=== PATIENT | female | born 1975 | race Caucasian/White ===

== ENCOUNTER 2023-03-04 02:11 | Emergency (ER) | payer MEDICAID, SELFPAY ==
--- NOTE | ~2023-03-04 | CT_ITS ---
EXAMINATION: CT HEAD WITHOUT CONTRAST CLINICAL INFORMATION: Headache for 3 hours COMPARISON: None available. TECHNIQUE: Contiguous axial imaging was performed from the skull base to vertex without intravenous administration of contrast. This CT examination was performed using dose optimization techniques as appropriate, variously including the following: *Automated exposure control *Adjustment of mA and/or kV according to patient size (this includes techniques or standardized protocols for targeted exams where dose is matched to indication/reason for exam; i.e. extremities or head) *Use of iterative reconstruction technique DLP: 522 mGy-cm FINDINGS: There is no evidence of acute intracranial hemorrhage or territorial infarction. No abnormal mass-effect or midline shift is seen. Guy to white matter differentiation is well preserved. No extra-axial fluid collections are identified. The ventricles are normal in size. There is no abnormal attenuation within the brain parenchyma. The osseous structures and soft tissues are normal. The mastoid air cells and visualized portions of the paranasal sinuses are well-aerated. CT/CT head/brain wo IV con IMPRESSION: No acute intracranial pathology.
[2023-03-04 02:23] VITALS: BP 153/112; BP 168/104; PULSE 94; PULSE 96; RESP 18; O2SAT 97; BMI 25.6
[2023-03-04 02:57] VITALS: BP 186/102; PULSE 103; RESP 16; O2SAT 95
[2023-03-04 02:57] LABS: Glucose, Whole Blood 470 mg/dL (60-115)
--- NOTE | 2023-03-04 03:25 | ED_ITS ---
HPI - Headache General Chief Complaint: Headache Stated Complaint: LALA,HYPERVENTILATING PER EMS Time Seen by Provider: 03/04/23 03:10 Source: patient Mode of arrival: ambulatory Limitations: no limitations History of Present Illness HPI Narrative: 47-year-old female with history of hypertension, diabetes mellitus myocardial infarction who presents emergency department for evaluation of headache. Patient states she was taking shower around 21:00 hours when she had a sudden onset of right-sided numbness and loss of vision in her right eye. She states she then developed a left-sided headache. She states that the numbness and visual change resolved but the headache has persisted. She describes the headache as a constant, throbbing sensation which is 10/10. She states she had a similar presentation April 2022 when she was in the [facility], she states she was told that she had a Tylenol overdose and then a heart attack while she was in the hospital. She denied fever, chills, stiff neck, chest pain, shortness of breath. She does have nausea but no vomiting. Patient states she takes metformin 1000 mg once a day for her diabetes but does not check her sugar on a regular basis. Patient's point of care glucose was 470. Related Data Previous Rx's Medication Instructions Recorded [id number]-hbffjylbevxqb-mipyqbam 250 2 tab PO Q6H PRN headache #20 tabs 03/04/23 mg-250 mg-65 mg tablet (Excedrin Migraine) diphenhydramine HCl 25 mg capsule 50 mg (2 x 25 mg) PO Q6H PRN 03/04/23 headache, nausea, vomiting #30 caps metoclopramide HCl 10 mg tablet 10 mg PO Q6H PRN nausea and 03/04/23 (Reglan) vomiting #14 tabs Allergies Allergy/AdvReac Type Severity Reaction Status Date / Time No Known Allergies Allergy Verified 03/04/23 02:51 Review of Systems 2 Review of Systems: Yes all other systems are reviewed and are negative [facility] Past Medical History [facility] Narrative: Past medical history: Diabetes mellitus, hypertension, myocardial infarction. Social history: She denies tobacco, alcohol and drug use. Social History Social History Advance Directives: No Advance Directives Information Provided: Yes Physical Exam 2 Vital Signs: Vital Signs: Last Vital Signs Temp 98.4 F 03/04/23 06:08 Pulse 76 03/04/23 06:08 Resp 17 03/04/23 06:08 BP 133/65 03/04/23 06:08 Pulse Ox 98 03/04/23 06:08 O2 Del Method Room Air 03/04/23 06:08 BMI result Body Mass Index 25.6 Vital signs revealed an elevated pulse of 103, elevated blood pressure of 186/102 exam General: Awake, patient appears to be in distress secondary to her headache Head: Normocephalic, atraumatic, no tenderness palpation over her temporal region EENT: PERRL, Lids normal, sclera normal, conjunctiva normal, nose normal , ears normal, throat without erythema or exudates Neck: Supple, no adenopathy, no trachea midline or C-spine tenderness Lung: breath sounds symmetric, no wheezing, rales or rhonchi Chest: symmetric movement, nontender Heart: regular rate and rhythm, normal S1, S2 no murmurs or rubs Abdomen: soft, non-tender, nondistended, normal bowel sounds Back: no vertebral tenderness, no CVAT Extremities: no deformities, moves all extremities symmetrically Skin: no rashes, no lesion, normal color and warmth Neuro: Awake, alert, oriented, normal speech, cranial nerves intact, moves all extremities symmetrically Psych: Pleasant, cooperative Medications Administered Discontinued Medications Generic Name Dose Route Start Last Admin Trade Name Freq PRN Reason Stop Dose Admin Diphenhydramine HCl 50 mg 03/04/23 03:24 03/04/23 04:03 Diphenhydramine Hcl 50 Mg/Ml Vial IVPUSH 03/04/23 03:25 50 mg ONCE STA Administration Sodium Chloride 1,000 mls @ 999 mls/hr 03/04/23 03:12 03/04/23 05:34 Ns IV 03/04/23 04:12 Infused .Q1H1M STA Infusion Insulin Human Regular 10 unit 03/04/23 05:05 03/04/23 05:36 Insulin Regular, Human 100 Unit/Ml 3 Ml Vial IVPUSH 03/04/23 05:06 10 unit ONCE ONE Administration Metoclopramide HCl 10 mg 03/04/23 03:24 03/04/23 04:03 Metoclopramide Hcl 10 Mg/2 Ml Vial IVPUSH 03/04/23 03:25 10 mg ONCE STA Administration Morphine Sulfate 4 mg 03/04/23 03:24 03/04/23 04:03 Morphine Sulfate 4 Mg/Ml Cartridge IVPUSH 03/04/23 03:25 4 mg ONCE STA Administration Protocol Medical Decision Making Medical Decision Making [facility] Narrative: 47-year-old female with history of diabetes mellitus hypertension, myocardial infarction who presents emergency department for evaluation of headache that came on suddenly at 21:30 hours while she was taking shower. She states the headache was preceded by right-sided body numbness with loss of vision in right eye. The headache is been a constant left-sided throbbing sensation associated with nausea and is 10/10 . Patient's visual change and numbness on the right side of her body is resolved. She states she had a similar episode April 2023 when she was in the state [facility]. physical examination did reveal an elevated pulse and elevated blood pressure otherwise exam was unremarkable pain. Following evaluation was ordered by me: CBC, CMP, CRP, ESR, lipase, PT / INR, PTT, CT scan of the brain without IV contrast. Patient was ordered to get normal saline x1 L, morphine 4 mg IV, Reglan 10 mg IV and Benadryl 50 mg IV 05:10 patient's point of care glucose was elevated at 455 therefore She was given 2 L of normal saline IV and 10 units of regular insulin IV. Point of care glucose is now 300. patient's headache resolved with the above treatment. Patient was advised to follow-up with her PCP to discuss further management of her hyperglycemia. her headache is most likely a migraine-like headache she will be started on the following headache regimen: Excedrin migraine 2 pills, Benadryl 50 mg and Reglan 10 mg every 6 hours as needed for headache she was given printed and verbal instructions and discharged home. Differential Diagnosis Differential Diagnoses: The differential diagnosis associated with the presentation includes differential diagnosis includes was not limited to stroke, intracranial hemorrhage, giant cell arteritis, migraine headache, electrolyte abnormality, anemia, Admission/Observation Consideration of admission/observation: Escalation of care including admission/observation considered Lab Data MDM Lab Attestation statement: I reviewed the patient's lab results. my independent interpretation patient's laboratory evaluation as follows: Unremarkable except for an elevated glucose of 455 03/04/23 04:28 03/04/23 04:28 Labs: Lab Results 03/04/23 03/04/23 Range/Units 02:53 04:28 WBC 9.4 (4.8-10.8) X10*3/uL RBC 4.69 (4.20-5.50) X10*6/uL Hgb 13.8 (12.0-16.0) g/dl Hct 40.5 (37.0-47.0) % MCV 86.4 (80.0-98.0) fL MCH 29.4 (27.0-33.0) pg MCHC 34.1 (31.0-35.0) g/dl RDW 12.5 (11.0-16.0) % Plt Count 229 (160-400) X10*3/uL MPV 11.7 (9.4-12.3) fL Immature Gran % (Auto) 0.2 (0.0-0.4) % Neut % (Auto) 80.4 H (45-73) % Lymph % (Auto) 11.9 L (20-40) % [place] % (Auto) 6.4 (2-11) % Eos % (Auto) 0.9 (0-4) % Baso % (Auto) 0.2 (0-2) % Lymph # (Auto) 1.1 L (1.2-4.9) X10*3/uL [place] # (Auto) 0.6 (0.1-1.2) X10*3/uL Eos # (Auto) 0.1 (0.0-0.4) X10*3/uL Baso # (Auto) 0.0 (0.0-0.2) X10*3/uL Abs Immat Gran (auto) 0.02 (0.00-0.03) X10*3/uL Absolute Neuts (auto) 7.6 (2.0-8.3) x10*3/uL Absolute Nucleated RBC 0.000 (0.0-0.012) X10*3/uL Nucleated RBC % (auto) 0.0 (0.0-0.2) /100WBC ESR 5 (0-20) MM/HR PT 10.7 L (11.1-13.3) SEC INR 0.9 (0.9-1.1) APTT 28.2 (26.0-36.4) SEC Sodium 133 L (135-145) mmol/L Potassium 3.9 (3.3-5.1) mmol/L Chloride 101 (96-108) mmol/L Carbon Dioxide 20 L (22-29) mmol/L Anion Gap 16 (12-20) BUN 13 (9-16) mg/dL Creatinine 0.94 (0.5-1.4) mg/dL Estim Creat Clear Calc 66.1 Estimated GFR > 60 POC Glucose 470 H* (60-115) mg/dL Random Glucose 455 H* (60-115) mg/dL Calcium 9.0 (8.4-10.2) mg/dL Total Bilirubin 0.3 (0.0-1.0) mg/dL AST 13 (5-31) U/L ALT 15 (0-31) U/L Alkaline Phosphatase 129 H (39-117) U/L C-Reactive Protein 0.55 H (< or = 0.50) mg/dL Total Protein 6.4 L (6.5-8.0) g/dL Albumin 3.4 L (3.5-5.0) g/dL Lipase 34 (8-78) U/L Independent Interpretation I performed an independent interpretation of an: CT Scan Interpretation: CT head/brain wo IV con IMPRESSION: No acute intracranial pathology. Dictated By: Tang Gtz MD Radiology Impression Discussion of test interpretation with radiology: I have reviewed the radiologist's reading. Radiologist Impression: CT head/brain wo IV con IMPRESSION: No acute intracranial pathology. Dictated By: Tang Gtz MD Prescription Management I considered prescription management with: Other ( Migraine medications) Chronic Conditions Patient?s care impacted by: Diabetes Discharge Plan Discharge Clinical Impression: Acute hyperglycemia, Acute dehydration Migraine Qualifiers: Migraine type: unspecified Status migrainosus presence: without status migrainosus Intractability: not intractable Qualified Code(s): G43.909 - Migraine, unspecified, not intractable, without status migrainosus Patient Disposition: Home, Self-Care Instructions: Diabetic Hyperglycemia (ED) Additional Instructions: your blood work was unremarkable except for an elevated blood sugar of 470. You need to stay on a diabetic diet, increase your fluid intake and take your metformin as prescribed by your providers. It is important that you follow-up with your doctor to get further treatment of your diabetes. The CT scan of your head was normal which is reassuring. Your headache symptoms are consistent with a migraine headache. I want you to take the following 3 medications together every 6 hours as needed for headache, nausea or vomiting. Reglan (metoclopramide) in 10 mg, 1 pill Benadryl 25 mg, 2 pills Excedrin migraine, 2 pills. After you take these medications, lie down in a dark quiet room and try to fall asleep. These medications will make you sleepy, do not drive or work after taking these medications. Follow-up with your doctor in 2 days. Please return to the emergency department if your symptoms get worse or if you develop any symptoms that are concerning to you. Prescriptions: New diphenhydramine HCl 25 mg capsule 50 mg PO Q6H PRN (Reason: headache, nausea, vomiting) Qty: 30 0RF metoclopramide HCl [Reglan] 10 mg tablet 10 mg PO Q6H PRN (Reason: nausea and vomiting) Qty: 14 0RF Excedrin Migraine 250-250-65 mg tablet 2 tab PO Q6H PRN (Reason: headache) Qty: 20 0RF
[2023-03-04] MEDS: 0.9 % Sodium Chloride 1,000 ML 999 ML IV ×2 (03:45→06:34)
[2023-03-04] MEDS: Metoclopramide HCl 10 MG/2 ML VIAL IVPUSH (04:03)
[2023-03-04] MEDS: Morphine Sulfate 4 MG/ML CARTRIDGE IVPUSH (04:03)
[2023-03-04] MEDS: diphenhydrAMINE HCL 50 MG/ML VIAL IVPUSH (04:03)
[2023-03-04 04:32] LABS: MANUAL DIFF FLAG NO
[2023-03-04 04:33] LABS: Basophils Percent Auto 0.2 % (0-2); Eosinophils Absolute Auto 0.1 X10*3/uL (0.0-0.4); Eosinophils Percent Auto 0.9 % (0-4); Hematocrit 40.5 % (37.0-47.0); Hemoglobin 13.8 g/dl (12.0-16.0); Imm Gran Abs Auto 0.02 X10*3/uL (0.00-0.03); Imm Gran Pct Auto 0.2 % (0.0-0.4); Lymphocytes Absolute Auto 1.1 X10*3/uL (1.2-4.9); Lymphocytes Percent Auto 11.9 % (20-40); Mean Corpuscular HGB Conc 34.1 g/dl (31.0-35.0); Mean Corpuscular Hemoglobin 29.4 pg (27.0-33.0); Mean Corpuscular Volume 86.4 fL (80.0-98.0); Mean Platelet Volume 11.7 fL (9.4-12.3); Monocytes Absolute Auto 0.6 X10*3/uL (0.1-1.2); Monocytes Percent Auto 6.4 % (2-11); Neutrophils Absolute Auto 7.6 x10*3/uL (2.0-8.3); Neutrophils Percent Auto 80.4 % (45-73); Platelet Count 229 X10*3/uL (160-400); Red Blood Count 4.69 X10*6/uL (4.20-5.50); Red Cell Distribution Width 12.5 % (11.0-16.0); White Blood Count 9.4 X10*3/uL (4.8-10.8)
[2023-03-04 04:39] LABS: INTERNATIONAL NORM RATIO 0.9 (0.9-1.1); Prothrombin Time 10.7 SEC (11.1-13.3)
[2023-03-04 04:42] LABS: Partial Thromboplastin Time 28.2 SEC (26.0-36.4)
[2023-03-04 04:54] LABS: Alanine Aminotransferase 15 U/L (0-31); Albumin Level 3.4 g/dL (3.5-5.0); Alkaline Phosphatase 129 U/L (39-117); Anion Gap 16 (12-20); Aspartate Amino Transferase 13 U/L (5-31); Bilirubin Total 0.3 mg/dL (0.0-1.0); Blood Urea Nitrogen 13 mg/dL (9-16); C Reactive Protein 0.55 mg/dL (< or = 0.50); Carbon Dioxide 20 mmol/L (22-29); Chloride 101 mmol/L (96-108); Creatinine Clr Calc Pharmacy 66.1; Estimated Glomerular Filt Rate > 60; Glucose Random 455 mg/dL (60-115); Lipase 34 U/L (8-78); Potassium 3.9 mmol/L (3.3-5.1); Sodium 133 mmol/L (135-145); Total Protein 6.4 g/dL (6.5-8.0)
[2023-03-04 05:12] LABS: Erythrocyte Sedimentation Rate 5 MM/HR (0-20)
[2023-03-04] MEDS: Insulin Regular, Human 100 UNIT/ML 3 ML VIAL 10 UNIT IVPUSH (05:36)
[2023-03-04 06:08] VITALS: BP 133/65; PULSE 76; RESP 17; TEMP 36.9; O2SAT 98
[2023-03-04 06:31] LABS: Glucose, Whole Blood 304 mg/dL (60-115)
== END 2023-03-04 06:49 | disposition home or self-care (01) ==
PROVIDERS: Emergency Provider Emergency Medicine Emergency Medical Services
DX: G43.909 Migraine, unspecified, not intractable, without status migrainosus (principal); E11.65 Type 2 diabetes mellitus with hyperglycemia; E86.0 Dehydration; I10 Essential (primary) hypertension; I25.2 Old myocardial infarction
CPT/HCPCS: 36415; 70450; 80053; 82947; 83690; 85025; 85610; 85652; 85730; 86140; 96361; 96374; 96375; 99284; J1200; J2270; J2765

== ENCOUNTER 2023-03-24 20:05 | Observation (INO) | payer MEDICAID, SELFPAY ==
--- NOTE | ~2023-03-24 | MR_ITS ---
EXAMINATION: MR head/brain wo con CLINICAL INFORMATION: Reason for Exam Intermittent vision changes COMPARISON: CT head 03/24/2023. TECHNIQUE: Unenhanced MRI of the brain. FINDINGS: Abnormal elevated diffusion-weighted signal intensity and associated decreased apparent diffusion coefficient maps is noted in the cortex of the parasagittal left occipital lobe T2 prolongation of the same left occipital lobe cortex is noted on FLAIR and T2 FSE images. No subcortical T2 prolongation is noted in this region. Elsewhere in the brain, a small number scattered generally rounded punctate subcortical and periventricular white matter T2 hyperintensities are identified. Vague T2 hyperintensity over an approximate 5 mm region is noted anteriorly within the left thalamus and a similar focus measuring 4 mm in diameter is present in the posterior right putamen. Mild patchy T2 hyperintensities are present within the srinivas. No lesions of the middle cerebellar peduncles. No perivenular lesions. Susceptibility weighted images demonstrate no evidence of acute or chronic hemorrhage within the brain parenchyma. The craniocervical junction cerebellar tonsils are normal in appearance. Normal appearance of the pituitary. No suspicious marrow abnormalities identified. Normal flow-related signal intensity is visualized in the major intracranial vessels and dural sinuses. MR/MR head/brain wo con IMPRESSION: 1. Cortical signal abnormality within the parasagittal left occipital lobe. These findings may represent either an acute cortical infarct or posterior reversible encephalopathy syndrome (PRES). The abnormalities are confined solely to the occipital cortex with no subcortical extension. The purely cortical involvement is atypical for a territorial infarct. PRES does not typically result in decreased apparent diffusion coefficients but may be due so as is present in the current findings. Overall, findings do not have the typical appearance of a territorial infarct and are suspicious for PRES. Findings could also represent cortical edema related to an otherwise nonvisualized adjacent cortical vein thrombosis or atypical presentation of infection. Regarding imaging management, consider short-term follow-up imaging to assess stability. PRES may demonstrate complete complete resolution of acute imaging findings on follow-up exams. 2. Small number of scattered indeterminate punctate foci of signal alteration (T2 hyperintensity) throughout the brain. This finding may represent mild chronic microangiopathic ischemic changes.
--- NOTE | ~2023-03-24 | CT_ITS ---
EXAMINATION: CT HEAD WITHOUT CONTRAST CLINICAL INFORMATION: Vision changes. COMPARISON: None available. TECHNIQUE: Contiguous axial imaging was performed from the skull base to vertex without intravenous administration of contrast. This CT examination was performed using dose optimization techniques as appropriate, variously including the following: *Automated exposure control *Adjustment of mA and/or kV according to patient size (this includes techniques or standardized protocols for targeted exams where dose is matched to indication/reason for exam; i.e. extremities or head) *Use of iterative reconstruction technique DLP: 542 mGy-cm FINDINGS: The lateral, third and fourth ventricles are normally outlined. The cortical sulci and basal cisterns are normally outlined as well. There is no acute territorial defect, or midline shift. There are two serpiginous areas of hyperdensity left occipital lobe on the left not definitively identified previously. The extra-axial spaces are unremarkable. Calvarium: Intact. Maxillofacial sinuses and mastoids: Clear as visualized. CT/CT head/brain wo IV con IMPRESSION: Two serpiginous areas of hyperdensity left occipital lobe appear to be vascular possibly venous structures. Consider MRI evaluation if the patient's symptoms persist. No other significant abnormality identified.
--- NOTE | ~2023-03-24 | CT_ITS ---
EXAMINATION: Unenhanced CT the head; IV contrast enhanced CT angiography of the head and neck; delayed IV contrast-enhanced CT the head CLINICAL INFORMATION: visual defects COMPARISON: MRI brain 03/25/2023, CT head 02/21/2023, CT head 03/04/2023 TECHNIQUE: Routine unenhanced CT the head with multiple coronal and sagittal reformatted images; IV contrast enhanced CT angiography of the head and neck with multiple 3-D reformatted angiographic thick section MIPS images processed on the technologist workstation under concurrent supervision; delayed IV contrast-enhanced CT the head. Vascular stenoses are made with reference to the NASCET criteria less otherwise specified. This CT examination was performed using dose optimization techniques as appropriate, variously including the following: *Automated exposure control *Adjustment of mA and/or kV according to patient size (this includes techniques or standardized protocols for targeted exams where dose is matched to indication/reason for exam; i.e. extremities or head) *Use of iterative reconstruction technique Intravenous Contrast: Omnipaque 350 100 mL DLP: 1929 mGy-cm FINDINGS: Unenhanced and IV contrast-enhanced CT the head: Vague curvilinear hyperdensity is noted in the parasagittal left occipital lobe (series 3 image 23, series 3 image 26). Findings may represent minimal gyriform petechial hemorrhage or subarachnoid hemorrhage. Findings are stable compared with 02/22/2023. Findings are present in the region of cortical edema noted on the comparison MRI of the brain. Elsewhere, no focal parenchymal lesions of the brain or additional abnormal extra-axial fluid collections are noted. The ventricles and sulci are normal in size and configuration. The orbits and globes are normal in appearance. No significant opacification of the visualized paranasal sinuses, mastoid air cells and middle ear cavities. CT angiography neck: Mild scattered calcific plaques within the transverse aorta. Conventional branching anatomy of the great vessels in relation to the transverse aorta. Mild nonocclusive bilateral carotid bulb calcific atherosclerotic plaques are visualized. The cervical vertebral artery system is patent. The left vertebral artery is dominant. CT angiography head: Mild focal stenosis of the distal basilar artery is present. Nonocclusive segmental calcific plaques are present within the cavernous portions of the internal carotid arteries. Moderate focal stenosis of the proximal A1 segment of the left anterior cerebral artery is visualized. No intracranial occlusions or aneurysms identified. Incidentally visualized lung bases are clear. The thyroid is normal in appearance. No cervical lymphadenopathy. CT/CT angio head neck IMPRESSION: Unenhanced and IV contrast-enhanced CT the head: *Minimal curvilinear hyperdensities within the parasagittal left occipital lobe which may represent gyriform petechial hemorrhage or minimal sulcal subarachnoid hemorrhage. Findings are unchanged compared with 02/22/2023 and are new compared with 03/04/2023. Of note, MRI of the brain 03/24/2023 demonstrated findings suspicious for cortical edema in these same region likely related to posterior reversible encephalopathy syndrome (PRES). Per report, the clinical presentation for the current episode of care included a hypertensive crisis which may have been the etiology of the acute presentation of PRES. CT angiography head: *No intracranial large vessel occlusions. Mild intracranial atherosclerosis including nonocclusive segmental calcific plaque of the cavernous portions of the internal carotid arteries and mild focal stenosis of the distal basilar artery. CT angiography neck: *Mild nonocclusive bilateral carotid bulb mixed calcific and noncalcific nonulcerative plaque. No occlusive lesions within the cervical carotid and vertebral artery systems. This critical result was discussed with Noelle SALINAS by telephone at 03/26/2023 11:55 AM and it was ascertained that the content and urgency of the report was understood at the time of direct communication.
[2023-03-24 20:08] VITALS: BP 228/118; PULSE 94; RESP 16; TEMP 36.4; O2SAT 96; BMI 30.7
--- NOTE | 2023-03-24 20:12 | ED_ITS ---
HPI - General Adult General Chief complaint: General Medical Stated complaint: headache, loss of vision, dizzy Time Seen by Provider: 03/24/23 20:23 Source: patient Mode of arrival: ambulatory Limitations: language barrier ([place]agu[place] speaking only, automotive parts interpreter used) History of Present Illness HPI narrative: 47-year-old female with a past medical history of hypertension, diabetes mellitus, myocardial infarction, who presents emergency department for evaluation of intermittent visual change in her right eye. Patient states that she has been seeing bright lights in the peripheral area of her right eye which has been intermittent and will resolved but come back. She states that prior to coming to the emergency department she again developed bright lights in the peripheral vision of her right eye only with no blurred vision. She also states she is feeling dizzy and feels unsteady. She also denied headache. Patient states that she takes metformin for her diabetes and lisinopril for her hypertension, she was not compliant with this medication for 1-2 days but states she restarted medicine today. Patient has noted increased urinary frequency and increased thirst but denies dysuria. The patient was seen in the emergency department by me on 03/04/2023 for headache with right-sided body numbness and loss of vision in her right eye. At that ED visit the patient was diagnosed with migraine headache, dehydration and hyperglycemia with a glucose of 470. Patient's workup at that time did include a CT scan of the brain which was negative. Related Data Previous Rx's Medication Instructions Recorded dnbevij-camijvkhgtmjb-enupzrxl 250 2 tab PO Q6H PRN headache #20 tabs 03/04/23 mg-250 mg-65 mg tablet (Excedrin Migraine) diphenhydramine HCl 25 mg capsule 50 mg (2 x 25 mg) PO Q6H PRN 03/04/23 headache, nausea, vomiting #30 caps metoclopramide HCl 10 mg tablet 10 mg PO Q6H PRN nausea and 03/04/23 (Reglan) vomiting #14 tabs Allergies Allergy/AdvReac Type Severity Reaction Status Date / Time No Known Allergies Allergy Verified 03/04/23 02:51 Review of Systems 2 Review of Systems: Yes all other systems are reviewed and are negative [facility] Past Medical History [facility] Narrative: Past medical history: Diabetes mellitus, hypertension, myocardial infarction, migraine headache. Surgical history: Cholecystectomy. Social history: She denies tobacco, alcohol and drug use. Social History Social History Smoked in Last 30 Days: No Use of substances other than those prescribed or required for medical reasons: No Advance Directives: No Advance Directives Information Provided: No Patient : No Physical Exam ED Vital Signs: Vital Signs - 24 hr 03/24/23 20:08 03/24/23 20:38 03/24/23 21:59 Temperature 97.6 F 97.9 F 97.9 F Pulse Rate 94 78 83 Respiratory Rate 16 21 H 22 H Blood Pressure 228/118 H 223/130 H 171/88 H Pulse Oximetry 96 99 97 Oxygen Delivery Method Room Air Room Air Room Air BMI result Body Mass Index 30.7 Vital signs initially revealed an elevated systolic and diastolic blood pressure with improved over time Exam General: Awake, alert in no distress Head: Normocephalic, atraumatic EENT: PERRL, Lids normal, sclera normal, conjunctiva normal, nose normal , ears normal, throat without erythema or exudates Neck: Supple, no adenopathy, no trachea midline or C-spine tenderness Lung: breath sounds symmetric, no wheezing, rales or rhonchi Chest: symmetric movement, nontender Heart: regular rate and rhythm, normal S1, S2 no murmurs or rubs Abdomen: soft, non-tender, nondistended, normal bowel sounds Back: no vertebral tenderness, no CVAT Extremities: no deformities, moves all extremities symmetrically Skin: no rashes, no lesion, normal color and warmth Neuro: Awake, alert, oriented, normal speech, cranial nerves intact, moves all extremities symmetrically Psych: Pleasant, cooperative Course Course Course Narrative: This is an RME: Additional HPI, ROS, PE not included below will be deferred to primary provider. Patient is a 47 year old female reporting right peripheral vision loss x 2 days, seeing flashing light, denies eye pain or trauma. Dizziness described as feeling off balance. Symptoms worsening since onset. reports that she initially thought this was a side effect of the medications she was prescribed 1 week ago, does not recall the name. seen in the emergency department 03/04/2023 with a similar presentation sudden onset of vision loss to the right eye, although she had a headache at that time which she denies currently. had a CT of the head which was unremarkable. She was prescribed Benadryl, Reglan, and Excedrin migraine. She is noted to be hypertensive 228/118 Plan: patient brought back to main ED Medications Administered Discontinued Medications Generic Name Dose Route Start Last Admin Trade Name Charly PRN Reason Stop Dose Admin Diphenhydramine HCl 50 mg 03/24/23 21:27 03/24/23 21:50 Diphenhydramine Hcl 50 Mg/Ml Vial IVPUSH 03/24/23 21:28 50 mg ONCE STA Administration Sodium Chloride 1,000 mls @ 999 mls/hr 03/24/23 21:27 03/24/23 21:49 Ns IV 03/24/23 22:27 999 mls/hr .Q1H1M STA Administration Sodium Chloride 1,000 mls @ 999 mls/hr 03/24/23 21:29 03/24/23 21:50 Ns IV 03/24/23 22:29 999 mls/hr .Q1H1M STA Administration Insulin Human Regular 10 unit 03/24/23 21:27 03/24/23 21:50 Insulin Regular, Human 100 Unit/Ml 3 Ml Vial IVPUSH 03/24/23 21:28 10 unit ONCE ONE Administration Ketorolac Tromethamine 15 mg 03/24/23 21:27 03/24/23 21:50 Ketorolac Tromethamine 15 Mg/Ml Vial IVPUSH 03/24/23 21:28 15 mg ONCE STA Administration Metoclopramide HCl 10 mg 03/24/23 21:27 03/24/23 21:50 Metoclopramide Hcl 10 Mg/2 Ml Vial IVPUSH 03/24/23 21:28 10 mg ONCE STA Administration Medical Decision Making Medical Decision Making [facility] Narrative: 47-year-old female with a past medical history of hypertension, diabetes mellitus, myocardial infarction, who presents emergency department for evaluation of intermittent bright lights in the peripheral vision of her right eye which is been on off for several days, dizzy and feels unsteady. She also denied headache. Patient states that she takes metformin for her diabetes and lisinopril for her hypertension, she was not compliant with this medication for 1-2 days but states she restarted medicine today. Patient has noted increased urinary frequency and increased thirst but denies dysuria. Patient has similar presentation on 03/04/2023 and was diagnosed with hyperglycemia and migraine headache. Patient's physical examination initially did reveal an elevated systolic and diastolic blood pressures which have improved over time. Patient's physical examination was unremarkable. Following evaluation was ordered: CBC, CMP, urinalysis. At this time, I suspect the patient's visual changes are consistent with an ocular migraine. Patient also had an elevated point of care glucose greater than 500. Patient was ordered to get normal saline IV x2 L and is 10 units IV. Patient's point of care glucose will be repeated 1 hour. Patient's ocular migraine was treated with Benadryl 50 mg IV, Toradol 15 mg IV and regular and 10 units IV. 22:48 Patient is feeling better after the above treatment. I did discuss the patient's presentation with the covering hospitalist, Dr. Nielsen and he will admit the patient for further treatment. Differential Diagnosis Differential Diagnoses: The differential diagnosis associated with the presentation includes Differential diagnosis includes was not limited to hyperglycemia, dehydration, ocular migraine Admission/Observation Consideration of admission/observation: Escalation of care including admission/observation considered Lab Data MDM Lab Attestation statement: I reviewed the patient's lab results. My interpretation patient's laboratory evaluation is as follows: CBC was normal. Glucose elevated 595, alk-phos elevated 154, 03/24/23 20:53 03/24/23 20:53 Labs: Lab Results 03/24/23 03/24/23 Range/Units 20:33 20:53 WBC 6.4 (4.8-10.8) X10*3/uL RBC 4.45 (4.20-5.50) X10*6/uL Hgb 13.1 (12.0-16.0) g/dl Hct 38.3 (37.0-47.0) % MCV 86.1 (80.0-98.0) fL MCH 29.4 (27.0-33.0) pg MCHC 34.2 (31.0-35.0) g/dl RDW 12.2 (11.0-16.0) % Plt Count 272 (160-400) X10*3/uL MPV 11.2 (9.4-12.3) fL Immature Gran % (Auto) 0.3 (0.0-0.4) % Neut % (Auto) 70.3 (45-73) % Lymph % (Auto) 20.3 (20-40) % [place] % (Auto) 6.6 (2-11) % Eos % (Auto) 2.0 (0-4) % Baso % (Auto) 0.5 (0-2) % Lymph # (Auto) 1.3 (1.2-4.9) X10*3/uL [place] # (Auto) 0.4 (0.1-1.2) X10*3/uL Eos # (Auto) 0.1 (0.0-0.4) X10*3/uL Baso # (Auto) 0.0 (0.0-0.2) X10*3/uL Abs Immat Gran (auto) 0.02 (0.00-0.03) X10*3/uL Absolute Neuts (auto) 4.5 (2.0-8.3) x10*3/uL Absolute Nucleated RBC 0.000 (0.0-0.012) X10*3/uL Nucleated RBC % (auto) 0.0 (0.0-0.2) /100WBC Sodium 133 L (135-145) mmol/L Potassium 3.8 (3.3-5.1) mmol/L Chloride 98 (96-108) mmol/L Carbon Dioxide 25 (22-29) mmol/L Anion Gap 14 (12-20) BUN 14 (9-16) mg/dL Creatinine 1.04 (0.5-1.4) mg/dL Estim Creat Clear Calc 65.3 Estimated GFR 57 POC Glucose 504 H* (60-115) mg/dL Random Glucose 595 H* (60-115) mg/dL Calcium 9.2 (8.4-10.2) mg/dL Total Bilirubin 0.2 (0.0-1.0) mg/dL AST 12 (5-31) U/L ALT 12 (0-31) U/L Alkaline Phosphatase 154 H (39-117) U/L Total Protein 7.0 (6.5-8.0) g/dL Albumin 3.8 (3.5-5.0) g/dL Critical Care Time Critical Care Time Critical Care Time: Yes Total Critical Care Time: 35 Attestation: Critical Care: The patient was critically ill with a high probability of imminent or life threatening deterioration. I spent greater than 30 minutes of discontinuous time evaluating the patient,delivering critical care at the bedside, discussing and evaluating pertinent data with consultants. Critical care time does not include time spent performing separately billable procedures or teaching. Total time spent performing critical care was 45 minutes. Discharge Plan Discharge Patient Disposition: Admitted As Inpatient Prescriptions: No Action diphenhydramine HCl 25 mg capsule 50 mg PO Q6H PRN (Reason: headache, nausea, vomiting) Qty: 30 0RF metoclopramide HCl [Reglan] 10 mg tablet 10 mg PO Q6H PRN (Reason: nausea and vomiting) Qty: 14 0RF Excedrin Migraine 250-250-65 mg tablet 2 tab PO Q6H PRN (Reason: headache) Qty: 20 0RF
[2023-03-24 20:38] VITALS: BP 223/130; PULSE 78; RESP 21; TEMP 36.6; O2SAT 99
[2023-03-24 20:43] LABS: Glucose, Whole Blood 504 mg/dL (60-115)
--- NOTE | 2023-03-24 20:56 | PC.NURSE ---
Pt aox4 reporting dizziness x 1 week. Reports right eye vision change with flourescent lights at time. Pt reports not taking any medications since yesterday as pt was not feeling well. Current POC in the 500's, BP 204/103. Denies chest pain, sob, headache, N/V/D. NSR on monitor with HR 80. 20G IV line established on the R FA. Labs drawn and sent. made aware.
[2023-03-24 20:59] LABS: MANUAL DIFF FLAG NO
[2023-03-24 21:00] LABS: Basophils Percent Auto 0.5 % (0-2); Eosinophils Absolute Auto 0.1 X10*3/uL (0.0-0.4); Hematocrit 38.3 % (37.0-47.0); Hemoglobin 13.1 g/dl (12.0-16.0); Imm Gran Abs Auto 0.02 X10*3/uL (0.00-0.03); Imm Gran Pct Auto 0.3 % (0.0-0.4); Lymphocytes Absolute Auto 1.3 X10*3/uL (1.2-4.9); Lymphocytes Percent Auto 20.3 % (20-40); Mean Corpuscular HGB Conc 34.2 g/dl (31.0-35.0); Mean Corpuscular Hemoglobin 29.4 pg (27.0-33.0); Mean Corpuscular Volume 86.1 fL (80.0-98.0); Mean Platelet Volume 11.2 fL (9.4-12.3); Monocytes Absolute Auto 0.4 X10*3/uL (0.1-1.2); Monocytes Percent Auto 6.6 % (2-11); Neutrophils Absolute Auto 4.5 x10*3/uL (2.0-8.3); Neutrophils Percent Auto 70.3 % (45-73); Platelet Count 272 X10*3/uL (160-400); Red Blood Count 4.45 X10*6/uL (4.20-5.50); Red Cell Distribution Width 12.2 % (11.0-16.0); White Blood Count 6.4 X10*3/uL (4.8-10.8)
[2023-03-24 21:20] LABS: Alanine Aminotransferase 12 U/L (0-31); Albumin Level 3.8 g/dL (3.5-5.0); Alkaline Phosphatase 154 U/L (39-117); Anion Gap 14 (12-20); Aspartate Amino Transferase 12 U/L (5-31); Bilirubin Total 0.2 mg/dL (0.0-1.0); Blood Urea Nitrogen 14 mg/dL (9-16); Calcium 9.2 mg/dL (8.4-10.2); Carbon Dioxide 25 mmol/L (22-29); Chloride 98 mmol/L (96-108); Creatinine Clr Calc Pharmacy 65.3; Estimated Glomerular Filt Rate 57; Glucose Random 595 mg/dL (60-115); Potassium 3.8 mmol/L (3.3-5.1); Sodium 133 mmol/L (135-145)
--- NOTE | 2023-03-24 21:28 | ECG_ITS ---
Test Reason : HTN Blood Pressure : / mmHG Vent. Rate : 083 BPM Atrial Rate : 083 BPM P-R Int : 122 ms QRS Dur : 076 ms QT Int : 376 ms P-R-T Axes : -12 -03 -11 degrees QTc Int : 441 ms Normal sinus rhythm Minimal voltage criteria for LVH, may be normal variant ( R in aVL ) ST elevation in Septal leads Abnormal ECG No previous ECGs available Referred By: [place] Electronically Signed By:JONE RODGERS MD
[2023-03-24] MEDS: 0.9 % Sodium Chloride 1,000 ML 999 ML IV ×2 (21:49→21:50)
[2023-03-24] MEDS: Metoclopramide HCl 10 MG/2 ML VIAL IVPUSH (21:50)
[2023-03-24] MEDS: diphenhydrAMINE HCL 50 MG/ML VIAL IVPUSH (21:50)
[2023-03-24] MEDS: Insulin Regular, Human 100 UNIT/ML 3 ML VIAL 10 UNIT IVPUSH (21:50)
[2023-03-24] MEDS: Ketorolac Tromethamine 15 MG/ML VIAL IVPUSH (21:50)
[2023-03-24 21:59] VITALS: BP 171/88; PULSE 83; RESP 22; TEMP 36.6; O2SAT 97
--- NOTE | 2023-03-24 23:29 | P.HPHOSP_ITS ---
History of Present Illness Date of Service: 03/24/23 Chief Complaint: Intermittent visual changes This is a 47-year-old female with pertinent history of cki-fdzklje-vzgufxaqj diabetes mellitus, essential hypertension presents to the emergency department for evaluation of vision changes. Patient states her symptoms started on the day of presentation. She has been having intermittent visual changes with bright lights and spots in the peripheral vision of her right eye. It is painless and has never happened in the past. Also has associated dizziness. No headache. Patient states he takes metformin for her diabetes and lisinopril for essential hypertension but she has not been compliant with the medications for the last 2 days. No fever or chills. Does have polydipsia and increased urinary frequency. Of note, patient was seen in the ER on 03/04 and discharged with a diagnosis of ocular migraine. No chest discomfort, palpitations, shortness of breath, nausea, vomiting, changes in bowel habits. In the emergency department, blood glucose and pressure found to be elevated Review of Systems 2 Constitutional: Constitutional: Reports fatigue and Reports lethargy Eyes: Eyes: Reports change in vision and Reports floaters Cardiovascular: Cardiovascular: Reports no additional cardiovascular complaints Respiratory: Respiratory: Reports no additional respiratory complaints Gastrointestinal: Gastrointestinal: Reports no additional gastrointestinal complaints Genitourinary: Genitourinary: Reports no additional female genitourinary complaints Endocrine: Endocrine: Reports fatigue PMFSH Medical History Essential hypertension Non-insulin dependent type 2 diabetes mellitus Pertinent family history: No family history of early CAD Social History Patient Tobacco Use Status: Never used Tobacco Meds Allergies Allergy/AdvReac Type Severity Reaction Status Date / Time No Known Allergies Allergy Verified 03/04/23 02:51 Active Medications: Current Medications Acetaminophen (Acetaminophen 325 Mg Tablet) 650 mg PO Q6H PRN PRN Reason: Pain, Mild (Pain Scale 1-3) Dextrose (Dextrose 50 % 25 Gm/50 Ml Syringe) 25 gm IVPUSH Q15M PRN; Protocol PRN Reason: per Hypoglycemia Standing Ord. Enoxaparin Sodium (Enoxaparin Sodium 40 Mg/0.4 Ml Syringe) 40 mg SUBCUT Q24H KATIE Glucose (Glucose Gel 15 Gm Gel..Gram.) 15 gm PO Q15M PRN; Protocol PRN Reason: per Hypoglycemia Standing Ord. Insulin Glargine (Insulin Glargine,Hum.Rec.Anlog 100 Unit/Ml 10 Ml Vial) 15 unit SUBCUT BEDTIME KATIE Insulin Human Lispro (Insulin Lispro 100 Unit/Ml 3 Ml Vial) 0 unit SUBCUT QIDACHS [facility]; Protocol Melatonin (Melatonin 3 Mg Tablet) 6 mg PO BEDTIME PRN PRN Reason: Insomnia Ondansetron HCl (Ondansetron Hcl 4 Mg/2 Ml Vial) 4 mg IVPUSH Q8H PRN PRN Reason: Nausea and Vomiting Sodium Chloride (0.9 % Sodium Chloride Flush 3 Ml Syringe) 3 ml IVFLUSH QSHIFT [facility] Home Medications Medication Instructions Recorded Confirmed Last Taken Type lisinopril 10 mg tablet 10 mg PO DAILY 03/25/23 03/25/23 Unknown History metformin 500 mg tablet 500 mg PO DAILY 03/25/23 03/25/23 Unknown History Physical Exam 2 Vital Signs and Narrative: Vital Signs: Last Vital Signs Temp 97.9 F 03/24/23 21:59 Pulse 83 03/24/23 21:59 Resp 22 H 03/24/23 21:59 BP 171/88 H 03/24/23 21:59 Pulse Ox 97 03/24/23 21:59 O2 Del Method Room Air 03/24/23 21:59 BMI result Body Mass Index 30.7 Middle-aged female lying in bed in no distress Neck supple, no JVD Regular rate and rhythm, S1-S2 heard Regular breath sounds bilaterally, no wheezing or crackles appreciated Abdomen soft nontender, no guarding, no rigidity Patient is awake, alert and oriented to self, place, time and person ; no focal motor deficit Psych: Normal mood No pedal edema Results Labs 03/24/23 20:53 03/24/23 20:53 Labs: Laboratory Results - last 24 hr 03/24/23 03/24/23 20:33 20:53 MCV 86.1 MCH 29.4 MCHC 34.2 RDW 12.2 Plt Count 272 MPV 11.2 Immature Gran % (Auto) 0.3 Neut % (Auto) 70.3 Lymph % (Auto) 20.3 [place] % (Auto) 6.6 Eos % (Auto) 2.0 Baso % (Auto) 0.5 Lymph # (Auto) 1.3 [place] # (Auto) 0.4 Eos # (Auto) 0.1 Baso # (Auto) 0.0 Abs Immat Gran (auto) 0.02 Absolute Neuts (auto) 4.5 Absolute Nucleated RBC 0.000 Nucleated RBC % (auto) 0.0 Anion Gap 14 Estim Creat Clear Calc 65.3 Estimated GFR 57 POC Glucose 504 H* Random Glucose 595 H* Calcium 9.2 Total Bilirubin 0.2 AST 12 ALT 12 Alkaline Phosphatase 154 H Total Protein 7.0 Albumin 3.8 Assessment and Plan (1) Acute hyperglycemia: Status: Acute Plan This is a 47-year-old female with pertinent history of mzx-ckvblot-ttydsofpe diabetes mellitus, essential hypertension presents to the emergency department for evaluation of vision changes. #. Intermittent right eye vision changes: Imaging with hyper density areas in the left occipital lobe. Obtaining MRI and consulting Neurology. #. Uncontrolled insulin-dependent diabetes mellitus with hyperglycemia: Initiating basal plus insulin regimen. A1c pending. Resuscitated with IV crystalloids in the ER #. Hypertensive urgency/emergency: Initial blood pressure 228/118 on admission. Noted elevated blood pressures in the past, will add amlodipine to lisinopril DVT prophylaxis: Well Done Quality Stroke Does the patient have a stroke diagnosis?: No VTE Prior VTE?: No VTE Risk Level:: Medical - moderate - high VTE Device Contraindication: Treatment Not Indicated VTE Drug Contraindication: N/A - Med Ordered
[2023-03-24 23:33] LABS: Glucose, Whole Blood 212 mg/dL (60-115)
[2023-03-24] MEDS: Insulin Glargine,Hum.rec.anlog 100 UNIT/ML 10 ML VIAL 15 UNIT SUBCUT (23:54)
[2023-03-24] MEDS: amLODIPine Besylate 5 MG TABLET PO (23:54)
[2023-03-24] MEDS: Enoxaparin Sodium 40 MG/0.4 ML SYRINGE SUBCUT (23:54)
[2023-03-24] MEDS: 0.9 % Sodium Chloride Flush 3 ML SYRINGE IVFLUSH (23:55)
[2023-03-24 23:59] VITALS: BP 160/80; PULSE 82; RESP 20; TEMP 36.9; O2SAT 98
[2023-03-25] VITALS (7 sets, daily range): BP systolic 129–182; BP diastolic 60–88; PULSE 73–97; RESP 16–20; TEMP 36.3–37; O2SAT 94–98; BMI 30.7
[2023-03-25 00:11] LABS: Appearance Urine Clear; Color Urine Yellow; Glucose Urine UA >=1000 mg/dL (Negative); Leukocyte Esterase Urine Negative (Negative); Nitrite Urine Negative (Negative); Specific Gravity - Urine >= 1.030 (1.005-1.025); UMIC TRIGGER UACC YES; Urine Blood Negative (Negative); Urine Ketones Negative (Negative); Urine Protein Negative (Neg-Trace)
[2023-03-25 00:16] LABS: Bacteria Urine None Seen (None Seen); Hyaline Casts Urine 0-2 /LPF (0-2); RBC Urine 0-2 /HPF (0-2); Squamous Epithelial Cell Urine 0-2 /HPF (0-2); WBC Urine 0-5 /HPF (0-5)
--- NOTE | 2023-03-25 00:49 | PC.NURSE ---
Med req completed
--- NOTE | 2023-03-25 02:31 | PC.NURSE ---
Pt sleeping at the bedside in no apparent distress. Breaths are even regular and unlabored. Pending bed assignment.
[2023-03-25 03:42] LABS: Estimated Average Glucose 289 mg/dL; Hemoglobin A1c % 11.7 % (<6.0)
[2023-03-25 07:12] LABS: MANUAL DIFF FLAG NO
[2023-03-25 07:13] LABS: Basophils Percent Auto 0.3 % (0-2); Eosinophils Absolute Auto 0.1 X10*3/uL (0.0-0.4); Eosinophils Percent Auto 2.3 % (0-4); Hemoglobin 11.9 g/dl (12.0-16.0); Imm Gran Abs Auto 0.01 X10*3/uL (0.00-0.03); Imm Gran Pct Auto 0.2 % (0.0-0.4); Lymphocytes Absolute Auto 1.5 X10*3/uL (1.2-4.9); Lymphocytes Percent Auto 25.3 % (20-40); Mean Corpuscular Hemoglobin 29.7 pg (27.0-33.0); Mean Corpuscular Volume 87.3 fL (80.0-98.0); Mean Platelet Volume 10.9 fL (9.4-12.3); Monocytes Absolute Auto 0.4 X10*3/uL (0.1-1.2); Monocytes Percent Auto 7.1 % (2-11); Neutrophils Absolute Auto 3.9 x10*3/uL (2.0-8.3); Neutrophils Percent Auto 64.8 % (45-73); Platelet Count 258 X10*3/uL (160-400); Red Blood Count 4.01 X10*6/uL (4.20-5.50); Red Cell Distribution Width 12.4 % (11.0-16.0); White Blood Count 6.1 X10*3/uL (4.8-10.8)
[2023-03-25 07:20] LABS: Glucose, Whole Blood 177 mg/dL (60-115)
[2023-03-25] MEDS: 0.9 % Sodium Chloride Flush 3 ML SYRINGE IVFLUSH ×3 (07:23→20:53)
[2023-03-25] MEDS: Insulin Lispro 100 UNIT/ML 3 ML VIAL SUBCUT ×4 (07:23→20:47)
--- NOTE | 2023-03-25 07:24 | PC.NURSE ---
ASSUMED CARE OF THIS PT, NO CONCERNS OVERNIGHT. PT IS A&OX4, BP SLIGHTLY ELEVATED, WELL APPEARING, IN NAD. DENIES ANY PAIN, NAUSEA AT THIS TIME. ENDORSES ONGOING R SIDED PERIPHERAL VISION DEFICIT. MEDICATED PER EMR, PROVIDED WITH BREAKFAST TRAY. WCTM.
[2023-03-25 07:33] LABS: Anion Gap 12 (12-20); Blood Urea Nitrogen 14 mg/dL (9-16); Calcium 8.3 mg/dL (8.4-10.2); Carbon Dioxide 21 mmol/L (22-29); Chloride 109 mmol/L (96-108); Creatinine Clr Calc Pharmacy 101.3; Estimated Glomerular Filt Rate > 60; Glucose Random 214 mg/dL (60-115); Potassium 3.7 mmol/L (3.3-5.1); Sodium 138 mmol/L (135-145)
--- NOTE | 2023-03-25 07:39 | PC.NURSE ---
MRI FORM FILLED OUT AND FAXED
--- NOTE | 2023-03-25 09:09 | PHA.MEDREC ---
Addendum entered by Radha Echavarria [facility] 03/25/23 10:10: Made provider aMx aware Original Note: Pharmacy Consult ? Medication Reconciliation Pharmacy has completed the medication reconciliation. spoke with patient through an wafer fab technician. She confirmed both metformin and lisinopril and said she last took them on . She reports picking them up at [facility] on [address] however there is no claim history to support this. Called [facility] to verify and they report no history of the medications either.
[2023-03-25] MEDS: amLODIPine Besylate 5 MG TABLET PO (09:27)
[2023-03-25] MEDS: metFORMIN HCl 500 MG TABLET PO (09:27)
[2023-03-25] MEDS: lisinopriL 10 MG TABLET PO (09:27)
--- NOTE | 2023-03-25 12:08 | PC.NURSE ---
pt taken to mri
--- NOTE | 2023-03-25 13:04 | P.PNIM_ITS ---
Subjective Subjective Date of Service: 03/25/23 Review of Systems Follow up visual changes still with poor right peripheral vision, seeing colors no other symptoms Physical Exam 2 Vital Signs: Vital Signs: Last Vital Signs Temp 98.0 F 03/25/23 01:21 Pulse 78 03/25/23 07:18 Resp 20 03/25/23 07:18 BP 158/88 H 03/25/23 07:18 Pulse Ox 98 03/25/23 07:18 O2 Del Method Room Air 03/25/23 07:18 BMI result Body Mass Index 30.7 Appearing in no acute distress lung sounds are clear to auscultation heart regular rate rhythm, clear S1, S2 positive bowel sounds, abdomen is soft, nontender neuro patient is alert x3, no focal deficits Objective Data Active Medications Acetaminophen (Acetaminophen 325 Mg Tablet) 650 mg PO Q6H PRN PRN Reason: Pain, Mild (Pain Scale 1-3) Amlodipine Besylate (Amlodipine Besylate 5 Mg Tablet) 5 mg PO DAILY [facility]; Protocol Last Admin: 03/25/23 09:27 Dose: 5 mg Documented By: JOSSE Dextrose (Dextrose 50 % 25 Gm/50 Ml Syringe) 25 gm IVPUSH Q15M PRN; Protocol PRN Reason: per Hypoglycemia Standing Ord. Enoxaparin Sodium (Enoxaparin Sodium 40 Mg/0.4 Ml Syringe) 40 mg SUBCUT BEDTIME [facility] Last Admin: 03/24/23 23:54 Dose: 40 mg Documented By: WILLY Glucose (Glucose Gel 15 Gm Gel..Gram.) 15 gm PO Q15M PRN; Protocol PRN Reason: per Hypoglycemia Standing Ord. Insulin Glargine (Insulin Glargine,Hum.Rec.Anlog 100 Unit/Ml 10 Ml Vial) 15 unit SUBCUT BEDTIME [facility] Last Admin: 03/24/23 23:54 Dose: 15 unit Documented By: WILLY Insulin Human Lispro (Insulin Lispro 100 Unit/Ml 3 Ml Vial) 0 unit SUBCUT QIDACHS [facility]; Protocol Last Admin: 03/25/23 07:23 Dose: 2 unit Documented By: JOSSE Lisinopril (Lisinopril 10 Mg Tablet) 10 mg PO DAILY [facility]; Protocol Last Admin: 03/25/23 09:27 Dose: 10 mg Documented By: HO.CESPEI Melatonin (Melatonin 3 Mg Tablet) 6 mg PO BEDTIME PRN PRN Reason: Insomnia Metformin HCl (Metformin Hcl 500 Mg Tablet) 500 mg PO DAILY [facility] Last Admin: 03/25/23 09:27 Dose: 500 mg Documented By: JOSSE Ondansetron HCl (Ondansetron Hcl 4 Mg/2 Ml Vial) 4 mg IVPUSH Q8H PRN PRN Reason: Nausea and Vomiting Sodium Chloride (0.9 % Sodium Chloride Flush 3 Ml Syringe) 3 ml IVFLUSH QSHIFT [facility] Last Admin: 03/25/23 07:23 Dose: 3 ml Documented By: JOSSE Labs 03/25/23 07:07 03/25/23 07:07 Labs: Laboratory Results - last 24 hr 03/24/23 03/24/23 03/24/23 20:33 20:53 23:25 MCV 86.1 MCH 29.4 MCHC 34.2 RDW 12.2 Plt Count 272 MPV 11.2 Immature Gran % (Auto) 0.3 Neut % (Auto) 70.3 Lymph % (Auto) 20.3 [place] % (Auto) 6.6 Eos % (Auto) 2.0 Baso % (Auto) 0.5 Lymph # (Auto) 1.3 [place] # (Auto) 0.4 Eos # (Auto) 0.1 Baso # (Auto) 0.0 Abs Immat Gran (auto) 0.02 Absolute Neuts (auto) 4.5 Absolute Nucleated RBC 0.000 Nucleated RBC % (auto) 0.0 Anion Gap 14 Estim Creat Clear Calc 65.3 Estimated GFR 57 POC Glucose 504 H* 212 H Random Glucose 595 H* Estimat Average Glucose 289 Hemoglobin A1c % 11.7 H Calcium 9.2 Total Bilirubin 0.2 AST 12 ALT 12 Alkaline Phosphatase 154 H Total Protein 7.0 Albumin 3.8 Urine Color Urine Appearance Urine pH Ur Specific [place] Urine Protein Urine Glucose (UA) Urine Ketones Urine Blood Urine Nitrite Ur Leukocyte Esterase Urine RBC Urine WBC Ur Squamous Epith Cells Urine Bacteria Hyaline Casts 03/24/23 03/25/23 03/25/23 23:57 07:07 07:17 MCV 87.3 MCH 29.7 MCHC 34.0 RDW 12.4 Plt Count 258 MPV 10.9 Immature Gran % (Auto) 0.2 Neut % (Auto) 64.8 Lymph % (Auto) 25.3 [place] % (Auto) 7.1 Eos % (Auto) 2.3 Baso % (Auto) 0.3 Lymph # (Auto) 1.5 [place] # (Auto) 0.4 Eos # (Auto) 0.1 Baso # (Auto) 0.0 Abs Immat Gran (auto) 0.01 Absolute Neuts (auto) 3.9 Absolute Nucleated RBC 0.000 Nucleated RBC % (auto) 0.0 Anion Gap 12 Estim Creat Clear Calc 101.3 Estimated GFR > 60 POC Glucose 177 H Random Glucose 214 H Estimat Average Glucose Hemoglobin A1c % Calcium 8.3 L D Total Bilirubin AST ALT Alkaline Phosphatase Total Protein Albumin Urine Color Yellow Urine Appearance Clear Urine pH 6.0 Ur Specific [place] >= 1.030 H Urine Protein Negative Urine Glucose (UA) >=1000 H Urine Ketones Negative Urine Blood Negative Urine Nitrite Negative Ur Leukocyte Esterase Negative Urine RBC 0-2 Urine WBC 0-5 Ur Squamous Epith Cells 0-2 Urine Bacteria None Seen Hyaline Casts 0-2 Assessment and Plan (1) Non-insulin dependent type 2 diabetes mellitus: Status: Acute (2) Essential hypertension: Status: Acute Plan This is a 47-year-old female with pertinent history of gws-rskawyc-ufenlkbhx diabetes mellitus, essential hypertension presents to the emergency department for evaluation of vision changes. Intermittent right eye vision changes Imaging with hyper density areas in the left occipital lobe. Brain MRI results>PRESS vs stroke Neurology consultation still pending continue bp control Uncontrolled insulin-dependent diabetes mellitus with hyperglycemia ss, ada diet A1C 11.7 Hypertensive urgency/emergency better control Initial blood pressure 228/118 on admission. Noted elevated blood pressures in the past, amlodipine to lisinopril added and will continue DVT prophylaxis: Jonn Attending Dr. Hylton full code Quality Stroke Does the patient have a stroke diagnosis?: No VTE Prior VTE?: No VTE Risk Level:: Medical - moderate - high VTE Device Contraindication: Treatment Not Indicated VTE Drug Contraindication: N/A - Med Ordered
[2023-03-25 13:09] LABS: Glucose, Whole Blood 177 mg/dL (60-115)
[2023-03-25] MEDS: hydrALAZINE HCl 20 MG/ML VIAL 10 MG IVPUSH (15:13)
[2023-03-25 16:10] LABS: Glucose, Whole Blood 215 mg/dL (60-115)
[2023-03-25] MEDS: Acetaminophen 325 MG TABLET 650 MG PO (16:55)
--- NOTE | 2023-03-25 17:03 | PM.EVENT ---
Event Note Date of Service: 03/25/23 Event Note: erythema to face with some mild sob 15 minutes after hydralazine IV, for hypertension. Dose of Benadryl 25mg IV given along with IV pepcid 20 mg. No signs at this time of anaphylaxis. RN to monitor. Time Spent With Patient Time: Total time managing care of this patient today ____ minutes.
[2023-03-25] MEDS: diphenhydrAMINE HCL 50 MG/ML VIAL 25 MG IVPUSH (17:04)
--- NOTE | 2023-03-25 17:24 | PM.NEUROCN ---
History of Present Illness Data of Consult Service Date: 03/25/23 Primary Care Provider: Unknown Physician HPI Reason for consult: Right visual disturbance This is a 47-year-old female who [place] ago, was seen in [place] 2 wks ago with HBP and started on meds. She also has untreated yrl-inomrks-czqbjklcv diabetes mellitus with A1c>11. She presented to the emergency department for evaluation of vision changes. Patient states her symptoms started on the day of presentation. She has been having intermittent visual changes with bright lights and spots in the peripheral vision on the right. It is painless and has never happened in the past. Also has associated dizziness. Mild headache. Patient states she takes metformin for her diabetes and lisinopril for essential hypertension but she has not been compliant with the medications for the last 2 days. No fever or chills. Does have polydipsia and increased urinary frequency. Of note, patient was seen in the ER on 03/04 and discharged with a diagnosis of ocular migraine. No chest discomfort, palpitations, shortness of breath, nausea, vomiting, changes in bowel habits. MRI shows posterior cortical chnages c/w PRES in the left occipital cortex. Her BPwas > 220 systolic. Review of Systems Review of Systems: Follow up visual changes still with poor right peripheral vision, seeing colors no other symptoms Yes all other systems are reviewed and are negative Constitutional: Constitutional: Reports fatigue and Reports lethargy Eyes: Eyes: Reports change in vision and Reports floaters Cardiovascular: Cardiovascular: Reports no additional cardiovascular complaints Respiratory: Respiratory: Reports no additional respiratory complaints Gastrointestinal: Gastrointestinal: Reports no additional gastrointestinal complaints Endocrine: Endocrine: Reports fatigue PMFSH Past Medical History Medical History Essential hypertension Non-insulin dependent type 2 diabetes mellitus Family History Pertinent family history: No family history of early CAD Social History Social History Patient Tobacco Use Status: Never used Tobacco Second Hand Smoke Exposure: No Meds Allergies Allergy/AdvReac Type Severity Reaction Status Date / Time No Known Allergies Allergy Verified 03/04/23 02:51 Active Medications: Current Medications Acetaminophen (Acetaminophen 325 Mg Tablet) 650 mg PO Q6H PRN PRN Reason: Pain, Mild (Pain Scale 1-3) Last Admin: 03/25/23 16:55 Dose: 650 mg Amlodipine Besylate (Amlodipine Besylate 5 Mg Tablet) 5 mg PO DAILY KATIE; Protocol Last Admin: 03/25/23 09:27 Dose: 5 mg Dextrose (Dextrose 50 % 25 Gm/50 Ml Syringe) 25 gm IVPUSH Q15M PRN; Protocol PRN Reason: per Hypoglycemia Standing Ord. Diphenhydramine HCl (Diphenhydramine Hcl 50 Mg/Ml Vial) 25 mg IVPUSH Q4H PRN PRN Reason: Allergic Reaction Enoxaparin Sodium (Enoxaparin Sodium 40 Mg/0.4 Ml Syringe) 40 mg SUBCUT BEDTIME KATIE Last Admin: 03/24/23 23:54 Dose: 40 mg Glucose (Glucose Gel 15 Gm Gel..Gram.) 15 gm PO Q15M PRN; Protocol PRN Reason: per Hypoglycemia Standing Ord. Hydralazine HCl (Hydralazine Hcl 20 Mg/Ml Vial) 10 mg IVPUSH Q4H PRN; Protocol PRN Reason: SBP>180 Last Admin: 03/25/23 15:13 Dose: 10 mg Influenza Virus Vaccine (Flu Vacc [id number](6mos Up)/Pf 0.5 Ml Syringe) 0.5 ml IM .ONCE ONE Stop: 03/26/23 09:01 Insulin Glargine (Insulin Glargine,Hum.Rec.Anlog 100 Unit/Ml 10 Ml Vial) 15 unit SUBCUT BEDTIME KATIE Last Admin: 03/24/23 23:54 Dose: 15 unit Insulin Human Lispro (Insulin Lispro 100 Unit/Ml 3 Ml Vial) 0 unit SUBCUT QIDACHS KATIE; Protocol Last Admin: 03/25/23 16:53 Dose: 4 unit Lisinopril (Lisinopril 10 Mg Tablet) 10 mg PO DAILY KATIE; Protocol Last Admin: 03/25/23 09:27 Dose: 10 mg Melatonin (Melatonin 3 Mg Tablet) 6 mg PO BEDTIME PRN PRN Reason: Insomnia Metformin HCl (Metformin Hcl 500 Mg Tablet) 500 mg PO DAILY [facility] Last Admin: 03/25/23 09:27 Dose: 500 mg Ondansetron HCl (Ondansetron Hcl 4 Mg/2 Ml Vial) 4 mg IVPUSH Q8H PRN PRN Reason: Nausea and Vomiting Sodium Chloride (0.9 % Sodium Chloride Flush 3 Ml Syringe) 3 ml IVFLUSH QSHIFT [facility] Last Admin: 03/25/23 16:55 Dose: 3 ml Home Medications Medication Instructions Recorded Confirmed Last Taken Type lisinopril 10 mg tablet 10 mg PO DAILY 03/25/23 03/25/23 Unknown History metformin 500 mg tablet 500 mg PO DAILY 03/25/23 03/25/23 Unknown History Physical Exam Vital Signs: Vital Signs: Last Vital Signs Temp 98.6 F 03/25/23 15:28 Pulse 83 03/25/23 15:28 Resp 18 03/25/23 15:28 BP 129/60 03/25/23 15:28 Pulse Ox 97 03/25/23 15:28 O2 Del Method Room Air 03/25/23 15:28 BMI result Body Mass Index 30.7 Neuro: Other: Partial right visual field defect , otherwise normal exam, Results Labs 03/25/23 07:07 03/25/23 07:07 Labs: Short CBC 03/24/23 03/25/23 Range/Units 20:53 07:07 WBC 6.4 6.1 (4.8-10.8) X10*3/uL Hgb 13.1 11.9 L (12.0-16.0) g/dl Hct 38.3 35.0 L (37.0-47.0) % Plt Count 272 258 (160-400) X10*3/uL [facility] 03/24/23 03/25/23 20:53 07:07 Sodium 133 L 138 Potassium 3.8 3.7 Chloride 98 109 H Carbon Dioxide 25 21 L BUN 14 14 Creatinine 1.04 0.67 Calcium 9.2 8.3 L D Liver Function 03/24/23 Range/Units 20:53 Total Bilirubin 0.2 (0.0-1.0) mg/dL AST 12 (5-31) U/L ALT 12 (0-31) U/L Alkaline Phosphatase 154 H (39-117) U/L Albumin 3.8 (3.5-5.0) g/dL Urine 03/24/23 Range/Units 23:57 Urine Color Yellow Urine Appearance Clear Urine pH 6.0 (5.0-9.0) Ur Specific [place] >= 1.030 H (1.005-1.025) Urine Protein Negative (Neg-Trace) mg/dL Urine Glucose (UA) >=1000 H (Negative) mg/dL Assessment and Plan (1) PRES (posterior reversible encephalopathy syndrome): Status: Acute Probably related to uncontrolled HBP. Less likely migraine phenomenon or posterior cerebral artery infarct. Recom: control of BP and sugar. Stress compliance. CTA head and neck. Out patient f/ u in 3 wks. (2) Non-insulin dependent type 2 diabetes mellitus: Status: Acute (3) Essential hypertension: Status: Acute Plan This is a 47-year-old female with pertinent history of icg-ixnghkg-kgqozhufs diabetes mellitus, essential hypertension presents to the emergency department for evaluation of vision changes. Intermittent right eye vision changes Imaging with hyper density areas in the left occipital lobe. Brain MRI results>PRESS vs stroke Neurology consultation still pending continue bp control Uncontrolled insulin-dependent diabetes mellitus with hyperglycemia ss, ada diet A1C 11.7 Hypertensive urgency/emergency better control Initial blood pressure 228/118 on admission. Noted elevated blood pressures in the past, amlodipine to lisinopril added and will continue DVT prophylaxis: Lovenox Attending Dr. Hylton full code Procedures Date of Service Date of Service: 03/25/23
[2023-03-25] MEDS: Famotidine/PF 20 MG/2 ML VIAL IVPUSH (17:33)
[2023-03-25 20:45] LABS: Glucose, Whole Blood 286 mg/dL (60-115)
[2023-03-25] MEDS: Enoxaparin Sodium 40 MG/0.4 ML SYRINGE SUBCUT (20:46)
[2023-03-25] MEDS: Insulin Glargine,Hum.rec.anlog 100 UNIT/ML 10 ML VIAL 15 UNIT SUBCUT (20:48)
[2023-03-25] MEDS: Melatonin 3 MG TABLET 6 MG PO (20:53)
[2023-03-26 04:00] VITALS: BP 143/63; PULSE 81; RESP 18; TEMP 37.2; O2SAT 98
[2023-03-26 07:41] LABS: Glucose, Whole Blood 175 mg/dL (60-115)
--- NOTE | 2023-03-26 07:46 | PM.DS ---
DS: Providers Provider Date of Service: 03/26/23 Date of admission: 03/24/23 23:27 Primary care physician: Unknown Physician Consults: 03/25/23 00:57 Consult to Neurology Routine Consulting Provider: [facility] Reason for consultation: vision changes DS: Diagnosis Discharge Diagnosis (1) PRES (posterior reversible encephalopathy syndrome): Status: Acute (2) Non-insulin dependent type 2 diabetes mellitus: Status: Acute (3) Essential hypertension: Status: Acute DS: Summary Hospital Course Hospital Course: This is a 47-year-old female with pertinent history of tpu-wkwzgfj-cfxjbuqtm diabetes mellitus, essential hypertension presents to the emergency department for evaluation of vision changes. Patient states her symptoms started on the day of presentation. She has been having intermittent visual changes with bright lights and spots in the peripheral vision of her right eye. It is painless and has never happened in the past. Also has associated dizziness. No headache. Patient states he takes metformin for her diabetes and lisinopril for essential hypertension but she has not been compliant with the medications for the last 2 days. No fever or chills. Does have polydipsia and increased urinary frequency. Of note, patient was seen in the ER on 03/04 and discharged with a diagnosis of ocular migraine. No chest discomfort, palpitations, shortness of breath, nausea, vomiting, changes in bowel habits. In the emergency department, blood glucose and pressure found to be elevated 47-year-old woman treated for headache and right peripheral visual changes. She reported seeing spotted lights in red white and blue colors. She initially presented her systolic blood pressure was over 200. She recently moved from [place] and is not under the care of a medical provider and had not been taking her medications. MRI showed concern for posterior reversible encephalopathy syndrome. She was seen and evaluated by Neurology who agreed with this assessment. Today patient reported that her symptoms have been improving in her blood pressure is under much better control with lisinopril and amlodipine. She was educated on the importance of good blood pressure control to avoid the same symptoms again. She needs to find a primary care provider for medication adjustments. She was also educated on the importance of blood sugar control as well. She should be checking her blood sugar 4 times a day before meals and documenting to share with her primary care provider for medication adjustments. She will continue on metformin 500 mg daily. her A1c was 11.7 and she should work on bringing this down with medications and diet. During her hospitalization she did have an episode of erythema to her face after a dose of hydralazine for hypertension. This did improve after Benadryl and Pepcid. Therefore she may have this type of reaction with hydralazine again, will list under allergy/ reaction. If symptoms continue or progress she can follow up with Neurology as an outpatient. Time Attestation Discharge coordination time: Greater than 30 minutes Quality: Safe Use of Opioids Does Pt have an Active Cancer Diagnosis on the Problem List?: No Quality: Stroke Does the patient have a stroke diagnosis?: No Physical Exam Vital Signs: Vital Signs: Last Vital Signs Temp 98.9 F 03/26/23 04:00 Pulse 81 03/26/23 04:00 Resp 18 03/26/23 04:00 BP 143/63 H 03/26/23 04:00 Pulse Ox 98 03/26/23 04:00 O2 Del Method Room Air 03/26/23 04:00 BMI result Body Mass Index 30.7 Appearing in no acute distress head is normocephalic atraumatic eyes pupils are PERRLA sclera is anicteric mouth throat mucous membranes are intact and moist neck is supple no lymphadenopathy, no JVD noted lung sounds are clear to auscultation heart regular rate rhythm, clear S1, S2 positive bowel sounds, abdomen is soft, nontender neuro patient is alert x3, no focal deficits DS: Data Data Completed and Pending Labs on day of discharge: Laboratory Results - last 24 hr 03/25/23 03/25/23 03/25/23 13:05 16:00 20:14 POC Glucose 177 H 215 H 286 H 03/26/23 07:37 POC Glucose 175 H Discharge Plan Discharge Anticipated Discharge Date/Time: 03/26/23 07:43 Patient Disposition: Home, Self-Care Discharge Diagnosis: Posterior reversal encephalopathy syndrome Hypertension Diabetes mellitus 2 Referrals: Verna Lawrence MD [Physician] - 1 Week Discharge Medications: New amlodipine 5 mg Tablet 5 mg PO DAILY Qty: 30 0RF Protocol: Hold for SBP< HOLD for SBP < : 90 Continued lisinopril 10 mg Tablet 10 mg PO DAILY Qty: 30 0RF metformin 500 mg Tablet 500 mg PO DAILY Qty: 30 0RF Discharge Orders: Discharge Order (Routine); Ordered 03/26/23 Ordered By: Noelle Santana Diet: Advance to usual diet Activity on Discharge: As tolerated Stand Alone Forms: Patient Portal Discharge page Care Plan Goals: Check blood pressures daily and document to share with primary care provider for medication adjustments Check blood sugars 4 times a day before meals and at bedtime and document to share with primary care provider for medication adjustments Health Concerns: Posterior reversal encephalopathy syndrome Hypertension Diabetes mellitus 2 Plan of Treatment: Follow-up with primary caregiver when appointment available Follow-up with neurologist if symptoms persist Take all medications as prescribed Assessment: See discharge summary
[2023-03-26 08:00] VITALS: BP 155/74; PULSE 78; RESP 18; TEMP 36.6; O2SAT 95
[2023-03-26] MEDS: amLODIPine Besylate 5 MG TABLET PO (08:33)
[2023-03-26] MEDS: lisinopriL 10 MG TABLET PO (08:33)
[2023-03-26] MEDS: 0.9 % Sodium Chloride Flush 3 ML SYRINGE IVFLUSH (08:33)
[2023-03-26] MEDS: metFORMIN HCl 500 MG TABLET PO (08:33)
[2023-03-26] MEDS: Insulin Lispro 100 UNIT/ML 3 ML VIAL SUBCUT ×2 (08:36→12:09)
--- NOTE | 2023-03-26 09:32 | MHC.CM.PN ---
MD order for home, self-care prior to CM interview. CM acknowledge.
[2023-03-26] MEDS: iohexoL 350 MG/ML 100 ML INFUS..BTL 70 ML IV (10:35)
[2023-03-26 11:33] VITALS: BP 152/71; PULSE 70; RESP 20; TEMP 36.8; O2SAT 98
[2023-03-26 11:50] LABS: Glucose, Whole Blood 224 mg/dL (60-115)
--- NOTE | 2023-03-26 12:37 | MHC.CM.PN ---
[facility] PCP list given to Pt's family; Pt does not have a PCP and is looking to get established w/a new MD. Pt in shower, family accepted list for Pt and indicated they will ensure she gets it and sets an appt.
== END 2023-03-26 12:47 | disposition home or self-care (01) ==
LOC: HO.ED 22:55 → HO.EDOVER 23:32 → HO.IMC 03-25 12:18
PROVIDERS: Admitting Provider Student in an Organized Health Care Education/Training Program; Emergency Provider Emergency Medicine Emergency Medical Services; Visit Provider Nurse Practitioner Acute Care
DX: I67.83 Posterior reversible encephalopathy syndrome (principal); I10 Essential (primary) hypertension; H54.7 Unspecified visual loss; E11.65 Type 2 diabetes mellitus with hyperglycemia; I25.2 Old myocardial infarction; Z79.4 Long term (current) use of insulin; Z79.899 Other long term (current) drug therapy; Z23 Encounter for immunization
CPT/HCPCS: 36415; 70450; 70496; 70498; 70551; 80048; 80053; 81001; 82947; 83036; 85025; 90471; 90686; 93005; 96361; 96372; 96374; 96375; 96376; 99222; 99285; J0360; J1200; J1650; J1885; J2765; Q9967

== ENCOUNTER → 2023-03-24 23:27 | Outpatient (BNV) | payer MEDICAID, SELFPAY | PROVIDERS: Admitting Provider Student in an Organized Health Care Education/Training Program; Emergency Provider Emergency Medicine Emergency Medical Services; Visit Provider Student in an Organized Health Care Education/Training Program | DX: I67.83 Posterior reversible encephalopathy syndrome (principal); E11.9 Type 2 diabetes mellitus without complications; I10 Essential (primary) hypertension | CPT/HCPCS: 99222; 99232; 99239 ==

== ENCOUNTER 2024-06-10 11:53 | Outpatient (REF) | payer MEDICAID, SELFPAY ==
[2024-06-10 14:29] LABS: MANUAL DIFF FLAG NO
[2024-06-10 14:35] LABS: Basophils Percent Auto 0.2 % (0-2); Eosinophils Absolute Auto 0.1 X10*3/uL (0.0-0.4); Eosinophils Percent Auto 0.9 % (0-4); Hemoglobin 13.4 g/dl (12.0-16.0); Imm Gran Abs Auto 0.03 X10*3/uL (0.00-0.03); Imm Gran Pct Auto 0.3 % (0.0-0.4); Lymphocytes Absolute Auto 1.1 X10*3/uL (1.2-4.9); Lymphocytes Percent Auto 11.2 % (20-40); Mean Corpuscular HGB Conc 33.5 g/dl (31.0-35.0); Mean Corpuscular Hemoglobin 29.1 pg (27.0-33.0); Mean Platelet Volume 11.3 fL (9.4-12.3); Monocytes Absolute Auto 0.6 X10*3/uL (0.1-1.2); Monocytes Percent Auto 5.7 % (2-11); Neutrophils Absolute Auto 8.3 x10*3/uL (2.0-8.3); Neutrophils Percent Auto 81.7 % (45-73); Platelet Count 401 X10*3/uL (160-400); Red Cell Distribution Width 13.1 % (11.0-16.0); White Blood Count 10.1 X10*3/uL (4.8-10.8)
[2024-06-10 15:14] LABS: Alanine Aminotransferase 21 U/L (0-31); Anion Gap 15 (12-20); Aspartate Amino Transferase 23 U/L (5-31); Bilirubin Total 0.3 mg/dL (0.0-1.0); Blood Urea Nitrogen 16 mg/dL (9-16); Calcium 9.6 mg/dL (8.4-10.2); Carbon Dioxide 21 mmol/L (22-29); Chloride 108 mmol/L (96-108); Cholesterol 132 mg/dL (<200); Estimated Glomerular Filt Rate > 60; Glucose Random 78 mg/dL (60-115); HDL Cholesterol 43 mg/dL (>40); LDL Cholesterol Calculated 65 mg/dL (<100); Magnesium 2.1 mg/dL (1.6-2.6); Potassium 4.1 mmol/L (3.3-5.1); Sodium 140 mmol/L (135-145); Total Protein 7.8 g/dL (6.5-8.0); Triglycerides 124 mg/dL (<150)
[2024-06-10 15:18] LABS: Folate 9.2 ng/mL (> or = 4.0); Vitamin B12 839 pg/mL (200-900)
[2024-06-10 15:28] LABS: TSH reflex Free T4 1.16 uIU/mL (0.32-4.0); Vitamin D 25-OH Total 27.6 ng/mL (>30)
[2024-06-10 15:46] LABS: Alkaline Phosphatase 73 U/L (39-117)
--- OUTSIDE RECORDS SUMMARY | 2024-06-10 16:51 | XMS_ITS | Clinical Summary ---
Author Organization [address] [facility] Address [address] [place] [address] Phone Care Team Providers Care Development Geologist Name Role Phone Sherin Garcia MD Primary Care Provider [phone] Allergies Active Allergy Reactions Criticality Noted Date Comments Lisinopril Itching 05/01/2024 Medications Medication Sig Dispensed Refills Start Date End Date Status aspirin 81 mg EC tabletIndications:ce rebral thromboembolism prevention Take 1 tablet (81 mg total) by mouth 1 (one) time each day. 30 each 05/29/2024 06/28/19 25 Active atorvastatin (LIPITOR) 10 mg tablet Take 1 tablet (10 mg total) by mouth at bedtime. 30 each 05/29/2024 06/28/19 25 Active clopidogreL (Plavix) 75 mg tabletIndications:ce rebral thromboembolism prevention Take 1 tablet (75 mg total) by mouth 1 (one) time each day. 30 each 05/29/2024 06/28/19 25 Active amLODIPine (NORVASC) 10 mg tablet Take 1 tablet (10 mg total) by mouth 1 (one) time each day. 30 each 05/30/2024 06/29/19 25 Active cholecalciferol (VITAMIN D-3) 50 mcg (2,000 unit) tablet Take 1 tablet (2,000 Units total) by mouth 1 (one) time each day. 30 tablet 05/30/2024 06/29/19 25 Active cyanocobalamin (VITAMIN B-12) 1,000 mcg tablet Take 1 tablet (1,000 mcg total) by mouth 1 (one) time each day. 30 each 05/30/2024 06/29/19 25 Active escitalopram (LEXAPRO) 5 mg tablet Take 1 tablet (5 mg total) by mouth 1 (one) time each day. 30 each 05/30/2024 06/29/19 25 Active glipiZIDE (GLUCOTROL) 5 mg tabletIndications:ty pe 2 diabetes mellitus Take 1 tablet (5 mg total) by mouth 1 (one) time each day before breakfast. 30 each 05/30/2024 06/29/19 25 Active magnesium oxide (MAG-OX) 400 mg (241.3 elemental magnesium) tablet Take 1 tablet (400 mg total) by mouth 2 (two) times a day. 60 each 05/29/2024 06/28/19 25 Active metFORMIN (GLUCOPHAGE) 500 mg tabletIndications:ty pe 2 diabetes mellitus Take 1 tablet (500 mg total) by mouth 2 (two) times a day with meals. 60 each 05/29/2024 06/28/19 25 Active aspirin 81 mg EC tablet Take 1 tablet (81 mg total) by mouth 1 (one) time each day. 04/01/2024 05/29/19 25 Discontinued atorvastatin (LIPITOR) 80 mg tablet Take 1 tablet (80 mg total) by mouth at bedtime. 04/01/2024 05/31/19 25 Discontinued(Sto p Taking at Discharge) clopidogreL (Plavix) 75 mg tablet Take 1 tablet (75 mg total) by mouth 1 (one) time each day. 04/01/2024 05/29/19 25 Discontinued lisinopriL (PRINIVIL,ZESTRIL) 10 mg tablet Take 1 tablet (10 mg total) by mouth 1 (one) time each day. 06/14/2022 05/31/19 25 Discontinued(Sto p Taking at Discharge) Active Problems Problem Noted Date Diagnosed Date HTN (hypertension) DM (diabetes mellitus) CVA (cerebral vascular accident) Encounters Date Type Department Care Team Description 05/27/2024 Plan of Care Documentation [facility] [address] [place] [phone] 05/20/2024 Plan of Care Documentation [facility] [address] [place] [phone] 05/13/2024 Plan of Care Documentation [facility] [address] [place] [phone] 05/06/2024 Plan of Care Documentation [facility] [address] [place] [phone] 05/01/2024 Plan of Care Documentation [facility] [address] [place] [address] 04/24/2024 Plan of Care Documentation [facility] [address] [place] [phone] 04/19/2024 5:41 PM EST - 05/31/2024 12:05 PM EST Hospital Encounter [facility] [address] [place] [address] Neida Bailey DO Stroke ([facility]) [I63.9] (Primary Dx) Discharge Disposition: Home or Self Care from Last 3 Months Medical History Medical History Date Comments HTN (hypertension) DM (diabetes mellitus) ([facility]) CVA (cerebral vascular accident) ([facility]) Social History Tobacco Use Types Packs/Day Years Used Date Smoking Tobacco: Never Passive Smoke Exposure: Never Smokeless Tobacco: Never Tobacco Cessation:Counseling Given: No Alcohol Use Standard Drinks/Week Comments Never 0 (1 standard drink = 0.6 oz pur e alcohol) Health Literacy Answer Date Recorded How often do you need to hav e someone help you when you read instructions, pamphlets, or other written material from your doctor or pharmacy? Never 05/30/2024 Caregiver: How often do you need to have someone help you when you read instructions, pamphlets, or other written material from your doctor or pharmacy? Not on file 05/30/2024 Transportation Answer Date Recorded Has the lack of transportati on kept you from meetings, work, or from getting things needed for daily living? No Has the lack of transportati on kept you from medical appointments or from getting medications? No 04/22/2024 Social Isolation Answer Date Recorded How often do you feel lonely or isolated from th ose around you? Never 05/30/2024 Interpersonal Safety Answer Date Record ed Physical Abuse 04/19/2024 Verbal Abuse 04/19/2024 Sex and Gender Information Value Date Recorded Sex Assigned at Not on file Gender Identity Not on file Sexual Orientation Not on file Job Start Date Occupation Industry Not on file Not on file Not on file Obstetrics History Last Filed Vital Signs Vital Sign Reading Time Taken Comments Blood Pressure 134/70 05/31/2024 8:10 AM EST Pulse 61 05/31/2024 8:10 AM EST Temperature 36.7 ??C (98.1 ??F) 05/31/2024 8:10 AM ES T Respiratory Rate 16 05/31/2024 4:32 AM EST Oxygen Saturation 100% 05/31/2024 8:10 AM EST Inhaled Oxygen Concentration - - Weight 69.6 kg (153 lb 6.4 oz) 05/18/2024 9:30 A M EST Height 158 cm (5' 2.21 ) 04/19/2024 10:20 PM EST Body Mass Index 27.87 04/19/2024 10:20 PM EST Plan of Treatment Health Maintenance Due Date Last Done Comments Breast Cancer Screening 1977 Pneumococcal Vaccine: Pediatrics (0 to 5 Years) and At-Risk Patients (6 to 64 Years) (1 of 2 - PCV) 1983 Diabetes: Annual Foot Exam 1987 Diabetes: Annual Retina Eye Exam 1987 DTaP,Tdap,and Td Vaccines (1 - Tdap) 1996 Hepatitis A Vaccines (1 of 2 - Risk 2-dose series) 1996 Hepatitis B Vaccines (1 of 3 - 19+ 3-dose series) 1996 Cervical Cancer Screening: Pap Smear 1998 COVID-19 Vaccine ( season) 2024 Influenza Vaccine (#1) 2024 Cholesterol Screening (Lipid Panel) 04/18/2024 Colorectal Cancer Screening: Colonoscopy 04/18/2024 HIV Screening 04/18/2024 Hepatitis C Screening 04/18/2024 Diabetes: Annual Urine Albumin-Creatinine Ratio (uACR) 04/23/2024 Diabetes: Blood Sugar Control Test (HGBA1C) 04/23/2024 Depression Screening 05/30/2025 05/30/2024 Diabetes: Annual GFR (Glomerular Filtration Rate) 05/30/2025 05/30/2024, 05/27/2024, 05/22/2024, Additional history exists Hypertension/CHF/CAD Annual BMP Blood Test 05/30/2025 05/30/2024, 05/27/2024, 05/22/2024, Additional history exists Social Influencers of Health Screening 05/30/2025 05/30/2024 HIB Vaccines Aged Out No longer eligi ble based on patient's age to complete this topic HPV Vaccines Aged Out No longer eligi ble based on patient's age to complete this topic IPV Vaccines Aged Out No longer eligi ble based on patient's age to complete this topic MMR Vaccines Aged Out No longer eligi ble based on patient's age to complete this topic Meningococcal ACWY Vaccine Aged Out N o longer eligible based on patient's age to complete this topic RSV Immunization Patients Under 20 months Aged Out No longer eligible based on patient's age to complete this topic Varicella Vaccines Aged Out No longer eligible based on patient's age to complete this topic Procedures Procedure Name Priority Date/Time Associated Diagnosis Comments POCT GLUCOSE BLOOD Routine 05/31/2024 11 :01 AM EST POCT GLUCOSE BLOOD Routine 05/31/2024 7: 16 AM EST POCT GLUCOSE BLOOD Routine 05/30/2024 8: 02 PM EST POCT GLUCOSE BLOOD Routine 05/30/2024 4: 18 PM EST GUY URINE CULTURE TUBE Routine 05/30/2024 4:08 PM EST URINALYSIS WITH REFLEX MICROSCOPIC AND CULTURE Routine 05/30/2024 4:08 PM EST URINALYSIS WITH REFLEX MICROSCOPIC AND CULTURE Routine 05/30/2024 4:08 PM EST CULTURE URINE Routine 05/30/2024 4:08 PM EST MAGNESIUM Routine 05/30/2024 1:08 PM EST COMPLETE BLOOD COUNT Routine 05/30/2024 1:08 PM EST COMPREHENSIVE METABOLIC PANEL Routine 05/30/2024 1:08 PM EST POCT GLUCOSE BLOOD Routine 05/30/2024 11 :03 AM EST RESPIRATORY VIRUS PANEL MOLECULAR STUDY Routine 05/30/2024 10:56 AM EST POCT GLUCOSE BLOOD Routine 05/30/2024 9: 55 AM EST POCT GLUCOSE BLOOD Routine 05/30/2024 7: 22 AM EST POCT GLUCOSE BLOOD Routine 05/29/2024 8: 34 PM EST POCT GLUCOSE BLOOD Routine 05/29/2024 4: 55 PM EST POCT GLUCOSE BLOOD Routine 05/29/2024 3: 31 PM EST POCT GLUCOSE BLOOD Routine 05/29/2024 2: 39 PM EST POCT GLUCOSE BLOOD Routine 05/29/2024 7: 20 AM EST POCT GLUCOSE BLOOD Routine 05/28/2024 8: 56 PM EST POCT GLUCOSE BLOOD Routine 05/28/2024 3: 39 PM EST POCT GLUCOSE BLOOD Routine 05/28/2024 11 :28 AM EST POCT GLUCOSE BLOOD Routine 05/28/2024 7: 07 AM EST POCT GLUCOSE BLOOD Routine 05/27/2024 8: 06 PM EST POCT GLUCOSE BLOOD Routine 05/27/2024 3: 37 PM EST POCT GLUCOSE BLOOD Routine 05/27/2024 11 :17 AM EST POCT GLUCOSE BLOOD Routine 05/27/2024 7: 15 AM EST LAVENDER - EDTA Routine 05/27/2024 5:43 AM EST EXTRA TUBES Routine 05/27/2024 5:43 AM EST VITAMIN D 25 HYDROXY Routine 05/27/2024 5:43 AM EST MAGNESIUM Routine 05/27/2024 5:43 AM EST COMPREHENSIVE METABOLIC PANEL Routine 05/27/2024 5:43 AM EST POCT GLUCOSE BLOOD Routine 2024 8: 15 PM EST POCT GLUCOSE BLOOD Routine 2024 3: 58 PM EST POCT GLUCOSE BLOOD Routine 2024 11 :12 AM EST POCT GLUCOSE BLOOD Routine 2024 7: 15 AM EST POCT GLUCOSE BLOOD Routine 05/25/2024 7: 59 PM EST POCT GLUCOSE BLOOD Routine 05/25/2024 3: 25 PM EST POCT GLUCOSE BLOOD Routine 05/25/2024 10 :57 AM EST POCT GLUCOSE BLOOD Routine 05/25/2024 7: 31 AM EST POCT GLUCOSE BLOOD Routine 05/24/2024 8: 10 PM EST POCT GLUCOSE BLOOD Routine 05/24/2024 3: 52 PM EST POCT GLUCOSE BLOOD Routine 05/24/2024 11 :30 AM EST POCT GLUCOSE BLOOD Routine 05/24/2024 7: 31 AM EST POCT GLUCOSE BLOOD Routine 05/23/2024 8: 15 PM EST POCT GLUCOSE BLOOD Routine 05/23/2024 3: 49 PM EST POCT GLUCOSE BLOOD Routine 05/23/2024 11 :25 AM EST POCT GLUCOSE BLOOD Routine 05/23/2024 7: 27 AM EST POCT GLUCOSE BLOOD Routine 05/22/2024 8: 01 PM EST POCT GLUCOSE BLOOD Routine 05/22/2024 4: 05 PM EST POCT GLUCOSE BLOOD Routine 05/22/2024 11 :06 AM EST POCT GLUCOSE BLOOD Routine 05/22/2024 7: 25 AM EST MAGNESIUM Routine 05/22/2024 5:52 AM EST COMPLETE BLOOD COUNT Routine 05/22/2024 5:52 AM EST COMPREHENSIVE METABOLIC PANEL Routine 05/22/2024 5:52 AM EST POCT GLUCOSE BLOOD Routine 05/21/2024 8: 21 PM EST POCT GLUCOSE BLOOD Routine 05/21/2024 3: 34 PM EST POCT GLUCOSE BLOOD Routine 05/21/2024 11 :11 AM EST POCT GLUCOSE BLOOD Routine 05/21/2024 7: 19 AM EST POCT GLUCOSE BLOOD Routine 05/20/2024 8: 08 PM EST POCT GLUCOSE BLOOD Routine 05/20/2024 4: 31 PM EST POCT GLUCOSE BLOOD Routine 05/20/2024 11 :12 AM EST POCT GLUCOSE BLOOD Routine 05/20/2024 7 :26 AM EST POCT GLUCOSE BLOOD Routine 05/19/2024 8: 01 PM EST POCT GLUCOSE BLOOD Routine 05/19/2024 3: 24 PM EST POCT GLUCOSE BLOOD Routine 05/19/2024 11 :20 AM EST POCT GLUCOSE BLOOD Routine 05/19/2024 7: 34 AM EST POCT GLUCOSE BLOOD Routine 05/18/2024 7: 57 PM EST POCT GLUCOSE BLOOD Routine 05/18/2024 3: 24 PM EST POCT GLUCOSE BLOOD Routine 05/18/2024 11 :08 AM EST VITAMIN D 25 HYDROXY Routine 05/18/2024 11:05 AM EST VITAMIN B12 AND FOLATE Routine 11:05 AM EST POCT GLUCOSE BLOOD Routine 05/18/2024 7: 21 AM EST LAVENDER - EDTA Routine 05/18/2024 6:12 AM EST EXTRA TUBES Routine 05/18/2024 6:12 AM EST MAGNESIUM Routine 05/18/2024 6:11 AM EST COMPREHENSIVE METABOLIC PANEL Routine 05/18/2024 6:11 AM EST POCT GLUCOSE BLOOD Routine 05/17/2024 8: 40 PM EST POCT GLUCOSE BLOOD Routine 05/17/2024 3: 51 PM EST POCT GLUCOSE BLOOD Routine 05/17/2024 11 :05 AM EST POCT GLUCOSE BLOOD Routine 05/17/2024 7: 22 AM EST MAGNESIUM Routine 05/17/2024 6:09 AM EST COMPLETE BLOOD COUNT Routine 05/17/2024 6:09 AM EST COMPREHENSIVE METABOLIC PANEL Routine 05/17/2024 6:09 AM EST POCT GLUCOSE BLOOD Routine 05/16/2024 8: 04 PM EST POCT GLUCOSE BLOOD Routine 05/16/2024 4: 36 PM EST GUY URINE CULTURE TUBE Routine 05/16/2024 4:16 PM EST URINALYSIS WITH REFLEX MICROSCOPIC AND CULTURE Routine 05/16/2024 4:16 PM EST URINALYSIS WITH REFLEX MICROSCOPIC AND CULTURE Routine 05/16/2024 4:16 PM EST POCT GLUCOSE BLOOD Routine 05/16/2024 11 :05 AM EST POCT GLUCOSE BLOOD Routine 05/16/2024 7: 19 AM EST POCT GLUCOSE BLOOD Routine 05/15/2024 8: 17 PM EST POCT GLUCOSE BLOOD Routine 05/15/2024 3: 47 PM EST POCT GLUCOSE BLOOD Routine 05/15/2024 11 :30 AM EST POCT GLUCOSE BLOOD Routine 05/15/2024 7: 15 AM EST POCT GLUCOSE BLOOD Routine 05/14/2024 8: 20 PM EST POCT GLUCOSE BLOOD Routine 05/14/2024 4: 00 PM EST POCT GLUCOSE BLOOD Routine 05/14/2024 11 :16 AM EST POCT GLUCOSE BLOOD Routine 05/14/2024 7: 18 AM EST POCT GLUCOSE BLOOD Routine 05/13/2024 7: 59 PM EST POCT GLUCOSE BLOOD Routine 05/13/2024 3: 53 PM EST POCT GLUCOSE BLOOD Routine 05/13/2024 11 :03 AM EST POCT GLUCOSE BLOOD Routine 05/13/2024 7: 14 AM EST CREATINE KINASE AND CKMB Routine 05/13/2024 5:52 AM EST COMPREHENSIVE METABOLIC PANEL Routine 05/13/2024 5:52 AM EST COMPLETE BLOOD COUNT Routine 05/13/2024 5:52 AM EST POCT GLUCOSE BLOOD Routine 05/12/2024 8: 18 PM EST POCT GLUCOSE BLOOD Routine 05/12/2024 3: 46 PM EST POCT GLUCOSE BLOOD Routine 05/12/2024 11 :12 AM EST POCT GLUCOSE BLOOD Routine 05/12/2024 7: 36 AM EST POCT GLUCOSE BLOOD Routine 05/11/2024 8: 51 PM EST POCT GLUCOSE BLOOD Routine 05/11/2024 3: 57 PM EST POCT GLUCOSE BLOOD Routine 05/11/2024 11 :16 AM EST POCT GLUCOSE BLOOD Routine 05/11/2024 7: 15 AM EST POCT GLUCOSE BLOOD Routine 05/10/2024 8: 10 PM EST POCT GLUCOSE BLOOD Routine 05/10/2024 4: 44 PM EST POCT GLUCOSE BLOOD Routine 05/10/2024 11 :10 AM EST POCT GLUCOSE BLOOD Routine 05/10/2024 7: 18 AM EST POCT GLUCOSE BLOOD Routine 05/09/2024 7: 49 PM EST MR BRAIN WO CONTRAST Routine 05/09/2024 5:31 PM EST POCT GLUCOSE BLOOD Routine 05/09/2024 3: 30 PM EST POCT GLUCOSE BLOOD Routine 05/09/2024 11 :05 AM EST POCT GLUCOSE BLOOD Routine 05/09/2024 7: 21 AM EST POCT GLUCOSE BLOOD Routine 05/08/2024 8: 19 PM EST POCT GLUCOSE BLOOD Routine 05/08/2024 4: 01 PM EST POCT GLUCOSE BLOOD Routine 05/08/2024 11 :06 AM EST POCT GLUCOSE BLOOD Routine 05/08/2024 7: 19 AM EST POCT GLUCOSE BLOOD Routine 05/07/2024 8: 11 PM EST POCT GLUCOSE BLOOD Routine 05/07/2024 4: [address] HEAD WO CONTRAST STAT 05/07/2024 1 2:38 PM EST POCT GLUCOSE BLOOD Routine 05/07/2024 11 :22 AM EST POCT GLUCOSE BLOOD Routine 05/07/2024 7: 21 AM EST COMPLETE BLOOD COUNT Routine 05/07/2024 5:42 AM EST BASIC METABOLIC PANEL Routine 05/07/2024 5:42 AM EST POCT GLUCOSE BLOOD Routine 05/06/2024 8: 10 PM EST POCT GLUCOSE BLOOD Routine 05/06/2024 4: 12 PM EST POCT GLUCOSE BLOOD Routine 05/06/2024 11 :21 AM EST SST - GOLD Routine 05/06/2024 10:26 AM EST EXTRA TUBES Routine 05/06/2024 10:26 AM EST CBC WITH AUTO DIFFERENTIAL Routine 05/06/2024 10:26 AM EST CBC AND DIFFERENTIAL Routine 05/06/2024 10:26 AM EST GUY URINE CULTURE TUBE Routine 05/06/2024 8:55 AM EST URINALYSIS WITH REFLEX MICROSCOPIC AND CULTURE Routine 05/06/2024 8:55 AM EST URINALYSIS WITH REFLEX MICROSCOPIC AND CULTURE Routine 05/06/2024 8:55 AM EST POCT GLUCOSE BLOOD Routine 05/05/2024 11 :03 AM EST POCT GLUCOSE BLOOD Routine 05/05/2024 7: 18 AM EST POCT GLUCOSE BLOOD Routine 05/04/2024 8: 06 PM EST POCT GLUCOSE BLOOD Routine 05/04/2024 4: 05 PM EST POCT GLUCOSE BLOOD Routine 05/04/2024 11 :08 AM EST POCT GLUCOSE BLOOD Routine 05/04/2024 7: 15 AM EST POCT GLUCOSE BLOOD Routine 05/03/2024 8: 21 PM EST POCT GLUCOSE BLOOD Routine 05/03/2024 4: 12 PM EST POCT GLUCOSE BLOOD Routine 05/03/2024 11 :26 AM EST POCT GLUCOSE BLOOD Routine 05/03/2024 7: 14 AM EST POCT GLUCOSE BLOOD Routine 05/02/2024 8: 39 PM EST POCT GLUCOSE BLOOD Routine 05/02/2024 3: 33 PM EST POCT GLUCOSE BLOOD Routine 05/02/2024 11 :36 AM EST POCT GLUCOSE BLOOD Routine 05/02/2024 7: 32 AM EST POCT GLUCOSE BLOOD Routine 05/01/2024 8: 15 PM EST POCT GLUCOSE BLOOD Routine 05/01/2024 3: 47 PM EST POCT GLUCOSE BLOOD Routine 05/01/2024 11 :05 AM EST POCT GLUCOSE BLOOD Routine 05/01/2024 7: 27 AM EST POCT GLUCOSE BLOOD Routine 04/30/2024 7: 55 PM EST POCT GLUCOSE BLOOD Routine 04/30/2024 3: 52 PM EST POCT GLUCOSE BLOOD Routine 04/30/2024 11 :02 AM EST POCT GLUCOSE BLOOD Routine 04/30/2024 7: 15 AM EST POCT GLUCOSE BLOOD Routine 04/29/2024 8: 10 PM EST POCT GLUCOSE BLOOD Routine 04/29/2024 3: 42 PM EST POCT GLUCOSE BLOOD Routine 04/29/2024 11 :02 AM EST POCT GLUCOSE BLOOD Routine 04/29/2024 7: 19 AM EST COMPLETE BLOOD COUNT Routine 04/29/2024 6:07 AM EST BASIC METABOLIC PANEL Routine 04/29/2024 6:07 AM EST POCT GLUCOSE BLOOD Routine 04/28/2024 8: 05 PM EST POCT GLUCOSE BLOOD Routine 04/28/2024 4: 03 PM EST POCT GLUCOSE BLOOD Routine 04/28/2024 11 :17 AM EST POCT GLUCOSE BLOOD Routine 04/28/2024 7: 17 AM EST POCT GLUCOSE BLOOD Routine 04/27/2024 8: 17 PM EST POCT GLUCOSE BLOOD Routine 04/27/2024 4: 45 PM EST POCT GLUCOSE BLOOD Routine 04/27/2024 11 :11 AM EST POCT GLUCOSE BLOOD Routine 04/27/2024 7: 27 AM EST POCT GLUCOSE BLOOD Routine 04/26/2024 8: 14 PM EST POCT GLUCOSE BLOOD Routine 04/26/2024 4: 18 PM EST POCT GLUCOSE BLOOD Routine 04/26/2024 11 :05 AM EST POCT GLUCOSE BLOOD Routine 04/26/2024 7: 24 AM EST POCT GLUCOSE BLOOD Routine 04/25/2024 8: 00 PM EST POCT GLUCOSE BLOOD Routine 04/25/2024 3: 51 PM EST POCT GLUCOSE BLOOD Routine 04/25/2024 11 :10 AM EST POCT GLUCOSE BLOOD Routine 04/25/2024 7: 36 AM EST POCT GLUCOSE BLOOD Routine 04/24/2024 8: 08 PM EST POCT GLUCOSE BLOOD Routine 04/24/2024 4: 07 PM EST POCT GLUCOSE BLOOD Routine 04/24/2024 11 :12 AM EST POCT GLUCOSE BLOOD Routine 04/24/2024 7: 34 AM EST POCT GLUCOSE BLOOD Routine 04/23/2024 8: 21 PM EST POCT GLUCOSE BLOOD Routine 04/23/2024 4: 09 PM EST POCT GLUCOSE BLOOD Routine 04/23/2024 11 :31 AM EST POCT GLUCOSE BLOOD Routine 04/23/2024 7: 14 AM EST POCT GLUCOSE BLOOD Routine 04/22/2024 8: 22 PM EST POCT GLUCOSE BLOOD Routine 04/22/2024 3: 59 PM EST POCT GLUCOSE BLOOD Routine 04/22/2024 11 :08 AM EST POCT GLUCOSE BLOOD Routine 04/22/2024 7: 27 AM EST POCT GLUCOSE BLOOD Routine 04/21/2024 8: 16 PM EST POCT GLUCOSE BLOOD Routine 04/21/2024 3: 46 PM EST POCT GLUCOSE BLOOD Routine 04/21/2024 11 :01 AM EST POCT GLUCOSE BLOOD Routine 04/21/2024 7: 19 AM EST POCT GLUCOSE BLOOD Routine 04/20/2024 7: 59 PM EST POCT GLUCOSE BLOOD Routine 04/20/2024 3: 39 PM EST POCT GLUCOSE BLOOD Routine 04/20/2024 11 :01 AM EST POCT GLUCOSE BLOOD Routine 04/20/2024 7: 31 AM EST CBC WITH AUTO DIFFERENTIAL Routine 04/20/2024 5:44 AM EST COMPREHENSIVE METABOLIC PANEL Routine 04/20/2024 5:44 AM EST CBC AND DIFFERENTIAL Routine 04/20/2024 5:44 AM EST POCT GLUCOSE BLOOD Routine 04/19/2024 8: 29 PM EST POCT GLUCOSE BLOOD Routine 04/19/2024 5: 48 PM EST from Last 3 Months Results * (ABNORMAL) POCT Glucose, blood (05/31/2024 11:01 AM EST) Only the most recent of167 resultswithin the time period is included. [facility] Glucose POCT 133(H) 70 - 100 mg/dL 05/31/2024 11:02 AM [facility] Blood Capillary blood specimen / Unknown 05/31/2024 11:01 AM EST 05/31/2024 11:04 AM EST Neida Bailey DO LAB POINT OF CARE TEST DOCKED DEVICE UNSOLICITED RESULTS [facility] [address] [place] [address], [place] [phone] * (ABNORMAL) Urinalysis with reflex microscopic and culture (05/30/2024 4:08 PM EST) Only the most recent of3 resultswithin the time period is included. [facility] Specific Lucien Urine 1.016 1.003 - 1.030 LAB URINALYSIS - AUTOMATED METHOD 05/30/2024 4:42 PM [facility] pH, Urine 8.0 5.0 - 8.0 pH LAB URINALYSIS - AUTOMATED METHOD 05/30/2024 4:42 PM [facility] Leukocytes, Urine Small(A) Negative LAB URINALYSIS - AUTOMATED METHOD 05/30/2024 4:42 PM [facility] Nitrite, Urine Negative Negative LAB URINALYSIS - AUTOMATED METHOD 05/30/2024 4:42 PM [facility] Protein, Urine 30(A) <=Trace mg/dL LAB URINALYSIS - AUTOMATED METHOD 05/30/2024 4:42 PM [facility] Glucose, Urine Negative Negative mg/dL LAB URINALYSIS - AUTOMATED METHOD 05/30/2024 4:42 PM [facility] Ketones, Urine Negative Negative mg/dL LAB URINALYSIS - AUTOMATED METHOD 05/30/2024 4:42 PM [facility] Urobilinogen , Urine 0.2 0.2 - 1.0 mg/dL LAB URINALYSIS - AUTOMATED METHOD 05/30/2024 4:42 PM [facility] Bilirubin, Urine Negative Negative LAB URINALYSIS - AUTOMATED METHOD 05/30/2024 4:42 PM [facility] Blood, Urine Large(A) Negative LAB URINALYSIS - AUTOMATED METHOD 05/30/2024 4:42 PM [facility] RBC, Urine 1,555.8(H) 0 - 4 /HPF LAB URINALYSIS - AUTOMATED METHOD 05/30/2024 4:42 PM [facility] WBC, Urine 2.1 0 - 4 /HPF LAB URINALYSIS - AUTOMATED METHOD 05/30/2024 4:42 PM [facility] Squamous Epithelial, Urine 32 0 - 60 /LPF LAB URINALYSIS - AUTOMATED METHOD 05/30/2024 4:42 PM [facility] Bacteria, Urine Negative Negative /HPF LAB URINALYSIS - AUTOMATED METHOD 05/30/2024 4:42 PM [facility] Hyaline Casts, Urine 0.8 0 - 3 /LPF LAB URINALYSIS - AUTOMATED METHOD 05/30/2024 4:42 PM [facility] Urine Urine specimen obtained by clean catch procedure / Unknown Non-blood Collection / Unknown 05/30/2024 4:08 PM EST 05/30/2024 4:21 PM EST Madeline SALINAS LAB URINE ORDERABLES Performing Organization Address [facility]/ZIP Co de Phone Number [facility] [address] [place] [address], [place] [phone] * Guy urine culture tube (05/30/2024 4:08 PM EST) Only the most recent of3 resultswithin the time period is included. Extra Tube Hold for add-ons. 05/30/2024 6:02 PM EST [facility] Comment:Auto resulted. Urine Urine specimen obtained by clean catch procedure / Unknown Non-blood Collection / Unknown 05/30/2024 4:08 PM EST 05/30/2024 4:21 PM EST Madeline SALINAS LAB URINE ORDERABLES Performing Organization Address [facility] de Phone Number [facility] [address] [place] [address], [place] [phone] * Culture urine (05/30/2024 4:08 PM EST) Culture, Urine No growth 05/31/2024 10:19 AM EST [facility] Urine Urine specimen obtained by clean catch procedure / Unknown Non-blood Collection / Unknown 05/30/2024 4:08 PM EST 05/30/2024 4:42 PM EST [facility] MICROBIOLOGY - G ENERAL ORDERABLES Performing Organization Address [facility]/ZIP Co de Phone Number [facility] [address] [place] [address], [place] [phone] * (ABNORMAL) Complete blood count (05/30/2024 1:08 PM EST) Only the most recent of6 resultswithin the time period is included. [facility] Signature WBC 6.1 4.8 - 10.8 K/mcL LAB HEMETOLOGY METHOD 05/30/2024 1:56 PM [facility] RBC 4.00 3.80 - 4.80 M/mcL LAB HEMETOLOGY METHOD 05/30/2024 1:56 PM [facility] Hemoglobin 11.7 11.5 - 16.0 g/dL LAB HEMETOLOGY METHOD 05/30/2024 1:56 PM [facility] Hematocrit 35.4 35.0 - 47.0 % LAB HEMETOLOGY METHOD 05/30/2024 1:56 PM [facility] MCV 87.6 79.0 - 98.0 FL LAB HEMETOLOGY METHOD 05/30/2024 1:56 PM [facility] MCH 29.0 27.0 - 32.0 pcg LAB HEMETOLOGY METHOD 05/30/2024 1:56 PM [facility] MCHC 33.1 32.0 - 37.0 g/dL LAB HEMETOLOGY METHOD 05/30/2024 1:56 PM [facility] RDW 13.0 11.0 - 15.0 % LAB HEMETOLOGY METHOD 05/30/2024 1:56 PM [facility] LAB Platelets 300 130 - 400 K/mcL LAB HEMETOLOGY METHOD 05/30/2024 1:56 PM [facility] MPV 11.6(H) 7.0 - 11.0 FL LAB HEMETOLOGY METHOD 05/30/2024 1:56 PM [facility] NRBC 0.0 <1.0 % LAB HEMETOLOGY METHOD 05/30/2024 1:56 PM [facility] NRBC Absolute 0.00 <0.10 K/mcL LAB HEMETOLOGY METHOD 05/30/2024 1:56 PM EST [facility] Blood Venous blood specimen / Unknown Venipuncture / Unknown 05/30/2024 1:08 PM EST 05/30/2024 1:14 PM EST Madeline SALINAS LAB BLOOD ORDERABLES Performing Organization Address [facility]/ZIP Co de Phone Number [facility] [address] [place] [address], [place] [phone] * Magnesium (05/30/2024 1:08 PM EST) Only the most recent of5 resultswithin the time period is included. Magnesium 2.0 1.9 - 2.6 mg/dL LAB CHEMISTRY METHOD 05/30/2024 3:25 PM [facility] Blood Venous blood specimen / Unknown Venipuncture / Unknown 05/30/2024 1:08 PM EST 05/30/2024 1:14 PM EST Madeline SALINAS LAB BLOOD ORDERABLES Performing Organization Address [facility]/ZIP Co de Phone Number [facility] [address] [place] [address], [place] [phone] * (ABNORMAL) Comprehensive metabolic panel (05/30/2024 1:08 PM EST) Only the most recent of7 resultswithin the time period is included. Sodium 138 133 - 145 mmol/L LAB CHEMISTRY METHOD 05/30/2024 3:34 PM [facility] Potassium 4.2 3.5 - 5.5 mmol/L LAB CHEMISTRY METHOD 05/30/2024 3:34 PM [facility] Chloride 104 96 - 110 mmol/L LAB CHEMISTRY METHOD 05/30/2024 3:34 PM [facility] CO2 29 21 - 32 mmol/L LAB CHEMISTRY METHOD 05/30/2024 3:34 PM [facility] Anion Gap 5 3 - 11 LAB CHEMISTRY METHOD 05/30/2024 3:34 PM [facility] Glucose 144(H) 70 - 100 mg/dL LAB CHEMISTRY METHOD 05/30/2024 3:34 PM [facility] BUN 14 5 - 25 mg/dL LAB CHEMISTRY METHOD 05/30/2024 3:34 PM [facility] Creatinine 0.79 0.50 - 1.10 mg/dL LAB CHEMISTRY METHOD 05/30/2024 3:34 PM [facility] eGFR 93 >=60 mL/min/1. 73m2 LAB CHEMISTRY METHOD 05/30/2024 3:34 PM [facility] Comment:Calculation based on the??Chronic Kidney Disease Epidemiology Collaboration (CKD-EPI) equation refit??without adjustment for race. BUN/Creatinine Ratio 17.7 LAB CHEMISTRY METHOD 05/30/2024 3:34 PM [facility] Calcium 9.1 8.5 - 10.5 mg/dL LAB CHEMISTRY METHOD 05/30/2024 3:34 PM [facility] AST (SGOT) 24 10 - 42 unit/L LAB CHEMISTRY METHOD 05/30/2024 3:34 PM [facility] ALT (SGPT) 30 10 - 60 unit/L LAB CHEMISTRY METHOD 05/30/2024 3:34 PM [facility] Alkaline Phosphatase 71 42 - 121 unit/L LAB CHEMISTRY METHOD 05/30/2024 3:34 PM [facility] Total Protein 6.3 6.0 - 8.0 g/dL LAB CHEMISTRY METHOD 05/30/2024 3:34 PM [facility] Albumin 3.2 3.2 - 5.0 g/dL LAB CHEMISTRY METHOD 05/30/2024 3:34 PM [facility] Total Bilirubin 0.3 0.0 - 1.4 mg/dL LAB CHEMISTRY METHOD 05/30/2024 3:34 PM EST [facility] Blood Venous blood specimen / Unknown Venipuncture / Unknown 05/30/2024 1:08 PM EST 05/30/2024 1:14 PM EST Madeline SALINAS LAB BLOOD ORDERABLES [facility] [address] [place] [address], * Respiratory virus panel molecular study (05/30/2024 10:56 AM EST) Pathologist [facility] Adenovirus Detection by PCR Not Detected Not Detected LAB MICROBIOLOGY METHOD 05/30/2024 12:07 PM [facility] Influenza A PCR Not Detected Not Detected LAB MICROBIOLOGY METHOD 05/30/2024 12:07 PM [facility] Influenza B PCR Not Detected Not Detected LAB MICROBIOLOGY METHOD 05/30/2024 12:07 PM [facility] Coronavirus 229E Not Detected Not Detected LAB MICROBIOLOGY METHOD 05/30/2024 12:07 PM [facility] Coronavirus HKU1 Not Detected Not Detected LAB MICROBIOLOGY METHOD 05/30/2024 12:07 PM [facility] Coronavirus OC43 Not Detected Not Detected LAB MICROBIOLOGY METHOD 05/30/2024 12:07 PM [facility] Coronavirus NL63 Not Detected Not Detected LAB MICROBIOLOGY METHOD 05/30/2024 12:07 PM EST [facility] Parainfluenza Virus 1 Not Detected Not Detected LAB MICROBIOLOGY METHOD 05/30/2024 12:07 PM [facility] Parainfluenza Virus 2 Not Detected Not Detected LAB MICROBIOLOGY METHOD 05/30/2024 12:07 PM [facility] Parainfluenza Virus 3 Not Detected Not Detected LAB MICROBIOLOGY METHOD 05/30/2024 12:07 PM [facility] Parainfluenza Virus 4 Not Detected Not Detected LAB MICROBIOLOGY METHOD 05/30/2024 12:07 PM [facility] RSV PCR Not Detected Not Detected LAB MICROBIOLOGY METHOD 05/30/2024 12:07 PM [facility] Human Metapneumovirus A and B Not Detected Not Detected LAB MICROBIOLOGY METHOD 05/30/2024 12:07 PM [facility] Rhinovirus/Entero virus Not Detected Not Detected LAB MICROBIOLOGY METHOD 05/30/2024 12:07 PM [facility] Bordetella pertussis Not Detected Not Detected LAB MICROBIOLOGY METHOD 05/30/2024 12:07 PM [facility] Bordetella parapertussis Not Detected Not Detected LAB MICROBIOLOGY METHOD 05/30/2024 12:07 PM [facility] Mycoplasma pneumo by PCR Not Detected Not Detected LAB MICROBIOLOGY METHOD 05/30/2024 12:07 PM [facility] Chlamydia pneumoniae Not Detected Not Detected LAB MICROBIOLOGY METHOD 05/30/2024 12:07 PM [facility] SARS COV-2 Not Detected Not Detected LAB MICROBIOLOGY METHOD 05/30/2024 12:07 PM [facility] Swab Both anterior nares / Unknown Non-blood Collection / Unknown 05/30/2024 10:56 AM EST 05/30/2024 11:[address] [facility] - 05/30/2024 12:07 PM EST Testing was performed using the [employer] Respiratory Pathogen PCR Assay. All results must be correlated with the clinical findings. Results should not be used as the sole basis for diagnosis. False Negative results may occur from the presence of sequence variants in the region targeted by the assay or the presence of inhibitors. Results may be affected by concurrent antiviral/antimicrobial therapy or levels of organisms that are below the limit of detection. Madeline SALINAS LAB MICROBIOLOGY - G ENERAL ORDERABLES [facility] [address] [place] [address], * Lavender tube (05/27/2024 5:43 AM EST) Only the most recent of2 resultswithin the time period is included. [facility] Extra Tube Hold for add-ons. 05/27/2024 8:01 AM EST [facility] Comment:Auto resulted. Blood Venous blood specimen / Unknown Venipuncture / Unknown 05/27/2024 5:43 AM EST 05/27/2024 6:13 AM EST Neida Bailey DO LAB BLOOD ORDERAB LES Performing Organization Address City/[facility]/ZIP Co de Phone Number [facility] [address] [place] [address], [place] [phone] * (ABNORMAL) Vitamin D 25 hydroxy (05/27/2024 5:43 AM EST) Only the most recent of2 resultswithin the time period is included. [facility] Vit D, 25-Hydroxy 25.8(L) 30.0 - 80.0 ng/mL LAB CHEMISTRY METHOD 05/27/2024 9:40 AM [facility] Blood Venous blood specimen / Unknown Venipuncture / Unknown 05/27/2024 5:43 AM EST 05/27/2024 6:11 AM EST Leah Philippe NP LAB BLOOD OR DERABLES [facility] [address] [place] [address], [place] [phone] * (ABNORMAL) Vitamin B12 and folate (05/18/2024 11:05 AM EST) [facility] Vitamin B-12 233(L) 250 - 900 pcg/mL LAB CHEMISTRY METHOD 05/18/2024 12:06 PM [facility] Folate 8.2 2.8 - 17.0 ng/ml LAB CHEMISTRY METHOD 05/18/2024 12:06 PM EST [facility] Blood Venous blood specimen / Unknown Venipuncture / Unknown 05/18/2024 11:05 AM EST 05/18/2024 11:15 AM EST Leah Philippe NP LAB BLOOD OR DERABLES Performing Organization Address City/[facility]/ZIP Co de Phone Number [facility] [address] [place] [address], [place] [phone] * (ABNORMAL) Creatine kinase and CKMB (05/13/2024 5:52 AM EST) Pathologist [facility] Total CK 31 22 - 269 unit/L LAB CHEMISTRY METHOD 05/13/2024 6:51 AM EST [facility] CK-MB <1.0(L) 1.0 - 3.6 ng/mL LAB CHEMISTRY METHOD 05/13/2024 6:51 AM EST [facility] CK-MB Index <0.0(L) 0.0 - 5.0 LAB CHEMISTRY METHOD 05/13/2024 6:51 AM EST [facility] Blood Venous blood specimen / Unknown Venipuncture / Unknown 05/13/2024 5:52 AM EST 05/13/2024 6:07 AM EST Leah Philippe NP LAB BLOOD OR DERABLES Performing Organization Address City/[facility]/ZIP Co de Phone Number [facility] [address] [place] [address], [place] [phone] * MR Brain wo Contrast (05/09/2024 5:31 PM EST) Anatomical Region Laterality Modality Head and Neck Magnetic Resonan ce 05/10/2024 1:06 AM EST Addenda Addendum by Krishan Oden MD on 05/10/2024 1:14 AM EST ADDENDUM: This report was discussed with Neto TAO on May 10, 2024 01:13:00 EST. This document has been electronically signed by: Yuly Cleveland on 05/10/2024 01:14:01 Impressions 05/10/2024 1:06 AM EST 1. The patient has a reported history of an acute infarct in the right aspect of the srinivas. There are 2 areas of restricted diffusion within the srinivas, as detailed above. The imaging appearance is compatible with acute infarcts, however please note that acute infarcts can have restricted diffusion for multiple weeks, and the exact age of these infarcts is therefore difficult to ascertain. 2. An area of signal abnormality in the right brachium pontis might be artifactual, as there is no corresponding loss of signal in the ADC map. Alternatively this could represent a subacute area of infarct. 3. Please note that some of the imaging sequences are significantly motion limited, limiting assessment. There is also some magnet artifact which limits assessment of the srinivas on the diffusion-weighted images. A follow-up exam can be considered. This document has been electronically signed by: Krishan Oden M.D. on 05/10/2024 01:06:25 Narrative 05/10/2024 1:06 AM EST MRI BRAIN WITHOUT CONTRAST COMPARISON: CT brain 05/07/2024. FINDINGS: Some of the imaging sequences are significantly motion limited, limiting assessment.The patient has a reported history of an acute infarct in the right aspect of the srinivas. There is some magnet artifact which limits assessment of the srinivas on the diffusion-weighted images. There is restricted diffusion in the periphery of the right aspect of the srinivas. Exact dimensions are difficult to quantify but a field service representative measurement on image 21 of series 3 is 1.2 x 0.5 cm. On images 22-23 of series 3 is an area of restricted diffusion in the midline and right paracentral region of the srinivas, also compatible with an acute infarct. This is also difficult to accurately measure but a field service representative measurement on image 22 is approximately 9 mm. Apparent area of signal abnormality within the right brachium pontis on image 23 might be artifactual, as there is no corresponding loss of signal on the ADC map. Alternatively this could represent a subacute area of infarct, estimated to measure 1.0 x 0.5 cm. There are no other definite areas of restricted diffusion. Mild parenchymal atrophy is present. FLAIR/T2 hyperintensities are noted in the periventricular and subcortical white matter of the supratentorial brain which are nonspecific but most likely represent chronic small vessel ischemic disease. No hydrocephalus. No extra-axial fluid collection. Clivus and craniocervical junction are unremarkable. Procedure Note Krishan Oden MD - 05/10/2024 MRI BRAIN WITHOUT CONTRAST COMPARISON: CT brain 05/07/2024. FINDINGS: Some of the imaging sequences are significantly motionlimited, limiting assessment.The patient has a reported history of an acuteinfarct in the right aspect of the srinivas. There is some magnet artifact which limits assessment of the srinivas on the diffusion-weighted images. There is restricted diffusion in theperiphery of the right aspect of the srinivas. Exact dimensions are difficult to quantify but a field service representative measurement on image 21 of series 3 is 1.2x 0.5 cm. On images 22-23 of series 3 is an area of restricted diffusionin the midline and right paracentral region of the srinivas, also compatiblewith an acute infarct. This is also difficult to accurately measure but a field service representative measurement on image 22 is approximately 9 mm. Apparent area of signal abnormality within the right brachium pontis on image 23 might be artifactual, as there is no corresponding loss ofsignal on the ADC map. Alternatively this could represent a subacute area of infarct, estimated to measure 1.0 x 0.5 cm. There are no other definite areas of restricted diffusion. Mild parenchymal atrophy is present. FLAIR/T2 hyperintensities are noted inthe periventricular and subcortical white matter of the supratentorial brain which are nonspecific but most likely represent chronic small vessel ischemic disease. No hydrocephalus. No extra-axial fluid collection. Clivus and craniocervical junction are unremarkable. IMPRESSION: 1. The patient has a reported history of an acute infarct in the right aspect of the srinivas. There are 2 areas of restricted diffusion within the srinivas, as detailed above. The imaging appearance is compatible with acute infarcts, however please note that acute infarcts can have restricted diffusion for multiple weeks, and the exact age of these infarcts is therefore difficult to ascertain. 2. An area of signal abnormality in the right brachium pontis might be artifactual, as there is no corresponding loss of signal in the ADC map. Alternatively this could represent a subacute area of infarct. 3. Please note that some of the imaging sequences are significantlymotion limited, limiting assessment. There is also some magnet artifact which limits assessment of the srinivas on the diffusion-weighted images. A follow-up exam can be considered. This document has been electronically signed by: Krishan Oden M.D. on 05/10/2024 01:06:25 Melvi SALINAS IMG MRI CA OCEDURES * CT Head wo Contrast (05/07/2024 12:38 PM EST) Anatomical Region Laterality Modality Head and Neck Computed Tomogra phy 05/07/2024 12:4 7 PM EST Impressions 05/07/2024 12:50 PM EST There is subtle hypoattenuation in the rightward srinivas correlating with an infarct demonstrated on the comparison MRI. ??No acute hemorrhage or other acute superimposed findings. -------- FINAL REPORT -------- Dictated By: Cem Gunderson Dictated Date: 05/07/2024 12:47 ET Assigned Physician: Cem Gunderson Reviewed and Electronically Signed By: Cem Gunderson Signed Date: 05/07/2024 12:50 ET Workstation ID: [id number] Transcribed By: Self Edit Transcribed Date: 05/07/2024 12:47 ET Narrative 05/07/2024 12:[address] dated 05/07/2024. HISTORY: Recent CVA, increased LUE weakness and functional decline & increased speech difficulty over past 48 hours, r/o bleed. COMPARISON: MRI 04/18/2024. TECHNIQUE: Noncontrast head CT with coronal and sagittal reformats. Dose length product: ??717 mGy-cm. FINDINGS: Brain: No hemorrhage, edema, mass, or extra-axial fluid collection. ??There is very subtle hypoattenuation in the rightward srinivas which correlates with an area of restricted diffusion seen on the comparison MRI. ??Ventricles and sulci are age commensurate. ??Patchy hypoattenuation in the supratentorial white matter suggesting mild chronic microvascular ischemic disease. ??Atherosclerotic calcifications of the carotid siphons. Orbits: Normal. Sinuses/mastoids: Anterior clinoids are pneumatized and communicate with the sphenoids. Calvarium: Normal. Other: The skull base soft tissues are normal. ??Mild degenerative changes of the temporomandibular joints. Procedure Note Cem Gunderson MD - 05/07/[address] dated 05/07/2024. HISTORY: Recent CVA, increased LUE weakness and functional decline &increased speech difficulty over past 48 hours, r/o bleed. COMPARISON: MRI 04/18/2024. TECHNIQUE: Noncontrast head CT with coronal and sagittal reformats. Dose length product: 717 mGy-cm. FINDINGS: Brain: No hemorrhage, edema, mass, or extra-axial fluid collection. Thereis very subtle hypoattenuation in the rightward srinivas which correlates withan area of restricted diffusion seen on the comparison MRI. Ventriclesand sulci are age commensurate. Patchy hypoattenuation in thesupratentorial white matter suggesting mild chronic microvascular ischemicdisease. Atherosclerotic calcifications of the carotid siphons. Orbits: Normal. Sinuses/mastoids: Anterior clinoids are pneumatized and communicate withthe sphenoids. Calvarium: Normal. Other: The skull base soft tissues are normal. Mild degenerative changesof the temporomandibular joints. IMPRESSION: There is subtle hypoattenuation in the rightward srinivas correlating with aninfarct demonstrated on the comparison MRI. No acute hemorrhage or otheracute superimposed findings. -------- FINAL REPORT -------- Dictated By: Cem Gunderson Dictated Date: 05/07/2024 12:47 ET Assigned Physician: Cem Gundesron Reviewed and Electronically Signed By: Cem Gunderson Signed Date: 05/07/2024 12:50 ET Workstation ID: [id number] Transcribed By: Self Edit Transcribed Date: 05/07/2024 12:47 ET Neida Bailey DO IMG CT PROCEDURES * Basic metabolic panel (05/07/2024 5:42 AM EST) Only the most recent of2 resultswithin the time period is included. Sodium 139 133 - 145 mmol/L LAB CHEMISTRY METHOD 05/07/2024 7:04 AM EST [facility] Potassium 4.0 3.5 - 5.5 mmol/L LAB CHEMISTRY METHOD 05/07/2024 7:04 AM [facility] Chloride 105 96 - 110 mmol/L LAB CHEMISTRY METHOD 05/07/2024 7:04 AM [facility] CO2 28 21 - 32 mmol/L LAB CHEMISTRY METHOD 05/07/2024 7:04 AM [facility] Anion Gap 6 3 - 11 LAB CHEMISTRY METHOD 05/07/2024 7:04 AM [facility] Glucose 87 70 - 100 mg/dL LAB CHEMISTRY METHOD 05/07/2024 7:04 AM [facility] BUN 13 5 - 25 mg/dL LAB CHEMISTRY METHOD 05/07/2024 7:04 AM [facility] Creatinine 0.63 0.50 - 1.10 mg/dL LAB CHEMISTRY METHOD 05/07/2024 7:04 AM [facility] eGFR 111 >=60 mL/min/1. 73m2 LAB CHEMISTRY METHOD 05/07/2024 7:04 AM [facility] Comment:Calculation based on the??Chronic Kidney Disease Epidemiology Collaboration (CKD-EPI) equation refit??without adjustment for race. BUN/Creatinine Ratio 20.6 LAB CHEMISTRY METHOD 05/07/2024 7:04 AM [facility] Calcium 9.3 8.5 - 10.5 mg/dL LAB CHEMISTRY METHOD 05/07/2024 7:04 AM [facility] Blood Venous blood specimen / Unknown Venipuncture / Unknown 05/07/2024 5:42 AM EST 05/07/2024 6:31 AM EST Radhika Barber NP LAB BLOOD ORDERABLES [facility] [address] [place] [address], * SST tube (05/06/2024 10:26 AM EST) Extra Tube Hold for add-ons. 05/06/2024 12:01 PM [facility] Comment:Auto resulted. Blood Venous blood specimen / Unknown 05/06/2024 10:26 AM EST 05/06/2024 10:37 AM EST Neida Bailey DO LAB BLOOD ORDERAB LES [facility] [address] [place] [address], * (ABNORMAL) CBC auto differential (05/06/2024 10:26 AM EST) Only the most recent of2 resultswithin the time period is included. Pathologist [facility] WBC 8.8 4.8 - 10.8 K/mcL LAB HEMETOLOGY METHOD 05/06/2024 10:49 AM [facility] RBC 4.10 3.80 - 4.80 M/[facility] LAB HEMETOLOGY METHOD 05/06/2024 10:49 AM [facility] Hemoglobin 11.9 11.5 - 16.0 g/dL LAB HEMETOLOGY METHOD 05/06/2024 10:49 AM [facility] Hematocrit 35.6 35.0 - 47.0 % LAB HEMETOLOGY METHOD 05/06/2024 10:49 AM [facility] MCV 87.0 79.0 - 98.0 FL LAB HEMETOLOGY METHOD 05/06/2024 10:49 AM [facility] MCH 29.1 27.0 - 32.0 pcg LAB HEMETOLOGY METHOD 05/06/2024 10:49 AM [facility] MCHC 33.4 32.0 - 37.0 g/dL LAB HEMETOLOGY METHOD 05/06/2024 10:49 AM [facility] RDW 12.6 11.0 - 15.0 % LAB HEMETOLOGY METHOD 05/06/2024 10:49 AM [facility] Platelets 300 130 - 400 K/mcL LAB HEMETOLOGY METHOD 05/06/2024 10:49 AM [facility] MPV 11.8(H) 7.0 - 11.0 FL LAB HEMETOLOGY METHOD 05/06/2024 10:49 AM [facility] NRBC 0.0 <1.0 % LAB HEMETOLOGY METHOD 05/06/2024 10:49 AM [facility] NRBC Absolute 0.00 <0.10 K/mcL LAB HEMETOLOGY METHOD 05/06/2024 10:49 AM [facility] Neutrophils Relative 85.2 % LAB HEMETOLOGY METHOD 05/06/2024 10:49 AM [facility] Lymphocytes Relative 10.4 % LAB HEMETOLOGY METHOD 05/06/2024 10:49 AM [facility] Monocytes Relative 3.7 % LAB HEMETOLOGY METHOD 05/06/2024 10:49 AM [facility] Eosinophils Relative 0.2 % LAB HEMETOLOGY METHOD 05/06/2024 10:49 AM [facility] Basophils Relative 0.2 % LAB HEMETOLOGY METHOD 05/06/2024 10:49 AM [facility] Immature Granulocytes Relative 0.3 % LAB HEMETOLOGY METHOD 05/06/2024 10:49 AM [facility] Neutrophils Absolute 7.49(H) 1.50 - 7.00 K/mcL LAB HEMETOLOGY METHOD 05/06/2024 10:49 AM [facility] Lymphocytes Absolute 0.92(L) 1.00 - 5.00 K/mcL LAB HEMETOLOGY METHOD 05/06/2024 10:49 AM [facility] Monocytes Absolute 0.33 0.20 - 1.00 K/mcL LAB HEMETOLOGY METHOD 05/06/2024 10:49 AM EST [facility] Eosinophils Absolute 0.02 0.00 - 0.50 K/mcL LAB HEMETOLOGY METHOD 05/06/2024 10:49 AM EST [facility] Basophils Absolute 0.02 0.00 - 0.20 K/mcL LAB HEMETOLOGY METHOD 05/06/2024 10:49 AM EST [facility] Immature Granulocytes Absolute 0.03 0.00 - 0.03 K/mcL LAB HEMETOLOGY METHOD 05/06/2024 10:49 AM EST [facility] Blood Venous blood specimen / Unknown Venipuncture / Unknown 05/06/2024 10:26 AM EST 05/06/2024 10:36 AM EST Radhika Barber CORPORATE SALES REPRESENTATIVE LAB BLOOD ORDERABLES Performing Organization Address City/State/[facility] Co de Phone Number [facility] [address] [place] [address], from Last 3 Months Advance Directives * Full Code - Default (Latest Code Status on File) Date Activated Date Inactivated Comments 04/19/2024 6:52 PM 05/31/2024 2:44 PM This is orde r is used when code status has not been discussed with the patient, or code status is otherwise unknown/unconfirmed To update the patient's code status, place a code status order. Do not modify or discontinue any currently active code status orders. Care Teams Development Geologist Relationship Specialty Start Date End Date Sherin Garcia MD [address] [place] [address] PCP - General Family Medicine 05/09/24
--- OUTSIDE RECORDS SUMMARY | 2024-06-10 16:51 | XMS_ITS | Encounter Summary ---
Author Organization [facility] Address [address] 7 [place] [address] Care Team Providers Care Risk Control Consultant Name Role Phone Erlinda Hernandez Primary Care Provider Reason for Referral * Consultation (Routine) - Pending Review Specialty Diagnoses / Procedures Referred By Contnick t Referred To Contact Neurology Diagnoses Cerebrovascular accident (CVA), unspecified mechanism (CMS/HCC) Erlinda Hernandez FNP [address] [place] [address] Phone: tel: fax: [facility] Referral ID Status Reason Start Date Expiration Date Visits Requested Visits Authorized [id number] Pending Review Specialty Services Required 06/10/2024 06/10/2025 1 1 * Consultation (Routine) - Pending Review Specialty Diagnoses / Procedures Referred By Contnick t Referred To Contact Endocrinology Diagnoses Type 2 diabetes mellitus without complication, without long-term current use of insulin (CMS/[facility]) Erlinda Hernandez FNP [address] [place] [address] Phone: tel: fax: [facility] Referral ID Status Reason Start Date Expiration Date Visits Requested Visits Authorized [id number] Pending Review Specialty Services Required 06/10/2024 06/10/2025 1 1 * Consultation (Routine) - Authorized Specialty Diagnoses / Procedures Referred By Contac t Referred To Contact Optometry Diagnoses Type 2 diabetes mellitus without complication, without long-term current use of insulin (CMS/HCC) Erlinda Hernandez FNP [address] [place] [address] Phone: tel: fax: [facility] OPTOMETRY [address] [place] [address] Phone: tel: fax: Referral ID Status Reason Start Date Expiration Date Visits Requested Visits Authorized [id number] Authorized Consult and Treat 06/10/2024 06/10/2025 1 1 * Imaging (Routine) - Closed Specialty Diagnoses / Procedures Referred By Kamar t Referred To Contact Radiology Diagnoses Encounter for screening mammogram for malignant neoplasm of breast Procedures BI Mammogram Screening Tomosynthesis Bilateral Erlinda Hernandez FNP [address] [place] [address] Phone: tel: fax: [address] Phone: tel: fax: Referral ID Status Reason Start Date Expiration Date Visits Re quested Visits Authorized [id number] Closed 06/10/2024 06/10/2025 1 1 Encounter Details Date Type Department Care Team (Latest Contact Info) Description 06/10/2024 10:30 AM EST Office Visit [facility] CH[facility] MED & PEDS [address] [place] [address] Erlinda Hernandez FNP [address] [place] [address] Cerebrovascular accident (CVA), unspecified mechanism (CMS/HCC) (Primary Dx); Encounter for screening mammogram for malignant neoplasm of breast; Healthcare maintenance; Primary hypertension; Type 2 diabetes mellitus without complication, without long-term current use of insulin (CMS/HCC); Adjustment disorder, unspecified type; Bloating Social History Tobacco Use Types Packs/Day Years Used Date Smoking Tobacco: Never Passive Smoke Exposure: Never Tobacco Cessation:Counseling Given: Not Answered Alcohol Use Standard Drinks/Week Comments Never 0 (1 standard drink = 0.6 oz pur e alcohol) Comments Unknown Sex and Gender Information Value Date Recorded Sex Assigned at Female 02/22/2023 9:49 AM EDT Legal Sex Female 9:43 AM EDT Gender Identity Female 02/22/2023 9:49 AM EDT Sexual Orientation Straight 02/22/2023 9: 49 AM EDT documented as of this encounter Last Filed Vital Signs Vital Sign Reading Time Taken Comments Blood Pressure 146/82 06/10/2024 10:30 AM EST Pulse 71 06/10/2024 10:30 AM EST Temperature 35.3 ??C (95.5 ??F) 06/10/2024 10:[address] Respiratory Rate 20 06/10/2024 10:30 AM EST Oxygen Saturation 99% 06/10/2024 10:30 AM EST Inhaled Oxygen Concentration - - Weight 70.3 kg (155 lb) 06/10/2024 10:30 AM EST Height - - Body Mass Index - - documented in this encounter Patient Instructions * Patient Instructions* RIANA You - 06/10/2024 10:30 AM EST List of Local Eye Providers [facility] [address] [place] [address] Ages: 2 years old and above *Currently booking out 8-12 months [facility] [address], [place] [phone] Ages: 3 years and above *Currently only accepting new patients with diabetes or eye-related medical conditions [facility] - Dr. Martins [address] [place] [address] Ages: 6 years old and above [facility] [address] [phone] *Will fill the eye glasses prescription only (no exams or evaluations). Accepts [facility] [place] [facility] [address] Eshan Messina [address], [place] Ages: 15 years old and below [facility] [address] 3rd Floor [place], [place] [phone] *Requires referral from PCP, does accept [facility] [place] [address] [place] [address] Ages: 7 years and above *Dr. Argueta Speaks Hungarian. Accepts [facility] [place] [address] [place] [address] Ages: 7 years and above *Dr. Argueta Speaks Hungarian. Accepts [facility] [address] [place] [address] Ages: 5 years and above [facility] [address] [place] [address] *Eye evaluations, but does not dispense glasses [facility] [address] [place] [address] Ages: 6 years and above [facility] [address] [place] [address] [facility] [address] [place] [address] [facility] [address] [place], [place] [phone] [facility] [address] [place] [address] Ages: 2 years and above *Does not accept [facility] Insurance [facility] [address] [place] [address] Ages: 5 years and above *Not currently accepting new patients documented in this encounter Progress Notes * RIANA You - 06/10/2024 10:30 AM EST Subjective: Amalia English is a 49 y.o. female (New Patient) with PMH hypertension, T2DM, CVA x 2, who presents to the office with boyfriend for a Hospital Discharge Follow Up. Pharmacy Consult Note Reviewed: [facility] (03/26/24-04/01/24): Patient with PMH including uncontrolled HTN and T2DM presented for evaluation of dizziness/vertigo,dysarthria and right arm weakness with unsteady gait. MRI of brain demonstrated small acute infarctin right dorsal srinivas. Started on aspirin, clopidogrel and statin. Patient discharged home with outpatient PT and to follow up with stroke clinic. [facility] (04/15/24-04/19/24) Patient presented for evaluation of local left sided weakness, slurred speech and facial droop. CTAh/n consistent with right hemispheric stroke per neurology. MRI of brain showed right pontine infarct w/o hemorrhagic transformation. Continued on aspirin, clopidogrel and high intensity statin. Neurology to arrange follow up. Patient also found to have poorly controlled diabetes with A1c >12%. Seen by BIDs, metformin discontinued and basal bolus insulin initiated. Patient to follow up with endocrinology. Discharged to rehab. [facility] Rehab (04/19/24-05/31/24) Patient presented for rehab following stroke. Atorvastatin 80 mg was discontinued on 05/17 due to concern for possible myopathy and restarted at 10 mg. Escitalopram initiated for depression. Lisinoprildiscontinued due to c/o ???itchiness to their throat?? and amlodipine was started. Lantus was decreased and eventually discontinued and metformin and glipizide initiated. Noted to have low magnesiumand started on supplement. HPI: CVA: continues with left sided weakness, primarily in LLE. Has been following with physical therapyand OT at home. Also with [facility] services. Information on obtaining [employer] eval provided. Right hand dominant. Left arm ROM and strength improving per pt. T2DM: FBG readings in the 90s-110s, max reading 300s at home although after sugary beverage. Has been consistent with metformin and glipizide. Upcoming appt scheduled with [facility] Endo. Denies episode of hypoglycemia. Hypertension: home BP readings in the 140s/80s. Denies any chest pain, SOB, palpitations, or swelling of lower extremities. PMH: reports hx of spina bifida, chronic back pain PSH: cholecystectomy Social History: - Lives in 4th floor apartment, no elevator - Assistance from boyfriend - Moved from [place] to [place] around 2023 Review of Systems Constitutional: Negative for activity change, appetite change and fever. Respiratory: Negative for cough. Cardiovascular: Negative for chest pain and palpitations. Gastrointestinal: Negative for abdominal pain, constipation, diarrhea and vomiting. Genitourinary: Negative for decreased urine volume and difficulty urinating. Visit Vitals BP (!) 146/82 (BP Location: Right arm, Patient Position: Sitting, BP Cuff Size: Adult) Pulse 71 Temp 95.5 ??F (35.3 ??C) (Oral) Resp 20 Wt 155 lb (70.3 kg) SpO2 99% Smoking Status Never Physical Exam Constitutional: Appearance: Normal appearance. HENT: Head: Atraumatic. Right Ear: External ear normal. Left Ear: External ear normal. Cardiovascular: Rate and Rhythm: Normal rate and regular rhythm. Pulmonary: Effort: Pulmonary effort is normal. Breath sounds: Normal breath sounds. Musculoskeletal: Comments: 4+/5 strength LUE, mild weakness left lower extremity. Presented in wheelchair. Neurological: Mental Status: She is alert and oriented to person, place, and time. Psychiatric: Mood and Affect: Mood normal. Behavior: Behavior normal. Problem List Items Addressed This Visit Nervous CVA (cerebral vascular accident) ([facility]) - Primary Overview CVA 03/26/24 - [facility] Admission. CVA Apr 2024 - [facility] Admission. MRI brain demonstrated acute-subacute right pontine infarct w/o hemorrhagic transformation Current Assessment & Plan Med Regimen: - aspirin 81mg daily - clopidogrel 75mg daily (encouraged to discuss duration with Neurology) - Atorvastatin increased from 10mg to 20mg (previously unable to tolerate 80mg nightly) Relevant Orders Referral to Neurology Circulatory HTN (hypertension) Current Assessment & Plan -Goal <130/80 mmHg, Above goal per home and office readings. Cont amlodipine 10mg daily Start olmesartan 5mg daily. Reviewed med safety and SE Record home BP log and bring to f/up appt in 2-4 weeks Encourage Lifestyle interventions Previous medication: - Lisinopril 10mg daily (DC due to throat irritation) Relevant Medications olmesartan (Benicar) 5 MG tablet Endocrine/Metabolic Type 2 diabetes mellitus, without long-term current use of insulin ([facility]) Overview Lab Results Component Value Date HGBA1C 7.3 (A) 06/10/2024 Current Assessment & Plan - A1c much improved from hospitalization - Follow up scheduled with [facility] Endo as scheduled - Given specialist f/up and improvement in BG control, no med adjustments made today - Cont metformin 500mg BID and glipizide 5mg daily Relevant Medications atorvastatin (Lipitor) 20 MG tablet Other Relevant Orders POCT Glucose (Completed) POCT HGB A1C (Completed) Referral to [facility] Eye Care Referral to Endocrinology Other Adjustment disorder Current Assessment & Plan - Adjustment disorder s/p CVAs - Continues with lexapro 5mg daily with good control of symptoms Healthcare maintenance Overview Mammo: order sent 06/10/24 Current Assessment & Plan Routine labs ordered as initiating care Relevant Orders Albumin, Random Urine W/Creatinine Lipid Panel, Standard TSH with Reflex to Free T4 Comprehensive Metabolic Panel CBC auto differential Chlamydia/N. Gonorrhoeae RNA, TMA, Urogenitial Hepatitis C Viral RNA, Quantitative, Real-Time PCR RPR (Monitor) with Reflex to Titer HIV-1/2 Antigen and Antibodies, Fourth Generation, with Reflexes Magnesium Vitamin D, 25-Hydroxy, Total, Immunoassay Vitamin B12/Folate, Serum Panel Hepatitis B Core Antibody, Total Hepatitis B Surface Antibody, Qualitative Hepatitis B surface antigen, EIA Other Visit Diagnoses Encounter for screening mammogram for malignant neoplasm of breast Relevant Orders BI Mammogram Screening Tomosynthesis Bilateral Bloating Relevant Medications simethicone (Mylicon) 80 MG tablet Follow up: 2-4 weeks for hypertension, sooner as needed Current Outpatient Medications Medication Sig Dispense Refill amLODIPine (Norvasc) 10 MG tablet Take 1 tablet by mouth Once per day. aspirin 81 MG EC tablet Take 1 tablet by mouth Once per day. atorvastatin (Lipitor) 20 MG tablet Take 1 tablet (20 mg) by mouth at bedtime. (Cholesterol) 90 tablet 1 cholecalciferol (Vitamin D-3) 50 MCG (2000 UT) tablet Take 1 tablet by mouth Once per day. clopidogrel (Plavix) 75 MG tablet Take 1 tablet by mouth Once per day. cyanocobalamin (Vitamin B-12) 1000 MCG tablet Take 1 tablet by mouth Once per day. escitalopram (Lexapro) 5 MG tablet Take 1 tablet by mouth Once per day. glipiZIDE (Glucotrol) 5 MG tablet Take 1 tablet by mouth before breakfast. magnesium oxide (Mag-Ox) 400 MG tablet Take 1 tablet by mouth 2 times daily. metFORMIN (Glucophage) 500 MG tablet Take 1 tablet by mouth 2 times daily. olmesartan (Benicar) 5 MG tablet Take 1 tablet (5 mg) by mouth Once per day. (Blood Pressure) 90 tablet 1 simethicone (Mylicon) 80 MG tablet Take 1-2 tablets (80-160 mg) by mouth every 8 (eight) hours if needed (bloating, gasses). 100 tablet 3 No current facility-administered medications for this visit. documented in this encounter Miscellaneous Notes * Assessment & Plan Note - RIANA You - 06/10/2024 1:12 PM ESTAssociated Problem(s): Healthcare maintenance Routine labs ordered as initiating care * Assessment & Plan Note - RIANA You - 06/10/2024 1:04 PM ESTAssociated Problem(s): Adjustment disorder - Adjustment disorder s/p CVA - Continues with lexapro 5mg daily with good control of symptoms * Assessment & Plan Note - RIANA You - 06/10/2024 1:03 PM ESTAssociated Problem(s): Type 2 diabetes mellitus, without long-term current use of insulin ([facility]) - A1c much improved from hospitalization - Follow up scheduled with [facility] Endo as scheduled - Given specialist f/up and improvement in BG control, no med adjustments made today - Cont metformin 500mg BID and glipizide 5mg daily * Assessment & Plan Note - RIANA You - 06/10/2024 12:59 PM EST Associated Problem(s): HTN (hypertension) -Goal <130/80 mmHg, Above goal per home and office readings. Cont amlodipine 10mg daily Start olmesartan 5mg daily. Reviewed med safety and SE Record home BP log and bring to f/up appt in 2-4 weeks Encourage Lifestyle interventions Previous medication: - Lisinopril 10mg daily (DC due to throat irritation) * Assessment & Plan Note - RIANA You - 06/10/2024 12:58 PM EST Associated Problem(s): CVA (cerebral vascular accident) (CMS/HCC) Med Regimen: - aspirin 81mg daily - clopidogrel 75mg daily (encouraged to discuss duration with Neurology) - Atorvastatin increased from 10mg to 20mg (previously unable to tolerate 80mg nightly) documented in this encounter Plan of Treatment Upcoming Encounters Date Type Department Care Team (Late st Contact Info) Description 06/24/2024 9:00 AM EST Office Visit [facility] ADULT DENTAL [address] [place] [address] Valiente-Francisco, Leona, DDS [address] [place] [address] 07/15/2024 11:15 AM EST Office Visit [facility] CH[facility] MED & PEDS [address] [place] [address] Erlinda Hernandez FNP [address] [place] [address] Scheduled Orders Name Type Priority Associated Diagnoses Orde r Schedule BI Mammogram Screening Tomosynthesis Bilateral Imaging Routine Encounter for screening mammogram for malignant neoplasm of breast Expected: 06/10/2024, Expires: 08/08/2025 Albumin, Random Urine W/Creatinine Lab Routine Healthcare maintenance Expected: 06/10/2024 (Approximate), Expires: 06/10/2025 Chlamydia/N. Gonorrhoeae RNA, TMA, Urogenitial Microbiology Routine Healthcare maintenance Expected: 06/10/2024, Expires: 06/10/2025 Hepatitis C Viral RNA, Quantitative, Real-Time PCR Lab Routine Healthcare maintenance Expected: 06/10/2024 (Approximate), Expires: 06/10/2025 RPR (Monitor) with Reflex to??Titer Lab Routine Healthcare maintenance Expected: 06/10/2024 (Approximate), Expires: 06/10/2025 HIV-1/2 Antigen and Antibodies, Fourth Generation, with Reflexes Lab Routine Healthcare maintenance Expected: 06/10/2024 (Approximate), Expires: 06/10/2025 Hepatitis B Core Antibody, Total Lab Routine Healthcare maintenance Expected: 06/10/2024 (Approximate), Expires: 06/10/2025 Hepatitis B Surface Antibody, Qualitative Lab Routine Healthcare maintenance Expected: 06/10/2024 (Approximate), Expires: 06/10/2025 Hepatitis B surface antigen, EIA Lab Routine Healthcare maintenance Expected: 06/10/2024 (Approximate), Expires: 06/10/2025 Scheduled Referrals Name Type Priority Associated Diagnoses Order Schedule Referral to [facility] Eye Care Outpatient Referral Routine Type 2 diabetes mellitus without complication, without long-term current use of insulin (CMS/HCC) Expected: 06/10/2024 (Approximate), Expires: 06/10/2025 Referral to Endocrinology Outpatient Referral Routine Type 2 diabetes mellitus without complication, without long-term current use of insulin (CMS/HCC) Expected: 06/10/2024 (Approximate), Expires: 06/10/2025 Referral to Neurology Outpatient Referral Routine Cerebrovascular accident (CVA), unspecified mechanism (CMS/HCC) Expected: 06/10/2024 (Approximate), Expires: 06/10/2025 documented as of this encounter Procedures Procedure Name Priority Date/Time Associated Diagnosis Comments VITAMIN D,25-OH,TOTAL,IA Routine 06/10/2024 11:59 AM EST Healthcare maintenance VITAMIN B12/FOLATE, SERUM PANEL Routine 06/10/2024 11:59 AM EST Healthcare maintenance TSH W/REFLEX TO FT4 Routine 06/10/2024 1 1:59 AM EST Healthcare maintenance CBC WITH AUTO DIFFERENTIAL Routine 06/10/2024 11:59 AM EST Healthcare maintenance MAGNESIUM Routine 06/10/2024 11:59 AM EST Healthcare maintenance LIPID PANEL, STANDARD Routine 06/10/2024 11:59 AM EST Healthcare maintenance COMPREHENSIVE METABOLIC PANEL Routine 06/10/2024 11:59 AM EST Healthcare maintenance POCT GLYCATED HEMOGLOBIN, TOTAL Routine 06/10/2024 10:42 AM EST Type 2 diabetes mellitus without complication, without long-term current use of insulin ([facility]/HCC) POCT GLUCOSE Routine 06/10/2024 10:42 AM EST Type 2 diabetes mellitus without complication, without long-term current use of insulin ([facility]) documented in this encounter Results * Vitamin B12/Folate, Serum Panel (06/10/2024 11:59 AM EST) Vitamin B12 839 200 - 900 pg/mL [facility] Comment:NORMAL 200-900 PG/ML INDETERMINATE 160-199 PG/ML DEFICIENT < 160 PG/ML Folate 9.2 > or = 4.0 ng/mL [facility] Comment:Reference Values:> o r = 4.0 ng/mL< 4.0 ng/mL suggests folate deficiency Methotrexate, aminopterin and folinic acid(leucovorin) are chemotherapeutic agents whose molecularstructures are similar to folate; therefore, the Architectfolate assay cannot be used for patients using these drugs. Blood Venous blood specimen / Unknown 06/10/2024 11:59 AM EST 06/10/2024 2:21 PM EST us Erlinda Hernandez [facility] BLOOD ORDERABLES Final Res ult [facility] [address] [place] [phone] [phone] * (ABNORMAL) Vitamin D, 25-Hydroxy, Total, Immunoassay (06/10/2024 11:59 AM EST) Vitamin D 25-OH Total 27.6(L) >30 ng/mL [facility] Comment:Health Based Referen ce Values*< 20 ng/mL Azpqovnpx65-90 ng/mL Insufficient> 30 ng/mL Sufficient*Eric SANABRIA. N Engl J Med. 2007;357:266-280Care must be taken in interpreting Vitamin D results fromdifferent laboratories and methodologies. Published datademonstrated that results from patients undergoinghemodialysis may show a negative bias when tested withvarious automated 25-OH vitamin D assays when compared toLC-MS/MS.When testing samples from patients whose predominant form ofVitamin D is Vitamin D2, such as patients receiving VitaminD2 supplementation, results that are subtherapeutic shouldbe confirmed with another method such as LC-MS/MS. Blood Venous blood specimen / Unknown 06/10/2024 11:59 AM EST 06/10/2024 2:21 PM EST Erlinda Hernandez [facility] BLOOD ORDERABLES Final Res ult Performing Organization Address [facility] Co de Phone Number [facility] [address] [place] [phone] * Magnesium (06/10/2024 11:59 AM EST) Magnesium 2.1 1.6 - 2.6 mg/dL [facility] Blood Venous blood specimen / Unknown 06/10/2024 11:59 AM EST 06/10/2024 2:21 PM EST Erlinda Hernandez [facility] BLOOD ORDERABLES Final Res ult Performing Organization Address [facility] Co de Phone Number [facility] [address] [place] [phone] * (ABNORMAL) CBC auto differential (06/10/2024 11:59 AM EST) White Blood Count 10.1 4.8 - 10.8 X10*3/uL [facility] Red Blood Count 4.60 4.20 - 5.50 X10*6/uL [facility] Hemoglobin 13.4 12.0 - 16.0 g/dl [facility] Hematocrit 40.0 37.0 - 47.0 % [facility] Mean Corpuscular Volume 87.0 80.0 - 98.0 fL [facility] Mean Corpuscular Hemoglobin 29.1 27.0 - 33.0 pg [facility] Mean Corpuscular HGB Conc 33.5 31.0 - 35.0 g/dl [facility] Red Cell Distribution Width 13.1 11.0 - 16.0 % [facility] Platelet Count 401(H) 160 - 400 X10*3/uL [facility] Mean Platelet Volume 11.3 9.4 - 12.3 fL [facility] Neutrophils Percent Auto 81.7(H) 45 - 73 % [facility] Imm Gran Pct Auto 0.3 0.0 - 0.4 % [facility] Lymphocytes Percent Auto 11.2(L) 20 - 40 % [facility] Monocytes Percent Auto 5.7 2 - 11 % [facility] Eosinophils Percent Auto 0.9 0 - 4 % [facility] Basophils Percent Auto 0.2 0 - 2 % [facility] NRBC Pct Auto 0.0 0.0 - 0.2 /100WBC [facility] Neutrophils Absolute Auto 8.3 2.0 - 8.3 x10*3/uL [facility] Imm Gran Abs Auto 0.03 0.00 - 0.03 X10*3/uL [facility] Lymphocytes Absolute Auto 1.1(L) 1.2 - 4.9 X10*3/uL [facility] Monocytes Absolute Auto 0.6 0.1 - 1.2 X10*3/uL [facility] Eosinophils Absolute Auto 0.1 0.0 - 0.4 X10*3/uL [facility] Basophils Absolute Auto 0.0 0.0 - 0.2 X10*3/uL [facility] NRBC Abs Auto 0.000 0.0 - 0.012 X10*3/uL [facility] Blood Venous blood specimen / Unknown 06/10/2024 11:59 AM EST 06/10/2024 2:21 PM EST us Erlinda Hernandez [employer] [facility] BLOOD ORDERABLES Final Res ult Performing Organization Address City/[facility]/ZIP Co de Phone Number [facility] [address] [place] [address] [phone] * (ABNORMAL) Comprehensive Metabolic Panel (06/10/2024 11:59 AM EST) Sodium 140 135 - 145 mmol/L [facility] Potassium 4.1 3.3 - 5.1 mmol/L [facility] Chloride 108 96 - 108 mmol/L [facility] Carbon Dioxide 21(L) 22 - 29 mmol/L [facility] Anion Gap 15 12 - 20 [facility] Urea Nitrogen (BUN) 16 9 - 16 mg/dL [facility] Creatinine, Serum 0.65 0.5 - 1.4 mg/dL [facility] Estimated Glomerular Filt Rate >60 [facility] Comment:Chronic Kidney Disea se: Estimated GFR < 60 mL/min/1.95c5Cszurt Kidney Disease: Estimated GFR < 15 mL/min/1.73m2 Glucose 78 60 - 115 mg/dL [facility] Calcium 9.6 8.4 - 10.2 mg/dL [facility] Bilirubin, Total 0.3 0.0 - 1.0 mg/dL [facility] Aspartate Amino Transferase 23 5 - 31 U/L [facility] Alanine Aminotransferase 21 0 - 31 U/L [facility] Total Protein 7.8 6.5 - 8.0 g/dL [facility] Albumin Level 4.0 3.5 - 5.0 g/dL [facility] Alkaline Phosphatase 73 39 - 117 U/L [facility] Blood Venous blood specimen / Unknown 06/10/2024 11:59 AM EST 06/10/2024 2:21 PM EST us Erlinda Hernandez PIPE FITTER MAINTENANCE LAB BLOOD ORDERABLES Final Res ult Performing Organization Address City[facility]/ZIP Co de Phone Number [facility] [address] [place] [address] [phone] * TSH with Reflex to Free T4 (06/10/2024 11:59 AM EST) TSH reflex Free T4 1.16 0.32 - 4.0 uIU/mL [facility] Blood 06/10/2024 11:5 9 AM EST 06/10/2024 2:21 PM EST Erlinda Hernandez PIPE FITTER MAINTENANCE LAB BLOOD ORDERABLES Final Res ult [facility] [address] [place] [address] [phone] * Lipid Panel, Standard (06/10/2024 11:59 AM EST) Triglycerides 124 <150 mg/dL [facility] Comment:Desirable Triglyceri de: less than 150 mg/dLBorderline High Triglyceride 150-199 mg/dLHigh Triglyceride: 200-499 mg/dLVery High Triglyceride: greater than or equal to 5OO mg/dL Cholesterol 132 <200 mg/dL [facility] Comment:Desirable Cholestero l: less than 200 mg/dLBorderline High Cholesterol: 200-239 mg/dLHigh Cholesterol: greater than 239 mg/dL LDL Cholesterol Calculated 65 <100 mg/dL [facility] Comment:Desirable LDL: less than 100 mg/dLNear Optimal/Above Optimal LDL: 110- 129 mg/dLBorderline High LDL: 130-159 mg/dLHigh LDL: 160-189 mg/dLVery High LDL: greater than or equal to 190 mg/dL HDL Cholesterol 43 >40 mg/dL [facility] Comment:Desirable HDL: great er than 40 mg/dL Note: This HDL assay may give artificially low results in patients with liver disease. Blood Venous blood specimen / Unknown 06/10/2024 11:59 AM EST 06/10/2024 2:21 PM EST us Erlinda Hernandez PIPE FITTER MAINTENANCE LAB BLOOD ORDERABLES Final Res ult [facility] [address] [place] [phone] [phone] * (ABNORMAL) POCT HGB A1C (06/10/2024 10:42 AM EST) Hemoglobin A1C 7.3(A) 4.0 - 6.0 % QC Media Lot # [id number] Lot# Expiration Date [id number] Blood 06/10/2024 10:4 2 AM EST Erlinda MAYERS POINT OF CARE TEST ENTER/EDIT ORDERABLES Final Result * POCT Glucose (06/10/2024 10:42 AM EST) Glucose Blood, POC 117 60 - 200 mg/dL Comment:random QC Media Lot # [id number] Lot# Expiration Date [id number] Blood Capillary blood specimen / Unknown 06/10/2024 10:42 AM EST Erlinda MAYERS POINT OF CARE TEST ENTER/EDIT ORDERABLES Final Result documented in this encounter Visit Diagnoses Diagnosis Cerebrovascular accident (CVA), unspecified mechanism (CMS/HCC)- Primary Encounter for screening mammogram for malignant neoplasm of breast Healthcare maintenance Primary hypertension Unspecified essential hypertension Type 2 diabetes mellitus without complication, without long-term current use of insulin (CMS/HCC) Adjustment disorder, unspecified type Bloating Flatulence, eructation, and gas pain documented in this encounter Care Teams Risk Control Consultant Relationship Specialty Start Date End Date Erlinda Hernandez FNP [address] [place] [phone] PCP - General Family Medicine 06/10/24 documented as of this encounter
--- OUTSIDE RECORDS SUMMARY | 2024-06-10 16:51 | XMS_ITS | Encounter Summary ---
Author Organization [employer] Address [address] [facility] [address] [place] [address] Care Team Providers Care Control Panel Operator Crude Unit Name Role Phone Erlinda Hernandez RIANA Primary Care Provider [phone] Reason for Visit * Reason Onset Date Comments HDF/SITE OPERATIONS MANAGER appt 06/10/2024 Encounter Details Date Type Department Care Team (Late Contact Info) Description 06/10/2024 Telephone [facility] [address] [place] [address] Julieta Sullivan, DINH [address] [place] [address] HDF/SITE OPERATIONS MANAGER appt Social History Tobacco Use Types Packs/Day Years Used Date Smoking Tobacco: Never Passive Smoke Exposure: Never Alcohol Use Standard Drinks/Week Comments Never 0 (1 standard drink = 0.6 oz pur e alcohol) Comments Unknown Sex and Gender Information Value Date Recorded Sex Assigned at Female 02/22/2023 9:49 AM EDT Legal Sex Female 9:43 AM EDT Gender Identity Female 02/22/2023 9:49 AM EDT Sexual Orientation Straight 02/22/2023 9: 49 AM EDT documented as of this encounter Miscellaneous Notes * Telephone Encounter - Julieta Sullivan RN - 06/10/2024 8:[address] Garcia out of office today. Pt called and scheduled with Mary at 10:30. She agrees to plan. documented in this encounter Plan of Treatment Upcoming Encounters Date Type Department Care Team (Late Contact Info) Description 06/24/2024 9:00 AM EST Office Visit [facility] ADULT DENTAL [address] [place] [address] Rocco-eLona Francisco, DDS [address] [place] [address] 07/15/2024 11:15 AM EST Office Visit [facility]ED[facility] [address] [place] [address] Erlinda Hernandez FNP [address] [place] [address] documented as of this encounter Visit Diagnoses Not on filedocumented in this encounter Care Teams Control Panel Operator Crude Unit Relationship Specialty Start Date End Date Erlinda Hernandez FNP [address] [place] [address] PCP - General Family Medicine 06/10/24 documented as of this encounter
--- OUTSIDE RECORDS SUMMARY | 2024-06-10 16:51 | XMS_ITS | Encounter Summary ---
Author Organization [facility] Address [address] [facility] [address] [place] [address] Care Team Providers Care Rod Puller Name Role Phone Erlinda Hernandez Primary Care Provider [phone] Encounter Details Date Type Department Care Team (Latest Contact Info) Description 06/10/2024 Travel Social History Tobacco Use Types Packs/Day Years [...] AM EDT documented as of this encounter Plan of Treatment Upcoming Encounters Date Type Department Care Team (Late st Contact Info) Description 06/24/2024 9:00 AM EST Office Visit [facility] ADULT DENTAL [address] [place] [address] Valiente-Francisco, Leona, DDS [address] [place] [address] 07/15/2024 11:15 AM EST Office Visit [facility] CHC MED & PEDS [address] [place] [address] Erlinda Hernandez FNP [address] [place] [address] documented as of this encounter Visit Diagnoses Not on filedocumented in this encounter Care Teams Rod Puller Relationship Specialty Start Date End Date Erlinda Hernandez FNP [address] [place] [address] PCP - General Family Medicine 06/10/24 documented as of this encounter
--- OUTSIDE RECORDS SUMMARY | 2024-06-10 16:51 | XMS_ITS | Clinical Summary ---
Author Organization [employer] Address [address] [place] [address] Care Team Providers Care Enrichment Specialist Name Role Phone Erlinda Hernandez RIANA Primary Care Provider [phone] Allergies No known active allergies Medications metFORMIN (Glucophage) 500 MG tablet Take 1 tablet by mouth 2 times daily. 06/14/19 23 Active amLODIPine (Norvasc) 10 MG tablet Take 1 tablet by mouth Once per day. 05/30/19 025 Active aspirin 81 MG EC tablet Take 1 tablet by mouth Once per day. 05/29/19 025 Active clopidogrel (Plavix) 75 MG tablet Take 1 tablet by mouth Once per day. 05/29/19 25 025 Active cholecalciferol (Vitamin D-3) 50 MCG (2000 UT) tablet Take 1 tablet by mouth Once per day. 05/30/19 025 Active cyanocobalamin (Vitamin B-12) 1000 MCG tablet Take 1 tablet by mouth Once per day. 05/30/19 025 Active escitalopram (Lexapro) 5 MG tablet Take 1 tablet by mouth Once per day. 05/30/19 025 Active glipiZIDE (Glucotrol) 5 MG tablet Take 1 tablet by mouth before breakfast. 05/30/19 25 025 Active magnesium oxide (Mag-Ox) 400 MG tablet Take 1 tablet by mouth 2 times daily. 05/29/19 25 025 Active olmesartan (Benicar) 5 MG tabletIndication s:Primary hypertension Take 1 tablet (5 mg) by mouth Once per day. (Blood Pressure) 90 tablet 1 06/10/19 25 026 Active simethicone (Mylicon) 80 MG tabletIndication s:Bloating Take 1-2 tablets (80-160 mg) by mouth every 8 (eight) hours if needed (bloating, gasses). 100 tablet 3 06/10/19 25 Active atorvastatin (Lipitor) 20 MG tabletIndication s:Type 2 diabetes mellitus without complication, without long-term current use of insulin (CMS/HCC) Take 1 tablet (20 mg) by mouth at bedtime. (Cholestero l) 90 tablet 1 06/10/19 25 026 Active lisinopril 10 MG tablet 06/14/19 23 025 Discontinued(Me d list cleanup (will not trigger notification to Pharmacy)) atorvastatin (Lipitor) 10 MG tablet Take 1 tablet by mouth at bedtime. 05/29/19 025 Discontinued(Do se adjustment) Active Problems Problem Noted Date Diagnosed Date Adjustment disorder 06/10/2024 Assessment & Plan (06/10/2024 1:04 PM EST): - Adjustment disorder s/p CVA - Continues with lexapro 5mg daily with good control of symptoms Healthcare maintenance 06/10/2024 Overview (06/10/2024): Mammo: order sent 06/10/24 Assessment & Plan (06/10/2024 1:12 PM EST): Routine labs ordered as initiating care HTN (hypertension) 06/04/2024 Assessment & Plan (06/10/2024 1:00 PM EST): -Goal <130/80 mmHg, Above goal per home and office readings. Cont amlodipine 10mg daily Start olmesartan 5mg daily. Reviewed med safety and SE Record home BP log and bring to f/up appt in 2-4 weeks Encourage Lifestyle interventions Previous medication: - Lisinopril 10mg daily (DC due to throat irritation) Type 2 diabetes mellitus, wi thout long-term current use of insulin 06/04/2024 Overview (06/10/2024): Lab Results Component Value Date HGBA1C 7.3 (A) 06/10/2024 Assessment & Plan (06/10/2024 1:03 PM EST): - A1c much improved from hospitalization - Follow up scheduled with [facility] as scheduled - Given specialist f/up and improvement in BG control, no med adjustments made today - Cont metformin 500mg BID and glipizide 5mg daily CVA (cerebral vascular accident) 06/04/2024 Overview (06/10/2024): CVA 03/26/24 - [facility] Admission. CVA Apr 2024 - [facility] Admission. MRI brain demonstrated acute-subacute right pontine infarct w/o hemorrhagic transformation Assessment & Plan (06/10/2024 1:22 PM EST): Med Regimen: - aspirin 81mg daily - clopidogrel 75mg daily (encouraged to discuss duration with Neurology) - Atorvastatin increased from 10mg to 20mg (previously unable to tolerate 80mg nightly) Pre-infarction syndrome 02/22/2023 Overview (02/22/2023): 2015 and apr 2022 Arthritis 02/22/2023 Resolved Problems Problem Noted Date Diagnosed Date Resolved Date Liver failure 02/22/2023 06/10/2024 Encounters Date Type Department Care Team Description 06/10/2024 10:30 AM EST Office Visit [facility] [address] [place] [address] Erlinda Hernandez FNP Cerebrovascular accident (CVA), unspecified mechanism (CMS/HCC) (Primary Dx); Encounter for screening mammogram for malignant neoplasm of breast; Healthcare maintenance; Primary hypertension; Type 2 diabetes mellitus without complication, without long-term current use of insulin (CMS/HCC); Adjustment disorder, unspecified type; Bloating 06/10/2024 Travel 06/10/2024 Telephone [facility] [address] [place] [address] Julieta Sullivan RN HDF/WEATHERIZATION TECHNICIAN appt 05/23/2024 Patient Outreach [facility] [address] [place] [address] Sherin Garcia MD Transition Of Care (Tcm) (HDF- Scheduled) 05/14/2024 Telephone [facility] [address] [place] [address] Sherin Garcia MD Transition Of Care (Tcm) (REGARDING: CALL TO [facility]) 05/10/2024 Orders Only [facility] Information Management [address], [place] [phone] ProviderEdmond MD 05/09/2024 Telephone [facility] [address], [place] [phone] Sherin Garcia MD Transition Of Care (Tcm) (HDF- scheduled and SDOH screening to be completed in office ) from Last 3 Months Family History Medical History Relation Name Comments Breast cancer Mother's Sister Relation Name Status Comments Mother's Sister Social History Tobacco Use Types Packs/Day Years [...] Orientation Straight 02/22/2023 9: 49 AM EDT Last Filed Vital Signs Vital Sign Reading [...] - - Body Mass Index - - Plan of Treatment Upcoming Encounters Date Type Department Care Team (Late st Contact Info) Description 06/24/2024 9:00 AM EST Office Visit [facility] [address] [place], [place] [phone] Karla Leona, DDS [address] [place] [address] 07/15/2024 11:15 AM EST Office Visit [facility] [address] [place] [address] Erlinda Hernandez, CHEMICAL LABORATORY ASSISTANT [address] [place] [address] Health Maintenance Due Date Last Done Comments CT Colonography 1977 Colonoscopy 1977 Colorectal Cancer Screening 1977 Dental Oral Exam 1977 Dental Prophylaxis 1977 Dental X-Ray: Full Mouth 1977 Depression Screening 1977 FIT DNA/Cologuard 1977 FIT 1977 FOBT 1977 HIV Screening 1977 SDOH Screening 1977 Sigmoidoscopy 1977 Pneumococcal Vaccine: Pediat rics (0 to 5 Years) and At-Risk Patients (6 to 64 Years) (1 of 2 - PCV) 1983 Diabetes: Foot Exam 1987 Eye Exam 1987 Alcohol/Substance Use Screening 1989 Family Planning (PISQ) 1992 Hepatitis C Screening 1995 DTaP/Tdap/Td Vaccines (1 - Tdap) 1996 Diabetes: Urine Protein Screening 1996 Hepatitis B Vaccines (1 of 3 - 19+ 3-dose series) 1996 Pap Smear 1998 Cervical Cancer Screening 2007 HPV/Cotest 2007 Mammogram 2017 COVID-19 Vaccine (1 - 2023-2 5 season) 2024 Influenza Vaccine (#1) 2024 Dental X-Ray: Bitewings 02/24/2024 02/22/2023 Diabetes: Hemoglobin A1C 09/08/2024 06/10/2024 Lipid Panel 06/10/2025 06/10/2024 Tobacco Screening 06/10/2025 06/10/2024 Zoster Vaccines (1 of 2) 2027 RSV Patients and Pa tients Aged 60 years or older (1 - 1-dose 75+ series) 2052 HIB Vaccines Aged Out No longer eligi ble based on patient's age to complete this topic HPV Vaccines Aged Out No longer eligi ble based on patient's age to complete this topic Hepatitis A Vaccines Aged Out No long er eligible based on patient's age to complete this topic IPV Vaccines Aged Out No longer eligi ble based on patient's age to complete this topic Meningococcal Vaccine Aged Out No donis deng eligible based on patient's age to complete this topic RSV under 20 months Aged Out No longe r eligible based on patient's age to complete this topic Rotavirus Vaccines Aged Out No longer eligible based on patient's age to complete this topic Procedures Procedure Name Priority Date/Time Associated Diagnosis Comments VITAMIN B12/FOLATE, SERUM PANEL Routine 06/10/2024 11:59 AM EST Healthcare maintenance VITAMIN D,25-OH,TOTAL,IA Routine 06/10/2024 11:59 AM EST Healthcare maintenance MAGNESIUM Routine 06/10/2024 11:59 AM EST Healthcare maintenance CBC WITH AUTO DIFFERENTIAL Routine 06/10/2024 11:59 AM EST Healthcare maintenance COMPREHENSIVE METABOLIC PANEL Routine 06/10/2024 11:59 AM EST Healthcare maintenance TSH W/REFLEX TO FT4 Routine 06/10/2024 1 1:59 AM EST Healthcare maintenance LIPID PANEL, STANDARD Routine 06/10/2024 11:59 AM EST Healthcare maintenance POCT GLYCATED HEMOGLOBIN, TOTAL Routine 06/10/2024 10:42 AM EST Type 2 diabetes mellitus without complication, without long-term current use of insulin (CMS/HCC) POCT GLUCOSE Routine 06/10/2024 10:42 AM EST Type 2 diabetes mellitus without complication, without long-term current use of insulin (CMS/HCC) MRI BRAIN WO CONTRAST Routine 05/09/2024 1:24 PM EST BITEWING - SINGLE RADIOGRAPHIC IMAGE Routine 02/22/2023 11:30 AM EDT Subacute liver failure without hepatic coma Pre-infarction syndrome (CMS/HCC) Arthritis Dental caries from Last 3 Months or Most Recently Relevant to Health Maintenance Results * (ABNORMAL) Vitamin D, 25-Hydroxy, Total, Immunoassay (06/10/2024 11:59 AM EST) Vitamin D 25-OH Total 27.6(L) >30 ng/mL [facility] Comment:Health Based Referen ce Values*< 20 ng/mL [id number] ng/mL Insufficient> 30 ng/mL Sufficient*Eric SANABRIA. N [...] 06/10/2024 2:21 PM EST us Erlinda Hernandez CHEMICAL LABORATORY ASSISTANT LAB BLOOD ORDERABLES Final Res ult [facility] [address] [place] [address] [phone] * Vitamin B12/Folate, Serum Panel (06/10/2024 11:59 AM EST) Vitamin B12 839 200 - 900 pg/mL [facility] Comment:NORMAL 200-900 PG/ML INDETERMINATE 160-199 PG/ML DEFICIENT < 160 PG/ML Folate 9.2 > or = 4.0 ng/mL [facility] Comment:Reference Values:> o r = 4.0 ng/mL< 4.0 ng/mL suggests folate deficiency Methotrexate, aminopterin and folinic acid(leucovorin) are chemotherapeutic agents whose molecularstructures are similar to folate; therefore, the Architectfolate assay cannot be used for patients using these drugs. Blood Venous blood specimen / Unknown 06/10/2024 11:59 AM EST 06/10/2024 2:21 PM EST Erlinda Hernandez CHEMICAL LABORATORY ASSISTANT LAB BLOOD ORDERABLES Final Res ult Performing Organization Address City/[facility]/ZIP Co de Phone Number [facility] [address] [place] [address] [phone] * TSH with Reflex to Free T4 (06/10/2024 11:59 AM EST) Pathologist [facility] TSH reflex Free T4 1.16 0.32 - 4.0 uIU/mL [facility] Blood 06/10/2024 11:5 9 AM EST 06/10/2024 2:21 PM EST Erlinda Hernandez [facility] LAB BLOOD ORDERABLES Final Res ult Performing Organization Address City/[facility]/ZIP Co de Phone Number [facility] [address] [place] [phone] * (ABNORMAL) CBC auto differential (06/10/2024 11:59 AM EST) White Blood Count 10.1 4.8 - 10.8 X10*3/uL [facility] Red Blood Count 4.60 4.20 - 5.50 X10*6/uL [facility] Hemoglobin 13.4 12.0 - 16.0 g/dl [facility] Hematocrit 40.0 37.0 - 47.0 % [facility] Mean Corpuscular Volume 87.0 80.0 - 98.0 fL [facility] Mean Corpuscular Hemoglobin 29.1 27.0 - 33.0 pg [facility] Mean Corpuscular HGB Conc 33.5 31.0 - 35.0 g/dl [facility] Red Cell Distribution Width 13.1 11.0 - 16.0 % [facility] Platelet Count 401(H) 160 - 400 X10*3/uL [facility] Mean Platelet Volume 11.3 9.4 - 12.3 fL [facility] Neutrophils Percent Auto 81.7(H) 45 - 73 % [facility] Imm Gran Pct Auto 0.3 0.0 - 0.4 % [facility] Lymphocytes Percent Auto 11.2(L) 20 - 40 % [facility] Monocytes Percent Auto 5.7 2 - 11 % [facility] Eosinophils Percent Auto 0.9 0 - 4 % [facility] Basophils Percent Auto 0.2 0 - 2 % [facility] NRBC Pct Auto 0.0 0.0 - 0.2 /100WBC [facility] Neutrophils Absolute Auto 8.3 2.0 - 8.3 x10*3/uL [facility] Imm Gran Abs Auto 0.03 0.00 - 0.03 X10*3/uL [facility] Lymphocytes Absolute Auto 1.1(L) 1.2 - 4.9 X10*3/uL [facility] Monocytes Absolute Auto 0.6 0.1 - 1.2 X10*3/uL [facility] Eosinophils Absolute Auto 0.1 0.0 - 0.4 X10*3/uL [facility] Basophils Absolute Auto 0.0 0.0 - 0.2 X10*3/uL [facility] NRBC Abs Auto 0.000 0.0 - 0.012 X10*3/uL [facility] Blood Venous blood specimen / Unknown 06/10/2024 11:59 AM EST 06/10/2024 2:21 PM EST us Erlinda Hernandez CHEMICAL LABORATORY ASSISTANT LAB BLOOD ORDERABLES Final Res ult [facility] [address] [place] [phone] * Magnesium (06/10/2024 11:59 AM EST) Magnesium 2.1 1.6 - 2.6 mg/dL [facility] Blood Venous blood specimen / Unknown 06/10/2024 11:59 AM EST 06/10/2024 2:21 PM EST Erlinda Hernandez [facility] LAB BLOOD ORDERABLES Final Res ult Performing Organization Address City/[facility]/ZIP Co de Phone Number [facility] [address] [place] [phone] * Lipid Panel, Standard (06/10/2024 11:59 AM EST) Triglycerides 124 <150 mg/dL [facility] Comment:Desirable Triglyceri de: less than 150 mg/dLBorderline High Triglyceride 150-199 mg/dLHigh Triglyceride: 200-499 mg/dLVery High Triglyceride: greater than or equal to 5OO mg/dL Cholesterol 132 <200 mg/dL [facility] Comment:Desirable Cholestero l: less than 200 mg/dLBorderline High Cholesterol: 200-239 mg/dLHigh Cholesterol: greater than 239 mg/dL LDL Cholesterol Calculated 65 <100 mg/dL [facility] Comment:Desirable LDL: less than 100 mg/dLNear Optimal/Above Optimal LDL: 110- 129 mg/dLBorderline High LDL: 130-159 mg/dLHigh LDL: 160-189 mg/dLVery High LDL: greater than or equal to 190 mg/dL HDL Cholesterol 43 >40 mg/dL [facility] Comment:Desirable HDL: great er than 40 mg/dL Note: This HDL assay may give artificially low results in patients with liver disease. Blood Venous blood specimen / Unknown 06/10/2024 11:59 AM EST 06/10/2024 2:21 PM EST Erlinda Hernandez [facility] LAB BLOOD ORDERABLES Final Res ult Performing Organization Address City/[facility]/ZIP Co de Phone Number [facility] [address] [place] [phone] * (ABNORMAL) Comprehensive Metabolic Panel (06/10/2024 11:59 AM EST) Sodium 140 135 - 145 mmol/L [facility] Potassium 4.1 3.3 - 5.1 mmol/L [facility] Chloride 108 96 - 108 mmol/L [facility] Carbon Dioxide 21(L) 22 - 29 mmol/L [facility] Anion Gap 15 12 - 20 [facility] Urea Nitrogen (BUN) 16 9 - 16 mg/dL [facility] Creatinine, Serum 0.65 0.5 - 1.4 mg/dL [facility] Estimated Glomerular Filt Rate >60 [facility] Comment:Chronic Kidney Disea se: Estimated GFR < 60 mL/min/[id number] Kidney Disease: Estimated GFR < 15 mL/min/1.73m2 Glucose 78 60 - 115 mg/dL [facility] Calcium 9.6 8.4 - 10.2 mg/dL [facility] Bilirubin, Total 0.3 0.0 - 1.0 mg/dL [facility] Aspartate Amino Transferase 23 5 - 31 U/L [facility] Alanine Aminotransferase 21 0 - 31 U/L [facility] Total Protein 7.8 6.5 - 8.0 g/dL [facility] Albumin Level 4.0 3.5 - 5.0 g/dL [facility] Alkaline Phosphatase 73 39 - 117 U/L [facility] Blood Venous blood specimen / Unknown 06/10/2024 11:59 AM EST 06/10/2024 2:21 PM EST us Erlinda Hernandez CHEMICAL LABORATORY ASSISTANT LAB BLOOD ORDERABLES Final Res ult [facility] [address] [place] [phone] * (ABNORMAL) POCT HGB A1C (06/10/2024 10:42 AM EST) Hemoglobin A1C 7.3(A) 4.0 - 6.0 % QC Media Lot # [id number] Lot# Expiration Date [id number] Blood 06/10/2024 10:4 2 AM EST Erlinda Dominiquelukasz CHEMICAL LABORATORY ASSISTANT POINT OF CARE TEST ENTER/EDIT ORDERABLES Final Result * POCT Glucose (06/10/2024 10:42 AM EST) Glucose Blood, POC 117 60 - 200 mg/dL Comment:random QC Media Lot # [id number] Lot# Expiration Date 482 Blood Capillary blood specimen / Unknown 06/10/2024 10:42 AM EST Erlinda Hernandez CHEMICAL LABORATORY ASSISTANT POINT OF CARE TEST ENTER/EDIT ORDERABLES Final Result * MRI BRAIN WO CONTRAST (05/09/2024 1:24 PM EST) Anatomical Region Laterality Modality Magnetic Resonan ce Historical Provider MD [facility] MRI PROCEDURES Final Result from Last 3 Months Insurance [facility] C3 DENTAL-[facility] MEDICAID STAND ADULT Care Teams Enrichment Specialist Relationship Specialty Start Date End Date Erlinda Hernandez FNP [address] [place] [address] PCP - General Family Medicine 06/10/24
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
--- OUTSIDE RECORDS SUMMARY | 2024-06-10 16:52 | XMS_ITS | Encounter Summary ---
Author Organization [facility] Address [address] [facility] [address] [place] [address] Care Team Providers Care Under Seal Operator Name Role Phone Erlinda Hernandez RIANA Primary Care Provider Reason for Visit * Reason Onset Date Comments New Patient 03/16/2023 Encounter Details Date Type Department Care Team (Late st Contact Info) Description 03/16/2023 Telephone [facility] MEDICINE [address] [place] [id number] Lenard Hays MD [address] [place] [phone] New Patient Social History Tobacco Use Types Packs/Day Years Used Date Smoking Tobacco: Never Alcohol Use Standard Drinks/Week Comments [...] encounter Miscellaneous Notes * Telephone Encounter - Wilfredo Huber - 03/16/2023 2:26 PM EDT 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 EFFECTIVE SINCE 03/16/2023 documented in this encounter Plan of Treatment Upcoming Encounters Date Type Department Care Team (Late st Contact Info) Description 06/24/2024 9:00 AM EST Office Visit [facility] ADULT DENTAL [address] [place] [address] Valiente-Francisco, Leona, DDS [address] [place] [address] 07/15/2024 11:15 AM EST Office Visit [facility] CHC MED & PEDS [address] [place], [place] [phone] Erlinda Hernandez FNP [address], [place] [phone] documented as of this encounter Visit Diagnoses Not on filedocumented in this encounter Care Teams Under Seal Operator Relationship Specialty Start Date End Date Erlinda Hernandez FNP [address] [place] [address] PCP - General Family Medicine 06/10/24 documented as of this encounter
--- OUTSIDE RECORDS SUMMARY | 2024-06-10 16:54 | XMS_ITS | Encounter Summary ---
Author Organization [facility] Address [address] [facility] [address] [place] [address] Care Team Providers Care Obstetrician And Gynaecologist Name Role Phone Unavailable Primary Care Provider Unavailabl e Reason for Visit * Reason Comments Transition Of Care (Tcm) HDF- Scheduled Encounter Details Date Type Department Care Team ([facility] st Contact Info) Description 05/23/2024 Patient Outreach [facility] CHC MED & PEDS [address] [place] [address] Sherin Garcia MD [address] [place] [address] Transition Of Care (Tcm) (HDF- Scheduled) Social History Tobacco Use Types Packs/Day Years [...] as of this encounter Miscellaneous Notes * Significant Event - Kyra Ann - 05/23/2024 4:38 PM EST 05/23/24 1637 Hospital Discharges and Admission for [facility] Type of Visit Hospital Admission Date of Admission/Visit 04/19/24 Date of Discharge 05/31/24 Facility [facility] Diagnosis Stroke Disposition Discharged Home Follow-Up Actions Follow-Up Needed Provider appointment Follow-Up Outcome Spoke to Caregiver;Booked Appointment Initial Contact Date 05/23/24 Received incoming call from the [facility]. [facility]. Patient has been scheduled for an HDF/THREAT ANALYST appointment on 06/10/2024 at 9:30AM with Dr. Sherin Garcia. CM requested discharge summaries to be faxed to the Care Management Department at [phone]. CC will follow up on discharge summary following patient's discharge. Insurance verified prior to scheduling. documented in this encounter Plan of Treatment Upcoming Encounters Date Type Department Care Team (Late st Contact Info) Description 06/24/2024 9:00 AM EST Office Visit [facility] ADULT DENTAL [address] [place] [address] Leona Acosta DDS [address] [place] [address] 07/15/2024 11:15 AM EST Office Visit [facility] CHC MED & PEDS [address] [place], [place] [phone] Erlinda Hernandez FNP [address], [place] [phone] documented as of this encounter Visit Diagnoses Not on filedocumented in this encounter
--- OUTSIDE RECORDS SUMMARY | 2024-06-10 16:54 | XMS_ITS | Encounter Summary ---
Author Organization [facility] [place] [address] Care Team Providers Care Powder Mill Operator Name Role Phone Sherin Garcia MD Primary Care Provider [phone] Encounter Details Date Type Department Care Team ([facility] Contact Info) Description 05/13/2024 Plan of Care Documentation [facility] Inpatient Rehab [address] [place] [address] Social History Tobacco Use Types [...] Progress Notes * Lina Zhu, OT - 05/13/2024 11:10 AM EST Physical Medicine and Rehabilitation Team Conference Interdisciplinary Team Meeting Patient Name: Amalia Ann Date of : 1975 Sex: Female Payor Info: [place] / Plan[place] / Product Type: *No Product type* / Admitting Diagnosis: Stroke ([facility]) [I63.9] Admit Date/Time: 04/19/2024 5:41 PM Primary Rehab (Etiologic) Diagnosis: Patient Active Problem List Diagnosis HTN (hypertension) DM (diabetes mellitus) ([facility]) CVA (cerebral vascular accident) ([facility]) Team Discussion UPDATES: Physician: No new updates. RN: OLIVIER STEVENSON 05/12. Continent. Bruising from lovenox. Vitals WNL. OT: Regressed in self care. Partial A standing balance aspects. Decreased LUE ROM. PT: Mobility has changed, 4 stairs max A. Endurance poor. DISHWASHER PREPARER: Regressed, decreased pace, slurred speech. Communication break downs. Cog handouts. Requiring moderate assist for carryover. SW: More anxious d/t change in functional status. CM: [facility] standard, approved to DC. PCP won't allow appt until 3 days out until DC. Home services VNA. Expected Discharge Date: 05/31/2024 Risk Adjusted Scores: OT Current: 24 OT Goal: 37 (13) (declined from last week) PT Current: 31 PT Goal: 61 (30) Follow-up Services: Home Health physical therapy, occupational therapy, and nursing daily Equipment Needed: other TBD walking vs w/c level Barriers to Achieving Rehab Goals: Ongoing fluctuating status, fatigue Occupational Therapy Assessment Overall Cognitive Status Overall [...] Assistance Needed: Physical assistance Physical Assistance Level: 51%-75% CARE Score - Toilet Transfer: 2 OT Assessment Results: OT Assessment Results: Decreased ADL status, Decreased upper extremity range of motion, Decreased upper extremity strength, Decreased safe judgment during ADL, Decreased fine motor control, Decreased functional mobility, Decreased gross motor control, Decreased trunk control for functionalactivities Evaluation/Treatment Tolerance: Evaluation/Treatment Tolerance: Patient tolerated treatment well, Patient limited by fatigue Comments: Comments: (Completed 90min session. Pt reporting decreased function in LUE and increased frustration with performance. Pt demoing improved ADL performance, however, would benefit from strength/ROM/FM activities with L UE.) Plan Treatment/Interventions: Treatment Interventions: ADL retraining, Functional transfer training, UE strengthening/ROM, Endurance training, Equipment evaluation/education, Patient/family training, Finemotor coordination activities, [...] CARE Score - Sit to Stand: 4 Chair/Kfv-ce-Rzclv Transfer Assistance Needed: Physical assistance Physical Assistance Level: 51%-75% Comment: L knee buckling CARE Score - Chair/Tql-xd-Fxhng Transfer: 2 Car Transfer Reason if not Attempted: Safety concerns CARE Score - Car Transfer: 88 Picking Up Object Assistance Needed: Physical assistance Physical Assistance Level: Total assistance Comment: Max A to maintain standing CARE Score - Picking Up Object: 1 Wheelchair Wheel 50 Feet with Two Turns Assistance Needed: Supervision Physical Assistance Level: 26%-50% CARE Score - Wheel 50 Feet with Two Turns: 4 Wheel 150 Feet Assistance Needed: Physical assistance Physical Assistance Level: 25% or less CARE Score - Wheel 150 Feet: 3 Ambulation Walk 10 Feet Assistance Needed: Physical assistance Physical Assistance Level: Total assistance Comment: max-A x1 with WC follow CARE Score - Walk 10 Feet: 1 Walk 50 Feet with Two Turns Assistance [...] Assistance Needed: Physical assistance Physical Assistance Level: 51%-75% Reason if not Attempted: Safety concerns CARE Score - 1 Step (Curb): 2 4 Steps Assistance Needed: Physical assistance Physical Assistance Level: 51%-75% Reason if not Attempted: Safety concerns CARE Score - 4 Steps: 2 12 Steps Assistance Needed: Physical assistance Physical Assistance Level: 25% or less Reason if not Attempted: Safety concerns CARE Score - 12 Steps: 88 Precautions Precautions Medical Precautions: Fall Risk Safety [...] oriented to date, place, and person Communication/Sensory: Visual (Glasses)/hearing deficit, Non-Zambian patient/unable to speak/slurred speech Behavior: Appropriate behavior Medications: Cardiovascular or central nervous system meds Volume/Electrolyte Status: No problems Catrachita Kaiser Fall Risk Total: 11 Skin Assessment Sensory Perceptions: No impairment Moisture: Rarely moist Activity: Chairfast Mobility: Slightly limited Nutrition: Adequate Friction and Shear: Potential problem Terrance Scale Score: 18 Pain Assessment Pain Assessment: No/denies pain Pain Score: 0 - No pain Pain Type: Chronic pain Pain Location: Head Pain Orientation: Right Pain Descriptors: Headache Pain Onset: (pt reports onset around 3 AM) Pain Interventions: Medication (See MAR) Bowel Management Bowel Program/Regime: Bowel Continence Status: Continent movement Last BM Date: 05/12/24 Bladder Management Bladder Scan Protocol: Bladder Continence [...] Pt reporting completion of MBSS at [facility] prior to admission to rehab. [facility]bt[facility]report from [facility] and reviewed report. MBSS report recommending regular/thin, no aspiration or penetration. Diet Solids Recommendation: IDDSI Level 7 Regular Diet Liquids Recommendation: Thin liquids Supervision Level: Intermittent supervision with meals Cognition Sequencing: Pt assigned with completing mod level sequencing tasks related to daily activities for HW. Will review tomorrow with Pt. Memory: Pt able to indp recall sequencing for getting oob during PT session. Pt tasked with recalling hand placement for wc transfer: Pt stating 'I need to use my R side more'. Tasked with recalling benefits of side-lying on affected side per OT note: Pt demonstrating increased difficulty recallingconversation. Pt stating the benefits are for when she is in bed. Problem Solving: Functional time related word problems: 75% accuracy with visuals of problems, required min to mod A with breakdown of problem. Discussed plan for grocery shopping at home: Pt reportsdaughter will assist. Attention/Concentration: Pt was able to able to complete 2-step auditory instructions w/ writing w/50% accuracy indep. and 80% given repetitions and cues to slow down, 100% given mod A for organization Reasoning: Pt was able to answer questions related to medical safety w/ 100% accuracy given min A for extension of answers Other Cognitive Skills Activity: Reviewed Pt's higher level attention HW task: min A for corrections. Cognitive Skills Comments: Per pt's request, pt was tasked w/ unscrambling words and identifying words in letters for HW Speech Speech: Pt was able to engage in conversation w/ 85-100% inteligibility, only x2 repetitions neededthroughout the conversation Other Speech Activity: Pt was provided unscrambling words and word search for weekend HW. Speech Comments: Speech inteligiblity goal updated Language Verbal Expression: Pt was able to repeat sentences w/ 90-100% inteligiblity given initial review ofstrategies and model. DISHWASHER PREPARER Assessment Results: Cognitive impairments Prognosis: Good Barriers to Discharge: (cognitive impairments, language barrier) Evaluation/Treatment Tolerance: Patient tolerated treatment well Plan Treatment/Interventions: Cognitive linguistic functioning DISHWASHER PREPARER Plan: Skilled DISHWASHER PREPARER Discharge Recommendations: Outpatient DISHWASHER PREPARER Diet Recommendations: Regular solids/thin liquids Barriers to Discharge: (cognitive impairments, language barrier) Finish Rolls Operator's Assessment Adult diet [facility]; Cardiac, Diabetic; 60 gm carb/Meal; Cardiac Assessment Diet Experience Previously prescribed diets: Previous therapeutic diet (Comment) Previous Diet / Nutrition Education / Counseling: Pt states she usually eats 3 meals per day at home. Receives SNAP benefits. States she aviods sweets and her [...] medicationsat home as they were . Appetite AVICULTURIST: Good Intake AVICULTURIST: Stable Nutrition Diagnosis Status: Improvement Diagnosis: Altered Nutrition-Related Lab Values Etiology: Endocrine dysfunction Symptoms: POCs 92-280, A1C 12 Nutrition Interventions: Diet Order, Nutrition Education Nutrition Education: Low Sodium, Consistent Carb Monitoring/Evaluation: Fluid/Beverage Intake, Food Intake, Weight, Food and Nutrition Knowledge/Skills Physician Attestation: Jean Carlos Rubin DO, have led the team conference and agree with the results, findings, and decisions made by the interdisciplinary team. documented in this encounter Plan of Treatment Not on file documented as of this encounter Visit Diagnoses Not on filedocumented in this encounter Additional Health Concerns Assessment Noted Time PHQ-9 Depression Total Score: 1 04/22/20 24 8:26 AM EST documented as of this encounter Care Teams Powder Mill Operator Relationship Specialty Start Date End Date Sherin Garcia MD [address] [place] [id number] PCP - General Family Medicine 05/09/24 documented as of this encounter
--- OUTSIDE RECORDS SUMMARY | 2024-06-10 16:54 | XMS_ITS | Encounter Summary ---
Author Organization [facility] [place] [address] Care Team Providers Care Club Attendant Name Role Phone Sherin Garcia MD Primary Care Provider [phone] Encounter Details Date Type Department Care Team ([facility] Contact Info) Description 05/27/2024 Plan of Care Documentation [facility] Inpatient Rehab [address] [place] [address] Social History Tobacco Use Types [...] Progress Notes * Lina Zhu, OT - 05/27/2024 11:14 AM EST Physical Medicine and Rehabilitation Team Conference Interdisciplinary Team Meeting Patient Name: Amalia Ann Date of : 1975 Sex: Female Payor Info: [place] / Product Type: *No Product type* / Admitting Diagnosis: Stroke ([facility]) [I63.9] Admit Date/Time: 04/19/2024 5:41 PM Primary Rehab (Etiologic) Diagnosis: Patient Active Problem List Diagnosis HTN (hypertension) DM (diabetes mellitus) ([facility]) CVA (cerebral vascular accident) ([facility]) Team Discussion UPDATES: Physician: Stroke, had functional decline, repeat CT/MRI last week which was stable. HTN, DM. Mag. UA neg last week. Off lantus, added mood stabilizer RN: Pt has done well with DM teaching, ongoing. Seems more upbeat today. Needs glucometer. OT: Family training today, no questions. Commode for home. Tub bench. PT: Family training went well. New sneakers for AFO. Tolerating AFO. Can walk with therapy/family. W/C level alone. DISTRICT CAPTAIN: Min A for cog CM: New PCP appt scheduled, will have to reschedule as DC date pushed back d/t change in status. Therapy planned for S/O to come in for family training. Neuro appt 05/29. Home with VNA. [employer] transportation. Will book all her rides. Expected Discharge Date: 05/31/2024 Risk Adjusted Scores: OT Current: 28 OT Goal: 37 (9) PT Current: 42 PT Goal: 61 (19) Follow-up Services: Home Health physical therapy, occupational therapy, speech therapy, social media coordinator, and nursing daily Equipment Needed: SBQC, AFO, wheelchair, and tub transfer bench Barriers to Achieving Rehab Goals: Occupational Therapy Assessment Overall Cognitive Status Overall Cognitive Status: Within Functional Limits Precautions Precautions Medical Precautions: Fall Risk Safety Interventions: Call noriega within reach Swallow Precautions: (none) RUE Weight Bearing Status: Full LUE Weight Bearing Status: Full, As Tolerated RLE Weight Bearing Status: Full LLE Weight Bearing Status: Full ADL Assessment Eating Assistance Needed: Set-up / clean-up CARE Score - Eatin Oral Hygiene Assistance Needed: Supervision Comment: Seated CARE Score - Oral Hygiene: 4 Toileting Hygiene Assistance Needed: Incidental touching Physical Assistance Level: No physical assistance Comment: balance CARE Score - Toileting Hygiene: 4 Shower/Bathe Self Assistance Needed: Physical assistance Physical Assistance Level: 25% or less Comment: for balance CARE Score - Shower/Bathe Self: 3 Upper Body Dressing Assistance Needed: Set-up / clean-up Physical Assistance Level: No physical assistance CARE Score - Upper Body Dressin Lower Body Dressing Assistance Needed: Supervision, Incidental touching Physical Assistance Level: No physical assistance CARE Score - Lower Body Dressin Putting On/Taking Off Footwear Assistance Needed: Physical assistance Physical Assistance Level: 25% or less CARE Score - Putting On/Taking Off Footwear: 3 Functional Transfers Toilet Transfer Assistance Needed: Supervision, Incidental touching Physical Assistance Level: 25% or less CARE Score - Toilet Transfer: 4 OT Assessment Results: OT Assessment Results: Decreased [...] 4 Transfers Sit to Stand Assistance Needed: Supervision, Incidental touching Physical Assistance Level: 25% or less Comment: at tasha bar CARE Score - Sit to Stand: 4 Chair/Zry-vf-Czgww Transfer Assistance Needed: Supervision, Incidental touching Physical Assistance Level: 25% or less Comment: L knee buckling CARE Score - Chair/Cjr-rd-Glwoc Transfer: 4 Car Transfer Reason if not [...] Physical Assistance Level: 25% or less Comment: SBQC and AFO CARE Score - Walk 10 Feet: 4 Walk 50 Feet with Two Turns Assistance [...] Interventions: Call noriega within reach Swallow Precautions: (none) RUE Weight Bearing Status: Full LUE Weight [...] place, and person Communication/Sensory: Visual (Glasses)/hearing deficit, Non-Irish patient/unable to speak/slurred speech Behavior: Appropriate behavior Medications: Cardiovascular or central nervous system meds Volume/Electrolyte Status: No problems Catrachita Kaiser Fall Risk Total: 11 Skin Assessment Sensory Perceptions: No impairment Moisture: Rarely moist Activity: Chairfast Mobility: Slightly limited Nutrition: Excellent Friction and Shear: Potential problem Terrance Scale Score: 19 Pain Assessment Pain Assessment: No/denies pain Pain Score: 0 - No pain Pain Type: Acute pain Pain Location: Shoulder Pain Orientation: Left Pain Descriptors: Headache Pain Onset: (pt reports onset around 3 AM) Pain Interventions: Cold applied Bowel Management Bowel Program/Regime: Bowel Continence Status: Continent movement Last BM Date: 05/26/24 Bladder Management Bladder Scan Protocol: Bladder Continence [...] Comments: Pt reporting completion of MBSS at [facility] prior to admission to rehab. Obtainedreport from [facility] and reviewed report. MBSS report recommending regular/thin, no aspiration or penetration. Diet Solids Recommendation: IDDSI Level 7 Regular Diet Liquids Recommendation: Thin liquids Supervision Level: Intermittent supervision with meals Cognition Sequencing: Pt reported that she called to setup a PCP appt but that the doctor was booked and thatthere was no available appts. Pt required mod A for making a list of questions to ask the doctor's office when trying to be established as a new pt. Pt thought you need to have a doctor's appt first before you could get a new doctor. Pt required min A for the sequencing of getting transport to her a ppts. Memory: Pt was tasked w/ recalling to-do list given min A for encoding and was able to recall 3/4 given 30-second delay and 4/4 given 1-min, 2-min, 5-min, 10- min, and at the end of the session. Problem Solving: Pt was able to answer questions related to time w/ 59% accuracy indep. and 90% accuracy given mod A for calculations. Pt benefited from use of visual aid. Attention/Concentration: Per pt's request, pt was able to complete divided attention task w/ playing cards w/ 70% accuracy indep. and 90% accuracy given min A for use of cognitive strategies. Reasoning: Pt was able to answer hypothetical questions related to safety w/ 70% accuracy given Mauro for eleboration of responses and 100% given mod A for appropriate solutions. Other Cognitive Skills Activity: Pt tasked w/ calling insurance or doctor's office to setup appt for HW Cognitive Skills Comments: Goal review performed Speech Speech: Pt was indep. w/ use of strategies during conversation and required no repetitions. Pt engaged in a conversation about her speech goals and reported that she feels like her speech is similar to baseline. Goal will be d/c. Other Speech Activity: Pt participated in the CLQT. Pt engaged in a conversation about her speech and her speech goals. Pt reported that she agrees w/ her speech goals and would like to continue to target in future sessions. Speech Comments: Speech inteligiblity goal updated Language Verbal Expression: Pt reviewed the speech strategies. Pt was able to describe pictures w/ 70-70% inteliligiblity, yarn bleaching machine operator required repetition in 4/7 trials. Pt engaged in a conversation about herspeech and reported that she feels like her speech is getting better but it is not back at baseline. Will continue to target in future sessions. DISTRICT CAPTAIN Assessment Results: Cognitive impairments Prognosis: Good Barriers to Discharge: (cognitive impairments, language barrier) Evaluation/Treatment Tolerance: Patient tolerated treatment well Plan Treatment/Interventions: Cognitive linguistic functioning DISTRICT CAPTAIN Plan: Skilled DISTRICT CAPTAIN Discharge Recommendations: Outpatient DISTRICT CAPTAIN Diet Recommendations: Regular solids/thin liquids Barriers to Discharge: (cognitive impairments, language barrier) Supervisor Machining's Assessment Adult diet [facility]; Cardiac, Diabetic; 60 gm carb/Meal; Cardiac [...] medicationsat home as they were . Appetite RETAIL SECURITY PROFESSIONAL: Good Intake RETAIL SECURITY PROFESSIONAL: Stable Nutrition Diagnosis Status: Improvement Diagnosis: Altered Nutrition-Related Lab Values Etiology: Endocrine dysfunction Symptoms: POCs 92-280, A1C 12 Nutrition Interventions: Diet Order, Nutrition Education Nutrition Education: Low Sodium, Consistent Carb Monitoring/Evaluation: Fluid/Beverage Intake, Food Intake, Weight, Diet Order Physician Attestation: INeida, DO, have led the team conference and [...] documented as of this encounter Care Teams Club Attendant Relationship Specialty Start Date End Date Sherin Garcia MD [address] [place] [phone] PCP - General Family Medicine 05/09/24 documented as of this encounter
--- OUTSIDE RECORDS SUMMARY | 2024-06-10 16:54 | XMS_ITS | Encounter Summary ---
Author Organization [facility] Address [address] [place] [address] [address] [address] Care Team Providers Care Fruit Coordinator Name Role Phone Erlinda Hernandez Primary Care Provider [phone] Encounter Details Date Type Department Care Team (Late st Contact Info) Description 05/10/2024 [facility] Only [place] [facility] [address] [place] [address] Provider, MD Edmond Social History Tobacco Use Types Packs/Day Years [...] Description 06/24/2024 9:00 AM EST Office Visit [facility] ADULT DENTAL [address] [place] [address] Valiente-Francisco, Leona, DDS [address] [place] [address] 07/15/2024 11:15 AM EST Office Visit [facility] CHC MED & PEDS [address] [place] [address] Erlinda Hernandez FNP [address] [place] [address] documented as of this encounter Procedures Procedure Name Priority Date/Time Associated Diagnosis Comments MRI BRAIN WO CONTRAST Routine 05/09/2024 1:24 PM EST documented in this encounter Results * MRI BRAIN WO CONTRAST (05/09/2024 1:24 PM EST) Anatomical Region Laterality Modality Magnetic Resonan ce us Historical Provider MD [facility] MRI PROCEDURES Final Result documented in this encounter Visit Diagnoses Not on filedocumented in this encounter Care Teams Fruit Coordinator Relationship Specialty Start Date End Date Erlinda Hernandez FNP [address] [place] [id number] PCP - General Family Medicine 06/10/24 documented as of this encounter
--- OUTSIDE RECORDS SUMMARY | 2024-06-10 16:54 | XMS_ITS | Encounter Summary ---
Author Organization [employer] Address [address] [facility] [address] [place] [address] Care Team Providers Care Depilatory Painter Name Role Phone Unavailable Primary Care Provider Unavailabl e Reason for Visit * Reason Comments [facility] Of [facility] (Tcm) [facility] Encounter Details Date Type Department Care Team ([facility] st Contact Info) Description 05/14/2024 Telephone [facility] CHC MED & PEDS [address] [place] [address] Sherin Garcia MD [address] [place] [address] Transition Of Care (Tcm) (REGARDING: CALL TO [facility] REH[facility]) Social History Tobacco Use Types Packs/Day Years [...] AM EDT documented as of this encounter Progress Notes * Preeti Pat - 05/14/2024 8:55 AM EST HAL Paredes Received a [facility] Rehab summary but not a discharge summary. [facility] [phone] answered call, global technical writer asked Jorden if patient was discharge or still admitted due to receiving some paperwork from [facility]. Per Jorden noticed a Doctor had faxed some paperwork but it is not a discharge to please disregard it. Per Jorden, HDF appointment needs to be canceled. Patient status changed and had a new stroke. Jorden will call back to reschedule HDF appointment. documented in this encounter Plan of Treatment Upcoming Encounters Date Type Department Care Team (Late st Contact Info) Description 06/24/2024 9:00 AM EST Office Visit [facility] ADULT DENTAL [address] [place] [address] Leona Acosta, DDS [address] [place] [address] 07/15/2024 11:15 AM EST Office Visit [facility] CHC MED & PEDS [address] [place], [place] [phone] Erlinda Hernandez, HELMINTHOLOGIST [address] [place], [place] [phone] documented as of this encounter Visit Diagnoses Not on filedocumented in this encounter
--- OUTSIDE RECORDS SUMMARY | 2024-06-10 16:54 | XMS_ITS | Encounter Summary ---
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 Name Role Phone Sherin Garcia MD Primary Care Provider [phone] Reason for Visit * Auth/Cert (Routine) Specialty Diagnoses / Procedures Referred By Kamar gimenez Referred To Contact Diagnoses stroke Procedures INPATIENT REHAB FACILITY PROSPECTIVE PAYMENT SYSTEM ([facility]) Neida Bailey DO [address] [place] [address] [facility] Inpatient Rehab [address] [place] [address] Referral ID Status Reason Start Date Expiration Date Visits Re quested Visits Authorized [id number] 1 1 Encounter Details Date Type Department Care Team (Latest Contact Info) Description 04/19/2024 5:41 PM EST - 05/31/2024 12:05 PM [facility] Hospital Encounter [facility] Inpatient Rehab [address] [place] [id number] Neida Bailey DO [address] [place] [address] Stroke (CMS/HCC) [I63.9] (Primary Dx) Discharge Disposition: Home or Self Care Social History Tobacco Use Types Packs/Day Years [...] on file documented as of this encounter Last Filed [...] Mass Index 27.87 04/19/2024 10:20 PM EST documented in this encounter Discharge Summaries * Josephine Maldonado RN - 05/31/2024 11:30 AM EST Diabetic diet * Neida Bailey DO - 05/31/2024 11:13 AM EST Images from the original note were not included. PHYSICAL MEDICINE AND REHABILITATION Discharge Summary Patient Name: Amalia Ann Date of : 1975 Sex: Female Admit Date/Time: 04/19/2024 5:41 PM Discharge Date: 05/31/24 HPI: From H&P: This is a 48-year-old woman who has a past medical history of CVA on 03/26/2024 withsome residual mild left-sided weakness and left facial droop. She also said past medical history ofhypertension, diabetes. She was recently admitted to [facility] on 04/19/2024 with worsening left hemiparesis, slurred speech and worsening facial droop. MRI of the brain showed acute to subacute right pontine infarct without hemorrhagic transformation. The stroke was suspected be secondary to intrinsic atherosclerotic disease, likely perform Maitre now occluded. She underwent extensive stroke workup. Echocardiogram on 04/16 showed normal LV systolic function with ejection fraction of 55 to 65% per neurology. She was on aspirin and Plavix along with high-dose statin. She has poorlycontrolled diabetes with an A1c greater than 12. She continues on insulin medications, metformin and had diabetic teaching. Because of left-sided weakness she was transferred to [facility] on 04/19/2024. She has partial command of [place] Islander but is primarily Barbadian-speaking. Her research computing specialist has a good command of [place]er. HOSPITAL COURSE: #Acute anterior right pontine stroke #Left hemiparesis #Dysarthria -Aspirin 81mg daily -Plavix 75mg daily -Atorvastatin 80mg nightly discontinued on 05/17 due to weakness and concern for possible myopathy which is unlikely --> restarted Atorvastatin 10mg nightly on 05/24 -CT head 05/07/24 showed subtle hypoattenuation in the rightward srinivas correlating with an infarct demonstrated on the comparison MRI, no acute hemorrhage or other acute superimposed findings -CTA head/neck from [facility] showed moderate to severe intracranial atherosclerotic disease which likely puts her at risk for further CVAs -05/09 due to continued worsening weakness MRI brain ordered also reached out to Dr Reynoso at [facility] Neurology to inform of changes in neurostatus --> no response from Dr Reynoso, MRI brain 05/10 redemonstrated prior known infarcts without acute abnormality -continue therapies -left AFO received and will continue use -f/u Neurology 05/29/24 #Dysphagia -regular diet with thin liquids -continue LOGISTICIAN #Depression -Escitalopram 5mg daily started 05/24, continue #Hypertension -Lisinopril 10mg daily increased to 20mg daily on 04/25 --> discontinued 05/01 due to complaintsof itchiness to her throat -Amlodipine 5mg daily started 04/28 --> increased to 10mg daily on 05/24 #Diabetes mellitus type 2 -noncompliant with treatment prior to admission -continue diabetic education -will need glucometer and supplies on discharge -ISS -Lantus 22 units QHS decreased to 10 units QHS on 05/02 --> discontinued on 05/03 -Metformin 500mg BID started 04/28 -Glipizide 5mg daily started 05/03 #Low back pain -Lidocaine patch started 05/30 #Hypomagnesemia -Magnesium oxide 400mg daily started 05/18 --> increased to 400mg BID on 05/22. -on 05/28 Mag 1.8 continue current regimen #Bladder management -UA 05/06 negative for UTI -UA 05/16 negative for UTI #Bowel management -Colace and Senna discontinued on 05/01 due to loose stools -monitor #DVT prophylaxis: Lovenox 40mg daily PHYSICAL EXAMINATION: Vitals: 05/30/24 0700 05/30/24 1624 05/31/24 0432 05/31/24 0810 BP: 138/76 134/69 (!) 140/85 134/70 BP Location: Right arm Right arm Right arm Patient Position: Lying Sitting Sitting Pulse: 71 68 66 61 Resp: 16 16 Temp: 36.4 ??C (97.5 ??F) 37.1 ??C (98.8 ??F) 36.7 ??C (98.1 ??F) TempSrc: Temporal Oral Oral SpO2: 100% 100% 100% Weight: Height: General: Alert, in no acute cardiopulmonary distress. Mental Status: Oriented to person, place and time. Normal affect. Head: Normocephalic. Eyes: Extraocular muscles grossly intact. Ear, Nose and Throat: Oropharynx clear, mucous membranes moist. Ears and nose without masses, lesions or deformities. Neck: Supple, Trachea midline. Respiratory: Clear to auscultation and percussion. No wheezing, rales or rhonchi. Cardiovascular: Heart sounds normal. No thrills. Regular rate and rhythm, no murmurs, rubs or gallops. Gastrointestinal: Abdomen soft, non-tender, non-distended. Normal bowel sounds. Neurologic: Cranial nerves II-XII grossly intact. Moves all extremities spontaneously. Sensation intact bilaterally. +left hemiparesis Skin: No rashes or lesions. No petechiae or purpura. No edema. Musculoskeletal: No cyanosis or clubbing. No gross deformities. Normal range of motion. Strength 4/5 left shoulder abduction, 4/5 left elbow flexion, 1/5 left wrist extension, 1/5 left finger flexion. Strength 4/5 left hip flexion and knee extension. Left dorsiflexion strength 1/5. LABS: Lab Results Component Value Date WBC 6.1 05/30/2024 RBC 4.00 05/30/2024 HGB 11.7 05/30/2024 HCT 35.4 05/30/2024 MCV 87.6 05/30/2024 MCHC 33.1 05/30/2024 RDW 13.0 05/30/2024 PLT 300 05/30/2024 MPV 11.6 (H) 05/30/2024 NRBC 0.0 05/30/2024 DIFF Lab Results Component Value Date LYMPHOPCT 10.4 05/06/2024 NEUTROABS 7.49 (H) 05/06/2024 LYMPHSABS 0.92 (L) 05/06/2024 MONOABS 0.33 05/06/2024 EOSABS 0.02 05/06/2024 BASOSABS 0.02 05/06/2024 IMMGRANABS 0.03 05/06/2024 RETIC No results found for: RETIC , RETICCTPCT Lab Results Component Value Date NA 138 05/30/2024 K 4.2 05/30/2024 CL 104 05/30/2024 CO2 29 05/30/2024 GLUCOSE 133 (H) 05/31/2024 BUN 14 05/30/2024 CREATININE 0.79 05/30/2024 CALCIUM 9.1 05/30/2024 PROT 6.3 05/30/2024 ALBUMIN 3.2 05/30/2024 BILITOT 0.3 05/30/2024 AST 24 05/30/2024 ALT 30 05/30/2024 MG 2.0 05/30/2024 ALKPHOS 71 05/30/2024 CKTOTAL 31 05/13/2024 EGFR 93 05/30/2024 IMAGING: None DISCHARGE MEDICATIONS: Your medication list ASK your doctor about these medications Instructions Last Dose Given Next Dose Due aspirin 81 mg EC tablet Take 1 tablet (81 mg total) by mouth 1 (one) time each day. atorvastatin 80 mg tablet Commonly known as: LIPITOR [place] stefani tableta (80 mg en total) por v??a oral antes de acostarse. (Take 1 tablet (80 mg total) by mouth at bedtime.) lisinopriL 10 mg tablet Commonly known as: PRINIVIL,ZESTRIL [place] 1 tableta (10 mg en total) por v??a oral 1 (stefani) vez al d??a. (Take 1 tablet (10 mg total) by mouth 1 (one) time each day.) Plavix 75 mg tablet Generic drug: clopidogreL [place] 1 tableta (75 mg en total) por v??a oral 1 (stefani) vez al d??a. (Take 1 tablet (75 mg total) by mouth 1 (one) time each day.) DISCHARGE RECOMMENDATIONS: Code Status: Full Code - Default Diet: Cardiac diet, diabetic diet, regular consistency with thin liquids Weight Bearing Precautions: None, weight bearing as tolerated Wound Care Instructions: Skin intact, no dressings needed Patient/PCP Follow Up Instructions: Follow up with Neurology for further management of stroke. Glucometer and supplies sent to outpatient pharmacy. Monitor fingersticks twice daily prior to meals and bring a log to PCP follow up appointment for further recommendations. DISCHARGE FOLLOW UP APPOINTMENTS: Schedule an appointment with Kaylin Reynoso MD as soon as possible for a visit in 14 days Specialty: Neurology Office will be calling you to schedule follow up appointment. If you need transportation, please call MART 3-5 buisness days prior to appointment at [phone]. [address] [facility] [address] Go to Gato Garcia MD Monday Specialty: Family Medicine 9:30am NEW PATIENT APPOINTMENT Hospital Follow up Appointment M[facility] Transportation has been coordinated for you. Wheel Chair Van Biochemistry Professor: 8:45am Return Drop off: 11:00am Trip # [id number] [address] [place] [id number] Go to Akbar Talamantes CNP Monday 2:30pm [employer] Transportation has been coordinated for you. Wheel Chair Van Biochemistry Professor: 2:00pm Return Drop off: 3:45pm Trip #[id number] [facility] [address] [facility], [address] [place] [address] Go to Leona ValienteRebecca Francisco Monday 9:00am [facility] Transportation has been coordinated for you. Wheel Chair Van hog room supervisor: 8:05am Return Drop Off: 10:45am Trip # [id number] Dental Department [address] [phone] * Jorden Soto LCSW - 05/09/2024 8:59 AM EST NO DRIVING until you are cleared by a physician. You have been registered for [email or web address]. If you need transportation to an appointment, please call [email or web address] at least 5 business days prior to appointment. documented in this encounter Discharge Instructions * Discharge Instructions* Neida Bailey DO - 05/31/2024 11:19 AM EST Code Status: Full Code - Default Diet: Cardiac diet, diabetic diet, regular consistency with thin liquids Weight Bearing Precautions: None, weight bearing as tolerated Wound Care Instructions: Skin intact, no dressings needed Patient/PCP Follow Up Instructions: Follow up with Neurology for further management of stroke. Glucometer and supplies sent to outpatient pharmacy. Monitor fingersticks twice daily prior to meals and bring a log to PCP follow up appointment for further recommendations. * Attachments The following attachments cannot be sent through Care Everywhere. * Diabetes Diet Meal Planning: General Info (Barbadian) * Diabetes Diet Meal Planning: General Info ([place] Islander) * Aspirin and Antiplatelets: Cardiovascular Prevention: Safety (Barbadian) * Clopidogrel Oral Tablet (CLOPIDOGREL - ORAL) (Barbadian) documented in this encounter Medications at Time of Discharge Medication Sig Dispensed Refills Start Date End Date amLODIPine (NORVASC) 10 mg tablet Take 1 tablet (10 mg total) by mouth 1 (one) time each day. 30 each 05/30/2024 06/29/2024 aspirin 81 mg EC tabletIndications:cerebral thromboembolism prevention Take 1 tablet (81 mg total) by mouth 1 (one) time each day. 30 each 05/29/2024 06/28/2024 atorvastatin (LIPITOR) 10 mg tablet Take 1 tablet (10 mg total) by mouth at bedtime. 30 each 05/29/2024 06/28/2024 cholecalciferol (VITAMIN D-3) 50 mcg (2,000 unit) tablet Take 1 tablet (2,000 Units total) by mouth 1 (one) time each day. 30 tablet 05/30/2024 06/29/2024 clopidogreL (Plavix) 75 mg tabletIndications:cerebral thromboembolism prevention Take 1 tablet (75 mg total) by mouth 1 (one) time each day. 30 each 05/29/2024 06/28/2024 cyanocobalamin (VITAMIN B-12) 1,000 mcg tablet Take 1 tablet (1,000 mcg total) by mouth 1 (one) time each day. 30 each 05/30/2024 06/29/2024 escitalopram (LEXAPRO) 5 mg tablet Take 1 tablet (5 mg total) by mouth 1 (one) time each day. 30 each 05/30/2024 06/29/2024 glipiZIDE (GLUCOTROL) 5 mg tabletIndications:type 2 diabetes mellitus Take 1 tablet (5 mg total) by mouth 1 (one) time each day before breakfast. 30 each 05/30/2024 06/29/2024 magnesium oxide (MAG-OX) 400 mg (241.3 elemental magnesium) tablet Take 1 tablet (400 mg total) by mouth 2 (two) times a day. 60 each 05/29/2024 06/28/2024 metFORMIN (GLUCOPHAGE) 500 mg tabletIndications:type 2 diabetes mellitus Take 1 tablet (500 mg total) by mouth 2 (two) times a day with meals. 60 each 05/29/2024 06/28/2024 documented as of this encounter Ordered Prescriptions Prescription Sig Dispensed Refills Start Date End Da te metFORMIN (GLUCOPHAGE) 500 mg tabletIndications:type 2 diabetes mellitus Take 1 tablet (500 mg total) by mouth 2 (two) times a day with meals. 60 each 05/29/2024 06/28/2024 magnesium oxide (MAG-OX) 400 mg (241.3 elemental magnesium) tablet Take 1 tablet (400 mg total) by mouth 2 (two) times a day. 60 each 05/29/2024 06/28/2024 glipiZIDE (GLUCOTROL) 5 mg tabletIndications:type 2 diabetes mellitus Take 1 tablet (5 mg total) by mouth 1 (one) time each day before breakfast. 30 each 05/30/2024 06/29/2024 escitalopram (LEXAPRO) 5 mg tablet Take 1 tablet (5 mg total) by mouth 1 (one) time each day. 30 each 05/30/2024 06/29/2024 cyanocobalamin (VITAMIN B-12) 1,000 mcg tablet Take 1 tablet (1,000 mcg total) by mouth 1 (one) time each day. 30 each 05/30/2024 06/29/2024 cholecalciferol (VITAMIN D-3) 50 mcg (2,000 unit) tablet Take 1 tablet (2,000 Units total) by mouth 1 (one) time each day. 30 tablet 05/30/2024 06/29/2024 amLODIPine (NORVASC) 10 mg tablet Take 1 tablet (10 mg total) by mouth 1 (one) time each day. 30 each 05/30/2024 06/29/2024 clopidogreL (Plavix) 75 mg tabletIndications:cerebral thromboembolism prevention Take 1 tablet (75 mg total) by mouth 1 (one) time each day. 30 each 05/29/2024 06/28/2024 atorvastatin (LIPITOR) 10 mg tablet Take 1 tablet (10 mg total) by mouth at bedtime. 30 each 05/29/2024 06/28/2024 aspirin 81 mg EC tabletIndications:cerebral thromboembolism prevention Take 1 tablet (81 mg total) by mouth 1 (one) time each day. 30 each 05/29/2024 06/28/2024 documented in this encounter Discharge Disposition Disposition Code Departure Means Destination Comment s Home or Self Care Car Med rec unfinished and new medication added at last minute. director rectified issues. Patient successfully discharged documented in this encounter Progress Notes * Elzbietacollin Garcia, PT - 05/31/2024 12:10 PM EST [facility] Physical Therapy Treatment Note 05/31/2024 Patient: Amalia Ann : 1975 Age: 49 y.o. Gender: female Primary Language: Barbadian Diagnosis: No Principal Problem: There is no principal problem currently on the Problem List. Please update the Problem List and refresh. Past Medical History: Diagnosis Date CVA (cerebral vascular accident) ([facility]/HCC) DM (diabetes mellitus) ([facility]) HTN (hypertension) History reviewed. No pertinent surgical history. Allergies: is allergic to lisinopril. Precautions: Medical Precautions: Fall Risk Safety Interventions: Call noriega within reach Swallow Precautions: (none) RUE Weight Bearing Status: Full LUE Weight Bearing Status: Full, As Tolerated RLE Weight Bearing Status: Full LLE Weight Bearing Status: Full N SUBJECTIVE Pt report: Its fine Pain:0/10 OBJECTIVE General Observation: Seated in WC agreeable to participating in therapy session. Procedure/Treatment: Neuromuscular Reeducation: Balance/Neuromuscular Re-Education Neuromuscular Re-Education Time Entry: 15 Pt seated in WC agreeable to participating in therapy. Pt mod-I for STS and mod- I for picking up anobject with a leather lacer. Pt completed x20ft of ambulation over uneven surface with SBQC, steadying assistance. Therapist assisting pt in transferring into new WC, pt mod-I with transfer with SBQC. Pt left seated in WC, call noriega in reach, chair alarm on, all needs met. Therapist returning to assist pt in donning AFO. Therapist instructing pt to doff AFO after stairs and complete skin check, pt verbalize understanding. Pt left seated in WC, call noriega in reach, all needs met with transport present. Education: Education Documentation No documentation found. Education Comments No comments found. ASSESSMENT Pt SUP for ambulation on uneven surface. Equipment: Pt has equipment for d/c home. Plan of Care Plan Pt d/c from this level of care, recommending home PT Problems/Goals Goals: Encounter Problems Encounter Problems (Active) Template: Physical Therapy Problem: PT Chcf Goals Dates: Start: 04/20/24 Goal: mod I bed mobility (Resolved) Dates: Start: 04/20/24 Expected End: 05/11/24 Resolved: 05/30/24 Outcomes Date/Time User Outcome 05/30/24 1137 Elzbieta Garcia, PT Completed Goal: mod I transfers with LAD (Resolved) Dates: Start: 04/20/24 Expected End: 05/11/24 Resolved: 05/30/24 Outcomes Date/Time User Outcome 05/30/24 113Angie Garcia, PT Completed Goal: mod I wc mobility 150' (Resolved) Dates: Start: 04/20/24 Expected End: 05/11/24 Resolved: 05/30/24 Outcomes Date/Time User Outcome 05/30/24 1137 Elzbieta Garcia, PT Completed Goal: up/dn 4 flights of stairs min A (Resolved) Dates: Start: 04/20/24 Expected End: 05/11/24 Resolved: 05/30/24 Outcomes Date/Time User Outcome 05/30/24 113Angie Garcia, PT Completed Goal: Ambulate x50ft LRAD SUP Dates: Start: 05/20/24 Outcomes Date/Time User Outcome 05/30/24 113Angie Garcia PT Adequate for Discharge Encounter Problems (Resolved) Template: Physical Therapy Problem: PT Short Term Goals Dates: Start: 04/20/24 Resolved: 05/20/24 Goal: Pt will perform bed mobility min A (Resolved) Dates: Start: 04/20/24 Expected End: 04/27/24 Resolved: 05/17/24 Outcomes Date/Time User Outcome 05/17/24 1403 Elzbieta Garcia PT Completed Goal: Pt will transfer with min A (Resolved) Dates: Start: 04/20/24 Expected End: 04/27/24 Resolved: 05/20/24 Outcomes Date/Time User Outcome 05/20/24 1001 Elzbieta Garcia PT Completed Goal: Pt will ambulate 25' with LAD mod A (Resolved) Dates: Start: 04/20/24 Expected End: 04/27/24 Resolved: 05/20/24 Outcomes Date/Time User Outcome 05/20/24 1001 Elzbieta Garcia PT Completed Goal: Assess stairs as appropriate (Resolved) Dates: Start: 04/20/24 Expected End: 04/27/24 Resolved: 05/06/24 Outcomes Date/Time User Outcome 05/06/24 1038 Elzbieta Garcia PT Completed Goal: Supervision wc mobility and mgmt 150' (Resolved) Dates: Start: 04/20/24 Expected End: 04/27/24 Resolved: 05/06/24 Description: Outcomes Date/Time User Outcome 05/06/24 1038 Elzbieta Garcia PT Completed Session Start/Stop Time: 0830 0945 Therapy Minutes Physical Therapy PT Individual: 15 * Josephine Maldonado RN - 05/31/2024 12:02 PM EST Patient discharge paperwork printed and reviewed. Ida from picked up patient's medications and glucometer and gave to patient. Discussed DM diet- checking POC 2x daily and keeping a log to bring to PCP appt as DM meds may need to be adjusted. Educated patient that if she has medications at home that aren't on discharge instructions- do no take them. Instructed the patient to use discharged medications only. Reviewed s/sx of stroke and when to call 911. Discharge instructions reviewed with the assistance of virtual interpretor felix [id number]. * Neida Bailey DO - 05/31/2024 11:21 AM EST Images from the original note were not included. PHYSICAL MEDICINE AND REHABILITATION Documentation of Face to Face Encounter Patient Name: Amalia Ann Date of : 1975 Sex: Female Addendum to Home Health Plan of Care 1. Date of Face to Face Encounter: I certify that this patient is under my care and that I, or an allowed non-physician practitioner working with me, had a [id number] encounter with the patient on the date specified below. Medicare's allowed non-physician practitioners are PAs, rotoprinter, CNSs, and nurse midwives. Month/Day/Year: 05/31/24 2. The encounter with the patient was in whole, or in part, for the following medical condition, which is the primary reason for home health care. List Medical Conditions: #Acute anterior right pontine stroke #Left hemiparesis #Dysarthria #Dysphagia #Depression #Hypertension #Diabetes mellitus type 2 #Hypomagnesemia 3. Based on clinical findings of this encounter, I certify the following services are medically necessary. [ x] Nursing [ x ] Physical Therapy [ x] Occupational Therapy [ ] Speech Therapy [ ] Home Health Aide [ ] Linen Room Worker 4. Based on clinical findings of this encounter, the patient has a need for these skilled services because: [ ] Wound assessment and/or care. [ ] Monitoring anticoagulant therapy. [ x ] Medication management. [ ] Teaching: Heart failure management. [ x ] Teaching: Diabetes mellitus management. [ ] Teaching: COPD management. [ x ] Assessment of functional deficits and home safety evaluation. [ x ] Therapeutic exercises. [ x ] Gait training. [ x] ADL training. [ ] Therapeutic exercise to improve swallowing. [ ] Therapeutic exercise to improve language function. [ ] Therapeutic exercise to improve cognitive function. [ x ] Intermediation in the delivery of necessary services. [x ] Assessment of home and social environment and its conduciveness toward promoting health, safety, and wellbeing. 5. Based on clinical findings of this encounter, I certify this patient meets the definition of homebound (i.e. absences from home require considerable & taxing effort, are infrequent and of short duration, usually related to medical reasons/orthodox services) because: [ x ] Unsteady gait with significant risk of falls. [ x ] Requires assistive device for safe ambulation [ ] Requires assistance of another person for safe ambulation. [ ] Nonambulatory: Confined to bed or chair. [ ] Dyspnea with minimal exertion. [ x ] Limited endurance secondary to medical conditions listed above. [ ] Cognitive impairment. * Josephine Maldonado RN - 05/31/2024 11:14 AM EST Patien't significant other packed and took home most belongings last evening * Brie Calvillo RN - 05/31/2024 2:23 AM EST Problem: Cognitive: Domínguez Job Fall Risk Goal: Last Known Fall Outcome: Progressing Goal: Mobility requiring assistance of person or device Outcome: Progressing Goal: Dizziness Outcome: Progressing Goal: Medications Outcome: Progressing Goal: Mental Status/LOC/Awareness Outcome: Progressing Goal: Toileting Needs Outcome: Progressing Goal: Volume and Electrolyte Status Outcome: Progressing Goal: Communication/Sensory Outcome: Progressing Goal: Behavior Outcome: Progressing Problem: Skin Integrity: Pressure Injury Actual or Risk of Goal: Will not develop new pressure injury Outcome: Progressing Goal: Skin integrity will improve Outcome: Progressing Goal: Risk for impaired skin integrity will decrease Outcome: Progressing Problem: Activity:Pressure Injury Actual or Risk of Goal: Mobility will improve Outcome: Progressing Problem: Nutritional:Pressure Injury Actual or Risk of Goal: Nutritional status will improve Outcome: Progressing Problem: Patient Specific Problem: Pressure Injury Actual or Risk of Goal: Patient Specific Outcome Outcome: Progressing Problem: Cognitive/Linguistics Goal: Patient will complete simple calculations for time/money management at 90% accuracy given Mauro Description: Goal Type: STG, Performance Level: Min assist Outcome: Progressing Goals: Clinical Goals for the Shift: To stay free from falls. Identify possible barriers to meeting goals/advancing plan of care: Pt working towards goals. Stability of the patient: Moderately Unstable - Medium risk of patient condition declining or worsening End of Shift Summary: Rooms safety maintain, call noriega in reach, bed alarm on, hourly and prn safety checks throughout the night. Pt encouraged to use the call noriega for assist with any needs. No complaints of pain and no signs of distress. * MARIE Arroyo - 05/30/2024 4:04 PM EST Speech Language Pathology Speech/Language Pathology Discharge Report Subjective LOGISTICIAN Start Time: 1415 LOGISTICIAN Stop Time: 1455 LOGISTICIAN Time Calculation (min): 40 min Subjective: Pt was alert and sitting upright in bed for the session. Pt reported that she is excited to go home tomorrow. Pt was cooperative throughout the session. Objective General Visit Info General Family/Caregiver Present: No Treatment Cognitive Skills Therapeutic Interventions Cognitive Skills Direct Contact Time Entry: 40 Other Cognitive Skills Activity: Pt participated in d/c assessment of MoCA 8.2 and engaged in a conversation about d/c recommendations. Pt helped create a HEP. Ponce Cognitive Assessment (MOCA) 8.2 Visuospatial/Executive: 2/5 Namin/3 Attention - Digits: 2/2 Attention - Letters: 1/1 Attention - Serial Subtraction: 0/3 Language - Repetition: 1/2 Language - Naming Fluency: 0/1 Abstraction: 2/2 Delayed Recall: 5/5 Orientation: 6/6 TOTAL SCORE: 21/30 Normal >= 26/30 Comments: Manny Cognitive Assessment (MOCA) Version 8.2: Composite Score: +21/30, correlating to MILD cognitive impairment. Interpretation: scores of 26 or greater are WFL compared to a normative sample of similarly aged adults. Below this, scores can indicate severe (<=9 points), moderate (10-18 points) or mild (19-24points) cognitive impairment Memory Index Score: 15/15: 5/5 words recalled independently, 0/5 with category cues, 0/5 with multiple choice cues. Goals: Encounter Problems Encounter Problems (Active) Template: Speech Therapy Problem: Cognitive/Linguistics Dates: Start: 04/20/24 Goal: Patient will participate in further assessment of cognitive-linguistic skills (Resolved) Dates: Start: 04/20/24 Expected End: 05/04/24 Resolved: 05/01/24 Description: Goal Type: STG, Performance Level: Independent Outcomes Date/Time User Outcome 05/01/24 0920 MARIE Shrestha Completed Goal: Patient will identify and utilize problem-solving intervention for task completion at 90% accuracy given min A (Resolved) Dates: Start: 04/20/24 Expected End: 05/17/24 Resolved: 05/15/24 Description: Goal Type: STG, Performance Level: Min assist Outcomes Date/Time User Outcome 05/15/24 1515 MARIE Arroyo Completed Goal: Patient will complete simple calculations for time/money management at 90% accuracy given Mauro Dates: Start: 04/20/24 Expected End: 05/31/24 Description: Goal Type: STG, Performance Level: Min assist Outcomes Date/Time User Outcome 05/30/24 1603 Sherri Rendon LOGISTICIAN Adequate for Discharge Goal: Pt will improve intelligibility at the sentence/conversational level to baseline given min A for speech strategies. (Resolved) Dates: Start: 04/21/24 Expected End: 04/28/24 Resolved: 04/26/24 Description: Outcomes Date/Time User Outcome 04/26/24 1127 MARIE Arroyo Completed Goal: Pt will improve delayed recall of functional information given min A for encoding and min A for retrieval - 90% accuracy (Resolved) Dates: Start: 04/22/24 Expected End: 05/17/24 Resolved: 05/15/24 Description: Outcomes Date/Time User Outcome 05/15/24 1522 MARIE Arroyo Completed Goal: Pt will complete basic to mod level auditory/visual attention tasks - 90% accuracy given mod A. (Resolved) Dates: Start: 04/23/24 Expected End: 05/07/24 Resolved: 05/10/24 Description: Outcomes Date/Time User Outcome 05/10/24 1139 MARIE Arroyo Completed Goal: Pt will participate in sequencing/direction following tasks related to functional/ADL tasks given min A- 90% accuracy. Dates: Start: 04/24/24 Expected End: 05/29/24 Description: Outcomes Date/Time User Outcome 05/30/24 1603 MARIE Arroyo Adequate for Discharge Goal: Pt will improve intelligibility at the paragraph/conversational level to baseline and independent w/ use of strategies (Resolved) Dates: Start: 04/26/24 Expected End: 05/24/24 Resolved: 05/24/24 Description: Outcomes Date/Time User Outcome 05/24/24 1312 MARIE Arroyo Completed Goal: Pt will complete mod to higher level auditory/visual attention tasks - 90% accuracy given Mauro. (Resolved) Dates: Start: 05/10/24 Expected End: 05/17/24 Resolved: 05/15/24 Description: Outcomes Date/Time User Outcome 05/15/24 1521 MARIE Arroyo Completed Goal: Pt will improve complex attention for visual and/or auditory tasks to 90% accuracy indep. w/ use of strategies Dates: Start: 05/15/24 Expected End: 05/29/24 Description: Outcomes Date/Time User Outcome 05/30/24 160MARIE Connell Adequate for Discharge Goal: Pt will improve delayed recall of functional information given min A for encoding and indep. for retrieval - 90% accuracy Dates: Start: 05/15/24 Expected End: 05/29/24 Description: Outcomes Date/Time User Outcome 05/30/24 1603 MARIE Arroyo Adequate for Discharge Goal: Pt will improve higher level problem-solving/reasoning skills to 90% with min A. Dates: Start: 05/15/24 Expected End: 05/29/24 Description: Outcomes Date/Time User Outcome 05/30/24 1603 MARIE Arroyo Adequate for Discharge Encounter Problems (Resolved) Template: Speech Therapy Problem: Swallowing Dates: Start: 04/20/24 Resolved: 04/23/24 Goal: Patient will tolerate the least restrictive diet consistency to allow for safe consumption ofdaily meals (Resolved) Dates: Start: 04/20/24 Expected End: 05/04/24 Resolved: 04/23/24 Description: Outcomes Date/Time User Outcome 04/23/24 1253 MARIE Shrestha Completed Goal: Patient will demonstrate safe swallowing Intervention/techniques (Resolved) Dates: Start: 04/20/24 Expected End: 05/04/24 Resolved: 04/23/24 Description: Outcomes Date/Time User Outcome 04/23/24 1253 MARIE Shrestha Completed Plan: LOGISTICIAN Discharge Recommendations: Outpatient LOGISTICIAN Discharge Assessment/Impressions: On discharge, pt continues to display w/ mild cognitive linguistic deficits which are improved as compared to her initial evaluation. She scored a 21/30 on MoCA version 8.2 which indicates that pt continues to have mild deficits in the areas of visuospatial, generative naming, problem-solving, and executive functioning. She was provided w/ a HEP and education about cognitive-linguistic strategiesto use for d/c. Patient is discharged to: Home Health Care Services Patient/Family discharge education: Provided at bedside Additional Discharge Considerations: N/A Associated attestation - Jen Duque SLP - 05/30/2024 9:53 PM EST I attest that I, Amber Duque M.S.,[facility]-LOGISTICIAN, was physically involved in the ongoing assessment, decision making, and interventions provided during today's patient care session. I have reviewed all documentation for today's 05/30/24, entered by Speech Therapy Fellow, Sherri Rendon, and further attest that it is an accurate clinical record of today's encounter, including accurate and appropriate charges. * BRAD Viramontes - 05/30/2024 2:28 PM EST Images from the original note were not included. AGENDA PROGRESS NOTE Date: 05/30/2024 Author: BRAD Viramontes Patient ID: Amalia Ann is a 49 y.o. female : 1975 MR#: [id number] SUBJECTIVE Patient seen. She reports that she feels tired. She had a busy day yesterday. She went to outpatient neurology appointment. She reports that she was sitting on a hard seat for several hours which aggravated her chronic back pain. As result she had difficulty sleeping last night. Today she was falling asleep complaining of feeling tired and difficulty doing her therapy in the morning. Otherwise nonew weakness. She denies any headaches. No URI symptoms. No nausea no vomiting no diarrhea or any urinary symptoms. She reports that her appetite is fair. amLODIPine, 10 mg, oral, Daily aspirin, 81 mg, oral, Daily atorvastatin, 10 mg, oral, Nightly cholecalciferol, 2,000 Units, oral, Daily clopidogreL, 75 mg, oral, Daily cyanocobalamin, 1,000 mcg, oral, Daily enoxaparin, 40 mg, subcutaneous, q24h KATIE escitalopram, 5 mg, oral, Daily glipiZIDE, 5 mg, oral, q AM AC insulin lispro, 2-12 Units, subcutaneous, TID AC lidocaine, 1 patch, Topical, Daily magnesium oxide, 400 mg, oral, BID metFORMIN, 500 mg, oral, BID with meals PRN medications: acetaminophen, aluminum-magnesium hydroxide-simethicone, dextrose 50%, dextrose 50%, dextrose, dextrose, glucagon injection, hydrALAZINE, magnesium hydroxide, traMADoL ROS: CHEST: no sob, coughing HEART: no chest pain, orthopnea GI: no abd pain, or N/V. : No dysuria or frequency EXT: no leg pain or swelling Neuro as above OBJECTIVE Vitals: 05/29/24 0809 05/29/24 1509 05/30/24 0615 05/30/24 0700 BP: 139/89 (!) 143/90 (!) 154/70 138/76 BP Location: Left arm Right arm Right arm Patient Position: Sitting Lying Lying Pulse: 74 73 57 71 Resp: 18 16 Temp: 36.3 ??C (97.3 ??F) 36.7 ??C (98.1 ??F) 36.6 ??C (97.9 ??F) TempSrc: Oral Oral Oral SpO2: 100% 96% 100% Weight: Height: General: conscious alert no acute distress HEENT: pupils are equal round and reactive. extraocular movements are grossly intact lungs clear to auscultation, no wheezing or crackles noted heart regular rate and rhythm, no murmur or rubs abdomen soft nontender nondistended positive bowel sounds Musculoskeletal: No gross deformity to joints extremities without edema, erythema or calf tenderness neuro: left-sided weakness clinically unchanged. Dysarthria unchanged. skin: no rashes or lesions. psych: mood stable appearing, good eye contact. LABS HEMATOLOGY Lab Results Component Value Date WBC 6.1 05/30/2024 HGB 11.7 05/30/2024 HCT 35.4 05/30/2024 MCV 87.6 05/30/2024 PLT 300 05/30/2024 CHEMISTRY Lab Results Component Value Date GLUCOSE 100 05/30/2024 NA 137 05/27/2024 K 4.3 05/27/2024 CO2 24 05/27/2024 CL 107 05/27/2024 BUN 15 05/27/2024 CREATININE 0.69 05/27/2024 EGFR 108 05/27/2024 CALCIUM 8.5 05/27/2024 MG 1.8 (L) 05/27/2024 ANIONGAP 6 05/27/2024 Imaging: See prior CT MRI ASSESSMENT & PLAN Anterior right pontine stroke Patient had a recent small right pontine CVA on 03/26 and is on aspirin and Plavix. Now with new anterior right pontine stroke Suspect secondary to intrinsic extensive atherosclerotic disease right V4 high- grade stenosis Prior stroke workup with normal ESR CRP lupus anticoagulant RF SSA, SSB a and CA, beta-2 glycoprotein, anticardiolipin antibody, LP with 3 WBCs homocystine level of 6.9 LDL of 39 A1c was 12.4. Echo normal no clear bubble study EKG normal sinus rhythm septal infarct age undetermined per neurology recommendations were to continue aspirin Plavix and high dose statin Per rehab team Repeat Brain CT on 05/07/2024 showing no acute hemorrhage and no other acute superimposed findings MRI B motion artifact with chronic CVAs in the rt pontine area, age-indeterminate. No acute findings + moderate to severe intracranial atherosclerotic disease putting her at risk for further CVA's Sequela -dysarthria, left facial droop left-sided weakness left upper stronger than the left lower. Continue with ASA, Plavix Restart statin at 10mg as LDL 39 and recent weakness concern for possible statin induced myopathy. General weakness Likely multifactorial . Dehydration/ low Mg/ off statin for concern of statin myopathy CK was negative vitamin D was low on repletion mag was found to be 1.4 status post repletion Lipitor held initially Vitamin B12 is 233 vitamin D is 25 on replacement Mg 1.7 --> increase dose magnesium Pt improved. Restart statin Lipitor at 10 mg 05/30 patient with generalized weakness feeling fatigued. She states that she did not sleep well last night due to her pain in her back. Which is chronic for her. Otherwise she has no other symptoms. She states that she had a long day yesterday at her outpatient doctors appointment with the neurologist. Today she feels wiped out. Otherwise no new weakness noted. For completeness check COVID respiratory panel which was found to be negative. Labs are pending. So far CBC is within normal limits chemistry pending No urinary symptoms to suggest UTI She is back on Lipitor 10 mg doubt that this is a cause. She was also recently started on Lexapro approximately 7 days ago. Reevaluate in the morning may consider holding meds. Otherwise neurologically stable Diabetes mellitus A1c greater than 12. Continue Metformin 500mg bid Continue Glipizide 5 QD POC 1 24-140s rare 180s Improved glycemic control Hypertension Blood pressure was in the 130s to 190s Norvasc 5mg --> increase to 10mg on 05/24 Off lisinopril due to hx of allergic reaction BP acceptable range 140s to 130s systolic DVT prophylaxis Continue Lovenox FULL CODE * Jorden Soto LCSW - 05/30/2024 2:22 PM EST Discharge note: Met with pt at bedside to review discharge plan. Utilized Manager Parking #[id number]. Pt is discharging home tomorrow 05/31 at noon. Wheel Chair Van booked with [employer]. Trip #[id number]. [facility] assigned as vendor. Pt will discharge home with [facility] for RN PT and OT. Confirmed with [facility] no delay in SOC. SOC scheduled for 06/01/24. Family training completed. Pt has been registered for [employer]. Pt provided information on how to book, change or cancel a ride. Pts boyfriend attempted to sampler pickup medications at [facility] ([facility] No medications available to sampler pickup. Medications were sent to [facility] on [address]. Pt does not have a way to sampler pickup medications, [facility] cannot deliver. Spoke to [facility], who will call [facility] and attempt to have medications transferred. Pt will also need diabetic supplies. Dr. Bailey notified. Pt had no further questions or concerns at this time. Confirmed with [facility] at 4pm, medications were received from [facility] and will fill medications. Medications will be ready for sampler pickup tomorrow AM prior to DC. * Joshua Tellez, OT - 05/30/2024 10:00 AM EST [facility] Occupational Therapy Treatment Note 05/30/24 Patient: Amalia Ann : 1975 Age: 49 y.o. Gender: female Diagnosis: No Principal Problem: There is no principal problem currently on the Problem List. Please update the Problem List and refresh. Primary Rehab (Etiologic) Diagnosis: Patient Active Problem List Diagnosis HTN (hypertension) DM (diabetes mellitus) (CMS/HCC) CVA (cerebral vascular accident) (CMS/HCC) PMH: Past Medical History: Diagnosis Date CVA (cerebral vascular accident) (CMS/HCC) DM (diabetes mellitus) ([facility]/HCC) HTN (hypertension) PSH: History reviewed. No pertinent surgical history. Allergies: is allergic to lisinopril. Precautions: Precautions Medical Precautions: Fall Risk Safety Interventions: Call noriega within reach Swallow Precautions: (none) RUE Weight Bearing Status: Full LUE Weight Bearing Status: Full, As Tolerated RLE Weight Bearing Status: Full LLE Weight Bearing Status: Full Subjective: we don't have any more questions Procedures/Interventions: ADLs/IADLs Self Care/Home Management (ADLs) Time Entry: 15 Pt and SO Page at bedside. Video Barbadian><[place] Islander automatic embroidery machine tender utilized throughout. Pt reporting increased fatigue, eyes closing intermittently. Pt and SO both educated on recommendation of placing commode against wall to stabilize when taken out of bathroom, and next to bed at night time. SO Page reporting that he plans to be home 05/12 as he is not working. Pt and SO receptive to Louiseassisting with medication management upon return home as pt was not on medications prior. Educationprovided on use of pill box. Recommended that pt''s SO oversees medications to ensure that medications are taken on schedule. Recommendation that pt do not weaving machine operator shower due to absence of grab bar, recommending that pt weight shift on tub bench to bathe bottom. Pt and SO with no further questions. OT Assessment OT Assessment OT Assessment Results: Decreased upper extremity range of motion, Decreased upper extremity strength, Decreased fine motor control, Decreased functional mobility, Decreased gross motor control, Decreased IADLs Prognosis: Good Evaluation/Treatment Tolerance: Patient tolerated treatment well Comments: additional education and recommendations provided this session. OT Plan Plan Treatment Interventions: ADL retraining, Functional transfer training, Endurance training, UE strengthening/ROM, Equipment evaluation/education, Patient/family training, Fine motor coordination activities, Neuromuscular reeducation OT Plan: Skilled OT OT Frequency : 5-7 days per week OT Duration of Sessions: 60-90 min per session OT Treatments per day: 1 time per day OT - Evaluation Status: Complete OT Discharge Recommendations: Home OT Equipment Recommended: Bedside commode, Tub transfer bench OT - OK to Discharge: Yes Goals: Encounter Problems Encounter Problems (Active) Template: Occupational Therapy Problem: OT Membership Manager Goals Dates: Start: 04/20/24 Goal: Pt will be mod I with LB dressing Dates: Start: 04/20/24 Expected End: 05/18/24 Outcomes Date/Time User Outcome 05/30/24 0751 Jsohua Tellez, OT Adequate for Discharge Goal: Pt will be mod I with UB dressing Dates: Start: 04/20/24 Expected End: 05/18/24 Outcomes Date/Time User Outcome 05/30/24750 Joshua Tellez OT Adequate for Discharge Goal: Pt will be S with bathing Dates: Start: 04/20/24 Expected End: 05/18/24 Outcomes Date/Time User Outcome 05/30/24 Madhu Joshua Tellez OT Adequate for Discharge Goal: Pt will be mod I with toileting including txfer Dates: Start: 04/20/24 Expected End: 05/18/24 Outcomes Date/Time User Outcome 05/30/24 Madhu Joshua Tellez OT Adequate for Discharge Goal: Pt will perform tub txfer with LRAD with S. Dates: Start: 04/20/24 Expected End: 05/18/24 Outcomes Date/Time User Outcome 05/30/24 Madhu Joshua Tellez OT Adequate for Discharge Goal: Pt will be mod I with snack/beverage retrieval at LRAD Dates: Start: 04/20/24 Expected End: 05/18/24 Description: Outcomes Date/Time User Outcome 05/30/24750 Joshua Tellez OT Adequate for Discharge Goal Note filed on 05/30/24750 by Joshua Tellez OT W/c level Problem: OT Short Term Goals Dates: Start: 05/15/24 Goal: Pt will perform toileting with steadying A with use of LRAD. Dates: Start: 05/15/24 Expected End: 05/22/24 Outcomes Date/Time User Outcome 05/30/24 Madhu Joshua Tellez OT Adequate for Discharge Goal: Pt will perform LB dressing steadying A Dates: Start: 05/15/24 Expected End: 05/22/24 Outcomes Date/Time User Outcome 05/30/24 Madhu Joshua Tellez OT Adequate for Discharge Goal: Pt will perform UB dressing with PETERSON Dates: Start: 05/15/24 Expected End: 05/22/24 Outcomes Date/Time User Outcome 05/30/24 Madhu Joshua Tellez OT Adequate for Discharge Goal: Pt will perform bathing with Steadying A for balance. Dates: Start: 05/15/24 Expected End: 05/22/24 Outcomes Date/Time User Outcome 05/30/24 0751 Joshua Tellez OT Adequate for Discharge Goal: Pt will utilize L UE gross assist during oral hygiene tasks. Dates: Start: 05/15/24 Expected End: 05/22/24 Outcomes Date/Time User Outcome 05/30/24 0751 Joshua Tellez OT Adequate for Discharge Encounter Problems (Resolved) Template: Occupational Therapy Problem: OT Short Term Goals Dates: Start: 04/20/24 Resolved: 05/03/24 Goal: Pt will perform toileting with partial A (Resolved) Dates: Start: 04/20/24 Expected End: 04/27/24 Resolved: 05/03/24 Outcomes Date/Time User Outcome 05/03/24 Susan Gray OT Completed Goal: Pt will perform LB dressing with partial A (Resolved) Dates: Start: 04/20/24 Expected End: 04/27/24 Resolved: 05/03/24 Outcomes Date/Time User Outcome 05/03/24 Susan Gray OT Completed Goal: Pt will perform bathing with steadying A. (Resolved) Dates: Start: 04/20/24 Expected End: 04/27/24 Resolved: 05/03/24 Outcomes Date/Time User Outcome 05/03/24 Susan Gray OT Completed Goal: Pt will be able to utilize L UE as an independent stabilizer during grooming tasks (Resolved) Dates: Start: 04/20/24 Expected End: 04/27/24 Resolved: 05/03/24 Outcomes Date/Time User Outcome 05/03/24 Susan Gray OT Completed Goal: Pt will perform UB dressing with PETERSON, with carryover of tasha dressing technique (Resolved) Dates: Start: 04/20/24 Expected End: 04/27/24 Resolved: 05/03/24 Outcomes Date/Time User Outcome 05/03/24 Susan Gray OT Completed Education Documentation No documentation found. Education Comments No comments found. Start/Stop Time OT Time Calculation OT Start Time: 1000 OT Stop Time: 1015 OT Time Calculation (min): 15 min Therapy Minutes: Occupational Therapy OT Individual: 15 * Elzbieta Garcia PT - 05/30/2024 8:25 AM EST [facility] Physical Therapy Discharge Evaluation Note 05/30/24 Patient: Amalia Ann : 1975 Age: 49 y.o. Gender: female Primary Language: Barbadian Diagnosis: No Principal Problem: There is no principal problem currently on the Problem List. Please update the Problem List and refresh. HPI: Defer to EMR Past Medical History: Diagnosis Date CVA (cerebral vascular accident) ([facility]/HCC) DM (diabetes mellitus) ([facility]) HTN (hypertension) History reviewed. No pertinent surgical history. Allergies: is allergic to lisinopril. Precautions: Medical Precautions: Fall Risk Safety Interventions: Call noriega within reach Swallow Precautions: (none) RUE Weight Bearing Status: Full LUE Weight Bearing Status: Full, As Tolerated RLE Weight Bearing Status: Full LLE Weight Bearing Status: Full SUBJECTIVE I feel good Home Living: Type of Home: Apartment Lives With: Significant other (Cares for mother) Home Adaptive Equipment: None Home Layout: One level Home Access: Stairs to enter with rails Entrance Stairs-Rails: Rail on the left going up Entrance Stairs-Number of Steps: 4 flights Bathroom Shower/Tub: Tub/shower unit (no grab bars) Bathroom Toilet: Standard Bathroom Equipment: None Pain:0/10 OBJECTIVE General Observation: Seated in WC agreeable to participating in therapy session. Cognition/Communication: Vitals: 144/81 73 HR 97 % SPO2 Strength: RLE 4/5 LLE -4/5 hip flexion LLE +3/5 quad LLE 4-/5 hamstring LLE -2/5 PF LLE 1/5 DF Range of Motion: WFL Edema: Tone: QUALITY INDICATORS SCORING: Bed Mobility Roll Left and Right Assistance Needed: Independent CARE Score - Roll Left and Right: 6 Sit to Lying Assistance Needed: Independent CARE Score - Sit to Lyin Lying to Sitting on Side of Bed Assistance Needed: Independent CARE Score - Lying to Sitting on Side of Bed: 6 Transfers Sit to Stand Assistance Needed: Independent CARE Score - Sit to Stand: 6 Chair/[id number] Transfer Assistance Needed: Independent CARE Score - Chair/[id number] Transfer: 6 Toilet Transfer Assistance Needed: Independent CARE Score - Toilet Transfer: 6 Car Transfer Assistance Needed: Independent CARE Score - Car Transfer: 6 Ambulation Walk 10 Feet Assistance Needed: Supervision Physical Assistance Level: 25% or less Comment: SBQC CARE Score - Walk 10 Feet: 4 Walk 50 Feet with Two Turns Assistance Needed: Supervision Physical Assistance Level: 25% or less Reason if not Attempted: Safety concerns CARE Score - Walk 50 Feet with Two Turns: 4 Walk 150 Feet Reason if not Attempted: Safety concerns CARE Score - Walk 150 Feet: 88 Walking 10 Feet on Uneven Surfaces Reason if not Attempted: Safety concerns CARE Score - Walking 10 Feet on Uneven Surfaces: 88 Stairs 1 Step (Curb) Assistance Needed: Supervision CARE Score - 1 Step (Curb): 4 4 Steps Assistance Needed: Supervision CARE Score - 4 Steps: 4 12 Steps Assistance Needed: Supervision CARE Score - 12 Steps: 4 Biochemistry Professor Object Picking Up Object Assistance Needed: Independent Comment: leather lacer CARE Score - Picking Up Object: 6 Wheelchair Uses a Wheelchair/Scooter? Uses a Wheelchair/Scooter?: Yes Wheel 50 Feet with Two Turns Assistance Needed: Independent CARE Score - Wheel 50 Feet with Two Turns: 6 Type of Wheelchair/Scooter: Manual Wheel 150 Feet Assistance Needed: Independent CARE Score - Wheel 150 Feet: 6 Type of Wheelchair/Scooter: Manual PT TREATMENT PROVIDED TODAY: Neuromuscular Reeducation Balance/Neuromuscular Re-Education Neuromuscular Re-Education Time Entry: 75 Pt seated in with Aria present. Aria purchased SBQC for pt. Video automatic embroidery machine tender [id number] used for therapy session. Pt needing assistance donning shoe, pt completed skin check prior to donning shoe, pt able to don AFO. Pt mod-I WC mobility down to therapy gym. Therapist and pt completed ascending and descending 8 inch platform step with SBQC, pt needing partial A x1 for platform step x2 trials. Pt and Aria completed x 8 ascending and descending platform step with SBQC, pt needing cues for stepping, Aria able to provide appropriate assistance ascending and descending platform step with SBQC.Pt reporting increased fatigue, reporting feeling dizzy. Therapist assessing vitals and LE strength, defer to above. Pt reporting feeling extreme fatigue. CN 6 intact, Joshua OT reassessing UE strength reporting no change in strength. Therapist assessing LE strength, no change in LE strength. Pt dep. Brought back to room. Pt completed stand pivot transfer mod-I, no LOB or change in mobility status. Therapist doffing AFO, skin intact. Pt completed bed mobility mod-I. Pt left supine in bed, call noriega in reach, bed alarm on, all needs met. Aria and pt with no further questions for this verse writer. Aria verbalized he would be able to assist pt up and down platform steps and on stairs. Pt and Louisagreeable to all recommendations. Therapist updating DINH Burton and VAHE Correa regarding change in fatigue level, reporting increasedfatigue throughout therapy session in WC. Therapist updating no change in strength in LE. PT ASSESSMENT: Aria able to provide appropriate assistance for d/c home. rAia and Amalia agreeable to all recommendations for d/c home. Patient discharged from this level of care, therapist recommending Home physical therapy once discharged from this level of care to improve LE Strength, endurance, balance , mobility deficits , motorcoordination , and gait and assist patient in returning to prior level of function. PT Assessment Results: Decreased strength, Decreased range of motion, Impaired balance, Impaired gait Prognosis: Good Evaluation/Treatment Tolerance: Patient tolerated treatment well Comments: Pt with good tolerance to treatment session. Challenged by turning during ambulation. Will continue to benefit from skilled physical therapy. PT PLAN: Treatment/Interventions: (As per IE) Recommending Home Physical Therapy Goals: Encounter Problems Encounter Problems (Active) Template: Physical Therapy Problem: PT Chcf Goals Dates: Start: 04/20/24 Goal: mod I bed mobility (Resolved) Dates: Start: 04/20/24 Expected End: 05/11/24 Resolved: 05/30/24 Outcomes Date/Time User Outcome 05/30/24 113Angie Garcia, PT Completed Goal: mod I transfers with LAD (Resolved) Dates: Start: 04/20/24 Expected End: 05/11/24 Resolved: 05/30/24 Outcomes Date/Time User Outcome 05/30/24 Phoenix Garcia PT Completed Goal: mod I wc mobility 150' (Resolved) Dates: Start: 04/20/24 Expected End: 05/11/24 Resolved: 05/30/24 Outcomes Date/Time User Outcome 05/30/24 Phoenix Garcia, PT Completed Goal: up/dn 4 flights of stairs min A (Resolved) Dates: Start: 04/20/24 Expected End: 05/11/24 Resolved: 05/30/24 Outcomes Date/Time User Outcome 05/30/24 1137 Elzbieta Garcia PT Completed Goal: Ambulate x50ft LRAD SUP Dates: Start: 05/20/24 Outcomes Date/Time User Outcome 05/30/24 1137 Elzbieta Garcia PT Adequate for Discharge Encounter Problems (Resolved) Template: Physical Therapy Problem: PT Short Term Goals Dates: Start: 04/20/24 Resolved: 05/20/24 Goal: Pt will perform bed mobility min A (Resolved) Dates: Start: 04/20/24 Expected End: 04/27/24 Resolved: 05/17/24 Outcomes Date/Time User Outcome 05/17/24 1403 Elzbieta Garcia PT Completed Goal: Pt will transfer with min A (Resolved) Dates: Start: 04/20/24 Expected End: 04/27/24 Resolved: 05/20/24 Outcomes Date/Time User Outcome 05/20/24 1001 Elzbieta Garcia PT Completed Goal: Pt will ambulate 25' with LAD mod A (Resolved) Dates: Start: 04/20/24 Expected End: 04/27/24 Resolved: 05/20/24 Outcomes Date/Time User Outcome 05/20/24 1001 Elzbieta Garcia PT Completed Goal: Assess stairs as appropriate (Resolved) Dates: Start: 04/20/24 Expected End: 04/27/24 Resolved: 05/06/24 Outcomes Date/Time User Outcome 05/06/24 1038 Elzbieta Garcia PT Completed Goal: Supervision wc mobility and mgmt 150' (Resolved) Dates: Start: 04/20/24 Expected End: 04/27/24 Resolved: 05/06/24 Description: Outcomes Date/Time User Outcome 05/06/24 1038 Elzbieta Garcia PT Completed Education Documentation Mobility Training, taught by Elzbieta Garcia PT at 05/30/2024 4:08 PM. Learner: Patient Readiness: Acceptance Method: Explanation, Demonstration Response: Verbalizes Understanding, Demonstrated Understanding Comment: Stair training, signs and symptoms of stroke. Activation of EMS (Call 911), taught by Elzbieta Garcia PT at 05/30/2024 4:08 PM. Learner: Patient Readiness: Acceptance Method: Explanation, Demonstration Response: Verbalizes Understanding, Demonstrated Understanding Comment: Stair training, signs and symptoms of stroke. Teach positioning to prevent injury, taught by Elzbieta Garcia PT at 05/30/2024 4:08 PM. Learner: Patient Readiness: Acceptance Method: Explanation, Demonstration Response: Verbalizes Understanding, Demonstrated Understanding Comment: Stair training, signs and symptoms of stroke. Education Comments No comments found. Session Start/Stop Time: 829 [id number] Therapy Minutes Physical Therapy PT Individual: 75 * Neida Emanuel Bailey, DO - 05/30/2024 8:06 AM EST Images from the original note were not included. [facility] Daily Progress Note Patient name: Amalia Ann : 1975 SUBJECTIVE: Patient seen and examined at bedside today. No acute events overnight. Denies headaches, dizziness,shortness of breath, chest pain, nausea, constipation. Reports low back pain rated 6/10 in intensity due to sitting in wheelchair for prolonged time while going to Neurology follow up appointment yesterday. OBJECTIVE: Vitals: 05/29/24 0809 05/29/24 1509 05/30/24 0615 05/30/24 0700 BP: 139/89 (!) 143/90 (!) 154/70 138/76 BP Location: Left arm Right arm Right arm Patient Position: Sitting Lying Lying Pulse: 74 73 57 71 Resp: 18 16 Temp: 36.3 ??C (97.3 ??F) 36.7 ??C (98.1 ??F) 36.6 ??C (97.9 ??F) TempSrc: Oral Oral Oral SpO2: 100% 96% 100% Weight: Height: Physical Examination: General: Alert, in no acute cardiopulmonary distress. Mental Status: Oriented to person, place and time. Normal affect. Head: Normocephalic. Eyes: Extraocular muscles grossly intact. Ear, Nose and Throat: Oropharynx clear, mucous membranes moist. Ears and nose without masses, lesions or deformities. Neck: Supple, Trachea midline. Respiratory: Clear to auscultation and percussion. No wheezing, rales or rhonchi. Cardiovascular: Heart sounds normal. No thrills. Regular rate and rhythm, no murmurs, rubs or gallops. Gastrointestinal: Abdomen soft, non-tender, non-distended. Normal bowel sounds. Neurologic: Cranial nerves II-XII grossly intact. Moves all extremities spontaneously. Sensation intact bilaterally. +left hemiparesis Skin: No rashes or lesions. No petechiae or purpura. No edema. Musculoskeletal: No cyanosis or clubbing. No gross deformities. Normal range of motion. Strength 4/5 left shoulder abduction, 4/5 left elbow flexion, 1/5 left wrist extension, 1/5 left finger flexion. Strength 4/5 left hip flexion and knee extension. Left dorsiflexion strength 1/5. CURRENT INPATIENT MEDICATIONS: Current Facility-Administered Medications: acetaminophen (TYLENOL) tablet 650 mg, 650 mg, oral, q6h PRN, BRAD Hicks, 650 mg at aluminum-magnesium hydroxide-simethicone (MAALOX) 200-200-20 mg/5 mL suspension 30 mL, 30 mL, oral,q4h PRN, BRAD Hicks, 30 mL at 05/06/24 0354 amLODIPine (NORVASC) tablet 10 mg, 10 mg, oral, Daily, BRAD Viramontes, 10 mg at 05/29/24 08 aspirin EC tablet 81 mg, 81 mg, oral, Daily, BRAD Hicks, 81 mg at 05/29/24 08 atorvastatin (LIPITOR) tablet 10 mg, 10 mg, oral, Nightly, BRAD Viramontes, 10 mg at 05/29/242049 cholecalciferol (VITAMIN D-3) tablet 2,000 Units, 2,000 Units, oral, Daily, Leah Philippe NP, 2,000 Units at 05/29/24 08 clopidogreL (PLAVIX) tablet 75 mg, 75 mg, oral, Daily, BARD Hicks, 75 mg at 05/29/24 08 cyanocobalamin (VITAMIN B-12) tablet 1,000 mcg, 1,000 mcg, oral, Daily, Leah Philippe NP, 1,000 mcg at 05/29/24 0810 dextrose (D50W) 50% injection 12.5 g, 12.5 g, intravenous, q15 min PRN, BRAD Hicks dextrose (D50W) 50% injection 25 g, 25 g, intravenous, q15 min PRN, BRAD Hicks dextrose 15 gram/60 mL oral solution 15 g, 15 g, oral, q15 min PRN, BRAD Hicks dextrose 15 gram/60 mL oral solution 30 g, 30 g, oral, q15 min PRN, BRAD Hicks enoxaparin (LOVENOX) injection 40 mg, 40 mg, subcutaneous, q24h KATIE, Leah Philippe, JASON, 40 mg at 05/29/24 0809 escitalopram (LEXAPRO) tablet 5 mg, 5 mg, oral, Daily, Neida Bailey DO, 5 mg at 05/29/24 0810 glipiZIDE (GLUCOTROL) tablet 5 mg, 5 mg, oral, q AM AC, BRAD Viramontes, 5 mg at 05/29/24 0809 Glucagon HCl (rDNA) injection 1 mg, 1 mg, intramuscular, Once PRN, BRAD Hicks hydrALAZINE (APRESOLINE) tablet 10 mg, 10 mg, oral, TID PRN, BRAD Viramontes insulin lispro injection 2-12 Units, 2-12 Units, subcutaneous, TID AC, Neida Bailey DO, 2 Units at 05/29/24 165 lidocaine 4 % patch 1 patch, 1 patch, Topical, Daily, Neida Bailey DO magnesium hydroxide (MILK OF MAGNESIA) 400 mg/5 mL suspension 30 mL, 30 mL, oral, Daily PRN, BRAD Rojas, 30 mL at 04/23/24 0529 magnesium oxide (MAG-OX) tablet 400 mg, 400 mg, oral, BID, BRAD Viramontes, 400 mg at 049 metFORMIN (GLUCOPHAGE) tablet 500 mg, 500 mg, oral, BID with meals, Leah Philippe NP, 500 mg at 05/29/24 1700 traMADoL (ULTRAM) tablet 25 mg, 25 mg, oral, q6h PRN, Radhika Barber, JASON, 25 mg at 05/06/242031 LABS: Lab Results Component Value Date WBC 7.5 05/22/2024 RBC 4.10 05/22/2024 HGB 11.9 05/22/2024 HCT 36.3 05/22/2024 MCV 89.6 05/22/2024 MCHC 32.8 05/22/2024 RDW 13.1 05/22/2024 PLT 297 05/22/2024 MPV 11.9 (H) 05/22/2024 NRBC 0.0 05/22/2024 DIFF Lab Results Component Value Date LYMPHOPCT 10.4 05/06/2024 NEUTROABS 7.49 (H) 05/06/2024 LYMPHSABS 0.92 (L) 05/06/2024 MONOABS 0.33 05/06/2024 EOSABS 0.02 05/06/2024 BASOSABS 0.02 05/06/2024 IMMGRANABS 0.03 05/06/2024 RETIC No results found for: RETIC , RETICCTPCT Lab Results Component Value Date NA 137 05/27/2024 K 4.3 05/27/2024 CL 107 05/27/2024 CO2 24 05/27/2024 GLUCOSE 155 (H) 05/30/2024 BUN 15 05/27/2024 CREATININE 0.69 05/27/2024 CALCIUM 8.5 05/27/2024 PROT 6.3 05/27/2024 ALBUMIN 3.0 (L) 05/27/2024 BILITOT 0.3 05/27/2024 AST 11 05/27/2024 ALT 20 05/27/2024 MG 1.8 (L) 05/27/2024 ALKPHOS 76 05/27/2024 CKTOTAL 31 05/13/2024 EGFR 108 05/27/2024 IMPRESSION & PLAN: #Impaired mobility and self care -secondary to CVA -continue PT, OT, LOGISTICIAN, and nursing care #Acute anterior right pontine stroke #Left hemiparesis #Dysarthria -Aspirin 81mg daily -Plavix 75mg daily -Atorvastatin 80mg nightly discontinued on 05/17 due to weakness and concern for possible myopathy which is unlikely --> restarted Atorvastatin 10mg nightly on 05/24 -CT head 05/07/24 showed subtle hypoattenuation in the rightward srinivas correlating with an infarct demonstrated on the comparison MRI, no acute hemorrhage or other acute superimposed findings -CTA head/neck from [facility] showed moderate to severe intracranial atherosclerotic disease which likely puts her at risk for further CVAs -05/09 due to continued worsening weakness MRI brain ordered also reached out to Dr Reynoso at [facility] Neurology to inform of changes in neurostatus --> no response from Dr Reynoso, MRI brain 05/10 redemonstrated prior known infarcts without acute abnormality -continue therapies -left AFO received and will continue use -f/u Neurology 05/29/24 #Dysphagia -regular diet with thin liquids -continue LOGISTICIAN #Depression -Escitalopram 5mg daily started 05/24, continue #Hypertension -Lisinopril 10mg daily increased to 20mg daily on 04/25 --> discontinued 05/01 due to complaintsof itchiness to her throat -Amlodipine 5mg daily started 04/28 --> increased to 10mg daily on 05/24 #Diabetes mellitus type 2 -noncompliant with treatment prior to admission -continue diabetic education -will need glucometer and supplies on discharge -ISS -Lantus 22 units QHS decreased to 10 units QHS on 05/02 --> discontinued on 05/03 -Metformin 500mg BID started 04/28 -Glipizide 5mg daily started 05/03 #Low back pain -Lidocaine patch started 05/30 #Hypomagnesemia -Magnesium oxide 400mg daily started 05/18 --> increased to 400mg BID on 05/22. -on 05/28 Mag 1.8 continue current regimen #Bladder management -UA 05/06 negative for UTI -UA 05/16 negative for UTI #Bowel management -Colace and Senna discontinued on 05/01 due to loose stools -monitor #DVT prophylaxis: Lovenox 40mg daily * Joshua Tellez OT - 05/30/2024 7:00 AM EST [facility] Occupational Therapy Discharge Note 05/30/24 Patient: Amalia Ann : 1975 Age: 49 y.o. Gender: female Diagnosis: No Principal Problem: There is no principal problem currently on the Problem List. Please update the Problem List and refresh. Primary Rehab (Etiologic) Diagnosis: Patient Active Problem List Diagnosis HTN (hypertension) DM (diabetes mellitus) ([facility]) CVA (cerebral vascular accident) ([facility]) PMH: Past Medical History: Diagnosis Date CVA (cerebral vascular accident) ([facility]) DM (diabetes mellitus) ([facility]) HTN (hypertension) PSH: History reviewed. No pertinent surgical history. Allergies: is allergic to lisinopril. Precautions: Precautions Medical Precautions: Fall Risk Safety Interventions: Call noriega within reach Swallow Precautions: (none) RUE Weight Bearing Status: Full LUE Weight Bearing Status: Full, As Tolerated RLE Weight Bearing Status: Full LLE Weight Bearing Status: Full Vitals: BP: 138/76 Heart Rate: 71 SpO2: 100 % Pain: Pain Assessment: 0-10 Pain Score: 6 Pain Type: Acute pain Pain Location: Back Pain Orientation: Lower Patient Subjective: I did it all myself Session Summary from 05/30/24 D/c eval completed. CAMS Discharge Is there evidence of an acute change in mental status from the patient's baseline?: No (05/30/24 07 : Joshua Tellez, BRANNON) Inattention: Behavior not present (05/30/24 0700 : Joshua Tellez OT) Disorganized thinking: Behavior not present (05/30/24 07 : Joshua Tellez OT) Altered level of consciousness: Behavior not present (05/30/24 0700 : Joshua Tellez OT) BIMS Discharge 15 (05/30/24 0700 : Joshua Tellez OT) Hearing, Speech, and Vision- Discharge Hearing, Speech, and Vision Ability to Hear: Adequate Ability to See in Adequate Light: Adequate Expression of Ideas and Wants: Some difficulty Understanding Verbal and Non-Verbal Content: Usually understands FUNCTIONAL STATUS ADL ASSIST Eating Assistance Needed: Independent Oral Hygiene Oral Hygiene Assistance Needed: Independent Comment: from w/c CARE Score - Oral Hygiene: 6 Toileting Toileting Hygiene Assistance Needed: Independent Physical Assistance Level: No physical assistance Comment: with commode frame CARE Score - Toileting Hygiene: 6 Bathing Shower/Bathe Self Assistance Needed: Independent Physical Assistance Level: No physical assistance Comment: Sponge bathing CARE Score - Shower/Bathe Self: 6 UE Dressing Upper Body Dressing Assistance Needed: Independent Physical Assistance Level: No physical assistance CARE Score - Upper Body Dressin LE Dressing Lower Body Dressing Assistance Needed: Independent Physical Assistance Level: No physical assistance CARE Score - Lower Body Dressin Footwear Putting On/Taking Off Footwear Assistance Needed: Physical assistance Physical Assistance Level: 25% or less CARE Score - Putting On/Taking Off Footwear: 3 Toilet Transfer Mod I to 3-in-1 commode. Tub/Shower Transfer Equipment Provided: Order placed through [facility] for tub txfer bench and a 3-in-1 commode. Plan for DME to be delivered to pt's house. Recommending that commode frame be place over toilet whenSO home, to allow SO to assist pt with amb into bathroom for toileting. When SO not home, recommending that commode be placed outside of bathroom so that pt able to INDEPENDENTLY txfer to commode from w/c. Recommending commode placed next to bed at night. recommending tub txfer bench to access tub. Vision: Vision - Complex Assessment Tracking: (jumpiness during tracking, increased time to locate taregt in bottom R quadrant.) Saccades: (Decreased speed, and increased time to find stimuli on R when compatred to L (pt reporting that her vision on the R is worse, post first CVA).) Diplopia Assessment: Present in far gaze Vision Comments: wears reading glasses. Perception: Perception Inattention/Neglect: Appears intact Initiation: Appears intact Motor Planning: Appears intact Proprioception: Proprioception Proprioception: No apparent deficits Sensation: Sensation Light Touch: No apparent deficits Hand Function: Hand Function Hand Function Description: (gross grasp in L hand, decreased in hand manipulation.) Balance: Static sitting balance Static Sitting Balance Static Sitting-Level of Assistance: Independent Dynamic sitting balance Dynamic Sitting Balance Dynamic Sitting-Level of Assistance: Independent Static standing balance Static Standing Balance Static Standing-Level of Assistance: Independent Dynamic standing balance Dynamic Standing Balance Dynamic Standing-Level of Assistance: Supervision or touching assistance UPPER EXTREMITY ASSESSMENTS RUE Assessment RUE Assessment: Within Functional Limits LUE Assessment LUE Assessment: Impaired LUE AROM (degrees) L Shoulder Flexion 0-170: 130 L Shoulder ABduction 0-160/180: 130 L Shoulder Internal Rotation 0-70: 55 L Shoulder External Rotation 0-90: 75 L Elbow Flexion/Extension 0-135-150: 0-132 L Forearm Pronation 0-80-90: 90 L Forearm Supination 0-80-90: 90 L Wrist Flexion 0-80: 15 L Wrist Extension 0-70: 55 LUE Strength L Shoulder Flexion: 3-/5 L Shoulder ABduction: 3-/5 L Elbow Flexion: 3+/5 L Elbow Extension: 4-/5 L Forearm Pronation: 3-/5 L Forearm Supination: 3-/5 L Wrist Flexion: 2+/5 L Wrist Extension: 3-/5 STANDARDIZED TESTS Right Hand Strength - Facility Designer (lbs) Handle Setting 2: 50 lbs Left Hand Strength - Facility Designer (lbs) Handle Setting 2: 11 lbs 9 Hole Peg Test (seconds) Right - 9 Hole Peg Test (seconds): 32 seconds Left - 9 Hole Peg Test (seconds): (pt placed 3 pegs in 2 minutes.) Procedures/Interventions: Re-eval- 30 minutes: D/c eval performed please see containers above. Self care- 60 minutes Pt supine upon arrival, agreeable to participation. [place] Islander video automatic embroidery machine tender #[id number] utilized throughout session. Pt reporting back pain following appointment yesterday. HOB lowered to simulate home, Supine>sit without use of bed rail mod I. Pt educated and provided visual demo of placing commode against wall when placing outside of bathroom to allow independent toielting when SO not home. Pt verbilizing understanding of recommendation of placing against wall. SPT from bed>w/c without UE support with mod I. Pt performed oral hygiene from w/c level with mod I with use of L UE as gross assist. Pt propelled from from room>ADL bathroom with mod I. Functional amb into bathroom at [facility] with S/steadying A. Pt txfered to toilet with commode frame with S. Pt toileted with mod I. Pt txfered to tub bench with QC with S. Pt txfered into tub with use of tub bench with S. Pt doffed LB/UB clothing mod I. Pt bathed mainly seated with use of hand held shower with S, Steadying A in stand for pt to bathe/rinse buttocks with UE support on grab bar. Pt dried off while seated with S. Pt txferd out of tub S with use of tub bench. SPT from tub bench>w/c mod I. Pt propelled back to room mod I. Once in room pt gathered clothing mod I w/c level. Pt propelled self into bathroom and txfered to toilet with commode frame over toilet, mod I, with UE support on commode frame arm r est. Pt toileted with mod I. Pt performed LB/UB dressing from w/c with mod I. Pt ate breakfast withmod I. End of session pt seated in w/c with chair alarm on and call noriega in reach, with RN present. OT Plan OT Discharge Recommendations: Home OT Equipment Recommended: Bedside commode, Tub transfer bench OT - OK to Discharge: Yes OT Discharge Recommendations: Home OT Equipment Recommended: Bedside commode, Tub transfer bench OT - OK to Discharge: Yes Goals: Encounter Problems Encounter Problems (Active) Template: Occupational Therapy Problem: OT Chcf Goals Dates: Start: 04/20/24 Goal: Pt will be mod I with LB dressing Dates: Start: 04/20/24 Expected End: 05/18/24 Outcomes Date/Time User Outcome 05/30/24 Noris Tellez, OT Adequate for Discharge Goal: Pt will be mod I with UB dressing Dates: Start: 04/20/24 Expected End: 05/18/24 Outcomes Date/Time User Outcome 05/30/24 Madhu Joshua Tellez, OT Adequate for Discharge Goal: Pt will be S with bathing Dates: Start: 04/20/24 Expected End: 05/18/24 Outcomes Date/Time User Outcome 05/30/24 Noris Tellez, OT Adequate for Discharge Goal: Pt will be mod I with toileting including txfer Dates: Start: 04/20/24 Expected End: 05/18/24 Outcomes Date/Time User Outcome 05/30/24 Noris Tellez, OT Adequate for Discharge Goal: Pt will perform tub txfer with LRAD with S. Dates: Start: 04/20/24 Expected End: 05/18/24 Outcomes Date/Time User Outcome 05/30/24 Noris Tellez OT Adequate for Discharge Goal: Pt will be mod I with snack/beverage retrieval at LRAD Dates: Start: 04/20/24 Expected End: 05/18/24 Description: Outcomes Date/Time User Outcome 05/30/24 075 Joshua Tellez OT Adequate for Discharge Goal Note filed on 05/30/24750 by Joshua Tellez OT W/c level Problem: OT Short Term Goals Dates: Start: 05/15/24 Goal: Pt will perform toileting with steadying A with use of LRAD. Dates: Start: 05/15/24 Expected End: 05/22/24 Outcomes Date/Time User Outcome 05/30/24 075 Joshua Tellez OT Adequate for Discharge Goal: Pt will perform LB dressing steadying A Dates: Start: 05/15/24 Expected End: 05/22/24 Outcomes Date/Time User Outcome 05/30/24 Madhu Joshua Tellez OT Adequate for Discharge Goal: Pt will perform UB dressing with PETERSON Dates: Start: 05/15/24 Expected End: 05/22/24 Outcomes Date/Time User Outcome 05/30/24 Madhu Joshua Tellez OT Adequate for Discharge Goal: Pt will perform bathing with Steadying A for balance. Dates: Start: 05/15/24 Expected End: 05/22/24 Outcomes Date/Time User Outcome 05/30/24 Madhu Joshua Tellez OT Adequate for Discharge Goal: Pt will utilize L UE gross assist during oral hygiene tasks. Dates: Start: 05/15/24 Expected End: 05/22/24 Outcomes Date/Time User Outcome 05/30/24 Madhu Joshua Tellez OT Adequate for Discharge Encounter Problems (Resolved) Template: Occupational Therapy Problem: OT Short Term Goals Dates: Start: 04/20/24 Resolved: 05/03/24 Goal: Pt will perform toileting with partial A (Resolved) Dates: Start: 04/20/24 Expected End: 04/27/24 Resolved: 05/03/24 Outcomes Date/Time User Outcome 05/03/24 1407 Albina Gray OT Completed Goal: Pt will perform LB dressing with partial A (Resolved) Dates: Start: 04/20/24 Expected End: 04/27/24 Resolved: 05/03/24 Outcomes Date/Time User Outcome 05/03/24 Susan Gray OT Completed Goal: Pt will perform bathing with steadying A. (Resolved) Dates: Start: 04/20/24 Expected End: 04/27/24 Resolved: 05/03/24 Outcomes Date/Time User Outcome 05/03/24 Susan Gray OT Completed Goal: Pt will be able to utilize L UE as an independent stabilizer during grooming tasks (Resolved) Dates: Start: 04/20/24 Expected End: 04/27/24 Resolved: 05/03/24 Outcomes Date/Time User Outcome 05/03/24 Susan Gray OT Completed Goal: Pt will perform UB dressing with PETERSON, with carryover of tasha dressing technique (Resolved) Dates: Start: 04/20/24 Expected End: 04/27/24 Resolved: 05/03/24 Outcomes Date/Time User Outcome 05/03/24 Susan Gray OT Completed OT Assessment OT Assessment OT Assessment Results: Decreased upper extremity range of motion, Decreased upper extremity strength, Decreased fine motor control, Decreased functional mobility, Decreased gross motor control, Decreased IADLs Prognosis: Good Evaluation/Treatment Tolerance: Patient tolerated treatment well Comments: (Completed 90 min session. Pt progressing to mod I with ADLs, recommending S in shower and bathing entirely seated, mod I with sponge bathing. Recommending assist with heavy meal prep and medication management. Pt would benefit from further OT to target L UE strength/AROM/ increase functional use, dynamic balance, IADLs, and functional mobility. Education Documentation Safe Use of DME, taught by Joshua Tellez OT at 05/30/2024 11:06 AM. Learner: Patient Readiness: Acceptance Method: Explanation, Demonstration Response: Verbalizes Understanding, Demonstrated Understanding ADL Training, taught by Joshua Tellez OT at 05/30/2024 11:06 AM. Learner: Patient Readiness: Acceptance Method: Explanation, Demonstration Response: Verbalizes Understanding, Demonstrated Understanding Home Exercise Program, taught by Joshua Tellez OT at 05/30/2024 11:06 AM. Learner: Patient Readiness: Acceptance Method: Explanation, Demonstration Response: Verbalizes Understanding, Demonstrated Understanding Body Mechanics, taught by Joshua Tellez OT at 05/30/2024 11:06 AM. Learner: Patient Readiness: Acceptance Method: Explanation, Demonstration Response: Verbalizes Understanding, Demonstrated Understanding Fall Precautions, taught by Joshua Tellez OT at 05/30/2024 11:06 AM. Learner: Patient Readiness: Acceptance Method: Explanation, Demonstration Response: Verbalizes Understanding, Demonstrated Understanding Education Comments No comments found. Start/Stop Time OT Time Calculation OT Start Time: 0700 OT Stop Time: 0830 OT Time Calculation (min): 90 min Therapy Minutes: Occupational Therapy OT Individual: 90 * Brie Calvillo RN - 05/30/2024 3:00 AM EST Problem: Cognitive: Domínguez Job Fall Risk Goal: Last Known Fall Outcome: Progressing Goal: Mobility requiring assistance of person or device Outcome: Progressing Goal: Dizziness Outcome: Progressing Goal: Medications Outcome: Progressing Goal: Mental Status/LOC/Awareness Outcome: Progressing Goal: Toileting Needs Outcome: Progressing Goal: Volume and Electrolyte Status Outcome: Progressing Goal: Communication/Sensory Outcome: Progressing Goal: Behavior Outcome: Progressing Problem: Skin Integrity: Pressure Injury Actual or Risk of Goal: Will not develop new pressure injury Outcome: Progressing Goal: Skin integrity will improve Outcome: Progressing Goal: Risk for impaired skin integrity will decrease Outcome: Progressing Problem: Activity:Pressure Injury Actual or Risk of Goal: Mobility will improve Outcome: Progressing Problem: Nutritional:Pressure Injury Actual or Risk of Goal: Nutritional status will improve Outcome: Progressing Problem: Patient Specific Problem: Pressure Injury Actual or Risk of Goal: Patient Specific Outcome Outcome: Progressing Problem: Cognitive/Linguistics Goal: Patient will complete simple calculations for time/money management at 90% accuracy given Mauro Description: Goal Type: STG, Performance Level: Min assist Outcome: Progressing Goals: Clinical Goals for the Shift: To stay free from falls. Identify possible barriers to meeting goals/advancing plan of care: Pt working towards rehab goals. Stability of the patient: Moderately Unstable - Medium risk of patient condition declining or worsening End of Shift Summary: Pt is calm, appropriate and pleasant, denies pain, no signs of discomfort noted. Room safety maintained, call noriega in reach, bed alarm on, hourly and prn safety checks maintained. Pt appears to sleep well throughout the night. * Jorden Soto LCSW - 05/29/2024 1:43 PM EST Followed up with [facility]. Pt had appointment at 11am this morning and has not arrived back to rehab unit. Spoke to [place], patient is just now being seen at 1:44pm. [facility] office moved appointment to 1:30pm but unable to give reason why. Requested to speak to fundraising officer. Spoke to [facility] fundraising officer, appointment was cancelled on 05/20 by the patient. Informed Rich this verse writer received voicemail from Gladys TAO at [facility] on 05/[address] Reynoso did notwant to reschedule or cancel appointment and confirmed appointment was still scheduled for 05/29 at 11am. [place] plans to follow up. Confirmed with Marquis at [facility] express transportation (booked through [email or web address]). Transportation is on way to [place] pickup pt to return to rehab unit. * Penelope Bob RD - 05/29/2024 11:39 AM EST 05/29/2024 @ 11:39 AM EST Nutrition Follow Up Note Reason for RD Intervention: Assessment Type: Follow-up Reason for Assessment: High MST Score Anthropometrics: Height: 158 cm (62.21 ) Weight: 69.6 kg (153 lb 6.4 oz) Weight Method: Actual BMI (Calculated): 27.9 BMI Class: Overweight IBW (lbs): 110 Current Diet and Supplements: Dietary Orders (From admission, onward) Start Ordered 04/25/24 0812 Adult diet [facility]; Cardiac, Diabetic; 60 gm carb/Meal; Cardiac Diet effective now Question Answer Comment Location [facility] Diet Type (req) Cardiac Diet Type (req) Diabetic Diabetic 60 gm carb/Meal Diet Type (cardiac) Cardiac 04/25/24 0811 History of presenting illness: Patient is a 49 y.o. female with a history of Past Medical History: Diagnosis Date CVA (cerebral vascular accident) ([facility]) DM (diabetes mellitus) ([facility]) HTN (hypertension) History reviewed. No pertinent surgical history. admitted 04/19/2024 with No Principal Problem: There is no principal problem currently on the Problem List. Please update the Problem List and refresh.. Food/Nutrition History: Previously prescribed diets: Previous therapeutic diet (Comment) [...] medicationsat home as they were . Appetite PERSONAL CARER: Good Intake PERSONAL CARER: Stable Weight History: Wt Readings from Last 10 Encounters: 05/18/24 69.6 kg (153 lb 6.4 oz) Subjective Assessment: Pt seen for follow up- not in room during time of attempted visit. PO intake remains adequate- consuming 100% of meals per clinical documentation clerk. POCs well controlled. Noted tentative discharge home scheduled for 05/31. Pt provided with written and verbal diabetic, low sodium education during previous visit. She and her son have contact information of clinical nutrition department should they have nutritional questions after discharge. Nutrition-Related Lab Values: Results from last 7 days Lab Units 05/29/24 0720 05/27/24 0715 05/27/24 0543 SODIUM mmol/L -- -- 137 POTASSIUM mmol/L -- -- 4.3 MAGNESIUM mg/dL -- -- 1.8* CHLORIDE mmol/L -- -- 107 CO2 mmol/L -- -- 24 BUN mg/dL -- -- 15 CREATININE mg/dL -- -- 0.69 EGFR mL/min/1.73m2 -- -- 108 CALCIUM mg/dL -- -- 8.5 BILIRUBIN TOTAL mg/dL -- -- 0.3 ALK PHOS unit/L -- -- 76 ALT unit/L -- -- 20 AST unit/L -- -- 11 POCT GLUCOSE mg/dL 189* < > -- GLUCOSE mg/dL -- -- 180* < > = values in this interval not displayed. No results found for: LIPASE Medications: amLODIPine, 10 mg, oral, Daily aspirin, 81 mg, oral, Daily atorvastatin, 10 mg, oral, Nightly cholecalciferol, 2,000 Units, oral, Daily clopidogreL, 75 mg, oral, Daily cyanocobalamin, 1,000 mcg, oral, Daily enoxaparin, 40 mg, subcutaneous, q24h KATIE escitalopram, 5 mg, oral, Daily glipiZIDE, 5 mg, oral, q AM AC insulin lispro, 2-12 Units, subcutaneous, TID AC magnesium oxide, 400 mg, oral, BID metFORMIN, 500 mg, oral, BID with meals CONTINUOUS: PRN medications: acetaminophen, aluminum-magnesium hydroxide-simethicone, dextrose 50%, dextrose 50%, dextrose, dextrose, glucagon injection, hydrALAZINE, magnesium hydroxide, traMADoL Energy Needs: kcal, gm protein, mL fluid per day. Total Energy Estimated Needs: 2489-0465 kcal (20-25 kcal/kg actual weight), 70 g protein (1 g/kg actual weight), 5276-2874 mL (25-30 mL/kg actual weight) Height: 158 cm (62.21 ) Temp: 36.3 ??C (97.3 ??F) Food/Nutrition-Current Status: Intake Type: P.O. Appetite: Good Intake Amount (%): 75-100% Intake Assessment: Adequate Nutrition Focused Physical Findings: Overall Appearance: Unable to assess as pt in room with therapist with door closed Skin: No skin breakdown noted per wood tank erector Fluid Accumulation/Edema: Generalized (per clinical documentation clerk) Nutrition Diagnosis: Code Type: None Identified Status: Improvement Diagnosis: Altered Nutrition-Related Lab Values Etiology: Endocrine dysfunction Symptoms: POCs 92-280, A1C 12 Nutrition Interventions: Diet Order, Nutrition Education Nutrition Education: Low Sodium, Consistent Carb -Continue with diet as ordered. Meal preferences entered into [employer] -Pt and son previously provided with nutrition education re: low sodium, carbohydrate controlled diet. Provided with contact information of clinical nutrition department -Follow weights, labs, I/O, POCs Goals: Patient will consume greater than or equal to 75% meals., Monitor/control glucose levels, Maintain weight., Stooling appropriately., Maintain skin integrity., and Patient/family demonstrates understanding of diet education provided. Monitoring/Evaluation: Fluid/Beverage Intake, Food Intake, Weight, Diet Order Follow Up: Nutrition Priority Level: Low Please consult nutrition if needed sooner. RD remains available and will continue to follow. Signature: Penelope Bob RD * Elzbieta Peñahaim, PT - 05/29/2024 11:32 AM EST [facility] Physical Therapy Treatment Note 05/29/2024 Patient: Amalia Ann : 1975 Age: 49 y.o. Gender: female Primary Language: Barbadian Diagnosis: No Principal Problem: There is no principal problem currently on the Problem List. Please update the Problem List and refresh. Past Medical History: Diagnosis Date CVA (cerebral vascular accident) (CMS/HCC) DM (diabetes mellitus) (CMS/HCC) HTN (hypertension) History reviewed. No pertinent surgical history. Allergies: is allergic to lisinopril. Precautions: Medical Precautions: Fall Risk Safety Interventions: Call noriega within reach Swallow Precautions: (none) RUE Weight Bearing Status: Full LUE Weight Bearing Status: Full, As Tolerated RLE Weight Bearing Status: Full LLE Weight Bearing Status: Full NURSING RECOMMENDATIONS Bed Mobility: Transfers: Ambulation: SUBJECTIVE Pt report: It feels good Pain:0/10 OBJECTIVE General Observation: Seated in agreeable to participating in PT session, Aria present. Procedure/Treatment: Neuromuscular Reeducation: Balance/Neuromuscular Re-Education Neuromuscular Re-Education Time Entry: 95 Pt seated in agreeable to participating in therapy session. Pts significant other Aria present.Video automatic embroidery machine tender 200220 used for therapy session. Therapist attempting sneakers, Aria brought in sneakers for AFO, pt with increased pain on lateral aspect of foot. Pt having second pair present, no pain with donning shoe and AFO. Therapist educating to obtain sneakers with shoe laces with wider opening. Pt completed WC mobility down to therapy gym. Therapist and pt completed ambulation with SBQC, SUP-steadying assistance 2x30ft. Aria and pt ambulating 4x30ft with SBQC, pt and aria appropriately communicating for ambulation. Pt reporting AFO and shoe feel good, no increase in pain. Therapist and pt completed x12 stairs L ascending step to pattern, SUP-steadying assistance. Pt and Aria completed x3 FOS, Aria able to appropriately assist pt on stairs up 3 FOS. At this time, therapist confirming home set up, Aria verbalized there is a large [place] prior to x4 FOS to apartment, this verse writer was unaware of large [place], with no railings. Therapist demonstrating to pt how to bump pt in WC into and out of house, per Aria that would not work. Therapist and pt completed stand pivot transferfrom WC to chair on 6 inch platform to simulate threshold step, pt needing partial A for LOB posteriorly, steadying assistance for transfer, per Aria this method would not work. Therapist and pt completed x6 inch platform step with SBQC, partial A x1 ascending and descending. Aria able to assist pt up and down 6 inch threshold step with SBQC. Therapist and pt completed 8 inch threshold step with SBQC, partial A x1, ascending and descending. Therapist doffing AFO, performing skin check, skin in tact. Pt completed WC mobility back to room SUP approaching mod-I. PT left seated in WC, call noriega in reach, chair alarm on, all needs met. Aria to come in for additional training for threshold step8:30am 05/30/2024. Therapist providing hand out for SBQC, educated importance of obtaining SBQC for pt to be able to complete threshold step, Aria verbalized understanding. Therapist providing multiple locations for Aria to obtain SBQC. Education: Education Documentation Mobility Training, taught by Elzbieta Garcia PT at 05/29/2024 4:10 PM. Learner: Significant Other, Patient Readiness: Acceptance Method: Trench Trimmer Fine, Demonstration, Explanation Response: Demonstrated Understanding, Verbalizes Understanding Comment: DME planning, SBQC, stairs. Teach positioning to prevent injury, taught by Elzbieta Garcia PT at 05/29/2024 4:10 PM. Learner: Significant Other, Patient Readiness: Acceptance Method: Trench Trimmer Fine, Demonstration, Explanation Response: Demonstrated Understanding, Verbalizes Understanding Comment: DME planning, SBQC, stairs. Education Comments No comments found. ASSESSMENT Aria to come in for additional family training for threshold step 05/30/2024. Equipment: SBQC AFO 18 inch WC. Plan of Care Plan Treatment/Interventions: (As per IE) PT Plan: Skilled PT PT Frequency: 5-7 days per week PT Duration of Sessions: 60-90 min per session PT Treatments per day: 1-2 times per day Equipment Recommended: TBD Barriers to Discharge: home environment, medical condition PT - Evaluation Status: Complete Problems/Goals Goals: Encounter Problems Encounter Problems (Active) Template: Physical Therapy Problem: PT Membership Manager Goals Dates: Start: 04/20/24 Goal: mod I bed mobility Dates: Start: 04/20/24 Expected End: 05/11/24 Outcomes Date/Time User Outcome 05/20/24 1002 Elzbieta Garcia PT Progressing Goal: mod I transfers with LAD Dates: Start: 04/20/24 Expected End: 05/11/24 Outcomes Date/Time User Outcome 05/20/24 1002 Elzbieta Garcia PT Progressing Goal: mod I wc mobility 150' Dates: Start: 04/20/24 Expected End: 05/11/24 Outcomes Date/Time User Outcome 05/20/24 1002 Elzbieta Garcia PT Progressing Goal: up/dn 4 flights of stairs min A Dates: Start: 04/20/24 Expected End: 05/11/24 Outcomes Date/Time User Outcome 05/20/24 1002 Elzbieta Garcia PT Progressing Goal: Ambulate x50ft LRAD SUP Dates: Start: 05/20/24 Outcomes Date/Time User Outcome 05/20/24 1002 Elzbieta Garcia PT Progressing Encounter Problems (Resolved) Template: Physical Therapy Problem: PT Short Term Goals Dates: Start: 04/20/24 Resolved: 05/20/24 Goal: Pt will perform bed mobility min A (Resolved) Dates: Start: 04/20/24 Expected End: 04/27/24 Resolved: 05/17/24 Outcomes Date/Time User Outcome 05/17/24 1403 Elzbieta Garcia PT Completed Goal: Pt will transfer with min A (Resolved) Dates: Start: 04/20/24 Expected End: 04/27/24 Resolved: 05/20/24 Outcomes Date/Time User Outcome 05/20/24 1001 Elzbieta Garcia PT Completed Goal: Pt will ambulate 25' with LAD mod A (Resolved) Dates: Start: 04/20/24 Expected End: 04/27/24 Resolved: 05/20/24 Outcomes Date/Time User Outcome 05/20/24 1001 Elzbieta Garcia PT Completed Goal: Assess stairs as appropriate (Resolved) Dates: Start: 04/20/24 Expected End: 04/27/24 Resolved: 05/06/24 Outcomes Date/Time User Outcome 05/06/24 1038 Elzbieta Garcia PT Completed Goal: Supervision wc mobility and mgmt 150' (Resolved) Dates: Start: 04/20/24 Expected End: 04/27/24 Resolved: 05/06/24 Description: Outcomes Date/Time User Outcome 05/06/24 1038 Elzbieta Garcia PT Completed Session Start/Stop Time: 829 1005 Therapy Minutes Physical Therapy PT Individual: 95 * Neida Bailey DO - 05/29/2024 10:47 AM EST Images from the original note were not included. [facility] Daily Progress Note Patient name: Amalia Ann : 1975 SUBJECTIVE: Patient seen and examined at bedside today. No acute events overnight. Denies headaches, dizziness,shortness of breath, chest pain, nausea, constipation, and pain. No new concerns today. Participating in therapies: Pt completed 2x50ft of ambulation with SBQC, pt SUP- steadying assistance for ambulation. OBJECTIVE: Vitals: 05/28/24 1540 05/29/24 0556 05/29/24 0700 05/29/24 0809 BP: 136/84 (!) 142/80 (!) 143/80 139/89 BP Location: Left arm Right arm Right arm Patient Position: Lying Lying Pulse: 66 76 62 Resp: 16 16 Temp: 36.7 ??C (98.1 ??F) 36.8 ??C (98.2 ??F) TempSrc: Oral Oral SpO2: 100% 98% Weight: Height: Physical Examination: General: Alert, in no acute cardiopulmonary distress. Mental Status: Oriented to person, place and time. Normal affect. Head: Normocephalic. Eyes: Extraocular muscles grossly intact. Ear, Nose and Throat: Oropharynx clear, mucous membranes moist. Ears and nose without masses, lesions or deformities. Neck: Supple, Trachea midline. Respiratory: Clear to auscultation and percussion. No wheezing, rales or rhonchi. Cardiovascular: Heart sounds normal. No thrills. Regular rate and rhythm, no murmurs, rubs or gallops. Gastrointestinal: Abdomen soft, non-tender, non-distended. Normal bowel sounds. Neurologic: Cranial nerves II-XII grossly intact. Moves all extremities spontaneously. Sensation intact bilaterally. +left hemiparesis Skin: No rashes or lesions. No petechiae or purpura. No edema. Musculoskeletal: No cyanosis or clubbing. No gross deformities. Normal range of motion. Strength 4/5 left shoulder abduction, 4/5 left elbow flexion, 1/5 left wrist extension, 1/5 left finger flexion. Strength 4/5 left hip flexion and knee extension. Left dorsiflexion strength 1/5. CURRENT INPATIENT MEDICATIONS: Current Facility-Administered Medications: acetaminophen (TYLENOL) tablet 650 mg, 650 mg, oral, q6h PRN, BRAD Hicks, 650 mg at aluminum-magnesium hydroxide-simethicone (MAALOX) 200-200-20 mg/5 mL suspension 30 mL, 30 mL, oral,q4h PRN, BRAD Hicks, 30 mL at 05/06/24 0354 amLODIPine (NORVASC) tablet 10 mg, 10 mg, oral, Daily, BRAD Viramontes, 10 mg at 05/29/24 08 aspirin EC tablet 81 mg, 81 mg, oral, Daily, BRAD Hicks, 81 mg at 05/29/24808 atorvastatin (LIPITOR) tablet 10 mg, 10 mg, oral, Nightly, BRAD Viramontes, 10 mg at 05/28/242021 cholecalciferol (VITAMIN D-3) tablet 2,000 Units, 2,000 Units, oral, Daily, Leah Philippe NP, 2,000 Units at 05/29/24 08 clopidogreL (PLAVIX) tablet 75 mg, 75 mg, oral, Daily, BRAD Hicks, 75 mg at 05/29/24 08 cyanocobalamin (VITAMIN B-12) tablet 1,000 mcg, 1,000 mcg, oral, Daily, Leah Philippe NP, 1,000 mcg at 05/29/24 0810 dextrose (D50W) 50% injection 12.5 g, 12.5 g, intravenous, q15 min PRN, BRAD Hicks dextrose (D50W) 50% injection 25 g, 25 g, intravenous, q15 min PRN, BRAD Hicks dextrose 15 gram/60 mL oral solution 15 g, 15 g, oral, q15 min PRN, BRAD Hicks dextrose 15 gram/60 mL oral solution 30 g, 30 g, oral, q15 min PRN, BRAD Hicks enoxaparin (LOVENOX) injection 40 mg, 40 mg, subcutaneous, q24h KATIE, Leah Philippe NP, 40 mg at 05/29/24 0809 escitalopram (LEXAPRO) tablet 5 mg, 5 mg, oral, Daily, Neida Bailey, DO, 5 mg at 05/29/24 0810 glipiZIDE (GLUCOTROL) tablet 5 mg, 5 mg, oral, q AM AC, BRAD Viramontes, 5 mg at 05/29/24 0809 Glucagon HCl (rDNA) injection 1 mg, 1 mg, intramuscular, Once PRN, BRAD Hicks hydrALAZINE (APRESOLINE) tablet 10 mg, 10 mg, oral, TID PRN, BRAD Viramontes insulin lispro injection 2-12 Units, 2-12 Units, subcutaneous, TID AC, Neida Bailey, DO, 2 Units at 05/29/24 08 magnesium hydroxide (MILK OF MAGNESIA) 400 mg/5 mL suspension 30 mL, 30 mL, oral, Daily PRN, BRAD Rojas, 30 mL at 04/23/24 05 magnesium oxide (MAG-OX) tablet 400 mg, 400 mg, oral, BID, BRAD Viramontes, 400 mg at metFORMIN (GLUCOPHAGE) tablet 500 mg, 500 mg, oral, BID with meals, Leah Philippe NP, 500 mg at 05/29/24 08 traMADoL (ULTRAM) tablet 25 mg, 25 mg, oral, q6h PRN, Radhika Barber NP, 25 mg at 05/06/242031 LABS: Lab Results Component Value Date WBC 7.5 05/22/2024 RBC 4.10 05/22/2024 HGB 11.9 05/22/2024 HCT 36.3 05/22/2024 MCV 89.6 05/22/2024 MCHC 32.8 05/22/2024 RDW 13.1 05/22/2024 PLT 297 05/22/2024 MPV 11.9 (H) 05/22/2024 NRBC 0.0 05/22/2024 DIFF Lab Results Component Value Date LYMPHOPCT 10.4 05/06/2024 NEUTROABS 7.49 (H) 05/06/2024 LYMPHSABS 0.92 (L) 05/06/2024 MONOABS 0.33 05/06/2024 EOSABS 0.02 05/06/2024 BASOSABS 0.02 05/06/2024 IMMGRANABS 0.03 05/06/2024 RETIC No results found for: RETIC , RETICCTPCT Lab Results Component Value Date NA 137 05/27/2024 K 4.3 05/27/2024 CL 107 05/27/2024 CO2 24 05/27/2024 GLUCOSE 189 (H) 05/29/2024 BUN 15 05/27/2024 CREATININE 0.69 05/27/2024 CALCIUM 8.5 05/27/2024 PROT 6.3 05/27/2024 ALBUMIN 3.0 (L) 05/27/2024 BILITOT 0.3 05/27/2024 AST 11 05/27/2024 ALT 20 05/27/2024 MG 1.8 (L) 05/27/2024 ALKPHOS 76 05/27/2024 CKTOTAL 31 05/13/2024 EGFR 108 05/27/2024 IMPRESSION & PLAN: #Impaired mobility and self care -secondary to CVA -continue PT, OT, LOGISTICIAN, and nursing care #Acute anterior right pontine stroke #Left hemiparesis #Dysarthria -Aspirin 81mg daily -Plavix 75mg daily -Atorvastatin 80mg nightly discontinued on 05/17 due to weakness and concern for possible myopathy which is unlikely --> restarted Atorvastatin 10mg nightly on 05/24 -CT head 05/07/24 showed subtle hypoattenuation in the rightward srinivas correlating with an infarct demonstrated on the comparison MRI, no acute hemorrhage or other acute superimposed findings -CTA head/neck from [facility] showed moderate to severe intracranial atherosclerotic disease which likely puts her at risk for further CVAs -05/09 due to continued worsening weakness MRI brain ordered also reached out to Dr Reynoso at [facility] to inform of changes in neurostatus --> no response from Dr Reynoso, MRI brain 05/10 redemonstrated prior known infarcts without acute abnormality -continue therapies -left AFO received and will continue use -f/u Neurology 05/29/24 #Dysphagia -regular diet with thin liquids -continue LOGISTICIAN #Depression -Escitalopram 5mg daily started 05/24, continue #Hypertension -Lisinopril 10mg daily increased to 20mg daily on 04/25 --> discontinued 05/01 due to complaintsof itchiness to her throat -Amlodipine 5mg daily started 04/28 --> increased to 10mg daily on 05/24 #Diabetes mellitus type 2 -noncompliant with treatment prior to admission -continue diabetic education -will need glucometer and supplies on discharge -ISS -Lantus 22 units QHS decreased to 10 units QHS on 05/02 --> discontinued on 05/03 -Metformin 500mg BID started 04/28 -Glipizide 5mg daily started 05/03 #Hypomagnesemia -Magnesium oxide 400mg daily started 05/18 --> increased to 400mg BID on 05/22. -on 05/28 Mag 1.8 continue current regimen #Bladder management -UA 05/06 negative for UTI -UA 05/16 negative for UTI #Bowel management -Colace and Senna discontinued on 05/01 due to loose stools -monitor #DVT prophylaxis: Lovenox 40mg daily * Shayy Sanchez, MARIE - 05/29/2024 8:00 AM EST Speech Language Pathology Speech Language Pathology Treatment Subjective LOGISTICIAN Start Time: 0800 LOGISTICIAN Stop Time: 0835 LOGISTICIAN Time Calculation (min): 35 min Subjective: Agreeable to ST. president practicing urologist Alejandro #[id number] utilized. SO present for end of session. Objective General Visit Info General Family/Caregiver Present: Yes Treatment Cognitive Skills Therapeutic Interventions Cognitive Skills Direct Contact Time Entry: 35 Memory: Pt able to recall 2 dates from delayed recall task in previous session. Other Cognitive Skills Activity: With this verse writer, Pt generated central handout for all cognitive strategies, including memory, attention, and problem solving. Extensive review of each strategy and Pt able to generate examples of use of each at home given min verbal cues. Cognitive Skills Comments: Pt completed deductive reasoning HW with 90% accuracy indp. Memory: Sticky note, phone calendar and paper calendar for important dates and times Medication List Repetition/rehearsal Association - establishing connections between new and old information Be organized and have a daily routine List of physical therapy and occupational therapy recommendations Attention: Modify the environment to minimize or eliminate distractions Ask for clarification or extra time Problem solving: Understand tasks and directions Plan actions carefully and do not clarke with tasks Comments Comments: Plan for d/c assessment next session. Assessment/Plan LOGISTICIAN Assessment Evaluation/Treatment Tolerance: Patient tolerated treatment well Plan Treatment/Interventions: Cognitive linguistic functioning LOGISTICIAN Plan: Skilled LOGISTICIAN LOGISTICIAN Frequency: 5-7 days per week LOGISTICIAN Duration of Sessions: 30-60 min per session LOGISTICIAN Treatments per day: 1 time per day LOGISTICIAN - Next Appointment: 05/30/24 Goals Encounter Problems Encounter Problems (Active) Template: Speech Therapy Problem: Cognitive/Linguistics Dates: Start: 04/20/24 Goal: Patient will participate in further assessment of cognitive-linguistic skills (Resolved) Dates: Start: 04/20/24 Expected End: 05/04/24 Resolved: 05/01/24 Description: Goal Type: STG, Performance Level: Independent Outcomes Date/Time User Outcome 05/01/24 0920 Shayy Sanchez, LOGISTICIAN Completed Goal: Patient will identify and utilize problem-solving intervention for task completion at 90% accuracy given min A (Resolved) Dates: Start: 04/20/24 Expected End: 05/17/24 Resolved: 05/15/24 Description: Goal Type: STG, Performance Level: Min assist Outcomes Date/Time User Outcome 05/15/24 1515 Sherri Rendon, LOGISTICIAN Completed Goal: Patient will complete simple calculations for time/money management at 90% accuracy given Mauro Dates: Start: 04/20/24 Expected End: 05/31/24 Description: Goal Type: STG, Performance Level: Min assist Outcomes Date/Time User Outcome 05/26/24 0322 Brie Calvillo RN Progressing Goal: Pt will improve intelligibility at the sentence/conversational level to baseline given min A for speech strategies. (Resolved) Dates: Start: 04/21/24 Expected End: 04/28/24 Resolved: 04/26/24 Description: Outcomes Date/Time User Outcome 04/26/24 1127 MARIE Arroyo Completed Goal: Pt will improve delayed recall of functional information given min A for encoding and min A for retrieval - 90% accuracy (Resolved) Dates: Start: 04/22/24 Expected End: 05/17/24 Resolved: 05/15/24 Description: Outcomes Date/Time User Outcome 05/15/24 1522 MARIE Arroyo Completed Goal: Pt will complete basic to mod level auditory/visual attention tasks - 90% accuracy given mod A. (Resolved) Dates: Start: 04/23/24 Expected End: 05/07/24 Resolved: 05/10/24 Description: Outcomes Date/Time User Outcome 05/10/24 1139 MARIE Arroyo Completed Goal: Pt will participate in sequencing/direction following tasks related to functional/ADL tasks given min A- 90% accuracy. Dates: Start: 04/24/24 Expected End: 05/29/24 Description: Outcomes Date/Time User Outcome 05/28/24 1447 MARIE Shrestha Progressing Goal: Pt will improve intelligibility at the paragraph/conversational level to baseline and independent w/ use of strategies (Resolved) Dates: Start: 04/26/24 Expected End: 05/24/24 Resolved: 05/24/24 Description: Outcomes Date/Time User Outcome 05/24/24 1312 MARIE Arroyo Completed Goal: Pt will complete mod to higher level auditory/visual attention tasks - 90% accuracy given Mauro. (Resolved) Dates: Start: 05/10/24 Expected End: 05/17/24 Resolved: 05/15/24 Description: Outcomes Date/Time User Outcome 05/15/24 1521 MARIE Arroyo Completed Goal: Pt will improve complex attention for visual and/or auditory tasks to 90% accuracy indep. w/ use of strategies Dates: Start: 05/15/24 Expected End: 05/29/24 Description: Outcomes Date/Time User Outcome 05/29/24 0840 MARIE Shrestha Progressing Goal: Pt will improve delayed recall of functional information given min A for encoding and indep. for retrieval - 90% accuracy Dates: Start: 05/15/24 Expected End: 05/29/24 Description: Outcomes Date/Time User Outcome 05/29/24 0840 MARIE Shrestha Progressing Goal: Pt will improve higher level problem-solving/reasoning skills to 90% with min A. Dates: Start: 05/15/24 Expected End: 05/29/24 Description: Outcomes Date/Time User Outcome 05/27/24 1359 MARIE Shrestha Progressing Encounter Problems (Resolved) Template: Speech Therapy Problem: Swallowing Dates: Start: 04/20/24 Resolved: 04/23/24 Goal: Patient will tolerate the least restrictive diet consistency to allow for safe consumption ofdaily meals (Resolved) Dates: Start: 04/20/24 Expected End: 05/04/24 Resolved: 04/23/24 Description: Outcomes Date/Time User Outcome 04/23/24 1253 MARIE Shrestha Completed Goal: Patient will demonstrate safe swallowing Intervention/techniques (Resolved) Dates: Start: 04/20/24 Expected End: 05/04/24 Resolved: 04/23/24 Description: Outcomes Date/Time User Outcome 04/23/24 1253 MARIE Shrestha Completed Education Documentation Cognition, taught by MARIE Shrestha at 05/29/2024 8:00 AM. Learner: Patient Readiness: Eager Method: Explanation, Handout, Trench Trimmer Fine Response: Verbalizes Understanding, Demonstrated Understanding Comment: Central handout for memory, attention, problem solving strategies Education Comments No comments found. Associated attestation - Jen Duque SLP - 05/29/2024 3:52 PM EST I attest that I, Amber Duque M.S.,[facility]-LOGISTICIAN, was physically involved in the ongoing assessment, decision making, and interventions provided during today's patient care session. I have reviewed all documentation for today's 05/29/24, entered by Speech Therapy Fellow, Shayy Meyer, and further attest that it is an accurate clinical record of today's encounter, including accurate and appropriatecharges. * Joshua Tellez, OT - 05/29/2024 7:00 AM EST [facility] Occupational Therapy Treatment Note 05/29/24 Patient: Amalia Ann : 1975 Age: 49 y.o. Gender: female Diagnosis: No Principal Problem: There is no principal problem currently on the Problem List. Please update the Problem List and refresh. Primary Rehab (Etiologic) Diagnosis: Patient Active Problem List Diagnosis HTN (hypertension) DM (diabetes mellitus) (CMS/HCC) CVA (cerebral vascular accident) (CMS/HCC) PMH: Past Medical History: Diagnosis Date CVA (cerebral vascular accident) (CMS/HCC) DM (diabetes mellitus) (CMS/HCC) HTN (hypertension) PSH: History reviewed. No pertinent surgical history. Allergies: is allergic to lisinopril. Precautions: Precautions Medical Precautions: Fall Risk Safety Interventions: Call noriega within reach Swallow Precautions: (none) RUE Weight Bearing Status: Full LUE Weight Bearing Status: Full, As Tolerated RLE Weight Bearing Status: Full LLE Weight Bearing Status: Full Vitals: BP: (!) 143/80 Heart Rate: 62 Pain: None Subjective: I got the new shoes but I can get my left foot in. Procedures/Interventions: ADLs/IADLs Self Care/Home Management (ADLs) Time Entry: 60 Pt in elevated supine upon arrival, agreeable to participation. Vitals assessed, see above. Elevated supine>sit EOB mod I. SPT without UE support on bed rail, close S. From w/c pt retrieved clothing from closet mod I. Pt propelled self to bathroom mod I, and locked breaks approprietly in prep for txfer. SPT w/c><toilet with UE support on grab bar S. Toileting including clothing management and hygiene performed with S. Pt doffed LB clothing, and donned clean LB clothing with distant S while in stand. Pt donned R/L sock mod I. Pt attempting to don easy slip on shoe that SO purchased; assist to place AFO into shoe, pt unable to slide L foot into shoe despite increased time. Assist to get foot into shoe, once foot inside shoe, pt reporting pain on lateral ankle from AFO, shoe removedand lead qa analyst socks donned. Pt propelled self from room><ADL kitchen mod I to do laundry. STS to washing machine with S, with R UE support on top of washer. Pt tasked with reaching across midline with L UE to retreive and place clothing into top loading washer, verbal cues X2 for sustained L UE use. S for balance. Once back in room, pt ate breakfast with overall PETERSON for opening juice container. During breakfast pt able to recall 4/5 S/S of stroke, educated on remaining 2. Pt able to verbalize calling 911 if shewere to notice change in symptoms from current status. End of session pt seated in w/c with chair alarm on and call noriega in reach, awaiting LOGISTICIAN. OT Assessment OT Assessment OT Assessment Results: Decreased ADL status, Decreased upper extremity range of motion, Decreased upper extremity strength, Decreased safe judgment during ADL, Decreased fine motor control, Decreasedfunctional mobility, Decreased gross motor control, Decreased trunk control for functional activities Prognosis: Good Evaluation/Treatment Tolerance: Patient tolerated treatment well Comments: (Completed 60 min session with good tolerance, pt progressing toward mod I with self care, no assist for balance this date. Pt did appear unsteady with first txfer this morning, however no assist for balance.) OT Plan Plan Treatment Interventions: ADL retraining, Functional transfer training, Endurance training, UE strengthening/ROM, Equipment evaluation/education, Patient/family training, Fine motor coordination activities, Neuromuscular reeducation OT Plan: Skilled OT OT Frequency : 5-7 days per week OT Duration of Sessions: 60-90 min per session OT Treatments per day: 1 time per day OT - Evaluation Status: Complete Equipment Recommended: (TBD) Goals: Encounter Problems Encounter Problems (Active) Template: Occupational Therapy Problem: OT Membership Manager Goals Dates: Start: 04/20/24 Goal: Pt will be mod I with LB dressing Dates: Start: 04/20/24 Expected End: 05/18/24 Outcomes Date/Time User Outcome 05/12/24 1217 RICHIE Lucas Progressing Goal: Pt will be mod I with UB dressing Dates: Start: 04/20/24 Expected End: 05/18/24 Outcomes Date/Time User Outcome 05/12/247 RICHIE Lucas Progressing Goal: Pt will be S with bathing Dates: Start: 04/20/24 Expected End: 05/18/24 Outcomes Date/Time User Outcome 05/12/247 RICHIE Lucas Progressing Goal: Pt will be mod I with toileting including txfer Dates: Start: 04/20/24 Expected End: 05/18/24 Outcomes Date/Time User Outcome 05/12/247 RICHIE Lucas Progressing Goal: Pt will perform tub txfer with LRAD with S. Dates: Start: 04/20/24 Expected End: 05/18/24 Outcomes Date/Time User Outcome 05/12/241216 RICHIE Lucas Progressing Goal: Pt will be mod I with snack/beverage retrieval at LRAD Dates: Start: 04/20/24 Expected End: 05/18/24 Description: Outcomes Date/Time User Outcome 05/12/241216 RICHIE Lucas Progressing Problem: OT Short Term Goals Dates: Start: 05/15/24 Goal: Pt will perform toileting with steadying A with use of LRAD. Dates: Start: 05/15/24 Expected End: 05/22/24 Outcomes Date/Time User Outcome 05/23/24 Felipe Tellez OT Progressing Goal: Pt will perform LB dressing steadying A Dates: Start: 05/15/24 Expected End: 05/22/24 Outcomes Date/Time User Outcome 05/23/24 145Sita Tellez OT Progressing Goal: Pt will perform UB dressing with PETERSON Dates: Start: 05/15/24 Expected End: 05/22/24 Outcomes Date/Time User Outcome 05/23/24 Felipe Tellez OT Progressing Goal: Pt will perform bathing with Steadying A for balance. Dates: Start: 05/15/24 Expected End: 05/22/24 Outcomes Date/Time User Outcome 05/23/24 Felipe Tellez OT Progressing Goal: Pt will utilize L UE gross assist during oral hygiene tasks. Dates: Start: 05/15/24 Expected End: 05/22/24 Outcomes Date/Time User Outcome 05/23/24 Felipe Tellez OT Progressing Encounter Problems (Resolved) Template: Occupational Therapy Problem: OT Short Term Goals Dates: Start: 04/20/24 Resolved: 05/03/24 Goal: Pt will perform toileting with partial A (Resolved) Dates: Start: 04/20/24 Expected End: 04/27/24 Resolved: 05/03/24 Outcomes Date/Time User Outcome 05/03/24 Susan Gray OT Completed Goal: Pt will perform LB dressing with partial A (Resolved) Dates: Start: 04/20/24 Expected End: 04/27/24 Resolved: 05/03/24 Outcomes Date/Time User Outcome 05/03/24 Susan Gray OT Completed Goal: Pt will perform bathing with steadying A. (Resolved) Dates: Start: 04/20/24 Expected End: 04/27/24 Resolved: 05/03/24 Outcomes Date/Time User Outcome 05/03/24 Susan Gray OT Completed Goal: Pt will be able to utilize L UE as an independent stabilizer during grooming tasks (Resolved) Dates: Start: 04/20/24 Expected End: 04/27/24 Resolved: 05/03/24 Outcomes Date/Time User Outcome 05/03/24 Susan Gray OT Completed Goal: Pt will perform UB dressing with PETERSON, with carryover of tasha dressing technique (Resolved) Dates: Start: 04/20/24 Expected End: 04/27/24 Resolved: 05/03/24 Outcomes Date/Time User Outcome 05/03/24 Susan Gray OT Completed Education Documentation ADL Training, taught by Joshua Tellez OT at 05/29/2024 9:35 AM. Learner: Patient Readiness: Acceptance Method: Explanation, Demonstration Response: Demonstrated Understanding Skin Care/Pressure Ulcer Prevention, taught by Joshua Tellez OT at 05/29/2024 9:35 AM. Learner: Patient Readiness: Acceptance Method: Explanation, Demonstration Response: Demonstrated Understanding Teach positioning to prevent injury, taught by Joshua Tellez OT at 05/29/2024 9:35 AM. Learner: Patient Readiness: Acceptance Method: Explanation, Demonstration Response: Demonstrated Understanding Education Comments No comments found. Start/Stop Time OT Time Calculation OT Start Time: 0700 OT Stop Time: 0800 OT Time Calculation (min): 60 min Therapy Minutes: Occupational Therapy OT Individual: 60 * MARIE Shrestha - 05/28/2024 2:10 PM EST Speech Language Pathology Speech Language Pathology Treatment Subjective LOGISTICIAN Start Time: 1410 LOGISTICIAN Stop Time: 1445 LOGISTICIAN Time Calculation (min): 35 min Subjective: Cooperative and pleasant. president practicing urologist Mag #[id number] utilized. Objective General Visit Info General Family/Caregiver Present: No Treatment Cognitive Skills Therapeutic Interventions Cognitive Skills Direct Contact Time Entry: 35 Memory: Pt tasked with encoding mock doctor's appointment: set up for repetition/rehearsal strategy: immediate recall: 90% accuracy indp. After 10 min delay: 88% accuracy indp, increasing to 100% given multiple choice cues. Reasoning: Word deduction: ~80% accuracy indp, increasing to 90% accuracy with min verbal cues. Other Cognitive Skills Activity: Following multi step/ complex directions: 3 step, 6 component: 100% accuracy given extra time. Comments Comments: Family training planned for next session. Assessment/Plan LOGISTICIAN Assessment Evaluation/Treatment Tolerance: Patient tolerated treatment well Plan Treatment/Interventions: Cognitive linguistic functioning LOGISTICIAN Plan: Skilled LOGISTICIAN LOGISTICIAN Frequency: 5-7 days per week LOGISTICIAN Duration of Sessions: 30-60 min per session LOGISTICIAN Treatments per day: 1 time per day LOGISTICIAN - Next Appointment: 05/29/24 Goals Encounter Problems Encounter Problems (Active) Template: Speech Therapy Problem: Cognitive/Linguistics Dates: Start: 04/20/24 Goal: Patient will participate in further assessment of cognitive-linguistic skills (Resolved) Dates: Start: 04/20/24 Expected End: 05/04/24 Resolved: 05/01/24 Description: Goal Type: STG, Performance Level: Independent Outcomes Date/Time User Outcome 05/01/24 0920 MARIE Shrestha Completed Goal: Patient will identify and utilize problem-solving intervention for task completion at 90% accuracy given min A (Resolved) Dates: Start: 04/20/24 Expected End: 05/17/24 Resolved: 05/15/24 Description: Goal Type: STG, Performance Level: Min assist Outcomes Date/Time User Outcome 05/15/24 1515 MARIE Arroyo Completed Goal: Patient will complete simple calculations for time/money management at 90% accuracy given Mauro Dates: Start: 04/20/24 Expected End: 05/31/24 Description: Goal Type: STG, Performance Level: Min assist Outcomes Date/Time User Outcome 05/26/24 0322 Brie Calvillo RN Progressing Goal: Pt will improve intelligibility at the sentence/conversational level to baseline given min A for speech strategies. (Resolved) Dates: Start: 04/21/24 Expected End: 04/28/24 Resolved: 04/26/24 Description: Outcomes Date/Time User Outcome 04/26/24 1127 MARIE Arroyo Completed Goal: Pt will improve delayed recall of functional information given min A for encoding and min A for retrieval - 90% accuracy (Resolved) Dates: Start: 04/22/24 Expected End: 05/17/24 Resolved: 05/15/24 Description: Outcomes Date/Time User Outcome 05/15/24 1522 MARIE Arroyo Completed Goal: Pt will complete basic to mod level auditory/visual attention tasks - 90% accuracy given mod A. (Resolved) Dates: Start: 04/23/24 Expected End: 05/07/24 Resolved: 05/10/24 Description: Outcomes Date/Time User Outcome 05/10/24 1139 MARIE Arroyo Completed Goal: Pt will participate in sequencing/direction following tasks related to functional/ADL tasks given min A- 90% accuracy. Dates: Start: 04/24/24 Expected End: 05/29/24 Description: Outcomes Date/Time User Outcome 05/28/24 1447 MARIE Shrestha Progressing Goal: Pt will improve intelligibility at the paragraph/conversational level to baseline and independent w/ use of strategies (Resolved) Dates: Start: 04/26/24 Expected End: 05/24/24 Resolved: 05/24/24 Description: Outcomes Date/Time User Outcome 05/24/24 1312 MARIE Arroyo Completed Goal: Pt will complete mod to higher level auditory/visual attention tasks - 90% accuracy given Mauro. (Resolved) Dates: Start: 05/10/24 Expected End: 05/17/24 Resolved: 05/15/24 Description: Outcomes Date/Time User Outcome 05/15/24 1521 MARIE Arroyo Completed Goal: Pt will improve complex attention for visual and/or auditory tasks to 90% accuracy indep. w/ use of strategies Dates: Start: 05/15/24 Expected End: 05/29/24 Description: Outcomes Date/Time User Outcome 05/28/24 1447 MARIE Shrestha Progressing Goal: Pt will improve delayed recall of functional information given min A for encoding and indep. for retrieval - 90% accuracy Dates: Start: 05/15/24 Expected End: 05/29/24 Description: Outcomes Date/Time User Outcome 05/28/24 1447 MARIE Shrestha Progressing Goal: Pt will improve higher level problem-solving/reasoning skills to 90% with min A. Dates: Start: 05/15/24 Expected End: 05/29/24 Description: Outcomes Date/Time User Outcome 05/27/24 1359 MARIE Shrestha Progressing Encounter Problems (Resolved) Template: Speech Therapy Problem: Swallowing Dates: Start: 04/20/24 Resolved: 04/23/24 Goal: Patient will tolerate the least restrictive diet consistency to allow for safe consumption ofdaily meals (Resolved) Dates: Start: 04/20/24 Expected End: 05/04/24 Resolved: 04/23/24 Description: Outcomes Date/Time User Outcome 04/23/24 1253 MARIE Shrestha Completed Goal: Patient will demonstrate safe swallowing Intervention/techniques (Resolved) Dates: Start: 04/20/24 Expected End: 05/04/24 Resolved: 04/23/24 Description: Outcomes Date/Time User Outcome 04/23/24 1253 MARIE Shrestha Completed Education Documentation Cognition, taught by MARIE Shrestha at 05/28/2024 2:10 PM. Learner: Patient Readiness: Eager Method: Explanation, Trench Trimmer Fine Response: Verbalizes Understanding, Demonstrated Understanding Education Comments No comments found. Associated attestation - Jen Duque SLP - 05/28/2024 10:11 PM EST I attest that I, Amber Duque M.S.,[facility]-LOGISTICIAN, was physically involved in the ongoing assessment, decision making, and interventions provided during today's patient care session. I have reviewed all documentation for today's 05/28/24, entered by Speech Therapy Fellow, Shayy Meyer, and further attest that it is an accurate clinical record of today's encounter, including accurate and appropriatecharges. * BRAD Chaudhari - 05/28/2024 1:06 PM EST Images from the original note were not included. [facility] Daily Progress Note Patient name: Amalia Ann : 1975 SUBJECTIVE: Patient seen and examined at bedside today. No acute events overnight. Denies headaches, dizziness,shortness of breath, chest pain, nausea, constipation, and pain. Does report she has been grinding her teeth at night more than usual. She doesn't have a dentist inthe community. Will speak to social psychologist to see if we can provide her information on local dentists. OBJECTIVE: Vitals: 05/27/24 0713 05/27/24 1535 05/28/24 0426 05/28/24 0700 BP: (!) 145/71 (!) 151/72 (!) 149/71 134/72 BP Location: Right arm Left arm Right arm Right arm Patient Position: Lying Lying Lying Lying Pulse: 65 65 61 62 Resp: 16 16 Temp: 36.8 ??C (98.2 ??F) 36.9 ??C (98.4 ??F) 36.9 ??C (98.4 ??F) TempSrc: Oral Oral Oral SpO2: 99% 100% 99% Weight: Height: Physical Examination: General: Alert, in no acute cardiopulmonary distress. Mental Status: Oriented to person, place and time. Normal affect. Head: Normocephalic. Eyes: Extraocular muscles grossly intact. Ear, Nose and Throat: Oropharynx clear, mucous membranes moist. Ears and nose without masses, lesions or deformities. Neck: Supple, Trachea midline. Respiratory: Clear to auscultation and percussion. No wheezing, rales or rhonchi. Cardiovascular: Heart sounds normal. No thrills. Regular rate and rhythm, no murmurs, rubs or gallops. Gastrointestinal: Abdomen soft, non-tender, non-distended. Normal bowel sounds. Neurologic: Cranial nerves II-XII grossly intact. Moves all extremities spontaneously. Sensation intact bilaterally. +left hemiparesis Skin: No rashes or lesions. No petechiae or purpura. No edema. Musculoskeletal: No cyanosis or clubbing. No gross deformities. Normal range of motion. Strength 4/5 left shoulder abduction, 4/5 left elbow flexion, 1/5 left wrist extension, 1/5 left finger flexion. Strength 4/5 left hip flexion and knee extension. Left dorsiflexion strength 1/5. CURRENT INPATIENT MEDICATIONS: Current Facility-Administered Medications: acetaminophen (TYLENOL) tablet 650 mg, 650 mg, oral, q6h PRN, BRAD Hicks, 650 mg at aluminum-magnesium hydroxide-simethicone (MAALOX) 200-200-20 mg/5 mL suspension 30 mL, 30 mL, oral,q4h PRN, BRAD Hicks, 30 mL at 05/06/24 0354 amLODIPine (NORVASC) tablet 10 mg, 10 mg, oral, Daily, BRAD Viramontes, 10 mg at 05/28/24 0825 aspirin EC tablet 81 mg, 81 mg, oral, Daily, BRAD Hicks, 81 mg at 05/28/24 0825 atorvastatin (LIPITOR) tablet 10 mg, 10 mg, oral, Nightly, BRAD Viramontes, 10 mg at 05/27/24 2144 cholecalciferol (VITAMIN D-3) tablet 2,000 Units, 2,000 Units, oral, Daily, Leah Philippe NP, 2,000 Units at 05/28/24 08 clopidogreL (PLAVIX) tablet 75 mg, 75 mg, oral, Daily, BRAD Hicks, 75 mg at 05/28/24 0825 cyanocobalamin (VITAMIN B-12) tablet 1,000 mcg, 1,000 mcg, oral, Daily, Leah Philippe NP, 1,000 mcg at 05/28/24 0825 dextrose (D50W) 50% injection 12.5 g, 12.5 g, intravenous, q15 min PRN, BRAD Hicks dextrose (D50W) 50% injection 25 g, 25 g, intravenous, q15 min PRN, BRAD Hicks dextrose 15 gram/60 mL oral solution 15 g, 15 g, oral, q15 min PRN, BRAD Hicks dextrose 15 gram/60 mL oral solution 30 g, 30 g, oral, q15 min PRN, BRAD Hicks enoxaparin (LOVENOX) injection 40 mg, 40 mg, subcutaneous, q24h KATIE, Leah Philippe NP, 40 mg at 05/28/24824 escitalopram (LEXAPRO) tablet 5 mg, 5 mg, oral, Daily, Neida Bailey, DO, 5 mg at 05/28/24823 glipiZIDE (GLUCOTROL) tablet 5 mg, 5 mg, oral, q AM AC, BRAD Viramontes, 5 mg at 05/28/24823 Glucagon HCl (rDNA) injection 1 mg, 1 mg, intramuscular, Once PRN, BRAD Hicks hydrALAZINE (APRESOLINE) tablet 10 mg, 10 mg, oral, TID PRN, BRAD Viramontes insulin lispro injection 2-12 Units, 2-12 Units, subcutaneous, TID AC, Neida Bailey, DO, 2 Units at 05/27/24819 magnesium hydroxide (MILK OF MAGNESIA) 400 mg/5 mL suspension 30 mL, 30 mL, oral, Daily PRN, BRAD Rojas, 30 mL at 04/23/24 05 magnesium oxide (MAG-OX) tablet 400 mg, 400 mg, oral, BID, BRAD Viramontes, 400 mg at metFORMIN (GLUCOPHAGE) tablet 500 mg, 500 mg, oral, BID with meals, Leah Philippe NP, 500 mg at 05/28/24824 traMADoL (ULTRAM) tablet 25 mg, 25 mg, oral, q6h PRN, Radhika Barber NP, 25 mg at 05/06/242031 LABS: Lab Results Component Value Date WBC 7.5 05/22/2024 RBC 4.10 05/22/2024 HGB 11.9 05/22/2024 HCT 36.3 05/22/2024 MCV 89.6 05/22/2024 MCHC 32.8 05/22/2024 RDW 13.1 05/22/2024 PLT 297 05/22/2024 MPV 11.9 (H) 05/22/2024 NRBC 0.0 05/22/2024 DIFF Lab Results Component Value Date LYMPHOPCT 10.4 05/06/2024 NEUTROABS 7.49 (H) 05/06/2024 LYMPHSABS 0.92 (L) 05/06/2024 MONOABS 0.33 05/06/2024 EOSABS 0.02 05/06/2024 BASOSABS 0.02 05/06/2024 IMMGRANABS 0.03 05/06/2024 RETIC No results found for: RETIC , RETICCTPCT Lab Results Component Value Date NA 137 05/27/2024 K 4.3 05/27/2024 CL 107 05/27/2024 CO2 24 05/27/2024 GLUCOSE 147 (H) 05/28/2024 BUN 15 05/27/2024 CREATININE 0.69 05/27/2024 CALCIUM 8.5 05/27/2024 PROT 6.3 05/27/2024 ALBUMIN 3.0 (L) 05/27/2024 BILITOT 0.3 05/27/2024 AST 11 05/27/2024 ALT 20 05/27/2024 MG 1.8 (L) 05/27/2024 ALKPHOS 76 05/27/2024 CKTOTAL 31 05/13/2024 EGFR 108 05/27/2024 IMPRESSION & PLAN: #Impaired mobility and self care -secondary to CVA -continue PT, OT, LOGISTICIAN, and nursing care #Acute anterior right pontine stroke #Left hemiparesis #Dysarthria -Aspirin 81mg daily -Plavix 75mg daily -Atorvastatin 80mg nightly discontinued on 05/17 due to weakness and concern for possible myopathy which is unlikely --> restarted Atorvastatin 10mg nightly on 05/24 -CT head 05/07/24 showed subtle hypoattenuation in the rightward srinivas correlating with an infarct demonstrated on the comparison MRI, no acute hemorrhage or other acute superimposed findings -CTA head/neck from [facility] showed moderate to severe intracranial atherosclerotic disease which likely puts her at risk for further CVAs -05/09 due to continued worsening weakness MRI brain ordered also reached out to Dr Reynoso at [facility] Neurology to inform of changes in neurostatus --> no response from Dr Reynoso, MRI brain 05/10 redemonstrated prior known infarcts without acute abnormality -continue therapies -left AFO received and will continue use -f/u Neurology after discharge #Dysphagia -regular diet with thin liquids -continue LOGISTICIAN #Depression -Escitalopram 5mg daily started 05/24, continue #Hypertension -Lisinopril 10mg daily increased to 20mg daily on 04/25 --> discontinued 05/01 due to complaintsof itchiness to her throat -Amlodipine 5mg daily started 04/28 --> increased to 10mg daily on 05/24 #Diabetes mellitus type 2 -noncompliant with treatment prior to admission -continue diabetic education -will need glucometer and supplies on discharge -ISS -Lantus 22 units QHS decreased to 10 units QHS on 05/02 --> discontinued on 05/03 -Metformin 500mg BID started 04/28 -Glipizide 5mg daily started 05/03 #Hypomagnesemia -Magnesium oxide 400mg daily started 05/18 --> increased to 400mg BID on 05/22. 05/28 Mag 1.8 continue current regimen #Bladder management -UA 05/06 negative for UTI -UA 05/16 negative for UTI #Bowel management -Colace and Senna discontinued on 05/01 due to loose stools -monitor #DVT prophylaxis: Lovenox 40mg daily Associated attestation - Neida Bailey DO - 05/28/2024 9:15 PM EST Agree with progress note, assessment, and plan as documented by PA today. * Kaci Renteria RN - 05/28/2024 11:08 AM EST Goals: Clinical Goals for the Shift: To stay free from falls. Identify possible barriers to meeting goals/advancing plan of care: weakness,language barrier Stability of the patient: Moderately Stable - Low risk of patient condition declining or worsening End of Shift Summary: Pt fully participating and no lability noted. Pt had stated she noticed she was clenching her jaw more often last few days. She and this Rn spoke with PA, Arabella, and she did this at home at baseline to a lesser degree. PA to coordinate with residential case manager to get dental referral in community upon discharge. * Elzbieta Garcia, PT - 05/28/2024 10:47 AM EST [facility] Physical Therapy Treatment Note 05/28/2024 Patient: Amalia Ann : 1975 Age: 49 y.o. Gender: female Primary Language: Barbadian Diagnosis: No Principal Problem: There is no principal problem currently on the Problem List. Please update the Problem List and refresh. Past Medical History: Diagnosis Date CVA (cerebral vascular accident) ([facility]) DM (diabetes mellitus) ([facility]) HTN (hypertension) History reviewed. No pertinent surgical history. Allergies: is allergic to lisinopril. Precautions: Medical Precautions: Fall Risk Safety Interventions: Call noriega within reach Swallow Precautions: (none) RUE Weight Bearing Status: Full LUE Weight Bearing Status: Full, As Tolerated RLE Weight Bearing Status: Full LLE Weight Bearing Status: Full NURSING RECOMMENDATIONS Bed Mobility: Transfers: Ambulation: SUBJECTIVE Pt report: I know its important Pain:0/10 OBJECTIVE General Observation: Seated in WC agreeable to participating in therapy session. Procedure/Treatment: Neuromuscular Reeducation: Balance/Neuromuscular Re-Education Neuromuscular Re-Education Time Entry: 75 Pt seated in WC agreeable to participating in therapy session. Video automatic embroidery machine tender [id number] used for therapy session. Per [facility] insurance does not cover both WC and SBQC. Educated pt would need to obtain SBQC. Pt contacting [facility] to obtain SBQC prior to d/c to be able to ambulate into bathroomand to access shower and toilet. Educated if pt does not have SBQC prior to d/c pt will not be ableto shower or access toilet, recommending using 3-1 commode and WC level only d/t no SBQC. Pt verbalized understanding. Pt completed WC mobility down to therapy gym x150ft, SUP. Pt completed skin check on LLE, skin intact. Pt donning R sneaker, therapist assisting with L AFO and shoe. Per pt Aria purchased new sneakers for AFO. Pt completed 2x50ft of ambulation with SBQC, pt SUP-steadying assistance for ambulation. Pt wheeling over to stairs, appropriate use of brakes. Pt completed 2x12 stairs L ascending railing, steadying assistance. Seated rest breaks between FOS. Pt completed another FOS,on ascending portion, pt able to control lower onto step with use of L ascending railing and able to return to standing position steadying assistance. Pt completed x12 stairs L ascending rail, step to pattern, RUE on L ascending rail, steadying assistance. Pt doffing AFO and shoe pt completed skin check, blanchable redness on lateral aspect of malleolus. Pt donning lead qa analyst socks. Pt completed WC mobility back to room. Pt left seated in WC, call noriega in reach, chair alarm on, all needs met. Education: Education Documentation Activation of EMS (Call 911), taught by Elzbieta Garcia PT at 05/28/2024 10:56 AM. Learner: Patient Readiness: Acceptance Method: Trench Trimmer Fine Response: Verbalizes Understanding, Demonstrated Understanding Comment: stroke signs and symptoms Education Comments No comments found. ASSESSMENT Pt able to complete x4 FOS with L ascending rail and step to pattern. Pt able to perform skin checkpre and post donning and offing AFO. Equipment: AFO SBQC Wheelchair Plan of Care Plan Treatment/Interventions: (As per IE) PT Plan: Skilled PT PT Frequency: 5-7 days per week PT Duration of Sessions: 60-90 min per session PT Treatments per day: 1-2 times per day Equipment Recommended: TBD Barriers to Discharge: home environment, medical condition PT - Evaluation Status: Complete Problems/Goals Goals: Encounter Problems Encounter Problems (Active) Template: Physical Therapy Problem: PT Membership Manager Goals Dates: Start: 04/20/24 Goal: mod I bed mobility Dates: Start: 04/20/24 Expected End: 05/11/24 Outcomes Date/Time User Outcome 05/20/24 1002 Elzbieta Garcia PT Progressing Goal: mod I transfers with LAD Dates: Start: 04/20/24 Expected End: 05/11/24 Outcomes Date/Time User Outcome 05/20/24 1002 Elzbieta Garcia PT Progressing Goal: mod I wc mobility 150' Dates: Start: 04/20/24 Expected End: 05/11/24 Outcomes Date/Time User Outcome 05/20/24 1002 Elzbieta Garcia PT Progressing Goal: up/dn 4 flights of stairs min A Dates: Start: 04/20/24 Expected End: 05/11/24 Outcomes Date/Time User Outcome 05/20/24 1002 Elzbieta Garcia PT Progressing Goal: Ambulate x50ft LRAD SUP Dates: Start: 05/20/24 Outcomes Date/Time User Outcome 05/20/24 1002 Elzbieta Garcia PT Progressing Encounter Problems (Resolved) Template: Physical Therapy Problem: PT Short Term Goals Dates: Start: 04/20/24 Resolved: 05/20/24 Goal: Pt will perform bed mobility min A (Resolved) Dates: Start: 04/20/24 Expected End: 04/27/24 Resolved: 05/17/24 Outcomes Date/Time User Outcome 05/17/24 1403 Elzbieta Garcia PT Completed Goal: Pt will transfer with min A (Resolved) Dates: Start: 04/20/24 Expected End: 04/27/24 Resolved: 05/20/24 Outcomes Date/Time User Outcome 05/20/24 1001 Elzbieta Garcia PT Completed Goal: Pt will ambulate 25' with LAD mod A (Resolved) Dates: Start: 04/20/24 Expected End: 04/27/24 Resolved: 05/20/24 Outcomes Date/Time User Outcome 05/20/24 1001 Elzbieta Garcia PT Completed Goal: Assess stairs as appropriate (Resolved) Dates: Start: 04/20/24 Expected End: 04/27/24 Resolved: 05/06/24 Outcomes Date/Time User Outcome 05/06/24 1038 Elzbieta Garcia PT Completed Goal: Supervision wc mobility and mgmt 150' (Resolved) Dates: Start: 04/20/24 Expected End: 04/27/24 Resolved: 05/06/24 Description: Outcomes Date/Time User Outcome 05/06/24 1038 Elzbieta Garcia PT Completed Session Start/Stop Time: 1015 1130 Therapy Minutes Physical Therapy PT Individual: 75 * Joshua Tellez, OT - 05/28/2024 7:00 AM EST [facility] Occupational Therapy Treatment Note 05/28/24 Patient: Amalia Ann : 1975 Age: 49 y.o. Gender: female Diagnosis: No Principal Problem: There is no principal problem currently on the Problem List. Please update the Problem List and refresh. Primary Rehab (Etiologic) Diagnosis: Patient Active Problem List Diagnosis HTN (hypertension) DM (diabetes mellitus) (CMS/HCC) CVA (cerebral vascular accident) ([facility]/H[facility]) PMH: Past Medical History: Diagnosis Date CVA (cerebral vascular accident) (CMS/HCC) DM (diabetes mellitus) ([facility]) HTN (hypertension) PSH: History reviewed. No pertinent surgical history. Allergies: is allergic to lisinopril. Precautions: Precautions Medical Precautions: Fall Risk Safety Interventions: Call noriega within reach Swallow Precautions: (none) RUE Weight Bearing Status: Full LUE Weight Bearing Status: Full, As Tolerated RLE Weight Bearing Status: Full LLE Weight Bearing Status: Full Vitals: BP: 134/72 Heart Rate: 62 Pain: None Subjective: I just want to brush my teeth. Procedures/Interventions: ADLs/IADLs Self Care/Home Management (ADLs) Time Entry: 15 Pt in elevated supine upon arrival, agreeable to participation. [place]adian><[place] Islander video automatic embroidery machine tender utilized throughout session. Vitals assessed, see above. Elevated supine>sit EOB with mod I. SPT bed>w/c with R UE on bed rail, S. Pt performed oral hygiene w/c level at sink with clean upassist, pt utilizing L UE as gross assist. Pt politely declining to bathe or change clothing at this time. In figure four position, pt donned L AFO and shoe (assist to tie), pt donned R shoe with eleastic laces with mod I. Pt reporting that Page is bringing the new pair of shoes tomorrow. Therapeutic Activity Therapeutic Activity Time Entry: 75 Pt propelled self from room >< gym with mod I. Pt engaged in there act to target functional amb, dynamic balance, reaching outside IRIS with L UE, and dual tasking. Pt performed functional amb around the gym with SBQC to retreive socks from various heights (waist to knee), with L UE, with focus on maneuvering obstacles, and setting self up for safe reaching. Steadying-partial A throughout task. Pt educated on setting self up to allow proper IRIS, prior to reaching, to decrease fall risk. Cues occasionally for not catching L toes on chair legs. Pt took 1 seated rest break. Pt dropped socksX3, educated on leaving on floor and not attempting to pick them up. Once all collected, socks spread out on table top. In stand, pt tasked with retrieving each sock with L UE, folding, and then placing folded sock into bag anteriorly, with focus on elbow extension/shoulder flexion. Pt took 2 seated rest breaks throughout task. Verbal cues for equal weight bearing through B LEs and for increasing IRIS. Steadying A for balance during task. Pt engaged in task to target force grading and tip pinch with L UE. Pt tasked with grasping marbleswith tip pinch and placing into small holes on peg mat, with focus on force grading and pacing. Pt able to place marbles X mass reps, however, pt placing on mat from L>R, thus pt occasionally knocking marble off mat when placing in additional rows. Task down graded to increase success mat turnedaround to allow pt to place marbles without knocking adjacent ones off. Pt knocked marbles off X several trials, occasional A to retreive from floor. Pt provided with a plastic cup and multiple blocks for L hand HEP to complete in down time from therapy. Pt provided visual demo of exercise to perform including; grasp, transport, and release, and stacking blocks. Once back in room pt doffed footwear including AFO with clean up A. Seated in w/c with chair alarm on, call noriega in reach, and RN present. Pt provided with breakfast. OT Assessment OT Assessment OT Assessment Results: Decreased ADL status, Decreased upper extremity range of motion, Decreased upper extremity strength, Decreased safe judgment during ADL, Decreased fine motor control, Decreasedfunctional mobility, Decreased gross motor control, Decreased trunk control for functional activities Prognosis: Good Evaluation/Treatment Tolerance: Patient tolerated treatment well Comments: (Completed 90 min session with good tolerance. Pt required increased level of physical assist for ambulation with dual task component. Ongoing improvement in L UE strength and AROM.) OT Plan Plan Treatment Interventions: ADL retraining, Functional transfer training, Endurance training, UE strengthening/ROM, Equipment evaluation/education, Patient/family training, Fine motor coordination activities, Neuromuscular reeducation OT Plan: Skilled OT OT Frequency : 5-7 days per week OT Duration of Sessions: 60-90 min per session OT Treatments per day: 1 time per day OT - Evaluation Status: Complete Equipment Recommended: (TBD) Goals: Encounter Problems Encounter Problems (Active) Template: Occupational Therapy Problem: OT Chcf Goals Dates: Start: 04/20/24 Goal: Pt will be mod I with LB dressing Dates: Start: 04/20/24 Expected End: 05/18/24 Outcomes Date/Time User Outcome 05/12/241216 RICHIE Lucas Progressing Goal: Pt will be mod I with UB dressing Dates: Start: 04/20/24 Expected End: 05/18/24 Outcomes Date/Time User Outcome 05/12/247 RICHIE Lucas Progressing Goal: Pt will be S with bathing Dates: Start: 04/20/24 Expected End: 05/18/24 Outcomes Date/Time User Outcome 05/12/247 RICHIE Lucas Progressing Goal: Pt will be mod I with toileting including txfer Dates: Start: 04/20/24 Expected End: 05/18/24 Outcomes Date/Time User Outcome 05/12/247 RICHIE Lucas Progressing Goal: Pt will perform tub txfer with LRAD with S. Dates: Start: 04/20/24 Expected End: 05/18/24 Outcomes Date/Time User Outcome 05/12/247 RICHIE Lucas Progressing Goal: Pt will be mod I with snack/beverage retrieval at LRAD Dates: Start: 04/20/24 Expected End: 05/18/24 Description: Outcomes Date/Time User Outcome 05/12/241216 RICHIE Lucas Progressing Problem: OT Short Term Goals Dates: Start: 05/15/24 Goal: Pt will perform toileting with steadying A with use of LRAD. Dates: Start: 05/15/24 Expected End: 05/22/24 Outcomes Date/Time User Outcome 05/23/24 1452 Joshua Tellez OT Progressing Goal: Pt will perform LB dressing steadying A Dates: Start: 05/15/24 Expected End: 05/22/24 Outcomes Date/Time User Outcome 05/23/24 Felipe Tellez OT Progressing Goal: Pt will perform UB dressing with PETERSON Dates: Start: 05/15/24 Expected End: 05/22/24 Outcomes Date/Time User Outcome 05/23/24 Felipe Tellez OT Progressing Goal: Pt will perform bathing with Steadying A for balance. Dates: Start: 05/15/24 Expected End: 05/22/24 Outcomes Date/Time User Outcome 05/23/24 Felipe Tellez OT Progressing Goal: Pt will utilize L UE gross assist during oral hygiene tasks. Dates: Start: 05/15/24 Expected End: 05/22/24 Outcomes Date/Time User Outcome 05/23/24 Felipe Tellez OT Progressing Encounter Problems (Resolved) Template: Occupational Therapy Problem: OT Short Term Goals Dates: Start: 04/20/24 Resolved: 05/03/24 Goal: Pt will perform toileting with partial A (Resolved) Dates: Start: 04/20/24 Expected End: 04/27/24 Resolved: 05/03/24 Outcomes Date/Time User Outcome 05/03/24 Susan Gray OT Completed Goal: Pt will perform LB dressing with partial A (Resolved) Dates: Start: 04/20/24 Expected End: 04/27/24 Resolved: 05/03/24 Outcomes Date/Time User Outcome 05/03/24 Susan Gray OT Completed Goal: Pt will perform bathing with steadying A. (Resolved) Dates: Start: 04/20/24 Expected End: 04/27/24 Resolved: 05/03/24 Outcomes Date/Time User Outcome 05/03/24 Susan Gary OT Completed Goal: Pt will be able to utilize L UE as an independent stabilizer during grooming tasks (Resolved) Dates: Start: 04/20/24 Expected End: 04/27/24 Resolved: 05/03/24 Outcomes Date/Time User Outcome 05/03/24 140Angie Gray OT Completed Goal: Pt will perform UB dressing with PETERSON, with carryover of tasha dressing technique (Resolved) Dates: Start: 04/20/24 Expected End: 04/27/24 Resolved: 05/03/24 Outcomes Date/Time User Outcome 05/03/24 1407 Albina Gray, OT Completed Education Documentation Home Exercise Program, taught by Joshua Tellez OT at 05/28/2024 8:39 AM. Learner: Patient Readiness: Acceptance Method: Demonstration, Trench Trimmer Fine, Explanation Response: Demonstrated Understanding, Verbalizes Understanding Teach positioning to prevent injury, taught by Joshua Tellez OT at 05/28/2024 8:39 AM. Learner: Patient Readiness: Acceptance Method: Demonstration, Trench Trimmer Fine, Explanation Response: Demonstrated Understanding, Verbalizes Understanding Education Comments No comments found. Start/Stop Time OT Time Calculation OT Start Time: 699 OT Stop Time: 829 OT Time Calculation (min): 90 min Therapy Minutes: Occupational Therapy OT Individual: 90 * Elzbieta Garcia, PT - 05/27/2024 3:41 PM EST Images from the original note were not included. [facility] [address] [place] [id number] Dept: [phone] Patient: Amalia Ann : 1975 Age: 49 y.o. Gender: female Room Number: 406/[id number] Diagnosis: No Principal Problem: There is no principal problem currently on the Problem List. Please update the Problem List and refresh. ICD-10-CM ICD-9-CM 1. Stroke (CMS/HCC) [I63.9] I63.9 434.91 Past Medical History: Diagnosis Date CVA (cerebral vascular accident) (CMS/HCC) DM (diabetes mellitus) (CMS/[facility]) HTN (hypertension) History reviewed. No pertinent surgical history. Allergies: is allergic to lisinopril. Precautions: Medical Precautions: Fall Risk Safety Interventions: Call noriega within reach Swallow Precautions: (none) RUE Weight Bearing Status: Full LUE Weight Bearing Status: Full, As Tolerated RLE Weight Bearing Status: Full LLE Weight Bearing Status: Full Patient presenting to IRF s/p CVA . Patient to benefit from use of wheelchair upon discharge from this level of care to navigate household distances and complete ADLs upon discharge from this level of care. Patient is unable to safely ambulate household distances with no device, axillary crutches, single point cane, quad cane, rolling walker or rollator independently due to dynamic gait and balance deficits. Patient to benefit from 18 inch wide and tasha-height wheelchair, with elevating leg rests, removable arm rests , and anti-tippers and gel foam cushion. Patient to benefit from Small based quad cane to be able to access bathroom, which is wheelchair inaccessible. Pt to ambulate with physical assistance into and out of bathroom with use of small basedquad cane. * Jorden Soto LCSW - 05/27/2024 1:17 PM EST Team Meeting: Met with pt at bedside to review post team recommendations. Utilized Manager Parking #[id number]. Pt is steadying-supv ADLS. Pt will discharge home wheel chair level on Wednesday 05/31. Pt will dischargehome with VNA for RN PT and OT. Wheel Chair Van booked with [employer] for 05/31 at noon. Significant other will be at home waiting for pt. Family training completed today. Family again on Monday 05/29. Pt aware of Neurology appointment on Monday, sampler pickup 10:15am Medications will be filled at [facility] prior to DC. Pt had no questions or concerns at this time. Pt looking forward to discharge. [facility], awaiting SOC date. * Shayy Sanchez, LOGISTICIAN - 05/27/2024 1:00 PM EST Speech Language Pathology Speech Language Pathology Treatment Subjective LOGISTICIAN Start Time: 1300 LOGISTICIAN Stop Time: 1345 LOGISTICIAN Time Calculation (min): 45 min Subjective: president practicing urologist Jaime #[id number] and Aria #[id number] utilized. Cooperative and pleasant. Objective General Visit Info General Family/Caregiver Present: No Treatment Cognitive Skills Therapeutic Interventions Cognitive Skills Direct Contact Time Entry: 45 Memory: Provided Pt with s/s of stroke in Barbadian - RAPIDO for home use. Problem Solving: Pt tasked with generating energy conservation strategies for various household scenarios: Pt able to state what is energy conservation and importance for home with min verbal cues, indp recalled 'sitting on the stairs' per PT recs during caregiver training, emphasized importance ofplanning daily/weekly tasks and prioritizing tasks based on difficulty. Pt recalled PT rec for assist with partner to walk to bathroom, otherwise wc level if alone. Discussed other energy conservation strategies such as taking frequent breaks, keeping items at lower level, assist with partner for meal prep, slow movement rate for walking and stairs. Attention/Concentration: Pt presented with articles of interest and wh- f/u questions: 55% accuracyindp, increasing to 82% accuracy given min verbal cues/multiple choice cues. Assessment/Plan LOGISTICIAN Assessment Evaluation/Treatment Tolerance: Patient tolerated treatment well Plan Treatment/Interventions: Cognitive linguistic functioning LOGISTICIAN Plan: Skilled LOGISTICIAN LOGISTICIAN Frequency: 5-7 days per week LOGISTICIAN Duration of Sessions: 30-60 min per session LOGISTICIAN Treatments per day: 1 time per day LOGISTICIAN - Next Appointment: 05/28/24 Goals Encounter Problems Encounter Problems (Active) Template: Speech Therapy Problem: Cognitive/Linguistics Dates: Start: 04/20/24 Goal: Patient will participate in further assessment of cognitive-linguistic skills (Resolved) Dates: Start: 04/20/24 Expected End: 05/04/24 Resolved: 05/01/24 Description: Goal Type: STG, Performance Level: Independent Outcomes Date/Time User Outcome 05/01/24 0920 Shayy Sanchez, LOGISTICIAN Completed Goal: Patient will identify and utilize problem-solving intervention for task completion at 90% accuracy given min A (Resolved) Dates: Start: 04/20/24 Expected End: 05/17/24 Resolved: 05/15/24 Description: Goal Type: STG, Performance Level: Min assist Outcomes Date/Time User Outcome 05/15/24 1515 Sherri Rendon, LOGISTICIAN Completed Goal: Patient will complete simple calculations for time/money management at 90% accuracy given Mauro Dates: Start: 04/20/24 Expected End: 05/31/24 Description: Goal Type: STG, Performance Level: Min assist Outcomes Date/Time User Outcome 05/26/24 0322 Brie Calvillo RN Progressing Goal: Pt will improve intelligibility at the sentence/conversational level to baseline given min A for speech strategies. (Resolved) Dates: Start: 04/21/24 Expected End: 04/28/24 Resolved: 04/26/24 Description: Outcomes Date/Time User Outcome 04/26/24 1127 MARIE Arroyo Completed Goal: Pt will improve delayed recall of functional information given min A for encoding and min A for retrieval - 90% accuracy (Resolved) Dates: Start: 04/22/24 Expected End: 05/17/24 Resolved: 05/15/24 Description: Outcomes Date/Time User Outcome 05/15/24 1522 MARIE Arroyo Completed Goal: Pt will complete basic to mod level auditory/visual attention tasks - 90% accuracy given mod A. (Resolved) Dates: Start: 04/23/24 Expected End: 05/07/24 Resolved: 05/10/24 Description: Outcomes Date/Time User Outcome 05/10/24 1139 MARIE Arroyo Completed Goal: Pt will participate in sequencing/direction following tasks related to functional/ADL tasks given min A- 90% accuracy. Dates: Start: 04/24/24 Expected End: 05/29/24 Description: Outcomes Date/Time User Outcome 05/23/24 1457 MARIE Arroyo Not Progressing Goal: Pt will improve intelligibility at the paragraph/conversational level to baseline and independent w/ use of strategies (Resolved) Dates: Start: 04/26/24 Expected End: 05/24/24 Resolved: 05/24/24 Description: Outcomes Date/Time User Outcome 05/24/24 1312 MARIE Arroyo Completed Goal: Pt will complete mod to higher level auditory/visual attention tasks - 90% accuracy given Mauro. (Resolved) Dates: Start: 05/10/24 Expected End: 05/17/24 Resolved: 05/15/24 Description: Outcomes Date/Time User Outcome 05/15/24 1521 MARIE Arroyo Completed Goal: Pt will improve complex attention for visual and/or auditory tasks to 90% accuracy indep. w/ use of strategies Dates: Start: 05/15/24 Expected End: 05/29/24 Description: Outcomes Date/Time User Outcome 05/27/24 135MARIE Mejia Not Progressing Goal: Pt will improve delayed recall of functional information given min A for encoding and indep. for retrieval - 90% accuracy Dates: Start: 05/15/24 Expected End: 05/29/24 Description: Outcomes Date/Time User Outcome 05/27/24 1359 MARIE Shrestha Progressing Goal: Pt will improve higher level problem-solving/reasoning skills to 90% with min A. Dates: Start: 05/15/24 Expected End: 05/29/24 Description: Outcomes Date/Time User Outcome 05/27/24 1359 MARIE Shrestha Progressing Encounter Problems (Resolved) Template: Speech Therapy Problem: Swallowing Dates: Start: 04/20/24 Resolved: 04/23/24 Goal: Patient will tolerate the least restrictive diet consistency to allow for safe consumption ofdaily meals (Resolved) Dates: Start: 04/20/24 Expected End: 05/04/24 Resolved: 04/23/24 Description: Outcomes Date/Time User Outcome 04/23/24 1253 MARIE Shrestha Completed Goal: Patient will demonstrate safe swallowing Intervention/techniques (Resolved) Dates: Start: 04/20/24 Expected End: 05/04/24 Resolved: 04/23/24 Description: Outcomes Date/Time User Outcome 04/23/24 1253 MARIE Shrestha Completed Education Documentation Cognition, taught by MARIE Shrestha at 05/27/2024 1:00 PM. Learner: Patient Readiness: Eager Method: Explanation, Trench Trimmer Fine Response: Verbalizes Understanding, Demonstrated Understanding Comment: energy conservation strategies, auditory attention strategies Education Comments No comments found. Associated attestation - Jen Duque SLP - 05/27/2024 2:13 PM EST I attest that I, Amber Duque M.S.,[facility]-LOGISTICIAN, was physically involved in the ongoing assessment, decision making, and interventions provided during today's patient care session. I have reviewed all documentation for today's 05/27/24, entered by Speech Therapy Fellow, Shayy Meyer, and further attest that it is an accurate clinical record of today's encounter, including accurate and appropriatecharges. * Kaci Renteria RN - 05/27/2024 12:00 PM EST Goals: Clinical Goals for the Shift: To stay free from falls. Identify possible barriers to meeting goals/advancing plan of care: language barrier, past history of ko Stability of the patient: Moderately Stable - Low risk of patient condition declining or worsening End of Shift Summary: Pt smiling and stating positivity toward her success in therapies, safety aware and adherent to all recommendations, pt wearing supportive shoe during therapy. Thinks her higheram BG was due to birthday cake yesterday. * Elzbieta Garcia, PT - 05/27/2024 11:23 AM EST [facility] Physical Therapy Treatment Note 05/27/2024 Patient: Amalia Ann : 1975 Age: 49 y.o. Gender: female Primary Language: Barbadian Diagnosis: No Principal Problem: There is no principal problem currently on the Problem List. Please update the Problem List and refresh. Past Medical History: Diagnosis Date CVA (cerebral vascular accident) ([facility]/HCC) DM (diabetes mellitus) ([facility]) HTN (hypertension) History reviewed. No pertinent surgical history. Allergies: is allergic to lisinopril. Precautions: Medical Precautions: Fall Risk Safety Interventions: Call noriega within reach Swallow Precautions: (none) RUE Weight Bearing Status: Full LUE Weight Bearing Status: Full, As Tolerated RLE Weight Bearing Status: Full LLE Weight Bearing Status: Full SUBJECTIVE Pt report: Thank you Pain:0/10 OBJECTIVE General Observation: Seated in WC agreeable to participating in therapy session. Procedure/Treatment: Neuromuscular Reeducation: Balance/Neuromuscular Re-Education Neuromuscular Re-Education Time Entry: 75 Patient in Wheelchair agreeable to participating in therapy session. Video automatic embroidery machine tender [id number] used for therapy session. Aria present for family training. Education provided that if pt is alone at home, pt to be WC level. Education provided pt needing assistance with ambulation to access bathroom with AFO donned and SBQC. Pt completed WC mobility down to therapy gym, AFO donned prior to this writers arrival. Therapist providing education on how to assist pt with ambulation, recommending use of SBQC. Pt needing steadying assistance for ambulation 2x30ft. Aria and pt ambulating, Aria with appropriate assistance, pt with anterior LOB, Aria able to assist in anterior LOB and continue ambulati ng, therapist providing SUP with ambulation. Therapist educating pt and Aria to communicate with ambulation d/t balance deficits. Aria and pt ambulating 4x30ft of ambulation, appropriate level of assistance provided. Therapist and pt completed x12 stairs, x4 stairs per Aria, pt has hand rail L ascending rail, pt completed stairs step to pattern, pt side stepping up the stairs, pt descending steps forwards, pt needing steadying assistance. Therapist educating for split stance standing to improve safety of Aria up and down stairs, while assisting pt. Education provided on having x2 chairs available to have pt take seated rest breaks to move chair to next platform. Aria and pt verbalized u nderstanding. Pt and Aria completed x2 FOS with seated rest break in between, Aria able to provide appropriate assistance, Aria initially needing cues, progressed to no cues. Therapist educating for slow pacing on stairs for energy conservation, and balance. Per Aria requesting additional therapy for stairs and ambulation, scheduled Monday at 8:30 am. Per Aria he will purchase shoes prior to Monday training. Therapist doffing AFO, education on skin checks, and wear schedule.Pt completed WC mobility back to room. Pt setting up WC, for transfer, pt SUP for stand pivot transfer. Pt completed bed mobility SUP. Pt left supine in bed, call noriega in reach, bed alarm on, all needs met, no further questions. Education: Education Documentation Mobility Training, taught by Elzbieta Garcia PT at 05/27/2024 12:34 PM. Learner: Significant Other, Patient Readiness: Acceptance Method: Demonstration, Explanation Response: Verbalizes Understanding, Demonstrated Understanding Comment: stroke signs and symptoms, d/c recommendations, stair training Personal Risk Factors for Stroke, taught by Elzbieta Garcia PT at 05/27/2024 12:34 PM. Learner: Significant Other, Patient Readiness: Acceptance Method: Demonstration, Explanation Response: Verbalizes Understanding, Demonstrated Understanding Comment: stroke signs and symptoms, d/c recommendations, stair training Activation of EMS (Call 911), taught by Elzbieta Garcia PT at 05/27/2024 12:34 PM. Learner: Significant Other, Patient Readiness: Acceptance Method: Demonstration, Explanation Response: Verbalizes Understanding, Demonstrated Understanding Comment: stroke signs and symptoms, d/c recommendations, stair training Teach positioning to prevent injury, taught by Elzbieta Garcia PT at 05/27/2024 12:34 PM. Learner: Significant Other, Patient Readiness: Acceptance Method: Demonstration, Explanation Response: Verbalizes Understanding, Demonstrated Understanding Comment: stroke signs and symptoms, d/c recommendations, stair training Education Comments No comments found. ASSESSMENT Aria able to provide appropriate assistance on stairs, continued family training for stairs and ambulation. Equipment: TBD Plan of Care Plan Treatment/Interventions: (As per IE) PT Plan: Skilled PT PT Frequency: 5-7 days per week PT Duration of Sessions: 60-90 min per session PT Treatments per day: 1-2 times per day Equipment Recommended: TBD Barriers to Discharge: home environment, medical condition PT - Evaluation Status: Complete Problems/Goals Goals: Encounter Problems Encounter Problems (Active) Template: Physical Therapy Problem: PT Membership Manager Goals Dates: Start: 04/20/24 Goal: mod I bed mobility Dates: Start: 04/20/24 Expected End: 05/11/24 Outcomes Date/Time User Outcome 05/20/24 1002 Elzbieta Garcia PT Progressing Goal: mod I transfers with LAD Dates: Start: 04/20/24 Expected End: 05/11/24 Outcomes Date/Time User Outcome 05/20/24 1002 Elzbieta Garcia PT Progressing Goal: mod I wc mobility 150' Dates: Start: 04/20/24 Expected End: 05/11/24 Outcomes Date/Time User Outcome 05/20/24 1002 Elzbieta Garcia PT Progressing Goal: up/dn 4 flights of stairs min A Dates: Start: 04/20/24 Expected End: 05/11/24 Outcomes Date/Time User Outcome 05/20/24 1002 Elzbieta Garcia PT Progressing Goal: Ambulate x50ft LRAD SUP Dates: Start: 05/20/24 Outcomes Date/Time User Outcome 05/20/24 1002 Elzbieta Garcia PT Progressing Encounter Problems (Resolved) Template: Physical Therapy Problem: PT Short Term Goals Dates: Start: 04/20/24 Resolved: 05/20/24 Goal: Pt will perform bed mobility min A (Resolved) Dates: Start: 04/20/24 Expected End: 04/27/24 Resolved: 05/17/24 Outcomes Date/Time User Outcome 05/17/24 1403 Elzbieta Garcia PT Completed Goal: Pt will transfer with min A (Resolved) Dates: Start: 04/20/24 Expected End: 04/27/24 Resolved: 05/20/24 Outcomes Date/Time User Outcome 05/20/24 1001 Elzbieta Garcia PT Completed Goal: Pt will ambulate 25' with LAD mod A (Resolved) Dates: Start: 04/20/24 Expected End: 04/27/24 Resolved: 05/20/24 Outcomes Date/Time User Outcome 05/20/24 1001 Elzbieta Garcia PT Completed Goal: Assess stairs as appropriate (Resolved) Dates: Start: 04/20/24 Expected End: 04/27/24 Resolved: 05/06/24 Outcomes Date/Time User Outcome 05/06/24 1038 Elzbieta Garcia PT Completed Goal: Supervision wc mobility and mgmt 150' (Resolved) Dates: Start: 04/20/24 Expected End: 04/27/24 Resolved: 05/06/24 Description: Outcomes Date/Time User Outcome 05/06/24 1038 Elzbieta Garcia PT Completed Session Start/Stop Time: 1000 1115 Therapy Minutes Physical Therapy PT Individual: 75 * Neida Bailey, - 05/27/2024 10:53 AM EST Images from the original note were not included. [facility] Daily Progress Note Patient name: Amalia Ann : 1975 SUBJECTIVE: Patient seen and examined at bedside today. No acute events overnight. Denies headaches, dizziness,shortness of breath, chest pain, nausea, constipation, and pain. Reports that therapies are going well. States that mood is improved since starting Lexapro. TEAM CONFERENCE: I was present and participated in team meeting today. I agree with team conferenceplan as documented in alternate note today. Please refer to team conference note for further details. OBJECTIVE: Vitals: 05/26/24 0915 05/26/24 1557 05/26/24 2336 05/27/24 0713 BP: 138/67 (!) 147/77 (!) 145/71 (!) 145/71 BP Location: Right arm Right arm Patient Position: Lying Lying Pulse: 64 77 70 65 Resp: 18 18 Temp: 37.1 ??C (98.8 ??F) 36.2 ??C (97.1 ??F) 36.7 ??C (98.1 ??F) 36.8 ??C (98.2 ??F) TempSrc: Oral Oral SpO2: 99% 98% 100% 99% Weight: Height: Physical Examination: General: Alert, in no acute cardiopulmonary distress. Mental Status: Oriented to person, place and time. Normal affect. Head: Normocephalic. Eyes: Extraocular muscles grossly intact. Ear, Nose and Throat: Oropharynx clear, mucous membranes moist. Ears and nose without masses, lesions or deformities. Neck: Supple, Trachea midline. Respiratory: Clear to auscultation and percussion. No wheezing, rales or rhonchi. Cardiovascular: Heart sounds normal. No thrills. Regular rate and rhythm, no murmurs, rubs or gallops. Gastrointestinal: Abdomen soft, non-tender, non-distended. Normal bowel sounds. Neurologic: Cranial nerves II-XII grossly intact. Moves all extremities spontaneously. Sensation intact bilaterally. +left hemiparesis Skin: No rashes or lesions. No petechiae or purpura. No edema. Musculoskeletal: No cyanosis or clubbing. No gross deformities. Normal range of motion. Strength 4/5 left shoulder abduction, 4/5 left elbow flexion, 1/5 left wrist extension, 1/5 left finger flexion. Strength 4/5 left hip flexion and knee extension. Left dorsiflexion strength 1/5. CURRENT INPATIENT MEDICATIONS: Current Facility-Administered Medications: acetaminophen (TYLENOL) tablet 650 mg, 650 mg, oral, q6h PRN, BRAD Hicks, 650 mg at 133314 aluminum-magnesium hydroxide-simethicone (MAALOX) 200-200-20 mg/5 mL suspension 30 mL, 30 mL, oral,q4h PRN, BRAD Hicks, 30 mL at 12/23/24 0354 amLODIPine (NORVASC) tablet 10 mg, 10 mg, oral, Daily, BRAD Viramontes, 10 mg at 05/27/24820 aspirin EC tablet 81 mg, 81 mg, oral, Daily, BRAD Hicks, 81 mg at 05/27/24820 atorvastatin (LIPITOR) tablet 10 mg, 10 mg, oral, Nightly, BRAD Viramontes, 10 mg at 05/26/242041 cholecalciferol (VITAMIN D-3) tablet 2,000 Units, 2,000 Units, oral, Daily, Leah Philippe NP, 2,000 Units at 05/27/24820 clopidogreL (PLAVIX) tablet 75 mg, 75 mg, oral, Daily, BRAD Hicks, 75 mg at 05/27/24820 cyanocobalamin (VITAMIN B-12) tablet 1,000 mcg, 1,000 mcg, oral, Daily, Leah Philippe NP, 1,000 mcg at 05/27/24 1022 dextrose (D50W) 50% injection 12.5 g, 12.5 g, intravenous, q15 min PRN, BRAD Hicks dextrose (D50W) 50% injection 25 g, 25 g, intravenous, q15 min PRN, BRAD Hicks dextrose 15 gram/60 mL oral solution 15 g, 15 g, oral, q15 min PRN, BRAD Hicks dextrose 15 gram/60 mL oral solution 30 g, 30 g, oral, q15 min PRN, BRAD Hicks enoxaparin (LOVENOX) injection 40 mg, 40 mg, subcutaneous, q24h KATIE, Leah Philippe NP, 40 mg at 05/27/24 102 escitalopram (LEXAPRO) tablet 5 mg, 5 mg, oral, Daily, Neida Bailey DO, 5 mg at 05/27/24820 glipiZIDE (GLUCOTROL) tablet 5 mg, 5 mg, oral, q AM AC, BRAD Viramontes, 5 mg at 05/27/24820 Glucagon HCl (rDNA) injection 1 mg, 1 mg, intramuscular, Once PRN, BRAD Hicks hydrALAZINE (APRESOLINE) tablet 10 mg, 10 mg, oral, TID PRN, BRAD Viramontes insulin lispro injection 2-12 Units, 2-12 Units, subcutaneous, TID AC, Neida Bailey, DO, 2 Units at 05/27/24 0820 magnesium hydroxide (MILK OF MAGNESIA) 400 mg/5 mL suspension 30 mL, 30 mL, oral, Daily PRN, BRAD Rojas, 30 mL at 04/23/24 0529 magnesium oxide (MAG-OX) tablet 400 mg, 400 mg, oral, BID, BRAD Viramontes, 400 mg at 821 metFORMIN (GLUCOPHAGE) tablet 500 mg, 500 mg, oral, BID with meals, Leah Philippe NP, 500 mg at 05/27/24 0821 traMADoL (ULTRAM) tablet 25 mg, 25 mg, oral, q6h PRN, Radhika Barber NP, 25 mg at 05/06/242031 LABS: Lab Results Component Value Date WBC 7.5 05/22/2024 RBC 4.10 05/22/2024 HGB 11.9 05/22/2024 HCT 36.3 05/22/2024 MCV 89.6 05/22/2024 MCHC 32.8 05/22/2024 RDW 13.1 05/22/2024 PLT 297 05/22/2024 MPV 11.9 (H) 05/22/2024 NRBC 0.0 05/22/2024 DIFF Lab Results Component Value Date LYMPHOPCT 10.4 05/06/2024 NEUTROABS 7.49 (H) 05/06/2024 LYMPHSABS 0.92 (L) 05/06/2024 MONOABS 0.33 05/06/2024 EOSABS 0.02 05/06/2024 BASOSABS 0.02 05/06/2024 IMMGRANABS 0.03 05/06/2024 RETIC No results found for: RETIC , RETICCTPCT Lab Results Component Value Date NA 137 05/27/2024 K 4.3 05/27/2024 CL 107 05/27/2024 CO2 24 05/27/2024 GLUCOSE 197 (H) 05/27/2024 BUN 15 05/27/2024 CREATININE 0.69 05/27/2024 CALCIUM 8.5 05/27/2024 PROT 6.3 05/27/2024 ALBUMIN 3.0 (L) 05/27/2024 BILITOT 0.3 05/27/2024 AST 11 05/27/2024 ALT 20 05/27/2024 MG 1.8 (L) 05/27/2024 ALKPHOS 76 05/27/2024 CKTOTAL 31 05/13/2024 EGFR 108 05/27/2024 IMPRESSION & PLAN: #Impaired mobility and self care -secondary to CVA -continue PT, OT, LOGISTICIAN, and nursing care #Acute anterior right pontine stroke #Left hemiparesis #Dysarthria -Aspirin 81mg daily -Plavix 75mg daily -Atorvastatin 80mg nightly discontinued on 05/17 due to weakness and concern for possible myopathy which is unlikely --> restarted Atorvastatin 10mg nightly on 05/24 -CT head 05/07/24 showed subtle hypoattenuation in the rightward srinivas correlating with an infarct demonstrated on the comparison MRI, no acute hemorrhage or other acute superimposed findings -CTA head/neck from [facility] showed moderate to severe intracranial atherosclerotic disease which likely puts her at risk for further CVAs -05/09 due to continued worsening weakness MRI brain ordered also reached out to Dr Reynoso at [facility] to inform of changes in neurostatus --> no response from Dr Reynoso, MRI brain 05/10 redemonstrated prior known infarcts without acute abnormality -continue therapies -left AFO received and will continue use -f/u Neurology after discharge #Dysphagia -regular diet with thin liquids -continue LOGISTICIAN #Depression -Escitalopram 5mg daily started 05/24, continue #Hypertension -Lisinopril 10mg daily increased to 20mg daily on 04/25 --> discontinued 05/01 due to complaintsof itchiness to her throat -Amlodipine 5mg daily started 04/28 --> increased to 10mg daily on 05/24 #Diabetes mellitus type 2 -noncompliant with treatment prior to admission -continue diabetic education -will need glucometer and supplies on discharge -ISS -Lantus 22 units QHS decreased to 10 units QHS on 05/02 --> discontinued on 05/03 -Metformin 500mg BID started 04/28 -Glipizide 5mg daily started 05/03 #Hypomagnesemia -Magnesium oxide 400mg daily started 05/18 --> increased to 400mg BID on 05/22 #Bladder management -UA 05/06 negative for UTI -UA 05/16 negative for UTI #Bowel management -Colace and Senna discontinued on 05/01 due to loose stools -monitor #DVT prophylaxis: Lovenox 40mg daily * Joshua Tellez OT - 05/27/2024 8:30 AM EST [facility] Occupational Therapy Treatment Note 05/27/24 Patient: Amalia Ann : 1975 Age: 49 y.o. Gender: female Diagnosis: No Principal Problem: There is no principal problem currently on the Problem List. Please update the Problem List and refresh. Primary Rehab (Etiologic) Diagnosis: Patient Active Problem List Diagnosis HTN (hypertension) DM (diabetes mellitus) (CMS/HCC) CVA (cerebral vascular accident) ([facility]/HCC) PMH: Past Medical History: Diagnosis Date CVA (cerebral vascular accident) (CMS/HCC) DM (diabetes mellitus) ([facility]/HCC) HTN (hypertension) PSH: History reviewed. No pertinent surgical history. Allergies: is allergic to lisinopril. Precautions: Precautions Medical Precautions: Fall Risk Safety Interventions: Call noriega within reach Swallow Precautions: (none) RUE Weight Bearing Status: Full LUE Weight Bearing Status: Full, As Tolerated RLE Weight Bearing Status: Full LLE Weight Bearing Status: Full Pain: pt reporting mild back pain during neuro re-ed. Subjective: We can do that. Procedures/Interventions: ADLs/IADLs Self Care/Home Management (ADLs) Time Entry: 60 Pt in elevated supine, agreeable to participation in family training with DAVIN Abel present. Pt performed elevated supine>sit EOB with mod I. SPT with R UE on bed rail close S. W/c level, pt performed clothing retrival with no more than S. Pt reports that she will be able to retrieve clothing from w/c level at home. Pt performed UB dressing with mod I. While seated pt thread BLEs through pants, and SBA in stand ot hike pants over hips with use of B UEs. Pt with good insight to locking breaks. Pt donned R shoe, and L shoe/AFO with A to tie L shoe. Page reporitng that he is getting a new pair of shoes today, to fit AFO. education provided on skin checks post AFO removal. Education provided on commode recommendation, to allow IND toielting when SO not home, as pt is un brianna to access bathroom via w/c. It is not reccommended that pt access bathroom without w/c as pt requires hands on assist for mobility. Provided visual demo of placing commode frame over toilet. Pt able to access toilet via SBQC, with SO providing hands on assist at home. Pt requesting to toilet. Functional amb at [facility] steadying A, toilet txfer steadying A with commode frame. SBA for clothing management. Pt with no successful BM. Pt performed oral hygiene in stand with use of B UEs, with SBA. Pt propelled self from room>ADL bathroom S. Functional amb into ADL bathroom at [facility] steadying A. Tub txfer with use of tub bench performed with Steadying A. Page educated on purpose and recommendation of S when bathing in shower. Pt and SO agreeable. Balance/Neuromuscular Re-Education Neuromuscular Re-Education Time Entry: 30 Pt seated at table top to address L UE NMRE to increase strength and functional use. Pt tasked withutilizing L UE to grasp and and transport medium/small diameter cylinders to color coordinated targets. Pt initially grasping from the top, verbal cues provided for assuming neutral wrist during pre grasp phase. Pt able to isolate 1-2 digits to utilize pincer grasp. Pt tasked with placing into target while maintaining the cylinder upright, max increased time to complete task with both types of cylinders, as pt frequently knocking over. Verbal cues for slowed pacing to increase success. Bucket placed anteriorly and pt tasked with reaching anteriorly with L UE to return items, verbal cues for elbow extension. Pt propelled self back to room S. Chair alarm on and call noriega in reach. End of session pt seated in w/c with chair alarm on and call noriega in reach, awaiting arrival of PT. OT Assessment OT Assessment OT Assessment Results: Decreased ADL status, Decreased upper extremity range of motion, Decreased upper extremity strength, Decreased safe judgment during ADL, Decreased fine motor control, Decreasedfunctional mobility, Decreased gross motor control, Decreased trunk control for functional activities Prognosis: Good Evaluation/Treatment Tolerance: Patient tolerated treatment well Comments: Pt Completed 90min session, family training completed. Aria confirming that he is going to provide close to 24/7 S once pt is discharged. Page confirming that he is going to perform all meal prep for pt. Reccommended that pt have tub bench and 3-in-1 commode to maximize INDEPENDENCE with ADLs. Equipment Recommended Post CVA, pt presents with strength impairment on L side, thus pt requires use of a tub bench in order to transfer into tub shower combo. Pt is unable to safety step into tub, it is not recommended that pt complete tub txfer without use of tube bench. Pt requires a 3-in-1 commode for toileting at home. Pt will be mod I from w/c level, and her w/c does not fit into her bathroom. OT Plan Plan Treatment Interventions: ADL retraining, Functional transfer training, Endurance training, UE strengthening/ROM, Equipment evaluation/education, Patient/family training, Fine motor coordination activities, Neuromuscular reeducation OT Plan: Skilled OT OT Frequency : 5-7 days per week OT Duration of Sessions: 60-90 min per session OT Treatments per day: 1 time per day OT - Evaluation Status: Complete Equipment Recommended: (TBD) Goals: Encounter Problems Encounter Problems (Active) Template: Occupational Therapy Problem: OT Membership Manager Goals Dates: Start: 04/20/24 Goal: Pt will be mod I with LB dressing Dates: Start: 04/20/24 Expected End: 05/18/24 Outcomes Date/Time User Outcome 05/12/241216 RICHIE Lucas Progressing Goal: Pt will be mod I with UB dressing Dates: Start: 04/20/24 Expected End: 05/18/24 Outcomes Date/Time User Outcome 05/12/241216 RICHIE Lucas Progressing Goal: Pt will be S with bathing Dates: Start: 04/20/24 Expected End: 05/18/24 Outcomes Date/Time User Outcome 05/12/247 RICHIE Lucas Progressing Goal: Pt will be mod I with toileting including txfer Dates: Start: 04/20/24 Expected End: 05/18/24 Outcomes Date/Time User Outcome 05/12/247 RICHIE Lucas Progressing Goal: Pt will perform tub txfer with LRAD with S. Dates: Start: 04/20/24 Expected End: 05/18/24 Outcomes Date/Time User Outcome 05/12/241216 RICHIE Lucas Progressing Goal: Pt will be mod I with snack/beverage retrieval at LRAD Dates: Start: 04/20/24 Expected End: 05/18/24 Description: Outcomes Date/Time User Outcome 05/12/241216 RICHIE Lucas Progressing Problem: OT Short Term Goals Dates: Start: 05/15/24 Goal: Pt will perform toileting with steadying A with use of LRAD. Dates: Start: 05/15/24 Expected End: 05/22/24 Outcomes Date/Time User Outcome 05/23/24 145Sita Tellez OT Progressing Goal: Pt will perform LB dressing steadying A Dates: Start: 05/15/24 Expected End: 05/22/24 Outcomes Date/Time User Outcome 05/23/24 Felipe Tellez OT Progressing Goal: Pt will perform UB dressing with PETERSON Dates: Start: 05/15/24 Expected End: 05/22/24 Outcomes Date/Time User Outcome 05/23/24 Felipe Tellez OT Progressing Goal: Pt will perform bathing with Steadying A for balance. Dates: Start: 05/15/24 Expected End: 05/22/24 Outcomes Date/Time User Outcome 05/23/24 Felipe Tellez OT Progressing Goal: Pt will utilize L UE gross assist during oral hygiene tasks. Dates: Start: 05/15/24 Expected End: 05/22/24 Outcomes Date/Time User Outcome 05/23/24 Felipe Tellez OT Progressing Encounter Problems (Resolved) Template: Occupational Therapy Problem: OT Short Term Goals Dates: Start: 04/20/24 Resolved: 05/03/24 Goal: Pt will perform toileting with partial A (Resolved) Dates: Start: 04/20/24 Expected End: 04/27/24 Resolved: 05/03/24 Outcomes Date/Time User Outcome 05/03/24 Susan Gray OT Completed Goal: Pt will perform LB dressing with partial A (Resolved) Dates: Start: 04/20/24 Expected End: 04/27/24 Resolved: 05/03/24 Outcomes Date/Time User Outcome 05/03/24 Susan Gray OT Completed Goal: Pt will perform bathing with steadying A. (Resolved) Dates: Start: 04/20/24 Expected End: 04/27/24 Resolved: 05/03/24 Outcomes Date/Time User Outcome 05/03/24 Susan Gray OT Completed Goal: Pt will be able to utilize L UE as an independent stabilizer during grooming tasks (Resolved) Dates: Start: 04/20/24 Expected End: 04/27/24 Resolved: 05/03/24 Outcomes Date/Time User Outcome 05/03/24 Susan Gray OT Completed Goal: Pt will perform UB dressing with PETERSON, with carryover of tasha dressing technique (Resolved) Dates: Start: 04/20/24 Expected End: 04/27/24 Resolved: 05/03/24 Outcomes Date/Time User Outcome 05/03/24 Susan Gray OT Completed Education Documentation Safe Use of DME, taught by Joshua Tellez OT at 05/27/2024 12:16 PM. Learner: Significant Other, Patient Readiness: Acceptance Method: Explanation, Demonstration, Trench Trimmer Fine Response: Verbalizes Understanding, Demonstrated Understanding The Cost of DME, Purchase and Rental, taught by Joshua Tellez OT at 05/27/2024 12:16 PM. Learner: Significant Other, Patient Readiness: Acceptance Method: Explanation, Demonstration, Trench Trimmer Fine Response: Verbalizes Understanding, Demonstrated Understanding ADL Training, taught by Joshua Tellez OT at 05/27/2024 12:16 PM. Learner: Significant Other, Patient Readiness: Acceptance Method: Explanation, Demonstration, Trench Trimmer Fine Response: Verbalizes Understanding, Demonstrated Understanding Body Mechanics, taught by Joshua Tellez OT at 05/27/2024 12:16 PM. Learner: Significant Other, Patient Readiness: Acceptance Method: Explanation, Demonstration, Trench Trimmer Fine Response: Verbalizes Understanding, Demonstrated Understanding Activity/Positioning, taught by Joshua Tellez OT at 05/27/2024 12:16 PM. Learner: Significant Other, Patient Readiness: Acceptance Method: Explanation, Demonstration, Trench Trimmer Fine Response: Verbalizes Understanding, Demonstrated Understanding Discharge Planning, taught by Joshua Tellez OT at 05/27/2024 12:16 PM. Learner: Significant Other, Patient Readiness: Acceptance Method: Explanation, Demonstration, Trench Trimmer Fine Response: Verbalizes Understanding, Demonstrated Understanding Teach precautions to protect skin integrity, taught by Joshua Tellez OT at 05/27/2024 12:16 PM. Learner: Significant Other, Patient Readiness: Acceptance Method: Explanation, Demonstration, Trench Trimmer Fine Response: Verbalizes Understanding, Demonstrated Understanding Teach positioning to prevent injury, taught by Joshua Tellez OT at 05/27/2024 12:16 PM. Learner: Significant Other, Patient Readiness: Acceptance Method: Explanation, Demonstration, Trench Trimmer Fine Response: Verbalizes Understanding, Demonstrated Understanding Education Comments No comments found. Start/Stop Time OT Time Calculation OT Start Time: 0830 OT Stop Time: 1000 OT Time Calculation (min): 90 min Therapy Minutes: Occupational Therapy OT Individual: 90 * Brie Calvillo RN - 05/27/2024 2:43 AM EST Problem: Cognitive: Domínguez Job Fall Risk Goal: Last Known Fall Outcome: Progressing Goal: Mobility requiring assistance of person or device Outcome: Progressing Goal: Dizziness Outcome: Progressing Goal: Medications Outcome: Progressing Goal: Mental Status/LOC/Awareness Outcome: Progressing Goal: Toileting Needs Outcome: Progressing Goal: Volume and Electrolyte Status Outcome: Progressing Goal: Communication/Sensory Outcome: Progressing Goal: Behavior Outcome: Progressing Problem: Skin Integrity: Pressure Injury Actual or Risk of Goal: Will not develop new pressure injury Outcome: Progressing Goal: Skin integrity will improve Outcome: Progressing Goal: Risk for impaired skin integrity will decrease Outcome: Progressing Problem: Activity:Pressure Injury Actual or Risk of Goal: Mobility will improve Outcome: Progressing Goals: Clinical Goals for the Shift: To stay free from falls. Identify possible barriers to meeting goals/advancing plan of care: Pt working towards goals. Stability of the patient: Moderately Unstable - Medium risk of patient condition declining or worsening End of Shift Summary: Pt calm and cooperative, denies pain, no signs of distress.. Call noriega is in reach. Pt is encouraged to use the call noriega for assist with any needs. Hourly and prn safety checksmaintained throughout the shift. * Brie Calvillo RN - 2024 3:23 AM EST Problem: Cognitive: Catrachita Kaiser Fall Risk Goal: Last Known Fall Outcome: Progressing Goal: Mobility requiring assistance of person or device Outcome: Progressing Goal: Dizziness Outcome: Progressing Goal: Medications Outcome: Progressing Goal: Mental Status/LOC/Awareness Outcome: Progressing Goal: Toileting Needs Outcome: Progressing Goal: Volume and Electrolyte Status Outcome: Progressing Goal: Communication/Sensory Outcome: Progressing Goal: Behavior Outcome: Progressing Problem: Skin Integrity: Pressure Injury Actual or Risk of Goal: Will not develop new pressure injury Outcome: Progressing Goal: Skin integrity will improve Outcome: Progressing Goal: Risk for impaired skin integrity will decrease Outcome: Progressing Problem: Activity:Pressure Injury Actual or Risk of Goal: Mobility will improve Outcome: Progressing Problem: Nutritional:Pressure Injury Actual or Risk of Goal: Nutritional status will improve Outcome: Progressing Problem: Patient Specific Problem: Pressure Injury Actual or Risk of Goal: Patient Specific Outcome Outcome: Progressing Problem: Cognitive/Linguistics Goal: Patient will complete simple calculations for time/money management at 90% accuracy given Mauro Description: Goal Type: STG, Performance Level: Min assist Outcome: Progressing Goals: Clinical Goals for the Shift: To stay free from falls. Identify possible barriers to meeting goals/advancing plan of care: Pt working towards goals. Stability of the patient: Moderately Unstable - Medium risk of patient condition declining or worsening End of Shift Summary: Pt calm and cooperative overnight, no complaints of pain, no signs of distress. Room safety maintained, call noriega in reach, bed alarm on, hourly and prn safety checks maintained. Pt encouraged to use the call noriega for assist with any needs. * Neida Huizar - 05/25/2024 3:36 PM EST SPIRITUAL CARE Date/Time:05/25/24 at 3:36 PM EST Type of Visit: Spirituality Group Reason for Visit: Spiritual/Emotional Support Time Spent: 35 Minutes Location: [address] [place] [address] Sacramental Encounters: Spiritual Distress Assessment: Spiritual Distress Assessment at beginning of visit Meaning - Overall Life Balance: Substantial evidence of unmet spiritual need Transcendence: Some evidence of unmet spiritual need Values - Acknowledgement: Some evidence of unmet spiritual need Values - Control: Some evidence of unmet spiritual need Psycho-Social Identity: Some evidence of unmet spiritual need SDAT Beginning of Visit Average Score: 1.2 Spiritual Distress Assessment at end of visit Meaning - Overall Life Balance: Substantial evidence of unmet spiritual need Transcendence: Some evidence of unmet spiritual need Values - Acknowledgement: Some evidence of unmet spiritual need Values - Control: Some evidence of unmet spiritual need Psycho-Social Identity: Some evidence of unmet spiritual need SDAT End of Visit Average Score: 1.2 Spiritual Assessment/Distress Spiritual Care Assessment: Assessment: Chief Physical Therapist facilitated Spirituality Group on Mindfulness and Relaxation. Pt attended. Pt engaged in group process. Intervention: NE Spiritual Care Interventions : provided orthodox resource Outcomes: expressed peace Plan of Care: Follow up Support for patient *Reference: Spiritual Distress Assessment Tool: The SDAT is a clinical tool used by chaplains to identify unmet spiritual and emotional needs that can impact Goals of Care in the following categories: Spiritual Distress Assessment Legend Spiritual Needs Related Questions Meaning Are you having difficulties coping with what is happening to your now? Does your hospitalization have any repercussions on the way you live usually? Transcendence Do you have a particular episcopal, azalea, or spirituality? Is your episcopal/spirituality/azalea challenged by what is happening to you now? Values Do you think that the health professionals caring for you know you well enough? Do you feel that you are participating in the decisions made about your care? Psycho-Social Identity Do you have any worries or difficulties regarding your family or other persons close to you? Do you feel lonely? Do you have links to your azalea community? SCALE 0= no evidence of unmet spiritual needs 1= some evidence of unmet spiritual needs 2= substantial evidence of unmet spiritual needs 3= evidence of severe unmet spiritual needs * Neida Huizar - 05/25/2024 3:14 PM EST SPIRITUAL CARE Date/Time:05/25/24 at 3:14 PM EST Type of Visit:Follow-up/ Referral Reason for Visit: Spiritual/Emotional Support Time Spent: 25 Minutes Location: [address] [place] [address] Sacramental Encounters: Spiritual Distress Assessment: Spiritual Distress Assessment at beginning of visit Meaning - Overall Life Balance: Substantial evidence of unmet spiritual need Transcendence: Some evidence of unmet spiritual need Values - Acknowledgement: Some evidence of unmet spiritual need Values - Control: Some evidence of unmet spiritual need Psycho-Social Identity: Some evidence of unmet spiritual need SDAT Beginning of Visit Average Score: 1.2 Spiritual Distress Assessment at end of visit Meaning - Overall Life Balance: Substantial evidence of unmet spiritual need Transcendence: Some evidence of unmet spiritual need Values - Acknowledgement: Some evidence of unmet spiritual need Values - Control: Some evidence of unmet spiritual need Psycho-Social Identity: Some evidence of unmet spiritual need SDAT End of Visit Average Score: 1.2 Spiritual Assessment/Distress Spiritual Care Assessment: Assessment: Chief Physical Therapist was referred by medical team and initiated follow-up visit. Pt showed evidenceof spiritual / emotional distress due to hospitalization and distance from family members. Chaplainused soup person Fred #[id number] to speak to pt. Pt's mood was elevated at the beginning of visit. She was interested in talking. Pt reported that today she feels more positive, and she has been making an effort to be more engaged. Pt said she is feeling emotional, though. Today is her grandchild's birthday, and her son's birthday and her birthday are coming up. Pt said she is in touch with her family members, including her adult children, her uncle, her partner, and her friend. Pt also said shetakes care of her mother, and she is worried about her. When asked how she feels emotionally, pt began to cry. She stated sometimes I feel alone. At the end of the visit, corporate traffic manager invited pt to attend Monday's Spirituality Group, offered on the pt's Rehab floor, and the pt agreed to attend. Intervention: NE Spiritual Care Interventions : explored emotional needs and resources, explored relational needsand resources, cultivated a relationship of care and support, and listened empathically Outcomes: progressed toward acceptance and tearfully processed emotions; pt was calm by the end of the visit and agreed to attend Spirituality Group Plan of Care: Follow up Support for patient *Reference: Spiritual Distress Assessment Tool: The SDAT is a clinical tool used by chaplains to identify unmet spiritual and emotional needs that can impact Goals of Care in the following categories: Spiritual Distress Assessment Legend Spiritual Needs Related Questions Meaning Are you having difficulties coping with what is happening to your now? Does your hospitalization have any repercussions on the way you live usually? Transcendence Do you have a particular episcopal, azalea, or spirituality? Is your episcopal/spirituality/azalea challenged by what is happening to you now? Values Do you think that the health professionals caring for you know you well enough? Do you feel that you are participating in the decisions made about your care? Psycho-Social Identity Do you have any worries or difficulties regarding your family or other persons close to you? Do you feel lonely? Do you have links to your azalea community? SCALE 0= no evidence of unmet spiritual needs 1= some evidence of unmet spiritual needs 2= substantial evidence of unmet spiritual needs 3= evidence of severe unmet spiritual needs * Isi Varghese RN - 05/25/2024 5:53 AM EST Goals: Clinical Goals for the Shift: To stay free from falls. Identify possible barriers to meeting goals/advancing plan of care: Pt continue to work towards rehab goals Stability of the patient: Moderately Unstable - Medium risk of patient condition declining or worsening End of Shift Summary: Bed alarm on. Bed locked/low. Call noriega within reach. Denies pain. * Kaci Renteria RN - 05/24/2024 3:52 PM EST Goals: Clinical Goals for the Shift: To stay free from falls. Identify possible barriers to meeting goals/advancing plan of care: sadness weakness Stability of the patient: Moderately Unstable - Medium risk of patient condition declining or worsening End of Shift Summary: Pt participating in therapies and adherent to nursing recommendations. Pt safety maintained. PHR and alarms in use, safety reminders provided . Rest periods provided as needed. Pt emotionally stable for rest of shift. Pt saw Desmond from [facility] and RN requested that pt be on daily visit list as possible . * Elzbieta Garcia, PT - 05/24/2024 3:50 PM EST [facility] Physical Therapy Treatment Note 05/24/2024 Patient: Amalia Ann : 1975 Age: 48 y.o. Gender: female Primary Language: Barbadian Diagnosis: No Principal Problem: There is no principal problem currently on the Problem List. Please update the Problem List and refresh. Past Medical History: Diagnosis Date CVA (cerebral vascular accident) ([facility]) DM (diabetes mellitus) ([facility]) HTN (hypertension) History reviewed. No pertinent surgical history. Allergies: is allergic to lisinopril. Precautions: Medical Precautions: Fall Risk Safety Interventions: Call noriega within reach Swallow Precautions: (none) RUE Weight Bearing Status: Full LUE Weight Bearing Status: Full, As Tolerated RLE Weight Bearing Status: Full LLE Weight Bearing Status: Full SUBJECTIVE Pt report: Thank you Pain:0/10 OBJECTIVE General Observation: Pt in bathroom agreeable to participating in therapy session. Procedure/Treatment: Neuromuscular Reeducation: Balance/Neuromuscular Re-Education Neuromuscular Re-Education Time Entry: 60 Pt in bathroom agreeable to participating in therapy session. Pt completed steadying assistance fortransfer from toilet to . Video automatic embroidery machine tender used [id number]. Education provided for skin check, pt performing skin check with SUP. Pt needing assistance donning shoe on LLE. Pt completed WC mobility down to therapy gym SUP. Pt completed x3 FOS seated rest breaks between FOS, step to pattern ascendingwith R rail, descending backwards with LLE. Pt needing steadying assistance-SUP on stairs, no acutebuckling. Pt needing cues for pacing. PT completed 2x20ft with SBQC, steadying assistance. Pt ambulating 2x15, partial A x1, no AD. Pt completed WC Mobility back to room, SUP. Pt transferring SUP from WC to EOB. Pt doffing AFO, pt with small pink blanchable area on 5th MTP. Pt completed sit to supine SUP. Pt left supine in bed, call noriega in reach, bed alarm on, all needs met. Therapist returning in afternoon Alejandro present. Video automatic embroidery machine tender [id number]. Pt giving this verse writer permission to speak with Alejandro. Alejandro verbalized he would be home to assist pt on d/c. Confirmed family training Saturday 05/27 at 8:30 AM. Education provided on pt to be mod-I WC level. Will need assistance ambulating into bathroom with AFO and SBQC. Educated on AFO and need of larger shoes. Alejandro agreeable to assist pt and WC up and down stairs to get into apartment. Per OT recommendations educated on useof 3-1 safety frame over toilet when Alejandro is home to assist pt into bathroom, and use as commode when pt left alone at WC level. Both Alejandro and Pt agreeable, no further questions. Pt left supine in bed, call noriega in reach, bed alarm on, all needs met. Education: Education Documentation Mobility Training, taught by Elzbieta Garcia, PT at 05/24/2024 12:09 PM. Learner: Patient Readiness: Acceptance Method: Explanation, Demonstration Response: Verbalizes Understanding, Demonstrated Understanding Comment: Depression, consult with Dr. Bailey. Education Comments No comments found. ASSESSMENT Alejandro confirmed family training 05/27 8:30am. Pt progressing to SUP on stairs, with increased reps ofstairs and ambulation, pt with increased fatigue. Equipment: TBD Plan of Care Plan Treatment/Interventions: (As per IE) PT Plan: Skilled PT PT Frequency: 5-7 days per week PT Duration of Sessions: 60-90 min per session PT Treatments per day: 1-2 times per day Equipment Recommended: TBD Barriers to Discharge: home environment, medical condition PT - Evaluation Status: Complete Problems/Goals Goals: Encounter Problems Encounter Problems (Active) Template: Physical Therapy Problem: PT Membership Manager Goals Dates: Start: 04/20/24 Goal: mod I bed mobility Dates: Start: 04/20/24 Expected End: 05/11/24 Outcomes Date/Time User Outcome 05/20/24 1002 Elzbieta Garcia PT Progressing Goal: mod I transfers with LAD Dates: Start: 04/20/24 Expected End: 05/11/24 Outcomes Date/Time User Outcome 05/20/24 1002 Elzbieta Garcia PT Progressing Goal: mod I wc mobility 150' Dates: Start: 04/20/24 Expected End: 05/11/24 Outcomes Date/Time User Outcome 05/20/24 1002 Elzbieta Garcia PT Progressing Goal: up/dn 4 flights of stairs min A Dates: Start: 04/20/24 Expected End: 05/11/24 Outcomes Date/Time User Outcome 05/20/24 1002 Elzbieta Garcia PT Progressing Goal: Ambulate x50ft LRAD SUP Dates: Start: 05/20/24 Outcomes Date/Time User Outcome 05/20/24 1002 Elzbieta Garcia PT Progressing Encounter Problems (Resolved) Template: Physical Therapy Problem: PT Short Term Goals Dates: Start: 04/20/24 Resolved: 05/20/24 Goal: Pt will perform bed mobility min A (Resolved) Dates: Start: 04/20/24 Expected End: 04/27/24 Resolved: 05/17/24 Outcomes Date/Time User Outcome 05/17/24 1403 Elzbieta Garcia, PT Completed Goal: Pt will transfer with min A (Resolved) Dates: Start: 04/20/24 Expected End: 04/27/24 Resolved: 05/20/24 Outcomes Date/Time User Outcome 05/20/24 1001 Elzbieta Garcia PT Completed Goal: Pt will ambulate 25' with LAD mod A (Resolved) Dates: Start: 04/20/24 Expected End: 04/27/24 Resolved: 05/20/24 Outcomes Date/Time User Outcome 05/20/24 1001 Elzbieta Garcia PT Completed Goal: Assess stairs as appropriate (Resolved) Dates: Start: 04/20/24 Expected End: 04/27/24 Resolved: 05/06/24 Outcomes Date/Time User Outcome 05/06/24 1038 Elzbieta Garcia, PT Completed Goal: Supervision wc mobility and mgmt 150' (Resolved) Dates: Start: 04/20/24 Expected End: 04/27/24 Resolved: 05/06/24 Description: Outcomes Date/Time User Outcome 05/06/24 1038 Elzbieta Garcia PT Completed Session Start/Stop Time: 1300 1400 Therapy Minutes Physical Therapy PT Individual: 60 * Neida Emanuel Bailey, DO - 05/24/2024 2:59 PM EST Images from the original note were not included. [facility] Daily Progress Note Patient name: Amalia Ann : 1975 SUBJECTIVE: Patient seen and examined at bedside today. No acute events overnight. Denies headaches, dizziness,shortness of breath, chest pain, nausea, constipation, and pain. Reports feeling depressed regarding her recent stroke, prolonged recovery, and continued hospitalization. Agreed to starting antidepressant. Participating in therapies: Pt completed WC mobility down to therapy gym x150ft SUP. OBJECTIVE: Vitals: 05/23/24 0744 05/23/24 1547 05/24/24 0138 05/24/24 0745 BP: (!) 141/75 135/70 133/74 134/73 BP Location: Right arm Left arm Right arm Right arm Patient Position: Lying Lying Lying Lying Pulse: 64 71 78 64 Resp: 18 18 18 20 Temp: 36.7 ??C (98.1 ??F) 37.1 ??C (98.8 ??F) 37 ??C (98.6 ??F) 36.7 ??C (98.1 ??F) TempSrc: Oral Oral Oral Oral SpO2: 100% 100% 99% 99% Weight: Height: Physical Examination: General: Alert, in no acute cardiopulmonary distress. Mental Status: Oriented to person, place and time. Normal affect. Head: Normocephalic. Eyes: Extraocular muscles grossly intact. Ear, Nose and Throat: Oropharynx clear, mucous membranes moist. Ears and nose without masses, lesions or deformities. Neck: Supple, Trachea midline. Respiratory: Clear to auscultation and percussion. No wheezing, rales or rhonchi. Cardiovascular: Heart sounds normal. No thrills. Regular rate and rhythm, no murmurs, rubs or gallops. Gastrointestinal: Abdomen soft, non-tender, non-distended. Normal bowel sounds. Neurologic: Cranial nerves II-XII grossly intact. Moves all extremities spontaneously. Sensation intact bilaterally. +left hemiparesis Skin: No rashes or lesions. No petechiae or purpura. No edema. Musculoskeletal: No cyanosis or clubbing. No gross deformities. Normal range of motion. Strength 4/5 left shoulder abduction, 4/5 left elbow flexion, 1/5 left wrist extension, 1/5 left finger flexion. Strength 4/5 left hip flexion and knee extension. Left dorsiflexion strength 1/5. CURRENT INPATIENT MEDICATIONS: Current Facility-Administered Medications: acetaminophen (TYLENOL) tablet 650 mg, 650 mg, oral, q6h PRN, BRAD Hicks, 650 mg at aluminum-magnesium hydroxide-simethicone (MAALOX) 200-200-20 mg/5 mL suspension 30 mL, 30 mL, oral,q4h PRN, BRAD Hicks, 30 mL at 05/06/24 0354 amLODIPine (NORVASC) tablet 10 mg, 10 mg, oral, Daily, BRAD Viramontes, 10 mg at 05/24/24 08 aspirin EC tablet 81 mg, 81 mg, oral, Daily, BRAD Hicks, 81 mg at 05/24/24 0808 atorvastatin (LIPITOR) tablet 10 mg, 10 mg, oral, Nightly, BRAD Viramontes cholecalciferol (VITAMIN D-3) tablet 2,000 Units, 2,000 Units, oral, Daily, Leah Philippe NP, 2,000 Units at 05/24/24 0809 clopidogreL (PLAVIX) tablet 75 mg, 75 mg, oral, Daily, BRAD Hicks, 75 mg at 05/24/24 0808 cyanocobalamin (VITAMIN B-12) tablet 1,000 mcg, 1,000 mcg, oral, Daily, Leah Philippe NP, 1,000 mcg at 05/24/24 0809 dextrose (D50W) 50% injection 12.5 g, 12.5 g, intravenous, q15 min PRN, BRAD Hicks dextrose (D50W) 50% injection 25 g, 25 g, intravenous, q15 min PRN, BRAD Hicks dextrose 15 gram/60 mL oral solution 15 g, 15 g, oral, q15 min PRN, BRAD Hicks dextrose 15 gram/60 mL oral solution 30 g, 30 g, oral, q15 min PRN, BRAD Hicks enoxaparin (LOVENOX) injection 40 mg, 40 mg, subcutaneous, q24h [facility], Leah Philippe NP, 40 mg at 05/24/24 0810 escitalopram (LEXAPRO) tablet 5 mg, 5 mg, oral, Daily, Neida Bailey DO, 5 mg at 05/24/24 1215 glipiZIDE (GLUCOTROL) tablet 5 mg, 5 mg, oral, q AM AC, BRAD Viramontes, 5 mg at 05/24/24 0809 Glucagon HCl (rDNA) injection 1 mg, 1 mg, intramuscular, Once PRN, BRAD Hicks hydrALAZINE (APRESOLINE) tablet 10 mg, 10 mg, oral, TID PRN, BRAD Viramontes insulin lispro injection 2-12 Units, 2-12 Units, subcutaneous, TID AC, Neida Bailey DO, 2 Units at 05/23/24 0754 magnesium hydroxide (MILK OF MAGNESIA) 400 mg/5 mL suspension 30 mL, 30 mL, oral, Daily PRN, BRAD Rojas, 30 mL at 04/23/24 0529 magnesium oxide (MAG-OX) tablet 400 mg, 400 mg, oral, BID, BRAD Viramontes, 400 mg at 810 metFORMIN (GLUCOPHAGE) tablet 500 mg, 500 mg, oral, BID with meals, Leah Philippe NP, 500 mg at 05/24/24 08 traMADoL (ULTRAM) tablet 25 mg, 25 mg, oral, q6h PRN, Radhika Barber NP, 25 mg at 05/06/242031 LABS: Lab Results Component Value Date WBC 7.5 05/22/2024 RBC 4.10 05/22/2024 HGB 11.9 05/22/2024 HCT 36.3 05/22/2024 MCV 89.6 05/22/2024 MCHC 32.8 05/22/2024 RDW 13.1 05/22/2024 PLT 297 05/22/2024 MPV 11.9 (H) 05/22/2024 NRBC 0.0 05/22/2024 DIFF Lab Results Component Value Date LYMPHOPCT 10.4 05/06/2024 NEUTROABS 7.49 (H) 05/06/2024 LYMPHSABS 0.92 (L) 05/06/2024 MONOABS 0.33 05/06/2024 EOSABS 0.02 05/06/2024 BASOSABS 0.02 05/06/2024 IMMGRANABS 0.03 05/06/2024 RETIC No results found for: RETIC , RETICCTPCT Lab Results Component Value Date NA 136 05/22/2024 K 4.1 05/22/2024 CL 104 05/22/2024 CO2 25 05/22/2024 GLUCOSE 95 05/24/2024 BUN 19 05/22/2024 CREATININE 0.77 05/22/2024 CALCIUM 9.2 05/22/2024 PROT 6.5 05/22/2024 ALBUMIN 3.2 05/22/2024 BILITOT 0.2 05/22/2024 AST 8 (L) 05/22/2024 ALT 24 05/22/2024 MG 1.7 (L) 05/22/2024 ALKPHOS 76 05/22/2024 CKTOTAL 31 05/13/2024 EGFR 96 05/22/2024 IMPRESSION & PLAN: #Impaired mobility and self care -secondary to CVA -continue PT, OT, LOGISTICIAN, and nursing care #Acute anterior right pontine stroke #Left hemiparesis #Dysarthria -Aspirin 81mg daily -Plavix 75mg daily -Atorvastatin 80mg nightly discontinued on 05/17 due to weakness and concern for possible myopathy which is unlikely --> restarted Atorvastatin 10mg nightly on 05/24 -CT head 05/07/24 showed subtle hypoattenuation in the rightward srinvias correlating with an infarct demonstrated on the comparison MRI, no acute hemorrhage or other acute superimposed findings -CTA head/neck from [facility] showed moderate to severe intracranial atherosclerotic disease which likely puts her at risk for further CVAs -05/09 due to continued worsening weakness MRI brain ordered also reached out to Dr Reynoso at [facility] to inform of changes in neurostatus --> no response from Dr Reynoso, MRI brain 05/10 redemonstrated prior known infarcts without acute abnormality -continue therapies -left AFO received and will continue use -f/u Neurology after discharge #Dysphagia -regular diet with thin liquids -continue LOGISTICIAN #Depression -Escitalopram 5mg daily started 05/24 #Hypertension -Lisinopril 10mg daily increased to 20mg daily on 04/25 --> discontinued 05/01 due to complaintsof itchiness to her throat -Amlodipine 5mg daily started 04/28 --> increased to 10mg daily on 05/24 #Diabetes mellitus type 2 -noncompliant with treatment prior to admission -continue diabetic education -will need glucometer and supplies on discharge -ISS -Lantus 22 units QHS decreased to 10 units QHS on 05/02 --> discontinued on 05/03 -Metformin 500mg BID started 04/28 -Glipizide 5mg daily started 05/03 #Hypomagnesemia -Magnesium oxide 400mg daily started 05/18 --> increased to 400mg BID on 05/22 #Bladder management -UA 05/06 negative for UTI -UA 05/16 negative for UTI #Bowel management -Colace and Senna discontinued on 05/01 due to loose stools -monitor #DVT prophylaxis: Lovenox 40mg daily * Sherri Rendon, MARIE - 05/24/2024 2:02 PM EST Speech Language Pathology Speech Language Pathology Treatment Subjective LOGISTICIAN Start Time: 1215 LOGISTICIAN Stop Time: 1300 LOGISTICIAN Time Calculation (min): 45 min Subjective: Pt was alert and sitting upright in bed for the session. Pt was pleasant and cooperative throughout the session. president practicing urologist Gisella, #[id number], was used for the session. Objective General Visit Info General Family/Caregiver Present: No Treatment Speech and Language Speech Treatment (Individual) Time Entry: 15 Speech: Pt was indep. w/ use of strategies during conversation and required no repetitions. Pt engaged in a conversation about her speech goals and reported that she feels like her speech is similar to baseline. Goal will be d/c. Cognitive Skills Therapeutic Interventions Cognitive Skills Direct Contact Time Entry: 30 Memory: Pt was tasked w/ recalling to-do [...] min A for use of cognitive strategies. Assessment/Plan LOGISTICIAN Assessment LOGISTICIAN Assessment Results: Cognitive impairments Evaluation/Treatment Tolerance: Patient tolerated treatment well Plan Treatment/Interventions: Cognitive linguistic functioning LOGISTICIAN Plan: Skilled LOGISTICIAN LOGISTICIAN Frequency: 5-7 days per week LOGISTICIAN Duration of Sessions: 30-60 min per session LOGISTICIAN Treatments per day: 1 time per day Goals Encounter Problems Encounter Problems (Active) Template: Speech Therapy Problem: Cognitive/Linguistics Dates: Start: 04/20/24 Goal: Patient will participate in further assessment of cognitive-linguistic skills (Resolved) Dates: Start: 04/20/24 Expected End: 05/04/24 Resolved: 05/01/24 Description: Goal Type: STG, Performance Level: Independent Outcomes Date/Time User Outcome 05/01/24 0920 Shayy Sanchez, LOGISTICIAN Completed Goal: Patient will identify and utilize problem-solving intervention for task completion at 90% accuracy given min A (Resolved) Dates: Start: 04/20/24 Expected End: 05/17/24 Resolved: 05/15/24 Description: Goal Type: STG, Performance Level: Min assist Outcomes Date/Time User Outcome 05/15/24 1515 Sherri Rendon, LOGISTICIAN Completed Goal: Patient will complete simple calculations for time/money management at 90% accuracy given Mauro Dates: Start: 04/20/24 Expected End: 05/31/24 Description: Goal Type: STG, Performance Level: Min assist Outcomes Date/Time User Outcome 05/24/24 1312 MARIE Arroyo Not Progressing Goal: Pt will improve intelligibility at the sentence/conversational level to baseline given min A for speech strategies. (Resolved) Dates: Start: 04/21/24 Expected End: 04/28/24 Resolved: 04/26/24 Description: Outcomes Date/Time User Outcome 04/26/24 1127 MARIE Arroyo Completed Goal: Pt will improve delayed recall of functional information given min A for encoding and min A for retrieval - 90% accuracy (Resolved) Dates: Start: 04/22/24 Expected End: 05/17/24 Resolved: 05/15/24 Description: Outcomes Date/Time User Outcome 05/15/24 1522 MARIE Arroyo Completed Goal: Pt will complete basic to mod level auditory/visual attention tasks - 90% accuracy given mod A. (Resolved) Dates: Start: 04/23/24 Expected End: 05/07/24 Resolved: 05/10/24 Description: Outcomes Date/Time User Outcome 05/10/24 1139 MARIE Arroyo Completed Goal: Pt will participate in sequencing/direction following tasks related to functional/ADL tasks given min A- 90% accuracy. Dates: Start: 04/24/24 Expected End: 05/29/24 Description: Outcomes Date/Time User Outcome 05/23/24 1457 MARIE Arroyo Not Progressing Goal: Pt will improve intelligibility at the paragraph/conversational level to baseline and independent w/ use of strategies (Resolved) Dates: Start: 04/26/24 Expected End: 05/24/24 Resolved: 05/24/24 Description: Outcomes Date/Time User Outcome 05/24/24 1312 MARIE Arroyo Completed Goal: Pt will complete mod to higher level auditory/visual attention tasks - 90% accuracy given Mauro. (Resolved) Dates: Start: 05/10/24 Expected End: 05/17/24 Resolved: 05/15/24 Description: Outcomes Date/Time User Outcome 05/15/24 1521 MARIE Arroyo Completed Goal: Pt will improve complex attention for visual and/or auditory tasks to 90% accuracy indep. w/ use of strategies Dates: Start: 05/15/24 Expected End: 05/29/24 Description: Outcomes Date/Time User Outcome 05/24/24 1312 MARIE Arroyo Progressing Goal: Pt will improve delayed recall of functional information given min A for encoding and indep. for retrieval - 90% accuracy Dates: Start: 05/15/24 Expected End: 05/29/24 Description: Outcomes Date/Time User Outcome 05/22/24 1527 MARIE Arroyo Progressing Goal: Pt will improve higher level problem-solving/reasoning skills to 90% with min A. Dates: Start: 05/15/24 Expected End: 05/29/24 Description: Outcomes Date/Time User Outcome 05/23/24 1456 MARIE Arroyo Not Progressing Encounter Problems (Resolved) Template: Speech Therapy Problem: Swallowing Dates: Start: 04/20/24 Resolved: 04/23/24 Goal: Patient will tolerate the least restrictive diet consistency to allow for safe consumption ofdaily meals (Resolved) Dates: Start: 04/20/24 Expected End: 05/04/24 Resolved: 04/23/24 Description: Outcomes Date/Time User Outcome 04/23/24 1253 MARIE Shrestha Completed Goal: Patient will demonstrate safe swallowing Intervention/techniques (Resolved) Dates: Start: 04/20/24 Expected End: 05/04/24 Resolved: 04/23/24 Description: Outcomes Date/Time User Outcome 04/23/24 1253 MARIE Shrestha Completed Education Documentation Speech/Language, taught by MARIE Arroyo at 05/24/2024 2:02 PM. Learner: Patient Readiness: Acceptance Method: Explanation Response: Verbalizes Understanding Cognition, taught by MARIE Arroyo at 05/24/2024 2:02 PM. Learner: Patient Readiness: Acceptance Method: Explanation Response: Verbalizes Understanding Education Comments No comments found. Associated attestation - Jen Duque SLP - 05/24/2024 7:07 PM EST I attest that Amber Rubin M.S.,[facility]-LOGISTICIAN, was physically involved in the ongoing assessment, decision making, and interventions provided during today's patient care session. I have reviewed all documentation for today's 05/24/24, entered by Speech Therapy Fellow, Sherri Rendon, and further attest that it is an accurate clinical record of today's encounter, including accurate and appropriate charges. * Bal Santizo - 05/24/2024 11:42 AM EST SPIRITUAL CARE Date/Time:05/24/24 at 11:42 AM EST Type of Visit:Referral Reason for Visit: Spiritual/Emotional Support Time Spent: 20 Minutes Location: [address] [place] [address] Sacramental Encounters: Communion Given Indicator: (When The Patient Asks.) Sacrament of Sick-Anointing: (When the Patient Asks.) Spiritual Distress Assessment: Spiritual Distress Assessment at beginning of visit Meaning - Overall Life Balance: Some evidence of unmet spiritual need Transcendence: Some evidence of unmet spiritual need Values - Acknowledgement: Some evidence of unmet spiritual need Values - Control: Some evidence of unmet spiritual need Psycho-Social Identity: Some evidence of unmet spiritual need SDAT Beginning of Visit Average Score: 1 Spiritual Distress Assessment at end of visit Meaning - Overall Life Balance: Some evidence of unmet spiritual need Transcendence: Some evidence of unmet spiritual need Values - Acknowledgement: Some evidence of unmet spiritual need Values - Control: Some evidence of unmet spiritual need Psycho-Social Identity: Some evidence of unmet spiritual need SDAT End of Visit Average Score: 1 Spiritual Assessment/Distress Spiritual Care Assessment: Assessment: Patient presented vulnerable, anxious, and tearful. The patient said that she is not used to having to be in bed-she said that she is usually a very active person. Patient has had multiple strokes in the last few months and is coming to terms with the medical issues that she is having. The patient is continuing to participate in the healing process and is cooperating in physical and occupational Therapy's. The Patient finds meaning, solace, and help in prayer. The Chief Physical Therapist led the patient in the traditional Yazidism Prayers-The Lord's Prayer, The Hail Marsha, and the Glory Be. The Patient was comforted by the Prayers offered. The Patient Has the Support of Her Family and Her friends. The Patient would benefit from daily visits from Spiritual Care Department. This is the Nurses and This chaplains Recommendation. Intervention: NE Spiritual Care Interventions : focus on the present, provided anxiety containment, provided support, explored hope, explored relational needs and resources, explored spiritual needs and resources,identify, evaluate, and reinforce appropriate coping strategies, advocated for patient/family, consulted with interdisciplinary team, cultivated a relationship of care and support, listened empathically, mediated conflict, provided hospitality, provided silent and supportive presence, provided prayer, provided orthodox resource, empowered Patient/Family, and relationship Guidance Outcomes: catharsis, distress reduced, expressed gratitude, and progressed toward meaning Plan of Care: Visit as needed *Reference: Spiritual Distress Assessment Tool: The SDAT is a clinical tool used by chaplains to identify unmet spiritual and emotional needs that can impact Goals of Care in the following categories: Spiritual Distress Assessment Legend Spiritual Needs Related Questions Meaning Are you having difficulties coping with what is happening to your now? Does your hospitalization have any repercussions on the way you live usually? Transcendence Do you have a particular episcopal, azalea, or spirituality? Is your episcopal/spirituality/azalea challenged by what is happening to you now? Values Do you think that the health professionals caring for you know you well enough? Do you feel that you are participating in the decisions made about your care? Psycho-Social Identity Do you have any worries or difficulties regarding your family or other persons close to you? Do you feel lonely? Do you have links to your azalea community? SCALE 0= no evidence of unmet spiritual needs 1= some evidence of unmet spiritual needs 2= substantial evidence of unmet spiritual needs 3= evidence of severe unmet spiritual needs * Joshua Tellez OT - 05/24/2024 10:00 AM EST [facility] Occupational Therapy Treatment Note 05/24/24 Patient: Amalia Ann : 1975 Age: 48 y.o. Gender: female Diagnosis: No Principal Problem: There is no principal problem currently on the Problem List. Please update the Problem List and refresh. Primary Rehab (Etiologic) Diagnosis: Patient Active Problem List Diagnosis HTN (hypertension) DM (diabetes mellitus) ([facility]/HCC) CVA (cerebral vascular accident) ([facility]) PMH: Past Medical History: Diagnosis Date CVA (cerebral vascular accident) (CMS/HCC) DM (diabetes mellitus) ([facility]) HTN (hypertension) PSH: History reviewed. No pertinent surgical history. Allergies: is allergic to lisinopril. Precautions: Precautions Medical Precautions: Fall Risk Safety Interventions: Call noriega within reach Swallow Precautions: (none) RUE Weight Bearing Status: Full LUE Weight Bearing Status: Full, As Tolerated RLE Weight Bearing Status: Full LLE Weight Bearing Status: Full Pain: Pt reporting L lateral neck soreness during reaching. Subjective: I want to go to the gym Procedures/Interventions: Balance/Neuromuscular Re-Education Neuromuscular Re-Education Time Entry: 70 E- Stim 10 minutes. E stim applied to L UE as parameters as follows; 10 second on time, 20 second off time, 25 PPS, asymmetrical waveform, synchronous cycling, 3 sec ramp time, 300 pulse width, for 10 minutes. Pads placed on wrist extensors. Good response during on time, however pt able to assume desired AROM during off time thus e stim turned off for remainder of activity Pt engaged in activity to target L AROM digit extension. Initially utilizing E stim, however pt able to assume extension during off time, thus e-stim turned off. Pt required initial cues and assist to stabilize UE when assuming digit extension during pre grasp phase. Pt able to grasp and transport stanley bags from table to bucket placed anteriorly, with assist occasionally for heavier stanley bags, progressing to entirely S. Pt able to maintain grasp on stanley bags during transportation. Limited wristextension during pre grasp phase. Overflow noted in R hand. Pt transported stanley bag X mass reps. Pt tasked with grasping suction cup items from table top, with L UE, with focus placed on thumb extension and elbow extension while reaching anteriorly to taller target to target proximal strengthening, for more functional reach. minimal cuing for triceps extension while reaching to target with good carryover. With assist to position pegs upright, pt tasked with grasping and then placing pegs into holes on peg bored. Initial [id number] to align pegs with hole, and pt occasionally repositioning peg in Lhand with R UE. Progressed task to pt retrieving pegs from bucket with L UE, utilizing R UE to reposition pegs in L hand for appropriate grasp due to no L in hand manipulation. Increased time for pt to place pegs into peg board. Mat full of pegs placed anteriorly oriented as vertical surface, and pt tasked with removing pegs, with focus placed on elbow extension. Pt able to removed all pegs with increased time and rest breaks taken throughout. Occasional assist to reposition mat to facilitate successful retrieval. Pt propelled self back to room S. Once back in room, pt set self up at bed in prep for txfer. SPT steadying A with R UE on bed rail. In elevated supine pt able to return demo 3/3 exercises with use of 1 lb dowel, dowel left in pt's room for completion of exercises over the weekend. [place] present to support pt, pt in bed with bed alarm on and call noriega in reach. OT Assessment OT Assessment OT Assessment Results: Decreased ADL status, Decreased upper extremity range of motion, Decreased upper extremity strength, Decreased safe judgment during ADL, Decreased fine motor control, Decreasedfunctional mobility, Decreased gross motor control, Decreased trunk control for functional activities Prognosis: Good Evaluation/Treatment Tolerance: Patient tolerated treatment well Comments: (Completed 90 min session well, with rest breaks taken for L UE fatigue. Pt continues toprogress with L UE AROM, with more AROM present distally this date.) OT Plan Plan Treatment Interventions: ADL retraining, Functional transfer training, Endurance training, UE strengthening/ROM, Equipment evaluation/education, Patient/family training, Fine motor coordination activities, Neuromuscular reeducation OT Plan: Skilled OT OT Frequency : 5-7 days per week OT Duration of Sessions: 60-90 min per session OT Treatments per day: 1 time per day OT - Evaluation Status: Complete Equipment Recommended: (TBD) Goals: Encounter Problems Encounter Problems (Active) Template: Occupational Therapy Problem: OT Chcf Goals Dates: Start: 04/20/24 Goal: Pt will be mod I with LB dressing Dates: Start: 04/20/24 Expected End: 05/18/24 Outcomes Date/Time User Outcome 05/12/24 1217 RICHIE Lucas Progressing Goal: Pt will be mod I with UB dressing Dates: Start: 04/20/24 Expected End: 05/18/24 Outcomes Date/Time User Outcome 05/12/247 RICHIE Lucas Progressing Goal: Pt will be S with bathing Dates: Start: 04/20/24 Expected End: 05/18/24 Outcomes Date/Time User Outcome 05/12/24 1217 RICHIE Lucas Progressing Goal: Pt will be mod I with toileting including txfer Dates: Start: 04/20/24 Expected End: 05/18/24 Outcomes Date/Time User Outcome 05/12/24 1217 RICHIE Lucas Progressing Goal: Pt will perform tub txfer with LRAD with S. Dates: Start: 04/20/24 Expected End: 05/18/24 Outcomes Date/Time User Outcome 05/12/241216 RICHIE Lucas Progressing Goal: Pt will be mod I with snack/beverage retrieval at LRAD Dates: Start: 04/20/24 Expected End: 05/18/24 Description: Outcomes Date/Time User Outcome 05/12/24RICHIE Guerin Progressing Problem: OT Short Term Goals Dates: Start: 05/15/24 Goal: Pt will perform toileting with steadying A with use of LRAD. Dates: Start: 05/15/24 Expected End: 05/22/24 Outcomes Date/Time User Outcome 05/23/24 145Sita Tellez OT Progressing Goal: Pt will perform LB dressing steadying A Dates: Start: 05/15/24 Expected End: 05/22/24 Outcomes Date/Time User Outcome 05/23/24 1452 Joshua Tellez OT Progressing Goal: Pt will perform UB dressing with PETERSON Dates: Start: 05/15/24 Expected End: 05/22/24 Outcomes Date/Time User Outcome 05/23/24 145Sita Tellez OT Progressing Goal: Pt will perform bathing with Steadying A for balance. Dates: Start: 05/15/24 Expected End: 05/22/24 Outcomes Date/Time User Outcome 05/23/24 145Sita Tellez OT Progressing Goal: Pt will utilize L UE gross assist during oral hygiene tasks. Dates: Start: 05/15/24 Expected End: 05/22/24 Outcomes Date/Time User Outcome 05/23/24 1452 Joshua Tellez OT Progressing Encounter Problems (Resolved) Template: Occupational Therapy Problem: OT Short Term Goals Dates: Start: 04/20/24 Resolved: 05/03/24 Goal: Pt will perform toileting with partial A (Resolved) Dates: Start: 04/20/24 Expected End: 04/27/24 Resolved: 05/03/24 Outcomes Date/Time User Outcome 05/03/24 140Angie Gray OT Completed Goal: Pt will perform LB dressing with partial A (Resolved) Dates: Start: 04/20/24 Expected End: 04/27/24 Resolved: 05/03/24 Outcomes Date/Time User Outcome 05/03/24 1407 Albina Gray OT Completed Goal: Pt will perform bathing with steadying A. (Resolved) Dates: Start: 04/20/24 Expected End: 04/27/24 Resolved: 05/03/24 Outcomes Date/Time User Outcome 05/03/24 1407 Albina Gray OT Completed Goal: Pt will be able to utilize L UE as an independent stabilizer during grooming tasks (Resolved) Dates: Start: 04/20/24 Expected End: 04/27/24 Resolved: 05/03/24 Outcomes Date/Time User Outcome 05/03/24 1407 Albina Gray OT Completed Goal: Pt will perform UB dressing with PETERSON, with carryover of tasha dressing technique (Resolved) Dates: Start: 04/20/24 Expected End: 04/27/24 Resolved: 05/03/24 Outcomes Date/Time User Outcome 05/03/24 Susan Gray OT Completed Education Documentation Home Exercise Program, taught by Joshua Tellez OT at 05/24/2024 11:26 AM. Learner: Patient Readiness: Acceptance Method: Explanation, Demonstration Response: Verbalizes Understanding, Demonstrated Understanding Body Mechanics, taught by Joshua Tellez OT at 05/24/2024 11:26 AM. Learner: Patient Readiness: Acceptance Method: Explanation, Demonstration Response: Verbalizes Understanding, Demonstrated Understanding Education Comments No comments found. Start/Stop Time OT Time Calculation OT Start Time: 1000 OT Stop Time: 1120 OT Time Calculation (min): 80 min Therapy Minutes: Occupational Therapy OT Individual: 80 * Elzbieta Garcia, PT - 05/24/2024 9:47 AM EST [facility] Physical Therapy Treatment Note 05/24/2024 Patient: Amalia Ann : 1975 Age: 48 y.o. Gender: female Primary Language: Barbadian Diagnosis: No Principal Problem: There is no principal problem currently on the Problem List. Please update the Problem List and refresh. Past Medical History: Diagnosis Date CVA (cerebral vascular accident) (CMS/HCC) DM (diabetes mellitus) (CMS/[facility]) HTN (hypertension) History reviewed. No pertinent surgical history. Allergies: is allergic to lisinopril. Precautions: Medical Precautions: Fall Risk Safety Interventions: Call noriega within reach Swallow Precautions: (none) RUE Weight Bearing Status: Full LUE Weight Bearing Status: Full, As Tolerated RLE Weight Bearing Status: Full LLE Weight Bearing Status: Full NURSING RECOMMENDATIONS Bed Mobility: Transfers: Ambulation: SUBJECTIVE Pt report: I am depressed. Pain:0/10 OBJECTIVE General Observation: Supine in bed agreeable to participating in PT session. Vitals: BP: (!) 140/83 Heart Rate: 74 SpO2: 97 % General/Functional Assessments: Procedure/Treatment: Therapeutic Activities: Therapeutic Activity Time Entry: 45 Patient in Bed agreeable to participating in therapy session. Pt completed supine to sitting EOB, steadying assistance. Video automatic embroidery machine tender [id number] used for therapy session. Therapist providing education on skin checks, education on skin break down with use of AFO. Pt performing skin check with SUP janel verse writer. Skin intact. Pt putting on straps of AFO. Pt giving this verse writer permission to call [facility] training. Pt completed WC mobility down to therapy gym x150ft SUP. Pt completedSTS to SBQC, pt ambulating partial A x1 2x20ft, pt with anterior LOB. On second gait trial, pt increasingly upset and tearful. Therapist and pt discussing, pts emotional lability. Pt endorsing she isfeeling sad and depressed. Pt denied SI, plan or intent. Education provided on resources within this setting for depression, pt agreeable to this verse writer updating Dr. Bailey. Dr. Bailey present to consult with pt, per Dr. Bailey asphalt plant worker Melinda cruz at this time. Therapist rescheduling therapy time d/t pt being increasingly tearful, pt appreciative of schedule change. Therapist updating Dr. Bailey, DINH Prieto of pts depression, RN Ida consulting spiritual care. Pt completed stand pivot transfer steadying assistance, therapist doffing AFO, skin intact. Pt left supine inbed, call noriega in reach, bed alarm on, all needs met. Therapist and Joshua OT using hop[employer] interpreting to call Aria with automatic embroidery machine tender [id number] for phone call. Trench Trimmer Fine leaving message, confirming family training Monday at 7:00am. Education: Education Documentation Mobility Training, taught by Elzbieta Garcia PT at 05/24/2024 12:09 PM. Learner: Patient Readiness: Acceptance Method: Explanation, Demonstration Response: Verbalizes Understanding, Demonstrated Understanding Comment: Depression, consult with Dr. Bailey. Education Comments No comments found. ASSESSMENT Dr. Bailey and DINH Prieto made aware of pts comments regarding depression. Equipment: TBD Plan of Care Plan Treatment/Interventions: (As per IE) PT Plan: Skilled PT PT Frequency: 5-7 days per week PT Duration of Sessions: 60-90 min per session PT Treatments per day: 1-2 times per day Equipment Recommended: TBD Barriers to Discharge: home environment, medical condition PT - Evaluation Status: Complete Problems/Goals Goals: Encounter Problems Encounter Problems (Active) Template: Physical Therapy Problem: PT Chcf Goals Dates: Start: 04/20/24 Goal: mod I bed mobility Dates: Start: 04/20/24 Expected End: 05/11/24 Outcomes Date/Time User Outcome 05/20/24 1002 Elzbieta Garcia PT Progressing Goal: mod I transfers with LAD Dates: Start: 04/20/24 Expected End: 05/11/24 Outcomes Date/Time User Outcome 05/20/24 1002 Elzbieta Garcia PT Progressing Goal: mod I wc mobility 150' Dates: Start: 04/20/24 Expected End: 05/11/24 Outcomes Date/Time User Outcome 05/20/24 1002 Elzbieta Garcia PT Progressing Goal: up/dn 4 flights of stairs min A Dates: Start: 04/20/24 Expected End: 05/11/24 Outcomes Date/Time User Outcome 05/20/24 1002 Elzbieta Garcia PT Progressing Goal: Ambulate x50ft LRAD SUP Dates: Start: 05/20/24 Outcomes Date/Time User Outcome 05/20/24 1002 Elzbieta Garcia PT Progressing Encounter Problems (Resolved) Template: Physical Therapy Problem: PT Short Term Goals Dates: Start: 04/20/24 Resolved: 05/20/24 Goal: Pt will perform bed mobility min A (Resolved) Dates: Start: 04/20/24 Expected End: 04/27/24 Resolved: 05/17/24 Outcomes Date/Time User Outcome 05/17/24 1403 Elzbieta Garcia PT Completed Goal: Pt will transfer with min A (Resolved) Dates: Start: 04/20/24 Expected End: 04/27/24 Resolved: 05/20/24 Outcomes Date/Time User Outcome 05/20/24 1001 Elzbieta Garcia PT Completed Goal: Pt will ambulate 25' with LAD mod A (Resolved) Dates: Start: 04/20/24 Expected End: 04/27/24 Resolved: 05/20/24 Outcomes Date/Time User Outcome 05/20/24 1001 Elzbieta Garcia PT Completed Goal: Assess stairs as appropriate (Resolved) Dates: Start: 04/20/24 Expected End: 04/27/24 Resolved: 05/06/24 Outcomes Date/Time User Outcome 05/06/24 1038 Elzbieta Garcia PT Completed Goal: Supervision wc mobility and mgmt 150' (Resolved) Dates: Start: 04/20/24 Expected End: 04/27/24 Resolved: 05/06/24 Description: Outcomes Date/Time User Outcome 05/06/24 1038 Elzbieta Garcia PT Completed Session Start/Stop Time: 829 914 Therapy Minutes Physical Therapy PT Individual: 45 * Isi Varghese RN - 05/24/2024 1:51 AM EST Problem: Cognitive: Domínguez Job Fall Risk Goal: Last Known Fall Outcome: Progressing Goal: Mobility requiring assistance of person or device Outcome: Progressing Goal: Dizziness Outcome: Progressing Goal: Medications Outcome: Progressing Goal: Mental Status/LOC/Awareness Outcome: Progressing Goal: Toileting Needs Outcome: Progressing Goal: Volume and Electrolyte Status Outcome: Progressing Goal: Communication/Sensory Outcome: Progressing Goal: Behavior Outcome: Progressing Problem: Skin Integrity: Pressure Injury Actual or Risk of Goal: Will not develop new pressure injury Outcome: Progressing Goal: Skin integrity will improve Outcome: Progressing Goal: Risk for impaired skin integrity will decrease Outcome: Progressing Problem: Activity:Pressure Injury Actual or Risk of Goal: Mobility will improve Outcome: Progressing Problem: Nutritional:Pressure Injury Actual or Risk of Goal: Nutritional status will improve Outcome: Progressing Problem: Patient Specific Problem: Pressure Injury Actual or Risk of Goal: Patient Specific Outcome Outcome: Progressing Problem: Cognitive/Linguistics Goal: Patient will complete simple calculations for time/money management at 90% accuracy given Mauro Description: Goal Type: STG, Performance Level: Min assist Outcome: Progressing Goals: Clinical Goals for the Shift: To stay free from falls. Identify possible barriers to meeting goals/advancing plan of care: Pt continues to work towards rehab goals Stability of the patient: Moderately Unstable - Medium risk of patient condition declining or worsening End of Shift Summary: Pt rang call noriega and requested assistance to BR. Denies pain. Bed alarm on. Bed locked/low. * Kaci Renteria RN - 05/23/2024 6:20 PM EST Goals: Clinical Goals for the Shift: To stay free from falls. To participate in glucometer teaching Identify possible barriers to meeting goals/advancing plan of care: language barrier Stability of the patient: Moderately Stable - Low risk of patient condition declining or worsening End of Shift Summary: Pt agreed to diabetes education- Pt able to return demo use of glucometer including loading and unloading lancing device and inserting and removing test strip. Min verbal cues needed- pt had natural instinct and has seen her dad use glucometer. Pt able to self apply drop of control solution onto strip and receive result. Target numbers before and after meals discussed and pt able to teach back. When to notify MD/PCP discussed regarding BG trends. Treatments and urgency discussed for management of low BG. Safe disposal pf lancets reviewed. Q and A opportunity provided. Pt stated confidence with this self care for home. Benefit of testing BG discussed as another method to help reduce risk of stroke . * Kaci Renteria RN - 05/23/2024 3:18 PM EST Goals: Clinical Goals for the Shift: To stay free from falls. Identify possible barriers to meeting goals/advancing plan of care: language barrier, weakness Stability of the patient: Moderately Stable - Low risk of patient condition declining or worsening End of Shift Summary: Pt very happy with AFO, but only for use with therapy per RPT as blanchable redness was noted and resolved with removal. PNO consulted by RPT. Pt environment safe. PHR * Sherri Rendon, MARIE - 05/23/2024 2:57 PM EST Speech Language Pathology Speech Language Pathology Treatment Subjective LOGISTICIAN Start Time: 1400 LOGISTICIAN Stop Time: 1440 LOGISTICIAN Time Calculation (min): 40 min Subjective: Pt was alert and sitting upright in bed for the session. Pt was pleasant and cooperative throughout the session. president practicing urologist Moisés, #[id number], was used for the session. Objective General Visit Info General Family/Caregiver Present: No Treatment Speech and Language Speech Treatment (Individual) Time Entry: 15 Speech: Pt was able to engage in a conversation w/ 90-100% inteligibility. The automatic embroidery machine tender did not ask for any repetitions. Pt was indep. w/ use of strategies. Cognitive Skills Therapeutic Interventions Cognitive Skills Direct Contact Time Entry: 25 Sequencing: Pt reported that she called to [...] transport to her a ppts. Memory: Pt reported that she had to make a lot of medical appts after she is d/c. Pt reported that she was worried about forgetting to make appts. Pt required mod A for using external memory aids to help w/ recall for after d/c. Attention/Concentration: Pt was able to complete attention tasks w/ playing cards w/ 90% accuracy given min A for use of cognitive strategies during tasks. Reasoning: Pt was able to answer hypothetical questions related to safety w/ 70% accuracy given Mauro for eleboration of responses and 100% given mod A for appropriate solutions. Assessment/Plan LOGISTICIAN Assessment LOGISTICIAN Assessment Results: Cognitive impairments Evaluation/Treatment Tolerance: Patient tolerated treatment well Plan Treatment/Interventions: Cognitive linguistic functioning LOGISTICIAN Plan: Skilled LOGISTICIAN LOGISTICIAN Frequency: 5-7 days per week LOGISTICIAN Duration of Sessions: 30-60 min per session LOGISTICIAN Treatments per day: 1 time per day LOGISTICIAN - Next Appointment: 05/24/24 Goals Encounter Problems Encounter Problems (Active) Template: Speech Therapy Problem: Cognitive/Linguistics Dates: Start: 04/20/24 Goal: Patient will participate in further assessment of cognitive-linguistic skills (Resolved) Dates: Start: 04/20/24 Expected End: 05/04/24 Resolved: 05/01/24 Description: Goal Type: STG, Performance Level: Independent Outcomes Date/Time User Outcome 05/01/24 0920 MARIE Shrestha Completed Goal: Patient will identify and utilize problem-solving intervention for task completion at 90% accuracy given min A (Resolved) Dates: Start: 04/20/24 Expected End: 05/17/24 Resolved: 05/15/24 Description: Goal Type: STG, Performance Level: Min assist Outcomes Date/Time User Outcome 05/15/24 1515 MARIE Arroyo Completed Goal: Patient will complete simple calculations for time/money management at 90% accuracy given Mauro Dates: Start: 04/20/24 Expected End: 05/31/24 Description: Goal Type: STG, Performance Level: Min assist Outcomes Date/Time User Outcome 05/23/24 0151 Isi Varghese RN Progressing Goal: Pt will improve intelligibility at the sentence/conversational level to baseline given min A for speech strategies. (Resolved) Dates: Start: 04/21/24 Expected End: 04/28/24 Resolved: 04/26/24 Description: Outcomes Date/Time User Outcome 04/26/24 1127 MARIE Arroyo Completed Goal: Pt will improve delayed recall of functional information given min A for encoding and min A for retrieval - 90% accuracy (Resolved) Dates: Start: 04/22/24 Expected End: 05/17/24 Resolved: 05/15/24 Description: Outcomes Date/Time User Outcome 05/15/24 1522 MARIE Arroyo Completed Goal: Pt will complete basic to mod level auditory/visual attention tasks - 90% accuracy given mod A. (Resolved) Dates: Start: 04/23/24 Expected End: 05/07/24 Resolved: 05/10/24 Description: Outcomes Date/Time User Outcome 05/10/24 1139 MARIE Arroyo Completed Goal: Pt will participate in sequencing/direction following tasks related to functional/ADL tasks given min A- 90% accuracy. Dates: Start: 04/24/24 Expected End: 05/29/24 Description: Outcomes Date/Time User Outcome 05/23/24 MARIE Catherine Not Progressing Goal: Pt will improve intelligibility at the paragraph/conversational level to baseline and independent w/ use of strategies Dates: Start: 04/26/24 Expected End: 05/24/24 Description: Outcomes Date/Time User Outcome 05/23/24 MARIE Medellin Progressing Goal: Pt will complete mod to higher level auditory/visual attention tasks - 90% accuracy given Mauro. (Resolved) Dates: Start: 05/10/24 Expected End: 05/17/24 Resolved: 05/15/24 Description: Outcomes Date/Time User Outcome 05/15/24 Ekaterina1 MARIE Arroyo Completed Goal: Pt will improve complex attention for visual and/or auditory tasks to 90% accuracy indep. w/ use of strategies Dates: Start: 05/15/24 Expected End: 05/29/24 Description: Outcomes Date/Time User Outcome 05/23/24 MARIE Medellin Progressing Goal: Pt will improve delayed recall of functional information given min A for encoding and indep. for retrieval - 90% accuracy Dates: Start: 05/15/24 Expected End: 05/29/24 Description: Outcomes Date/Time User Outcome 05/22/24 MARIE Daniel Progressing Goal: Pt will improve higher level problem-solving/reasoning skills to 90% with min A. Dates: Start: 05/15/24 Expected End: 05/29/24 Description: Outcomes Date/Time User Outcome 05/23/24 1456 MARIE Arroyo Not Progressing Encounter Problems (Resolved) Template: Speech Therapy Problem: Swallowing Dates: Start: 04/20/24 Resolved: 04/23/24 Goal: Patient will tolerate the least restrictive diet consistency to allow for safe consumption ofdaily meals (Resolved) Dates: Start: 04/20/24 Expected End: 05/04/24 Resolved: 04/23/24 Description: Outcomes Date/Time User Outcome 04/23/24 1253 MARIE Shrestha Completed Goal: Patient will demonstrate safe swallowing Intervention/techniques (Resolved) Dates: Start: 04/20/24 Expected End: 05/04/24 Resolved: 04/23/24 Description: Outcomes Date/Time User Outcome 04/23/24 1253 MARIE Shrestha Completed Education Documentation Speech/Language, taught by MARIE Arroyo at 05/23/2024 2:57 PM. Learner: Patient Readiness: Acceptance Method: Explanation Response: Verbalizes Understanding Cognition, taught by MARIE Arroyo at 05/23/2024 2:57 PM. Learner: Patient Readiness: Acceptance Method: Explanation Response: Verbalizes Understanding Education Comments No comments found. Associated attestation - Jen Duque SLP - 05/23/2024 10:08 PM EST I attest that I, Amber Duque M.S.,[facility]-LOGISTICIAN, was physically involved in the ongoing assessment, decision making, and interventions provided during today's patient care session. I have reviewed all documentation for today's 05/23/24, entered by Speech Therapy Fellow, Sherri Rendon, and furtherattest that it is an accurate clinical record of today's encounter, including accurate and appropriate charges. * Penelope Bob RD - 05/23/2024 2:50 PM EST 05/23/2024 @ 2:50 PM EST Nutrition Follow Up Note Reason for RD Intervention: Assessment Type: Follow-up Reason for Assessment: High MST Score Anthropometrics: Height: 158 cm (62.21 ) Weight: 69.6 kg (153 lb 6.4 oz) Weight Method: Actual BMI (Calculated): 27.9 BMI Class: Overweight IBW (lbs): 110 Current Diet and Supplements: Dietary Orders (From admission, onward) Start Ordered 04/25/24 0812 Adult diet [facility]; Cardiac, Diabetic; 60 gm carb/Meal; Cardiac Diet effective now Question Answer Comment Location [facility] Diet Type (req) Cardiac Diet Type (req) Diabetic Diabetic 60 gm carb/Meal Diet Type (cardiac) Cardiac 04/25/24 0811 History of presenting illness: Patient is a 48 y.o. female with a history of Past Medical History: Diagnosis Date CVA (cerebral vascular accident) ([facility]) DM (diabetes mellitus) ([facility]) HTN (hypertension) History reviewed. No pertinent surgical history. admitted 04/19/2024 with No Principal Problem: There is no principal problem currently on the Problem List. Please update the Problem List and refresh.. Weight History: Wt Readings from Last 10 Encounters: 05/18/24 69.6 kg (153 lb 6.4 oz) Subjective Assessment: Pt in with PT during time of attempted meeting today. Unable to speak with pt. Pt continues to havegood PO intake per clinical documentation clerk. Consuming 75-100% of meals. POCs well controlled. Last BM 05/22.Updated weight 153 lb (stable since admission). Nutrition-Related Lab Values: Results from last 7 days Lab Units 05/23/24 1125 05/22/24 0725 05/22/24 0552 SODIUM mmol/L -- -- 136 POTASSIUM mmol/L -- -- 4.1 MAGNESIUM mg/dL -- -- 1.7* CHLORIDE mmol/L -- -- 104 CO2 mmol/L -- -- 25 BUN mg/dL -- -- 19 CREATININE mg/dL -- -- 0.77 EGFR mL/min/1.73m2 -- -- 96 CALCIUM mg/dL -- -- 9.2 BILIRUBIN TOTAL mg/dL -- -- 0.2 ALK PHOS unit/L -- -- 76 ALT unit/L -- -- 24 AST unit/L -- -- 8* POCT GLUCOSE mg/dL 72 < > -- GLUCOSE mg/dL -- -- 121* WBC AUTO K/mcL -- -- 7.5 < > = values in this interval not displayed. No results found for: LIPASE Medications: [START ON 05/24/2024] amLODIPine, 10 mg, oral, Daily aspirin, 81 mg, oral, Daily cholecalciferol, 2,000 Units, oral, Daily clopidogreL, 75 mg, oral, Daily [START ON 05/24/2024] cyanocobalamin, 1,000 mcg, oral, Daily enoxaparin, 40 mg, subcutaneous, q24h KATIE glipiZIDE, 5 mg, oral, q AM AC insulin lispro, 2-12 Units, subcutaneous, TID AC magnesium oxide, 400 mg, oral, BID metFORMIN, 500 mg, oral, BID with meals CONTINUOUS: PRN medications: acetaminophen, aluminum-magnesium hydroxide-simethicone, dextrose 50%, dextrose 50%, dextrose, dextrose, glucagon injection, hydrALAZINE, magnesium hydroxide, traMADoL Energy Needs: Total Energy Estimated Needs: 4675-0132 kcal (20-25 kcal/kg actual weight), 70 g protein (1 g/kg actual weight), 4851-9571 mL (25-30 mL/kg actual weight) Height: 158 cm (62.21 ) Temp: 36.7 ??C (98.1 ??F) Food/Nutrition-Current Status: Intake Type: P.O. Appetite: Good Intake Amount (%): 75-100% Intake Assessment: Adequate Nutrition Focused Physical Findings: Overall Appearance: Unable to assess as pt in room with therapist with door closed Skin: No skin breakdown noted per wood tank erector Fluid Accumulation/Edema: Generalized (per clinical documentation clerk) Nutrition Diagnosis: Code Type: None Identified Status: Improvement Diagnosis: Altered Nutrition-Related Lab Values Etiology: Endocrine dysfunction Symptoms: POCs 92-280, A1C 12 Nutrition Interventions: Diet Order, Nutrition Education - Continue diet as ordered. - Meal preferences previously updated in [place] and relayed to diet office. - Previous provided nutrition education re: low sodium, carbohydrate controlled diet; will follow up and provide diet education reinforcement as needed. - Follow weights, labs, I/O. Goals: Patient will tolerate diet progression. , Patient will consume greater than or equal to 75% meals.,Monitor/control glucose levels, Maintain weight., Stooling appropriately., and Maintain skin integrity. Monitoring/Evaluation: Fluid/Beverage Intake, Food Intake, Weight, Diet Order Follow Up: Nutrition Priority Level: Low Please consult nutrition if needed sooner. RD remains available and will continue to follow. Signature: Penelope Bob RD * BRAD Chaudhari - 05/23/2024 12:54 PM EST Images from the original note were not included. [facility] Daily Progress Note Patient name: Amalia Ann : 1975 SUBJECTIVE: Patient seen and examined at bedside today. No acute events overnight. Denies headaches, dizziness,shortness of breath, chest pain, nausea, constipation, and pain. No new concerns today. She was happy she was able to walk up and down he patel without difficulty and brush her teeth and shower with minimal assistance OBJECTIVE: Vitals: 05/22/24 0815 05/22/24 1604 05/23/24 0137 05/23/24 0744 BP: (!) 140/74 (!) 144/79 (!) 147/71 (!) 141/75 BP Location: Right arm Right arm Right arm Patient Position: Sitting Lying Lying Pulse: 68 66 73 64 Resp: 16 18 18 Temp: 36.7 ??C (98.1 ??F) 36.4 ??C (97.5 ??F) 36.8 ??C (98.2 ??F) 36.7 ??C (98.1 ??F) TempSrc: Oral Temporal Oral Oral SpO2: 100% 100% 100% 100% Weight: Height: Physical Examination: General: Alert, in no acute cardiopulmonary distress. Mental Status: Oriented to person, place and time. Normal affect. Head: Normocephalic. Eyes: Extraocular muscles grossly intact. Ear, Nose and Throat: Oropharynx clear, mucous membranes moist. Ears and nose without masses, lesions or deformities. Neck: Supple, Trachea midline. Respiratory: Clear to auscultation and percussion. No wheezing, rales or rhonchi. Cardiovascular: Heart sounds normal. No thrills. Regular rate and rhythm, no murmurs, rubs or gallops. Gastrointestinal: Abdomen soft, non-tender, non-distended. Normal bowel sounds. Neurologic: Cranial nerves II-XII grossly intact. Moves all extremities spontaneously. Sensation intact bilaterally. +left hemiparesis Skin: No rashes or lesions. No petechiae or purpura. No edema. Musculoskeletal: No cyanosis or clubbing. No gross deformities. Normal range of motion. Strength 4/5 left shoulder abduction, 4/5 left elbow flexion, 1/5 left wrist extension, 1/5 left finger flexion. Strength 4/5 left hip flexion and knee extension. Left dorsiflexion strength 1/5. CURRENT INPATIENT MEDICATIONS: Current Facility-Administered Medications: acetaminophen (TYLENOL) tablet 650 mg, 650 mg, oral, q6h PRN, BRAD Hicks, 650 mg at aluminum-magnesium hydroxide-simethicone (MAALOX) 200-200-20 mg/5 mL suspension 30 mL, 30 mL, oral,q4h PRN, BRAD Hicks, 30 mL at 05/06/24 0354 [START ON 05/24/2024] amLODIPine (NORVASC) tablet 10 mg, 10 mg, oral, Daily, BRAD Viramontes aspirin EC tablet 81 mg, 81 mg, oral, Daily, BRAD Hicks, 81 mg at 05/23/24 0800 cholecalciferol (VITAMIN D-3) tablet 2,000 Units, 2,000 Units, oral, Daily, Leah Philippe NP, 2,000 Units at 05/23/24 0759 clopidogreL (PLAVIX) tablet 75 mg, 75 mg, oral, Daily, BRAD Hicks, 75 mg at 05/23/24 0800 [START ON 05/24/2024] cyanocobalamin (VITAMIN B-12) tablet 1,000 mcg, 1,000 mcg, oral, Daily, Leah Philippe NP dextrose (D50W) 50% injection 12.5 g, 12.5 g, intravenous, q15 min PRN, BRAD Hicks dextrose (D50W) 50% injection 25 g, 25 g, intravenous, q15 min PRN, BRAD Hicks dextrose 15 gram/60 mL oral solution 15 g, 15 g, oral, q15 min PRN, BRAD Hicks dextrose 15 gram/60 mL oral solution 30 g, 30 g, oral, q15 min PRN, BRAD Hicks enoxaparin (LOVENOX) injection 40 mg, 40 mg, subcutaneous, q24h KATIE, Leah Philippe NP, 40 mg at 05/23/24 0801 glipiZIDE (GLUCOTROL) tablet 5 mg, 5 mg, oral, q AM AC, BRAD Viramontes, 5 mg at 05/23/24 0755 Glucagon HCl (rDNA) injection 1 mg, 1 mg, intramuscular, Once PRN, BRAD Hicks hydrALAZINE (APRESOLINE) tablet 10 mg, 10 mg, oral, TID PRN, BRAD Viramontes insulin lispro injection 2-12 Units, 2-12 Units, subcutaneous, TID AC, Neida Bailey, DO, 2 Units at 05/23/24 0754 magnesium hydroxide (MILK OF MAGNESIA) 400 mg/5 mL suspension 30 mL, 30 mL, oral, Daily PRN, BRAD Rojas, 30 mL at 04/23/24 0529 magnesium oxide (MAG-OX) tablet 400 mg, 400 mg, oral, BID, BRAD Viramontes, 400 mg at 800 metFORMIN (GLUCOPHAGE) tablet 500 mg, 500 mg, oral, BID with meals, Leah Philippe NP, 500 mg at 05/23/24 0754 traMADoL (ULTRAM) tablet 25 mg, 25 mg, oral, q6h PRN, Radhika Barber NP, 25 mg at 05/06/242031 LABS: Lab Results Component Value Date WBC 7.5 05/22/2024 RBC 4.10 05/22/2024 HGB 11.9 05/22/2024 HCT 36.3 05/22/2024 MCV 89.6 05/22/2024 MCHC 32.8 05/22/2024 RDW 13.1 05/22/2024 PLT 297 05/22/2024 MPV 11.9 (H) 05/22/2024 NRBC 0.0 05/22/2024 DIFF Lab Results Component Value Date LYMPHOPCT 10.4 05/06/2024 NEUTROABS 7.49 (H) 05/06/2024 LYMPHSABS 0.92 (L) 05/06/2024 MONOABS 0.33 05/06/2024 EOSABS 0.02 05/06/2024 BASOSABS 0.02 05/06/2024 IMMGRANABS 0.03 05/06/2024 RETIC No results found for: RETIC , RETICCTPCT Lab Results Component Value Date NA 136 05/22/2024 K 4.1 05/22/2024 CL 104 05/22/2024 CO2 25 05/22/2024 GLUCOSE 72 05/23/2024 BUN 19 05/22/2024 CREATININE 0.77 05/22/2024 CALCIUM 9.2 05/22/2024 PROT 6.5 05/22/2024 ALBUMIN 3.2 05/22/2024 BILITOT 0.2 05/22/2024 AST 8 (L) 05/22/2024 ALT 24 05/22/2024 MG 1.7 (L) 05/22/2024 ALKPHOS 76 05/22/2024 CKTOTAL 31 05/13/2024 EGFR 96 05/22/2024 IMPRESSION & PLAN: #Impaired mobility and self care -secondary to CVA -continue PT, OT, LOGISTICIAN, and nursing care #Acute anterior right pontine stroke #Left hemiparesis #Dysarthria -Aspirin 81mg daily -Plavix 75mg daily -Atorvastatin 80mg nightly discontinued on 05/17 due to weakness, monitor -CT head 05/07/24 There is subtle hypoattenuation in the rightward srinivas correlating with an infarctdemonstrated on the comparison MRI. No acute hemorrhage or other acute superimposed findings. -05/09 due to continued worsening weakness MRI brain ordered also reached out to Dr Reynoso at [facility] to inform of changes in neurostatus --> no response from Dr Reynoso, MRI brain 05/10 redemonstrated prior known infarcts -continue therapies -P&O consulted for left AFO -f/u Neurology after discharge #Dysphagia -regular diet with thin liquids -continue LOGISTICIAN #Hypertension -Lisinopril 10mg daily increased to 20mg daily on 04/25 --> discontinued 05/01 due to complaintsof itchiness to her throat -Amlodipine 5mg daily started 04/28 #Diabetes mellitus type 2 -noncompliant with treatment prior to admission -continue diabetic education -will need glucometer and supplies on discharge -ISS -Lantus 22 units QHS decreased to 10 units QHS on 05/02 --> discontinued on 05/03 -Metformin 500mg BID started 04/28 -Glipizide 5mg daily started 05/03 #Hypomagnesemia -Magnesium oxide 400mg daily started 05/18 #Bladder management -UA 05/06 negative for UTI -UA 05/16 negative for UTI #Bowel management -Colace and Senna discontinued on 05/01 due to loose stools -monitor #DVT prophylaxis: Lovenox 40mg daily Associated attestation - Neida Bailey DO - 05/24/2024 2:59 PM EST Agree with progress note, assessment, and plan as documented by PA today. * Joshua Tellez, BRANNON - 05/23/2024 12:30 PM EST [facility] Occupational Therapy Treatment Note 05/23/24 Patient: Amalia Ann : 1975 Age: 48 y.o. Gender: female Diagnosis: No Principal Problem: There is no principal problem currently on the Problem List. Please update the Problem List and refresh. Primary Rehab (Etiologic) Diagnosis: Patient Active Problem List Diagnosis HTN (hypertension) DM (diabetes mellitus) (CMS/HCC) CVA (cerebral vascular accident) (CMS/HCC) PMH: Past Medical History: Diagnosis Date CVA (cerebral vascular accident) (CMS/HCC) DM (diabetes mellitus) (CMS/HCC) HTN (hypertension) PSH: History reviewed. No pertinent surgical history. Allergies: is allergic to lisinopril. Precautions: Precautions Medical Precautions: Fall Risk Safety Interventions: Call noriega within reach RUE Weight Bearing Status: Full LUE Weight Bearing Status: Full, As Tolerated RLE Weight Bearing Status: Full LLE Weight Bearing Status: Full Pain: pt reporting low back pain post laying supine, which pt reports is baseline. Subjective: I wanted to practice walking to the bathroom. Procedures/Interventions: ADLs/IADLs Self Care/Home Management (ADLs) Time Entry: 60 Pt in elevated supine upon arrival, agreeable to shower. Elevated supine>sit EOB S. Seated EOB pt donned L LE AFO with touching A to tighten strap. Assist to tie AFO shoe. Pt donned R shoe S with elastic laces. Pt performed functional amb into bathroom at [facility] steadying A. Pt with no need to toilet, reporting she just wanted to practice. Steadying A amb with SBQC in hallway to shower stall stea dying A, with one instance of knee bucking, however pt able to self correct. Once at tub bench pt doffed LB clothing with steadying A. Pt able to doffed R shoe/sock and L shoe/afo, with assist to untie. Pt doffed UB clothing with clean up assist. Pt bathe mainly seated on tub bench with use of handheld shower. Pt utilizing L UE intermittently throughout, cues for incorporating. Pt able to shave R LE, assist to shave L LE, and R/L underarm. Pt washed hair, with assist for pump soap container only. Post shower pt dressed in lopez to return to room. Functional amb back to room with SBQC steadying, cues for pacing. Pt retrieved clothing from closet, opening drawers with L UE. Pt tasked with tr ansporting clothing via R UE adduction, bracing against side. Seated EOB pt dressed UB with mod I. Pt applied Deoderant to B underarms touching A (L UE), with use of B UE, cues for incorporating L UE. Pt able to thread B Les through pants, seated. SBA in stand to hike over hips. Skin check performed by pt post removal of AFO. Functional amb to sink at SBQC steadying A, pt performed oral hygiene in stand at sink with SBA/steadying A, with cues for L UE use to maximize independence. Pt propelled self to gym S. Pt performed SPT w/c><toilet steadying A with UE support on grab bar. Pt hiked pants up/down with SBA with use of B UEs. Pt performed valerie hygiene seated. Hand hygiene performed w/c level Balance/Neuromuscular Re-Education Neuromuscular Re-Education Time Entry: 30 SPT w/c><mat steadying A. Sit<>supine S. In supine with 1 lb dowel for AAROM to increase LUE strength and AROM, pt performed 10 reps X3 of shoulder flexion to 90 degrees and chest press with good symmetry and demoing ability to maintain L UE grasp throughout. L triceps extension with 1 lb wrist weigh with assist to stabilize elbow only. Rest breaks taken throughout. Once back in room SPT w/c>bed steadying A. Sit>Supine S. Bed alarm on, call noriega in reach, and all needs met. OT Assessment OT Assessment OT Assessment Results: Decreased ADL status, Decreased upper extremity range of motion, Decreased upper extremity strength, Decreased safe judgment during ADL, Decreased fine motor control, Decreasedfunctional mobility, Decreased gross motor control, Decreased trunk control for functional activities Prognosis: Good Evaluation/Treatment Tolerance: Patient tolerated treatment well Comments: (Completed 90 min session. Pt with increased INDEPENDENce with functional mobility this date with use of AFO. Pt continues to progress with self care tasks.) OT Plan Plan Treatment Interventions: ADL retraining, Functional transfer training, Endurance training, UE strengthening/ROM, Equipment evaluation/education, Patient/family training, Fine motor coordination activities, Neuromuscular reeducation OT Plan: Skilled OT OT Frequency : 5-7 days per week OT Duration of Sessions: 60-90 min per session OT Treatments per day: 1 time per day OT - Evaluation Status: Complete Equipment Recommended: (TBD) Goals: Encounter Problems Encounter Problems (Active) Template: Occupational Therapy Problem: OT Membership Manager Goals Dates: Start: 04/20/24 Goal: Pt will be mod I with LB dressing Dates: Start: 04/20/24 Expected End: 05/18/24 Outcomes Date/Time User Outcome 05/12/24 1217 RICHIE Lucas Progressing Goal: Pt will be mod I with UB dressing Dates: Start: 04/20/24 Expected End: 05/18/24 Outcomes Date/Time User Outcome 05/12/247 RICHIE Lucas Progressing Goal: Pt will be S with bathing Dates: Start: 04/20/24 Expected End: 05/18/24 Outcomes Date/Time User Outcome 05/12/247 RICHIE Lucas Progressing Goal: Pt will be mod I with toileting including txfer Dates: Start: 04/20/24 Expected End: 05/18/24 Outcomes Date/Time User Outcome 05/12/241216 RICHIE Lucas Progressing Goal: Pt will perform tub txfer with LRAD with S. Dates: Start: 04/20/24 Expected End: 05/18/24 Outcomes Date/Time User Outcome 05/12/241216 RICHIE Lucas Progressing Goal: Pt will be mod I with snack/beverage retrieval at LRAD Dates: Start: 04/20/24 Expected End: 05/18/24 Description: Outcomes Date/Time User Outcome 05/12/241216 RICHIE Lucas Progressing Problem: OT Short Term Goals Dates: Start: 05/15/24 Goal: Pt will perform toileting with steadying A with use of LRAD. Dates: Start: 05/15/24 Expected End: 05/22/24 Outcomes Date/Time User Outcome 05/23/24 145Sita Tellez OT Progressing Goal: Pt will perform LB dressing steadying A Dates: Start: 05/15/24 Expected End: 05/22/24 Outcomes Date/Time User Outcome 05/23/24 Felipe Tellez OT Progressing Goal: Pt will perform UB dressing with PETERSON Dates: Start: 05/15/24 Expected End: 05/22/24 Outcomes Date/Time User Outcome 05/23/24 Felipe Tellez OT Progressing Goal: Pt will perform bathing with Steadying A for balance. Dates: Start: 05/15/24 Expected End: 05/22/24 Outcomes Date/Time User Outcome 05/23/24 145Sita Tellez OT Progressing Goal: Pt will utilize L UE gross assist during oral hygiene tasks. Dates: Start: 05/15/24 Expected End: 05/22/24 Outcomes Date/Time User Outcome 05/23/24 Felipe Tellez OT Progressing Encounter Problems (Resolved) Template: Occupational Therapy Problem: OT Short Term Goals Dates: Start: 04/20/24 Resolved: 05/03/24 Goal: Pt will perform toileting with partial A (Resolved) Dates: Start: 04/20/24 Expected End: 04/27/24 Resolved: 05/03/24 Outcomes Date/Time User Outcome 05/03/24 140Angie Gray OT Completed Goal: Pt will perform LB dressing with partial A (Resolved) Dates: Start: 04/20/24 Expected End: 04/27/24 Resolved: 05/03/24 Outcomes Date/Time User Outcome 05/03/24 Susan Gray OT Completed Goal: Pt will perform bathing with steadying A. (Resolved) Dates: Start: 04/20/24 Expected End: 04/27/24 Resolved: 05/03/24 Outcomes Date/Time User Outcome 05/03/24 Susan Gray OT Completed Goal: Pt will be able to utilize L UE as an independent stabilizer during grooming tasks (Resolved) Dates: Start: 04/20/24 Expected End: 04/27/24 Resolved: 05/03/24 Outcomes Date/Time User Outcome 05/03/24 Susan Gray OT Completed Goal: Pt will perform UB dressing with PETERSON, with carryover of tasha dressing technique (Resolved) Dates: Start: 04/20/24 Expected End: 04/27/24 Resolved: 05/03/24 Outcomes Date/Time User Outcome 05/03/24 Susan Gray OT Completed Education Documentation Safe Use of DME, taught by Joshua Tellez OT at 05/23/2024 2:54 PM. Learner: Patient Readiness: Acceptance Method: Explanation, Demonstration, Trench Trimmer Fine Response: Demonstrated Understanding, Verbalizes Understanding, Needs Reinforcement ADL Training, taught by Joshua Tellez OT at 05/23/2024 2:54 PM. Learner: Patient Readiness: Acceptance Method: Explanation, Demonstration, Trench Trimmer Fine Response: Demonstrated Understanding, Verbalizes Understanding, Needs Reinforcement Body Mechanics, taught by Joshua Tellez OT at 05/23/2024 2:54 PM. Learner: Patient Readiness: Acceptance Method: Explanation, Demonstration, Trench Trimmer Fine Response: Demonstrated Understanding, Verbalizes Understanding, Needs Reinforcement Skin Care/Pressure Ulcer Prevention, taught by Joshua Tellez OT at 05/23/2024 2:54 PM. Learner: Patient Readiness: Acceptance Method: Explanation, Demonstration, Trench Trimmer Fine Response: Demonstrated Understanding, Verbalizes Understanding, Needs Reinforcement Education Comments No comments found. Start/Stop Time OT Time Calculation OT Start Time: 1230 OT Stop Time: 1400 OT Time Calculation (min): 90 min Therapy Minutes: Occupational Therapy OT Individual: 90 * Elzbietacollin Garcia, PT - 05/23/2024 12:19 PM EST [facility] Physical Therapy Treatment Note 05/23/2024 Patient: Amalia Ann : 1975 Age: 48 y.o. Gender: female Primary Language: Barbadian Diagnosis: No Principal Problem: There is no principal problem currently on the Problem List. Please update the Problem List and refresh. Past Medical History: Diagnosis Date CVA (cerebral vascular accident) ([facility]/HCC) DM (diabetes mellitus) ([facility]) HTN (hypertension) History reviewed. No pertinent surgical history. Allergies: is allergic to lisinopril. Precautions: Medical Precautions: Fall Risk Safety Interventions: Call noriega within reach Swallow Precautions: Modified Diet RUE Weight Bearing Status: Full LUE Weight Bearing Status: Full, As Tolerated RLE Weight Bearing Status: Full LLE Weight Bearing Status: Full SUBJECTIVE Pt report: This is good Pain: Pain with AFO and sneaker donned. OBJECTIVE General Observation: Supine in bed agreeable to participating in therapy session. General/Functional Assessments: Procedure/Treatment: Neuromuscular Reeducation: Balance/Neuromuscular Re-Education Neuromuscular Re-Education Time Entry: 90 Patient in Bed agreeable to participating in therapy session. Video automatic embroidery machine tender used for therapy session [id number] used for therapy session. Therapist performing skin check, education on performing skincheck pre and post wearing AFO. Pt with Toe off AFO from vendor. Therapist assisting in donning AFOon sneaker, pt with c/o of pain on lateral aspect of LLE, therapist unable to have pt wear AFO and s neaker. Pt completed WC mobility SUP to therapy gym. Pt trialing ambulation x10ft with SBQC and AFOand sneaker donned, increased pain on dorsal aspect of LLE.. Therapist performing skin check mild reddness on dosal aspect of LLE, blanchable. Therapist donning wider shoe on LLE, pt did not endorse pain with new shoe. Pt completed 3x30ft of ambulation steadying assistance with SBQC, improvement infoot clearance, step through and step to pattern. Pt completed x2 FOS seated rest breaks between FOS, steadying assistance for activity, improvement in foot clearance. Pt ascending forwards, descending backwards with with increased knee flexion descending stairs, but able to self correct for increased knee flexion on descent. Pt ambulating x30ft no AD partial A x1 and SBA x1 with AFO donned, pt with step to and step through gait pattern. Therapist doffing AFO, small area of blanchable redness noted along lateral dorsal aspect of LLE. Therapist providing education on importance of skin checks with AFO. Education on wear schedule to improve tolerance to AFO. Education pt needing to obtain newshoes for AFO, pt verbalized understanding. Therapist recommending pt does not wear AFO with staff at this time, pt verbalized understanding. Pt completed x2 stand pivot transfers no AFO, no AD, steadying assistance. Pt completed WC mobility back to room SUP, pt with poor WC mobility. Pt completed s tand pivot transfer from WC to EOB, steadying assistance, SUP bed mobility. Therapist educated RN Ida made aware, pt to not wear AFO with staff, updated on blanchable redness with AFO. Pt left supine in bed, call noriega in reach, bed alarm on, all needs met. Education: Education Documentation Mobility Training, taught by Elzbieta Garcia, PT at 05/23/2024 2:01 PM. Learner: Patient Readiness: Acceptance Method: Explanation, Demonstration Response: Demonstrated Understanding, Verbalizes Understanding, Needs Reinforcement Comment: AFO, skin checks. Education Comments No comments found. ASSESSMENT Pt to benefit from continued gait training with AFO donned. P and O consulted d/t fit of AFO in shoe. Equipment: Toe off AFO Plan of Care Plan Treatment/Interventions: (As per IE) PT Plan: Skilled PT PT Frequency: 5-7 days per week PT Duration of Sessions: 60-90 min per session PT Treatments per day: 1-2 times per day Equipment Recommended: TBD Barriers to Discharge: home environment, medical condition PT - Evaluation Status: Complete Problems/Goals Goals: Encounter Problems Encounter Problems (Active) Template: Physical Therapy Problem: PT Chcf Goals Dates: Start: 04/20/24 Goal: mod I bed mobility Dates: Start: 04/20/24 Expected End: 05/11/24 Outcomes Date/Time User Outcome 05/20/24 1002 Elzbieta Garcia PT Progressing Goal: mod I transfers with LAD Dates: Start: 04/20/24 Expected End: 05/11/24 Outcomes Date/Time User Outcome 05/20/24 1002 Elzbieta Garcia PT Progressing Goal: mod I wc mobility 150' Dates: Start: 04/20/24 Expected End: 05/11/24 Outcomes Date/Time User Outcome 05/20/24 1002 Elzbieta Garcia PT Progressing Goal: up/dn 4 flights of stairs min A Dates: Start: 04/20/24 Expected End: 05/11/24 Outcomes Date/Time User Outcome 05/20/24 1002 Elzbieta Garcia PT Progressing Goal: Ambulate x50ft LRAD SUP Dates: Start: 05/20/24 Outcomes Date/Time User Outcome 05/20/24 1002 Elzbieta Garcia PT Progressing Encounter Problems (Resolved) Template: Physical Therapy Problem: PT Short Term Goals Dates: Start: 04/20/24 Resolved: 05/20/24 Goal: Pt will perform bed mobility min A (Resolved) Dates: Start: 04/20/24 Expected End: 04/27/24 Resolved: 05/17/24 Outcomes Date/Time User Outcome 05/17/24 1403 Elzbieta Garcia PT Completed Goal: Pt will transfer with min A (Resolved) Dates: Start: 04/20/24 Expected End: 04/27/24 Resolved: 05/20/24 Outcomes Date/Time User Outcome 05/20/24 1001 Elzbieta Garcia PT Completed Goal: Pt will ambulate 25' with LAD mod A (Resolved) Dates: Start: 04/20/24 Expected End: 04/27/24 Resolved: 05/20/24 Outcomes Date/Time User Outcome 05/20/24 1001 Elzbieta Garcia PT Completed Goal: Assess stairs as appropriate (Resolved) Dates: Start: 04/20/24 Expected End: 04/27/24 Resolved: 05/06/24 Outcomes Date/Time User Outcome 05/06/24 1038 Elzbieta Garcia, PT Completed Goal: Supervision wc mobility and mgmt 150' (Resolved) Dates: Start: 04/20/24 Expected End: 04/27/24 Resolved: 05/06/24 Description: Outcomes Date/Time User Outcome 05/06/24 1038 Elzbitea Garcia PT Completed Session Start/Stop Time: 1000 1130 Therapy Minutes Physical Therapy PT Individual: 90 * BRAD Viramontes - 05/23/2024 12:17 PM EST Images from the original note were not included. VEE PROGRESS NOTE Date: 05/23/2024 Author: BRAD Viramontes Patient ID: Amalia Ann is a 48 y.o. female : 1975 MR#: [id number] SUBJECTIVE Pt seen, no c/o. She states that her left side is improving. She denies any worsening symptoms. Sheis trying to drink more fluids. amLODIPine, 5 mg, oral, Daily aspirin, 81 mg, oral, Daily cholecalciferol, 2,000 Units, oral, Daily clopidogreL, 75 mg, oral, Daily [START ON 05/24/2024] cyanocobalamin, 1,000 mcg, oral, Daily enoxaparin, 40 mg, subcutaneous, q24h KATIE glipiZIDE, 5 mg, oral, q AM AC insulin lispro, 2-12 Units, subcutaneous, TID AC magnesium oxide, 400 mg, oral, BID metFORMIN, 500 mg, oral, BID with meals PRN medications: acetaminophen, aluminum-magnesium hydroxide-simethicone, dextrose 50%, dextrose 50%, dextrose, dextrose, glucagon injection, hydrALAZINE, magnesium hydroxide, traMADoL ROS: CHEST: no sob, coughing HEART: no chest pain, orthopnea GI: no abd pain, or N/V. : No dysuria or frequency EXT: no leg pain or swelling Neuro as above OBJECTIVE Vitals: 05/22/24 0815 05/22/24 1604 05/23/24 0137 05/23/24 0744 BP: (!) 140/74 (!) 144/79 (!) 147/71 (!) 141/75 BP Location: Right arm Right arm Right arm Patient Position: Sitting Lying Lying Pulse: 68 66 73 64 Resp: 16 18 18 Temp: 36.7 ??C (98.1 ??F) 36.4 ??C (97.5 ??F) 36.8 ??C (98.2 ??F) 36.7 ??C (98.1 ??F) TempSrc: Oral Temporal Oral Oral SpO2: 100% 100% 100% 100% Weight: Height: Physical exam General: AAO NAD HEENT: pupils are equal round and reactive. extraocular movements are grossly intact lungs clear to auscultation, no wheezing or crackles noted heart regular rate and rhythm, no murmur or rubs abdomen soft nontender nondistended positive bowel sounds Musculoskeletal: No gross deformity to joints extremities without edema, erythema or calf tenderness neuro: Left-sided weakness, dysarthria improving skin: no rashes or lesions. psych: mood stable appearing, good eye contact. LABS HEMATOLOGY Lab Results Component Value Date WBC 7.5 05/22/2024 HGB 11.9 05/22/2024 HCT 36.3 05/22/2024 MCV 89.6 05/22/2024 PLT 297 05/22/2024 CHEMISTRY Lab Results Component Value Date GLUCOSE 72 05/23/2024 NA 136 05/22/2024 K 4.1 05/22/2024 CO2 25 05/22/2024 CL 104 05/22/2024 BUN 19 05/22/2024 CREATININE 0.77 05/22/2024 EGFR 96 05/22/2024 CALCIUM 9.2 05/22/2024 MG 1.7 (L) 05/22/2024 ANIONGAP 7 05/22/2024 Imaging: MR Brain wo Contrast Addendum: ADDENDUM: This report was discussed with Neto TAO on May 10, 2024 01:13:00 EST. This document has been electronically signed by: Yuly Cleveland on 05/10/2024 01:14:01 Narrative: MRI BRAIN WITHOUT CONTRAST COMPARISON: CT brain [...] dimensions are difficult to quantify but a pharmaceutical representative measurement on image 21 of series 3 is 1.2 x 0.5 cm. On images 22-23 of series 3 is an area of restricted diffusion in the midline and right paracentral region of the srinivas, also compatible with an acute infarct. This is also difficult to accurately measure but a pharmaceutical representative measurement on image 22 is approximately [...] collection. Clivus and craniocervical junction are unremarkable. Impression: 1. The patient has a reported history [...] by: Krishan Oden M.D. on 05/10/2024 01:06:25 ASSESSMENT & PLAN Anterior right pontine stroke Patient had a recent small right pontine CVA on 03/26 and is on aspirin and Plavix. Now with new anterior right pontine stroke Suspect secondary to intrinsic atherosclerotic disease likely compensation/benefits specialist now occluded CTA shows right V4 high-grade stenosis consistent with right hemispheric stroke per neurology. MRI of the brain showed acute subacute right pontine infarct without hemorrhagic transformation. Prior stroke workup with normal ESR CRP lupus anticoagulant RF SSA, SSB a and CA, beta-2 glycoprotein, anticardiolipin antibody, LP with 3 WBCs homocystine level of 6.9 LDL of 39 A1c was 12.4. Echocardiogram on 04/16 shows normal LV systolic function EF of 55 to 65% . Does not appear that shehad a bubble study done. EKG normal sinus rhythm septal infarct age undetermined per neurology recommendations were to continue aspirin Plavix and high dose statin Per rehab team Sequela -dysarthria, left facial droop left-sided weakness left upper stronger than the left lower. ASA, Plavix and Statin Lipitor 80 mg of note LDL 39 Patient was reporting increased weakness left arm Repeat Brain CT on 05/07/2024 showing no acute hemorrhage and no other acute superimposed findings MRI of the brain showed motion artifact however did show reported chronic CVAs in the rt pontine area, age-indeterminate. No acute findings General weakness Likely multifactorial . 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 Patient is clinically improved Vitamin B12 is 233 vitamin D is 25 on replacement no signs of infection Improved Mg 1.7 --> increase dose Diabetes mellitus A1c greater than 12. Continue Metformin 500mg bid Continue Glipizide 5 QD POC 1 24-140s Improved glycemic control Hypertension Blood pressure in the 130s to 190s Norvasc 5mg --> increase to 10mg on 05/24 Off lisinopril due to hx of allergic reaction BP acceptable range DVT prophylaxis Continue Lovenox FULL CODE * Isi Varghese RN - 05/23/2024 1:51 AM EST Problem: Cognitive: Catrachita Kaiser Fall Risk Goal: Last Known Fall Outcome: Progressing Goal: Mobility requiring assistance of person or device Outcome: Progressing Goal: Dizziness Outcome: Progressing Goal: Medications Outcome: Progressing Goal: Mental Status/LOC/Awareness Outcome: Progressing Goal: Toileting Needs Outcome: Progressing Goal: Volume and Electrolyte Status Outcome: Progressing Goal: Communication/Sensory Outcome: Progressing Goal: Behavior Outcome: Progressing Problem: Skin Integrity: Pressure Injury Actual or Risk of Goal: Will not develop new pressure injury Outcome: Progressing Goal: Skin integrity will improve Outcome: Progressing Goal: Risk for impaired skin integrity will decrease Outcome: Progressing Problem: Activity:Pressure Injury Actual or Risk of Goal: Mobility will improve Outcome: Progressing Problem: Nutritional:Pressure Injury Actual or Risk of Goal: Nutritional status will improve Outcome: Progressing Problem: Patient Specific Problem: Pressure Injury Actual or Risk of Goal: Patient Specific Outcome Outcome: Progressing Problem: Cognitive/Linguistics Goal: Patient will complete simple calculations for time/money management at 90% accuracy given Mauro Description: Goal Type: STG, Performance Level: Min assist Outcome: Progressing Goals: Clinical Goals for the Shift: To stay free from falls. Identify possible barriers to meeting goals/advancing plan of care: Pt continues to work towards rehab goals. Stability of the patient: Moderately Unstable - Medium risk of patient condition declining or worsening End of Shift Summary: Bed alarm on. Bed locked/low. Call noriega within reach. Denies pain. * Neto Luna RN - 05/22/2024 5:00 PM EST Inpatient Consult to Bike Technician/Prosthetics Dai Rehman CPO at patient's bedside at approximately 1700. Trench Trimmer Fine services used during consultation. Patient fit with left small toe off AFO. Was able to stand comfortably. Please call [employer] with any questions or concerns at [phone]. * Neida Bailey DO - 05/22/2024 4:51 PM EST Images from the original note were not included. [facility] Daily Progress Note Patient name: Amalia Ann : 1975 SUBJECTIVE: Patient seen and examined at bedside today. No acute events overnight. Denies headaches, dizziness,shortness of breath, chest pain, nausea, constipation, and pain. No new concerns today. OBJECTIVE: Vitals: 05/22/24 0544 05/22/24 0700 05/22/24 0815 05/22/24 1604 BP: 137/66 (!) 145/81 (!) 140/74 (!) 144/79 BP Location: Right arm Right arm Right arm Patient Position: Lying Lying Sitting Pulse: 66 68 68 66 Resp: 18 Temp: 36.2 ??C (97.1 ??F) 36.7 ??C (98.1 ??F) TempSrc: Oral Oral SpO2: 96% 100% 100% Weight: Height: Physical Examination: General: Alert, in no acute cardiopulmonary distress. Mental Status: Oriented to person, place and time. Normal affect. Head: Normocephalic. Eyes: Extraocular muscles grossly intact. Ear, Nose and Throat: Oropharynx clear, mucous membranes moist. Ears and nose without masses, lesions or deformities. Neck: Supple, Trachea midline. Respiratory: Clear to auscultation and percussion. No wheezing, rales or rhonchi. Cardiovascular: Heart sounds normal. No thrills. Regular rate and rhythm, no murmurs, rubs or gallops. Gastrointestinal: Abdomen soft, non-tender, non-distended. Normal bowel sounds. Neurologic: Cranial nerves II-XII grossly intact. Moves all extremities spontaneously. Sensation intact bilaterally. +left hemiparesis Skin: No rashes or lesions. No petechiae or purpura. No edema. Musculoskeletal: No cyanosis or clubbing. No gross deformities. Normal range of motion. Strength 4/5 left shoulder abduction, 4/5 left elbow flexion, 1/5 left wrist extension, 1/5 left finger flexion. Strength 4/5 left hip flexion and knee extension. Left dorsiflexion strength 1/5. CURRENT INPATIENT MEDICATIONS: Current Facility-Administered Medications: acetaminophen (TYLENOL) tablet 650 mg, 650 mg, oral, q6h PRN, BRAD Hicks, 650 mg at aluminum-magnesium hydroxide-simethicone (MAALOX) 200-200-20 mg/5 mL suspension 30 mL, 30 mL, oral,q4h PRN, BRAD Hicks, 30 mL at 05/06/24 0354 amLODIPine (NORVASC) tablet 5 mg, 5 mg, oral, Daily, Leah Philippe NP, 5 mg at 816 aspirin EC tablet 81 mg, 81 mg, oral, Daily, BRAD Hicks, 81 mg at 01/08/25 0816 cholecalciferol (VITAMIN D-3) tablet 2,000 Units, 2,000 Units, oral, Daily, Leah Philippe NP, 2,000 Units at 05/22/24815 clopidogreL (PLAVIX) tablet 75 mg, 75 mg, oral, Daily, BRAD Hicks, 75 mg at 05/22/24816 cyanocobalamin (VITAMIN B-12) injection 1,000 mcg, 1,000 mcg, intramuscular, Daily, Leah Philippe NP, 1,000 mcg at 05/22/24815 [START ON 05/24/2024] cyanocobalamin (VITAMIN B-12) tablet 1,000 mcg, 1,000 mcg, oral, Daily, Leah Philippe NP dextrose (D50W) 50% injection 12.5 g, 12.5 g, intravenous, q15 min PRN, BRAD Hicks dextrose (D50W) 50% injection 25 g, 25 g, intravenous, q15 min PRN, BRAD Hicks dextrose 15 gram/60 mL oral solution 15 g, 15 g, oral, q15 min PRN, BRAD Hicks dextrose 15 gram/60 mL oral solution 30 g, 30 g, oral, q15 min PRN, BRAD Hicks enoxaparin (LOVENOX) injection 40 mg, 40 mg, subcutaneous, q24h [facility], Leah Philippe NP, 40 mg at 05/22/24815 glipiZIDE (GLUCOTROL) tablet 5 mg, 5 mg, oral, q AM AC, BRAD Viramontes, 5 mg at 05/22/24815 Glucagon HCl (rDNA) injection 1 mg, 1 mg, intramuscular, Once PRN, BRAD Hicks hydrALAZINE (APRESOLINE) tablet 10 mg, 10 mg, oral, TID PRN, BRAD Viramontes insulin lispro injection 2-12 Units, 2-12 Units, subcutaneous, TID AC, Neida Bailey, , 2 Units at 05/21/24815 magnesium hydroxide (MILK OF MAGNESIA) 400 mg/5 mL suspension 30 mL, 30 mL, oral, Daily PRN, BRAD Rojas, 30 mL at 04/23/24 0529 magnesium oxide (MAG-OX) tablet 400 mg, 400 mg, oral, BID, BRAD Viramontes metFORMIN (GLUCOPHAGE) tablet 500 mg, 500 mg, oral, BID with meals, Leah Philippe, JASON, 500 mg at 05/22/24 0816 traMADoL (ULTRAM) tablet 25 mg, 25 mg, oral, q6h PRN, Radhika Barber, JASON, 25 mg at 05/06/242031 LABS: Lab Results Component Value Date WBC 7.5 05/22/2024 RBC 4.10 05/22/2024 HGB 11.9 05/22/2024 HCT 36.3 05/22/2024 MCV 89.6 05/22/2024 MCHC 32.8 05/22/2024 RDW 13.1 05/22/2024 PLT 297 05/22/2024 MPV 11.9 (H) 05/22/2024 NRBC 0.0 05/22/2024 DIFF Lab Results Component Value Date LYMPHOPCT 10.4 05/06/2024 NEUTROABS 7.49 (H) 05/06/2024 LYMPHSABS 0.92 (L) 05/06/2024 MONOABS 0.33 05/06/2024 EOSABS 0.02 05/06/2024 BASOSABS 0.02 05/06/2024 IMMGRANABS 0.03 05/06/2024 RETIC No results found for: RETIC , RETICCTPCT Lab Results Component Value Date NA 136 05/22/2024 K 4.1 05/22/2024 CL 104 05/22/2024 CO2 25 05/22/2024 GLUCOSE 99 05/22/2024 BUN 19 05/22/2024 CREATININE 0.77 05/22/2024 CALCIUM 9.2 05/22/2024 PROT 6.5 05/22/2024 ALBUMIN 3.2 05/22/2024 BILITOT 0.2 05/22/2024 AST 8 (L) 05/22/2024 ALT 24 05/22/2024 MG 1.7 (L) 05/22/2024 ALKPHOS 76 05/22/2024 CKTOTAL 31 05/13/2024 EGFR 96 05/22/2024 IMPRESSION & PLAN: #Impaired mobility and self care -secondary to CVA -continue PT, OT, LOGISTICIAN, and nursing care #Acute anterior right pontine stroke #Left hemiparesis #Dysarthria -Aspirin 81mg daily -Plavix 75mg daily -Atorvastatin 80mg nightly discontinued on 05/17 due to weakness, monitor -CT head 05/07/24 There is subtle hypoattenuation in the rightward srinivas correlating with an infarctdemonstrated on the comparison MRI. No acute hemorrhage or other acute superimposed findings. -05/09 due to continued worsening weakness MRI brain ordered also reached out to Dr Reynoso at [facility] to inform of changes in neurostatus --> no response from Dr Reynoso, MRI brain 05/10 redemonstrated prior known infarcts -continue therapies -P&O consulted for left AFO -f/u Neurology after discharge #Dysphagia -regular diet with thin liquids -continue LOGISTICIAN #Hypertension -Lisinopril 10mg daily increased to 20mg daily on 04/25 --> discontinued 05/01 due to complaintsof itchiness to her throat -Amlodipine 5mg daily started 04/28 #Diabetes mellitus type 2 -noncompliant with treatment prior to admission -continue diabetic education -will need glucometer and supplies on discharge -ISS -Lantus 22 units QHS decreased to 10 units QHS on 05/02 --> discontinued on 05/03 -Metformin 500mg BID started 04/28 -Glipizide 5mg daily started 05/03 #Hypomagnesemia -Magnesium oxide 400mg daily started 05/18 #Bladder management -UA 05/06 negative for UTI -UA 05/16 negative for UTI #Bowel management -Colace and Senna discontinued on 05/01 due to loose stools -monitor #DVT prophylaxis: Lovenox 40mg daily * Sherri Rendon, MARIE - 05/22/2024 3:28 PM EST Speech Language Pathology Speech Language Pathology Treatment Subjective LOGISTICIAN Start Time: 1400 LOGISTICIAN Stop Time: 1500 LOGISTICIAN Time Calculation (min): 60 min Subjective: Pt was alert and sitting upright in bed for the session. Pt was pleasant and cooperative throughout the session. president practicing urologist Prosper, #[id number], was used for the session. Objective General Visit Info General Family/Caregiver Present: No Treatment Speech and Language Speech Treatment (Individual) Time Entry: 15 Speech: Pt was able to read sentences w/ 80-100% inteligibility indep. Trench Trimmer Fine asked for x3 repetitions during task. Pt required min verbal cues for use of strategies. Will continue to target fora couple more sessions to increase indep. w/ use of strategies. Cognitive Skills Therapeutic Interventions Cognitive Skills Direct Contact Time Entry: 45 Sequencing: Pt required min A for steps to making a PCP appt after d/c. Pt was able to write down steps given set up cues. Memory: Pt was tasked w/ recalling mock grocery list given mod A for encoding and was able to recall 7/10 given 30-second delay, 8/10 given 1-min delay, 9/10 given 2-min delay, and 10/10 given 5-min,10-min, and 15-min delay. Attention/Concentration: Pt was able to complete divided attention task w/ background noise in the background w/ 60% accuracy indep. and 100% given mod fading to min A for use of self-talk and use ofhighlighter to follow. Reasoning: Pt tasked w/ generating solutions to getting a PCP after d/c. Pt required mod A for appropriate solutions. Pt was unable to state who to call to get a new doctor and required mod A for generating appropriate questions to ask when calling the offices. Other Cognitive Skills Activity: Pt tasked w/ calling insurance or doctor's office to setup appt for HW Assessment/Plan LOGISTICIAN Assessment LOGISTICIAN Assessment Results: Cognitive impairments Evaluation/Treatment Tolerance: Patient tolerated treatment well Plan Treatment/Interventions: Cognitive linguistic functioning LOGISTICIAN Plan: Skilled LOGISTICIAN LOGISTICIAN Frequency: 5-7 days per week LOGISTICIAN Duration of Sessions: 30-60 min per session LOGISTICIAN Treatments per day: 1 time per day Goals Encounter Problems Encounter Problems (Active) Template: Speech Therapy Problem: Cognitive/Linguistics Dates: Start: 04/20/24 Goal: Patient will participate in further assessment of cognitive-linguistic skills (Resolved) Dates: Start: 04/20/24 Expected End: 05/04/24 Resolved: 12/18/24 Description: Goal Type: STG, Performance Level: Independent Outcomes Date/Time User Outcome 05/01/24 0920 MARIE Shrestha Completed Goal: Patient will identify and utilize problem-solving intervention for task completion at 90% accuracy given min A (Resolved) Dates: Start: 04/20/24 Expected End: 05/17/24 Resolved: 05/15/24 Description: Goal Type: STG, Performance Level: Min assist Outcomes Date/Time User Outcome 05/15/24 1515 MARIE Arroyo Completed Goal: Patient will complete simple calculations for time/money management at 90% accuracy given Mauro Dates: Start: 04/20/24 Expected End: 05/22/24 Description: Goal Type: STG, Performance Level: Min assist Outcomes Date/Time User Outcome 05/17/24 1541 MARIE Arroyo Not Progressing Goal: Pt will improve intelligibility at the sentence/conversational level to baseline given min A for speech strategies. (Resolved) Dates: Start: 04/21/24 Expected End: 04/28/24 Resolved: 04/26/24 Description: Outcomes Date/Time User Outcome 04/26/24 1127 MARIE Arroyo Completed Goal: Pt will improve delayed recall of functional information given min A for encoding and min A for retrieval - 90% accuracy (Resolved) Dates: Start: 04/22/24 Expected End: 05/17/24 Resolved: 05/15/24 Description: Outcomes Date/Time User Outcome 05/15/24 1522 MARIE Arroyo Completed Goal: Pt will complete basic to mod level auditory/visual attention tasks - 90% accuracy given mod A. (Resolved) Dates: Start: 04/23/24 Expected End: 05/07/24 Resolved: 05/10/24 Description: Outcomes Date/Time User Outcome 05/10/24 1139 MARIE Arroyo Completed Goal: Pt will participate in sequencing/direction following tasks related to functional/ADL tasks given min A- 90% accuracy. Dates: Start: 04/24/24 Expected End: 05/22/24 Description: Outcomes Date/Time User Outcome 05/22/24 1527 MARIE Arroyo Not Progressing Goal: Pt will improve intelligibility at the paragraph/conversational level to baseline and independent w/ use of strategies Dates: Start: 04/26/24 Expected End: 05/22/24 Description: Outcomes Date/Time User Outcome 05/22/24 MARIE Daniel Progressing Goal: Pt will complete mod to higher level auditory/visual attention tasks - 90% accuracy given Mauro. (Resolved) Dates: Start: 05/10/24 Expected End: 05/17/24 Resolved: 05/15/24 Description: Outcomes Date/Time User Outcome 05/15/24 MARIE Shell Completed Goal: Pt will improve complex attention for visual and/or auditory tasks to 90% accuracy indep. w/ use of strategies Dates: Start: 05/15/24 Expected End: 05/22/24 Description: Outcomes Date/Time User Outcome 05/22/24 MARIE Daniel Not Progressing Goal: Pt will improve delayed recall of functional information given min A for encoding and indep. for retrieval - 90% accuracy Dates: Start: 05/15/24 Expected End: 05/22/24 Description: Outcomes Date/Time User Outcome 05/22/24 MARIE Daniel Progressing Goal: Pt will improve higher level problem-solving/reasoning skills to 90% with min A. Dates: Start: 05/15/24 Expected End: 05/22/24 Description: Outcomes Date/Time User Outcome 05/22/24 MARIE Daniel Not Progressing Encounter Problems (Resolved) Template: Speech Therapy Problem: Swallowing Dates: Start: 04/20/24 Resolved: 04/23/24 Goal: Patient will tolerate the least restrictive diet consistency to allow for safe consumption ofdaily meals (Resolved) Dates: Start: 04/20/24 Expected End: 05/04/24 Resolved: 04/23/24 Description: Outcomes Date/Time User Outcome 04/23/24 MARIE Schmidt Completed Goal: Patient will demonstrate safe swallowing Intervention/techniques (Resolved) Dates: Start: 04/20/24 Expected End: 05/04/24 Resolved: 04/23/24 Description: Outcomes Date/Time User Outcome 04/23/24 125MARIE Miller Completed Education Documentation Speech/Language, taught by MARIE Arroyo at 05/22/2024 3:27 PM. Learner: Patient Readiness: Acceptance Method: Explanation, Handout Response: Verbalizes Understanding Cognition, taught by MARIE Arroyo at 05/22/2024 3:27 PM. Learner: Patient Readiness: Acceptance Method: Explanation, Handout Response: Verbalizes Understanding Education Comments No comments found. Associated attestation - Jen Duque SLP - 05/22/2024 3:31 PM EST I attest that I, Amber Duque M.S.,[facility]-LOGISTICIAN, was physically involved in the ongoing assessment, decision making, and interventions provided during today's patient care session. I have reviewed all documentation for today's 05/22/24, entered by Speech Therapy Fellow, Sherri Rendon, and furtherattest that it is an accurate clinical record of today's encounter, including accurate and appropriate charges. * Josephine Maldonado, DINH - 05/22/2024 10:35 AM EST 0800- patient reported that a piece of her left upper molar fell out this am. Patient denied pain. This RN gave patient mouth wash and educated patient to keep area clean until she can follow up witha dentist after discharge. * Elzbieta Garcia PT - 05/22/2024 10:21 AM EST [facility] Physical Therapy Treatment Note 05/22/2024 Patient: Amalia Ann : 1975 Age: 48 y.o. Gender: female Primary Language: Barbadian Diagnosis: No Principal Problem: There is no principal problem currently on the Problem List. Please update the Problem List and refresh. Past Medical History: Diagnosis Date CVA (cerebral vascular accident) (CMS/HCC) DM (diabetes mellitus) (CMS/HCC) HTN (hypertension) History reviewed. No pertinent surgical history. Allergies: is allergic to lisinopril. Precautions: Medical Precautions: Fall Risk Safety Interventions: Call noriega within reach Swallow Precautions: Modified Diet RUE Weight Bearing Status: Full LUE Weight Bearing Status: Full, As Tolerated RLE Weight Bearing Status: Full LLE Weight Bearing Status: Full NURSING RECOMMENDATIONS Bed Mobility: Transfers: Ambulation: SUBJECTIVE Pt report: My shoulder hurts Pain: 0/10 OBJECTIVE General Observation: Supine in bed agreeable to participating in therapy session. Procedure/Treatment: Neuromuscular Reeducation: Balance/Neuromuscular Re-Education Neuromuscular Re-Education Time Entry: 60 Pt supine in bed agreeable to participating in therapy session. Pt SUP bed mobility, partial A stand pivot transfer to WC. Pt completed WC mobility down to therapy gym, x150ft SUP. Therapist educating on use of AFO for discharge home, pt agreeable. Video automatic embroidery machine tender [id number] used for therapy session.Pt completed x4 FOS with seated rest breaks between FOS, pt ascending forwards step to pattern, descending backwards with step to descending with LLE with R ascending railing, pt needing steadying-partial A x1 on stairs. With increased reps of stairs, pt with increased instances of buckling on LLE when descending step, cues for knee extension. To complete x4 FOS ascending descending stairs 25 minutes, with seated rest breaks. Education provided to pt to place chair on platforms while pts significant other Alejandro brings WC up to next platform. Pt completed 2x10ft of ambulation with SBQC steadying assistance. Pt completed WC mobility x150ft SUP back to room, pt completed stand pivot transfer partial A to EOB, SUP bed mobility. Therapist performing 3x30 seconds of gastroc/soleus stretch on LLE. Pt completed bed mobility SUP, steadying assistance for stand pivot transfer into WC for lunch. PTleft seated in WC, call noriega in reach, chair alarm on, all needs met. Education: Education Documentation Mobility Training, taught by Elzbieta Garcia PT at 05/22/2024 11:27 AM. Learner: Patient Readiness: Acceptance Method: Explanation, Demonstration, Trench Trimmer Fine Response: Verbalizes Understanding, Demonstrated Understanding Comment: d/c planning and AFO Education Comments No comments found. ASSESSMENT Pt able to complete x4 FOS with seated rest breaks and use of AFO and R ascending railing. Equipment: Left AFO Plan of Care Plan Treatment/Interventions: (As per IE) PT Plan: Skilled PT PT Frequency: 5-7 days per week PT Duration of Sessions: 60-90 min per session PT Treatments per day: 1-2 times per day Equipment Recommended: TBD Barriers to Discharge: home environment, medical condition PT - Evaluation Status: Complete Problems/Goals Goals: Encounter Problems Encounter Problems (Active) Template: Physical Therapy Problem: PT Membership Manager Goals Dates: Start: 04/20/24 Goal: mod I bed mobility Dates: Start: 04/20/24 Expected End: 05/11/24 Outcomes Date/Time User Outcome 05/20/24 1002 Elzbieta Garcia PT Progressing Goal: mod I transfers with LAD Dates: Start: 04/20/24 Expected End: 05/11/24 Outcomes Date/Time User Outcome 05/20/24 1002 Elzbieta Garcia PT Progressing Goal: mod I wc mobility 150' Dates: Start: 04/20/24 Expected End: 05/11/24 Outcomes Date/Time User Outcome 05/20/24 1002 Elzbieta Garcia PT Progressing Goal: up/dn 4 flights of stairs min A Dates: Start: 04/20/24 Expected End: 05/11/24 Outcomes Date/Time User Outcome 05/20/24 1002 Elzbieta Garcia PT Progressing Goal: Ambulate x50ft LRAD SUP Dates: Start: 05/20/24 Outcomes Date/Time User Outcome 05/20/24 1002 Elzbieta Garcia PT Progressing Encounter Problems (Resolved) Template: Physical Therapy Problem: PT Short Term Goals Dates: Start: 04/20/24 Resolved: 05/20/24 Goal: Pt will perform bed mobility min A (Resolved) Dates: Start: 04/20/24 Expected End: 04/27/24 Resolved: 05/17/24 Outcomes Date/Time User Outcome 05/17/24 1403 Elzbieta Garcia PT Completed Goal: Pt will transfer with min A (Resolved) Dates: Start: 04/20/24 Expected End: 04/27/24 Resolved: 05/20/24 Outcomes Date/Time User Outcome 05/20/24 1001 Elzbieta Garcia PT Completed Goal: Pt will ambulate 25' with LAD mod A (Resolved) Dates: Start: 04/20/24 Expected End: 04/27/24 Resolved: 05/20/24 Outcomes Date/Time User Outcome 05/20/24 1001 Elzbieta Garcia PT Completed Goal: Assess stairs as appropriate (Resolved) Dates: Start: 04/20/24 Expected End: 04/27/24 Resolved: 05/06/24 Outcomes Date/Time User Outcome 05/06/24 1038 Elzbieta Garcia PT Completed Goal: Supervision wc mobility and mgmt 150' (Resolved) Dates: Start: 04/20/24 Expected End: 04/27/24 Resolved: 05/06/24 Description: Outcomes Date/Time User Outcome 05/06/24 1038 Elzbieta Garcia PT Completed Session Start/Stop Time: 1030 1130 Therapy Minutes Physical Therapy PT Individual: 60 * Joshua Tellez OT - 05/22/2024 7:00 AM EST [facility] Occupational Therapy Treatment Note 05/22/24 Patient: Amalia Ann : 1975 Age: 48 y.o. Gender: female Diagnosis: No Principal Problem: There is no principal problem currently on the Problem List. Please update the Problem List and refresh. Primary Rehab (Etiologic) Diagnosis: Patient Active Problem List Diagnosis HTN (hypertension) DM (diabetes mellitus) (CMS/HCC) CVA (cerebral vascular accident) (CMS/HCC) PMH: Past Medical History: Diagnosis Date CVA (cerebral vascular accident) (CMS/HCC) DM (diabetes mellitus) ([facility]/HCC) HTN (hypertension) PSH: History reviewed. No pertinent surgical history. Allergies: is allergic to lisinopril. Precautions: Precautions Medical Precautions: Fall Risk Safety Interventions: Call noriega within reach RUE Weight Bearing Status: Full LUE Weight Bearing Status: Full, As Tolerated RLE Weight Bearing Status: Full LLE Weight Bearing Status: Full Pt seen for split session form 7-7:30 and 8:30-9:30. Vitals: BP: (!) 145/81 Heart Rate: 68 Pain: none Subjective: A piece of my tooth just came out. Procedures/Interventions: ADLs/IADLs Self Care/Home Management (ADLs) Time Entry: 45 [id number] -Pt in supine upon arrival, agreeable to participation, vitals assessed, see above. Elevated supine>sit EOB mod I. Seated EOB pt donned Socks with PETERSON, with use of B Ues, increased time to assume grasp with L UE. SPT from bed>w/c for max A correcting posterior LOB/safe lower, resulting in sit between chair/bed. Once seated in chair, pt reporting that piece of tooth came out, pt showing small piece, reporting no pain, RN notified. Pt picked out clothing with PETERSON once provided with bag. Pt propelled self to sink S. Seated in w/c at sink pt filled basin with water. UB sponge bath performed with S. STS steadying A, in stand pt bathed valerie area and buttocks, remainder of LB not bathed. UB dressing without use of tasha dressing technique, despite cues, pt donned with S. LB dressingperformed steadying A. Pt seated in w/c with chair alarm on and call noriega in reach, [phone] Pt donned sneakres with overall partial A for tying laces, pt utilizig B Ues to don shoes. With increased time pt able to don, assist to tie shoes. Pt propelled self from room>kitchen with B Les, cues for attending to L UE. Pt gathered items from counter top including cup, and instant coffee, tomake cup of coffee in microwave. Pt cued to incorporate LUE while opening items such as spoon. Pt made coffee entirely w/c level no more than S. Cues for attending to LUE X1 during task as hanging byw/c. Pt microwaving coffee for appropriate amount of time. Balance/Neuromuscular Re-Education Neuromuscular Re-Education Time Entry: 45 Seated in w/c at table pt tasked with performing mass reps of ripping paper down designated lines, to target sustained L UE lateral pinch. Pt able to perform with increased time. While pt performed task this therapist replaced shoes laces with elastic laces in attempt to increase independence with donning shoes. During task dicussed with pt different between commode and safety frame. Notified pt of plan to call SO to confirm that he will be home 05/12 with pt, per her report. Educated that pt unable to use safety frame/toilet if alone as pt required to walk into bathroom. Pt agreeable. Pt tasked with attempting to don shoes with elastic laces, pt donned R shoe. partial A to do L shoe with max increased time. Seated at table to pt engaged in task to target L functional reach, and grasp and release. Pt tasked with sorting colored blocking into colored targets with L UE. Verbal cues for reducing compensation, by utilizing elbow extension to reach targets, opposed to trunk flexion, with improvement noted. Pt then tasked with stacking blocks. Pt brianna to stack mas of 3 block due to decreased control. Restbreaks taken throughout. Pt propelled back to room S, reporting fatigue in Les. Pt set self up at bed in prep for txfer, with assist for positioning closer to bed. SPT steadying A with R UE on bed rail. Sit>supine mod I. Pt doffed shoes with clean up assist. Bed alarm on and call noriega in reach. OT Assessment OT Assessment OT Assessment Results: Decreased ADL status, Decreased upper extremity range of motion, Decreased upper extremity strength, Decreased safe judgment during ADL, Decreased fine motor control, Decreasedfunctional mobility, Decreased gross motor control, Decreased trunk control for functional activities Prognosis: Good Evaluation/Treatment Tolerance: Patient tolerated treatment well Comments: (Completed split 90 min session. Occasional verbal cues for attending to L UE or for incorporating into tasks. Plan to call SO in order to order to confirm his availability once pt d/c'd sothat therapist can order most appropriate bathroom DME. W/c roland prep performed with no more than S.Varying assist level for txfers). OT Plan Plan Treatment Interventions: ADL retraining, Functional transfer training, Endurance training, UE strengthening/ROM, Equipment evaluation/education, Patient/family training, Fine motor coordination activities, Neuromuscular reeducation OT Plan: Skilled OT OT Frequency : 5-7 days per week OT Duration of Sessions: 60-90 min per session OT Treatments per day: 1 time per day OT - Evaluation Status: Complete Equipment Recommended: (TBD) Goals: Encounter Problems Encounter Problems (Active) Template: Occupational Therapy Problem: OT Chcf Goals Dates: Start: 04/20/24 Goal: Pt will be mod I with LB dressing Dates: Start: 04/20/24 Expected End: 05/18/24 Outcomes Date/Time User Outcome 05/12/24 1217 RICHIE Lucas Progressing Goal: Pt will be mod I with UB dressing Dates: Start: 04/20/24 Expected End: 05/18/24 Outcomes Date/Time User Outcome 05/12/24 1217 RICHIE Lucas Progressing Goal: Pt will be S with bathing Dates: Start: 04/20/24 Expected End: 05/18/24 Outcomes Date/Time User Outcome 05/12/24 1217 RICHIE Lucas Progressing Goal: Pt will be mod I with toileting including txfer Dates: Start: 04/20/24 Expected End: 05/18/24 Outcomes Date/Time User Outcome 05/12/24 121RICHIE Guerin Progressing Goal: Pt will perform tub txfer with LRAD with S. Dates: Start: 04/20/24 Expected End: 05/18/24 Outcomes Date/Time User Outcome 05/12/24 121 RICHIE Lucas Progressing Goal: Pt will be mod I with snack/beverage retrieval at LRAD Dates: Start: 04/20/24 Expected End: 05/18/24 Description: Outcomes Date/Time User Outcome 05/12/24RICHIE Guerin Progressing Problem: OT Short Term Goals Dates: Start: 05/15/24 Goal: Pt will perform toileting with steadying A with use of LRAD. Dates: Start: 05/15/24 Expected End: 05/22/24 Outcomes Date/Time User Outcome 05/17/24 124Leo Tellez OT Progressing Goal: Pt will perform LB dressing steadying A Dates: Start: 05/15/24 Expected End: 05/22/24 Outcomes Date/Time User Outcome 05/17/24 1248 Joshua Tellez OT Progressing Goal: Pt will perform UB dressing with PETERSON Dates: Start: 05/15/24 Expected End: 05/22/24 Outcomes Date/Time User Outcome 05/17/24 1248 Joshua Tellez OT Progressing Goal: Pt will perform bathing with Steadying A for balance. Dates: Start: 05/15/24 Expected End: 05/22/24 Outcomes Date/Time User Outcome 05/17/24 124Leo Tellez OT Progressing Goal: Pt will utilize L UE gross assist during oral hygiene tasks. Dates: Start: 05/15/24 Expected End: 05/22/24 Outcomes Date/Time User Outcome 05/17/24 1248 Joshua Tellez OT Progressing Encounter Problems (Resolved) Template: Occupational Therapy Problem: OT Short Term Goals Dates: Start: 04/20/24 Resolved: 05/03/24 Goal: Pt will perform toileting with partial A (Resolved) Dates: Start: 04/20/24 Expected End: 04/27/24 Resolved: 05/03/24 Outcomes Date/Time User Outcome 05/03/24 140Angie Gray OT Completed Goal: Pt will perform LB dressing with partial A (Resolved) Dates: Start: 04/20/24 Expected End: 04/27/24 Resolved: 05/03/24 Outcomes Date/Time User Outcome 05/03/24 140Angie Gray OT Completed Goal: Pt will perform bathing with steadying A. (Resolved) Dates: Start: 04/20/24 Expected End: 04/27/24 Resolved: 05/03/24 Outcomes Date/Time User Outcome 05/03/24 140Angie Gray OT Completed Goal: Pt will be able to utilize L UE as an independent stabilizer during grooming tasks (Resolved) Dates: Start: 04/20/24 Expected End: 04/27/24 Resolved: 05/03/24 Outcomes Date/Time User Outcome 05/03/24 140Angie Gray OT Completed Goal: Pt will perform UB dressing with PETERSON, with carryover of tasha dressing technique (Resolved) Dates: Start: 04/20/24 Expected End: 04/27/24 Resolved: 05/03/24 Outcomes Date/Time User Outcome 05/03/24 Susan Gray OT Completed Education Documentation Safe Use of DME, taught by Joshua Tellez OT at 05/22/2024 9:30 AM. Learner: Patient Readiness: Acceptance Method: Explanation, Demonstration Response: Demonstrated Understanding, Verbalizes Understanding, Needs Reinforcement The Cost of DME, Purchase and Rental, taught by Joshua Tellez OT at 05/22/2024 9:30 AM. Learner: Patient Readiness: Acceptance Method: Explanation, Demonstration Response: Demonstrated Understanding, Verbalizes Understanding, Needs Reinforcement ADL Training, taught by Joshua Tellez OT at 05/22/2024 9:30 AM. Learner: Patient Readiness: Acceptance Method: Explanation, Demonstration Response: Demonstrated Understanding, Verbalizes Understanding, Needs Reinforcement Home Exercise Program, taught by Joshua Tellez OT at 05/22/2024 9:30 AM. Learner: Patient Readiness: Acceptance Method: Explanation, Demonstration Response: Demonstrated Understanding, Verbalizes Understanding, Needs Reinforcement Body Mechanics, taught by Joshua Tellez OT at 05/22/2024 9:30 AM. Learner: Patient Readiness: Acceptance Method: Explanation, Demonstration Response: Demonstrated Understanding, Verbalizes Understanding, Needs Reinforcement Activity/Positioning, taught by Joshua Tellez OT at 05/22/2024 9:30 AM. Learner: Patient Readiness: Acceptance Method: Explanation, Demonstration Response: Demonstrated Understanding, Verbalizes Understanding, Needs Reinforcement Education Comments No comments found. Start/Stop Time OT Time Calculation OT Start Time: 0700 OT Stop Time: 0830 OT Time Calculation (min): 90 min Therapy Minutes: Occupational Therapy OT Individual: 90 * MARIE Shrestha - 05/21/2024 3:55 PM EST Speech Language Pathology Speech Language Pathology Treatment Subjective LOGISTICIAN Start Time: 1555 LOGISTICIAN Stop Time: 1625 LOGISTICIAN Time Calculation (min): 30 min Subjective: Cooperative and pleasant. president practicing urologist [place] # [id number] utilized. Objective General Visit Info General Family/Caregiver Present: No Treatment Speech and Language Speech Treatment (Individual) Time Entry: 20 Speech: Pt tasked with orally reading multisyllabic cards: per automatic embroidery machine tender Pt 93% intelligible w/ use of loud volume and exaggerated speech, increasing to 100% intelligible with one repetition of each word. During informal conversation, automatic embroidery machine tender requesting x2 repetitions overall. Pt reporting to this verse writer her speech is 95-100% back to baseline. Cognitive Skills Therapeutic Interventions Cognitive Skills Direct Contact Time Entry: 10 Memory: Pt unable to recall PT recommendation for stair use/dragging L foot: required mod verbal cues. Reviewed recommendations: bend knee and hip to compensate. Problem Solving: Didactic discussion re: Pt tasked with generating list of rugs to eliminate in apartment for fall risk: indp. Pt able to indp state importance of pausing when standing up to regain balance. Assessment/Plan LOGISTICIAN Assessment Evaluation/Treatment Tolerance: Patient tolerated treatment well Plan Treatment/Interventions: Cognitive linguistic functioning, Motor speech therapy LOGISTICIAN Plan: Skilled LOGISTICIAN LOGISTICIAN Frequency: 5-7 days per week LOGISTICIAN Duration of Sessions: 30-60 min per session LOGISTICIAN Treatments per day: 1 time per day LOGISTICIAN - Next Appointment: 05/22/24 Goals Encounter Problems Encounter Problems (Active) Template: Speech Therapy Problem: Cognitive/Linguistics Dates: Start: 04/20/24 Goal: Patient will participate in further assessment of cognitive-linguistic skills (Resolved) Dates: Start: 04/20/24 Expected End: 05/04/24 Resolved: 05/01/24 Description: Goal Type: STG, Performance Level: Independent Outcomes Date/Time User Outcome 05/01/24 0920 MARIE Shrestha Completed Goal: Patient will identify and utilize problem-solving intervention for task completion at 90% accuracy given min A (Resolved) Dates: Start: 04/20/24 Expected End: 05/17/24 Resolved: 05/15/24 Description: Goal Type: STG, Performance Level: Min assist Outcomes Date/Time User Outcome 05/15/24 1515 MARIE Arroyo Completed Goal: Patient will complete simple calculations for time/money management at 90% accuracy given Mauro Dates: Start: 04/20/24 Expected End: 05/22/24 Description: Goal Type: STG, Performance Level: Min assist Outcomes Date/Time User Outcome 05/17/24 1541 MARIE Arroyo Not Progressing Goal: Pt will improve intelligibility at the sentence/conversational level to baseline given min A for speech strategies. (Resolved) Dates: Start: 04/21/24 Expected End: 04/28/24 Resolved: 04/26/24 Description: Outcomes Date/Time User Outcome 04/26/24 1127 MARIE Arroyo Completed Goal: Pt will improve delayed recall of functional information given min A for encoding and min A for retrieval - 90% accuracy (Resolved) Dates: Start: 04/22/24 Expected End: 05/17/24 Resolved: 05/15/24 Description: Outcomes Date/Time User Outcome 05/15/24 1522 MARIE Arroyo Completed Goal: Pt will complete basic to mod level auditory/visual attention tasks - 90% accuracy given mod A. (Resolved) Dates: Start: 04/23/24 Expected End: 05/07/24 Resolved: 05/10/24 Description: Outcomes Date/Time User Outcome 05/10/24 1139 MARIE Arroyo Completed Goal: Pt will participate in sequencing/direction following tasks related to functional/ADL tasks given min A- 90% accuracy. Dates: Start: 04/24/24 Expected End: 05/22/24 Description: Outcomes Date/Time User Outcome 05/14/24 1051 MARIE Arroyo Not Progressing Goal: Pt will improve intelligibility at the paragraph/conversational level to baseline and independent w/ use of strategies Dates: Start: 04/26/24 Expected End: 05/22/24 Description: Outcomes Date/Time User Outcome 05/21/24 162MARIE Griffin Progressing Goal: Pt will complete mod to higher level auditory/visual attention tasks - 90% accuracy given Mauro. (Resolved) Dates: Start: 05/10/24 Expected End: 05/17/24 Resolved: 05/15/24 Description: Outcomes Date/Time User Outcome 05/15/24 1521 MARIE Arroyo Completed Goal: Pt will improve complex attention for visual and/or auditory tasks to 90% accuracy indep. w/ use of strategies Dates: Start: 05/15/24 Expected End: 05/22/24 Description: Outcomes Date/Time User Outcome 05/17/24 1541 MARIE Arroyo Not Progressing Goal: Pt will improve delayed recall of functional information given min A for encoding and indep. for retrieval - 90% accuracy Dates: Start: 05/15/24 Expected End: 05/22/24 Description: Outcomes Date/Time User Outcome 05/16/24 1146 MARIE Arroyo Progressing Goal: Pt will improve higher level problem-solving/reasoning skills to 90% with min A. Dates: Start: 05/15/24 Expected End: 05/22/24 Description: Outcomes Date/Time User Outcome 05/21/24 MARIE Meza Progressing Encounter Problems (Resolved) Template: Speech Therapy Problem: Swallowing Dates: Start: 04/20/24 Resolved: 04/23/24 Goal: Patient will tolerate the least restrictive diet consistency to allow for safe consumption ofdaily meals (Resolved) Dates: Start: 04/20/24 Expected End: 05/04/24 Resolved: 04/23/24 Description: Outcomes Date/Time User Outcome 04/23/24 1253 MARIE Shrestha Completed Goal: Patient will demonstrate safe swallowing Intervention/techniques (Resolved) Dates: Start: 04/20/24 Expected End: 05/04/24 Resolved: 04/23/24 Description: Outcomes Date/Time User Outcome 04/23/24 1253 MARIE Shrestha Completed Education Documentation Speech/Language, taught by MARIE Shrestha at 05/21/2024 3:55 PM. Learner: Patient Readiness: Acceptance Method: Explanation, Trench Trimmer Fine Response: Verbalizes Understanding, Demonstrated Understanding Education Comments No comments found. Associated attestation - Jen Duque SLP - 05/21/2024 9:32 PM EST I attest that I, Amber Duque M.S.,[facility]-LOGISTICIAN, was physically involved in the ongoing assessment, decision making, and interventions provided during today's patient care session. I have reviewed all documentation for today's 05/21/24, entered by Speech Therapy Fellow, Shayy Meyer, and further attest that it is an accurate clinical record of today's encounter, including accurate and appropriate charges. * BRAD Viramontes - 05/21/2024 1:09 PM EST Images from the original note were not included. VEE PROGRESS NOTE Date: 05/21/2024 Author: BRAD Viramontes Patient ID: Amalia Ann is a 48 y.o. female : 1975 MR#: [id number] SUBJECTIVE No complaints No increased weakness patient states she feels as though her weakness is improving on the left Patient reports that she is doing better this week her weakness has improved. amLODIPine, 5 mg, oral, Daily aspirin, 81 mg, oral, Daily cholecalciferol, 2,000 Units, oral, Daily clopidogreL, 75 mg, oral, Daily cyanocobalamin, 1,000 mcg, intramuscular, Daily [START ON 05/24/2024] cyanocobalamin, 1,000 mcg, oral, Daily enoxaparin, 40 mg, subcutaneous, q24h KATIE glipiZIDE, 5 mg, oral, q AM AC insulin lispro, 2-12 Units, subcutaneous, TID AC magnesium oxide, 400 mg, oral, Daily metFORMIN, 500 mg, oral, BID with meals sodium chloride, 3 mL, intravenous, q8h PRN medications: acetaminophen, aluminum-magnesium hydroxide-simethicone, dextrose 50%, dextrose 50%, dextrose, dextrose, glucagon injection, hydrALAZINE, magnesium hydroxide, traMADoL ROS: CHEST: no sob, coughing HEART: no chest pain, orthopnea GI: no abd pain, or N/V. : No dysuria or frequency EXT: no leg pain or swelling Neuro as above OBJECTIVE Vitals: 05/20/24 1630 05/21/24 0054 05/21/24 0814 05/21/24 0911 BP: (!) 150/77 (!) 143/72 (!) 133/96 (!) 140/83 BP Location: Right arm Right arm Patient Position: Lying Sitting Pulse: 64 72 65 74 Resp: 16 16 Temp: 36.3 ??C (97.3 ??F) 37 ??C (98.6 ??F) 36.8 ??C (98.2 ??F) TempSrc: Oral Oral SpO2: 100% 100% 100% 97% Weight: Height: Physical exam General: AAO NAD HEENT: pupils are equal round and reactive. extraocular movements are grossly intact lungs clear to auscultation, no wheezing or crackles noted heart regular rate and rhythm, no murmur or rubs abdomen soft nontender nondistended positive bowel sounds Musculoskeletal: No gross deformity to joints extremities without edema, erythema or calf tenderness neuro: Left-sided weakness, dysarthria improving skin: no rashes or lesions. psych: mood stable appearing, good eye contact. LABS HEMATOLOGY Lab Results Component Value Date WBC 7.5 05/17/2024 HGB 11.9 05/17/2024 HCT 34.5 (L) 05/17/2024 MCV 88.0 05/17/2024 PLT 317 05/17/2024 CHEMISTRY Lab Results Component Value Date GLUCOSE 72 05/21/2024 NA 137 05/18/2024 K 4.3 05/18/2024 CO2 29 05/18/2024 CL 105 05/18/2024 BUN 16 05/18/2024 CREATININE 0.92 05/18/2024 EGFR 78 05/18/2024 CALCIUM 8.3 (L) 05/18/2024 MG 1.8 (L) 05/18/2024 ANIONGAP 3 05/18/2024 Imaging: MR Brain wo Contrast Addendum: ADDENDUM: This report was discussed with Neto TAO on May 10, 2024 01:13:00 EST. This document has been electronically signed by: Yuly Cleveland on 05/10/2024 01:14:01 Narrative: MRI BRAIN WITHOUT CONTRAST COMPARISON: CT brain [...] dimensions are difficult to quantify but a pharmaceutical representative measurement on image 21 of series 3 is 1.2 x 0.5 cm. On images 22-23 of series 3 is an area of restricted diffusion in the midline and right paracentral region of the srinivas, also compatible with an acute infarct. This is also difficult to accurately measure but a pharmaceutical representative measurement on image 22 is approximately [...] collection. Clivus and craniocervical junction are unremarkable. Impression: 1. The patient has a reported history [...] by: Krishan Oden M.D. on 05/10/2024 01:06:25 ASSESSMENT & PLAN Anterior right pontine stroke Patient had a recent small right pontine CVA on 03/26 and is on aspirin and Plavix. Now with new anterior right pontine stroke Suspect secondary to intrinsic atherosclerotic disease likely compensation/benefits specialist now occluded CTA shows right V4 high-grade stenosis consistent with right hemispheric stroke per neurology. MRI of the brain showed acute subacute right pontine infarct without hemorrhagic transformation. Prior stroke workup with normal ESR CRP lupus anticoagulant RF SSA, SSB a and CA, beta-2 glycoprotein, anticardiolipin antibody, LP with 3 WBCs homocystine level of 6.9 LDL of 39 A1c was 12.4. Echocardiogram on 04/16 shows normal LV systolic function EF of 55 to 65% . Does not appear that shehad a bubble study done. EKG normal sinus rhythm septal infarct age undetermined per neurology recommendations were to continue aspirin Plavix and high dose statin Per rehab team Sequela -dysarthria, left facial droop left-sided weakness left upper stronger than the left lower. ASA, Plavix and Statin Lipitor 80 mg of note LDL 39 Patient was reporting increased weakness left arm Repeat Brain CT on 05/07/2024 showing no acute hemorrhage and no other acute superimposed findings MRI of the brain showed motion artifact however did show reported chronic CVAs in the rt pontine area, age-indeterminate. No acute findings General weakness Likely multifactorial . 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 Patient is clinically improved Vitamin B12 is 233 vitamin D is 25 replete no signs of infection Improved Recheck mag in the morning Diabetes mellitus A1c greater than 12. seen by endocrine. Continue Metformin Continue Glipizide POC 1 24-140s Improved glycemic control Hypertension Blood pressure in the 130s to 190s Norvasc 5mg Off lisinopril due to hx of allergic reaction BP acceptable range DVT prophylaxis Continue Lovenox FULL CODE * Joshua Tellez, OT - 05/21/2024 12:30 PM EST [facility] Occupational Therapy Treatment Note 05/21/24 Patient: Amalia Ann : 1975 Age: 48 y.o. Gender: female Diagnosis: No Principal Problem: There is no principal problem currently on the Problem List. Please update the Problem List and refresh. Primary Rehab (Etiologic) Diagnosis: Patient Active Problem List Diagnosis HTN (hypertension) DM (diabetes mellitus) (CMS/HCC) CVA (cerebral vascular accident) (CMS/HCC) PMH: Past Medical History: Diagnosis Date CVA (cerebral vascular accident) (CMS/HCC) DM (diabetes mellitus) ([facility]) HTN (hypertension) PSH: History reviewed. No pertinent surgical history. Allergies: is allergic to lisinopril. Precautions: Precautions Medical Precautions: Fall Risk Safety Interventions: Call noriega within reach RUE Weight Bearing Status: Full LUE Weight Bearing Status: Full, As Tolerated RLE Weight Bearing Status: Full LLE Weight Bearing Status: Full Pain: Pain Assessment Pain Assessment: No/denies pain Subjective: my is going to be home 05/12 Procedures/Interventions: ADLs/IADLs Self Care/Home Management (ADLs) Time Entry: 30 Pt in elevated supine upon arrival, agreeable to participation. Video [place]er><president practicing urologist utilized throughout (#[id number]). Elevated supine>Sit EOB mod I. Seated EOB pt donned R shoe with PETERSON. Discussed skin checks on L LE pre/post donning AFO. Pt donned L AFO with partial A for threading Velcro through loop. Dicussed elastic shoe laces with pt for increasing INDEPENDENCE with donning/doffing footwear. Assist to tie B shoe laces. SPT from bed>w/c steadying A with R UE supportedon bed rail. Balance/Neuromuscular Re-Education Neuromuscular Re-Education Time Entry: 30 In supine, Air cast applied to L UE to isolate L shoulder during AROM. Pt performed mass reps of AROM L shoulder flexion to 90, shoulder horizontal adduction and abduction gravity assisted with min resistance. Occasional touching A to achieve 90 degrees of shoulder horizontal adduction. Seated EOM w ith 1lb weighted dowel, pt performed mass reps of AAROM elbow flexion. Pt cued for rest breaks throughout Therapeutic Activity Therapeutic Activity Time Entry: 30 Pt tasked with performing mass reps of txfers, including PETERSON of w/c. Pt set up w/c to 2 benches in hallway, cues X1 for w/c set up (proximity). Partial A for both SPT due to LOBs. Educated on pausing once standing to gain balance. During seated rest breaks Pt reporting that w/c will not fit into bathroom, thus pt required to ambulate in. Pt reporting that SO will be home 05/12 to be pt's BROACH OPERATOR. Dicussed removal of throw rugs around home to reduce fall risk. Pt agreeable. Once in gym SPT x3 from w/c><mat or chair, with steadying A, with improved carryover of w/c placement, pacing, and body mechanics. Once back in room pt doffed footwear including AFO with S. After doffing AFO, pt self initiating skin check, cues for thoroughness. Indentation on lateral ankle, no redness. Sit>Supine mod I. Bed alarm on and call noriega in reach with all needs met. OT Assessment OT Assessment OT Assessment Results: Decreased ADL status, Decreased upper extremity range of motion, Decreased upper extremity strength, Decreased safe judgment during ADL, Decreased fine motor control, Decreasedfunctional mobility, Decreased gross motor control, Decreased trunk control for functional activities Prognosis: Good Evaluation/Treatment Tolerance: Patient tolerated treatment well Comments: (Completed 90min session. SPT varied from steadying-partial A. Plan to don elastic shoe laces to increase independence with donning/doffing footwear. Pt agreeable to roland prep in next session.) OT Plan Plan Treatment Interventions: ADL retraining, Functional transfer training, Endurance training, UE strengthening/ROM, Equipment evaluation/education, Patient/family training, Fine motor coordination activities, Neuromuscular reeducation OT Plan: Skilled OT OT Frequency : 5-7 days per week OT Duration of Sessions: 60-90 min per session OT Treatments per day: 1 time per day OT - Evaluation Status: Complete Equipment Recommended: (TBD) Goals: Encounter Problems Encounter Problems (Active) Template: Occupational Therapy Problem: OT Membership Manager Goals Dates: Start: 04/20/24 Goal: Pt will be mod I with LB dressing Dates: Start: 04/20/24 Expected End: 05/18/24 Outcomes Date/Time User Outcome 05/12/24 1217 RICHIE Lucas Progressing Goal: Pt will be mod I with UB dressing Dates: Start: 04/20/24 Expected End: 05/18/24 Outcomes Date/Time User Outcome 05/12/24 1217 RICHIE Lucas Progressing Goal: Pt will be S with bathing Dates: Start: 04/20/24 Expected End: 05/18/24 Outcomes Date/Time User Outcome 05/12/24 121 RICHIE Lucas Progressing Goal: Pt will be mod I with toileting including txfer Dates: Start: 04/20/24 Expected End: 05/18/24 Outcomes Date/Time User Outcome 05/12/24 1217 RICHIE Lucas Progressing Goal: Pt will perform tub txfer with LRAD with S. Dates: Start: 04/20/24 Expected End: 05/18/24 Outcomes Date/Time User Outcome 05/12/24 1217 RICHIE Lucas Progressing Goal: Pt will be mod I with snack/beverage retrieval at LRAD Dates: Start: 04/20/24 Expected End: 05/18/24 Description: Outcomes Date/Time User Outcome 05/12/24 1217 RICHIE Lucas Progressing Problem: OT Short Term Goals Dates: Start: 05/15/24 Goal: Pt will perform toileting with steadying A with use of LRAD. Dates: Start: 05/15/24 Expected End: 05/22/24 Outcomes Date/Time User Outcome 05/17/24 1248 Joshua Tellez OT Progressing Goal: Pt will perform LB dressing steadying A Dates: Start: 05/15/24 Expected End: 05/22/24 Outcomes Date/Time User Outcome 05/17/24 1248 Joshua Tellez OT Progressing Goal: Pt will perform UB dressing with PETERSON Dates: Start: 05/15/24 Expected End: 05/22/24 Outcomes Date/Time User Outcome 05/17/24 124Leo Tellez OT Progressing Goal: Pt will perform bathing with Steadying A for balance. Dates: Start: 05/15/24 Expected End: 05/22/24 Outcomes Date/Time User Outcome 05/17/24 Rebecca Tellez OT Progressing Goal: Pt will utilize L UE gross assist during oral hygiene tasks. Dates: Start: 05/15/24 Expected End: 05/22/24 Outcomes Date/Time User Outcome 05/17/24 124Leo Tellez OT Progressing Encounter Problems (Resolved) Template: Occupational Therapy Problem: OT Short Term Goals Dates: Start: 04/20/24 Resolved: 05/03/24 Goal: Pt will perform toileting with partial A (Resolved) Dates: Start: 04/20/24 Expected End: 04/27/24 Resolved: 05/03/24 Outcomes Date/Time User Outcome 05/03/24 Susan Gray OT Completed Goal: Pt will perform LB dressing with partial A (Resolved) Dates: Start: 04/20/24 Expected End: 04/27/24 Resolved: 05/03/24 Outcomes Date/Time User Outcome 05/03/24 Susan Gray OT Completed Goal: Pt will perform bathing with steadying A. (Resolved) Dates: Start: 04/20/24 Expected End: 04/27/24 Resolved: 05/03/24 Outcomes Date/Time User Outcome 05/03/24 140Angie Gray OT Completed Goal: Pt will be able to utilize L UE as an independent stabilizer during grooming tasks (Resolved) Dates: Start: 04/20/24 Expected End: 04/27/24 Resolved: 05/03/24 Outcomes Date/Time User Outcome 05/03/24 Susan Gray OT Completed Goal: Pt will perform UB dressing with PETERSON, with carryover of tasha dressing technique (Resolved) Dates: Start: 04/20/24 Expected End: 04/27/24 Resolved: 05/03/24 Outcomes Date/Time User Outcome 05/03/24 Susan Gray OT Completed Education Documentation Skin Care/Pressure Ulcer Prevention, taught by Joshua Tellez OT at 05/21/2024 2:22 PM. Learner: Patient Readiness: Acceptance Method: Explanation, Demonstration Response: Verbalizes Understanding, Needs Reinforcement, Demonstrated Understanding Body Mechanics, taught by Joshua Tellez OT at 05/21/2024 2:22 PM. Learner: Patient Readiness: Acceptance Method: Explanation, Demonstration Response: Verbalizes Understanding, Needs Reinforcement, Demonstrated Understanding Activity/Positioning, taught by Joshua Tellez OT at 05/21/2024 2:22 PM. Learner: Patient Readiness: Acceptance Method: Explanation, Demonstration Response: Verbalizes Understanding, Needs Reinforcement, Demonstrated Understanding Injury Prevention, taught by Joshua Tellez OT at 05/21/2024 2:22 PM. Learner: Patient Readiness: Acceptance Method: Explanation, Demonstration Response: Verbalizes Understanding, Needs Reinforcement, Demonstrated Understanding Teach precautions to protect skin integrity, taught by Joshua Tellez OT at 05/21/2024 2:22 PM. Learner: Patient Readiness: Acceptance Method: Explanation, Demonstration Response: Verbalizes Understanding, Needs Reinforcement, Demonstrated Understanding Teach positioning to prevent injury, taught by Joshua Tellez OT at 05/21/2024 2:22 PM. Learner: Patient Readiness: Acceptance Method: Explanation, Demonstration Response: Verbalizes Understanding, Needs Reinforcement, Demonstrated Understanding Education Comments No comments found. Start/Stop Time OT Time Calculation OT Start Time: 1230 OT Stop Time: 1400 OT Time Calculation (min): 90 min Therapy Minutes: Occupational Therapy OT Individual: 90 * Jorden Soto LCSW - 05/21/2024 11:49 AM EST Received voicemail from Gladys TAO at [facility]. Appointment on 05/29 at 11am cannot be rescheduled per Dr. Reynoso. Pt is currently in a study and will need to be seen. Dr. Bailey notified. Will book [employer] wheel [employer] van transportation to appointment. Wheel Chair Van booked with [email or web address]. 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 Return Drop off 12:30pm. Trip #[id number]. * BRAD Chaudhari - 05/21/2024 11:32 AM EST Images from the original note were not included. [facility] Daily Progress Note Patient name: Amalia Ann : 1975 SUBJECTIVE: Patient seen and examined at bedside today. No acute events overnight. Denies headaches, dizziness,shortness of breath, chest pain, nausea, constipation, and pain. Feels like she has progressed w/ PT/OT significantly since last week. Eating her lunch during my evaluation. OBJECTIVE: Vitals: 05/20/24 1630 05/21/24 0054 05/21/24 0814 05/21/24 0911 BP: (!) 150/77 (!) 143/72 (!) 133/96 (!) 140/83 BP Location: Right arm Right arm Patient Position: Lying Sitting Pulse: 64 72 65 74 Resp: 16 16 Temp: 36.3 ??C (97.3 ??F) 37 ??C (98.6 ??F) 36.8 ??C (98.2 ??F) TempSrc: Oral Oral SpO2: 100% 100% 100% 97% Weight: Height: Physical Examination: General: Alert, in no acute cardiopulmonary distress. Mental Status: Oriented to person, place and time. Normal affect. Head: Normocephalic. Eyes: Extraocular muscles grossly intact. Ear, Nose and Throat: Oropharynx clear, mucous membranes moist. Ears and nose without masses, lesions or deformities. Neck: Supple, Trachea midline. Respiratory: Clear to auscultation and percussion. No wheezing, rales or rhonchi. Cardiovascular: Heart sounds normal. No thrills. Regular rate and rhythm, no murmurs, rubs or gallops. Gastrointestinal: Abdomen soft, non-tender, non-distended. Normal bowel sounds. Neurologic: Cranial nerves II-XII grossly intact. Moves all extremities spontaneously. Sensation intact bilaterally. +left hemiparesis Skin: No rashes or lesions. No petechiae or purpura. No edema. Musculoskeletal: No cyanosis or clubbing. No gross deformities. Normal range of motion. Strength 3/5 left shoulder abduction, 3/5 left elbow flexion, 1/5 left wrist extension, 1/5 left finger flexion. Strength 4/5 left hip flexion and knee extension. Left dorsiflexion strength 1/5. CURRENT INPATIENT MEDICATIONS: Current Facility-Administered Medications: acetaminophen (TYLENOL) tablet 650 mg, 650 mg, oral, q6h PRN, BRAD Hicks, 650 mg at aluminum-magnesium hydroxide-simethicone (MAALOX) 200-200-20 mg/5 mL suspension 30 mL, 30 mL, oral,q4h PRN, BRAD Hicks, 30 mL at 05/06/24 0354 amLODIPine (NORVASC) tablet 5 mg, 5 mg, oral, Daily, Leah Philippe NP, 5 mg at 816 aspirin EC tablet 81 mg, 81 mg, oral, Daily, BRAD Hicks, 81 mg at 05/21/24 0816 cholecalciferol (VITAMIN D-3) tablet 2,000 Units, 2,000 Units, oral, Daily, Leah Philippe NP, 2,000 Units at 05/21/2416 clopidogreL (PLAVIX) tablet 75 mg, 75 mg, oral, Daily, BRAD Hicks, 75 mg at 05/21/24 0816 cyanocobalamin (VITAMIN B-12) injection 1,000 mcg, 1,000 mcg, intramuscular, Daily, Leah Philippe NP, 1,000 mcg at 05/21/24 0815 [START ON 05/24/2024] cyanocobalamin (VITAMIN B-12) tablet 1,000 mcg, 1,000 mcg, oral, Daily, Leah Philippe NP dextrose (D50W) 50% injection 12.5 g, 12.5 g, intravenous, q15 min PRN, BRAD Hicks dextrose (D50W) 50% injection 25 g, 25 g, intravenous, q15 min PRN, BRAD Hicks dextrose 15 gram/60 mL oral solution 15 g, 15 g, oral, q15 min PRN, BRAD Hicks dextrose 15 gram/60 mL oral solution 30 g, 30 g, oral, q15 min PRN, BRAD Hicks enoxaparin (LOVENOX) injection 40 mg, 40 mg, subcutaneous, q24h [facility], Leah Philippe NP, 40 mg at 05/21/24 0816 glipiZIDE (GLUCOTROL) tablet 5 mg, 5 mg, oral, q AM AC, BRAD Viramontes, 5 mg at 05/21/24 0815 Glucagon HCl (rDNA) injection 1 mg, 1 mg, intramuscular, Once PRN, BRAD Hicks hydrALAZINE (APRESOLINE) tablet 10 mg, 10 mg, oral, TID PRN, BRAD Viramontes insulin lispro injection 2-12 Units, 2-12 Units, subcutaneous, TID AC, Neida Bailey DO, 2 Units at 05/21/24 0816 magnesium hydroxide (MILK OF MAGNESIA) 400 mg/5 mL suspension 30 mL, 30 mL, oral, Daily PRN, BRAD Rojas, 30 mL at 04/23/24 0529 magnesium oxide (MAG-OX) tablet 400 mg, 400 mg, oral, Daily, Leah Brenner NP, 400 mg at 05/21/24 0815 metFORMIN (GLUCOPHAGE) tablet 500 mg, 500 mg, oral, BID with meals, Leah Philippe NP, 500 mg at 05/21/24 0815 sodium chloride 0.9 % flush 3 mL, 3 mL, intravenous, q8h, Neida Bailey DO, 3 mL at traMADoL (ULTRAM) tablet 25 mg, 25 mg, oral, q6h PRN, Radhika Barber NP, 25 mg at 05/06/242031 LABS: Lab Results Component Value Date WBC 7.5 05/17/2024 RBC 3.90 05/17/2024 HGB 11.9 05/17/2024 HCT 34.5 (L) 05/17/2024 MCV 88.0 05/17/2024 MCHC 34.5 05/17/2024 RDW 12.9 05/17/2024 PLT 317 05/17/2024 MPV 11.8 (H) 05/17/2024 NRBC 0.0 05/17/2024 DIFF Lab Results Component Value Date LYMPHOPCT 10.4 05/06/2024 NEUTROABS 7.49 (H) 05/06/2024 LYMPHSABS 0.92 (L) 05/06/2024 MONOABS 0.33 05/06/2024 EOSABS 0.02 05/06/2024 BASOSABS 0.02 05/06/2024 IMMGRANABS 0.03 05/06/2024 RETIC No results found for: RETIC , RETICCTPCT Lab Results Component Value Date NA 137 05/18/2024 K 4.3 05/18/2024 CL 105 05/18/2024 CO2 29 05/18/2024 GLUCOSE 72 05/21/2024 BUN 16 05/18/2024 CREATININE 0.92 05/18/2024 CALCIUM 8.3 (L) 05/18/2024 PROT 6.1 05/18/2024 ALBUMIN 2.9 (L) 05/18/2024 BILITOT 0.2 05/18/2024 AST 20 05/18/2024 ALT 32 05/18/2024 MG 1.8 (L) 05/18/2024 ALKPHOS 88 05/18/2024 CKTOTAL 31 05/13/2024 EGFR 78 05/18/2024 IMPRESSION & PLAN: #Impaired mobility and self care -secondary to CVA -continue PT, OT, LOGISTICIAN, and nursing care #Acute anterior right pontine stroke #Left hemiparesis #Dysarthria -Aspirin 81mg daily -Plavix 75mg daily -Atorvastatin 80mg nightly discontinued on 05/17 due to weakness, monitor -CT head 05/07/24 There is subtle hypoattenuation in the rightward srinivas correlating with an infarctdemonstrated on the comparison MRI. No acute hemorrhage or other acute superimposed findings. -05/09 due to continued worsening weakness MRI brain ordered also reached out to Dr Reynoso at [facility] to inform of changes in neurostatus --> no response from Dr Reynoso, MRI brain 05/10 redemonstrated prior known infarcts -continue therapies -f/u Neurology after discharge #Dysphagia -regular diet with thin liquids -continue LOGISTICIAN #Hypertension -Lisinopril 10mg daily increased to 20mg daily on 04/25 --> discontinued 05/01 due to complaintsof itchiness to her throat -Amlodipine 5mg daily started 04/28 #Diabetes mellitus type 2 -noncompliant with treatment prior to admission -continue diabetic education -will need glucometer and supplies on discharge -ISS -Lantus 22 units QHS decreased to 10 units QHS on 05/02 --> discontinued on 05/03 -Metformin 500mg BID started 04/28 -Glipizide 5mg daily started 05/03 #Hypomagnesemia -Magnesium oxide 400mg daily started 05/18 #Bladder management -UA 05/06 negative for UTI -UA 05/16 negative for UTI #Bowel management -Colace and Senna discontinued on 05/01 due to loose stools -monitor #DVT prophylaxis: Lovenox 40mg daily Associated attestation - Neida Bailey DO - 05/22/2024 8:35 AM EST Agree with progress note, assessment, and plan as documented by PA today. * Elzbieta Garcia, PT - 05/21/2024 8:51 AM EST [facility] Physical Therapy Treatment Note 05/21/2024 Patient: Amalia Ann : 1975 Age: 48 y.o. Gender: female Primary Language: Barbadian Diagnosis: No Principal Problem: There is no principal problem currently on the Problem List. Please update the Problem List and refresh. Past Medical History: Diagnosis Date CVA (cerebral vascular accident) ([facility]) DM (diabetes mellitus) ([facility]) HTN (hypertension) History reviewed. No pertinent surgical history. Allergies: is allergic to lisinopril. Precautions: Medical Precautions: Fall Risk Safety Interventions: Call noriega within reach RUE Weight Bearing Status: Full LUE Weight Bearing Status: Full, As Tolerated RLE Weight Bearing Status: Full LLE Weight Bearing Status: Full SUBJECTIVE Pt report: More stairs today Pain: 0/10 OBJECTIVE General Observation: Seated in bed agreeable to participating in therapy session. Procedure/Treatment: Neuromuscular Reeducation: Balance/Neuromuscular Re-Education Neuromuscular Re-Education Time Entry: 90 Patient in Bed agreeable to participating in therapy session. Pt completed stand pivot trasnfer steadying assistance. Video automatic embroidery machine tender [id number] used for therapy session. Pt completed WC mobility SUP down to therapy gym, pt locking brakes appropriately. Therapist assessing skin on LLE, skin intact, Toe off AFO donned. Pt completed 3x12 stairs ascending forwards step to pattern, cues for increased knee flexion R ascending railing steadying assistance. Pt descending steps backwards leading with LLE. Pt cued for pacing on stairs to improve safety, pt with increased instances of knee flexion on steps d/t fatigue at end of stairs. Pt reporting increased heart rate s/p stairs, therapist assessing vitals, pt denied SOB, dizziness, lightheadedness, reporting increased work performed s/p stairs. Pt completed x25ft of ambulation with LBQC and toe off AFO donned with steadying assistance, pt completed x25ft of ambulation with SBQC, steadying assistance. Pt ambulating x40ft with SBQC partial A for more than steadying assistance for step through gait pattern, pt needing assistance with weight shifting. Pt completed 2x30ft of ambulation with partial A x1 and COMPOSITE LAYUP WORKER x1, pt with step through pattern, increased knee flexion on stance phases of gait, pt needing cues for step length. Therapist doffing AFO, skin intact, no areas of redness noted. Pt completed WC mobility back to room pt maneuvering WCinto doorway, therapist inspecting LLE, skin intact, no evidence of skin break down, no redness noted., SUP cues for brake management, steadying assistance for stand pivot transfer to EOB, acute buckling on LLE, pt able to correct, SUP for bed mobility. Pt left supine in bed, call noriega in reach, bed alarm on, all needs met. Education: Education Documentation Mobility Training, taught by Elzbieta Garcia PT at 05/21/2024 9:28 AM. Learner: Patient Readiness: Acceptance Method: Trench Trimmer Fine, Explanation, Demonstration Response: Demonstrated Understanding, Verbalizes Understanding Comment: discharge planning Education Comments No comments found. ASSESSMENT Pt able to complete x3 FOS with R ascending rail, ascending forwards and descending backwards step to pattern with toe off AFO donned, steadying assistance. Pt taking seated rest brakes between FOS cues for pacing and foot placement. Equipment: TBD Plan of Care Plan Treatment/Interventions: (As per IE) PT Plan: Skilled PT PT Frequency: 5-7 days per week PT Duration of Sessions: 60-90 min per session PT Treatments per day: 1-2 times per day Equipment Recommended: TBD Barriers to Discharge: home environment, medical condition PT - Evaluation Status: Complete Problems/Goals Goals: Encounter Problems Encounter Problems (Active) Template: Physical Therapy Problem: PT Membership Manager Goals Dates: Start: 04/20/24 Goal: mod I bed mobility Dates: Start: 04/20/24 Expected End: 05/11/24 Outcomes Date/Time User Outcome 05/20/24 1002 Elzbieta Garcia PT Progressing Goal: mod I transfers with LAD Dates: Start: 04/20/24 Expected End: 05/11/24 Outcomes Date/Time User Outcome 05/20/24 1002 Elzbieta Garcia PT Progressing Goal: mod I wc mobility 150' Dates: Start: 04/20/24 Expected End: 05/11/24 Outcomes Date/Time User Outcome 05/20/24 1002 Elzbieta Garcia PT Progressing Goal: up/dn 4 flights of stairs min A Dates: Start: 04/20/24 Expected End: 05/11/24 Outcomes Date/Time User Outcome 05/20/24 1002 Elzbieta Garcia PT Progressing Goal: Ambulate x50ft LRAD SUP Dates: Start: 05/20/24 Outcomes Date/Time User Outcome 05/20/24 1002 Elzbieta Garcia PT Progressing Encounter Problems (Resolved) Template: Physical Therapy Problem: PT Short Term Goals Dates: Start: 04/20/24 Resolved: 05/20/24 Goal: Pt will perform bed mobility min A (Resolved) Dates: Start: 04/20/24 Expected End: 04/27/24 Resolved: 05/17/24 Outcomes Date/Time User Outcome 05/17/24 1403 Elzbieta Garcia PT Completed Goal: Pt will transfer with min A (Resolved) Dates: Start: 04/20/24 Expected End: 04/27/24 Resolved: 05/20/24 Outcomes Date/Time User Outcome 05/20/24 1001 Elzbieta Garcia PT Completed Goal: Pt will ambulate 25' with LAD mod A (Resolved) Dates: Start: 04/20/24 Expected End: 04/27/24 Resolved: 05/20/24 Outcomes Date/Time User Outcome 05/20/24 1001 Elzbieta Garcia PT Completed Goal: Assess stairs as appropriate (Resolved) Dates: Start: 04/20/24 Expected End: 04/27/24 Resolved: 05/06/24 Outcomes Date/Time User Outcome 05/06/24 1038 Elzbieta Garcia PT Completed Goal: Supervision wc mobility and mgmt 150' (Resolved) Dates: Start: 04/20/24 Expected End: 04/27/24 Resolved: 05/06/24 Description: Outcomes Date/Time User Outcome 05/06/24 1038 Elzbieta Garcia PT Completed Session Start/Stop Time: 0830 1000 Therapy Minutes Physical Therapy PT Individual: 90 * Shayy Sanchez, LOGISTICIAN - 05/20/2024 3:35 PM EST Speech Language Pathology Speech Language Pathology Treatment Subjective LOGISTICIAN Start Time: 1535 LOGISTICIAN Stop Time: 1605 LOGISTICIAN Time Calculation (min): 30 min Subjective: Cooperative and pleasant. president practicing urologist Soo #[id number] utilized. Objective General Visit Info General Family/Caregiver Present: No Treatment Cognitive Skills Therapeutic Interventions Cognitive Skills Direct Contact Time Entry: 30 Problem Solving: Per PT, Pt demonstrating increased difficulty using stairs with L leg dragging. Pt tasked with generating solution per PT if L foot is dragging going up stairs: Pt unable to statesolution indp. Reviewed PT recommendation of bending L knee and hip. Plan to review as delayed recall task during tomorrow's session. Attention/Concentration: Pt tasked with answering questions based on calendar: min A required at 100% accuracy. Pt good with attention to detail. Tasked with answering every day word problems level 2: 100% accuracy given min to mod A. Increased difficulty with time related math problems. Assessment/Plan LOGISTICIAN Assessment Evaluation/Treatment Tolerance: Patient tolerated treatment well Plan Treatment/Interventions: Cognitive linguistic functioning LOGISTICIAN Plan: Skilled LOGISTICIAN LOGISTICIAN Frequency: 5-7 days per week LOGISTICIAN Duration of Sessions: 30-60 min per session LOGISTICIAN Treatments per day: 1 time per day LOGISTICIAN - Next Appointment: 05/21/24 Goals Encounter Problems Encounter Problems (Active) Template: Speech Therapy Problem: Cognitive/Linguistics Dates: Start: 04/20/24 Goal: Patient will participate in further assessment of cognitive-linguistic skills (Resolved) Dates: Start: 04/20/24 Expected End: 05/04/24 Resolved: 05/01/24 Description: Goal Type: STG, Performance Level: Independent Outcomes Date/Time User Outcome 05/01/24 0920 MARIE Shrestha Completed Goal: Patient will identify and utilize problem-solving intervention for task completion at 90% accuracy given min A (Resolved) Dates: Start: 04/20/24 Expected End: 05/17/24 Resolved: 05/15/24 Description: Goal Type: STG, Performance Level: Min assist Outcomes Date/Time User Outcome 05/15/24 1515 MARIE Arroyo Completed Goal: Patient will complete simple calculations for time/money management at 90% accuracy given Mauro Dates: Start: 04/20/24 Expected End: 05/22/24 Description: Goal Type: STG, Performance Level: Min assist Outcomes Date/Time User Outcome 05/17/24 1541 MARIE Arroyo Not Progressing Goal: Pt will improve intelligibility at the sentence/conversational level to baseline given min A for speech strategies. (Resolved) Dates: Start: 04/21/24 Expected End: 04/28/24 Resolved: 04/26/24 Description: Outcomes Date/Time User Outcome 04/26/24 1127 MARIE Arroyo Completed Goal: Pt will improve delayed recall of functional information given min A for encoding and min A for retrieval - 90% accuracy (Resolved) Dates: Start: 04/22/24 Expected End: 05/17/24 Resolved: 05/15/24 Description: Outcomes Date/Time User Outcome 05/15/24 1522 MARIE Arroyo Completed Goal: Pt will complete basic to mod level auditory/visual attention tasks - 90% accuracy given mod A. (Resolved) Dates: Start: 04/23/24 Expected End: 05/07/24 Resolved: 05/10/24 Description: Outcomes Date/Time User Outcome 05/10/24 1139 MARIE Arroyo Completed Goal: Pt will participate in sequencing/direction following tasks related to functional/ADL tasks given min A- 90% accuracy. Dates: Start: 04/24/24 Expected End: 05/22/24 Description: Outcomes Date/Time User Outcome 05/14/24 1051 MARIE Arroyo Not Progressing Goal: Pt will improve intelligibility at the paragraph/conversational level to baseline and independent w/ use of strategies Dates: Start: 04/26/24 Expected End: 05/22/24 Description: Outcomes Date/Time User Outcome 05/20/24 1610 MARIE Shrestha Progressing Goal: Pt will complete mod to higher level auditory/visual attention tasks - 90% accuracy given Mauro. (Resolved) Dates: Start: 05/10/24 Expected End: 05/17/24 Resolved: 05/15/24 Description: Outcomes Date/Time User Outcome 05/15/24 1521 MARIE Arroyo Completed Goal: Pt will improve complex attention for visual and/or auditory tasks to 90% accuracy indep. w/ use of strategies Dates: Start: 05/15/24 Expected End: 05/22/24 Description: Outcomes Date/Time User Outcome 05/17/24 1541 MARIE Arroyo Not Progressing Goal: Pt will improve delayed recall of functional information given min A for encoding and indep. for retrieval - 90% accuracy Dates: Start: 05/15/24 Expected End: 05/22/24 Description: Outcomes Date/Time User Outcome 05/16/24 1146 MARIE Arroyo Progressing Goal: Pt will improve higher level problem-solving/reasoning skills to 90% with min A. Dates: Start: 05/15/24 Expected End: 05/22/24 Description: Outcomes Date/Time User Outcome 05/17/24 1541 MARIE Arroyo Progressing Encounter Problems (Resolved) Template: Speech Therapy Problem: Swallowing Dates: Start: 04/20/24 Resolved: 04/23/24 Goal: Patient will tolerate the least restrictive diet consistency to allow for safe consumption ofdaily meals (Resolved) Dates: Start: 04/20/24 Expected End: 05/04/24 Resolved: 04/23/24 Description: Outcomes Date/Time User Outcome 04/23/24 1253 MARIE Shrestha Completed Goal: Patient will demonstrate safe swallowing Intervention/techniques (Resolved) Dates: Start: 04/20/24 Expected End: 05/04/24 Resolved: 04/23/24 Description: Outcomes Date/Time User Outcome 04/23/24 1253 Shayy Mozeleski, LOGISTICIAN Completed Education Documentation No documentation found. Education Comments No comments found. Associated attestation - Jen Duque SLP - 05/20/2024 4:34 PM EST I attest that I, Amber Duque M.S.,[facility]-LOGISTICIAN, was physically involved in the ongoing assessment, decision making, and interventions provided during today's patient care session. I have reviewed all documentation for today's 05/20/24, entered by Speech Therapy Fellow, Shayy Meyer, and further attest that it is an accurate clinical record of today's encounter, including accurate and appropriate charges. * Jorden Soto LCSW - 05/20/2024 2:42 PM EST Team Meeting: Met with pt at bedside to review post team recommendations. Utilized [employer] Trench Trimmer Fine #[id number]. Pt making steady progress with therapy. Pt is a tentative discharge home on 05/31/24. Received call from [employer], pt has been approved through [place]. Pt will discharge home with [facility] for RN PT and OT. No LOGISTICIAN available at home due to insurance. Pt will require MART transportation home and to all follow up appointments. Pt in agreement to have all medications filled at [facility] due to limited support on DC. Pt reports her boyfriend does drive but is not supposed to be. Family training scheduled for 05/27.Pt had no questions or concerns at this time. Pt in agreement with DC plan. Pt has Neurology appointment on 05/29/24. Per Dr. Bailey, appointment can be rescheduled until after DC. Appointment rescheduled for next available. * Albina Gray OT - 05/20/2024 12:30 PM EST [facility] Occupational Therapy Treatment Note 05/20/24 Patient: Amalia Ann : 1975 Age: 48 y.o. Gender: female Diagnosis: No Principal Problem: There is no principal problem currently on the Problem List. Please update the Problem List and refresh. Primary Rehab (Etiologic) Diagnosis: Patient Active Problem List Diagnosis HTN (hypertension) DM (diabetes mellitus) ([facility]) CVA (cerebral vascular accident) ([facility]) PMH: Past Medical History: Diagnosis Date CVA (cerebral vascular accident) ([facility]) DM (diabetes mellitus) ([facility]) HTN (hypertension) PSH: History reviewed. No pertinent surgical history. Allergies: is allergic to lisinopril. Precautions: Precautions Medical Precautions: Fall Risk Safety Interventions: Call noriega within reach Swallow Precautions: Modified Diet RUE Weight Bearing Status: Full LUE Weight Bearing Status: Full, As Tolerated RLE Weight Bearing Status: Full LLE Weight Bearing Status: Full Vitals: BP: 108/73 Heart Rate: 72 Subjective: My birthday is next week. Procedures/Interventions: ADLs/IADLs Self Care/Home Management (ADLs) Time Entry: 15 ADL/ IADL Performed: Toileting, Toilet Transfers Balance/Neuromuscular Re-Education Neuromuscular Re-Education Time Entry: 75 Pt received bed level, vitals assessed. Agreeable to participate in session. Trench Trimmer Fine utilized throughout session: [id number]. Supine to EOB S level. Pivot to L with steadying A. Brought to kitchen via w/c. Stood at counter to facilitate WBing through L UE, reaching with R UE with steadying throughout. A to reach L UE back to w/c. In clinic, Tabletop push ups 3 x 10 reps with scap elevation, retraction between reps with cues for symmetry and full ROM. Pt participated in UBE x 2 minutes for max rep closed chain movement with A to support elbow and wrist. Opening/closing containers using L hand as Ind stabilizer, occ using body to stabilize containers. Able to match appropriate covers once all removed. Cues to lift med sized containers into bucket andvisualize hand throughout. Passive stretch wrist extension Pivot to mat with steadying A. Sit to supine S level. L UE positioned in air splint to isolate L shoulder for max reps of sh flex, sh abd and sh horiz abd, including place and holds x 10 seconds in 90 degrees flex. AROM bicep flex/ext with resistance to extension in both seated and supine Supine to sit S level. Lateral push ups x 5 reps each with support L UE. D1 and D2 PNF pattern AAROM to achieve full ROM with cues for trunk control. AROM sh IR/ER with resistance at IR. At end of session, transferred to toilet to R with steadying A. Able to manage clothing pre and post void. Pivot to toilet with steadying A. Washed hands at sink with cues to wash L hand. Pivot to bed to R with steadying A. Sit to supine S level. Pt remained w/c level with chair alarm on, call noriega in place and needs met. OT Assessment OT Assessment OT Assessment Results: Decreased ADL status, Decreased upper extremity range of motion, Decreased upper extremity strength, Decreased safe judgment during ADL, Decreased fine motor control, Decreasedfunctional mobility, Decreased gross motor control, Decreased trunk control for functional activities Prognosis: Good Evaluation/Treatment Tolerance: Patient tolerated treatment well Comments: Pt attempted to utilize L UE throughout session during reaching tasks and clothing mgmt, however, difficulty due to limited functional movement in hand. OT Plan Plan Treatment Interventions: ADL retraining, Functional transfer training, Endurance training, UE strengthening/ROM, Equipment evaluation/education, Patient/family training, Fine motor coordination activities, Neuromuscular reeducation OT Plan: Skilled OT OT Frequency : 5-7 days per week OT Duration of Sessions: 60-90 min per session OT Treatments per day: 1 time per day OT - Evaluation Status: Complete Equipment Recommended: (TBD) Goals: Encounter Problems Encounter Problems (Active) Template: Occupational Therapy Problem: OT Membership Manager Goals Dates: Start: 04/20/24 Goal: Pt will be mod I with LB dressing Dates: Start: 04/20/24 Expected End: 05/18/24 Outcomes Date/Time User Outcome 05/12/241216 RICHIE Lucas Progressing Goal: Pt will be mod I with UB dressing Dates: Start: 04/20/24 Expected End: 05/18/24 Outcomes Date/Time User Outcome 05/12/241216 RICHIE Lucas Progressing Goal: Pt will be S with bathing Dates: Start: 04/20/24 Expected End: 05/18/24 Outcomes Date/Time User Outcome 05/12/241216 RICHIE Lucas Progressing Goal: Pt will be mod I with toileting including txfer Dates: Start: 04/20/24 Expected End: 05/18/24 Outcomes Date/Time User Outcome 05/12/24 1217 RICHIE Lucas Progressing Goal: Pt will perform tub txfer with LRAD with S. Dates: Start: 04/20/24 Expected End: 05/18/24 Outcomes Date/Time User Outcome 05/12/24 121Angie RICHIE Lucas Progressing Goal: Pt will be mod I with snack/beverage retrieval at LRAD Dates: Start: 04/20/24 Expected End: 05/18/24 Description: Outcomes Date/Time User Outcome 05/12/247 RICHIE Lucas Progressing Problem: OT Short Term Goals Dates: Start: 05/15/24 Goal: Pt will perform toileting with steadying A with use of LRAD. Dates: Start: 05/15/24 Expected End: 05/22/24 Outcomes Date/Time User Outcome 05/17/24 1248 Joshua Tellez OT Progressing Goal: Pt will perform LB dressing steadying A Dates: Start: 05/15/24 Expected End: 05/22/24 Outcomes Date/Time User Outcome 05/17/24 124Leo Tellez OT Progressing Goal: Pt will perform UB dressing with PETERSON Dates: Start: 05/15/24 Expected End: 05/22/24 Outcomes Date/Time User Outcome 05/17/24 1248 Joshua Tellez OT Progressing Goal: Pt will perform bathing with Steadying A for balance. Dates: Start: 05/15/24 Expected End: 05/22/24 Outcomes Date/Time User Outcome 05/17/24 124Leo Tellez OT Progressing Goal: Pt will utilize L UE gross assist during oral hygiene tasks. Dates: Start: 05/15/24 Expected End: 05/22/24 Outcomes Date/Time User Outcome 05/17/24 1248 Joshua Tellez OT Progressing Encounter Problems (Resolved) Template: Occupational Therapy Problem: OT Short Term Goals Dates: Start: 04/20/24 Resolved: 05/03/24 Goal: Pt will perform toileting with partial A (Resolved) Dates: Start: 04/20/24 Expected End: 04/27/24 Resolved: 05/03/24 Outcomes Date/Time User Outcome 05/03/24 1407 Albina Gray OT Completed Goal: Pt will perform LB dressing with partial A (Resolved) Dates: Start: 04/20/24 Expected End: 04/27/24 Resolved: 05/03/24 Outcomes Date/Time User Outcome 05/03/24 Susan Gray OT Completed Goal: Pt will perform bathing with steadying A. (Resolved) Dates: Start: 04/20/24 Expected End: 04/27/24 Resolved: 05/03/24 Outcomes Date/Time User Outcome 05/03/24 Susan Gray OT Completed Goal: Pt will be able to utilize L UE as an independent stabilizer during grooming tasks (Resolved) Dates: Start: 04/20/24 Expected End: 04/27/24 Resolved: 05/03/24 Outcomes Date/Time User Outcome 05/03/24 Susan Gray OT Completed Goal: Pt will perform UB dressing with PETERSON, with carryover of tasha dressing technique (Resolved) Dates: Start: 04/20/24 Expected End: 04/27/24 Resolved: 05/03/24 Outcomes Date/Time User Outcome 05/03/24 Susan Gray OT Completed Education Documentation ADL Training, taught by Albina Gray OT at 05/20/2024 2:33 PM. Learner: Patient Readiness: Acceptance Method: Explanation, Demonstration, Trench Trimmer Fine Response: Verbalizes Understanding, Needs Reinforcement Home Exercise Program, taught by Albina Gray OT at 05/20/2024 2:33 PM. Learner: Patient Readiness: Acceptance Method: Explanation, Demonstration, Trench Trimmer Fine Response: Verbalizes Understanding, Needs Reinforcement Body Mechanics, taught by Albina Gray OT at 05/20/2024 2:33 PM. Learner: Patient Readiness: Acceptance Method: Explanation, Demonstration, Trench Trimmer Fine Response: Verbalizes Understanding, Needs Reinforcement Education Comments No comments found. Start/Stop Time OT Time Calculation OT Start Time: 1230 OT Stop Time: 1400 OT Time Calculation (min): 90 min Therapy Minutes: Occupational Therapy OT Individual: 90 * Neida Bailey DO - 05/20/2024 10:25 AM EST Images from the original note were not included. [facility] Daily Progress Note Patient name: Amalia Ann : 1975 SUBJECTIVE: Patient seen and examined at bedside today. No acute events overnight. Denies headaches, dizziness,shortness of breath, chest pain, nausea, constipation, and pain. Reports that left lower extremity strength is improving with therapies once again. TEAM CONFERENCE: I was present and participated in team meeting today. I agree with team conferenceplan as documented in alternate note today. Please refer to team conference note for further details. OBJECTIVE: Vitals: 05/19/24 0732 05/19/24 1523 05/20/24 0221 05/20/24 0832 BP: (!) 144/68 133/86 (!) 142/85 135/64 BP Location: Right arm Left arm Right arm Patient Position: Lying Lying Lying Pulse: 59 70 82 63 Resp: 16 16 18 Temp: 36.8 ??C (98.2 ??F) 36.1 ??C (97 ??F) 36.6 ??C (97.9 ??F) 36.8 ??C (98.2 ??F) TempSrc: Oral Oral Oral SpO2: 99% 100% 97% 99% Weight: Height: Physical Examination: General: Alert, in no acute cardiopulmonary distress. Mental Status: Oriented to person, place and time. Normal affect. Head: Normocephalic. Eyes: Extraocular muscles grossly intact. Ear, Nose and Throat: Oropharynx clear, mucous membranes moist. Ears and nose without masses, lesions or deformities. Neck: Supple, Trachea midline. Respiratory: Clear to auscultation and percussion. No wheezing, rales or rhonchi. Cardiovascular: Heart sounds normal. No thrills. Regular rate and rhythm, no murmurs, rubs or gallops. Gastrointestinal: Abdomen soft, non-tender, non-distended. Normal bowel sounds. Neurologic: Cranial nerves II-XII grossly intact. Moves all extremities spontaneously. Sensation intact bilaterally. +left hemiparesis Skin: No rashes or lesions. No petechiae or purpura. No edema. Musculoskeletal: No cyanosis or clubbing. No gross deformities. Normal range of motion. Strength 3/5 left shoulder abduction, 3/5 left elbow flexion, 1/5 left wrist extension, 1/5 left finger flexion. Strength 4/5 left hip flexion and knee extension. Left dorsiflexion strength 1/5. CURRENT INPATIENT MEDICATIONS: Current Facility-Administered Medications: acetaminophen (TYLENOL) tablet 650 mg, 650 mg, oral, q6h PRN, BRAD Hicks, 650 mg at aluminum-magnesium hydroxide-simethicone (MAALOX) 200-200-20 mg/5 mL suspension 30 mL, 30 mL, oral,q4h PRN, BRAD Hicks, 30 mL at 05/06/24 0354 amLODIPine (NORVASC) tablet 5 mg, 5 mg, oral, Daily, Leah Philippe NP, 5 mg at 834 aspirin EC tablet 81 mg, 81 mg, oral, Daily, BRAD Hicks, 81 mg at 05/20/24 0834 cholecalciferol (VITAMIN D-3) tablet 2,000 Units, 2,000 Units, oral, Daily, Leah Philippe NP, 2,000 Units at 05/20/24 0834 clopidogreL (PLAVIX) tablet 75 mg, 75 mg, oral, Daily, BRAD Hicks, 75 mg at 05/20/24 0834 cyanocobalamin (VITAMIN B-12) injection 1,000 mcg, 1,000 mcg, intramuscular, Daily, Leah Philippe NP, 1,000 mcg at 05/20/24 0834 [START ON 05/24/2024] cyanocobalamin (VITAMIN B-12) tablet 1,000 mcg, 1,000 mcg, oral, Daily, Leah Philippe NP dextrose (D50W) 50% injection 12.5 g, 12.5 g, intravenous, q15 min PRN, BRAD Hicks dextrose (D50W) 50% injection 25 g, 25 g, intravenous, q15 min PRN, BRAD Hicks dextrose 15 gram/60 mL oral solution 15 g, 15 g, oral, q15 min PRN, BRAD Hicks dextrose 15 gram/60 mL oral solution 30 g, 30 g, oral, q15 min PRN, BRAD Hicks enoxaparin (LOVENOX) injection 40 mg, 40 mg, subcutaneous, q24h KATIE, Leah Philippe NP, 40 mg at 05/20/24 0834 glipiZIDE (GLUCOTROL) tablet 5 mg, 5 mg, oral, q AM AC, BRAD Viramontes, 5 mg at 05/20/24 0834 Glucagon HCl (rDNA) injection 1 mg, 1 mg, intramuscular, Once PRN, BRAD Hicks hydrALAZINE (APRESOLINE) tablet 10 mg, 10 mg, oral, TID PRN, BRAD Viramontes insulin lispro injection 2-12 Units, 2-12 Units, subcutaneous, TID AC, Neida Bailey DO, 2 Units at 05/18/24 0746 magnesium hydroxide (MILK OF MAGNESIA) 400 mg/5 mL suspension 30 mL, 30 mL, oral, Daily PRN, BRAD Rojas, 30 mL at 04/23/24 0529 magnesium oxide (MAG-OX) tablet 400 mg, 400 mg, oral, Daily, Leah Brenner NP, 400 mg at 05/20/24 0834 metFORMIN (GLUCOPHAGE) tablet 500 mg, 500 mg, oral, BID with meals, Leah Philippe NP, 500 mg at 05/20/24 0834 sodium chloride 0.9 % flush 3 mL, 3 mL, intravenous, q8h, Neida Bailey DO, 3 mL at 554 traMADoL (ULTRAM) tablet 25 mg, 25 mg, oral, q6h PRN, Radhika Barber NP, 25 mg at 05/06/242031 LABS: Lab Results Component Value Date WBC 7.5 05/17/2024 RBC 3.90 05/17/2024 HGB 11.9 05/17/2024 HCT 34.5 (L) 05/17/2024 MCV 88.0 05/17/2024 MCHC 34.5 05/17/2024 RDW 12.9 05/17/2024 PLT 317 05/17/2024 MPV 11.8 (H) 05/17/2024 NRBC 0.0 05/17/2024 DIFF Lab Results Component Value Date LYMPHOPCT 10.4 05/06/2024 NEUTROABS 7.49 (H) 05/06/2024 LYMPHSABS 0.92 (L) 05/06/2024 MONOABS 0.33 05/06/2024 EOSABS 0.02 05/06/2024 BASOSABS 0.02 05/06/2024 IMMGRANABS 0.03 05/06/2024 RETIC No results found for: RETIC , RETICCTPCT Lab Results Component Value Date NA 137 05/18/2024 K 4.3 05/18/2024 CL 105 05/18/2024 CO2 29 05/18/2024 GLUCOSE 115 (H) 05/20/2024 BUN 16 05/18/2024 CREATININE 0.92 05/18/2024 CALCIUM 8.3 (L) 05/18/2024 PROT 6.1 05/18/2024 ALBUMIN 2.9 (L) 05/18/2024 BILITOT 0.2 05/18/2024 AST 20 05/18/2024 ALT 32 05/18/2024 MG 1.8 (L) 05/18/2024 ALKPHOS 88 05/18/2024 CKTOTAL 31 05/13/2024 EGFR 78 05/18/2024 IMPRESSION & PLAN: #Impaired mobility and self care -secondary to CVA -continue PT, OT, LOGISTICIAN, and nursing care #Acute anterior right pontine stroke #Left hemiparesis #Dysarthria -Aspirin 81mg daily -Plavix 75mg daily -Atorvastatin 80mg nightly discontinued on 05/17 due to weakness, monitor -CT head 05/07/24 There is subtle hypoattenuation in the rightward srinivas correlating with an infarctdemonstrated on the comparison MRI. No acute hemorrhage or other acute superimposed findings. -05/09 due to continued worsening weakness MRI brain ordered also reached out to Dr Reynoso at [facility] to inform of changes in neurostatus --> no response from Dr Reynoso, MRI brain 05/10 redemonstrated prior known infarcts -continue therapies -f/u Neurology after discharge #Dysphagia -regular diet with thin liquids -continue LOGISTICIAN #Hypertension -Lisinopril 10mg daily increased to 20mg daily on 04/25 --> discontinued 05/01 due to complaintsof itchiness to her throat -Amlodipine 5mg daily started 04/28 #Diabetes mellitus type 2 -noncompliant with treatment prior to admission -continue diabetic education -will need glucometer and supplies on discharge -ISS -Lantus 22 units QHS decreased to 10 units QHS on 05/02 --> discontinued on 05/03 -Metformin 500mg BID started 04/28 -Glipizide 5mg daily started 05/03 #Hypomagnesemia -Magnesium oxide 400mg daily started 05/18 #Bladder management -UA 05/06 negative for UTI -UA 05/16 negative for UTI #Bowel management -Colace and Senna discontinued on 05/01 due to loose stools -monitor #DVT prophylaxis: Lovenox 40mg daily * Elzbieta Garcia, PT - 05/20/2024 9:51 AM EST [facility] Physical Therapy Treatment Note 05/20/2024 Patient: Amalia Ann : 1975 Age: 48 y.o. Gender: female Primary Language: Barbadian Diagnosis: No Principal Problem: There is no principal problem currently on the Problem List. Please update the Problem List and refresh. Past Medical History: Diagnosis Date CVA (cerebral vascular accident) ([facility]) DM (diabetes mellitus) ([facility]) HTN (hypertension) History reviewed. No pertinent surgical history. Allergies: is allergic to lisinopril. Precautions: Medical Precautions: Fall Risk Safety Interventions: Call noriega within reach Swallow Precautions: Modified Diet RUE Weight Bearing Status: Full LUE Weight Bearing Status: Full, As Tolerated RLE Weight Bearing Status: Full LLE Weight Bearing Status: Full SUBJECTIVE Pt report: My balance was better Pain: Pt endorsing pain in IV, DINH Burton made aware OBJECTIVE General Observation: Supine in bed agreeable to participating in therapy session. Procedure/Treatment: Neuromuscular Reeducation: Balance/Neuromuscular Re-Education Neuromuscular Re-Education Time Entry: 90 Patient in Bed agreeable to participating in therapy session. Pt completed stand pivot transfer partial A for more than steadying assistance. Pt donning sneaker on L foot, pt needing assistance with tying L shoe. Pt completed WC mobility down to therapy gym in WC, SUP. Video automatic embroidery machine tender [id number] usedfor therapy session. Therapist completing skin check on RLE, skin intact, therapist donning AFO andshoe for ambulation. Pt endorsing pain in R forearm with IV, DINH Burton made aware. Pt completed 2x10ft, 4x25ft steadying assistance with LBQC, pt with small instances of LOB d/t attempting step through gait pattern, pt aware and able to self correct. Pt improving with stance phase control with step to pattern with LBQC, pt having x1 instance of hyperextension during stance phase on LLE. Pt completed x2 FOS with seated rest break in between FOS, steadying assistance with AFO donned, pt ascending forwards step to pattern, descending forwards step to. Pt completed x8 staris with R ascending rail, ascending forwards step to pattern, descending backwards step to, steadying assistance ascending step, partial A for descending step for foot placement with AFO donned. Therapist doffing AFO, skin intact. Pt completed 2x10ft of ambulation with LBQC, partial A x1, increased stance phase instability, pt with poor swing phase control. Pt completed x8 stairs ascending forwards ascending with RLE usi ng R rail, pt descending backwards with LLE, partial A for ascending and descending steps, pt with poor foot clearance on LLE d/t decreased DF, pt with increased incident of buckling on LLE when descending step. Pt completed 2x10ft of ambulation no AFO, with LBQC, partial A for more than steadying assistance. Pt completed WC mobility back to room, pt able to lock brakes without cues, pt needing assistance with removal of leg rest. Pt completed partial A stand pivot transfer to EOB, SUP bed mobility. Pt left supine in bed, call noriega in reach, bed alarm on, all needs met. Education: Education Documentation Mobility Training, taught by Elzbieta Garcia PT at 05/20/2024 10:09 AM. Learner: Patient Readiness: Acceptance Method: Demonstration, Explanation, Trench Trimmer Fine Response: Demonstrated Understanding, Verbalizes Understanding Comment: Dynamic gait and balance, endurance, DME Education Comments No comments found. ASSESSMENT Pt with improved foot clearance and needing less physical assistance on stairs with use of toe off AFO. Pt to benefit from continued stair training descending steps backwards to simulate home environment. Equipment: TBD Plan of Care Plan Treatment/Interventions: (As per IE) PT Plan: Skilled PT PT Frequency: 5-7 days per week PT Duration of Sessions: 60-90 min per session PT Treatments per day: 1-2 times per day Equipment Recommended: TBD Barriers to Discharge: home environment, medical condition PT - Evaluation Status: Complete Problems/Goals Goals: Encounter Problems Encounter Problems (Active) Template: Physical Therapy Problem: PT Chcf Goals Dates: Start: 04/20/24 Goal: mod I bed mobility Dates: Start: 04/20/24 Expected End: 05/11/24 Outcomes Date/Time User Outcome 05/20/24 1002 Elzbieta Garcia PT Progressing Goal: mod I transfers with LAD Dates: Start: 04/20/24 Expected End: 05/11/24 Outcomes Date/Time User Outcome 05/20/24 1002 Elzbieta Gracia PT Progressing Goal: mod I wc mobility 150' Dates: Start: 04/20/24 Expected End: 05/11/24 Outcomes Date/Time User Outcome 05/20/24 1002 Elzbieta Garcia PT Progressing Goal: up/dn 4 flights of stairs min A Dates: Start: 04/20/24 Expected End: 05/11/24 Outcomes Date/Time User Outcome 05/20/24 1002 Elzbieta Garcia PT Progressing Goal: Ambulate x50ft LRAD SUP Dates: Start: 05/20/24 Outcomes Date/Time User Outcome 05/20/24 1002 Elzbieta Garcia PT Progressing Encounter Problems (Resolved) Template: Physical Therapy Problem: PT Short Term Goals Dates: Start: 04/20/24 Resolved: 05/20/24 Goal: Pt will perform bed mobility min A (Resolved) Dates: Start: 04/20/24 Expected End: 04/27/24 Resolved: 05/17/24 Outcomes Date/Time User Outcome 05/17/24 1403 Elzbieta Garcia PT Completed Goal: Pt will transfer with min A (Resolved) Dates: Start: 04/20/24 Expected End: 04/27/24 Resolved: 05/20/24 Outcomes Date/Time User Outcome 05/20/24 1001 Elzbieta Garcia PT Completed Goal: Pt will ambulate 25' with LAD mod A (Resolved) Dates: Start: 04/20/24 Expected End: 04/27/24 Resolved: 05/20/24 Outcomes Date/Time User Outcome 05/20/24 1001 Elzbieta Garcia PT Completed Goal: Assess stairs as appropriate (Resolved) Dates: Start: 04/20/24 Expected End: 04/27/24 Resolved: 05/06/24 Outcomes Date/Time User Outcome 05/06/24 1038 Elzbieta Garcia PT Completed Goal: Supervision wc mobility and mgmt 150' (Resolved) Dates: Start: 04/20/24 Expected End: 04/27/24 Resolved: 05/06/24 Description: Outcomes Date/Time User Outcome 05/06/24 1038 Elzbieta Garcia PT Completed Session Start/Stop Time: 929 1100 Therapy Minutes Physical Therapy PT Individual: 90 * Sheron Dye - 05/20/2024 8:40 AM EST Social Work Note 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 She reports that she continues to work hard to get home on the . She appears to be positive and her anxiety has lessened. Will continue to monitor. Sheron Dye MS Clinician * Isi Varghese RN - 05/20/2024 2:33 AM EST Goals: Clinical Goals for the Shift: To stay free from falls. Identify possible barriers to meeting goals/advancing plan of care: Pt continues to progress towardrehab goals Stability of the patient: Moderately Unstable - Medium risk of patient condition declining or worsening End of Shift Summary: Pt rang call noriega and requested assistance to BR. Bed alarm on. Call noriega within reach. Bed locked/low. Denies pain. * Kaci Renteria RN - 05/19/2024 3:22 PM EST Goals: Clinical Goals for the Shift: To stay free from falls. Identify possible barriers to meeting goals/advancing plan of care: PAST HX CVA, DIABETES Stability of the patient: Moderately Stable - Low risk of patient condition declining or worsening End of Shift Summary: pt had rest day today, spent time on phone, OOB for meals * Leah Philippe NP - 05/19/2024 10:13 AM EST Images from the original note were not included. VEE PROGRESS NOTE Date: 05/19/2024 Author: Leah Philippe NP Patient ID: Amalia Ann is a 48 y.o. female : 1975 MR#: [id number] SUBJECTIVE No complaints No increased weakness patient states she feels as though her weakness is improving on the left Eating and drinking fair S/p mag for hypomag- IV-tolerating p.o. mag denies diarrhea Slept well Moving BB amLODIPine, 5 mg, oral, Daily aspirin, 81 mg, oral, Daily clopidogreL, 75 mg, oral, Daily enoxaparin, 40 mg, subcutaneous, q24h KATIE glipiZIDE, 5 mg, oral, q AM AC insulin lispro, 2-12 Units, subcutaneous, TID AC magnesium oxide, 400 mg, oral, Daily metFORMIN, 500 mg, oral, BID with meals PRN medications: acetaminophen, aluminum-magnesium hydroxide-simethicone, dextrose 50%, dextrose 50%, dextrose, dextrose, glucagon injection, hydrALAZINE, magnesium hydroxide, traMADoL ROS: CHEST: no sob, coughing HEART: no chest pain, orthopnea GI: no abd pain, or N/V. : No dysuria or frequency EXT: no leg pain or swelling Neuro as above OBJECTIVE Vitals: 05/18/24 1200 05/18/24 1524 05/19/24 0424 05/19/24 0732 BP: (!) 143/74 (!) 135/93 (!) 142/75 (!) 144/68 BP Location: Right leg Left arm Right arm Right arm Patient Position: Lying Lying Lying Lying Pulse: 72 73 64 59 Resp: 18 18 16 Temp: 37 ??C (98.6 ??F) 36.6 ??C (97.9 ??F) 36.8 ??C (98.2 ??F) TempSrc: Oral Oral Oral SpO2: 99% 99% Weight: Height: Physical exam General: AAO NAD HEENT: pupils are equal round and reactive. extraocular movements are grossly intact lungs clear to auscultation, no wheezing or crackles noted heart regular rate and rhythm, no murmur or rubs abdomen soft nontender nondistended positive bowel sounds Musculoskeletal: No gross deformity to joints extremities without edema, erythema or calf tenderness neuro: Left-sided weakness, dysarthria -clinically stable skin: no rashes or lesions. psych: mood stable appearing, good eye contact. LABS HEMATOLOGY Lab Results Component Value Date WBC 7.5 05/17/2024 HGB 11.9 05/17/2024 HCT 34.5 (L) 05/17/2024 MCV 88.0 05/17/2024 PLT 317 05/17/2024 CHEMISTRY Lab Results Component Value Date GLUCOSE 134 (H) 05/19/2024 NA 137 05/18/2024 K 4.3 05/18/2024 CO2 29 05/18/2024 CL 105 05/18/2024 BUN 16 05/18/2024 CREATININE 0.92 05/18/2024 EGFR 78 05/18/2024 CALCIUM 8.3 (L) 05/18/2024 MG 1.8 (L) 05/18/2024 ANIONGAP 3 05/18/2024 Imaging: MR Brain wo Contrast Addendum: ADDENDUM: This report was discussed with Neto TAO on May 10, 2024 01:13:00 EST. This document has been electronically signed by: Yuly Cleveland on 05/10/2024 01:14:01 Narrative: MRI BRAIN WITHOUT CONTRAST COMPARISON: CT brain [...] dimensions are difficult to quantify but a pharmaceutical representative measurement on image 21 of series 3 is 1.2 x 0.5 cm. On images 22-23 of series 3 is an area of restricted diffusion in the midline and right paracentral region of the srinivas, also compatible with an acute infarct. This is also difficult to accurately measure but a pharmaceutical representative measurement on image 22 is approximately [...] collection. Clivus and craniocervical junction are unremarkable. Impression: 1. The patient has a reported history [...] by: Krishan Oden M.D. on 05/10/2024 01:06:25 ASSESSMENT & PLAN Anterior right pontine stroke Patient had a recent small right pontine CVA on 03/26 and is on aspirin and Plavix. Now with new anterior right pontine stroke Suspect secondary to intrinsic atherosclerotic disease likely compensation/benefits specialist now occluded CTA shows right V4 high-grade stenosis consistent with right hemispheric stroke per neurology. MRI of the brain showed acute subacute right pontine infarct without hemorrhagic transformation. Prior stroke workup with normal ESR CRP lupus anticoagulant RF SSA, SSB a and CA, beta-2 glycoprotein, anticardiolipin antibody, LP with 3 WBCs homocystine level of 6.9 LDL of 39 A1c was 12.4. Echocardiogram on 04/16 shows normal LV systolic function EF of 55 to 65% . Does not appear that shehad a bubble study done. EKG normal sinus rhythm septal infarct age undetermined per neurology recommendations were to continue aspirin Plavix and high dose statin Per rehab team Sequela -dysarthria, left facial droop left-sided weakness left upper stronger than the left lower. ASA, Plavix and Statin Lipitor 80 mg of note LDL 39 Patient was reporting increased weakness left arm Repeat Brain CT on 05/07/2024 showing no acute hemorrhage and no other acute superimposed findings MRI of the brain showed motion artifact however did show reported chronic CVAs in the rt pontine area, age-indeterminate. No acute findings General weakness CK was negative vitamin D was low on repletion mag was found to be 1.4 status post repletion patient was clinicallydry it recommended IV fluid Lipitor on hold due to risk of statin myopathy LDL is 39 restart statin at a much lower dose Patient is clinically improved Vitamin B12 is 233 vitamin D is 25 replete no signs of infection Diabetes mellitus A1c greater than 12. seen by endocrine. Continue Metformin Continue Glipizide POC 1 24-140s Improved glycemic control Hypertension Blood pressure in the 130s to 190s Norvasc 5mg Off lisinopril due to hx of allergic reaction BP acceptable range DVT prophylaxis Continue Lovenox FULL CODE * Isi Varghese RN - 05/19/2024 6:21 AM EST Goals: Clinical Goals for the Shift: To stay free from falls. Identify possible barriers to meeting goals/advancing plan of care: Pt continues to progress towardrehab goals Stability of the patient: Moderately Unstable - Medium risk of patient condition declining or worsening End of Shift Summary: Resting quietly Problem: Cognitive: Catrachita Kaiser Fall Risk Goal: Last Known Fall Outcome: Progressing Goal: Mobility requiring assistance of person or device Outcome: Progressing Goal: Dizziness Outcome: Progressing Goal: Medications Outcome: Progressing Goal: Mental Status/LOC/Awareness Outcome: Progressing Goal: Toileting Needs Outcome: Progressing Goal: Volume and Electrolyte Status Outcome: Progressing Goal: Communication/Sensory Outcome: Progressing Goal: Behavior Outcome: Progressing Problem: Skin Integrity: Pressure Injury Actual or Risk of Goal: Will not develop new pressure injury Outcome: Progressing Goal: Skin integrity will improve Outcome: Progressing in bed throughout night. Call noriega within reach. Bed alarm on, bed locked/low. * Kaci Renteria RN - 05/18/2024 3:13 PM EST Goals: Clinical Goals for the Shift: To stay free from falls. Identify possible barriers to meeting goals/advancing plan of care: language barrier, hx of CVA Stability of the patient: Moderately Stable - Low risk of patient condition declining or worsening End of Shift Summary: pt having rest day today and appetite good. PO Mg taken well * RICHIE Lucas - 05/18/2024 1:03 PM EST [facility] Occupational Therapy Treatment Note 05/18/24 Patient: Amalia Ann : 1975 Age: 48 y.o. Gender: female Diagnosis: No Principal Problem: There is no principal problem currently on the Problem List. Please update the Problem List and refresh. Primary Rehab (Etiologic) Diagnosis: Patient Active Problem List Diagnosis HTN (hypertension) DM (diabetes mellitus) ([facility]/HCC) CVA (cerebral vascular accident) ([facility]) PMH: Past Medical History: Diagnosis Date CVA (cerebral vascular accident) ([facility]/HCC) DM (diabetes mellitus) ([facility]) HTN (hypertension) PSH: History reviewed. No pertinent surgical history. Allergies: is allergic to lisinopril. Precautions: Precautions Medical Precautions: Fall Risk Safety Interventions: Call noriega within reach Swallow Precautions: Modified Diet RUE Weight Bearing Status: Full LUE Weight Bearing Status: Full, As Tolerated RLE Weight Bearing Status: Full LLE Weight Bearing Status: Full Vitals: BP: (!) 143/74 Heart Rate: 72 Pain: Pain Assessment Pain Assessment: 0-10 Pain Score: 8 Pain Type: Acute pain Pain Location: Shoulder Pain Orientation: Left Pain Interventions: Cold applied Response to Interventions: Pain lessoned Subjective: I want to shower Procedures/Interventions: Pt semi supine at start of session, automatic embroidery machine tender used, pt amenable to session. Vitals taken, see flowsheet. Pt requested showering at this time. Pt completed SPT bed<>w/c<>tub transfer bench throughout with partial A and v cues due to flopping in seat and speed. Pt completed bed mobilitywith sup. Pt tranferred to w/c, wheeled to bathroom with tub shower. Pt transferred to extended tubbench. Pt undressed UB with S, LB with touch A and steadying A during standing. Pt doffed socks with supervision. Pt completed UB bathing with supervision, LB bathing with mod A for support during standing, v cues for balance awareness and use of grab bars. Pt dressed UB with partial A for orienting shirt and navigating L UE. Pt dressed LB with partial A for pulling up and threading legs. Pt donned socks with touch A, able to don socks in figure four. Pt transferred from tub transfer bench to w/c, wheeled back to room. Pt completed oral hygiene with set-up, hair combing independently. Pt transferred back to bed at end of session, improvement noted with technique, min A provided during initial stand. Pt reported pain in L shoulder, ice pack provided with pain lessoned. Call noriega and bed alarm in place. ADLs/IADLs Self Care/Home Management (ADLs) Time Entry: 60 ADL/ IADL Performed: Oral Hygiene, Bathing, Dressing, Tub Transfers OT Assessment OT Assessment OT Assessment Results: Decreased ADL status, Decreased upper extremity range of motion, Decreased upper extremity strength, Decreased safe judgment during ADL, Decreased fine motor control, Decreasedfunctional mobility, Decreased gross motor control, Decreased trunk control for functional activities Prognosis: Good Evaluation/Treatment Tolerance: Patient tolerated treatment well Comments: (Completed 90min session. Pt reporting decreased function in LUE and increased frustration with performance. Pt demoing improved ADL performance, however, would benefit from strength/ROM/FMactivities with L UE.) Medical Staff Made Aware: Yes OT Plan Plan Treatment Interventions: ADL retraining, Functional transfer training, Endurance training, UE strengthening/ROM, Equipment evaluation/education, Patient/family training, Fine motor coordination activities, Neuromuscular reeducation OT Plan: Skilled OT OT Frequency : 5-7 days per week OT Duration of Sessions: 60-90 min per session OT Treatments per day: 1 time per day OT - Evaluation Status: Complete Equipment Recommended: (TBD) Goals: Encounter Problems Encounter Problems (Active) Template: Occupational Therapy Problem: OT Chcf Goals Dates: Start: 04/20/24 Goal: Pt will be mod I with LB dressing Dates: Start: 04/20/24 Expected End: 05/18/24 Outcomes Date/Time User Outcome 05/12/24 1217 RICHIE Lucas Progressing Goal: Pt will be mod I with UB dressing Dates: Start: 04/20/24 Expected End: 05/18/24 Outcomes Date/Time User Outcome 05/12/24 1217 RICHIE Lucas Progressing Goal: Pt will be S with bathing Dates: Start: 04/20/24 Expected End: 05/18/24 Outcomes Date/Time User Outcome 05/12/241216 RICHIE Lucas Progressing Goal: Pt will be mod I with toileting including txfer Dates: Start: 04/20/24 Expected End: 05/18/24 Outcomes Date/Time User Outcome 05/12/241216 RICHIE Lucas Progressing Goal: Pt will perform tub txfer with LRAD with S. Dates: Start: 04/20/24 Expected End: 05/18/24 Outcomes Date/Time User Outcome 05/12/247 RICHIE Lucas Progressing Goal: Pt will be mod I with snack/beverage retrieval at LRAD Dates: Start: 04/20/24 Expected End: 05/18/24 Description: Outcomes Date/Time User Outcome 05/12/241216 RICHIE Lucas Progressing Problem: OT Short Term Goals Dates: Start: 05/15/24 Goal: Pt will perform toileting with steadying A with use of LRAD. Dates: Start: 05/15/24 Expected End: 05/22/24 Outcomes Date/Time User Outcome 05/17/24 1248 Joshua Tellez OT Progressing Goal: Pt will perform LB dressing steadying A Dates: Start: 05/15/24 Expected End: 05/22/24 Outcomes Date/Time User Outcome 05/17/24 124Leo Tellez OT Progressing Goal: Pt will perform UB dressing with PETERSON Dates: Start: 05/15/24 Expected End: 05/22/24 Outcomes Date/Time User Outcome 05/17/24 124Leo Tellez OT Progressing Goal: Pt will perform bathing with Steadying A for balance. Dates: Start: 05/15/24 Expected End: 05/22/24 Outcomes Date/Time User Outcome 05/17/24 Rebecca Tellez OT Progressing Goal: Pt will utilize L UE gross assist during oral hygiene tasks. Dates: Start: 05/15/24 Expected End: 05/22/24 Outcomes Date/Time User Outcome 05/17/24 124Leo Tellez OT Progressing Encounter Problems (Resolved) Template: Occupational Therapy Problem: OT Short Term Goals Dates: Start: 04/20/24 Resolved: 05/03/24 Goal: Pt will perform toileting with partial A (Resolved) Dates: Start: 04/20/24 Expected End: 04/27/24 Resolved: 05/03/24 Outcomes Date/Time User Outcome 05/03/24 140Angie Gray OT Completed Goal: Pt will perform LB dressing with partial A (Resolved) Dates: Start: 04/20/24 Expected End: 04/27/24 Resolved: 05/03/24 Outcomes Date/Time User Outcome 05/03/24 Susan Gray OT Completed Goal: Pt will perform bathing with steadying A. (Resolved) Dates: Start: 04/20/24 Expected End: 04/27/24 Resolved: 05/03/24 Outcomes Date/Time User Outcome 05/03/24 140Angie Gray OT Completed Goal: Pt will be able to utilize L UE as an independent stabilizer during grooming tasks (Resolved) Dates: Start: 04/20/24 Expected End: 04/27/24 Resolved: 05/03/24 Outcomes Date/Time User Outcome 05/03/24 Susan Gray OT Completed Goal: Pt will perform UB dressing with PETERSON, with carryover of tasha dressing technique (Resolved) Dates: Start: 04/20/24 Expected End: 04/27/24 Resolved: 05/03/24 Outcomes Date/Time User Outcome 05/03/24 Susan Gray OT Completed Education Documentation ADL Training, taught by RICHIE Lucas at 05/18/2024 1:03 PM. Learner: Patient Readiness: Acceptance Method: Explanation, Demonstration, Trench Trimmer Fine Response: Verbalizes Understanding, Demonstrated Understanding Body Mechanics, taught by RICHIE Lucas at 05/18/2024 1:03 PM. Learner: Patient Readiness: Acceptance Method: Explanation, Demonstration, Trench Trimmer Fine Response: Verbalizes Understanding, Demonstrated Understanding Education Comments No comments found. Start/Stop Time OT Time Calculation OT Start Time: 1200 OT Stop Time: 1300 OT Time Calculation (min): 60 min Therapy Minutes: Occupational Therapy OT Individual: 60 * Leah Philippe NP - 05/18/2024 10:37 AM EST Images from the original note were not included. VEE PROGRESS NOTE Date: 05/18/2024 Author: Leah Philippe NP Patient ID: Amalia Ann is a 48 y.o. female : 1975 MR#: [id number] SUBJECTIVE No complaints No further weakness Eating and drinking fair S/p mag for hypomag- IV Slept well Moving BB amLODIPine, 5 mg, oral, Daily aspirin, 81 mg, oral, Daily clopidogreL, 75 mg, oral, Daily enoxaparin, 40 mg, subcutaneous, q24h KATIE glipiZIDE, 5 mg, oral, q AM AC insulin lispro, 2-12 Units, subcutaneous, TID AC magnesium oxide, 400 mg, oral, Daily metFORMIN, 500 mg, oral, BID with meals PRN medications: acetaminophen, aluminum-magnesium hydroxide-simethicone, dextrose 50%, dextrose 50%, dextrose, dextrose, glucagon injection, hydrALAZINE, magnesium hydroxide, traMADoL ROS: CHEST: no sob, coughing HEART: no chest pain, orthopnea GI: no abd pain, or N/V. : No dysuria or frequency EXT: no leg pain or swelling Neuro as above OBJECTIVE Vitals: 05/17/24 0700 05/17/24 1550 05/18/24 0428 05/18/24 0728 BP: (!) 145/72 (!) 159/78 120/62 136/75 BP Location: Right arm Right arm Right arm Patient Position: Lying Lying Lying Pulse: 61 66 65 65 Resp: 16 18 16 Temp: 36.4 ??C (97.6 ??F) 35.8 ??C (96.5 ??F) 37 ??C (98.6 ??F) TempSrc: Temporal Oral Oral SpO2: 100% 99% 99% Weight: Height: Physical exam General: AAO NAD HEENT: pupils are equal round and reactive. extraocular movements are grossly intact lungs clear to auscultation, no wheezing or crackles noted heart regular rate and rhythm, no murmur or rubs abdomen soft nontender nondistended positive bowel sounds Musculoskeletal: No gross deformity to joints extremities without edema, erythema or calf tenderness neuro: Left-sided weakness, dysarthria -clinically stable skin: no rashes or lesions. psych: mood stable appearing, good eye contact. LABS HEMATOLOGY Lab Results Component Value Date WBC 7.5 05/17/2024 HGB 11.9 05/17/2024 HCT 34.5 (L) 05/17/2024 MCV 88.0 05/17/2024 PLT 317 05/17/2024 CHEMISTRY Lab Results Component Value Date GLUCOSE 175 (H) 05/18/2024 NA 137 05/18/2024 K 4.3 05/18/2024 CO2 29 05/18/2024 CL 105 05/18/2024 BUN 16 05/18/2024 CREATININE 0.92 05/18/2024 EGFR 78 05/18/2024 CALCIUM 8.3 (L) 05/18/2024 MG 1.8 (L) 05/18/2024 ANIONGAP 3 05/18/2024 Imaging: MR Brain wo Contrast Addendum: ADDENDUM: This report was discussed with Neto TAO on May 10, 2024 01:13:00 EST. This document has been electronically signed by: Yuly Cleveland on 05/10/2024 01:14:01 Narrative: MRI BRAIN WITHOUT CONTRAST COMPARISON: CT brain [...] dimensions are difficult to quantify but a pharmaceutical representative measurement on image 21 of series 3 is 1.2 x 0.5 cm. On images 22-23 of series 3 is an area of restricted diffusion in the midline and right paracentral region of the srinivas, also compatible with an acute infarct. This is also difficult to accurately measure but a pharmaceutical representative measurement on image 22 is approximately [...] collection. Clivus and craniocervical junction are unremarkable. Impression: 1. The patient has a reported history [...] by: Krishan Oden M.D. on 05/10/2024 01:06:25 ASSESSMENT & PLAN Anterior right pontine stroke Patient had a recent small right pontine CVA on 03/26 and is on aspirin and Plavix. Now with new anterior right pontine stroke Suspect secondary to intrinsic atherosclerotic disease likely compensation/benefits specialist now occluded CTA shows right V4 high-grade stenosis consistent with right hemispheric stroke per neurology. MRI of the brain showed acute subacute right pontine infarct without hemorrhagic transformation. Prior stroke workup with normal ESR CRP lupus anticoagulant RF SSA, SSB a and CA, beta-2 glycoprotein, anticardiolipin antibody, LP with 3 WBCs homocystine level of 6.9 LDL of 39 A1c was 12.4. Echocardiogram on 04/16 shows normal LV systolic function EF of 55 to 65% . Does not appear that shehad a bubble study done. EKG normal sinus rhythm septal infarct age undetermined per neurology recommendations were to continue aspirin Plavix and high dose statin Per rehab team Sequela -dysarthria, left facial droop left-sided weakness left upper stronger than the left lower. ASA, Plavix and Statin Lipitor 80 mg of note LDL 39 Patient was reporting increased weakness left arm Repeat Brain CT on 05/07/2024 showing no acute hemorrhage and no other acute superimposed findings MRI of the brain showed motion artifact however did show reported chronic CVAs in the rt pontine area, age-indeterminate. No acute findings General weakness CK was negative mag was found to be 1.4 status post repletion patient was clinically dry it recommended IV fluid Lipitor on hold due to risk of statin myopathy LDL is 39 restart statin at a much lower dose Patient is clinically improved Add vitamin B12 and vitamin D levels patient has no signs of infection Diabetes mellitus A1c greater than 12. seen by endocrine. Continue Metformin Continue Glipizide POC 1 24-140s Improved glycemic control Hypertension Blood pressure in the 130s to 150s Norvasc 5mg Off lisinopril due to hx of allergic reaction BP acceptable range DVT prophylaxis Continue Lovenox FULL CODE * Sherri Rendon, LOGISTICIAN - 05/17/2024 3:42 PM EST Speech Language Pathology Speech Language Pathology Treatment Subjective LOGISTICIAN Start Time: 0 LOGISTICIAN Stop Time: 1530 LOGISTICIAN Time Calculation (min): 60 min Subjective: Pt was alert and sitting upright in bed for the session. Pt reported fatigue from othertherapy session but was agreeable to session. president practicing urologist Viridiana, #[id number], was used for thesession. Objective General Visit Info General Family/Caregiver Present: No Treatment Speech and Language Speech Treatment (Individual) Time Entry: 20 Speech: Pt was able to read paragraphs of an article w/ 85-100% inteiligiblity w/ aid from automatic embroidery machine tender. Pt reported that she feels like her speech has improved and engaged in a conversation about d/cgoal for inteligiblity. Pt reported that she would like to work on her speech for a couple more sessions. Cognitive Skills Therapeutic Interventions Cognitive Skills Direct Contact Time Entry: 40 Sequencing: Pt was able to complete sequencing task related to ADLs w/ 80% accuracy indep. and 100%given min A for organization Problem Solving: Pt was able to answer [...] 100% given min A for appropriate solutions. Assessment/Plan LOGISTICIAN Assessment LOGISTICIAN Assessment Results: Cognitive impairments Evaluation/Treatment Tolerance: Patient tolerated treatment well Plan Treatment/Interventions: Cognitive linguistic functioning LOGISTICIAN Plan: Skilled LOGISTICIAN LOGISTICIAN Frequency: 5-7 days per week LOGISTICIAN Duration of Sessions: 30-60 min per session Goals Encounter Problems Encounter Problems (Active) Template: Speech Therapy Problem: Cognitive/Linguistics Dates: Start: 04/20/24 Goal: Patient will participate in further assessment of cognitive-linguistic skills (Resolved) Dates: Start: 04/20/24 Expected End: 05/04/24 Resolved: 05/01/24 Description: Goal Type: STG, Performance Level: Independent Outcomes Date/Time User Outcome 05/01/24 0920 MARIE Shrestha Completed Goal: Patient will identify and utilize problem-solving intervention for task completion at 90% accuracy given min A (Resolved) Dates: Start: 04/20/24 Expected End: 05/17/24 Resolved: 05/15/24 Description: Goal Type: STG, Performance Level: Min assist Outcomes Date/Time User Outcome 05/15/24 1515 MARIE Arroyo Completed Goal: Patient will complete simple calculations for time/money management at 90% accuracy given Mauro Dates: Start: 04/20/24 Expected End: 05/22/24 Description: Goal Type: STG, Performance Level: Min assist Outcomes Date/Time User Outcome 05/17/24 1541 MARIE Arroyo Not Progressing Goal: Pt will improve intelligibility at the sentence/conversational level to baseline given min A for speech strategies. (Resolved) Dates: Start: 04/21/24 Expected End: 04/28/24 Resolved: 04/26/24 Description: Outcomes Date/Time User Outcome 04/26/24 1127 MARIE Arroyo Completed Goal: Pt will improve delayed recall of functional information given min A for encoding and min A for retrieval - 90% accuracy (Resolved) Dates: Start: 04/22/24 Expected End: 05/17/24 Resolved: 05/15/24 Description: Outcomes Date/Time User Outcome 05/15/24 1522 MARIE Arroyo Completed Goal: Pt will complete basic to mod level auditory/visual attention tasks - 90% accuracy given mod A. (Resolved) Dates: Start: 04/23/24 Expected End: 05/07/24 Resolved: 05/10/24 Description: Outcomes Date/Time User Outcome 05/10/24 1139 MARIE Arroyo Completed Goal: Pt will participate in sequencing/direction following tasks related to functional/ADL tasks given min A- 90% accuracy. Dates: Start: 04/24/24 Expected End: 05/22/24 Description: Outcomes Date/Time User Outcome 05/14/24 1051 MARIE Arroyo Not Progressing Goal: Pt will improve intelligibility at the paragraph/conversational level to baseline and independent w/ use of strategies Dates: Start: 04/26/24 Expected End: 05/22/24 Description: Outcomes Date/Time User Outcome 05/17/24 1541 MARIE Arroyo Progressing Goal: Pt will complete mod to higher level auditory/visual attention tasks - 90% accuracy given Mauro. (Resolved) Dates: Start: 05/10/24 Expected End: 05/17/24 Resolved: 05/15/24 Description: Outcomes Date/Time User Outcome 05/15/24 1521 MARIE Arroyo Completed Goal: Pt will improve complex attention for visual and/or auditory tasks to 90% accuracy indep. w/ use of strategies Dates: Start: 05/15/24 Expected End: 05/22/24 Description: Outcomes Date/Time User Outcome 05/17/24 154MARIE Mcgill Not Progressing Goal: Pt will improve delayed recall of functional information given min A for encoding and indep. for retrieval - 90% accuracy Dates: Start: 05/15/24 Expected End: 05/22/24 Description: Outcomes Date/Time User Outcome 05/16/24 1146 MARIE Arroyo Progressing Goal: Pt will improve higher level problem-solving/reasoning skills to 90% with min A. Dates: Start: 05/15/24 Expected End: 05/22/24 Description: Outcomes Date/Time User Outcome 05/17/24 1541 MARIE Arroyo Progressing Encounter Problems (Resolved) Template: Speech Therapy Problem: Swallowing Dates: Start: 04/20/24 Resolved: 04/23/24 Goal: Patient will tolerate the least restrictive diet consistency to allow for safe consumption ofdaily meals (Resolved) Dates: Start: 04/20/24 Expected End: 05/04/24 Resolved: 04/23/24 Description: Outcomes Date/Time User Outcome 04/23/24 1253 MARIE Shrestha Completed Goal: Patient will demonstrate safe swallowing Intervention/techniques (Resolved) Dates: Start: 04/20/24 Expected End: 05/04/24 Resolved: 04/23/24 Description: Outcomes Date/Time User Outcome 04/23/24 1253 MARIE Shrestha Completed Education Documentation Speech/Language, taught by MARIE Arroyo at 05/17/2024 3:42 PM. Learner: Patient Readiness: Acceptance Method: Explanation Response: Verbalizes Understanding Cognition, taught by MARIE Arroyo at 05/17/2024 3:42 PM. Learner: Patient Readiness: Acceptance Method: Explanation Response: Verbalizes Understanding Education Comments No comments found. Associated attestation - Jen Duque SLP - 05/17/2024 5:08 PM EST I attest that I, Amber Duque M.S.,[facility]-LOGISTICIAN, was physically involved in the ongoing assessment, decision making, and interventions provided during today's patient care session. I have reviewed all documentation for today's 05/17/24, entered by Speech Therapy Fellow, Sherri Rendon, and furtherattest that it is an accurate clinical record of today's encounter, including accurate and appropriate charges. * Neida A Lynn, DO - 05/17/2024 2:54 PM EST Images from the original note were not included. [facility] Daily Progress Note Patient name: Amalia Ann : 1975 SUBJECTIVE: Patient seen and examined at bedside today. No acute events overnight. Denies headaches, dizziness,shortness of breath, chest pain, nausea, constipation, and pain. Reports continued left upper and lower extremity weakness. Denies any worsening weakness today. No new concerns today. Participating in therapies: Partial assist x1 for ambulation 35 feet. OBJECTIVE: Vitals: 05/16/24 1639 05/17/24 0047 05/17/24 0615 05/17/24 0700 BP: (!) 141/79 (!) 166/81 (!) 153/77 (!) 145/72 BP Location: Right arm Right arm Patient Position: Lying Pulse: 66 70 61 61 Resp: 16 16 16 Temp: 36.2 ??C (97.1 ??F) 36.8 ??C (98.2 ??F) 36.7 ??C (98 ??F) TempSrc: Temporal SpO2: 100% 100% Weight: Height: Physical Examination: General: Alert, in no acute cardiopulmonary distress. Mental Status: Oriented to person, place and time. Normal affect. Head: Normocephalic. Eyes: Extraocular muscles grossly intact. Ear, Nose and Throat: Oropharynx clear, mucous membranes moist. Ears and nose without masses, lesions or deformities. Neck: Supple, Trachea midline. Respiratory: Clear to auscultation and percussion. No wheezing, rales or rhonchi. Cardiovascular: Heart sounds normal. No thrills. Regular rate and rhythm, no murmurs, rubs or gallops. Gastrointestinal: Abdomen soft, non-tender, non-distended. Normal bowel sounds. Neurologic: Cranial nerves II-XII grossly intact. Moves all extremities spontaneously. Sensation intact bilaterally. +left hemiparesis Skin: No rashes or lesions. No petechiae or purpura. No edema. Musculoskeletal: No cyanosis or clubbing. No gross deformities. Normal range of motion. Strength 3/5 left shoulder abduction, 3/5 left elbow flexion, 1/5 left wrist extension, 1/5 left finger flexion. Antigravity strength left hip flexion and knee extension. Left dorsiflexion strength 1/5. CURRENT INPATIENT MEDICATIONS: Current Facility-Administered Medications: acetaminophen (TYLENOL) tablet 650 mg, 650 mg, oral, q6h PRN, BRAD Hicks, 650 mg at 354 aluminum-magnesium hydroxide-simethicone (MAALOX) 200-200-20 mg/5 mL suspension 30 mL, 30 mL, oral,q4h PRN, BRAD Hicks, 30 mL at 05/06/24 0354 amLODIPine (NORVASC) tablet 5 mg, 5 mg, oral, Daily, Leah Philippe NP, 5 mg at 849 aspirin EC tablet 81 mg, 81 mg, oral, Daily, BRAD Hicks, 81 mg at 05/17/24 0843 clopidogreL (PLAVIX) tablet 75 mg, 75 mg, oral, Daily, BRAD Hicks, 75 mg at 05/17/24 0843 dextrose (D50W) 50% injection 12.5 g, 12.5 g, intravenous, q15 min PRN, BRAD Hicks dextrose (D50W) 50% injection 25 g, 25 g, intravenous, q15 min PRN, BRAD Hicks dextrose 15 gram/60 mL oral solution 15 g, 15 g, oral, q15 min PRN, BRAD Hicks dextrose 15 gram/60 mL oral solution 30 g, 30 g, oral, q15 min PRN, BRAD Hicks enoxaparin (LOVENOX) injection 40 mg, 40 mg, subcutaneous, q24h KATIE, Leah Philippe NP, 40 mg at 05/17/24 0847 glipiZIDE (GLUCOTROL) tablet 5 mg, 5 mg, oral, q AM AC, BRAD Viramontes, 5 mg at 05/17/24 0843 Glucagon HCl (rDNA) injection 1 mg, 1 mg, intramuscular, Once PRN, BRAD Hicks hydrALAZINE (APRESOLINE) tablet 10 mg, 10 mg, oral, TID PRN, BRAD Viramontes insulin lispro injection 2-12 Units, 2-12 Units, subcutaneous, TID AC, Neida Bailey DO, 2 Units at 05/17/24 1129 magnesium hydroxide (MILK OF MAGNESIA) 400 mg/5 mL suspension 30 mL, 30 mL, oral, Daily PRN, BRAD Rojas, 30 mL at 04/23/24 0529 metFORMIN (GLUCOPHAGE) tablet 500 mg, 500 mg, oral, BID with meals, Leah Philippe NP, 500 mg at 05/17/24 0843 traMADoL (ULTRAM) tablet 25 mg, 25 mg, oral, q6h PRN, Radhika Barber NP, 25 mg at 05/06/242031 LABS: Lab Results Component Value Date WBC 7.5 05/17/2024 RBC 3.90 05/17/2024 HGB 11.9 05/17/2024 HCT 34.5 (L) 05/17/2024 MCV 88.0 05/17/2024 MCHC 34.5 05/17/2024 RDW 12.9 05/17/2024 PLT 317 05/17/2024 MPV 11.8 (H) 05/17/2024 NRBC 0.0 05/17/2024 DIFF Lab Results Component Value Date LYMPHOPCT 10.4 05/06/2024 NEUTROABS 7.49 (H) 05/06/2024 LYMPHSABS 0.92 (L) 05/06/2024 MONOABS 0.33 05/06/2024 EOSABS 0.02 05/06/2024 BASOSABS 0.02 05/06/2024 IMMGRANABS 0.03 05/06/2024 RETIC No results found for: RETIC , RETICCTPCT Lab Results Component Value Date NA 138 05/17/2024 K 3.8 05/17/2024 CL 105 05/17/2024 CO2 27 05/17/2024 GLUCOSE 196 (H) 05/17/2024 BUN 13 05/17/2024 CREATININE 0.63 05/17/2024 CALCIUM 8.8 05/17/2024 PROT 6.1 05/17/2024 ALBUMIN 3.0 (L) 05/17/2024 BILITOT 0.3 05/17/2024 AST 15 05/17/2024 ALT 25 05/17/2024 MG 1.4 (L) 05/17/2024 ALKPHOS 66 05/17/2024 CKTOTAL 31 05/13/2024 EGFR 111 05/17/2024 IMPRESSION & PLAN: #Impaired mobility and self care -secondary to CVA -continue PT, OT, LOGISTICIAN, and nursing care #Acute anterior right pontine stroke #Left hemiparesis #Dysarthria -Aspirin 81mg daily -Plavix 75mg daily -Atorvastatin 80mg nightly discontinued on 05/17 due to weakness, monitor -CT head 05/07/24 There is subtle hypoattenuation in the rightward srinivas correlating with an infarctdemonstrated on the comparison MRI. No acute hemorrhage or other acute superimposed findings. -05/09 due to continued worsening weakness MRI brain ordered also reached out to Dr Reynoso at [facility] to inform of changes in neurostatus --> no response from Dr Reynoso, MRI brain 05/10 redemonstrated prior known infarcts -continue therapies -f/u Neurology after discharge #Dysphagia -regular diet with thin liquids -continue LOGISTICIAN #Hypertension -Lisinopril 10mg daily increased to 20mg daily on 04/25 --> discontinued 05/01 due to complaintsof itchiness to her throat -Amlodipine 5mg daily started 04/28 #Diabetes mellitus type 2 -noncompliant with treatment prior to admission -continue diabetic education -will need glucometer and supplies on discharge -ISS -Lantus 22 units QHS decreased to 10 units QHS on 05/02 -Metformin 500mg BID started 04/28 -Glipizide 5mg daily started 05/03 #Bladder management -UA 05/06 negative for UTI -UA 05/16 negative for UTI #Bowel management -Colace and Senna discontinued on 05/01 due to loose stools -monitor #DVT prophylaxis: Lovenox 40mg daily * Elzbieta Garcia, PT - 05/17/2024 1:44 PM EST [facility] Physical Therapy Treatment Note 05/17/2024 Patient: Amalia Ann : 1975 Age: 48 y.o. Gender: female Primary Language: Barbadian Diagnosis: No Principal Problem: There is no principal problem currently on the Problem List. Please update the Problem List and refresh. Past Medical History: Diagnosis Date CVA (cerebral vascular accident) (CMS/HCC) DM (diabetes mellitus) ([facility]) HTN (hypertension) History reviewed. No pertinent surgical history. Allergies: is allergic to lisinopril. Precautions: Medical Precautions: Fall Risk Safety Interventions: Call noriega within reach Swallow Precautions: Modified Diet RUE Weight Bearing Status: Full LUE Weight Bearing Status: Full, As Tolerated RLE Weight Bearing Status: Full LLE Weight Bearing Status: Full NURSING RECOMMENDATIONS Bed Mobility: Transfers: Ambulation: SUBJECTIVE Pt report: I'm walking Pain:0/10 OBJECTIVE General Observation: Supine in bed agreeable to participating in therapy session. Procedure/Treatment: Neuromuscular Reeducation: Balance/Neuromuscular Re-Education Neuromuscular Re-Education Time Entry: 100 Pt seen from 10:20-11:00am. Patient in Bed agreeable to participating in therapy session. Pt completed stand pivot transfer partial A to WC, pt completed WC mobility down to therapy gym. Video automatic embroidery machine tender [id number] seen. Pt completed stand pivot transfers partial A-steadying assistance x1, mass rep. Pt completed multiple STS with cues to WB on LLE, therapist assisting in facilitation of weight shiftonto L side, pt cued for slow descent, partial-Steadying assistance for STS. Pt cued to complete STS with RLE on 3 inch step, pt with improved WB on LLE, pt with x1 instance of poor eccentric controlfor descent. Pt completed stand pivot transfer back to WC partial A x1. Pt completed WC mobility SUP back to room, partial A stand pivot transfer, SUP bed mobility. Pt left supine in bed, call noriega in reach, bed alarm on, all needs met. Pt seen from 12:30-1:30pm. Video automatic embroidery machine tender [id number] used for therapy session. Steadying assistance for stand pivot transfer to WC, SUP WC mobility down to therapy gym. Therapist donning toe off AFO on LLE, skin inspected, skin intact, sneaker donned on RLE. Pt completed 5x10 ambulation with LBQC, partial-steadying assistance, pt initially completed step to pattern 3 point, step to pattern 2 point. Pt with x1 instance of posterior LOB, pt able to correct via hip and ankle strategy. Pt completed x20ft, x35ft of ambulation with partial A x1, COMPOSITE LAYUP WORKER x1 and WC follow, pt with step to gait pattern andprogressed to step through pattern, pt becoming emotional, verbalized she was happy she was ambulating again. Pt completed x2 FOS with seated rest brake between FOS. Pt needing partial A x1, cue for increased hip and knee flexion on RLE when ascending. During second FOS, pt with acute buckling of bilat. LE s, pt sitting on this verse writer, pt able to stand from this verse writer, partial A x1. Therapist doffing AFO, skin intact, no areas of irritation noted. Pt completed WC mobility SUP back to room, Pt completed stand pivot transfer partial A x1, SUP bed mobility. Pt left supine in bed, call noriega in reach, bed alarm on, all needs met. Education: Education Documentation Mobility Training, taught by Elzbieta Garcia PT at 05/17/2024 2:01 PM. Learner: Patient Readiness: Acceptance Method: Explanation, Demonstration Response: Verbalizes Understanding, Demonstrated Understanding Comment: Dynamic gait and balance, ambulation, Education Comments No comments found. ASSESSMENT Pt improving ambulation to partial-steadying assistance with LBQC, x10ft, good sequencing with turning with AD. Equipment: TBD Plan of Care Plan Treatment/Interventions: (As per IE) PT Plan: Skilled PT PT Frequency: 5-7 days per week PT Duration of Sessions: 60-90 min per session PT Treatments per day: 1-2 times per day Equipment Recommended: TBD Barriers to Discharge: home environment, medical condition PT - Evaluation Status: Complete Problems/Goals Goals: Encounter Problems Encounter Problems (Active) Template: Physical Therapy Problem: PT Chcf Goals Dates: Start: 04/20/24 Goal: mod I bed mobility Dates: Start: 04/20/24 Expected End: 05/11/24 Outcomes Date/Time User Outcome 05/17/24 1403 Elzbieta Garcia PT Progressing Goal: mod I transfers with LAD Dates: Start: 04/20/24 Expected End: 05/11/24 Outcomes Date/Time User Outcome 05/17/24 1403 Elzbieta Garcia PT Progressing Goal: mod I wc mobility 150' Dates: Start: 04/20/24 Expected End: 05/11/24 Outcomes Date/Time User Outcome 05/17/24 1403 Elzbieta Garcia PT Progressing Goal: up/dn 4 flights of stairs min A Dates: Start: 04/20/24 Expected End: 05/11/24 Outcomes Date/Time User Outcome 05/17/24 1403 Elzbieta Garcia PT Progressing Problem: PT Short Term Goals Dates: Start: 04/20/24 Goal: Pt will perform bed mobility min A (Resolved) Dates: Start: 04/20/24 Expected End: 04/27/24 Resolved: 05/17/24 Outcomes Date/Time User Outcome 05/17/24 1403 Elzbieta Garcia PT Completed Goal: Pt will transfer with min A Dates: Start: 04/20/24 Expected End: 04/27/24 Outcomes Date/Time User Outcome 05/17/24 1403 Elzbieta Garcia PT Progressing Goal: Pt will ambulate 25' with LAD mod A Dates: Start: 04/20/24 Expected End: 04/27/24 Outcomes Date/Time User Outcome 05/17/24 1403 Elzbieta Garcia PT Progressing Goal: Assess stairs as appropriate (Resolved) Dates: Start: 04/20/24 Expected End: 04/27/24 Resolved: 05/06/24 Outcomes Date/Time User Outcome 05/06/24 1038 Elzbieta Garcia PT Completed Goal: Supervision wc mobility and mgmt 150' (Resolved) Dates: Start: 04/20/24 Expected End: 04/27/24 Resolved: 05/06/24 Description: Outcomes Date/Time User Outcome 05/06/24 1038 Elzbieta Garcia PT Completed Encounter Problems (Resolved) There are no resolved problems. Session Start/Stop Time: 1230 1410 Therapy Minutes Physical Therapy PT Individual: 100 * BRAD Viramontes - 05/17/2024 11:27 AM EST Images from the original note were not included. VEE PROGRESS NOTE Date: 05/17/2024 Author: BRAD Viramontes Patient ID: Amalia M Ann is a 48 y.o. female : 1975 MR#: [id number] SUBJECTIVE Patient seen. She has no specific complaints. Her magnesium was found to be low today 1.4. She was recently evaluated for worsening left-sided weakness. Imaging did not reveal a new stroke. She denies any recent URI symptoms. No fever or chills. Urine was found to be negative. amLODIPine, 5 mg, oral, Daily aspirin, 81 mg, oral, Daily clopidogreL, 75 mg, oral, Daily enoxaparin, 40 mg, subcutaneous, q24h KATIE glipiZIDE, 5 mg, oral, q AM AC insulin lispro, 2-12 Units, subcutaneous, TID AC magnesium sulfate, 2 g, intravenous, Once metFORMIN, 500 mg, oral, BID with meals PRN medications: acetaminophen, aluminum-magnesium hydroxide-simethicone, dextrose 50%, dextrose 50%, dextrose, dextrose, glucagon injection, hydrALAZINE, magnesium hydroxide, traMADoL ROS: CHEST: no sob, coughing HEART: no chest pain, orthopnea GI: no abd pain, or N/V. : No dysuria or frequency EXT: no leg pain or swelling Neuro as above OBJECTIVE Vitals: 05/17/24 0047 05/17/24 0615 05/17/24 0700 05/17/24 0855 BP: (!) 166/81 (!) 153/77 (!) 145/72 BP Location: Right arm Right arm Patient Position: Lying Pulse: 70 61 61 Resp: 16 16 Temp: 36.8 ??C (98.2 ??F) 36.7 ??C (98 ??F) 36.4 ??C (97.5 ??F) TempSrc: Temporal Oral SpO2: 100% 100% Weight: Height: Physical exam General: AWake alert and oriented HEENT: pupils are equal round and reactive. extraocular movements are grossly intact lungs clear to auscultation, no wheezing or crackles noted heart regular rate and rhythm, no murmur or rubs abdomen soft nontender nondistended positive bowel sounds Musculoskeletal: No gross deformity to joints extremities without edema, erythema or calf tenderness neuro: Left-sided weakness, dysarthria -which appears weaker compared to admission. skin: no rashes or lesions. psych: mood stable appearing, good eye contact. LABS HEMATOLOGY Lab Results Component Value Date WBC 7.5 05/17/2024 HGB 11.9 05/17/2024 HCT 34.5 (L) 05/17/2024 MCV 88.0 05/17/2024 PLT 317 05/17/2024 CHEMISTRY Lab Results Component Value Date GLUCOSE 196 (H) 05/17/2024 NA 138 05/17/2024 K 3.8 05/17/2024 CO2 27 05/17/2024 CL 105 05/17/2024 BUN 13 05/17/2024 CREATININE 0.63 05/17/2024 EGFR 111 05/17/2024 CALCIUM 8.8 05/17/2024 MG 1.4 (L) 05/17/2024 ANIONGAP 6 05/17/2024 Imaging: MR Brain wo Contrast Addendum: ADDENDUM: This report was discussed with Neto TAO on May 10, 2024 01:13:00 EST. This document has been electronically signed by: Yuly Cleveland on 05/10/2024 01:14:01 Narrative: MRI BRAIN WITHOUT CONTRAST COMPARISON: CT brain [...] dimensions are difficult to quantify but a pharmaceutical representative measurement on image 21 of series 3 is 1.2 x 0.5 cm. On images 22-23 of series 3 is an area of restricted diffusion in the midline and right paracentral region of the srinivas, also compatible with an acute infarct. This is also difficult to accurately measure but a pharmaceutical representative measurement on image 22 is approximately [...] collection. Clivus and craniocervical junction are unremarkable. Impression: 1. The patient has a reported history [...] by: Krishan Oden M.D. on 05/10/2024 01:06:25 ASSESSMENT & PLAN Anterior right pontine stroke Patient had a recent small right pontine CVA on 03/26 and is on aspirin and Plavix. Now with new anterior right pontine stroke Suspect secondary to intrinsic atherosclerotic disease likely compensation/benefits specialist now occluded CTA shows right V4 high-grade stenosis consistent with right hemispheric stroke per neurology. MRI of the brain showed acute subacute right pontine infarct without hemorrhagic transformation. Prior stroke workup with normal ESR CRP lupus anticoagulant RF SSA, SSB a and CA, beta-2 glycoprotein, anticardiolipin antibody, LP with 3 WBCs homocystine level of 6.9 LDL of 39 A1c was 12.4. Echocardiogram on 04/16 shows normal LV systolic function EF of 55 to 65% . Does not appear that shehad a bubble study done. EKG normal sinus rhythm septal infarct age undetermined per neurology recommendations were to continue aspirin Plavix and high dose statin Per rehab team Sequela -dysarthria, left facial droop left-sided weakness left upper stronger than the left lower. ASA, Plavix and Statin Lipitor 80 mg of note LDL 39 Patient was reporting increased weakness left arm Repeat Brain CT on 05/07/2024 showing no acute hemorrhage and no other acute superimposed findings MRI of the brain showed motion artifact however did show reported chronic CVAs in the rt pontine area, age-indeterminate. No acute findings General weakness See above Imaging as above Given weakness, CK level was drawn and level was found to be low. For completeness recheck UA APPEALS COORDINATOR negative Clinically she does appear to be on the drier transfer car operator side -> recommended to continue to drink fluids. BP ok. Labs ok. May consider 1 liter of fluids. Magnesium was found to be low 1.4 recommend replacement Recommend holding statin for now. Of note LDL was 39. Hold liptor 80mg Restart in couple days 40mg Diabetes mellitus A1c greater than 12. seen by endocrine. Continue Metformin Continue Glipizide POC 1 24-140s Improved glycemic control Hypertension Blood pressure in the 130s to 150s Norvasc 5mg Off lisinopril due to hx of allergic reaction BP acceptable range DVT prophylaxis Continue Lovenox FULL CODE * Joshua Tellez, OT - 05/17/2024 7:00 AM EST [facility] Occupational Therapy Treatment Note 05/17/24 Patient: Amalia Ann : 1975 Age: 48 y.o. Gender: female Diagnosis: No Principal Problem: There is no principal problem currently on the Problem List. Please update the Problem List and refresh. Primary Rehab (Etiologic) Diagnosis: Patient Active Problem List Diagnosis HTN (hypertension) DM (diabetes mellitus) (CMS/HCC) CVA (cerebral vascular accident) (CMS/HCC) PMH: Past Medical History: Diagnosis Date CVA (cerebral vascular accident) (CMS/HCC) DM (diabetes mellitus) ([facility]/HCC) HTN (hypertension) PSH: History reviewed. No pertinent surgical history. Allergies: is allergic to lisinopril. Precautions: Precautions Medical Precautions: Fall Risk Safety Interventions: Call noriega within reach RUE Weight Bearing Status: Full LUE Weight Bearing Status: Full, As Tolerated RLE Weight Bearing Status: Full LLE Weight Bearing Status: Full Vitals: BP: (!) 145/72 Heart Rate: 61 Pain: Pain Assessment Pain Assessment: No/denies pain Subjective: I am ready to go Procedures/Interventions: ADLs/IADLs Self Care/Home Management (ADLs) Time Entry: 30 Pt in supine upon arrival agreeable to participation, vitals assessed see above. Elevated supine>sit Eob S with use of bed rail. Seated EOB pt donned R sock with B Ues S, Assist to don L sock following unsuccessful attempts. SPT steadying A with R E on bed rail bed>w/c. Pt dep positioned at toilet due to small bathroom space. SPT to toilet with UE support on grab bar steadying A. Pt hiked pants down in stand with use of R UE mainly. seated pt voided and performed hygiene. In stand pt hiked pants over hips with steadying A for balance and touching A to hike underwear over L hip. Pt attempting to use L UE however only able to assist anteriorly. Pt performed oral hygiene w/c level at sink with L UE as an independent stabilizer. L UE stabilizedtoothbrush placed by R UE. Pt carried out remainder of oral hygiene with R UE, mod I. Balance/Neuromuscular Re-Education Neuromuscular Re-Education Time Entry: 60 Pt propelled self from room><gym S. Pt seated at table top with B UE etta, to target B UE integration and L UE shoulder AAROM. Seatedin w/c, pt performed mass reps of B UE etta, positioned on 2nd rung from the furthest, with 5lb weight inside. Toward end of reps, pt reporting clicking in shoulder however not painful. Activity transitioned. Pt positioned self at mat in prep for txfer with no cues. SPT to mat steadying A, kneenoted to be in flexion but not buckling. Seated unsupported on mat with 2 lb weighted dowel, pt performed 10 rep X3 of shoulder flexion to 90, good visual attention throughout. During rest break dicussed kitchen setup. Pt reporting that w/c will fit into kitchen, and that microwave accessible from w/c level. 10 reps x3 elbow flexion, cues for body mechanics to reduce compensation. Increased time for 2nd half of AROM. Sit>Supine S. In supine ,10 reps X3 of chest press, with touching A at L elbow and partial A to maintain grasp on1 lb weighted bar. L triceps salute against gravy with 1 lb wrist weight, assist to stabilize L elbow. Pt with good eccentric control. Seated EOB pt tasked with reaching across midline with R UE to retrieve stanley bags, while assuming weight bearing to L elbow. Pt tasked with utilizing triceps extension to achieve up right sitting in midline. Pt tossing stanley bags to target with RUE. No LOB throughout. SPT mat>w/c partial A more than steadying A due to distractibility. Once back in room pt ate breakfast with PETERSON, for opening some containers. Chair alarm on, and call noriega in reach. OT Assessment OT Assessment OT Assessment Results: Decreased ADL status, Decreased upper extremity range of motion, Decreased upper extremity strength, Decreased safe judgment during ADL, Decreased fine motor control, Decreasedfunctional mobility, Decreased gross motor control, Decreased trunk control for functional activities Prognosis: Good Evaluation/Treatment Tolerance: Patient tolerated treatment well, Patient limited by fatigue Comments: Completed 90 min session motivated throughout. Pt continues to be limited by decreased lead qa analyst strength during self care and Neuro re-ed. Plan to address light meal prep in future sessions. OT Plan Plan Treatment Interventions: ADL retraining, Functional transfer training, UE strengthening/ROM, Endurance training, Equipment evaluation/education, Patient/family training, Fine motor coordination activities, Neuromuscular reeducation OT Plan: Skilled OT OT Frequency : 5-7 days per week OT Duration of Sessions: 60-90 min per session OT Treatments per day: 1 time per day OT - Evaluation Status: Complete Equipment Recommended: (TBD) Goals: Encounter Problems Encounter Problems (Active) Template: Occupational Therapy Problem: OT Chcf Goals Dates: Start: 04/20/24 Goal: Pt will be mod I with LB dressing Dates: Start: 04/20/24 Expected End: 05/18/24 Outcomes Date/Time User Outcome 05/12/241216 RICHIE Lucas Progressing Goal: Pt will be mod I with UB dressing Dates: Start: 04/20/24 Expected End: 05/18/24 Outcomes Date/Time User Outcome 05/12/241216 RICHIE Lucas Progressing Goal: Pt will be S with bathing Dates: Start: 04/20/24 Expected End: 05/18/24 Outcomes Date/Time User Outcome 05/12/241216 RICHIE Lucas Progressing Goal: Pt will be mod I with toileting including txfer Dates: Start: 04/20/24 Expected End: 05/18/24 Outcomes Date/Time User Outcome 05/12/241216 RICHIE Lucas Progressing Goal: Pt will perform tub txfer with LRAD with S. Dates: Start: 04/20/24 Expected End: 05/18/24 Outcomes Date/Time User Outcome 05/12/24 1217 RICHIE Lucas Progressing Goal: Pt will be mod I with snack/beverage retrieval at LRAD Dates: Start: 04/20/24 Expected End: 05/18/24 Description: Outcomes Date/Time User Outcome 05/12/24 1217 RICHIE Lucas Progressing Problem: OT Short Term Goals Dates: Start: 05/15/24 Goal: Pt will perform toileting with steadying A with use of LRAD. Dates: Start: 05/15/24 Expected End: 05/22/24 Outcomes Date/Time User Outcome 05/17/24 1248 Joshua Tellez OT Progressing Goal: Pt will perform LB dressing steadying A Dates: Start: 05/15/24 Expected End: 05/22/24 Outcomes Date/Time User Outcome 05/17/24 1248 Joshua Tellez OT Progressing Goal: Pt will perform UB dressing with PETERSON Dates: Start: 05/15/24 Expected End: 05/22/24 Outcomes Date/Time User Outcome 05/17/24 1248 Joshua Tellez OT Progressing Goal: Pt will perform bathing with Steadying A for balance. Dates: Start: 05/15/24 Expected End: 05/22/24 Outcomes Date/Time User Outcome 05/17/24 1248 Joshua Tellez OT Progressing Goal: Pt will utilize L UE gross assist during oral hygiene tasks. Dates: Start: 05/15/24 Expected End: 05/22/24 Outcomes Date/Time User Outcome 05/17/24 1248 Joshua Tellez OT Progressing Encounter Problems (Resolved) Template: Occupational Therapy Problem: OT Short Term Goals Dates: Start: 04/20/24 Resolved: 05/03/24 Goal: Pt will perform toileting with partial A (Resolved) Dates: Start: 04/20/24 Expected End: 04/27/24 Resolved: 05/03/24 Outcomes Date/Time User Outcome 05/03/24 1407 Albina Gray OT Completed Goal: Pt will perform LB dressing with partial A (Resolved) Dates: Start: 04/20/24 Expected End: 04/27/24 Resolved: 05/03/24 Outcomes Date/Time User Outcome 05/03/24 Susan Gray OT Completed Goal: Pt will perform bathing with steadying A. (Resolved) Dates: Start: 04/20/24 Expected End: 04/27/24 Resolved: 05/03/24 Outcomes Date/Time User Outcome 05/03/24 Susan Gray OT Completed Goal: Pt will be able to utilize L UE as an independent stabilizer during grooming tasks (Resolved) Dates: Start: 04/20/24 Expected End: 04/27/24 Resolved: 05/03/24 Outcomes Date/Time User Outcome 05/03/24 Susan Gray OT Completed Goal: Pt will perform UB dressing with PETERSON, with carryover of tasha dressing technique (Resolved) Dates: Start: 04/20/24 Expected End: 04/27/24 Resolved: 05/03/24 Outcomes Date/Time User Outcome 05/03/24 Susan Gray OT Completed Education Documentation ADL Training, taught by Joshua Tellez OT at 05/17/2024 12:48 PM. Learner: Patient Readiness: Acceptance Method: Explanation, Demonstration Response: Verbalizes Understanding, Demonstrated Understanding, Needs Reinforcement Home Exercise Program, taught by Joshua Tellez OT at 05/17/2024 12:48 PM. Learner: Patient Readiness: Acceptance Method: Explanation, Demonstration Response: Verbalizes Understanding, Demonstrated Understanding, Needs Reinforcement Body Mechanics, taught by Joshua Tellez OT at 05/17/2024 12:48 PM. Learner: Patient Readiness: Acceptance Method: Explanation, Demonstration Response: Verbalizes Understanding, Demonstrated Understanding, Needs Reinforcement Education Comments No comments found. Start/Stop Time OT Time Calculation OT Start Time: 0700 OT Stop Time: 0830 OT Time Calculation (min): 90 min Therapy Minutes: Occupational Therapy OT Individual: 90 * Joshua Tellez OT - 05/16/2024 3:00 PM EST Phone call with [place] automatic embroidery machine tender ([id number]) placed to pt DAVIN Abel, with PT Elzbieta and this therapist. Page updated on pt's current level of function with ADLs and anticipated level of function (Mod I w/c level). Page agreeable to come in for training/education closer to pt'/c date, MondayMay 27, at 7 AM. * Elzbieta Garcia, PT - 05/16/2024 2:54 PM EST [facility] Physical Therapy Treatment Note 05/16/2024 Patient: Amalia Ann : 1975 Age: 48 y.o. Gender: female Primary Language: [place] Islander Diagnosis: No Principal Problem: There is no principal problem currently on the Problem List. Please update the Problem List and refresh. Past Medical History: Diagnosis Date CVA (cerebral vascular accident) (CMS/HCC) DM (diabetes mellitus) (CMS/HCC) HTN (hypertension) History reviewed. No pertinent surgical history. Allergies: is allergic to lisinopril. Precautions: Medical Precautions: Fall Risk Safety Interventions: Call noriega within reach Swallow Precautions: Modified Diet RUE Weight Bearing Status: Full LUE Weight Bearing Status: Full, As Tolerated RLE Weight Bearing Status: Full LLE Weight Bearing Status: Full SUBJECTIVE Pt report: I am good. Pain: OBJECTIVE General Observation: Seated in WC agreeable to participating in therapy session. General/Functional Assessments: Procedure/Treatment: Neuromuscular Reeducation: Balance/Neuromuscular Re-Education Neuromuscular Re-Education Time Entry: 90 Patient in Wheelchair agreeable to participating in therapy session. Video automatic embroidery machine tender [id number] Vipin used for therapy session. Pt giving this verse writer permission to speak with Alejandro, pt significant other to update on functional mobility. Pt completed WC mobility SUP down to therapy gym. Therapist donning toe off AFO. Pt completed mass rep stand pivot transfer partial -steadying assistance with transfers. Pt completed mass rep STS transfers, partial A x1 pt hyperextending and increased buckling on LLE. Pt completed x2 FOS with R ascending rail and AFO donned, pt needing partial-steadying assistance, pt with appropriate foot clearance on step, ascending and descending. Pt taking seated rest break between FOS. Pt completed x4 stairs without AFO, pt with poor foot placement on stairs, needing max-A for LLE management. When doffing AFO, skin intact. Pt completed WC mobility back to room, pt needing partial A x1, stand pivot transfer to EOB. Therapist placing phone call to Alejandro via [employer] automatic embroidery machine tender [id number] used with OT [employer]. Per Alejandro he will be able to assist pt up and down x4 FOS, and will be able to bring WC up and down stairs. Updated for anticipated goals of mod-I WC level. Family training planned for 05/27/2024. No further questions from Alejandro. Education: Education Documentation Mobility Training, taught by Elzbieta Garcia PT at 05/16/2024 3:47 PM. Learner: Significant Other, Patient Readiness: Acceptance Method: Explanation, Demonstration Response: Demonstrated Understanding, Verbalizes Understanding Comment: Mobility status, goals, WC level Education Comments No comments found. ASSESSMENT Pt improving to completing x2 FOS with use of AFO for improvement in foot clearance on step. Pt needing seated rest breaks between FOS. Equipment: TBD Plan of Care Plan Treatment/Interventions: (As per IE) PT Plan: Skilled PT PT Frequency: 5-7 days per week PT Duration of Sessions: 60-90 min per session PT Treatments per day: 1-2 times per day Equipment Recommended: TBD Barriers to Discharge: home environment, medical condition PT - Evaluation Status: Complete Problems/Goals Goals: Encounter Problems Encounter Problems (Active) Template: Physical Therapy Problem: PT Membership Manager Goals Dates: Start: 04/20/24 Goal: mod I bed mobility Dates: Start: 04/20/24 Expected End: 05/11/24 Outcomes Date/Time User Outcome 05/10/24 1208 Elzbieta Garcia PT Progressing Goal: mod I transfers with LAD Dates: Start: 04/20/24 Expected End: 05/11/24 Outcomes Date/Time User Outcome 05/10/24 1208 Elzbieta Garcia PT Progressing Goal: mod I wc mobility 150' Dates: Start: 04/20/24 Expected End: 05/11/24 Outcomes Date/Time User Outcome 05/10/24 1208 Elzbieta Garcia PT Progressing Goal: up/dn 4 flights of stairs min A Dates: Start: 04/20/24 Expected End: 05/11/24 Outcomes Date/Time User Outcome 05/10/24 1208 Elzbieta Garcia PT Progressing Problem: PT Short Term Goals Dates: Start: 04/20/24 Goal: Pt will perform bed mobility min A Dates: Start: 04/20/24 Expected End: 04/27/24 Outcomes Date/Time User Outcome 05/10/24 1208 Elzbieta Garcia PT Progressing Goal: Pt will transfer with min A Dates: Start: 04/20/24 Expected End: 04/27/24 Outcomes Date/Time User Outcome 05/10/24 1208 Elzbieta Garcia PT Progressing Goal: Pt will ambulate 25' with LAD mod A Dates: Start: 04/20/24 Expected End: 04/27/24 Outcomes Date/Time User Outcome 05/10/24 1208 Elzbieta Garcia PT Progressing Goal: Assess stairs as appropriate (Resolved) Dates: Start: 04/20/24 Expected End: 04/27/24 Resolved: 05/06/24 Outcomes Date/Time User Outcome 05/06/24 1038 Elzbieta Garcia PT Completed Goal: Supervision wc mobility and mgmt 150' (Resolved) Dates: Start: 04/20/24 Expected End: 04/27/24 Resolved: 05/06/24 Description: Outcomes Date/Time User Outcome 05/06/24 1038 Elzbieta Garcia PT Completed Encounter Problems (Resolved) There are no resolved problems. Session Start/Stop Time: 1230 1400 Therapy Minutes Physical Therapy PT Individual: 90 * BRAD Chaudhari - 05/16/2024 1:55 PM EST Images from the original note were not included. [facility] Daily Progress Note Patient name: Amalia Ann : 1975 SUBJECTIVE: Patient seen and examined in PT room today. Dysarthria noted ( which is not new). Feels tired but attributes this to PT. She tells me she feels stronger than last time I saw here which was 05/14/2024. No acute events overnight. Denies headaches, dizziness, shortness of breath, chest pain, nausea, co nstipation, and pain. No new concerns today. Reports she slept well last night OBJECTIVE: Vitals: 05/15/24 0746 05/15/24 1546 05/16/24 0100 05/16/24 0801 BP: (!) 143/85 128/70 (!) 151/73 132/78 Pulse: 76 67 68 72 Resp: 16 16 16 16 Temp: 36.5 ??C (97.7 ??F) 36.3 ??C (97.3 ??F) 36.9 ??C (98.4 ??F) 36.4 ??C (97.5 ??F) TempSrc: Oral Oral Oral SpO2: 100% 98% 99% 98% Weight: Height: Physical Examination: General: Alert, in no acute cardiopulmonary distress. Mental Status: Oriented to person, place and time. Normal affect. Head: Normocephalic. Eyes: Pupils are equal, round. Extraocular muscles intact. Ear, Nose and Throat: Oropharynx clear, mucous membranes moist. Ears and nose without masses, lesions or deformities. Neck: Supple, Trachea midline. Respiratory: Symmetric chest wall expansion Cardiovascular: No pitting edema, peripheral pulses intact Gastrointestinal: Abdomen soft, non-tender, non-distended. Genitourinary: No costovertebral angle tenderness. Neurologic: left sided weakness, 3/5 lead qa analyst strength Skin: No rashes or lesions. No petechiae or purpura. No edema. Musculoskeletal: No gross deformities. CURRENT INPATIENT MEDICATIONS: Current Facility-Administered Medications: acetaminophen (TYLENOL) tablet 650 mg, 650 mg, oral, q6h PRN, BRAD Hicks, 650 mg at 354 aluminum-magnesium hydroxide-simethicone (MAALOX) 200-200-20 mg/5 mL suspension 30 mL, 30 mL, oral,q4h PRN, BRAD Hicks, 30 mL at 05/06/24 0354 amLODIPine (NORVASC) tablet 5 mg, 5 mg, oral, Daily, Leah Philippe NP, 5 mg at 801 aspirin EC tablet 81 mg, 81 mg, oral, Daily, BRAD Hicks, 81 mg at 05/16/24 0801 atorvastatin (LIPITOR) tablet 80 mg, 80 mg, oral, Nightly, BRAD Hicks, 80 mg at 05/15/24 2100 clopidogreL (PLAVIX) tablet 75 mg, 75 mg, oral, Daily, BRAD Hicks, 75 mg at 05/16/24 0801 dextrose (D50W) 50% injection 12.5 g, 12.5 g, intravenous, q15 min PRN, BRAD Hicks dextrose (D50W) 50% injection 25 g, 25 g, intravenous, q15 min PRN, BRAD Hicks dextrose 15 gram/60 mL oral solution 15 g, 15 g, oral, q15 min PRN, BRAD Hicks dextrose 15 gram/60 mL oral solution 30 g, 30 g, oral, q15 min PRN, BRAD Hicks enoxaparin (LOVENOX) injection 40 mg, 40 mg, subcutaneous, q24h KATIE, Leah Philippe NP, 40 mg at 05/16/24 08 glipiZIDE (GLUCOTROL) tablet 5 mg, 5 mg, oral, q AM AC, BRAD Viramontes, 5 mg at 05/16/24 08 Glucagon HCl (rDNA) injection 1 mg, 1 mg, intramuscular, Once PRN, BRAD Hicks hydrALAZINE (APRESOLINE) tablet 10 mg, 10 mg, oral, TID PRN, BRAD Viramontes insulin lispro injection 2-12 Units, 2-12 Units, subcutaneous, TID AC, Neida Bailey, , 2 Units at 05/16/24800 magnesium hydroxide (MILK OF MAGNESIA) 400 mg/5 mL suspension 30 mL, 30 mL, oral, Daily PRN, BRAD Rojas, 30 mL at 04/23/24 05 metFORMIN (GLUCOPHAGE) tablet 500 mg, 500 mg, oral, BID with meals, Leah Philippe NP, 500 mg at 05/16/24800 traMADoL (ULTRAM) tablet 25 mg, 25 mg, oral, q6h PRN, Radhika Barber NP, 25 mg at 05/06/242031 LABS: Lab Results Component Value Date WBC 8.6 05/13/2024 RBC 4.20 05/13/2024 HGB 12.2 05/13/2024 HCT 37.0 05/13/2024 MCV 87.3 05/13/2024 MCHC 33.0 05/13/2024 RDW 12.7 05/13/2024 PLT 378 05/13/2024 MPV 11.7 (H) 05/13/2024 NRBC 0.0 05/13/2024 DIFF Lab Results Component Value Date LYMPHOPCT 10.4 05/06/2024 NEUTROABS 7.49 (H) 05/06/2024 LYMPHSABS 0.92 (L) 05/06/2024 MONOABS 0.33 05/06/2024 EOSABS 0.02 05/06/2024 BASOSABS 0.02 05/06/2024 IMMGRANABS 0.03 05/06/2024 RETIC No results found for: RETIC , RETICCTPCT Lab Results Component Value Date NA 137 05/13/2024 K 3.9 05/13/2024 CL 104 05/13/2024 CO2 29 05/13/2024 GLUCOSE 94 05/16/2024 BUN 13 05/13/2024 CREATININE 0.69 05/13/2024 CALCIUM 9.2 05/13/2024 PROT 6.3 05/13/2024 ALBUMIN 3.0 (L) 05/13/2024 BILITOT 0.5 05/13/2024 AST 14 05/13/2024 ALT 26 05/13/2024 ALKPHOS 70 05/13/2024 CKTOTAL 31 05/13/2024 EGFR 109 05/13/2024 IMPRESSION & PLAN: 1. New anterior right pontine stroke with left hemiparesis, left facial droop, dysarthria - PT/OT/speech -Plavix, aspirin, high-dose statin -Passed swallow evaluation - 1/2 worsening functional status per PT/OT and nursing, worsening weakness diffusely L>R . Repeat head imaging done and no new acute processes noted. Discussed w/ hospitalist CBC,CMP and urine ordered and pending. 2. Uncontrolled hypertension - amlodipine 5mg daily - Hydralazine prn 3. Diabetes mellitus type 2 poorly controlled - Lantus, Humalog sliding scale, diabetic diet, metformin 4. DVT prophylaxis -Lovenox Associated attestation - Neida Bailey DO - 05/16/2024 5:55 PM EST Agree with progress note, assessment, and plan as documented by PA today. * BRAD Viramontes - 05/16/2024 1:15 PM EST Images from the original note were not included. VEE PROGRESS NOTE Date: 05/16/2024 Author: BRAD Viramontes Patient ID: Amalia nAn is a 48 y.o. female : 1975 MR#: [id number] SUBJECTIVE Patient seen. She reports that she does not drink enough water. Otherwise she denies any headaches.Therapy notes, that functionally she is weaker compared to admission, as a result she had a CT and MRI of the brain no new infarcts noted. She did recently have a episode of nausea vomiting. Questiondiarrhea. Urine was negative. Allergies: Lisinopril Current Medications: amLODIPine, 5 mg, oral, Daily aspirin, 81 mg, oral, Daily atorvastatin, 80 mg, oral, Nightly clopidogreL, 75 mg, oral, Daily enoxaparin, 40 mg, subcutaneous, q24h KATIE glipiZIDE, 5 mg, oral, q AM AC insulin lispro, 2-12 Units, subcutaneous, TID AC metFORMIN, 500 mg, oral, BID with meals PRN medications: acetaminophen, aluminum-magnesium hydroxide-simethicone, dextrose 50%, dextrose 50%, dextrose, dextrose, glucagon injection, hydrALAZINE, magnesium hydroxide, traMADoL ROS: CHEST: no sob, coughing HEART: no chest pain, orthopnea GI: no abd pain, or N/V. : No dysuria or frequency EXT: no leg pain or swelling Neuro as above OBJECTIVE Vitals: 05/15/24 0746 05/15/24 1546 05/16/24 0100 05/16/24 0801 BP: (!) 143/85 128/70 (!) 151/73 132/78 Pulse: 76 67 68 72 Resp: 16 16 16 16 Temp: 36.5 ??C (97.7 ??F) 36.3 ??C (97.3 ??F) 36.9 ??C (98.4 ??F) 36.4 ??C (97.5 ??F) TempSrc: Oral Oral Oral SpO2: 100% 98% 99% 98% Weight: Height: Physical exam General: AWake alert and oriented HEENT: pupils are equal round and reactive. extraocular movements are grossly intact lungs clear to auscultation, no wheezing or crackles noted heart regular rate and rhythm, no murmur or rubs abdomen soft nontender nondistended positive bowel sounds Musculoskeletal: No gross deformity to joints extremities without edema, erythema or calf tenderness neuro: Left-sided weakness, dysarthria -which appears weaker compared to admission. skin: no rashes or lesions. psych: mood stable appearing, good eye contact. LABS HEMATOLOGY Lab Results Component Value Date WBC 8.6 05/13/2024 HGB 12.2 05/13/2024 HCT 37.0 05/13/2024 MCV 87.3 05/13/2024 PLT 378 05/13/2024 CHEMISTRY Lab Results Component Value Date GLUCOSE 94 05/16/2024 NA 137 05/13/2024 K 3.9 05/13/2024 CO2 29 05/13/2024 CL 104 05/13/2024 BUN 13 05/13/2024 CREATININE 0.69 05/13/2024 EGFR 109 05/13/2024 CALCIUM 9.2 05/13/2024 ANIONGAP 4 05/13/2024 Imaging: MR Brain wo Contrast Addendum: ADDENDUM: This report was discussed with Neto TAO on May 10, 2024 01:13:00 EST. This document has been electronically signed by: Yuly Cleveland on 05/10/2024 01:14:01 Narrative: MRI BRAIN WITHOUT CONTRAST COMPARISON: CT brain [...] dimensions are difficult to quantify but a pharmaceutical representative measurement on image 21 of series 3 is 1.2 x 0.5 cm. On images 22-23 of series 3 is an area of restricted diffusion in the midline and right paracentral region of the srinivas, also compatible with an acute infarct. This is also difficult to accurately measure but a pharmaceutical representative measurement on image 22 is approximately [...] collection. Clivus and craniocervical junction are unremarkable. Impression: 1. The patient has a reported history [...] by: Krishan Oden M.D. on 05/10/2024 01:06:25 ASSESSMENT & PLAN Anterior right pontine stroke Patient had a recent small right pontine CVA on 03/26 and is on aspirin and Plavix. Now with new anterior right pontine stroke Suspect secondary to intrinsic atherosclerotic disease likely compensation/benefits specialist now occluded CTA shows right V4 high-grade stenosis consistent with right hemispheric stroke per neurology. MRI of the brain showed acute subacute right pontine infarct without hemorrhagic transformation. Prior stroke workup with normal ESR CRP lupus anticoagulant RF SSA, SSB a and CA, beta-2 glycoprotein, anticardiolipin antibody, LP with 3 WBCs homocystine level of 6.9 LDL of 39 A1c was 12.4. Echocardiogram on 04/16 shows normal LV systolic function EF of 55 to 65% . Does not appear that shehad a bubble study done. EKG normal sinus rhythm septal infarct age undetermined per neurology recommendations were to continue aspirin Plavix and high dose statin Per rehab team Sequela -dysarthria, left facial droop left-sided weakness left upper stronger than the left lower. ASA, Plavix and Statin Patient was reporting increased weakness left arm Repeat Brain CT on 05/07/2024 showing no acute hemorrhage and no other acute superimposed findings MRI of the brain showed motion artifact however did show reported chronic CVAs in the rt pontine area, age-indeterminate. No acute findings General weakness See above Imaging as above Given weakness, CK level was drawn and level was found to be low. Statin was continued Update labs For completeness recheck UA APPEALS COORDINATOR Clinically appears dry push fluids may explain her recent functional decline Diabetes mellitus A1c greater than 12. seen by endocrine. Continue Metformin Continue Glipizide POC 1 24-140s Improved glycemic control Hypertension Blood pressure in the 130s to 150s Norvasc 5mg Off lisinopril due to hx of allergic reaction BP acceptable range DVT prophylaxis Continue Lovenox Patient is not walking follow focally FULL CODE * MARIE Arroyo - 05/16/2024 12:30 PM EST Speech Language Pathology Speech Language Pathology Treatment Subjective LOGISTICIAN Start Time: 08 LOGISTICIAN Stop Time: 0900 LOGISTICIAN Time Calculation (min): 60 min Subjective: Pt was alert and sitting upright in wheelchair for the session. Pt was pleasant and cooperative throughout the session. president practicing urologist Bolivar Marrero, #[id number], was used for the session. Objective General Visit Info General Family/Caregiver Present: No Treatment Speech and Language Speech Treatment (Individual) Time Entry: 15 Speech: Pt was able to engage a conversation w/ x1 repetitions and min verbal cues for use of strategies Cognitive Skills Therapeutic Interventions Cognitive Skills Direct Contact Time Entry: 45 Memory: Pt was tasked w/ encoding mock [...] was able to answer questions related to money calculations using manipulatives w/ 80% accuracy indep. and 100% given min A for calculations. Attention/Concentration: Pt was able to complete written divided attention tasks w/ 70% accuracy indep. and 100% given mod A for repetitions and organization. Reasoning: Pt was able to answer hypothetical questions related to safety w/ 75% accuracy indep. and 100% given min-mod A for eleboration of reponses and appropriate solutions. Assessment/Plan LOGISTICIAN Assessment LOGISTICIAN Assessment Results: Cognitive impairments Evaluation/Treatment Tolerance: Patient tolerated treatment well Plan Treatment/Interventions: Cognitive linguistic functioning LOGISTICIAN Plan: Skilled LOGISTICIAN LOGISTICIAN Frequency: 5-7 days per week LOGISTICIAN Duration of Sessions: 30-60 min per session LOGISTICIAN Treatments per day: 1 time per day Goals Encounter Problems Encounter Problems (Active) Template: Speech Therapy Problem: Cognitive/Linguistics Dates: Start: 04/20/24 Goal: Patient will participate in further assessment of cognitive-linguistic skills (Resolved) Dates: Start: 04/20/24 Expected End: 05/04/24 Resolved: 05/01/24 Description: Goal Type: STG, Performance Level: Independent Outcomes Date/Time User Outcome 05/01/24 0920 Shayy Sanchez, LOGISTICIAN Completed Goal: Patient will identify and utilize problem-solving intervention for task completion at 90% accuracy given min A (Resolved) Dates: Start: 04/20/24 Expected End: 05/17/24 Resolved: 05/15/24 Description: Goal Type: STG, Performance Level: Min assist Outcomes Date/Time User Outcome 05/15/24 1515 Sherri Rendon, LOGISTICIAN Completed Goal: Patient will complete simple calculations for time/money management at 90% accuracy given Mauro Dates: Start: 04/20/24 Expected End: 05/17/24 Description: Goal Type: STG, Performance Level: Min assist Outcomes Date/Time User Outcome 05/16/24 1146 MARIE Arroyo Progressing Goal: Pt will improve intelligibility at the sentence/conversational level to baseline given min A for speech strategies. (Resolved) Dates: Start: 04/21/24 Expected End: 04/28/24 Resolved: 04/26/24 Description: Outcomes Date/Time User Outcome 04/26/24 1127 MARIE Arroyo Completed Goal: Pt will improve delayed recall of functional information given min A for encoding and min A for retrieval - 90% accuracy (Resolved) Dates: Start: 04/22/24 Expected End: 05/17/24 Resolved: 05/15/24 Description: Outcomes Date/Time User Outcome 05/15/24 1522 MARIE Arroyo Completed Goal: Pt will complete basic to mod level auditory/visual attention tasks - 90% accuracy given mod A. (Resolved) Dates: Start: 04/23/24 Expected End: 05/07/24 Resolved: 05/10/24 Description: Outcomes Date/Time User Outcome 05/10/24 1139 MARIE Arroyo Completed Goal: Pt will participate in sequencing/direction following tasks related to functional/ADL tasks given min A- 90% accuracy. Dates: Start: 04/24/24 Expected End: 05/17/24 Description: Outcomes Date/Time User Outcome 05/14/24 1051 MAIRE Arroyo Not Progressing Goal: Pt will improve intelligibility at the paragraph/conversational level to baseline and independent w/ use of strategies Dates: Start: 04/26/24 Expected End: 05/22/24 Description: Outcomes Date/Time User Outcome 05/16/24 1146 MARIE Arroyo Progressing Goal: Pt will complete mod to higher level auditory/visual attention tasks - 90% accuracy given Mauro. (Resolved) Dates: Start: 05/10/24 Expected End: 05/17/24 Resolved: 05/15/24 Description: Outcomes Date/Time User Outcome 05/15/24 1521 MARIE Arroyo Completed Goal: Pt will improve complex attention for visual and/or auditory tasks to 90% accuracy indep. w/ use of strategies Dates: Start: 05/15/24 Expected End: 05/22/24 Description: Outcomes Date/Time User Outcome 05/16/24 1146 MARIE Arroyo Not Progressing Goal: Pt will improve delayed recall of functional information given min A for encoding and indep. for retrieval - 90% accuracy Dates: Start: 05/15/24 Expected End: 05/22/24 Description: Outcomes Date/Time User Outcome 05/16/24 114MARIE Nunes Progressing Goal: Pt will improve higher level problem-solving/reasoning skills to 90% with min A. Dates: Start: 05/15/24 Expected End: 05/22/24 Description: Outcomes Date/Time User Outcome 05/16/24 1146 MARIE Arroyo Progressing Encounter Problems (Resolved) Template: Speech Therapy Problem: Swallowing Dates: Start: 04/20/24 Resolved: 04/23/24 Goal: Patient will tolerate the least restrictive diet consistency to allow for safe consumption ofdaily meals (Resolved) Dates: Start: 04/20/24 Expected End: 05/04/24 Resolved: 04/23/24 Description: Outcomes Date/Time User Outcome 04/23/24 1253 MARIE Shrestha Completed Goal: Patient will demonstrate safe swallowing Intervention/techniques (Resolved) Dates: Start: 04/20/24 Expected End: 05/04/24 Resolved: 04/23/24 Description: Outcomes Date/Time User Outcome 04/23/24 1253 MARIE Shrestha Completed Education Documentation Speech/Language, taught by MARIE Arroyo at 05/16/2024 12:30 PM. Learner: Patient Readiness: Acceptance Method: Explanation, Trench Trimmer Fine Response: Verbalizes Understanding Cognition, taught by MARIE Arroyo at 05/16/2024 12:30 PM. Learner: Patient Readiness: Acceptance Method: Explanation, Trench Trimmer Fine Response: Verbalizes Understanding Education Comments No comments found. Associated attestation - Jen Duque SLP - 05/16/2024 12:44 PM EST I attest that I, Amber Duque M.S.,[facility]-LOGISTICIAN, was physically involved in the ongoing assessment, decision making, and interventions provided during today's patient care session. I have reviewed all documentation for today's 05/16/24, entered by Speech Therapy Fellow, Sherri Rendon, and furtherattest that it is an accurate clinical record of today's encounter, including accurate and appropriate charges. * Joshua Tellez, OT - 05/16/2024 10:00 AM EST [facility] Occupational Therapy Treatment Note 05/16/24 Patient: Amalia Ann : 1975 Age: 48 y.o. Gender: female Diagnosis: No Principal Problem: There is no principal problem currently on the Problem List. Please update the Problem List and refresh. Primary Rehab (Etiologic) Diagnosis: Patient Active Problem List Diagnosis HTN (hypertension) DM (diabetes mellitus) ([facility]/HCC) CVA (cerebral vascular accident) ([facility]/HCC) PMH: Past Medical History: Diagnosis Date CVA (cerebral vascular accident) ([facility]/HCC) DM (diabetes mellitus) ([facility]) HTN (hypertension) PSH: History reviewed. No pertinent surgical history. Allergies: is allergic to lisinopril. Precautions: Precautions Medical Precautions: Fall Risk Safety Interventions: Call noriega within reach Swallow Precautions: Modified Diet RUE Weight Bearing Status: Full LUE Weight Bearing Status: Full, As Tolerated RLE Weight Bearing Status: Full LLE Weight Bearing Status: Full Subjective: I do feel stronger today but my left arm is tired. Procedures/Interventions: ADLs/IADLs Self Care/Home Management (ADLs) Time Entry: 60 Pt elevated supine upon arrival, agreeable to participation in shower. Elevated supine>Sit EOB S. SPT with R UE support on bed rail steadying A. Pt propelled self from room><ADL bathroom distant S. SPT w/c to tub bench with partial A. Pt able to transition B LEs over tub threshold with S, cues for safe body mechanics. STS steadying A, pt hiked pants down with R UE while postioning L UE on grab bar. Pt bathed mainly seated with use of hand held shower, Steadying A in stand to abthe buttocks.valerie area. Verbal cue for utilizing L UE to bathe R UE and underarm, pt able to complete with increased time. Post shower pt donned B socks via figure four technique. Txfer out of tub S with tub bench. Once back in room pt retrieved clothing from closet w/c level. Pt donned tank top with partial A for correcting, as pt donned tank top over lopez sleeve over R UE. Cues for tasha dressing technique for LB. Pt able to thread B Les while seated in w/c with increased time. Verbal cues for locking breaks. In stand, pt able to hike over hips with assist on L for LB clothing, pt attempting to hike withL UE however unabel to get over hips fully. Pt incorporating L UE throughout dressing as appropriate. Pt provided verbal permission to call SO with update. Balance/Neuromuscular Re-Education Neuromuscular Re-Education Time Entry: 30 Pt engaged in neuro re-ed target B UE coordination and functional use of L UE. Pt tasked with folding multiple wash cloths at table top. Pt tasked with utilizing mainly L UE to fold wash cloth. Pt able to assume L lateral pinch throughout to grasp cloths, and able to maintain while completing folds. Occasional assist for postioning towel to allow successful assumption of pinch. Shaving cream placed all over tabletop and pt tasked with wiping all shaving cream away with use ofL UE to promote AAROM/Weight bearing. Steadying A in stand for balance, Pt able to reach all aspects of table with L UE with increased time. Pt performed for a second trial with wet cloth. Steadying A throughout for balance and guarding of L knee. Pt occasionally utilizing internal rotation to lockelbow to maintain extension while scrubbing. Pt tasked with grasping pom poms and transporting them to container to target proximal strength. Ptutilizing lateral pinch, and occasional ulnar grasp to grasp pom poms. Min drops. Pt able to transport to container, occasional assist for shoulder flexion to clear fingers while removing from container. Pt propelled self back to room, stopping at [address] to complete SPT. Verbal cues X1for w/c set up. Partial A for more than Steadying A for SPT, with cues X1 for hand placement, carryover noted. End of session pt seated in w/c with chair alarm on and call noriega in reach. Assist to open 1 container on meal tray, pt able to open remainder. OT Assessment OT Assessment OT Assessment Results: Decreased ADL status, Decreased upper extremity range of motion, Decreased upper extremity strength, Decreased safe judgment during ADL, Decreased fine motor control, Decreasedfunctional mobility, Decreased gross motor control, Decreased trunk control for functional activities Prognosis: Good Evaluation/Treatment Tolerance: Patient tolerated treatment well, Patient limited by fatigue Comments: (Completed 90 min session pt motivated throughout. Pt noted to have increased AROM at L UE this date during neuro re-ed, as evidenced by more successful and consistent grasp and AROM proximally.) OT Plan Plan Treatment Interventions: ADL retraining, Functional transfer training, UE strengthening/ROM, Endurance training, Equipment evaluation/education, Patient/family training, Fine motor coordination activities, Neuromuscular reeducation OT Plan: Skilled OT OT Frequency : 5-7 days per week OT Duration of Sessions: 60-90 min per session OT Treatments per day: 1 time per day OT - Evaluation Status: Complete Equipment Recommended: (TBD) Goals: Encounter Problems Encounter Problems (Active) Template: Occupational Therapy Problem: OT Chcf Goals Dates: Start: 04/20/24 Goal: Pt will be mod I with LB dressing Dates: Start: 04/20/24 Expected End: 05/18/24 Outcomes Date/Time User Outcome 05/12/241216 RICHIE Lucas Progressing Goal: Pt will be mod I with UB dressing Dates: Start: 04/20/24 Expected End: 05/18/24 Outcomes Date/Time User Outcome 05/12/241216 RICHIE Lucas Progressing Goal: Pt will be S with bathing Dates: Start: 04/20/24 Expected End: 05/18/24 Outcomes Date/Time User Outcome 05/12/241216 RICHIE Lucas Progressing Goal: Pt will be mod I with toileting including txfer Dates: Start: 04/20/24 Expected End: 05/18/24 Outcomes Date/Time User Outcome 05/12/241216 RICHIE Lucas Progressing Goal: Pt will perform tub txfer with LRAD with S. Dates: Start: 04/20/24 Expected End: 05/18/24 Outcomes Date/Time User Outcome 05/12/241216 RICHIE Lucas Progressing Goal: Pt will be mod I with snack/beverage retrieval at LRAD Dates: Start: 04/20/24 Expected End: 05/18/24 Description: Outcomes Date/Time User Outcome 05/12/24 1217 Elisha McclellanLAURA gillisA Progressing Problem: OT Short Term Goals Dates: Start: 05/15/24 Goal: Pt will perform toileting with steadying A with use of LRAD. Dates: Start: 05/15/24 Expected End: 05/22/24 Goal: Pt will perform LB dressing steadying A Dates: Start: 05/15/24 Expected End: 05/22/24 Goal: Pt will perform UB dressing with PETERSON Dates: Start: 05/15/24 Expected End: 05/22/24 Goal: Pt will perform bathing with Steadying A for balance. Dates: Start: 05/15/24 Expected End: 05/22/24 Goal: Pt will utilize L UE gross assist during oral hygiene tasks. Dates: Start: 05/15/24 Expected End: 05/22/24 Encounter Problems (Resolved) Template: Occupational Therapy Problem: OT Short Term Goals Dates: Start: 04/20/24 Resolved: 05/03/24 Goal: Pt will perform toileting with partial A (Resolved) Dates: Start: 04/20/24 Expected End: 04/27/24 Resolved: 05/03/24 Outcomes Date/Time User Outcome 05/03/24 1407 Albina Gray OT Completed Goal: Pt will perform LB dressing with partial A (Resolved) Dates: Start: 04/20/24 Expected End: 04/27/24 Resolved: 05/03/24 Outcomes Date/Time User Outcome 05/03/24 1407 Albina Gray OT Completed Goal: Pt will perform bathing with steadying A. (Resolved) Dates: Start: 04/20/24 Expected End: 04/27/24 Resolved: 05/03/24 Outcomes Date/Time User Outcome 05/03/24 1407 Albina Gray OT Completed Goal: Pt will be able to utilize L UE as an independent stabilizer during grooming tasks (Resolved) Dates: Start: 04/20/24 Expected End: 04/27/24 Resolved: 05/03/24 Outcomes Date/Time User Outcome 05/03/24 1407 Albina Gray OT Completed Goal: Pt will perform UB dressing with PETERSON, with carryover of tasha dressing technique (Resolved) Dates: Start: 04/20/24 Expected End: 04/27/24 Resolved: 05/03/24 Outcomes Date/Time User Outcome 05/03/24 1407 Albina Gray, BRANNON Completed Education Documentation Safe Use of DME, taught by Joshua Tellez OT at 05/16/2024 11:50 AM. Learner: Patient Readiness: Acceptance Method: Explanation, Demonstration Response: Verbalizes Understanding, Demonstrated Understanding, Needs Reinforcement ADL Training, taught by Joshua Tellez OT at 05/16/2024 11:50 AM. Learner: Patient Readiness: Acceptance Method: Explanation, Demonstration Response: Verbalizes Understanding, Demonstrated Understanding, Needs Reinforcement Home Exercise Program, taught by Joshua Tellez OT at 05/16/2024 11:50 AM. Learner: Patient Readiness: Acceptance Method: Explanation, Demonstration Response: Verbalizes Understanding, Demonstrated Understanding, Needs Reinforcement Body Mechanics, taught by Joshua Tellez OT at 05/16/2024 11:50 AM. Learner: Patient Readiness: Acceptance Method: Explanation, Demonstration Response: Verbalizes Understanding, Demonstrated Understanding, Needs Reinforcement Activity/Positioning, taught by Joshua Tellez OT at 05/16/2024 11:50 AM. Learner: Patient Readiness: Acceptance Method: Explanation, Demonstration Response: Verbalizes Understanding, Demonstrated Understanding, Needs Reinforcement Discharge Planning, taught by Joshua Tellez OT at 05/16/2024 11:50 AM. Learner: Patient Readiness: Acceptance Method: Explanation, Demonstration Response: Verbalizes Understanding, Demonstrated Understanding, Needs Reinforcement Fall Precautions, taught by Joshua Tellez OT at 05/16/2024 11:50 AM. Learner: Patient Readiness: Acceptance Method: Explanation, Demonstration Response: Verbalizes Understanding, Demonstrated Understanding, Needs Reinforcement Education Comments No comments found. Start/Stop Time OT Time Calculation OT Start Time: 1000 OT Stop Time: 1130 OT Time Calculation (min): 90 min Therapy Minutes: Occupational Therapy OT Individual: 90 * Isi Vargehse RN - 05/16/2024 1:59 AM EST Problem: Cognitive: Domínguez Job Fall Risk Goal: Last Known Fall Outcome: Progressing Goal: Mobility requiring assistance of person or device Outcome: Progressing Goal: Dizziness Outcome: Progressing Goal: Medications Outcome: Progressing Goal: Mental Status/LOC/Awareness Outcome: Progressing Goal: Toileting Needs Outcome: Progressing Goal: Volume and Electrolyte Status Outcome: Progressing Goal: Communication/Sensory Outcome: Progressing Goal: Behavior Outcome: Progressing Problem: Skin Integrity: Pressure Injury Actual or Risk of Goal: Will not develop new pressure injury Outcome: Progressing Goal: Skin integrity will improve Outcome: Progressing Goal: Risk for impaired skin integrity will decrease Outcome: Progressing Problem: Activity:Pressure Injury Actual or Risk of Goal: Mobility will improve Outcome: Progressing Problem: Patient Specific Problem: Pressure Injury Actual or Risk of Goal: Patient Specific Outcome Outcome: Progressing Goals: Clinical Goals for the Shift: To stay free from falls. Identify possible barriers to meeting goals/advancing plan of care: Pt continues to work towards rehab goals Stability of the patient: Moderately Unstable - Medium risk of patient condition declining or worsening End of Shift Summary: Pt rang call noriega and requested assistance to BR. Min assist to set up w/c totoilet. Vx1. Denies pain. Left sided weakness. Bed alarm on. Bed locked/low. Call noriega within reach. * MARIE Arroyo - 05/15/2024 3:27 PM EST Speech Language Pathology Speech Language Pathology Treatment Subjective LOGISTICIAN Start Time: 829 LOGISTICIAN Stop Time: 934 LOGISTICIAN Time Calculation (min): 65 min Subjective: Pt was alert and sitting upright in bed for the session. Pt was pleasant and cooperative throughout the session. president practicing urologist [facility], #[id number], was used for the session. Objective General Visit Info General Family/Caregiver Present: Yes Treatment Speech and Language Speech Treatment (Individual) Time Entry: 30 Other Speech Activity: Pt participated in the CLQT. Pt engaged in a conversation about her speech and her speech goals. Pt reported that she agrees w/ her speech goals and would like to continue to target in future sessions. Cognitive Skills Therapeutic Interventions Cognitive Skills Direct Contact Time Entry: 35 Other Cognitive Skills Activity: Pt participated in the CLQT. Pt participated in VPJ and scored a 3/20, showing difficulty w/ reasoning tasks. Pt engaged in a conversation about her cognitive goals and reported that she agrees w/ the recommended goals. Cognitive Skills Comments: Goal review performed Cognitive-Linguistic skills were formally assessed using the Cognitive Linguistic Quick Test (CLQT). The CLQT assesses strengths and weaknesses in five cognitive domains (Attention, Memory, ExecutiveFunctions, Language, and Visuospatial Skills). CLQT is for use with adults with known or suspected neurological dysfunction. Subtests Administered Raw Score Personal Facts Yes 8 Symbol Cancellation Yes 11 Confrontation Naming Yes 10 Clock Drawing Yes 9 Story Retelling Yes 4 Symbol Trails Yes 7 Generative Naming Yes 6 Design Memory Yes 6 Mazes Yes 6 Design Generation Yes 5 Domain Score Impairment/Severity Rating Attention 169 mild Memory 146 mild Executive Function 24 WFL/ boarderline mild Languages 28 Mild/ boarderline WFL Visuo-spatial Skills 83 WFL Composite Severity Rating 3.4 Mild/ boarderline WFL Clock Drawing Severity Rating 9 moderate Assessment/Plan LOGISTICIAN Assessment LOGISTICIAN Assessment Results: Cognitive impairments Evaluation/Treatment Tolerance: Patient tolerated treatment well Plan Treatment/Interventions: Cognitive linguistic functioning LOGISTICIAN Plan: Skilled LOGISTICIAN LOGISTICIAN Frequency: 5-7 days per week LOGISTICIAN Duration of Sessions: 30-60 min per session LOGISTICIAN Treatments per day: 1 time per day LOGISTICIAN - Next Appointment: 05/16/24 Goals Encounter Problems Encounter Problems (Active) Template: Speech Therapy Problem: Cognitive/Linguistics Dates: Start: 04/20/24 Goal: Patient will participate in further assessment of cognitive-linguistic skills (Resolved) Dates: Start: 04/20/24 Expected End: 05/04/24 Resolved: 05/01/24 Description: Goal Type: STG, Performance Level: Independent Outcomes Date/Time User Outcome 05/01/24 0920 MARIE Shrestha Completed Goal: Patient will identify and utilize problem-solving intervention for task completion at 90% accuracy given min A (Resolved) Dates: Start: 04/20/24 Expected End: 05/17/24 Resolved: 05/15/24 Description: Goal Type: STG, Performance Level: Min assist Outcomes Date/Time User Outcome 05/15/24 1515 MARIE Arroyo Completed Goal: Patient will complete simple calculations for time/money management at 90% accuracy given Mauro Dates: Start: 04/20/24 Expected End: 05/17/24 Description: Goal Type: STG, Performance Level: Min assist Outcomes Date/Time User Outcome 05/14/24 1051 MARIE Arroyo Progressing Goal: Pt will improve intelligibility at the sentence/conversational level to baseline given min A for speech strategies. (Resolved) Dates: Start: 04/21/24 Expected End: 04/28/24 Resolved: 04/26/24 Description: Outcomes Date/Time User Outcome 04/26/24 1127 MARIE Arroyo Completed Goal: Pt will improve delayed recall of functional information given min A for encoding and min A for retrieval - 90% accuracy (Resolved) Dates: Start: 04/22/24 Expected End: 05/17/24 Resolved: 05/15/24 Description: Outcomes Date/Time User Outcome 05/15/24 1522 MARIE Arroyo Completed Goal: Pt will complete basic to mod level auditory/visual attention tasks - 90% accuracy given mod A. (Resolved) Dates: Start: 04/23/24 Expected End: 05/07/24 Resolved: 05/10/24 Description: Outcomes Date/Time User Outcome 05/10/24 1139 MARIE Arroyo Completed Goal: Pt will participate in sequencing/direction following tasks related to functional/ADL tasks given min A- 90% accuracy. Dates: Start: 04/24/24 Expected End: 05/17/24 Description: Outcomes Date/Time User Outcome 05/14/24 1051 MARIE Arroyo Not Progressing Goal: Pt will improve intelligibility at the paragraph/conversational level to baseline and independent w/ use of strategies Dates: Start: 04/26/24 Expected End: 05/22/24 Description: Outcomes Date/Time User Outcome 05/14/24 1051 MARIE Arroyo Not Progressing Goal: Pt will complete mod to higher level auditory/visual attention tasks - 90% accuracy given Mauro. (Resolved) Dates: Start: 05/10/24 Expected End: 05/17/24 Resolved: 05/15/24 Description: Outcomes Date/Time User Outcome 05/15/24 152MARIE Mcgill Completed Goal: Pt will improve complex attention for visual and/or auditory tasks to 90% accuracy indep. w/ use of strategies Dates: Start: 05/15/24 Expected End: 05/22/24 Description: Goal: Pt will improve delayed recall of functional information given min A for encoding and indep. for retrieval - 90% accuracy Dates: Start: 05/15/24 Expected End: 05/22/24 Description: Goal: Pt will improve higher level problem-solving/reasoning skills to 90% with min A. Dates: Start: 05/15/24 Expected End: 05/22/24 Description: Encounter Problems (Resolved) Template: Speech Therapy Problem: Swallowing Dates: Start: 04/20/24 Resolved: 04/23/24 Goal: Patient will tolerate the least restrictive diet consistency to allow for safe consumption ofdaily meals (Resolved) Dates: Start: 04/20/24 Expected End: 05/04/24 Resolved: 04/23/24 Description: Outcomes Date/Time User Outcome 04/23/24 1253 MARIE Shrestha Completed Goal: Patient will demonstrate safe swallowing Intervention/techniques (Resolved) Dates: Start: 04/20/24 Expected End: 05/04/24 Resolved: 04/23/24 Description: Outcomes Date/Time User Outcome 04/23/24 1253 MARIE Shrestha Completed Education Documentation Speech/Language, taught by MARIE Arroyo at 05/15/2024 12:09 PM. Learner: Patient Readiness: Acceptance Method: Explanation Response: Verbalizes Understanding Cognition, taught by MARIE Arroyo at 05/15/2024 12:09 PM. Learner: Patient Readiness: Acceptance Method: Explanation Response: Verbalizes Understanding Education Comments No comments found. Associated attestation - Jen Duque SLP - 05/15/2024 5:07 PM EST I attest that I, Amber Duque M.S.,[facility]-LOGISTICIAN, was physically involved in the ongoing assessment, decision making, and interventions provided during today's patient care session. I have reviewed all documentation for today's 05/15/24, entered by Speech Therapy Fellow, Sherri Rendon, and furtherattest that it is an accurate clinical record of today's encounter, including accurate and appropriate charges. * Joshua Tellez OT - 05/15/2024 12:30 PM EST [facility] Occupational Therapy Treatment Note 05/15/24 Patient: Amalia Ann : 1975 Age: 48 y.o. Gender: female Diagnosis: No Principal Problem: There is no principal problem currently on the Problem List. Please update the Problem List and refresh. Primary Rehab (Etiologic) Diagnosis: Patient Active Problem List Diagnosis HTN (hypertension) DM (diabetes mellitus) ([facility]/HCC) CVA (cerebral vascular accident) ([facility]) PMH: Past Medical History: Diagnosis Date CVA (cerebral vascular accident) ([facility]/HCC) DM (diabetes mellitus) ([facility]) HTN (hypertension) PSH: History reviewed. No pertinent surgical history. Allergies: is allergic to lisinopril. Precautions: Precautions Medical Precautions: Fall Risk Safety Interventions: Call noriega within reach Swallow Precautions: Modified Diet RUE Weight Bearing Status: Full LUE Weight Bearing Status: Full, As Tolerated RLE Weight Bearing Status: Full LLE Weight Bearing Status: Full Pain: Pt reporting back pain toward end of session, declining any pain medication or heat/ice at end of session. Subjective: I am ready to go. Procedures/Interventions: Balance/Neuromuscular Re-Education Neuromuscular Re-Education Time Entry: 90 Pt propelled self from room><gym S. Pt's L hand placed into hand paddle to assist with maintaining Digit extension throughout task. In stand, pt's L UE positioned into Weight bearing on table top. Pt tasked with performing word search,while reaching across midline with R UE, retrieve new colored pencil for each word. Therapists kneepositioned anterior/posterior to pt's L knee to prevent hyper extension or knee buckling. Steadying-partial A for balance. Seated rest beak taken. While in stand, Pt then tasked with sorting cards across midline, with R UE, to increase WB and proprioceptive input to L UE. Assist to stabilize L elbow during increased WB. Task upgraded by adding dual task component to adding 2 cards together with mental math. Pt able to perform simple addition with increased time only, for several trials. Seated rest break taken. Seated at able top, pt tasked with grasping block, with L UE, from tabel top and transporting to bucket across midline. Attempting use of vibration to L digit extensiors, howver no AROM. tasked contined as pt using some aspects of tenodesis. Pt largely utilizing shoulder abduction to lift blocks from table and transport to bucket. Min thumb abduction to allow pincer/lateral pinch grasp and a mix of gross grasp. Pt performed X mass reps, with partial A for AAROM toward end of reps due to fatigue. Rest breaks taken throughout due to fatigue. SPT w/c><mat with partial A. Seated EOB Air cast applied to L UE to isolate shoulder during AROM. 10 reps X3 of shoulder flexion/scaption to 90 and shoulder abduction to 90, with min resistanceapplied one trail. during shoulder abduction pt largely relaying in trunk musculature and use of shoulder hike/lateral lean to achieve 90 degrees AROM. Once back in room, SPT w/c>bed steadying A with UE support on bed rail. Sit>Supine S. Bed alarm on, and call noriega in reach. All needs met. OT Assessment OT Assessment OT Assessment Results: Decreased ADL status, Decreased upper extremity range of motion, Decreased upper extremity strength, Decreased safe judgment during ADL, Decreased fine motor control, Decreasedfunctional mobility, Decreased gross motor control, Decreased trunk control for functional activities Prognosis: Good Evaluation/Treatment Tolerance: Patient tolerated treatment well, Patient limited by fatigue Comments: Pt completed 90 min session, pt motivated throughout. Pt demo'ing use of UE compensatory strategies during neuro re ed grasp and transport tasks. Medical Staff Made Aware: Yes OT Plan Plan Treatment Interventions: ADL retraining, Functional transfer training, UE strengthening/ROM, Endurance training, Equipment evaluation/education, Patient/family training, Fine motor coordination activities, Neuromuscular reeducation OT Plan: Skilled OT OT Frequency : 5-7 days per week OT Duration of Sessions: 60-90 min per session OT Treatments per day: 1 time per day OT - Evaluation Status: Complete Equipment Recommended: (TBD) Goals: Encounter Problems Encounter Problems (Active) Template: Occupational Therapy Problem: OT Membership Manager Goals Dates: Start: 04/20/24 Goal: Pt will be mod I with LB dressing Dates: Start: 04/20/24 Expected End: 05/18/24 Outcomes Date/Time User Outcome 05/12/24 1217 RICHIE Lucas Progressing Goal: Pt will be mod I with UB dressing Dates: Start: 04/20/24 Expected End: 05/18/24 Outcomes Date/Time User Outcome 05/12/24 1217 RICHIE Lucas Progressing Goal: Pt will be S with bathing Dates: Start: 04/20/24 Expected End: 05/18/24 Outcomes Date/Time User Outcome 05/12/247 RICHIE Lucas Progressing Goal: Pt will be mod I with toileting including txfer Dates: Start: 04/20/24 Expected End: 05/18/24 Outcomes Date/Time User Outcome 05/12/247 RICHIE Lucas Progressing Goal: Pt will perform tub txfer with LRAD with S. Dates: Start: 04/20/24 Expected End: 05/18/24 Outcomes Date/Time User Outcome 05/12/241216 RICHIE Lucas Progressing Goal: Pt will be mod I with snack/beverage retrieval at LRAD Dates: Start: 04/20/24 Expected End: 05/18/24 Description: Outcomes Date/Time User Outcome 05/12/241216 RICHIE Lucas Progressing Encounter Problems (Resolved) Template: Occupational Therapy Problem: OT Short Term Goals Dates: Start: 04/20/24 Resolved: 05/03/24 Goal: Pt will perform toileting with partial A (Resolved) Dates: Start: 04/20/24 Expected End: 04/27/24 Resolved: 05/03/24 Outcomes Date/Time User Outcome 05/03/24 Susan Gray OT Completed Goal: Pt will perform LB dressing with partial A (Resolved) Dates: Start: 04/20/24 Expected End: 04/27/24 Resolved: 05/03/24 Outcomes Date/Time User Outcome 05/03/24 Susan Gray OT Completed Goal: Pt will perform bathing with steadying A. (Resolved) Dates: Start: 04/20/24 Expected End: 04/27/24 Resolved: 05/03/24 Outcomes Date/Time User Outcome 05/03/24 Susan Gray OT Completed Goal: Pt will be able to utilize L UE as an independent stabilizer during grooming tasks (Resolved) Dates: Start: 04/20/24 Expected End: 04/27/24 Resolved: 05/03/24 Outcomes Date/Time User Outcome 05/03/24 Susan Gray OT Completed Goal: Pt will perform UB dressing with PETERSON, with carryover of tasha dressing technique (Resolved) Dates: Start: 04/20/24 Expected End: 04/27/24 Resolved: 05/03/24 Outcomes Date/Time User Outcome 05/03/24 1407 Albina Gray, OT Completed Education Documentation Activity/Positioning, taught by Joshua Tellez OT at 05/15/2024 2:35 PM. Learner: Patient Readiness: Acceptance Method: Explanation, Demonstration Response: Verbalizes Understanding, Needs Reinforcement, Demonstrated Understanding Education Comments No comments found. Start/Stop Time OT Time Calculation OT Start Time: 1230 OT Stop Time: 1400 OT Time Calculation (min): 90 min Therapy Minutes: Occupational Therapy OT Individual: 90 Note edited this date as note was accidentally signed prior to to finishing documentation * Elzbieta Garcia, PT - 05/15/2024 10:43 AM EST [facility] Physical Therapy Treatment Note 05/15/2024 Patient: Amalia Ann : 1975 Age: 48 y.o. Gender: female Primary Language: Barbadian Diagnosis: No Principal Problem: There is no principal problem currently on the Problem List. Please update the Problem List and refresh. Past Medical History: Diagnosis Date CVA (cerebral vascular accident) (CMS/HCC) DM (diabetes mellitus) ([facility]) HTN (hypertension) History reviewed. No pertinent surgical history. Allergies: is allergic to lisinopril. Precautions: Medical Precautions: Fall Risk Safety Interventions: Call noriega within reach RUE Weight Bearing Status: Full LUE Weight Bearing Status: Full, As Tolerated RLE Weight Bearing Status: Full LLE Weight Bearing Status: Full NURSING RECOMMENDATIONS Bed Mobility: Transfers: Ambulation: SUBJECTIVE Pt report: I'm good Pain: 0/10 OBJECTIVE General Observation: Seated in WC agreeable to participating in therapy session. Procedure/Treatment: Neuromuscular Reeducation: Balance/Neuromuscular Re-Education Neuromuscular Re-Education Time Entry: 90 Patient Wheelchair agreeable to participating in therapy session. Video automatic embroidery machine tender [id number]. Therapist performing skin check on LLE, skin intact, therapist donning toe off AFO, pt ambulating partial-Ax1 with LBQC, x1 LOB, posteriorly, increased time to correct, therapist doffing toe off AFO and danielle ing posterior leaf spring AFO, pt needing partial-A x1 and SBA x1 with LBQC, x1 posterior LOB, increased instance of stance phase instability. Pt completed 4x10ft of ambulation with LBQC and toe off AFO, cued for stance phase control on LLE, with verbal cue pt able to achieve a delayed terminal knee extension. Pt attempting to ambulate x30ft with LBQC and AFO , therapist attempting to facilitate terminal knee extension, second assist present for facilitation of weight shifting, pt with large LOB needing max-A x2 for controlled sit into chair. Pt becoming emotional and tearful, needing increased time to process severe LOB. Pt reporting nothing physically hurt, reporting she is okay. Pt ambulating x10ft with LBQC partial A x1, step to pattern with AFO donned. Pt completed x12 stairs R ascending rail step to pattern, partial-A x1 on stairs, no LOB, therapist assisting with placement of LLEon descent. Therapist doffing AFO, skin intact. Pt dep brought back to room in WC. Pt left seated in WC, call noriega in reach, chair alarm on, all needs met. Education: ASSESSMENT Pt with large LOB with max-A x2 for recovery for LOB, pt ambulating partial A x1 with ambulation with LBQC and AFO. Equipment: TBD Plan of Care Plan Treatment/Interventions: (As per IE) PT Plan: Skilled PT PT Frequency: 5-7 days per week PT Duration of Sessions: 60-90 min per session PT Treatments per day: 1-2 times per day Equipment Recommended: TBD Barriers to Discharge: home environment, medical condition PT - Evaluation Status: Complete Problems/Goals Goals: Encounter Problems Encounter Problems (Active) Template: Physical Therapy Problem: PT Membership Manager Goals Dates: Start: 04/20/24 Goal: mod I bed mobility Dates: Start: 04/20/24 Expected End: 05/11/24 Outcomes Date/Time User Outcome 05/10/24 1208 Elzbieta Garcia PT Progressing Goal: mod I transfers with LAD Dates: Start: 04/20/24 Expected End: 05/11/24 Outcomes Date/Time User Outcome 05/10/24 1208 Elzbieta Garcia PT Progressing Goal: mod I wc mobility 150' Dates: Start: 04/20/24 Expected End: 05/11/24 Outcomes Date/Time User Outcome 05/10/24 1208 Elzbieta Garcia PT Progressing Goal: up/dn 4 flights of stairs min A Dates: Start: 04/20/24 Expected End: 05/11/24 Outcomes Date/Time User Outcome 05/10/24 1208 Elzbieta Garcia PT Progressing Problem: PT Short Term Goals Dates: Start: 04/20/24 Goal: Pt will perform bed mobility min A Dates: Start: 04/20/24 Expected End: 04/27/24 Outcomes Date/Time User Outcome 05/10/24 1208 Elzbieta Garcia PT Progressing Goal: Pt will transfer with min A Dates: Start: 04/20/24 Expected End: 04/27/24 Outcomes Date/Time User Outcome 05/10/24 1208 Elzbieta Garcia PT Progressing Goal: Pt will ambulate 25' with LAD mod A Dates: Start: 04/20/24 Expected End: 04/27/24 Outcomes Date/Time User Outcome 05/10/24 1208 Elzbieta Garcia PT Progressing Goal: Assess stairs as appropriate (Resolved) Dates: Start: 04/20/24 Expected End: 04/27/24 Resolved: 05/06/24 Outcomes Date/Time User Outcome 05/06/24 1038 Elzbieta Garcia PT Completed Goal: Supervision wc mobility and mgmt 150' (Resolved) Dates: Start: 04/20/24 Expected End: 04/27/24 Resolved: 05/06/24 Description: Outcomes Date/Time User Outcome 05/06/24 1038 Elzbieta Garcia PT Completed Encounter Problems (Resolved) There are no resolved problems. Session Start/Stop Time: 1000 1130 Therapy Minutes Physical Therapy PT Individual: 90 * Elzbieta Garcia PT - 05/14/2024 2:09 PM EST [facility] Physical Therapy Treatment Note 05/14/2024 Patient: Amalia Ann : 1975 Age: 48 y.o. Gender: female Primary Language: Barbadian Diagnosis: No Principal Problem: There is no principal problem currently on the Problem List. Please update the Problem List and refresh. Past Medical History: Diagnosis Date CVA (cerebral vascular accident) ([facility]/HCC) DM (diabetes mellitus) ([facility]) HTN (hypertension) History reviewed. No pertinent surgical history. Allergies: is allergic to lisinopril. Precautions: Medical Precautions: Fall Risk Safety Interventions: Call noriega within reach RUE Weight Bearing Status: Full LUE Weight Bearing Status: Full, As Tolerated RLE Weight Bearing Status: Full LLE Weight Bearing Status: Full NURSING RECOMMENDATIONS Bed Mobility: Transfers: Ambulation: SUBJECTIVE Pt report: I am tired Pain: OBJECTIVE General Observation: Supine in bed agreeable to participating in PT session. General/Functional Assessments: Procedure/Treatment: Neuromuscular Reeducation: Balance/Neuromuscular Re-Education Neuromuscular Re-Education Time Entry: 90 Video automatic embroidery machine tender [id number] used for therapy session. Patient in Wheelchair agreeable to participating in therapy session. Pt completed stand pivot transfer to , partial A x1. Pt dep. Brought down to therapy gym. Pt completed 2x10ft of ambulation withLBQC, partial A x1, pt with large posterior LOB, needing increased time to correct with eventual stepping response initiated to correct for LOB. Therapist performing skin check prior to donning L toeoff AFO and shoe, skin intact. Pt completed 2x30ft with LBQC, partial A for more than steadying assistance with LBQC and step to pattern, pt cued for small step pattern. Pt completed 4 stairs x3 trials, pt with step to pattern with AFO donned, R ascending railing step to pattern, pt with improvement in uplift on stairs, and placement of LLE, pt with improved descent with decreased knee flexion when descending stairs with LLE. Pt completed mass rep STS attempting to bias LLE to improve WB, pt unable to appropriately weight shift to LLE with facilitated assistance of 3 inch step, 6 inch step, cued to step up onto 1 inch step. Pt having difficulty off loading RLE to WB on LLE and move RLE ontostep. Pt with posterior LOB with STS. Pt completed stand pivot transfer from mat table to WC, pt needing max-A with large posterior LOB and no stepping or corrective response noted. Pt acknowledging all LOB throughout therapy session and with appropriate awareness. Pt dep. Brought back to room, pt needing partial A for stand pivot transfer to EOB, SUP for sit to supine. Pt left supine in bed, call noriega in reach, bed alarm on, all needs met. Education: Education Documentation Mobility Training, taught by Elzbieta Garcia PT at 05/14/2024 2:25 PM. Learner: Patient Readiness: Acceptance Method: Trench Trimmer Fine, Explanation, Demonstration Response: Verbalizes Understanding, Demonstrated Understanding Comment: balance, static standing, AFO, stairs Education Comments No comments found. ASSESSMENT Pts gait improving with use of AFO, decreased incidents of LOB with use of toe off AFO. Equipment: TBD Plan of Care Plan Treatment/Interventions: (As per IE) PT Plan: Skilled PT PT Frequency: 5-7 days per week PT Duration of Sessions: 60-90 min per session PT Treatments per day: 1-2 times per day Equipment Recommended: TBD Barriers to Discharge: home environment, medical condition PT - Evaluation Status: Complete Problems/Goals Goals: Encounter Problems Encounter Problems (Active) Template: Physical Therapy Problem: PT Membership Manager Goals Dates: Start: 04/20/24 Goal: mod I bed mobility Dates: Start: 04/20/24 Expected End: 05/11/24 Outcomes Date/Time User Outcome 05/10/24 120Leo Garcia, PT Progressing Goal: mod I transfers with LAD Dates: Start: 04/20/24 Expected End: 05/11/24 Outcomes Date/Time User Outcome 05/10/24 120Leo Garcia, PT Progressing Goal: mod I wc mobility 150' Dates: Start: 04/20/24 Expected End: 05/11/24 Outcomes Date/Time User Outcome 05/10/24 120Leo Garcia, TAD Progressing Goal: up/dn 4 flights of stairs min A Dates: Start: 04/20/24 Expected End: 05/11/24 Outcomes Date/Time User Outcome 05/10/24 1208 Elzbieta Garcia PT Progressing Problem: PT Short Term Goals Dates: Start: 04/20/24 Goal: Pt will perform bed mobility min A Dates: Start: 04/20/24 Expected End: 04/27/24 Outcomes Date/Time User Outcome 05/10/24 120Leo Garcia PT Progressing Goal: Pt will transfer with min A Dates: Start: 04/20/24 Expected End: 04/27/24 Outcomes Date/Time User Outcome 05/10/24 1208 Elzbieta Garcia PT Progressing Goal: Pt will ambulate 25' with LAD mod A Dates: Start: 04/20/24 Expected End: 04/27/24 Outcomes Date/Time User Outcome 05/10/24 1208 Elzbieta Garcia PT Progressing Goal: Assess stairs as appropriate (Resolved) Dates: Start: 04/20/24 Expected End: 04/27/24 Resolved: 05/06/24 Outcomes Date/Time User Outcome 05/06/24 1038 Elzbieta Garcia PT Completed Goal: Supervision wc mobility and mgmt 150' (Resolved) Dates: Start: 04/20/24 Expected End: 04/27/24 Resolved: 05/06/24 Description: Outcomes Date/Time User Outcome 05/06/24 1038 Elzbieta Garcia PT Completed Encounter Problems (Resolved) There are no resolved problems. Session Start/Stop Time: 1230 1400 Therapy Minutes Physical Therapy PT Individual: 90 * Sheron Dye - 05/14/2024 12:20 PM EST Social Work Note Integrated Radio Repair Teacher: DX: Adjustment DO: Met with patient this afternoon to see how she was feeling after getting the notification that theyextended her days for another 2 weeks due to the decline in her abilities. She reported that it took her by surprise and felt as she was being punished but once she processed her thoughts she was feeling less defeated and more motivated to get stronger and get home. Overall she appears to be in a better space. Will continue to monitor. Sheron Dye MS Clinician * MARIE Arroyo - 05/14/2024 11:44 AM EST Speech Language Pathology Speech Language Pathology Treatment Subjective LOGISTICIAN Start Time: 1015 LOGISTICIAN Stop Time: 1115 LOGISTICIAN Time Calculation (min): 60 min Subjective: Pt was alert and sitting upright in bed for the session. Pt was pleasant and cooperative throughout the session. president practicing urologist Pravin, #[id number], was used for the session. Objective General Visit Info General Family/Caregiver Present: No Treatment Speech and Language Speech Treatment (Individual) Time Entry: 15 Verbal Expression: Pt reviewed the speech strategies. Pt was able to describe pictures w/ 70-70% inteliligiblity, automatic embroidery machine tender required repetition in 4/7 trials. Pt engaged in a conversation about herspeech and reported that she feels like her speech is getting better but it is not back at baseline. Will continue to target in future sessions. Cognitive Skills Therapeutic Interventions Cognitive Skills Direct Contact Time Entry: 45 Sequencing: Pt was able to recall sequence for getting out of bed from previous session given min reminders for what to do w/ the L side. Pt was able to recall the steps for tranfer to wheelchair given min-mod A of orgnaization and recalling steps. Problem Solving: Pt was able to answer questions related to time calculations w/ 60% accuracy indep. and 75% given min A of repetitions and rephrasing, 100% given mod A for calculations. Pt had increased difficulty w/ questions related to subtracting time Attention/Concentration: Pt was able to complete abstract and concrete categorization task w/ 75% accuracy indep. and 100% given min A of reminders to add to the list and generating the category Other Cognitive Skills Activity: Pt was provided a reading comprehension task for HW Cognitive Skills Comments: Pt will participate in re-assessment in next session Assessment/Plan LOGISTICIAN Assessment LOGISTICIAN Assessment Results: Cognitive impairments Evaluation/Treatment Tolerance: Patient tolerated treatment well Plan Treatment/Interventions: Cognitive linguistic functioning LOGISTICIAN Plan: Skilled LOGISTICIAN LOGISTICIAN Frequency: 5-7 days per week LOGISTICIAN Duration of Sessions: 30-60 min per session LOGISTICIAN - Next Appointment: 05/15/24 Goals Encounter Problems Encounter Problems (Active) Template: Speech Therapy Problem: Cognitive/Linguistics Dates: Start: 04/20/24 Goal: Patient will participate in further assessment of cognitive-linguistic skills (Resolved) Dates: Start: 04/20/24 Expected End: 05/04/24 Resolved: 05/01/24 Description: Goal Type: STG, Performance Level: Independent Outcomes Date/Time User Outcome 05/01/24 0920 Shayy Sanchez, LOGISTICIAN Completed Goal: Patient will identify and utilize problem-solving intervention for task completion at 90% accuracy given min A Dates: Start: 04/20/24 Expected End: 05/17/24 Description: Goal Type: STG, Performance Level: Min assist Outcomes Date/Time User Outcome 05/10/24 1141 MARIE Arroyo Not Progressing Goal: Patient will complete simple calculations for time/money management at 90% accuracy given Mauro Dates: Start: 04/20/24 Expected End: 05/17/24 Description: Goal Type: STG, Performance Level: Min assist Outcomes Date/Time User Outcome 05/14/24 1051 MARIE Arroyo Progressing Goal: Pt will improve intelligibility at the sentence/conversational level to baseline given min A for speech strategies. (Resolved) Dates: Start: 04/21/24 Expected End: 04/28/24 Resolved: 04/26/24 Description: Outcomes Date/Time User Outcome 04/26/24 1127 MARIE Arroyo Completed Goal: Pt will improve delayed recall of functional information given min A for encoding and min A for retrieval - 90% accuracy Dates: Start: 04/22/24 Expected End: 05/17/24 Description: Outcomes Date/Time User Outcome 05/10/24 1139 MARIE Arroyo Progressing Goal: Pt will complete basic to mod level auditory/visual attention tasks - 90% accuracy given mod A. (Resolved) Dates: Start: 04/23/24 Expected End: 05/07/24 Resolved: 05/10/24 Description: Outcomes Date/Time User Outcome 05/10/24 1139 MARIE Arroyo Completed Goal: Pt will participate in sequencing/direction following tasks related to functional/ADL tasks given min A- 90% accuracy. Dates: Start: 04/24/24 Expected End: 05/17/24 Description: Outcomes Date/Time User Outcome 05/14/24 105MARIE Mcgill Not Progressing Goal: Pt will improve intelligibility at the paragraph/conversational level to baseline and independent w/ use of strategies Dates: Start: 04/26/24 Expected End: 05/15/24 Description: Outcomes Date/Time User Outcome 05/14/24 MARIE Tang Not Progressing Goal: Pt will complete mod to higher level auditory/visual attention tasks - 90% accuracy given Mauro. Dates: Start: 05/10/24 Expected End: 05/17/24 Description: Outcomes Date/Time User Outcome 05/14/24 1140 MARIE Arroyo Progressing Encounter Problems (Resolved) Template: Speech Therapy Problem: Swallowing Dates: Start: 04/20/24 Resolved: 04/23/24 Goal: Patient will tolerate the least restrictive diet consistency to allow for safe consumption ofdaily meals (Resolved) Dates: Start: 04/20/24 Expected End: 05/04/24 Resolved: 04/23/24 Description: Outcomes Date/Time User Outcome 04/23/24 1253 MARIE Shrestha Completed Goal: Patient will demonstrate safe swallowing Intervention/techniques (Resolved) Dates: Start: 04/20/24 Expected End: 05/04/24 Resolved: 04/23/24 Description: Outcomes Date/Time User Outcome 04/23/24 1253 MARIE Shrestha Completed Education Documentation Speech/Language, taught by MARIE Arroyo at 05/14/2024 11:44 AM. Learner: Patient Readiness: Acceptance Method: Explanation Response: Verbalizes Understanding Cognition, taught by MARIE Arroyo at 05/14/2024 11:44 AM. Learner: Patient Readiness: Acceptance Method: Explanation Response: Verbalizes Understanding Education Comments No comments found. Associated attestation - Jen Duque SLP - 05/14/2024 3:56 PM EST I attest that I, Amber Duque M.S.,[facility]-LOGISTICIAN, was physically involved in the ongoing assessment, decision making, and interventions provided during today's patient care session. I have reviewed all documentation for today's 05/14/24, entered by Speech Therapy Fellow, Sherri Rendon, and further attest that it is an accurate clinical record of today's encounter, including accurate and appropriate charges. * Joshua Tellez OT - 05/14/2024 8:30 AM EST [facility] Occupational Therapy Treatment Note 05/14/24 Patient: Amalia Ann : 1975 Age: 48 y.o. Gender: female Diagnosis: No Principal Problem: There is no principal problem currently on the Problem List. Please update the Problem List and refresh. Primary Rehab (Etiologic) Diagnosis: Patient Active Problem List Diagnosis HTN (hypertension) DM (diabetes mellitus) ([facility]/HCC) CVA (cerebral vascular accident) ([facility]/HCC) PMH: Past Medical History: Diagnosis Date CVA (cerebral vascular accident) (CMS/HCC) DM (diabetes mellitus) (CMS/[facility]) HTN (hypertension) PSH: History reviewed. No pertinent surgical history. Allergies: is allergic to lisinopril. Precautions: Precautions Medical Precautions: Fall Risk Safety Interventions: Call noriega within reach Swallow Precautions: Modified Diet RUE Weight Bearing Status: Full LUE Weight Bearing Status: Full, As Tolerated RLE Weight Bearing Status: Full LLE Weight Bearing Status: Full Vitals: BP: 137/68 Heart Rate: 69 Pain: Pain Assessment Pain Assessment: No/denies pain Subjective: My knee feels unstable Procedures/Interventions: ADLs/IADLs Self Care/Home Management (ADLs) Time Entry: 30 Pt in elevated supine upon arrival agreeable to participation. Vitals assessed, see above. Video Barbadian><[place] Islander automatic embroidery machine tender utilized #[id number]. Pt attempted to don sock with use of B Ues however limited success with use of L UE, pt donning with use of R UE mainly. Sit on EOB with S. SPT with steadying A no AD. Once back in room SPT W/c><toilet with UE support on grab bar steadying A. Partial A for CM hiking up/down on L side. Pt able to have Bm and perform posterior hygiene while seated. Seated in w/c pt performed hand hygiene with S. SPT partial A for more than steadying w/c>bed, Sit>Supine S. Bed alarm on, L UE supported, and call noriega in reach. Balance/Neuromuscular Re-Education Neuromuscular Re-Education Time Entry: 60 SPT w/c>mat max max A due to L knee buckling and posterior LOB. Seated on mat, with mirror placed anteriorly for visual feedback, pt performed 10 reps X3 of shoulder flexion and elbow flexion withuse of 1 lb weighted bar for L UE AAROM. Verbal cues for maintaining symmetry during shoulder flexion to 90 degrees. Pt able to maintain grasp in L UE throughout, however loose. Good visual attention thrgouhout. In supine pt performed chest press with B Ues with min A at L elbow to achieve ROM. Seated on edge of mat pt attempting digit flexion/extension, vibration utilized for digit extension, ever minimal AROM noted, PROM required for full ROM. Pt able to assume sigit felxion, however weak. No digit extension without vibration. Pt comeplted task to target grasp, transport, and release of items. Assist to assume pre grasp withextended digits. Pt able to grasp item, and then tasked with transporting to smaller color coordinated target. Pt with difficulty utilizing supination to achieve neurtral wrist in order to place on target. Task downgraded to use larger items (cones) to increase success. However continued to requireassist to achieve neutral wrist in order to place on target. Pt grasped (with assist for digit extension), and transported cones to target x mass reps. Pt provided homework for carryover in down time of performing AROM of Supination/pronation. SPT mat>w/c partial A. OT Assessment OT Assessment OT Assessment Results: Decreased ADL status, Decreased upper extremity range of motion, Decreased upper extremity strength, Decreased safe judgment during ADL, Decreased fine motor control, Decreasedfunctional mobility, Decreased gross motor control, Decreased trunk control for functional activities Prognosis: Good Evaluation/Treatment Tolerance: Patient tolerated treatment well, Patient limited by fatigue Comments: (Completed 90min session. Pt would benefit from ongoing neuro re-ed to L UE to increased functional use. Pt with little to no L digit extension at this time. Pt with inconsistent txfers this date engaging from steadying-max A). OT Plan Plan Treatment Interventions: ADL retraining, Functional transfer training, UE strengthening/ROM, Endurance training, Equipment evaluation/education, Patient/family training, Fine motor coordination activities, Neuromuscular reeducation OT Plan: Skilled OT OT Frequency : 5-7 days per week OT Duration of Sessions: 60-90 min per session OT Treatments per day: 1 time per day OT - Evaluation Status: Complete Equipment Recommended: (TBD) Goals: Encounter Problems Encounter Problems (Active) Template: Occupational Therapy Problem: OT Chcf Goals Dates: Start: 04/20/24 Goal: Pt will be mod I with LB dressing Dates: Start: 04/20/24 Expected End: 05/18/24 Outcomes Date/Time User Outcome 05/12/24 5027 RICHIE Lucas Progressing Goal: Pt will be mod I with UB dressing Dates: Start: 04/20/24 Expected End: 05/18/24 Outcomes Date/Time User Outcome 05/12/241216 RICHIE Lucas Progressing Goal: Pt will be S with bathing Dates: Start: 04/20/24 Expected End: 05/18/24 Outcomes Date/Time User Outcome 05/12/241216 RICHIE Lucas Progressing Goal: Pt will be mod I with toileting including txfer Dates: Start: 04/20/24 Expected End: 05/18/24 Outcomes Date/Time User Outcome 05/12/241216 RICHIE Lucas Progressing Goal: Pt will perform tub txfer with LRAD with S. Dates: Start: 04/20/24 Expected End: 05/18/24 Outcomes Date/Time User Outcome 05/12/241216 RICHIE Lucas Progressing Goal: Pt will be mod I with snack/beverage retrieval at LRAD Dates: Start: 04/20/24 Expected End: 05/18/24 Description: Outcomes Date/Time User Outcome 05/12/241216 RICHIE Lucas Progressing Encounter Problems (Resolved) Template: Occupational Therapy Problem: OT Short Term Goals Dates: Start: 04/20/24 Resolved: 05/03/24 Goal: Pt will perform toileting with partial A (Resolved) Dates: Start: 04/20/24 Expected End: 04/27/24 Resolved: 05/03/24 Outcomes Date/Time User Outcome 05/03/24 140Angie Gray OT Completed Goal: Pt will perform LB dressing with partial A (Resolved) Dates: Start: 04/20/24 Expected End: 04/27/24 Resolved: 05/03/24 Outcomes Date/Time User Outcome 05/03/24 Susan Gray OT Completed Goal: Pt will perform bathing with steadying A. (Resolved) Dates: Start: 04/20/24 Expected End: 04/27/24 Resolved: 05/03/24 Outcomes Date/Time User Outcome 05/03/24 140Angie Gray OT Completed Goal: Pt will be able to utilize L UE as an independent stabilizer during grooming tasks (Resolved) Dates: Start: 04/20/24 Expected End: 04/27/24 Resolved: 05/03/24 Outcomes Date/Time User Outcome 05/03/24 1407 Albina Gray OT Completed Goal: Pt will perform UB dressing with PETERSON, with carryover of tasha dressing technique (Resolved) Dates: Start: 04/20/24 Expected End: 04/27/24 Resolved: 05/03/24 Outcomes Date/Time User Outcome 05/03/24 1407 Albina Gray OT Completed Education Documentation ADL Training, taught by Joshua Tellez OT at 05/14/2024 11:35 AM. Learner: Patient Readiness: Acceptance Method: Explanation, Demonstration Response: Verbalizes Understanding, Demonstrated Understanding, Needs Reinforcement Home Exercise Program, taught by Joshua Tellez OT at 05/14/2024 11:35 AM. Learner: Patient Readiness: Acceptance Method: Explanation, Demonstration Response: Verbalizes Understanding, Demonstrated Understanding, Needs Reinforcement Body Mechanics, taught by Joshua Tellez OT at 05/14/2024 11:35 AM. Learner: Patient Readiness: Acceptance Method: Explanation, Demonstration Response: Verbalizes Understanding, Demonstrated Understanding, Needs Reinforcement Activity/Positioning, taught by Joshua Tellez OT at 05/14/2024 11:35 AM. Learner: Patient Readiness: Acceptance Method: Explanation, Demonstration Response: Verbalizes Understanding, Demonstrated Understanding, Needs Reinforcement Education Comments No comments found. Start/Stop Time OT Time Calculation OT Start Time: 0830 OT Stop Time: 1000 OT Time Calculation (min): 90 min Therapy Minutes: Occupational Therapy OT Individual: 90 * Isi Varghese RN - 05/14/2024 12:34 AM EST Problem: Cognitive: Domínguez Job Fall Risk Goal: Last Known Fall Outcome: Progressing Goal: Mobility requiring assistance of person or device Outcome: Progressing Goal: Medications Outcome: Progressing Goal: Toileting Needs Outcome: Progressing Problem: Skin Integrity: Pressure Injury Actual or Risk of Goal: Will not develop new pressure injury Outcome: Progressing Goal: Skin integrity will improve Outcome: Progressing Goal: Risk for impaired skin integrity will decrease Outcome: Progressing Goals: Clinical Goals for the Shift: To stay free from falls. Identify possible barriers to meeting goals/advancing plan of care: Patient working towards rehab goals. Stability of the patient: Moderately Unstable - Medium risk of patient condition declining or worsening End of Shift Summary: Pt required hands on steadying assistance from bed to set up w/c. Pt used grab bar and transferred from w/c to toilet. Vx1. Able to cleanse self. Left sided weakness. Required assistance to pull up/down pants. Denies pain. Bed alarm on. Bed locked/low. Call noriega within reach. * Jorden Soto LCSW - 05/13/2024 1:46 PM EST Team Meeting: Met with pt at bedside to review post team recommendations. Utilized Manager Parking #[id number]. Due to increase in weakness last week. MRI and Brain CT ordered. Due to change in functional status, therapy recommending extending stay with new tentative discharge set for 05/31/24. Pt with decreased strength, poor balance. Unable to ambulate at this time. Pt tearful and wanting to be home sooner but in agreement with new tentative discharge date. Pt very emotional, requested Sheron ANGEL visit withpt. Pt aware tentative discharge date is pending pts progress, participation and insurance approval. Pt had no further questions or concerns at this time. Insurance update due 05/16. * Joshua Tellez, OT - 05/13/2024 12:30 PM EST [facility] Occupational Therapy Treatment Note 05/13/24 Patient: Amalia Ann : 1975 Age: 48 y.o. Gender: female Diagnosis: No Principal Problem: There is no principal problem currently on the Problem List. Please update the Problem List and refresh. Primary Rehab (Etiologic) Diagnosis: Patient Active Problem List Diagnosis HTN (hypertension) DM (diabetes mellitus) (CMS/HCC) CVA (cerebral vascular accident) (CMS/HCC) PMH: Past Medical History: Diagnosis Date CVA (cerebral vascular accident) (CMS/HCC) DM (diabetes mellitus) (CMS/HCC) HTN (hypertension) PSH: History reviewed. No pertinent surgical history. Allergies: is allergic to lisinopril. Precautions: Precautions Medical Precautions: Fall Risk Safety Interventions: Call noriega within reach Swallow Precautions: Modified Diet RUE Weight Bearing Status: Full LUE Weight Bearing Status: Full, As Tolerated RLE Weight Bearing Status: Full LLE Weight Bearing Status: Full Pain: headache toward end of session, Rn notified of pt request for pain meds. Subjective: I am sad about my discharge date. Procedures/Interventions: ADLs/IADLs Self Care/Home Management (ADLs) Time Entry: 60 Pt in elevated supine upon arrival, agreeable to participation, Video [place]er ><[place] videointerpreter utilized throughout. Pt consoled as pt reporting she was upset regarding change in d/c date, following education regarding benefit of rehab and goals prior to return home, pt in agreement. Pt agreeable to shower. Elevated supine>Sit EOB S. SPT bed>w/c steadying A, with good hand placement. Pt dep wheeled into shower as pt was tearful. SPT from w/c><tub bench partial A for more than steadying A. While in stand pt hiked pants down while attempting use of L UE, steadying A for balance. Pt doffed shirt with increased time with verbal cues for strategy. Pt bathed mainly seated with use of hand held shower, with cues for utilizing L UE to reach R underarm. STS in shower with UE support on grab bar, with steadying A. While in stand pt bathe valerie area, holding hand held shower with L hand, however poor aim, thus therapist assisted. Post shower pt dressed in lopez to return to room. Once in room pt dressed UB with assist for orientation of shirt and verbal cues for tasha dressing technique, overall touching A. Pt able to thread B Les through pants with S while seated In stand partial A to hike underwear over L hip, pt able to utilize B Ues to hike pants over L hip. Cues for locking breaks prior to dressing. Pt propelled self from room><gym S. Balance/Neuromuscular Re-Education Neuromuscular Re-Education Time Entry: 30 SPT partial A from w/c>mat as pt with posterior LOB. Sit>supine S. In supine L UE placed intoair cast in order to isolate shoulder. Pt performed mass reps of shoulder flexion to 90. Initially pt able to complete 4 reps consecutively however noted difficulty achieving end range on 5th rep. Vibration to anterior deltoid utilized for remainder of reps in order to maximize muscle recruitment. Internal/extension ration, with 1 lb wist weight and elbow support X mass reps. Touching A for controlled movement, some dis coordination with internal rotation. Supine>sit S. AROM L shoulder abduction to 90 X mass reps. Pt initially utilizing shoulder hiking to compensate, pt tasked with performing B shoulder abduction to reduce compensation with good results. SPT mat>w/c with partial A formore than steadying. Pt propelled self back to room S. Pt set self up at bed appropriately in prep for txfer, SPT steadying A. Sit>Supine S. Bed alarm on and call noriega in reach, RN notified of pt request for pain meds. OT Assessment OT Assessment OT Assessment Results: Decreased ADL status, Decreased upper extremity range of motion, Decreased upper extremity strength, Decreased safe judgment during ADL, Decreased fine motor control, Decreasedfunctional mobility, Decreased gross motor control, Decreased trunk control for functional activities Prognosis: Good Evaluation/Treatment Tolerance: Patient tolerated treatment well, Patient limited by fatigue Comments: (Completed 90min session. Pt able to incorporate L UE into ADLs including LB dressing this date, with some success. Txfers inconsistent this session ranging from steadying-partial A.) Medical Staff Made Aware: Yes OT Plan Plan Treatment Interventions: ADL retraining, Functional transfer training, UE strengthening/ROM, Endurance training, Equipment evaluation/education, Patient/family training, Fine motor coordination activities, Neuromuscular reeducation OT Plan: Skilled OT OT Frequency : 5-7 days per week OT Duration of Sessions: 60-90 min per session OT Treatments per day: 1 time per day OT - Evaluation Status: Complete Equipment Recommended: (TBD) Goals: Encounter Problems Encounter Problems (Active) Template: Occupational Therapy Problem: OT Chcf Goals Dates: Start: 04/20/24 Goal: Pt will be mod I with LB dressing Dates: Start: 04/20/24 Expected End: 05/18/24 Outcomes Date/Time User Outcome 05/12/24 1217 RICHIE Lucas Progressing Goal: Pt will be mod I with UB dressing Dates: Start: 04/20/24 Expected End: 05/18/24 Outcomes Date/Time User Outcome 05/12/247 RICHIE Lucas Progressing Goal: Pt will be S with bathing Dates: Start: 04/20/24 Expected End: 05/18/24 Outcomes Date/Time User Outcome 05/12/247 RICHIE Lucas Progressing Goal: Pt will be mod I with toileting including txfer Dates: Start: 04/20/24 Expected End: 05/18/24 Outcomes Date/Time User Outcome 05/12/24RICHIE Guerin Progressing Goal: Pt will perform tub txfer with LRAD with S. Dates: Start: 04/20/24 Expected End: 05/18/24 Outcomes Date/Time User Outcome 05/12/241216 RICHIE Lucas Progressing Goal: Pt will be mod I with snack/beverage retrieval at LRAD Dates: Start: 04/20/24 Expected End: 05/18/24 Description: Outcomes Date/Time User Outcome 05/12/24RICHIE Guerin Progressing Encounter Problems (Resolved) Template: Occupational Therapy Problem: OT Short Term Goals Dates: Start: 04/20/24 Resolved: 05/03/24 Goal: Pt will perform toileting with partial A (Resolved) Dates: Start: 04/20/24 Expected End: 04/27/24 Resolved: 05/03/24 Outcomes Date/Time User Outcome 05/03/24 Susan Gray OT Completed Goal: Pt will perform LB dressing with partial A (Resolved) Dates: Start: 04/20/24 Expected End: 04/27/24 Resolved: 05/03/24 Outcomes Date/Time User Outcome 05/03/24 Susan Gray OT Completed Goal: Pt will perform bathing with steadying A. (Resolved) Dates: Start: 04/20/24 Expected End: 04/27/24 Resolved: 05/03/24 Outcomes Date/Time User Outcome 05/03/24 Susan Gray OT Completed Goal: Pt will be able to utilize L UE as an independent stabilizer during grooming tasks (Resolved) Dates: Start: 04/20/24 Expected End: 04/27/24 Resolved: 05/03/24 Outcomes Date/Time User Outcome 05/03/24 Susan Gray OT Completed Goal: Pt will perform UB dressing with PETERSON, with carryover of tasha dressing technique (Resolved) Dates: Start: 04/20/24 Expected End: 04/27/24 Resolved: 05/03/24 Outcomes Date/Time User Outcome 05/03/24 1407 Albina Gray OT Completed Education Documentation ADL Training, taught by Joshua Tellez OT at 05/13/2024 2:29 PM. Learner: Patient Readiness: Acceptance Method: Explanation, Demonstration Response: Demonstrated Understanding, Verbalizes Understanding, Needs Reinforcement Body Mechanics, taught by Joshua Tellez OT at 05/13/2024 2:29 PM. Learner: Patient Readiness: Acceptance Method: Explanation, Demonstration Response: Demonstrated Understanding, Verbalizes Understanding, Needs Reinforcement Activity/Positioning, taught by Joshua Tellez OT at 05/13/2024 2:29 PM. Learner: Patient Readiness: Acceptance Method: Explanation, Demonstration Response: Demonstrated Understanding, Verbalizes Understanding, Needs Reinforcement Discharge Planning, taught by Joshua Tellez OT at 05/13/2024 2:29 PM. Learner: Patient Readiness: Acceptance Method: Explanation, Demonstration Response: Demonstrated Understanding, Verbalizes Understanding, Needs Reinforcement Education Comments No comments found. Start/Stop Time OT Time Calculation OT Start Time: 1230 OT Stop Time: 1400 OT Time Calculation (min): 90 min Therapy Minutes: Occupational Therapy OT Individual: 90 * Penelope Bob, RD - 05/13/2024 12:24 PM EST 05/13/2024 @ 12:24 PM EST Nutrition Follow Up Note Reason for RD Intervention: Assessment Type: Follow-up Anthropometrics: Height: 158 cm (62.21 ) Weight: 70.2 kg (154 lb 12.8 oz) Weight Method: Actual BMI (Calculated): 28.1 BMI Class: Overweight IBW (lbs): 110 Current Diet and Supplements: Dietary Orders (From admission, onward) Start Ordered 04/25/24 0812 Adult diet [facility]; Cardiac, Diabetic; 60 gm carb/Meal; Cardiac Diet effective now Question Answer Comment Location [facility] Diet Type (req) Cardiac Diet Type (req) Diabetic Diabetic 60 gm carb/Meal Diet Type (cardiac) Cardiac 04/25/24 0811 History of presenting illness: Patient is a 48 y.o. female with a history of Past Medical History: Diagnosis Date CVA (cerebral vascular accident) (CMS/HCC) DM (diabetes mellitus) (CMS/HCC) HTN (hypertension) History reviewed. No pertinent surgical history. admitted 04/19/2024 with No Principal Problem: There is no principal problem currently on the Problem List. Please update the Problem List and refresh.. Weight History: Wt Readings from Last 10 Encounters: 05/04/24 70.2 kg (154 lb 12.8 oz) Subjective Assessment: PO intake since last visit remains adequate- consuming 75-100% of most meals per clinical documentation clerk. POCs well controlled. Last BM 05/12. Nutrition-Related Lab Values: Results from last 7 days Lab Units 05/13/24 1103 05/13/24 0714 05/13/24 0552 SODIUM mmol/L -- -- 137 POTASSIUM mmol/L -- -- 3.9 CHLORIDE mmol/L -- -- 104 CO2 mmol/L -- -- 29 BUN mg/dL -- -- 13 CREATININE mg/dL -- -- 0.69 EGFR mL/min/1.73m2 -- -- 109 CALCIUM mg/dL -- -- 9.2 BILIRUBIN TOTAL mg/dL -- -- 0.5 ALK PHOS unit/L -- -- 70 ALT unit/L -- -- 26 AST unit/L -- -- 14 POCT GLUCOSE mg/dL 137* < > -- GLUCOSE mg/dL -- -- 111* WBC AUTO K/mcL -- -- 8.6 < > = values in this interval not displayed. Energy Needs: kcal, gm protein, mL fluid per day. Total Energy Estimated Needs: 6825-2586 kcal (20-25 kcal/kg actual weight), 70 g protein (1 g/kg actual weight), 3934-6889 mL (25-30 mL/kg actual weight) Height: 158 cm (62.21 ) Temp: 36.3 ??C (97.3 ??F) Food/Nutrition-Current Status: Intake Type: P.O. Appetite: Good Intake Amount (%): 75-100% Intake Assessment: Adequate Nutrition Focused Physical Findings: Overall Appearance: Unable to assess as pt in room with therapist with door closed Skin: No skin breakdown noted per wood tank erector Fluid Accumulation/Edema: Generalized (per clinical documentation clerk) Nutrition Diagnosis: Code Type: None Identified Status: Improvement Diagnosis: Altered Nutrition-Related Lab Values Etiology: Endocrine dysfunction Symptoms: POCs 92-280, A1C 12 Nutrition Interventions: Diet Order, Nutrition Education Continue with diet as ordered. Monitor adequacy of PO intake; consider offering snacks/supplements if pt consuming <65% of meals on follow up. Reviewed meal preferences with pt. Updated in [place] meal planning program/ discussed with diet office staff. Provided education regarding Low Sodium and Carbohydrate Controlled diet- handouts provided in slovenian. Please refer to education note for details of information provided. Follow weights, labs, I/O. Goals: Patient will consume greater than or equal to 75% meals., Monitor/control glucose levels, Maintain weight., Stooling appropriately., and Patient/family demonstrates understanding of diet education provided. Monitoring/Evaluation: Food Intake, Fluid/Beverage Intake, Weight, Diet Order, Food and Nutrition Knowledge/Skills Follow Up: Nutrition Priority Level: Low Please consult nutrition if needed sooner. RD remains available and will continue to follow. Signature: Penelope Bob RD * Carlotta Meyer PTA - 05/13/2024 11:56 AM EST [facility] Physical Therapy Treatment Note 05/13/2024 Patient: Amalia Ann : 1975 Age: 48 y.o. Gender: female Primary Language: slovenian Diagnosis: No Principal Problem: There is no principal problem currently on the Problem List. Please update the Problem List and refresh. Past Medical History: Diagnosis Date CVA (cerebral vascular accident) (CMS/HCC) DM (diabetes mellitus) (CMS/HCC) HTN (hypertension) History reviewed. No pertinent surgical history. Allergies: is allergic to lisinopril. Precautions: Medical Precautions: Fall Risk Safety Interventions: Call noriega within reach Swallow Precautions: Modified Diet RUE Weight Bearing Status: Full LUE Weight Bearing Status: Full, As Tolerated RLE Weight Bearing Status: Full LLE Weight Bearing Status: Full NURSING RECOMMENDATIONS Bed Mobility: Transfers: Ambulation: SUBJECTIVE Pt report: better General/Functional Assessments: Procedure/Treatment: Neuromuscular Reeducation: Balance/Neuromuscular Re-Education Neuromuscular Re-Education Time Entry: 60 Balance/Neuromuscular Re-Education Activity 1: w/c mbo with right extremities room to/from gym Sup 165' room to/from gym. xfer w/c to mat stand/pivot steadyign assist for left knee block. Sup bed mobcue sofr attention to LUE, LLE. supine using glide sheet AA hip/knee flex 3 x 20 reps, ABD/ADDs 2 x10 reps, left ankle DF stretch, LLE SAQs 3 x 10 reps, bridges 3 x 10 reps. sit to stand from mat steadying cues for foot placement and static standing cues for increased left knee ext/control x 1 mins, mini squats 2 x 10 reps assist for left knee into ext. static standing with right foot on 3 stepx 30 secs partial assist for LOB and left knee block. amb with LBQC steadying to partial assist multiple times 20-30' displaying decreased left foot clearance and decreased left knee control/extension in stance. up and down 4 steps with right railing partial/max A and assist for left knee block, LLE placement when descending steps. Education: Education Documentation Mobility Training, taught by Carlotta Meyer PTA at 05/13/2024 11:55 AM. Learner: Patient Readiness: Acceptance Method: Explanation, Demonstration Response: Verbalizes Understanding, Demonstrated Understanding, Needs Reinforcement Education Comments No comments found. ASSESSMENT PT Assessment PT Assessment Results: Decreased strength, Decreased range of motion, Impaired balance, Impaired gait Plan of Care Plan Treatment/Interventions: (As per IE) PT Plan: Skilled PT PT Frequency: 5-7 days per week PT Duration of Sessions: 60-90 min per session PT Treatments per day: 1-2 times per day Equipment Recommended: TBD Barriers to Discharge: home environment, medical condition PT - Evaluation Status: Complete Problems/Goals Goals: Encounter Problems Encounter Problems (Active) Template: Physical Therapy Problem: PT Chcf Goals Dates: Start: 04/20/24 Goal: mod I bed mobility Dates: Start: 04/20/24 Expected End: 05/11/24 Outcomes Date/Time User Outcome 05/10/24 1208 Elzbieta Garcia, PT Progressing Goal: mod I transfers with LAD Dates: Start: 04/20/24 Expected End: 05/11/24 Outcomes Date/Time User Outcome 05/10/24 1208 Elzbieta Garcia PT Progressing Goal: mod I wc mobility 150' Dates: Start: 04/20/24 Expected End: 05/11/24 Outcomes Date/Time User Outcome 05/10/24 1208 Elzbieta Garcia, PT Progressing Goal: up/dn 4 flights of stairs min A Dates: Start: 04/20/24 Expected End: 05/11/24 Outcomes Date/Time User Outcome 05/10/24 1208 Elzbieta Garcia, PT Progressing Problem: PT Short Term Goals Dates: Start: 04/20/24 Goal: Pt will perform bed mobility min A Dates: Start: 04/20/24 Expected End: 04/27/24 Outcomes Date/Time User Outcome 05/10/24 1208 Elzbieta Garcia PT Progressing Goal: Pt will transfer with min A Dates: Start: 04/20/24 Expected End: 04/27/24 Outcomes Date/Time User Outcome 05/10/24 1208 Elzbieta Garcia, PT Progressing Goal: Pt will ambulate 25' with LAD mod A Dates: Start: 04/20/24 Expected End: 04/27/24 Outcomes Date/Time User Outcome 05/10/24 1208 Elzbieta Garcia PT Progressing Goal: Assess stairs as appropriate (Resolved) Dates: Start: 04/20/24 Expected End: 04/27/24 Resolved: 05/06/24 Outcomes Date/Time User Outcome 05/06/24 1038 Elzbieta Garcia PT Completed Goal: Supervision wc mobility and mgmt 150' (Resolved) Dates: Start: 04/20/24 Expected End: 04/27/24 Resolved: 05/06/24 Description: Outcomes Date/Time User Outcome 05/06/24 1038 Elzbieta Garcia, PT Completed Encounter Problems (Resolved) There are no resolved problems. Session Start/Stop Time: 829 929 Therapy Minutes Physical Therapy PT Individual: 60 * Leah Philippe NP - 05/13/2024 11:02 AM EST Images from the original note were not included. VEE PROGRESS NOTE Date: 05/13/2024 Author: Leah Philippe NP Patient ID: Amalia Ann is a 48 y.o. female : 1975 MR#: [id number] SUBJECTIVE Denies increased weakness Not using pain meds eating and drinking well she denies any bowel or bladder issues She is sleeping well She denies any headaches dizziness or visual disturbances Allergies: Lisinopril Current Medications: amLODIPine, 5 mg, oral, Daily aspirin, 81 mg, oral, Daily atorvastatin, 80 mg, oral, Nightly clopidogreL, 75 mg, oral, Daily enoxaparin, 40 mg, subcutaneous, q24h KATIE glipiZIDE, 5 mg, oral, q AM AC insulin lispro, 2-12 Units, subcutaneous, TID AC metFORMIN, 500 mg, oral, BID with meals PRN medications: acetaminophen, aluminum-magnesium hydroxide-simethicone, dextrose 50%, dextrose 50%, dextrose, dextrose, glucagon injection, hydrALAZINE, magnesium hydroxide, traMADoL Review of systems CONSTITUTIONAL: No fever. No chills. Malaise, fatigue CARDIOVASC: No CP, palpitations, lower extremity edema. RESP: No SOB, pain with respiration, hemoptysis, orthopnea. NO RDS, cough, URI symptoms GI: Normal appetite. No N/VT, diarrhea. No pain, bloating, Melena hematachezia : No hematuria, dysuria, frequency, urgency, nocturia. MUSCULOSKELETAL: No arthralgias or myalgias. INTEGUMENTARY: No bruising, lymphangitis, wounds NEUROLOGIC: No neck pain, Back pain, baseline weakness currently OBJECTIVE Vitals: 05/12/24 0900 05/12/24 1545 05/13/24 0532 05/13/24 0735 BP: 138/76 135/78 132/76 (!) 165/82 BP Location: Right arm Right arm Right arm Patient Position: Lying Lying Lying Pulse: 67 72 73 65 Resp: Temp: 36.2 ??C (97.2 ??F) 36.9 ??C (98.4 ??F) 36.3 ??C (97.3 ??F) TempSrc: Oral Oral SpO2: 100% 97% 98% Weight: Height: Physical exam General: AWake alert and oriented HEENT: pupils are equal round and reactive. extraocular movements are grossly intact lungs clear to auscultation, no wheezing or crackles noted heart regular rate and rhythm, no murmur or rubs abdomen soft nontender nondistended positive bowel sounds Musculoskeletal: No gross deformity to joints extremities without edema, erythema or calf tenderness neuro: Dysarthria improved left-sided weakness improved in comparison to prior eval skin: no rashes or lesions. psych: mood stable appearing, good eye contact. LABS HEMATOLOGY Lab Results Component Value Date WBC 8.6 05/13/2024 HGB 12.2 05/13/2024 HCT 37.0 05/13/2024 MCV 87.3 05/13/2024 PLT 378 05/13/2024 CHEMISTRY Lab Results Component Value Date GLUCOSE 127 (H) 05/13/2024 NA 137 05/13/2024 K 3.9 05/13/2024 CO2 29 05/13/2024 CL 104 05/13/2024 BUN 13 05/13/2024 CREATININE 0.69 05/13/2024 EGFR 109 05/13/2024 CALCIUM 9.2 05/13/2024 ANIONGAP 4 05/13/2024 Imaging: MR Brain wo Contrast Addendum: ADDENDUM: This report was discussed with Neto TAO on May 10, 2024 01:13:00 EST. This document has been electronically signed by: Yuly Cleveland on 05/10/2024 01:14:01 Narrative: MRI BRAIN WITHOUT CONTRAST COMPARISON: CT brain [...] dimensions are difficult to quantify but a pharmaceutical representative measurement on image 21 of series 3 is 1.2 x 0.5 cm. On images 22-23 of series 3 is an area of restricted diffusion in the midline and right paracentral region of the srinivas, also compatible with an acute infarct. This is also difficult to accurately measure but a pharmaceutical representative measurement on image 22 is approximately [...] collection. Clivus and craniocervical junction are unremarkable. Impression: 1. The patient has a reported history [...] by: Krishan Oden M.D. on 05/10/2024 01:06:25 ASSESSMENT & PLAN Anterior right pontine stroke Patient had a recent small right pontine CVA on 03/26 and is on aspirin and Plavix. Now with new anterior right pontine stroke Suspect secondary to intrinsic atherosclerotic disease likely compensation/benefits specialist now occluded CTA shows right V4 high-grade stenosis consistent with right hemispheric stroke per neurology. MRI of the brain showed acute subacute right pontine infarct without hemorrhagic transformation. Prior stroke workup with normal ESR CRP lupus anticoagulant RF SSA, SSB a and CA, beta-2 glycoprotein, anticardiolipin antibody, LP with 3 WBCs homocystine level of 6.9 LDL of 39 A1c was 12.4. Echocardiogram on 04/16 shows normal LV systolic function EF of 55 to 65% . Does not appear that shehad a bubble study done. EKG normal sinus rhythm septal infarct age undetermined per neurology recommendations were to continue aspirin Plavix and high dose statin Per rehab team Sequela -dysarthria, left facial droop left-sided weakness left upper stronger than the left lower. Continue ASA, Plavix and Statin Patient was reporting increased weakness left arm Repeat Brain CT on 05/07/2024 showing no acute hemorrhage and no other acute superimposed findings MRI of the brain showed motion artifact however did show reported chronic CVAs in the rt pontine area, age-indeterminate. No acute findings Increased weakness resolved-the time of her complaints on 05/06 followed by 05/07 patient had received oxycodone and tramadol the same day which may have contributed she was also experiencing back pain which may have contributed Back to baseline Patient is on a statin recommend checking CPK Restart Lovenox DVT prophylaxis patient is not watching observe focally CK is low not likely cause of weakness contiue statin 2. Diabetes mellitus Nicely controlled here A1c greater than 12. seen by endocrine. Continue Metformin Continue Glipizide POC 1 24-140s Hypertension Blood pressure in the 130s to 150s Increase to 10 mg daily Off lisinopril due to allergic reaction Continue to monitor closely 4. DVT prophylaxis Continue Lovenox Patient is not walking follow focally 5. Acute back pain radiating to right flank Resolved UA negative for bacteria did show blood patient on her menses H&H stable at 11 and 34 Symptoms resolved presumed musculoskeletal-likely added to her difficulties with physical therapy 05/06 and pain medicine use 6. FULL CODE PCP: MD Leah Villasenor MS, CFNP * MARIE Shrestha - 05/13/2024 9:40 AM EST Speech Language Pathology Speech Language Pathology Treatment Subjective LOGISTICIAN Start Time: 939 LOGISTICIAN Stop Time: 1009 LOGISTICIAN Time Calculation (min): 30 min Subjective: Cooperative and pleasant. president practicing urologist Ana #[id number] utilized. Objective General Visit Info General Family/Caregiver Present: No Treatment Cognitive Skills Therapeutic Interventions Cognitive Skills Direct Contact Time Entry: 30 Memory: Pt able to indp recall sequencing for getting oob during PT session. Pt tasked with recalling hand placement for wc transfer: Pt stating 'I need to use my R side more'. Tasked with recalling benefits of side-lying on affected side per OT note: Pt demonstrating increased difficulty recallingconversation. Pt stating the benefits are for when she is in bed. Per OT, to increase awareness of affected side. Plan to review in next session. Problem Solving: Functional time related word problems: 75% accuracy with visuals of problems, required min to mod A with breakdown of problem. Discussed plan for grocery shopping at home: Pt reportsdaughter will assist. Other Cognitive Skills Activity: Reviewed Pt's higher level attention HW task: min A for corrections. Assessment/Plan LOGISTICIAN Assessment Evaluation/Treatment Tolerance: Patient tolerated treatment well Plan Treatment/Interventions: Cognitive linguistic functioning LOGISTICIAN Plan: Skilled LOGISTICIAN LOGISTICIAN Frequency: 5-7 days per week LOGISTICIAN Duration of Sessions: 30-60 min per session LOGISTICIAN Treatments per day: 1 time per day LOGISTICIAN - Next Appointment: 05/14/24 Goals Encounter Problems Encounter Problems (Active) Template: Speech Therapy Problem: Cognitive/Linguistics Dates: Start: 04/20/24 Goal: Patient will participate in further assessment of cognitive-linguistic skills (Resolved) Dates: Start: 04/20/24 Expected End: 05/04/24 Resolved: 05/01/24 Description: Outcomes Date/Time User Outcome 05/01/24 0920 MARIE Shrestha Completed Goal: Patient will identify and utilize problem-solving intervention for task completion at 90% accuracy given min A Dates: Start: 04/20/24 Expected End: 05/17/24 Description: Outcomes Date/Time User Outcome 05/10/24 1141 MARIE Arroyo Not Progressing Goal: Patient will complete simple calculations for time/money management at 90% accuracy given Mauro Dates: Start: 04/20/24 Expected End: 05/17/24 Description: Outcomes Date/Time User Outcome 05/13/24 1136 MARIE Shrestha Not Progressing Goal: Pt will improve intelligibility at the sentence/conversational level to baseline given min A for speech strategies. (Resolved) Dates: Start: 04/21/24 Expected End: 04/28/24 Resolved: 04/26/24 Description: Outcomes Date/Time User Outcome 04/26/24 1127 MARIE Arroyo Completed Goal: Pt will improve delayed recall of functional information given min A for encoding and min A for retrieval - 90% accuracy Dates: Start: 04/22/24 Expected End: 05/17/24 Description: Outcomes Date/Time User Outcome 05/10/24 1139 MARIE Arroyo Progressing Goal: Pt will complete basic to mod level auditory/visual attention tasks - 90% accuracy given mod A. (Resolved) Dates: Start: 04/23/24 Expected End: 05/07/24 Resolved: 05/10/24 Description: Outcomes Date/Time User Outcome 05/10/24 1139 MARIE Arroyo Completed Goal: Pt will participate in sequencing/direction following tasks related to functional/ADL tasks given min A- 90% accuracy. Dates: Start: 04/24/24 Expected End: 05/17/24 Description: Outcomes Date/Time User Outcome 05/11/24 1302 MARIE Arroyo Not Progressing Goal: Pt will improve intelligibility at the paragraph/conversational level to baseline and independent w/ use of strategies Dates: Start: 04/26/24 Expected End: 05/15/24 Description: Outcomes Date/Time User Outcome 05/13/24 1136 MARIE Shrestha Not Progressing Goal: Pt will complete mod to higher level auditory/visual attention tasks - 90% accuracy given Mauro. Dates: Start: 05/10/24 Expected End: 05/17/24 Description: Outcomes Date/Time User Outcome 05/13/24 1136 MARIE Shrestha Progressing Encounter Problems (Resolved) Template: Speech Therapy Problem: Swallowing Dates: Start: 04/20/24 Resolved: 04/23/24 Goal: Patient will tolerate the least restrictive diet consistency to allow for safe consumption ofdaily meals (Resolved) Dates: Start: 04/20/24 Expected End: 05/04/24 Resolved: 04/23/24 Description: Outcomes Date/Time User Outcome 04/23/24 1253 MARIE Shrestha Completed Goal: Patient will demonstrate safe swallowing Intervention/techniques (Resolved) Dates: Start: 04/20/24 Expected End: 05/04/24 Resolved: 04/23/24 Description: Outcomes Date/Time User Outcome 04/23/24 1253 MARIE Shrestha Completed Education Documentation Cognition, taught by MARIE Shrestha at 05/13/2024 9:40 AM. Learner: Patient Readiness: Eager Method: Explanation, Trench Trimmer Fine Response: Verbalizes Understanding Education Comments No comments found. Associated attestation - Jen Duque SLP - 05/13/2024 4:42 PM EST I attest that I, Amber Duque M.S.,[facility]-LOGISTICIAN, was physically involved in the ongoing assessment, decision making, and interventions provided during today's patient care session. I have reviewed all documentation for today's 05/13/24, entered by Speech Therapy Fellow, Shayy Meyer, and further attest that it is an accurate clinical record of today's encounter, including accurate and appropriate charges. * Jean Carlos Montgomery DO - 05/13/2024 9:08 AM EST Images from the original note were not included. [facility] Daily Progress Note Patient name: Amalia Ann : 1975 SUBJECTIVE: Patient seen and examined at bedside today. Dysarthria noted. No acute events overnight. Denies headaches, dizziness, shortness of breath, chest pain, nausea, constipation, and pain. No new concerns today. Reports she slept well last night OBJECTIVE: Vitals: 05/12/24 0900 05/12/24 1545 05/13/24 0532 05/13/24 0735 BP: 138/76 135/78 132/76 (!) 165/82 BP Location: Right arm Right arm Right arm Patient Position: Lying Lying Lying Pulse: 67 72 73 65 Resp: 16 16 18 Temp: 36.2 ??C (97.2 ??F) 36.9 ??C (98.4 ??F) 36.3 ??C (97.3 ??F) TempSrc: Oral Oral SpO2: 100% 97% 98% Weight: Height: Physical Examination: General: Alert, in no acute cardiopulmonary distress. Mental Status: Oriented to person, place and time. Normal affect. Head: Normocephalic. Eyes: Pupils are equal, round. Extraocular muscles intact. Ear, Nose and Throat: Oropharynx clear, mucous membranes moist. Ears and nose without masses, lesions or deformities. Neck: Supple, Trachea midline. Respiratory: Symmetric chest wall expansion Cardiovascular: No pitting edema, peripheral pulses intact Gastrointestinal: Abdomen soft, non-tender, non-distended. Genitourinary: No costovertebral angle tenderness. Neurologic: left sided weakness, 3/5 lead qa analyst strength Skin: No rashes or lesions. No petechiae or purpura. No edema. Musculoskeletal: No gross deformities. CURRENT INPATIENT MEDICATIONS: Current Facility-Administered Medications: acetaminophen (TYLENOL) tablet 650 mg, 650 mg, oral, q6h PRN, BRAD Hicks, 650 mg at 354 aluminum-magnesium hydroxide-simethicone (MAALOX) 200-200-20 mg/5 mL suspension 30 mL, 30 mL, oral,q4h PRN, BRAD Hicks, 30 mL at 05/06/24 0354 amLODIPine (NORVASC) tablet 5 mg, 5 mg, oral, Daily, Leah Philippe NP, 5 mg at 808 aspirin EC tablet 81 mg, 81 mg, oral, Daily, BRAD Hicks, 81 mg at 05/13/24 0807 atorvastatin (LIPITOR) tablet 80 mg, 80 mg, oral, Nightly, BRAD Hicks, 80 mg at 05/12/24 210 clopidogreL (PLAVIX) tablet 75 mg, 75 mg, oral, Daily, BRAD Hicks, 75 mg at 05/13/24 0808 dextrose (D50W) 50% injection 12.5 g, 12.5 g, intravenous, q15 min PRN, BRAD Hicks dextrose (D50W) 50% injection 25 g, 25 g, intravenous, q15 min PRN, BRAD Hicks dextrose 15 gram/60 mL oral solution 15 g, 15 g, oral, q15 min PRN, BRAD Hicks dextrose 15 gram/60 mL oral solution 30 g, 30 g, oral, q15 min PRN, BRAD Hicks enoxaparin (LOVENOX) injection 40 mg, 40 mg, subcutaneous, q24h [facility], Leah Philippe NP, 40 mg at 05/13/24 0808 glipiZIDE (GLUCOTROL) tablet 5 mg, 5 mg, oral, q AM AC, BRAD Viramontes, 5 mg at 05/13/24 0808 Glucagon HCl (rDNA) injection 1 mg, 1 mg, intramuscular, Once PRN, BRAD Hicks hydrALAZINE (APRESOLINE) tablet 10 mg, 10 mg, oral, TID PRN, BRAD Viramontes insulin lispro injection 2-12 Units, 2-12 Units, subcutaneous, TID AC, Neida Bailey, DO, 2 Units at 05/11/24 0816 magnesium hydroxide (MILK OF MAGNESIA) 400 mg/5 mL suspension 30 mL, 30 mL, oral, Daily PRN, BRAD Rojas, 30 mL at 04/23/24 0529 metFORMIN (GLUCOPHAGE) tablet 500 mg, 500 mg, oral, BID with meals, Leah Philippe NP, 500 mg at 05/13/24 0808 traMADoL (ULTRAM) tablet 25 mg, 25 mg, oral, q6h PRN, Radhika Barber NP, 25 mg at 05/06/242031 LABS: Lab Results Component Value Date WBC 8.6 05/13/2024 RBC 4.20 05/13/2024 HGB 12.2 05/13/2024 HCT 37.0 05/13/2024 MCV 87.3 05/13/2024 MCHC 33.0 05/13/2024 RDW 12.7 05/13/2024 PLT 378 05/13/2024 MPV 11.7 (H) 05/13/2024 NRBC 0.0 05/13/2024 DIFF Lab Results Component Value Date LYMPHOPCT 10.4 05/06/2024 NEUTROABS 7.49 (H) 05/06/2024 LYMPHSABS 0.92 (L) 05/06/2024 MONOABS 0.33 05/06/2024 EOSABS 0.02 05/06/2024 BASOSABS 0.02 05/06/2024 IMMGRANABS 0.03 05/06/2024 RETIC No results found for: RETIC , RETICCTPCT Lab Results Component Value Date NA 137 05/13/2024 K 3.9 05/13/2024 CL 104 05/13/2024 CO2 29 05/13/2024 GLUCOSE 127 (H) 05/13/2024 BUN 13 05/13/2024 CREATININE 0.69 05/13/2024 CALCIUM 9.2 05/13/2024 PROT 6.3 05/13/2024 ALBUMIN 3.0 (L) 05/13/2024 BILITOT 0.5 05/13/2024 AST 14 05/13/2024 ALT 26 05/13/2024 ALKPHOS 70 05/13/2024 CKTOTAL 31 05/13/2024 EGFR 109 05/13/2024 IMPRESSION & PLAN: 1. New anterior right pontine stroke with left hemiparesis, left facial droop, dysarthria - PT/OT/speech -Plavix, aspirin, high-dose statin -Passed swallow evaluation 2. Uncontrolled hypertension - amlodipine 5mg daily, hydralazine prn 3. Diabetes mellitus type 2 poorly controlled - Lantus, Humalog sliding scale, diabetic diet, metformin 4. DVT prophylaxis -Lovenox * Brie Calvillo RN - 05/13/2024 2:50 AM EST Problem: Cognitive: Domínguez Job Fall Risk Goal: Mobility requiring assistance of person or device Outcome: Progressing Goal: Medications Outcome: Progressing Goal: Mental Status/LOC/Awareness Outcome: Progressing Goal: Toileting Needs Outcome: Progressing Goal: Communication/Sensory Outcome: Progressing Problem: Skin Integrity: Pressure Injury Actual or Risk of Goal: Will not develop new pressure injury Outcome: Progressing Goal: Risk for impaired skin integrity will decrease Outcome: Progressing Problem: Activity:Pressure Injury Actual or Risk of Goal: Mobility will improve Outcome: Progressing Goals: Clinical Goals for the Shift: To stay free from falls. Identify possible barriers to meeting goals/advancing plan of care: Pt working towards goals. Stability of the patient: Moderately Unstable - Medium risk of patient condition declining or worsening End of Shift Summary: Pt calm and appropriate overnight, denies pain, no signs of distress. Call noriega in reach, pt encouraged to use the call noriega for assist with any needs. Hourly and prn safety checks maintained. * Mika Amaya, PERSONAL CARER - 05/12/2024 4:15 PM EST [facility] Physical Therapy Treatment Note 05/12/2024 Patient: Amalia Ann : 1975 Age: 48 y.o. Gender: female Primary Language: Barbadian Diagnosis: No Principal Problem: There is no principal problem currently on the Problem List. Please update the Problem List and refresh. Past Medical History: Diagnosis Date CVA (cerebral vascular accident) (CMS/HCC) DM (diabetes mellitus) ([facility]/HCC) HTN (hypertension) History reviewed. No pertinent surgical history. Allergies: is allergic to lisinopril. Precautions: Medical Precautions: Fall Risk Safety Interventions: Call noriega within reach Swallow Precautions: Modified Diet RUE Weight Bearing Status: Full LUE Weight Bearing Status: Full, As Tolerated RLE Weight Bearing Status: Full LLE Weight Bearing Status: Full NURSING RECOMMENDATIONS Bed Mobility: Transfers: Ambulation: SUBJECTIVE Pt report: I am trying to get my knee in the middle. OBJECTIVE General Observation: Patient in bed when approached, ready to participate. General/Functional Assessments: Procedure/Treatment: Therapeutic Activities: Therapeutic Activity Time Entry: 90 Supine to sit with steadying assist for initial sitting balance. Stand pivot transfer to L to WC with assist to block L knee. WC propulsion with R extremities and intermittent assist for increased obstacle clearance. Seated L AROM knee extension, hip flexion. Unable to elicit L dorsiflexion. Multiple sit to stand transfers to R hemibar with partial assist for L knee control. Multiple bouts stepping forward/backward with RLE with partial assist to guard LLE control. Returned to room. Stand pivotWC to bed with bed rail and partial assist for LLE control. Sit to supine with CG. Bridging 2 x 10.Left with call noriega and alarm in place. ASSESSMENT Slowly progressing L knee control. Andie quickly when fatigued. Equipment: TBD Plan of Care Plan Treatment/Interventions: (As per IE) PT Plan: Skilled PT PT Frequency: 5-7 days per week PT Duration of Sessions: 60-90 min per session PT Treatments per day: 1-2 times per day Equipment Recommended: TBD Barriers to Discharge: home environment, medical condition PT - Evaluation Status: Complete Problems/Goals Goals: Encounter Problems Encounter Problems (Active) Template: Physical Therapy Problem: PT Chcf Goals Dates: Start: 04/20/24 Goal: mod I bed mobility Dates: Start: 04/20/24 Expected End: 05/11/24 Outcomes Date/Time User Outcome 05/10/24 1208 Elzbieta Garcia, PT Progressing Goal: mod I transfers with LAD Dates: Start: 04/20/24 Expected End: 05/11/24 Outcomes Date/Time User Outcome 05/10/24 1208 Elzbieta Garcia, PT Progressing Goal: mod I wc mobility 150' Dates: Start: 04/20/24 Expected End: 05/11/24 Outcomes Date/Time User Outcome 05/10/24 1208 Elzbieta Garcia, PT Progressing Goal: up/dn 4 flights of stairs min A Dates: Start: 04/20/24 Expected End: 05/11/24 Outcomes Date/Time User Outcome 05/10/24 1208 Elzbieta Garcia, PT Progressing Problem: PT Short Term Goals Dates: Start: 04/20/24 Goal: Pt will perform bed mobility min A Dates: Start: 04/20/24 Expected End: 04/27/24 Outcomes Date/Time User Outcome 05/10/24 1208 Elzbieta Garcia PT Progressing Goal: Pt will transfer with min A Dates: Start: 04/20/24 Expected End: 04/27/24 Outcomes Date/Time User Outcome 05/10/24 1208 Elzbieta Garcia, PT Progressing Goal: Pt will ambulate 25' with LAD mod A Dates: Start: 04/20/24 Expected End: 04/27/24 Outcomes Date/Time User Outcome 05/10/24 1208 Elzbieta Garcia, PT Progressing Goal: Assess stairs as appropriate (Resolved) Dates: Start: 04/20/24 Expected End: 04/27/24 Resolved: 05/06/24 Outcomes Date/Time User Outcome 05/06/24 1038 Elzbieta Garcia PT Completed Goal: Supervision wc mobility and mgmt 150' (Resolved) Dates: Start: 04/20/24 Expected End: 04/27/24 Resolved: 05/06/24 Description: Outcomes Date/Time User Outcome 05/06/24 1038 Elzbieta Garcia PT Completed Encounter Problems (Resolved) There are no resolved problems. Session Start/Stop Time: 1230 1400 Therapy Minutes Physical Therapy PT Individual: 90 * RICHIE Lucas - 05/12/2024 12:18 PM EST [facility] Occupational Therapy Treatment Note 05/12/24 Patient: Amalia Ann : 1975 Age: 48 y.o. Gender: female Diagnosis: No Principal Problem: There is no principal problem currently on the Problem List. Please update the Problem List and refresh. Primary Rehab (Etiologic) Diagnosis: Patient Active Problem List Diagnosis HTN (hypertension) DM (diabetes mellitus) (CMS/HCC) CVA (cerebral vascular accident) (CMS/HCC) PMH: Past Medical History: Diagnosis Date CVA (cerebral vascular accident) (CMS/HCC) DM (diabetes mellitus) (CMS/HCC) HTN (hypertension) PSH: History reviewed. No pertinent surgical history. Allergies: is allergic to lisinopril. Precautions: Precautions Medical Precautions: Fall Risk Safety Interventions: Call noriega within reach Swallow Precautions: Modified Diet RUE Weight Bearing Status: Full LUE Weight Bearing Status: Full, As Tolerated RLE Weight Bearing Status: Full LLE Weight Bearing Status: Full Vitals: BP: 138/76 Heart Rate: 67 Pain: Pain Assessment Pain Assessment: No/denies pain Subjective: I am tired today. Procedures/Interventions: Pt supine asleep at start of session. Video automatic embroidery machine tender used, pt amenable to therapy a this time inthe gym, requesting ADL tomorrow. Vitals taken in supine, see flowsheet. Pt completed bed mobility with touch A. Pt completed SPT throughout session with mod A, frequent v cues about technique and speed due to flopping in seat. Pt completed SPT to w/c from bed, and completed oral hygiene at sink with set-up. Pt participated in neuromuscular re-ed in gym, see below. Pt returned to room, completed SPT back to bed with mod A, touch A for bed mobility. Frequent yawning noted, patient reports frequent yawning after CVA. Call noriega and bed alarm in place at end of session. ADLs/IADLs Self Care/Home Management (ADLs) Time Entry: 15 ADL/ IADL Performed: Oral Hygiene Balance/Neuromuscular Re-Education Neuromuscular Re-Education Time Entry: 45 Balance/Neuromuscular Re-Education Activity 1: Pt partipcipated in seated B UE scapular mobilization SROM, 10 reps total. Rest break provided every 5 reps due to fatigue. Balance/Neuromuscular Re-Education Activity 2: Pt in sitting completed 3 sets of 5 reps of B box glider on lowest incline with no weight resistance. Pt reported fatigue in R shoulder due to compensatory motion. Balance/Neuromuscular Re-Education Activity 3: Pt participated in grasp and release of flat pillowcase on tabletop, focusing on mobilzation of L hand. Pt able to move all digits to scrunch pillowcase, tactile cues to reduce compensatory movement in R shoulder. Balance/Neuromuscular Re-Education Activity 4: Pt transferred w/c<> EOM via SPT with mod A, verbal cues for technqiue and hand placement. Pt transitioned to supine with partial A for positioning. Vibration applied to L median and posterior deltoild, bicep belly, tricep belly, pronator and supinator. Pt completed shoulder abduction with gravity reduced, no A provided. Pt completed pronation/supination of forearm, tactile cues provided to reduce shoulder compensation. Balance/Neuromuscular Re-Education Activity 5: Pt educated about the benefits of side-lying on affected side for proprioceptive benefits. Pt transitioned to side lying from supine on L side with min A, pillows places to support LEs. Scapula protracted, pt took side-lying rest break for 5 minutes atend of session. OT Assessment OT Assessment OT Assessment Results: Decreased ADL status, Decreased upper extremity range of motion, Decreased upper extremity strength, Decreased safe judgment during ADL, Decreased fine motor control, Decreasedfunctional mobility, Decreased gross motor control, Decreased trunk control for functional activities Prognosis: Good Evaluation/Treatment Tolerance: Patient tolerated treatment well, Patient limited by fatigue Comments: (Completed 90min session. Pt reporting decreased function in LUE and increased frustration with performance. Pt demoing improved ADL performance, however, would benefit from strength/ROM/FMactivities with L UE.) Medical Staff Made Aware: Yes OT Plan Plan Treatment Interventions: ADL retraining, Functional transfer training, UE strengthening/ROM, Endurance training, Equipment evaluation/education, Patient/family training, Fine motor coordination activities, Neuromuscular reeducation OT Plan: Skilled OT OT Frequency : 5-7 days per week OT Duration of Sessions: 60-90 min per session OT Treatments per day: 1 time per day OT - Evaluation Status: Complete Equipment Recommended: (TBD) Goals: Encounter Problems Encounter Problems (Active) Template: Occupational Therapy Problem: OT Membership Manager Goals Dates: Start: 04/20/24 Goal: Pt will be mod I with LB dressing Dates: Start: 04/20/24 Expected End: 05/18/24 Outcomes Date/Time User Outcome 05/12/24 1217 RICHIE Lucas Progressing Goal: Pt will be mod I with UB dressing Dates: Start: 04/20/24 Expected End: 05/18/24 Outcomes Date/Time User Outcome 05/12/24 1217 RICHIE Lucas Progressing Goal: Pt will be S with bathing Dates: Start: 04/20/24 Expected End: 05/18/24 Outcomes Date/Time User Outcome 05/12/241216 RICHIE Lucas Progressing Goal: Pt will be mod I with toileting including txfer Dates: Start: 04/20/24 Expected End: 05/18/24 Outcomes Date/Time User Outcome 05/12/24 1217 RICHIE Lucas Progressing Goal: Pt will perform tub txfer with LRAD with S. Dates: Start: 04/20/24 Expected End: 05/18/24 Outcomes Date/Time User Outcome 05/12/247 RICHIE Lucas Progressing Goal: Pt will be mod I with snack/beverage retrieval at LRAD Dates: Start: 04/20/24 Expected End: 05/18/24 Description: Outcomes Date/Time User Outcome 05/12/241216 RICHIE Lucas Progressing Encounter Problems (Resolved) Template: Occupational Therapy Problem: OT Short Term Goals Dates: Start: 04/20/24 Resolved: 05/03/24 Goal: Pt will perform toileting with partial A (Resolved) Dates: Start: 04/20/24 Expected End: 04/27/24 Resolved: 05/03/24 Outcomes Date/Time User Outcome 05/03/24 1407 Albina Gray OT Completed Goal: Pt will perform LB dressing with partial A (Resolved) Dates: Start: 04/20/24 Expected End: 04/27/24 Resolved: 05/03/24 Outcomes Date/Time User Outcome 05/03/24 1407 Albina Gray OT Completed Goal: Pt will perform bathing with steadying A. (Resolved) Dates: Start: 04/20/24 Expected End: 04/27/24 Resolved: 05/03/24 Outcomes Date/Time User Outcome 05/03/24 SaharaAngie Gray OT Completed Goal: Pt will be able to utilize L UE as an independent stabilizer during grooming tasks (Resolved) Dates: Start: 04/20/24 Expected End: 04/27/24 Resolved: 05/03/24 Outcomes Date/Time User Outcome 05/03/24 140Angie Albina Gray OT Completed Goal: Pt will perform UB dressing with PETERSON, with carryover of tasha dressing technique (Resolved) Dates: Start: 04/20/24 Expected End: 04/27/24 Resolved: 05/03/24 Outcomes Date/Time User Outcome 05/03/24 SaharaAngie Gray OT Completed Education Documentation ADL Training, taught by RICHIE Lucas at 05/12/2024 12:18 PM. Learner: Patient Readiness: Acceptance Method: Explanation, Demonstration, Trench Trimmer Fine Response: Verbalizes Understanding, Demonstrated Understanding, Needs Reinforcement Home Exercise Program, taught by RICHIE Lucas at 05/12/2024 12:18 PM. Learner: Patient Readiness: Acceptance Method: Explanation, Demonstration, Trench Trimmer Fine Response: Verbalizes Understanding, Demonstrated Understanding, Needs Reinforcement Body Mechanics, taught by RICHIE Lucas at 05/12/2024 12:18 PM. Learner: Patient Readiness: Acceptance Method: Explanation, Demonstration, Trench Trimmer Fine Response: Verbalizes Understanding, Demonstrated Understanding, Needs Reinforcement Education Comments No comments found. Start/Stop Time OT Time Calculation OT Start Time: 0900 OT Stop Time: 1000 OT Time Calculation (min): 60 min Therapy Minutes: Occupational Therapy OT Individual: 60 * Shayy Sanchez, MARIE - 05/12/2024 12:00 PM EST Speech Language Pathology Speech Language Pathology Treatment Subjective LOGISTICIAN Start Time: 1200 LOGISTICIAN Stop Time: 1230 LOGISTICIAN Time Calculation (min): 30 min Subjective: Cooperative and pleasant. president practicing urologist [facility] #[id number] utilized. Objective General Visit Info Treatment Cognitive Skills Therapeutic Interventions Cognitive Skills Direct Contact Time Entry: 30 Problem Solving: CT [place] math problems related to time level 1: 70% accuracy indp, increasing accuracy with min to mod A. Level 2: 50% accuracy indp, increasing accuracy with mod to max A. Other Cognitive Skills Activity: Reviewed scrambled sentences HW assignment from previous session: required min A for corrections. Pt tasked with completing additional HW task: completing target words/phrases with blanks. Assessment/Plan LOGISTICIAN Assessment Evaluation/Treatment Tolerance: Patient tolerated treatment well Plan Treatment/Interventions: Cognitive linguistic functioning LOGISTICIAN Plan: Skilled LOGISTICIAN LOGISTICIAN Frequency: 5-7 days per week LOGISTICIAN Duration of Sessions: 30-60 min per session LOGISTICIAN Treatments per day: 1 time per day LOGISTICIAN - Next Appointment: 05/13/24 Goals Encounter Problems Encounter Problems (Active) Template: Speech Therapy Problem: Cognitive/Linguistics Dates: Start: 04/20/24 Goal: Patient will participate in further assessment of cognitive-linguistic skills (Resolved) Dates: Start: 04/20/24 Expected End: 05/04/24 Resolved: 05/01/24 Description: Outcomes Date/Time User Outcome 05/01/24 0920 MARIE Shrestha Completed Goal: Patient will identify and utilize problem-solving intervention for task completion at 90% accuracy given min A Dates: Start: 04/20/24 Expected End: 05/17/24 Description: Outcomes Date/Time User Outcome 05/10/24 1141 MARIE Arroyo Not Progressing Goal: Patient will complete simple calculations for time/money management at 90% accuracy given Mauro Dates: Start: 04/20/24 Expected End: 05/17/24 Description: Outcomes Date/Time User Outcome 05/12/24 1405 MARIE Shrestha Not Progressing Goal: Pt will improve intelligibility at the sentence/conversational level to baseline given min A for speech strategies. (Resolved) Dates: Start: 04/21/24 Expected End: 04/28/24 Resolved: 04/26/24 Description: Outcomes Date/Time User Outcome 04/26/24 1127 MARIE Arroyo Completed Goal: Pt will improve delayed recall of functional information given min A for encoding and min A for retrieval - 90% accuracy Dates: Start: 04/22/24 Expected End: 05/17/24 Description: Outcomes Date/Time User Outcome 05/10/24 1139 MARIE Arroyo Progressing Goal: Pt will complete basic to mod level auditory/visual attention tasks - 90% accuracy given mod A. (Resolved) Dates: Start: 04/23/24 Expected End: 05/07/24 Resolved: 05/10/24 Description: Outcomes Date/Time User Outcome 05/10/24 1139 MARIE Arroyo Completed Goal: Pt will participate in sequencing/direction following tasks related to functional/ADL tasks given min A- 90% accuracy. Dates: Start: 04/24/24 Expected End: 05/17/24 Description: Outcomes Date/Time User Outcome 05/11/24 1302 MARIE Arroyo Not Progressing Goal: Pt will improve intelligibility at the paragraph/conversational level to baseline and independent w/ use of strategies Dates: Start: 04/26/24 Expected End: 05/15/24 Description: Outcomes Date/Time User Outcome 05/12/24 1405 MARIE Shrestha Progressing Goal: Pt will complete mod to higher level auditory/visual attention tasks - 90% accuracy given Mauro. Dates: Start: 05/10/24 Expected End: 05/17/24 Description: Outcomes Date/Time User Outcome 05/11/24 1302 MARIE Arroyo Not Progressing Encounter Problems (Resolved) Template: Speech Therapy Problem: Swallowing Dates: Start: 04/20/24 Resolved: 04/23/24 Goal: Patient will tolerate the least restrictive diet consistency to allow for safe consumption ofdaily meals (Resolved) Dates: Start: 04/20/24 Expected End: 05/04/24 Resolved: 04/23/24 Description: Outcomes Date/Time User Outcome 04/23/24 1253 MARIE Shrestha Completed Goal: Patient will demonstrate safe swallowing Intervention/techniques (Resolved) Dates: Start: 04/20/24 Expected End: 05/04/24 Resolved: 04/23/24 Description: Outcomes Date/Time User Outcome 04/23/24 1253 MARIE Shrestha Completed Education Documentation Cognition, taught by MARIE Shrestha at 05/12/2024 12:00 PM. Learner: Patient Readiness: Eager Method: Explanation, Trench Trimmer Fine, Demonstration Response: Verbalizes Understanding Education Comments No comments found. Associated attestation - Jen Duque SLP - 05/12/2024 9:34 PM EST I attest that I, Amber Duque M.S.,[facility]-LOGISTICIAN, was physically involved in the ongoing assessment, decision making, and interventions provided during today's patient care session. I have reviewed all documentation for today's 05/12/24, entered by Speech Therapy Fellow, Shayy Meyer, and further attest that it is an accurate clinical record of today's encounter, including accurate and appropriate charges. * Leah Philippe NP - 05/12/2024 10:30 AM EST Images from the original note were not included. VEE PROGRESS NOTE Date: 05/12/2024 Author: Leah Philippe NP Patient ID: Amalia Ann is a 48 y.o. female : 1975 MR#: [id number] SUBJECTIVE Patient denies any increased weakness Patient had some increased weakness around 05/06 05/07 Patient at the time had taken oxycodone and a dose of tramadol for pain Patient states she is eating and drinking well she denies any bowel or bladder issues She is sleeping well And remains off Lovenox despite negative head CT MRI for acute findings She denies any headaches dizziness or visual disturbances Allergies: Lisinopril Current Medications: amLODIPine, 5 mg, oral, Daily aspirin, 81 mg, oral, Daily atorvastatin, 80 mg, oral, Nightly clopidogreL, 75 mg, oral, Daily enoxaparin, 40 mg, subcutaneous, q24h KATIE glipiZIDE, 5 mg, oral, q AM AC insulin lispro, 2-12 Units, subcutaneous, TID AC metFORMIN, 500 mg, oral, BID with meals PRN medications: acetaminophen, aluminum-magnesium hydroxide-simethicone, dextrose 50%, dextrose 50%, dextrose, dextrose, glucagon injection, hydrALAZINE, magnesium hydroxide, traMADoL Review of systems CONSTITUTIONAL: No fever. No chills. Malaise, fatigue CARDIOVASC: No CP, palpitations, lower extremity edema. RESP: No SOB, pain with respiration, hemoptysis, orthopnea. NO RDS, cough, URI symptoms GI: Normal appetite. No N/VT, diarrhea. No pain, bloating, Melena hematachezia : No hematuria, dysuria, frequency, urgency, nocturia. MUSCULOSKELETAL: No arthralgias or myalgias. INTEGUMENTARY: No bruising, lymphangitis, wounds NEUROLOGIC: No neck pain, Back pain, baseline weakness currently OBJECTIVE Vitals: 05/11/24 0820 05/11/24 1556 05/12/24 0641 05/12/24 0827 BP: (!) 153/73 (!) 156/77 (!) 140/76 (!) 129/99 BP Location: Right arm Patient Position: Lying Pulse: 64 68 76 74 Resp: 16 17 Temp: 36.5 ??C (97.7 ??F) 36.4 ??C (97.5 ??F) 36.5 ??C (97.7 ??F) 36.7 ??C (98.1 ??F) TempSrc: Oral Oral SpO2: 99% 100% 97% 100% Weight: Height: Physical exam General: AWake alert and oriented HEENT: pupils are equal round and reactive. extraocular movements are grossly intact lungs clear to auscultation, no wheezing or crackles noted heart regular rate and rhythm, no murmur or rubs abdomen soft nontender nondistended positive bowel sounds Musculoskeletal: No gross deformity to joints extremities without edema, erythema or calf tenderness neuro: Dysarthria improved left-sided weakness improved in comparison to prior eval speech improved skin: no rashes or lesions. psych: mood stable appearing, good eye contact. LABS HEMATOLOGY Lab Results Component Value Date WBC 6.7 05/07/2024 HGB 11.2 (L) 05/07/2024 HCT 34.5 (L) 05/07/2024 MCV 89.4 05/07/2024 PLT 300 05/07/2024 CHEMISTRY Lab Results Component Value Date GLUCOSE 130 (H) 05/12/2024 NA 139 05/07/2024 K 4.0 05/07/2024 CO2 28 05/07/2024 CL 105 05/07/2024 BUN 13 05/07/2024 CREATININE 0.63 05/07/2024 EGFR 111 05/07/2024 CALCIUM 9.3 05/07/2024 ANIONGAP 6 05/07/2024 Imaging: MR Brain wo Contrast Addendum: ADDENDUM: This report was discussed with Neto TAO on May 10, 2024 01:13:00 EST. This document has been electronically signed by: Yuly Cleveland on 05/10/2024 01:14:01 Narrative: MRI BRAIN WITHOUT CONTRAST COMPARISON: CT brain [...] dimensions are difficult to quantify but a pharmaceutical representative measurement on image 21 of series 3 is 1.2 x 0.5 cm. On images 22-23 of series 3 is an area of restricted diffusion in the midline and right paracentral region of the srinivas, also compatible with an acute infarct. This is also difficult to accurately measure but a pharmaceutical representative measurement on image 22 is approximately [...] collection. Clivus and craniocervical junction are unremarkable. Impression: 1. The patient has a reported history [...] by: Krishan Oden M.D. on 05/10/2024 01:06:25 ASSESSMENT & PLAN Anterior right pontine stroke Patient had a recent small right pontine CVA on 03/26 and is on aspirin and Plavix. Now with new anterior right pontine stroke Suspect secondary to intrinsic atherosclerotic disease likely compensation/benefits specialist now occluded CTA shows right V4 high-grade stenosis consistent with right hemispheric stroke per neurology. MRI of the brain showed acute subacute right pontine infarct without hemorrhagic transformation. Prior stroke workup with normal ESR CRP lupus anticoagulant RF SSA, SSB a and CA, beta-2 glycoprotein, anticardiolipin antibody, LP with 3 WBCs homocystine level of 6.9 LDL of 39 A1c was 12.4. Echocardiogram on 04/16 shows normal LV systolic function EF of 55 to 65% . Does not appear that shehad a bubble study done. EKG normal sinus rhythm septal infarct age undetermined per neurology recommendations were to continue aspirin Plavix and high dose statin Per rehab team Sequela -dysarthria, left facial droop left-sided weakness left upper stronger than the left lower. Continue ASA, Plavix and Statin Patient was reporting increased weakness left arm Repeat Brain CT on 05/07/2024 showing no acute hemorrhage and no other acute superimposed findings Physiatry PA ordered an MRI of the brain showed motion artifact however did show reported chronic CVAs in the rt pontine area, age-indeterminate. No acute findings Increased weakness resolved-the time of her complaints on 05/06 followed by 05/07 patient had received oxycodone and tramadol at the same day which may have contributed Patient is on a statin recommend checking CPK May Restart Lovenox DVT prophylaxis patient is not watching and observe focally 2. Diabetes mellitus poorly controlled A1c greater than 12. seen by endocrine. Continue Metformin Continue Glipizide POC 1 24-2 04 fasting patient is running in the 130s Yesterday POC's in the 90s may need med adjustments will follow for now Hypertension Blood pressure in the 140s to 150s today continue Norvasc recommend increasing to 10 mg Off lisinopril due to allergic reaction Continue to monitor closely 4. DVT prophylaxis Continue Lovenox Patient is not walking follow-up focally 5. Acute back pain radiating to right flank Resolved UA negative for bacteria did show blood patient on her menses H&H stable at 11 and 34 Symptoms resolved presumed musculoskeletal-likely added to her difficulties with physical therapy 05/06 and pain medicine use 6. FULL CODE PCP: MD Leah Villasenor, MS, CFNP * Mika Amaya, PERSONAL CARER - 05/11/2024 4:22 PM EST [facility] Physical Therapy Treatment Note 05/11/2024 Patient: Amalia Ann : 1975 Age: 48 y.o. Gender: female Primary Language: Barbadian Diagnosis: No Principal Problem: There is no principal problem currently on the Problem List. Please update the Problem List and refresh. Past Medical History: Diagnosis Date CVA (cerebral vascular accident) ([facility]/HCC) DM (diabetes mellitus) ([facility]) HTN (hypertension) History reviewed. No pertinent surgical history. Allergies: is allergic to lisinopril. Precautions: Medical Precautions: Fall Risk Safety Interventions: Call noriega within reach Swallow Precautions: Modified Diet RUE Weight Bearing Status: Full LUE Weight Bearing Status: Full, As Tolerated RLE Weight Bearing Status: Full LLE Weight Bearing Status: Full NURSING RECOMMENDATIONS Bed Mobility: Transfers: Ambulation: SUBJECTIVE Pt report: I have been very tired since the second stroke. OBJECTIVE General Observation: Patient in bed with c/o fatigue but willing to participate as able. General/Functional Assessments: Procedure/Treatment: Therapeutic Activities: Therapeutic Activity Time Entry: 60 Barbadian video automatic embroidery machine tender used throughout session. Patient performed supine bilateral LE therex with LIME assist for LLE as needed. Performed hip/knee flexion/extension, hip abduction, SLR with assistto stabilize L knee, bridging, hip IR/ER, R dorsiflexion - 3 x 10 each. Attempted L dorsiflexion but unable to elicit. Rest breaks required after each set. Patient requested to remain in bed after session due to fatigue. ASSESSMENT Very fatigued after OT session but motivated to participate as able. Equipment: TBD Plan of Care Plan Treatment/Interventions: (As per IE) PT Plan: Skilled PT PT Frequency: 5-7 days per week PT Duration of Sessions: 60-90 min per session PT Treatments per day: 1-2 times per day Equipment Recommended: TBD Barriers to Discharge: home environment, medical condition PT - Evaluation Status: Complete Problems/Goals Goals: Encounter Problems Encounter Problems (Active) Template: Physical Therapy Problem: PT Chcf Goals Dates: Start: 04/20/24 Goal: mod I bed mobility Dates: Start: 04/20/24 Expected End: 05/11/24 Outcomes Date/Time User Outcome 05/10/24 120Leo Garcia PT Progressing Goal: mod I transfers with LAD Dates: Start: 04/20/24 Expected End: 05/11/24 Outcomes Date/Time User Outcome 05/10/24 1208 Elzbieta Garcia PT Progressing Goal: mod I wc mobility 150' Dates: Start: 04/20/24 Expected End: 05/11/24 Outcomes Date/Time User Outcome 05/10/24 120Leo Garcia PT Progressing Goal: up/dn 4 flights of stairs min A Dates: Start: 04/20/24 Expected End: 05/11/24 Outcomes Date/Time User Outcome 05/10/24 1208 Elzbieta Garcia PT Progressing Problem: PT Short Term Goals Dates: Start: 04/20/24 Goal: Pt will perform bed mobility min A Dates: Start: 04/20/24 Expected End: 04/27/24 Outcomes Date/Time User Outcome 05/10/24 120Leo Garcia PT Progressing Goal: Pt will transfer with min A Dates: Start: 04/20/24 Expected End: 04/27/24 Outcomes Date/Time User Outcome 05/10/24 1208 Elzbieta Garcia PT Progressing Goal: Pt will ambulate 25' with LAD mod A Dates: Start: 04/20/24 Expected End: 04/27/24 Outcomes Date/Time User Outcome 05/10/24 1208 Elzbieta Garcia PT Progressing Goal: Assess stairs as appropriate (Resolved) Dates: Start: 04/20/24 Expected End: 04/27/24 Resolved: 05/06/24 Outcomes Date/Time User Outcome 05/06/24 1038 Elzbieta Garcia PT Completed Goal: Supervision wc mobility and mgmt 150' (Resolved) Dates: Start: 04/20/24 Expected End: 04/27/24 Resolved: 05/06/24 Description: Outcomes Date/Time User Outcome 05/06/24 1038 Elzbieta Garcia, TAD Completed Encounter Problems (Resolved) There are no resolved problems. Session Start/Stop Time: 1030 1130 Therapy Minutes Physical Therapy PT Individual: 60 * Sherri Rendon, LOGISTICIAN - 05/11/2024 1:03 PM EST Speech Language Pathology Speech Language Pathology Treatment Subjective LOGISTICIAN Start Time: 1200 LOGISTICIAN Stop Time: 1250 LOGISTICIAN Time Calculation (min): 50 min Subjective: Pt was alert and sitting upright in bed for the session. Pt was pleasant and cooperative throughout the session. Objective General Visit Info General Family/Caregiver Present: No Treatment Speech and Language Speech Treatment (Individual) Time Entry: 15 Speech: Pt was able to engage in conversation w/ 85-100% inteligibility, only x2 repetitions neededthroughout the conversation Cognitive Skills Therapeutic Interventions Cognitive Skills Direct Contact Time Entry: 35 Problem Solving: Pt was able to answer questions related to money calculations w/ 90% accuracy indep. given repetitions, 100% given mod A for calculations Attention/Concentration: Pt was able to able to complete 2-step auditory instructions w/ writing w/50% accuracy indep. and 80% given repetitions and cues to slow down, 100% given mod A for organization Reasoning: Pt was able to answer questions related to medical safety w/ 100% accuracy given min A for extension of answers Other Cognitive Skills Activity: Pt was able to complete her HW w/ 84% accuracy indep. and reviewedHW w/ this verse writer Cognitive Skills Comments: Per pt's request, pt was tasked w/ unscrambling words and identifying words in letters for HW Assessment/Plan LOGISTICIAN Assessment LOGISTICIAN Assessment Results: Cognitive impairments Evaluation/Treatment Tolerance: Patient tolerated treatment well Plan Treatment/Interventions: Cognitive linguistic functioning LOGISTICIAN Plan: Skilled LOGISTICIAN LOGISTICIAN Frequency: 5-7 days per week LOGISTICIAN Duration of Sessions: 30-60 min per session LOGISTICIAN Treatments per day: 1 time per day LOGISTICIAN - Next Appointment: 05/12/24 Goals Encounter Problems Encounter Problems (Active) Template: Speech Therapy Problem: Cognitive/Linguistics Dates: Start: 04/20/24 Goal: Patient will participate in further assessment of cognitive-linguistic skills (Resolved) Dates: Start: 04/20/24 Expected End: 05/04/24 Resolved: 05/01/24 Description: Goal Type: STG, Performance Level: Independent Outcomes Date/Time User Outcome 05/01/24 0920 MARIE Shrestha Completed Goal: Patient will identify and utilize problem-solving intervention for task completion at 90% accuracy given min A Dates: Start: 04/20/24 Expected End: 05/17/24 Description: Goal Type: STG, Performance Level: Min assist Outcomes Date/Time User Outcome 05/10/24 1141 MARIE Arroyo Not Progressing Goal: Patient will complete simple calculations for time/money management at 90% accuracy given Mauro Dates: Start: 04/20/24 Expected End: 05/17/24 Description: Goal Type: STG, Performance Level: Min assist Outcomes Date/Time User Outcome 05/11/24 1302 MARIE Arroyo Progressing Goal: Pt will improve intelligibility at the sentence/conversational level to baseline given min A for speech strategies. (Resolved) Dates: Start: 04/21/24 Expected End: 04/28/24 Resolved: 04/26/24 Description: Outcomes Date/Time User Outcome 04/26/24 1127 MARIE Arroyo Completed Goal: Pt will improve delayed recall of functional information given min A for encoding and min A for retrieval - 90% accuracy Dates: Start: 04/22/24 Expected End: 05/17/24 Description: Outcomes Date/Time User Outcome 05/10/24 1139 MARIE Arroyo Progressing Goal: Pt will complete basic to mod level auditory/visual attention tasks - 90% accuracy given mod A. (Resolved) Dates: Start: 04/23/24 Expected End: 05/07/24 Resolved: 05/10/24 Description: Outcomes Date/Time User Outcome 05/10/24 113MARIE Boone Completed Goal: Pt will participate in sequencing/direction following tasks related to functional/ADL tasks given min A- 90% accuracy. Dates: Start: 04/24/24 Expected End: 05/17/24 Description: Outcomes Date/Time User Outcome 05/11/24 1302 MARIE Arroyo Not Progressing Goal: Pt will improve intelligibility at the paragraph/conversational level to baseline and independent w/ use of strategies Dates: Start: 04/26/24 Expected End: 05/15/24 Description: Outcomes Date/Time User Outcome 05/11/24 1302 MARIE Arroyo Progressing Goal: Pt will complete mod to higher level auditory/visual attention tasks - 90% accuracy given Mauro. Dates: Start: 05/10/24 Expected End: 05/17/24 Description: Outcomes Date/Time User Outcome 05/11/24 1302 MARIE Arroyo Not Progressing Encounter Problems (Resolved) Template: Speech Therapy Problem: Swallowing Dates: Start: 04/20/24 Resolved: 04/23/24 Goal: Patient will tolerate the least restrictive diet consistency to allow for safe consumption ofdaily meals (Resolved) Dates: Start: 04/20/24 Expected End: 05/04/24 Resolved: 04/23/24 Description: Outcomes Date/Time User Outcome 04/23/24 1253 MARIE Shrestha Completed Goal: Patient will demonstrate safe swallowing Intervention/techniques (Resolved) Dates: Start: 04/20/24 Expected End: 05/04/24 Resolved: 04/23/24 Description: Outcomes Date/Time User Outcome 04/23/24 1253 MARIE Shrestha Completed Education Documentation Speech/Language, taught by MARIE Arroyo at 05/11/2024 1:03 PM. Learner: Patient Readiness: Acceptance Method: Explanation Response: Verbalizes Understanding Cognition, taught by MARIE Arroyo at 05/11/2024 1:03 PM. Learner: Patient Readiness: Acceptance Method: Explanation Response: Verbalizes Understanding Education Comments No comments found. Associated attestation - Jen Duque SLP - 05/11/2024 5:06 PM EST I attest that I, Amber Duque M.S.,[facility]-LOGISTICIAN, was physically involved in the ongoing assessment, decision making, and interventions provided during today's patient care session. I have reviewed all documentation for today's 05/11/24, entered by Speech Therapy Fellow, Sherri Rendon, and further attest that it is an accurate clinical record of today's encounter, including accurate and appropriate charges. * RICHIE Lucas - 05/11/2024 12:29 PM EST [facility] Occupational Therapy Treatment Note 05/11/24 Patient: Amalia Ann : 1975 Age: 48 y.o. Gender: female Diagnosis: No Principal Problem: There is no principal problem currently on the Problem List. Please update the Problem List and refresh. Primary Rehab (Etiologic) Diagnosis: Patient Active Problem List Diagnosis HTN (hypertension) DM (diabetes mellitus) (CMS/HCC) CVA (cerebral vascular accident) (CMS/HCC) PMH: Past Medical History: Diagnosis Date CVA (cerebral vascular accident) (CMS/HCC) DM (diabetes mellitus) (CMS/HCC) HTN (hypertension) PSH: History reviewed. No pertinent surgical history. Allergies: is allergic to lisinopril. Precautions: Precautions Medical Precautions: Fall Risk Safety Interventions: Call noriega within reach Swallow Precautions: Modified Diet RUE Weight Bearing Status: Full LUE Weight Bearing Status: Full, As Tolerated RLE Weight Bearing Status: Full LLE Weight Bearing Status: Full Vitals: BP: (!) 144/73 Heart Rate: 66 Pain: Pain Assessment Pain Assessment: No/denies pain Subjective: I want to wear the clothes I'm wearing, they are clean. Procedures/Interventions: Pt semi supine at start of session, amenable to therapy. Trench Trimmer Fine used, see flow sheet. Vitals taken in semi supine, nursing made aware of BP. Pt completed bend mobility with min A and v cues to take a moment sitting EOB due to some dizziness. Dizziness resolved, pt complete SPT transfer EOB to w/c with mod A and locking L LE. V cues provided for speed, technique and hand placement. Pt completed oral hygiene and face washing sitting at sink with set-up and supervision. Pt declined toileting at this time. Pt wheeled to gym to participate in mass reps (4) of SPT chair<>w/c, mod A with L LE locked, v cues for hand placement without carryover. Pt participated in B SROM at table in w/c, educated about importance of scap mobilization. Pt participated in B supination and pronation, COTAsupported L elbow to isolate movement due to shoulder compensatory movement. Pt completed cone grasp activity, moving cone from L to R with L UE to cross midline. Rest break provided every 5th cone, 15 cones completed total. Pt educated about tub transfer bench and technique, pt completed practice run via SPT w/c<> bench with mod A and v cues for hand placement and use of grab bars. Pt returned to room, requested to eat in bed with elevated HOB. Pt completed SPT w/c to bed with mod A and locked L LE, and ate breakfast with set-up. Frequent education provided about hand placement and technique, pt able to verbalize and teach back but min carryover to physical demo. Bed alarm and call noriega in place at end of session. ADLs/IADLs Self Care/Home Management (ADLs) Time Entry: 15 Therapeutic Activity Therapeutic Activity Time Entry: 45 Therapeutic Activity 1: Shower transfer practice Therapeutic Activity 2: Mass reps SPT, x 4 Therapeutic Activity 3: Cone grasp, crossing midline Therapeutic Activity 4: Scap mobilization, SROM pronation/supination, scap protraction/retraction OT Assessment OT Assessment OT Assessment Results: Decreased ADL status, Decreased upper extremity range of motion, Decreased upper extremity strength, Decreased safe judgment during ADL, Visual deficit, Decreased fine motor control, Decreased functional mobility, Decreased gross motor control, Decreased trunk control for functional activities Prognosis: Good Evaluation/Treatment Tolerance: Patient tolerated treatment well Comments: (Completed 90min session. Pt reporting decreased function in LUE and increased frustration with performance. Pt demoing improved ADL performance, however, would benefit from strength/ROM/FMactivities with L UE.) Medical Staff Made Aware: Yes OT Plan Plan Treatment Interventions: ADL retraining, Functional transfer training, UE strengthening/ROM, Endurance training, Equipment evaluation/education, Patient/family training, Neuromuscular reeducation, Fine motor coordination activities OT Plan: Skilled OT OT Frequency : 5-7 days per week OT Duration of Sessions: 60-90 min per session OT Treatments per day: 1 time per day OT - Evaluation Status: Complete Equipment Recommended: (TBD) Goals: Encounter Problems Encounter Problems (Active) Template: Occupational Therapy Problem: OT Membership Manager Goals Dates: Start: 04/20/24 Goal: Pt will be mod I with LB dressing Dates: Start: 04/20/24 Expected End: 05/18/24 Outcomes Date/Time User Outcome 05/11/24RICHIE Corado Progressing Goal: Pt will be mod I with UB dressing Dates: Start: 04/20/24 Expected End: 05/18/24 Outcomes Date/Time User Outcome 05/11/2433 RICHIE Lucas Progressing Goal: Pt will be S with bathing Dates: Start: 04/20/24 Expected End: 05/18/24 Outcomes Date/Time User Outcome 05/11/24RICHIE Corado Progressing Goal: Pt will be mod I with toileting including txfer Dates: Start: 04/20/24 Expected End: 05/18/24 Outcomes Date/Time User Outcome 05/11/24832 RICHIE Lucas Progressing Goal: Pt will perform tub txfer with LRAD with S. Dates: Start: 04/20/24 Expected End: 05/18/24 Outcomes Date/Time User Outcome 05/11/24RICHIE Corado Progressing Goal: Pt will be mod I with snack/beverage retrieval at LRAD Dates: Start: 04/20/24 Expected End: 05/18/24 Description: Outcomes Date/Time User Outcome 05/11/24RICHIE Corado Encounter Problems (Resolved) Template: Occupational Therapy Problem: OT Short Term Goals Dates: Start: 04/20/24 Resolved: 05/03/24 Goal: Pt will perform toileting with partial A (Resolved) Dates: Start: 04/20/24 Expected End: 04/27/24 Resolved: 05/03/24 Outcomes Date/Time User Outcome 05/03/24 Susan Gray OT Completed Goal: Pt will perform LB dressing with partial A (Resolved) Dates: Start: 04/20/24 Expected End: 04/27/24 Resolved: 05/03/24 Outcomes Date/Time User Outcome 05/03/24 Susan Gray OT Completed Goal: Pt will perform bathing with steadying A. (Resolved) Dates: Start: 04/20/24 Expected End: 04/27/24 Resolved: 05/03/24 Outcomes Date/Time User Outcome 05/03/24 Susan Gray OT Completed Goal: Pt will be able to utilize L UE as an independent stabilizer during grooming tasks (Resolved) Dates: Start: 04/20/24 Expected End: 04/27/24 Resolved: 05/03/24 Outcomes Date/Time User Outcome 05/03/24 Susan Gray OT Completed Goal: Pt will perform UB dressing with PETERSON, with carryover of tasha dressing technique (Resolved) Dates: Start: 04/20/24 Expected End: 04/27/24 Resolved: 05/03/24 Outcomes Date/Time User Outcome 05/03/24 140Angie Gray OT Completed Education Documentation ADL Training, taught by RICHIE Lucas at 05/11/2024 8:34 AM. Learner: Patient Readiness: Acceptance Method: Trench Trimmer Fine, Explanation, Demonstration Response: Verbalizes Understanding, Demonstrated Understanding, Needs Reinforcement Home Exercise Program, taught by RICHIE Lucas at 05/11/2024 8:34 AM. Learner: Patient Readiness: Acceptance Method: Trench Trimmer Fine, Explanation, Demonstration Response: Verbalizes Understanding, Demonstrated Understanding, Needs Reinforcement Body Mechanics, taught by RICHIE Lucas at 05/11/2024 8:34 AM. Learner: Patient Readiness: Acceptance Method: Trench Trimmer Fine, Explanation, Demonstration Response: Verbalizes Understanding, Demonstrated Understanding, Needs Reinforcement Education Comments No comments found. Start/Stop Time OT Time Calculation OT Start Time: 0730 OT Stop Time: 0830 OT Time Calculation (min): 60 min Therapy Minutes: Occupational Therapy OT Individual: 60 * Leah Philippe NP - 05/11/2024 9:34 AM EST Images from the original note were not included. VEE PROGRESS NOTE Date: 05/11/2024 Author: Leah Philippe NP Patient ID: Amalia Ann is a 48 y.o. female : 1975 MR#: [id number] SUBJECTIVE Patient is awake and alert and oriented Reporting increased weakness to left arm/24 patient states her weakness has improved Patient states she is moving her bowels and bladder she denies any pain issues She denies any headaches dizziness or visual impairments Nursing states vital signs have been stable blood pressure 140s to 150s Allergies: Lisinopril Current Medications: amLODIPine, 5 mg, oral, Daily aspirin, 81 mg, oral, Daily atorvastatin, 80 mg, oral, Nightly clopidogreL, 75 mg, oral, Daily glipiZIDE, 5 mg, oral, q AM AC insulin lispro, 2-12 Units, subcutaneous, TID AC metFORMIN, 500 mg, oral, BID with meals PRN medications: acetaminophen, aluminum-magnesium hydroxide-simethicone, dextrose 50%, dextrose 50%, dextrose, dextrose, glucagon injection, hydrALAZINE, magnesium hydroxide, traMADoL OBJECTIVE Vitals: 05/10/24 1845 05/11/24 0547 05/11/24 0730 05/11/24 0820 BP: (!) 143/68 (!) 147/83 (!) 144/73 (!) 153/73 BP Location: Left arm Left arm Right arm Patient Position: Lying Lying Lying Pulse: 67 72 66 64 Resp: 17 18 Temp: 36.7 ??C (98.1 ??F) 36.7 ??C (98.1 ??F) 36.5 ??C (97.7 ??F) TempSrc: Oral Oral SpO2: 98% 96% 99% Weight: Height: Physical Exam Musculoskeletal: General: Tenderness present. General: AWake alert and oriented HEENT: pupils are equal round and reactive. extraocular movements are grossly intact lungs clear to auscultation, no wheezing or crackles noted heart regular rate and rhythm, no murmur or rubs abdomen soft nontender nondistended positive bowel sounds Musculoskeletal: No gross deformity to joints extremities without edema, erythema or calf tenderness neuro: Dysarthria improved left-sided weakness improved in comparison to prior eval speech improved skin: no rashes or lesions. psych: mood stable appearing, good eye contact. LABS HEMATOLOGY Lab Results Component Value Date WBC 6.7 05/07/2024 HGB 11.2 (L) 05/07/2024 HCT 34.5 (L) 05/07/2024 MCV 89.4 05/07/2024 PLT 300 05/07/2024 CHEMISTRY Lab Results Component Value Date GLUCOSE 168 (H) 05/11/2024 NA 139 05/07/2024 K 4.0 05/07/2024 CO2 28 05/07/2024 CL 105 05/07/2024 BUN 13 05/07/2024 CREATININE 0.63 05/07/2024 EGFR 111 05/07/2024 CALCIUM 9.3 05/07/2024 ANIONGAP 6 05/07/2024 Imaging: MR Brain wo Contrast Addendum: ADDENDUM: This report was discussed with Neto TAO on May 10, 2024 01:13:00 EST. This document has been electronically signed by: Yuly Cleveland on 05/10/2024 01:14:01 Narrative: MRI BRAIN WITHOUT CONTRAST COMPARISON: CT brain [...] dimensions are difficult to quantify but a pharmaceutical representative measurement on image 21 of series 3 is 1.2 x 0.5 cm. On images 22-23 of series 3 is an area of restricted diffusion in the midline and right paracentral region of the srinivas, also compatible with an acute infarct. This is also difficult to accurately measure but a pharmaceutical representative measurement on image 22 is approximately [...] collection. Clivus and craniocervical junction are unremarkable. Impression: 1. The patient has a reported history [...] by: Krishan Oden M.D. on 05/10/2024 01:06:25 ASSESSMENT & PLAN Anterior right pontine stroke Patient had a recent small right pontine CVA on 03/26 and is on aspirin and Plavix. Now with new anterior right pontine stroke Suspect secondary to intrinsic atherosclerotic disease likely compensation/benefits specialist now occluded CTA shows right V4 high-grade stenosis consistent with right hemispheric stroke per neurology. MRI of the brain showed acute subacute right pontine infarct without hemorrhagic transformation. Prior stroke workup with normal ESR CRP lupus anticoagulant RF SSA, SSB a and CA, beta-2 glycoprotein, anticardiolipin antibody, LP with 3 WBCs homocystine level of 6.9 LDL of 39 A1c was 12.4. Echocardiogram on 04/16 shows normal LV systolic function EF of 55 to 65% . Does not appear that shehad a bubble study done. EKG normal sinus rhythm septal infarct age undetermined per neurology recommendations were to continue aspirin Plavix and high dose statin Per rehab team Sequela -dysarthria, left facial droop left-sided weakness left upper stronger than the left lower. Continue ASA, Plavix and Statin Patient was reporting increased weakness left arm Repeat Brain CT on 05/07/2024 showing no acute hemorrhage and no other acute superimposed findings Physiatry PA ordered an MRI of the brain which showed motion artifact however did show reported chronic CVAs in the rt pontine area, age-indeterminate. Increased weakness resolved 2. Diabetes mellitus poorly controlled A1c greater than 12. seen by endocrine. Continue Metformin Continue Glipizide POC 1 24-2 04 fasting patient is running in the 130s Hypertension Blood pressure in the 140s to 150s today continue Norvasc recommend increasing to 10 mg Off lisinopril due to allergic reaction Continue to monitor closely 4. DVT prophylaxis Continue Lovenox -on hold 5. Acute back pain radiating to right flank Resolved UA negative for bacteria did show blood patient on her menses H&H stable at 11 and 34 Symptoms resolved presumed musculoskeletal 6. FULL CODE PCP: MD Leah Villasenor, MS, CFNP * Joshua Tellez, OT - 05/10/2024 12:30 PM EST [facility] Occupational Therapy Treatment Note 05/10/24 Patient: Amalia Ann : 1975 Age: 48 y.o. Gender: female Diagnosis: No Principal Problem: There is no principal problem currently on the Problem List. Please update the Problem List and refresh. Primary Rehab (Etiologic) Diagnosis: Patient Active Problem List Diagnosis HTN (hypertension) DM (diabetes mellitus) (CMS/HCC) CVA (cerebral vascular accident) (CMS/HCC) PMH: Past Medical History: Diagnosis Date CVA (cerebral vascular accident) (CMS/HCC) DM (diabetes mellitus) (CMS/HCC) HTN (hypertension) PSH: History reviewed. No pertinent surgical history. Allergies: is allergic to lisinopril. Precautions: Precautions Medical Precautions: Fall Risk Safety Interventions: Call noriega within reach, ID band on, Chair alarm RUE Weight Bearing Status: Full LUE Weight Bearing Status: Full, As Tolerated RLE Weight Bearing Status: Full LLE Weight Bearing Status: Full Pain: Pain Assessment Pain Assessment: No/denies pain Subjective: I have has the double vision all along. Procedures/Interventions: ADLs/IADLs Self Care/Home Management (ADLs) Time Entry: 15 Pt seated on toilet upon arrival. STS from toilet with R UE on grab bar steadying A. In stand partial A for balance and to hike pants over L hip. SPT with R UE on grab bar with partial A. Seated in w/c Pt washed B hands with S. Pt performed oral hygiene with L UE stabilizing toothbrush with gross grasp, placed by R UE. Pt brushed teeth with R UE with PETERSON. Balance/Neuromuscular Re-Education Neuromuscular Re-Education Time Entry: 75 Pt propelled self from room><gym with L leg rest donned, with S. SPT from w/c>mat partial for more than steadying with good pacing noted, no knee buckling. Sit>Supine S. Air cast applied to L UE to isolate L shoulder during AROM. Mass reps of AROM shoulder flexion to 90 with frequent rest breaks. Occasional min A to achieve 90. Mass reps of gravity eliminated shoulder abduction to 90,pt able to tolerate min resistance for AB/adduction. Mass reps of L elbow flexion/extension with min resistance. Supine>Sit EOB S. Seated EOB mass reps of wrist extension/flexion with use of vibration with stronger contraction noted with application, pt able to assume AROM without, however slower and not to end range. Rest breaks throughout. Pt tasked with removing suction cup items from table with L UE. Pt compensating with shoulder hiking due to lack of external rotation. Pt able to position hand over items, occasional assist for digitextension to grasp items. Pt able to pul all items from table with L UE. Pt transported across midline to place in bucket, limited digit extension available, thus pt utilized edge of bucket to drag items out, with occasional hand over hand to achieve digit extension. AROM L UE external rotation X6 reps. Pt educated on AAROM exercises including elbow flexion and shoulder flexion to 90. Pt able to return demo. SPT partial A due to posterior LOB. Once back in room, SPT partial A w/c>bed. Sit>supine S. L UE supported, bed alarm on, and call noriega in reach. OT Assessment OT Assessment OT Assessment Results: Decreased ADL status, Decreased upper extremity range of motion, Decreased upper extremity strength, Decreased endurance, Decreased safe judgment during ADL, Visual deficit, Decreased fine motor control, Decreased functional mobility, Decreased gross motor control, Decreased IADLs, Decreased trunk control for functional activities Prognosis: Good Evaluation/Treatment Tolerance: Patient tolerated treatment well Comments: Completed 90min session, pt motivated throughout. [place] automatic embroidery machine tender usedthroughout. Ongoing neuro re-ed to increased functional use of L UE. OT Plan Plan Treatment Interventions: ADL retraining, Functional transfer training, UE strengthening/ROM, Endurance training, Patient/family training, Equipment evaluation/education, Neuromuscular reeducation, Fine motor coordination activities OT Plan: Skilled OT OT Frequency : 5-7 days per week OT Duration of Sessions: 60-90 min per session OT Treatments per day: 1 time per day OT - Evaluation Status: Complete Equipment Recommended: (TBD) Goals: Encounter Problems Encounter Problems (Active) Template: Occupational Therapy Problem: OT Membership Manager Goals Dates: Start: 04/20/24 Goal: Pt will be mod I with LB dressing Dates: Start: 04/20/24 Expected End: 05/18/24 Goal: Pt will be mod I with UB dressing Dates: Start: 04/20/24 Expected End: 05/18/24 Goal: Pt will be S with bathing Dates: Start: 04/20/24 Expected End: 05/18/24 Goal: Pt will be mod I with toileting including txfer Dates: Start: 04/20/24 Expected End: 05/18/24 Goal: Pt will perform tub txfer with LRAD with S. Dates: Start: 04/20/24 Expected End: 05/18/24 Goal: Pt will be mod I with snack/beverage retrieval at LRAD Dates: Start: 04/20/24 Expected End: 05/18/24 Description: Encounter Problems (Resolved) Template: Occupational Therapy Problem: OT Short Term Goals Dates: Start: 04/20/24 Resolved: 05/03/24 Goal: Pt will perform toileting with partial A (Resolved) Dates: Start: 04/20/24 Expected End: 04/27/24 Resolved: 05/03/24 Outcomes Date/Time User Outcome 05/03/24 1407 Albina Gray OT Completed Goal: Pt will perform LB dressing with partial A (Resolved) Dates: Start: 04/20/24 Expected End: 04/27/24 Resolved: 05/03/24 Outcomes Date/Time User Outcome 05/03/24 140Angie Gray OT Completed Goal: Pt will perform bathing with steadying A. (Resolved) Dates: Start: 04/20/24 Expected End: 04/27/24 Resolved: 05/03/24 Outcomes Date/Time User Outcome 05/03/24 Susan Gray OT Completed Goal: Pt will be able to utilize L UE as an independent stabilizer during grooming tasks (Resolved) Dates: Start: 04/20/24 Expected End: 04/27/24 Resolved: 05/03/24 Outcomes Date/Time User Outcome 05/03/24 1407 Albina Gray OT Completed Goal: Pt will perform UB dressing with PETERSON, with carryover of tasha dressing technique (Resolved) Dates: Start: 04/20/24 Expected End: 04/27/24 Resolved: 05/03/24 Outcomes Date/Time User Outcome 05/03/24 1407 Albina Gray OT Completed Education Documentation No documentation found. Education Comments No comments found. Start/Stop Time OT Time Calculation OT Start Time: 1230 OT Stop Time: 1400 OT Time Calculation (min): 90 min Therapy Minutes: Occupational Therapy OT Individual: 90 * Sherri Rendon, LOGISTICIAN - 05/10/2024 11:43 AM EST Speech Language Pathology Speech Language Pathology Treatment Subjective LOGISTICIAN Start Time: 1000 LOGISTICIAN Stop Time: 1115 LOGISTICIAN Time Calculation (min): 75 min Subjective: Pt was alert and sitting upright in bed for the session. Pt was emotional about the holidays at the start of the session but was agreeable to session. [place]adian interpreters Gisella, #[id number],and Fabrizio, #[id number], was used for the session. Objective General Visit Info Treatment Speech and Language Speech Treatment (Individual) Time Entry: 20 Speech: Pt was able to describe pictures w/ 90-100% inteligibility given initial review of strategies. Pt reported that she feels like her speech has slowed down in the past few days and would liketo continue to target speech as a goal. Cognitive Skills Therapeutic Interventions Cognitive Skills Direct Contact Time Entry: 55 Memory: Pt tasked w/ recalling current list of medication given mod-max A for encoding w/ use of visual. Pt was able to recall 6/7 given 30-second and 1-min delay indep. and 7/7 given the initial letter. Pt was able to recall 7/7 given 2-min, 5-min, 8-min, 10-min delay, and 15-min delay. Problem Solving: Pt was able to answer level 2 and level [address] [place] w/ 90% accuracy indep. Attention/Concentration: Pt reported she attempted the deduction puzzle for HW but found it difficulty to complete. Pt was able to complete deduction puzzle w/ 50% accuracy given min-mod A and 100% given mod-max A for organization and use of congitive strategies for deduction and recall. Reasoning: Pt was able to problem-solve for charging her phone w/ 60% accuracy indep. and require mod A for appropriate solutions Other Cognitive Skills Activity: Pt tasked w/ abstract categorization task for HW Assessment/Plan LOGISTICIAN Assessment LOGISTICIAN Assessment Results: Cognitive impairments Evaluation/Treatment Tolerance: Patient tolerated treatment well Plan Treatment/Interventions: Cognitive linguistic functioning LOGISTICIAN Plan: Skilled LOGISTICIAN LOGISTICIAN Frequency: 5-7 days per week LOGISTICIAN Duration of Sessions: 30-60 min per session LOGISTICIAN Treatments per day: 1 time per day LOGISTICIAN - Next Appointment: 05/11/24 Goals Encounter Problems Encounter Problems (Active) Template: Speech Therapy Problem: Cognitive/Linguistics Dates: Start: 04/20/24 Goal: Patient will participate in further assessment of cognitive-linguistic skills (Resolved) Dates: Start: 04/20/24 Expected End: 05/04/24 Resolved: 05/01/24 Description: Goal Type: STG, Performance Level: Independent Outcomes Date/Time User Outcome 05/01/24 0920 MARIE Shrestha Completed Goal: Patient will identify and utilize problem-solving intervention for task completion at 90% accuracy given min A Dates: Start: 04/20/24 Expected End: 05/17/24 Description: Goal Type: STG, Performance Level: Min assist Outcomes Date/Time User Outcome 05/10/24 1141 MARIE Arroyo Not Progressing Goal: Patient will complete simple calculations for time/money management at 90% accuracy given Mauro Dates: Start: 04/20/24 Expected End: 05/11/24 Description: Goal Type: STG, Performance Level: Min assist Outcomes Date/Time User Outcome 05/10/24 1139 MARIE Arroyo Progressing Goal: Pt will improve intelligibility at the sentence/conversational level to baseline given min A for speech strategies. (Resolved) Dates: Start: 04/21/24 Expected End: 04/28/24 Resolved: 04/26/24 Description: Outcomes Date/Time User Outcome 04/26/24 1127 MARIE Arroyo Completed Goal: Pt will improve delayed recall of functional information given min A for encoding and min A for retrieval - 90% accuracy Dates: Start: 04/22/24 Expected End: 05/17/24 Description: Outcomes Date/Time User Outcome 05/10/24 1139 MARIE Arroyo Progressing Goal: Pt will complete basic to mod level auditory/visual attention tasks - 90% accuracy given mod A. (Resolved) Dates: Start: 04/23/24 Expected End: 05/07/24 Resolved: 05/10/24 Description: Outcomes Date/Time User Outcome 05/10/24 1139 MARIE Arroyo Completed Goal: Pt will participate in sequencing/direction following tasks related to functional/ADL tasks given min A- 90% accuracy. Dates: Start: 04/24/24 Expected End: 05/17/24 Description: Outcomes Date/Time User Outcome 05/04/24 1611 MARIE Arroyo Progressing Goal: Pt will improve intelligibility at the paragraph/conversational level to baseline and independent w/ use of strategies Dates: Start: 04/26/24 Expected End: 05/15/24 Description: Outcomes Date/Time User Outcome 05/10/24 1141 MARIE Arroyo Progressing Goal: Pt will complete mod to higher level auditory/visual attention tasks - 90% accuracy given Mauro. Dates: Start: 05/10/24 Expected End: 05/17/24 Description: Encounter Problems (Resolved) Template: Speech Therapy Problem: Swallowing Dates: Start: 04/20/24 Resolved: 04/23/24 Goal: Patient will tolerate the least restrictive diet consistency to allow for safe consumption ofdaily meals (Resolved) Dates: Start: 04/20/24 Expected End: 05/04/24 Resolved: 04/23/24 Description: Outcomes Date/Time User Outcome 04/23/24 1253 MARIE Shrestha Completed Goal: Patient will demonstrate safe swallowing Intervention/techniques (Resolved) Dates: Start: 04/20/24 Expected End: 05/04/24 Resolved: 04/23/24 Description: Outcomes Date/Time User Outcome 04/23/24 1253 MARIE Shrestha Completed Education Documentation Speech/Language, taught by MARIE Arroyo at 05/10/2024 11:42 AM. Learner: Patient Readiness: Acceptance Method: Explanation, Trench Trimmer Fine Response: Verbalizes Understanding Comment: Pt was provided education about speech and cognitive strategies Cognition, taught by MARIE Arroyo at 05/10/2024 11:42 AM. Learner: Patient Readiness: Acceptance Method: Explanation, Trench Trimmer Fine Response: Verbalizes Understanding Comment: Pt was provided education about speech and cognitive strategies Education Comments No comments found. Associated attestation - Elisha Haynes SLP - 05/10/2024 11:56 AM EST I attest that I, Elisha Bae M.A.,[facility]-LOGISTICIAN, was physically involved in the ongoing assessment, decision making, and interventions provided during today's patient care session. I have reviewed all documentation for today's 05/10/24, entered by Speech Therapy Fellow, Sherri Rendon , and further attest that it is an accurate clinical record of today's encounter, including accurate and appropriatecharges. * Elzbieta Garcia, PT - 05/10/2024 9:12 AM EST [facility] Physical Therapy Treatment Note 05/10/2024 Patient: Amalia Ann : 1975 Age: 48 y.o. Gender: female Primary Language: Barbadian Diagnosis: No Principal Problem: There is no principal problem currently on the Problem List. Please update the Problem List and refresh. Past Medical History: Diagnosis Date CVA (cerebral vascular accident) ([facility]/HCC) DM (diabetes mellitus) ([facility]) HTN (hypertension) History reviewed. No pertinent surgical history. Allergies: is allergic to lisinopril. Precautions: Medical Precautions: Fall Risk Safety Interventions: Call noriega within reach, ID band on, Chair alarm Swallow Precautions: Modified Diet (IDDS 6/2 (soft/bite sized solids/nectar thick liquids)) RUE Weight Bearing Status: Full LUE Weight Bearing Status: Full, As Tolerated RLE Weight Bearing Status: Full LLE Weight Bearing Status: Full NURSING RECOMMENDATIONS Bed Mobility: Transfers: Ambulation: SUBJECTIVE Pt report: I'm tired Pain:0/10 OBJECTIVE General Observation: Supine in bed agreeable to participating in therapy session. Vitals: BP: (!) 148/79 Heart Rate: 64 SpO2: 98 % General/Functional Assessments: Procedure/Treatment: Neuromuscular Reeducation: Balance/Neuromuscular Re-Education Neuromuscular Re-Education Time Entry: 90 Video automatic embroidery machine tender [id number] used for therapy session. Pt supine in bed agreeable to participating in therapy session. Therapist assisting pt in donning socks in bed. Pt transferring partial Ax1 to WC. Pt dep. Brought down to therapy gym in WC. Pt completed mass rep stand pivot transfers [id number]-[id number] x1, anterior LOB and acute buckling on LLE, with increased reps pt progressing to partial A x1. Pt trialing ambulation partial A for STS to LBQC, cues for step to pattern. Pt needing max-Afor ambulation d/t increased postural sway, poor gait pattern and LOB, with WC follow, pt ambulating x4ft max-A x1 and WC follow. Therapist updating VAHE Ogden, noting continued increased difficulty with ambulation. Pt completed x2 stands at tasha-bar, split stance standing with RLE on 3 inch step, on second attempt to get to 3 inch step pt catching RLE on step needing max-A for anterior LOB. Therapist noting pts LUE hanging, therapist donning giv ivy sling for LUE support. Pt ambulating x10ft at tasha-bar, dvylkyx-gvb-S x1 and WC follow, assistance with LLE swing and stance phases of gait, pt with buckling and hyperextension during gait trial, decreased stance time on LLE. Pt completed x4 stairs with R ascending rail, step to pattern ascending with RLE leading, descending step with LLE. Pt needing max-A x1 assistance with balance, foot placement and assisting in lifting. Pt with nota ble increased in fatigue. Pt completed stand pivot transfer max-A with posterior LOB and buckling of LLE onto mat table. Pt completed STS transfers giv ivy doffed to allow pt to use LUE to push up from mat table, pt unable to weight shift onto L side, increased buckling. Pt attempting WC mobility,partial-SUP back to room, for steering. Pt completed partial A stand pivot transfer back to bed. Therapist assessing vitals. Pt left supine in bed, call noriega in reach, bed alarm on, all needs met. Education: Education Documentation Mobility Training, taught by Elzbieta Garcia, PT at 05/10/2024 12:09 PM. Learner: Patient Readiness: Acceptance Method: Explanation, Demonstration Response: Verbalizes Understanding, Demonstrated Understanding Comment: dynamic gait and balance. Education Comments No comments found. ASSESSMENT Pt unable to safely ambulation with LBQC and WC follow. Pt needing anggixj-mhb-f x1 with WC follow x10ft at tasha-bar, max-A x1 on x4 stairs with R ascending rail. Equipment: TBD Plan of Care Plan Treatment/Interventions: (As per IE) PT Plan: Skilled PT PT Frequency: 5-7 days per week PT Duration of Sessions: 60-90 min per session PT Treatments per day: 1-2 times per day Equipment Recommended: TBD Barriers to Discharge: home environment, medical condition PT - Evaluation Status: Complete Problems/Goals Goals: Encounter Problems Encounter Problems (Active) Template: Physical Therapy Problem: PT Membership Manager Goals Dates: Start: 04/20/24 Goal: mod I bed mobility Dates: Start: 04/20/24 Expected End: 05/11/24 Outcomes Date/Time User Outcome 05/10/24 120Leo Garcia PT Progressing Goal: mod I transfers with LAD Dates: Start: 04/20/24 Expected End: 05/11/24 Outcomes Date/Time User Outcome 05/10/24 120Leo Garcia PT Progressing Goal: mod I wc mobility 150' Dates: Start: 04/20/24 Expected End: 05/11/24 Outcomes Date/Time User Outcome 05/10/24 120Leo Garcia, PT Progressing Goal: up/dn 4 flights of stairs min A Dates: Start: 04/20/24 Expected End: 05/11/24 Outcomes Date/Time User Outcome 05/10/24 120Leo Garcia, PT Progressing Problem: PT Short Term Goals Dates: Start: 04/20/24 Goal: Pt will perform bed mobility min A Dates: Start: 04/20/24 Expected End: 04/27/24 Outcomes Date/Time User Outcome 05/10/24 120Leo Garcia PT Progressing Goal: Pt will transfer with min A Dates: Start: 04/20/24 Expected End: 04/27/24 Outcomes Date/Time User Outcome 05/10/24 120Leo Garcia PT Progressing Goal: Pt will ambulate 25' with LAD mod A Dates: Start: 04/20/24 Expected End: 04/27/24 Outcomes Date/Time User Outcome 05/10/24 Ambar Garcia PT Progressing Goal: Assess stairs as appropriate (Resolved) Dates: Start: 04/20/24 Expected End: 04/27/24 Resolved: 05/06/24 Outcomes Date/Time User Outcome 05/06/24 1038 Elzbieta Garcia PT Completed Goal: Supervision wc mobility and mgmt 150' (Resolved) Dates: Start: 04/20/24 Expected End: 04/27/24 Resolved: 05/06/24 Description: Outcomes Date/Time User Outcome 05/06/24 1038 Elzbieta Garcia PT Completed Encounter Problems (Resolved) There are no resolved problems. Session Start/Stop Time: 829 1000 Therapy Minutes Physical Therapy PT Individual: 90 * Kaci Soto RN - 05/10/2024 8:45 AM EST MRI results from 05/[address] Reynoso via Pac sytem by MRI dept Marj. * Nixon Sutherland MD - 05/10/2024 8:25 AM EST Images from the original note were not included. [facility] Daily Progress Note Patient name: Amalia Ann : 1975 SUBJECTIVE: Patient seen and examined at bedside today. No acute events overnight. Denies headaches, dizziness,shortness of breath, chest pain, nausea, constipation, and pain. She underwent a MRI of the brain last night, detailed below. She continues to have a degression of her symptoms including LUE weakness, difficulty with speech and slight LLE weakness. Therapy reports that last week she was able to perform many functions with 1 assist / supervision, and she now requires partial to max assist and her transfers are significantly impaired. OBJECTIVE: Vitals: 05/09/24 0834 05/09/24 1248 05/09/24 1528 05/10/24 0405 BP: (!) 151/79 (!) 144/75 (!) 152/76 (!) 150/78 BP Location: Right arm;Upper Right arm;Upper Right arm Patient Position: Sitting Sitting Lying Pulse: 80 69 76 69 Resp: 16 16 16 16 Temp: 36.5 ??C (97.7 ??F) 36.7 ??C (98.1 ??F) 36.3 ??C (97.4 ??F) TempSrc: Temporal Oral SpO2: 99% 100% 100% 100% Weight: Height: Physical Examination: General: Alert, in no acute cardiopulmonary distress. Mental Status: Oriented to person, place and time. Normal affect. Head: Normocephalic. Eyes: Extraocular muscles grossly intact. Ear, Nose and Throat: Oropharynx clear, mucous membranes moist. Ears and nose without masses, lesions or deformities. Neck: Supple, Trachea midline. Respiratory: Clear to auscultation and percussion. No wheezing, rales or rhonchi. Cardiovascular: Heart sounds normal. No thrills. Regular rate and rhythm, no murmurs, rubs or gallops. Gastrointestinal: Abdomen soft, non-tender, non-distended. Normal bowel sounds. Neurologic: Cranial nerves II-XII grossly intact. Sensation intact bilaterally. + de souza Left. Unable to lift left arm for pronator drift test. Skin: No rashes or lesions. No petechiae or purpura. No edema. Musculoskeletal: No cyanosis or clubbing. No gross deformities. Normal range of motion. Strength 3+/5 left shoulder abduction, 3/5 left elbow flexion, 3+/5 left wrist extension, 1/5 left finger flexion. 1/5 left dorsiflexion/plantarflexion 3+/5 hip flexion and knee extension. CURRENT INPATIENT MEDICATIONS: Current Facility-Administered Medications: acetaminophen (TYLENOL) tablet 650 mg, 650 mg, oral, q6h PRN, BRAD Hicks, 650 mg at 354 aluminum-magnesium hydroxide-simethicone (MAALOX) 200-200-20 mg/5 mL suspension 30 mL, 30 mL, oral,q4h PRN, BRAD Hicks, 30 mL at 05/06/24 0354 amLODIPine (NORVASC) tablet 5 mg, 5 mg, oral, Daily, Leah Philippe NP, 5 mg at 0 aspirin EC tablet 81 mg, 81 mg, oral, Daily, BRAD Hicks, 81 mg at 05/10/24 0820 atorvastatin (LIPITOR) tablet 80 mg, 80 mg, oral, Nightly, BRAD Hicks, 80 mg at 05/09/242040 clopidogreL (PLAVIX) tablet 75 mg, 75 mg, oral, Daily, BRAD Hicks, 75 mg at 05/10/24 0820 dextrose (D50W) 50% injection 12.5 g, 12.5 g, intravenous, q15 min PRN, BRAD Hicks dextrose (D50W) 50% injection 25 g, 25 g, intravenous, q15 min PRN, BRAD Hicks dextrose 15 gram/60 mL oral solution 15 g, 15 g, oral, q15 min PRN, BRAD Hicks dextrose 15 gram/60 mL oral solution 30 g, 30 g, oral, q15 min PRN, BRAD Hicks glipiZIDE (GLUCOTROL) tablet 5 mg, 5 mg, oral, q AM AC, BRAD Viramontes, 5 mg at 05/10/24 0655 Glucagon HCl (rDNA) injection 1 mg, 1 mg, intramuscular, Once PRN, BRAD Hicks hydrALAZINE (APRESOLINE) tablet 10 mg, 10 mg, oral, TID PRN, BRAD Viramontes insulin lispro injection 2-12 Units, 2-12 Units, subcutaneous, TID AC, Neida Bailey DO, 4 Units at 05/09/24 0840 magnesium hydroxide (MILK OF MAGNESIA) 400 mg/5 mL suspension 30 mL, 30 mL, oral, Daily PRN, BRAD Rojas, 30 mL at 04/23/24 0529 metFORMIN (GLUCOPHAGE) tablet 500 mg, 500 mg, oral, BID with meals, Leah Philippe NP, 500 mg at 05/10/24 0820 traMADoL (ULTRAM) tablet 25 mg, 25 mg, oral, q6h PRN, Radhika Barber NP, 25 mg at 05/06/242031 LABS: Lab Results Component Value Date WBC 6.7 05/07/2024 RBC 3.90 05/07/2024 HGB 11.2 (L) 05/07/2024 HCT 34.5 (L) 05/07/2024 MCV 89.4 05/07/2024 MCHC 32.5 05/07/2024 RDW 12.7 05/07/2024 PLT 300 05/07/2024 MPV 12.1 (H) 05/07/2024 NRBC 0.0 05/07/2024 Lab Results Component Value Date LYMPHOPCT 10.4 05/06/2024 NEUTROABS 7.49 (H) 05/06/2024 LYMPHSABS 0.92 (L) 05/06/2024 MONOABS 0.33 05/06/2024 EOSABS 0.02 05/06/2024 BASOSABS 0.02 05/06/2024 IMMGRANABS 0.03 05/06/2024 Lab Results Component Value Date NA 139 05/07/2024 K 4.0 05/07/2024 CL 105 05/07/2024 CO2 28 05/07/2024 GLUCOSE 138 (H) 05/10/2024 BUN 13 05/07/2024 CREATININE 0.63 05/07/2024 CALCIUM 9.3 05/07/2024 PROT 6.3 04/20/2024 ALBUMIN 3.2 04/20/2024 BILITOT 0.6 04/20/2024 AST 27 04/20/2024 ALT 32 04/20/2024 ALKPHOS 89 04/20/2024 EGFR 111 05/07/2024 IMAGING: MRI brain w/o contrast 05/09/2024 1. The patient has a reported history [...] images. A follow-up exam can be considered. IMPRESSION & PLAN: #Impaired mobility and self care -secondary to CVA -continue PT, OT, LOGISTICIAN, and nursing care #Acute anterior right pontine stroke #Left hemiparesis #Dysarthria -Aspirin 81mg daily -Plavix 75mg daily -Atorvastatin 80mg nightly -CT head 05/07/24 There is subtle hypoattenuation in the rightward srinivas correlating with an infarctdemonstrated on the comparison MRI. No acute hemorrhage or other acute superimposed findings. -05/09 due to continued worsening weakness MRI brain ordered also reached out to Dr. Reynoso at [facility] neurosurgery to inform of changes in neurostatus. -MRI 05/09 --> areas of restricted diffusion within the srinivas, compatible with acute infarcts, though acute infarcts can have restricted diffusion for multiple weeks, and the exact age of these infarcts is therefore difficult to ascertain. - 05/10 Will have radiologist compare MRI brain 05/09 to [facility] MRI brain from 04/18/2024 #Dysphagia -IDDSI 6 diet with IDDSI 2 mildly thick liquids -continue LOGISTICIAN #Hypertension -Amlodipine 5mg daily started 04/28 -Lisinopril 10mg daily increased to 20mg daily on 04/25 --> discontinued 05/01 due to complaintsof itchiness to her throat #Diabetes mellitus type 2 -noncompliant with treatment prior to admission -continue diabetic education -will need glucometer and supplies on discharge -ISS -Lantus 22 units QHS decreased to 10 units QHS on 05/02 -Metformin 500mg BID started 04/28 -Glipizide 5mg daily started 05/03 #Bladder management -UA 05/06 negative for UTI #Bowel management -Colace and Senna discontinued on 05/01 due to loose stools -monitor #DVT prophylaxis: Lovenox 40mg daily discontinued 05/[address] head to be completed. Agree with BRAD Grant's note. The patient denies any new problems. Examination benign. Continue rehabilitation program. * Neto Luna RN - 05/10/2024 5:35 AM EST Patient went down for MRI on 05/09 at approximately 1530. At 0112 on 05/10 Radiology services called with a critical result of the Brain MRI. Contacted BRAD Montaño with the results. Guille reviewed the chart and relays, MRI head confirms with pontine stroke on CT of head . No new orders at this time Patient is getting DAPT and statin. * Chetna Link RN - 05/09/2024 2:00 PM EST 13:00 Patient rest in bed, HOB elevated 45 degrees, Speech therapist at bedside. 12:48 BP recheck: 144/75, apical pulse: 69/regular. Patient denied headache, dizziness, shortness of breath, or chest discomfort. [place] Interpreters utilized to obtain MRI screen. Mauricio #[id number] and Lenard # [id number] . Informed patient that MRI expected to be done this evening, no specific time provided yet, will update pt when info available. Instructed pt that her left earing will need to be removed before MRI. Educated pt to request assistance for toileting, to report pain, dizziness, shortness of breath to nursing staff right away. Neuro assessment performed with assistance of Manager Parking. Patient left arm weak, left hand grasp minimal pressure, pt denied numbness or tingling to extremities. + strong palpable pedal pulses bilaterally. Bed alarm on, call noriega in pts right hand reach. * MARIE Shrestha - 05/09/2024 1:03 PM EST Speech Language Pathology Speech Language Pathology Treatment Subjective LOGISTICIAN Start Time: 1303 LOGISTICIAN Stop Time: 1333 LOGISTICIAN Time Calculation (min): 30 min Subjective: Cooperative and pleasant. president practicing urologist Alejandro #[id number] utilized. Objective General Visit Info General Family/Caregiver Present: No Treatment Speech and Language Speech Treatment (Individual) Time Entry: 15 Speech: Pt tasked with describing various detailed pictures: set up for strategies. Per automatic embroidery machine tender, required x4 repetitions across 3 trials. Otherwise, Pt intelligible. Slow speech noted. Pt's volume WFL for conversation. Cognitive Skills Therapeutic Interventions Cognitive Skills Direct Contact Time Entry: 15 Problem Solving: Time related word problems: 40% accuracy indp, increasing to 60% accuracy given repetitions/mod A. Pt benefited from visuals of numbers. Other Cognitive Skills Activity: Pt tasked with completing mod level deduction puzzle for HW. Assessment/Plan LOGISTICIAN Assessment Evaluation/Treatment Tolerance: Patient tolerated treatment well Plan Treatment/Interventions: Cognitive linguistic functioning LOGISTICIAN Plan: Skilled LOGISTICIAN LOGISTICIAN Frequency: 5-7 days per week LOGISTICIAN Duration of Sessions: 30-60 min per session LOGISTICIAN Treatments per day: 1 time per day LOGISTICIAN - Next Appointment: 05/10/24 Goals Encounter Problems Encounter Problems (Active) Template: Speech Therapy Problem: Cognitive/Linguistics Dates: Start: 04/20/24 Goal: Patient will participate in further assessment of cognitive-linguistic skills (Resolved) Dates: Start: 04/20/24 Expected End: 05/04/24 Resolved: 05/01/24 Description: Outcomes Date/Time User Outcome 05/01/24 0920 MARIE Shrestha Completed Goal: Patient will identify and utilize problem-solving intervention for task completion at 90% accuracy given min A Dates: Start: 04/20/24 Expected End: 05/08/24 Description: Outcomes Date/Time User Outcome 05/03/24 1156 MARIE Arroyo Not Progressing Goal: Patient will complete simple calculations for time/money management at 90% accuracy given Mauro Dates: Start: 04/20/24 Expected End: 05/11/24 Description: Outcomes Date/Time User Outcome 05/09/24 1350 MARIE Shrestha Not Progressing Goal: Pt will improve intelligibility at the sentence/conversational level to baseline given min A for speech strategies. (Resolved) Dates: Start: 04/21/24 Expected End: 04/28/24 Resolved: 04/26/24 Description: Outcomes Date/Time User Outcome 04/26/24 1127 MARIE Arroyo Completed Goal: Pt will improve delayed recall of functional information given min A for encoding and min A for retrieval - 90% accuracy Dates: Start: 04/22/24 Expected End: 05/06/24 Description: Outcomes Date/Time User Outcome 05/07/24 1335 MARIE Shrestha Progressing Goal: Pt will complete basic to mod level auditory/visual attention tasks - 90% accuracy given mod A. Dates: Start: 04/23/24 Expected End: 05/07/24 Description: Outcomes Date/Time User Outcome 05/07/24 1335 MARIE Shrestha Progressing Goal: Pt will participate in sequencing/direction following tasks related to functional/ADL tasks given min A- 90% accuracy. Dates: Start: 04/24/24 Expected End: 05/08/24 Description: Outcomes Date/Time User Outcome 05/04/24 1611 MARIE Arroyo Progressing Goal: Pt will improve intelligibility at the paragraph/conversational level to baseline and independent w/ use of strategies Dates: Start: 04/26/24 Expected End: 05/08/24 Description: Outcomes Date/Time User Outcome 05/09/24 1350 MARIE Shrestha Progressing Encounter Problems (Resolved) Template: Speech Therapy Problem: Swallowing Dates: Start: 04/20/24 Resolved: 04/23/24 Goal: Patient will tolerate the least restrictive diet consistency to allow for safe consumption ofdaily meals (Resolved) Dates: Start: 04/20/24 Expected End: 05/04/24 Resolved: 04/23/24 Description: Outcomes Date/Time User Outcome 04/23/24 1253 MARIE Shrestha Completed Goal: Patient will demonstrate safe swallowing Intervention/techniques (Resolved) Dates: Start: 04/20/24 Expected End: 05/04/24 Resolved: 04/23/24 Description: Outcomes Date/Time User Outcome 04/23/24 1253 MARIE Shrestha Completed Education Documentation Speech/Language, taught by MARIE Shrestha at 05/09/2024 1:03 PM. Learner: Patient Readiness: Acceptance Method: Explanation, Trench Trimmer Fine Response: Verbalizes Understanding Education Comments No comments found. Associated attestation - Christianne Fritz SLP - 05/09/2024 1:53 PM EST I attest that I, Christianne Fritz M.S.,[facility]-LOGISTICIAN, was physically involved in the ongoing assessment, decision making, and interventions provided during today's patient care session. I have reviewed all documentation for today, 05/09/24 entered by Speech Therapy Fellow, Shayy Sanchez, and further attest that it is an accurate clinical record of today's encounter, including accurate and appropriatecharges * Elzbieta Garcia, PT - 05/09/2024 11:44 AM EST [facility] Physical Therapy Treatment Note 05/09/2024 Patient: Amalia Ann : 1975 Age: 48 y.o. Gender: female Primary Language: Barbadian Diagnosis: No Principal Problem: There is no principal problem currently on the Problem List. Please update the Problem List and refresh. Past Medical History: Diagnosis Date CVA (cerebral vascular accident) ([facility]/HCC) DM (diabetes mellitus) ([facility]) HTN (hypertension) History reviewed. No pertinent surgical history. Allergies: is allergic to lisinopril. Precautions: Medical Precautions: Fall Risk Safety Interventions: Call noriega within reach, ID band on, Chair alarm Swallow Precautions: Modified Diet (IDDS 6/2 (soft/bite sized solids/nectar thick liquids)) RUE Weight Bearing Status: Full LUE Weight Bearing Status: Full, As Tolerated RLE Weight Bearing Status: Full LLE Weight Bearing Status: Full NURSING RECOMMENDATIONS Bed Mobility: Transfers: Ambulation: SUBJECTIVE Pt report: My movement has been worse since Monday. Pain:0/10 OBJECTIVE General Observation: Supine in bed agreeable to participating in therapy session. Vitals: BP: (!) 140/71 Heart Rate: 69 SpO2: 99 % Procedure/Treatment: Neuromuscular Reeducation: Balance/Neuromuscular Re-Education Neuromuscular Re-Education Time Entry: 60 Patient in Bed agreeable to participating in therapy session. Video automatic embroidery machine tender [id number] used for therapy session, therapist assessing pts LE strength, strength decreased on LLE>RLE. Sensation intact, proprioception intact, pt noting increased difficulty to move LLE. Pt denied visual changes, lightheadedness, nausea, vomiting. Pt endorsing speech has been difficult since Monday and noticed increased difficulty with mobility LUE and LLE. Pt transferring from EOB to WC, partial A x1 poor weight shift and posterior LOB into WC. Pt noting increased difficulty with transfer. Pt dep. Brought down to therapy gym in WC. Pt completed STS to LBQC, pt trialed ambulation 2x10ft, pt needing royxtrr-oez-Q x1 for gait and WC follow, increased buckling on LLE, pt with poor weight shifting with ambulation, unable to complete step through gait pattern, difficulty safely completing step to pattern. Pt needing partial A -max-A for stand pivot transfer from WC to mat table, poor sequencing, weight shifting, pt noting increased difficulty. Therapist updating VAHE Ogden on mobility changes, pt notingchanges since Monday05/05/2024. Pt completed partial-A STS, posterior LOB. Melvi present for transfer, pt needing vuedprh-prk-G x1 for transfer with increased buckling on LLE for transfer to EOB, SUP bed mobility. Pt left supine in bed, call noriega in reach, bed alarm on, all needs met. Updated PCT Audra and RN Chetna updated on mobility status, partial A x1 stand pivot transfers with [place] LLE. Education: Education Documentation Mobility Training, taught by Elzbieta Garcia PT at 05/09/2024 11:53 AM. Learner: Patient Readiness: Acceptance Method: Explanation, Demonstration Response: Demonstrated Understanding, Verbalizes Understanding Comment: Balance, mobility deficits. Education Comments No comments found. ASSESSMENT Therapist updating Meliv COTTER, on changes with mobility status this date. Pt needing [id number] for ambulation and transfers, therapist deferring stairs at this time d/t balance deficits. Equipment: TBD Plan of Care Plan Treatment/Interventions: (As per IE) PT Plan: Skilled PT PT Frequency: 5-7 days per week PT Duration of Sessions: 60-90 min per session PT Treatments per day: 1-2 times per day Equipment Recommended: TBD Barriers to Discharge: home environment, medical condition PT - Evaluation Status: Complete Problems/Goals Goals: Encounter Problems Encounter Problems (Active) Template: Physical Therapy Problem: PT Membership Manager Goals Dates: Start: 04/20/24 Goal: mod I bed mobility Dates: Start: 04/20/24 Expected End: 05/11/24 Outcomes Date/Time User Outcome 05/06/24 1038 Elzbieta Garcia PT Progressing Goal: mod I transfers with LAD Dates: Start: 04/20/24 Expected End: 05/11/24 Outcomes Date/Time User Outcome 05/06/24 1038 Elzbieta Garcia PT Progressing Goal: mod I wc mobility 150' Dates: Start: 04/20/24 Expected End: 05/11/24 Outcomes Date/Time User Outcome 05/06/24 1038 Elzbieta Garcia PT Progressing Goal: up/dn 4 flights of stairs min A Dates: Start: 04/20/24 Expected End: 05/11/24 Outcomes Date/Time User Outcome 05/06/24 1038 Elzbieta Garcia PT Progressing Problem: PT Short Term Goals Dates: Start: 04/20/24 Goal: Pt will perform bed mobility min A Dates: Start: 04/20/24 Expected End: 04/27/24 Outcomes Date/Time User Outcome 05/06/24 1038 Elzbieta aGrcia PT Progressing Goal: Pt will transfer with min A Dates: Start: 04/20/24 Expected End: 04/27/24 Outcomes Date/Time User Outcome 05/06/24 1038 Elzbieta Garcia PT Progressing Goal: Pt will ambulate 25' with LAD mod A Dates: Start: 04/20/24 Expected End: 04/27/24 Outcomes Date/Time User Outcome 05/06/24 1038 Elzbieta Garcia PT Progressing Goal: Assess stairs as appropriate (Resolved) Dates: Start: 04/20/24 Expected End: 04/27/24 Resolved: 05/06/24 Outcomes Date/Time User Outcome 05/06/24 1038 Elzbieta Garcia PT Completed Goal: Supervision wc mobility and mgmt 150' (Resolved) Dates: Start: 04/20/24 Expected End: 04/27/24 Resolved: 05/06/24 Description: Outcomes Date/Time User Outcome 05/06/24 1038 Elzbieta Garcia PT Completed Encounter Problems (Resolved) There are no resolved problems. Session Start/Stop Time: 845 0145 Therapy Minutes Physical Therapy PT Individual: 60 * BRAD Jensen - 05/09/2024 10:28 AM EST Images from the original note were not included. [facility] Daily Progress Note Patient name: Amalia Ann : 1975 SUBJECTIVE: Patient seen and examined at bedside today. No acute events overnight. Denies headaches, dizziness,shortness of breath, chest pain, nausea, constipation, and pain. Continues to report worsening leftupper extremity weakness., she also notes that she has had intermittent bouts of nausea since Monday. CT head performed on 05/07 revealed no new acute intracranial pathologies. Patient reports that her weakness is progressively worsening. She notes continued difficulty with speech stating that she needs to speak much slower. She also notes continued diplopia. She denies any headaches, chest pain,shortness of breath, cough. Physical Therapy confirms worsening weakness. Reporting decreased strength in the left upper extremity, impaired transfers and slight worsening of lower extremity strength. OBJECTIVE: Vitals: 05/08/24 0113 05/08/24 0800 05/08/24 1530 05/09/24 0631 BP: (!) 147/73 (!) 141/82 127/73 (!) 140/76 BP Location: Left arm Right arm Left arm Left arm Patient Position: Lying Sitting Sitting Lying Pulse: 72 67 67 77 Resp: 16 16 16 16 Temp: 36.8 ??C (98.2 ??F) 36.7 ??C (98.1 ??F) 36.8 ??C (98.2 ??F) 36.7 ??C (98.1 ??F) TempSrc: Oral Oral Oral Oral SpO2: 97% 99% 100% 99% Weight: Height: Physical Examination: General: Alert, in no acute cardiopulmonary distress. Mental Status: Oriented to person, place and time. Normal affect. Head: Normocephalic. Eyes: Extraocular muscles grossly intact. Ear, Nose and Throat: Oropharynx clear, mucous membranes moist. Ears and nose without masses, lesions or deformities. Neck: Supple, Trachea midline. Respiratory: Clear to auscultation and percussion. No wheezing, rales or rhonchi. Cardiovascular: Heart sounds normal. No thrills. Regular rate and rhythm, no murmurs, rubs or gallops. Gastrointestinal: Abdomen soft, non-tender, non-distended. Normal bowel sounds. Neurologic: Cranial nerves II-XII grossly intact. Sensation intact bilaterally. + de souza Left. Unable to lift left arm for pronator drift test. Skin: No rashes or lesions. No petechiae or purpura. No edema. Musculoskeletal: No cyanosis or clubbing. No gross deformities. Normal range of motion. Strength 3/5 left shoulder abduction, 3/5 left elbow flexion, 3/5 left wrist extension, 1/5 left finger flexion. 1/5 left dorsiflexion/plantarflexion 3/5 hip flexion and knee extension. CURRENT INPATIENT MEDICATIONS: Current Facility-Administered Medications: acetaminophen (TYLENOL) tablet 650 mg, 650 mg, oral, q6h PRN, BRAD Hicks, 650 mg at 354 aluminum-magnesium hydroxide-simethicone (MAALOX) 200-200-20 mg/5 mL suspension 30 mL, 30 mL, oral,q4h PRN, BRAD Hicks, 30 mL at 05/06/24 0354 amLODIPine (NORVASC) tablet 5 mg, 5 mg, oral, Daily, Leah Philippe, JASON, 5 mg at 842 aspirin EC tablet 81 mg, 81 mg, oral, Daily, BRAD Hicks, 81 mg at 05/09/24 0840 atorvastatin (LIPITOR) tablet 80 mg, 80 mg, oral, Nightly, BRAD Hicks, 80 mg at 05/08/24 2000 clopidogreL (PLAVIX) tablet 75 mg, 75 mg, oral, Daily, BRAD Hicks, 75 mg at 05/09/24 0842 dextrose (D50W) 50% injection 12.5 g, 12.5 g, intravenous, q15 min PRN, BRAD Hicks dextrose (D50W) 50% injection 25 g, 25 g, intravenous, q15 min PRN, BRAD Hicks dextrose 15 gram/60 mL oral solution 15 g, 15 g, oral, q15 min PRN, BRAD Hicks dextrose 15 gram/60 mL oral solution 30 g, 30 g, oral, q15 min PRN, BRAD Hicks glipiZIDE (GLUCOTROL) tablet 5 mg, 5 mg, oral, q AM AC, BRAD Viramontes, 5 mg at 05/09/24 0841 Glucagon HCl (rDNA) injection 1 mg, 1 mg, intramuscular, Once PRN, BRAD Hicks hydrALAZINE (APRESOLINE) tablet 10 mg, 10 mg, oral, TID PRN, BRAD Viramontes insulin lispro injection 2-12 Units, 2-12 Units, subcutaneous, TID AC, Neida Bailey DO, 4 Units at 05/09/24 0840 magnesium hydroxide (MILK OF MAGNESIA) 400 mg/5 mL suspension 30 mL, 30 mL, oral, Daily PRN, BRAD Rojas, 30 mL at 04/23/24 0529 metFORMIN (GLUCOPHAGE) tablet 500 mg, 500 mg, oral, BID with meals, Leah Philippe NP, 500 mg at 05/09/24 0840 traMADoL (ULTRAM) tablet 25 mg, 25 mg, oral, q6h PRN, Radhika Barber NP, 25 mg at 05/06/242031 LABS: Lab Results Component Value Date WBC 6.7 05/07/2024 RBC 3.90 05/07/2024 HGB 11.2 (L) 05/07/2024 HCT 34.5 (L) 05/07/2024 MCV 89.4 05/07/2024 MCHC 32.5 05/07/2024 RDW 12.7 05/07/2024 PLT 300 05/07/2024 MPV 12.1 (H) 05/07/2024 NRBC 0.0 05/07/2024 Lab Results Component Value Date LYMPHOPCT 10.4 05/06/2024 NEUTROABS 7.49 (H) 05/06/2024 LYMPHSABS 0.92 (L) 05/06/2024 MONOABS 0.33 05/06/2024 EOSABS 0.02 05/06/2024 BASOSABS 0.02 05/06/2024 IMMGRANABS 0.03 05/06/2024 Lab Results Component Value Date NA 139 05/07/2024 K 4.0 05/07/2024 CL 105 05/07/2024 CO2 28 05/07/2024 GLUCOSE 214 (H) 05/09/2024 BUN 13 05/07/2024 CREATININE 0.63 05/07/2024 CALCIUM 9.3 05/07/2024 PROT 6.3 04/20/2024 ALBUMIN 3.2 04/20/2024 BILITOT 0.6 04/20/2024 AST 27 04/20/2024 ALT 32 04/20/2024 ALKPHOS 89 04/20/2024 EGFR 111 05/07/2024 IMPRESSION & PLAN: #Impaired mobility and self care -secondary to CVA -continue PT, OT, LOGISTICIAN, and nursing care #Acute anterior right pontine stroke #Left hemiparesis #Dysarthria -Aspirin 81mg daily -Plavix 75mg daily -Atorvastatin 80mg nightly -CT head 05/07/24 There is subtle hypoattenuation in the rightward srinivas correlating with an infarctdemonstrated on the comparison MRI. No acute hemorrhage or other acute superimposed findings. -05/09 due to continued worsening weakness MRI brain ordered also reached out to Dr. Reynoso at [facility] neurosurgery to inform of changes in neurostatus. -MRI 05/09 --> Pending #Dysphagia -IDDSI 6 diet with IDDSI 2 mildly thick liquids -continue LOGISTICIAN #Hypertension -Amlodipine 5mg daily started 04/28 -Lisinopril 10mg daily increased to 20mg daily on 04/25 --> discontinued 05/01 due to complaintsof itchiness to her throat #Diabetes mellitus type 2 -noncompliant with treatment prior to admission -continue diabetic education -will need glucometer and supplies on discharge -ISS -Lantus 22 units QHS decreased to 10 units QHS on 05/02 -Metformin 500mg BID started 04/28 -Glipizide 5mg daily started 05/03 #Bladder management -UA 05/06 negative for UTI #Bowel management -Colace and Senna discontinued on 05/01 due to loose stools -monitor #DVT prophylaxis: Lovenox 40mg daily discontinued 05/[address] head to be completed. * Joshua Tellez OT - 05/09/2024 10:00 AM EST [facility] Occupational Therapy Treatment Note 05/09/24 Patient: Amalia Ann : 1975 Age: 48 y.o. Gender: female Diagnosis: No Principal Problem: There is no principal problem currently on the Problem List. Please update the Problem List and refresh. Primary Rehab (Etiologic) Diagnosis: Patient Active Problem List Diagnosis HTN (hypertension) DM (diabetes mellitus) ([facility]) CVA (cerebral vascular accident) ([facility]) PMH: Past Medical History: Diagnosis Date CVA (cerebral vascular accident) ([facility]) DM (diabetes mellitus) ([facility]) HTN (hypertension) PSH: History reviewed. No pertinent surgical history. Allergies: is allergic to lisinopril. Precautions: Precautions Medical Precautions: Fall Risk Safety Interventions: Call noriega within reach, ID band on, Chair alarm RUE Weight Bearing Status: Full LUE Weight Bearing Status: Full, As Tolerated RLE Weight Bearing Status: Full LLE Weight Bearing Status: Full Pain: None Subjective: My arm is weaker and I cannot use it like I was before. Procedures/Interventions: ADLs/IADLs Self Care/Home Management (ADLs) Time Entry: 45 Consulted with PA prior to session, as pt with orders for MRI due to worsening stroke symptoms, including UE/LE weakness, PA provided OK to see pt and perform light ADL and light Neuro re ed. Pt in supine upon arrival, agreeable to participation, requesting bathroom, Video [place]er><president practicing urologist utilized throughout (#[id number]). Pt endorsing increased weakness in L UE/LE and slower speech. SPT to L with partial A, with guarding on L knee, no buckling. Pt not incorporating L UE into txfer. Pt dep wheeled and positioned at toilet as walking unsafe at this time. SPT w/c><toilet partial A with grab bar use. Assist to hike pants up/down on L side due to decreased functional grasp in L hand. Pt was able to void and perform hygiene while seated. Once at sink pt performed oral hygiene with L UE as an independent stabilizer. Pt utilizing shoulder elevation to compensate for decreased strength in order to position L UE on sink. Pt performed UB sponge bathing with assist for bathing R UE. Pt donned Tank top with partial A for maneuvering over L shoulder and hiking down on L. Pt doffed/donned LB clothing with partial A. Steadying A in stand, guarding on L knee, and assist to hike on L side. Verbal cues for threading weaker LE first. Pt performed valerie and posterior hygiene in stand with steadying A, with L UE positioned on sink. At end of session pt set up for breakfast, with assist for opening items on tray, and for hand overhand to incorporate use of L UE to open dressing packet. Pt seated in w/c with chair alarm on and call noriega in reach. Balance/Neuromuscular Re-Education Neuromuscular Re-Education Time Entry: 30 Seated in w/c pt performed AROM 10 resp X3 of B shoulder elevation with good symmetry noted. With use of 1lb weighted bar for AAROM, pt performed 10 reps X3 of shoulder flexion to 90, with difficultymaintaining grasp on bar, and compensation with L shoulder hiking noted. B Elbow flexion requiring AAROM and stabilization at L wrist/elbow. Pt utilizing mirror for visual feedback. Pt tasked with grasping and transferring cones while grasping cones, pt with increased difficulty maintaining neutral wrist, assist to stabilize. Pt performed X mass reps, AAROM intermittent for elbow flexion/ext. OT Assessment OT Assessment OT Assessment Results: Decreased ADL status, Decreased upper extremity range of motion, Decreased upper extremity strength, Decreased endurance, Decreased safe judgment during ADL, Visual deficit, Decreased fine motor control, Decreased functional mobility, Decreased gross motor control, Decreased IADLs, Decreased trunk control for functional activities Prognosis: Good Evaluation/Treatment Tolerance: Patient tolerated treatment well Comments: (Completed 90min session. Pt reporting decreased function in LUE/LE pt scheduled for MRI.Increased assist with all ADLs due to decreased L UE strength/AROM. ROM and strength re-assessed, refer to flowsheet. Medical Staff Made Aware: Yes Rn and PA aware of decreased LUE strength OT Plan Plan Treatment Interventions: ADL retraining, Functional transfer training, UE strengthening/ROM, Endurance training, Patient/family training, Equipment evaluation/education, Neuromuscular reeducation, Fine motor coordination activities OT Plan: Skilled OT OT Frequency : 5-7 days per week OT Duration of Sessions: 60-90 min per session OT Treatments per day: 1 time per day OT - Evaluation Status: Complete Equipment Recommended: (TBD) Goals: Encounter Problems Encounter Problems (Active) Template: Occupational Therapy Problem: OT Membership Manager Goals Dates: Start: 04/20/24 Goal: Pt will be mod I with LB dressing Dates: Start: 04/20/24 Expected End: 05/18/24 Goal: Pt will be mod I with UB dressing Dates: Start: 04/20/24 Expected End: 05/18/24 Goal: Pt will be S with bathing Dates: Start: 04/20/24 Expected End: 05/18/24 Goal: Pt will be mod I with toileting including txfer Dates: Start: 04/20/24 Expected End: 05/18/24 Goal: Pt will perform tub txfer with LRAD with S. Dates: Start: 04/20/24 Expected End: 05/18/24 Goal: Pt will be mod I with snack/beverage retrieval at LRAD Dates: Start: 04/20/24 Expected End: 05/18/24 Description: Encounter Problems (Resolved) Template: Occupational Therapy Problem: OT Short Term Goals Dates: Start: 04/20/24 Resolved: 05/03/24 Goal: Pt will perform toileting with partial A (Resolved) Dates: Start: 04/20/24 Expected End: 04/27/24 Resolved: 05/03/24 Outcomes Date/Time User Outcome 05/03/24 Susan Gray OT Completed Goal: Pt will perform LB dressing with partial A (Resolved) Dates: Start: 04/20/24 Expected End: 04/27/24 Resolved: 05/03/24 Outcomes Date/Time User Outcome 05/03/24 Susan Gray OT Completed Goal: Pt will perform bathing with steadying A. (Resolved) Dates: Start: 04/20/24 Expected End: 04/27/24 Resolved: 05/03/24 Outcomes Date/Time User Outcome 05/03/24 Susan Gray OT Completed Goal: Pt will be able to utilize L UE as an independent stabilizer during grooming tasks (Resolved) Dates: Start: 04/20/24 Expected End: 04/27/24 Resolved: 05/03/24 Outcomes Date/Time User Outcome 05/03/24 Susan Gray OT Completed Goal: Pt will perform UB dressing with PETERSON, with carryover of tasha dressing technique (Resolved) Dates: Start: 04/20/24 Expected End: 04/27/24 Resolved: 05/03/24 Outcomes Date/Time User Outcome 05/03/24 Susan Gray OT Completed Education Documentation ADL Training, taught by Joshua Tellez OT at 05/09/2024 11:26 AM. Learner: Patient Readiness: Eager Method: Explanation, Demonstration Response: Verbalizes Understanding, Demonstrated Understanding Body Mechanics, taught by Joshua Tellez OT at 05/09/2024 11:26 AM. Learner: Patient Readiness: Eager Method: Explanation, Demonstration Response: Verbalizes Understanding, Demonstrated Understanding Fall Precautions, taught by Joshua Tellez OT at 05/09/2024 11:26 AM. Learner: Patient Readiness: Eager Method: Explanation, Demonstration Response: Verbalizes Understanding, Demonstrated Understanding Education Comments No comments found. Start/Stop Time OT Time Calculation OT Start Time: 1000 OT Stop Time: 1130 OT Time Calculation (min): 90 min Therapy Minutes: Occupational Therapy OT Individual: 90 * Radhika Barber NP - 05/09/2024 9:08 AM EST Images from the original note were not included. VEE PROGRESS NOTE Date: 05/09/2024 Author: Radhika Barber NP Patient ID: Amalia Ann is a 48 y.o. female : 1975 MR#: [id number] SUBJECTIVE Patient is awake and alert and oriented Reporting increased weakness to left arm Repeat Brain CT scan from 05/07/2024 showing no acute hemorrhage and no other acute superimposed findings Case discussed with Spinning Frame Tender PA MRI being ordered Spinning Frame Tender PA for further management and evaluations Case discussed with patient, nursing staff and attending physician Dr. Beltre Allergies: Lisinopril Current Medications: amLODIPine, 5 mg, oral, Daily aspirin, 81 mg, oral, Daily atorvastatin, 80 mg, oral, Nightly clopidogreL, 75 mg, oral, Daily glipiZIDE, 5 mg, oral, q AM AC insulin lispro, 2-12 Units, subcutaneous, TID AC metFORMIN, 500 mg, oral, BID with meals PRN medications: acetaminophen, aluminum-magnesium hydroxide-simethicone, dextrose 50%, dextrose 50%, dextrose, dextrose, glucagon injection, hydrALAZINE, magnesium hydroxide, traMADoL OBJECTIVE Vitals: 05/08/24 0113 05/08/24 0800 05/08/24 1530 05/09/24 0631 BP: (!) 147/73 (!) 141/82 127/73 (!) 140/76 BP Location: Left arm Right arm Left arm Left arm Patient Position: Lying Sitting Sitting Lying Pulse: 72 67 67 77 Resp: 16 16 16 16 Temp: 36.8 ??C (98.2 ??F) 36.7 ??C (98.1 ??F) 36.8 ??C (98.2 ??F) 36.7 ??C (98.1 ??F) TempSrc: Oral Oral Oral Oral SpO2: 97% 99% 100% 99% Weight: Height: Physical Exam General: conscious alert no acute distress HEENT: pupils are equal round and reactive. extraocular movements are grossly intact lungs clear to auscultation, no wheezing or crackles noted heart regular rate and rhythm, no murmur or rubs abdomen soft nontender nondistended positive bowel sounds Musculoskeletal: No gross deformity to joints extremities without edema, erythema or calf tenderness neuro: Dysarthria improved left-sided weakness improving mostly to the left upper extremity. skin: no rashes or lesions. psych: mood stable appearing, good eye contact. LABS HEMATOLOGY Lab Results Component Value Date WBC 6.7 05/07/2024 HGB 11.2 (L) 05/07/2024 HCT 34.5 (L) 05/07/2024 MCV 89.4 05/07/2024 PLT 300 05/07/2024 CHEMISTRY Lab Results Component Value Date GLUCOSE 214 (H) 05/09/2024 NA 139 05/07/2024 K 4.0 05/07/2024 CO2 28 05/07/2024 CL 105 05/07/2024 BUN 13 05/07/2024 CREATININE 0.63 05/07/2024 EGFR 111 05/07/2024 CALCIUM 9.3 05/07/2024 ANIONGAP 6 05/07/2024 Imaging: CT Head wo Contrast Narrative: Head CT dated 05/07/2024. HISTORY: Recent CVA, increased LUE weakness and functional decline & increased speech difficulty over past 48 hours, r/o bleed. COMPARISON: MRI 04/18/2024. TECHNIQUE: Noncontrast head CT with coronal and sagittal reformats. Dose length product: 717 mGy-cm. FINDINGS: Brain: No hemorrhage, edema, mass, or extra-axial fluid collection. There is very subtle hypoattenuation in the rightward srinivas which correlates with an area of restricted diffusion seen on the comparison MRI. Ventricles and sulci are age commensurate. Patchy hypoattenuation in the supratentorial white matter suggesting mild chronic microvascular ischemic disease. Atherosclerotic calcifications ofthe carotid siphons. Orbits: Normal. Sinuses/mastoids: Anterior clinoids are pneumatized and communicate with the sphenoids. Calvarium: Normal. Other: The skull base soft tissues are normal. Mild degenerative changes of the temporomandibular joints. Impression: There is subtle hypoattenuation in the rightward srinivas correlating with an infarct demonstrated on the comparison MRI. No acute hemorrhage or other acute superimposed findings. -------- FINAL REPORT -------- Dictated By: Cem Gunderson Dictated Date: 05/07/2024 12:47 ET Assigned Physician: Cem Gunderson Reviewed and Electronically Signed By: Cem Gunderson Signed Date: 05/07/2024 12:50 ET Workstation ID: [id number] Transcribed By: Self Edit Transcribed Date: 05/07/2024 12:47 ET ASSESSMENT & PLAN Anterior right pontine stroke Patient had a recent small right pontine CVA on 03/26 and is on aspirin and Plavix. Now with new anterior right pontine stroke Suspect secondary to intrinsic atherosclerotic disease likely compensation/benefits specialist now occluded CTA shows right V4 high-grade stenosis consistent with right hemispheric stroke per neurology. MRI of the brain showed acute subacute right pontine infarct without hemorrhagic transformation. Prior stroke workup with normal ESR CRP lupus anticoagulant RF SSA, SSB a and CA, beta-2 glycoprotein, anticardiolipin antibody, LP with 3 WBCs homocystine level of 6.9 LDL of 39 A1c was 12.4. Echocardiogram on 04/16 shows normal LV systolic function EF of 55 to 65% . Does not appear that shehad a bubble study done. EKG normal sinus rhythm septal infarct age undetermined per neurology recommendations were to continue aspirin Plavix and high dose statin Per rehab team Sequela -dysarthria, left facial droop left-sided weakness left upper stronger than the left lower. Continue ASA, Plavix and Statin Continue PT and OT Patient yesterday was reporting increased weakness left arm Repeat Brain CT on 05/07/2024 showing no acute hemorrhage and no other acute superimposed findings Case discussed with Spinning Frame Tender BRAD SALINAS ordering repeat Brain MRI for further evaluation and management 2. Diabetes mellitus poorly controlled A1c greater than 12. seen by endocrine. Continue Metformin Continue Glipizide POC this am is 214 3. Hypertension Blood pressure this am 140/76 Continue Norvasc Off lisinopril due to allergic reaction Continue to monitor closely 4. DVT prophylaxis Continue Lovenox 5. Acute back pain radiating to right flank Resolved UA showing no significant bacteria Noted to have large amount of blood Per nursing staff patient currently on her menses H&H stable at 11 and 34 Continue to closely monitor Continue as needed tramadol 6. FULL CODE I have discussed the above assessment and plan with my attending physician Dr. Beltre who agrees with the above assessment and plan * Radhika Barber NP - 05/08/2024 8:55 AM EST Images from the original note were not included. VEE PROGRESS NOTE Date: 05/08/2024 Author: Radhika Barber NP Patient ID: Amalia Ann is a 48 y.o. female : 1975 MR#: [id number] SUBJECTIVE Patient is awake and alert and oriented Reporting increased weakness to left arm Repeat Brain CT scan from 05/07/2024 showing no acute hemorrhage and no other acute superimposed findings Case discussed with patient, nursing staff and attending physician Dr. Beltre Allergies: Lisinopril Current Medications: amLODIPine, 5 mg, oral, Daily aspirin, 81 mg, oral, Daily atorvastatin, 80 mg, oral, Nightly clopidogreL, 75 mg, oral, Daily glipiZIDE, 5 mg, oral, q AM AC insulin lispro, 2-12 Units, subcutaneous, TID AC metFORMIN, 500 mg, oral, BID with meals PRN medications: acetaminophen, aluminum-magnesium hydroxide-simethicone, dextrose 50%, dextrose 50%, dextrose, dextrose, glucagon injection, hydrALAZINE, magnesium hydroxide, traMADoL OBJECTIVE Vitals: 05/07/24 1000 05/07/24 1345 05/07/24 1615 05/08/24 0113 BP: 125/73 (!) 144/79 (!) 141/72 (!) 147/73 BP Location: Left arm Patient Position: Lying Pulse: 66 66 67 72 Resp: 16 16 Temp: 36.7 ??C (98 ??F) 36.8 ??C (98.2 ??F) TempSrc: Oral SpO2: 98% 97% Weight: Height: Physical Exam General: conscious alert no acute distress HEENT: pupils are equal round and reactive. extraocular movements are grossly intact lungs clear to auscultation, no wheezing or crackles noted heart regular rate and rhythm, no murmur or rubs abdomen soft nontender nondistended positive bowel sounds Musculoskeletal: No gross deformity to joints extremities without edema, erythema or calf tenderness neuro: Dysarthria improved left-sided weakness improving mostly to the left upper extremity. skin: no rashes or lesions. psych: mood stable appearing, good eye contact. LABS HEMATOLOGY Lab Results Component Value Date WBC 6.7 05/07/2024 HGB 11.2 (L) 05/07/2024 HCT 34.5 (L) 05/07/2024 MCV 89.4 05/07/2024 PLT 300 05/07/2024 CHEMISTRY Lab Results Component Value Date GLUCOSE 156 (H) 05/08/2024 NA 139 05/07/2024 K 4.0 05/07/2024 CO2 28 05/07/2024 CL 105 05/07/2024 BUN 13 05/07/2024 CREATININE 0.63 05/07/2024 EGFR 111 05/07/2024 CALCIUM 9.3 05/07/2024 ANIONGAP 6 05/07/2024 Imaging: CT Head wo Contrast Narrative: Head CT dated 05/07/2024. HISTORY: Recent CVA, increased LUE weakness and functional decline & increased speech difficulty over past 48 hours, r/o bleed. COMPARISON: MRI 04/18/2024. TECHNIQUE: Noncontrast head CT with coronal and sagittal reformats. Dose length product: 717 mGy-cm. FINDINGS: Brain: No hemorrhage, edema, mass, or extra-axial fluid collection. There is very subtle hypoattenuation in the rightward srinivas which correlates with an area of restricted diffusion seen on the comparison MRI. Ventricles and sulci are age commensurate. Patchy hypoattenuation in the supratentorial white matter suggesting mild chronic microvascular ischemic disease. Atherosclerotic calcifications ofthe carotid siphons. Orbits: Normal. Sinuses/mastoids: Anterior clinoids are pneumatized and communicate with the sphenoids. Calvarium: Normal. Other: The skull base soft tissues are normal. Mild degenerative changes of the temporomandibular joints. Impression: There is subtle hypoattenuation in the rightward srinivas correlating with an infarct demonstrated on the comparison MRI. No acute hemorrhage or other acute superimposed findings. -------- FINAL REPORT -------- Dictated By: Cem Gundersno Dictated Date: 05/07/2024 12:47 ET Assigned Physician: Cem Gunderson Reviewed and Electronically Signed By: Cem Gunderson Signed Date: 05/07/2024 12:50 ET Workstation ID: [id number] Transcribed By: Self Edit Transcribed Date: 05/07/2024 12:47 ET ASSESSMENT & PLAN Anterior right pontine stroke Patient had a recent small right pontine CVA on 03/26 and is on aspirin and Plavix. Now with new anterior right pontine stroke Suspect secondary to intrinsic atherosclerotic disease likely compensation/benefits specialist now occluded CTA shows right V4 high-grade stenosis consistent with right hemispheric stroke per neurology. MRI of the brain showed acute subacute right pontine infarct without hemorrhagic transformation. Prior stroke workup with normal ESR CRP lupus anticoagulant RF SSA, SSB a and CA, beta-2 glycoprotein, anticardiolipin antibody, LP with 3 WBCs homocystine level of 6.9 LDL of 39 A1c was 12.4. Echocardiogram on 04/16 shows normal LV systolic function EF of 55 to 65% . Does not appear that shehad a bubble study done. EKG normal sinus rhythm septal infarct age undetermined per neurology recommendations were to continue aspirin Plavix and high dose statin Per rehab team Sequela -dysarthria, left facial droop left-sided weakness left upper stronger than the left lower. Continue ASA, Plavix and Statin Continue PT and OT Patient yesterday was reporting increased weakness left arm Repeat Brain CT on 05/07/2024 showing no acute hemorrhage and no other acute superimposed findings 2. Diabetes mellitus poorly controlled A1c greater than 12. seen by endocrine. Continue Metformin Continue Glipizide POC this am is 105 3. Hypertension Blood pressure this am 147/73 Continue Norvasc Off lisinopril due to allergic reaction Continue to monitor closely 4. DVT prophylaxis Continue Lovenox 5. Acute back pain radiating to right flank Resolved UA showing no significant bacteria Noted to have large amount of blood Per nursing staff patient currently on her menses H&H stable at 11 and 34 Continue to closely monitor Continue as needed tramadol 6. FULL CODE I have discussed the above assessment and plan with my attending physician Dr. Beltre who agrees with the above assessment and plan * Ruchi Colón, PT - 05/07/2024 1:45 PM EST [facility] Physical Therapy Treatment Note 05/07/2024 Patient: Amalia Ann : 1975 Age: 48 y.o. 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 Please update the Problem List and refresh. Past Medical History: Diagnosis Date CVA (cerebral vascular accident) (CMS/HCC) DM (diabetes mellitus) ([facility]) HTN (hypertension) History reviewed. No pertinent surgical history. Allergies: is allergic to lisinopril. Precautions: Medical Precautions: Fall Risk Safety Interventions: Call noriega within reach, ID band on, Chair alarm Swallow Precautions: Modified Diet (IDDS 6/2 (soft/bite sized solids/nectar thick liquids)) RUE Weight Bearing Status: Full LUE Weight Bearing Status: Full, As Tolerated RLE Weight Bearing Status: Full LLE Weight Bearing Status: Full SUBJECTIVE Pt report: I just feel frustrated I am not doing as well Pain: Pain Assessment: No/denies pain OBJECTIVE General Observation: Pt supine in bed upon arrival to session, agreeable to PT session. Vitals: BP: (!) 144/79 Heart Rate: 66 Procedure/Treatment: Neuromuscular Reeducation: Balance/Neuromuscular Re-Education Neuromuscular Re-Education Time Entry: 45 Barbadian video automatic embroidery machine tender [email or web address] used through session. Pt supine in bed upon arrival to session, agreeable to PT session. Steadying assist sit to supine. Completing stand pivot transfer no ADfrom edge of bed to wheelchair. Dependent wheelchair mobility to therapy gym. Completion 1x30ft ambulation with SBQC with partial A. Pt holding L knee in flexion during ambulation. Partial A for postural control and L knee buckling. Completion 2x4 stairs with seated rest break between trials, partial A, B rails, step to pattern. Leading with RLE on ascent and LLE on descent. Blocking L knee throughout. Often coming into hyperextension. Dependent wheelchair mobility into dining room area. Completion 4x10ft ambulation with SBQC turning to L and R sides to sit in chair. Partial A throughout. Assist with postural control. Holding L knee in flexion during stance phase, able to self correct when buckling. Dependent wheelchair mobility back to room. Stand pivot transfer partial A with use of bedrail. Steadying for sit to supine. Bed alarm on, call noriega given, all needs met. Education: Education Documentation Mobility Training, taught by Ruchi Colón PT at 05/07/2024 2:37 PM. Learner: Patient Readiness: Acceptance Method: Explanation, Demonstration Response: Verbalizes Understanding, Demonstrated Understanding Warning Signs and Symptoms of Stroke, taught by Ruchi Colón PT at 05/07/2024 2:37 PM. Learner: Patient Readiness: Acceptance Method: Explanation, Demonstration Response: Verbalizes Understanding, Demonstrated Understanding Fall Precautions, taught by Ruchi Colón PT at 05/07/2024 2:37 PM. Learner: Patient Readiness: Acceptance Method: Explanation, Demonstration Response: Verbalizes Understanding, Demonstrated Understanding Education Comments No comments found. ASSESSMENT PT Assessment PT Assessment Results: Decreased strength, Decreased range of motion, Decreased endurance, Impairedbalance, Impaired gait, Decreased mobility Prognosis: Good Evaluation/Treatment Tolerance: Patient tolerated treatment well Comments: Pt with good tolerance to treatment session. Challenged by turning during ambulation. Will continue to benefit from skilled physical therapy. Equipment: TBD Plan of Care Plan Treatment/Interventions: (As per IE) PT Plan: Skilled PT PT Frequency: 5-7 days per week PT Duration of Sessions: 60-90 min per session PT Treatments per day: 1-2 times per day Equipment Recommended: TBD Barriers to Discharge: home environment, medical condition PT - Evaluation Status: Complete Problems/Goals Goals: Encounter Problems Encounter Problems (Active) Template: Physical Therapy Problem: PT Chcf Goals Dates: Start: 04/20/24 Goal: mod I bed mobility Dates: Start: 04/20/24 Expected End: 05/11/24 Outcomes Date/Time User Outcome 05/06/24 Ben Garcia PT Progressing Goal: mod I transfers with LAD Dates: Start: 04/20/24 Expected End: 05/11/24 Outcomes Date/Time User Outcome 05/06/24 1038 Elzbieta Garcia PT Progressing Goal: mod I wc mobility 150' Dates: Start: 04/20/24 Expected End: 05/11/24 Outcomes Date/Time User Outcome 05/06/24 1038 Elzbieta Garcia PT Progressing Goal: up/dn 4 flights of stairs min A Dates: Start: 04/20/24 Expected End: 05/11/24 Outcomes Date/Time User Outcome 05/06/24 1038 Elzbieta Garcia PT Progressing Problem: PT Short Term Goals Dates: Start: 04/20/24 Goal: Pt will perform bed mobility min A Dates: Start: 04/20/24 Expected End: 04/27/24 Outcomes Date/Time User Outcome 05/06/24 1038 Elzbieta Garcia PT Progressing Goal: Pt will transfer with min A Dates: Start: 04/20/24 Expected End: 04/27/24 Outcomes Date/Time User Outcome 05/06/24 1038 Elzbieta Garcia PT Progressing Goal: Pt will ambulate 25' with LAD mod A Dates: Start: 04/20/24 Expected End: 04/27/24 Outcomes Date/Time User Outcome 05/06/24 1038 Elzbieta Garcia PT Progressing Goal: Assess stairs as appropriate (Resolved) Dates: Start: 04/20/24 Expected End: 04/27/24 Resolved: 05/06/24 Outcomes Date/Time User Outcome 05/06/24 1038 Elzbieta Garcia PT Completed Goal: Supervision wc mobility and mgmt 150' (Resolved) Dates: Start: 04/20/24 Expected End: 04/27/24 Resolved: 05/06/24 Description: Outcomes Date/Time User Outcome 05/06/24 1038 Elzbieta Garcia PT Completed Encounter Problems (Resolved) There are no resolved problems. Session Start/Stop Time: 1345 1430 Therapy Minutes Physical Therapy PT Individual: 45 * Shayy Sanchez, LOGISTICIAN - 05/07/2024 1:00 PM EST Speech Language Pathology Speech Language Pathology Treatment Subjective LOGISTICIAN Start Time: 1300 LOGISTICIAN Stop Time: 1330 LOGISTICIAN Time Calculation (min): 30 min Subjective: 'My speech still sounds slow'. Pt returning from imaging. Agreeable to ST. Objective General Visit Info General Family/Caregiver Present: No Treatment Speech and Language Speech Treatment (Individual) Time Entry: 15 Speech: Pt tasked with answering various 'what if' scenarios targeting speech strategies. Prior to task, reviewed speech strategies. Pt able to indp recall 2/3. Pt demonstrated increased slowness. Per automatic embroidery machine tender, Pt demonstrating unintelligible speech x2 instances, required repetition. Otherwise, automatic embroidery machine tender reporting Pt is 100% intelligible. Cognitive Skills Therapeutic Interventions Cognitive Skills Direct Contact Time Entry: 15 Attention/Concentration: Various alternating/divided attention tasks on CT [place]: mod to higher level: 95% accuracy given max fading to min A. Set up required for scanning. Comments Comments: Pt emotional at end of session, reporting sadness being in hospital without family for holidays. Provided reassurance and support. Assessment/Plan LOGISTICIAN Assessment Evaluation/Treatment Tolerance: Patient tolerated treatment well Medical Staff Made Aware: Yes Comments: RN aware of speech per automatic embroidery machine tender. Plan Treatment/Interventions: Cognitive linguistic functioning LOGISTICIAN Plan: Skilled LOGISTICIAN LOGISTICIAN Frequency: 5-7 days per week LOGISTICIAN Duration of Sessions: 30-60 min per session LOGISTICIAN Treatments per day: 1 time per day LOGISTICIAN - Next Appointment: 05/09/24 Goals Encounter Problems Encounter Problems (Active) Template: Speech Therapy Problem: Cognitive/Linguistics Dates: Start: 04/20/24 Goal: Patient will participate in further assessment of cognitive-linguistic skills (Resolved) Dates: Start: 04/20/24 Expected End: 05/04/24 Resolved: 05/01/24 Description: Outcomes Date/Time User Outcome 05/01/24 0920 MARIE Shrestha Completed Goal: Patient will identify and utilize problem-solving intervention for task completion at 90% accuracy given min A Dates: Start: 04/20/24 Expected End: 05/08/24 Description: Outcomes Date/Time User Outcome 05/03/24 1156 MARIE Arroyo Not Progressing Goal: Patient will complete simple calculations for time/money management at 90% accuracy given Mauro Dates: Start: 04/20/24 Expected End: 05/11/24 Description: Outcomes Date/Time User Outcome 05/06/24 1242 Shayy Mozeleski, LOGISTICIAN Not Progressing Goal: Pt will improve intelligibility at the sentence/conversational level to baseline given min A for speech strategies. (Resolved) Dates: Start: 04/21/24 Expected End: 04/28/24 Resolved: 04/26/24 Description: Outcomes Date/Time User Outcome 04/26/24 1127 MARIE Arroyo Completed Goal: Pt will improve delayed recall of functional information given min A for encoding and min A for retrieval - 90% accuracy Dates: Start: 04/22/24 Expected End: 05/06/24 Description: Outcomes Date/Time User Outcome 05/07/24 1335 MARIE Shrestha Progressing Goal: Pt will complete basic to mod level auditory/visual attention tasks - 90% accuracy given mod A. Dates: Start: 04/23/24 Expected End: 05/07/24 Description: Outcomes Date/Time User Outcome 05/07/24 1335 MARIE Shrestha Progressing Goal: Pt will participate in sequencing/direction following tasks related to functional/ADL tasks given min A- 90% accuracy. Dates: Start: 04/24/24 Expected End: 05/08/24 Description: Outcomes Date/Time User Outcome 05/04/24 1611 MARIE Arroyo Progressing Goal: Pt will improve intelligibility at the paragraph/conversational level to baseline and independent w/ use of strategies Dates: Start: 04/26/24 Expected End: 05/08/24 Description: Outcomes Date/Time User Outcome 05/07/24 1335 MARIE Shrestha Not Progressing Encounter Problems (Resolved) Template: Speech Therapy Problem: Swallowing Dates: Start: 04/20/24 Resolved: 04/23/24 Goal: Patient will tolerate the least restrictive diet consistency to allow for safe consumption ofdaily meals (Resolved) Dates: Start: 04/20/24 Expected End: 05/04/24 Resolved: 04/23/24 Description: Outcomes Date/Time User Outcome 04/23/24 1253 MARIE Shrestha Completed Goal: Patient will demonstrate safe swallowing Intervention/techniques (Resolved) Dates: Start: 04/20/24 Expected End: 05/04/24 Resolved: 04/23/24 Description: Outcomes Date/Time User Outcome 04/23/24 1253 MARIE Shrestha Completed Education Documentation Speech/Language, taught by MARIE Shrestha at 05/07/2024 1:00 PM. Learner: Patient Readiness: Acceptance Method: Explanation, Trench Trimmer Fine Response: Verbalizes Understanding Comment: speech strategies, attention strategies Education Comments No comments found. Associated attrination - Christianne Fritz SLP - 05/07/2024 2:15 PM EST I attest that I, Christianne Fritz M.S.,AG-LOGISTICIAN, was physically involved in the ongoing assessment, decision making, and interventions provided during today's patient care session. I have reviewed all documentation for today's 05/07/24, entered by Speech Therapy Fellow, Shayy Sanchez , and furtherattest that it is an accurate clinical record of today's encounter, including accurate and appropriate charges. * MARIE Shrestha - 05/07/2024 12:30 PM EST Amalia Ann was unable to complete her planned Speech Therapy session with MARIE Shrestha on05/07/2024 due to being off unit for testing/procedure. Next treatment attempt will be As soon as possible. Associated attrination - Christianne Fritz SLP - 05/07/2024 1:12 PM EST I attest that I, Christianne Fritz M.S.,[facility]-LOGISTICIAN, was physically involved in the ongoing assessment, decision making, and interventions provided during today's patient care session. I have reviewed all documentation for today's 05/07/24, entered by Speech Therapy Fellow, Shayy Sanchez , and furtherattest that it is an accurate clinical record of today's encounter, including accurate and appropriate charges. * Sury Barlow OT - 05/07/2024 12:27 PM EST [facility] Occupational Therapy Treatment Note 05/07/24 Patient: Amalia Ann : 1975 Age: 48 y.o. Gender: female Diagnosis: No Principal Problem: There is no principal problem currently on the Problem List. Please update the Problem List and refresh. Primary Rehab (Etiologic) Diagnosis: Patient Active Problem List Diagnosis HTN (hypertension) DM (diabetes mellitus) ([facility]/HCC) CVA (cerebral vascular accident) ([facility]) PMH: Past Medical History: Diagnosis Date CVA (cerebral vascular accident) ([facility]/HCC) DM (diabetes mellitus) ([facility]) HTN (hypertension) PSH: History reviewed. No pertinent surgical history. Allergies: is allergic to lisinopril. Precautions: Precautions Medical Precautions: Fall Risk Safety Interventions: Call noriega within reach, ID band on, Chair alarm Swallow Precautions: Modified Diet (IDDS 6/2 (soft/bite sized solids/nectar thick liquids)) RUE Weight Bearing Status: Full LUE Weight Bearing Status: Full, As Tolerated RLE Weight Bearing Status: Full LLE Weight Bearing Status: Full Vitals: BP: 125/73 Heart Rate: 66 SpO2: 98 % Pain: Subjective: Ever since Monday, my left arm hasn't been the same, I feel like it's worse Procedures/Interventions: ADLs/IADLs Self Care/Home Management (ADLs) Time Entry: 30 ADL/ IADL Performed: Grooming, Shower Transfers, Dressing, Bathing, Oral Hygiene Balance/Neuromuscular Re-Education Neuromuscular Re-Education Time Entry: 15 Therapeutic Activity Therapeutic Activity Time Entry: 45 Pt seated upright in bed upon arrival, agreeable to participate in therapy. Vitals assessed, see above. Pt requesting to take a shower. Sup A bed mob to sit EOB. Total A to don B socks. Mod A SPT to w/c. Dep w/c mob to hallway-unit shower. Min A SPT to transfer bench in walk-in shower; pt utilizingR UE on grab bar for support. Pt able to doff shirt with sup. Min A STS with R UE on grab bar for support, total A to pull pants/underwear below waist. Pt able to doff pants/underwear and B socks while seated. Pt able to bathe majority of UB with R hand, engaging L hand to bathe R underarm, slight success. Pt demoing figure four method to bathe BLE while seated. Min A STS, pt able to bathe valerie ar ea/buttocks with overall SBA. Pt seated to wash hair, able to engage L hand to put soap in hair. Upon completion, pt completed drying task with sup. Total A to don B socks, touching A to don lopez. Min A SPT to return to [facility]. [facility] w/ mob to room to complete UB/LB dressing. Pt donned tshirt with sup. Min A to thread pants through BLE. Min A STS for total A to don brief and pull pants above waist.Pt completed oral hygiene/grooming mngmt in [facility] at sink level, demoing good semi-functional grasp to hold toothbrush in L hand. Upon completion of ADL, [facility] w/ mob to gym to complete therapeutic activity and neuro re-ed. Pt remained seated at tabletop, participated in completing L to R ROM arc with L UE, x3 trials. Overall min A to initiate each grasp of the ring and cues for more control during descent. Pt remained seated in [facility] to open various household containers, utilizing L hand as gross grasp to increase strength. Pt able to complete with increased time, dropping x2 containers during activity. Min A SPT <> EOM to complete neuro re-ed. Pt supine, completed x10 reps x2 of sh ext/flex to 90*, elbow flex/ext, and crossing midline with LUE. Pt requiring elbow blocking during sh flex/ext, and cues throughout for maintaining control through movement. Pt returned to [facility], [facility] transport backto room. PCT present for blood glucose test. Pt remained seated in [facility] to eat lunch with call noriega within reach and alarm on. All needs met. OT Assessment OT Assessment OT Assessment Results: Decreased ADL status, Decreased upper extremity range of motion, Decreased upper extremity strength, Decreased endurance, Decreased safe judgment during ADL, Visual deficit, Decreased fine motor control, Decreased functional mobility, Decreased gross motor control, Decreased IADLs, Decreased trunk control for functional activities Prognosis: Good Evaluation/Treatment Tolerance: Patient tolerated treatment well Comments: (Completed 90min session. Pt reporting decreased function in LUE and increased frustration with performance. Pt demoing improved ADL performance, however, would benefit from strength/ROM/FMactivities with L UE.) Medical Staff Made Aware: Yes (RN aware of BP) OT Plan Plan Treatment Interventions: ADL retraining, Functional transfer training, UE strengthening/ROM, Endurance training, Patient/family training, Equipment evaluation/education, Neuromuscular reeducation, Fine motor coordination activities OT Plan: Skilled OT OT Frequency : 5-7 days per week OT Duration of Sessions: 60-90 min per session OT Treatments per day: 1 time per day OT - Evaluation Status: Complete Equipment Recommended: (TBD) Goals: Encounter Problems Encounter Problems (Active) Template: Occupational Therapy Problem: OT Membership Manager Goals Dates: Start: 04/20/24 Goal: Pt will be mod I with LB dressing Dates: Start: 04/20/24 Expected End: 05/18/24 Goal: Pt will be mod I with UB dressing Dates: Start: 04/20/24 Expected End: 05/18/24 Goal: Pt will be S with bathing Dates: Start: 04/20/24 Expected End: 05/18/24 Goal: Pt will be mod I with toileting including txfer Dates: Start: 04/20/24 Expected End: 05/18/24 Goal: Pt will perform tub txfer with LRAD with S. Dates: Start: 04/20/24 Expected End: 05/18/24 Goal: Pt will be mod I with snack/beverage retrieval at LRAD Dates: Start: 04/20/24 Expected End: 05/18/24 Description: Encounter Problems (Resolved) Template: Occupational Therapy Problem: OT Short Term Goals Dates: Start: 04/20/24 Resolved: 05/03/24 Goal: Pt will perform toileting with partial A (Resolved) Dates: Start: 04/20/24 Expected End: 04/27/24 Resolved: 05/03/24 Outcomes Date/Time User Outcome 05/03/24 Susan Gray OT Completed Goal: Pt will perform LB dressing with partial A (Resolved) Dates: Start: 04/20/24 Expected End: 04/27/24 Resolved: 05/03/24 Outcomes Date/Time User Outcome 05/03/24 Susan Gray OT Completed Goal: Pt will perform bathing with steadying A. (Resolved) Dates: Start: 04/20/24 Expected End: 04/27/24 Resolved: 05/03/24 Outcomes Date/Time User Outcome 05/03/24 Susan Gray OT Completed Goal: Pt will be able to utilize L UE as an independent stabilizer during grooming tasks (Resolved) Dates: Start: 04/20/24 Expected End: 04/27/24 Resolved: 05/03/24 Outcomes Date/Time User Outcome 05/03/24 140Angie Gray OT Completed Goal: Pt will perform UB dressing with PETERSON, with carryover of tasha dressing technique (Resolved) Dates: Start: 04/20/24 Expected End: 04/27/24 Resolved: 05/03/24 Outcomes Date/Time User Outcome 05/03/24 Susan Gray OT Completed Education Documentation No documentation found. Education Comments No comments found. Start/Stop Time OT Time Calculation OT Start Time: 1000 OT Stop Time: 1130 OT Time Calculation (min): 90 min Therapy Minutes: Occupational Therapy OT Individual: 90 * Neida Bailey, DO - 05/07/2024 12:09 PM EST Images from the original note were not included. [facility] Daily Progress Note Patient name: Amalia Ann : 1975 SUBJECTIVE: Patient seen and examined at bedside today. No acute events overnight. Denies headaches, dizziness,shortness of breath, chest pain, nausea, constipation, and pain. Patient reports that she feels as though her left upper extremity and right hand strength is slightly weaker since Monday. Shereports that she began noticing increased difficulty with speech on Monday morning as well. She reports that therapies have been a bit more difficult over the past 2 days. She denies any new headaches, vision changes, or balance issues. OBJECTIVE: Vitals: 05/06/24 1550 05/06/24 2326 05/07/24 0747 05/07/24 0923 BP: 127/70 (!) 147/79 121/65 121/65 BP Location: Right arm Right arm Patient Position: Lying Sitting Pulse: 59 70 60 Resp: 16 16 16 Temp: 36.5 ??C (97.7 ??F) 37 ??C (98.6 ??F) 36.6 ??C (97.9 ??F) TempSrc: Oral Oral SpO2: 100% 99% 99% Weight: Height: Physical Examination: General: Alert, in no acute cardiopulmonary distress. Mental Status: Oriented to person, place and time. Normal affect. Head: Normocephalic. Eyes: Extraocular muscles grossly intact. Ear, Nose and Throat: Oropharynx clear, mucous membranes moist. Ears and nose without masses, lesions or deformities. Neck: Supple, Trachea midline. Respiratory: Clear to auscultation and percussion. No wheezing, rales or rhonchi. Cardiovascular: Heart sounds normal. No thrills. Regular rate and rhythm, no murmurs, rubs or gallops. Gastrointestinal: Abdomen soft, non-tender, non-distended. Normal bowel sounds. Neurologic: Cranial nerves II-XII grossly intact. Moves all extremities spontaneously. Sensation intact bilaterally. +left hemiparesis (improving in UE) Skin: No rashes or lesions. No petechiae or purpura. No edema. Musculoskeletal: No cyanosis or clubbing. No gross deformities. Normal range of motion. Strength 4/5 left shoulder abduction, 4/5 left elbow flexion, 3/5 left wrist extension, 1/5 left finger flexion. Antigravity strength left hip flexion and knee extension. Left dorsiflexion strength 1/5. CURRENT INPATIENT MEDICATIONS: Current Facility-Administered Medications: acetaminophen (TYLENOL) tablet 650 mg, 650 mg, oral, q6h PRN, BRAD Hicks, 650 mg at aluminum-magnesium hydroxide-simethicone (MAALOX) 200-200-20 mg/5 mL suspension 30 mL, 30 mL, oral,q4h PRN, BRAD Hicks, 30 mL at 05/06/24 0354 amLODIPine (NORVASC) tablet 5 mg, 5 mg, oral, Daily, Leah Philippe NP, 5 mg at aspirin EC tablet 81 mg, 81 mg, oral, Daily, BRAD Hicks, 81 mg at 05/07/24922 atorvastatin (LIPITOR) tablet 80 mg, 80 mg, oral, Nightly, BRAD Hicks, 80 mg at 05/06/242031 clopidogreL (PLAVIX) tablet 75 mg, 75 mg, oral, Daily, BRAD Hicks, 75 mg at 05/07/24922 dextrose (D50W) 50% injection 12.5 g, 12.5 g, intravenous, q15 min PRN, BRDA Hicks dextrose (D50W) 50% injection 25 g, 25 g, intravenous, q15 min PRN, BRAD Hicks dextrose 15 gram/60 mL oral solution 15 g, 15 g, oral, q15 min PRN, BRAD Hicks dextrose 15 gram/60 mL oral solution 30 g, 30 g, oral, q15 min PRN, BRAD Hicks glipiZIDE (GLUCOTROL) tablet 5 mg, 5 mg, oral, q AM AC, BRAD Viramontes, 5 mg at 05/07/24 0740 Glucagon HCl (rDNA) injection 1 mg, 1 mg, intramuscular, Once PRN, BRAD Hicks hydrALAZINE (APRESOLINE) tablet 10 mg, 10 mg, oral, TID PRN, BRAD Viramontes insulin lispro injection 2-12 Units, 2-12 Units, subcutaneous, TID AC, Neida Bailey DO, 4 Units at 05/06/24 1139 magnesium hydroxide (MILK OF MAGNESIA) 400 mg/5 mL suspension 30 mL, 30 mL, oral, Daily PRN, BRAD Rojas, 30 mL at 04/23/24 0529 metFORMIN (GLUCOPHAGE) tablet 500 mg, 500 mg, oral, BID with meals, Leah Philippe NP, 500 mg at 05/07/24 0740 traMADoL (ULTRAM) tablet 25 mg, 25 mg, oral, q6h PRN, Radhika Barber NP, 25 mg at 05/06/242031 LABS: Lab Results Component Value Date WBC 6.7 05/07/2024 RBC 3.90 05/07/2024 HGB 11.2 (L) 05/07/2024 HCT 34.5 (L) 05/07/2024 MCV 89.4 05/07/2024 MCHC 32.5 05/07/2024 RDW 12.7 05/07/2024 PLT 300 05/07/2024 MPV 12.1 (H) 05/07/2024 NRBC 0.0 05/07/2024 DIFF Lab Results Component Value Date LYMPHOPCT 10.4 05/06/2024 NEUTROABS 7.49 (H) 05/06/2024 LYMPHSABS 0.92 (L) 05/06/2024 MONOABS 0.33 05/06/2024 EOSABS 0.02 05/06/2024 BASOSABS 0.02 05/06/2024 IMMGRANABS 0.03 05/06/2024 Lab Results Component Value Date NA 139 05/07/2024 K 4.0 05/07/2024 CL 105 05/07/2024 CO2 28 05/07/2024 GLUCOSE 72 05/07/2024 BUN 13 05/07/2024 CREATININE 0.63 05/07/2024 CALCIUM 9.3 05/07/2024 PROT 6.3 04/20/2024 ALBUMIN 3.2 04/20/2024 BILITOT 0.6 04/20/2024 AST 27 04/20/2024 ALT 32 04/20/2024 ALKPHOS 89 04/20/2024 EGFR 111 05/07/2024 IMPRESSION & PLAN: #Impaired mobility and self care -secondary to CVA -continue PT, OT, LOGISTICIAN, and nursing care #Acute anterior right pontine stroke #Left hemiparesis #Dysarthria -Aspirin 81mg daily -Plavix 75mg daily -Atorvastatin 80mg nightly -will obtain repeat CT Head to r/o bleed given reports of increased difficulty with speech and increased LUE weakness over the past 48 hours #Dysphagia -IDDSI 6 diet with IDDSI 2 mildly thick liquids -continue LOGISTICIAN #Hypertension -Amlodipine 5mg daily started 04/28 -Lisinopril 10mg daily increased to 20mg daily on 04/25 --> discontinued 05/01 due to complaintsof itchiness to her throat #Diabetes mellitus type 2 -noncompliant with treatment prior to admission -continue diabetic education -will need glucometer and supplies on discharge -ISS -Lantus 22 units QHS decreased to 10 units QHS on 05/02 -Metformin 500mg BID started 04/28 -Glipizide 5mg daily started 05/03 #Bladder management -UA 05/06 negative for UTI #Bowel management -Colace and Senna discontinued on 05/01 due to loose stools -monitor #DVT prophylaxis: Lovenox 40mg daily discontinued 05/[address] head to be completed. * Iza Mendoza PT - 05/07/2024 12:00 PM EST [facility] Physical Therapy Treatment Note 05/07/2024 Patient: Amalia Ann : 1975 Age: 48 y.o. Gender: female Primary Language: Barbadian Diagnosis: No Principal Problem: There is no principal problem currently on the Problem List. Please update the Problem List and refresh. Past Medical History: Diagnosis Date CVA (cerebral vascular accident) (CMS/HCC) DM (diabetes mellitus) (CMS/HCC) HTN (hypertension) History reviewed. No pertinent surgical history. Allergies: is allergic to lisinopril. Precautions: Medical Precautions: Fall Risk Safety Interventions: Call noriega within reach, ID band on, Chair alarm Swallow Precautions: Modified Diet (IDDS 6/2 (soft/bite sized solids/nectar thick liquids)) RUE Weight Bearing Status: Full LUE Weight Bearing Status: Full, As Tolerated RLE Weight Bearing Status: Full LLE Weight Bearing Status: Full NURSING RECOMMENDATIONS Bed Mobility: Transfers: Ambulation: SUBJECTIVE Pt report: I don't know why I'm getting worse Pain: Pain Assessment: No/denies pain OBJECTIVE Procedure/Treatment: Neuromuscular Reeducation: Balance/Neuromuscular Re-Education Neuromuscular Re-Education Time Entry: 30 Pt received in bed, agreeable to PT. Barbadian video automatic embroidery machine tender utilized throughout, ID#[id number]. Supine > sit steadying A. Partial A SPT to bed. Pt dependently transported to the gym. STS to LBQC steadying A, gait x3' with LBQC. Pt becoming very tearful and emotional, needing to sit, concerned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 Outcomes Date/Time User Outcome 04/26/24 1212 Elzbieta Garcia PT Progressing Goal: Pt will ambulate 25' with LAD mod A Dates: Start: 04/20/24 Expected End: 04/27/24 Outcomes Date/Time User Outcome 04/26/24 1212 Elzbieta Garcia PT Progressing Goal: Assess stairs as appropriate Dates: Start: 04/20/24 Expected End: 04/27/24 Outcomes Date/Time User Outcome 04/26/24 121Sita Garcia PT Progressing Goal: Supervision wc mobility and mgmt 150' Dates: Start: 04/20/24 Expected End: 04/27/24 Description: Outcomes Date/Time User Outcome 04/26/24 1212 Elzbieta Garcia PT Progressing Encounter Problems (Resolved) There are no resolved problems. Session Start/Stop Time: 1230 1400 Therapy Minutes Physical Therapy PT Individual: 90 * Neida Bailey, - 05/03/2024 12:08 PM EST Images from the original note were not included. [facility] IN[facility]IENT [facility] Daily Progress Note Patient name: Amalia Ann : 1975 SUBJECTIVE: Patient seen and examined at bedside today. No acute events overnight. Denies headaches, dizziness,shortness of breath, chest pain, nausea, constipation, and pain. No new concerns today. Participating in therapies: Pt completing 2x40ft, x30ft of ambulation with weighted walker, pt needing partial A x1, acute buckling and hyperextension on LLE during stance phase of gait. OBJECTIVE: Vitals: 05/02/24 1529 05/03/24 0315 05/03/24 0850 05/03/24 1044 BP: 128/65 (!) 149/83 130/77 (!) 144/86 BP Location: Left arm Right arm Patient Position: Lying Sitting Pulse: 70 74 67 74 Resp: 18 17 Temp: 37.1 ??C (98.8 ??F) 36.5 ??C (97.7 ??F) 36.7 ??C (98.1 ??F) TempSrc: Oral Oral SpO2: 98% 100% 100% Weight: Height: Physical Examination: General: Alert, in no acute cardiopulmonary distress. Mental Status: Oriented to person, place and time. Normal affect. Head: Normocephalic. Eyes: Extraocular muscles grossly intact. Ear, Nose and Throat: Oropharynx clear, mucous membranes moist. Ears and nose without masses, lesions or deformities. Neck: Supple, Trachea midline. Respiratory: Clear to auscultation and percussion. No wheezing, rales or rhonchi. Cardiovascular: Heart sounds normal. No thrills. Regular rate and rhythm, no murmurs, rubs or gallops. Gastrointestinal: Abdomen soft, non-tender, non-distended. Normal bowel sounds. Neurologic: Cranial nerves II-XII grossly intact. Moves all extremities spontaneously. Sensation intact bilaterally. +left hemiparesis (improving in UE) Skin: No rashes or lesions. No petechiae or purpura. No edema. Musculoskeletal: No cyanosis or clubbing. No gross deformities. Normal range of motion. Strength 4/5 left shoulder abduction, 4/5 left elbow flexion, 3/5 left wrist extension, 3/5 left finger flexion. Antigravity strength left hip flexion and knee extension. Left dorsiflexion strength 1/5. CURRENT INPATIENT MEDICATIONS: Current Facility-Administered Medications: acetaminophen (TYLENOL) tablet 650 mg, 650 mg, oral, q6h PRN, BRAD Hicks aluminum-magnesium hydroxide-simethicone (MAALOX) 200-200-20 mg/5 mL suspension 30 mL, 30 mL, oral,q4h PRN, BRAD Hicks, 30 mL at 04/23/24 0530 amLODIPine (NORVASC) tablet 5 mg, 5 mg, oral, Daily, Leah Philippe, JASON, 5 mg at 850 aspirin EC tablet 81 mg, 81 mg, oral, Daily, BRAD Hicks, 81 mg at 05/03/24 0850 atorvastatin (LIPITOR) tablet 80 mg, 80 mg, oral, Nightly, BRAD Hicks, 80 mg at 05/02/242051 clopidogreL (PLAVIX) tablet 75 mg, 75 mg, oral, Daily, BRAD Hicks, 75 mg at 05/03/24 0850 dextrose (D50W) 50% injection 12.5 g, 12.5 g, intravenous, q15 min PRN, BRAD Hicks dextrose (D50W) 50% injection 25 g, 25 g, intravenous, q15 min PRN, BRAD Hicks dextrose 15 gram/60 mL oral solution 15 g, 15 g, oral, q15 min PRN, BRAD Hicks dextrose 15 gram/60 mL oral solution 30 g, 30 g, oral, q15 min PRN, BRAD Hicks enoxaparin (LOVENOX) injection 40 mg, 40 mg, subcutaneous, Daily, BRAD Hicks, 40 mg at 05/03/24 0849 glipiZIDE (GLUCOTROL) tablet 5 mg, 5 mg, oral, q AM AC, BRAD Viramontes, 5 mg at 05/03/24 0849 Glucagon HCl (rDNA) injection 1 mg, 1 mg, intramuscular, Once PRN, BRAD Hicks hydrALAZINE (APRESOLINE) tablet 10 mg, 10 mg, oral, TID PRN, BRAD Viramontes insulin glargine (LANTUS) injection 10 Units, 10 Units, subcutaneous, Nightly, BRAD Viramontes, 10 Units at 05/02/242052 insulin lispro injection 2-12 Units, 2-12 Units, subcutaneous, TID AC, BRAD Viramontes, 6 Units at 05/02/24 170 magnesium hydroxide (MILK OF MAGNESIA) 400 mg/5 mL suspension 30 mL, 30 mL, oral, Daily PRN, BRAD Rojas, 30 mL at 04/23/24 0529 metFORMIN (GLUCOPHAGE) tablet 500 mg, 500 mg, oral, BID with meals, Leah Philippe NP, 500 mg at 05/03/24 0850 LABS: Lab Results Component Value Date WBC 7.8 04/29/2024 RBC 4.30 04/29/2024 HGB 12.4 04/29/2024 HCT 38.2 04/29/2024 MCV 89.7 04/29/2024 MCHC 32.5 04/29/2024 RDW 12.6 04/29/2024 PLT 291 04/29/2024 MPV 12.0 (H) 04/29/2024 NRBC 0.0 04/29/2024 DIFF Lab Results Component Value Date LYMPHOPCT 12.8 04/20/2024 NEUTROABS 7.05 (H) 04/20/2024 LYMPHSABS 1.16 04/20/2024 MONOABS 0.69 04/20/2024 EOSABS 0.08 04/20/2024 BASOSABS 0.02 04/20/2024 IMMGRANABS 0.03 04/20/2024 Lab Results Component Value Date NA 141 04/29/2024 K 4.2 04/29/2024 CL 106 04/29/2024 CO2 28 04/29/2024 GLUCOSE 90 05/03/2024 BUN 11 04/29/2024 CREATININE 0.68 04/29/2024 CALCIUM 9.7 04/29/2024 PROT 6.3 04/20/2024 ALBUMIN 3.2 04/20/2024 BILITOT 0.6 04/20/2024 AST 27 04/20/2024 ALT 32 04/20/2024 ALKPHOS 89 04/20/2024 EGFR 109 04/29/2024 IMPRESSION & PLAN: #Impaired mobility and self care -secondary to CVA -continue PT, OT, LOGISTICIAN, and nursing care #Acute anterior right pontine stroke #Left hemiparesis #Dysarthria -Aspirin 81mg daily -Plavix 75mg daily -Atorvastatin 80mg nightly #Dysphagia -IDDSI 6 diet with IDDSI 2 mildly thick liquids -continue LOGISTICIAN #Hypertension -Amlodipine 5mg daily started 04/28 -Lisinopril 10mg daily increased to 20mg daily on 04/25 --> discontinued 05/01 due to complaintsof itchiness to her throat #Diabetes mellitus type 2 -noncompliant with treatment prior to admission -continue diabetic education -will need glucometer and supplies on discharge -ISS -Lantus 22 units QHS decreased to 10 units QHS on 05/02 -Metformin 500mg BID started 04/28 -Glipizide 5mg daily started 05/03 #Bowel management -Colace and Senna discontinued on 05/01 due to loose stools -monitor #DVT prophylaxis: Lovenox 40mg daily * Sherri Rendon, LOGISTICIAN - 05/03/2024 11:59 AM EST Speech Language Pathology Speech Language Pathology Treatment Subjective LOGISTICIAN Start Time: 0900 LOGISTICIAN Stop Time: 1000 LOGISTICIAN Time Calculation (min): 60 min Subjective: Pt was alert and sitting upright in bed for the session. Pt was pleasant and cooperative throughout the session. president practicing urologist Leoncio, #[id number], and Dennise, #[id number], was used for thesession. Objective General Visit Info General Family/Caregiver Present: Yes Treatment Cognitive Skills Therapeutic Interventions Cognitive Skills Direct Contact Time Entry: 60 Memory: Pt was tasked w/ recalling call 911 in an emergency and was given mod A for encoding and required min A after 30-second delay and was able to indep. recall after 1-min, 2-min, 5-min, and 10-min delay. Problem Solving: Pt was able to answer questions related to money w/ 75% accuracy indep. w/ use of phone calculator and 100% accuracy given min A for calculations. Attention/Concentration: Pt tasked w/ visually scanning grocery catelog and identifying foods that she could have following the dieabetic diet given overall min A. Pt required reminders of guidelinesfor eating white meat vs. red meats. Pt required reminders of low carb. Pt tasked w/ reviewing resturant menus and finding meals that she can eat following the dieabetic diet w/ 70% accuracy indep. and required mod A for identifying why selected foods were not following the guidelines. Reasoning: Pt was able to answer hypothetical questions related to safety w/ 85% accuracy, pt couldnot indep. recall 911 for emergencies and was targeted for memory recall task. During task, pt reported that she does not use a pillbox at home and just writes down her medications. Pt was provided education about pillboxes and the importances of using them. Pt also reported that she couldn't recall the s/s of a stroke and was able to recall 2/5 s/s indep. Will target in future sessions. Other Cognitive Skills Activity: Pt engaged in a conversation about how her diet is going to changebecause the diabetes and required repetition to verbalize understanding. Pt engaged in a conversation about use of cognitive strategies during therapy sessions and required overall min A for recall of strategies. Assessment/Plan LOGISTICIAN Assessment LOGISTICIAN Assessment Results: Cognitive impairments Evaluation/Treatment Tolerance: Patient tolerated treatment well Plan Treatment/Interventions: Cognitive linguistic functioning LOGISTICIAN Plan: Skilled LOGISTICIAN LOGISTICIAN Frequency: 5-7 days per week LOGISTICIAN Duration of Sessions: 30-60 min per session LOGISTICIAN Treatments per day: 1 time per day LOGISTICIAN Discharge Recommendations: Outpatient LOGISTICIAN Goals Encounter Problems Encounter Problems (Active) Template: Speech Therapy Problem: Cognitive/Linguistics Dates: Start: 04/20/24 Goal: Patient will participate in further assessment of cognitive-linguistic skills (Resolved) Dates: Start: 04/20/24 Expected End: 05/04/24 Resolved: 05/01/24 Description: Goal Type: STG, Performance Level: Independent Outcomes Date/Time User Outcome 05/01/24 0920 MARIE Shrestha Completed Goal: Patient will identify and utilize problem-solving intervention for task completion at 90% accuracy given min A Dates: Start: 04/20/24 Expected End: 05/04/24 Description: Goal Type: STG, Performance Level: Min assist Outcomes Date/Time User Outcome 05/03/24 1156 MARIE Arroyo Not Progressing Goal: Patient will complete simple calculations for time/money management at 90% accuracy given Mauro Dates: Start: 04/20/24 Expected End: 05/04/24 Description: Goal Type: STG, Performance Level: Min assist Outcomes Date/Time User Outcome 05/03/24 1156 MARIE Arroyo Progressing Goal: Pt will improve intelligibility at the sentence/conversational level to baseline given min A for speech strategies. (Resolved) Dates: Start: 04/21/24 Expected End: 04/28/24 Resolved: 04/26/24 Description: Outcomes Date/Time User Outcome 04/26/24 1127 MARIE Arroyo Completed Goal: Pt will improve delayed recall of functional information given min A for encoding and min A for retrieval - 90% accuracy Dates: Start: 04/22/24 Expected End: 05/06/24 Description: Outcomes Date/Time User Outcome 05/03/24 1156 MARIE Arroyo Progressing Goal: Pt will complete basic to mod level auditory/visual attention tasks - 90% accuracy given mod A. Dates: Start: 04/23/24 Expected End: 05/07/24 Description: Outcomes Date/Time User Outcome 05/03/24 1156 MARIE Arroyo Progressing Goal: Pt will participate in sequencing/direction following tasks related to functional/ADL tasks given min A- 90% accuracy. Dates: Start: 04/24/24 Expected End: 05/08/24 Description: Outcomes Date/Time User Outcome 05/01/24 0920 MARIE Shrestha Not Progressing Goal: Pt will improve intelligibility at the paragraph/conversational level to baseline and independent w/ use of strategies Dates: Start: 04/26/24 Expected End: 05/08/24 Description: Outcomes Date/Time User Outcome 05/01/24 0920 MARIE Shrestha Progressing Encounter Problems (Resolved) Template: Speech Therapy Problem: Swallowing Dates: Start: 04/20/24 Resolved: 04/23/24 Goal: Patient will tolerate the least restrictive diet consistency to allow for safe consumption ofdaily meals (Resolved) Dates: Start: 04/20/24 Expected End: 05/04/24 Resolved: 04/23/24 Description: Outcomes Date/Time User Outcome 04/23/24 1253 MARIE Shrestha Completed Goal: Patient will demonstrate safe swallowing Intervention/techniques (Resolved) Dates: Start: 04/20/24 Expected End: 05/04/24 Resolved: 04/23/24 Description: Outcomes Date/Time User Outcome 04/23/24 1253 MARIE Shrestha Completed Education Documentation Cognition, taught by MARIE Arroyo at 05/03/2024 11:57 AM. Learner: Patient Readiness: Acceptance Method: Explanation Response: Verbalizes Understanding Comment: Pt was provided education about cognitive strategies and importance of following diabetic guidelines. Education Comments No comments found. Associated attestation - Jen Duque SLP - 05/03/2024 4:51 PM EST I attest that I, Amber Duque M.S.,[facility]-LOGISTICIAN, was physically involved in the ongoing assessment, decision making, and interventions provided during today's patient care session. I have reviewed all documentation for today's 05/03/24, entered by Speech Therapy Fellow, Sherri Rendon, and further attest that it is an accurate clinical record of today's encounter, including accurate and appropriate charges. * Albina Gray, OT - 05/03/2024 10:00 AM EST [facility] Occupational Therapy Treatment Note 05/03/24 Patient: Amalia Ann : 1975 Age: 48 y.o. Gender: female Diagnosis: No Principal Problem: There is no principal problem currently on the Problem List. Please update the Problem List and refresh. Primary Rehab (Etiologic) Diagnosis: Patient Active Problem List Diagnosis HTN (hypertension) DM (diabetes mellitus) (CMS/HCC) CVA (cerebral vascular accident) (CMS/HCC) PMH: Past Medical History: Diagnosis Date CVA (cerebral vascular accident) (CMS/HCC) DM (diabetes mellitus) ([facility]/HCC) HTN (hypertension) PSH: History reviewed. No pertinent surgical history. Allergies: is allergic to lisinopril. Precautions: Precautions Medical Precautions: Fall Risk Safety Interventions: ID band on, Bed alarm, Personal alarm on Swallow Precautions: Modified Diet (IDDS 6/2 (soft/bite sized solids/nectar thick liquids)) RUE Weight Bearing Status: Full LUE Weight Bearing Status: Full, As Tolerated RLE Weight Bearing Status: Full LLE Weight Bearing Status: Full Vitals: BP: (!) 144/86 Heart Rate: 74 Pain: Pain Assessment Pain Assessment: No/denies pain Subjective: I cook if someone is there. Procedures/Interventions: ADLs/IADLs Self Care/Home Management (ADLs) Time Entry: 30 ADL/ IADL Performed: Oral Hygiene, Toileting, Toilet Transfers, Kitchen Mobility Balance/Neuromuscular Re-Education Neuromuscular Re-Education Time Entry: 60 Pt received bed level, vitals assessed. Agreeable to participate in session. Trench Trimmer Fine utilized throughout session. Donned socks bed level. Sit EOB S level. Amb to bathroom via LBQC step through pattern with steadying A. Pt able to manage clothing and hygiene and complete toilet transfer with steadying A. Pt amb to w/c via LBQC step through pattern. Seated Oral care. Propelled self to kitchen via w/c. Pt instructed in location of items in kitchen. Pt able to retrieve items from overhead cabinets and prepare instant coffee with no more than steadying A via LBQC using LUE throughout session. Pt stood at sink to wash dishes with close S, incorporating L UE throughout task, with L knee resting on cabinet. Pt able to stand at washing machine, retrieving clothing from basket placed to R, placing clothing in top loading washing machine, then retrieve and place in front loading dryer. After rest break, pt able to stand with L UE in WBing position, retrieving clothingwith R UE and completing multiple squats. Pt then able to fold clothing to facilitate B UE integration while standing close S level. Pt did eventually amb with Step to Pattern via LBQC as she became more fatigue, no more than steadying A. One LOB noted throughout all kitchen tasks with min A to correct. Propelled self to clinic via w/c. Seated at tabletop. Pt able to simulate cutting meat with L hand holding fork with built up handle and R hand holding knife. Pt able to place cut pieces of putty into cup with L hand. Pt issued Level 1 theraputty and corresponding exercises in slovenian. Pt remained w/c level with chair alarm on, call noriega in place and needs met. OT Assessment OT Assessment OT Assessment Results: Decreased ADL status, Decreased upper extremity range of motion, Decreased upper extremity strength, Decreased endurance, Decreased safe judgment during ADL, Visual deficit, Decreased fine motor control, Decreased functional mobility, Decreased gross motor control, Decreased IADLs, Decreased trunk control for functional activities Prognosis: Good Evaluation/Treatment Tolerance: Patient tolerated treatment well Comments: Pt amb with LBQC during OT session today with initial Step through pattern then progression to Step to pattern. Pt did experience 1 minor LOB during kitchen task with turning, requiring Mauro to correct. OT Plan Plan Treatment Interventions: ADL retraining, Functional transfer training, UE strengthening/ROM, Endurance training, Patient/family training, Equipment evaluation/education, Neuromuscular reeducation, Fine motor coordination activities OT Plan: Skilled OT OT Frequency : 5-7 days per week OT Duration of Sessions: 60-90 min per session OT Treatments per day: 1 time per day OT - Evaluation Status: Complete Equipment Recommended: (TBD) Goals: Encounter Problems Encounter Problems (Active) Template: Occupational Therapy Problem: OT Membership Manager Goals Dates: Start: 04/20/24 Goal: Pt will be mod I with LB dressing Dates: Start: 04/20/24 Expected End: 05/18/24 Goal: Pt will be mod I with UB dressing Dates: Start: 04/20/24 Expected End: 05/18/24 Goal: Pt will be S with bathing Dates: Start: 04/20/24 Expected End: 05/18/24 Goal: Pt will be mod I with toileting including txfer Dates: Start: 04/20/24 Expected End: 05/18/24 Goal: Pt will perform tub txfer with LRAD with S. Dates: Start: 04/20/24 Expected End: 05/18/24 Goal: Pt will be mod I with snack/beverage retrieval at LRAD Dates: Start: 04/20/24 Expected End: 05/18/24 Description: Encounter Problems (Resolved) Template: Occupational Therapy Problem: OT Short Term Goals Dates: Start: 04/20/24 Resolved: 05/03/24 Goal: Pt will perform toileting with partial A (Resolved) Dates: Start: 04/20/24 Expected End: 04/27/24 Resolved: 05/03/24 Outcomes Date/Time User Outcome 05/03/24 1407 Albina Gray, OT Completed Goal: Pt will perform LB dressing with partial A (Resolved) Dates: Start: 04/20/24 Expected End: 04/27/24 Resolved: 05/03/24 Outcomes Date/Time User Outcome 05/03/24 1407 Albina Gray, OT Completed Goal: Pt will perform bathing with steadying A. (Resolved) Dates: Start: 04/20/24 Expected End: 04/27/24 Resolved: 05/03/24 Outcomes Date/Time User Outcome 05/03/24 1407 Albina Gray OT Completed Goal: Pt will be able to utilize L UE as an independent stabilizer during grooming tasks (Resolved) Dates: Start: 04/20/24 Expected End: 04/27/24 Resolved: 05/03/24 Outcomes Date/Time User Outcome 05/03/24 1407 Albina Gray OT Completed Goal: Pt will perform UB dressing with PETERSON, with carryover of tasha dressing technique (Resolved) Dates: Start: 04/20/24 Expected End: 04/27/24 Resolved: 05/03/24 Outcomes Date/Time User Outcome 05/03/24 1407 Albina Gray OT Completed Education Documentation ADL Training, taught by Albina Gray OT at 05/03/2024 2:08 PM. Learner: Patient Readiness: Acceptance Method: Trench Trimmer Fine, Explanation, Demonstration Response: Verbalizes Understanding, Needs Reinforcement Body Mechanics, taught by Albina Gray OT at 05/03/2024 2:08 PM. Learner: Patient Readiness: Acceptance Method: Trench Trimmer Fine, Explanation, Demonstration Response: Verbalizes Understanding, Needs Reinforcement Personal Risk Factors for Stroke, taught by Albina Gray OT at 05/03/2024 2:08 PM. Learner: Patient Readiness: Acceptance Method: Trench Trimmer Fine, Explanation, Demonstration Response: Verbalizes Understanding, Needs Reinforcement Diabetes Overview, taught by Albina Gray OT at 05/03/2024 2:08 PM. Learner: Patient Readiness: Acceptance Method: Trench Trimmer Fine, Explanation, Demonstration Response: Verbalizes Understanding, Needs Reinforcement Education Comments No comments found. Start/Stop Time OT Time Calculation OT Start Time: 1000 OT Stop Time: 1130 OT Time Calculation (min): 90 min Therapy Minutes: Occupational Therapy OT Individual: 90 * BRAD Viramontes - 05/02/2024 1:40 PM EST Images from the original note were not included. VEE PROGRESS NOTE Date: 05/02/2024 Author: BRAD Viramontes Patient ID: Amalia Ann is a 48 y.o. female : 1975 MR#: [id number] SUBJECTIVE Subjective Patient seen. Discussed patient's diabetic regimen. She is tolerating the metformin well she is currently on Lantus. She has not been on glipizide in the community. She would like to trial oral agents. She reports a good appetite/p.o. intake. She denies any history of skipping meals. ROS Constitutional :no fever chills , appetite fair, sleeping well HEENT: denies headaches Respiratory: denies shortness of breath, coughing or wheezing Cardiac: denies chest pain, palpitations, : No abd pain, no N/V. Genitourinary: denies any dysuria frequency urgency Musculoskeletal: No joint pain ,back pain Allergies Lisinopril Current Medications: amLODIPine, 5 mg, oral, Daily aspirin, 81 mg, oral, Daily atorvastatin, 80 mg, oral, Nightly clopidogreL, 75 mg, oral, Daily enoxaparin, 40 mg, subcutaneous, Daily insulin glargine, 22 Units, subcutaneous, Nightly insulin lispro, 2-12 Units, subcutaneous, TID AC metFORMIN, 500 mg, oral, BID with meals PRN medications: acetaminophen, aluminum-magnesium hydroxide-simethicone, dextrose 50%, dextrose 50%, dextrose, dextrose, glucagon injection, hydrALAZINE, magnesium hydroxide OBJECTIVE Vitals: 05/01/24 0945 05/01/24 1634 05/02/24 0324 05/02/24 0909 BP: 139/71 130/75 (!) 144/77 125/67 BP Location: Left arm Left arm Patient Position: Lying Lying Pulse: 68 70 70 67 Resp: 16 16 Temp: 36.2 ??C (97.1 ??F) 36.9 ??C (98.4 ??F) 36.7 ??C (98.1 ??F) TempSrc: Oral SpO2: 98% 97% 93% Weight: Height: PHYSICAL EXAM General: conscious alert no acute distress HEENT: pupils are equal round and reactive. extraocular movements are grossly intact lungs clear to auscultation, no wheezing or crackles noted heart regular rate and rhythm, no murmur or rubs abdomen soft nontender nondistended positive bowel sounds Musculoskeletal: No gross deformity to joints extremities without edema, erythema or calf tenderness neuro: Dysarthria improving. Left-sided weakness improving mostly to the left upper extremity. skin: no rashes or lesions. psych: mood stable appearing, good eye contact. LABS HEMATOLOGY Lab Results Component Value Date WBC 7.8 04/29/2024 HGB 12.4 04/29/2024 HCT 38.2 04/29/2024 MCV 89.7 04/29/2024 PLT 291 04/29/2024 CHEMISTRY Lab Results Component Value Date GLUCOSE 185 (H) 05/02/2024 NA 141 04/29/2024 K 4.2 04/29/2024 CO2 28 04/29/2024 CL 106 04/29/2024 BUN 11 04/29/2024 CREATININE 0.68 04/29/2024 EGFR 109 04/29/2024 CALCIUM 9.7 04/29/2024 ANIONGAP 7 04/29/2024 Imaging: No image results found. ASSESSMENT & PLAN Assessment/Plan A 48-year-old female with a PMHx of hypertension diabetes, recent small acute right pontine CVA diagnosed in March on aspirin Plavix who presented with worsening left-sided weakness new slurred speech facial droop Diagnosis new anterior right pontine stroke Patient had a recent small right pontine CVA on 03/26 and is on aspirin and Plavix. Now with new anterior right pontine stroke Suspect secondary to intrinsic atherosclerotic disease likely compensation/benefits specialist now occluded CTA shows right V4 high-grade stenosis consistent with right hemispheric stroke per neurology. MRI of the brain showed acute subacute right pontine infarct without hemorrhagic transformation. Prior stroke workup with normal ESR CRP lupus anticoagulant RF SSA, SSB a and CA, beta-2 glycoprotein, anticardiolipin antibody, LP with 3 WBCs homocystine level of 6.9 LDL of 39 A1c was 12.4. Echocardiogram on 04/16 shows normal LV systolic function EF of 55 to 65% . Does not appear that shehad a bubble study done. EKG normal sinus rhythm septal infarct age undetermined per neurology recommendations were to continue aspirin Plavix and high dose statin Per rehab team Sequela -dysarthria, left facial droop left-sided weakness left upper stronger than the left lower.Overall improving strength is lifting her left arm up overhead antigravity Passed swallow evaluation Diabetes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 Duque SLP - 04/30/2024 2:51 PM EST I attest that I, Amber Duque M.S.,[facility]-LOGISTICIAN, was physically involved in the ongoing assessment, decision making, and interventions provided during today's patient care session. I have reviewed all documentation for today's 04/30/24, entered by Speech Therapy Fellow, Shayy Meyre, and further attest that it is an accurate clinical record of today's encounter, including accurate and appropriate charges. * BRAD Jensen - 04/30/2024 8:37 AM EST Images from the original note were not included. [facility] Daily Progress Note Patient name: Amalia Ann : 1975 SUBJECTIVE: Patient seen and examined at bedside today. No acute events overnight. Denies headaches, dizziness,shortness of breath, chest pain, nausea, constipation, and pain. No new concerns today. She reportsthat therapy was doing well. Patient was seen transferring from to bed with 1 assist. OBJECTIVE: Vitals: 04/29/24 0838 04/29/24 1415 04/30/24 0100 04/30/24 0729 BP: 132/79 (!) 140/68 (!) 152/80 130/80 BP Location: Left arm Patient Position: Lying Pulse: 67 68 63 67 Resp: 16 18 Temp: 36.7 ??C (98 ??F) 36.7 ??C (98 ??F) TempSrc: Oral SpO2: 100% 99% 97% Weight: Height: Physical Examination: General: Alert, in no acute cardiopulmonary distress. Mental Status: Oriented to person, place and time. Normal affect. Head: Normocephalic. Eyes: Extraocular muscles grossly intact. Ear, Nose and Throat: Oropharynx clear, mucous membranes moist. Ears and nose without masses, lesions or deformities. Neck: Supple, Trachea midline. Respiratory: Clear to auscultation and percussion. No wheezing, rales or rhonchi. Cardiovascular: Heart sounds normal. No thrills. Regular rate and rhythm, no murmurs, rubs or gallops. Gastrointestinal: Abdomen soft, non-tender, non-distended. Normal bowel sounds. Neurologic: Cranial nerves II-XII grossly intact. Moves all extremities spontaneously. Sensation intact bilaterally. +left hemiparesis Skin: No rashes or lesions. No petechiae or purpura. No edema. Musculoskeletal: No cyanosis or clubbing. No gross deformities. Normal range of motion. Strength 4/5 left shoulder abduction, 4/5 left elbow flexion, 3/5 left wrist extension, 3/5 left finger flexion. Antigravity strength left hip flexion and knee extension. Left dorsiflexion strength 1/5. CURRENT INPATIENT MEDICATIONS: Current Facility-Administered Medications: acetaminophen (TYLENOL) tablet 650 mg, 650 mg, oral, q6h PRN, BRAD Hicks aluminum-magnesium hydroxide-simethicone (MAALOX) 200-200-20 mg/5 mL suspension 30 mL, 30 mL, oral,q4h PRN, BRAD Hicks, 30 mL at 04/23/24 0530 amLODIPine (NORVASC) tablet 5 mg, 5 mg, oral, Daily, Leah Philippe NP, 5 mg at 828 aspirin EC tablet 81 mg, 81 mg, oral, Daily, BRAD Hicks, 81 mg at 04/30/24 0828 atorvastatin (LIPITOR) tablet 80 mg, 80 mg, oral, Nightly, BRAD Hicks, 80 mg at 04/29/24 2101 clopidogreL (PLAVIX) tablet 75 mg, 75 mg, oral, Daily, BRAD Hicks, 75 mg at 04/30/24 0828 dextrose (D50W) 50% injection 12.5 g, 12.5 g, intravenous, q15 min PRN, BRAD Hicks dextrose (D50W) 50% injection 25 g, 25 g, intravenous, q15 min PRN, BRAD Hicks dextrose 15 gram/60 mL oral solution 15 g, 15 g, oral, q15 min PRN, BRAD Hicks dextrose 15 gram/60 mL oral solution 30 g, 30 g, oral, q15 min PRN, BRAD Hicks docusate sodium (COLACE) capsule 100 mg, 100 mg, oral, BID, BRAD Hicks, 100 mg at 04/30/24 0828 enoxaparin (LOVENOX) injection 40 mg, 40 mg, subcutaneous, Daily, BRAD Hicks, 40 mg at 04/30/24 0828 Glucagon HCl (rDNA) injection 1 mg, 1 mg, intramuscular, Once PRN, BRAD Hicks hydrALAZINE (APRESOLINE) tablet 10 mg, 10 mg, oral, TID PRN, BRAD Viramontes insulin glargine (LANTUS) injection 22 Units, 22 Units, subcutaneous, Nightly, BRAD Hicks, 22 Units at 04/29/24 2100 insulin lispro injection 2-12 Units, 2-12 Units, subcutaneous, TID AC, BRAD Viramontes, 6 Units at 04/28/24 1637 lisinopriL (PRINIVIL,ZESTRIL) tablet 20 mg, 20 mg, oral, Daily, BRAD Viramontes, 20 mg at 04/30/24 0828 magnesium hydroxide (MILK OF MAGNESIA) 400 mg/5 mL suspension 30 mL, 30 mL, oral, Daily PRN, BRAD Rojas, 30 mL at 04/23/24 0529 metFORMIN (GLUCOPHAGE) tablet 500 mg, 500 mg, oral, BID with meals, Leah Philippe, JASON, 500 mg at 04/30/24 0828 senna (SENOKOT) tablet 17.2 mg, 2 tablet, oral, Nightly, Neida Bailey DO, 17.2 mg at 04/29/24 210 LABS: Lab Results Component Value Date WBC 7.8 04/29/2024 RBC 4.30 04/29/2024 HGB 12.4 04/29/2024 HCT 38.2 04/29/2024 MCV 89.7 04/29/2024 MCHC 32.5 04/29/2024 RDW 12.6 04/29/2024 PLT 291 04/29/2024 MPV 12.0 (H) 04/29/2024 NRBC 0.0 04/29/2024 DIFF Lab Results Component Value Date LYMPHOPCT 12.8 04/20/2024 NEUTROABS 7.05 (H) 04/20/2024 LYMPHSABS 1.16 04/20/2024 MONOABS 0.69 04/20/2024 EOSABS 0.08 04/20/2024 BASOSABS 0.02 04/20/2024 IMMGRANABS 0.03 04/20/2024 RETIC No results found for: RETIC , RETICCTPCT Lab Results Component Value Date NA 141 04/29/2024 K 4.2 04/29/2024 CL 106 04/29/2024 CO2 28 04/29/2024 GLUCOSE 110 (H) 04/30/2024 BUN 11 04/29/2024 CREATININE 0.68 04/29/2024 CALCIUM 9.7 04/29/2024 PROT 6.3 04/20/2024 ALBUMIN 3.2 04/20/2024 BILITOT 0.6 04/20/2024 AST 27 04/20/2024 ALT 32 04/20/2024 ALKPHOS 89 04/20/2024 EGFR 109 04/29/2024 IMPRESSION & PLAN: #Impaired mobility and self care -secondary to CVA -continue PT, OT, LOGISTICIAN, and nursing care #Acute anterior right pontine stroke #Left hemiparesis #Dysarthria -Aspirin 81mg daily -Plavix 75mg daily -Atorvastatin 80mg nightly #Dysphagia -IDDSI 6 diet with IDDSI 2 mildly thick liquids -continue LOGISTICIAN #Hypertension -Amlodipine 5mg daily started 04/28 -Lisinopril 10mg daily increased to 20mg daily on 04/25 #Diabetes mellitus type 2 -noncompliant with treatment prior to admission -needs education -needs glucometer and supplies on discharge -ISS -Lantus 22 units QHS -Metformin 500mg BID started 04/28 #Bowel management -Colace 100mg BID -Senna 2 tabs QHS #DVT prophylaxis: Lovenox 40mg daily Associated attestation - Neida Bailey DO - 04/30/2024 3:42 PM EST Agree with progress note, assessment, and plan as documented by PA today. * Roxanne Gilmore OT - 04/30/2024 8:30 AM EST [facility] Occupational Therapy Treatment Note 04/30/24 Patient: Amalia Ann : 1975 Age: 48 y.o. Gender: female Diagnosis: No Principal Problem: There is no principal problem currently on the Problem List. Please update the Problem List and refresh. Primary Rehab (Etiologic) Diagnosis: Patient Active Problem List Diagnosis HTN (hypertension) DM (diabetes mellitus) (CMS/HCC) CVA (cerebral vascular accident) (CMS/HCC) PMH: Past Medical History: Diagnosis Date CVA (cerebral vascular accident) (CMS/HCC) DM (diabetes mellitus) (CMS/HCC) HTN (hypertension) PSH: History reviewed. No pertinent surgical history. Allergies: has No Known Allergies. Precautions: Precautions Medical Precautions: Fall Risk Safety Interventions: ID band on, Bed alarm, Personal alarm on Swallow Precautions: Modified Diet (IDDS 6/2 (soft/bite sized solids/nectar thick liquids)) RUE Weight Bearing Status: Full LUE Weight Bearing Status: Full, As Tolerated RLE Weight Bearing Status: Full LLE Weight Bearing Status: Full Vitals: BP: 130/80 Heart Rate: 67 SpO2: 97 % Pain: Pain Assessment Pain Assessment: No/denies pain Subjective: I'll try Procedures/Interventions: ADLs/IADLs Self Care/Home Management (ADLs) Time Entry: 30 ADL/ IADL Performed: Oral Hygiene, Eating, Dressing Pt in bed upon arrival for therapy session, pleasantly willing to participate. Supine to sit EOB performed with sup. Sup to don shirt. Min cues provided to follow tasha dressing techinque, steadying to hike pants. Pt able to perform figure 4 position to don B socks and sneakers. Additional time required to fasten shoe laces d/t decreased L UE FMC. With encouragement, pt able to open cream cheese containers with L UE while stabilizing with R UE. Pt further participated in spreading cream cheese with L UE, min difficulty. Pt remained seated in w/c with alarm on and call noriega within reach. Balance/Neuromuscular Re-Education Neuromuscular Re-Education Time Entry: 60 Balance/Neuromuscular Re-Education Activity 1: Pt completed UBE while standing as prep activity to challenge B UE coordination and standing balance. Pt completed 3 mins standing x 2 trials with seated rest break between. Balance/Neuromuscular Re-Education Activity 2: Pt participated in C activity involving removal/replacement of small pom poms to connect 4 board. Pt utilized tongs and progressed to tweezers with L UE only. Pt with c/o increased fatigue with sustained lateral pinch. Following rest break, pt progressed to completing task while standing with pom poms placed across midline. Balance/Neuromuscular Re-Education Activity 3: Pt completed grasp/release X mass reps of large items progressing to smaller items. Mod verbal/tactile cues required to activate quad, overall steadyingA for standing balance.Min cues to visually attend to L UE. Pt able to progress to smallest object of a small peg with increased time. Balance/Neuromuscular Re-Education Activity 4: Pt completed standing push ups to increase WBing through L UE and challenge standing balance. Pt completed 10 reps x 2 sets, min cues to activate quad activation in L LE. Balance/Neuromuscular Re-Education Activity 5: Reviewed signs/symptoms of stroke with pt. Pt able to recall 5/6 s/s. Pt verbalized to call 911 if s/s are present. OT Assessment OT Assessment OT Assessment Results: Decreased ADL status, Decreased upper extremity range of motion, Decreased upper extremity strength, Decreased endurance, Decreased safe judgment during ADL, Visual deficit, Decreased fine motor control, Decreased functional mobility, Decreased gross motor control, Decreased IADLs, Decreased trunk control for functional activities Prognosis: Good Evaluation/Treatment Tolerance: Patient tolerated treatment well OT Plan Plan Treatment Interventions: ADL retraining, Functional transfer training, UE strengthening/ROM, Endurance training, Patient/family training, Equipment evaluation/education, Neuromuscular reeducation, Fine motor coordination activities OT Plan: Skilled OT OT Frequency : 5-7 days per week OT Duration of Sessions: 60-90 min per session OT Treatments per day: 1 time per day OT - Evaluation Status: Complete Equipment Recommended: (TBD) Goals: Encounter Problems Encounter Problems (Active) Template: Occupational Therapy Problem: OT Membership Manager Goals Dates: Start: 04/20/24 Goal: Pt will be mod I with LB dressing Dates: Start: 04/20/24 Expected End: 05/18/24 Goal: Pt will be mod I with UB dressing Dates: Start: 04/20/24 Expected End: 05/18/24 Goal: Pt will be S with bathing Dates: Start: 04/20/24 Expected End: 05/18/24 Goal: Pt will be mod I with toileting including txfer Dates: Start: 04/20/24 Expected End: 05/18/24 Goal: Pt will perform tub txfer with LRAD with S. Dates: Start: 04/20/24 Expected End: 05/18/24 Goal: Pt will be mod I with snack/beverage retrieval at LRAD Dates: Start: 04/20/24 Expected End: 05/18/24 Description: Problem: OT Short Term Goals Dates: Start: 04/20/24 Goal: Pt will perform toileting with partial A Dates: Start: 04/20/24 Expected End: 04/27/24 Goal: Pt will perform LB dressing with partial A Dates: Start: 04/20/24 Expected End: 04/27/24 Goal: Pt will perform bathing with steadying A. Dates: Start: 04/20/24 Expected End: 04/27/24 Goal: Pt will be able to utilize L UE as an independent stabilizer during grooming tasks Dates: Start: 04/20/24 Expected End: 04/27/24 Goal: Pt will perform UB dressing with PETERSON, with carryover of tasha dressing technique Dates: Start: 04/20/24 Expected End: 04/27/24 Encounter Problems (Resolved) There are no resolved problems. Education Documentation No documentation found. Education Comments No comments found. Start/Stop Time OT Time Calculation OT Start Time: 0700 OT Stop Time: 829 OT Time Calculation (min): 90 min Therapy Minutes: Occupational Therapy OT Individual: 90 * Neida Bailey DO - 04/29/2024 7:08 PM EST Images from the original note were not included. [facility] Daily Progress Note Patient name: Amalia Ann : 1975 SUBJECTIVE: Patient seen and examined at bedside today. No acute events overnight. Denies headaches, dizziness,shortness of breath, chest pain, nausea, constipation, and pain. No new concerns today. Participating in therapies: pt ambulating x40ft around tasha-bar with partial A x1 OBJECTIVE: Vitals: 04/28/249 04/28/24 2043 04/29/24 0421 04/29/24 0838 BP: (!) 149/84 (!) 149/84 (!) 146/67 132/79 BP Location: Left arm Patient Position: Lying Pulse: 61 66 67 Resp: 16 Temp: 36.9 ??C (98.4 ??F) TempSrc: Oral SpO2: 99% 99% Weight: Height: Physical Examination: General: Alert, in no acute cardiopulmonary distress. Mental Status: Oriented to person, place and time. Normal affect. Head: Normocephalic. Eyes: Extraocular muscles grossly intact. Ear, Nose and Throat: Oropharynx clear, mucous membranes moist. Ears and nose without masses, lesions or deformities. Neck: Supple, Trachea midline. Respiratory: Clear to auscultation and percussion. No wheezing, rales or rhonchi. Cardiovascular: Heart sounds normal. No thrills. Regular rate and rhythm, no murmurs, rubs or gallops. Gastrointestinal: Abdomen soft, non-tender, non-distended. Normal bowel sounds. Neurologic: Cranial nerves II-XII grossly intact. Moves all extremities spontaneously. Sensation intact bilaterally. +left hemiparesis Skin: No rashes or lesions. No petechiae or purpura. No edema. Musculoskeletal: No cyanosis or clubbing. No gross deformities. Normal range of motion. Strength 4/5 left shoulder abduction, 4/5 left elbow flexion, 3/5 left wrist extension, 3/5 left finger flexion. Antigravity strength left hip flexion and knee extension. Left dorsiflexion strength 1/5. CURRENT INPATIENT MEDICATIONS: Current Facility-Administered Medications: acetaminophen (TYLENOL) tablet 650 mg, 650 mg, oral, q6h PRN, BRAD Hicks aluminum-magnesium hydroxide-simethicone (MAALOX) 200-200-20 mg/5 mL suspension 30 mL, 30 mL, oral,q4h PRN, BRAD Hicks, 30 mL at 04/23/24 0530 amLODIPine (NORVASC) tablet 5 mg, 5 mg, oral, Daily, Leah Philippe, VP SCIENTIFIC, 5 mg at aspirin EC tablet 81 mg, 81 mg, oral, Daily, BRAD Hicks, 81 mg at 04/29/24818 atorvastatin (LIPITOR) tablet 80 mg, 80 mg, oral, Nightly, BRAD Hicks, 80 mg at 04/28/242041 clopidogreL (PLAVIX) tablet 75 mg, 75 mg, oral, Daily, BRAD Hicks, 75 mg at 04/29/24 08 dextrose (D50W) 50% injection 12.5 g, 12.5 g, intravenous, q15 min PRN, BRAD Hicks dextrose (D50W) 50% injection 25 g, 25 g, intravenous, q15 min PRN, BRAD Hicks dextrose 15 gram/60 mL oral solution 15 g, 15 g, oral, q15 min PRN, BRAD Hicks dextrose 15 gram/60 mL oral solution 30 g, 30 g, oral, q15 min PRN, BRAD Hicks docusate sodium (COLACE) capsule 100 mg, 100 mg, oral, BID, BRAD Hicks, 100 mg at 04/29/24818 enoxaparin (LOVENOX) injection 40 mg, 40 mg, subcutaneous, Daily, BRAD Hicks, 40 mg at 04/29/24818 Glucagon HCl (rDNA) injection 1 mg, 1 mg, intramuscular, Once PRN, BRAD Hicks hydrALAZINE (APRESOLINE) tablet 10 mg, 10 mg, oral, TID PRN, BRAD Viramontes insulin glargine (LANTUS) injection 22 Units, 22 Units, subcutaneous, Nightly, BRAD Hicks, 22 Units at 04/28/242043 insulin lispro injection 2-12 Units, 2-12 Units, subcutaneous, TID AC, BRAD Viramontes, 6 Units at 04/28/24 163 lisinopriL (PRINIVIL,ZESTRIL) tablet 20 mg, 20 mg, oral, Daily, BRAD Viramontes, 20 mg at 04/29/24818 magnesium hydroxide (MILK OF MAGNESIA) 400 mg/5 mL suspension 30 mL, 30 mL, oral, Daily PRN, BRAD Rojas, 30 mL at 04/23/24 0529 metFORMIN (GLUCOPHAGE) tablet 500 mg, 500 mg, oral, BID with meals, Leah Philippe NP, 500 mg at 04/29/24 1622 senna (SENOKOT) tablet 17.2 mg, 2 tablet, oral, Nightly, Neida Bailey DO, 17.2 mg at 04/28/242042 LABS: Lab Results Component Value Date WBC 7.8 04/29/2024 RBC 4.30 04/29/2024 HGB 12.4 04/29/2024 HCT 38.2 04/29/2024 MCV 89.7 04/29/2024 MCHC 32.5 04/29/2024 RDW 12.6 04/29/2024 PLT 291 04/29/2024 MPV 12.0 (H) 04/29/2024 NRBC 0.0 04/29/2024 DIFF Lab Results Component Value Date LYMPHOPCT 12.8 04/20/2024 NEUTROABS 7.05 (H) 04/20/2024 LYMPHSABS 1.16 04/20/2024 MONOABS 0.69 04/20/2024 EOSABS 0.08 04/20/2024 BASOSABS 0.02 04/20/2024 IMMGRANABS 0.03 04/20/2024 RETIC No results found for: RETIC , RETICCTPCT Lab Results Component Value Date NA 141 04/29/2024 K 4.2 04/29/2024 CL 106 04/29/2024 CO2 28 04/29/2024 GLUCOSE 143 (H) 04/29/2024 BUN 11 04/29/2024 CREATININE 0.68 04/29/2024 CALCIUM 9.7 04/29/2024 PROT 6.3 04/20/2024 ALBUMIN 3.2 04/20/2024 BILITOT 0.6 04/20/2024 AST 27 04/20/2024 ALT 32 04/20/2024 ALKPHOS 89 04/20/2024 EGFR 109 04/29/2024 IMPRESSION & PLAN: #Impaired mobility and self care -secondary to CVA -continue PT, OT, LOGISTICIAN, and nursing care #Acute anterior right pontine stroke #Left hemiparesis #Dysarthria -Aspirin 81mg daily -Plavix 75mg daily -Atorvastatin 80mg nightly #Dysphagia -IDDSI 6 diet with IDDSI 2 mildly thick liquids -continue LOGISTICIAN #Hypertension -Amlodipine 5mg daily started 04/28 -Lisinopril 10mg daily increased to 20mg daily on 04/25 #Diabetes mellitus type 2 -noncompliant with treatment prior to admission -needs education -needs glucometer and supplies on discharge -ISS -Lantus 22 units QHS -Metformin 500mg BID started 04/28 #Bowel management -Colace 100mg BID -Senna 2 tabs QHS #DVT prophylaxis: Lovenox 40mg daily * Jen Larios RN - 04/29/2024 5:08 PM EST Goals: Clinical Goals for the Shift: To stay free from falls. Identify possible barriers to meeting goals/advancing plan of care: weakness Stability of the patient: Moderately Stable - Low risk of patient condition declining or worsening End of Shift Summary: working toward goals * MARIE Shrestha - 04/29/2024 2:45 PM EST Speech Language Pathology Speech Language Pathology Treatment Subjective LOGISTICIAN Start Time: 1445 LOGISTICIAN Stop Time: 1530 LOGISTICIAN Time Calculation (min): 45 min Subjective: 'I feel tired from earlier'. president practicing urologist Sierra #[id number] utilized. Objective General Visit Info General Family/Caregiver Present: No Treatment Cognitive Skills Therapeutic Interventions Cognitive Skills Direct Contact Time Entry: 45 Sequencing: Pt assigned with completing mod level sequencing tasks related to daily activities for HW. Will review tomorrow with Pt. Attention/Concentration: Pt tasked with sorting and stating PT/OT recommendations from therapy logs: mod to max verbal cues required. Pt able to demonstrate increased awareness/insight w/o sorting task. 5 word scrambled sentences task: 100% accuracy given min repetitions. Other Cognitive Skills Activity: Discussion re: insight into deficits in each therapy. Pt indp located therapy logs and able to recall general recommendations from PT/OT. Noted to perseverate on 'increased effort' and 'try hard'. Required verbal cues for more detailed recommendations. Discussed various scenarios to use recommendations given mod to max verbal cues and modifications for d/c at home. Assessment/Plan LOGISTICIAN Assessment Evaluation/Treatment Tolerance: Patient tolerated treatment well Plan Treatment/Interventions: Cognitive linguistic functioning LOGISTICIAN Plan: Skilled LOGISTICIAN LOGISTICIAN Frequency: 5-7 days per week LOGISTICIAN Duration of Sessions: 45-60 min per session LOGISTICIAN Treatments per day: 1 time per day LOGISTICIAN - Next Appointment: 04/30/24 Goals Encounter Problems Encounter Problems (Active) Template: Speech Therapy Problem: Cognitive/Linguistics Dates: Start: 04/20/24 Goal: Patient will participate in further assessment of cognitive-linguistic skills Dates: Start: 04/20/24 Expected End: 05/04/24 Description: Outcomes Date/Time User Outcome 04/25/24 1116 MARIE Arroyo Progressing Goal: Patient will identify and utilize problem-solving intervention for task completion at 90% accuracy given min A Dates: Start: 04/20/24 Expected End: 05/04/24 Description: Outcomes Date/Time User Outcome 04/23/24 1253 MARIE Shrestha Progressing Goal: Patient will complete simple calculations for time/money management at 90% accuracy given Mauro Dates: Start: 04/20/24 Expected End: 05/04/24 Description: Outcomes Date/Time User Outcome 04/25/24 1116 MARIE Arroyo Progressing Goal: Pt will improve intelligibility at the sentence/conversational level to baseline given min A for speech strategies. (Resolved) Dates: Start: 04/21/24 Expected End: 04/28/24 Resolved: 04/26/24 Description: Outcomes Date/Time User Outcome 04/26/24 1127 MARIE Arroyo Completed Goal: Pt will improve delayed recall of functional information given min A for encoding and min A for retrieval - 90% accuracy Dates: Start: 04/22/24 Expected End: 04/29/24 Description: Outcomes Date/Time User Outcome 04/26/24 1128 MARIE Arroyo Progressing Goal: Pt will complete basic to mod level auditory/visual attention tasks - 90% accuracy given mod A. Dates: Start: 04/23/24 Expected End: 04/30/24 Description: Outcomes Date/Time User Outcome 04/29/24 1728 MARIE Shrestha Progressing Goal: Pt will participate in sequencing/direction following tasks related to functional/ADL tasks given min A- 90% accuracy. Dates: Start: 04/24/24 Expected End: 05/01/24 Description: Outcomes Date/Time User Outcome 04/24/24 1416 MARIE Sherstha Not Progressing Goal: Pt will improve intelligibility at the paragraph/conversational level to baseline and independent w/ use of strategies Dates: Start: 04/26/24 Expected End: 05/03/24 Description: Outcomes Date/Time User Outcome 04/29/24 1728 MARIE Shrestha Progressing Encounter Problems (Resolved) Template: Speech Therapy Problem: Swallowing Dates: Start: 04/20/24 Resolved: 04/23/24 Goal: Patient will tolerate the least restrictive diet consistency to allow for safe consumption ofdaily meals (Resolved) Dates: Start: 04/20/24 Expected End: 05/04/24 Resolved: 04/23/24 Description: Outcomes Date/Time User Outcome 04/23/24 1253 MARIE Shrestha Completed Goal: Patient will demonstrate safe swallowing Intervention/techniques (Resolved) Dates: Start: 04/20/24 Expected End: 05/04/24 Resolved: 04/23/24 Description: Outcomes Date/Time User Outcome 04/23/24 1253 MARIE Shrestha Completed Education Documentation Cognition, taught by MARIE Shrestha at 04/29/2024 2:45 PM. Learner: Patient Readiness: Acceptance Method: Explanation, Trench Trimmer Fine Response: Verbalizes Understanding Education Comments No comments found. Associated attestation - Jen Duque SLP - 04/29/2024 10:05 PM EST I attest that I, Amber Duque M.S.,[facility]-LOGISTICIAN, was physically involved in the ongoing assessment, decision making, and interventions provided during today's patient care session. I have reviewed all documentation for today's 04/29/24, entered by Speech Therapy Fellow, Shayy Meyer, and further attest that it is an accurate clinical record of today's encounter, including accurate and appropriate charges. * Elzbieta Garcia, PT - 04/29/2024 12:46 PM EST [facility] Physical Therapy Treatment Note 04/29/2024 Patient: Amalia Ann : 1975 Age: 48 y.o. Gender: female Primary Language: Barbadian Diagnosis: No Principal Problem: There is no principal problem currently on the Problem List. Please update the Problem List and refresh. Past Medical History: Diagnosis Date CVA (cerebral vascular accident) (CMS/HCC) DM (diabetes mellitus) (CMS/HCC) HTN (hypertension) History reviewed. No pertinent surgical history. Allergies: has No Known Allergies. Precautions: Medical Precautions: Fall Risk Safety Interventions: ID band on, Bed alarm, Personal alarm on Swallow Precautions: Modified Diet (IDDS 6/2 (soft/bite sized solids/nectar thick liquids)) RUE Weight Bearing Status: Full LUE Weight Bearing Status: Full, As Tolerated RLE Weight Bearing Status: Full LLE Weight Bearing Status: Full NURSING RECOMMENDATIONS Bed Mobility: Transfers: Ambulation: SUBJECTIVE Pt report: My leg is tired Pain: 0/10 OBJECTIVE That was better General Observation: Supine in bed agreeable to participating in therapy session. [id number], [id number] video automatic embroidery machine tender used. Procedure/Treatment: Neuromuscular Reeducation: Balance/Neuromuscular Re-Education Neuromuscular Re-Education Time Entry: 90 Patient Bed agreeable to participating in therapy session. Pt needing SUP for sit to supine,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 bilaterally. +left hemiparesis Skin: No rashes or lesions. No petechiae or purpura. No edema. Musculoskeletal: No cyanosis or clubbing. No gross deformities. Normal range of motion. Strength 4/5 left shoulder abduction, 4/5 left elbow flexion, 3/5 left wrist extension, 3/5 left finger flexion. Antigravity strength left hip flexion and knee extension. Left dorsiflexion strength 1/5. CURRENT INPATIENT MEDICATIONS: Current Facility-Administered Medications: acetaminophen (TYLENOL) tablet 650 mg, 650 mg, oral, q6h PRN, BRAD Hicks aluminum-magnesium hydroxide-simethicone (MAALOX) 200-200-20 mg/5 mL suspension 30 mL, 30 mL, oral,q4h PRN, BRAD Hicks, 30 mL at 04/23/24 0530 aspirin EC tablet 81 mg, 81 mg, oral, Daily, BRAD Hicks, 81 mg at 04/24/24 0835 atorvastatin (LIPITOR) tablet 80 mg, 80 mg, oral, Nightly, BRAD Hicks, 80 mg at 04/23/24 202 clopidogreL (PLAVIX) tablet 75 mg, 75 mg, oral, Daily, BRAD Hicks, 75 mg at 04/24/24 0835 dextrose (D50W) 50% injection 12.5 g, 12.5 g, intravenous, q15 min PRN, BRAD Hicks dextrose (D50W) 50% injection 25 g, 25 g, intravenous, q15 min PRN, BRAD Hicks dextrose 15 gram/60 mL oral solution 15 g, 15 g, oral, q15 min PRN, BRAD Hicks dextrose 15 gram/60 mL oral solution 30 g, 30 g, oral, q15 min PRN, BRAD Hicks docusate sodium (COLACE) capsule 100 mg, 100 mg, oral, BID, BRAD Hicks, 100 mg at 04/24/24 0835 enoxaparin (LOVENOX) injection 40 mg, 40 mg, subcutaneous, Daily, BRAD Hicks, 40 mg at 04/24/24 0835 Glucagon HCl (rDNA) injection 1 mg, 1 mg, intramuscular, Once PRN, BRAD Hicks hydrALAZINE (APRESOLINE) tablet 10 mg, 10 mg, oral, TID PRN, BRAD Viramontes insulin glargine (LANTUS) injection 22 Units, 22 Units, subcutaneous, Nightly, BRAD Hicks, 22 Units at 04/23/242023 insulin lispro injection 2-12 Units, 2-12 Units, subcutaneous, TID AC, BRAD Viramontes, 6 Units at 04/23/24 1622 [START ON 04/25/2024] lisinopriL (PRINIVIL,ZESTRIL) tablet 20 mg, 20 mg, oral, Daily, BRAD Viramontes magnesium hydroxide (MILK OF MAGNESIA) 400 mg/5 mL suspension 30 mL, 30 mL, oral, Daily PRN, BRAD Rojas, 30 mL at 04/23/24 0529 LABS: Lab Results Component Value Date WBC 9.0 04/20/2024 RBC 4.60 04/20/2024 HGB 13.5 04/20/2024 HCT 41.1 04/20/2024 MCV 89.0 04/20/2024 MCHC 32.8 04/20/2024 RDW 12.7 04/20/2024 PLT 310 04/20/2024 MPV 11.8 (H) 04/20/2024 NRBC 0.0 04/20/2024 DIFF Lab Results Component Value Date LYMPHOPCT 12.8 04/20/2024 NEUTROABS 7.05 (H) 04/20/2024 LYMPHSABS 1.16 04/20/2024 MONOABS 0.69 04/20/2024 EOSABS 0.08 04/20/2024 BASOSABS 0.02 04/20/2024 IMMGRANABS 0.03 04/20/2024 RETIC No results found for: RETIC , RETICCTPCT Lab Results Component Value Date NA 140 04/20/2024 K 3.8 04/20/2024 CL 106 04/20/2024 CO2 28 04/20/2024 GLUCOSE 129 (H) 04/24/2024 BUN 16 04/20/2024 CREATININE 0.70 04/20/2024 CALCIUM 9.6 04/20/2024 PROT 6.3 04/20/2024 ALBUMIN 3.2 04/20/2024 BILITOT 0.6 04/20/2024 AST 27 04/20/2024 ALT 32 04/20/2024 ALKPHOS 89 04/20/2024 EGFR 108 04/20/2024 IMPRESSION & PLAN: #Impaired mobility and self care -secondary to CVA -continue PT, OT, LOGISTICIAN, and nursing care #Acute anterior right pontine stroke #Left hemiparesis #Dysarthria -Aspirin 81mg daily -Plavix 75mg daily -Atorvastatin 80mg nightly #Dysphagia -IDDSI 6 diet with IDDSI 2 mildly thick liquids -continue LOGISTICIAN #Hypertension -Lisinopril 10mg daily increased to 20mg daily on 04/25 #Diabetes mellitus type 2 -noncompliant with treatment prior to admission -needs education -needs glucometer and supplies on dicharge -ISS -Lantus 22 units QHS #Bowel management -Colace 100mg BID -last BM 04/23 after MOM -Senna 2 tabs QHS started 04/24 #DVT prophylaxis: Lovenox 40mg daily * Joshua Tellez OT - 04/24/2024 8:30 AM EST [facility] Occupational Therapy Treatment Note 04/24/24 Patient: Amalia Ann : 1975 Age: 48 y.o. Gender: female Diagnosis: No Principal Problem: There is no principal problem currently on the Problem List. Please update the Problem List and refresh. Primary Rehab (Etiologic) Diagnosis: There is no problem list on file for this patient. PMH: Past Medical History: Diagnosis Date CVA (cerebral vascular accident) ([facility]) DM (diabetes mellitus) ([facility]) HTN (hypertension) PSH: History reviewed. No pertinent surgical history. Allergies: has No Known Allergies. Precautions: Precautions Medical Precautions: Fall Risk Safety Interventions: ID band on, Bed alarm, Personal alarm on RUE Weight Bearing Status: Full LUE Weight Bearing Status: Full, As Tolerated RLE Weight Bearing Status: Full LLE Weight Bearing Status: Full Vitals: BP: 126/74 Heart Rate: 70 SpO2: 96 % Pain: none reported. Subjective: I don't feel like I'm leaning. Procedures/Interventions: ADLs/IADLs Self Care/Home Management (ADLs) Time Entry: 45 Pt elevated supine upon arrival. Agreeable to session. Vitals assessed. Barbadian <> [place] Islander video soup person used throughout session. Elevated supine > EOB with S. Pt stand pivot txfer from EOB > w/c with partial A. Pt seated in w/c at sink to engage in oral hygiene. Pt completing oral hygiene with S and cues for using L UE as a gross assist. Pt seated in w/c to engage in sponge bathing. Pt doffing Shreyas and bathing UB bathing with S and cues for use of L UE throughout. Pt completingLB bathing with partial A for balance during stand to bathe buttocks. Pt seated in w/c to engage indressing. Pt using tasha dressing technique for UB with S. Pt threading LB clothing and standing to hike pants with partial A for balance. Pt displaying decreased awareness of poor balance and laterallean during stand. Pt donning socks and sneakers with S and increased time for tying laces. Pt using figure four techniques to don socks and sneakers. Pt demoing ability to tie sneakers with B UE integration. Balance/Neuromuscular Re-Education Neuromuscular Re-Education Time Entry: 45 Pt self-propelling w/c from room > gym with S and cues for obstacle navigation. Requesting pt toverbalize steps to txfer, pt requiring cues for accurate steps of txfer. Pt stand pivot txfer from w/c > EOM with mod A with cues for slowing down and taking steps prior to sitting on EOM. Pt requiring assist for controlled decent to sit on EOM. Pt with decrease insight to performance. Pt engaged in static standing in front of mirror for visual feedback. Pt standing in front of mirror with partial A and provided cues for correcting lateral lean and postural way during stand. Pt reporting being unaware of swaying while standing. Pt engaged in standing at whiteboard to remove squigs and sortby color. Pt tasked with using L UE throughout. Pt demoing shoulder flexion/extension and abduction/adduction throughout. Pt requiring cues for grasp and release throughout. Pt with mod LOB throughout requiring min-max assist to correct balance throughout. Pt provided rest breaks throughout. Pt tasked with erasing white board with L UE. Pt demoing ability to wipe board during shoulder extension. However, noting increased difficulty with shoulder flexion. Pt provided LIME to wipe board. Pt requiring min-max assist for balance throughout standing. Pt taking a seated rest break in w/c. Pt stand pivot txfer from w/c > EOM with mod A. While seated EOM pt engaged in mass reps of shoulder flexion/extension and elbow flexion/extension with dowel. Pt tasked with leading with L UE, pt demoing ability. Pt able to min resist during shoulder extension and elbow extension. Pt engaged in completing functional task board while seated EOM on tabletop (buckle, buttons, zipper, and shoe laces). Pt completing 4/4 task boards with min verbal cues and increased time. Pt EOM > w/c with mod A. Pt self-propelling w/c from gym > room with S. Pt stand pivot txfer from w/c > EOB with partial A. PtEOB > supine with S. Pt elevated supine with call noriega in reach and bed alarm on. All needs met. OT Assessment OT Assessment OT Assessment Results: Decreased ADL status, Decreased upper extremity range of motion, Decreased upper extremity strength, Decreased endurance, Decreased safe judgment during ADL, Visual deficit, Decreased fine motor control, Decreased functional mobility, Decreased gross motor control, Decreased IADLs, Decreased trunk control for functional activities Prognosis: Good Evaluation/Treatment Tolerance: Patient tolerated treatment well Comments: (Pt tolerating 90 min session well. Pt varying from partial/max A for txfers throughout despite cueing and education prior to txfer. Pt barriers include limited insight into deficits duringstanding activities, decreased standing balance, and limited awareness of postural instability. Pt cued throughout for slowing down. Pt provided cues for reaching back prior to sitting.) OT Plan Plan Treatment Interventions: ADL retraining, Functional transfer training, UE strengthening/ROM, Endurance training, Patient/family training, Equipment evaluation/education, Neuromuscular reeducation, Fine motor coordination activities OT Plan: Skilled OT OT Frequency : 5-7 days per week OT Duration of Sessions: 60-90 min per session OT Treatments per day: 1 time per day OT - Evaluation Status: Complete Equipment Recommended: (TBD) LTGs for 4 weeks Goals: Encounter Problems Encounter Problems (Active) Template: Occupational Therapy Problem: OT Membership Manager Goals Dates: Start: 04/20/24 Goal: Pt will be mod I with LB dressing Dates: Start: 04/20/24 Expected End: 05/18/24 Goal: Pt will be mod I with UB dressing Dates: Start: 04/20/24 Expected End: 05/18/24 Goal: Pt will be S with bathing Dates: Start: 04/20/24 Expected End: 05/18/24 Goal: Pt will be mod I with toileting including txfer Dates: Start: 04/20/24 Expected End: 05/18/24 Goal: Pt will perform tub txfer with LRAD with S. Dates: Start: 04/20/24 Expected End: 05/18/24 Goal: Pt will be mod I with snack/beverage retrieval at LRAD Dates: Start: 04/20/24 Expected End: 05/18/24 Description: Problem: OT Short Term Goals Dates: Start: 04/20/24 Goal: Pt will perform toileting with partial A Dates: Start: 04/20/24 Expected End: 04/27/24 Goal: Pt will perform LB dressing with partial A Dates: Start: 04/20/24 Expected End: 04/27/24 Goal: Pt will perform bathing with steadying A. Dates: Start: 04/20/24 Expected End: 04/27/24 Goal: Pt will be able to utilize L UE as an independent stabilizer during grooming tasks Dates: Start: 04/20/24 Expected End: 04/27/24 Goal: Pt will perform UB dressing with PETERSON, with carryover of tasha dressing technique Dates: Start: 04/20/24 Expected End: 04/27/24 Encounter Problems (Resolved) There are no resolved problems. Education Documentation ADL Training, taught by Joshua Tellez OT at 04/24/2024 2:42 PM. Learner: Patient Readiness: Acceptance Method: Explanation, Demonstration Response: Verbalizes Understanding, Demonstrated Understanding, Needs Reinforcement Body Mechanics, taught by Joshua Tellez OT at 04/24/2024 2:42 PM. Learner: Patient Readiness: Acceptance Method: Explanation, Demonstration Response: Verbalizes Understanding, Demonstrated Understanding, Needs Reinforcement Fall Precautions, taught by Joshua Tellez OT at 04/24/2024 2:42 PM. Learner: Patient Readiness: Acceptance Method: Explanation, Demonstration Response: Verbalizes Understanding, Demonstrated Understanding, Needs Reinforcement Education Comments No comments found. Start/Stop Time OT Time Calculation OT Start Time: 0830 OT Stop Time: 1000 OT Time Calculation (min): 90 min Therapy Minutes: Occupational Therapy OT Individual: 90 I certify that I, Joshua Tellez OT , was present and participatory during the delivery of careand directed all aspects of care and decision making during this session. Note generated by delanoand edited for content accuracy. I have reviewed the Epic therapy documentation for 04/24/2024 by occupational therapy student, Елена Weldon, and concur with all documentation and attest to its accuracy, and to that of all associated charges. * Sheron Dye - 04/24/2024 8:30 AM EST Social Work Note Integrated Radio Repair Teacher: DX: Adjustment DO: Met with patient this morning at bedside. Checked in with her to see how things went with talking to her mother's physician. Patient reported that she was able to talk to her mother's doctor and thatmade her feel at ease. They were able to give the plan of treatment and what will be the next steps. She wants to continue to care for her mother but its aware that with her recent medical changes she just can't take care of her right now. She has accepted that and is less anxious about that decision. She also appeared less emotional and withdrawn today. Will continue to monitor. Sheron Dye MS Clinician * Karla Goetz - 04/23/2024 1:34 PM EST SPIRITUAL CARE Date/Time:04/23/24 at 1:34 PM EST Type of Visit: Initial Visit and Chief Physical Therapist Rounding Reason for Visit: Spiritual/Emotional Support and Spiritual Assessment Time Spent: 10 Minutes Location: [address] [place] [address] Sacramental Encounters: Spiritual Distress Assessment: Spiritual Distress Assessment at beginning of visit Meaning - Overall Life Balance: No evidence of unmet spiritual need Transcendence: No evidence of unmet spiritual need Values - Acknowledgement: No evidence of unmet spiritual need Values - Control: No evidence of unmet spiritual need Psycho-Social Identity: No evidence of unmet spiritual need SDAT Beginning of Visit Average Score: 0 Spiritual Distress Assessment at end of visit Meaning - Overall Life Balance: No evidence of unmet spiritual need Transcendence: No evidence of unmet spiritual need Values - Acknowledgement: No evidence of unmet spiritual need Values - Control: No evidence of unmet spiritual need Psycho-Social Identity: No evidence of unmet spiritual need SDAT End of Visit Average Score: 0 Spiritual Assessment/Distress Spiritual Care Assessment: Assessment: Amalia, was awake, alert, on phone and resting in bed at the time of visit. Barbadian speaking, raised no concern. Voiced family support and love. Voiced appreciation for the visit and support. Intervention: NE Spiritual Care Interventions : provided support and explored hope Outcomes: expressed gratitude Plan of Care: Visit as needed *Reference: Spiritual Distress Assessment Tool: The SDAT is a clinical tool used by chaplains to identify unmet spiritual and emotional needs that can impact Goals of Care in the following categories: Spiritual Distress Assessment Legend Spiritual Needs Related Questions Meaning Are you having difficulties coping with what is happening to your now? Does your hospitalization have any repercussions on the way you live usually? Transcendence Do you have a particular episcopal, azalea, or spirituality? Is your episcopal/spirituality/azalea challenged by what is happening to you now? Values Do you think that the health professionals caring for you know you well enough? Do you feel that you are participating in the decisions made about your care? Psycho-Social Identity Do you have any worries or difficulties regarding your family or other persons close to you? Do you feel lonely? Do you have links to your azalea community? SCALE 0= no evidence of unmet spiritual needs 1= some evidence of unmet spiritual needs 2= substantial evidence of unmet spiritual needs 3= evidence of severe unmet spiritual needs * Joshua Tellez OT - 04/23/2024 12:30 PM EST [facility] Occupational Therapy Treatment Note 04/23/24 Patient: Amalia Ann : 1975 Age: 48 y.o. Gender: female Diagnosis: No Principal Problem: There is no principal problem currently on the Problem List. Please update the Problem List and refresh. Primary Rehab (Etiologic) Diagnosis: There is no problem list on file for this patient. PMH: Past Medical History: Diagnosis Date CVA (cerebral vascular accident) ([facility]/HCC) DM (diabetes mellitus) ([facility]) HTN (hypertension) PSH: History reviewed. No pertinent surgical history. Allergies: has No Known Allergies. Precautions: Precautions Medical Precautions: Fall Risk Safety Interventions: ID band on, Bed alarm, Personal alarm on Swallow Precautions: Modified Diet (IDDS 6/2 (soft/bite sized solids/ thin liquids)) RUE Weight Bearing Status: Full LUE Weight Bearing Status: Full, As Tolerated RLE Weight Bearing Status: Full LLE Weight Bearing Status: Full Vitals: BP: 133/69 Heart Rate: 70 SpO2: 97 % Pain: Pain Assessment Pain Score: 0 - No pain Subjective: I am tired I want to lay down. Procedures/Interventions: ADLs/IADLs Self Care/Home Management (ADLs) Time Entry: 45 Pt seated in w/c upon arrival. Agreeable to session. Vitals assessed. Barbadian <> [place] Islander video soup person used throughout session. Pt self-propelling w/c from room to shower stall with S. Pt stand pivot txfer from w/c > tub txfer bench with partial A. Pt cued to slow down during txfer for safety. Pt seated on tub bench. Pt STS with partial A for hiking LB clothing down. Pt seated on bench doffing UB clothing with S. Pt educated on remaining seated for entirely of shower with standing at the end to bathe buttocks/ valerie region. Pt agreeable. Pt completing UB bathing with S and cues forusing L UE throughout. Pt demoing ability to use L UE to grasp onto removable shower head. Pt able to use L UE to assist with washing R UE however primarily using R UE to wash. Pt completing LB bathing with partial A including stand to bathe buttocks. Pt provided verbal cues for washing B Feet, pt utilizing figure four method to bathe B feet. Pt denying washing hair on this date wishing to complete on another date. Pt drying off with verbal cues for thoroughness, Pt donning lead qa analyst socks with S using figure four. Pt donning [facility]. Pt stand pivot with mod A from tub bench > w/c. Pt encouraged to reach back prior to sitting. Pt self-propelling w/c from shower stall > room with partial, for avoiding obstacles. Pt engaged in dressing seated in w/c. Pt completing UB dressing with S with use of tasha dressing technique. Pt dressing LB bathing with partial A for STS to hike pants over hips in stand. Pt demoing ability to thread B LE through LB clothing with recalling to thread L LE first. Pt donning lead qa analyst socks with S and cues for use of L UE to assist with donning socks. DuringLB dressing pt encouraged to use L UE when hiking pants, partial A for balance. Pt attempting use of L UE with verbal and tactile cues throughout ADL. Pt taking a seated rest break. Balance/Neuromuscular Re-Education Neuromuscular Re-Education Time Entry: 45 Pt self-propelling w/c from room > gym with S and cues for obstacle navigation. Pt positioned w/c at tabletop to engage in activity to target dynamic standing balance, B UE integration and endurance. Pt tasked with using L UE to obtain matching socks from table and using B UE to fold socks. Pt provided verbal and tactile cueing throughout for use of L UE. Pt STS to complete activity with partial A for knee blocking and balance throughout. Pt demoing shoulder flexion/extension, shoulder adduction/abduction, and elbow flexion/extension throughout activty. During sit pt provided cueing to slow down and reach back with B UE prior to sitting. Pt engaged in sitting at tabletop. Pt tasked with using B UE to stretch putty. Smell pegs placed into putty and pt tasked with using L hand to obtain 10 pegs from putty. Pt demoing ability to use L hand to obtain all pegs with min verbal cues for use of a pincer grasp. Pt standing to engage in bringing ball around waist with mod A for balance and L knee blocking throughout. Pt engaged in activity to target standing balance and shoulder ROM. Noted increased difficulty with bringing L UE behind back to transition ball. Noted pt bracing posterior knees on w/c for additional support. Pt engaged in activity to target standing balance an ROM of L UE. Pt tasked with obtaining stanley bags from thigh to shoulder height with L UE and tossing stanley bags underhand to target. Pt demoing AROMshoulder flexion/extension throughout activity. Pt with LOB anteriorly requiring max A for correction. Pt taking a seated rest break. Pt standing at tabletop to use small tongs to obtain pom poms with L UE. Pt with increased difficulty in obtaining tongs, tongs placed in pt hand. Pt demoing ability to obtain pom poms with use of kitchen tongs. Pt demoing a gross grasp on tongs to obtain pom poms from tabletop. Pt demoing shoulderflexion/extension and abduction/adduction throughout when tasked with placing pom poms in containeron R side of body. Pt provided rest break through all activities. Pt self-propelling w/c from gym > room with S. Pt stand pivot txfer from w/c > EOB with partial A. Pt EOB > supine with S. Pt elevated supine with bed alarm on and call noriega in reach. All needs met. OT Assessment OT Assessment OT Assessment Results: Decreased ADL status, Decreased upper extremity range of motion, Decreased upper extremity strength, Decreased endurance, Decreased safe judgment during ADL, Visual deficit, Decreased fine motor control, Decreased functional mobility, Decreased gross motor control, Decreased IADLs, Decreased trunk control for functional activities Prognosis: Good Evaluation/Treatment Tolerance: Patient tolerated treatment well Comments: Pt tolerated 90 min session well. Pt reporting increased fatigue on this date. Pt demoingan increase in L UE functional use throughout ADL with cueing. Pt requiring cues throughout STS forslowing down and reaching B UE posteriorly prior to sitting for safety OT Plan Plan Treatment Interventions: ADL retraining, Functional transfer training, UE strengthening/ROM, Endurance training, Patient/family training, Equipment evaluation/education, Neuromuscular reeducation, Fine motor coordination activities OT Plan: Skilled OT OT Frequency : 5-7 days per week OT Duration of Sessions: 60-90 min per session OT Treatments per day: 1 time per day OT - Evaluation Status: Complete Equipment Recommended: (TBD) Goals: Encounter Problems Encounter Problems (Active) Template: Occupational Therapy Problem: OT Membership Manager Goals Dates: Start: 04/20/24 Goal: Pt will be mod I with LB dressing Dates: Start: 04/20/24 Expected End: 05/11/24 Goal: Pt will be mod I with UB dressing Dates: Start: 04/20/24 Expected End: 05/11/24 Goal: Pt will be S with bathing Dates: Start: 04/20/24 Expected End: 05/11/24 Goal: Pt will be mod I with toileting including txfer Dates: Start: 04/20/24 Expected End: 05/11/24 Goal: Pt will perform tub txfer with LRAD with S. Dates: Start: 04/20/24 Expected End: 05/11/24 Goal: Pt will be mod I with snack/beverage retrieval at LRAD Dates: Start: 04/20/24 Expected End: 05/11/24 Description: Problem: OT Short Term Goals Dates: Start: 04/20/24 Goal: Pt will perform toileting with partial A Dates: Start: 04/20/24 Expected End: 04/27/24 Goal: Pt will perform LB dressing with partial A Dates: Start: 04/20/24 Expected End: 04/27/24 Goal: Pt will perform bathing with steadying A. Dates: Start: 04/20/24 Expected End: 04/27/24 Goal: Pt will be able to utilize L UE as an independent stabilizer during grooming tasks Dates: Start: 04/20/24 Expected End: 04/27/24 Goal: Pt will perform UB dressing with PETERSON, with carryover of tasha dressing technique Dates: Start: 04/20/24 Expected End: 04/27/24 Encounter Problems (Resolved) There are no resolved problems. Education Documentation Safe Use of DME, taught by Joshua Tellez OT at 04/23/2024 2:30 PM. Learner: Patient Readiness: Acceptance Method: Explanation, Demonstration Response: Verbalizes Understanding, Demonstrated Understanding, Needs Reinforcement ADL Training, taught by Joshua Tellez OT at 04/23/2024 2:30 PM. Learner: Patient Readiness: Acceptance Method: Explanation, Demonstration Response: Verbalizes Understanding, Demonstrated Understanding, Needs Reinforcement Body Mechanics, taught by Joshua Tellez OT at 04/23/2024 2:30 PM. Learner: Patient Readiness: Acceptance Method: Explanation, Demonstration Response: Verbalizes Understanding, Demonstrated Understanding, Needs Reinforcement Fall Precautions, taught by Joshua Tellez OT at 04/23/2024 2:30 PM. Learner: Patient Readiness: Acceptance Method: Explanation, Demonstration Response: Verbalizes Understanding, Demonstrated Understanding, Needs Reinforcement Education Comments No comments found. Start/Stop Time OT Time Calculation OT Start Time: 1230 OT Stop Time: 1400 OT Time Calculation (min): 90 min Therapy Minutes: Occupational Therapy OT Individual: 90 I certify that I, Joshua Tellez OT , was present and participatory during the delivery of careand directed all aspects of care and decision making during this session. Note generated by delanoand edited for content accuracy. I have reviewed the Epic therapy documentation for 04/23/2024 by occupational therapy student, Елена Weldon, and concur with all documentation and attest to its accuracy, and to that of all associated charges. * Josephine Maldonado RN - 04/23/2024 12:28 PM EST Patient given 3 printed handouts regarding diabetes (in slovenian) 1- blood sugar emergencies 2- Home blood sugar testing 3- diabetes Type 2 Patient read the material and verbalized an understanding of instructions * Elzbieta Garcia, PT - 04/23/2024 12:12 PM EST [facility] Physical Therapy Treatment Note 04/23/2024 Patient: Amalia Ann : 1975 Age: 48 y.o. Gender: female Primary Language: Barbadian Diagnosis: No Principal Problem: There is no principal problem currently on the Problem List. Please update the Problem List and refresh. Past Medical History: Diagnosis Date CVA (cerebral vascular accident) (CMS/HCC) DM (diabetes mellitus) ([facility]) HTN (hypertension) History reviewed. No pertinent surgical history. Allergies: has No Known Allergies. Precautions: Medical Precautions: Fall Risk Safety Interventions: ID band on, Bed alarm, Personal alarm on Swallow Precautions: Modified Diet (IDDS 6/2 (soft/bite sized solids/nectar thick liquids)) RUE Weight Bearing Status: Full LUE Weight Bearing Status: Full, As Tolerated RLE Weight Bearing Status: Full LLE Weight Bearing Status: Full NURSING RECOMMENDATIONS Bed Mobility: Transfers: Ambulation: SUBJECTIVE Pt report: I'm okay Pain: 0/10 OBJECTIVE General Observation: Seated in WC agreeable to participating in therapy session. Procedure/Treatment: Neuromuscular Reeducation: Balance/Neuromuscular Re-Education Neuromuscular Re-Education Time Entry: 80 Patient in Wheelchair agreeable to participating in therapy session. Pt dep. Brought down to therapy session. Pt completed mass rep stand pivot transfers with no AD, [id number] x1 poor eccentric control. Pt completed 2x15ft, x30ft of ambulation max-A x1 and WC follow. Pt needing mod to max cues for sequencing with AD. Pt with increased truncal movement with ambulation, pt with LOB needing max-a for LOB. Poor control to sit in WC. Pt completed 2 trials x4 stairs, pt with max-A x1, cues for decreased gait speed, poor foot placement on stairs. Pt completed STS to to tasha-bar, with release of RUE support, 2x45 seconds increased postural sway in standing with buckling on LLE, cues to correct for increased knee flexion. Pt dep. Brought back to room in WC. Education provided on thickened liquids and aspiration precautions, LOGISTICIAN Shayy made aware. Pt left seated in WC, call noriega in reach, chair alarm on all needs met. Education: Education Documentation Mobility Training, taught by Elzbieta Garcia, PT at 04/23/2024 2:52 PM. Learner: Patient Readiness: Acceptance Method: Explanation, Demonstration, Trench Trimmer Fine Response: Verbalizes Understanding, Demonstrated Understanding Comment: Education on balance and slow movement. Education Comments No comments found. ASSESSMENT Pt with poor attention throughout therapy session, pt needing cues for gait speed with mobility. Equipment: TBD Plan of Care Plan Treatment/Interventions: (As per IE) PT Plan: Skilled PT PT Frequency: 5-7 days per week PT Duration of Sessions: 60-90 min per session PT Treatments per day: 1-2 times per day Equipment Recommended: TBD Barriers to Discharge: home environment, medical condition PT - Evaluation Status: Complete Problems/Goals Goals: Encounter Problems Encounter Problems (Active) Template: Physical Therapy Problem: PT Chcf Goals Dates: Start: 04/20/24 Goal: mod I bed mobility Dates: Start: 04/20/24 Expected End: 05/11/24 Goal: mod I transfers with LAD Dates: Start: 04/20/24 Expected End: 05/11/24 Goal: mod I wc mobility 150' Dates: Start: 04/20/24 Expected End: 05/11/24 Goal: up/dn 4 flights of stairs min A Dates: Start: 04/20/24 Expected End: 05/11/24 Problem: PT Short Term Goals Dates: Start: 04/20/24 Goal: Pt will perform bed mobility min A Dates: Start: 04/20/24 Expected End: 04/27/24 Goal: Pt will transfer with min A Dates: Start: 04/20/24 Expected End: 04/27/24 Goal: Pt will ambulate 25' with LAD mod A Dates: Start: 04/20/24 Expected End: 04/27/24 Goal: Assess stairs as appropriate Dates: Start: 04/20/24 Expected End: 04/27/24 Goal: Supervision wc mobility and mgmt 150' Dates: Start: 04/20/24 Expected End: 04/27/24 Description: Encounter Problems (Resolved) There are no resolved problems. Session Start/Stop Time: 1010 1130 Therapy Minutes Physical Therapy PT Individual: 80 * MARIE Shrestha - 04/23/2024 11:30 AM EST Speech Language Pathology Speech Language Pathology Treatment Subjective LOGISTICIAN Start Time: 1130 LOGISTICIAN Stop Time: 1215 LOGISTICIAN Time Calculation (min): 45 min Subjective: 'I feel good'. president practicing urologist Elsy #[id number] utilized. See flowsheet, diet upgraded. Objective General Visit Info General Family/Caregiver Present: No Treatment Swallow Function Swallow/Oral Function Treatment Time Entry: 15 Swallow Activity 1: Pt trialed regular solids and thin liquids: tolerated w/ functional oral prep, min oral residue that cleared with liquid wash, w/o overt s/sx of aspiration/penetration. Diet Recommendations: Regular solids/thin liquids Swallow Comments: Pt reporting completion of MBSS at [facility] prior to admission to rehab. Obtainedreport from [facility] and reviewed report. MBSS report recommending regular/thin, no aspiration or penetration. Aspiration Risk Risk for Aspiration: None Diet Solids Recommendation: IDDSI Level 7 Regular Diet Liquids Recommendation: Thin liquids Liquid Administration Via: Cup Compensatory Swallowing Strategies: Upright as possible for all oral intake, Remain upright for 20-30 minutes after meals Recommended Medication Route: PO Speech and Language Speech Treatment (Individual) Time Entry: 15 Speech: Reviewed speech strategy handout. Pt tasked with repeating multisyllabic words: given set up for strategies, 90-95% intelligible. Tasked with repeating phrases containing multisyllabic words given set up for strategies: ~90% intelligible. Cognitive Skills Therapeutic Interventions Cognitive Skills Direct Contact Time Entry: 15 Memory: Pt able to recall 1/3 speech strategies indp, increasing to 3/3 given min verbal cues. Pt able to recall 2/6 components of RAPIDO indp, increasing to 6/6 given min verbal cues. Problem Solving: Functional word/calculation problems: 100% accuracy given repetitions/clarifications and min A for calculator use. Assessment/Plan LOGISTICIAN Assessment Dysphagia Diagnosis: Within Functional Limits Evaluation/Treatment Tolerance: Patient tolerated treatment well Medical Staff Made Aware: Yes Comments: RN aware of diet upgrade. Plan Treatment/Interventions: Cognitive linguistic functioning LOGISTICIAN Plan: Skilled LOGISTICIAN LOGISTICIAN Frequency: 5-7 days per week LOGISTICIAN Duration of Sessions: 45-60 min per session LOGISTICIAN Treatments per day: 1 time per day Diet Recommendations: Regular solids/thin liquids LOGISTICIAN - Next Appointment: 04/24/24 Goals Encounter Problems Encounter Problems (Active) Template: Speech Therapy Problem: Cognitive/Linguistics Dates: Start: 04/20/24 Goal: Patient will participate in further assessment of cognitive-linguistic skills Dates: Start: 04/20/24 Expected End: 05/04/24 Description: Outcomes Date/Time User Outcome 04/22/24 1555 MARIE Shrestha Progressing Goal: Patient will identify and utilize problem-solving intervention for task completion at 90% accuracy given min A Dates: Start: 04/20/24 Expected End: 05/04/24 Description: Outcomes Date/Time User Outcome 04/23/24 1253 MARIE Shrestha Progressing Goal: Patient will complete simple calculations for time/money management at 90% accuracy given Mauro Dates: Start: 04/20/24 Expected End: 05/04/24 Description: Outcomes Date/Time User Outcome 04/23/24 1253 MARIE Shrestha Progressing Goal: Pt will improve intelligibility at the sentence/conversational level to baseline given min A for speech strategies. Dates: Start: 04/21/24 Expected End: 04/28/24 Description: Outcomes Date/Time User Outcome 04/23/24 1253 MARIE Shrestha Progressing Goal: Pt will follow 2-3 step commands given repetitions/min A - 90% accuracy Dates: Start: 04/21/24 Expected End: 04/28/24 Description: Goal: Pt will improve delayed recall of functional information given min A for encoding and min A for retrieval - 90% accuracy Dates: Start: 04/22/24 Expected End: 04/29/24 Description: Outcomes Date/Time User Outcome 04/23/24 1253 MARIE Shrestha Not Progressing Goal: Pt will complete basic to mod level auditory/visual attention tasks - 90% accuracy given mod A. Dates: Start: 04/23/24 Expected End: 04/30/24 Description: Encounter Problems (Resolved) Template: Speech Therapy Problem: Swallowing Dates: Start: 04/20/24 Resolved: 04/23/24 Goal: Patient will tolerate the least restrictive diet consistency to allow for safe consumption ofdaily meals (Resolved) Dates: Start: 04/20/24 Expected End: 05/04/24 Resolved: 04/23/24 Description: Outcomes Date/Time User Outcome 04/23/24 1253 MARIE Shrestha Completed Goal: Patient will demonstrate safe swallowing Intervention/techniques (Resolved) Dates: Start: 04/20/24 Expected End: 05/04/24 Resolved: 04/23/24 Description: Outcomes Date/Time User Outcome 04/23/24 1253 MARIE Shrestha Completed Education Documentation Speech/Language, taught by MARIE Shrestha at 04/23/2024 11:30 AM. Learner: Patient Readiness: Acceptance Method: Explanation, Handout, Trench Trimmer Fine Response: Verbalizes Understanding Comment: Speech/intelligibility strategies, signs of stroke with RAPIDO acronym Education Comments No comments found. Associated attestation - Jen Duque SLP - 04/23/2024 6:48 PM EST I attest that I, Amber Duque M.S.,[facility]-LOGISTICIAN, was physically involved in the ongoing assessment, decision making, and interventions provided during today's patient care session. I have reviewed all documentation for today's 04/23/24, entered by Speech Therapy Fellow, Shayy Meyer, and further attest that it is an accurate clinical record of today's encounter, including accurate and appropriate charges. * BRAD Jensen - 04/23/2024 7:46 AM EST Images from the original note were not included. [facility] Daily Progress Note Patient name: Amalia Ann : 1975 SUBJECTIVE: Patient seen and examined at bedside today. No acute events overnight. Denies headaches, dizziness,shortness of breath, chest pain, nausea, constipation, and pain. Has been participating in therapies. OBJECTIVE: Vitals: 04/22/24 0833 04/22/24 1521 04/22/24 2346 04/23/24 0820 BP: 139/75 (!) 160/72 (!) 144/78 135/66 BP Location: Right arm Right arm Patient Position: Lying Lying Pulse: 70 60 67 66 Resp: 18 Temp: 36.9 ??C (98.4 ??F) 36.8 ??C (98.2 ??F) TempSrc: Oral Oral SpO2: 99% 100% 98% 98% Weight: Height: Physical Examination: General: Alert, in no acute cardiopulmonary distress. Mental Status: Oriented to person, place and time. Normal affect. Head: Normocephalic. Eyes: Extraocular muscles grossly intact. Ear, Nose and Throat: Oropharynx clear, mucous membranes moist. Ears and nose without masses, lesions or deformities. Neck: Supple, Trachea midline. Respiratory: Clear to auscultation and percussion. No wheezing, rales or rhonchi. Cardiovascular: Heart sounds normal. No thrills. Regular rate and rhythm, no murmurs, rubs or gallops. Gastrointestinal: Abdomen soft, non-tender, non-distended. Normal bowel sounds. Neurologic: Cranial nerves II-XII grossly intact. Moves all extremities spontaneously. Sensation intact bilaterally. +left hemiparesis Skin: No rashes or lesions. No petechiae or purpura. No edema. Musculoskeletal: No cyanosis or clubbing. No gross deformities. Normal range of motion. Strength 4/5 left shoulder abduction, 4/5 left elbow flexion, 3/5 left wrist extension, 3/5 left finger flexion. Antigravity strength left hip flexion and knee extension. Left dorsiflexion strength 1/5. CURRENT INPATIENT MEDICATIONS: Current Facility-Administered Medications: acetaminophen (TYLENOL) tablet 650 mg, 650 mg, oral, q6h PRN, BRAD Hicks aluminum-magnesium hydroxide-simethicone (MAALOX) 200-200-20 mg/5 mL suspension 30 mL, 30 mL, oral,q4h PRN, BRAD Hicks, 30 mL at 04/23/24 0530 aspirin EC tablet 81 mg, 81 mg, oral, Daily, BRAD Hicks, 81 mg at 04/23/24 08 atorvastatin (LIPITOR) tablet 80 mg, 80 mg, oral, Nightly, BRAD Hicks, 80 mg at 04/22/242025 clopidogreL (PLAVIX) tablet 75 mg, 75 mg, oral, Daily, BRAD Hicks, 75 mg at 04/23/24 08 dextrose (D50W) 50% injection 12.5 g, 12.5 g, intravenous, q15 min PRN, BRAD Hicks dextrose (D50W) 50% injection 25 g, 25 g, intravenous, q15 min PRN, BRAD Hicks dextrose 15 gram/60 mL oral solution 15 g, 15 g, oral, q15 min PRN, BRAD Hicks dextrose 15 gram/60 mL oral solution 30 g, 30 g, oral, q15 min PRN, BRAD Hicks docusate sodium (COLACE) capsule 100 mg, 100 mg, oral, BID, BRAD Hicks, 100 mg at 04/23/24 0822 enoxaparin (LOVENOX) injection 40 mg, 40 mg, subcutaneous, Daily, BRAD Hicks, 40 mg at 04/23/24 0822 Glucagon HCl (rDNA) injection 1 mg, 1 mg, intramuscular, Once PRN, BRAD Hicks insulin glargine (LANTUS) injection 22 Units, 22 Units, subcutaneous, Nightly, BRAD Hicks, 22 Units at 04/22/242025 insulin lispro injection 2-12 Units, 2-12 Units, subcutaneous, TID AC, BRAD Viramontes, 6 Units at 04/22/24 1644 lisinopriL (PRINIVIL,ZESTRIL) tablet 10 mg, 10 mg, oral, Daily, BRAD Hicks, 10 mg at 04/23/24 0822 magnesium hydroxide (MILK OF MAGNESIA) 400 mg/5 mL suspension 30 mL, 30 mL, oral, Daily PRN, BRAD Rojas, 30 mL at 04/23/24 0529 LABS: Lab Results Component Value Date WBC 9.0 04/20/2024 RBC 4.60 04/20/2024 HGB 13.5 04/20/2024 HCT 41.1 04/20/2024 MCV 89.0 04/20/2024 MCHC 32.8 04/20/2024 RDW 12.7 04/20/2024 PLT 310 04/20/2024 MPV 11.8 (H) 04/20/2024 NRBC 0.0 04/20/2024 DIFF Lab Results Component Value Date LYMPHOPCT 12.8 04/20/2024 NEUTROABS 7.05 (H) 04/20/2024 LYMPHSABS 1.16 04/20/2024 MONOABS 0.69 04/20/2024 EOSABS 0.08 04/20/2024 BASOSABS 0.02 04/20/2024 IMMGRANABS 0.03 04/20/2024 RETIC No results found for: RETIC , RETICCTPCT Lab Results Component Value Date NA 140 04/20/2024 K 3.8 04/20/2024 CL 106 04/20/2024 CO2 28 04/20/2024 GLUCOSE 99 04/23/2024 BUN 16 04/20/2024 CREATININE 0.70 04/20/2024 CALCIUM 9.6 04/20/2024 PROT 6.3 04/20/2024 ALBUMIN 3.2 04/20/2024 BILITOT 0.6 04/20/2024 AST 27 04/20/2024 ALT 32 04/20/2024 ALKPHOS 89 04/20/2024 EGFR 108 04/20/2024 IMPRESSION & PLAN: #Impaired mobility and self care -secondary to CVA -continue PT, OT, LOGISTICIAN, and nursing care #Acute anterior right pontine stroke #Left hemiparesis #Dysarthria -Aspirin 81mg daily -Plavix 75mg daily -Atorvastatin 80mg nightly #Dysphagia -IDDSI 6 diet with IDDSI 2 mildly thick liquids -continue LOGISTICIAN #Hypertension -Lisinopril 10mg daily #Diabetes mellitus type 2 -ISS -Lantus 22 units QHS #Bowel management -Colace 100mg BID #DVT prophylaxis: Lovenox 40mg daily Associated attestation - Neida Bailey DO - 04/23/2024 4:06 PM EST Agree with progress note, assessment, and plan as documented by PA today. * Sheron Dye - 04/23/2024 7:30 AM EST Social Work Note Integrated Radio Repair Teacher: DX: Adjustment DO: Met with patient this morning at bedside. Introduced myself and the services. Assessed the patientsmood and behaviors. Patient denied any SI or self harm thoughts or behaviors. Patient also denied any HX of depression or anxiety but did expressed feeling overwhelmed feelings of depression due to her recent medical condition and also with her mom being hospitalized yesterday. She was very emotional and expressed that she feels that she is losing her mother due to her own health issues and her mother needs her. She reports that her mother was sick but no one went to the hospital with her and just called the ambulance and she has been alone since last night. She is worried that she will not be able to care for her mother. She had difficulties with her emotions this morning. Was able to callthe hospital with the patient and asked for a nurse to call her back so that can ease some of the overwhelming feelings she has. Spoke ot the therapist so they can be aware that the hospital may call. Will continue to monitor. Sheron Dye MS Clinician * Solange Scott RN - 04/23/2024 2:25 AM EST Goals: Clinical Goals for the Shift: To stay free from falls. Identify possible barriers to meeting goals/advancing plan of care: Stability of the patient: Moderately Stable - Low risk of patient condition declining or worsening End of Shift Summary: Problem: Cognitive: Domínguez Job Fall Risk Goal: Medications Outcome: Progressing Goal: Behavior Outcome: Progressing * Neida Bailey DO - 04/22/2024 5:00 PM EST Images from the original note were not included. PHYSICAL MEDICINE AND REHABILITATION Individualized Overall Plan of Care Patient Name: Amalia Ann Date of : 1975 Sex: Female Payor Info: Pay[place] / Plan[place] / Product Type: *No Product type* / Admit Date/Time: 04/19/2024 5:41 PM Etiologic Diagnosis: Acute CVA with left hemiparesis Rehab Impairment Group Code: 01.1 stroke, left body involvement, right brain Expected LOS/Duration of Therapy: 2-3 weeks Expected Discharge Destination: Home with home health services Medical Prognosis: Good Medical Issues Actively Being Managed: Acute CVA with left hemiparesis, dysphagia, hypertension, DMT2 Rehab Plan: Minimum of 180 minutes of therapy 5 out of 7 days per week as follows: 60 minutes of PT daily for 5 days. 60 minutes of OT daily for 5 days. 60 minutes of LOGISTICIAN daily for 5 days. Anticipated Functional Outcomes/Rehab Goals: Goals are for the patient to achieve the highest level of function and independence to allow the patient to return home. The patient and the family will be provided education on the patient's condition, the patient's current barriers, and the goals to overcome or to compensate for barriers. * Neida Bailey DO - 04/22/2024 4:54 PM EST Images from the original note were not included. [facility] Daily Progress Note Patient name: Amalia Ann : 1975 SUBJECTIVE: Patient seen and examined at bedside today. No acute events overnight. Denies headaches, dizziness,shortness of breath, chest pain, nausea, constipation, and pain. Reports that left upper extremity strength is improving. Participating in therapies: Gait with tasha-walker x10' max A and wheelchair follow, OBJECTIVE: Vitals: 04/21/24 1529 04/22/24 0044 04/22/24 0833 04/22/24 1521 BP: (!) 171/79 (!) 154/50 139/75 (!) 160/72 BP Location: Right arm Right arm Patient Position: Lying Sitting Pulse: 64 63 70 60 Resp: 16 18 Temp: 37 ??C (98.6 ??F) 36.3 ??C (97.3 ??F) 36.9 ??C (98.4 ??F) TempSrc: Oral Oral SpO2: 99% 99% 99% 100% Weight: Height: Physical Examination: General: Alert, in no acute cardiopulmonary distress. Mental Status: Oriented to person, place and time. Normal affect. Head: Normocephalic. Eyes: Extraocular muscles grossly intact. Ear, Nose and Throat: Oropharynx clear, mucous membranes moist. Ears and nose without masses, lesions or deformities. Neck: Supple, Trachea midline. Respiratory: Clear to auscultation and percussion. No wheezing, rales or rhonchi. Cardiovascular: Heart sounds normal. No thrills. Regular rate and rhythm, no murmurs, rubs or gallops. Gastrointestinal: Abdomen soft, non-tender, non-distended. Normal bowel sounds. Neurologic: Cranial nerves II-XII grossly intact. Moves all extremities spontaneously. Sensation intact bilaterally. +left hemiparesis Skin: No rashes or lesions. No petechiae or purpura. No edema. Musculoskeletal: No cyanosis or clubbing. No gross deformities. Normal range of motion. Strength 4/5 left shoulder abduction, 4/5 left elbow flexion, 3/5 left wrist extension, 3/5 left finger flexion. Antigravity strength left hip flexion and knee extension. Left dorsiflexion strength 1/5. CURRENT INPATIENT MEDICATIONS: Current Facility-Administered Medications: acetaminophen (TYLENOL) tablet 650 mg, 650 mg, oral, q6h PRN, BRAD Hicks aluminum-magnesium hydroxide-simethicone (MAALOX) 200-200-20 mg/5 mL suspension 30 mL, 30 mL, oral,q4h PRN, BRAD Hicks aspirin EC tablet 81 mg, 81 mg, oral, Daily, BRAD Hicks, 81 mg at 04/22/24 0916 atorvastatin (LIPITOR) tablet 80 mg, 80 mg, oral, Nightly, BRAD Hicks, 80 mg at 04/21/24 2045 clopidogreL (PLAVIX) tablet 75 mg, 75 mg, oral, Daily, BRAD Hicks, 75 mg at 04/22/24 0915 dextrose (D50W) 50% injection 12.5 g, 12.5 g, intravenous, q15 min PRN, BRAD Hicks dextrose (D50W) 50% injection 25 g, 25 g, intravenous, q15 min PRN, BRAD Hicks dextrose 15 gram/60 mL oral solution 15 g, 15 g, oral, q15 min PRN, BRAD Hicks dextrose 15 gram/60 mL oral solution 30 g, 30 g, oral, q15 min PRN, BRAD Hicks docusate sodium (COLACE) capsule 100 mg, 100 mg, oral, BID, BRAD Hicks, 100 mg at 04/22/24 0916 enoxaparin (LOVENOX) injection 40 mg, 40 mg, subcutaneous, Daily, BRAD Hicks, 40 mg at 04/22/24915 Glucagon HCl (rDNA) injection 1 mg, 1 mg, intramuscular, Once PRN, BRAD Hicks insulin glargine (LANTUS) injection 22 Units, 22 Units, subcutaneous, Nightly, BRAD Hicks, 22 Units at 04/21/242044 insulin lispro injection 2-12 Units, 2-12 Units, subcutaneous, TID AC, BRAD Viramontes, 6 Units at 04/22/24 164 lisinopriL (PRINIVIL,ZESTRIL) tablet 10 mg, 10 mg, oral, Daily, BRAD Hicks, 10 mg at 04/22/24914 magnesium hydroxide (MILK OF MAGNESIA) 400 mg/5 mL suspension 30 mL, 30 mL, oral, Daily PRN, BRAD Rojas LABS: Lab Results Component Value Date WBC 9.0 04/20/2024 RBC 4.60 04/20/2024 HGB 13.5 04/20/2024 HCT 41.1 04/20/2024 MCV 89.0 04/20/2024 MCHC 32.8 04/20/2024 RDW 12.7 04/20/2024 PLT 310 04/20/2024 MPV 11.8 (H) 04/20/2024 NRBC 0.0 04/20/2024 DIFF Lab Results Component Value Date LYMPHOPCT 12.8 04/20/2024 NEUTROABS 7.05 (H) 04/20/2024 LYMPHSABS 1.16 04/20/2024 MONOABS 0.69 04/20/2024 EOSABS 0.08 04/20/2024 BASOSABS 0.02 04/20/2024 IMMGRANABS 0.03 04/20/2024 RETIC No results found for: RETIC , RETICCTPCT Lab Results Component Value Date NA 140 04/20/2024 K 3.8 04/20/2024 CL 106 04/20/2024 CO2 28 04/20/2024 GLUCOSE 295 (H) 04/22/2024 BUN 16 04/20/2024 CREATININE 0.70 04/20/2024 CALCIUM 9.6 04/20/2024 PROT 6.3 04/20/2024 ALBUMIN 3.2 04/20/2024 BILITOT 0.6 04/20/2024 AST 27 04/20/2024 ALT 32 04/20/2024 ALKPHOS 89 04/20/2024 EGFR 108 04/20/2024 IMPRESSION & PLAN: #Impaired mobility and self care -secondary to CVA -continue PT, OT, LOGISTICIAN, and nursing care #Acute anterior right pontine stroke #Left hemiparesis #Dysarthria -Aspirin 81mg daily -Plavix 75mg daily -Atorvastatin 80mg nightly #Dysphagia -IDDSI 6 diet with IDDSI 2 mildly thick liquids -continue LOGISTICIAN #Hypertension -Lisinopril 10mg daily #Diabetes mellitus type 2 -ISS -Lantus 22 units QHS #Bowel management -Colace 100mg BID #DVT prophylaxis: Lovenox 40mg daily * Shayy Sanchez, MARIE - 04/22/2024 12:15 PM EST Speech Language Pathology Speech Language Pathology Treatment Subjective LOGISTICIAN Start Time: 1215 LOGISTICIAN Stop Time: 1305 LOGISTICIAN Time Calculation (min): 50 min Subjective: Pt agreeable to [facility]. president practicing urologist Ransom #[id number] utilized. See updated goals. Plan for further testing of higher level attention/working memory in next session. Objective General Visit Info General Family/Caregiver Present: No Treatment Swallow Function Swallow/Oral Function Treatment Time Entry: 10 Swallow Activity 1: Pt trialed single and consecutive cup sips of thin liquids: no overt s/sx of aspiration/penetration noted. Pt indp stated importance of taking small sips/bites. Swallow Comments: Would benefit from MBSS to determine LRD. Pt expressing dislike towards nectar thick liquids. Speech and Language Speech Treatment (Individual) Time Entry: 22.5 Speech: Introduced speech/intelligibility strategies and provided Pt with handout of strategies in Barbadian. Reviewed each strategy and provided examples of use. Pt tasked with answering wh- questions, min A for strategy use. Cognitive Skills Therapeutic Interventions Cognitive Skills Direct Contact Time Entry: 22.5 Memory: Pt tasked with encoding RAPIDO given overall mod A. After 5 min delay, Pt able to recall 5/6 components given min to mod verbal cues. Other Cognitive Skills Activity: Subtests of CLQT Cognitive-Linguistic skills were formally assessed using the Cognitive Linguistic Quick Test (CLQT). The CLQT assesses strengths and weaknesses in five cognitive domains (Attention, Memory, ExecutiveFunctions, Language, and Visuospatial Skills). CLQT is for use with adults with known or suspected neurological dysfunction. Subtests Administered Raw Score Personal Facts No N/A Symbol Cancellation Yes 12 Confrontation Naming No N/A Clock Drawing Yes 9 Story Retelling No N/A Symbol Trails No N/A Generative Naming No N/A Design Memory No N/A Mazes No N/A Design Generation No N/A Interpretation of Test Results: Comments: Impaired clock drawing. Assessment/Plan LOGISTICIAN Assessment Evaluation/Treatment Tolerance: Patient tolerated treatment well Comments: Pt tearful towards end of session, expressed frustration with current situation. RemindedPt of progress and rationale for rehab stay. Plan Treatment/Interventions: Cognitive linguistic functioning, Swallow function LOGISTICIAN Plan: Skilled LOGISTICIAN LOGISTICIAN Frequency: 5-7 days per week LOGISTICIAN Duration of Sessions: 45-60 min per session LOGISTICIAN Treatments per day: 1 time per day LOGISTICIAN - Next Appointment: 04/23/24 Goals Encounter Problems Encounter Problems (Active) Template: Speech Therapy Problem: Cognitive/Linguistics Dates: Start: 04/20/24 Goal: Patient will participate in further assessment of cognitive-linguistic skills Dates: Start: 04/20/24 Expected End: 05/04/24 Description: Outcomes Date/Time User Outcome 04/22/24 1555 Shayy Sanchez, LOGISTICIAN Progressing Goal: Patient will identify and utilize problem-solving intervention for task completion Dates: Start: 04/20/24 Expected End: 05/04/24 Description: Goal: Patient will complete simple calculations for time/money management Dates: Start: 04/20/24 Expected End: 05/04/24 Description: Goal: Pt will improve intelligibility at the sentence/conversational level to baseline given min A for speech strategies. Dates: Start: 04/21/24 Expected End: 04/28/24 Description: Outcomes Date/Time User Outcome 04/22/24 1555 MARIE Shrestha Progressing Goal: Pt will follow 2-3 step commands given repetitions/min A - 90% accuracy Dates: Start: 04/21/24 Expected End: 04/28/24 Description: Goal: Pt will improve delayed recall of functional information given min A for encoding and min A for retrieval - 90% accuracy Dates: Start: 04/22/24 Expected End: 04/29/24 Description: Outcomes Date/Time User Outcome 04/22/24 1555 MARIE Shrestha Not Progressing Problem: Swallowing Dates: Start: 04/20/24 Goal: Patient will tolerate the least restrictive diet consistency to allow for safe consumption ofdaily meals Dates: Start: 04/20/24 Expected End: 05/04/24 Description: Outcomes Date/Time User Outcome 04/22/24 1555 MARIE Shrestha Progressing Goal: Patient will demonstrate safe swallowing Intervention/techniques Dates: Start: 04/20/24 Expected End: 05/04/24 Description: Outcomes Date/Time User Outcome 04/22/24 1555 MARIE Shrestha Progressing Encounter Problems (Resolved) There are no resolved problems. Education Documentation Speech/Language, taught by MARIE Shrestha at 04/22/2024 12:15 PM. Learner: Patient Readiness: Eager Method: Explanation, Handout, Demonstration, Trench Trimmer Fine Response: Verbalizes Understanding, Needs Reinforcement Comment: Speech/intelligibility strategies, memory strategies Cognition, taught by MARIE Shrestha at 04/22/2024 12:15 PM. Learner: Patient Readiness: Eager Method: Explanation, Handout, Demonstration, Trench Trimmer Fine Response: Verbalizes Understanding, Needs Reinforcement Comment: Speech/intelligibility strategies, memory strategies Education Comments No comments found. Associated attestation - Jen Duque SLP - 04/22/2024 4:45 PM EST I attest that I, Amber Duque M.S.,[facility]-LOGISTICIAN, was physically involved in the ongoing assessment, decision making, and interventions provided during today's patient care session. I have reviewed all documentation for today's 04/22/24, entered by Speech Therapy Fellow, Shayy Meyer, and further attest that it is an accurate clinical record of today's encounter, including accurate and appropriatecharges. * Iza Mendoza, PT - 04/22/2024 10:00 AM EST [facility] Physical Therapy Treatment Note 04/22/2024 Patient: Amalia Ann : 1975 Age: 48 y.o. Gender: female Primary Language: Barbadian Diagnosis: No Principal Problem: There is no principal problem currently on the Problem List. Please update the Problem List and refresh. Past Medical History: Diagnosis Date CVA (cerebral vascular accident) (CMS/HCC) DM (diabetes mellitus) (CMS/HCC) HTN (hypertension) History reviewed. No pertinent surgical history. Allergies: has No Known Allergies. Precautions: Medical Precautions: Fall Risk Safety Interventions: ID band on, Bed alarm, Personal alarm on Swallow Precautions: Modified Diet (IDDS 6/2 (soft/bite sized solids/nectar thick liquids)) RUE Weight Bearing Status: Full LUE Weight Bearing Status: Full, As Tolerated RLE Weight Bearing Status: Full LLE Weight Bearing Status: Full SUBJECTIVE Pt report: Pt sitting in wheelchair, agreeable to PT. Pain: Pain Assessment: No/denies pain OBJECTIVE General Observation: Pt in wheelchair upon arrival. Procedure/Treatment: Neuromuscular Reeducation: Balance/Neuromuscular Re-Education Neuromuscular Re-Education Time Entry: 60 Pt received in wheelchair, agreeable to PT. Barbadian video automatic embroidery machine tender utilized, Abhinav ID#[id number].Supervision wheelchair mobility to the gym, RUE/RLE propulsion, cues to slown down on turns. STS steadying A to tasha-bar, gait x10' forwards/backwards, max A for guiding LLE knee placement into abduction and guarding knee due to instability. Pt compensating with trunk flexion to extend LLE to step posteriorly. Gait with tasha-walker x10' max A and wheelchair follow, poor weight shift left and LLE weight acceptance, poor L knee control with pt reporting pain with knee extension, decreased step length RLE. Assist for tasha- walker placement, cues for smaller step length and slower pace for stability. Part-task gait training, stepping forwards/backwards with LLE with emphasis on maintaining L knee extension in stance phase and weight shifting, partial A to complete, pt unable to maintain L kneeextension. Supervision wheelchair mobility back to room. At end of session, pt left in wheelchair with alarm set, call noriega within reach and all needs met. Education: Education Documentation Mobility Training, taught by Iza Mendoza PT at 04/22/2024 12:24 PM. Learner: Patient Readiness: Acceptance Method: Explanation, Demonstration, Trench Trimmer Fine Response: Verbalizes Understanding, Needs Reinforcement Comment: gait training, balance, wc mobility Education Comments No comments found. ASSESSMENT PT Assessment Evaluation/Treatment Tolerance: Patient tolerated treatment well Comments: Pt to benefit from intensive gait training. Pt with decreased L knee control in stance phase, cues to slow down movement for increased stability. Equipment: TBD Plan of Care Plan Treatment/Interventions: (As per IE) PT Plan: Skilled PT PT Frequency: 5-7 days per week PT Duration of Sessions: 60-90 min per session PT Treatments per day: 1-2 times per day Equipment Recommended: TBD Barriers to Discharge: home environment, medical condition PT - Evaluation Status: Complete Problems/Goals Goals: Encounter Problems Encounter Problems (Active) Template: Physical Therapy Problem: PT Membership Manager Goals Dates: Start: 04/20/24 Goal: mod I bed mobility Dates: Start: 04/20/24 Expected End: 05/11/24 Goal: mod I transfers with LAD Dates: Start: 04/20/24 Expected End: 05/11/24 Goal: mod I wc mobility 150' Dates: Start: 04/20/24 Expected End: 05/11/24 Goal: up/dn 4 flights of stairs min A Dates: Start: 04/20/24 Expected End: 05/11/24 Problem: PT Short Term Goals Dates: Start: 04/20/24 Goal: Pt will perform bed mobility min A Dates: Start: 04/20/24 Expected End: 04/27/24 Goal: Pt will transfer with min A Dates: Start: 04/20/24 Expected End: 04/27/24 Goal: Pt will ambulate 25' with LAD mod A Dates: Start: 04/20/24 Expected End: 04/27/24 Goal: Assess stairs as appropriate Dates: Start: 04/20/24 Expected End: 04/27/24 Goal: Supervision wc mobility and mgmt 150' Dates: Start: 04/20/24 Expected End: 04/27/24 Description: Encounter Problems (Resolved) There are no resolved problems. Session Start/Stop Time: 1000 1100 Therapy Minutes Physical Therapy PT Individual: 60 * Joshua Fierrojcarlos, OT - 04/22/2024 8:30 AM EST [facility] Occupational Therapy Treatment Note 04/22/24 Patient: Amalia Ann : 1975 Age: 48 y.o. Gender: female Diagnosis: No Principal Problem: There is no principal problem currently on the Problem List. Please update the Problem List and refresh. Primary Rehab (Etiologic) Diagnosis: There is no problem list on file for this patient. PMH: Past Medical History: Diagnosis Date CVA (cerebral vascular accident) (CMS/HCC) DM (diabetes mellitus) ([facility]) HTN (hypertension) PSH: History reviewed. No pertinent surgical history. Allergies: has No Known Allergies. Precautions: Precautions Medical Precautions: Fall Risk Safety Interventions: ID band on, Bed alarm, Personal alarm on Swallow Precautions: Modified Diet (IDDS 6/2 (soft/bite sized solids/nectar thick liquids)) RUE Weight Bearing Status: Full LUE Weight Bearing Status: Full, As Tolerated RLE Weight Bearing Status: Full LLE Weight Bearing Status: Full Vitals: BP: 139/75 Heart Rate: 70 SpO2: 99 % Pain: None Subjective: The bathroom is small Procedures/Interventions: ADLs/IADLs Self Care/Home Management (ADLs) Time Entry: 45 Pt elevated supine upon arrival. Pt agreeable to session. [place]adian <> [place] Islander video automatic embroidery machine tender used throughout session. Pt donning socks while elevated supine with S. Pt elevated supine > EOB with S. Pt stand pivot EOB > w/c with partial A. Pt educated on slowing down throughout txfer and movements. Pt agreeable however requiring continue cues throughout. Pt seated at sink to engage in bathing. Pt completing UB bathing with partial A for R UE. Pt donning UB clothing with S with use of tasha dressing technique. Pt STS with partial A to hike pants down, blocking L knee. Pt seated in w/c to bathe LEs, pt demoing ability to bathe distal LE and feet. Pt donning socks while seated in w/c after bathing with use of one handed technique. Pt standing with partial A to bathe buttocks/periarea. Pt seated to don LB clothing with partial A during stand to hike pants. Pt seated in w/c to complete oral hygiene with S. Pt provided education on using L UE as a gross assist for holding toothbrush in L UE and using R UE to apply toothpaste. Pt requesting to use bathroom. Dep to position w/clinton bathroom in prep for txfer. Stand pivot from w/c > standard toilet with partial A. Pt cued toslow down throughout txfer. Pt hiking pants down with partial A. Pt voiding and completing hygiene seated with S. pt partial A for stand to hike pants up. Stand pivot from toilet > w/c with partial A and cues to control descent when sitting. Pt taking a seated rest break. Balance/Neuromuscular Re-Education Neuromuscular Re-Education Time Entry: 45 While seated in w/c Pt demoing AROM of shoulder flexion/extension, elbow flexion/extension and gross grasp. Pt demoing approximately 100 degrees of shoulder flexion. Pt self-propelling w/c from room > gym with S and cues for slowing down and avoiding obstacles. Pt positioned tabletop to engage in activity to target B UE integration, while removing/placing lids on various sized containers. Pt provided cues throughout to use L UE as a gross assist. Once all caps removed pt tasked with replacing the caps with L UE. Pt cued throughout to utilize L UE to assist with stabilizing containers or replacing caps. Pt engaged in using L UE to obtain pegs from L side of body and place into peg board while copying a pattern. Once pt provided cues on where to start, pt able to copy pattern. Pt correctly copying half of pattern before becoming fatigued. Pt utilizing a tripod grasp to obtain pegs. Pt with increased difficulty with placing pegs into board. Pt provided cuing for pushing peg down and for L UE graspand release. Following the activity pt removing pegs with L UE and placing into bucket. Pt performed mass reps of forward and backward cycling with use of Magnecizer UE bike, to target B UE coordination. Pt encouraged to lead with L UE. Pt provided mod cueing throughout for sustained L grasp on pedals. Pt able to sustain attention to L hand following cueing. Pt provided rest breaks throughout. OT Assessment OT Assessment OT Assessment Results: Decreased ADL status, Decreased upper extremity range of motion, Decreased upper extremity strength, Decreased endurance, Decreased safe judgment during ADL, Visual deficit, Decreased fine motor control, Decreased functional mobility, Decreased gross motor control, Decreased IADLs, Decreased trunk control for functional activities Prognosis: Good Evaluation/Treatment Tolerance: Patient tolerated treatment well Comments: Pt tolerating 90 min session well. Pt demoing increase in IND with dressing tasks. Pt requiring cues throughout to slow down for safety during session. Pt demoing functional grasp with L UEthroughout activities. Pt motivated throughout session. OT Plan Plan Treatment Interventions: ADL retraining, Functional transfer training, UE strengthening/ROM, Endurance training, Patient/family training, Equipment evaluation/education, Neuromuscular reeducation, Fine motor coordination activities OT Plan: Skilled OT OT Frequency : 5-7 days per week OT Duration of Sessions: 60-90 min per session OT Treatments per day: 1 time per day OT - Evaluation Status: Complete Equipment Recommended: (TBD) Goals: Encounter Problems Encounter Problems (Active) Template: Occupational Therapy Problem: OT Chcf Goals Dates: Start: 04/20/24 Goal: Pt will be mod I with LB dressing Dates: Start: 04/20/24 Expected End: 05/11/24 Goal: Pt will be mod I with UB dressing Dates: Start: 04/20/24 Expected End: 05/11/24 Goal: Pt will be S with bathing Dates: Start: 04/20/24 Expected End: 05/11/24 Goal: Pt will be mod I with toileting including txfer Dates: Start: 04/20/24 Expected End: 05/11/24 Goal: Pt will perform tub txfer with LRAD with S. Dates: Start: 04/20/24 Expected End: 05/11/24 Goal: Pt will be mod I with snack/beverage retrieval at LRAD Dates: Start: 04/20/24 Expected End: 05/11/24 Description: Problem: OT Short Term Goals Dates: Start: 04/20/24 Goal: Pt will perform toileting with partial A Dates: Start: 04/20/24 Expected End: 04/27/24 Goal: Pt will perform LB dressing with partial A Dates: Start: 04/20/24 Expected End: 04/27/24 Goal: Pt will perform bathing with steadying A. Dates: Start: 04/20/24 Expected End: 04/27/24 Goal: Pt will be able to utilize L UE as an independent stabilizer during grooming tasks Dates: Start: 04/20/24 Expected End: 04/27/24 Goal: Pt will perform UB dressing with PETERSON, with carryover of tasha dressing technique Dates: Start: 04/20/24 Expected End: 04/27/24 Encounter Problems (Resolved) There are no resolved problems. Education Documentation ADL Training, taught by Joshua Tellez OT at 04/22/2024 2:39 PM. Learner: Patient Readiness: Acceptance Method: Explanation, Demonstration Response: Verbalizes Understanding, Demonstrated Understanding, Needs Reinforcement Body Mechanics, taught by Joshua Tellez OT at 04/22/2024 2:39 PM. Learner: Patient Readiness: Acceptance Method: Explanation, Demonstration Response: Verbalizes Understanding, Demonstrated Understanding, Needs Reinforcement Activity/Positioning, taught by Joshua Tellez OT at 04/22/2024 2:39 PM. Learner: Patient Readiness: Acceptance Method: Explanation, Demonstration Response: Verbalizes Understanding, Demonstrated Understanding, Needs Reinforcement Education Comments No comments found. Start/Stop Time OT Time Calculation OT Start Time: 0830 OT Stop Time: 1000 OT Time Calculation (min): 90 min Therapy Minutes: Occupational Therapy OT Individual: 90 I certify that I, Joshua Tellez OT , was present and participatory during the delivery of careand directed all aspects of care and decision making during this session. Note generated by delanoand edited for content accuracy. I have reviewed the Epic therapy documentation for 04/22/2024 by occupational therapy student, Елена Weldon, and concur with all documentation and attest to its accuracy, and to that of all associated charges. * Jorden Soto LCSW - 04/22/2024 8:27 AM EST Initial Assessment: Met with pt at bedside for initial assessment. Utilized Manager Parking Vipin #[phone]. Introduced self and CM role. Discussed IRF level of care, team meeting and average LOS. Demographics confirmed. Pt lives in her mothers apartment with her boyfriend Page. Apartment in on the 4th floor, no elevator access. Pt was independent with ADLS and IADLS. Drives. No AD. Pt is unemployed, no income. Pt receives food stamps. 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 Pts mother also has 3 HOUSEKEEPING CLEANER to assist at home. Pt does not have a PCP, has never had a PCP. Pt states she was diagnosed with diabetes 6 years ago during a hospital stay in [place] but never treated her diabetes. Pt has no family local, brother is in [place]. No children. Pts boyfriend is primary support who currently works nights 10pm-7am. Pt states she was recently hospitalized in March at [facility] after having a stroke and was only prescribed metformin on discharge. No other medications. No HCP. Pt is open to completing a HCP during rehab stay. Pt denied ETOH, SA or cigarettes. Denied a history of anxiety/depression but became very tearful. Sheron ANGEL notified and will follow up. Pt had no questions or concerns at this time. * Jean Carlos العراقي, PT - 04/21/2024 3:24 PM EST [facility] Physical Therapy Treatment Note 04/21/2024 Patient: Amalia Ann : 1975 Age: 48 y.o. Gender: female Primary Language: slovenian Diagnosis: CVA Past Medical History: Diagnosis Date CVA (cerebral vascular accident) (CMS/HCC) DM (diabetes mellitus) (CMS/[facility]) HTN (hypertension) History reviewed. No pertinent surgical history. Allergies: has No Known Allergies. Precautions: Medical Precautions: Fall Risk Safety Interventions: ID band on, Bed alarm, Personal alarm on Swallow Precautions: Modified Diet (IDDS 6/2 (soft/bite sized solids/nectar thick liquids)) RUE Weight Bearing Status: Full LUE Weight Bearing Status: Full, As Tolerated RLE Weight Bearing Status: Full LLE Weight Bearing Status: Full NURSING RECOMMENDATIONS Bed Mobility: Transfers: Ambulation: SUBJECTIVE Pt report: I'm doing ok Pain: Pain Assessment: No/denies pain OBJECTIVE Vitals: BP: (!) 154/87 Heart Rate: 66 SpO2: 100 % General/Functional Assessments: Activity Tolerance Endurance: Tolerates 10 - 20 min exercise with multiple rests Static Sitting Balance Static Sitting-Level of Assistance: Supervision or touching assistance Dynamic Sitting Balance Dynamic Sitting-Level of Assistance: Supervision or touching assistance Procedure/Treatment: Therapeutic Activities: Therapeutic Activity Time Entry: 45 Therapeutic Activity 1: WC propulsion with R UE/LE x150' S, STS at tasha bar with focus on equal WB,PT blocking L knee, standing reaches with R, cone stacking to R post to ant and back, stacking cones on table in front with L UE and with R UE, min A to maintain midline. Therapeutic Activity 2: GT at hemibar with max A for upright trunk, L LE placement and knee block 10' x 5,, difficulty towards bout 4-5 with wt shifting L to allow R step due to fatigue. SPT to L modA wc to mat table for therex Therapeutic Activity 3: SPT to R steadying A, mat to wc and wc to bed. Propelling d S x125' with R LE only and Therapeutic Exercise: Therapeutic Exercise Time Entry: 45 Therapeutic Exercise Activity 1: 3x10 B SAQ, AA AP, bridges with steadying asst at L knee, hookly abd with green band, hookly marches, hookly add squeeze, Education: Education Documentation No documentation found. Education Comments No comments found. ASSESSMENT PT Assessment PT Assessment Results: Decreased strength, Decreased range of motion, Decreased endurance, Impairedbalance, Impaired gait, Decreased mobility Prognosis: Good Evaluation/Treatment Tolerance: Patient tolerated treatment well Plan of Care Plan Treatment/Interventions: (As per IE) PT Plan: (No change to plan) PT Frequency: 5-7 days per week PT Duration of Sessions: 60-90 min per session PT Treatments per day: 1-2 times per day Equipment Recommended: TBD Barriers to Discharge: home environment, medical condition PT - Evaluation Status: Complete Problems/Goals Goals: Encounter Problems Encounter Problems (Active) Template: Physical Therapy Problem: PT Chcf Goals Dates: Start: 04/20/24 Goal: mod I bed mobility Dates: Start: 04/20/24 Expected End: 05/11/24 Goal: mod I transfers with LAD Dates: Start: 04/20/24 Expected End: 05/11/24 Goal: mod I wc mobility 150' Dates: Start: 04/20/24 Expected End: 05/11/24 Goal: up/dn 4 flights of stairs min A Dates: Start: 04/20/24 Expected End: 05/11/24 Problem: PT Short Term Goals Dates: Start: 04/20/24 Goal: Pt will perform bed mobility min A Dates: Start: 04/20/24 Expected End: 04/27/24 Goal: Pt will transfer with min A Dates: Start: 04/20/24 Expected End: 04/27/24 Goal: Pt will ambulate 25' with LAD mod A Dates: Start: 04/20/24 Expected End: 04/27/24 Goal: Assess stairs as appropriate Dates: Start: 04/20/24 Expected End: 04/27/24 Goal: Supervision wc mobility and mgmt 150' Dates: Start: 04/20/24 Expected End: 04/27/24 Description: Encounter Problems (Resolved) There are no resolved problems. Session Start/Stop Time: 1400 1530 Therapy Minutes Physical Therapy PT Individual: 90 * Sury Barlow OT - 04/21/2024 1:58 PM EST [facility] Occupational Therapy Treatment Note 04/21/24 Patient: Amalia Ann : 1975 Age: 48 y.o. Gender: female Diagnosis: No Principal Problem: There is no principal problem currently on the Problem List. Please update the Problem List and refresh. Primary Rehab (Etiologic) Diagnosis: There is no problem list on file for this patient. PMH: Past Medical History: Diagnosis Date CVA (cerebral vascular accident) (CMS/HCC) DM (diabetes mellitus) (CMS/HCC) HTN (hypertension) PSH: History reviewed. No pertinent surgical history. Allergies: has No Known Allergies. Precautions: Precautions Medical Precautions: Fall Risk Safety Interventions: ID band on, Bed alarm, Personal alarm on Swallow Precautions: Modified Diet (IDDS 6/2 (soft/bite sized solids/nectar thick liquids)) RUE Weight Bearing Status: Full LUE Weight Bearing Status: Full, As Tolerated RLE Weight Bearing Status: Full LLE Weight Bearing Status: Full Vitals: BP: (!) 150/75 Heart Rate: 65 SpO2: 96 % Pain: Subjective: My arm feels tired, but it feels good to move it Procedures/Interventions: ADLs/IADLs Self Care/Home Management (ADLs) Time Entry: 30 ADL/ IADL Performed: Oral Hygiene, Bathing, Dressing, Toileting, Toilet Transfers Therapeutic Activity Therapeutic Activity Time Entry: 30 Therapeutic Activity 1: Matching Cards Therapeutic Activity 2: Pincer Grasp Biochemistry Professor Pt supine in bed upon arrival, agreeable to participate in therapy. president practicing urologist #[id number] used throughout session for communication. Vitals assessed, see chart above. Pt requesting to perform light wash-up and get dressed prior to going to the gym. Min A to perform supine to sit EOB, pt demoing impulsivity by attempting to transfer without therapist's help, requiring cues and overall mod A to perform SPT. Dep [facility]. Pt using RUE to perform all oral hygiene tasks, usingher mouth to help open toothpaste despite assistance offered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 Expected End: 05/11/24 Goal: mod I wc mobility 150' Dates: Start: 04/20/24 Expected End: 05/11/24 Goal: up/dn 4 flights of stairs min A Dates: Start: 04/20/24 Expected End: 05/11/24 Problem: PT Short Term Goals Dates: Start: 04/20/24 Goal: Pt will perform bed mobility min A Dates: Start: 04/20/24 Expected End: 04/27/24 Goal: Pt will transfer with min A Dates: Start: 04/20/24 Expected End: 04/27/24 Goal: Pt will ambulate 25' with LAD mod A Dates: Start: 04/20/24 Expected End: 04/27/24 Goal: Assess stairs as appropriate Dates: Start: 04/20/24 Expected End: 04/27/24 Goal: Supervision wc mobility and mgmt 150' Dates: Start: 04/20/24 Expected End: 04/27/24 Description: Encounter Problems (Resolved) There are no resolved problems. Education Documentation Mobility Training, taught by Jean Carlos العراقي PT at 04/20/2024 2:34 PM. Learner: Patient Readiness: Acceptance Method: Explanation, Demonstration Response: Verbalizes Understanding, Demonstrated Understanding, Needs Reinforcement Comment: Bed mobility, transfer training. comorbidities and relation to stroke (DM, HTN) Education Comments No comments found. Session Start/Stop Time: 129 229 Therapy Minutes Physical Therapy PT Individual: 60 * Ehsan Plasencia, DO - 04/20/2024 12:15 PM EST [facility] Daily Progress Note Patient name: Amalia Ann : 1975 SUBJECTIVE: Patient seen and examined in bed today. No acute events overnight. Ms Ann is a 48 yr old female who presented with left-sided weakness. MRI showed acute/subacute right pontine infarct without hemorrhage. Stabilized medically and transferred for acute inpatient rehab. Patient tearful initially today. Not fluent in [place], but was able to communicate with her and her research computing specialist. 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 OBJECTIVE: Vitals: 04/19/24 1915 04/19/24 2220 04/20/24 0646 04/20/24 0737 BP: (!) 153/75 (!) 153/81 137/72 BP Location: Right arm Right arm Right arm Patient Position: Lying Sitting Pulse: 64 64 64 Resp: 16 16 Temp: 36.8 ??C (98.2 ??F) 36.9 ??C (98.4 ??F) 37.1 ??C (98.8 ??F) TempSrc: Oral Oral Oral SpO2: 98% 100% Weight: 77 kg (169 lb 12.1 oz) 77 kg (169 lb 12.1 oz) Height: 1.58 m (62.21 ) 1.58 m (62.21 ) Physical Examination: General: Alert, in no acute cardiopulmonary distress. Mental Status: Tearful initially. Normal affect. Head: Normocephalic. Neck: Supple, Trachea midline. Respiratory: Clear to auscultation and percussion. No wheezing, rales or rhonchi. Gastrointestinal: Abdomen soft, non-tender, non-distended. Neurologic: Follows commands. Left hemiparesis. Not flaccid, but less than anti- gravity motor strength in the left upper and left lower extremity. No calf tenderness on either side. CURRENT INPATIENT MEDICATIONS: Current Facility-Administered Medications: acetaminophen (TYLENOL) tablet 650 mg, 650 mg, oral, q6h PRN, BRAD Hicks aluminum-magnesium hydroxide-simethicone (MAALOX) 200-200-20 mg/5 mL suspension 30 mL, 30 mL, oral,q4h PRN, BRAD Hicks aspirin EC tablet 81 mg, 81 mg, oral, Daily, BRAD Hicks, 81 mg at 04/20/24 0827 atorvastatin (LIPITOR) tablet 80 mg, 80 mg, oral, Nightly, BRAD Hicks, 80 mg at 04/19/24 2106 clopidogreL (PLAVIX) tablet 75 mg, 75 mg, oral, Daily, BRAD Hicks, 75 mg at 04/20/24 0828 dextrose (D50W) 50% injection 12.5 g, 12.5 g, intravenous, q15 min PRN, BRAD Hicks dextrose (D50W) 50% injection 25 g, 25 g, intravenous, q15 min PRN, BRAD Hicks dextrose 15 gram/60 mL oral solution 15 g, 15 g, oral, q15 min PRN, BRAD Hicks dextrose 15 gram/60 mL oral solution 30 g, 30 g, oral, q15 min PRN, BRAD Hicks docusate sodium (COLACE) capsule 100 mg, 100 mg, oral, BID, BRAD Hicks, 100 mg at 04/20/24 0828 Glucagon HCl (rDNA) injection 1 mg, 1 mg, intramuscular, Once PRN, BRAD Hicks insulin glargine (LANTUS) injection 22 Units, 22 Units, subcutaneous, Nightly, BRAD Hicks, 22 Units at 04/19/24 2107 insulin lispro injection 3-18 Units, 3-18 Units, subcutaneous, Before meals & nightly, Balbir Wagner NP, 3 Units at 04/20/24 1156 lisinopriL (PRINIVIL,ZESTRIL) tablet 10 mg, 10 mg, oral, Daily, BRAD Hicks, 10 mg at 04/20/24 0828 magnesium hydroxide (MILK OF MAGNESIA) 400 mg/5 mL suspension 30 mL, 30 mL, oral, Daily PRN, BRAD Rojas LABS: Lab Results Component Value Date WBC 9.0 04/20/2024 RBC 4.60 04/20/2024 HGB 13.5 04/20/2024 HCT 41.1 04/20/2024 MCV 89.0 04/20/2024 MCHC 32.8 04/20/2024 RDW 12.7 04/20/2024 PLT 310 04/20/2024 MPV 11.8 (H) 04/20/2024 NRBC 0.0 04/20/2024 DIFF Lab Results Component Value Date LYMPHOPCT 12.8 04/20/2024 NEUTROABS 7.05 (H) 04/20/2024 LYMPHSABS 1.16 04/20/2024 MONOABS 0.69 04/20/2024 EOSABS 0.08 04/20/2024 BASOSABS 0.02 04/20/2024 IMMGRANABS 0.03 04/20/2024 RETIC No results found for: RETIC , RETICCTPCT Lab Results Component Value Date NA 140 04/20/2024 K 3.8 04/20/2024 CL 106 04/20/2024 CO2 28 04/20/2024 GLUCOSE 183 (H) 04/20/2024 BUN 16 04/20/2024 CREATININE 0.70 04/20/2024 CALCIUM 9.6 04/20/2024 PROT 6.3 04/20/2024 ALBUMIN 3.2 04/20/2024 BILITOT 0.6 04/20/2024 AST 27 04/20/2024 ALT 32 04/20/2024 ALKPHOS 89 04/20/2024 EGFR 108 04/20/2024 IMPRESSION & PLAN: Acute right CVA, left hemiparesis Admitted to acute inpatient rehab. PT, OT, speech therapy evals in progress. Team conference early next week for d/c planning Internal medicine consult appreciated Medications as listed to be continued Diabetes mellitus Hypertension * Joshua Tellez, OT - 04/20/2024 12:00 PM EST [facility] Occupational Therapy Evaluation Note 04/20/24 Patient: Amalia Ann : 1975 Age: 48 y.o. Gender: female Primary Language: Barbadian Diagnosis: No Principal Problem: There is no principal problem currently on the Problem List. Please update the Problem List and refresh. Primary Rehab (Etiologic) Diagnosis: There is no problem list on file for this patient. PMH: Past Medical History: Diagnosis Date CVA (cerebral vascular accident) (CMS/HCC) DM (diabetes mellitus) (CMS/[facility]) HTN (hypertension) PSH: History reviewed. No pertinent surgical history. Allergies: has No Known Allergies. Precautions: Precautions Medical Precautions: Fall Risk Safety Interventions: ID band on, Bed alarm, Personal alarm on RUE Weight Bearing Status: Full LUE Weight Bearing Status: Full, As Tolerated RLE Weight Bearing Status: Full LLE Weight Bearing Status: Full NURSING RECOMMENDATIONS ADL Comments: Pt in elevated supine upon arrival, with SO present, agreeable to participation. Barbadian><[place] automatic embroidery machine tender utilized for entirety of session. In elevated supine pt able to assume ring sittingposition. Pt bathed feet and donned lead qa analyst socks with visual demo of one handed technique. Elevated supine>sit EOB with partial A for L LE. Once sitting EOB pt performed sponge bathing. UB sponge bat nas with touching A/Hand over hand utilizing L UE to bathe R UE. Pt able to bathe valerie area while seated, partial A for balance, as pt bringing R LE up to bed. STS partial A, blocking L knee due to occasional buckling. While in stand pt performed posterior hygiene with partial A for balance due Юлия lateral lean. Pt donned LB clothing with overall max A. Pt brianna to assist with hiking over hips with R UE. Pt reporting increase diplopia, requesting to get back to bed prior to PT session. Vitals assessed, BP 152/64. Sit>supine SBA. Bed alarm on, call noriega in reach, and all needs met. SUBJECTIVE Patient Subjective: I see double all of the time since the stroke. Home Living: Type of Home: Apartment (4th floor, no elevator) Lives With: Significant other (and mother. Pt was providing total care to her mother.) Home Adaptive Equipment: None Home Layout: One level Home Access: Stairs to enter with rails Entrance Stairs-Rails: Rail on the left going up Entrance Stairs-Number of Steps: (4 flights) Bathroom Shower/Tub: Tub/shower unit (no grab bars) Bathroom Toilet: Standard Bathroom Equipment: None Prior Level of Function: Level of Emmons: Independent with mobility and functional transfers Ambulation Status: Household ambulator Indoor Mobility Assistance: Independent Prior Device Use: No prior device use Do you drive?: No Vocational: Unemployed Leisure: (dance and crafting) Which is your dominant hand?: Right Pt caring for her mother. ADL/IADL History: ADL Assistance (Self Care): Independent Homemaking Assistance (Functional Cognition): Independent IADL Comments: (pt was cooking and performing house keeping tasks.) Social History: Social History Tobacco Use Smoking status: Never Passive exposure: Never Smokeless tobacco: Never Vaping Use Vaping status: Never Used Substance Use Topics Alcohol use: Never Drug use: Never Understanding of Current Condition: understands OBJECTIVE General Observation: pt pleasant and cooperative throughout, Barbadian><[place] Islander automatic embroidery machine tender utilized throughout. Cognition/Communication: Cognition Overall Cognitive Status: Within Functional Limits Arousal/Alertness: Appropriate responses to stimuli Orientation Level: Oriented X4 Safety Judgment: Good awareness of safety precautions Insight: Fair insight into deficits Problem Solving: Assistance required to generate solutions Vitals: BP: (!) 159/76 Heart Rate: 67 Pain: Pain Assessment: (pt reporting pain in low back, did not specify number.) Skin: Skin intact, buttocks not visualized, heels intact, please refer to nursing skin assessment for further details. FUNCTIONAL ASSESSMENTS ADL ASSIST Eating Assistance Needed: Set-up / clean-up Oral Hygiene Oral Hygiene Assistance Needed: Set-up / clean-up CARE Score - Oral Hygiene: 5 Toileting Toileting Hygiene Assistance Needed: Physical assistance Physical Assistance Level: 51%-75% CARE Score - Toileting Hygiene: 2 Bathing Shower/Bathe Self Assistance Needed: Physical assistance Physical Assistance Level: 26%-50% CARE Score - Shower/Bathe Self: 3 UE Dressing Upper Body Dressing Assistance Needed: Physical assistance Physical Assistance Level: 25% or less CARE Score - Upper Body Dressin LE Dressing Lower Body Dressing Assistance Needed: Physical assistance Physical Assistance Level: 76% or more CARE Score - Lower Body Dressin Footwear Putting On/Taking Off Footwear Assistance Needed: Physical assistance Physical Assistance Level: 25% or less CARE Score - Putting On/Taking Off Footwear: 3 Toilet Transfer Tub/Shower Transfer Equipment Provided: Vision: Vision - Complex Assessment Tracking: (Pt with difficulty sustaining tacking in L visual vield, often looking away then re focusing on target. slight nystagmus in B eyes when looking to L initially.) Saccades: Decreased speed of pursuit between targets (pt required increased time to locate object on R, reporting double vision on R side.) Diplopia Assessment: Disappears wtih one eye closed, Present all the time/all directions (however, during saccades, reporting increase in diplopia on R.) Vision Comments: Pt wears reading glasses. Perception: Perception Inattention/Neglect: Appears intact Initiation: Appears intact Motor Planning: Appears intact Proprioception: Proprioception Proprioception: (L UE propriocpetion intact.) Sensation: Sensation Light Touch: No apparent deficits (pt reports no numness or tingling and reports that she had bladder and bowel sensation.) Hand Function: Hand Function Hand Function Description: pt with gross grasp in L hand. Coordination: Coordination Coordination: (L opposition, imapired, with slow speed and decreased ROM. max imapired finger to nose L UE. R UE finger to nose intact.) Balance: Static sitting balance Static Sitting Balance Static Sitting-Level of Assistance: Supervision or touching assistance Dynamic sitting balance Dynamic Sitting Balance Dynamic Sitting-Level of Assistance: Partial/moderate assistance, Supervision or touching assistance Static standing balance Static Standing Balance Static Standing-Level of Assistance: Partial/moderate assistance Dynamic standing balance Dynamic Standing Balance Dynamic Standing-Level of Assistance: Partial/moderate assistance UPPER EXTREMITY ASSESSMENTS RUE Assessment RUE Assessment: Within Functional Limits LUE Assessment LUE Assessment: Impaired LUE AROM (degrees) L Shoulder Flexion 0-170: 80 L Shoulder ABduction 0-160/180: 50 L Forearm Pronation 0-80-90: 65 L Forearm Supination 0-80-90: 90 L Wrist Flexion 0-80: 45 L Wrist Extension 0-70: 45 LUE Strength L Shoulder Flexion: 3-/5 L Shoulder ABduction: 3-/5 L Elbow Flexion: 3+/5 L Elbow Extension: 3+/5 L Forearm Pronation: 3-/5 L Forearm Supination: 3-/5 L Wrist Flexion: 3-/5 L Wrist Extension: 3-/5 STANDARDIZED TESTS Quality Indicators Scoring CAM Scoring Admit: Is there evidence of an acute change in mental status from the patient's baseline?: No (04/20/24 1200 : Joshua Tellez OT) Inattention: Behavior not present (04/20/24 1200 : Joshua Tellez OT) Disorganized thinking: Behavior not present (04/20/24 1200 : oJshua Tellez OT) Altered level of consciousness: Behavior not present (04/20/24 1200 : Joshua Tellez OT) BIMS: 10 (04/20/24 1200 : Joshua Tellez OT) Hearing, Speech, and Vision: Hearing, Speech, and Vision Ability to Hear: Adequate Ability to See in Adequate Light: Adequate Expression of Ideas and Wants: Some difficulty Understanding Verbal and Non-Verbal Content: Usually understands Health Literacy: Health Literacy How often do you need to have someone help you when you read instructions, pamphlets, or other written material from your doctor or pharmacy?: Rarely OT Assessment: OT Assessment OT Assessment Results: Decreased ADL status, Decreased upper extremity range of motion, Decreased upper extremity strength, Decreased endurance, Decreased safe judgment during ADL, Visual deficit, Decreased fine motor control, Decreased functional mobility, Decreased gross motor control, Decreased IADLs, Decreased trunk control for functional activities Prognosis: Good Evaluation/Treatment Tolerance: Patient tolerated treatment well (pt limited by diplopia) Medical Staff Made Aware: Yes (RN aware of BP) Pt tolerated 90 min session well, limited by pain, diplopia, and fatigue. Barriers include fatigue,decreased strength in L UE, decreased L UE ROM, visual deficits, decreasing siting/standing balance, resulting in increased level of physical assist for all self care and fictional mobility. OT Plan: Plan Treatment Interventions: ADL retraining, Functional transfer training, UE strengthening/ROM, Endurance training, Patient/family training, Equipment evaluation/education, Neuromuscular reeducation, Fine motor coordination activities OT Plan: Skilled OT OT Frequency : 5-7 days per week OT Duration of Sessions: 60-90 min per session OT Treatments per day: 1 time per day OT - Evaluation Status: Complete Equipment Recommended: (TBD) LTG written for 3 weeks, in order to maximize Emm[place] and safety prior to returning home. Goals: Encounter Problems Encounter Problems (Active) Template: Occupational Therapy Problem: OT Chcf Goals Dates: Start: 04/20/24 Goal: Pt will be mod I with LB dressing Dates: Start: 04/20/24 Expected End: 05/11/24 Goal: Pt will be mod I with UB dressing Dates: Start: 04/20/24 Expected End: 05/11/24 Goal: Pt will be S with bathing Dates: Start: 04/20/24 Expected End: 05/11/24 Goal: Pt will be mod I with toileting including txfer Dates: Start: 04/20/24 Expected End: 05/11/24 Goal: Pt will perform tub txfer with LRAD with S. Dates: Start: 04/20/24 Expected End: 05/11/24 Goal: Pt will be mod I with snack/beverage retrieval at LRAD Dates: Start: 04/20/24 Expected End: 05/11/24 Description: Problem: OT Short Term Goals Dates: Start: 04/20/24 Goal: Pt will perform toileting with partial A Dates: Start: 04/20/24 Expected End: 04/27/24 Goal: Pt will perform LB dressing with partial A Dates: Start: 04/20/24 Expected End: 04/27/24 Goal: Pt will perform bathing with steadying A. Dates: Start: 04/20/24 Expected End: 04/27/24 Goal: Pt will be able to utilize L UE as an independent stabilizer during grooming tasks Dates: Start: 04/20/24 Expected End: 04/27/24 Goal: Pt will perform UB dressing with PETERSON, with carryover of tasha dressing technique Dates: Start: 04/20/24 Expected End: 04/27/24 Encounter Problems (Resolved) There are no resolved problems. Education Documentation ADL Training, taught by Joshua Tellez OT at 04/20/2024 1:43 PM. Learner: Patient Readiness: Acceptance Method: Explanation, Demonstration Response: Verbalizes Understanding, Demonstrated Understanding, Needs Reinforcement Body Mechanics, taught by Joshua Tellez OT at 04/20/2024 1:43 PM. Learner: Patient Readiness: Acceptance Method: Explanation, Demonstration Response: Verbalizes Understanding, Demonstrated Understanding, Needs Reinforcement Activity/Positioning, taught by Joshua Tellez OT at 04/20/2024 1:43 PM. Learner: Patient Readiness: Acceptance Method: Explanation, Demonstration Response: Verbalizes Understanding, Demonstrated Understanding, Needs Reinforcement Pain Management, taught by Joshua Tellez OT at 04/20/2024 1:43 PM. Learner: Patient Readiness: Acceptance Method: Explanation, Demonstration Response: Verbalizes Understanding, Demonstrated Understanding, Needs Reinforcement Checking Blood Sugar - Rehab, taught by Joshua Tellez OT at 04/20/2024 1:43 PM. Learner: Patient Readiness: Acceptance Method: Explanation, Demonstration Response: Verbalizes Understanding, Demonstrated Understanding, Needs Reinforcement Discharge Planning, taught by Joshua Tellez OT at 04/20/2024 1:43 PM. Learner: Patient Readiness: Acceptance Method: Explanation, Demonstration Response: Verbalizes Understanding, Demonstrated Understanding, Needs Reinforcement Staff Roles, taught by Joshua Tellez OT at 04/20/2024 1:43 PM. Learner: Patient Readiness: Acceptance Method: Explanation, Demonstration Response: Verbalizes Understanding, Demonstrated Understanding, Needs Reinforcement Fall Precautions, taught by Joshua Tellez OT at 04/20/2024 1:43 PM. Learner: Patient Readiness: Acceptance Method: Explanation, Demonstration Response: Verbalizes Understanding, Demonstrated Understanding, Needs Reinforcement Education Comments No comments found. Start/Stop Time: OT Time Calculation OT Start Time: 1200 OT Stop Time: 1330 OT Time Calculation (min): 90 min Therapy Minutes: Occupational Therapy OT Individual: 90 * MARIE Valentine - 04/20/2024 10:30 AM EST LOGISTICIAN Evaluation Subjective LOGISTICIAN Start Time: 1030 LOGISTICIAN Stop Time: 1145 LOGISTICIAN Time Calculation (min): 75 min Subjective: Pt seen upright in bed, pt cooperative and pleasant Used president practicing urologist. There is no problem list on file for this patient. Past Medical History: Diagnosis Date CVA (cerebral vascular accident) ([facility]) DM (diabetes mellitus) ([facility]) HTN (hypertension) History reviewed. No pertinent surgical history. Vitals/Pain Oxygen Therapy Oxygen Therapy: None (Room air) Objective General Visit Information: Pt stated they believe their speech is slower since the stroke ( kind of slow per automatic embroidery machine tender). Ptstated she takes care of her mother, does not drive, does not cook, manages her own medications, and manages her own finances. Pt stated there is no history of swallowing difficulties prior to current hospital stay, though pt believes status is improving. Tracheostomy/Ventilator No Swallow Baseline Assessment Baseline Assessment (Retired) Dentition: Other (Comment) (Two molars with cavities per pt) Motor Speech Motor Speech Labial ROM: Reduced left Labial Symmetry: Abnormal symmetry left Labial Strength: Within Functional Limits Labial Sensation: Within Functional Limits Lingual Appearance: [place] Lingual ROM: Within Functional Limits Lingual Symmetry: Within Functional Limits Lingual Strength: Within Functional Limits Lingual Sensation: Within Functional Limits Facial ROM: Reduced left Facial Symmetry: Other (Comment) (At rest appeared WFL) Velum: Impaired coordination Mandible: Within Functional Limits Vocal Quality: Exceptions to WFL Weak: Mild Intelligibility: Intelligibility reduced Intelligibility Ratin%-99% Consistencies Assessed Consistencies Assessed Consistencies Assessed: Yes Thin Presentation: Cup, Self Fed, Straw Oral: Within functional limits Pharyngeal: Delayed swallow, Decreased laryngeal elevation, Throat clearing - immediate, Cough - immediate Amount: 4 trials Comments: (Pt mostly cleared throat clear, wet vocal quality, and cough with additional swallow.) [place]/Mildly Thick Presentation: Cup, Self fed, Straw Oral: Within functional limits Pharyngeal: Delayed swallow, Decreased laryngeal elevation Amount: 4 trials Puree Presentation: Self Fed, Spoon Oral: Pocketing Left, Increased oral transit Pharyngeal: Delayed swallow, Decreased laryngeal elevation Amount: 3 trials Easy to Chew/Dental Soft Presentation: Bite, Self Fed Oral: Oral residue, Increased oral transit Pharyngeal: Delayed swallow, Decreased laryngeal elevation, Throat clearing - delayed Amount: 2 trials Comments: (Pt cleared throat clear with liquid wash) Solid/Regular Presentation: Bite, Self Fed Oral: Oral residue, Increased oral transit, Pocketing Left Pharyngeal: Delayed swallow, Decreased laryngeal elevation, Cough - immediate Amount: 1 trial Comments: (Pt cleared cough with liquid wash) Aspiration Risk Aspiration Risk Risk for Aspiration: Mild Recommendations: Dysphagia treatment Diet Solids Recommendation: IDDSI Level 6 Soft and Bite Sized Diet Liquids Recommendation: IDDSI Level 2 Mildly Thick Liquid Administration Via: Cup, Straw Supervision Level: Intermittent supervision with meals Compensatory Swallowing Strategies: Upright as possible for all oral intake, Remain upright for 20-30 minutes after meals, Alternate solids and liquids, Small bites/sips, Eat/feed slowly, Check for pocketing of food on the left, Lingual sweep left, Slow rate of intake Recommended Medication Route: PO Recommended Medication Administration: One pill at a time, With food Cognition Cognition Overall Cognitive Status: Within Functional Limits Following Commands: Follows one step commands without difficulty Safety/Judgement: Mild Other (Comment): 3 on COGNISTAT (3=mild impairment) Attention: Moderate Other (Comment): (COGNISTAT Digit Retention (3 = moderate deficit) also Mental Flexibility from Mini Mental 0 points) Memory: Mild Memory Comments: (Immediate recall (3/4 and 4/4); Delayed recall (3/4 ind)) Problem Solving: Mild to moderate Other (Comment): (50% accuracy) Abstract Reasoning: Mild to moderate Other (Comment): (4/6 on Hypothetical situations) Cognition Comments: (Convergent categorization: concrete (75%) and abstract (60%)) Assessment/Plan LOGISTICIAN Assessment LOGISTICIAN Assessment Results: Cognitive impairments, Swallowing impairments Dysphagia Diagnosis: Mild oral stage dysphagia, Mild pharyngeal stage dysphagia Prognosis: Good Evaluation/Treatment Tolerance: Patient tolerated treatment well Medical Staff Made Aware: Yes Comments: (Provided RN with information regarding diet modification.) Plan Treatment/Interventions: Cognitive linguistic functioning, Swallow function LOGISTICIAN Plan: Skilled LOGISTICIAN LOGISTICIAN Frequency: 5 days per week LOGISTICIAN Duration of Sessions: 45-60 min per session LOGISTICIAN Treatments per day: 1 time per day LOGISTICIAN - Evaluation Status: Complete LOGISTICIAN Discharge Recommendations: Other (Comment) (To be determined closer to d/c date.) Diet Recommendations: IDDSI 6/2 (soft/bite-sized solids and nectar thick liquids) Barriers to Discharge: (cognitive impairments, language barrier) Short Term Goals Patient will participate in further assessment of cognitive-linguistic skills. Patient will identify and utilize problem-solving intervention for task completion. Patient will complete simple calculations for time/money management. Patient will tolerate the least restrictive diet consistency to allow for safe consumption of dailymeals. Patient will demonstrate safe swallowing Intervention/techniques. * Loy Matthew RN - 04/19/2024 10:36 PM EST Problem: Cognitive: Domínguez Job Fall Risk Goal: Last Known Fall Outcome: Progressing Goal: Mobility requiring assistance of person or device Outcome: Progressing Goal: Dizziness Outcome: Progressing Goal: Medications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 BLOOD Routine 05/20/2024 7: 26 AM EST POCT GLUCOSE BLOOD Routine 05/19/2024 [...] Routine 05/18/2024 11 :08 AM EST VITAMIN B12 AND FOLATE Routine 11:05 AM EST VITAMIN D 25 HYDROXY Routine 05/18/2024 11:05 AM EST POCT GLUCOSE BLOOD Routine 05/18/2024 7: 21 AM EST EXTRA TUBES Routine 05/18/2024 6:12 AM EST LAVENDER - EDTA Routine 05/18/2024 6:12 AM EST MAGNESIUM Routine 05/18/2024 6:11 AM EST COMPREHENSIVE METABOLIC PANEL Routine 05/18/2024 6:11 AM EST POCT GLUCOSE BLOOD Routine 05/17/2024 8: 40 PM EST POCT GLUCOSE BLOOD Routine 05/17/2024 3: 51 PM EST POCT GLUCOSE BLOOD Routine 05/17/2024 11 :05 AM EST POCT GLUCOSE BLOOD Routine 05/17/2024 7: 22 AM EST COMPLETE BLOOD COUNT Routine 05/17/2024 6:09 AM EST MAGNESIUM Routine 05/17/2024 6:09 AM EST COMPREHENSIVE METABOLIC PANEL Routine 05/17/2024 6:09 AM EST POCT GLUCOSE BLOOD Routine 05/16/2024 8: 04 PM EST POCT GLUCOSE BLOOD Routine 05/16/2024 4: 36 PM EST URINALYSIS WITH REFLEX MICROSCOPIC AND CULTURE Routine 05/16/2024 4:16 PM EST GUY URINE CULTURE TUBE Routine [...] BLOOD Routine 05/13/2024 7: 14 AM EST COMPLETE BLOOD COUNT Routine 05/13/2024 5:52 AM EST CREATINE KINASE AND CKMB Routine 05/13/2024 5:52 AM EST COMPREHENSIVE METABOLIC PANEL Routine 05/13/2024 5:52 AM EST POCT GLUCOSE [...] AND DIFFERENTIAL Routine 05/06/2024 10:26 AM EST URINALYSIS WITH REFLEX MICROSCOPIC AND CULTURE Routine 05/06/2024 8:55 AM EST GUY URINE CULTURE TUBE Routine [...] AUTO DIFFERENTIAL Routine 04/20/2024 5:44 AM EST CBC AND DIFFERENTIAL Routine 04/20/2024 5:44 AM EST COMPREHENSIVE METABOLIC PANEL Routine 04/20/2024 5:44 AM EST POCT GLUCOSE BLOOD Routine 04/19/2024 8: 29 PM EST POCT GLUCOSE BLOOD Routine 04/19/2024 5: 48 PM EST documented in this encounter Results * (ABNORMAL) POCT Glucose, blood (05/31/2024 11:01 AM EST) Glucose POCT 133(H) 70 - 100 mg/dL 05/31/2024 11:02 AM EST [facility] Blood Capillary blood specimen / Unknown 05/31/2024 11:01 AM EST 05/31/2024 11:04 AM EST Neida Riveroese LAB POINT OF CARE TEST DOCKED DEVICE UNSOLICITED RESULTS Performing Organization Address City/[facility]/ZIP Co de Phone Number [facility] [address] [place] [address], * (ABNORMAL) POCT Glucose, blood (05/31/2024 7:16 AM EST) Glucose POCT 163(H) 70 - 100 mg/dL 05/31/2024 7:17 AM EST [facility] Blood Capillary blood specimen / Unknown 05/31/2024 7:16 AM EST 05/31/2024 7:18 AM EST Neida Castellanos Lynn LAB POINT OF CARE TEST DOCKED DEVICE UNSOLICITED RESULTS [facility] [address] [place] [address], [place] [phone] * (ABNORMAL) POCT Glucose, blood (05/30/2024 8:02 PM EST) Glucose POCT 238(H) 70 - 100 mg/dL 05/30/2024 8:02 PM EST [facility] Blood Capillary blood specimen / Unknown 05/30/2024 8:02 PM EST 05/30/2024 8:03 PM EST Neida Riveroese LAB POINT OF CARE TEST DOCKED DEVICE UNSOLICITED RESULTS Performing Organization Address City/[facility]/ZIP Co de Phone Number [facility] [address] [place] [address], [place] [phone] * (ABNORMAL) POCT Glucose, blood (05/30/2024 4:18 PM EST) Glucose POCT 121(H) 70 - 100 mg/dL 05/30/2024 4:19 PM EST [facility] Blood Capillary blood specimen / Unknown 05/30/2024 4:18 PM EST 05/30/2024 4:20 PM EST Neida Bailey [facility] POINT OF CARE TEST DOCKED DEVICE UNSOLICITED RESULTS Performing Organization Address [facility]/ZIP Co de Phone Number [facility] [address] [place] [address], [place] [phone] * Culture urine (05/30/2024 4:08 PM EST) Culture, Urine No growth 05/31/2024 10:19 AM EST [facility] Urine Urine specimen obtained by clean catch procedure / Unknown Non-blood Collection / Unknown 05/30/2024 4:08 PM EST 05/30/2024 4:42 PM EST Madeline SALINAS LAB MICROBIOLOGY - G ENERAL ORDERABLES [facility] [address] [place] [address], [place] [phone] * Guy urine culture tube (05/30/2024 4:08 PM EST) Extra Tube Hold for add-ons. 05/30/2024 6:02 PM [facility] Comment:Auto resulted. Urine Urine specimen obtained by clean catch procedure / Unknown Non-blood Collection / Unknown 05/30/2024 4:08 PM EST 05/30/2024 4:21 PM EST Madeline SALINAS LAB URINE ORDERABLES [facility] [address] [place] [address], [place] [phone] * (ABNORMAL) Urinalysis with reflex microscopic and culture (05/30/2024 4:08 PM EST) Specific [place] Urine 1.016 1.003 - 1.030 LAB URINALYSIS - AUTOMATED METHOD 05/30/2024 4:42 PM [facility] pH, Urine 8.0 5.0 - 8.0 pH LAB URINALYSIS - AUTOMATED METHOD 05/30/2024 4:42 PM [facility] Leukocytes, Urine Small(A) Negative LAB URINALYSIS - AUTOMATED METHOD 05/30/2024 4:42 PM [facility] Nitrite, Urine Negative Negative LAB URINALYSIS - AUTOMATED METHOD 05/30/2024 4:42 PM [facility] Protein, Urine 30(A) <=Trace mg/dL LAB URINALYSIS - AUTOMATED METHOD 05/30/2024 4:42 PM [facility] Glucose, Urine Negative Negative mg/dL LAB URINALYSIS - AUTOMATED METHOD 05/30/2024 4:42 PM [facility] Ketones, Urine Negative Negative mg/dL LAB URINALYSIS - AUTOMATED METHOD 05/30/2024 4:42 PM [facility] Urobilinogen , Urine 0.2 0.2 - 1.0 mg/dL LAB URINALYSIS - AUTOMATED METHOD 05/30/2024 4:42 PM [facility] Bilirubin, Urine Negative Negative LAB URINALYSIS - AUTOMATED METHOD 05/30/2024 4:42 PM [facility] Blood, Urine Large(A) Negative LAB URINALYSIS - AUTOMATED METHOD 05/30/2024 4:42 PM [facility] RBC, Urine 1,555.8(H) 0 - 4 /HPF LAB URINALYSIS - AUTOMATED METHOD 05/30/2024 4:42 PM [facility] WBC, Urine 2.1 0 - 4 /HPF LAB URINALYSIS - AUTOMATED METHOD 05/30/2024 4:42 PM [facility] Squamous Epithelial, Urine 32 0 - 60 /LPF LAB URINALYSIS - AUTOMATED METHOD 05/30/2024 4:42 PM [facility] Bacteria, Urine Negative Negative /HPF LAB URINALYSIS - AUTOMATED METHOD 05/30/2024 4:42 PM [facility] Hyaline Casts, Urine 0.8 0 - 3 /LPF LAB URINALYSIS - AUTOMATED METHOD 05/30/2024 4:42 PM [facility] Urine Urine specimen obtained by clean catch procedure / Unknown Non-blood Collection / Unknown 05/30/2024 4:08 PM EST 05/30/2024 4:21 PM EST Madeline SALINAS LAB URINE ORDERABLES [facility] [address] [place] [address], * Magnesium (05/30/2024 1:08 PM EST) Magnesium 2.0 1.9 - 2.6 mg/dL LAB CHEMISTRY METHOD 05/30/2024 3:25 PM [facility] Blood Venous blood specimen / Unknown Venipuncture / Unknown 05/30/2024 1:08 PM EST 05/30/2024 1:14 PM EST Madeline SALINAS LAB BLOOD ORDERABLES [facility] [address] [place] [address], * (ABNORMAL) Complete blood count (05/30/2024 1:08 PM EST) WBC 6.1 4.8 - 10.8 K/mcL LAB HEMETOLOGY METHOD 05/30/2024 1:56 PM [facility] RBC 4.00 3.80 - 4.80 M/mcL LAB HEMETOLOGY METHOD 05/30/2024 1:56 PM [facility] Hemoglobin 11.7 11.5 - 16.0 g/dL LAB HEMETOLOGY METHOD 05/30/2024 1:56 PM [facility] Hematocrit 35.4 35.0 - 47.0 % LAB HEMETOLOGY METHOD 05/30/2024 1:56 PM [facility] MCV 87.6 79.0 - 98.0 FL LAB HEMETOLOGY METHOD 05/30/2024 1:56 PM [facility] MCH 29.0 27.0 - 32.0 pcg LAB HEMETOLOGY METHOD 05/30/2024 1:56 PM [facility] MCHC 33.1 32.0 - 37.0 g/dL LAB HEMETOLOGY METHOD 05/30/2024 1:56 PM [facility] RDW 13.0 11.0 - 15.0 % LAB HEMETOLOGY METHOD 05/30/2024 1:56 PM [facility] Platelets 300 130 - 400 K/mcL LAB HEMETOLOGY METHOD 05/30/2024 1:56 PM [facility] MPV 11.6(H) 7.0 - 11.0 FL LAB HEMETOLOGY METHOD 05/30/2024 1:56 PM EST [facility] NRBC 0.0 <1.0 % LAB HEMETOLOGY METHOD 05/30/2024 1:56 PM EST [facility] NRBC Absolute 0.00 <0.10 K/mcL LAB HEMETOLOGY METHOD 05/30/2024 1:56 PM [facility] Blood Venous blood specimen / Unknown Venipuncture / Unknown 05/30/2024 1:08 PM EST 05/30/2024 1:14 PM EST Madeline SALINAS LAB BLOOD ORDERABLES [facility] [address] [place] [address], * (ABNORMAL) Comprehensive metabolic panel (05/30/2024 1:08 PM EST) Sodium 138 133 - 145 mmol/L LAB CHEMISTRY METHOD 05/30/2024 3:34 PM [facility] Potassium 4.2 3.5 - 5.5 mmol/L LAB CHEMISTRY METHOD 05/30/2024 3:34 PM [facility] Chloride 104 96 - 110 mmol/L LAB CHEMISTRY METHOD 05/30/2024 3:34 PM [facility] CO2 29 21 - 32 mmol/L LAB CHEMISTRY METHOD 05/30/2024 3:34 PM [facility] Anion Gap 5 3 - 11 LAB CHEMISTRY METHOD 05/30/2024 3:34 PM [facility] Glucose 144(H) 70 - 100 mg/dL LAB CHEMISTRY METHOD 05/30/2024 3:34 PM [facility] BUN 14 5 - 25 mg/dL LAB CHEMISTRY METHOD 05/30/2024 3:34 PM [facility] Creatinine 0.79 0.50 - 1.10 mg/dL LAB CHEMISTRY METHOD 05/30/2024 3:34 PM [facility] eGFR 93 >=60 mL/min/1. 73m2 LAB CHEMISTRY METHOD 05/30/2024 3:34 PM [facility] Comment:Calculation based on the??Chronic Kidney Disease Epidemiology Collaboration (CKD-EPI) equation refit??without adjustment for race. BUN/Creatinine Ratio 17.7 LAB CHEMISTRY METHOD 05/30/2024 3:34 PM [facility] Calcium 9.1 8.5 - 10.5 mg/dL LAB CHEMISTRY METHOD 05/30/2024 3:34 PM [facility] AST (SGOT) 24 10 - 42 unit/L LAB CHEMISTRY METHOD 05/30/2024 3:34 PM [facility] ALT (SGPT) 30 10 - 60 unit/L LAB CHEMISTRY METHOD 05/30/2024 3:34 PM [facility] Alkaline Phosphatase 71 42 - 121 unit/L LAB CHEMISTRY METHOD 05/30/2024 3:34 PM [facility] Total Protein 6.3 6.0 - 8.0 g/dL LAB CHEMISTRY METHOD 05/30/2024 3:34 PM [facility] Albumin 3.2 3.2 - 5.0 g/dL LAB CHEMISTRY METHOD 05/30/2024 3:34 PM [facility] Total Bilirubin 0.3 0.0 - 1.4 mg/dL LAB CHEMISTRY METHOD 05/30/2024 3:34 PM [facility] Blood Venous blood specimen / Unknown Venipuncture / Unknown 05/30/2024 1:08 PM EST 05/30/2024 1:14 PM EST Madeline SALINAS LAB BLOOD ORDERABLES [facility] [address] [place] [address], * POCT Glucose, blood (05/30/2024 11:03 AM EST) [facility] Glucose POCT 100 70 - 100 mg/dL 05/30/2024 11:04 AM EST [facility] Blood Capillary blood specimen / Unknown 05/30/2024 11:03 AM EST 05/30/2024 11:05 AM EST Neida Bailey DO LAB POINT OF CARE TEST DOCKED DEVICE UNSOLICITED RESULTS [facility] [address] [place] [address], * Respiratory virus panel molecular study (05/30/2024 10:56 AM EST) [facility] Adenovirus Detection by PCR Not Detected Not Detected LAB MICROBIOLOGY METHOD 05/30/2024 12:07 PM [facility] Influenza A PCR Not Detected Not Detected LAB MICROBIOLOGY METHOD 05/30/2024 12:07 PM [facility] Influenza B PCR Not Detected Not Detected LAB MICROBIOLOGY METHOD 05/30/2024 12:07 PM [facility] Coronavirus 229E Not Detected Not Detected LAB MICROBIOLOGY METHOD 05/30/2024 12:07 PM [facility] Coronavirus HKU1 Not Detected Not Detected LAB MICROBIOLOGY METHOD 05/30/2024 12:07 PM [facility] Coronavirus OC43 Not Detected Not Detected LAB MICROBIOLOGY METHOD 05/30/2024 12:07 PM [facility] Coronavirus NL63 Not Detected Not Detected LAB MICROBIOLOGY METHOD 05/30/2024 12:07 PM [facility] Parainfluenza Virus 1 Not Detected Not Detected LAB MICROBIOLOGY METHOD 05/30/2024 12:07 PM [facility] Parainfluenza Virus 2 Not Detected Not Detected LAB MICROBIOLOGY METHOD 05/30/2024 12:07 PM [facility] Parainfluenza Virus 3 Not Detected Not Detected LAB MICROBIOLOGY METHOD 05/30/2024 12:07 PM [facility] Parainfluenza Virus 4 Not Detected Not Detected LAB MICROBIOLOGY METHOD 05/30/2024 12:07 PM [facility] RSV PCR Not Detected Not Detected LAB MICROBIOLOGY METHOD 05/30/2024 12:07 PM [facility] Human Metapneumovirus A and B Not Detected Not Detected LAB MICROBIOLOGY METHOD 05/30/2024 12:07 PM [facility] Rhinovirus/Entero virus Not Detected Not Detected LAB MICROBIOLOGY METHOD 05/30/2024 12:07 PM [facility] Bordetella pertussis Not Detected Not Detected LAB MICROBIOLOGY METHOD 05/30/2024 12:07 PM [facility] Bordetella parapertussis Not Detected Not Detected LAB MICROBIOLOGY METHOD 05/30/2024 12:07 PM [facility] Mycoplasma pneumo by PCR Not Detected Not Detected LAB MICROBIOLOGY METHOD 05/30/2024 12:07 PM [facility] Chlamydia pneumoniae Not Detected Not Detected LAB MICROBIOLOGY METHOD 05/30/2024 12:07 PM [facility] SARS COV-2 Not Detected Not Detected LAB MICROBIOLOGY METHOD 05/30/2024 12:07 PM [facility] Swab Both anterior nares / Unknown Non-blood Collection / Unknown 05/30/2024 10:56 AM EST 05/30/2024 11:03 AM EST [facility] - 05/30/2024 12:07 PM EST Testing was performed using the [employer] Respiratory Pathogen PCR Assay. All results must [...] - G ENERAL ORDERABLES Performing Organization Address [facility]/ZIP Co de Phone Number [facility] [address] [place] [address], * (ABNORMAL) POCT Glucose, blood (05/30/2024 9:55 AM EST) Glucose POCT 208(H) 70 - 100 mg/dL 05/30/2024 9:56 AM EST [facility] Blood Capillary blood specimen / Unknown 05/30/2024 9:55 AM EST 05/30/2024 9:57 AM EST Neida Bailey DO LAB POINT OF CARE TEST DOCKED DEVICE UNSOLICITED RESULTS Performing Organization Address [facility] Co de Phone Number [facility] [address] [place] [address], * (ABNORMAL) POCT Glucose, blood (05/30/2024 7:22 AM EST) Glucose POCT 155(H) 70 - 100 mg/dL 05/30/2024 7:22 AM EST [facility] Blood Capillary blood specimen / Unknown 05/30/2024 7:22 AM EST 05/30/2024 7:23 AM EST Neida Bailey DO LAB POINT OF CARE TEST DOCKED DEVICE UNSOLICITED RESULTS Performing Organization Address City/[facility]/ZIP Co de Phone Number [facility] [address] [place] [address], [place] [phone] * (ABNORMAL) POCT Glucose, blood (05/29/2024 8:34 PM EST) Glucose POCT 116(H) 70 - 100 mg/dL 05/29/2024 8:37 PM EST [facility] Blood Capillary blood specimen / Unknown 05/29/2024 8:34 PM EST 05/29/2024 8:38 PM EST Neida Bailey DO LAB POINT OF CARE TEST DOCKED DEVICE UNSOLICITED RESULTS Performing Organization Address [facility] Co de Phone Number [facility] [address] [place] [address], [place] [phone] * (ABNORMAL) POCT Glucose, blood (05/29/2024 4:55 PM EST) Glucose POCT 161(H) 70 - 100 mg/dL 05/29/2024 4:56 PM EST [facility] Blood Capillary blood specimen / Unknown 05/29/2024 4:55 PM EST 05/29/2024 4:58 PM EST Neida Bailey LAB POINT OF CARE TEST DOCKED DEVICE UNSOLICITED RESULTS Performing Organization Address [facility] Co de Phone Number [facility] [address] [place] [address], [place] [phone] * (ABNORMAL) POCT Glucose, blood (05/29/2024 3:31 PM EST) Glucose POCT 183(H) 70 - 100 mg/dL 05/29/2024 3:31 PM EST [facility] Blood Capillary blood specimen / Unknown 05/29/2024 3:31 PM EST 05/29/2024 3:32 PM EST Neida Bailey LAB POINT OF CARE TEST DOCKED DEVICE UNSOLICITED RESULTS Performing Organization Address [facility] Co de Phone Number [facility] [address] [place] [address], [place] [phone] * (ABNORMAL) POCT Glucose, blood (05/29/2024 2:39 PM EST) Glucose POCT 152(H) 70 - 100 mg/dL 05/29/2024 2:39 PM EST [facility] Blood Capillary blood specimen / Unknown 05/29/2024 2:39 PM EST 05/29/2024 2:40 PM EST Neida Rivero[facility]terPoint LAB POINT OF CARE TEST DOCKED DEVICE UNSOLICITED RESULTS Performing Organization Address City/[facility]/ZIP Co de Phone Number [facility] [address] [place] [address], [place] [phone] * (ABNORMAL) POCT Glucose, blood (05/29/2024 7:20 AM EST) Glucose POCT 189(H) 70 - 100 mg/dL 05/29/2024 7:21 AM EST [facility] Blood Capillary blood specimen / Unknown 05/29/2024 7:20 AM EST 05/29/2024 7:22 AM EST Neidamikal LutzBookioo LAB POINT OF CARE TEST DOCKED DEVICE UNSOLICITED RESULTS Performing Organization Address [facility] Co de Phone Number [facility] [address] [place] [address], [place] [phone] * (ABNORMAL) POCT Glucose, blood (05/28/2024 8:56 PM EST) Glucose POCT 134(H) 70 - 100 mg/dL 05/28/2024 8:57 PM EST [facility] Blood Capillary blood specimen / Unknown 05/28/2024 8:56 PM EST 05/28/2024 8:58 PM EST Neida A Nebo DO LAB POINT OF CARE TEST DOCKED DEVICE UNSOLICITED RESULTS Performing Organization Address City/[facility]/ZIP Co de Phone Number [facility] [address] [place] [address], [place] [phone] * POCT Glucose, blood (05/28/2024 3:39 PM EST) Glucose POCT 90 70 - 100 mg/dL 05/28/2024 3:41 PM EST [facility] Blood Capillary blood specimen / Unknown 05/28/2024 3:39 PM EST 05/28/2024 3:42 PM EST Neida Riveroese DO LAB POINT OF CARE TEST DOCKED DEVICE UNSOLICITED RESULTS Performing Organization Address City/[facility]/ZIP Co de Phone Number [facility] [address] [place] [address], * POCT Glucose, blood (05/28/2024 11:28 AM EST) Glucose POCT 96 70 - 100 mg/dL 05/28/2024 11:28 AM EST [facility] Blood Capillary blood specimen / Unknown 05/28/2024 11:28 AM EST 05/28/2024 11:29 AM EST Neida Castellanos Lynn DO LAB POINT OF CARE TEST DOCKED DEVICE UNSOLICITED RESULTS Performing Organization Address [facility] Co de Phone Number [facility] [address] [place] [address], [place] [phone] * (ABNORMAL) POCT Glucose, blood (05/28/2024 7:07 AM EST) Glucose POCT 147(H) 70 - 100 mg/dL 05/28/2024 7:08 AM EST [facility] Blood Capillary blood specimen / Unknown 05/28/2024 7:07 AM EST 05/28/2024 7:10 AM EST Neida Riveroese DO LAB POINT OF CARE TEST DOCKED DEVICE UNSOLICITED RESULTS Performing Organization Address City/[facility]/ZIP Co de Phone Number [facility] [address] [place] [address], * (ABNORMAL) POCT Glucose, blood (05/27/2024 8:06 PM EST) Glucose POCT 174(H) 70 - 100 mg/dL 05/27/2024 8:06 PM EST [facility] Blood Capillary blood specimen / Unknown 05/27/2024 8:06 PM EST 05/27/2024 8:07 PM EST Neida Castellanos Lynn DO LAB POINT OF CARE TEST DOCKED DEVICE UNSOLICITED RESULTS Performing Organization Address City/[facility]/ZIP Co de Phone Number [facility] [address] [place] [address], [place] [phone] * POCT Glucose, blood (05/27/2024 3:37 PM EST) Glucose POCT 95 70 - 100 mg/dL 05/27/2024 3:37 PM EST [facility] Blood Capillary blood specimen / Unknown 05/27/2024 3:37 PM EST 05/27/2024 3:38 PM EST Neida Riveroese LAB POINT OF CARE TEST DOCKED DEVICE UNSOLICITED RESULTS Performing Organization Address City/[facility]/ZIP Co de Phone Number [facility] [address] [place] [address], [place] [phone] * (ABNORMAL) POCT Glucose, blood (05/27/2024 11:17 AM EST) Glucose POCT 114(H) 70 - 100 mg/dL 05/27/2024 11:17 AM EST [facility] Blood Capillary blood specimen / Unknown 05/27/2024 11:17 AM EST 05/27/2024 11:18 AM EST Neida Rivero[employer] LAB POINT OF CARE TEST DOCKED DEVICE UNSOLICITED RESULTS Performing Organization Address [facility]/ZIP Co de Phone Number [facility] [address] [place] [address], [place] [phone] * (ABNORMAL) POCT Glucose, blood (05/27/2024 7:15 AM EST) [facility] Glucose POCT 197(H) 70 - 100 mg/dL 05/27/2024 7:16 AM EST [facility] Blood Capillary blood specimen / Unknown 05/27/2024 7:15 AM EST 05/27/2024 7:17 AM EST [facility] POINT [facility]ARE TEST DOCKED DEVICE UNSOLICITED RESULTS Performing Organization Address [facility] Co de Phone Number [facility] [address] [place] [address], * Lavender tube (05/27/2024 5:43 AM EST) [facility] Extra Tube Hold for add-ons. 05/27/2024 8:01 AM EST [facility] Comment:Auto resulted. Blood Venous blood specimen / Unknown Venipuncture / Unknown 05/27/2024 5:43 AM EST 05/27/2024 6:13 AM EST [facility] BLOOD ORDERAB LES Performing Organization Address [facility]/ZIP Co de Phone Number [facility] [address] [place] [address], [place] [phone] * (ABNORMAL) Vitamin D 25 hydroxy (05/27/2024 5:43 AM EST) [facility] Vit D, 25-Hydroxy 25.8(L) 30.0 - 80.0 ng/mL LAB CHEMISTRY METHOD 05/27/2024 9:40 AM EST [facility] Blood Venous blood specimen / Unknown Venipuncture / Unknown 05/27/2024 5:43 AM EST 05/27/2024 6:11 AM EST Leah Philippe NP LAB BLOOD OR DERABLES Performing Organization Address City/[facility]/ZIP Co de Phone Number [facility] [address] [place] [address], * (ABNORMAL) Magnesium (05/27/2024 5:43 AM EST) Pathologist [facility] Magnesium 1.8(L) 1.9 - 2.6 mg/dL LAB CHEMISTRY METHOD 05/27/2024 6:48 AM EST [facility] Blood Venous blood specimen / Unknown Venipuncture / Unknown 05/27/2024 5:43 AM EST 05/27/2024 6:11 AM EST Leah AvilaJordin GOMEZ LAB BLOOD OR DERABLES Performing Organization Address City/[facility]/ZIP Co de Phone Number [facility] [address] [place] [address], * (ABNORMAL) Comprehensive metabolic panel (05/27/2024 5:43 AM EST) Pathologist [facility] Sodium 137 133 - 145 mmol/L LAB CHEMISTRY METHOD 05/27/2024 6:48 AM [facility] Potassium 4.3 3.5 - 5.5 mmol/L LAB CHEMISTRY METHOD 05/27/2024 6:48 AM [facility] Chloride 107 96 - 110 mmol/L LAB CHEMISTRY METHOD 05/27/2024 6:48 AM EST [facility] CO2 24 21 - 32 mmol/L LAB CHEMISTRY METHOD 05/27/2024 6:48 AM [facility] Anion Gap 6 3 - 11 LAB CHEMISTRY METHOD 05/27/2024 6:48 AM EST [facility] Glucose 180(H) 70 - 100 mg/dL LAB CHEMISTRY METHOD 05/27/2024 6:48 AM [facility] BUN 15 5 - 25 mg/dL LAB CHEMISTRY METHOD 05/27/2024 6:48 AM [facility] Creatinine 0.69 0.50 - 1.10 mg/dL LAB CHEMISTRY METHOD 05/27/2024 6:48 AM [facility] eGFR 108 >=60 mL/min/1. 73m2 LAB CHEMISTRY METHOD 05/27/2024 6:48 AM [facility] Comment:Calculation based on the??Chronic Kidney Disease Epidemiology Collaboration (CKD-EPI) equation refit??without adjustment for race. BUN/Creatinine Ratio 21.7 LAB CHEMISTRY METHOD 05/27/2024 6:48 AM [facility] Calcium 8.5 8.5 - 10.5 mg/dL LAB CHEMISTRY METHOD 05/27/2024 6:48 AM [facility] AST (SGOT) 11 10 - 42 unit/L LAB CHEMISTRY METHOD 05/27/2024 6:48 AM [facility] ALT (SGPT) 20 10 - 60 unit/L LAB CHEMISTRY METHOD 05/27/2024 6:48 AM [facility] Alkaline Phosphatase 76 42 - 121 unit/L LAB CHEMISTRY METHOD 05/27/2024 6:48 AM [facility] Total Protein 6.3 6.0 - 8.0 g/dL LAB CHEMISTRY METHOD 05/27/2024 6:48 AM [facility] Albumin 3.0(L) 3.2 - 5.0 g/dL LAB CHEMISTRY METHOD 05/27/2024 6:48 AM [facility] Total Bilirubin 0.3 0.0 - 1.4 mg/dL LAB CHEMISTRY METHOD 05/27/2024 6:48 AM [facility] Blood Venous blood specimen / Unknown Venipuncture / Unknown 05/27/2024 5:43 AM EST 05/27/2024 6:11 AM EST Leah Philippe NP LAB BLOOD OR DERABLES Performing Organization Address [facility]/ZIP Co de Phone Number [facility] [address] [place] [address], [place] [phone] * (ABNORMAL) POCT Glucose, blood (2024 8:15 PM EST) Glucose POCT 197(H) 70 - 100 mg/dL 2024 8:15 PM EST [facility] Blood Capillary blood specimen / Unknown 2024 8:15 PM EST 2024 8:16 PM EST Neida Bailey DO LAB POINT OF CARE TEST DOCKED DEVICE UNSOLICITED RESULTS Performing Organization Address [facility] Co de Phone Number [facility] [address] [place] [address], [place] [phone] * (ABNORMAL) POCT Glucose, blood (2024 3:58 PM EST) Glucose POCT 128(H) 70 - 100 mg/dL 2024 3:58 PM EST [facility] Blood Capillary blood specimen / Unknown 2024 3:58 PM EST 2024 4:00 PM EST Neida Bailey DO LAB POINT OF CARE TEST DOCKED DEVICE UNSOLICITED RESULTS Performing Organization Address [facility]/ZIP Co de Phone Number [facility] [address] [place] [address], [place] [phone] * (ABNORMAL) POCT Glucose, blood (2024 11:12 AM EST) Glucose POCT 186(H) 70 - 100 mg/dL 2024 11:12 AM EST [facility] Blood Capillary blood specimen / Unknown 2024 11:12 AM EST 2024 11:13 AM EST Neidamikal Bailey DO LAB POINT OF CARE TEST DOCKED DEVICE UNSOLICITED RESULTS Performing Organization Address City/[facility]/ZIP Co de Phone Number [facility] [address] [place] [address], [place] [phone] * (ABNORMAL) POCT Glucose, blood (2024 7:15 AM EST) Glucose POCT 181(H) 70 - 100 mg/dL 2024 7:16 AM EST [facility] Blood Capillary blood specimen / Unknown 2024 7:15 AM EST 2024 7:17 AM EST Neida A Lynn DO LAB POINT OF CARE TEST DOCKED DEVICE UNSOLICITED RESULTS Performing Organization Address [facility] Co de Phone Number [facility] [address] [place] [address], [place] [phone] * (ABNORMAL) POCT Glucose, blood (05/25/2024 7:59 PM EST) Glucose POCT 172(H) 70 - 100 mg/dL 05/25/2024 7:59 PM EST [facility] Blood Capillary blood specimen / Unknown 05/25/2024 7:59 PM EST 05/25/2024 8:00 PM EST Neida A Lynn DO LAB POINT OF CARE TEST DOCKED DEVICE UNSOLICITED RESULTS Performing Organization Address City/[facility]/ZIP Co de Phone Number [facility] [address] [place] [address], [place] [phone] * POCT Glucose, blood (05/25/2024 3:25 PM EST) Glucose POCT 93 70 - 100 mg/dL 05/25/2024 3:27 PM EST [facility] Blood Capillary blood specimen / Unknown 05/25/2024 3:25 PM EST 05/25/2024 3:28 PM EST Neida Emanuel Lynn DO LAB POINT OF CARE TEST DOCKED DEVICE UNSOLICITED RESULTS Performing Organization Address City/[facility]/ZIP Co de Phone Number [facility] [address] [place] [address], * (ABNORMAL) POCT Glucose, blood (05/25/2024 10:57 AM EST) Glucose POCT 154(H) 70 - 100 mg/dL 05/25/2024 10:57 AM EST [facility] Blood Capillary blood specimen / Unknown 05/25/2024 10:57 AM EST 05/25/2024 10:58 AM EST Neida Riveroese [employer] LAB POINT OF CARE TEST DOCKED DEVICE UNSOLICITED RESULTS Performing Organization Address [facility]/ZIP Co de Phone Number [facility] [address] [place] [address], [place] [phone] * (ABNORMAL) POCT Glucose, blood (05/25/2024 7:31 AM EST) Glucose POCT 179(H) 70 - 100 mg/dL 05/25/2024 7:31 AM EST [facility] Blood Capillary blood specimen / Unknown 05/25/2024 7:31 AM EST 05/25/2024 7:32 AM EST Neida Castellanos Lynn DO LAB POINT OF CARE TEST DOCKED DEVICE UNSOLICITED RESULTS [facility] [address] [place] [address], [place] [phone] * (ABNORMAL) POCT Glucose, blood (05/24/2024 8:10 PM EST) Glucose POCT 131(H) 70 - 100 mg/dL 05/24/2024 8:11 PM EST [facility] Blood Capillary blood specimen / Unknown 05/24/2024 8:10 PM EST 05/24/2024 8:12 PM EST Neida River[employer] LAB POINT OF CARE TEST DOCKED DEVICE UNSOLICITED RESULTS Performing Organization Address [facility] Co de Phone Number [facility] [address] [place] [address], [place] [phone] * (ABNORMAL) POCT Glucose, blood (05/24/2024 3:52 PM EST) Glucose POCT 115(H) 70 - 100 mg/dL 05/24/2024 3:52 PM EST [facility] Blood Capillary blood specimen / Unknown 05/24/2024 3:52 PM EST 05/24/2024 3:53 PM EST Neida Bailey DO LAB POINT OF CARE TEST DOCKED DEVICE UNSOLICITED RESULTS [facility] [address] [place] [address], [place] [phone] * POCT Glucose, blood (05/24/2024 11:30 AM EST) Glucose POCT 95 70 - 100 mg/dL 05/24/2024 11:30 AM EST [facility] Blood Capillary blood specimen / Unknown 05/24/2024 11:30 AM EST 05/24/2024 11:32 AM EST Neida Bailey DO LAB POINT OF CARE TEST DOCKED DEVICE UNSOLICITED RESULTS Performing Organization Address [facility]/ZIP Co de Phone Number [facility] [address] [place] [address], [place] [phone] * (ABNORMAL) POCT Glucose, blood (05/24/2024 7:31 AM EST) Glucose POCT 136(H) 70 - 100 mg/dL 05/24/2024 7:32 AM EST [facility] Blood Capillary blood specimen / Unknown 05/24/2024 7:31 AM EST 05/24/2024 7:33 AM EST Neida Bailey LAB POINT OF CARE TEST DOCKED DEVICE UNSOLICITED RESULTS Performing Organization Address [facility] Co de Phone Number [facility] [address] [place] [address], [place] [phone] * (ABNORMAL) POCT Glucose, blood (05/23/2024 8:15 PM EST) Glucose POCT 154(H) 70 - 100 mg/dL 05/23/2024 8:16 PM EST [facility] Blood Capillary blood specimen / Unknown 05/23/2024 8:15 PM EST 05/23/2024 8:17 PM EST Neida Bailey LAB POINT OF CARE TEST DOCKED DEVICE UNSOLICITED RESULTS Performing Organization Address [facility]/ZIP Co de Phone Number [facility] [address] [place] [address], [place] [phone] * (ABNORMAL) POCT Glucose, blood (05/23/2024 3:49 PM EST) Glucose POCT 117(H) 70 - 100 mg/dL 05/23/2024 3:55 PM EST [facility] Blood Capillary blood specimen / Unknown 05/23/2024 3:49 PM EST 05/23/2024 3:56 PM EST Neida Bailey DO LAB POINT OF CARE TEST DOCKED DEVICE UNSOLICITED RESULTS Performing Organization Address [facility]/ZIP Co de Phone Number [facility] [address] [place] [address], [place] [phone] * POCT Glucose, blood (05/23/2024 11:25 AM EST) Glucose POCT 72 70 - 100 mg/dL 05/23/2024 11:25 AM EST [facility] Blood Capillary blood specimen / Unknown 05/23/2024 11:25 AM EST 05/23/2024 11:27 AM EST Neidamikal Bailey DO LAB POINT OF CARE TEST DOCKED DEVICE UNSOLICITED RESULTS Performing Organization Address [facility] de Phone Number [facility] [address] [place] [address], [place] [phone] * (ABNORMAL) POCT Glucose, blood (05/23/2024 7:27 AM EST) Glucose POCT 172(H) 70 - 100 mg/dL 05/23/2024 7:27 AM EST [facility] Blood Capillary blood specimen / Unknown 05/23/2024 7:27 AM EST 05/23/2024 7:29 AM EST Neida Bailey DO LAB POINT OF CARE TEST DOCKED DEVICE UNSOLICITED RESULTS Performing Organization Address [facility]/ZIP Co de Phone Number [facility] [address] [place] [address], [place] [phone] * (ABNORMAL) POCT Glucose, blood (05/22/2024 8:01 PM EST) Glucose POCT 197(H) 70 - 100 mg/dL 05/22/2024 8:01 PM EST [facility] Blood Capillary blood specimen / Unknown 05/22/2024 8:01 PM EST 05/22/2024 8:02 PM EST Neida Riveroese DO LAB POINT OF CARE TEST DOCKED DEVICE UNSOLICITED RESULTS [facility] [address] [place] [address], [place] [phone] * POCT Glucose, blood (05/22/2024 4:05 PM EST) Glucose POCT 99 70 - 100 mg/dL 05/22/2024 4:06 PM EST [facility] Blood Capillary blood specimen / Unknown 05/22/2024 4:05 PM EST 05/22/2024 4:07 PM EST Neida Bailey DO LAB POINT OF CARE TEST DOCKED DEVICE UNSOLICITED RESULTS Performing Organization Address [facility]/ZIP Co de Phone Number [facility] [address] [place] [address], [place] [phone] * POCT Glucose, blood (05/22/2024 11:06 AM EST) Glucose POCT 90 70 - 100 mg/dL 05/22/2024 11:06 AM EST [facility] Blood Capillary blood specimen / Unknown 05/22/2024 11:06 AM EST 05/22/2024 11:07 AM EST Neida Lutzabrese DO LAB POINT OF CARE TEST DOCKED DEVICE UNSOLICITED RESULTS Performing Organization Address City/[facility]/ZIP Co de Phone Number [facility] [address] [place] [address], [place] [phone] * (ABNORMAL) POCT Glucose, blood (05/22/2024 7:25 AM EST) Glucose POCT 138(H) 70 - 100 mg/dL 05/22/2024 7:25 AM [facility] Blood Capillary blood specimen / Unknown 05/22/2024 7:25 AM EST 05/22/2024 7:26 AM EST Neida Bailey DO LAB POINT OF CARE TEST DOCKED DEVICE UNSOLICITED RESULTS Performing Organization Address City/[facility]/ZIP Co de Phone Number [facility] [address] [place] [address], [place] [phone] * (ABNORMAL) Magnesium (05/22/2024 5:52 AM EST) [facility] Magnesium 1.7(L) 1.9 - 2.6 mg/dL LAB CHEMISTRY METHOD 05/22/2024 7:44 AM EST [facility] Blood Venous blood specimen / Unknown Venipuncture / Unknown 05/22/2024 5:52 AM EST 05/22/2024 6:46 AM EST Madeline Morales PA LAB BLOOD ORDERABLES [facility] [address] [place] [address], [place] [phone] * (ABNORMAL) Complete blood count (05/22/2024 5:52 AM EST) Pathologist [facility] WBC 7.5 4.8 - 10.8 K/mcL LAB HEMETOLOGY METHOD 05/22/2024 7:06 AM EST [facility] RBC 4.10 3.80 - 4.80 M/mcL LAB HEMETOLOGY METHOD 05/22/2024 7:06 AM [facility] Hemoglobin 11.9 11.5 - 16.0 g/dL LAB HEMETOLOGY METHOD 05/22/2024 7:06 AM [facility] Hematocrit 36.3 35.0 - 47.0 % LAB HEMETOLOGY METHOD 05/22/2024 7:06 AM [facility] MCV 89.6 79.0 - 98.0 FL LAB HEMETOLOGY METHOD 05/22/2024 7:06 AM [facility] MCH 29.4 27.0 - 32.0 pcg LAB HEMETOLOGY METHOD 05/22/2024 7:06 AM [facility] MCHC 32.8 32.0 - 37.0 g/dL LAB HEMETOLOGY METHOD 05/22/2024 7:06 AM [facility] RDW 13.1 11.0 - 15.0 % LAB HEMETOLOGY METHOD 05/22/2024 7:06 AM [facility] Platelets 297 130 - 400 K/mcL LAB HEMETOLOGY METHOD 05/22/2024 7:06 AM [facility] MPV 11.9(H) 7.0 - 11.0 FL LAB HEMETOLOGY METHOD 05/22/2024 7:06 AM [facility] NRBC 0.0 <1.0 % LAB HEMETOLOGY METHOD 05/22/2024 7:06 AM [facility] NRBC Absolute 0.00 <0.10 K/mcL LAB HEMETOLOGY METHOD 05/22/2024 7:06 AM [facility] Blood Venous blood specimen / Unknown Venipuncture / Unknown 05/22/2024 5:52 AM EST 05/22/2024 6:46 AM EST Madeline SALINAS LAB BLOOD ORDERABLES [facility] [address] [place] [address], * (ABNORMAL) Comprehensive metabolic panel (05/22/2024 5:52 AM EST) Sodium 136 133 - 145 mmol/L LAB CHEMISTRY METHOD 05/22/2024 7:45 AM [facility] Potassium 4.1 3.5 - 5.5 mmol/L LAB CHEMISTRY METHOD 05/22/2024 7:45 AM [facility] Chloride 104 96 - 110 mmol/L LAB CHEMISTRY METHOD 05/22/2024 7:45 AM [facility] CO2 25 21 - 32 mmol/L LAB CHEMISTRY METHOD 05/22/2024 7:45 AM [facility] Anion Gap 7 3 - 11 LAB CHEMISTRY METHOD 05/22/2024 7:45 AM [facility] Glucose 121(H) 70 - 100 mg/dL LAB CHEMISTRY METHOD 05/22/2024 7:45 AM [facility] BUN 19 5 - 25 mg/dL LAB CHEMISTRY METHOD 05/22/2024 7:45 AM [facility] Creatinine 0.77 0.50 - 1.10 mg/dL LAB CHEMISTRY METHOD 05/22/2024 7:45 AM [facility] eGFR 96 >=60 mL/min/1. 73m2 LAB CHEMISTRY METHOD 05/22/2024 7:45 AM [facility] Comment:Calculation based on the??Chronic Kidney Disease Epidemiology Collaboration (CKD-EPI) equation refit??without adjustment for race. BUN/Creatinine Ratio 24.7 LAB CHEMISTRY METHOD 05/22/2024 7:45 AM [facility] Calcium 9.2 8.5 - 10.5 mg/dL LAB CHEMISTRY METHOD 05/22/2024 7:45 AM [facility] AST (SGOT) 8(L) 10 - 42 unit/L LAB CHEMISTRY METHOD 05/22/2024 7:45 AM [facility] ALT (SGPT) 24 10 - 60 unit/L LAB CHEMISTRY METHOD 05/22/2024 7:45 AM [facility] Alkaline Phosphatase 76 42 - 121 unit/L LAB CHEMISTRY METHOD 05/22/2024 7:45 AM [facility] Total Protein 6.5 6.0 - 8.0 g/dL LAB CHEMISTRY METHOD 05/22/2024 7:45 AM [facility] Albumin 3.2 3.2 - 5.0 g/dL LAB CHEMISTRY METHOD 05/22/2024 7:45 AM [facility] Total Bilirubin 0.2 0.0 - 1.4 mg/dL LAB CHEMISTRY METHOD 05/22/2024 7:45 AM [facility] Blood Venous blood specimen / Unknown Venipuncture / Unknown 05/22/2024 5:52 AM EST 05/22/2024 6:46 AM EST Madeline SALINAS LAB BLOOD ORDERABLES Performing Organization Address City/[facility]/ZIP Co de Phone Number [facility] [address] [place] [address], [place] [phone] * (ABNORMAL) POCT Glucose, blood (05/21/2024 8:21 PM EST) Glucose POCT 137(H) 70 - 100 mg/dL 05/21/2024 8:21 PM EST [facility] Blood Capillary blood specimen / Unknown 05/21/2024 8:21 PM EST 05/21/2024 8:23 PM EST Neida Bailey DO LAB POINT OF CARE TEST DOCKED DEVICE UNSOLICITED RESULTS Performing Organization Address City/[facility]/ZIP Co de Phone Number [facility] [address] [place], [place] [address], [place] [phone] * POCT Glucose, blood (05/21/2024 3:34 PM EST) Glucose POCT 85 70 - 100 mg/dL 05/21/2024 3:35 PM EST [facility] Blood Capillary blood specimen / Unknown 05/21/2024 3:34 PM EST 05/21/2024 3:36 PM EST Neida Bailey DO LAB POINT OF CARE TEST DOCKED DEVICE UNSOLICITED RESULTS Performing Organization Address City/[facility]/ZIP Co de Phone Number [facility] [address] [place] [address], [place] [phone] * POCT Glucose, blood (05/21/2024 11:11 AM EST) Glucose POCT 72 70 - 100 mg/dL 05/21/2024 11:12 AM EST [facility] Blood Capillary blood specimen / Unknown 05/21/2024 11:11 AM EST 05/21/2024 11:14 AM EST Neida Riveroese DO LAB POINT OF CARE TEST DOCKED DEVICE UNSOLICITED RESULTS Performing Organization Address [facility]/ZIP Co de Phone Number [facility] [address] [place] [address], [place] [phone] * (ABNORMAL) POCT Glucose, blood (05/21/2024 7:19 AM EST) Glucose POCT 155(H) 70 - 100 mg/dL 05/21/2024 7:20 AM EST [facility] Blood Capillary blood specimen / Unknown 05/21/2024 7:19 AM EST 05/21/2024 7:21 AM EST Neida A Lynn DO LAB POINT OF CARE TEST DOCKED DEVICE UNSOLICITED RESULTS Performing Organization Address City/[facility]/ZIP Co de Phone Number [facility] [address] [place] [address], [place] [phone] * (ABNORMAL) POCT Glucose, blood (05/20/2024 8:08 PM EST) Glucose POCT 193(H) 70 - 100 mg/dL 05/20/2024 8:09 PM EST [facility] Blood Capillary blood specimen / Unknown 05/20/2024 8:08 PM EST 05/20/2024 8:09 PM EST Nieda Bailey DO LAB POINT OF CARE TEST DOCKED DEVICE UNSOLICITED RESULTS Performing Organization Address City/[facility]/ZIP Co de Phone Number [facility] [address] [place] [address], * POCT Glucose, blood (05/20/2024 4:31 PM EST) Glucose POCT 81 70 - 100 mg/dL 05/20/2024 4:32 PM EST [facility] Blood Capillary blood specimen / Unknown 05/20/2024 4:31 PM EST 05/20/2024 4:32 PM EST Neidamikal Bailey [employer] LAB POINT OF CARE TEST DOCKED DEVICE UNSOLICITED RESULTS Performing Organization Address [facility] Co de Phone Number [facility] [address] [place] [address], [place] [phone] * (ABNORMAL) POCT Glucose, blood (05/20/2024 11:12 AM EST) Glucose POCT 103(H) 70 - 100 mg/dL 05/20/2024 11:13 AM EST [facility] Blood Capillary blood specimen / Unknown 05/20/2024 11:12 AM EST 05/20/2024 11:13 AM EST Neidamikal Bailey DO LAB POINT OF CARE TEST DOCKED DEVICE UNSOLICITED RESULTS Performing Organization Address City/[facility]/ZIP Co de Phone Number [facility] [address] [place] [address], [place] [phone] * (ABNORMAL) POCT Glucose, blood (05/20/2024 7:26 AM EST) Glucose POCT 115(H) 70 - 100 mg/dL 05/20/2024 7:27 AM EST [facility] Blood Capillary blood specimen / Unknown 05/20/2024 7:26 AM EST 05/20/2024 7:28 AM EST Neida A Nebo DO LAB POINT OF CARE TEST DOCKED DEVICE UNSOLICITED RESULTS [facility] [address] [place] [address], [place] [phone] * (ABNORMAL) POCT Glucose, blood (05/19/2024 8:01 PM EST) Glucose POCT 169(H) 70 - 100 mg/dL 05/19/2024 8:02 PM EST [facility] Blood Capillary blood specimen / Unknown 05/19/2024 8:01 PM EST 05/19/2024 8:04 PM EST Neida Riveroese LAB POINT OF CARE TEST DOCKED DEVICE UNSOLICITED RESULTS [facility] [address] [place] [address], [place] [phone] * (ABNORMAL) POCT Glucose, blood (05/19/2024 3:24 PM EST) Glucose POCT 134(H) 70 - 100 mg/dL 05/19/2024 3:25 PM EST [facility] Blood Capillary blood specimen / Unknown 05/19/2024 3:24 PM EST 05/19/2024 3:26 PM EST Neida Bailey DO LAB POINT OF CARE TEST DOCKED DEVICE UNSOLICITED RESULTS Performing Organization Address [facility]/ZIP Co de Phone Number [facility] [address] [place] [address], [place] [phone] * POCT Glucose, blood (05/19/2024 11:20 AM EST) Glucose POCT 91 70 - 100 mg/dL 05/19/2024 11:21 AM EST [facility] Blood Capillary blood specimen / Unknown 05/19/2024 11:20 AM EST 05/19/2024 11:22 AM EST Neida Bailey [employer] LAB POINT OF CARE TEST DOCKED DEVICE UNSOLICITED RESULTS Performing Organization Address [facility] de Phone Number [facility] [address] [place] [address], [place] [phone] * (ABNORMAL) POCT Glucose, blood (05/19/2024 7:34 AM EST) Glucose POCT 134(H) 70 - 100 mg/dL 05/19/2024 7:35 AM EST [facility] Blood Capillary blood specimen / Unknown 05/19/2024 7:34 AM EST 05/19/2024 7:36 AM EST Neida Bailey [employer] LAB POINT OF CARE TEST DOCKED DEVICE UNSOLICITED RESULTS Performing Organization Address [facility] Co de Phone Number [facility] [address] [place] [address], [place] [phone] * (ABNORMAL) POCT Glucose, blood (05/18/2024 7:57 PM EST) Glucose POCT 190(H) 70 - 100 mg/dL 05/18/2024 7:58 PM EST [facility] Blood Capillary blood specimen / Unknown 05/18/2024 7:57 PM EST 05/18/2024 7:59 PM EST Neida Bailey DO LAB POINT OF CARE TEST DOCKED DEVICE UNSOLICITED RESULTS Performing Organization Address [facility]/ZIP Co de Phone Number [facility] [address] [place] [address], [place] [phone] * (ABNORMAL) POCT Glucose, blood (05/18/2024 3:24 PM EST) Glucose POCT 151(H) 70 - 100 mg/dL 05/18/2024 3:32 PM EST [facility] Blood Capillary blood specimen / Unknown 05/18/2024 3:24 PM EST 05/18/2024 3:33 PM EST Neida Bailey LAB POINT OF CARE TEST DOCKED DEVICE UNSOLICITED RESULTS Performing Organization Address [facility]/ZIP Co de Phone Number [facility] [address] [place] [address], [place] [phone] * (ABNORMAL) POCT Glucose, blood (05/18/2024 11:08 AM EST) Glucose POCT 121(H) 70 - 100 mg/dL 05/18/2024 11:08 AM EST [facility] Blood Capillary blood specimen / Unknown 05/18/2024 11:08 AM EST 05/18/2024 11:09 AM EST Neidamikal Bailey [employer] LAB POINT OF CARE TEST DOCKED DEVICE UNSOLICITED RESULTS [facility] [address] [place] [address], [place] [phone] * (ABNORMAL) Vitamin D 25 hydroxy (05/18/2024 11:05 AM EST) Vit D, 25-Hydroxy 25.0(L) 30.0 - 80.0 ng/mL LAB CHEMISTRY METHOD 05/18/2024 11:51 AM EST [facility] Blood Venous blood specimen / Unknown Venipuncture / Unknown 05/18/2024 11:05 AM EST 05/18/2024 11:15 AM EST Leah Philippe NP LAB BLOOD OR DERABLES [facility] [address] [place] [address], [place] [phone] * (ABNORMAL) Vitamin B12 and folate (05/18/2024 11:05 AM EST) [facility] Vitamin B-12 233(L) 250 - 900 pcg/mL LAB CHEMISTRY METHOD 05/18/2024 12:06 PM EST [facility] Folate 8.2 2.8 - 17.0 ng/ml LAB CHEMISTRY METHOD 05/18/2024 12:06 PM EST [facility] Blood Venous blood specimen / Unknown Venipuncture / Unknown 05/18/2024 11:05 AM EST 05/18/2024 11:15 AM EST Leah Philippe NP LAB BLOOD OR DERABLES Performing Organization Address City/[facility]/ZIP Co de Phone Number [facility] [address] [place] [address], [place] [phone] * (ABNORMAL) POCT Glucose, blood (05/18/2024 7:21 AM EST) [facility] Glucose POCT 175(H) 70 - 100 mg/dL 05/18/2024 7:21 AM EST [facility] Blood Capillary blood specimen / Unknown 05/18/2024 7:21 AM EST 05/18/2024 7:22 AM EST Neida Bailey DO LAB POINT OF CARE TEST DOCKED DEVICE UNSOLICITED RESULTS Performing Organization Address [facility]/ZIP Co de Phone Number [facility] [address] [place] [address], [place] [phone] * Lavender tube (05/18/2024 6:12 AM EST) Pathologist [facility] Extra Tube Hold for add-ons. 05/18/2024 8:01 AM EST [facility] Comment:Auto resulted. Blood Venous blood specimen / Unknown Venipuncture / Unknown 05/18/2024 6:12 AM EST 05/18/2024 6:29 AM EST Neida Bailey DO LAB BLOOD ORDERAB LES Performing Organization Address [facility] Co de Phone Number [facility] [address] [place] [address], [place] [phone] * (ABNORMAL) Magnesium (05/18/2024 6:11 AM EST) [facility] Magnesium 1.8(L) 1.9 - 2.6 mg/dL LAB CHEMISTRY METHOD 05/18/2024 7:48 AM EST [facility] Blood Venous blood specimen / Unknown Venipuncture / Unknown 05/18/2024 6:11 AM EST 05/18/2024 6:28 AM EST Madeline SALINAS LAB BLOOD ORDERABLES Performing Organization Address [facility]/ZIP Co de Phone Number [facility] [address] [place] [address], [place] [phone] * (ABNORMAL) Comprehensive metabolic panel (05/18/2024 6:11 AM EST) [facility] Sodium 137 133 - 145 mmol/L LAB CHEMISTRY METHOD 05/18/2024 7:48 AM EST [facility] Potassium 4.3 3.5 - 5.5 mmol/L LAB CHEMISTRY METHOD 05/18/2024 7:48 AM [facility] Chloride 105 96 - 110 mmol/L LAB CHEMISTRY METHOD 05/18/2024 7:48 AM [facility] CO2 29 21 - 32 mmol/L LAB CHEMISTRY METHOD 05/18/2024 7:48 AM [facility] Anion Gap 3 3 - 11 LAB CHEMISTRY METHOD 05/18/2024 7:48 AM [facility] Glucose 205(H) 70 - 100 mg/dL LAB CHEMISTRY METHOD 05/18/2024 7:48 AM [facility] BUN 16 5 - 25 mg/dL LAB CHEMISTRY METHOD 05/18/2024 7:48 AM [facility] Creatinine 0.92 0.50 - 1.10 mg/dL LAB CHEMISTRY METHOD 05/18/2024 7:48 AM [facility] eGFR 78 >=60 mL/min/1. 73m2 LAB CHEMISTRY METHOD 05/18/2024 7:48 AM [facility] Comment:Calculation based on the??Chronic Kidney Disease Epidemiology Collaboration (CKD-EPI) equation refit??without adjustment for race. BUN/Creatinine Ratio 17.4 LAB CHEMISTRY METHOD 05/18/2024 7:48 AM [facility] Calcium 8.3(L) 8.5 - 10.5 mg/dL LAB CHEMISTRY METHOD 05/18/2024 7:48 AM [facility] AST (SGOT) 20 10 - 42 unit/L LAB CHEMISTRY METHOD 05/18/2024 7:48 AM [facility] ALT (SGPT) 32 10 - 60 unit/L LAB CHEMISTRY METHOD 05/18/2024 7:48 AM [facility] Alkaline Phosphatase 88 42 - 121 unit/L LAB CHEMISTRY METHOD 05/18/2024 7:48 AM [facility] Total Protein 6.1 6.0 - 8.0 g/dL LAB CHEMISTRY METHOD 05/18/2024 7:48 AM EST [facility] Albumin 2.9(L) 3.2 - 5.0 g/dL LAB CHEMISTRY METHOD 05/18/2024 7:48 AM EST [facility] Total Bilirubin 0.2 0.0 - 1.4 mg/dL LAB CHEMISTRY METHOD 05/18/2024 7:48 AM EST [facility] Blood Venous blood specimen / Unknown Venipuncture / Unknown 05/18/2024 6:11 AM EST 05/18/2024 6:28 AM EST Madeline SALINAS LAB BLOOD ORDERABLES [facility] [address] [place] [address], [place] [phone] * (ABNORMAL) POCT Glucose, blood (05/17/2024 8:40 PM EST) Glucose POCT 215(H) 70 - 100 mg/dL 05/17/2024 8:40 PM EST [facility] Blood Capillary blood specimen / Unknown 05/17/2024 8:40 PM EST 05/17/2024 8:42 PM EST Neida Bailey DO LAB POINT OF CARE TEST DOCKED DEVICE UNSOLICITED RESULTS [facility] [address] [place] [address], [place] [phone] * POCT Glucose, blood (05/17/2024 3:51 PM EST) Glucose POCT 73 70 - 100 mg/dL 05/17/2024 3:52 PM EST [facility] Blood Capillary blood specimen / Unknown 05/17/2024 3:51 PM EST 05/17/2024 3:53 PM EST Neidamikal Bailey [employer] LAB POINT OF CARE TEST DOCKED DEVICE UNSOLICITED RESULTS Performing Organization Address [facility]/ZIP Co de Phone Number [facility] [address] [place] [address], [place] [phone] * (ABNORMAL) POCT Glucose, blood (05/17/2024 11:05 AM EST) Glucose POCT 196(H) 70 - 100 mg/dL 05/17/2024 11:06 AM EST [facility] Blood Capillary blood specimen / Unknown 05/17/2024 11:05 AM EST 05/17/2024 11:07 AM EST Neidamikal Lutzabrese LAB POINT OF CARE TEST DOCKED DEVICE UNSOLICITED RESULTS Performing Organization Address [facility] Co de Phone Number [facility] [address] [place] [address], * (ABNORMAL) POCT Glucose, blood (05/17/2024 7:22 AM EST) Glucose POCT 149(H) 70 - 100 mg/dL 05/17/2024 7:23 AM EST [facility] Blood Capillary blood specimen / Unknown 05/17/2024 7:22 AM EST 05/17/2024 7:25 AM EST Neidamikal Bailey LAB POINT OF CARE TEST DOCKED DEVICE UNSOLICITED RESULTS Performing Organization Address [facility] Co de Phone Number [facility] [address] [place] [address], [place] [phone] * (ABNORMAL) Magnesium (05/17/2024 6:09 AM EST) Magnesium 1.4(L) 1.9 - 2.6 mg/dL LAB CHEMISTRY METHOD 05/17/2024 7:55 AM EST [facility] Blood Venous blood specimen / Unknown Venipuncture / Unknown 05/17/2024 6:09 AM EST 05/17/2024 6:54 AM EST Madeline SALINAS LAB BLOOD ORDERABLES [facility] [address] [place] [address], * (ABNORMAL) Complete blood count (05/17/2024 6:09 AM EST) WBC 7.5 4.8 - 10.8 K/mcL LAB HEMETOLOGY METHOD 05/17/2024 7:19 AM [facility] RBC 3.90 3.80 - 4.80 M/mcL LAB HEMETOLOGY METHOD 05/17/2024 7:19 AM [facility] Hemoglobin 11.9 11.5 - 16.0 g/dL LAB HEMETOLOGY METHOD 05/17/2024 7:19 AM [facility] Hematocrit 34.5(L) 35.0 - 47.0 % LAB HEMETOLOGY METHOD 05/17/2024 7:19 AM [facility] MCV 88.0 79.0 - 98.0 FL LAB HEMETOLOGY METHOD 05/17/2024 7:19 AM [facility] MCH 30.4 27.0 - 32.0 pcg LAB HEMETOLOGY METHOD 05/17/2024 7:19 AM [facility] MCHC 34.5 32.0 - 37.0 g/dL LAB HEMETOLOGY METHOD 05/17/2024 7:19 AM [facility] RDW 12.9 11.0 - 15.0 % LAB HEMETOLOGY METHOD 05/17/2024 7:19 AM [facility] Platelets 317 130 - 400 K/mcL LAB HEMETOLOGY METHOD 05/17/2024 7:19 AM EST [facility] MPV 11.8(H) 7.0 - 11.0 FL LAB HEMETOLOGY METHOD 05/17/2024 7:19 AM [facility] NRBC 0.0 <1.0 % LAB HEMETOLOGY METHOD 05/17/2024 7:19 AM [facility] NRBC Absolute 0.00 <0.10 K/mcL LAB HEMETOLOGY METHOD 05/17/2024 7:19 AM EST [facility] Blood Venous blood specimen / Unknown Venipuncture / Unknown 05/17/2024 6:09 AM EST 05/17/2024 6:54 AM EST Madeline SALINAS LAB BLOOD ORDERABLES [facility] [address] [place] [address], * (ABNORMAL) Comprehensive metabolic panel (05/17/2024 6:09 AM EST) Sodium 138 133 - 145 mmol/L LAB CHEMISTRY METHOD 05/17/2024 8:00 AM [facility] Potassium 3.8 3.5 - 5.5 mmol/L LAB CHEMISTRY METHOD 05/17/2024 8:00 AM [facility] Chloride 105 96 - 110 mmol/L LAB CHEMISTRY METHOD 05/17/2024 8:00 AM [facility] CO2 27 21 - 32 mmol/L LAB CHEMISTRY METHOD 05/17/2024 8:00 AM [facility] Anion Gap 6 3 - 11 LAB CHEMISTRY METHOD 05/17/2024 8:00 AM [facility] Glucose 132(H) 70 - 100 mg/dL LAB CHEMISTRY METHOD 05/17/2024 8:00 AM [facility] BUN 13 5 - 25 mg/dL LAB CHEMISTRY METHOD 05/17/2024 8:00 AM [facility] Creatinine 0.63 0.50 - 1.10 mg/dL LAB CHEMISTRY METHOD 05/17/2024 8:00 AM [facility] eGFR 111 >=60 mL/min/1. 73m2 LAB CHEMISTRY METHOD 05/17/2024 8:00 AM [facility] Comment:Calculation based on the??Chronic Kidney Disease Epidemiology Collaboration (CKD-EPI) equation refit??without adjustment for race. BUN/Creatinine Ratio 20.6 LAB CHEMISTRY METHOD 05/17/2024 8:00 AM [facility] Calcium 8.8 8.5 - 10.5 mg/dL LAB CHEMISTRY METHOD 05/17/2024 8:00 AM [facility] AST (SGOT) 15 10 - 42 unit/L LAB CHEMISTRY METHOD 05/17/2024 8:00 AM [facility] ALT (SGPT) 25 10 - 60 unit/L LAB CHEMISTRY METHOD 05/17/2024 8:00 AM [facility] Alkaline Phosphatase 66 42 - 121 unit/L LAB CHEMISTRY METHOD 05/17/2024 8:00 AM [facility] Total Protein 6.1 6.0 - 8.0 g/dL LAB CHEMISTRY METHOD 05/17/2024 8:00 AM [facility] Albumin 3.0(L) 3.2 - 5.0 g/dL LAB CHEMISTRY METHOD 05/17/2024 8:00 AM [facility] Total Bilirubin 0.3 0.0 - 1.4 mg/dL LAB CHEMISTRY METHOD 05/17/2024 8:00 AM [facility] Blood Venous blood specimen / Unknown Venipuncture / Unknown 05/17/2024 6:09 AM EST 05/17/2024 6:54 AM EST Madeline SALINAS LAB BLOOD ORDERABLES [facility] [address] [place] [address], * (ABNORMAL) POCT Glucose, blood (05/16/2024 8:04 PM EST) Glucose POCT 127(H) 70 - 100 mg/dL 05/16/2024 8:05 PM EST [facility] Blood Capillary blood specimen / Unknown 05/16/2024 8:04 PM EST 05/16/2024 8:06 PM EST Neida A Lynn DO LAB POINT OF CARE TEST DOCKED DEVICE UNSOLICITED RESULTS Performing Organization Address City/[facility]/ZIP Co de Phone Number [facility] [address] [place] [address], * POCT Glucose, blood (05/16/2024 4:36 PM EST) Pathologist [facility] Glucose POCT 94 70 - 100 mg/dL 05/16/2024 4:37 PM EST [facility] Blood Capillary blood specimen / Unknown 05/16/2024 4:36 PM EST 05/16/2024 4:38 PM EST [facility] TEST DOCKED DEVICE UNSOLICITED RESULTS Performing Organization Address City/[facility]/ZIP Co de Phone Number [facility] [address] [place] [address], [place] [phone] * Guy urine culture tube (05/16/2024 4:16 PM EST) Pathologist [facility] Extra Tube Hold for add-ons. 05/16/2024 6:02 PM EST [facility] Comment:Auto resulted. Urine Urine specimen obtained by clean catch procedure / Unknown Non-blood Collection / Unknown 05/16/2024 4:16 PM EST 05/16/2024 4:52 PM EST Madeline SALINAS LAB URINE ORDERABLES [facility] [address] [place] [address], [place] [phone] * Urinalysis with reflex microscopic and culture (05/16/2024 4:16 PM EST) Specific [place] Urine 1.019 1.003 - 1.030 LAB URINALYSIS - AUTOMATED METHOD 05/16/2024 5:28 PM [facility] pH, Urine 6.5 5.0 - 8.0 pH LAB URINALYSIS - AUTOMATED METHOD 05/16/2024 5:28 PM [facility] Leukocytes, Urine Negative Negative LAB URINALYSIS - AUTOMATED METHOD 05/16/2024 5:28 PM [facility] Nitrite, Urine Negative Negative LAB URINALYSIS - AUTOMATED METHOD 05/16/2024 5:28 PM [facility] Protein, Urine Negative <=Trace mg/dL LAB URINALYSIS - AUTOMATED METHOD 05/16/2024 5:28 PM [facility] Glucose, Urine Negative Negative mg/dL LAB URINALYSIS - AUTOMATED METHOD 05/16/2024 5:28 PM [facility] Ketones, Urine Negative Negative mg/dL LAB URINALYSIS - AUTOMATED METHOD 05/16/2024 5:28 PM [facility] Urobilinogen, Urine 1.0 0.2 - 1.0 mg/dL LAB URINALYSIS - AUTOMATED METHOD 05/16/2024 5:28 PM [facility] Bilirubin, Urine Negative Negative LAB URINALYSIS - AUTOMATED METHOD 05/16/2024 5:28 PM [facility] Blood, Urine Negative Negative LAB URINALYSIS - AUTOMATED METHOD 05/16/2024 5:28 PM [facility] Urine Urine specimen obtained by clean catch procedure / Unknown Non-blood Collection / Unknown 05/16/2024 4:16 PM EST 05/16/2024 4:52 PM EST Madeline SALINAS LAB URINE ORDERABLES Performing Organization Address [facility]/ZIP Co de Phone Number [facility] [address] [place] [address], [place] [phone] * POCT Glucose, blood (05/16/2024 11:05 AM EST) Glucose POCT 94 70 - 100 mg/dL 05/16/2024 11:07 AM EST [facility] Blood Capillary blood specimen / Unknown 05/16/2024 11:05 AM EST 05/16/2024 11:08 AM EST Neida Bailey DO LAB POINT OF CARE TEST DOCKED DEVICE UNSOLICITED RESULTS Performing Organization Address [facility] Co de Phone Number [facility] [address] [place] [address], [place] [phone] * (ABNORMAL) POCT Glucose, blood (05/16/2024 7:19 AM EST) Glucose POCT 157(H) 70 - 100 mg/dL 05/16/2024 7:20 AM EST [facility] Blood Capillary blood specimen / Unknown 05/16/2024 7:19 AM EST 05/16/2024 7:22 AM EST Neida Bailey DO LAB POINT OF CARE TEST DOCKED DEVICE UNSOLICITED RESULTS Performing Organization Address [facility]/ZIP Co de Phone Number [facility] [address] [place] [address], [place] [phone] * (ABNORMAL) POCT Glucose, blood (05/15/2024 8:17 PM EST) Glucose POCT 151(H) 70 - 100 mg/dL 05/15/2024 8:17 PM EST [facility] Blood Capillary blood specimen / Unknown 05/15/2024 8:17 PM EST 05/15/2024 8:18 PM EST Neida A Lynn DO LAB POINT OF CARE TEST DOCKED DEVICE UNSOLICITED RESULTS Performing Organization Address City/[facility]/ZIP Co de Phone Number [facility] [address] [place] [address], [place] [phone] * POCT Glucose, blood (05/15/2024 3:47 PM EST) Glucose POCT 84 70 - 100 mg/dL 05/15/2024 3:48 PM EST [facility] Blood Capillary blood specimen / Unknown 05/15/2024 3:47 PM EST 05/15/2024 3:49 PM EST Neida Bailey DO LAB POINT OF CARE TEST DOCKED DEVICE UNSOLICITED RESULTS Performing Organization Address [facility]/ZIP Co de Phone Number [facility] [address] [place] [address], [place] [phone] * (ABNORMAL) POCT Glucose, blood (05/15/2024 11:30 AM EST) Glucose POCT 169(H) 70 - 100 mg/dL 05/15/2024 11:31 AM EST [facility] Blood Capillary blood specimen / Unknown 05/15/2024 11:30 AM EST 05/15/2024 11:32 AM EST Neida A Lynn DO LAB POINT OF CARE TEST DOCKED DEVICE UNSOLICITED RESULTS Performing Organization Address City/[facility]/ZIP Co de Phone Number [facility] [address] [place] [address], [place] [phone] * (ABNORMAL) POCT Glucose, blood (05/15/2024 7:15 AM EST) Glucose POCT 184(H) 70 - 100 mg/dL 05/15/2024 7:17 AM EST [facility] Blood Capillary blood specimen / Unknown 05/15/2024 7:15 AM EST 05/15/2024 7:18 AM EST Neida Riveroese DO LAB POINT OF CARE TEST DOCKED DEVICE UNSOLICITED RESULTS [facility] [address] [place] [address], [place] [phone] * (ABNORMAL) POCT Glucose, blood (05/14/2024 8:20 PM EST) Glucose POCT 189(H) 70 - 100 mg/dL 05/14/2024 8:20 PM EST [facility] Blood Capillary blood specimen / Unknown 05/14/2024 8:20 PM EST 05/14/2024 8:21 PM EST Neidamikal Bailey [employer] LAB POINT OF CARE TEST DOCKED DEVICE UNSOLICITED RESULTS Performing Organization Address City/[facility]/ZIP Co de Phone Number [facility] [address] [place] [address], [place] [phone] * POCT Glucose, blood (05/14/2024 4:00 PM EST) Glucose POCT 77 70 - 100 mg/dL 05/14/2024 4:01 PM EST [facility] Blood Capillary blood specimen / Unknown 05/14/2024 4:00 PM EST 05/14/2024 4:02 PM EST Neidamikal Bailey DO LAB POINT OF CARE TEST DOCKED DEVICE UNSOLICITED RESULTS [facility] [address] [place] [address], [place] [phone] * (ABNORMAL) POCT Glucose, blood (05/14/2024 11:16 AM EST) Glucose POCT 110(H) 70 - 100 mg/dL 05/14/2024 11:17 AM EST [facility] Blood Capillary blood specimen / Unknown 05/14/2024 11:16 AM EST 05/14/2024 11:18 AM EST Neida Riveroese DO LAB POINT OF CARE TEST DOCKED DEVICE UNSOLICITED RESULTS [facility] [address] [place] [address], [place] [phone] * (ABNORMAL) POCT Glucose, blood (05/14/2024 7:18 AM EST) Glucose POCT 136(H) 70 - 100 mg/dL 05/14/2024 7:19 AM EST [facility] Blood Capillary blood specimen / Unknown 05/14/2024 7:18 AM EST 05/14/2024 7:21 AM EST Neida Bailey LAB POINT OF CARE TEST DOCKED DEVICE UNSOLICITED RESULTS [facility] [address] [place] [address], [place] [phone] * (ABNORMAL) POCT Glucose, blood (05/13/2024 7:59 PM EST) Glucose POCT 171(H) 70 - 100 mg/dL 05/13/2024 8:00 PM EST [facility] Blood Capillary blood specimen / Unknown 05/13/2024 7:59 PM EST 05/13/2024 8:01 PM EST Neida Bailey [employer] LAB POINT OF CARE TEST DOCKED DEVICE UNSOLICITED RESULTS Performing Organization Address City/[facility]/ZIP Co de Phone Number [facility] [address] [place] [address], [place] [phone] * (ABNORMAL) POCT Glucose, blood (05/13/2024 3:53 PM EST) Glucose POCT 103(H) 70 - 100 mg/dL 05/13/2024 3:54 PM EST [facility] Blood Capillary blood specimen / Unknown 05/13/2024 3:53 PM EST 05/13/2024 3:55 PM EST Neidamikal Bailey LAB POINT OF CARE TEST DOCKED DEVICE UNSOLICITED RESULTS Performing Organization Address [facility] Co de Phone Number [facility] [address] [place] [address], [place] [phone] * (ABNORMAL) POCT Glucose, blood (05/13/2024 11:03 AM EST) Glucose POCT 137(H) 70 - 100 mg/dL 05/13/2024 11:08 AM EST [facility] Blood Capillary blood specimen / Unknown 05/13/2024 11:03 AM EST 05/13/2024 11:09 AM EST Neida Bailey LAB POINT OF CARE TEST DOCKED DEVICE UNSOLICITED RESULTS Performing Organization Address [facility]/ZIP Co de Phone Number [facility] [address] [place] [address], [place] [phone] * (ABNORMAL) POCT Glucose, blood (05/13/2024 7:14 AM EST) Glucose POCT 127(H) 70 - 100 mg/dL 05/13/2024 7:18 AM EST [facility] Blood Capillary blood specimen / Unknown 05/13/2024 7:14 AM EST 05/13/2024 7:19 AM EST Neida Bailey DO LAB POINT OF CARE TEST DOCKED DEVICE UNSOLICITED RESULTS Performing Organization Address [facility]/ZIP Co de Phone Number [facility] [address] [place] [address], * (ABNORMAL) Creatine kinase and CKMB (05/13/2024 5:52 AM EST) Total CK 31 22 - 269 unit/L LAB CHEMISTRY METHOD 05/13/2024 6:51 AM EST [facility] CK-MB <1.0(L) 1.0 - 3.6 ng/mL LAB CHEMISTRY METHOD 05/13/2024 6:51 AM EST [facility] CK-MB Index <0.0(L) 0.0 - 5.0 LAB CHEMISTRY METHOD 05/13/2024 6:51 AM EST [facility] Blood Venous blood specimen / Unknown Venipuncture / Unknown 05/13/2024 5:52 AM EST 05/13/2024 6:07 AM EST Leah Philippe NP LAB BLOOD OR DERABLES Performing Organization Address [facility]/ZIP Co de Phone Number [facility] [address] [place] [address], [place] [phone] * (ABNORMAL) Comprehensive metabolic panel (05/13/2024 5:52 AM EST) Sodium 137 133 - 145 mmol/L LAB CHEMISTRY METHOD 05/13/2024 6:45 AM EST [facility] Potassium 3.9 3.5 - 5.5 mmol/L LAB CHEMISTRY METHOD 05/13/2024 6:45 AM EST [facility] Chloride 104 96 - 110 mmol/L LAB CHEMISTRY METHOD 05/13/2024 6:45 AM [facility] CO2 29 21 - 32 mmol/L LAB CHEMISTRY METHOD 05/13/2024 6:45 AM [facility] Anion Gap 4 3 - 11 LAB CHEMISTRY METHOD 05/13/2024 6:45 AM [facility] Glucose 111(H) 70 - 100 mg/dL LAB CHEMISTRY METHOD 05/13/2024 6:45 AM [facility] BUN 13 5 - 25 mg/dL LAB CHEMISTRY METHOD 05/13/2024 6:45 AM [facility] Creatinine 0.69 0.50 - 1.10 mg/dL LAB CHEMISTRY METHOD 05/13/2024 6:45 AM [facility] eGFR 109 >=60 mL/min/1. 73m2 LAB CHEMISTRY METHOD 05/13/2024 6:45 AM [facility] Comment:Calculation based on the??Chronic Kidney Disease Epidemiology Collaboration (CKD-EPI) equation refit??without adjustment for race. BUN/Creatinine Ratio 18.8 LAB CHEMISTRY METHOD 05/13/2024 6:45 AM [facility] Calcium 9.2 8.5 - 10.5 mg/dL LAB CHEMISTRY METHOD 05/13/2024 6:45 AM [facility] AST (SGOT) 14 10 - 42 unit/L LAB CHEMISTRY METHOD 05/13/2024 6:45 AM [facility] ALT (SGPT) 26 10 - 60 unit/L LAB CHEMISTRY METHOD 05/13/2024 6:45 AM [facility] Alkaline Phosphatase 70 42 - 121 unit/L LAB CHEMISTRY METHOD 05/13/2024 6:45 AM [facility] Total Protein 6.3 6.0 - 8.0 g/dL LAB CHEMISTRY METHOD 05/13/2024 6:45 AM [facility] Albumin 3.0(L) 3.2 - 5.0 g/dL LAB CHEMISTRY METHOD 05/13/2024 6:45 AM [facility] Total Bilirubin 0.5 0.0 - 1.4 mg/dL LAB CHEMISTRY METHOD 05/13/2024 6:45 AM [facility] Blood Venous blood specimen / Unknown Venipuncture / Unknown 05/13/2024 5:52 AM EST 05/13/2024 6:07 AM EST Leah Philippe NP LAB BLOOD OR DERABLES [facility] [address] [place] [address], * (ABNORMAL) Complete blood count (05/13/2024 5:52 AM EST) WBC 8.6 4.8 - 10.8 K/mcL LAB HEMETOLOGY METHOD 05/13/2024 7:11 AM [facility] RBC 4.20 3.80 - 4.80 M/mcL LAB HEMETOLOGY METHOD 05/13/2024 7:11 AM [facility] Hemoglobin 12.2 11.5 - 16.0 g/dL LAB HEMETOLOGY METHOD 05/13/2024 7:11 AM [facility] Hematocrit 37.0 35.0 - 47.0 % LAB HEMETOLOGY METHOD 05/13/2024 7:11 AM [facility] MCV 87.3 79.0 - 98.0 FL LAB HEMETOLOGY METHOD 05/13/2024 7:11 AM [facility] MCH 28.8 27.0 - 32.0 pcg LAB HEMETOLOGY METHOD 05/13/2024 7:11 AM [facility] MCHC 33.0 32.0 - 37.0 g/dL LAB HEMETOLOGY METHOD 05/13/2024 7:11 AM [facility] RDW 12.7 11.0 - 15.0 % LAB HEMETOLOGY METHOD 05/13/2024 7:11 AM EST [facility] Platelets 378 130 - 400 K/mcL LAB HEMETOLOGY METHOD 05/13/2024 7:11 AM [facility] MPV 11.7(H) 7.0 - 11.0 FL LAB HEMETOLOGY METHOD 05/13/2024 7:11 AM EST [facility] NRBC 0.0 <1.0 % LAB HEMETOLOGY METHOD 05/13/2024 7:11 AM EST [facility] NRBC Absolute 0.00 <0.10 K/mcL LAB HEMETOLOGY METHOD 05/13/2024 7:11 AM [facility] Blood Venous blood specimen / Unknown Venipuncture / Unknown 05/13/2024 5:52 AM EST 05/13/2024 6:07 AM EST Leah Philippe NP LAB BLOOD OR DERABLES [facility] [address] [place] [address], * (ABNORMAL) POCT Glucose, blood (05/12/2024 8:18 PM EST) Glucose POCT 117(H) 70 - 100 mg/dL 05/12/2024 8:19 PM EST [facility] Blood Capillary blood specimen / Unknown 05/12/2024 8:18 PM EST 05/12/2024 8:20 PM EST Neida Bailey DO LAB POINT OF CARE TEST DOCKED DEVICE UNSOLICITED RESULTS Performing Organization Address City/[facility]/ZIP Co de Phone Number [facility] [address] [place] [address], [place] [phone] * (ABNORMAL) POCT Glucose, blood (05/12/2024 3:46 PM EST) Glucose POCT 101(H) 70 - 100 mg/dL 05/12/2024 3:47 PM EST [facility] Blood Capillary blood specimen / Unknown 05/12/2024 3:46 PM EST 05/12/2024 3:48 PM EST Neida Castellanos Lynn DO LAB POINT OF CARE TEST DOCKED DEVICE UNSOLICITED RESULTS Performing Organization Address City/[facility]/ZIP Co de Phone Number [facility] [address] [place] [address], * (ABNORMAL) POCT Glucose, blood (05/12/2024 11:12 AM EST) Glucose POCT 147(H) 70 - 100 mg/dL 05/12/2024 11:13 AM EST [facility] Blood Capillary blood specimen / Unknown 05/12/2024 11:12 AM EST 05/12/2024 11:14 AM EST Neida Riveroese [employer] LAB POINT OF CARE TEST DOCKED DEVICE UNSOLICITED RESULTS Performing Organization Address [facility]/ZIP Co de Phone Number [facility] [address] [place] [address], [place] [phone] * (ABNORMAL) POCT Glucose, blood (05/12/2024 7:36 AM EST) Glucose POCT 130(H) 70 - 100 mg/dL 05/12/2024 7:37 AM EST [facility] Blood Capillary blood specimen / Unknown 05/12/2024 7:36 AM EST 05/12/2024 7:38 AM EST Neida Riveroese DO LAB POINT OF CARE TEST DOCKED DEVICE UNSOLICITED RESULTS [facility] [address] [place] [address], * (ABNORMAL) POCT Glucose, blood (05/11/2024 8:51 PM EST) Glucose POCT 125(H) 70 - 100 mg/dL 05/11/2024 8:52 PM EST [facility] Blood Capillary blood specimen / Unknown 05/11/2024 8:51 PM EST 05/11/2024 8:53 PM EST Neida Bailey DO LAB POINT OF CARE TEST DOCKED DEVICE UNSOLICITED RESULTS Performing Organization Address [facility]/ZIP Co de Phone Number [facility] [address] [place] [address], * POCT Glucose, blood (05/11/2024 3:57 PM EST) Glucose POCT 91 70 - 100 mg/dL 05/11/2024 3:57 PM EST [facility] Blood Capillary blood specimen / Unknown 05/11/2024 3:57 PM EST 05/11/2024 3:58 PM EST Neida Bailey DO LAB POINT OF CARE TEST DOCKED DEVICE UNSOLICITED RESULTS [facility] [address] [place] [address], [place] [phone] * POCT Glucose, blood (05/11/2024 11:16 AM EST) Glucose POCT 99 70 - 100 mg/dL 05/11/2024 11:17 AM EST [facility] Blood Capillary blood specimen / Unknown 05/11/2024 11:16 AM EST 05/11/2024 11:18 AM EST Neida Bailey [employer] LAB POINT OF CARE TEST DOCKED DEVICE UNSOLICITED RESULTS Performing Organization Address [facility]/ZIP Co de Phone Number [facility] [address] [place] [address], [place] [phone] * (ABNORMAL) POCT Glucose, blood (05/11/2024 7:15 AM EST) Glucose POCT 168(H) 70 - 100 mg/dL 05/11/2024 7:17 AM EST [facility] Blood Capillary blood specimen / Unknown 05/11/2024 7:15 AM EST 05/11/2024 7:18 AM EST Neida Bailey [facility] POINT OF CARE TEST DOCKED DEVICE UNSOLICITED RESULTS Performing Organization Address [facility] Co de Phone Number [facility] [address] [place] [address], [place] [phone] * (ABNORMAL) POCT Glucose, blood (05/10/2024 8:10 PM EST) Glucose POCT 204(H) 70 - 100 mg/dL 05/10/2024 8:10 PM EST [facility] Blood Capillary blood specimen / Unknown 05/10/2024 8:10 PM EST 05/10/2024 8:11 PM EST Neida Bailey LAB POINT OF CARE TEST DOCKED DEVICE UNSOLICITED RESULTS Performing Organization Address City/[facility]/ZIP Co de Phone Number [facility] [address] [place] [address], [place] [phone] * (ABNORMAL) POCT Glucose, blood (05/10/2024 4:44 PM EST) Glucose POCT 150(H) 70 - 100 mg/dL 05/10/2024 4:46 PM EST [facility] Blood Capillary blood specimen / Unknown 05/10/2024 4:44 PM EST 05/10/2024 4:47 PM EST Neida Bailey DO LAB POINT OF CARE TEST DOCKED DEVICE UNSOLICITED RESULTS Performing Organization Address [facility]/ZIP Co de Phone Number [facility] [address] [place] [address], [place] [phone] * (ABNORMAL) POCT Glucose, blood (05/10/2024 11:10 AM EST) Glucose POCT 122(H) 70 - 100 mg/dL 05/10/2024 11:11 AM EST [facility] Blood Capillary blood specimen / Unknown 05/10/2024 11:10 AM EST 05/10/2024 11:12 AM EST Neida Bailey LAB POINT OF CARE TEST DOCKED DEVICE UNSOLICITED RESULTS Performing Organization Address [facility]/ZIP Co de Phone Number [facility] [address] [place] [address], [place] [phone] * (ABNORMAL) POCT Glucose, blood (05/10/2024 7:18 AM EST) Glucose POCT 138(H) 70 - 100 mg/dL 05/10/2024 7:19 AM EST [facility] Blood Capillary blood specimen / Unknown 05/10/2024 7:18 AM EST 05/10/2024 7:20 AM EST Neidamikal Bailey [employer] LAB POINT OF CARE TEST DOCKED DEVICE UNSOLICITED RESULTS Performing Organization Address City/[facility]/ZIP Co de Phone Number [facility] [address] [place] [address], [place] [phone] * (ABNORMAL) POCT Glucose, blood (05/09/2024 7:49 PM EST) Glucose POCT 124(H) 70 - 100 mg/dL 05/09/2024 7:51 PM EST [facility] Blood Capillary blood specimen / Unknown 05/09/2024 7:49 PM EST 05/09/2024 7:52 PM EST Neida Bailey DO LAB POINT OF CARE TEST DOCKED DEVICE UNSOLICITED RESULTS [facility] [address] [place] [address], * MR Brain wo Contrast (05/09/2024 5:31 [...] dimensions are difficult to quantify but a pharmaceutical representative measurement on image 21 of series 3 is 1.2 x 0.5 cm. On images 22-23 of series 3 is an area of restricted diffusion in the midline and right paracentral region of the srinivas, also compatible with an acute infarct. This is also difficult to accurately measure but a pharmaceutical representative measurement on image 22 is approximately [...] dimensions are difficult to quantify but a pharmaceutical representative measurement on image 21 of series 3 is 1.2x 0.5 cm. On images 22-23 of series 3 is an area of restricted diffusionin the midline and right paracentral region of the srinivas, also compatiblewith an acute infarct. This is also difficult to accurately measure but a pharmaceutical representative measurement on image 22 is approximately [...] on 05/10/2024 01:06:25 Melvi SALINAS IMG MRI GA OCEDURES * POCT Glucose, blood (05/09/2024 3:30 PM EST) Glucose POCT 84 70 - 100 mg/dL 05/09/2024 3:30 PM EST [facility] Blood Capillary blood specimen / Unknown 05/09/2024 3:30 PM EST 05/09/2024 3:31 PM EST Neida Bailey DO LAB POINT OF CARE TEST DOCKED DEVICE UNSOLICITED RESULTS [facility] [address] [place] [address], * (ABNORMAL) POCT Glucose, blood (05/09/2024 11:05 AM EST) Glucose POCT 134(H) 70 - 100 mg/dL 05/09/2024 11:06 AM EST [facility] Blood Capillary blood specimen / Unknown 05/09/2024 11:05 AM EST 05/09/2024 11:07 AM EST Neida Bailey DO LAB POINT OF CARE TEST DOCKED DEVICE UNSOLICITED RESULTS [facility] [address] [place] [address], [place] [phone] * (ABNORMAL) POCT Glucose, blood (05/09/2024 7:21 AM EST) Glucose POCT 214(H) 70 - 100 mg/dL 05/09/2024 7:21 AM EST [facility] Blood Capillary blood specimen / Unknown 05/09/2024 7:21 AM EST 05/09/2024 7:22 AM EST Neida Bailey [employer] LAB POINT OF CARE TEST DOCKED DEVICE UNSOLICITED RESULTS Performing Organization Address City/[facility]/ZIP Co de Phone Number [facility] [address] [place] [address], [place] [phone] * (ABNORMAL) POCT Glucose, blood (05/08/2024 8:19 PM EST) Glucose POCT 166(H) 70 - 100 mg/dL 05/08/2024 8:21 PM EST [facility] Blood Capillary blood specimen / Unknown 05/08/2024 8:19 PM EST 05/08/2024 8:22 PM EST Neida Riveroese DO LAB POINT OF CARE TEST DOCKED DEVICE UNSOLICITED RESULTS [facility] [address] [place] [address], * POCT Glucose, blood (05/08/2024 4:01 PM EST) Glucose POCT 96 70 - 100 mg/dL 05/08/2024 4:02 PM EST [facility] Blood Capillary blood specimen / Unknown 05/08/2024 4:01 PM EST 05/08/2024 4:03 PM EST Neida Castellanos Lynn DO LAB POINT OF CARE TEST DOCKED DEVICE UNSOLICITED RESULTS [facility] [address] [place] [address], [place] [phone] * (ABNORMAL) POCT Glucose, blood (05/08/2024 11:06 AM EST) Glucose POCT 143(H) 70 - 100 mg/dL 05/08/2024 11:07 AM EST [facility] Blood Capillary blood specimen / Unknown 05/08/2024 11:06 AM EST 05/08/2024 11:08 AM EST Neida Bailey DO LAB POINT OF CARE TEST DOCKED DEVICE UNSOLICITED RESULTS [facility] [address] [place] [address], [place] [phone] * (ABNORMAL) POCT Glucose, blood (05/08/2024 7:19 AM EST) Glucose POCT 156(H) 70 - 100 mg/dL 05/08/2024 7:21 AM EST [facility] Blood Capillary blood specimen / Unknown 05/08/2024 7:19 AM EST 05/08/2024 7:22 AM EST Neida Bailey DO LAB POINT OF CARE TEST DOCKED DEVICE UNSOLICITED RESULTS Performing Organization Address [facility]/ZIP Co de Phone Number [facility] [address] [place] [address], [place] [phone] * (ABNORMAL) POCT Glucose, blood (05/07/2024 8:11 PM EST) Glucose POCT 177(H) 70 - 100 mg/dL 05/08/2024 7:17 AM EST [facility] Blood Capillary blood specimen / Unknown 05/07/2024 8:11 PM EST 05/08/2024 7:18 AM EST Neida Bailey DO LAB POINT OF CARE TEST DOCKED DEVICE UNSOLICITED RESULTS Performing Organization Address [facility] Co de Phone Number [facility] [address] [place] [address], [place] [phone] * POCT Glucose, blood (05/07/2024 4:16 PM EST) Glucose POCT 99 70 - 100 mg/dL 05/07/2024 4:16 PM EST [facility] Blood Capillary blood specimen / Unknown 05/07/2024 4:16 PM EST 05/07/2024 4:18 PM EST Neida Bailey DO LAB POINT OF CARE TEST DOCKED DEVICE UNSOLICITED RESULTS Performing Organization Address [facility]/ZIP Co de Phone Number [facility] [address] [place] [address], [place] [phone] * CT Head wo Contrast (05/07/2024 12:38 [...] Signed Date: 05/07/2024 12:50 ET Workstation ID: [id number] Transcribed By: Self Edit Transcribed Date: 05/07/2024 [...] Signed Date: 05/07/2024 12:50 ET Workstation ID: [id number] Transcribed By: Self Edit Transcribed Date: 05/07/2024 12:47 ET Neida Bailey DO IMG CT PROCEDURES * POCT Glucose, blood (05/07/2024 11:22 AM EST) Glucose POCT 72 70 - 100 mg/dL 05/07/2024 11:22 AM EST [facility] Blood Capillary blood specimen / Unknown 05/07/2024 11:22 AM EST 05/07/2024 11:24 AM EST Neida Bailey DO LAB POINT OF CARE TEST DOCKED DEVICE UNSOLICITED RESULTS [facility] [address] [place] [address], * (ABNORMAL) POCT Glucose, blood (05/07/2024 7:21 AM EST) Glucose POCT 105(H) 70 - 100 mg/dL 05/07/2024 7:22 AM [facility] Blood Capillary blood specimen / Unknown 05/07/2024 7:21 AM EST 05/07/2024 7:23 AM EST Neida Bailey DO LAB POINT OF CARE TEST DOCKED DEVICE UNSOLICITED RESULTS [facility] [address] [place] [address], * (ABNORMAL) Complete blood count (05/07/2024 5:42 AM EST) WBC 6.7 4.8 - 10.8 K/mcL LAB HEMETOLOGY METHOD 05/07/2024 6:43 AM [facility] RBC 3.90 3.80 - 4.80 M/mcL LAB HEMETOLOGY METHOD 05/07/2024 6:43 AM [facility] Hemoglobin 11.2(L) 11.5 - 16.0 g/dL LAB HEMETOLOGY METHOD 05/07/2024 6:43 AM [facility] Hematocrit 34.5(L) 35.0 - 47.0 % LAB HEMETOLOGY METHOD 05/07/2024 6:43 AM [facility] MCV 89.4 79.0 - 98.0 FL LAB HEMETOLOGY METHOD 05/07/2024 6:43 AM [facility] MCH 29.0 27.0 - 32.0 pcg LAB HEMETOLOGY METHOD 05/07/2024 6:43 AM [facility] MCHC 32.5 32.0 - 37.0 g/dL LAB HEMETOLOGY METHOD 05/07/2024 6:43 AM [facility] RDW 12.7 11.0 - 15.0 % LAB HEMETOLOGY METHOD 05/07/2024 6:43 AM [facility] Platelets 300 130 - 400 K/mcL LAB HEMETOLOGY METHOD 05/07/2024 6:43 AM EST [facility] MPV 12.1(H) 7.0 - 11.0 FL LAB HEMETOLOGY METHOD 05/07/2024 6:43 AM EST [facility] NRBC 0.0 <1.0 % LAB HEMETOLOGY METHOD 05/07/2024 6:43 AM EST [facility] NRBC Absolute 0.00 <0.10 K/mcL LAB HEMETOLOGY METHOD 05/07/2024 6:43 AM [facility] Blood Venous blood specimen / Unknown Venipuncture / Unknown 05/07/2024 5:42 AM EST 05/07/2024 6:32 AM EST Neida Bailey DO LAB BLOOD ORDERAB LES [facility] [address] [place] [address], * Basic metabolic panel (05/07/2024 5:42 AM EST) Sodium 139 133 - 145 mmol/L LAB CHEMISTRY METHOD 05/07/2024 7:04 AM [facility] Potassium 4.0 3.5 - 5.5 mmol/L LAB CHEMISTRY METHOD 05/07/2024 7:04 AM [facility] Chloride 105 96 - 110 mmol/L LAB CHEMISTRY METHOD 05/07/2024 7:04 AM [facility] CO2 28 21 - 32 mmol/L LAB CHEMISTRY METHOD 05/07/2024 7:04 AM [facility] Anion Gap 6 3 - 11 LAB CHEMISTRY METHOD 05/07/2024 7:04 AM [facility] Glucose 87 70 - 100 mg/dL LAB CHEMISTRY METHOD 05/07/2024 7:04 AM [facility] BUN 13 5 - 25 mg/dL LAB CHEMISTRY METHOD 05/07/2024 7:04 AM [facility] Creatinine 0.63 0.50 - 1.10 mg/dL LAB CHEMISTRY METHOD 05/07/2024 7:04 AM [facility] eGFR 111 >=60 mL/min/1. 73m2 LAB CHEMISTRY METHOD 05/07/2024 7:04 AM [facility] Comment:Calculation based on the??Chronic Kidney Disease Epidemiology Collaboration (CKD-EPI) equation refit??without adjustment for race. BUN/Creatinine Ratio 20.6 LAB CHEMISTRY METHOD 05/07/2024 7:04 AM [facility] Calcium 9.3 8.5 - 10.5 mg/dL LAB CHEMISTRY METHOD 05/07/2024 7:04 AM [facility] Blood Venous blood specimen / Unknown Venipuncture / Unknown 05/07/2024 5:42 AM EST 05/07/2024 6:31 AM EST Radhika Barber VP [employer] LAB BLOOD ORDERABLES [facility] [address] [place] [address], [place] [phone] * (ABNORMAL) POCT Glucose, blood (05/06/2024 8:10 PM EST) Glucose POCT 129(H) 70 - 100 mg/dL 05/06/2024 8:11 PM EST [facility] Blood Capillary blood specimen / Unknown 05/06/2024 8:10 PM EST 05/06/2024 8:12 PM EST Neida Bailey DO LAB POINT OF CARE TEST DOCKED DEVICE UNSOLICITED RESULTS Performing Organization Address City/[facility]/ZIP Co de Phone Number [facility] [address] [place] [address], [place] [phone] * POCT Glucose, blood (05/06/2024 4:12 PM EST) Glucose POCT 81 70 - 100 mg/dL 05/06/2024 4:13 PM EST [facility] Blood Capillary blood specimen / Unknown 05/06/2024 4:12 PM EST 05/06/2024 4:14 PM EST Neida Emanuel Lynn DO LAB POINT OF CARE TEST DOCKED DEVICE UNSOLICITED RESULTS [facility] [address] [place] [address], [place] [phone] * (ABNORMAL) POCT Glucose, blood (05/06/2024 11:21 AM EST) Glucose POCT 206(H) 70 - 100 mg/dL 05/06/2024 11:22 AM EST [facility] Blood Capillary blood specimen / Unknown 05/06/2024 11:21 AM EST 05/06/2024 11:23 AM EST Neidagasper Riveroese LAB POINT OF CARE TEST DOCKED DEVICE UNSOLICITED RESULTS Performing Organization Address [facility]/ZIP Co de Phone Number [facility] [address] [place] [address], [place] [phone] * SST tube (05/06/2024 10:26 AM EST) Extra Tube Hold for add-ons. 05/06/2024 12:01 PM EST [facility] Comment:Auto resulted. Blood Venous blood specimen / Unknown 05/06/2024 10:26 AM EST 05/06/2024 10:37 AM EST Neida Riveroese DO LAB BLOOD ORDERAB LES [facility] [address] [place] [address], * (ABNORMAL) CBC auto differential (05/06/2024 10:26 AM EST) [facility] WBC 8.8 4.8 - 10.8 K/mcL LAB HEMETOLOGY METHOD 05/06/2024 10:49 AM EST [facility] RBC 4.10 3.80 - 4.80 M/mcL LAB HEMETOLOGY METHOD 05/06/2024 10:49 AM EST [facility] Hemoglobin 11.9 11.5 - 16.0 g/dL LAB HEMETOLOGY METHOD 05/06/2024 10:49 AM [facility] Hematocrit 35.6 35.0 - 47.0 % LAB HEMETOLOGY METHOD 05/06/2024 10:49 AM [facility] MCV 87.0 79.0 - 98.0 FL LAB HEMETOLOGY METHOD 05/06/2024 10:49 AM [facility] MCH 29.1 27.0 - 32.0 pcg LAB HEMETOLOGY METHOD 05/06/2024 10:49 AM [facility] MCHC 33.4 32.0 - 37.0 g/dL LAB HEMETOLOGY METHOD 05/06/2024 10:49 AM [facility] RDW 12.6 11.0 - 15.0 % LAB HEMETOLOGY METHOD 05/06/2024 10:49 AM [facility] Platelets 300 130 - 400 K/mcL LAB HEMETOLOGY METHOD 05/06/2024 10:49 AM [facility] MPV 11.8(H) 7.0 - 11.0 FL LAB HEMETOLOGY METHOD 05/06/2024 10:49 AM [facility] NRBC 0.0 <1.0 % LAB HEMETOLOGY METHOD 05/06/2024 10:49 AM [facility] NRBC Absolute 0.00 <0.10 K/mcL LAB HEMETOLOGY METHOD 05/06/2024 10:49 AM [facility] Neutrophils Relative 85.2 % LAB HEMETOLOGY METHOD 05/06/2024 10:49 AM [facility] Lymphocytes Relative 10.4 % LAB HEMETOLOGY METHOD 05/06/2024 10:49 AM [facility] Monocytes Relative 3.7 % LAB HEMETOLOGY METHOD 05/06/2024 10:49 AM [facility] Eosinophils Relative 0.2 % LAB HEMETOLOGY METHOD 05/06/2024 10:49 AM [facility] Basophils Relative 0.2 % LAB HEMETOLOGY METHOD 05/06/2024 10:49 AM [facility] Immature Granulocytes Relative 0.3 % LAB HEMETOLOGY METHOD 05/06/2024 10:49 AM [facility] Neutrophils Absolute 7.49(H) 1.50 - 7.00 K/mcL LAB HEMETOLOGY METHOD 05/06/2024 10:49 AM [facility] Lymphocytes Absolute 0.92(L) 1.00 - 5.00 K/mcL LAB HEMETOLOGY METHOD 05/06/2024 10:49 AM [facility] Monocytes Absolute 0.33 0.20 - 1.00 K/mcL LAB HEMETOLOGY METHOD 05/06/2024 10:49 AM [facility] Eosinophils Absolute 0.02 0.00 - 0.50 K/mcL LAB HEMETOLOGY METHOD 05/06/2024 10:49 AM [facility] Basophils Absolute 0.02 0.00 - 0.20 K/mcL LAB HEMETOLOGY METHOD 05/06/2024 10:49 AM [facility] Immature Granulocytes Absolute 0.03 0.00 - 0.03 K/mcL LAB HEMETOLOGY METHOD 05/06/2024 10:49 AM [facility] Blood Venous blood specimen / Unknown Venipuncture / Unknown 05/06/2024 10:26 AM EST 05/06/2024 10:36 AM EST Radhika Barber VP SCIENTIFIC LAB BLOOD ORDERABLES Performing Organization Address [facility]/State/ZIP Co de Phone Number [facility] [address] [place] [address], [place] [phone] * Guy urine culture tube (05/06/2024 8:55 AM EST) Pathologist [facility] Extra Tube Hold for add-ons. 05/06/2024 11:01 AM [facility] Comment:Auto resulted. Urine Urine specimen obtained by clean catch procedure / Unknown Non-blood Collection / Unknown 05/06/2024 8:55 AM EST 05/06/2024 9:08 AM EST Neida Bailey DO LAB URINE ORDERAB LES Performing Organization Address [facility]/State/ZIP Co de Phone Number [facility] [address] [place] [address], [place] [phone] * (ABNORMAL) Urinalysis with reflex microscopic and culture (05/06/2024 8:55 AM EST) Pathologist [facility] Specific [place] Urine 1.021 1.003 - 1.030 LAB URINALYSIS - AUTOMATED METHOD 05/06/2024 9:21 AM [facility] pH, Urine 6.0 5.0 - 8.0 pH LAB URINALYSIS - AUTOMATED METHOD 05/06/2024 9:21 AM [facility] Leukocytes, Urine Negative Negative LAB URINALYSIS - AUTOMATED METHOD 05/06/2024 9:21 AM [facility] Nitrite, Urine Negative Negative LAB URINALYSIS - AUTOMATED METHOD 05/06/2024 9:21 AM [facility] Protein, Urine Trace <=Trace mg/dL LAB URINALYSIS - AUTOMATED METHOD 05/06/2024 9:21 AM [facility] Glucose, Urine >=1000(A) Negative mg/dL LAB URINALYSIS - AUTOMATED METHOD 05/06/2024 9:21 AM [facility] Ketones, Urine 15(A) Negative mg/dL LAB URINALYSIS - AUTOMATED METHOD 05/06/2024 9:21 AM [facility] Urobilinogen , Urine 0.2 0.2 - 1.0 mg/dL LAB URINALYSIS - AUTOMATED METHOD 05/06/2024 9:21 AM [facility] Bilirubin, Urine Negative Negative LAB URINALYSIS - AUTOMATED METHOD 05/06/2024 9:21 AM [facility] Blood, Urine Large(A) Negative LAB URINALYSIS - AUTOMATED METHOD 05/06/2024 9:21 AM [facility] RBC, Urine 146.8(H) 0 - 4 /HPF LAB URINALYSIS - AUTOMATED METHOD 05/06/2024 9:21 AM [facility] WBC, Urine 2.4 0 - 4 /HPF LAB URINALYSIS - AUTOMATED METHOD 05/06/2024 9:21 AM [facility] Squamous Epithelial, Urine 24 0 - 60 /LPF LAB URINALYSIS - AUTOMATED METHOD 05/06/2024 9:21 AM [facility] Bacteria, Urine Negative Negative /HPF LAB URINALYSIS - AUTOMATED METHOD 05/06/2024 9:21 AM [facility] Hyaline Casts, Urine 2.5 0 - 3 /LPF LAB URINALYSIS - AUTOMATED METHOD 05/06/2024 9:21 AM [facility] Urine Urine specimen obtained by clean catch procedure / Unknown Non-blood Collection / Unknown 05/06/2024 8:55 AM EST 05/06/2024 9:08 AM EST Neida Bailey DO LAB URINE ORDERAB LES Performing Organization Address [facility] Co de Phone Number [facility] [address] [place] [address], * (ABNORMAL) POCT Glucose, blood (05/05/2024 11:03 AM EST) Glucose POCT 184(H) 70 - 100 mg/dL 05/05/2024 11:04 AM EST [facility] Blood Capillary blood specimen / Unknown 05/05/2024 11:03 AM EST 05/05/2024 11:06 AM EST Neida Riveroese LAB POINT OF CARE TEST DOCKED DEVICE UNSOLICITED RESULTS Performing Organization Address [facility] Co de Phone Number [facility] [address] [place] [address], * (ABNORMAL) POCT Glucose, blood (05/05/2024 7:18 AM EST) Glucose POCT 135(H) 70 - 100 mg/dL 05/05/2024 7:19 AM EST [facility] Blood Capillary blood specimen / Unknown 05/05/2024 7:18 AM EST 05/05/2024 7:21 AM EST Neida Riveroese LAB POINT OF CARE TEST DOCKED DEVICE UNSOLICITED RESULTS Performing Organization Address City/[facility]/ZIP Co de Phone Number [facility] [address] [place] [address], [place] [phone] * (ABNORMAL) POCT Glucose, blood (05/04/2024 8:06 PM EST) Glucose POCT 128(H) 70 - 100 mg/dL 05/04/2024 8:07 PM EST [facility] Blood Capillary blood specimen / Unknown 05/04/2024 8:06 PM EST 05/04/2024 8:08 PM EST Neida Bailey DO LAB POINT OF CARE TEST DOCKED DEVICE UNSOLICITED RESULTS Performing Organization Address [facility]/ZIP Co de Phone Number [facility] [address] [place] [address], [place] [phone] * POCT Glucose, blood (05/04/2024 4:05 PM EST) Glucose POCT 78 70 - 100 mg/dL 05/04/2024 4:06 PM EST [facility] Blood Capillary blood specimen / Unknown 05/04/2024 4:05 PM EST 05/04/2024 4:07 PM EST Neidamikal Bailey DO LAB POINT OF CARE TEST DOCKED DEVICE UNSOLICITED RESULTS Performing Organization Address [facility] Co de Phone Number [facility] [address] [place] [address], [place] [phone] * POCT Glucose, blood (05/04/2024 11:08 AM EST) Glucose POCT 71 70 - 100 mg/dL 05/04/2024 11:10 AM EST [facility] Blood Capillary blood specimen / Unknown 05/04/2024 11:08 AM EST 05/04/2024 11:11 AM EST Neida Bailey DO LAB POINT OF CARE TEST DOCKED DEVICE UNSOLICITED RESULTS Performing Organization Address [facility] Co de Phone Number [facility] [address] [place] [address], [place] [phone] * (ABNORMAL) POCT Glucose, blood (05/04/2024 7:15 AM EST) Glucose POCT 109(H) 70 - 100 mg/dL 05/04/2024 7:19 AM EST [facility] Blood Capillary blood specimen / Unknown 05/04/2024 7:15 AM EST 05/04/2024 7:20 AM EST Neida Bailey DO LAB POINT OF CARE TEST DOCKED DEVICE UNSOLICITED RESULTS [facility] [address] [place] [address], [place] [phone] * (ABNORMAL) POCT Glucose, blood (05/03/2024 8:21 PM EST) Glucose POCT 139(H) 70 - 100 mg/dL 05/03/2024 8:22 PM EST [facility] Blood Capillary blood specimen / Unknown 05/03/2024 8:21 PM EST 05/03/2024 8:23 PM EST Neidamikal Bailey [employer] LAB POINT OF CARE TEST DOCKED DEVICE UNSOLICITED RESULTS Performing Organization Address City/[facility]/ZIP Co de Phone Number [facility] [address] [place] [address], [place] [phone] * POCT Glucose, blood (05/03/2024 4:12 PM EST) Glucose POCT 75 70 - 100 mg/dL 05/03/2024 4:13 PM EST [facility] Blood Capillary blood specimen / Unknown 05/03/2024 4:12 PM EST 05/03/2024 4:14 PM EST Neidamikal Bailey [employer] LAB POINT OF CARE TEST DOCKED DEVICE UNSOLICITED RESULTS [facility] [address] [place] [address], [place] [phone] * POCT Glucose, blood (05/03/2024 11:26 AM EST) Glucose POCT 90 70 - 100 mg/dL 05/03/2024 11:26 AM EST [facility] Blood Capillary blood specimen / Unknown 05/03/2024 11:26 AM EST 05/03/2024 11:28 AM EST Neida A Lynn DO LAB POINT OF CARE TEST DOCKED DEVICE UNSOLICITED RESULTS Performing Organization Address City/[facility]/ZIP Co de Phone Number [facility] [address] [place] [address], [place] [phone] * (ABNORMAL) POCT Glucose, blood (05/03/2024 7:14 AM EST) Glucose POCT 133(H) 70 - 100 mg/dL 05/03/2024 7:15 AM EST [facility] Blood Capillary blood specimen / Unknown 05/03/2024 7:14 AM EST 05/03/2024 7:16 AM EST Neida Riveroese DO LAB POINT OF CARE TEST DOCKED DEVICE UNSOLICITED RESULTS Performing Organization Address [facility]/ZIP Co de Phone Number [facility] [address] [place] [address], [place] [phone] * (ABNORMAL) POCT Glucose, blood (05/02/2024 8:39 PM EST) Glucose POCT 143(H) 70 - 100 mg/dL 05/02/2024 8:40 PM EST [facility] Blood Capillary blood specimen / Unknown 05/02/2024 8:39 PM EST 05/02/2024 8:41 PM EST Neida A Lynn DO LAB POINT OF CARE TEST DOCKED DEVICE UNSOLICITED RESULTS Performing Organization Address City/[facility]/ZIP Co de Phone Number [facility] [address] [place] [address], [place] [phone] * (ABNORMAL) POCT Glucose, blood (05/02/2024 3:33 PM EST) Glucose POCT 259(H) 70 - 100 mg/dL 05/02/2024 3:34 PM EST [facility] Blood Capillary blood specimen / Unknown 05/02/2024 3:33 PM EST 05/02/2024 3:35 PM EST Neida Bailey DO LAB POINT OF CARE TEST DOCKED DEVICE UNSOLICITED RESULTS [facility] [address] [place] [address], * (ABNORMAL) POCT Glucose, blood (05/02/2024 11:36 AM EST) Glucose POCT 185(H) 70 - 100 mg/dL 05/02/2024 11:36 AM EST [facility] Blood Capillary blood specimen / Unknown 05/02/2024 11:36 AM EST 05/02/2024 11:37 AM EST Neida Bailey DO [facility] POINT OF CARE TEST DOCKED DEVICE UNSOLICITED RESULTS [facility] [address] [place] [address], * (ABNORMAL) POCT Glucose, blood (05/02/2024 7:32 AM EST) Glucose POCT 123(H) 70 - 100 mg/dL 05/02/2024 7:33 AM EST [facility] Blood Capillary blood specimen / Unknown 05/02/2024 7:32 AM EST 05/02/2024 7:34 AM EST Neida Bailey DO LAB POINT OF CARE TEST DOCKED DEVICE UNSOLICITED RESULTS Performing Organization Address [facility]/ZIP Co de Phone Number [facility] [address] [place] [address], [place] [phone] * (ABNORMAL) POCT Glucose, blood (05/01/2024 8:15 PM EST) Glucose POCT 152(H) 70 - 100 mg/dL 05/01/2024 8:16 PM EST [facility] Blood Capillary blood specimen / Unknown 05/01/2024 8:15 PM EST 05/01/2024 8:17 PM EST [facility]INT OF [facility]ARE TEST DOCKED DEVICE UNSOLICITED RESULTS Performing Organization Address [facility] Co de Phone Number [facility] [address] [place] [address], [place] [phone] * (ABNORMAL) POCT Glucose, blood (05/01/2024 3:47 PM EST) Glucose POCT 177(H) 70 - 100 mg/dL 05/01/2024 3:49 PM EST [facility] Blood Capillary blood specimen / Unknown 05/01/2024 3:47 PM EST 05/01/2024 3:50 PM [facility] POINT OF [facility]ARE TEST DOCKED DEVICE UNSOLICITED RESULTS Performing Organization Address [facility]/ZIP Co de Phone Number [facility] [address] [place] [address], [place] [phone] * (ABNORMAL) POCT Glucose, blood (05/01/2024 11:05 AM EST) Glucose POCT 200(H) 70 - 100 mg/dL 05/01/2024 11:09 AM EST [facility] Blood Capillary blood specimen / Unknown 05/01/2024 11:05 AM EST 05/01/2024 11:10 AM EST Neida Bailey DO LAB POINT OF CARE TEST DOCKED DEVICE UNSOLICITED RESULTS Performing Organization Address [facility]/ZIP Co de Phone Number [facility] [address] [place] [address], [place] [phone] * (ABNORMAL) POCT Glucose, blood (05/01/2024 7:27 AM EST) Glucose POCT 132(H) 70 - 100 mg/dL 05/01/2024 7:28 AM EST [facility] Blood Capillary blood specimen / Unknown 05/01/2024 7:27 AM EST 05/01/2024 7:29 AM EST Neida Bailey [employer] LAB POINT OF CARE TEST DOCKED DEVICE UNSOLICITED RESULTS Performing Organization Address [facility]/ZIP Co de Phone Number [facility] [address] [place] [address], [place] [phone] * (ABNORMAL) POCT Glucose, blood (04/30/2024 7:55 PM EST) Glucose POCT 184(H) 70 - 100 mg/dL 04/30/2024 7:56 PM EST [facility] Blood Capillary blood specimen / Unknown 04/30/2024 7:55 PM EST 04/30/2024 7:57 PM EST Neida Bailey [employer] LAB POINT OF CARE TEST DOCKED DEVICE UNSOLICITED RESULTS Performing Organization Address [facility]/ZIP Co de Phone Number [facility] [address] [place] [address], [place] [phone] * (ABNORMAL) POCT Glucose, blood (04/30/2024 3:52 PM EST) Glucose POCT 170(H) 70 - 100 mg/dL 04/30/2024 3:53 PM EST [facility] Blood Capillary blood specimen / Unknown 04/30/2024 3:52 PM EST 04/30/2024 3:54 PM EST Neida Riveroese DO LAB POINT OF CARE TEST DOCKED DEVICE UNSOLICITED RESULTS Performing Organization Address City/[facility]/ZIP Co de Phone Number [facility] [address] [place] [address], [place] [phone] * (ABNORMAL) POCT Glucose, blood (04/30/2024 11:02 AM EST) Glucose POCT 174(H) 70 - 100 mg/dL 04/30/2024 11:04 AM EST [facility] Blood Capillary blood specimen / Unknown 04/30/2024 11:02 AM EST 04/30/2024 11:05 AM EST Neida Riveroese DO LAB POINT OF CARE TEST DOCKED DEVICE UNSOLICITED RESULTS Performing Organization Address [facility] Co de Phone Number [facility] [address] [place] [address], [place] [phone] * (ABNORMAL) POCT Glucose, blood (04/30/2024 7:15 AM EST) Glucose POCT 110(H) 70 - 100 mg/dL 04/30/2024 7:18 AM EST [facility] Blood Capillary blood specimen / Unknown 04/30/2024 7:15 AM EST 04/30/2024 7:19 AM EST Neida A Lynn DO LAB POINT OF CARE TEST DOCKED DEVICE UNSOLICITED RESULTS Performing Organization Address City/[facility]/ZIP Co de Phone Number [facility] [address] [place] [address], [place] [phone] * (ABNORMAL) POCT Glucose, blood (04/29/2024 8:10 PM EST) Glucose POCT 155(H) 70 - 100 mg/dL 04/29/2024 8:11 PM EST [facility] Blood Capillary blood specimen / Unknown 04/29/2024 8:10 PM EST 04/29/2024 8:12 PM EST Neida Emanuel [employer] LAB POINT OF CARE TEST DOCKED DEVICE UNSOLICITED RESULTS [facility] [address] [place] [address], * (ABNORMAL) POCT Glucose, blood (04/29/2024 3:42 PM EST) Glucose POCT 143(H) 70 - 100 mg/dL 04/29/2024 3:42 PM EST [facility] Blood Capillary blood specimen / Unknown 04/29/2024 3:42 PM EST 04/29/2024 3:43 PM EST Neida Lutz[employer] LAB POINT OF CARE TEST DOCKED DEVICE UNSOLICITED RESULTS [facility] [address] [place] [address], * (ABNORMAL) POCT Glucose, blood (04/29/2024 11:02 AM EST) Glucose POCT 145(H) 70 - 100 mg/dL 04/29/2024 11:04 AM EST [facility] Blood Capillary blood specimen / Unknown 04/29/2024 11:02 AM EST 04/29/2024 11:05 AM EST Neida A Lynn DO LAB POINT OF CARE TEST DOCKED DEVICE UNSOLICITED RESULTS Performing Organization Address [facility]/ZIP Co de Phone Number [facility] [address] [place] [address], * (ABNORMAL) POCT Glucose, blood (04/29/2024 7:19 AM EST) Glucose POCT 114(H) 70 - 100 mg/dL 04/29/2024 7:20 AM [facility] Blood Capillary blood specimen / Unknown 04/29/2024 7:19 AM EST 04/29/2024 7:21 AM EST Neida Bailey DO LAB POINT OF CARE TEST DOCKED DEVICE UNSOLICITED RESULTS Performing Organization Address [facility]/ZIP Co de Phone Number [facility] [address] [place] [address], * (ABNORMAL) Complete blood count (04/29/2024 6:07 AM EST) WBC 7.8 4.8 - 10.8 K/mcL LAB HEMETOLOGY METHOD 04/29/2024 7:00 AM [facility] RBC 4.30 3.80 - 4.80 M/mcL LAB HEMETOLOGY METHOD 04/29/2024 7:00 AM [facility] Hemoglobin 12.4 11.5 - 16.0 g/dL LAB HEMETOLOGY METHOD 04/29/2024 7:00 AM [facility] Hematocrit 38.2 35.0 - 47.0 % LAB HEMETOLOGY METHOD 04/29/2024 7:00 AM [facility] MCV 89.7 79.0 - 98.0 FL LAB HEMETOLOGY METHOD 04/29/2024 7:00 AM [facility] MCH 29.1 27.0 - 32.0 pcg LAB HEMETOLOGY METHOD 04/29/2024 7:00 AM EST [facility] MCHC 32.5 32.0 - 37.0 g/dL LAB HEMETOLOGY METHOD 04/29/2024 7:00 AM [facility] RDW 12.6 11.0 - 15.0 % LAB HEMETOLOGY METHOD 04/29/2024 7:00 AM [facility] Platelets 291 130 - 400 K/mcL LAB HEMETOLOGY METHOD 04/29/2024 7:00 AM [facility] MPV 12.0(H) 7.0 - 11.0 FL LAB HEMETOLOGY METHOD 04/29/2024 7:00 AM [facility] NRBC 0.0 <1.0 % LAB HEMETOLOGY METHOD 04/29/2024 7:00 AM [facility] NRBC Absolute 0.00 <0.10 K/mcL LAB HEMETOLOGY METHOD 04/29/2024 7:00 AM [facility] Blood Venous blood specimen / Unknown Venipuncture / Unknown 04/29/2024 6:07 AM EST 04/29/2024 6:43 AM EST Leah Philippe NP LAB BLOOD OR DERABLES [facility] [address] [place] [address], * (ABNORMAL) Basic metabolic panel (04/29/2024 6:07 AM EST) Sodium 141 133 - 145 mmol/L LAB CHEMISTRY METHOD 04/29/2024 7:29 AM [facility] Potassium 4.2 3.5 - 5.5 mmol/L LAB CHEMISTRY METHOD 04/29/2024 7:29 AM [facility] Chloride 106 96 - 110 mmol/L LAB CHEMISTRY METHOD 04/29/2024 7:29 AM [facility] CO2 28 21 - 32 mmol/L LAB CHEMISTRY METHOD 04/29/2024 7:29 AM [facility] Anion Gap 7 3 - 11 LAB CHEMISTRY METHOD 04/29/2024 7:29 AM [facility] Glucose 110(H) 70 - 100 mg/dL LAB CHEMISTRY METHOD 04/29/2024 7:29 AM [facility] BUN 11 5 - 25 mg/dL LAB CHEMISTRY METHOD 04/29/2024 7:29 AM [facility] Creatinine 0.68 0.50 - 1.10 mg/dL LAB CHEMISTRY METHOD 04/29/2024 7:29 AM [facility] eGFR 109 >=60 mL/min/1. 73m2 LAB CHEMISTRY METHOD 04/29/2024 7:29 AM [facility] Comment:Calculation based on the??Chronic Kidney Disease Epidemiology Collaboration (CKD-EPI) equation refit??without adjustment for race. BUN/Creatinine Ratio 16.2 LAB CHEMISTRY METHOD 04/29/2024 7:29 AM [facility] Calcium 9.7 8.5 - 10.5 mg/dL LAB CHEMISTRY METHOD 04/29/2024 7:29 AM [facility] Blood Venous blood specimen / Unknown Venipuncture / Unknown 04/29/2024 6:07 AM EST 04/29/2024 6:43 AM EST Leah Philippe NP LAB BLOOD OR DERABLES [facility] [address] [place] [address], * (ABNORMAL) POCT Glucose, blood (04/28/2024 8:05 PM EST) Glucose POCT 153(H) 70 - 100 mg/dL 04/28/2024 8:06 PM [facility] Blood Capillary blood specimen / Unknown 04/28/2024 8:05 PM EST 04/28/2024 8:07 PM EST Neida Bailey DO LAB POINT OF CARE TEST DOCKED DEVICE UNSOLICITED RESULTS Performing Organization Address [facility]/ZIP Co de Phone Number [facility] [address] [place] [address], [place] [phone] * (ABNORMAL) POCT Glucose, blood (04/28/2024 4:03 PM EST) Glucose POCT 254(H) 70 - 100 mg/dL 04/28/2024 4:03 PM EST [facility] Blood Capillary blood specimen / Unknown 04/28/2024 4:03 PM EST 04/28/2024 4:04 PM EST Neida Bailey LAB POINT OF CARE TEST DOCKED DEVICE UNSOLICITED RESULTS Performing Organization Address [facility]/ZIP Co de Phone Number [facility] [address] [place] [address], [place] [phone] * (ABNORMAL) POCT Glucose, blood (04/28/2024 11:17 AM EST) Glucose POCT 163(H) 70 - 100 mg/dL 04/28/2024 11:18 AM EST [facility] Blood Capillary blood specimen / Unknown 04/28/2024 11:17 AM EST 04/28/2024 11:19 AM EST Neida A Lynn [facility] LAB POINT OF CARE TEST DOCKED DEVICE UNSOLICITED RESULTS Performing Organization Address City/[facility]/ZIP Co de Phone Number [facility] [address] [place] [address], [place] [phone] * (ABNORMAL) POCT Glucose, blood (04/28/2024 7:17 AM EST) Glucose POCT 143(H) 70 - 100 mg/dL 04/28/2024 7:19 AM EST [facility] Blood Capillary blood specimen / Unknown 04/28/2024 7:17 AM EST 04/28/2024 7:20 AM EST Neida A Lynn DO LAB POINT OF CARE TEST DOCKED DEVICE UNSOLICITED RESULTS [facility] [address] [place] [address], [place] [phone] * (ABNORMAL) POCT Glucose, blood (04/27/2024 8:17 PM EST) Glucose POCT 256(H) 70 - 100 mg/dL 04/27/2024 8:17 PM EST [facility] Blood Capillary blood specimen / Unknown 04/27/2024 8:17 PM EST 04/27/2024 8:18 PM EST Neida Riveroese DO LAB POINT OF CARE TEST DOCKED DEVICE UNSOLICITED RESULTS Performing Organization Address [facility]/ZIP Co de Phone Number [facility] [address] [place] [address], [place] [phone] * (ABNORMAL) POCT Glucose, blood (04/27/2024 4:45 PM EST) Glucose POCT 274(H) 70 - 100 mg/dL 04/27/2024 4:46 PM EST [facility] Blood Capillary blood specimen / Unknown 04/27/2024 4:45 PM EST 04/27/2024 4:47 PM EST Neida A Lynn DO LAB POINT OF CARE TEST DOCKED DEVICE UNSOLICITED RESULTS Performing Organization Address City/[facility]/ZIP Co de Phone Number [facility] [address] [place] [address], [place] [phone] * (ABNORMAL) POCT Glucose, blood (04/27/2024 11:11 AM EST) Glucose POCT 191(H) 70 - 100 mg/dL 04/27/2024 11:12 AM EST [facility] Blood Capillary blood specimen / Unknown 04/27/2024 11:11 AM EST 04/27/2024 11:13 AM EST Neida [employer] LAB POINT OF CARE TEST DOCKED DEVICE UNSOLICITED RESULTS [facility] [address] [place] [address], * (ABNORMAL) POCT Glucose, blood (04/27/2024 7:27 AM EST) Glucose POCT 195(H) 70 - 100 mg/dL 04/27/2024 7:30 AM EST [facility] Blood Capillary blood specimen / Unknown 04/27/2024 7:27 AM EST 04/27/2024 7:31 AM EST Neida Bailey [employer] LAB POINT OF CARE TEST DOCKED DEVICE UNSOLICITED RESULTS [facility] [address] [place] [address], [place] [phone] * (ABNORMAL) POCT Glucose, blood (04/26/2024 8:14 PM EST) Glucose POCT 267(H) 70 - 100 mg/dL 04/26/2024 8:15 PM EST [facility] Blood Capillary blood specimen / Unknown 04/26/2024 8:14 PM EST 04/26/2024 8:16 PM EST Neida A Lynn DO LAB POINT OF CARE TEST DOCKED DEVICE UNSOLICITED RESULTS Performing Organization Address [facility] Co de Phone Number [facility] [address] [place] [address], [place] [phone] * (ABNORMAL) POCT Glucose, blood (04/26/2024 4:18 PM EST) Glucose POCT 263(H) 70 - 100 mg/dL 04/26/2024 4:19 PM EST [facility] Blood Capillary blood specimen / Unknown 04/26/2024 4:18 PM EST 04/26/2024 4:19 PM EST Neida Emanuel Bailey DO LAB POINT OF CARE TEST DOCKED DEVICE UNSOLICITED RESULTS Performing Organization Address [facility] Co de Phone Number [facility] [address] [place] [address], * (ABNORMAL) POCT Glucose, blood (04/26/2024 11:05 AM EST) Glucose POCT 228(H) 70 - 100 mg/dL 04/26/2024 11:11 AM EST [facility] Blood Capillary blood specimen / Unknown 04/26/2024 11:05 AM EST 04/26/2024 11:12 AM EST Neidamikal Bailey LAB POINT OF CARE TEST DOCKED DEVICE UNSOLICITED RESULTS Performing Organization Address [facility] Co de Phone Number [facility] [address] [place] [address], [place] [phone] * (ABNORMAL) POCT Glucose, blood (04/26/2024 7:24 AM EST) Glucose POCT 143(H) 70 - 100 mg/dL 04/26/2024 7:29 AM EST [facility] Blood Capillary blood specimen / Unknown 04/26/2024 7:24 AM EST 04/26/2024 7:30 AM EST Neida Bailey DO LAB POINT OF CARE TEST DOCKED DEVICE UNSOLICITED RESULTS Performing Organization Address [facility]/ZIP Co de Phone Number [facility] [address] [place] [address], [place] [phone] * (ABNORMAL) POCT Glucose, blood (04/25/2024 8:00 PM EST) Glucose POCT 262(H) 70 - 100 mg/dL 04/25/2024 8:02 PM EST [facility] Blood Capillary blood specimen / Unknown 04/25/2024 8:00 PM EST 04/25/2024 8:03 PM EST Neida Bailey LAB POINT OF CARE TEST DOCKED DEVICE UNSOLICITED RESULTS Performing Organization Address [facility] Co de Phone Number [facility] [address] [place] [address], [place] [phone] * (ABNORMAL) POCT Glucose, blood (04/25/2024 3:51 PM EST) Glucose POCT 293(H) 70 - 100 mg/dL 04/25/2024 3:52 PM EST [facility] Blood Capillary blood specimen / Unknown 04/25/2024 3:51 PM EST 04/25/2024 3:53 PM EST Neida Bailey [employer] LAB POINT OF CARE TEST DOCKED DEVICE UNSOLICITED RESULTS Performing Organization Address [facility] Co de Phone Number [facility] [address] [place] [address], [place] [phone] * (ABNORMAL) POCT Glucose, blood (04/25/2024 11:10 AM EST) Glucose POCT 188(H) 70 - 100 mg/dL 04/25/2024 11:26 AM EST [facility] Blood Capillary blood specimen / Unknown 04/25/2024 11:10 AM EST 04/25/2024 11:27 AM EST Neida Emanuel Lynn DO LAB POINT OF CARE TEST DOCKED DEVICE UNSOLICITED RESULTS Performing Organization Address City/[facility]/ZIP Co de Phone Number [facility] [address] [place] [address], [place] [phone] * (ABNORMAL) POCT Glucose, blood (04/25/2024 7:36 AM EST) Glucose POCT 279(H) 70 - 100 mg/dL 04/25/2024 7:38 AM EST [facility] Blood Capillary blood specimen / Unknown 04/25/2024 7:36 AM EST 04/25/2024 7:39 AM EST Neida [employer] LAB POINT OF CARE TEST DOCKED DEVICE UNSOLICITED RESULTS Performing Organization Address [facility] Co de Phone Number [facility] [address] [place] [address], [place] [phone] * (ABNORMAL) POCT Glucose, blood (04/24/2024 8:08 PM EST) Glucose POCT 331(H) 70 - 100 mg/dL 04/24/2024 8:08 PM EST [facility] Blood Capillary blood specimen / Unknown 04/24/2024 8:08 PM EST 04/24/2024 8:09 PM EST Neidamikal Lutzabrese DO LAB POINT OF CARE TEST DOCKED DEVICE UNSOLICITED RESULTS Performing Organization Address City/[facility]/ZIP Co de Phone Number [facility] [address] [place] [address], [place] [phone] * (ABNORMAL) POCT Glucose, blood (04/24/2024 4:07 PM EST) Glucose POCT 242(H) 70 - 100 mg/dL 04/24/2024 4:08 PM EST [facility] Blood Capillary blood specimen / Unknown 04/24/2024 4:07 PM EST 04/24/2024 4:09 PM EST Neida Castellanos [employer] LAB POINT OF CARE TEST DOCKED DEVICE UNSOLICITED RESULTS [facility] [address] [place] [address], [place] [phone] * (ABNORMAL) POCT Glucose, blood (04/24/2024 11:12 AM EST) Glucose POCT 171(H) 70 - 100 mg/dL 04/24/2024 11:13 AM EST [facility] Blood Capillary blood specimen / Unknown 04/24/2024 11:12 AM EST 04/24/2024 11:14 AM EST Neida [employer] LAB POINT OF CARE TEST DOCKED DEVICE UNSOLICITED RESULTS [facility] [address] [place] [address], [place] [phone] * (ABNORMAL) POCT Glucose, blood (04/24/2024 7:34 AM EST) Glucose POCT 129(H) 70 - 100 mg/dL 04/24/2024 7:37 AM EST [facility] Blood Capillary blood specimen / Unknown 04/24/2024 7:34 AM EST 04/24/2024 7:38 AM EST Neida Castellanos [employer] LAB POINT OF CARE TEST DOCKED DEVICE UNSOLICITED RESULTS Performing Organization Address [facility] Co de Phone Number [facility] [address] [place] [address], * (ABNORMAL) POCT Glucose, blood (04/23/2024 8:21 PM EST) Glucose POCT 242(H) 70 - 100 mg/dL 04/23/2024 8:22 PM EST [facility] Blood Capillary blood specimen / Unknown 04/23/2024 8:21 PM EST 04/23/2024 8:23 PM EST Neida Castellanos [employer] LAB POINT OF CARE TEST DOCKED DEVICE UNSOLICITED RESULTS Performing Organization Address [facility] Co de Phone Number [facility] [address] [place] [address], [place] [phone] * (ABNORMAL) POCT Glucose, blood (04/23/2024 4:09 PM EST) Glucose POCT 253(H) 70 - 100 mg/dL 04/23/2024 4:10 PM EST [facility] Blood Capillary blood specimen / Unknown 04/23/2024 4:09 PM EST 04/23/2024 4:11 PM EST Neida Riveroese LAB POINT OF CARE TEST DOCKED DEVICE UNSOLICITED RESULTS Performing Organization Address City/[facility]/ZIP Co de Phone Number [facility] [address] [place] [address], [place] [phone] * (ABNORMAL) POCT Glucose, blood (04/23/2024 11:31 AM EST) Glucose POCT 206(H) 70 - 100 mg/dL 04/23/2024 11:32 AM EST [facility] Blood Capillary blood specimen / Unknown 04/23/2024 11:31 AM EST 04/23/2024 11:33 AM EST Neida Bailey DO LAB POINT OF CARE TEST DOCKED DEVICE UNSOLICITED RESULTS Performing Organization Address [facility] Co de Phone Number [facility] [address] [place] [address], [place] [phone] * POCT Glucose, blood (04/23/2024 7:14 AM EST) Glucose POCT 99 70 - 100 mg/dL 04/23/2024 7:14 AM EST [facility] Blood Capillary blood specimen / Unknown 04/23/2024 7:14 AM EST 04/23/2024 7:15 AM EST Neidamikal Bailey LAB POINT OF CARE TEST DOCKED DEVICE UNSOLICITED RESULTS Performing Organization Address [facility] de Phone Number [facility] [address] [place] [address], [place] [phone] * (ABNORMAL) POCT Glucose, blood (04/22/2024 8:22 PM EST) Glucose POCT 178(H) 70 - 100 mg/dL 04/22/2024 8:23 PM EST [facility] Blood Capillary blood specimen / Unknown 04/22/2024 8:22 PM EST 04/22/2024 8:25 PM EST Neidamikal Bailey [employer] LAB POINT OF CARE TEST DOCKED DEVICE UNSOLICITED RESULTS Performing Organization Address [facility] Co de Phone Number [facility] [address] [place] [address], [place] [phone] * (ABNORMAL) POCT Glucose, blood (04/22/2024 3:59 PM EST) Glucose POCT 295(H) 70 - 100 mg/dL 04/22/2024 4:00 PM EST [facility] Blood Capillary blood specimen / Unknown 04/22/2024 3:59 PM EST 04/22/2024 4:01 PM EST Neida Bailey DO LAB POINT OF CARE TEST DOCKED DEVICE UNSOLICITED RESULTS [facility] [address] [place] [address], [place] [phone] * (ABNORMAL) POCT Glucose, blood (04/22/2024 11:08 AM EST) Glucose POCT 183(H) 70 - 100 mg/dL 04/22/2024 11:10 AM EST [facility] Blood Capillary blood specimen / Unknown 04/22/2024 11:08 AM EST 04/22/2024 11:11 AM EST Neidamikal Bailey [employer] LAB POINT OF CARE TEST DOCKED DEVICE UNSOLICITED RESULTS Performing Organization Address City/[facility]/ZIP Co de Phone Number [facility] [address] [place] [address], [place] [phone] * (ABNORMAL) POCT Glucose, blood (04/22/2024 7:27 AM EST) Glucose POCT 141(H) 70 - 100 mg/dL 04/22/2024 7:28 AM EST [facility] Blood Capillary blood specimen / Unknown 04/22/2024 7:27 AM EST 04/22/2024 7:29 AM EST Neidamikal Bailey DO LAB POINT OF CARE TEST DOCKED DEVICE UNSOLICITED RESULTS [facility] [address] [place] [address], [place] [phone] * (ABNORMAL) POCT Glucose, blood (04/21/2024 8:16 PM EST) Glucose POCT 280(H) 70 - 100 mg/dL 04/21/2024 8:17 PM EST [facility] Blood Capillary blood specimen / Unknown 04/21/2024 8:16 PM EST 04/21/2024 8:19 PM EST Neida Castellanos Lynn DO LAB POINT OF CARE TEST DOCKED DEVICE UNSOLICITED RESULTS [facility] [address] [place] [address], [place] [phone] * (ABNORMAL) POCT Glucose, blood (04/21/2024 3:46 PM EST) Glucose POCT 198(H) 70 - 100 mg/dL 04/21/2024 3:57 PM EST [facility] Blood Capillary blood specimen / Unknown 04/21/2024 3:46 PM EST 04/21/2024 3:59 PM EST Neida Riveroese [employer] LAB POINT OF CARE TEST DOCKED DEVICE UNSOLICITED RESULTS Performing Organization Address City/[facility]/ZIP Co de Phone Number [facility] [address] [place] [address], [place] [phone] * (ABNORMAL) POCT Glucose, blood (04/21/2024 11:01 AM EST) Glucose POCT 162(H) 70 - 100 mg/dL 04/21/2024 11:04 AM EST [facility] Blood Capillary blood specimen / Unknown 04/21/2024 11:01 AM EST 04/21/2024 11:05 AM EST Neida Castellanos Lynn DO LAB POINT OF CARE TEST DOCKED DEVICE UNSOLICITED RESULTS [facility] [address] [place] [address], * POCT Glucose, blood (04/21/2024 7:19 AM EST) Glucose POCT 92 70 - 100 mg/dL 04/21/2024 7:21 AM EST [facility] Blood Capillary blood specimen / Unknown 04/21/2024 7:19 AM EST 04/21/2024 7:22 AM EST Neida A Nebo LAB POINT OF CARE TEST DOCKED DEVICE UNSOLICITED RESULTS [facility] [address] [place] [address], [place] [phone] * (ABNORMAL) POCT Glucose, blood (04/20/2024 7:59 PM EST) Glucose POCT 282(H) 70 - 100 mg/dL 04/20/2024 8:16 PM EST [facility] Blood Capillary blood specimen / Unknown 04/20/2024 7:59 PM EST 04/20/2024 8:17 PM EST Neida Riveroese LAB POINT OF CARE TEST DOCKED DEVICE UNSOLICITED RESULTS [facility] [address] [place] [address], [place] [phone] * (ABNORMAL) POCT Glucose, blood (04/20/2024 3:39 PM EST) Glucose POCT 180(H) 70 - 100 mg/dL 04/20/2024 3:40 PM EST [facility] Blood Capillary blood specimen / Unknown 04/20/2024 3:39 PM EST 04/20/2024 3:41 PM EST Neida Bailey DO LAB POINT OF CARE TEST DOCKED DEVICE UNSOLICITED RESULTS Performing Organization Address [facility] Co de Phone Number [facility] [address] [place] [address], [place] [phone] * (ABNORMAL) POCT Glucose, blood (04/20/2024 11:01 AM EST) Glucose POCT 183(H) 70 - 100 mg/dL 04/20/2024 11:12 AM EST [facility] Blood Capillary blood specimen / Unknown 04/20/2024 11:01 AM EST 04/20/2024 11:13 AM EST Neida Bailey LAB POINT OF CARE TEST DOCKED DEVICE UNSOLICITED RESULTS Performing Organization Address [facility] Co de Phone Number [facility] [address] [place] [address], [place] [phone] * POCT Glucose, blood (04/20/2024 7:31 AM EST) Glucose POCT 85 70 - 100 mg/dL 04/20/2024 7:35 AM EST [facility] Blood Capillary blood specimen / Unknown 04/20/2024 7:31 AM EST 04/20/2024 7:36 AM EST Neida Bailey LAB POINT OF CARE TEST DOCKED DEVICE UNSOLICITED RESULTS Performing Organization Address City/[facility]/ZIP Co de Phone Number [facility] [address] [place] [address], [place] [phone] * (ABNORMAL) CBC auto differential (04/20/2024 5:44 AM EST) WBC 9.0 4.8 - 10.8 K/[facility] LAB HEMETOLOGY METHOD 04/20/2024 6:46 AM EST [facility] RBC 4.60 3.80 - 4.80 M/mcL LAB HEMETOLOGY METHOD 04/20/2024 6:46 AM [facility] Hemoglobin 13.5 11.5 - 16.0 g/dL LAB HEMETOLOGY METHOD 04/20/2024 6:46 AM [facility] Hematocrit 41.1 35.0 - 47.0 % LAB HEMETOLOGY METHOD 04/20/2024 6:46 AM [facility] MCV 89.0 79.0 - 98.0 FL LAB HEMETOLOGY METHOD 04/20/2024 6:46 AM [facility] MCH 29.2 27.0 - 32.0 pcg LAB HEMETOLOGY METHOD 04/20/2024 6:46 AM [facility] MCHC 32.8 32.0 - 37.0 g/dL LAB HEMETOLOGY METHOD 04/20/2024 6:46 AM [facility] RDW 12.7 11.0 - 15.0 % LAB HEMETOLOGY METHOD 04/20/2024 6:46 AM [facility] Platelets 310 130 - 400 K/mcL LAB HEMETOLOGY METHOD 04/20/2024 6:46 AM [facility] MPV 11.8(H) 7.0 - 11.0 FL LAB HEMETOLOGY METHOD 04/20/2024 6:46 AM [facility] NRBC 0.0 <1.0 % LAB HEMETOLOGY METHOD 04/20/2024 6:46 AM [facility] NRBC Absolute 0.00 <0.10 K/mcL LAB HEMETOLOGY METHOD 04/20/2024 6:46 AM [facility] Neutrophils Relative 78.2 % LAB HEMETOLOGY METHOD 04/20/2024 6:46 AM [facility] Lymphocytes Relative 12.8 % LAB HEMETOLOGY METHOD 04/20/2024 6:46 AM EST [facility] Monocytes Relative 7.6 % LAB HEMETOLOGY METHOD 04/20/2024 6:46 AM [facility] Eosinophils Relative 0.9 % LAB HEMETOLOGY METHOD 04/20/2024 6:46 AM [facility] Basophils Relative 0.2 % LAB HEMETOLOGY METHOD 04/20/2024 6:46 AM [facility] Immature Granulocytes Relative 0.3 % LAB HEMETOLOGY METHOD 04/20/2024 6:46 AM [facility] Neutrophils Absolute 7.05(H) 1.50 - 7.00 K/mcL LAB HEMETOLOGY METHOD 04/20/2024 6:46 AM [facility] Lymphocytes Absolute 1.16 1.00 - 5.00 K/mcL LAB HEMETOLOGY METHOD 04/20/2024 6:46 AM [facility] Monocytes Absolute 0.69 0.20 - 1.00 K/mcL LAB HEMETOLOGY METHOD 04/20/2024 6:46 AM [facility] Eosinophils Absolute 0.08 0.00 - 0.50 K/mcL LAB HEMETOLOGY METHOD 04/20/2024 6:46 AM [facility] Basophils Absolute 0.02 0.00 - 0.20 K/mcL LAB HEMETOLOGY METHOD 04/20/2024 6:46 AM [facility] Immature Granulocytes Absolute 0.03 0.00 - 0.03 K/mcL LAB HEMETOLOGY METHOD 04/20/2024 6:46 AM [facility] Blood Venous blood specimen / Unknown Venipuncture / Unknown 04/20/2024 5:44 AM EST 04/20/2024 6:35 AM EST Kelby SALINAS LAB BLOOD ORDERABLES [facility] [address] [place] [address], [place] [phone] * Comprehensive metabolic panel (04/20/2024 5:44 AM EST) Sodium 140 133 - 145 mmol/L LAB CHEMISTRY METHOD 04/20/2024 7:03 AM [facility] Potassium 3.8 3.5 - 5.5 mmol/L LAB CHEMISTRY METHOD 04/20/2024 7:03 AM [facility] Chloride 106 96 - 110 mmol/L LAB CHEMISTRY METHOD 04/20/2024 7:03 AM [facility] CO2 28 21 - 32 mmol/L LAB CHEMISTRY METHOD 04/20/2024 7:03 AM [facility] Anion Gap 6 3 - 11 LAB CHEMISTRY METHOD 04/20/2024 7:03 AM [facility] Glucose 91 70 - 100 mg/dL LAB CHEMISTRY METHOD 04/20/2024 7:03 AM [facility] BUN 16 5 - 25 mg/dL LAB CHEMISTRY METHOD 04/20/2024 7:03 AM [facility] Creatinine 0.70 0.50 - 1.10 mg/dL LAB CHEMISTRY METHOD 04/20/2024 7:03 AM [facility] eGFR 108 >=60 mL/min/1. 73m2 LAB CHEMISTRY METHOD 04/20/2024 7:03 AM [facility] Comment:Calculation based on the??Chronic Kidney Disease Epidemiology Collaboration (CKD-EPI) equation refit??without adjustment for race. BUN/Creatinine Ratio 22.9 LAB CHEMISTRY METHOD 04/20/2024 7:03 AM [facility] Calcium 9.6 8.5 - 10.5 mg/dL LAB CHEMISTRY METHOD 04/20/2024 7:03 AM [facility] AST (SGOT) 27 10 - 42 unit/L LAB CHEMISTRY METHOD 04/20/2024 7:03 AM [facility] ALT (SGPT) 32 10 - 60 unit/L LAB CHEMISTRY METHOD 04/20/2024 7:03 AM [facility] Alkaline Phosphatase 89 42 - 121 unit/L LAB CHEMISTRY METHOD 04/20/2024 7:03 AM [facility] Total Protein 6.3 6.0 - 8.0 g/dL LAB CHEMISTRY METHOD 04/20/2024 7:03 AM [facility] Albumin 3.2 3.2 - 5.0 g/dL LAB CHEMISTRY METHOD 04/20/2024 7:03 AM [facility] Total Bilirubin 0.6 0.0 - 1.4 mg/dL LAB CHEMISTRY METHOD 04/20/2024 7:03 AM [facility] Blood Venous blood specimen / Unknown Venipuncture / Unknown 04/20/2024 5:44 AM EST 04/20/2024 6:35 AM EST Kelby SALINAS LAB BLOOD ORDERABLES Performing Organization Address City/[facility]/ZIP Co de Phone Number [facility] [address] [place] [address], * (ABNORMAL) POCT Glucose, blood (04/19/2024 8:29 PM EST) [facility] Signature Glucose POCT 318(H) 70 - 100 mg/dL 04/19/2024 8:30 PM [facility] Blood Capillary blood specimen / Unknown 04/19/2024 8:29 PM EST 04/19/2024 8:32 PM EST Neiad Bailey DO LAB POINT OF CARE TEST DOCKED DEVICE UNSOLICITED RESULTS Performing Organization Address [facility]/ZIP Co de Phone Number [facility] [address] [place] [address], [place] [phone] * (ABNORMAL) POCT Glucose, blood (04/19/2024 5:48 PM EST) Glucose POCT 259(H) 70 - 100 mg/dL 04/19/2024 5:48 PM EST [facility] Blood Capillary blood specimen / Unknown 04/19/2024 5:48 PM EST 04/19/2024 5:49 PM EST Neida Bailey DO LAB POINT OF CARE TEST DOCKED DEVICE UNSOLICITED RESULTS [facility] [address] [place] [address], documented in this encounter Visit Diagnoses Diagnosis Stroke ([facility]) [I63.9]- Primary Unspecified cerebral artery occlusion with cerebral infarction HTN (hypertension) Unspecified essential hypertension DM (diabetes mellitus) ([facility]) Type II or unspecified type diabetes mellitus without mention of complication, not stated as uncontrolled CVA (cerebral vascular accident) ([facility]) Unspecified cerebral artery occlusion with cerebral infarction documented in this encounter Administered Medications Inactive Administered Medications - up to 3 most recent administrations Medication Order MAR Action Action Date Dose Rate Site acetaminophen (TYLENOL) tablet 650 mg 650 mg, oral, Every 6 hours PRN, mild pain, fever - temperature GREATER than 38 C (100.4 F), Starting on Mon04/19/24 at 1848 Given 05/30/2024 8:16 AM EST 650 mg Given 05/18/2024 10:06 PM EST 650 mg Given 05/06/2024 3:54 AM EST 650 mg aluminum-magnesium hydroxide-simethicone (MAALOX) 200-200-20 mg/5 mL suspension 30 mL 30 mL, oral, Every 4 hours PRN, heartburn, Starting on Mon04/19/24 at 1848 Given 05/06/2024 3:54 AM EST 30 mL Given 04/23/2024 5:30 AM EST 30 mL amLODIPine (NORVASC) tablet 10 mg 10 mg, oral, Daily, First dose (after last modification) on Mon05/24/24 at 0900 Given 05/31/2024 8:06 AM EST 10 mg Given 05/30/2024 8:14 AM EST 10 mg Given 05/29/2024 8:11 AM EST 10 mg amLODIPine (NORVASC) tablet 5 mg 5 mg, oral, Daily, First dose on 04/28/24 at 2100 Given 05/23/2024 8:00 AM EST 5 mg Given 05/22/2024 8:16 AM EST 5 mg Given 05/21/2024 8:16 AM EST 5 mg aspirin EC tablet 81 mg 81 mg, oral, Daily, First dose on 04/20/24 at 0900, Do not crush, chew, or split., Indications: cerebral thromboembolism prevention Given 05/31/2024 8:06 AM EST 81 mg Given 05/30/2024 8:14 AM EST 81 mg Given 05/29/2024 8:09 AM EST 81 mg atorvastatin (LIPITOR) tablet 10 mg 10 mg, oral, Nightly, First dose on Mon05/24/24 at 2100 Given 05/30/2024 9:08 PM EST 10 mg Given 05/29/2024 8:50 PM EST 10 mg Given 05/28/2024 8:22 PM EST 10 mg atorvastatin (LIPITOR) tablet 80 mg 80 mg, oral, Nightly, First dose on Mon04/19/24 at 2100 Given 05/16/2024 8:12 PM EST 80 mg Given 05/15/2024 9:00 PM EST 80 mg Given 05/14/2024 8:20 PM EST 80 mg cholecalciferol (VITAMIN D-3) tablet 2,000 Units 2,000 Units, oral, Daily, First dose on Mon05/19/24 at 1045, 1000 units = 25 mcg of cholecalciferol (VITAMIN D3) Given 05/31/2024 8:06 AM EST 2,000 Units Given 05/30/2024 8:15 AM EST 2,000 Units Given 05/29/2024 8:09 AM EST 2,000 Units clopidogreL (PLAVIX) tablet 75 mg 75 mg, oral, Daily, First dose on 04/20/24 at 0900, Indications: cerebral thromboembolism prevention Given 05/31/2024 8:06 AM EST 75 mg Given 05/30/2024 8:15 AM EST 75 mg Given 05/29/2024 8:09 AM EST 75 mg cyanocobalamin (VITAMIN B-12) injection 1,000 mcg 1,000 mcg, intramuscular, Daily, First dose on 05/19/25 at 1300, For 5 days Given 05/23/2024 8:01 AM EST 1,000 mcg Right Deltoid Given 05/22/2024 8:16 AM EST 1,000 mcg Le ft Deltoid Given 05/21/2024 8:15 AM EST 1,000 mcg Le ft Deltoid cyanocobalamin (VITAMIN B-12) tablet 1,000 mcg 1,000 mcg, oral, Daily, First dose on Mon05/24/24 at 0900 Given 05/31/2024 8:06 AM EST 1,000 mcg Given 05/30/2024 8:15 AM EST 1,000 mcg Given 05/29/2024 8:10 AM EST 1,000 mcg dextrose (D50W) 50% injection 12.5 g 12.5 g, intravenous, Every 15 min PRN, low blood sugar, moderate hypoglycemia *Patient is Unconscious, NPO, unable to swallow: BG 54 - 69 mg/dl*, Starting on Mon04/19/24 at 1848, For 1 dose dextrose (D50W) 50% injection 25 g 25 g, intravenous, Every 15 min PRN, severe hypoglycemia *Patient is Unconscious, NPO, unable to swallow: BG LESS than 54 mg/dL*, Starting on Mon04/19/24 at 1848 dextrose 15 gram/60 mL oral solution 15 g 15 g, oral, Every 15 min PRN, low blood sugar, hypoglycemia *Patient conscious AND able to drink and swallow safely*, Starting on Mon04/19/24 at 1848 dextrose 15 gram/60 mL oral solution 30 g 30 g, oral, Every 15 min PRN, low blood sugar, hypoglycemia *Patient conscious AND able to drink and swallow safely*, Starting on Mon04/19/24 at 1848 docusate sodium (COLACE) capsule 100 mg 100 mg, oral, 2 times daily, First dose on Mon04/19/24 at 2100 Given 04/30/2024 8:28 AM EST 100 mg Given 04/29/2024 9:01 PM EST 100 mg Given 04/29/2024 8:19 AM EST 100 mg enoxaparin (LOVENOX) injection 40 mg 40 mg, subcutaneous, Daily, First dose on Mon04/20/24 at 1400, Indication: VTE/PE Prophylaxis Given 05/07/2024 9:23 AM EST 40 mg Right Lower Abdomen Given 05/06/2024 8:51 AM EST 40 mg Le ft Upper Abdomen Given 05/05/2024 8:02 AM EST 40 mg Le ft Lower Abdomen enoxaparin (LOVENOX) injection 40 mg 40 mg, subcutaneous, Every 24 hours scheduled, First dose on Mon05/12/24 at 1230, Indication: VTE/PE Prophylaxis Given 05/31/2024 8:05 AM EST 40 mg Left Upper Abdomen Given 05/30/2024 8:16 AM EST 40 mg Ri ght Upper Abdomen Given 05/29/2024 8:09 AM EST 40 mg Le ft Upper Abdomen escitalopram (LEXAPRO) tablet 5 mg 5 mg, oral, Daily, First dose on Mon05/24/24 at 1215 Given 05/31/2024 8:06 AM EST 5 mg Given 05/30/2024 8:14 AM EST 5 mg Given 05/29/2024 8:10 AM EST 5 mg glipiZIDE (GLUCOTROL) tablet 5 mg 5 mg, oral, Every morning before breakfast, First dose on Mon05/03/24 at 0700, Hold if NPO , Indications: type 2 diabetes mellitus Given 05/31/2024 8:06 AM EST 5 mg Given 05/30/2024 8:15 AM EST 5 mg Given 05/29/2024 8:09 AM EST 5 mg Glucagon HCl (rDNA) injection 1 mg 1 mg, intramuscular, Once as needed, low blood sugar, severe hypoglycemia, Starting on Mon04/19/24 at 1848, For 1 dose hydrALAZINE (APRESOLINE) tablet 10 mg 10 mg, oral, 3 times daily PRN, systolic BP greater than:, 170, Starting on Mon04/24/24 at 0904 insulin glargine (LANTUS) injection 10 Units 10 Units, subcutaneous, Nightly, First dose (after last modification) on Mon05/02/24 at 2100, Notify provider: -If patient is currently or will become NPO -If TPN was or will be interrupted or discontinued -For approval to hold long acting insulin, Indications: type 2 diabetes mellitus Given 05/02/2024 8:53 PM EST 10 Units Right Lower Abdomen insulin glargine (LANTUS) injection 22 Units 22 Units, subcutaneous, Nightly, First dose on Mon04/19/24 at 2100, Notify provider: -If patient is currently or will become NPO -If TPN was or will be interrupted or discontinued -For approval to hold long acting insulin, Indications: type 2 diabetes mellitus Given 05/01/2024 8:29 PM EST 22 Units Left Lower Abdomen Given 04/30/2024 8:38 PM EST 22 Units Le ft Lower Abdomen Given 04/29/2024 9:00 PM EST 22 Units Ri ght Lower Abdomen insulin lispro injection 2-12 Units 2-12 Units, subcutaneous, 3 times daily before meals, First dose on Mon04/21/24 at 1130, Indication: Total Daily Dose (TDD) 40 - 80 units. Correction Scale: Moderate Dose Administer with meal and/or mealtime dose of insulin to correct high blood glucose If mealtime insulin dose not given (e.g. patient NPO or not eating), still administer correction factor for high blood glucose, Indications: type 2 diabetes mellitus Given 05/02/2024 5:08 PM EST 6 Units Right Upper Arm (Neena k) Given 05/02/2024 11:55 AM EST 2 Units L eft Lower Abdomen Given 05/01/2024 4:32 PM EST 2 Units Le ft Lower Abdomen insulin lispro injection 2-12 Units 2-12 Units, subcutaneous, 3 times daily before meals, First dose on Mon05/06/24 at 1130, Indication: Total Daily Dose (TDD) 40 - 80 units. Correction Scale: Moderate Dose Administer with meal and/or mealtime dose of insulin to correct high blood glucose If mealtime insulin dose not given (e.g. patient NPO or not eating), still administer correction factor for high blood glucose, Indications: type 2 diabetes mellitus Given 05/31/2024 8:05 AM EST 2 Units Left Upper Abdomen Given 05/30/2024 8:16 AM EST 2 Units Ri ght Lower Abdomen Given 05/29/2024 4:59 PM EST 2 Units Ri ght Lower Abdomen insulin lispro injection 3-18 Units 3-18 Units, subcutaneous, 4 times daily before meals and nightly, First dose (after last modification) on Mon04/19/24 at 2100, Indication: Total Daily Dose (TDD) GREATER than 80 units Correction Scale: High Dose Administer with meal and/or mealtime dose of insulin to correct high blood glucose If mealtime insulin dose not given (e.g. patient NPO or not eating), still administer correction factor for high blood glucose, Indications: type 2 diabetes mellitus Given 04/20/2024 8:43 PM EST 9 Units Left Upper Abdomen Given 04/20/2024 4:36 PM EST 3 Units Ri ght Upper Arm (Back) Given 04/20/2024 11:56 AM EST 3 Units R ight Upper Arm (Back) insulin lispro injection 5 Units 5 Units, subcutaneous, Once, On Mon04/24/24 at 2200, For 1 dose, Indications: hyperglycemia Given 04/24/2024 9:59 PM EST 5 Units Right Upper Arm (Back) lidocaine 4 % patch 1 patch 1 patch, Topical, Administer over 12 Hours, Daily, First dose on Mon05/30/24 at 0900, Apply to low back pain. Patch Applied 05/31/2024 8:06 AM EST 1 patch Other Patch Applied 05/30/2024 8:22 AM EST 1 patch Other lisinopriL (PRINIVIL,ZESTRIL) tablet 10 mg 10 mg, oral, Daily, First dose on Mon04/19/24 at 1915 Given 04/24/2024 8:35 AM EST 10 mg Given 04/23/2024 8:22 AM EST 10 mg Given 04/22/2024 9:15 AM EST 10 mg lisinopriL (PRINIVIL,ZESTRIL) tablet 20 mg 20 mg, oral, Daily, First dose (after last modification) on Mon04/25/24 at 0900 Given 05/01/2024 8:18 AM EST 20 mg Given 04/30/2024 8:28 AM EST 20 mg Given 04/29/2024 8:19 AM EST 20 mg magnesium hydroxide (MILK OF MAGNESIA) 400 mg/5 mL suspension 30 mL 30 mL, oral, Daily PRN, constipation, Starting on Mon04/19/24 at 1848 Given 04/23/2024 5:29 AM EST 30 mL magnesium oxide (MAG-OX) tablet 400 mg 400 mg, oral, Daily, First dose on Mon05/18/24 at 1100 Given 05/22/2024 8:16 AM EST 400 mg Given 05/21/2024 8:15 AM EST 400 mg Given 05/20/2024 8:34 AM EST 400 mg magnesium oxide (MAG-OX) tablet 400 mg 400 mg, oral, 2 times daily, First dose (after last modification) on Mon05/22/24 at 2100 Given 05/31/2024 8:06 AM EST 400 mg Given 05/30/2024 9:08 PM EST 400 mg Given 05/30/2024 8:15 AM EST 400 mg magnesium sulfate 2 gram/50 mL (4 %) IVPB 2 g 2 g, intravenous, at 25 mL/hr, Administer over 2 Hours, Once, On Mon05/17/24 at 0930, For 1 dose New Bag 05/17/2024 10:29 AM EST 2 g 25 mL/hr metFORMIN (GLUCOPHAGE) tablet 500 mg 500 mg, oral, 2 times daily with meals, First dose on Mon04/28/24 at 1700, Indications: type 2 diabetes mellitus Given 05/31/2024 8:06 AM EST 500 mg Given 05/30/2024 5:03 PM EST 500 mg Given 05/30/2024 8:15 AM EST 500 mg oxyCODONE (ROXICODONE) immediate release tablet 2.5 mg 2.5 mg, oral, Once as needed, moderate pain, severe pain, Starting on Mon05/06/24 at 0552, For 1 dose Given 05/06/2024 6:02 AM EST 2.5 mg senna (SENOKOT) tablet 17.2 mg 17.2 mg (2 tablet), oral, Nightly, First dose on Mon04/24/24 at 2100 Given 04/29/2024 9:01 PM EST 17.2 mg Given 04/28/2024 8:43 PM EST 17.2 mg Given 04/27/2024 8:54 PM EST 17.2 mg sodium chloride 0.9 % flush 3 mL 3 mL, intravenous, Every 8 hours, First dose on Mon05/20/24 at 0500 Given 05/20/2024 12:06 PM EST 3 mL Given 05/20/2024 5:54 AM EST 3 mL Ri ght Forearm traMADoL (ULTRAM) tablet 25 mg 25 mg, oral, Every 6 hours PRN, severe pain, Starting on Mon05/06/24 at 0845 Given 05/06/2024 8:32 PM EST 25 mg documented in this encounter Discontinued Medications Medication Sig Discontinue Reason Start Date End Da te insulin glargine (LANTUS) 100 unit/mL injectionIndications:t ype 2 diabetes mellitus Inject 22 Units under the skin at bedtime. Duplicate order 04/19/2024 04/19/2024 insulin lispro 100 unit/mL injection Inject 6-12 Units under the skin 3 (three) times a day before meals. -Administer within 15 minutes of a meal Duplicate order 04/19/2024 aspirin 81 mg EC tablet Take 1 tablet (81 mg total) by mouth 1 (one) time each day. 04/01/2024 05/29/2024 clopidogreL (Plavix) 75 mg tablet Take 1 tablet (75 mg total) by mouth 1 (one) time each day. 04/01/2024 05/29/2024 atorvastatin (LIPITOR) 80 mg tablet Take 1 tablet (80 mg total) by mouth at bedtime. Stop Taking at Discharge 04/01/2024 05/31/2024 lisinopriL (PRINIVIL,ZESTRIL) 10 mg tablet Take 1 tablet (10 mg total) by mouth 1 (one) time each day. Stop Taking at Discharge 06/14/2022 05/31/2024 documented as of this encounter Historical Medications * This list may reflect changes made after this encounter. Medication Sig Dispensed Refills Start Date End Date insulin lispro 100 unit/mL injection Inject 6-12 Units under the skin 3 (three) times a day before meals. -Administer within 15 minutes of a meal 04/19/2024 insulin glargine (LANTUS) 100 unit/mL injectionIndications:typ e 2 diabetes mellitus Inject 22 Units under the skin at bedtime. 04/19/2024 04/19/2024 lisinopriL (PRINIVIL,ZESTRIL) 10 mg tablet Take 1 tablet (10 mg total) by mouth 1 (one) time each day. 06/14/2022 05/31/2024 clopidogreL (Plavix) 75 mg tablet Take 1 tablet (75 mg total) by mouth 1 (one) time each day. 04/01/2024 05/29/2024 atorvastatin (LIPITOR) 80 mg tablet Take 1 tablet (80 mg total) by mouth at bedtime. 04/01/2024 05/31/2024 aspirin 81 mg EC tablet Take 1 tablet (81 mg total) by mouth 1 (one) time each day. 04/01/2024 05/29/2024 added in this encounter Active and Recently Administered Medications Times are shown in EST. Scheduled Medication Order 05/29/2024 05/30/2024 05/31/2024 amLODIPine (NORVASC) tablet 10 mg 10 mg, oral, Daily, First dose (after last modification) on Mon05/24/24 at 0900 0811 (Given - Provider: Josephine Maldonado RN) 0814 (Given - Provider: Josephine Maldonado RN) 0806 (Given - Provider: Josephine Maldonado RN) aspirin EC tablet 81 mg 81 mg, oral, Daily, First dose on 04/20/24 at 0900, Do not crush, chew, or split., Indications: cerebral thromboembolism prevention 0809 (Given - Provider: Josephine Maldonado RN) 0814 (Given - Provider: Josephine Maldonado RN) 0806 (Given - Provider: Josephine Maldonado RN) atorvastatin (LIPITOR) tablet 10 mg 10 mg, oral, Nightly, First dose on Mon05/24/24 at 2100 2050 (Given - Provider: Neto Luna RN) 2108 (Given - Provider: Catherine Medley RN) cholecalciferol (VITAMIN D-3) tablet 2,000 Units 2,000 Units, oral, Daily, First dose on Mon05/19/24 at 1045, 1000 units = 25 mcg of cholecalciferol (VITAMIN D3) 0809 (Given - Provider: Josephine Maldonado RN) 0815 (Given - Provider: Josephine Maldonado RN) 0806 (Given - Provider: Josephine Maldonado RN) clopidogreL (PLAVIX) tablet 75 mg 75 mg, oral, Daily, First dose on 04/20/24 at 0900, Indications: cerebral thromboembolism prevention 0809 (Given - Provider: Josephine Maldonado RN) 0815 (Given - Provider: Josephine Maldonado RN) 0806 (Given - Provider: Josephine Maldonado, DINH) cyanocobalamin (VITAMIN B-12) tablet 1,000 mcg 1,000 mcg, oral, Daily, First dose on Mon05/24/24 at 0900 0810 (Given - Provider: Josephine Maldonado RN) 0815 (Given - Provider: Josephine Maldonado RN) 0806 (Given - Provider: Josephine Maldonado RN) enoxaparin (LOVENOX) injection 40 mg 40 mg, subcutaneous, Every 24 hours scheduled, First dose on Mon05/12/24 at 1230, Indication: VTE/PE Prophylaxis 0809 (Given - Provider: Josephine Maldonado RN) 0816 (Given - Provider: Josephine Maldonado RN) 0805 (Given - Provider: Josephine Maldonado RN) escitalopram (LEXAPRO) tablet 5 mg 5 mg, oral, Daily, First dose on Mon05/24/24 at 1215 0810 (Given - Provider: Josephine Maldonado RN) 0814 (Given - Provider: Josephine Maldonado RN) 0806 (Given - Provider: Josephine Maldonado RN) glipiZIDE (GLUCOTROL) tablet 5 mg 5 mg, oral, Every morning before breakfast, First dose on Mon05/03/24 at 0700, Hold if NPO , Indications: type 2 diabetes mellitus 0809 (Given - Provider: Josephine Maldonado RN) 0815 (Given - Provider: Josephine Maldonado RN) 0806 (Given - Provider: Josephine Maldonado RN) insulin lispro injection 2-12 Units 2-12 Units, subcutaneous, 3 times daily before meals, First dose on Mon05/06/24 at 1130, Indication: Total Daily Dose (TDD) 40 - 80 units. Correction Scale: Moderate Dose Administer with meal and/or mealtime dose of insulin to correct high blood glucose If mealtime insulin dose not given (e.g. patient NPO or not eating), still administer correction factor for high blood glucose, Indications: type 2 diabetes mellitus 0809 (Given - Provider: Josephine Maldonado RN)1510 (Not Given - Provider: Josephine Maldonado RN - Reason: Patient not available)1659 (Given - Provider: Neto Luna RN) 0816 (Given - Provider: Josephine Maldonado RN)1117 (Not Given - Provider: Josephine Maldonado RN - Reason: Order parameters not met - Comment: poc 100)1658 (Not Given - Provider: Catherine Medley RN - Reason: Order parameters not met - Comment: POC 121) 0805 (Given - Provider: Josephine Maldonado RN)1116 (Not Given - Provider: Josephine Maldonado RN - Reason: Order parameters not met - Comment: poc 133) lidocaine 4 % patch 1 patch 1 patch, Topical, Administer over 12 Hours, Daily, First dose on Mon05/30/24 at 0900, Apply to low back pain. 0822 (Patch Applied - Provider: Josephine Maldonado RN - Comment: low back)2108 (Patch Removed - Provider: Catherine Medley RN) 0806 (Patch Applied - Provider: Josephine Maldonado RN - Comment: low back)1205 (Due: Patch Removed - Provider: Automatic Discharge Provider - Comment: Time automatically adjusted from order being discontinued) magnesium oxide (MAG-OX) tablet 400 mg 400 mg, oral, 2 times daily, First dose (after last modification) on Mon05/22/24 at 2100 0809 (Given - Provider: Josephine Maldonado RN)2049 (Given - Provider: Neto Luna RN) 0815 (Given - Provider: Josephine Maldonado RN)2108 (Given - Provider: Catherine Medley, DINH) 0806 (Given - Provider: Josephine Maldonado RN) metFORMIN (GLUCOPHAGE) tablet 500 mg 500 mg, oral, 2 times daily with meals, First dose on Mon04/28/24 at 1700, Indications: type 2 diabetes mellitus 0810 (Given - Provider: Josephine Maldonado RN)1700 (Given - Provider: Neto Luna RN) 0815 (Given - Provider: Josephine Maldonado RN)1703 (Given - Provider: Catherine Medley RN) 0806 (Given - Provider: Josephine Maldonado RN) PRN Medication Order 05/29/2024 05/30/2024 05/31/2024 acetaminophen (TYLENOL) tablet 650 mg 650 mg, oral, Every 6 hours PRN, mild pain, fever - temperature GREATER than 38 C (100.4 F), Starting on Mon04/19/24 at 1848 0816 (Given - Provider: Josephine Maldonado RN) aluminum-magnesium hydroxide-simethicone (MAALOX) 200-200-20 mg/5 mL suspension 30 mL 30 mL, oral, Every 4 hours PRN, heartburn, Starting on Mon04/19/24 at 1848 dextrose (D50W) 50% injection 12.5 g 12.5 g, intravenous, Every 15 min PRN, low blood sugar, moderate hypoglycemia *Patient is Unconscious, NPO, unable to swallow: BG 54 - 69 mg/dl*, Starting on Mon04/19/24 at 1848, For 1 dose dextrose (D50W) 50% injection 25 g 25 g, intravenous, Every 15 min PRN, severe hypoglycemia *Patient is Unconscious, NPO, unable to swallow: BG LESS than 54 mg/dL*, Starting on Mon04/19/24 at 1848 dextrose 15 gram/60 mL oral solution 15 g 15 g, oral, Every 15 min PRN, low blood sugar, hypoglycemia *Patient conscious AND able to drink and swallow safely*, Starting on Mon04/19/24 at 1848 dextrose 15 gram/60 mL oral solution 30 g 30 g, oral, Every 15 min PRN, low blood sugar, hypoglycemia *Patient conscious AND able to drink and swallow safely*, Starting on Mon04/19/24 at 1848 Glucagon HCl (rDNA) injection 1 mg 1 mg, intramuscular, Once as needed, low blood sugar, severe hypoglycemia, Starting on Mon04/19/24 at 1848, For 1 dose hydrALAZINE (APRESOLINE) tablet 10 mg 10 mg, oral, 3 times daily PRN, systolic BP greater than:, 170, Starting on Mon04/24/24 at 0904 magnesium hydroxide (MILK OF MAGNESIA) 400 mg/5 mL suspension 30 mL 30 mL, oral, Daily PRN, constipation, Starting on Mon04/19/24 at 1848 traMADoL (ULTRAM) tablet 25 mg 25 mg, oral, Every 6 hours PRN, severe pain, Starting on Mon05/06/24 at 0845 documented in this encounter Orders Medications Ordered That Jayme ht Not Have Been Administered Count Last Ordered Date First Ordered Date hydrALAZINE (APRESOLINE) tablet 10 mg 1 03/2024 dextrose (D50W) 50% injection 12.5 g 1 10/2023 dextrose (D50W) 50% injection 25 g 1 2023 dextrose 15 gram/60 mL oral solution 15 g 1 04/19/2024 dextrose 15 gram/60 mL oral solution 30 g 1 04/19/2024 Glucagon HCl (rDNA) injection 1 mg 1 2023 insulin lispro injection 3-18 Units 1 04/19 Lab Orders Without Results Count Last Ordered D ate First Ordered Date POCT GLUCOSE, BLOOD 164 05/31/2024 04/19/20 24 Consult Count Last Ordered Date First Orde red Date IP CONSULT TO NUTRITION SERVICES 1 04/19/20 24 Admission Count Last Ordered Date First Orde red Date ADMIT TO INPATIENT REHAB 1 04/19/2024 Discharge Count Last Ordered Date First Orde red Date DISCHARGE PATIENT 1 05/31/2024 documented in this encounter Additional Health Concerns Infection Onset Date Last Indicated Resolved Time Respiratory Rule-Out 05/30/2024 05/30/2024 025 12:07 PM EST COVID-19 Rule-Out 05/30/2024 05/30/2024 05/30/2024 12:07 PM EST Assessment Noted Time PHQ-9 Depression Total Score: 0 05/30/19 25 2:18 PM EST documented as of this encounter Care Teams [employer] 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
[2024-06-11 08:34] LABS: HBS Num1 0.96 mIU/mL (0-7.99); HBc Num1 0.14 S/CO (0.00-0.79); HBsAGNum1 0.36 S/CO (0.00-0.99); HIV AB/AG Nonreactive (Nonreactive); HIV Num 1 0.04 S/CO (0.00-0.99); Hepatitis B Core Antibody Nonreactive (Nonreactive); Hepatitis B Surface Antigen Negative (Negative); ~Hepatitis B Surface Antibody NONREACTIVE (Nonreactive)
[2024-06-12 17:38] LABS: RPR Rapid Plasma Reagin NON-REACTIVE (NON-REACTIVE)
[2024-06-12 19:38] LABS: HCV Log PCR <1.18 NOT DETECTED Log IU/mL (NOT DETECTED); HepC Viral Load <15 NOT DETECTED IU/mL (NOT DETECTED)
== END 2024-06-10 11:54 | disposition home or self-care (01) ==
LOC: HO.CHCLDS 11:53
PROVIDERS: Visit Provider Registered Nurse
DX: Z00.00 Encounter for general adult medical examination without abnormal findings (principal)
CPT/HCPCS: 36415; 80053; 80061; 82306; 82607; 82746; 83735; 84443; 85025; 86592; 86704; 86706; 87340; 87389; 87522

== ENCOUNTER 2024-06-12 16:15 | Outpatient (REF) | payer MEDICAID, SELFPAY ==
--- OUTSIDE RECORDS SUMMARY | 2024-06-12 17:48 | XMS_ITS | Encounter Summary ---
Author Organization [employer] Address [address] [facility] [place] [address] Care Team Providers Care Printing Assistant Name Role Phone Erlinda Hernandez RIANA Primary Care Provider [phone] Reason for Visit * Reason Onset Date Comments HDF/HUC appt 06/10/2024 Encounter Details Date Type Department Care Team (Late Contact Info) Description 06/10/2024 Telephone [facility] [address] [place] [address] Julieta Sullivan, DINH [address] [place] [address] HDF/HUC appt Social History Tobacco Use Types Packs/Day [...] Description 06/24/2024 9:00 AM EST Office Visit [facility] ADULT DENTAL [address] [place] [address] Rocco-Leona Francisco, DDS [address] [place] [address] 07/15/2024 11:15 AM EST Office Visit [facility] [address] [place] [address] Erlinda Hernandez FNP [address] [place] [address] documented as of this encounter Visit Diagnoses Not on filedocumented in this encounter Care Teams Printing Assistant Relationship Specialty Start Date End Date Erlinda Hernandez FNP [address] [place] [address] PCP - General Family Medicine 06/10/24 documented as of this encounter
--- OUTSIDE RECORDS SUMMARY | 2024-06-12 17:48 | XMS_ITS | Continuity of Care Document ---
Author Organization [facility] Address [address] [place] [address] Care Team Providers Care Workforce Management Coordinator Name Role Phone Nurse, Nurse Unavailable Unavailable Allergies, Adverse Reactions, Alerts Substance Reaction Status Criticality No Known Allergies Active No Inform ation Medications Medication Instructions Dosage Effective Dates (start - stop) Status Comments metformin 1,000 mg tablet take 1 tablet by oral route 2 times every day with morning and evening meals 1000 MG - Active atorvastatin 10 mg tablet take 1 tablet by oral route every day for cholesterol 10 MG - Active lisinopril 10 mg tablet take 1 tablet by oral route every day 10 MG - Active Procedures Procedure Date Mammo Refer Done / Elsewhere GLYCOHEMOBLOBIN A1C REFERRAL LAB 2022 TSH CBC W/AUTO DIFF WBC LIPID PANEL COMPREHEN METABOLIC PANEL AMNT PAIN NOTED; PAIN PRSNT MED LIST DOCD IN RCRD DEPRESSION SCREENING TOBACCO USE, SMOKING, ASSESS TOBACCO NON-USER PT SCRND UNHLTHY OH USE SYST BP GE 130 - 139MM HG DIAST BP 80-89 MM HG SBIRT SCREEN NEGATIVE FEMAL EDUC MAMMO PAP CBC W/AUTO DIFF WBC Routine Venipuncture Temp Fix Fortino-31-202 3 COMPREHEN METABOLIC PANEL GLYCATED HEMOGLOBIN A1C IN HOUSE 2022 LIPID PANEL TSH HEMOGLOBIN A1C LEVEL > 9.0% OFFICE/OUTPATIENT VISIT, NEW Advance Directives Directive Yes / No Effective Date File Name No Information Encounters Encounter Description Practice Location Reason(s) For Visit Diagnoses Date Provider Providers Copied on Encounter [address], [phone] , [facility] No Information 3 Nurse Nurse. . [address], [id number] , [facility] [place] Encounter for other screening for Ca of breast 3 Julieta Bassett. [address] , [place], [place], [id number], [place]. tel:[phone], [id number] , [facility] [place] No Information 3 Julieta Bassett. [address] , [place], [place], [id number], [place]. tel:[phone], [id number] , [facility] [place] No Information 3 Julieta Bassett. [address] , [place], [place], [id number], [place]. tel:[phone], [id number] , [facility] [place] No Information 3 Julieta Bassett. [address] , [place], [place], [id number], [place]. tel:[phone] Referring Provider: Serjio Ambriz, [address] , [place], [address]. tel:[phone] OFFICE/OUTPA TIENT VISIT, [facility], [address] [place] [address], [phone] , [place] [facility] [place] diabetes (chief complaint) est care. New patient (chief complaint) Body mass index [BMI] 28.0-28.9, adultDietary counseling and surveillanceExe rcise counselingType 2 diabetes mellitus without complicationsEs sential (primary) hypertensionScr eening for cervical cancerFamily hx of breast Ca Julieta Bassett. [address] , [place], [place], [id number], [place]. tel:[phone] Referring Provider: Serjio Ambriz, [address] , [place], [address]. tel:[phone] Family History Family Member Type Diagnosis Age At Onset Paternal Grandmother Problem (finding) Alzheimer's dis ease Father Problem (finding) Alzheimer's disease Paternal Grandmother Problem (finding) Renal disease Father Problem (finding) Diabetes mellitus Mother Problem (finding) Hypertension Maternal Grandmother Problem (finding) Diabetes mellit us Brother Problem (finding) Hypertension Brother Problem (finding) Diabetes mellitus Paternal Grandmother Problem (finding) Diabetes mellit Maternal Grandmother Problem (finding) Hypertension Paternal Grandmother Problem (finding) Arthritis Paternal Grandmother Problem (finding) Hypertension Mother Problem (finding) Alzheimer's disease Payers Payer name Insurance type Covered constitution party ID Authoriza tion(s) Slide E 09 Social History Type Description Quantity Date Captured Comments Alcohol Use Details Unknown Caffeine Use Details Unknown Tobacco Use Status No Information Smoking Status No Information Sex Female Chief Complaint And Reason For Visit No Information Reason For Referral Reason For Referral No Information Plan Of Treatment Date Type Action Status Goal ASCVD 10 year risk. Due on O due Goal Foot exam. Due on due Goal Dental exam. Due on 023 due Goal Urine microalbumin. Due on O due Goal GFR. Due on due Goal Dilated eye exam. Due on Feb due Goal Hep B (). Due on due Goal Hemoglobin A1C. Due on due Goal Unhealthy drug use screening . Due on due Goal CT-Colonography. Due on due Goal FIT-DNA. Due on due Goal Pap/HPV testing. Due on due Goal FIT. Due on due Goal HPV. Due on due Goal Colonoscopy. Due on due Goal Td vaccine. Due on due Goal FOBT. Due on due Goal Tdap. Due on due Goal Hepatitis C screening. Due o n due Goal Lipid panel. Due on 024 due Goal Depression screening. Due on due Goal Influenza vaccine. Due on due Goal Pneumococcal vaccine. Due on due Goal Urinalysis. Due on due Goal ECG. Due on due Goal Dilated eye exam. Due on Oct due Goal Dental exam. Due on due Goal Urinalysis. Due on due Goal ASCVD 10 year risk. Due on due Goal Foot exam. Due on due Goal Hemoglobin A1C. Due on due Goal GFR. Due on due Goal Urine microalbumin. Due on due Goal Hep B (). Due on due Goal Hepatitis C screening. Due o n due Goal Tdap. Due on due Goal Unhealthy drug use screening . Due on due Goal Pap/HPV testing. Due on due Goal HPV. Due on due Goal Td vaccine. Due on due Goal Pneumococcal vaccine. Due on due Goal Lipid panel. Due on due Goal Depression screening. Due on due Goal Influenza vaccine. Due on due Goal ECG. Due on due Goal ECG. Due on due Goal Hep B (). Due on due Goal Hemoglobin A1C. Due on due Goal Urine microalbumin. Due on due Goal Dilated eye exam. Due on Jun due Goal Foot exam. Due on due Goal Dental exam. Due on due Goal GFR. Due on due Goal ASCVD 10 year risk. Due on due Goal Td vaccine. Due on due Goal HPV. Due on due Goal Pap/HPV testing. Due on due Goal Tdap. Due on due Goal Unhealthy drug use screening . Due on due Goal Hepatitis C screening. Due o n due Goal Lipid panel. Due on 024 due Goal Pneumococcal vaccine. Due on due Goal Influenza vaccine. Due on due Goal Depression screening. Due on due Goal Urinalysis. Due on due Goal Foot exam. Due on due Goal Dilated eye exam. Due on Jun due Goal Hemoglobin A1C. Due on due Goal Hep B (). Due on due Goal ASCVD 10 year risk. Due on due Goal Dental exam. Due on due Goal GFR. Due on due Goal Urine microalbumin. Due on due Goal HPV. Due on due Goal Pap/HPV testing. Due on due Goal Hepatitis C screening. Due o n due Goal Tdap. Due on due Goal Td vaccine. Due on due Goal Unhealthy drug use screening . Due on due Goal Influenza vaccine. Due on due Goal Lipid panel. Due on due Goal Depression screening. Due on due Goal Pneumococcal vaccine. Due on due Goal Urinalysis. Due on due Goal ECG. Due on due Goal Foot exam. Due on due Goal Dilated eye exam. Due on May due Goal Hemoglobin A1C. Due on due Goal Urinalysis. Due on due Goal Hep B (). Due on due Goal ASCVD 10 year risk. Due on due Goal Dental exam. Due on due Goal GFR. Due on due Goal Urine microalbumin. Due on due Goal ECG. Due on due Goal Influenza vaccine. Due on due Goal HPV. Due on due Goal Lipid panel. Due on due Goal Pap/HPV testing. Due on due Goal Hepatitis C screening. Due o n due Goal Depression screening. Due on due Goal Tdap. Due on due Goal Td vaccine. Due on 23 due Goal Unhealthy drug use screening . Due on due Goal Pneumococcal vaccine. Due on due Goal Lifestyle education hannain g diet completed Referral Referred To: [facility] [address] [place], [phone] Ordered: Referrals: Diagnostic Radiology. [facility]. Diagnostic testing ordered Referral Referred To: Dr Johnathon Das [address] [place], [phone] Ordered: Referrals: Obstetrics and Gynecology. Dr Johnathon Das. Evaluate and treat ordered History Of Present Illness Encounter Date Complaint History Of Prese nt Illness diabetes Managing with: O ral medications. est care. New patient Functional Status Date Functional Assessmen t No Information Instructions Date Instruction Additional Infor milagros Lifestyle changes en couraged like diabetic diet, weight loss and exercise Related to Type 2 diabetes mellitus without complications Lifestyle changes en couraged like low sodium diet, weight loss and exercise Related to Essential (primary) hypertension Giving encouragement to exercise Related to Body mass index [BMI] 28.0-28.9, adult Lifestyle education regarding di et Related to Body mass index [BMI] 28.0-28.9, adult Assessments Type Assessment Date No Information Patient Care Teams Name Effective Dates (start - stop) Status Members No Information
--- OUTSIDE RECORDS SUMMARY | 2024-06-12 17:48 | XMS_ITS | Encounter Summary ---
Author Organization [employer] [facility] Address [address] [place] [address] Care Team Providers Care Programs Director Name Role Phone Erlinda Hernandez Primary Care Provider [phone] Encounter Details Date Type Department Care Team [...] Description 06/24/2024 9:00 AM EST Office Visit [facility] [address] [place] [address] Valiente-Francisco, Leona, DDS [address] [place] [address] 07/15/2024 11:15 AM EST Office Visit [facility] MED & PEDS [address] [place] [address] Erlinda Hernandez FNP [address] [place] [address] documented as of this encounter Visit Diagnoses Not on filedocumented in this encounter Care Teams Programs Director Relationship Specialty Start Date End Date Erlinda Hernandez FNP [address] [place] [address] PCP - General Family Medicine 06/10/24 documented as of this encounter
--- OUTSIDE RECORDS SUMMARY | 2024-06-12 17:48 | XMS_ITS | Encounter Summary ---
Author Organization [facility] Address [address] [place] [address] Care Team Providers Care Social Media Manager Name Role Phone Sherin Garcia MD Primary Care Provider [phone] Encounter Details Date Type Department Care Team ([facility] st Contact Info) Description 05/20/2024 Plan of Care Documentation [facility] [address] [place] [id number] Social History Tobacco Use Types Packs/Day Years [...] Value Date Recorded Sex Assigned at Female 06/11/2024 3:23 PM EST Gender Identity Female 06/11/2024 3:23 PM EST Sexual Orientation Choose not to disclose 2024 3:23 PM EST Job Start Date Occupation Industry Not on [...] *No Product type* / Admitting Diagnosis: Stroke ([facility]) [I63.9] Admit Date/Time: 04/19/2024 5:41 PM Primary Rehab (Etiologic) Diagnosis: Patient Active Problem List Diagnosis HTN (hypertension) DM (diabetes mellitus) ([facility]) CVA (cerebral vascular accident) ([facility]) Team Discussion UPDATES: Physician: Stroke, decline, repeat [...] without AFO. Alejandro 05/27 for stair training. SENIOR SALES COMPENSATION ANALYST: Mild attention, memory deficits. Min A. SW: [...] Health physical therapy, occupational therapy, speech therapy, health social work professor, and nursing daily Equipment Needed: walker, wheelchair, [...] CARE Score - Sit to Stand: 4 Chair/[id number] Transfer Assistance Needed: Incidental touching, Verbal cues, Supervision Physical Assistance Level: 25% or less Comment: L knee buckling CARE Score - Chair/Gpl-jj-Dpytg Transfer: 4 Car Transfer Reason if not [...] oriented to date, place, and person Communication/Sensory: Non-Georgian patient/unable to speak/slurred speech, Visual (Glasses)/hearing deficit [...] Comments: Pt reporting completion of MBSS at [facility] prior to admission to rehab. [facility]bt[facility] from [facility] and reviewed report. MBSS report recommending [...] article w/ 85-100% inteiligiblity w/ aid from associate professor of psychology. Pt reported that she feels like her [...] able to describe pictures w/ 70-70% inteliligiblity, associate professor of psychology required repetition in 4/7 trials. Pt engaged in a conversation about herspeech and reported that she feels like her speech is getting better but it is not back at baseline. Will continue to target in future sessions. SENIOR SALES COMPENSATION ANALYST Assessment Results: Cognitive impairments Prognosis: Good Barriers to Discharge: (cognitive impairments, language barrier) Evaluation/Treatment Tolerance: Patient tolerated treatment well Plan Treatment/Interventions: Cognitive linguistic functioning SENIOR SALES COMPENSATION ANALYST Plan: Skilled SENIOR SALES COMPENSATION ANALYST Discharge Recommendations: Outpatient SENIOR SALES COMPENSATION ANALYST Diet Recommendations: Regular solids/thin liquids Barriers to Discharge: (cognitive impairments, language barrier) Office Clerk Assistant's Assessment Adult diet [facility]; Cardiac, Diabetic; 60 gm carb/Meal; Cardiac [...] medicationsat home as they were . Appetite CNC MAINTENANCE MECHANIC: Good Intake CNC MAINTENANCE MECHANIC: Stable Nutrition Diagnosis Status: Improvement Diagnosis: Altered Nutrition-Related Lab Values Etiology: Endocrine dysfunction Symptoms: POCs 92-280, A1C 12 Nutrition Interventions: Diet Order, Nutrition Education Nutrition Education: Low Sodium, Consistent Carb Monitoring/Evaluation: Food Intake, Fluid/Beverage Intake, Weight, Diet Order, Food and Nutrition Knowledge/Skills Physician Attestation: Neida Rubin, , have led the team conference and agree with the results, findings, and decisions made by the interdisciplinary team. documented in this encounter Plan of Treatment Upcoming Encounters Date Type Department Care Team (Late st Contact Info) Description 06/26/2024 9:30 AM EST Appointment [facility] at [address] [phone] documented as of this encounter Visit Diagnoses Not on filedocumented in this encounter Additional Health Concerns Assessment Noted Time PHQ-9 Depression Total Score: 1 04/22/20 24 8:26 AM EST documented as of this encounter Care Teams Social Media Manager Relationship Specialty Start Date End Date Sherin Garcia MD [address] [place] [id number] PCP - General Family Medicine 05/09/24 documented as of this encounter
--- OUTSIDE RECORDS SUMMARY | 2024-06-12 17:48 | XMS_ITS | Encounter Summary ---
Author Organization [id number] Address [address] 7 [place] [address] Care Team Providers Care Customer Service Voice Name Role Phone Erlinda Hernandez Primary Care Provider [phone] Reason for Referral * Consultation (Routine) - Closed Specialty Diagnoses / Procedures Referred By Contac t Referred To Contact Neurology Diagnoses Cerebrovascular accident (CVA), unspecified mechanism (CMS/HCC) Erlinda Hernandez FNP [address] [place] [address] Phone: tel: fax: [facility] Referral ID Status Reason Start Date Expiration Date V isits Requested Visits Authorized [id number] Closed Specialty Services Required 06/10/2024 06/10/2025 1 1 * Consultation (Routine) - Closed Specialty Diagnoses / Procedures Referred By Contac t Referred To Contact Endocrinology Diagnoses Type 2 diabetes mellitus without complication, without long-term current use of insulin (CMS/HCC) Erlinda Hernandez FNP [address] [place] [address] Phone: tel: fax: [facility] Referral ID Status Reason Start Date Expiration Date V isits Requested Visits Authorized [id number] Closed Specialty Services Required 06/10/2024 06/10/2025 1 1 * Consultation (Routine) - Authorized Specialty Diagnoses / Procedures Referred By Contac t Referred To Contact Optometry Diagnoses Type 2 diabetes mellitus without complication, without long-term current use of insulin (CMS/HCC) Erlinda Hernandez FNP [address] [place] [address] Phone: tel: fax: [facility] [address] [place] [address] Phone: tel: fax: Referral ID Status Reason Start Date Expiration Date Visits Requested Visits Authorized [id number] Authorized Consult and Treat 06/10/2024 06/10/2025 1 1 * Imaging (Routine) - Closed Specialty Diagnoses / Procedures Referred By Contnick t Referred To Contact Radiology Diagnoses Encounter for screening mammogram for malignant neoplasm of breast Procedures BI Mammogram Screening Tomosynthesis Bilateral Erlinda Hernandez FNP [address] [place] [address] Phone: tel: fax: [address] Phone: tel: fax: Referral ID Status Reason Start Date Expiration Date Visits Re quested Visits Authorized [id number] Closed 06/10/2024 06/10/2025 1 1 Encounter Details Date Type Department Care Team (Latest Contact Info) Description 06/10/2024 10:30 AM EST Office Visit [facility] [address] [place] [address] Erlinda Hernandez FNP [address] [place] [address] Cerebrovascular accident (CVA), unspecified mechanism (CMS/HCC) (Primary [...] AM EST List of Local Eye Providers [facility] [address] [place], [place] [phone] Ages: 2 years old and above *Currently booking out 8-12 months [facility] [address] [place] [address] [phone] Ages: 3 years and above *Currently only accepting new patients with diabetes or eye-related medical conditions [facility] - Dr. Martins [address] [place] [address] Ages: 6 years old and above [facility] [address] [phone] *Will fill the eye glasses prescription only (no exams or evaluations). Accepts [facility] Dr. Ehsan Msesina [address] [place], [place] Ages: 15 years old and below [facility] [address] [place] [address] 3rd [place] [address] *Requires referral from PCP, does accept [facility] [place] [facility] [address] [place] [address] Ages: 7 years and above *Dr. Argueta Speaks Lao. Accepts [facility] [place] [facility] [address] [place] [address] Ages: 7 years and above *Dr. Argueta Speaks Lao. Accepts [facility] [address] [place] [address] Ages: 5 years and above [facility] [address] [place], [place] [phone] *Eye evaluations, but does not dispense glasses [facility] [address] [place] [address] Ages: 6 years and above [facility] [address] [place] [address] [facility] [address] [place] [address] [facility] [address] [place], [place] [phone] [facility] [address] [place] [address] [phone] Ages: 2 years and above *Does not accept [facility] Insurance [facility] [address] [place] [address] Ages: 5 years and above *Not currently accepting new patients documented in this encounter Progress Notes * RIANA You - 06/10/2024 10:30 AM EST Subjective: Amalia English is a 49 y.o. female (New Patient) with PMH hypertension, T2DM, CVA x 2, who presents to the office with boyfriend for a Hospital Discharge Follow Up. Pharmacy Consult Note Reviewed: [facility] [place]03/26/24-04/01/24): Patient with PMH including uncontrolled HTN and T2DM presented for evaluation of dizziness/vertigo,dysarthria and right arm weakness with unsteady gait. MRI of brain demonstrated small acute infarctin right dorsal srinivas. Started on aspirin, clopidogrel and statin. Patient discharged home with outpatient PT and to follow up with stroke clinic. [facility] (04/15/24-04/19/24) Patient presented for evaluation of local [...] follow up with endocrinology. Discharged to rehab. [facility] Rehab (04/19/24-05/31/24) Patient presented for rehab following [...] Also with VNA services. Information on obtaining [employer] eval provided. Right hand dominant. Left arm ROM and strength improving per pt. T2DM: FBG readings in the 90s-110s, max reading 300s at home although after sugary beverage. Has been consistent with metformin and glipizide. Upcoming appt scheduled with [facility]. Denies episode of hypoglycemia. Hypertension: home BP readings in the 140s/80s. Denies any chest pain, SOB, palpitations, or swelling of lower extremities. PMH: reports hx of spina bifida, chronic back pain PSH: cholecystectomy Social History: - Lives in 4th floor apartment, no elevator - Assistance from boyfriend - Moved from [place] to [place] around 2023 Review of Systems Constitutional: Negative [...] This Visit Nervous CVA (cerebral vascular accident) ([facility]) - Primary Overview CVA 03/26/24 - [facility] Admission. CVA Apr 2024 - [facility] Admission. MRI brain demonstrated acute-subacute right pontine [...] mellitus, without long-term current use of insulin ([facility]) Overview Lab Results Component Value Date HGBA1C 7.3 (A) 06/10/2024 Current Assessment & Plan - A1c much improved from hospitalization - Follow up scheduled with [facility] Endo as scheduled - Given specialist f/up and improvement in BG control, no med adjustments made today - Cont metformin 500mg BID and glipizide 5mg daily Relevant Medications atorvastatin (Lipitor) 20 MG tablet Other Relevant Orders POCT Glucose (Completed) POCT HGB A1C (Completed) Referral to [facility] Referral to Endocrinology Other [...] mellitus, without long-term current use of insulin ([facility]) - A1c much improved from hospitalization - Follow up scheduled with [facility] Endo as scheduled - Given specialist f/up [...] EST Associated Problem(s): CVA (cerebral vascular accident) (CMS/[facility]) Med Regimen: - aspirin 81mg daily - clopidogrel 75mg daily (encouraged to discuss duration with Neurology) - Atorvastatin increased from 10mg to 20mg (previously unable to tolerate 80mg nightly) documented in this encounter Plan of Treatment Upcoming Encounters Date Type Department Care Team (Late st Contact Info) Description 06/24/2024 9:00 AM EST Office Visit [facility] [address] [place] [address] Valiente-Francisco, Leona, DDS [address] [place] [address] 07/15/2024 11:15 AM EST Office Visit [facility] [address] [place] [address] Erlinda Hernandez FNP [address] [place] [address] Pending Results Name Type Priority Associated Diagnoses Date /Time RPR (Monitor) with Reflex to??Titer Lab Routine Healthcare maintenance 06/10/2024 11:59 AM EST Scheduled Orders Name Type Priority Associated Diagnoses [...] Priority Associated Diagnoses Order Schedule Referral to [facility] Outpatient Referral Routine Type [...] Routine 06/10/2024 11:59 AM EST Healthcare maintenance HEPATITIS B SURFACE ANTIGEN, EIA Routine 06/10/2024 11:59 AM EST Healthcare maintenance HEPATITIS B CORE AB TOTAL Routine 06/10/2024 11:59 AM EST Healthcare maintenance RPR (MONITOR) W/REFL TITER Routine 06/10/2024 11:59 AM EST Healthcare maintenance HIV 1/2 ANTIGEN/ANTIBODY, FOURTH GENERATION W/RFL Routine 06/10/2024 11:59 AM EST Healthcare maintenance HEPATITIS B SURFACE ANTIBODY, QUALITATIVE Routine 06/10/2024 11:59 AM EST Healthcare maintenance [...] without long-term current use of insulin (CMS/HCC) documented in this encounter Results * Hepatitis B surface antigen, EIA (06/10/2024 11:59 AM EST) Pathologist [facility] Hepatitis B Surface Ag Negative Negative [facility] Blood Venous blood specimen / Unknown 06/10/2024 11:59 AM EST 06/10/2024 2:21 PM EST Erlinda Hernandez [facility] BLOOD ORDERABLES Final Res ult Performing Organization Address [facility]/ZIP Co de Phone Number [facility] [address] [place] [phone] * Hepatitis B Surface Antibody, Qualitative (06/10/2024 11:59 AM EST) ~Hepatitis B Surface Antibody NONREACTIVE Nonreactive [facility] Comment:Nonreactive: < 8.00 mIU/mL Blood Venous blood specimen / Unknown 06/10/2024 11:59 AM EST 06/10/2024 2:21 PM EST Erlinda Hernandez [employer] LAB BLOOD ORDERABLES Final Res ult Performing Organization Address City/[facility]/ZIP Co de Phone Number [facility] [address] [place] [phone] * Hepatitis B Core Antibody, Total (06/10/2024 11:59 AM EST) Hepatitis B Core Antibody Nonreactive Nonreactive [facility] Blood Venous blood specimen / Unknown 06/10/2024 11:59 AM EST 06/10/2024 2:21 PM EST Erlinda Hernandez [facility] BLOOD ORDERABLES Final Res ult Performing Organization Address [facility] Co de Phone Number [facility] [address] [place] [phone] * Vitamin B12/Folate, Serum Panel (06/10/2024 11:59 AM EST) Pathologist [facility] Vitamin B12 839 200 - 900 pg/mL [facility] Comment:NORMAL 200-900 PG/ML INDETERMINATE 160-199 PG/ML DEFICIENT < 160 PG/ML Folate 9.2 > or = 4.0 ng/mL [facility] Comment:Reference Values:> o r = 4.0 ng/mL< 4.0 ng/mL suggests folate deficiency Methotrexate, aminopterin and folinic acid(leucovorin) are chemotherapeutic agents whose molecularstructures are similar to folate; therefore, the Architectfolate assay cannot be used for patients using these drugs. Blood Venous blood specimen / Unknown 06/10/2024 11:59 AM EST 06/10/2024 2:21 PM EST Erlinda Hernandez [facility] BLOOD ORDERABLES Final Res ult Performing Organization Address [facility] Co de Phone Number [facility] [address] [place] [phone] * (ABNORMAL) Vitamin D, 25-Hydroxy, Total, Immunoassay (06/10/2024 11:59 AM EST) Vitamin D 25-OH Total 27.6(L) >30 ng/mL [facility] Comment:Health Based Referen ce Values*< 20 ng/mL Dvhrdfobl49-37 ng/mL Insufficient> 30 ng/mL Sufficient*Eric SANABRIA. N [...] EST 06/10/2024 2:21 PM EST Erlinda Hernandez [facility] BLOOD ORDERABLES Final Res ult Performing Organization Address [facility] Co de Phone Number [facility] [address] [place] [phone] * Magnesium (06/10/2024 11:59 AM EST) Magnesium 2.1 1.6 - 2.6 mg/dL [facility] Blood Venous blood specimen / Unknown 06/10/2024 11:59 AM EST 06/10/2024 2:21 PM EST Erlinda Hernandez [facility] BLOOD ORDERABLES Final Res ult Performing Organization Address [facility] de Phone Number [facility] [address] [place] [phone] * HIV-1/2 Antigen and Antibodies, Fourth Generation, with Reflexes (06/10/2024 11:59 AM EST) HIV AB/AG Nonreactive Nonreactive [facility] Comment:HIV-1 p24 Ag and/or HIV-1/HIV-2 Ab not detected.A test result that is nonreactive does not exclude thepossibility of exposure to or infection with HIV-1 and/orHIV-2. Nonreactive results in this assay for individualswith prior exposure to HIV-1 and/or HIV-2 may be due toantigen and antibody levels that are below the limit ofdetection of this assay.The [employer] HIV Ag/Ab Combo assay result andsupplemental assay results should be interpreted inconjunction with the patient's clinical presentation,history and other laboratory results. If the results areinconsistent with clinical evidence, additional testing issuggested to confirm the result. Blood Venous blood specimen / Unknown 06/10/2024 11:59 AM EST 06/10/2024 2:21 PM EST us Erlinda Hernandez [employer] LAB BLOOD ORDERABLES Final Res ult [facility] [address] [place] [phone] * (ABNORMAL) CBC auto differential (06/10/2024 11:59 AM EST) White Blood Count 10.1 4.8 - 10.8 X10*3/uL [facility] Red Blood Count 4.60 4.20 - 5.50 X10*6/uL [facility] Hemoglobin 13.4 12.0 - 16.0 g/dl [facility] Hematocrit 40.0 37.0 - 47.0 % [facility] Mean Corpuscular Volume 87.0 80.0 - 98.0 fL [facility] Mean Corpuscular Hemoglobin 29.1 27.0 - 33.0 pg [facility] Mean Corpuscular HGB Conc 33.5 31.0 - 35.0 g/dl [facility] Red Cell Distribution Width 13.1 11.0 - 16.0 % [facility] Platelet Count 401(H) 160 - 400 X10*3/uL [facility] Mean Platelet Volume 11.3 9.4 - 12.3 fL [facility] Neutrophils Percent Auto 81.7(H) 45 - 73 % [facility] Imm Gran Pct Auto 0.3 0.0 - 0.4 % [facility] Lymphocytes Percent Auto 11.2(L) 20 - 40 % [facility] Monocytes Percent Auto 5.7 2 - 11 % [facility] Eosinophils Percent Auto 0.9 0 - 4 % [facility] Basophils Percent Auto 0.2 0 - 2 % [facility] NRBC Pct Auto 0.0 0.0 - 0.2 /100WBC [facility] Neutrophils Absolute Auto 8.3 2.0 - 8.3 x10*3/uL [facility] Imm Gran Abs Auto 0.03 0.00 - 0.03 X10*3/uL [facility] Lymphocytes Absolute Auto 1.1(L) 1.2 - 4.9 X10*3/uL [facility] Monocytes Absolute Auto 0.6 0.1 - 1.2 X10*3/uL [facility] Eosinophils Absolute Auto 0.1 0.0 - 0.4 X10*3/uL [facility] Basophils Absolute Auto 0.0 0.0 - 0.2 X10*3/uL [facility] NRBC Abs Auto 0.000 0.0 - 0.012 X10*3/uL [facility] Blood Venous blood specimen / Unknown 06/10/2024 11:59 AM EST 06/10/2024 2:21 PM EST us Erlinda Hernandez [employer] LAB BLOOD ORDERABLES Final Res ult [facility] [address] [place] [phone] * (ABNORMAL) Comprehensive Metabolic Panel (06/10/2024 11:59 AM EST) Sodium 140 135 - 145 mmol/L [facility] Potassium 4.1 3.3 - 5.1 mmol/L [facility] Chloride 108 96 - 108 mmol/L [facility] Carbon Dioxide 21(L) 22 - 29 mmol/L [facility] Anion Gap 15 12 - 20 [facility] Urea Nitrogen (BUN) 16 9 - 16 mg/dL [facility] Creatinine, Serum 0.65 0.5 - 1.4 mg/dL [facility] Estimated Glomerular Filt Rate >60 [facility] Comment:Chronic Kidney Disea se: Estimated GFR < 60 mL/min/1.26j0Srkwir Kidney Disease: Estimated GFR < 15 mL/min/1.73m2 Glucose 78 60 - 115 mg/dL [facility] Calcium 9.6 8.4 - 10.2 mg/dL [facility] Bilirubin, Total 0.3 0.0 - 1.0 mg/dL [facility] Aspartate Amino Transferase 23 5 - 31 U/L [facility] Alanine Aminotransferase 21 0 - 31 U/L [facility] Total Protein 7.8 6.5 - 8.0 g/dL [facility] Albumin Level 4.0 3.5 - 5.0 g/dL [facility] Alkaline Phosphatase 73 39 - 117 U/L [facility] Blood Venous blood specimen / Unknown 06/10/2024 11:59 AM EST 06/10/2024 2:21 PM EST Erlinda Dominiquelukasz [employer] LAB BLOOD ORDERABLES Final Res ult Performing Organization Address City/[facility]/ZIP Co de Phone Number [facility] [address] [place] [phone] * TSH with Reflex to Free T4 (06/10/2024 11:59 AM EST) TSH reflex Free T4 1.16 0.32 - 4.0 uIU/mL [facility] Blood 06/10/2024 11:5 9 AM EST 06/10/2024 2:21 PM EST Erlinda Phallukasz [employer] LAB BLOOD ORDERABLES Final Res ult [facility] [address] [place] [phone] * Lipid Panel, Standard (06/10/2024 11:59 AM EST) Triglycerides 124 <150 mg/dL [facility] Comment:Desirable Triglyceri de: less than 150 mg/dLBorderline High Triglyceride 150-199 mg/dLHigh Triglyceride: 200-499 mg/dLVery High Triglyceride: greater than or equal to 5OO mg/dL Cholesterol 132 <200 mg/dL [facility] Comment:Desirable Cholestero l: less than 200 mg/dLBorderline High Cholesterol: 200-239 mg/dLHigh Cholesterol: greater than 239 mg/dL LDL Cholesterol Calculated 65 <100 mg/dL [facility] Comment:Desirable LDL: less than 100 mg/dLNear Optimal/Above Optimal LDL: 110- 129 mg/dLBorderline High LDL: 130-159 mg/dLHigh LDL: 160-189 mg/dLVery High LDL: greater than or equal to 190 mg/dL HDL Cholesterol 43 >40 mg/dL [facility] Comment:Desirable HDL: great er than 40 mg/dL Note: This HDL assay may give artificially low results in patients with liver disease. Blood Venous blood specimen / Unknown 06/10/2024 11:59 AM EST 06/10/2024 2:21 PM EST us Erlinda MAYERS LAB BLOOD ORDERABLES Final Res ult [facility] [address] [place] [phone] * (ABNORMAL) POCT HGB A1C (06/10/2024 10:42 AM EST) Hemoglobin A1C 7.3(A) 4.0 - 6.0 % QC Media Lot # [id number] Lot# Expiration Date [id number] Blood 06/10/2024 10:4 2 AM EST us Erlinda Hernandez [employer] POINT OF CARE TEST ENTER/EDIT ORDERABLES Final Result * POCT Glucose (06/10/2024 10:42 AM EST) Glucose Blood, POC 117 60 - 200 mg/dL Comment:random QC Media Lot # [id number] Lot# Expiration Date 4825 Blood Capillary blood specimen / Unknown 06/10/2024 [...] pain documented in this encounter Care Teams Customer Service Voice Relationship Specialty Start Date End Date Erlinda Hernandez FNP [address] [place] [phone] PCP - General Family Medicine 06/10/24 documented as of this encounter
--- OUTSIDE RECORDS SUMMARY | 2024-06-12 17:48 | XMS_ITS | Clinical Summary ---
Author Organization [employer] Address [address] [place] [address] Care Team Providers Care Aligner Typewriter Name Role Phone Erlinda Hernandez RIANA Primary Care Provider [phone] Allergies No known active allergies Medications metFORMIN [...] from hospitalization - Follow up scheduled with [facility] Endo as scheduled - Given specialist f/up and improvement in BG control, no med adjustments made today - Cont metformin 500mg BID and glipizide 5mg daily CVA (cerebral vascular accident) 06/04/2024 Overview (06/10/2024): CVA 03/26/24 - [facility] Admission. CVA Apr 2024 - [facility] Admission. MRI brain demonstrated acute-subacute right [...] Description 06/10/2024 10:30 AM EST Office Visit [facility] [address] [place] [address] Erlinda Hernandez FNP Cerebrovascular accident (CVA), unspecified mechanism (CMS/HCC) (Primary Dx); Encounter for screening mammogram for malignant neoplasm of breast; Healthcare maintenance; Primary hypertension; Type 2 diabetes mellitus without complication, without long-term current use of insulin (CMS/HCC); Adjustment disorder, unspecified type; Bloating 06/10/2024 Travel 06/10/2024 Telephone [facility] [address] [place] [address] Julieta Sullivan RN HDF/RETAIL ADVISOR appt 05/23/2024 Patient Outreach [facility] [address] [place] [address] Sherin Garcia MD Transition Of Care (Tcm) (HDF- Scheduled) 05/14/2024 Telephone [facility] [address] [place] [address] Sherin Garcia MD Transition Of Care (Tcm) (REGARDING: CALL TO [facility]) 05/10/2024 Orders Only [facility] Information Management [address] [place], [place] [phone] ProviderEdmond MD 05/09/2024 Telephone [facility] [address] [place], [place] [phone] Sherin Garcia MD Transition Of Care (Tcm) [...] Description 06/24/2024 9:00 AM EST Office Visit [facility] ADULT D[facility] [address] [place], [place] [phone] Karla Leona, DDS [address] [place] [address] 07/15/2024 11:15 AM EST Office Visit [facility] PED[facility] [address] [place] [address] Erlinda Hernandez, RN CLINICAL RESEARCH [address] [place] [address] Health Maintenance Due Date Last Done Comments CT Colonography 1977 Colonoscopy 1977 Colorectal Cancer Screening 1977 Dental Oral Exam 1977 Dental Prophylaxis 1977 Dental X-Ray: Full Mouth 1977 Depression Screening 1977 FIT DNA/Cologuard 1977 FIT 1977 FOBT 1977 SDOH Screening 1977 Sigmoidoscopy 1977 Diabetes: Foot Exam 1987 Eye Exam 1987 Alcohol/Substance Use Screening 1989 Family Planning (PISQ) 1992 Hepatitis C Screening 1995 DTaP/Tdap/Td Vaccines (1 - Tdap) 1996 Diabetes: Urine Protein Screening 1996 Hepatitis B Vaccines (1 of 3 - 19+ 3-dose series) 1996 Pneumococcal Vaccine: Pediat rics (0 to 5 Years) and At-Risk Patients (6 to 49) Years) (1 of 2 - PCV) 1996 Pap Smear 1998 Cervical Cancer Screening [...] older (1 - 1-dose 75+ series) 2052 HIV Screening Completed 06/10/2024 HIB Vaccines Aged Out No longer eligi [...] Procedure Name Priority Date/Time Associated Diagnosis Comments HEPATITIS B SURFACE ANTIGEN, EIA Routine 06/10/2024 [...] 25-Hydroxy, Total, Immunoassay (06/10/2024 11:59 AM EST) [facility] Vitamin D 25-OH Total 27.6(L) >30 ng/mL [facility] Comment:Health Based Referen ce Values*< 20 ng/mL [id number] ng/mL Insufficient> 30 ng/mL Sufficient*Eric SANABRIA. N [...] 06/10/2024 2:21 PM EST us Erlinda Hernandez RN CLINICAL RESEARCH LAB BLOOD ORDERABLES Final Res ult [facility] [address] [place] [phone] * Vitamin B12/Folate, Serum Panel (06/10/2024 11:59 AM EST) Vitamin B12 839 200 - 900 pg/mL [facility] Comment:NORMAL 200-900 PG/ML INDETERMINATE 160-199 PG/ML DEFICIENT < 160 PG/ML Folate 9.2 > or = 4.0 ng/mL [facility] Comment:Reference Values:> o r = 4.0 ng/mL< 4.0 ng/mL suggests folate deficiency Methotrexate, aminopterin and folinic acid(leucovorin) are chemotherapeutic agents whose molecularstructures are similar to folate; therefore, the Architectfolate assay cannot be used for patients using these drugs. Blood Venous blood specimen / Unknown 06/10/2024 11:59 AM EST 06/10/2024 2:21 PM EST Erlinda Hernandez [facility] LAB BLOOD ORDERABLES Final Res ult Performing Organization Address [facility] Co de Phone Number [facility] [address] [place] [phone] * TSH with Reflex to Free T4 (06/10/2024 11:59 AM EST) Pathologist [facility] TSH reflex Free T4 1.16 0.32 - 4.0 uIU/mL [facility] Blood 06/10/2024 11:5 9 AM EST 06/10/2024 2:21 PM EST Erlinda M.dotlukasz [facility] LAB BLOOD ORDERABLES Final Res ult Performing Organization Address [facility]/ZIP Co de Phone Number [facility] [address] [place] [phone] * (ABNORMAL) CBC auto differential (06/10/2024 11:59 AM EST) White Blood Count 10.1 4.8 - 10.8 X10*3/uL [facility] Red Blood Count 4.60 4.20 - 5.50 X10*6/uL [facility] Hemoglobin 13.4 12.0 - 16.0 g/dl [facility] Hematocrit 40.0 37.0 - 47.0 % [facility] Mean Corpuscular Volume 87.0 80.0 - 98.0 fL [facility] Mean Corpuscular Hemoglobin 29.1 27.0 - 33.0 pg [facility] Mean Corpuscular HGB Conc 33.5 31.0 - 35.0 g/dl [facility] Red Cell Distribution Width 13.1 11.0 - 16.0 % [facility] Platelet Count 401(H) 160 - 400 X10*3/uL [facility] Mean Platelet Volume 11.3 9.4 - 12.3 fL [facility] Neutrophils Percent Auto 81.7(H) 45 - 73 % [facility] Imm Gran Pct Auto 0.3 0.0 - 0.4 % [facility] Lymphocytes Percent Auto 11.2(L) 20 - 40 % [facility] Monocytes Percent Auto 5.7 2 - 11 % [facility] Eosinophils Percent Auto 0.9 0 - 4 % [facility] Basophils Percent Auto 0.2 0 - 2 % [facility] NRBC Pct Auto 0.0 0.0 - 0.2 /100WBC [facility] Neutrophils Absolute Auto 8.3 2.0 - 8.3 x10*3/uL [facility] Imm Gran Abs Auto 0.03 0.00 - 0.03 X10*3/uL [facility] Lymphocytes Absolute Auto 1.1(L) 1.2 - 4.9 X10*3/uL [facility] Monocytes Absolute Auto 0.6 0.1 - 1.2 X10*3/uL [facility] Eosinophils Absolute Auto 0.1 0.0 - 0.4 X10*3/uL [facility] Basophils Absolute Auto 0.0 0.0 - 0.2 X10*3/uL [facility] NRBC Abs Auto 0.000 0.0 - 0.012 X10*3/uL [facility] Blood Venous blood specimen / Unknown 06/10/2024 11:59 AM EST 06/10/2024 2:21 PM EST Erlinda Hernandez RN CLINICAL RESEARCH LAB BLOOD ORDERABLES Final Res ult Performing Organization Address City/[facility]/ZIP Co de Phone Number [facility] [address] [place] [phone] * Hepatitis B surface antigen, EIA (06/10/2024 11:59 AM EST) Hepatitis B Surface Ag Negative Negative [facility] Blood Venous blood specimen / Unknown 06/10/2024 11:59 AM EST 06/10/2024 2:21 PM EST Erlinda Hernandez [facility] LAB BLOOD ORDERABLES Final Res ult Performing Organization Address [facility]/ZIP Co de Phone Number [facility] [address] [place] [phone] * Hepatitis B Core Antibody, Total (06/10/2024 11:59 AM EST) Hepatitis B Core Antibody Nonreactive Nonreactive [facility] Blood Venous blood specimen / Unknown 06/10/2024 11:59 AM EST 06/10/2024 2:21 PM EST Erlinda Hernandez [facility] LAB BLOOD ORDERABLES Final Res ult Performing Organization Address [facility] Co de Phone Number [facility] [address] [place] [phone] * HIV-1/2 Antigen and Antibodies, Fourth Generation, with Reflexes (06/10/2024 11:59 AM EST) HIV AB/AG Nonreactive Nonreactive [facility] Comment:HIV-1 p24 Ag and/or HIV-1/HIV-2 Ab not detected.A test result that is nonreactive does not exclude thepossibility of exposure to or infection with HIV-1 and/orHIV-2. Nonreactive results in this assay for individualswith prior exposure to HIV-1 and/or HIV-2 may be due toantigen and antibody levels that are below the limit ofdetection of this assay.The Visual Revenuenity HIV Ag/Ab Combo assay result andsupplemental assay results should be interpreted inconjunction with the patient's clinical presentation,history and other laboratory results. If the results areinconsistent with clinical evidence, additional testing issuggested to confirm the result. Blood Venous blood specimen / Unknown 06/10/2024 11:59 AM EST 06/10/2024 2:21 PM EST Erlinda Hernandez [facility] LAB BLOOD ORDERABLES Final Res ult Performing Organization Address [facility]/ZIP Co de Phone Number [facility] [address] [place] [phone] * Hepatitis B Surface Antibody, Qualitative (06/10/2024 11:59 AM EST) ~Hepatitis B Surface Antibody NONREACTIVE Nonreactive [facility] Comment:Nonreactive: < 8.00 mIU/mL Blood Venous blood specimen / Unknown 06/10/2024 11:59 AM EST 06/10/2024 2:21 PM EST Erlinda [facility] LAB BLOOD ORDERABLES Final Res ult [facility] [address] [place] [phone] * Magnesium (06/10/2024 11:59 AM EST) Magnesium 2.1 1.6 - 2.6 mg/dL [facility] Blood Venous blood specimen / Unknown 06/10/2024 11:59 AM EST 06/10/2024 2:21 PM EST Erlinda Hernandez [facility] LAB BLOOD ORDERABLES Final Res ult Performing Organization Address [facility] Co de Phone Number [facility] [address] [place] [phone] * Lipid Panel, Standard (06/10/2024 11:59 AM EST) Triglycerides 124 <150 mg/dL [facility] Comment:Desirable Triglyceri de: less than 150 mg/dLBorderline High Triglyceride 150-199 mg/dLHigh Triglyceride: 200-499 mg/dLVery High Triglyceride: greater than or equal to 5OO mg/dL Cholesterol 132 <200 mg/dL [facility] Comment:Desirable Cholestero l: less than 200 mg/dLBorderline High Cholesterol: 200-239 mg/dLHigh Cholesterol: greater than 239 mg/dL LDL Cholesterol Calculated 65 <100 mg/dL [facility] Comment:Desirable LDL: less than 100 mg/dLNear Optimal/Above Optimal LDL: 110- 129 mg/dLBorderline High LDL: 130-159 mg/dLHigh LDL: 160-189 mg/dLVery High LDL: greater than or equal to 190 mg/dL HDL Cholesterol 43 >40 mg/dL [facility] Comment:Desirable HDL: great er than 40 mg/dL Note: This HDL assay may give artificially low results in patients with liver disease. Blood Venous blood specimen / Unknown 06/10/2024 11:59 AM EST 06/10/2024 2:21 PM EST Erlinda Hernandez [facility] LAB BLOOD ORDERABLES Final Res ult Performing Organization Address City/[facility]/ZIP Co de Phone Number [facility] [address] [place] [phone] * (ABNORMAL) Comprehensive Metabolic Panel (06/10/2024 11:59 AM EST) Sodium 140 135 - 145 mmol/L [facility] Potassium 4.1 3.3 - 5.1 mmol/L [facility] Chloride 108 96 - 108 mmol/L [facility] Carbon Dioxide 21(L) 22 - 29 mmol/L [facility] Anion Gap 15 12 - 20 [facility] Urea Nitrogen (BUN) 16 9 - 16 mg/dL [facility] Creatinine, Serum 0.65 0.5 - 1.4 mg/dL [facility] Estimated Glomerular Filt Rate >60 [facility] Comment:Chronic Kidney Disea se: Estimated GFR < 60 mL/min/[id number] Kidney Disease: Estimated GFR < 15 mL/min/1.73m2 Glucose 78 60 - 115 mg/dL [facility] Calcium 9.6 8.4 - 10.2 mg/dL [facility] Bilirubin, Total 0.3 0.0 - 1.0 mg/dL [facility] Aspartate Amino Transferase 23 5 - 31 U/L [facility] Alanine Aminotransferase 21 0 - 31 U/L [facility] Total Protein 7.8 6.5 - 8.0 g/dL [facility] Albumin Level 4.0 3.5 - 5.0 g/dL [facility] Alkaline Phosphatase 73 39 - 117 U/L [facility] Blood Venous blood specimen / Unknown 06/10/2024 11:59 AM EST 06/10/2024 2:21 PM EST Erlinda [facility] BLOOD ORDERABLES Final Res ult [facility] [address] [place] [address] [phone] * (ABNORMAL) POCT HGB A1C (06/10/2024 10:42 AM EST) Hemoglobin A1C 7.3(A) 4.0 - 6.0 % QC Media Lot # [id number] Lot# Expiration Date [id number] Blood 06/10/2024 10:4 2 AM EST us Erlinda Hernandez RN CLINICAL RESEARCH POINT OF CARE TEST ENTER/EDIT ORDERABLES Final Result * POCT Glucose (06/10/2024 10:42 AM EST) Glucose Blood, POC 117 60 - 200 mg/dL Comment:random QC Media Lot # [id number] Lot# Expiration Date 482 Blood Capillary blood specimen / Unknown 06/10/2024 10:42 AM EST Erlinda Hernandez RN CLINICAL RESEARCH POINT OF CARE TEST ENTER/EDIT ORDERABLES Final Result * MRI BRAIN WO CONTRAST (05/09/2024 1:24 PM EST) Anatomical Region Laterality Modality Magnetic Resonan ce Historical Provider IMG MRI PROCEDURES Final Result from Last 3 Months Insurance [facility] C3 [facility] MEDICAID STAND ADULT Care Teams Aligner Typewriter Relationship Specialty Start Date End Date Erlinda Hernandez FNP [address] [place] [address] PCP - General Family Medicine 06/10/24
--- OUTSIDE RECORDS SUMMARY | 2024-06-12 17:49 | XMS_ITS | Clinical Summary ---
Author Organization 175 [facility] Address [address] [place] [address] Phone Care Team Providers Care Tobacco Educator Name Role Phone Sherin Garcia MD Primary Care Provider [phone] Allergies Active Allergy Reactions Criticality Noted Date [...] Team Description 05/27/2024 Plan of Care Documentation [facility] [address] [place] [address] 05/20/2024 Plan of Care Documentation [facility] [address] [place] [address] 05/13/2024 Plan of Care Documentation [facility] [address] [place] [phone] 05/06/2024 Plan of Care Documentation [facility] [address] [place] [address] 05/01/2024 Plan of Care Documentation [facility] [address] [place] [address] 04/24/2024 Plan of Care Documentation [facility] [address] [place] [address] 04/19/2024 5:41 PM EST - 05/31/2024 12:05 PM EST Hospital Encounter [facility] [address] [place] [address] Neida Bailey DO Stroke ([facility]) [I63.9] (Primary Dx) Discharge Disposition: Home or Self Care from Last 3 Months Medical History Medical History Date Comments HTN (hypertension) DM (diabetes mellitus) ([facility]) CVA (cerebral vascular accident) ([facility]) Social History Tobacco Use Types Packs/Day [...] 04/19/2024 10:20 PM EST Plan of Treatment Upcoming Encounters Date Type Department Care Team (Late st Contact Info) Description 06/26/2024 9:30 AM EST Appointment [facility] at [address] [address] Health Maintenance Due Date Last Done Comments [...] AM EST POCT GLUCOSE BLOOD Routine 05/17/2024 8 :40 PM EST POCT GLUCOSE BLOOD Routine 05/17/2024 [...] of167 resultswithin the time period is included. [facility] Glucose POCT 133(H) 70 - 100 mg/dL 05/31/2024 11:02 AM EST [facility] Blood Capillary blood specimen / Unknown 05/31/2024 11:01 AM EST 05/31/2024 11:04 AM EST Neida Bailey DO LAB POINT OF CARE TEST DOCKED DEVICE UNSOLICITED RESULTS [facility]) [facility] [address] [place] [address], * (ABNORMAL) Urinalysis with reflex microscopic and culture (05/30/2024 4:08 PM EST) Only the most recent of3 resultswithin the time period is included. [facility] Specific [place] Urine 1.016 1.003 - 1.030 LAB URINALYSIS - AUTOMATED METHOD 05/30/2024 4:42 PM [facility] pH, Urine 8.0 5.0 - 8.0 pH LAB URINALYSIS - AUTOMATED METHOD 05/30/2024 4:42 PM [facility] Leukocytes, Urine Small(A) Negative LAB URINALYSIS - AUTOMATED METHOD 05/30/2024 4:42 PM [facility] Nitrite, Urine Negative Negative LAB URINALYSIS - AUTOMATED METHOD 05/30/2024 4:42 PM [facility] Protein, Urine 30(A) <=Trace mg/dL LAB URINALYSIS - AUTOMATED METHOD 05/30/2024 4:42 PM [facility] Glucose, Urine Negative Negative mg/dL LAB URINALYSIS - AUTOMATED METHOD 05/30/2024 4:42 PM [facility] Ketones, Urine Negative Negative mg/dL LAB URINALYSIS - AUTOMATED METHOD 05/30/2024 4:42 PM [facility] Urobilinogen , Urine 0.2 0.2 - 1.0 mg/dL LAB URINALYSIS - AUTOMATED METHOD 05/30/2024 4:42 PM [facility] Bilirubin, Urine Negative Negative LAB URINALYSIS - AUTOMATED METHOD 05/30/2024 4:42 PM [facility] Blood, Urine Large(A) Negative LAB URINALYSIS - AUTOMATED METHOD 05/30/2024 4:42 PM [facility] RBC, Urine 1,555.8(H) 0 - 4 /HPF LAB URINALYSIS - AUTOMATED METHOD 05/30/2024 4:42 PM [facility] WBC, Urine 2.1 0 - 4 /HPF LAB URINALYSIS - AUTOMATED METHOD 05/30/2024 4:42 PM [facility] Squamous Epithelial, Urine 32 0 - 60 /LPF LAB URINALYSIS - AUTOMATED METHOD 05/30/2024 4:42 PM EST [facility] Bacteria, Urine Negative Negative /HPF LAB URINALYSIS - AUTOMATED METHOD 05/30/2024 4:42 PM [facility] Hyaline Casts, Urine 0.8 0 - 3 /LPF LAB URINALYSIS - AUTOMATED METHOD 05/30/2024 4:42 PM [facility] Urine Urine specimen obtained by clean catch procedure / Unknown Non-blood Collection / Unknown 05/30/2024 4:08 PM EST 05/30/2024 4:21 PM EST Madeline SALINAS LAB URINE ORDERABLES Performing Organization Address City/[facility]/ZIP Co de Phone Number [facility] [address] [place] [address], [place] [phone] * Guy urine culture tube (05/30/2024 4:08 PM EST) Only the most recent of3 resultswithin the time period is included. Extra Tube Hold for add-ons. 05/30/2024 6:02 PM EST [facility] Comment:Auto resulted. Urine Urine specimen obtained by clean catch procedure / Unknown Non-blood Collection / Unknown 05/30/2024 4:08 PM EST 05/30/2024 4:21 PM EST Madeline SALINAS LAB URINE ORDERABLES [facility] [address] [place] [address], [place] [phone] * Culture urine (05/30/2024 4:08 PM EST) Culture, Urine No growth 05/31/2024 10:19 AM [facility] Urine Urine specimen obtained by clean catch procedure / Unknown Non-blood Collection / Unknown 05/30/2024 4:08 PM EST 05/30/2024 4:42 PM EST Madeline SALINAS LAB MICROBIOLOGY - G ENERAL ORDERABLES [facility] [address] [place] [address], * (ABNORMAL) Complete blood count (05/30/2024 1:08 PM EST) Only the most recent of6 resultswithin the time period is included. WBC 6.1 4.8 - 10.8 K/mcL LAB HEMETOLOGY METHOD 05/30/2024 1:56 PM EST [facility] RBC 4.00 3.80 - 4.80 M/mcL LAB HEMETOLOGY METHOD 05/30/2024 1:56 PM [facility] Hemoglobin 11.7 11.5 - 16.0 g/dL LAB HEMETOLOGY METHOD 05/30/2024 1:56 PM [facility] Hematocrit 35.4 35.0 - 47.0 % LAB HEMETOLOGY METHOD 05/30/2024 1:56 PM [facility] MCV 87.6 79.0 - 98.0 FL LAB HEMETOLOGY METHOD 05/30/2024 1:56 PM [facility] MCH 29.0 27.0 - 32.0 pcg LAB HEMETOLOGY METHOD 05/30/2024 1:56 PM [facility] MCHC 33.1 32.0 - 37.0 g/dL LAB HEMETOLOGY METHOD 05/30/2024 1:56 PM [facility] RDW 13.0 11.0 - 15.0 % LAB HEMETOLOGY METHOD 05/30/2024 1:56 PM [facility] Platelets 300 130 - 400 K/mcL LAB HEMETOLOGY METHOD 05/30/2024 1:56 PM [facility] MPV 11.6(H) 7.0 - 11.0 FL LAB HEMETOLOGY METHOD 05/30/2024 1:56 PM EST [facility] NRBC 0.0 <1.0 % LAB HEMETOLOGY METHOD 05/30/2024 1:56 PM EST [facility] NRBC Absolute 0.00 <0.10 K/mcL LAB HEMETOLOGY METHOD 05/30/2024 1:56 PM EST [facility] Blood Venous blood specimen / Unknown Venipuncture / Unknown 05/30/2024 1:08 PM EST 05/30/2024 1:14 PM EST Madeline SALINAS LAB BLOOD ORDERABLES Performing Organization Address [facility]/ZIP Co de Phone Number [facility] [address] [place] [address], [place] [phone] * Magnesium (05/30/2024 1:08 PM EST) Only the most recent of5 resultswithin the time period is included. Magnesium 2.0 1.9 - 2.6 mg/dL LAB CHEMISTRY METHOD 05/30/2024 3:25 PM EST [facility] Blood Venous blood specimen / Unknown Venipuncture / Unknown 05/30/2024 1:08 PM EST 05/30/2024 1:14 PM EST Madeline SALINAS LAB BLOOD ORDERABLES Performing Organization Address City/[facility]/ZIP Co de Phone Number [facility] [address] [place] [address], [place] [phone] * (ABNORMAL) Comprehensive metabolic panel (05/30/2024 1:08 PM EST) Only the most recent of7 resultswithin the time period is included. Sodium 138 133 - 145 mmol/L LAB CHEMISTRY METHOD 05/30/2024 3:34 PM EST [facility] Potassium 4.2 3.5 - 5.5 mmol/L LAB CHEMISTRY METHOD 05/30/2024 3:34 PM [facility] Chloride 104 96 - 110 mmol/L LAB CHEMISTRY METHOD 05/30/2024 3:34 PM [facility] CO2 29 21 - 32 mmol/L LAB CHEMISTRY METHOD 05/30/2024 3:34 PM [facility] Anion Gap 5 3 - 11 LAB CHEMISTRY METHOD 05/30/2024 3:34 PM [facility] Glucose 144(H) 70 - 100 mg/dL LAB CHEMISTRY METHOD 05/30/2024 3:34 PM [facility] BUN 14 5 - 25 mg/dL LAB CHEMISTRY METHOD 05/30/2024 3:34 PM [facility] Creatinine 0.79 0.50 - 1.10 mg/dL LAB CHEMISTRY METHOD 05/30/2024 3:34 PM [facility] eGFR 93 >=60 mL/min/1. 73m2 LAB CHEMISTRY METHOD 05/30/2024 3:34 PM [facility] Comment:Calculation based on the??Chronic Kidney Disease Epidemiology Collaboration (CKD-EPI) equation refit??without adjustment for race. BUN/Creatinine Ratio 17.7 LAB CHEMISTRY METHOD 05/30/2024 3:34 PM [facility] Calcium 9.1 8.5 - 10.5 mg/dL LAB CHEMISTRY METHOD 05/30/2024 3:34 PM [facility] AST (SGOT) 24 10 - 42 unit/L LAB CHEMISTRY METHOD 05/30/2024 3:34 PM [facility] ALT (SGPT) 30 10 - 60 unit/L LAB CHEMISTRY METHOD 05/30/2024 3:34 PM [facility] Alkaline Phosphatase 71 42 - 121 unit/L LAB CHEMISTRY METHOD 05/30/2024 3:34 PM [facility] Total Protein 6.3 6.0 - 8.0 g/dL LAB CHEMISTRY METHOD 05/30/2024 3:34 PM EST [facility] Albumin 3.2 3.2 - 5.0 g/dL LAB CHEMISTRY METHOD 05/30/2024 3:34 PM EST [facility] Total Bilirubin 0.3 0.0 - 1.4 mg/dL LAB CHEMISTRY METHOD 05/30/2024 3:34 PM EST [facility] Blood Venous blood specimen / Unknown Venipuncture / Unknown 05/30/2024 1:08 PM EST 05/30/2024 1:14 PM EST Madeline SALINAS LAB BLOOD ORDERABLES [facility] [address] [place] [address], * Respiratory virus panel molecular study (05/30/2024 10:56 AM EST) Adenovirus Detection by PCR Not Detected Not Detected LAB MICROBIOLOGY METHOD 05/30/2024 12:07 PM [facility] Influenza A PCR Not Detected Not Detected LAB MICROBIOLOGY METHOD 05/30/2024 12:07 PM [facility] Influenza B PCR Not Detected Not Detected LAB MICROBIOLOGY METHOD 05/30/2024 12:07 PM [facility] Coronavirus 229E Not Detected Not Detected LAB MICROBIOLOGY METHOD 05/30/2024 12:07 PM [facility] Coronavirus HKU1 Not Detected Not Detected LAB MICROBIOLOGY METHOD 05/30/2024 12:07 PM [facility] Coronavirus OC43 Not Detected Not Detected LAB MICROBIOLOGY METHOD 05/30/2024 12:07 PM [facility] Coronavirus NL63 Not Detected Not Detected LAB MICROBIOLOGY METHOD 05/30/2024 12:07 PM [facility] Parainfluenza Virus 1 Not Detected Not Detected LAB MICROBIOLOGY METHOD 05/30/2024 12:07 PM [facility] Parainfluenza Virus 2 Not Detected Not Detected LAB MICROBIOLOGY METHOD 05/30/2024 12:07 PM [facility] Parainfluenza Virus 3 Not Detected Not Detected LAB MICROBIOLOGY METHOD 05/30/2024 12:07 PM [facility] Parainfluenza Virus 4 Not Detected Not Detected LAB MICROBIOLOGY METHOD 05/30/2024 12:07 PM [facility] RSV PCR Not Detected Not Detected LAB MICROBIOLOGY METHOD 05/30/2024 12:07 PM [facility] Human Metapneumovirus A and B Not Detected Not Detected LAB MICROBIOLOGY METHOD 05/30/2024 12:07 PM [facility] Rhinovirus/Entero virus Not Detected Not Detected LAB MICROBIOLOGY METHOD 05/30/2024 12:07 PM [facility] Bordetella pertussis Not Detected Not Detected LAB MICROBIOLOGY METHOD 05/30/2024 12:07 PM [facility] Bordetella parapertussis Not Detected Not Detected LAB MICROBIOLOGY METHOD 05/30/2024 12:07 PM [facility] Mycoplasma pneumo by PCR Not Detected Not Detected LAB MICROBIOLOGY METHOD 05/30/2024 12:07 PM [facility] Chlamydia pneumoniae Not Detected Not Detected LAB MICROBIOLOGY METHOD 05/30/2024 12:07 PM [facility] SARS COV-2 Not Detected Not Detected LAB MICROBIOLOGY METHOD 05/30/2024 12:07 PM [facility] Swab Both anterior nares / Unknown Non-blood Collection / Unknown 05/30/2024 10:56 AM EST 05/30/2024 11:03 AM [facility] - 05/30/2024 12:07 PM EST Testing was performed using the [employer] Respiratory Pathogen PCR Assay. All results must [...] - G ENERAL ORDERABLES Performing Organization Address [facility]/ZIP Co de Phone Number [facility] [address] [place] [address], [place] [phone] * Lavender tube (05/27/2024 5:43 AM EST) Only the most recent of2 resultswithin the time period is included. Pathologist [facility] Extra Tube Hold for add-ons. 05/27/2024 8:01 AM EST [facility] Comment:Auto resulted. Blood Venous blood specimen / Unknown Venipuncture / Unknown 05/27/2024 5:43 AM EST 05/27/2024 6:13 AM EST Neida Bailey DO LAB BLOOD ORDERAB LES Performing Organization Address [facility] Co de Phone Number [facility] [address] [place] [address], [place] [phone] * (ABNORMAL) Vitamin D 25 hydroxy (05/27/2024 5:43 AM EST) Only the most recent of2 resultswithin the time period is included. [facility] Vit D, 25-Hydroxy 25.8(L) 30.0 - 80.0 ng/mL LAB CHEMISTRY METHOD 05/27/2024 9:40 AM EST [facility] Blood Venous blood specimen / Unknown Venipuncture / Unknown 05/27/2024 5:43 AM EST 05/27/2024 6:11 AM EST Leah Philippe NP LAB BLOOD OR DERABLES Performing Organization Address [facility]/ZIP Co de Phone Number [facility] [address] [place] [address], [place] [phone] * (ABNORMAL) Vitamin B12 and folate (05/18/2024 11:05 AM EST) Pathologist [facility] Vitamin B-12 233(L) 250 - 900 pcg/mL LAB CHEMISTRY METHOD 05/18/2024 12:06 PM EST [facility] Folate 8.2 2.8 - 17.0 ng/ml LAB CHEMISTRY METHOD 05/18/2024 12:06 PM EST [facility] Blood Venous blood specimen / Unknown Venipuncture / Unknown 05/18/2024 11:05 AM EST 05/18/2024 11:15 AM EST Leah Philippe NP LAB BLOOD OR DERABLES Performing Organization Address City/[facility]/ZIP Co de Phone Number [facility] [address] [place] [address], [place] [phone] * (ABNORMAL) Creatine kinase and CKMB (05/13/2024 5:52 AM EST) [facility] Total CK 31 22 - 269 unit/L LAB CHEMISTRY METHOD 05/13/2024 6:51 AM EST [facility] CK-MB <1.0(L) 1.0 - 3.6 ng/mL LAB CHEMISTRY METHOD 05/13/2024 6:51 AM EST [facility] CK-MB Index <0.0(L) 0.0 - 5.0 LAB CHEMISTRY METHOD 05/13/2024 6:51 AM EST [facility] Blood Venous blood specimen / Unknown Venipuncture / Unknown 05/13/2024 5:52 AM EST 05/13/2024 6:07 AM EST Leah Philippe NP LAB BLOOD OR DERABLES Performing Organization Address [facility]/ZIP Co de Phone Number [facility] [address] [place] [address], * MR Brain wo Contrast (05/09/2024 5:31 PM EST) Anatomical Region Laterality Modality Head and Neck Magnetic Resonan ce 05/10/2024 1:06 AM EST Addenda Addendum by Krishan Oden MD on 05/10/2024 1:14 AM EST ADDENDUM: This report was discussed with Nteo TAO on May 10, 2024 01:13:00 EST. [...] dimensions are difficult to quantify but a charter representative measurement on image 21 of series 3 is 1.2 x 0.5 cm. On images 22-23 of series 3 is an area of restricted diffusion in the midline and right paracentral region of the srinivas, also compatible with an acute infarct. This is also difficult to accurately measure but a charter representative measurement on image 22 is approximately [...] dimensions are difficult to quantify but a charter representative measurement on image 21 of series 3 is 1.2x 0.5 cm. On images 22-23 of series 3 is an area of restricted diffusionin the midline and right paracentral region of the srinivas, also compatiblewith an acute infarct. This is also difficult to accurately measure but a charter representative measurement on image 22 is approximately [...] on 05/10/2024 01:06:25 Melvi SALINAS IMG MRI ND OCEDURES * CT Head wo Contrast (05/07/2024 [...] Signed Date: 05/07/2024 12:50 ET Workstation ID: [id number] Transcribed By: Self Edit Transcribed Date: 05/07/2024 [...] Signed Date: 05/07/2024 12:50 ET Workstation ID: [id number] Transcribed By: Self Edit Transcribed Date: 05/07/2024 12:47 ET Neida Bailey DO IMG CT PROCEDURES * Basic metabolic panel (05/07/2024 5:42 AM EST) Only the most recent of2 resultswithin the time period is included. Sodium 139 133 - 145 mmol/L LAB CHEMISTRY METHOD 05/07/2024 7:04 AM [facility] Potassium 4.0 3.5 - 5.5 mmol/L LAB CHEMISTRY METHOD 05/07/2024 7:04 AM [facility] Chloride 105 96 - 110 mmol/L LAB CHEMISTRY METHOD 05/07/2024 7:04 AM [facility] CO2 28 21 - 32 mmol/L LAB CHEMISTRY METHOD 05/07/2024 7:04 AM [facility] Anion Gap 6 3 - 11 LAB CHEMISTRY METHOD 05/07/2024 7:04 AM [facility] Glucose 87 70 - 100 mg/dL LAB CHEMISTRY METHOD 05/07/2024 7:04 AM [facility] BUN 13 5 - 25 mg/dL LAB CHEMISTRY METHOD 05/07/2024 7:04 AM [facility] Creatinine 0.63 0.50 - 1.10 mg/dL LAB CHEMISTRY METHOD 05/07/2024 7:04 AM [facility] eGFR 111 >=60 mL/min/1. 73m2 LAB CHEMISTRY METHOD 05/07/2024 7:04 AM [facility] Comment:Calculation based on the??Chronic Kidney Disease Epidemiology Collaboration (CKD-EPI) equation refit??without adjustment for race. BUN/Creatinine Ratio 20.6 LAB CHEMISTRY METHOD 05/07/2024 7:04 AM [facility] Calcium 9.3 8.5 - 10.5 mg/dL LAB CHEMISTRY METHOD 05/07/2024 7:04 AM [facility] Blood Venous blood specimen / Unknown Venipuncture / Unknown 05/07/2024 5:42 AM EST 05/07/2024 6:31 AM EST Radhika Barber GREEN BUILDING ENERGY ENGINEER LAB BLOOD ORDERABLES [facility] [address] [place] [address], [place] [phone] * SST tube (05/06/2024 10:26 AM EST) Pathologist [facility] Extra Tube Hold for add-ons. 05/06/2024 12:01 PM [facility] Comment:Auto resulted. Blood Venous blood specimen / Unknown 05/06/2024 10:26 AM EST 05/06/2024 10:37 AM EST Neida Bailey DO LAB BLOOD ORDERAB LES Performing Organization Address City/[facility]/ZIP Co de Phone Number [facility] [address] [place] [address], * (ABNORMAL) CBC auto differential (05/06/2024 10:26 AM EST) Only the most recent of2 resultswithin the time period is included. [facility] WBC 8.8 4.8 - 10.8 K/mcL LAB HEMETOLOGY METHOD 05/06/2024 10:49 AM [facility] RBC 4.10 3.80 - 4.80 M/mcL LAB HEMETOLOGY METHOD 05/06/2024 10:49 AM [facility] Hemoglobin 11.9 11.5 - 16.0 g/dL LAB HEMETOLOGY METHOD 05/06/2024 10:49 AM [facility] Hematocrit 35.6 35.0 - 47.0 % LAB HEMETOLOGY METHOD 05/06/2024 10:49 AM [facility] MCV 87.0 79.0 - 98.0 FL LAB HEMETOLOGY METHOD 05/06/2024 10:49 AM [facility] MCH 29.1 27.0 - 32.0 pcg LAB HEMETOLOGY METHOD 05/06/2024 10:49 AM [facility] MCHC 33.4 32.0 - 37.0 g/dL LAB HEMETOLOGY METHOD 05/06/2024 10:49 AM [facility] RDW 12.6 11.0 - 15.0 % LAB HEMETOLOGY METHOD 05/06/2024 10:49 AM [facility] Platelets 300 130 - 400 K/mcL LAB HEMETOLOGY METHOD 05/06/2024 10:49 AM [facility] MPV 11.8(H) 7.0 - 11.0 FL LAB HEMETOLOGY METHOD 05/06/2024 10:49 AM [facility] NRBC 0.0 <1.0 % LAB HEMETOLOGY METHOD 05/06/2024 10:49 AM [facility] NRBC Absolute 0.00 <0.10 K/mcL LAB HEMETOLOGY METHOD 05/06/2024 10:49 AM [facility] Neutrophils Relative 85.2 % LAB HEMETOLOGY METHOD 05/06/2024 10:49 AM [facility] Lymphocytes Relative 10.4 % LAB HEMETOLOGY METHOD 05/06/2024 10:49 AM [facility] Monocytes Relative 3.7 % LAB HEMETOLOGY METHOD 05/06/2024 10:49 AM [facility] Eosinophils Relative 0.2 % LAB HEMETOLOGY METHOD 05/06/2024 10:49 AM [facility] Basophils Relative 0.2 % LAB HEMETOLOGY METHOD 05/06/2024 10:49 AM [facility] Immature Granulocytes Relative 0.3 % LAB HEMETOLOGY METHOD 05/06/2024 10:49 AM [facility] Neutrophils Absolute 7.49(H) 1.50 - 7.00 K/mcL LAB HEMETOLOGY METHOD 05/06/2024 10:49 AM EST [facility] Lymphocytes Absolute 0.92(L) 1.00 - 5.00 K/mcL LAB HEMETOLOGY METHOD 05/06/2024 10:49 AM EST [facility] Monocytes Absolute 0.33 0.20 - 1.00 K/mcL LAB HEMETOLOGY METHOD 05/06/2024 10:49 AM EST [facility] Eosinophils Absolute 0.02 0.00 - 0.50 K/mcL LAB HEMETOLOGY METHOD 05/06/2024 10:49 AM EST [facility] Basophils Absolute 0.02 0.00 - 0.20 K/mcL LAB HEMETOLOGY METHOD 05/06/2024 10:49 AM EST [facility] Immature Granulocytes Absolute 0.03 0.00 - 0.03 K/mcL LAB HEMETOLOGY METHOD 05/06/2024 10:49 AM EST [facility] Blood Venous blood specimen / Unknown Venipuncture / Unknown 05/06/2024 10:26 AM EST 05/06/2024 10:36 AM EST Radhika Barber NP LAB BLOOD ORDERABLES [facility] [address] [place] [address], from Last 3 Months Advance Directives * [...] currently active code status orders. Care Teams Tobacco Educator Relationship Specialty Start Date End Date Sherin Garcia MD [address] [place] [phone] PCP - General Family Medicine 05/09/24
--- OUTSIDE RECORDS SUMMARY | 2024-06-12 17:49 | XMS_ITS | Encounter Summary ---
Author Organization [employer] [facility] Address [address] [place] [address] Care Team Providers Care Indoor Landscape Architect Name Role Phone Erlinda Hernandez RIANA Primary Care Provider Reason for Visit * Reason Onset Date Comments New Patient 03/16/2023 Encounter Details Date Type Department Care Team (Late st Contact Info) Description 03/16/2023 Telephone [facility] MEDICINE [address] [place] [phone] Lenard Hays MD [address] [place] [phone] New Patient Social History Tobacco Use Types [...] been transfer over to wait list for MEDICINAL CHEMIST. EFFECTIVE SINCE 03/16/2023 documented in this encounter Plan of Treatment Upcoming Encounters Date Type Department Care Team (Late st Contact Info) Description 06/24/2024 9:00 AM EST Office Visit [facility] ADULT DENTAL [address] [place] [address] Valiente-Francisco, Leona, DDS [address] [place] [address] 07/15/2024 11:15 AM EST Office Visit [facility] CH[facility] MED & PEDS [address] [place], [place] [phone] Erlinda Hernandez FNP [address] [place], [place] [phone] documented as of this encounter Visit Diagnoses Not on filedocumented in this encounter Care Teams Indoor Landscape Architect Relationship Specialty Start Date End Date Erlinda Hernandez FNP [address] [place] [address] PCP - General Family Medicine 06/10/24 documented as of this encounter
--- OUTSIDE RECORDS SUMMARY | 2024-06-12 17:51 | XMS_ITS | Encounter Summary ---
Author Organization [facility] Address [address] [place] [address] [address] [address] Care Team Providers Care Local Owner Operator Truck Driver Name Role Phone Erlinda Hernandez Primary Care Provider [phone] Encounter Details Date Type Department Care Team (Late st Contact Info) Description 05/10/2024 [facility] [address] [place] [address] Provider, MD Ed[place] Social History Tobacco Use [...] Description 06/24/2024 9:00 AM EST Office Visit [facility] ADULT DENTAL [address] [place] [address] Valiente-Francisco, Leona, DDS [address] [place] [address] 07/15/2024 11:15 AM EST Office Visit [facility] [address] [place] [address] Erlinda Hernandez FNP [address] [place] [address] documented as of this encounter Procedures Procedure [...] on filedocumented in this encounter Care Teams Local Owner Operator Truck Driver Relationship Specialty Start Date End Date Erlinda Hernandez FNP [address] [place] [address] PCP - General Family Medicine 06/10/24 documented as of this encounter
--- OUTSIDE RECORDS SUMMARY | 2024-06-12 17:51 | XMS_ITS | Encounter Summary ---
Author Organization [employer] Address [address] [facility] [address] [place] [address] Care Team Providers Care Regional Sales Executive Name Role Phone Unavailable Primary Care Provider Unavailabl e Reason for Visit * Reason Comments Transition Of Care (Tcm) HDF- Scheduled Encounter Details Date Type Department Care Team ([facility] st Contact Info) Description 05/23/2024 Patient Outreach [facility] MED [facility] PEDS [address] [place] [address] Sherin Garcia MD [address] [place] [address] Transition Of Care (Tcm) (HDF- Scheduled) Social [...] 05/23/24 1637 Hospital Discharges and Admission for [facility] Type of Visit Hospital Admission Date of Admission/Visit 04/19/24 Date of Discharge 05/31/24 Facility [facility] Rehab Diagnosis Stroke Disposition Discharged Home Follow-Up Actions Follow-Up Needed Provider appointment Follow-Up Outcome Spoke to Caregiver;Booked Appointment Initial Contact Date 05/23/24 Received incoming call from the [facility]. [facility] Patient has been scheduled for an HDF/LABOR RELATIONS ANALYST appointment on 06/10/2024 at 9:30AM with Dr. Sherin Garcia. CM requested discharge summaries to be faxed to the Care Management Department at [phone]. CC will follow up on discharge summary following patient's discharge. Insurance verified prior to scheduling. documented in this encounter Plan of Treatment Upcoming Encounters Date Type Department Care Team (Late st Contact Info) Description 06/24/2024 9:00 AM EST Office Visit [facility] ADULT DENTAL [address] [place] [address] Leona Acosta DDS [address] [place] [address] 07/15/2024 11:15 AM EST Office Visit [facility] MED [facility] PEDS [address] [place], [place] [phone] Erlinda Hernandez FNP [address] [place], [place] [id number] documented as of this encounter Visit Diagnoses Not on filedocumented in this encounter
--- OUTSIDE RECORDS SUMMARY | 2024-06-12 17:51 | XMS_ITS | Encounter Summary ---
Author Organization [facility] Address [address] [place] [address] Care Team Providers Care Prime Minister Name Role Phone Sherin Garcia MD Primary Care Provider [phone] Encounter Details Date Type Department Care Team ([facility] st Contact Info) Description 05/13/2024 Plan of Care Documentation [facility]hab [address] [place] [id number] Social History Tobacco Use Types Packs/Day Years [...] *No Product type* / Admitting Diagnosis: Stroke ([facility]) [I63.9] Admit Date/Time: 04/19/2024 5:41 PM Primary Rehab (Etiologic) Diagnosis: Patient Active Problem List Diagnosis HTN (hypertension) DM (diabetes mellitus) ([facility]) CVA (cerebral vascular accident) ([facility]) Team Discussion UPDATES: Physician: No new updates. RN: OLIVIER STEVENSON 05/12. Continent. Bruising from lovenox. Vitals WNL. OT: Regressed in self care. Partial A standing balance aspects. Decreased LUE ROM. PT: Mobility has changed, 4 stairs max A. Endurance poor. CAN INTAKE WORKER: Regressed, decreased pace, slurred speech. Communication break [...] CARE Score - Sit to Stand: 4 Chair/Kri-if-Chgoi Transfer Assistance Needed: Physical assistance Physical Assistance Level: 51%-75% Comment: L knee buckling CARE Score - Chair/Pbz-ma-Drmrq Transfer: 2 Car Transfer Reason if not [...] place, and person Communication/Sensory: Visual (Glasses)/hearing deficit, Non-Occitan patient/unable to speak/slurred speech Behavior: Appropriate behavior [...] Comments: Pt reporting completion of MBSS at [facility] prior to admission to rehab. Obtainedreport from [facility] and reviewed report. MBSS report recommending regular/thin, [...] inteligiblity given initial review ofstrategies and model. CAN INTAKE WORKER Assessment Results: Cognitive impairments Prognosis: Good Barriers to Discharge: (cognitive impairments, language barrier) Evaluation/Treatment Tolerance: Patient tolerated treatment well Plan Treatment/Interventions: Cognitive linguistic functioning CAN INTAKE WORKER Plan: Skilled CAN INTAKE WORKER Discharge Recommendations: Outpatient CAN INTAKE WORKER Diet Recommendations: Regular solids/thin liquids Barriers to Discharge: (cognitive impairments, language barrier) Field Laboratory Operator's Assessment Adult diet [facility]; Cardiac, Diabetic; 60 gm carb/Meal; Cardiac [...] medicationsat home as they were . Appetite DATA CODER OPERATOR: Good Intake DATA CODER OPERATOR: Stable Nutrition Diagnosis Status: Improvement Diagnosis: Altered [...] AM EST Appointment [facility] [address] [phone] documented as of this encounter Visit Diagnoses Not on filedocumented in this encounter Additional Health Concerns Assessment Noted Time PHQ-9 Depression Total Score: 1 04/22/20 24 8:26 AM EST documented as of this encounter Care Teams Prime Minister Relationship Specialty Start Date End Date Sherin Garcia MD [address] [place] [id number] PCP - General Family Medicine 05/09/24 documented as of this encounter
--- OUTSIDE RECORDS SUMMARY | 2024-06-12 17:51 | XMS_ITS | Encounter Summary ---
Author Organization [facility] Address [address] [place] [address] Care Team Providers Care Senior Data Scientist Name Role Phone Sherin Garcia MD Primary Care Provider [phone] Reason for Visit * Auth/Cert (Routine) Specialty Diagnoses / Procedures Referred By Kamar t Referred To Contact Diagnoses stroke Procedures INPATIENT REHAB FACILITY PROSPECTIVE PAYMENT SYSTEM ([facility]) Neida Bailey DO [address] [place] [address] [facility] Inpatient Rehab [address] [place] [address] Referral ID Status Reason Start Date Expiration Date Visits Re quested Visits Authorized [id number] 1 1 Encounter Details Date Type Department Care Team (Latest Contact Info) Description 04/19/2024 5:41 PM EST - 05/31/2024 12:05 PM EST Hospital Encounter [facility] Inpatient Rehab [address] [place] [address] Neida Bailey DO [address] [place] [address] Stroke (CMS/HCC) [I63.9] (Primary Dx) Discharge Disposition: [...] ofhypertension, diabetes. She was recently admitted to [facility] on 04/19/2024 with worsening left hemiparesis, slurred [...] of left-sided weakness she was transferred to [facility] on 04/19/2024. She has partial command of Palauan but is primarily Argentine-speaking. Her clinical trial specialist has a good command of Palauan. HOSPITAL COURSE: #Acute anterior right pontine stroke [...] other acute superimposed findings -CTA head/neck from [facility] showed moderate to severe intracranial atherosclerotic disease which likely puts her at risk for further CVAs -05/09 due to continued worsening weakness MRI brain ordered also reached out to Dr Reynoso at [facility] Neurology to inform of changes in neurostatus --> no response from Dr Reynoso, MRI brain 05/10 redemonstrated prior known infarcts without acute abnormality -continue therapies -left AFO received and will continue use -f/u Neurology 05/29/24 #Dysphagia -regular diet with thin liquids -continue PERSONNEL MONITOR #Depression -Escitalopram 5mg daily started 05/24, continue [...] 80 mg tablet Commonly known as: LIPITOR Boscobel stefani tableta (80 mg en total) por v??a oral antes de acostarse. (Take 1 tablet (80 mg total) by mouth at bedtime.) lisinopriL 10 mg tablet Commonly known as: PRINIVIL,ZESTRIL Boscobel 1 tableta (10 mg en total) por v??a oral 1 (stefani) vez al d??a. (Take 1 tablet (10 mg total) by mouth 1 (one) time each day.) Plavix 75 mg tablet Generic drug: clopidogreL Boscobel 1 tableta (75 mg en total) por [...] 3-5 buisness days prior to appointment at [phone]. [phone] [facility] [address] Go to Gato Garcia MD Monday Specialty: Family Medicine 9:30am NEW PATIENT APPOINTMENT Hospital Follow up Appointment [employer] Transportation has been coordinated for you. Wheel Chair Van Turkey Picker: 8:45am Return Drop off: 11:00am Trip # [id number] [address] [place] [address] Go to Akbar Talamantes CNP Monday 2:30pm [employer] Transportation has been coordinated for you. Wheel Chair Van Turkey Picker: 2:00pm Return Drop off: 3:45pm Trip #[id number] [facility] Endocrinology [facility] [address], [address] [place] [address] Go to Leona Francisco Monday 9:00am [employer] Transportation has been coordinated for you. Wheel Chair Van supervisor machine workers: 8:05am Return Drop Off: 10:45am Trip # [id number] Dental Department [address] [phone] * Jorden Soto LCSW - 05/09/2024 8:59 AM EST NO DRIVING until you are cleared by a physician. You have been registered for [employer]. If you need transportation to an appointment, please call [employer] [facility] at least 5 business days prior [...] * Diabetes Diet Meal Planning: General Info (Argentine) * Diabetes Diet Meal Planning: General Info (Palauan) * Aspirin and Antiplatelets: Cardiovascular Prevention: Safety (Argentine) * Clopidogrel Oral Tablet (CLOPIDOGREL - ORAL) (Argentine) documented in this encounter Medications at Time [...] new medication added at last minute. director of market intelligence rectified issues. Patient successfully discharged documented in this encounter Progress Notes * Elzbietacollin Garcia, PT - 05/31/2024 12:10 PM EST [facility] Physical Therapy Treatment Note 05/31/2024 Patient: Amalia Ann : 1975 Age: 49 y.o. Gender: female Primary Language: Argentine Diagnosis: No Principal Problem: There is no principal problem currently on the Problem List. Please update the Problem List and refresh. Past Medical History: Diagnosis Date CVA (cerebral vascular accident) ([facility]/HCC) DM (diabetes mellitus) ([facility]) HTN (hypertension) History reviewed. No pertinent surgical [...] I for picking up anobject with a medical records specialist. Pt completed x20ft of ambulation over uneven [...] Problems (Active) Template: Physical Therapy Problem: PT Correction Goals Dates: Start: 04/20/24 Goal: mod I bed mobility (Resolved) Dates: Start: 04/20/24 Expected End: 05/11/24 Resolved: 05/30/24 Outcomes Date/Time User Outcome 05/30/24 113Angie Garcia, PT Completed Goal: mod I transfers with LAD (Resolved) Dates: Start: 04/20/24 Expected End: 05/11/24 Resolved: 05/30/24 Outcomes Date/Time User Outcome 05/30/24 1137 Elzbieta Garcia, PT Completed Goal: mod I wc [...] Outcomes Date/Time User Outcome 05/20/24 1001 Elzbieta Garcia, PT Completed Goal: Pt will ambulate 25' with LAD mod A (Resolved) Dates: Start: 04/20/24 Expected End: 04/27/24 Resolved: 01/06/25 Outcomes Date/Time User Outcome 05/20/24 1001 Elzbieta [...] Garcia PT Completed Session Start/Stop Time: 829 0945 Therapy Minutes Physical Therapy PT Individual: [...] with the assistance of virtual interpretor felix [id number]. * Neida Bailey DO - 05/31/2024 11:21 [...] non-physician practitioner working with me, had a hujz-ee-[id number] encounter with the patient on the date specified below. Medicare's allowed non-physician practitioners are PAs, furrier designer, CNSs, and nurse midwives. Month/Day/Year: 05/31/24 2. [...] [ ] Home Health Aide [ ] Readiness Paraprofessional 4. Based on clinical findings of this [...] of short duration, usually related to medical reasons/catholic services) because: [ x ] Unsteady gait [...] - 05/31/2024 2:23 AM EST Problem: Cognitive: DomínguezOrtiz Fall Risk Goal: Last Known Fall Outcome: [...] Language Pathology Speech/Language Pathology Discharge Report Subjective PERSONNEL MONITOR Start Time: 1415 PERSONNEL MONITOR Stop Time: 1455 PERSONNEL MONITOR Time Calculation (min): 40 min Subjective: Pt [...] d/c recommendations. Pt helped create a HEP. Manny Cognitive Assessment (MOCA) 8.2 Visuospatial/Executive: 2/5 Namin/3 [...] Date/Time User Outcome 05/01/24 0920 Shayy Sanchez, PERSONNEL MONITOR Completed Goal: Patient will identify and utilize problem-solving intervention for task completion at 90% accuracy given min A (Resolved) Dates: Start: 04/20/24 Expected End: 05/17/24 Resolved: 05/15/24 Description: Goal Type: STG, Performance Level: Min assist Outcomes Date/Time User Outcome 05/15/24 1515 Sherri Rendon, PERSONNEL MONITOR Completed Goal: Patient will complete simple calculations for time/money management at 90% accuracy given Mauro Dates: Start: 04/20/24 Expected End: 05/31/24 Description: Goal Type: STG, Performance Level: Min assist Outcomes Date/Time User Outcome 05/30/24 1603 MARIE [...] Outcome 05/30/24 160MARIE Connell Adequate for Discharge Encounter Problems (Resolved) Template: [...] Date/Time User Outcome 04/23/24 125MARIE Miller Completed Plan: PERSONNEL MONITOR Discharge Recommendations: Outpatient PERSONNEL MONITOR Discharge Assessment/Impressions: On discharge, pt continues to [...] EST I attest that I, Amber Duque M.S.,CCC-PERSONNEL MONITOR, was physically involved in the ongoing assessment, [...] from the original note were not included. TAMPA PROGRESS NOTE Date: 05/30/2024 Author: BRAD Viramontes Patient ID: Amalia Ann is a 49 y.o. female : 1975 MR#: [id number] SUBJECTIVE Patient seen. She reports that she [...] at bedside to review discharge plan. Utilized Preschool Lead Teacher #[id number]. Pt is discharging home tomorrow 05/31 at noon. Wheel Chair Van booked with [employer]. Trip #[id number]. [facility] assigned as vendor. Pt will discharge home with [facility] for RN PT and OT. Confirmed with Job at [facility] no delay in SOC. SOC scheduled for 06/01/24. Family training completed. Pt has been registered for [employer]. Pt provided information on how to book, change or cancel a ride. Pts boyfriend attempted to quill picking machine operator medications at [facility] ([facility]). No medications available to quill picking machine operator. Medications were sent to [facility] on [address] Pt does not have a way to quill picking machine operator [facility] to [facility], who [facility] and [facility] to have medications [facility]. Pt will also need diabetic supplies. Dr. Bailey notified. Pt had no further questions or concerns at this time. Confirmed with [facility] at 4pm, medications were received from [facility] and will fill medications. Medications will be ready for quill picking machine operator tomorrow AM prior to DC. * Joshua Tellez OT - 05/30/2024 10:00 AM EST [facility] Occupational Therapy Treatment Note 05/30/24 Patient: Amalia Ann : 1975 Age: 49 y.o. Gender: female Diagnosis: No Principal Problem: There is no principal problem currently on the Problem List. Please update the Problem List and refresh. Primary Rehab (Etiologic) Diagnosis: Patient Active Problem List Diagnosis HTN (hypertension) DM (diabetes mellitus) ([facility]) CVA (cerebral vascular accident) ([facility]) PMH: Past Medical History: Diagnosis Date CVA (cerebral vascular accident) ([facility]) DM (diabetes mellitus) ([facility]) HTN (hypertension) PSH: History reviewed. No pertinent [...] Pt and SO Page at bedside. Video Argentine><Palauan internet marketer utilized throughout. Pt reporting increased fatigue, eyes [...] on schedule. Recommendation that pt do not pairer substandard shower due to absence of grab bar, [...] Problems (Active) Template: Occupational Therapy Problem: OT Correction Goals Dates: Start: 04/20/24 Goal: Pt will [...] 05/18/24 Description: Outcomes Date/Time User Outcome 05/30/24 Madhu Joshua Tellez OT Adequate for Discharge Goal [...] End: 05/22/24 Outcomes Date/Time User Outcome 05/30/24 Noris Tellez OT Adequate for Discharge Goal: Pt will utilize L UE gross assist during oral hygiene tasks. Dates: Start: 05/15/24 Expected End: 05/22/24 Outcomes Date/Time User Outcome 05/30/24 075Alexandre Tellez OT Adequate for Discharge Encounter Problems [...] Occupational Therapy OT Individual: 15 * Elzbieta Garcia, PT - 05/30/2024 8:25 AM EST [facility] Physical Therapy Discharge Evaluation Note 05/30/24 Patient: Amalia Ann : 1975 Age: 49 y.o. Gender: female Primary Language: Argentine Diagnosis: No Principal Problem: There is no principal problem currently on the Problem List. Please update the Problem List and refresh. HPI: Defer to EMR Past Medical History: Diagnosis Date CVA (cerebral vascular accident) (CMS/HCC) DM (diabetes mellitus) ([facility]/HCC) HTN (hypertension) History reviewed. No pertinent surgical [...] CARE Score - Sit to Stand: 6 Chair/Jsh-ub-Vzcuv Transfer Assistance Needed: Independent CARE Score - Chair/Kok-fo-Khwqe Transfer: 6 Toilet Transfer Assistance Needed: Independent [...] Supervision CARE Score - 12 Steps: 4 Turkey Picker Object Picking Up Object Assistance Needed: Independent Comment: medical records specialist CARE Score - Picking Up Object: 6 [...] present. Aria purchased SBQC for pt. Video internet marketer [id number] used for therapy session. Pt needing assistance [...] pt with no further questions for this designer/writer. Aria verbalized he would be able to assist pt up and down platform steps and on stairs. Pt and Louisagreeable to all recommendations. Therapist updating DINH Burton and VAHE Correa regarding change in fatigue level, reporting increasedfatigue throughout therapy session in WC. Therapist updating no change in strength in LE. PT ASSESSMENT: Aria able to provide appropriate assistance for d/c home. Aria and Amalia agreeable to all recommendations for [...] Problems (Active) Template: Physical Therapy Problem: PT Correction Goals Dates: Start: 04/20/24 Goal: mod I bed mobility (Resolved) Dates: Start: 04/20/24 Expected End: 05/11/24 Resolved: 05/30/24 Outcomes Date/Time User Outcome 05/30/24 1137 Elzbieta Garcia, PT Completed Goal: mod I transfers with LAD (Resolved) Dates: Start: 04/20/24 Expected End: 05/11/24 Resolved: 05/30/24 Outcomes Date/Time User Outcome 05/30/24 1137 Elzbieta Garcia, PT Completed Goal: mod I wc mobility 150' (Resolved) Dates: Start: 04/20/24 Expected End: 05/11/24 Resolved: 05/30/24 Outcomes Date/Time User Outcome 05/30/24 1137 Elzbieta Garcia, PT Completed Goal: up/dn 4 flights of stairs min A (Resolved) Dates: Start: 04/20/24 Expected End: 05/11/24 Resolved: 05/30/24 Outcomes Date/Time User Outcome 05/30/24 1137 Elzbieta Garcia, PT Completed Goal: Ambulate x50ft LRAD [...] Outcomes Date/Time User Outcome 05/20/24 1001 Elzbieta Garcia, PT Completed Goal: Assess stairs as appropriate [...] Comments No comments found. Session Start/Stop Time: 830 0145 Therapy Minutes Physical Therapy PT Individual: 75 * Neida Bailey, DO - 05/30/2024 8:06 AM EST Images from the original note were not included. [facility] INPATIENT REHABILITATION Daily Progress Note Patient [...] PRN, BRAD Hicks, 30 mL at 05/06/24 035 amLODIPine (NORVASC) tablet 10 mg, 10 mg, oral, Daily, BRAD Viramontes, 10 mg at 05/29/24 08 aspirin EC tablet 81 mg, 81 mg, oral, Daily, BRAD Hicks, 81 mg at 05/29/24 08 atorvastatin (LIPITOR) tablet 10 mg, 10 mg, oral, Nightly, BRAD Viramontes, 10 mg at 05/29/24 205 cholecalciferol (VITAMIN D-3) tablet 2,000 Units, 2,000 [...] injection 40 mg, 40 mg, subcutaneous, q24h [facility], Leah Philippe NP, 40 mg at 05/29/24 [...] care -secondary to CVA -continue PT, OT, PERSONNEL MONITOR, and nursing care #Acute anterior right pontine [...] other acute superimposed findings -CTA head/neck from [facility] showed moderate to severe intracranial atherosclerotic disease which likely puts her at risk for further CVAs -05/09 due to continued worsening weakness MRI brain ordered also reached out to Dr Reynoso at [facility] Neurology to inform of changes in neurostatus --> no response from Dr Reynoso, MRI brain 05/10 redemonstrated prior known infarcts without acute abnormality -continue therapies -left AFO received and will continue use -f/u Neurology 05/29/24 #Dysphagia -regular diet with thin liquids -continue PERSONNEL MONITOR #Depression -Escitalopram 5mg daily started 05/24, continue [...] Tellez OT - 05/30/2024 7:00 AM EST [facility] Occupational Therapy Discharge Note 05/30/24 Patient: Amalia Ann : 1975 Age: 49 y.o. Gender: female Diagnosis: No Principal Problem: There is no principal problem currently on the Problem List. Please update the Problem List and refresh. Primary Rehab (Etiologic) Diagnosis: Patient Active Problem List Diagnosis HTN (hypertension) DM (diabetes mellitus) ([facility]/HCC) CVA (cerebral vascular accident) (CMS/HCC) PMH: Past Medical History: Diagnosis Date CVA (cerebral vascular accident) (CMS/HCC) DM (diabetes mellitus) ([facility]) HTN (hypertension) PSH: History reviewed. No pertinent [...] patient's baseline?: No (05/30/24 07 : Joshua Tellez OT) Inattention: Behavior not present (05/30/24699 : Joshua Tellez OT) Disorganized thinking: Behavior not present (05/30/24699 : Joshua Tellez OT) Altered level of consciousness: Behavior not present (05/30/24699 : Joshua Tellez OT) BIMS Discharge 15 (05/30/24 07 : Joshua Tellez OT) Hearing, Speech, and [...] Tub/Shower Transfer Equipment Provided: Order placed through [employer] for tub txfer bench and a 3-in-1 [...] 3-/5 STANDARDIZED TESTS Right Hand Strength - Tv Technician (lbs) Handle Setting 2: 50 lbs Left Hand Strength - Tv Technician (lbs) Handle Setting 2: 11 lbs 9 Hole Peg Test (seconds) Right - 9 Hole Peg Test (seconds): 32 seconds Left - 9 Hole Peg Test (seconds): (pt placed 3 pegs in 2 minutes.) Procedures/Interventions: Re-eval- 30 minutes: D/c eval performed please see containers above. Self care- 60 minutes Pt supine upon arrival, agreeable to participation. Argentine><Palauan video internet marketer #[id number] utilized throughout session. Pt reporting back pain [...] mod I. Functional amb into bathroom at [facility] with S/steadying A. Pt txfered to toilet with commode frame with S. Pt toileted with mod I. Pt txfered to tub bench with SBQC with S. Pt txfered into tub with [...] Problems (Active) Template: Occupational Therapy Problem: OT Auditor Appraiser Goals Dates: Start: 04/20/24 Goal: Pt will [...] Expected End: 05/22/24 Outcomes Date/Time User Outcome 05/30/24750 Joshua Tellez [...] OT Start Time: 0700 OT Stop Time: 08 OT Time Calculation (min): 90 min Therapy [...] 05/29/2024 1:43 PM EST Followed up with [facility] Neurology. Pt had appointment at 11am this morning and has not arrived back to rehab unit. Spoke to Ira, patient is just now being seen at 1:44pm. [facility] office moved appointment to 1:30pm but unable to give reason why. Requested to speak to telegraph office telephone clerk. Spoke to [place] telegraph office telephone clerk, appointment was cancelled on 05/20 by the patient. Informed [place] this designer/writer received voicemail from Gladys TAO at [facility] Neurology on 05/[address] Reynoso did notwant to reschedule or cancel appointment and confirmed appointment was still scheduled for 05/29 at 11am. [place] plans to follow up. Confirmed with Marquis at [facility] express transportation (booked through [employer]). 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 * [...] (cerebral vascular accident) (CMS/HCC) DM (diabetes mellitus) (CMS/[facility]) HTN (hypertension) History reviewed. No pertinent surgical [...] medicationsat home as they were . Appetite WOVEN BLIND LOOM TENDER: Good Intake WOVEN BLIND LOOM TENDER: Stable Weight History: Wt Readings from Last 10 Encounters: 05/18/24 69.6 kg (153 lb 6.4 oz) Subjective Assessment: Pt seen for follow up- not in room during time of attempted visit. PO intake remains adequate- consuming 100% of meals per therapist asst. POCs well controlled. Noted tentative discharge home [...] fluid per day. Total Energy Estimated Needs: 4497-9208 kcal (20-25 kcal/kg actual weight), 70 g protein (1 g/kg actual weight), 2780-7210 mL (25-30 mL/kg actual weight) Height: 158 cm (62.21 ) Temp: 36.3 ??C (97.3 ??F) Food/Nutrition-Current Status: Intake Type: P.O. Appetite: Good Intake Amount (%): 75-100% Intake Assessment: Adequate Nutrition Focused Physical Findings: Overall Appearance: Unable to assess as pt in room with therapist with door closed Skin: No skin breakdown noted per seed analyst Fluid Accumulation/Edema: Generalized (per therapist asst) Nutrition Diagnosis: Code Type: None Identified Status: [...] follow. Signature: Penelope Bob RD * Elzbieta Garcia, PT - 05/29/2024 11:32 AM EST [facility] Physical Therapy Treatment Note 05/29/2024 Patient: Amalia Ann : 1975 Age: 49 y.o. Gender: female Primary Language: Argentine Diagnosis: No Principal Problem: There is no principal problem currently on the Problem List. Please update the Problem List and refresh. Past Medical History: Diagnosis Date CVA (cerebral vascular accident) (CMS/HCC) DM (diabetes mellitus) ([facility]) HTN (hypertension) History reviewed. No pertinent surgical [...] therapy session. Pts significant other Aria present.Video internet marketer [id number] used for therapy session. Therapist attempting sneakers, [...] prior to x4 FOS to apartment, this designer/writer was unaware of large [place], with no [...] Learner: Significant Other, Patient Readiness: Acceptance Method: Catering Operations Manager, Demonstration, Explanation Response: Demonstrated Understanding, Verbalizes Understanding Comment: DME planning, SBQC, stairs. Teach positioning to prevent injury, taught by Elzbieta Garcia PT at 05/29/2024 4:10 PM. Learner: Significant Other, Patient Readiness: Acceptance Method: Catering Operations Manager, Demonstration, Explanation Response: Demonstrated Understanding, Verbalizes Understanding [...] Problems (Active) Template: Physical Therapy Problem: PT Auditor Appraiser Goals Dates: Start: 04/20/24 Goal: mod I [...] Physical Therapy PT Individual: 95 * Neida Bailey, DO - 05/29/2024 10:47 AM EST Images from the original note were not included. [facility] RE[facility]ILITATION Daily Progress Note Patient name: Amalia [...] PRN, BRAD Hicks, 30 mL at 05/06/24 035 amLODIPine (NORVASC) tablet 10 mg, 10 mg, [...] Neida Bailey DO, 2 Units at 05/29/24 0809 magnesium hydroxide (MILK OF MAGNESIA) 400 mg/5 mL suspension 30 mL, 30 mL, oral, Daily PRN, BRAD Rojas, 30 mL at 04/23/24 0529 magnesium oxide (MAG-OX) tablet 400 mg, 400 mg, oral, BID, BRAD Viramontes, 400 mg at 809 metFORMIN (GLUCOPHAGE) tablet 500 mg, 500 mg, oral, BID with meals, Leah Philippe NP, 500 mg at 05/29/24 0810 traMADoL (ULTRAM) tablet 25 mg, 25 mg, [...] care -secondary to CVA -continue PT, OT, PERSONNEL MONITOR, and nursing care #Acute anterior right pontine [...] other acute superimposed findings -CTA head/neck from [facility] showed moderate to severe intracranial atherosclerotic disease which likely puts her at risk for further CVAs -05/09 due to continued worsening weakness MRI brain ordered also reached out to Dr Reynoso at [facility] Neurology to inform of changes in neurostatus --> no response from Dr Reynoso, MRI brain 05/10 redemonstrated prior known infarcts without acute abnormality -continue therapies -left AFO received and will continue use -f/u Neurology 05/29/24 #Dysphagia -regular diet with thin liquids -continue PERSONNEL MONITOR #Depression -Escitalopram 5mg daily started 05/24, continue [...] Language Pathology Speech Language Pathology Treatment Subjective PERSONNEL MONITOR Start Time: 0800 PERSONNEL MONITOR Stop Time: 08 PERSONNEL MONITOR Time Calculation (min): 35 min Subjective: Agreeable to ST. bull chain operator Alejandro #[id number] utilized. SO present for end of session. Objective General Visit Info General Family/Caregiver Present: Yes Treatment Cognitive Skills Therapeutic Interventions Cognitive Skills Direct Contact Time Entry: 35 Memory: Pt able to recall 2 dates from delayed recall task in previous session. Other Cognitive Skills Activity: With this designer/writer, Pt generated central handout for all cognitive [...] Plan for d/c assessment next session. Assessment/Plan PERSONNEL MONITOR Assessment Evaluation/Treatment Tolerance: Patient tolerated treatment well Plan Treatment/Interventions: Cognitive linguistic functioning PERSONNEL MONITOR Plan: Skilled PERSONNEL MONITOR PERSONNEL MONITOR Frequency: 5-7 days per week PERSONNEL MONITOR Duration of Sessions: 30-60 min per session PERSONNEL MONITOR Treatments per day: 1 time per day PERSONNEL MONITOR - Next Appointment: 05/30/24 Goals Encounter Problems Encounter Problems (Active) Template: Speech Therapy Problem: Cognitive/Linguistics Dates: Start: 04/20/24 Goal: Patient will participate in further assessment of cognitive-linguistic skills (Resolved) Dates: Start: 04/20/24 Expected End: 05/04/24 Resolved: 05/01/24 Description: Goal Type: STG, Performance Level: Independent Outcomes Date/Time User Outcome 05/01/24 0920 Shayy Sanchez, PERSONNEL MONITOR Completed Goal: Patient will identify and utilize problem-solving intervention for task completion at 90% accuracy given min A (Resolved) Dates: Start: 04/20/24 Expected End: 05/17/24 Resolved: 05/15/24 Description: Goal Type: STG, Performance Level: Min assist Outcomes Date/Time User Outcome 05/15/24 1515 Sherri Rendon, PERSONNEL MONITOR Completed Goal: Patient will complete simple calculations [...] Learner: Patient Readiness: Eager Method: Explanation, Handout, Catering Operations Manager Response: Verbalizes Understanding, Demonstrated Understanding Comment: Central handout for memory, attention, problem solving strategies Education Comments No comments found. Associated attestation - Jen Duque SLP - 05/29/2024 3:52 PM EST I attest that I, Amber Duque M.Gato.,[facility]-PERSONNEL MONITOR, was physically involved in the ongoing assessment, decision making, and interventions provided during today's patient care session. I have reviewed all documentation for today's 05/29/24, entered by Speech Therapy Fellow, Shayy Meyer, and further attest that it is an accurate clinical record of today's encounter, including accurate and appropriatecharges. * Joshua Tellez, OT - 05/29/2024 7:00 AM EST [facility] Occupational Therapy Treatment Note 05/29/24 Patient: Amalia Ann : 1975 Age: 49 y.o. Gender: female Diagnosis: No Principal Problem: There is no principal problem currently on the Problem List. Please update the Problem List and refresh. Primary Rehab (Etiologic) Diagnosis: Patient Active Problem List Diagnosis HTN (hypertension) DM (diabetes mellitus) ([facility]/HCC) CVA (cerebral vascular accident) ([facility]/HCC) PMH: Past Medical History: Diagnosis Date CVA (cerebral vascular accident) ([facility]/HCC) DM (diabetes mellitus) ([facility]) HTN (hypertension) PSH: History reviewed. No pertinent [...] on lateral ankle from AFO, shoe removedand resident care director socks donned. Pt propelled self from room><ADL [...] on and call noriega in reach, awaiting PERSONNEL MONITOR. 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 bull chain operator [employer] #[id number] utilized. Objective General Visit Info General Family/Caregiver [...] Family training planned for next session. Assessment/Plan PERSONNEL MONITOR Assessment Evaluation/Treatment Tolerance: Patient tolerated treatment well Plan Treatment/Interventions: Cognitive linguistic functioning PERSONNEL MONITOR Plan: Skilled PERSONNEL MONITOR PERSONNEL MONITOR Frequency: 5-7 days per week PERSONNEL MONITOR Duration of Sessions: 30-60 min per session PERSONNEL MONITOR Treatments per day: 1 time per day PERSONNEL MONITOR - Next Appointment: 05/29/24 Goals Encounter Problems Encounter Problems (Active) Template: Speech Therapy Problem: Cognitive/Linguistics Dates: Start: 04/20/24 Goal: Patient will participate in further assessment of cognitive-linguistic skills (Resolved) Dates: Start: 04/20/24 Expected End: 05/04/24 Resolved: 05/01/24 Description: Goal Type: STG, Performance Level: Independent Outcomes Date/Time User Outcome 05/01/24 09 MARIE [...] PM. Learner: Patient Readiness: Eager Method: Explanation, Catering Operations Manager Response: Verbalizes Understanding, Demonstrated Understanding Education Comments No comments found. Associated attestation - Jen Duque SLP - 05/28/2024 10:11 PM EST I attest that I, Amber Duque M.S.,[facility]-PERSONNEL MONITOR, was physically involved in the ongoing assessment, [...] the original note were not included. [facility] Daily Progress Note Patient name: Amalia Ann : 1975 SUBJECTIVE: Patient seen and examined at bedside today. No acute events overnight. Denies headaches, dizziness,shortness of breath, chest pain, nausea, constipation, and pain. Does report she has been grinding her teeth at night more than usual. She doesn't have a dentist inthe community. Will speak to manager social media to see if we can provide her [...] Daily, BRAD Viramontes, 10 mg at 05/28/24 08 aspirin EC tablet 81 mg, 81 mg, oral, Daily, BRAD Hicks, 81 mg at 05/28/24 08 atorvastatin (LIPITOR) tablet 10 mg, 10 mg, oral, Nightly, BRAD Viramontes, 10 mg at 05/27/24 2144 cholecalciferol (VITAMIN D-3) tablet 2,000 Units, 2,000 Units, oral, Daily, Leah Philippe NP, 2,000 Units at 05/28/24 0825 clopidogreL (PLAVIX) tablet 75 mg, 75 mg, oral, Daily, BRAD Hicks, 75 mg at 05/28/24 08 cyanocobalamin (VITAMIN B-12) tablet 1,000 mcg, [...] tablet 5 mg, 5 mg, oral, Daily, Nedia Bailey DO, 5 mg at 05/28/24 08 glipiZIDE (GLUCOTROL) tablet 5 mg, 5 mg, oral, q AM AC, BRAD Viramontes, 5 mg at 05/28/24823 Glucagon HCl (rDNA) injection 1 mg, 1 mg, intramuscular, Once PRN, BRAD Hicks hydrALAZINE (APRESOLINE) tablet 10 mg, 10 mg, oral, TID PRN, BRAD Viramontes insulin lispro injection 2-12 Units, 2-12 Units, subcutaneous, TID AC, Neida Bailey DO, 2 Units at 05/27/24 0820 magnesium [...] care -secondary to CVA -continue PT, OT, PERSONNEL MONITOR, and nursing care #Acute anterior right pontine [...] other acute superimposed findings -CTA head/neck from [facility] showed moderate to severe intracranial atherosclerotic disease which likely puts her at risk for further CVAs -05/09 due to continued worsening weakness MRI brain ordered also reached out to Dr Reynoso at [facility] Neurology to inform of changes in neurostatus --> no response from Dr Reynoso, MRI brain 05/10 redemonstrated prior known infarcts without acute abnormality -continue therapies -left AFO received and will continue use -f/u Neurology after discharge #Dysphagia -regular diet with thin liquids -continue PERSONNEL MONITOR #Depression -Escitalopram 5mg daily started 05/24, continue [...] days. She and this Rn spoke with PAArabella, and she did this at home at baseline to a lesser degree. PA to coordinate with nurse case management to get dental referral in community upon discharge. * Elzbieta Garcia, PT - 05/28/2024 10:47 AM EST [facility] Physical Therapy Treatment Note 05/28/2024 Patient: Amalia Ann : 1975 Age: 49 y.o. Gender: female Primary Language: Argentine Diagnosis: No Principal Problem: There is no principal problem currently on the Problem List. Please update the Problem List and refresh. Past Medical History: Diagnosis Date CVA (cerebral vascular accident) ([facility]) DM (diabetes mellitus) ([facility]) HTN (hypertension) History reviewed. No pertinent surgical [...] agreeable to participating in therapy session. Video internet marketer [id number] used for therapy session. Per [place] [employer] insurance does not cover both WC and SBQC. Educated pt would need to obtain SBQC. Pt contacting [facility] to obtain SBQC prior to d/c to [...] on lateral aspect of malleolus. Pt donning resident care director socks. Pt completed WC mobility back to room. Pt left seated in WC, call noriega in reach, chair alarm on, all needs met. Education: Education Documentation Activation of EMS (Call 911), taught by Elzbieta Garcia PT at 05/28/2024 10:56 AM. 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 Appraiser Goals Dates: Start: 04/20/24 Goal: mod I [...] Outcomes Date/Time User Outcome 05/20/24 1001 Elzbieta Garcia, PT Completed Goal: Pt will ambulate 25' with LAD mod A (Resolved) Dates: Start: 04/20/24 Expected End: 04/27/24 Resolved: 05/20/24 Outcomes Date/Time User Outcome 05/20/24 1001 Elzbieta Garcia, PT Completed Goal: Assess stairs as appropriate [...] Tellez, OT - 05/28/2024 7:00 AM EST [facility] Occupational Therapy Treatment Note 05/28/24 Patient: [...] (cerebral vascular accident) (CMS/HCC) DM (diabetes mellitus) ([facility]) HTN (hypertension) PSH: History reviewed. No pertinent [...] elevated supine upon arrival, agreeable to participation. Argentine><[place] video internet marketer utilized throughout session. Vitals assessed, see above. [...] Problems (Active) Template: Occupational Therapy Problem: OT Correction Goals Dates: Start: 04/20/24 Goal: Pt will [...] Gray, OT Completed Goal: Pt will perform UB dressing with PETERSON, with carryover of tasha dressing technique (Resolved) Dates: Start: 04/20/24 Expected End: 04/27/24 Resolved: 05/03/24 Outcomes Date/Time User Outcome 05/03/24 1407 Albina Gray, OT Completed Education Documentation Home Exercise Program, taught by Joshua Tellez OT at 05/28/2024 8:39 AM. Learner: Patient Readiness: Acceptance Method: Demonstration, Catering Operations Manager, Explanation Response: Demonstrated Understanding, Verbalizes Understanding Teach positioning to prevent injury, taught by Joshua Tellez OT at 05/28/2024 8:39 AM. Learner: Patient Readiness: Acceptance Method: Demonstration, Catering Operations Manager, Explanation Response: Demonstrated Understanding, Verbalizes Understanding Education Comments No comments found. Start/Stop Time OT Time Calculation OT Start Time: 0700 OT Stop Time: 0830 OT Time Calculation (min): 90 min Therapy Minutes: Occupational Therapy OT Individual: 90 * Elzbieta Garcia, PT - 05/27/2024 3:41 PM EST Images from the original note were not included. [facility] [address] [place] [id number] Dept: [phone] Patient: Aamlia Ann : 1975 Age: 49 y.o. Gender: female Room Number: [id number] Diagnosis: No Principal Problem: There is no principal problem currently on the Problem List. Please update the Problem List and refresh. ICD-10-CM ICD-9-CM 1. Stroke (CMS/HCC) [I63.9] I63.9 434.91 Past Medical History: Diagnosis Date CVA (cerebral vascular accident) (CMS/HCC) DM (diabetes mellitus) (CMS/[facility]) HTN (hypertension) History reviewed. No pertinent surgical [...] bedside to review post team recommendations. Utilized Preschool Lead Teacher #[id number]. Pt is steadying-supv ADLS. Pt will discharge home wheel chair level on Wednesday 05/31. Pt will dischargehome with [facility] for RN PT and OT. Wheel Chair Van booked with [employer] for 05/31 at noon. Significant other will be at home waiting for pt. Family training completed today. Family again on Monday 05/29. Pt aware of Neurology appointment on Monday, quill picking machine operator 10:15am Medications will be filled at [facility] prior to DC. Pt had no questions or concerns at this time. Pt looking forward to discharge. Spoke to Roxanne at [facility], awaiting SOC date. * Shayy Sanchez, PERSONNEL MONITOR - 05/27/2024 1:00 PM EST Speech Language Pathology Speech Language Pathology Treatment Subjective PERSONNEL MONITOR Start Time: 1300 PERSONNEL MONITOR Stop Time: 1345 PERSONNEL MONITOR Time Calculation (min): 45 min Subjective: bull chain operator Jaime #[id number] and Aria #[id number] utilized. Cooperative and pleasant. Objective General Visit Info General Family/Caregiver Present: No Treatment Cognitive Skills Therapeutic Interventions Cognitive Skills Direct Contact Time Entry: 45 Memory: Provided Pt with s/s of stroke in Argentine - RAPIDO for home use. Problem Solving: [...] given min verbal cues/multiple choice cues. Assessment/Plan PERSONNEL MONITOR Assessment Evaluation/Treatment Tolerance: Patient tolerated treatment well Plan Treatment/Interventions: Cognitive linguistic functioning PERSONNEL MONITOR Plan: Skilled PERSONNEL MONITOR PERSONNEL MONITOR Frequency: 5-7 days per week PERSONNEL MONITOR Duration of Sessions: 30-60 min per session PERSONNEL MONITOR Treatments per day: 1 time per day PERSONNEL MONITOR - Next Appointment: 05/28/24 Goals Encounter Problems Encounter Problems (Active) Template: Speech Therapy Problem: Cognitive/Linguistics Dates: Start: 04/20/24 Goal: Patient will participate in further assessment of cognitive-linguistic skills (Resolved) Dates: Start: 04/20/24 Expected End: 05/04/24 Resolved: 05/01/24 Description: Goal Type: STG, Performance Level: Independent Outcomes Date/Time User Outcome 05/01/24 0920 Shayy Sanchez, PERSONNEL MONITOR Completed Goal: Patient will identify and utilize problem-solving intervention for task completion at 90% accuracy given min A (Resolved) Dates: Start: 04/20/24 Expected End: 05/17/24 Resolved: 05/15/24 Description: Goal Type: STG, Performance Level: Min assist Outcomes Date/Time User Outcome 05/15/24 1515 Sherri Rendon, PERSONNEL MONITOR Completed Goal: Patient will complete simple calculations [...] Date/Time User Outcome 05/27/24 1359 MARIE Shrestha Not Progressing Goal: Pt will improve delayed [...] PM. Learner: Patient Readiness: Eager Method: Explanation, Catering Operations Manager Response: Verbalizes Understanding, Demonstrated Understanding Comment: energy conservation strategies, auditory attention strategies Education Comments No comments found. Associated attestation - Jen Duque SLP - 05/27/2024 2:13 PM EST I attest that I, Amber Duque M.S.,[facility]-PERSONNEL MONITOR, was physically involved in the ongoing assessment, [...] Garcia, PT - 05/27/2024 11:23 AM EST [facility] Physical Therapy Treatment Note 05/27/2024 Patient: Amalia Ann : 1975 Age: 49 y.o. Gender: female Primary Language: Argentine Diagnosis: No Principal Problem: There is no principal problem currently on the Problem List. Please update the Problem List and refresh. Past Medical History: Diagnosis Date CVA (cerebral vascular accident) ([facility]) DM (diabetes mellitus) ([facility]) HTN (hypertension) History reviewed. No pertinent surgical [...] agreeable to participating in therapy session. Video internet marketer [id number] used for therapy session. Aria present for [...] Training, taught by Elzbieta Garcia, PT at 05/27/2024 12:34 PM. Learner: Significant Other, Patient Readiness: Acceptance Method: Demonstration, Explanation Response: Verbalizes Understanding, Demonstrated Understanding Comment: stroke signs and symptoms, d/c recommendations, stair training Personal Risk Factors for Stroke, taught by Elzbieta Garcia, PT at 05/27/2024 12:34 PM. Learner: Significant [...] Problems (Active) Template: Physical Therapy Problem: PT Correction Goals Dates: Start: 04/20/24 Goal: mod I [...] Physical Therapy PT Individual: 75 * Neida Bailey DO - 05/27/2024 10:53 AM EST Images from the original note were not included. [facility] Daily Progress Note Patient name: Amalia [...] q6h PRN, BRAD Hicks, 650 mg at 01/04/259986 aluminum-magnesium hydroxide-simethicone (MAALOX) 200-200-20 mg/5 mL suspension 30 mL, 30 mL, oral,q4h PRN, BRAD Hicks, 30 mL at 05/06/24 0354 amLODIPine (NORVASC) tablet 10 mg, 10 mg, oral, Daily, BRAD Viramontes, 10 mg at 05/27/24 08 aspirin EC tablet 81 mg, 81 mg, oral, Daily, BRAD Hicks, 81 mg at 05/27/24 08 atorvastatin (LIPITOR) tablet 10 mg, 10 [...] Leah Philippe NP, 40 mg at 05/27/24 1023 escitalopram (LEXAPRO) tablet 5 mg, 5 mg, oral, Daily, Neida Bailey DO, 5 mg at 05/27/2421 glipiZIDE (GLUCOTROL) tablet 5 mg, 5 mg, oral, q AM AC, BRAD Viramontes, 5 mg at 05/27/24 0821 Glucagon HCl (rDNA) injection 1 mg, 1 mg, intramuscular, Once PRN, BRAD Hicks hydrALAZINE (APRESOLINE) tablet 10 mg, 10 mg, oral, TID PRN, BRAD Viramontes insulin lispro injection 2-12 Units, 2-12 Units, subcutaneous, TID AC, Neida Bailey DO, 2 Units at 05/27/24 0820 magnesium hydroxide (MILK OF MAGNESIA) 400 mg/5 mL suspension 30 mL, 30 mL, oral, Daily PRN, BRAD Rojas, 30 mL at 04/23/24 0529 magnesium oxide (MAG-OX) tablet 400 mg, 400 mg, oral, BID, BRAD Viramontes, 400 mg at 821 metFORMIN (GLUCOPHAGE) tablet 500 mg, 500 mg, oral, BID with meals, Leah Philippe NP, 500 mg at 05/27/2421 traMADoL (ULTRAM) tablet 25 mg, 25 mg, [...] care -secondary to CVA -continue PT, OT, PERSONNEL MONITOR, and nursing care #Acute anterior right pontine [...] other acute superimposed findings -CTA head/neck from [facility] showed moderate to severe intracranial atherosclerotic disease which likely puts her at risk for further CVAs -05/09 due to continued worsening weakness MRI brain ordered also reached out to Dr Reynoso at [facility] Neurology to inform of changes in neurostatus --> no response from Dr Reynoso, MRI brain 05/10 redemonstrated prior known infarcts without acute abnormality -continue therapies -left AFO received and will continue use -f/u Neurology after discharge #Dysphagia -regular diet with thin liquids -continue PERSONNEL MONITOR #Depression -Escitalopram 5mg daily started 05/24, continue [...] #DVT prophylaxis: Lovenox 40mg daily * Joshua Tellez, OT - 05/27/2024 8:30 AM EST [facility] Occupational Therapy Treatment Note 05/27/24 Patient: Amalia Ann : 1975 Age: 49 y.o. Gender: female Diagnosis: No Principal Problem: There is no principal problem currently on the Problem List. Please update the Problem List and refresh. Primary Rehab (Etiologic) Diagnosis: Patient Active Problem List Diagnosis HTN (hypertension) DM (diabetes mellitus) ([facility]/HCC) CVA (cerebral vascular accident) ([facility]) PMH: Past Medical History: Diagnosis Date CVA (cerebral vascular accident) ([facility]/HCC) DM (diabetes mellitus) ([facility]) HTN (hypertension) PSH: History reviewed. No pertinent [...] toilet. Pt able to access toilet via SB, with SO providing hands on assist at home. Pt requesting to toilet. Functional amb at [facility] steadying A, toilet txfer steadying A with commode frame. SBA for clothing management. Pt with no successful BM. Pt performed oral hygiene in stand with use of B UEs, with SBA. Pt propelled self from room>ADL bathroom S. Functional amb into ADL bathroom at [facility] steadying A. 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 Learner: Significant Other, Patient Readiness: Acceptance Method: Explanation, Demonstration, Catering Operations Manager Response: Verbalizes Understanding, Demonstrated Understanding ADL Training, taught by Joshua Tellez OT at 05/27/2024 12:16 PM. Learner: Significant Other, Patient Readiness: Acceptance Method: Explanation, Demonstration, Catering Operations Manager Response: Verbalizes Understanding, Demonstrated Understanding Body Mechanics, taught by Joshua Tellez OT at 05/27/2024 12:16 PM. Learner: Significant Other, Patient Readiness: Acceptance Method: Explanation, Demonstration, Catering Operations Manager Response: Verbalizes Understanding, Demonstrated Understanding Activity/Positioning, taught by Joshua Tellez OT at 05/27/2024 12:16 PM. Learner: Significant Other, Patient Readiness: Acceptance Method: Explanation, Demonstration, Catering Operations Manager Response: Verbalizes Understanding, Demonstrated Understanding Discharge Planning, taught by Joshua Tellez OT at 05/27/2024 12:16 PM. Learner: Significant Other, Patient Readiness: Acceptance Method: Explanation, Demonstration, Catering Operations Manager Response: Verbalizes Understanding, Demonstrated Understanding Teach precautions to protect skin integrity, taught by Joshua Tellez OT at 05/27/2024 12:16 PM. Learner: Significant Other, Patient Readiness: Acceptance Method: Explanation, Demonstration, Catering Operations Manager Response: Verbalizes Understanding, Demonstrated Understanding Teach positioning to prevent injury, taught by Joshua Tellez OT at 05/27/2024 12:16 PM. Learner: Significant Other, Patient Readiness: Acceptance Method: Explanation, Demonstration, Catering Operations Manager Response: Verbalizes Understanding, Demonstrated Understanding Education Comments [...] Spiritual/Emotional Support Time Spent: 35 Minutes Location: [address] [place] [address] Sacramental Encounters: Spiritual Distress Assessment: Spiritual Distress [...] 1.2 Spiritual Assessment/Distress Spiritual Care Assessment: Assessment: Financial Management Consultant facilitated Spirituality Group on Mindfulness and Relaxation. Pt attended. Pt engaged in group process. Intervention: NE Spiritual Care Interventions : provided catholic resource Outcomes: expressed peace Plan of Care: [...] usually? Transcendence Do you have a particular restoration, azalea, or spirituality? Is your restoration/spirituality/azalea challenged by what is happening to you [...] Spiritual/Emotional Support Time Spent: 25 Minutes Location: [address] [place] [address] Sacramental Encounters: Spiritual Distress Assessment: Spiritual Distress [...] 1.2 Spiritual Assessment/Distress Spiritual Care Assessment: Assessment: Financial Management Consultant was referred by medical team and initiated follow-up visit. Pt showed evidenceof spiritual / emotional distress due to hospitalization and distance from family members. Chaplainused crime prevention police officer Fred #[id number] to speak to pt. Pt's mood was [...] alone. At the end of the visit, promotion officer invited pt to attend Monday's Spirituality Group, [...] usually? Transcendence Do you have a particular restoration, azalea, or spirituality? Is your restoration/spirituality/azalea challenged by what is happening to you [...] rest of shift. Pt saw Desmond from [facility] and RN requested that pt be on daily visit list as possible . * Elzbieta Garcia, PT - 05/24/2024 3:50 PM EST [facility] Physical Therapy Treatment Note 05/24/2024 Patient: Amalia Ann : 1975 Age: 48 y.o. Gender: female Primary Language: Argentine Diagnosis: No Principal Problem: There is no principal problem currently on the Problem List. Please update the Problem List and refresh. Past Medical History: Diagnosis Date CVA (cerebral vascular accident) ([facility]/HCC) DM (diabetes mellitus) ([facility]) HTN (hypertension) History reviewed. No pertinent surgical [...] assistance fortransfer from toilet to . Video internet marketer used [id number]. Education provided for skin check, pt performing [...] Therapist returning in afternoon Alejandro present. Video internet marketer [id number]. Pt giving this designer/writer permission to speak with Alejandro. Alejandro verbalized [...] Problems (Active) Template: Physical Therapy Problem: PT Correction Goals Dates: Start: 04/20/24 Goal: mod I [...] the original note were not included. [facility] Daily Progress Note Patient name: Amalia [...] Daily, BRAD Viramontes, 10 mg at 05/24/24 0808 aspirin EC tablet 81 mg, 81 mg, [...] KATIE, Leah Philippe NP, 40 mg at 05/24/24 0810 escitalopram (LEXAPRO) tablet 5 mg, 5 mg, oral, Daily, Neida Bailey, , 5 mg at 05/24/24 1215 glipiZIDE (GLUCOTROL) [...] Leah Philippe NP, 500 mg at 05/24/24 0808 traMADoL (ULTRAM) tablet 25 mg, 25 [...] care -secondary to CVA -continue PT, OT, PERSONNEL MONITOR, and nursing care #Acute anterior right pontine [...] other acute superimposed findings -CTA head/neck from [facility] showed moderate to severe intracranial atherosclerotic disease which likely puts her at risk for further CVAs -05/09 due to continued worsening weakness MRI brain ordered also reached out to Dr Reynoso at [facility] Neurology to inform of changes in neurostatus --> no response from Dr Reynoso, MRI brain 05/10 redemonstrated prior known infarcts without acute abnormality -continue therapies -left AFO received and will continue use -f/u Neurology after discharge #Dysphagia -regular diet with thin liquids -continue PERSONNEL MONITOR #Depression -Escitalopram 5mg daily started 05/24 #Hypertension [...] Language Pathology Speech Language Pathology Treatment Subjective PERSONNEL MONITOR Start Time: 1215 PERSONNEL MONITOR Stop Time: 1300 PERSONNEL MONITOR Time Calculation (min): 45 min Subjective: Pt was alert and sitting upright in bed for the session. Pt was pleasant and cooperative throughout the session. bull chain operator Gisella, #[id number], was used for the session. Objective General [...] A for use of cognitive strategies. Assessment/Plan PERSONNEL MONITOR Assessment PERSONNEL MONITOR Assessment Results: Cognitive impairments Evaluation/Treatment Tolerance: Patient tolerated treatment well Plan Treatment/Interventions: Cognitive linguistic functioning PERSONNEL MONITOR Plan: Skilled PERSONNEL MONITOR PERSONNEL MONITOR Frequency: 5-7 days per week PERSONNEL MONITOR Duration of Sessions: 30-60 min per session PERSONNEL MONITOR Treatments per day: 1 time per day Goals Encounter Problems Encounter Problems (Active) Template: Speech Therapy Problem: Cognitive/Linguistics Dates: Start: 04/20/24 Goal: Patient will participate in further assessment of cognitive-linguistic skills (Resolved) Dates: Start: 04/20/24 Expected End: 05/04/24 Resolved: 05/01/24 Description: Goal Type: STG, Performance Level: Independent Outcomes Date/Time User Outcome 05/01/24 0920 Shayy Sanchez, PERSONNEL MONITOR Completed Goal: Patient will identify and utilize problem-solving intervention for task completion at 90% accuracy given min A (Resolved) Dates: Start: 04/20/24 Expected End: 05/17/24 Resolved: 05/15/24 Description: Goal Type: STG, Performance Level: Min assist Outcomes Date/Time User Outcome 05/15/24 9125 Sherri Rendon, PERSONNEL MONITOR Completed Goal: Patient will complete simple calculations [...] Date/Time User Outcome 04/23/24 MARIE Schmidt Completed Education Documentation Speech/Language, taught by MARIE Arroyo at 05/24/2024 2:02 PM. Learner: Patient Readiness: Acceptance Method: Explanation Response: Verbalizes Understanding Cognition, taught by MARIE Arroyo at 05/24/2024 2:02 PM. Learner: Patient Readiness: Acceptance Method: Explanation Response: Verbalizes Understanding Education Comments No comments found. Associated attestation - Jen Duque SLP - 05/24/2024 7:07 PM EST I attest that I, Amber Duque M.S.,[facility]-PERSONNEL MONITOR, was physically involved in the ongoing assessment, [...] Spiritual/Emotional Support Time Spent: 20 Minutes Location: [address] [place] [address] Sacramental Encounters: Communion Given Indicator: (When The [...] meaning, solace, and help in prayer. The Financial Management Consultant led the patient in the traditional Worship Prayers-The Lord's Prayer, The Hail Marsha, and [...] silent and supportive presence, provided prayer, provided catholic resource, empowered Patient/Family, and relationship Guidance Outcomes: [...] usually? Transcendence Do you have a particular restoration, azalea, or spirituality? Is your restoration/spirituality/azalea challenged by what is happening to you [...] of severe unmet spiritual needs * Joshua Tellez, OT - 05/24/2024 10:00 AM EST [facility] Occupational Therapy Treatment Note 05/24/24 Patient: [...] pegs into holes on peg bored. Initial [id number] to align pegs with hole, and pt [...] for completion of exercises over the weekend. Anna present to support pt, pt in bed [...] taken for L UE fatigue. Pt continues to progress with L UE AROM, with more AROM [...] Problems (Active) Template: Occupational Therapy Problem: OT Correction Goals Dates: Start: 04/20/24 Goal: Pt will [...] Outcomes Date/Time User Outcome 05/23/24 1452 Joshua Michalowski, OT Progressing Goal: Pt will utilize L [...] 05/03/24 140Angie Gray OT Completed Education Documentation Home Exercise [...] Time OT Time Calculation OT Start Time: 999 OT Stop Time: 1120 OT Time Calculation (min): 80 min Therapy Minutes: Occupational Therapy OT Individual: 80 * Elzbieta Garcia, PT - 05/24/2024 9:47 AM EST [facility] Physical Therapy Treatment Note 05/24/2024 Patient: Amalia Ann : 1975 Age: 48 y.o. Gender: female Primary Language: Argentine Diagnosis: No Principal Problem: There is no [...] supine to sitting EOB, steadying assistance. Video internet marketer [id number] used for therapy session. Therapist providing education on skin checks, education on skin break down with use of AFO. Pt performing skin check with SUP janel designer/writer. Skin intact. Pt putting on straps of AFO. Pt giving this designer/writer permission to call [facility] family training. Pt completed WC mobility down to [...] setting for depression, pt agreeable to this designer/writer updating Dr. Bailey. Dr. Bailey present to consult with pt, per Dr. Bailey logging worker Melinda cruz at this time. Therapist [...] needs met. Therapist and Joshua OT using [employer] interpreting to call Aria with internet marketer [id number] for phone call. Catering Operations Manager leaving message, confirming family training Monday at [...] Problems (Active) Template: Physical Therapy Problem: PT Correction Goals Dates: Start: 04/20/24 Goal: mod I [...] Elzbieta Garcia PT Completed Session Start/Stop Time: 830 0115 Therapy Minutes Physical Therapy PT Individual: 45 * Isi Varghese RN - 05/24/2024 1:51 AM EST Problem: Cognitive: Catrachita Kaiser [...] Language Pathology Speech Language Pathology Treatment Subjective PERSONNEL MONITOR Start Time: 1400 PERSONNEL MONITOR Stop Time: 1440 PERSONNEL MONITOR Time Calculation (min): 40 min Subjective: Pt was alert and sitting upright in bed for the session. Pt was pleasant and cooperative throughout the session. bull chain operator Moisés, #[id number], was used for the session. Objective General Visit Info General Family/Caregiver Present: No Treatment Speech and Language Speech Treatment (Individual) Time Entry: 15 Speech: Pt was able to engage in a conversation w/ 90-100% inteligibility. The internet marketer did not ask for any repetitions. Pt [...] given mod A for appropriate solutions. Assessment/Plan PERSONNEL MONITOR Assessment PERSONNEL MONITOR Assessment Results: Cognitive impairments Evaluation/Treatment Tolerance: Patient tolerated treatment well Plan Treatment/Interventions: Cognitive linguistic functioning PERSONNEL MONITOR Plan: Skilled PERSONNEL MONITOR PERSONNEL MONITOR Frequency: 5-7 days per week PERSONNEL MONITOR Duration of Sessions: 30-60 min per session PERSONNEL MONITOR Treatments per day: 1 time per day PERSONNEL MONITOR - Next Appointment: 05/24/24 Goals Encounter Problems Encounter Problems (Active) Template: Speech Therapy Problem: Cognitive/Linguistics Dates: Start: 04/20/24 Goal: Patient will participate in further assessment of cognitive-linguistic skills (Resolved) Dates: Start: 04/20/24 Expected End: 05/04/24 Resolved: 05/01/24 Description: Goal Type: STG, Performance Level: Independent Outcomes Date/Time User Outcome 05/01/24 0920 Shayy Sanchez, MARIE Completed Goal: Patient will identify and utilize [...] 05/29/24 Description: Outcomes Date/Time User Outcome 05/23/24 145MARIE Hwang Not Progressing Goal: Pt will improve intelligibility at the paragraph/conversational level to baseline and independent w/ use of strategies Dates: Start: 04/26/24 Expected End: 05/24/24 Description: Outcomes Date/Time User Outcome 05/23/24 142MARIE Escalante Progressing Goal: Pt will complete mod to [...] EST I attest that I, Amber Duque M.S.,[facility]-PERSONNEL MONITOR, was physically involved in the ongoing assessment, decision making, and interventions provided during today's patient care session. I have reviewed all documentation for today's 05/23/24, entered by Speech Therapy Fellow, Sherri Rendon, and furtherattest that it is an accurate clinical record of today's encounter, including accurate and appropriate charges. * Penelope Bob, JENNIFER - 05/23/2024 2:50 PM EST 05/23/2024 @ [...] History: Diagnosis Date CVA (cerebral vascular accident) ([facility]/HCC) DM (diabetes mellitus) ([facility]) HTN (hypertension) History reviewed. No pertinent surgical [...] Pt continues to havegood PO intake per therapist asst. Consuming 75-100% of meals. POCs well controlled. [...] traMADoL Energy Needs: Total Energy Estimated Needs: 5803-0959 kcal (20-25 kcal/kg actual weight), 70 g protein (1 g/kg actual weight), 6364-4751 mL (25-30 mL/kg actual weight) Height: 158 cm (62.21 ) Temp: 36.7 ??C (98.1 ??F) Food/Nutrition-Current Status: Intake Type: P.O. Appetite: Good Intake Amount (%): 75-100% Intake Assessment: Adequate Nutrition Focused Physical Findings: Overall Appearance: Unable to assess as pt in room with therapist with door closed Skin: No skin breakdown noted per seed analyst Fluid Accumulation/Edema: Generalized (per therapist asst) Nutrition Diagnosis: Code Type: None Identified Status: [...] the original note were not included. [facility] Daily Progress Note Patient name: Amalia [...] KATIE, Leah Philippe, JASON, 40 mg at 05/23/24 0801 glipiZIDE (GLUCOTROL) [...] care -secondary to CVA -continue PT, OT, PERSONNEL MONITOR, and nursing care #Acute anterior right pontine [...] also reached out to Dr Reynoso at [facility] Neurology to inform of changes in neurostatus --> no response from Dr Reynoso, MRI brain 05/10 redemonstrated prior known infarcts -continue therapies -P&O consulted for left AFO -f/u Neurology after discharge #Dysphagia -regular diet with thin liquids -continue PERSONNEL MONITOR #Hypertension -Lisinopril 10mg daily increased to 20mg [...] as documented by PA today. * Joshua Tellez OT - 05/23/2024 12:30 PM EST [facility] Occupational Therapy Treatment Note 05/23/24 Patient: [...] Pt performed functional amb into bathroom at [facility] steadying A. Pt with no need to [...] Problems (Active) Template: Occupational Therapy Problem: OT Auditor Appraiser Goals Dates: Start: 04/20/24 Goal: Pt will [...] Learner: Patient Readiness: Acceptance Method: Explanation, Demonstration, Catering Operations Manager Response: Demonstrated Understanding, Verbalizes Understanding, Needs Reinforcement ADL Training, taught by Joshua Tellez OT at 05/23/2024 2:54 PM. Learner: Patient Readiness: Acceptance Method: Explanation, Demonstration, Catering Operations Manager Response: Demonstrated Understanding, Verbalizes Understanding, Needs Reinforcement Body Mechanics, taught by Joshua Tellez OT at 05/23/2024 2:54 PM. Learner: Patient Readiness: Acceptance Method: Explanation, Demonstration, Catering Operations Manager Response: Demonstrated Understanding, Verbalizes Understanding, Needs Reinforcement Skin Care/Pressure Ulcer Prevention, taught by Joshua Tellez OT at 05/23/2024 2:54 PM. Learner: Patient Readiness: Acceptance Method: Explanation, Demonstration, Catering Operations Manager Response: Demonstrated Understanding, Verbalizes Understanding, Needs Reinforcement Education Comments No comments found. Start/Stop Time OT Time Calculation OT Start Time: 1230 OT Stop Time: 1400 OT Time Calculation (min): 90 min Therapy Minutes: Occupational Therapy OT Individual: 90 * Elzbieta Garcia, PT - 05/23/2024 12:19 PM EST [facility] Physical Therapy Treatment Note 05/23/2024 Patient: Amalia Ann : 1975 Age: 48 y.o. Gender: female Primary Language: Argentine Diagnosis: No Principal Problem: There is no principal problem currently on the Problem List. Please update the Problem List and refresh. Past Medical History: Diagnosis Date CVA (cerebral vascular accident) ([facility]/HCC) DM (diabetes mellitus) ([facility]) HTN (hypertension) History reviewed. No pertinent surgical [...] agreeable to participating in therapy session. Video internet marketer used for therapy session [id number] used for therapy session. Therapist performing skin [...] steadying assistance, SUP bed mobility. Therapist educated DINH Prieto made aware, pt to not wear AFO [...] Problems (Active) Template: Physical Therapy Problem: PT Correction Goals Dates: Start: 04/20/24 Goal: mod I [...] a 48 y.o. female : 1975 MR#: [id number] SUBJECTIVE Pt seen, no c/o. She states [...] dimensions are difficult to quantify but a sales representative advertising measurement on image 21 of series 3 is 1.2 x 0.5 cm. On images 22-23 of series 3 is an area of restricted diffusion in the midline and right paracentral region of the srinivas, also compatible with an acute infarct. This is also difficult to accurately measure but a sales representative advertising measurement on image 22 is approximately 9 [...] Suspect secondary to intrinsic atherosclerotic disease likely direct marketing analyst now occluded CTA shows right V4 high-grade [...] 05/22/2024 5:00 PM EST Inpatient Consult to Knitting Supervisor/Prosthetics Dai Rehman CPO at patient's bedside at approximately 1700. Catering Operations Manager services used during consultation. Patient fit with left small toe off AFO. Was able to stand comfortably. Please call [employer] with any questions or concerns at [phone]. * Neida Bailey DO - 05/22/2024 4:51 PM EST Images from the original note were not included. [facility] Daily Progress Note Patient [...] oral, Daily, BRAD Hicks, 81 mg at 05/22/24815 cholecalciferol (VITAMIN D-3) tablet 2,000 Units, 2,000 [...] KATIE, Leah Philippe NP, 40 mg at 05/22/24815 [...] AC, Neida Bailey, DO, 2 Units at 05/21/2416 magnesium hydroxide (MILK OF MAGNESIA) 400 mg/5 mL suspension 30 mL, 30 mL, oral, Daily PRN, BRAD Rojas, 30 mL at 04/23/24 0529 magnesium oxide (MAG-OX) tablet 400 mg, 400 mg, oral, BID, BRAD Viramontes metFORMIN (GLUCOPHAGE) tablet 500 mg, 500 mg, oral, BID with meals, Leah Philippe NP, 500 mg at 05/22/2416 traMADoL (ULTRAM) tablet 25 mg, 25 mg, [...] care -secondary to CVA -continue PT, OT, PERSONNEL MONITOR, and nursing care #Acute anterior right pontine [...] also reached out to Dr Reynoso at [facility] Neurology to inform of changes in neurostatus --> no response from Dr Reynoso, MRI brain 05/10 redemonstrated prior known infarcts -continue therapies -P&O consulted for left AFO -f/u Neurology after discharge #Dysphagia -regular diet with thin liquids -continue PERSONNEL MONITOR #Hypertension -Lisinopril 10mg daily increased to 20mg [...] prophylaxis: Lovenox 40mg daily * Sherri Rendon, PERSONNEL MONITOR - 05/22/2024 3:28 PM EST Speech Language Pathology Speech Language Pathology Treatment Subjective PERSONNEL MONITOR Start Time: 1400 PERSONNEL MONITOR Stop Time: 1500 PERSONNEL MONITOR Time Calculation (min): 60 min Subjective: Pt was alert and sitting upright in bed for the session. Pt was pleasant and cooperative throughout the session. bull chain operator Prosper, #[id number], was used for the session. Objective General Visit Info General Family/Caregiver Present: No Treatment Speech and Language Speech Treatment (Individual) Time Entry: 15 Speech: Pt was able to read sentences w/ 80-100% inteligibility indep. Catering Operations Manager asked for x3 repetitions during task. Pt [...] office to setup appt for HW Assessment/Plan PERSONNEL MONITOR Assessment PERSONNEL MONITOR Assessment Results: Cognitive impairments Evaluation/Treatment Tolerance: Patient tolerated treatment well Plan Treatment/Interventions: Cognitive linguistic functioning PERSONNEL MONITOR Plan: Skilled PERSONNEL MONITOR PERSONNEL MONITOR Frequency: 5-7 days per week PERSONNEL MONITOR Duration of Sessions: 30-60 min per session PERSONNEL MONITOR Treatments per day: 1 time per day [...] Daniel Not Progressing Goal: Pt will improve intelligibility [...] EST I attest that I, Amber Duque M.S.,[facility]-PERSONNEL MONITOR, was physically involved in the ongoing assessment, decision making, and interventions provided during today's patient care session. I have reviewed all documentation for today's 05/22/24, entered by Speech Therapy Fellow, Sherri Rendon, and furtherattest that it is an accurate clinical record of today's encounter, including accurate and appropriate charges. * Josephine Maldonado RN - 05/22/2024 10:35 AM EST 0800- patient reported that a piece of her left upper molar fell out this am. Patient denied pain. This RN gave patient mouth wash and educated patient to keep area clean until she can follow up witha dentist after discharge. * Elzbieta Garcia, TAD - 05/22/2024 10:21 AM EST [facility] Physical Therapy Treatment Note 05/22/2024 Patient: Amalia Ann : 1975 Age: 48 y.o. Gender: female Primary Language: Argentine Diagnosis: No Principal Problem: There is no principal problem currently on the Problem List. Please update the Problem List and refresh. Past Medical History: Diagnosis Date CVA (cerebral vascular accident) ([facility]) DM (diabetes mellitus) ([facility]) HTN (hypertension) History reviewed. No pertinent surgical [...] AFO for discharge home, pt agreeable. Video internet marketer [id number] used for therapy session.Pt completed x4 FOS [...] Learner: Patient Readiness: Acceptance Method: Explanation, Demonstration, Catering Operations Manager Response: Verbalizes Understanding, Demonstrated Understanding Comment: d/c [...] Problems (Active) Template: Physical Therapy Problem: PT Correction Goals Dates: Start: 04/20/24 Goal: mod I [...] Outcomes Date/Time User Outcome 05/20/24 1002 Elzbieta Garcia, PT Progressing Encounter Problems (Resolved) Template: Physical [...] Elzbieta Garcia PT Completed Session Start/Stop Time: 1029 1130 Therapy Minutes Physical Therapy PT Individual: 60 * Joshua Tellez, OT - 05/22/2024 7:00 AM EST [facility] Occupational Therapy Treatment Note 05/22/24 Patient: [...] (cerebral vascular accident) (CMS/HCC) DM (diabetes mellitus) ([facility]/HCC) HTN (hypertension) PSH: History reviewed. No pertinent [...] Self Care/Home Management (ADLs) Time Entry: 45 [id number] -Pt in supine upon arrival, agreeable to [...] alarm on and call noriega in reach, [phone] Pt donned sneakres with overall partial A [...] Problems (Active) Template: Occupational Therapy Problem: OT Correction Goals Dates: Start: 04/20/24 Goal: Pt will [...] 121 RICHIE Lucas Progressing Goal: Pt will perform [...] Resolved: 05/03/24 Outcomes Date/Time User Outcome 05/03/24 140Angei Gray OT Completed Goal: Pt will perform [...] Language Pathology Speech Language Pathology Treatment Subjective PERSONNEL MONITOR Start Time: 1555 PERSONNEL MONITOR Stop Time: 1625 PERSONNEL MONITOR Time Calculation (min): 30 min Subjective: Cooperative and pleasant. bull chain operator Ty # [id number] utilized. Objective General Visit Info General Family/Caregiver Present: No Treatment Speech and Language Speech Treatment (Individual) Time Entry: 20 Speech: Pt tasked with orally reading multisyllabic cards: per internet marketer Pt 93% intelligible w/ use of loud volume and exaggerated speech, increasing to 100% intelligible with one repetition of each word. During informal conversation, internet marketer requesting x2 repetitions overall. Pt reporting to this designer/writer her speech is 95-100% back to baseline. [...] when standing up to regain balance. Assessment/Plan PERSONNEL MONITOR Assessment Evaluation/Treatment Tolerance: Patient tolerated treatment well Plan Treatment/Interventions: Cognitive linguistic functioning, Motor speech therapy PERSONNEL MONITOR Plan: Skilled PERSONNEL MONITOR PERSONNEL MONITOR Frequency: 5-7 days per week PERSONNEL MONITOR Duration of Sessions: 30-60 min per session PERSONNEL MONITOR Treatments per day: 1 time per day PERSONNEL MONITOR - Next Appointment: 05/22/24 Goals Encounter Problems [...] Description: Outcomes Date/Time User Outcome 05/15/24 1522 Sherri O'Fairbanks, PERSONNEL MONITOR Completed Goal: Pt will complete basic to [...] Date/Time User Outcome 05/21/24 162MARIE Griffin Progressing Encounter Problems (Resolved) Template: Speech Therapy [...] PM. Learner: Patient Readiness: Acceptance Method: Explanation, Catering Operations Manager Response: Verbalizes Understanding, Demonstrated Understanding Education Comments No comments found. Associated attestation - Jen Duque SLP - 05/21/2024 9:32 PM EST I attest that I, Amber Duque M.S.,[facility]-PERSONNEL MONITOR, was physically involved in the ongoing assessment, [...] a 48 y.o. female : 1975 MR#: [id number] SUBJECTIVE No complaints No increased weakness patient [...] dimensions are difficult to quantify but a sales representative advertising measurement on image 21 of series 3 is 1.2 x 0.5 cm. On images 22-23 of series 3 is an area of restricted diffusion in the midline and right paracentral region of the srinivas, also compatible with an acute infarct. This is also difficult to accurately measure but a sales representative advertising measurement on image 22 is approximately 9 [...] Suspect secondary to intrinsic atherosclerotic disease likely direct marketing analyst now occluded CTA shows right V4 high-grade [...] Tellez, OT - 05/21/2024 12:30 PM EST [facility] Occupational Therapy Treatment Note 05/21/24 Patient: Amalia Ann : 1975 Age: 48 y.o. Gender: female Diagnosis: No Principal Problem: There is no principal problem currently on the Problem List. Please update the Problem List and refresh. Primary Rehab (Etiologic) Diagnosis: Patient Active Problem List Diagnosis HTN (hypertension) DM (diabetes mellitus) ([facility]) CVA (cerebral vascular accident) ([facility]) PMH: Past Medical History: Diagnosis Date CVA (cerebral vascular accident) ([facility]/HCC) DM (diabetes mellitus) ([facility]) HTN (hypertension) PSH: History reviewed. No pertinent [...] supine upon arrival, agreeable to participation. Video Palauan><bull chain operator utilized throughout (#[id number]). Elevated supine>Sit EOB mod I. Seated EOB [...] will be home 05/12 to be pt's INSIDE SALES SUPERVISOR. Dicussed removal of throw rugs around home [...] Problems (Active) Template: Occupational Therapy Problem: OT Correction Goals Dates: Start: 04/20/24 Goal: Pt will [...] Rebecca Tellez OT Progressing Goal: Pt will perform bathing with Steadying A for balance. Dates: Start: 05/15/24 Expected End: 05/22/24 Outcomes Date/Time User Outcome 05/17/24 Rebecca Tellez OT Progressing Goal: Pt will utilize L UE gross assist during oral hygiene tasks. Dates: Start: 05/15/24 Expected End: 05/22/24 Outcomes Date/Time User Outcome 05/17/24 Rebecca Tellez OT Progressing Encounter Problems (Resolved) Template: [...] Outcomes Date/Time User Outcome 05/03/24 1407 Albina M Marina, OT Completed Education Documentation Skin Care/Pressure Ulcer [...] EST Received voicemail from Gladys TAO at [facility]. Appointment on 05/29 at 11am cannot be rescheduled per Dr. Reynoso. Pt is currently in a study and will need to be seen. Dr. Bailey notified. Will book [employer] wheel chair van transportation to appointment. Wheel Chair Van booked with [employer]. supervisor machine workers 10:15am on 05/29. Return Drop off 12:30pm. Trip #[id number]. * BRAD Chaudhari - 05/21/2024 11:32 AM EST Images from the original note were not included. [facility] Daily Progress Note Patient name: Amalia [...] Daily, Leah Philippe NP, 2,000 Units at 05/21/24 0816 clopidogreL (PLAVIX) tablet 75 mg, 75 mg, [...] g, 30 g, oral, q15 min PRN, RBAD Hicks enoxaparin (LOVENOX) injection 40 mg, 40 mg, subcutaneous, q24h KATIE, Leah Philippe NP, 40 mg at 05/21/24 [...] care -secondary to CVA -continue PT, OT, PERSONNEL MONITOR, and nursing care #Acute anterior right pontine [...] also reached out to Dr Reynoso at [facility] to inform of changes in neurostatus --> no response from Dr Reynoso, MRI brain 05/10 redemonstrated prior known infarcts -continue therapies -f/u Neurology after discharge #Dysphagia -regular diet with thin liquids -continue PERSONNEL MONITOR #Hypertension -Lisinopril 10mg daily increased to 20mg [...] Garcia, PT - 05/21/2024 8:51 AM EST [facility] Physical Therapy Treatment Note 05/21/2024 Patient: Amalia Ann : 1975 Age: 48 y.o. Gender: female Primary Language: Argentine Diagnosis: No Principal Problem: There is no principal problem currently on the Problem List. Please update the Problem List and refresh. Past Medical History: Diagnosis Date CVA (cerebral vascular accident) ([facility]/HCC) DM (diabetes mellitus) ([facility]) HTN (hypertension) History reviewed. No pertinent surgical [...] completed stand pivot trasnfer steadying assistance. Video internet marketer [id number] used for therapy session. Pt completed WC [...] of ambulation with partial A x1 and TELEMARKETER SUPERVISOR x1, pt with step through pattern, increased [...] 9:28 AM. Learner: Patient Readiness: Acceptance Method: Catering Operations Manager, Explanation, Demonstration Response: Demonstrated Understanding, Verbalizes Understanding [...] Problems (Active) Template: Physical Therapy Problem: PT Correction Goals Dates: Start: 04/20/24 Goal: mod I [...] Therapy PT Individual: 90 * Shayy Sanchez, PERSONNEL MONITOR - 05/20/2024 3:35 PM EST Speech Language Pathology Speech Language Pathology Treatment Subjective PERSONNEL MONITOR Start Time: 1535 PERSONNEL MONITOR Stop Time: 1605 PERSONNEL MONITOR Time Calculation (min): 30 min Subjective: Cooperative and pleasant. bull chain operator Soo #[id number] utilized. Objective General Visit Info General Family/Caregiver [...] difficulty with time related math problems. Assessment/Plan PERSONNEL MONITOR Assessment Evaluation/Treatment Tolerance: Patient tolerated treatment well Plan Treatment/Interventions: Cognitive linguistic functioning PERSONNEL MONITOR Plan: Skilled PERSONNEL MONITOR PERSONNEL MONITOR Frequency: 5-7 days per week PERSONNEL MONITOR Duration of Sessions: 30-60 min per session PERSONNEL MONITOR Treatments per day: 1 time per day PERSONNEL MONITOR - Next Appointment: 05/21/24 Goals Encounter Problems [...] Outcomes Date/Time User Outcome 04/23/24 1253 Shayy Sanchez PERSONNEL MONITOR Completed Education Documentation No documentation found. Education Comments No comments found. Associated attestation - Jen Duque SLP - 05/20/2024 4:34 PM EST I attest that I, Amber Duque M.S.,[facility]-PERSONNEL MONITOR, was physically involved in the ongoing assessment, [...] bedside to review post team recommendations. Utilized [employer] Catering Operations Manager #[id number]. Pt making steady progress with therapy. Pt is a tentative discharge home on 05/31/24. Received call from [facility], pt has been approved through [place]. Pt will discharge home with [facility] for RN PT and OT. No PERSONNEL MONITOR available at home due to insurance. Pt will require MART transportation home and to all follow up appointments. Pt in agreement to have all medications filled at [facility] due to limited support on DC. Pt reports her boyfriend does drive but is not supposed to be. Family training scheduled for 05/27.Pt had no questions or concerns at this time. Pt in agreement with DC plan. Pt has Neurology appointment on 05/29/24. Per Dr. Bailey, appointment can be rescheduled until after DC. Appointment rescheduled for next available. * Albina Gray, OT - 05/20/2024 12:30 PM EST [facility] Occupational Therapy Treatment Note 05/20/24 Patient: [...] (cerebral vascular accident) (CMS/HCC) DM (diabetes mellitus) (CMS/[facility]) HTN (hypertension) PSH: History reviewed. No pertinent [...] vitals assessed. Agreeable to participate in session. Catering Operations Manager utilized throughout session: [id number]. Supine to EOB S level. Pivot to [...] w/c level with chair alarm on, call bellin place and needs met. OT Assessment OT [...] Problems (Active) Template: Occupational Therapy Problem: OT Correction Goals Dates: Start: 04/20/24 Goal: Pt will [...] Expected End: 05/18/24 Outcomes Date/Time User Outcome 12/7 RICHIE Lucas Progressing Goal: Pt will be [...] User Outcome 05/17/24 Rebecca Tellez OT Progressing Encounter Problems (Resolved) Template: [...] Learner: Patient Readiness: Acceptance Method: Explanation, Demonstration, Catering Operations Manager Response: Verbalizes Understanding, Needs Reinforcement Home Exercise Program, taught by Albina Gray OT at 05/20/2024 2:33 PM. Learner: Patient Readiness: Acceptance Method: Explanation, Demonstration, Catering Operations Manager Response: Verbalizes Understanding, Needs Reinforcement Body Mechanics, taught by Albina Gray OT at 05/20/2024 2:33 PM. Learner: Patient Readiness: Acceptance Method: Explanation, Demonstration, Catering Operations Manager Response: Verbalizes Understanding, Needs Reinforcement Education Comments No comments found. Start/Stop Time OT Time Calculation OT Start Time: 1230 OT Stop Time: 1400 OT Time Calculation (min): 90 min Therapy Minutes: Occupational Therapy OT Individual: 90 * Neida Bailey DO - 05/20/2024 10:25 AM EST Images from the original note were not included. [facility] Daily Progress Note Patient name: Amalia [...] 1,000 mcg, 1,000 mcg, intramuscular, Daily, Leah hPilippe NP, 1,000 mcg at 05/20/24 0834 [START [...] care -secondary to CVA -continue PT, OT, PERSONNEL MONITOR, and nursing care #Acute anterior right pontine [...] also reached out to Dr Reynoso at [facility] to inform of changes in neurostatus --> no response from Dr Reynoso, MRI brain 05/10 redemonstrated prior known infarcts -continue therapies -f/u Neurology after discharge #Dysphagia -regular diet with thin liquids -continue PERSONNEL MONITOR #Hypertension -Lisinopril 10mg daily increased to 20mg [...] #DVT prophylaxis: Lovenox 40mg daily * Elzbieta Garcia PT - 05/20/2024 9:51 AM EST [facility] Physical Therapy Treatment Note 05/20/2024 Patient: Amalia Ann : 1975 Age: 48 y.o. Gender: female Primary Language: Argentine Diagnosis: No Principal Problem: There is no principal problem currently on the Problem List. Please update the Problem List and refresh. Past Medical History: Diagnosis Date CVA (cerebral vascular accident) ([facility]) DM (diabetes mellitus) ([facility]) HTN (hypertension) History reviewed. No pertinent surgical [...] to therapy gym in WC, SUP. Video internet marketer [id number] usedfor therapy session. Therapist completing skin check [...] Learner: Patient Readiness: Acceptance Method: Demonstration, Explanation, Catering Operations Manager Response: Demonstrated Understanding, Verbalizes Understanding Comment: Dynamic [...] Problems (Active) Template: Physical Therapy Problem: PT Auditor Appraiser Goals Dates: Start: 04/20/24 Goal: mod I [...] Outcomes Date/Time User Outcome 05/20/24 1002 Elzbieta Garcia, PT Progressing Encounter Problems (Resolved) Template: Physical [...] Outcomes Date/Time User Outcome 05/20/24 1001 Elzbieta Garcia, PT Completed Goal: Pt will ambulate 25' [...] 8:40 AM EST Social Work Note Integrated Service Mechanic: DX: Adjustment DO: Met with patient this [...] a 48 y.o. female : 1975 MR#: [id number] SUBJECTIVE No complaints No increased weakness patient [...] dimensions are difficult to quantify but a sales representative advertising measurement on image 21 of series 3 is 1.2 x 0.5 cm. On images 22-23 of series 3 is an area of restricted diffusion in the midline and right paracentral region of the srinivas, also compatible with an acute infarct. This is also difficult to accurately measure but a sales representative advertising measurement on image 22 is approximately 9 [...] Suspect secondary to intrinsic atherosclerotic disease likely direct marketing analyst now occluded CTA shows right V4 high-grade [...] RICHIE Lucas - 05/18/2024 1:03 PM EST [facility] Occupational Therapy Treatment Note 05/18/24 Patient: Amalia Ann : 1975 Age: 48 y.o. Gender: female Diagnosis: No Principal Problem: There is no principal problem currently on the Problem List. Please update the Problem List and refresh. Primary Rehab (Etiologic) Diagnosis: Patient Active Problem List Diagnosis HTN (hypertension) DM (diabetes mellitus) ([facility]/HCC) CVA (cerebral vascular accident) (CMS/HCC) PMH: Past Medical History: Diagnosis Date CVA (cerebral vascular accident) (CMS/HCC) DM (diabetes mellitus) ([facility]/HCC) HTN (hypertension) PSH: History reviewed. No pertinent [...] Pt semi supine at start of session, internet marketer used, pt amenable to session. Vitals taken, [...] Problems (Active) Template: Occupational Therapy Problem: OT Correction Goals Dates: Start: 04/20/24 Goal: Pt will [...] Outcomes Date/Time User Outcome 05/17/24 1248 Joshua Tellez, OT Progressing Goal: Pt will perform LB dressing steadying A Dates: Start: 05/15/24 Expected End: 05/22/24 Outcomes Date/Time User Outcome 05/17/24 124Leo Tellez OT Progressing Goal: Pt will perform UB dressing with PETERSON Dates: Start: 05/15/24 Expected End: 05/22/24 Outcomes Date/Time User Outcome 05/17/24 Rebecca Tellez OT Progressing Goal: Pt will perform bathing with Steadying A for balance. Dates: Start: 05/15/24 Expected End: 05/22/24 Outcomes Date/Time User Outcome 05/17/24 Rebecca Tellez OT Progressing Goal: Pt will utilize L UE gross assist during oral hygiene tasks. Dates: Start: 05/15/24 Expected End: 05/22/24 Outcomes Date/Time User Outcome 05/17/24 Rebecca Tellez OT Progressing Encounter Problems (Resolved) Template: [...] 05/03/24 Outcomes Date/Time User Outcome 05/03/24 Susan Cailey, OT Completed Education Documentation ADL Training, taught by RICHIE Lucas at 05/18/2024 1:03 PM. Learner: Patient Readiness: Acceptance Method: Explanation, Demonstration, Catering Operations Manager Response: Verbalizes Understanding, Demonstrated Understanding Body Mechanics, taught by RICHIE Lucas at 05/18/2024 1:03 PM. Learner: Patient Readiness: Acceptance Method: Explanation, Demonstration, Catering Operations Manager Response: Verbalizes Understanding, Demonstrated Understanding Education Comments [...] a 48 y.o. female : 1975 MR#: [id number] SUBJECTIVE No complaints No further weakness Eating [...] Vitals: 05/17/24 0700 05/17/24 1550 05/18/24 0428 01/04/25 0728 BP: (!) 145/72 (!) 159/78 120/62 [...] dimensions are difficult to quantify but a sales representative advertising measurement on image 21 of series 3 is 1.2 x 0.5 cm. On images 22-23 of series 3 is an area of restricted diffusion in the midline and right paracentral region of the srinivas, also compatible with an acute infarct. This is also difficult to accurately measure but a sales representative advertising measurement on image 22 is approximately 9 [...] Suspect secondary to intrinsic atherosclerotic disease likely direct marketing analyst now occluded CTA shows right V4 high-grade [...] DVT prophylaxis Continue Lovenox FULL CODE * MARIE Arroyo - 05/17/2024 3:42 PM EST Speech Language Pathology Speech Language Pathology Treatment Subjective PERSONNEL MONITOR Start Time: 1430 PERSONNEL MONITOR Stop Time: 1530 PERSONNEL MONITOR Time Calculation (min): 60 min Subjective: Pt was alert and sitting upright in bed for the session. Pt reported fatigue from othertherapy session but was agreeable to session. bull chain operator Viridiana, #[id number], was used for thesession. Objective General Visit Info General Family/Caregiver Present: No Treatment Speech and Language Speech Treatment (Individual) Time Entry: 20 Speech: Pt was able to read paragraphs of an article w/ 85-100% inteiligiblity w/ aid from internet marketer. Pt reported that she feels like her [...] given min A for appropriate solutions. Assessment/Plan PERSONNEL MONITOR Assessment PERSONNEL MONITOR Assessment Results: Cognitive impairments Evaluation/Treatment Tolerance: Patient tolerated treatment well Plan Treatment/Interventions: Cognitive linguistic functioning PERSONNEL MONITOR Plan: Skilled PERSONNEL MONITOR PERSONNEL MONITOR Frequency: 5-7 days per week PERSONNEL MONITOR Duration of Sessions: 30-60 min per session [...] Outcomes Date/Time User Outcome 05/15/24 1515 Sherri Rendon PERSONNEL MONITOR Completed Goal: Patient will complete simple calculations [...] Outcomes Date/Time User Outcome 05/17/24 154MARIE Mcgill Progressing Goal: Pt will complete mod to [...] EST I attest that I, Amber Duque M.S.,[facility]-PERSONNEL MONITOR, was physically involved in the ongoing assessment, decision making, and interventions provided during today's patient care session. I have reviewed all documentation for today's 05/17/24, entered by Speech Therapy Fellow, Sherri Rendon, and furtherattest that it is an accurate clinical record of today's encounter, including accurate and appropriate charges. * Neida Bailey DO - 05/17/2024 2:54 PM EST Images from the original note were not included. [facility] Daily Progress Note Patient name: Amalia [...] injection 40 mg, 40 mg, subcutaneous, q24h [facility], Leah Philippe NP, 40 mg at 05/17/24 0847 glipiZIDE (GLUCOTROL) tablet 5 mg, 5 mg, oral, q AM , BRAD Viramontes, 5 mg at 05/17/24 0843 [...] care -secondary to CVA -continue PT, OT, PERSONNEL MONITOR, and nursing care #Acute anterior right pontine [...] also reached out to Dr Reynoso at [facility] to inform of changes in neurostatus --> no response from Dr Reynoso, MRI brain 05/10 redemonstrated prior known infarcts -continue therapies -f/u Neurology after discharge #Dysphagia -regular diet with thin liquids -continue PERSONNEL MONITOR #Hypertension -Lisinopril 10mg daily increased to 20mg [...] Garcia, PT - 05/17/2024 1:44 PM EST [facility] Physical Therapy Treatment Note 05/17/2024 Patient: Amalia Ann : 1975 Age: 48 y.o. Gender: female Primary Language: Argentine Diagnosis: No Principal Problem: There is no principal problem currently on the Problem List. Please update the Problem List and refresh. Past Medical History: Diagnosis Date CVA (cerebral vascular accident) (CMS/HCC) DM (diabetes mellitus) ([facility]) HTN (hypertension) History reviewed. No pertinent surgical [...] WC mobility down to therapy gym. Video internet marketer [id number] seen. Pt completed stand pivot transfers partial [...] needs met. Pt seen from 12:30-1:30pm. Video internet marketer [id number] used for therapy session. Steadying assistance for [...] x35ft of ambulation with partial A x1, TELEMARKETER SUPERVISOR x1 and WC follow, pt with step [...] bilat. LE s, pt sitting on this designer/writer, pt able to stand from this designer/writer, partial A x1. Therapist doffing AFO, skin [...] Problems (Active) Template: Physical Therapy Problem: PT Correction Goals Dates: Start: 04/20/24 Goal: mod I [...] End: 05/11/24 Outcomes Date/Time User Outcome 05/17/24 140Nahomy Garcia PT Progressing Problem: PT Short Term Goals Dates: Start: 04/20/24 Goal: Pt will perform bed mobility min A (Resolved) Dates: Start: 04/20/24 Expected End: 04/27/24 Resolved: 05/17/24 Outcomes Date/Time User Outcome 05/17/24 140Nahomy Garcia PT Completed Goal: Pt will transfer with min A Dates: Start: 04/20/24 Expected End: 04/27/24 Outcomes Date/Time User Outcome 05/17/24 140Nahomy Garcia PT Progressing Goal: Pt will ambulate 25' with LAD mod A Dates: Start: 04/20/24 Expected End: 04/27/24 Outcomes Date/Time User Outcome 05/17/24 140Nahomy Garcia PT Progressing Goal: Assess stairs as [...] 05/17/2024 Author: BRAD Viramontes Patient ID: Amalia Ann is a 48 y.o. female : 1975 MR#: [id number] SUBJECTIVE Patient seen. She has no specific [...] dimensions are difficult to quantify but a sales representative advertising measurement on image 21 of series 3 is 1.2 x 0.5 cm. On images 22-23 of series 3 is an area of restricted diffusion in the midline and right paracentral region of the srinivas, also compatible with an acute infarct. This is also difficult to accurately measure but a sales representative advertising measurement on image 22 is approximately 9 [...] Suspect secondary to intrinsic atherosclerotic disease likely direct marketing analyst now occluded CTA shows right V4 high-grade [...] to be low. For completeness recheck UA EXTENSION AGENT negative Clinically she does appear to be on the veneer drier feeder side -> recommended to continue to drink [...] prophylaxis Continue Lovenox FULL CODE * Joshua Tellez OT - 05/17/2024 7:00 AM EST [facility] Occupational Therapy Treatment Note 05/17/24 Patient: Amalia Ann : 1975 Age: 48 y.o. Gender: female Diagnosis: No Principal Problem: There is no principal problem currently on the Problem List. Please update the Problem List and refresh. Primary Rehab (Etiologic) Diagnosis: Patient Active Problem List Diagnosis HTN (hypertension) DM (diabetes mellitus) (CMS/HCC) CVA (cerebral vascular accident) ([facility]/HCC) PMH: Past Medical History: Diagnosis Date CVA (cerebral vascular accident) (CMS/HCC) DM (diabetes mellitus) ([facility]/HCC) HTN (hypertension) PSH: History reviewed. No pertinent [...] Pt continues to be limited by decreased resident care director strength during self care and Neuro re-ed. [...] Problems (Active) Template: Occupational Therapy Problem: OT Auditor Appraiser Goals Dates: Start: 04/20/24 Goal: Pt will [...] 05/16/2024 3:00 PM EST Phone call with Argentine><Palauan internet marketer ([id number]) placed to pt DAVIN Aebl, with PT Elzbieta and this therapist. Page updated on pt's current level of function with ADLs and anticipated level of function (Mod I w/c level). Page agreeable to come in for training/education closer to pt'sd/c date, MondayMay 27, at 7 AM. * Elzbieta Garcia, PT - 05/16/2024 2:54 PM EST [facility] Physical Therapy Treatment Note 05/16/2024 Patient: Amalia Ann : 1975 Age: 48 y.o. Gender: female Primary Language: Palauan Diagnosis: No Principal Problem: There is no principal problem currently on the Problem List. Please update the Problem List and refresh. Past Medical History: Diagnosis Date CVA (cerebral vascular accident) (CMS/HCC) DM (diabetes mellitus) ([facility]) HTN (hypertension) History reviewed. No pertinent surgical [...] agreeable to participating in therapy session. Video internet marketer [id number] Vipin used for therapy session. Pt giving this designer/writer permission to speak with Alejandro pt significant other to update on functional [...] Therapist placing phone call to Alejandro via [employer] internet marketer [id number] used with OT Caseypresent. Per Alejandro he will be able to assist pt up and down x4 FOS, and will be able to bring WC up and down stairs. Updated for anticipated goals of mod-I WC level. Family training planned for 05/27/2024. No further questions from Aeljandro. Education: Education Documentation Mobility Training, taught by [...] Problems (Active) Template: Physical Therapy Problem: PT Auditor Appraiser Goals Dates: Start: 04/20/24 Goal: mod I [...] 05/11/24 Outcomes Date/Time User Outcome 05/10/24 1208 Elzbietaluh Garcia PT Progressing Goal: up/dn 4 flights [...] the original note were not included. [facility] Daily Progress Note Patient name: Amalia [...] angle tenderness. Neurologic: left sided weakness, 3/5 resident care director strength Skin: No rashes or lesions. No [...] AC, Neida Bailey DO, 2 Units at 05/16/24 08 magnesium hydroxide (MILK OF MAGNESIA) 400 mg/5 mL suspension 30 mL, 30 mL, oral, Daily PRN, BRAD Rojas, 30 mL at 04/23/24 05 metFORMIN (GLUCOPHAGE) tablet 500 mg, 500 mg, oral, BID with meals, Leah Philippe NP, 500 mg at 05/16/24 08 traMADoL (ULTRAM) tablet 25 mg, 25 [...] 05/16/2024 Author: BRAD Viramontes Patient ID: Amalia Ann is a 48 y.o. female : 1975 MR#: [id number] SUBJECTIVE Patient seen. She reports that she [...] dimensions are difficult to quantify but a sales representative advertising measurement on image 21 of series 3 is 1.2 x 0.5 cm. On images 22-23 of series 3 is an area of restricted diffusion in the midline and right paracentral region of the srinivas, also compatible with an acute infarct. This is also difficult to accurately measure but a sales representative advertising measurement on image 22 is approximately 9 [...] Suspect secondary to intrinsic atherosclerotic disease likely direct marketing analyst now occluded CTA shows right V4 high-grade [...] continued Update labs For completeness recheck UA EXTENSION AGENT Clinically appears dry push fluids may explain [...] not walking follow focally FULL CODE * Sherri Rendon, MARIE - 05/16/2024 12:30 PM EST Speech Language Pathology Speech Language Pathology Treatment Subjective PERSONNEL MONITOR Start Time: 799 PERSONNEL MONITOR Stop Time: 899 PERSONNEL MONITOR Time Calculation (min): 60 min Subjective: Pt was alert and sitting upright in wheelchair for the session. Pt was pleasant and cooperative throughout the session. bull chain operator Bolivar Marrero, #[id number], was used for the session. Objective General [...] eleboration of reponses and appropriate solutions. Assessment/Plan PERSONNEL MONITOR Assessment PERSONNEL MONITOR Assessment Results: Cognitive impairments Evaluation/Treatment Tolerance: Patient tolerated treatment well Plan Treatment/Interventions: Cognitive linguistic functioning PERSONNEL MONITOR Plan: Skilled PERSONNEL MONITOR PERSONNEL MONITOR Frequency: 5-7 days per week PERSONNEL MONITOR Duration of Sessions: 30-60 min per session PERSONNEL MONITOR Treatments per day: 1 time per day Goals Encounter Problems Encounter Problems (Active) Template: Speech Therapy Problem: Cognitive/Linguistics Dates: Start: 04/20/24 Goal: Patient will participate in further assessment of cognitive-linguistic skills (Resolved) Dates: Start: 04/20/24 Expected End: 05/04/24 Resolved: 05/01/24 Description: Goal Type: STG, Performance Level: Independent Outcomes Date/Time User Outcome 05/01/24 0920 Shayy Sanchez, PERSONNEL MONITOR Completed Goal: Patient will identify and utilize problem-solving intervention for task completion at 90% accuracy given min A (Resolved) Dates: Start: 04/20/24 Expected End: 05/17/24 Resolved: 05/15/24 Description: Goal Type: STG, Performance Level: Min assist Outcomes Date/Time User Outcome 05/15/24 1965 Sherri Rendon, PERSONNEL MONITOR Completed Goal: Patient will complete simple calculations [...] Outcomes Date/Time User Outcome 05/16/24 114MARIE Nunes Not Progressing Goal: Pt will improve delayed recall of functional information given min A for encoding and indep. for retrieval - 90% accuracy Dates: Start: 05/15/24 Expected End: 05/22/24 Description: Outcomes Date/Time User Outcome 05/16/24 MARIE Galan Progressing Goal: Pt will improve higher level problem-solving/reasoning skills to 90% with min A. Dates: Start: 05/15/24 Expected End: 05/22/24 Description: Outcomes Date/Time User Outcome 05/16/24 MARIE Galan Progressing Encounter Problems (Resolved) Template: Speech Therapy [...] PM. Learner: Patient Readiness: Acceptance Method: Explanation, Catering Operations Manager Response: Verbalizes Understanding Cognition, taught by MARIE Arroyo at 05/16/2024 12:30 PM. Learner: Patient Readiness: Acceptance Method: Explanation, Catering Operations Manager Response: Verbalizes Understanding Education Comments No comments found. Associated attestation - Jen Duque SLP - 05/16/2024 12:44 PM EST I attest that I, Amber Duque M.S.,[facility]-PERSONNEL MONITOR, was physically involved in the ongoing assessment, decision making, and interventions provided during today's patient care session. I have reviewed all documentation for today's 05/16/24, entered by Speech Therapy Fellow, Sherri Rendon, and furtherattest that it is an accurate clinical record of today's encounter, including accurate and appropriate charges. * Joshua Tellez, OT - 05/16/2024 10:00 AM EST [facility] Occupational Therapy Treatment Note 05/16/24 Patient: Amalia Ann : 1975 Age: 48 y.o. Gender: female Diagnosis: No Principal Problem: There is no principal problem currently on the Problem List. Please update the Problem List and refresh. Primary Rehab (Etiologic) Diagnosis: Patient Active Problem List Diagnosis HTN (hypertension) DM (diabetes mellitus) ([facility]) CVA (cerebral vascular accident) ([facility]) PMH: Past Medical History: Diagnosis Date CVA (cerebral vascular accident) (CMS/HCC) DM (diabetes mellitus) ([facility]) HTN (hypertension) PSH: History reviewed. No pertinent [...] Problems (Active) Template: Occupational Therapy Problem: OT Correction Goals Dates: Start: 04/20/24 Goal: Pt will [...] Individual: 90 * Isi Varghese RN - 05/16/2024 1:59 AM EST Problem: Cognitive: Catrachita Kaiser Fall [...] Bed locked/low. Call noriega within reach. * Sherri Rendon, PERSONNEL MONITOR - 05/15/2024 3:27 PM EST Speech Language Pathology Speech Language Pathology Treatment Subjective PERSONNEL MONITOR Start Time: 829 PERSONNEL MONITOR Stop Time: 934 PERSONNEL MONITOR Time Calculation (min): 65 min Subjective: Pt was alert and sitting upright in bed for the session. Pt was pleasant and cooperative throughout the session. bull chain operator [facility], #[id number], was used for the session. Objective General [...] Clock Drawing Severity Rating 9 moderate Assessment/Plan PERSONNEL MONITOR Assessment PERSONNEL MONITOR Assessment Results: Cognitive impairments Evaluation/Treatment Tolerance: Patient tolerated treatment well Plan Treatment/Interventions: Cognitive linguistic functioning PERSONNEL MONITOR Plan: Skilled PERSONNEL MONITOR PERSONNEL MONITOR Frequency: 5-7 days per week PERSONNEL MONITOR Duration of Sessions: 30-60 min per session PERSONNEL MONITOR Treatments per day: 1 time per day PERSONNEL MONITOR - Next Appointment: 05/16/24 Goals Encounter Problems Encounter Problems (Active) Template: Speech Therapy Problem: Cognitive/Linguistics Dates: Start: 04/20/24 Goal: Patient will participate in further assessment of cognitive-linguistic skills (Resolved) Dates: Start: 04/20/24 Expected End: 05/04/24 Resolved: 05/01/24 Description: Goal Type: STG, Performance Level: Independent Outcomes Date/Time User Outcome 05/01/24 0920 Shayy Sanchez, PERSONNEL MONITOR Completed Goal: Patient will identify and utilize problem-solving intervention for task completion at 90% accuracy given min A (Resolved) Dates: Start: 04/20/24 Expected End: 05/17/24 Resolved: 05/15/24 Description: Goal Type: STG, Performance Level: Min assist Outcomes Date/Time User Outcome 05/15/24 1515 Sherri Rendon, PERSONNEL MONITOR Completed Goal: Patient will complete simple calculations [...] 05/15/24 Description: Outcomes Date/Time User Outcome 05/15/24 Ekaterina2 MARIE Arroyo Completed Goal: Pt will complete [...] 05/17/24 Description: Outcomes Date/Time User Outcome 05/14/24 MARIE Tang Not Progressing Goal: Pt will improve intelligibility at the paragraph/conversational level to baseline and independent w/ use of strategies Dates: Start: 04/26/24 Expected End: 05/22/24 Description: Outcomes Date/Time User Outcome 05/14/24 105MARIE Mcgill Not Progressing Goal: Pt will complete mod [...] EST I attest that I, Amber Duque M.S.,[facility]-PERSONNEL MONITOR, was physically involved in the ongoing assessment, decision making, and interventions provided during today's patient care session. I have reviewed all documentation for today's 05/15/24, entered by Speech Therapy Fellow, Sherri Rendon, and furtherattest that it is an accurate clinical record of today's encounter, including accurate and appropriate charges. * Joshua Michalowski, OT - 05/15/2024 12:30 PM EST [facility] Occupational Therapy Treatment Note 05/15/24 Patient: Amalia Ann : 1975 Age: 48 y.o. Gender: female Diagnosis: No Principal Problem: There is no principal problem currently on the Problem List. Please update the Problem List and refresh. Primary Rehab (Etiologic) Diagnosis: Patient Active Problem List Diagnosis HTN (hypertension) DM (diabetes mellitus) ([facility]/HCC) CVA (cerebral vascular accident) ([facility]) PMH: Past Medical History: Diagnosis Date CVA (cerebral vascular accident) ([facility]) DM (diabetes mellitus) ([facility]) HTN (hypertension) PSH: History reviewed. No pertinent [...] Problems (Active) Template: Occupational Therapy Problem: OT Auditor Appraiser Goals Dates: Start: 04/20/24 Goal: Pt will be mod I with LB dressing Dates: Start: 04/20/24 Expected End: 05/18/24 Outcomes Date/Time User Outcome 05/12/24 8847 RICHIE Lucas Progressing Goal: Pt will be [...] 1407 Albina Gray OT Completed Education Documentation Activity/Positioning, taught by [...] Garcia, PT - 05/15/2024 10:43 AM EST [facility] Physical Therapy Treatment Note 05/15/2024 Patient: Amalia Ann : 1975 Age: 48 y.o. Gender: female Primary Language: Argentine Diagnosis: No Principal Problem: There is no principal problem currently on the Problem List. Please update the Problem List and refresh. Past Medical History: Diagnosis Date CVA (cerebral vascular accident) ([facility]) DM (diabetes mellitus) ([facility]) HTN (hypertension) History reviewed. No pertinent surgical [...] agreeable to participating in therapy session. Video internet marketer [id number]. Therapist performing skin check on LLE, skin [...] Pt dep brought back to room in . Pt left seated in WC, call noriega [...] Problems (Active) Template: Physical Therapy Problem: PT Auditor Appraiser Goals Dates: Start: 04/20/24 Goal: mod I bed mobility Dates: Start: 04/20/24 Expected End: 05/11/24 Outcomes Date/Time User Outcome 05/10/24 1208 Elzbieta Garcia, TAD Progressing Goal: mod I transfers with LAD [...] Garcia PT - 05/14/2024 2:09 PM EST [facility] Physical Therapy Treatment Note 05/14/2024 Patient: Amalia Ann : 1975 Age: 48 y.o. Gender: female Primary Language: Argentine Diagnosis: No Principal Problem: There is no principal problem currently on the Problem List. Please update the Problem List and refresh. Past Medical History: Diagnosis Date CVA (cerebral vascular accident) (CMS/HCC) DM (diabetes mellitus) (CMS/[facility]) HTN (hypertension) History reviewed. No pertinent surgical [...] Re-Education Neuromuscular Re-Education Time Entry: 90 Video internet marketer [id number] used for therapy session. Patient in Wheelchair agreeable to participating in therapy session. Pt completed stand pivot transfer to WC, partial A x1. Pt dep. Brought down [...] 2:25 PM. Learner: Patient Readiness: Acceptance Method: Catering Operations Manager, Explanation, Demonstration Response: Verbalizes Understanding, Demonstrated Understanding [...] Problems (Active) Template: Physical Therapy Problem: PT Correction Goals Dates: Start: 04/20/24 Goal: mod I [...] 12:20 PM EST Social Work Note Integrated Service Mechanic: DX: Adjustment DO: Met with patient this [...] Language Pathology Speech Language Pathology Treatment Subjective PERSONNEL MONITOR Start Time: 1015 PERSONNEL MONITOR Stop Time: 1115 PERSONNEL MONITOR Time Calculation (min): 60 min Subjective: Pt was alert and sitting upright in bed for the session. Pt was pleasant and cooperative throughout the session. bull chain operator P[employer], #[id number], was used for the session. Objective General Visit Info General Family/Caregiver Present: No Treatment Speech and Language Speech Treatment (Individual) Time Entry: 15 Verbal Expression: Pt reviewed the speech strategies. Pt was able to describe pictures w/ 70-70% inteliligiblity, internet marketer required repetition in 4/7 trials. Pt engaged [...] participate in re-assessment in next session Assessment/Plan PERSONNEL MONITOR Assessment PERSONNEL MONITOR Assessment Results: Cognitive impairments Evaluation/Treatment Tolerance: Patient tolerated treatment well Plan Treatment/Interventions: Cognitive linguistic functioning PERSONNEL MONITOR Plan: Skilled PERSONNEL MONITOR PERSONNEL MONITOR Frequency: 5-7 days per week PERSONNEL MONITOR Duration of Sessions: 30-60 min per session PERSONNEL MONITOR - Next Appointment: 05/15/24 Goals Encounter Problems Encounter Problems (Active) Template: Speech Therapy Problem: Cognitive/Linguistics Dates: Start: 04/20/24 Goal: Patient will participate in further assessment of cognitive-linguistic skills (Resolved) Dates: Start: 04/20/24 Expected End: 05/04/24 Resolved: 05/01/24 Description: Goal Type: STG, Performance Level: Independent Outcomes Date/Time User Outcome 05/01/24 0920 Shayy Sanchez, PERSONNEL MONITOR Completed Goal: Patient will identify and utilize [...] 05/15/24 Description: Outcomes Date/Time User Outcome 05/14/24 105MARIE Mcgill Not Progressing Goal: Pt will complete mod [...] EST I attest that I, Amber Duque M.S.,[facility]-PERSONNEL MONITOR, was physically involved in the ongoing assessment, decision making, and interventions provided during today's patient care session. I have reviewed all documentation for today's 05/14/24, entered by Speech Therapy Fellow, Sherri Rendon, and further attest that it is an accurate clinical record of today's encounter, including accurate and appropriate charges. * Joshua Tellez OT - 05/14/2024 8:30 AM EST [facility] Occupational Therapy Treatment Note 05/14/24 Patient: [...] to participation. Vitals assessed, see above. Video Argentine><Palauan internet marketer utilized #[id number]. Pt attempted to don sock with use [...] Problems (Active) Template: Occupational Therapy Problem: OT Auditor Appraiser Goals Dates: Start: 04/20/24 Goal: Pt will [...] Outcome 05/12/24RICHIE Guerin Progressing Goal: Pt will be mod I with snack/beverage retrieval at LRAD Dates: Start: 04/20/24 Expected End: 05/18/24 Description: Outcomes Date/Time User Outcome 05/12/241216 RICHIE Lucas Encounter Problems (Resolved) Template: Occupational Therapy Problem: [...] bedside to review post team recommendations. Utilized Preschool Lead Teacher #[id number]. Due to increase in weakness last week. [...] time. Insurance update due 05/16. * Joshua Tellez OT - 05/13/2024 12:30 PM EST [facility] Occupational Therapy Treatment Note 05/13/24 Patient: Amalia Ann : 1975 Age: 48 y.o. Gender: female Diagnosis: No Principal Problem: There is no principal problem currently on the Problem List. Please update the Problem List and refresh. Primary Rehab (Etiologic) Diagnosis: Patient Active Problem List Diagnosis HTN (hypertension) DM (diabetes mellitus) ([facility]/HCC) CVA (cerebral vascular accident) ([facility]) PMH: Past Medical History: Diagnosis Date CVA (cerebral vascular accident) ([facility]) DM (diabetes mellitus) ([facility]) HTN (hypertension) PSH: History reviewed. No pertinent [...] supine upon arrival, agreeable to participation, Video Palauan ><Argentine videointerpreter utilized throughout. Pt consoled as pt [...] Problems (Active) Template: Occupational Therapy Problem: OT Auditor Appraiser Goals Dates: Start: 04/20/24 Goal: Pt will [...] Occupational Therapy OT Individual: 90 * Penelope Bob RD - 05/13/2024 12:24 PM EST 05/13/2024 [...] History: Diagnosis Date CVA (cerebral vascular accident) ([facility]) DM (diabetes mellitus) ([facility]) HTN (hypertension) History reviewed. No pertinent surgical history. admitted 04/19/2024 with No Principal Problem: There is no principal problem currently on the Problem List. Please update the Problem List and refresh.. Weight History: Wt Readings from Last 10 Encounters: 05/04/24 70.2 kg (154 lb 12.8 oz) Subjective Assessment: PO intake since last visit remains adequate- consuming 75-100% of most meals per therapist asst. POCs well controlled. Last BM 05/12. Nutrition-Related [...] fluid per day. Total Energy Estimated Needs: 8579-3143 kcal (20-25 kcal/kg actual weight), 70 g protein (1 g/kg actual weight), 4544-9410 mL (25-30 mL/kg actual weight) Height: 158 cm (62.21 ) Temp: 36.3 ??C (97.3 ??F) Food/Nutrition-Current Status: Intake Type: P.O. Appetite: Good Intake Amount (%): 75-100% Intake Assessment: Adequate Nutrition Focused Physical Findings: Overall Appearance: Unable to assess as pt in room with therapist with door closed Skin: No skin breakdown noted per seed analyst Fluid Accumulation/Edema: Generalized (per therapist asst) Nutrition Diagnosis: Code Type: None Identified Status: [...] and Carbohydrate Controlled diet- handouts provided in ukrainian. Please refer to education note for details [...] Meyer PTA - 05/13/2024 11:56 AM EST [facility] Physical Therapy Treatment Note 05/13/2024 Patient: Amalia Ann : 1975 Age: 48 y.o. Gender: female Primary Language: ukrainian Diagnosis: No Principal Problem: There is no [...] Problems (Active) Template: Physical Therapy Problem: PT Auditor Appraiser Goals Dates: Start: 04/20/24 Goal: mod I [...] Elzbieta Garcia, PT Progressing Goal: Pt will transfer with [...] from the original note were not included. [facility] PROGRESS NOTE Date: 05/13/2024 Author: Leah Philippe NP Patient ID: Amalia Ann is a 48 y.o. female : 1975 MR#: [id number] SUBJECTIVE Denies increased weakness Not using pain [...] dimensions are difficult to quantify but a sales representative advertising measurement on image 21 of series 3 is 1.2 x 0.5 cm. On images 22-23 of series 3 is an area of restricted diffusion in the midline and right paracentral region of the srinivas, also compatible with an acute infarct. This is also difficult to accurately measure but a sales representative advertising measurement on image 22 is approximately 9 [...] Suspect secondary to intrinsic atherosclerotic disease likely direct marketing analyst now occluded CTA shows right V4 high-grade [...] MD Leah Villasenor MS, CFNP * MARIE Shretsha - 05/13/2024 9:40 AM EST Speech Language Pathology Speech Language Pathology Treatment Subjective PERSONNEL MONITOR Start Time: 939 PERSONNEL MONITOR Stop Time: 1009 PERSONNEL MONITOR Time Calculation (min): 30 min Subjective: Cooperative and pleasant. bull chain operator Ana #[id number] utilized. Objective General Visit Info General Family/Caregiver [...] HW task: min A for corrections. Assessment/Plan PERSONNEL MONITOR Assessment Evaluation/Treatment Tolerance: Patient tolerated treatment well Plan Treatment/Interventions: Cognitive linguistic functioning PERSONNEL MONITOR Plan: Skilled PERSONNEL MONITOR PERSONNEL MONITOR Frequency: 5-7 days per week PERSONNEL MONITOR Duration of Sessions: 30-60 min per session PERSONNEL MONITOR Treatments per day: 1 time per day PERSONNEL MONITOR - Next Appointment: 05/14/24 Goals Encounter Problems [...] AM. Learner: Patient Readiness: Eager Method: Explanation, Catering Operations Manager Response: Verbalizes Understanding Education Comments No comments found. Associated attestation - Jen Duque SLP - 05/13/2024 4:42 PM EST I attest that I, Amber Duque M.S.,[facility]-PERSONNEL MONITOR, was physically involved in the ongoing assessment, [...] the original note were not included. [facility] Daily Progress Note Patient name: Amalia [...] angle tenderness. Neurologic: left sided weakness, 3/5 resident care director strength Skin: No rashes or lesions. No [...] Nightly, BRAD Hicks, 80 mg at 05/12/24 2101 clopidogreL (PLAVIX) tablet 75 mg, 75 [...] KATIE, Leah Philippe NP, 40 mg at 05/13/24 [...] AC, Neida Bailey DO, 2 Units at 05/11/24 0816 magnesium [...] - 05/13/2024 2:50 AM EST Problem: Cognitive: Catrachita Kaiser Fall Risk Goal: Mobility requiring assistance of [...] prn safety checks maintained. * Mika Amaya, WOVEN BLIND LOOM TENDER - 05/12/2024 4:15 PM EST [facility] Physical Therapy Treatment Note 05/12/2024 Patient: Amalia Ann : 1975 Age: 48 y.o. Gender: female Primary Language: Argentine Diagnosis: No Principal Problem: There is no principal problem currently on the Problem List. Please update the Problem List and refresh. Past Medical History: Diagnosis Date CVA (cerebral vascular accident) ([facility]/HCC) DM (diabetes mellitus) ([facility]) HTN (hypertension) History reviewed. No pertinent surgical [...] Problems (Active) Template: Physical Therapy Problem: PT Auditor Appraiser Goals Dates: Start: 04/20/24 Goal: mod I [...] Description: Outcomes Date/Time User Outcome 05/06/24 1038 Elzbietacollin Garcia, PT Completed Encounter Problems (Resolved) There are no resolved problems. Session Start/Stop Time: 1230 1400 Therapy Minutes Physical Therapy PT Individual: 90 * Elisha McclellanRICHIE gillis - 05/12/2024 12:18 PM EST [facility] Occupational Therapy Treatment Note 05/12/24 Patient: [...] (cerebral vascular accident) (CMS/HCC) DM (diabetes mellitus) ([facility]) HTN (hypertension) PSH: History reviewed. No pertinent [...] supine asleep at start of session. Video internet marketer used, pt amenable to therapy a this [...] Problems (Active) Template: Occupational Therapy Problem: OT Correction Goals Dates: Start: 04/20/24 Goal: Pt will [...] Date/Time User Outcome 05/12/247 RICHIE Lucas Progressing Encounter Problems (Resolved) Template: [...] Learner: Patient Readiness: Acceptance Method: Explanation, Demonstration, Catering Operations Manager Response: Verbalizes Understanding, Demonstrated Understanding, Needs Reinforcement Home Exercise Program, taught by RICHIE Lucas at 05/12/2024 12:18 PM. Learner: Patient Readiness: Acceptance Method: Explanation, Demonstration, Catering Operations Manager Response: Verbalizes Understanding, Demonstrated Understanding, Needs Reinforcement Body Mechanics, taught by RICHIE Lucas at 05/12/2024 12:18 PM. Learner: Patient Readiness: Acceptance Method: Explanation, Demonstration, Catering Operations Manager Response: Verbalizes Understanding, Demonstrated Understanding, Needs Reinforcement Education Comments No comments found. Start/Stop Time OT Time Calculation OT Start Time: 0900 OT Stop Time: 1000 OT Time Calculation (min): 60 min Therapy Minutes: Occupational Therapy OT Individual: 60 * MARIE Shrestha - 05/12/2024 12:00 PM EST Speech Language Pathology Speech Language Pathology Treatment Subjective PERSONNEL MONITOR Start Time: 1200 PERSONNEL MONITOR Stop Time: 1230 PERSONNEL MONITOR Time Calculation (min): 30 min Subjective: Cooperative and pleasant. bull chain operator Marla #[id number] utilized. Objective General Visit Info Treatment Cognitive [...] task: completing target words/phrases with blanks. Assessment/Plan PERSONNEL MONITOR Assessment Evaluation/Treatment Tolerance: Patient tolerated treatment well Plan Treatment/Interventions: Cognitive linguistic functioning PERSONNEL MONITOR Plan: Skilled PERSONNEL MONITOR PERSONNEL MONITOR Frequency: 5-7 days per week PERSONNEL MONITOR Duration of Sessions: 30-60 min per session PERSONNEL MONITOR Treatments per day: 1 time per day PERSONNEL MONITOR - Next Appointment: 05/13/24 Goals Encounter Problems [...] PM. Learner: Patient Readiness: Eager Method: Explanation, Catering Operations Manager, Demonstration Response: Verbalizes Understanding Education Comments No comments found. Associated attestation - Jen Duque SLP - 05/12/2024 9:34 PM EST I attest that I, Amber Duque M.S.,[facility]-PERSONNEL MONITOR, was physically involved in the ongoing assessment, [...] a 48 y.o. female : 1975 MR#: [id number] SUBJECTIVE Patient denies any increased weakness Patient [...] dimensions are difficult to quantify but a sales representative advertising measurement on image 21 of series 3 is 1.2 x 0.5 cm. On images 22-23 of series 3 is an area of restricted diffusion in the midline and right paracentral region of the srinivas, also compatible with an acute infarct. This is also difficult to accurately measure but a sales representative advertising measurement on image 22 is approximately 9 [...] Suspect secondary to intrinsic atherosclerotic disease likely direct marketing analyst now occluded CTA shows right V4 high-grade [...] Leah Villasenor, MS, CFNP * Mika Amaya, WOVEN BLIND LOOM TENDER - 05/11/2024 4:22 PM EST [facility] Physical Therapy Treatment Note 05/11/2024 Patient: Amalia Ann : 1975 Age: 48 y.o. Gender: female Primary Language: Argentine Diagnosis: No Principal Problem: There is no principal problem currently on the Problem List. Please update the Problem List and refresh. Past Medical History: Diagnosis Date CVA (cerebral vascular accident) (CMS/HCC) DM (diabetes mellitus) ([facility]) HTN (hypertension) History reviewed. No pertinent surgical [...] Therapeutic Activities: Therapeutic Activity Time Entry: 60 Argentine video internet marketer used throughout session. Patient performed supine bilateral LE therex with [place] [employer] [place] assist for LLE as needed. Performed hip/knee [...] Problems (Active) Template: Physical Therapy Problem: PT Auditor Appraiser Goals Dates: Start: 04/20/24 Goal: mod I bed mobility Dates: Start: 04/20/24 Expected End: 05/11/24 Outcomes Date/Time User Outcome 05/10/24 Ambar Garcia PT Progressing Goal: mod I transfers [...] Outcome 05/10/24 120Leo Garcia PT Progressing Goal: Assess stairs as appropriate (Resolved) Dates: Start: 04/20/24 Expected End: 04/27/24 Resolved: 05/06/24 Outcomes Date/Time User Outcome 05/06/24 1038 Elzbieta Garcia, TAD Completed Goal: Supervision wc mobility and mgmt 150' (Resolved) Dates: Start: 04/20/24 Expected End: 04/27/24 Resolved: 05/06/24 Description: Outcomes Date/Time User Outcome 05/06/24 1038 Elzbieta Garcia PT Completed Encounter Problems (Resolved) There are no resolved problems. Session Start/Stop Time: 1030 1130 Therapy Minutes Physical Therapy PT Individual: 60 * Sherri Rendon, PERSONNEL MONITOR - 05/11/2024 1:03 PM EST Speech Language Pathology Speech Language Pathology Treatment Subjective PERSONNEL MONITOR Start Time: 1200 PERSONNEL MONITOR Stop Time: 1250 PERSONNEL MONITOR Time Calculation (min): 50 min Subjective: Pt [...] 84% accuracy indep. and reviewedHW w/ this designer/writer Cognitive Skills Comments: Per pt's request, pt was tasked w/ unscrambling words and identifying words in letters for HW Assessment/Plan PERSONNEL MONITOR Assessment PERSONNEL MONITOR Assessment Results: Cognitive impairments Evaluation/Treatment Tolerance: Patient tolerated treatment well Plan Treatment/Interventions: Cognitive linguistic functioning PERSONNEL MONITOR Plan: Skilled PERSONNEL MONITOR PERSONNEL MONITOR Frequency: 5-7 days per week PERSONNEL MONITOR Duration of Sessions: 30-60 min per session PERSONNEL MONITOR Treatments per day: 1 time per day PERSONNEL MONITOR - Next Appointment: 05/12/24 Goals Encounter Problems [...] 05/11/2024 5:06 PM EST I attest that Amber Rubin M.S.,CCC-PERSONNEL MONITOR, was physically involved in the ongoing assessment, decision making, and interventions provided during today's patient care session. I have reviewed all documentation for today's 05/11/24, entered by Speech Therapy Fellow, Sherri Rendon, and further attest that it is an accurate clinical record of today's encounter, including accurate and appropriate charges. * RICHIE Lucas - 05/11/2024 12:29 PM EST [facility] Occupational Therapy Treatment Note 05/11/24 Patient: [...] (cerebral vascular accident) (CMS/HCC) DM (diabetes mellitus) ([facility]) HTN (hypertension) PSH: History reviewed. No pertinent [...] at start of session, amenable to therapy. Catering Operations Manager used, see flow sheet. Vitals taken in [...] Problems (Active) Template: Occupational Therapy Problem: OT Correction Goals Dates: Start: 04/20/24 Goal: Pt will be mod I with LB dressing Dates: Start: 04/20/24 Expected End: 05/18/24 Outcomes Date/Time User Outcome 05/11/24 0833 RICHIE Lucas Progressing Goal: Pt will be mod I with UB dressing Dates: Start: 04/20/24 Expected End: 05/18/24 Outcomes Date/Time User Outcome 05/11/24 0833 RICHIE Lucas Progressing Goal: Pt will be S with bathing Dates: Start: 04/20/24 Expected End: 05/18/24 Outcomes Date/Time User Outcome 05/11/24 08 RICHIE Lucas Progressing Goal: Pt will be mod I with toileting including txfer Dates: Start: 04/20/24 Expected End: 05/18/24 Outcomes Date/Time User Outcome 05/11/24 0833 RICHIE Lucas Progressing Goal: Pt will perform tub txfer with LRAD with S. Dates: Start: 04/20/24 Expected End: 05/18/24 Outcomes Date/Time User Outcome 05/11/24 08RICHIE Corado Progressing Goal: Pt will be mod I with snack/beverage retrieval at LRAD Dates: Start: 04/20/24 Expected End: 05/18/24 Description: Outcomes Date/Time User Outcome 05/11/24 0833 RICHIE Lucas Progressing Encounter Problems (Resolved) Template: [...] 8:34 AM. Learner: Patient Readiness: Acceptance Method: Catering Operations Manager, Explanation, Demonstration Response: Verbalizes Understanding, Demonstrated Understanding, Needs Reinforcement Home Exercise Program, taught by RICHIE Lucas at 05/11/2024 8:34 AM. Learner: Patient Readiness: Acceptance Method: Catering Operations Manager, Explanation, Demonstration Response: Verbalizes Understanding, Demonstrated Understanding, Needs Reinforcement Body Mechanics, taught by RICHIE Lucas at 05/11/2024 8:34 AM. Learner: Patient Readiness: Acceptance Method: Catering Operations Manager, Explanation, Demonstration Response: Verbalizes Understanding, Demonstrated Understanding, Needs Reinforcement Education Comments No comments found. Start/Stop Time OT Time Calculation OT Start Time: 729 OT Stop Time: 829 OT Time Calculation (min): 60 min Therapy Minutes: Occupational Therapy OT Individual: 60 * Leah Philippe NP - 05/11/2024 9:34 AM EST Images from the original note were not included. VEE PROGRESS NOTE Date: 05/11/2024 Author: Leah Philippe NP Patient ID: Amalia Ann is a 48 y.o. female : 1975 MR#: [id number] SUBJECTIVE Patient is awake and alert and oriented Reporting increased weakness to left arm/ patient states her weakness has improved Patient [...] dimensions are difficult to quantify but a sales representative advertising measurement on image 21 of series 3 is 1.2 x 0.5 cm. On images 22-23 of series 3 is an area of restricted diffusion in the midline and right paracentral region of the srinivas, also compatible with an acute infarct. This is also difficult to accurately measure but a sales representative advertising measurement on image 22 is approximately 9 [...] Suspect secondary to intrinsic atherosclerotic disease likely direct marketing analyst now occluded CTA shows right V4 high-grade [...] Tellez, OT - 05/10/2024 12:30 PM EST [facility] Occupational Therapy Treatment Note 05/10/24 Patient: Amalia Ann : 1975 Age: 48 y.o. Gender: female Diagnosis: No Principal Problem: There is no principal problem currently on the Problem List. Please update the Problem List and refresh. Primary Rehab (Etiologic) Diagnosis: Patient Active Problem List Diagnosis HTN (hypertension) DM (diabetes mellitus) ([facility]/HCC) CVA (cerebral vascular accident) ([facility]/HCC) PMH: Past Medical History: Diagnosis Date CVA (cerebral vascular accident) ([facility]/HCC) DM (diabetes mellitus) ([facility]) HTN (hypertension) PSH: History reviewed. No pertinent [...] Comments: Completed 90min session, pt motivated throughout. Argentine><Palauan internet marketer usedthroughout. Ongoing neuro re-ed to increased functional [...] Problems (Active) Template: Occupational Therapy Problem: OT Auditor Appraiser Goals Dates: Start: 04/20/24 Goal: Pt will [...] Therapy OT Individual: 90 * Sherri Rendon, PERSONNEL MONITOR - 05/10/2024 11:43 AM EST Speech Language Pathology Speech Language Pathology Treatment Subjective PERSONNEL MONITOR Start Time: 1000 PERSONNEL MONITOR Stop Time: 1115 PERSONNEL MONITOR Time Calculation (min): 75 min Subjective: Pt was alert and sitting upright in bed for the session. Pt was emotional about the holidays at the start of the session but was agreeable to session. Argentine interpreters Gisella, #[id number],and Fabrizio, #[id number], was used for the session. Objective General [...] w/ abstract categorization task for HW Assessment/Plan PERSONNEL MONITOR Assessment PERSONNEL MONITOR Assessment Results: Cognitive impairments Evaluation/Treatment Tolerance: Patient tolerated treatment well Plan Treatment/Interventions: Cognitive linguistic functioning PERSONNEL MONITOR Plan: Skilled PERSONNEL MONITOR PERSONNEL MONITOR Frequency: 5-7 days per week PERSONNEL MONITOR Duration of Sessions: 30-60 min per session PERSONNEL MONITOR Treatments per day: 1 time per day PERSONNEL MONITOR - Next Appointment: 05/11/24 Goals Encounter Problems [...] AM. Learner: Patient Readiness: Acceptance Method: Explanation, Catering Operations Manager Response: Verbalizes Understanding Comment: Pt was provided education about speech and cognitive strategies Cognition, taught by MARIE Arroyo at 05/10/2024 11:42 AM. Learner: Patient Readiness: Acceptance Method: Explanation, Catering Operations Manager Response: Verbalizes Understanding Comment: Pt was provided education about speech and cognitive strategies Education Comments No comments found. Associated attestation - Elisha Haynes SLP - 05/10/2024 11:56 AM EST I attest that I, Elisha Bae M.A.,[facility]-PERSONNEL MONITOR, was physically involved in the ongoing assessment, decision making, and interventions provided during today's patient care session. I have reviewed all documentation for today's 05/10/24, entered by Speech Therapy Fellow, Sherri Rendon , and further attest that it is an accurate clinical record of today's encounter, including accurate and appropriatecharges. * Elzbieta Garcia, PT - 05/10/2024 9:12 AM EST [facility] Physical Therapy Treatment Note 05/10/2024 Patient: Amalia Ann : 1975 Age: 48 y.o. Gender: female Primary Language: Argentine Diagnosis: No Principal Problem: There is no principal problem currently on the Problem List. Please update the Problem List and refresh. Past Medical History: Diagnosis Date CVA (cerebral vascular accident) ([facility]) DM (diabetes mellitus) ([facility]) HTN (hypertension) History reviewed. No pertinent surgical [...] Re-Education Neuromuscular Re-Education Time Entry: 90 Video internet marketer [id number] and [id number] used for therapy session. Pt supine in bed agreeable to participating in therapy session. Therapist assisting pt in donning socks in bed. Pt transferring partial Ax1 to WC. Pt dep. Brought down to therapy gym in WC. Pt completed mass rep stand pivot transfers lvqdgiw-erd-I x1, anterior LOB and acute buckling on [...] LUE support. Pt ambulating x10ft at tasha-bar, slsvmpo-zrn-E x1 and WC follow, assistance with LLE [...] with LBQC and WC follow. Pt needing owafrma-nve-c x1 with WC follow x10ft at tasha-bar, [...] Problems (Active) Template: Physical Therapy Problem: PT Correction Goals Dates: Start: 04/20/24 Goal: mod I bed mobility Dates: Start: 04/20/24 Expected End: 05/11/24 Outcomes Date/Time User Outcome 05/10/24 120Leo Garcia PT Progressing Goal: mod I transfers with LAD Dates: Start: 04/20/24 Expected End: 05/11/24 Outcomes Date/Time User Outcome 05/10/24 Ambar Garcia, PT Progressing Goal: mod I wc mobility 150' Dates: Start: 04/20/24 Expected End: 05/11/24 Outcomes Date/Time User Outcome 05/10/24 Ambar Garcia, PT Progressing Goal: up/dn 4 flights of stairs min A Dates: Start: 04/20/24 Expected End: 05/11/24 Outcomes Date/Time User Outcome 05/10/24 Ambar Garcia PT Progressing Problem: PT Short Term Goals Dates: Start: 04/20/24 Goal: Pt will perform bed mobility min A Dates: Start: 04/20/24 Expected End: 04/27/24 Outcomes Date/Time User Outcome 05/10/24 Ambar Garcia PT Progressing Goal: Pt will transfer [...] from the original note were not included. [facility] Daily Progress Note Patient [...] Daily, Leah Philippe NP, 5 mg at 12/27/726190 aspirin EC tablet 81 mg, 81 mg, oral, Daily, BRAD Hicks, 81 mg at 05/10/24 08 atorvastatin (LIPITOR) tablet 80 mg, 80 [...] care -secondary to CVA -continue PT, OT, PERSONNEL MONITOR, and nursing care #Acute anterior right pontine stroke #Left hemiparesis #Dysarthria -Aspirin 81mg daily -Plavix 75mg daily -Atorvastatin 80mg nightly -CT head 05/07/24 There is subtle hypoattenuation in the rightward srinivas correlating with an infarctdemonstrated on the comparison MRI. No acute hemorrhage or other acute superimposed findings. -05/09 due to continued worsening weakness MRI brain ordered also reached out to Dr. Reynoso at [facility] neurosurgery to inform of changes in neurostatus. -MRI 05/09 --> areas of restricted diffusion within the srinivas, compatible with acute infarcts, though acute infarcts can have restricted diffusion for multiple weeks, and the exact age of these infarcts is therefore difficult to ascertain. - 05/10 Will have radiologist compare MRI brain 05/09 to [facility] MRI brain from 04/18/2024 #Dysphagia -IDDSI 6 diet with IDDSI 2 mildly thick liquids -continue PERSONNEL MONITOR #Hypertension -Amlodipine 5mg daily started 04/28 -Lisinopril [...] dizziness, shortness of breath, or chest discomfort. Argentine Interpreters utilized to obtain MRI screen. Mauricio #[id number] and Lenard # [id number] . Informed patient that MRI expected to be done this evening, no specific time provided yet, will update pt when info available. Instructed pt that her left earing will need to be removed before MRI. Educated pt to request assistance for toileting, to report pain, dizziness, shortness of breath to nursing staff right away. Neuro assessment performed with assistance of Preschool Lead Teacher. Patient left arm weak, left hand grasp minimal pressure, pt denied numbness or tingling to extremities. + strong palpable pedal pulses bilaterally. Bed alarm on, call noriega in pts right hand reach. * MARIE Shrestha - 05/09/2024 1:03 PM EST Speech Language Pathology Speech Language Pathology Treatment Subjective PERSONNEL MONITOR Start Time: 1303 PERSONNEL MONITOR Stop Time: 1333 PERSONNEL MONITOR Time Calculation (min): 30 min Subjective: Cooperative and pleasant. bull chain operator Alejandro #[id number] utilized. Objective General Visit Info General Family/Caregiver Present: No Treatment Speech and Language Speech Treatment (Individual) Time Entry: 15 Speech: Pt tasked with describing various detailed pictures: set up for strategies. Per internet marketer, required x4 repetitions across 3 trials. Otherwise, [...] mod level deduction puzzle for HW. Assessment/Plan PERSONNEL MONITOR Assessment Evaluation/Treatment Tolerance: Patient tolerated treatment well Plan Treatment/Interventions: Cognitive linguistic functioning PERSONNEL MONITOR Plan: Skilled PERSONNEL MONITOR PERSONNEL MONITOR Frequency: 5-7 days per week PERSONNEL MONITOR Duration of Sessions: 30-60 min per session PERSONNEL MONITOR Treatments per day: 1 time per day PERSONNEL MONITOR - Next Appointment: 05/10/24 Goals Encounter Problems [...] PM. Learner: Patient Readiness: Acceptance Method: Explanation, Catering Operations Manager Response: Verbalizes Understanding Education Comments No comments found. Associated attestation - Christianne Fritz SLP - 05/09/2024 1:53 PM EST I attest that I, Christianne Fritz M.S.,[facility]-PERSONNEL MONITOR, was physically involved in the ongoing assessment, decision making, and interventions provided during today's patient care session. I have reviewed all documentation for today, 05/09/24 entered by Speech Therapy Fellow, Shayy Sanchez, and further attest that it is an accurate clinical record of today's encounter, including accurate and appropriatecharges * Elzbieta Garcia, PT - 05/09/2024 11:44 AM EST [facility] Physical Therapy Treatment Note 05/09/2024 Patient: Amalia Ann : 1975 Age: 48 y.o. Gender: female Primary Language: Argentine Diagnosis: No Principal Problem: There is no principal problem currently on the Problem List. Please update the Problem List and refresh. Past Medical History: Diagnosis Date CVA (cerebral vascular accident) ([facility]/HCC) DM (diabetes mellitus) ([facility]) HTN (hypertension) History reviewed. No pertinent surgical [...] agreeable to participating in therapy session. Video internet marketer [id number] used for therapy session, therapist assessing pts [...] LBQC, pt trialed ambulation 2x10ft, pt needing srpvshx-foo-X x1 for gait and WC follow, increased [...] LOB. Melvi present for transfer, pt needing lprehby-hox-X x1 for transfer with increased buckling on [...] Comments No comments found. ASSESSMENT Therapist updating Melvi COTTER, on changes with mobility status this date. Pt needing czcvbso-tgm-H for ambulation and transfers, therapist deferring stairs [...] Problems (Active) Template: Physical Therapy Problem: PT Auditor Appraiser Goals Dates: Start: 04/20/24 Goal: mod I [...] are no resolved problems. Session Start/Stop Time: 844 944 Therapy Minutes Physical Therapy PT Individual: 60 * BRAD Jensen - 05/09/2024 10:28 AM EST Images from the original note were not included. [facility] Daily Progress Note Patient name: Amalia [...] Daily, Leah Philippe NP, 5 mg at 842 aspirin EC tablet [...] care -secondary to CVA -continue PT, OT, PERSONNEL MONITOR, and nursing care #Acute anterior right pontine stroke #Left hemiparesis #Dysarthria -Aspirin 81mg daily -Plavix 75mg daily -Atorvastatin 80mg nightly -CT head 05/07/24 There is subtle hypoattenuation in the rightward srinivas correlating with an infarctdemonstrated on the comparison MRI. No acute hemorrhage or other acute superimposed findings. -05/09 due to continued worsening weakness MRI brain ordered also reached out to Dr. Reynoso at [facility] neurosurgery to inform of changes in neurostatus. -MRI 05/09 --> Pending #Dysphagia -IDDSI 6 diet with IDDSI 2 mildly thick liquids -continue PERSONNEL MONITOR #Hypertension -Amlodipine 5mg daily started 04/28 -Lisinopril [...] Tellez OT - 05/09/2024 10:00 AM EST [facility] Occupational Therapy Treatment Note 05/09/24 Patient: Amalia Ann : 1975 Age: 48 y.o. Gender: female Diagnosis: No Principal Problem: There is no principal problem currently on the Problem List. Please update the Problem List and refresh. Primary Rehab (Etiologic) Diagnosis: Patient Active Problem List Diagnosis HTN (hypertension) DM (diabetes mellitus) ([facility]) CVA (cerebral vascular accident) ([facility]) PMH: Past Medical History: Diagnosis Date CVA (cerebral vascular accident) (CMS/HCC) DM (diabetes mellitus) ([facility]) HTN (hypertension) PSH: History reviewed. No pertinent [...] arrival, agreeable to participation, requesting bathroom, Video Palauan><bull chain operator utilized throughout (#[id number]). Pt endorsing increased weakness in L UE/LE [...] Problems (Active) Template: Occupational Therapy Problem: OT Auditor Appraiser Goals Dates: Start: 04/20/24 Goal: Pt will [...] from the original note were not included. [facility] PROGRESS NOTE Date: 05/09/2024 Author: Radhika Barber NP Patient ID: Amalia Ann is a 48 y.o. female : 1975 MR#: [id number] SUBJECTIVE Patient is awake and alert and oriented Reporting increased weakness to left arm Repeat Brain CT scan from 05/07/2024 showing no acute hemorrhage and no other acute superimposed findings Case discussed with Forest Engineer PA MRI being ordered Forest Engineer PA for further management and evaluations Case [...] Signed Date: 05/07/2024 12:50 ET Workstation ID: [id number] Transcribed By: Self Edit Transcribed Date: 05/07/2024 12:47 ET ASSESSMENT & PLAN Anterior right pontine stroke Patient had a recent small right pontine CVA on 03/26 and is on aspirin and Plavix. Now with new anterior right pontine stroke Suspect secondary to intrinsic atherosclerotic disease likely direct marketing analyst now occluded CTA shows right V4 high-grade [...] other acute superimposed findings Case discussed with Forest Engineer BRAD SALINAS ordering repeat Brain MRI for [...] a 48 y.o. female : 1975 MR#: [id number] SUBJECTIVE Patient is awake and alert and [...] Signed Date: 05/07/2024 12:50 ET Workstation ID: [id number] Transcribed By: Self Edit Transcribed Date: 05/07/2024 12:47 ET ASSESSMENT & PLAN Anterior right pontine stroke Patient had a recent small right pontine CVA on 03/26 and is on aspirin and Plavix. Now with new anterior right pontine stroke Suspect secondary to intrinsic atherosclerotic disease likely direct marketing analyst now occluded CTA shows right V4 high-grade [...] Colón, PT - 05/07/2024 1:45 PM EST [facility] Physical Therapy Treatment Note 05/07/2024 Patient: Amalia Ann : 1975 Age: 48 y.o. Gender: female Primary Language: Argentine - used video internet marketer Stew [id number] Diagnosis: No Principal Problem: There is no principal problem currently on the Problem List. Please update the Problem List and refresh. Past Medical History: Diagnosis Date CVA (cerebral vascular accident) ([facility]/HCC) DM (diabetes mellitus) ([facility]) HTN (hypertension) History reviewed. No pertinent surgical [...] Balance/Neuromuscular Re-Education Neuromuscular Re-Education Time Entry: 45 Argentine video internet marketer Stew [id number] used through session. Pt supine in bed [...] Problems (Active) Template: Physical Therapy Problem: PT Auditor Appraiser Goals Dates: Start: 04/20/24 Goal: mod I bed mobility Dates: Start: 04/20/24 Expected End: 05/11/24 Outcomes Date/Time User Outcome 05/06/24 1038 Elzbieta Garcia PT Progressing Goal: mod I transfers with LAD Dates: Start: 04/20/24 Expected End: 05/11/24 Outcomes Date/Time User Outcome 05/06/24 Ben Garcia PT Progressing Goal: mod I wc [...] 04/27/24 Outcomes Date/Time User Outcome 05/06/24 1038 Elbzieta Garcia PT Progressing Goal: Pt will ambulate 25' with LAD mod A Dates: Start: 04/20/24 Expected End: 04/27/24 Outcomes Date/Time User Outcome 05/06/24 Ben Garcia PT Progressing Goal: Assess stairs as appropriate (Resolved) Dates: Start: 04/20/24 Expected End: 04/27/24 Resolved: 05/06/24 Outcomes Date/Time User Outcome 05/06/24 Ben Garcia PT Completed Goal: Supervision wc mobility and mgmt 150' (Resolved) Dates: Start: 04/20/24 Expected End: 04/27/24 Resolved: 05/06/24 Description: Outcomes Date/Time User Outcome 05/06/24 Ben Garcia PT Completed Encounter Problems (Resolved) There are no resolved problems. Session Start/Stop Time: 1345 1430 Therapy Minutes Physical Therapy PT Individual: 45 * Shayy Sanchez, PERSONNEL MONITOR - 05/07/2024 1:00 PM EST Speech Language Pathology Speech Language Pathology Treatment Subjective PERSONNEL MONITOR Start Time: 1300 PERSONNEL MONITOR Stop Time: 1330 PERSONNEL MONITOR Time Calculation (min): 30 min Subjective: 'My [...] recall 2/3. Pt demonstrated increased slowness. Per internet marketer, Pt demonstrating unintelligible speech x2 instances, required repetition. Otherwise, internet marketer reporting Pt is 100% intelligible. Cognitive Skills Therapeutic Interventions Cognitive Skills Direct Contact Time Entry: 15 Attention/Concentration: Various alternating/divided attention tasks on CT [place]: mod to higher level: 95% accuracy given max fading to min A. Set up required for scanning. Comments Comments: Pt emotional at end of session, reporting sadness being in hospital without family for holidays. Provided reassurance and support. Assessment/Plan PERSONNEL MONITOR Assessment Evaluation/Treatment Tolerance: Patient tolerated treatment well Medical Staff Made Aware: Yes Comments: RN aware of speech per internet marketer. Plan Treatment/Interventions: Cognitive linguistic functioning PERSONNEL MONITOR Plan: Skilled PERSONNEL MONITOR PERSONNEL MONITOR Frequency: 5-7 days per week PERSONNEL MONITOR Duration of Sessions: 30-60 min per session PERSONNEL MONITOR Treatments per day: 1 time per day PERSONNEL MONITOR - Next Appointment: 05/09/24 Goals Encounter Problems [...] PM. Learner: Patient Readiness: Acceptance Method: Explanation, Catering Operations Manager Response: Verbalizes Understanding Comment: speech strategies, attention strategies Education Comments No comments found. Associated ragini - Christianne Fritz SLP - 05/07/2024 2:15 PM EST I attest that I, Christianne Fritz M.S.,[facility]-PERSONNEL MONITOR, was physically involved in the ongoing assessment, [...] will be As soon as possible. Associated attmarialuisa - Christianne Fritz SLP - 05/07/2024 1:12 PM EST I attest that I, Christianne Fritz M.S.,[facility]-PERSONNEL MONITOR, was physically involved in the ongoing assessment, decision making, and interventions provided during today's patient care session. I have reviewed all documentation for today's 05/07/24, entered by Speech Therapy Fellow, Shayy Sanchez , and furtherattest that it is an accurate clinical record of today's encounter, including accurate and appropriate charges. * Sury Barlow OT - 05/07/2024 12:27 PM EST [place] [facility] Patient: [...] lopez. Min A SPT to return to /. [facility] w/ mob to room to complete UB/LB dressing. Pt donned tshirt with sup. Min A to thread pants through BLE. Min A STS for total A to don brief and pull pants above waist.Pt completed oral hygiene/grooming mngmt in / at sink level, demoing good semi-functional grasp to hold toothbrush in L hand. Upon completion of ADL, [facility] w/ mob to gym to complete therapeutic activity and neuro re-ed. Pt remained seated at tabletop, participated in completing L to R ROM arc with L UE, x3 trials. Overall min A to initiate each grasp of the ring and cues for more control during descent. Pt remained seated in / to open various household containers, utilizing L [...] maintaining control through movement. Pt returned to [facility], [facility] transport backto room. PCT present for blood glucose test. Pt remained seated in / to eat lunch with call norigea within reach and alarm on. All needs [...] Problems (Active) Template: Occupational Therapy Problem: OT Correction Goals Dates: Start: 04/20/24 Goal: Pt will [...] 05/03/24 Outcomes Date/Time User Outcome 05/03/24 140Angie Gray, OT Completed Goal: Pt will perform [...] the original note were not included. [facility] Daily Progress Note Patient name: Amalia [...] noticing increased difficulty with speech on Monday as well. She reports that therapies have [...] oral, Daily, BRAD Hicks, 81 mg at 05/07/24 09 atorvastatin (LIPITOR) tablet 80 mg, 80 mg, oral, Nightly, BRAD Hicks, 80 mg at 05/06/242031 clopidogreL (PLAVIX) tablet 75 mg, 75 mg, oral, Daily, BRAD Hicks, 75 mg at 05/07/24 0923 dextrose (D50W) 50% injection 12.5 g, 12.5 [...] care -secondary to CVA -continue PT, OT, PERSONNEL MONITOR, and nursing care #Acute anterior right pontine stroke #Left hemiparesis #Dysarthria -Aspirin 81mg daily -Plavix 75mg daily -Atorvastatin 80mg nightly -will obtain repeat CT Head to r/o bleed given reports of increased difficulty with speech and increased LUE weakness over the past 48 hours #Dysphagia -IDDSI 6 diet with IDDSI 2 mildly thick liquids -continue PERSONNEL MONITOR #Hypertension -Amlodipine 5mg daily started 04/28 -Lisinopril [...] CT head to be completed. * Iza Mendoza, PT - 05/07/2024 12:00 PM EST [facility] Physical Therapy Treatment Note 05/07/2024 Patient: Amalia Ann : 1975 Age: 48 y.o. Gender: female Primary Language: Argentine Diagnosis: No Principal Problem: There is no [...] Pt received in bed, agreeable to PT. Argentine video internet marketer utilized throughout, ID#[id number]. Supine > sit steadying A. Partial A [...] Learner: Patient Readiness: Acceptance Method: Explanation, Demonstration, Catering Operations Manager Response: Verbalizes Understanding, Needs Reinforcement Comment: transfers, [...] Problems (Active) Template: Physical Therapy Problem: PT Correction Goals Dates: Start: 04/20/24 Goal: mod I [...] a 48 y.o. female : 1975 MR#: [id number] SUBJECTIVE Patient is awake and alert and [...] Suspect secondary to intrinsic atherosclerotic disease likely direct marketing analyst now occluded CTA shows right V4 high-grade [...] 9:00 AM EST Social Work Note Integrated Service Mechanic: DX: Adjustment DO: Met with patient this [...] is doing okay. Will continue to monitor. Sheron Dye MS Clinician * Elzbieta Garcia, PT - 05/06/2024 4:07 PM EST [facility] Physical Therapy Treatment Note 05/06/2024 Patient: Amalia Ann : 1975 Age: 48 y.o. Gender: female Primary Language: Argentine Diagnosis: No Principal Problem: There is no principal problem currently on the Problem List. Please update the Problem List and refresh. Past Medical History: Diagnosis Date CVA (cerebral vascular accident) ([facility]/HCC) DM (diabetes mellitus) ([facility]) HTN (hypertension) History reviewed. No pertinent surgical [...] agreeable to participating in therapy session, video internet marketer used for session [id number]. Pt completed bed mobility SUP, partial A [...] vitals, defer to above, strength assessed in LE s WFL no change in status, therapist collaborating with PERSONNEL MONITOR Shayy and BRANNON Lewis, pt fatigued throughout all therapy sessions today, [...] Problems (Active) Template: Physical Therapy Problem: PT Correction Goals Dates: Start: 04/20/24 Goal: mod I [...] VNA for RN PT and OT. No PERSONNEL MONITOR available. Dr. Bailey to sign off on [...] Restarted POC and sliding scale. * Penelope Bob, RD - 05/06/2024 12:38 PM EST 05/06/2024 @ 12:38 PM EST Nutrition Follow Up Note Catering Operations Manager Services: Language: Preschool Lead Teacher Name or Number: [id number] Reason for RD Intervention: Assessment Type: Follow-up [...] medicationsat home as they were . Appetite WOVEN BLIND LOOM TENDER: Good Intake WOVEN BLIND LOOM TENDER: Stable Weight History: Wt Readings from Last 10 Encounters: 05/04/24 70.2 kg (154 lb 12.8 oz) Subjective Assessment: Pt states she is eating well since last visit- though states she skipped lunch today as she wanted to sleep instead. Consuming average of 69% of meals since last visit per therapist asst. Reviewed meal preferences again and updated in [...] closed Skin: No skin breakdown noted per seed analyst Fluid Accumulation/Edema: Generalized (per therapist asst) Nutrition Diagnosis: Code Type: None Identified Status: [...] and Carbohydrate Controlled diet- handouts provided in ukrainian. Please refer to education note for details [...] follow. Signature: Penelope Bob RD * Neida Bailey, DO - 05/06/2024 12:20 PM EST Images from the original note were not included. [facility] Daily Progress Note Patient name: Amalia [...] oral, Nightly, BRAD Hicks, 80 mg at 05/05/24 202 clopidogreL (PLAVIX) tablet 75 mg, 75 [...] care -secondary to CVA -continue PT, OT, PERSONNEL MONITOR, and nursing care #Acute anterior right pontine stroke #Left hemiparesis #Dysarthria -Aspirin 81mg daily -Plavix 75mg daily -Atorvastatin 80mg nightly #Dysphagia -IDDSI 6 diet with IDDSI 2 mildly thick liquids -continue PERSONNEL MONITOR #Hypertension -Amlodipine 5mg daily started 04/28 -Lisinopril [...] a 48 y.o. female : 1975 MR#: [id number] SUBJECTIVE Patient is awake and alert and [...] Lying Pulse: 72 70 75 70 Resp: Temp: 36.8 ??C (98.2 ??F) 36.9 ??C [...] Suspect secondary to intrinsic atherosclerotic disease likely direct marketing analyst now occluded CTA shows right V4 high-grade [...] Language Pathology Speech Language Pathology Treatment Subjective PERSONNEL MONITOR Start Time: 899 PERSONNEL MONITOR Stop Time: 929 PERSONNEL MONITOR Time Calculation (min): 30 min Subjective: Pt asleep upon arrival. Fatigued, per RN Pt administered pain med and now very groggy. Offered to complete session was Pt was more alert however Pt preferred to complete session at this time despite fatigue. bull chain operator utilized. Objective General Visit Info General Family/Caregiver Present: No Treatment Cognitive Skills Therapeutic Interventions Cognitive Skills Direct Contact Time Entry: 30 Problem Solving: Clock math CT [place] level 2: 60% accuracy indp, increasing accuracy given min to modA. Attention/Concentration: Pt tasked with generating multiple definitions for target words: min to mod A required, accuracy impacted by fatigue ? Assessment/Plan PERSONNEL MONITOR Assessment Evaluation/Treatment Tolerance: Patient limited by fatigue Medical Staff Made Aware: Yes Comments: RN aware of Pt fatigue. Pt noted to demonstrate slow speech, per internet marketer Pt 100% intelligible. Slow speech seemingly d/t fatigue. Plan Treatment/Interventions: Cognitive linguistic functioning PERSONNEL MONITOR Plan: Skilled PERSONNEL MONITOR PERSONNEL MONITOR Frequency: 5-7 days per week PERSONNEL MONITOR Duration of Sessions: 30-60 min per session PERSONNEL MONITOR Treatments per day: 1 time per day PERSONNEL MONITOR - Next Appointment: 05/07/24 Goals Encounter Problems [...] EST I attest that I, Amber Duque M.S.,[facility]-PERSONNEL MONITOR, was physically involved in the ongoing assessment, decision making, and interventions provided during today's patient care session. I have reviewed all documentation for today's 05/06/24, entered by Speech Therapy Fellow, Shayy Meyer, and further attest that it is an accurate clinical record of today's encounter, including accurate and appropriate charges. * Joshua Tellez, BRANNON - 05/06/2024 7:00 AM EST [facility] Occupational Therapy Treatment Note 05/06/24 Patient: Amalia Ann : 1975 Age: 48 y.o. Gender: female Diagnosis: No Principal Problem: There is no principal problem currently on the Problem List. Please update the Problem List and refresh. Primary Rehab (Etiologic) Diagnosis: Patient Active Problem List Diagnosis HTN (hypertension) DM (diabetes mellitus) ([facility]/HCC) CVA (cerebral vascular accident) ([facility]/HCC) PMH: Past Medical History: Diagnosis Date CVA (cerebral vascular accident) ([facility]/HCC) DM (diabetes mellitus) ([facility]) HTN (hypertension) PSH: History reviewed. No pertinent [...] supine upon arrival, vitals assessed, see above. Argentine><Palauan video internet marketer utilized throughout. Pt reporting 10/10 pain in [...] Problems (Active) Template: Occupational Therapy Problem: OT Correction Goals Dates: Start: 04/20/24 Goal: Pt will [...] to back area and requesting pain medication. triple air valve tester Melvi SALINAS notified, order received for Oxy 2.5mg x 1 dose. Medication given, continue to monitor.Warm packs also given to pt at this time. * Jen Larios RN - 05/04/2024 4:50 PM EST Pt A&O POC good this shift no insulin required. Working towardgoals. * MARIE Arroyo - 05/04/2024 4:11 PM EST Speech Language Pathology Speech Language Pathology Treatment Subjective PERSONNEL MONITOR Start Time: 1300 PERSONNEL MONITOR Stop Time: 1350 PERSONNEL MONITOR Time Calculation (min): 50 min Subjective: Pt was alert and sitting upright in wheelchair for the session. Pt was pleasant and cooperative throughout the session. bull chain operator Tay, #[id number], was used for the session. Objective General Visit Info General Family/Caregiver Present: No Treatment Speech and Language Speech Treatment (Individual) Time Entry: 15 Speech: Pt was able to indep. recall 2/3 speech strategies. Pt was provided a review of speech strategies and was encoruaged to use them during session as internet marketer reported difficulty understanding her. Pt was able [...] additional prompts to elicit appropriate response. Assessment/Plan PERSONNEL MONITOR Assessment PERSONNEL MONITOR Assessment Results: Cognitive impairments Evaluation/Treatment Tolerance: Patient tolerated treatment well Plan Treatment/Interventions: Cognitive linguistic functioning PERSONNEL MONITOR Plan: Skilled PERSONNEL MONITOR PERSONNEL MONITOR Frequency: 5-7 days per week PERSONNEL MONITOR Duration of Sessions: 30-60 min per session PERSONNEL MONITOR Treatments per day: 1 time per day Goals Encounter Problems Encounter Problems (Active) Template: Speech Therapy Problem: Cognitive/Linguistics Dates: Start: 04/20/24 Goal: Patient will participate in further assessment of cognitive-linguistic skills (Resolved) Dates: Start: 04/20/24 Expected End: 05/04/24 Resolved: 05/01/24 Description: Goal Type: STG, Performance Level: Independent Outcomes Date/Time User Outcome 05/01/24 0920 Shayy Sanchez, MARIE Completed Goal: Patient will identify and utilize problem-solving intervention for task completion at 90% accuracy given min A Dates: Start: 04/20/24 Expected End: 05/08/24 Description: Goal Type: STG, Performance Level: Min assist Outcomes Date/Time User Outcome 05/03/24 1156 Sherri Rendon, MARIE Not Progressing Goal: Patient will complete simple calculations for time/money management at 90% accuracy given Mauro Dates: Start: 04/20/24 Expected End: 05/11/24 Description: Goal Type: STG, Performance Level: Min assist Outcomes Date/Time User Outcome 05/04/24 161MARIE Mcgill Not Progressing Goal: Pt will improve [...] 05/07/24 Description: Outcomes Date/Time User Outcome 05/04/24 161MARIE Mcgill Progressing Goal: Pt will participate in sequencing/direction following tasks related to functional/ADL tasks given min A- 90% accuracy. Dates: Start: 04/24/24 Expected End: 05/08/24 Description: Outcomes Date/Time User Outcome 05/04/24 MARIE Valenzuela Progressing Goal: Pt will improve intelligibility at the paragraph/conversational level to baseline and independent w/ use of strategies Dates: Start: 04/26/24 Expected End: 05/08/24 Description: Outcomes Date/Time User Outcome 05/04/24 161MARIE Mcgill Progressing Encounter Problems (Resolved) Template: Speech Therapy [...] Outcomes Date/Time User Outcome 04/23/24 1253 Shayy Sanchez, PERSONNEL MONITOR Completed Education Documentation Speech/Language, taught by MARIE Arroyo at 05/04/2024 4:11 PM. Learner: Patient Readiness: Acceptance Method: Explanation, Catering Operations Manager Response: Verbalizes Understanding Cognition, taught by MARIE Arroyo at 05/04/2024 4:11 PM. Learner: Patient Readiness: Acceptance Method: Explanation, Catering Operations Manager Response: Verbalizes Understanding Education Comments No comments found. Associated attestation - Jen Duque SLP - 05/04/2024 4:58 PM EST I attest that I, Amber Duque M.S.,[facility]-PERSONNEL MONITOR, was physically involved in the ongoing assessment, decision making, and interventions provided during today's patient care session. I have reviewed all documentation for today's 05/04/24, entered by Speech Therapy Fellow, Sherri Rendon, and further attest that it is an accurate clinical record of today's encounter, including accurate and appropriate charges. * Liz Sanchez, PT - 05/04/2024 12:02 PM EST [facility] Physical Therapy Treatment Note 05/04/2024 Patient: Amalia Ann : 1975 Age: 48 y.o. Gender: female Primary Language: Argentine, video internet marketer [id number] used throughout session Diagnosis: No Principal Problem: [...] Problems (Active) Template: Physical Therapy Problem: PT Auditor Appraiser Goals Dates: Start: 04/20/24 Goal: mod I bed mobility Dates: Start: 04/20/24 Expected End: 05/11/24 Outcomes Date/Time User Outcome 04/26/24 1212 Elzbieta Garcia, PT Progressing Goal: mod I [...] from the original note were not included. [facility] PROGRESS NOTE Date: 05/04/2024 Author: Leah Philippe NP Patient ID: Amalia Ann is a 48 y.o. 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 seen by endocrine. 04/28 added oral form [...] prophylaxis Lovenox DAILY CARE CHECKLIST * Albina Gray, OT - 05/04/2024 10:00 AM EST [facility] Occupational Therapy Treatment Note 05/04/24 Patient: [...] (cerebral vascular accident) (CMS/HCC) DM (diabetes mellitus) ([facility]) HTN (hypertension) PSH: History reviewed. No pertinent [...] Pt received seated in w/c post PT. bull chain operator utilized throughout session. Pt propelled self to lounge via w/c. Pt participated in decorating the Siriona tree via LB[employer] with steadying A throughout 2 x at least 10 minute standing trials, reaching outside of IRIS throughout and utilizing L UE as dominant hand primarily as able. Pt with 1 minimal LOB requiring A to correct. Pt requiring initial cues for L foot clearance with amb short distance on carpeted surface. Pt able to apply hook to ornaments using L UE more than half of task. Pt able to remove putty from container. This designer/writer reviewed each exercise with pt to ensure [...] Problems (Active) Template: Occupational Therapy Problem: OT Auditor Appraiser Goals Dates: Start: 04/20/24 Goal: Pt will [...] 12:59 PM. Learner: Patient Readiness: Acceptance Method: Catering Operations Manager Response: Verbalizes Understanding, Needs Reinforcement Body Mechanics, taught by Albina Gray OT at 05/04/2024 12:59 PM. Learner: Patient Readiness: Acceptance Method: Catering Operations Manager Response: Verbalizes Understanding, Needs Reinforcement Diet and Diabetes, taught by Albina Gray OT at 05/04/2024 12:59 PM. Learner: Patient Readiness: Acceptance Method: Catering Operations Manager Response: Verbalizes Understanding, Needs Reinforcement Diabetes Overview, taught by Albina Gray OT at 05/04/2024 12:59 PM. Learner: Patient Readiness: Acceptance Method: Catering Operations Manager Response: Verbalizes Understanding, Needs Reinforcement Education Comments No comments found. Start/Stop Time OT Time Calculation OT Start Time: 1000 OT Stop Time: 1130 OT Time Calculation (min): 90 min Therapy Minutes: Occupational Therapy OT Individual: 90 * BRAD Viramontes - 05/03/2024 2:01 PM EST Images from the original note were not included. [facility] PROGRESS NOTE Date: 05/03/2024 Author: BRAD Viramontes Patient ID: Amalia Ann is a 48 y.o. female : 1975 MR#: [id number] SUBJECTIVE Subjective Patient seen. She has no [...] Suspect secondary to intrinsic atherosclerotic disease likely direct marketing analyst now occluded CTA shows right V4 high-grade [...] start glipizide Discuss glipizide with patient via bull chain operator. She knows not to consume glipizide if [...] Garcia, PT - 05/03/2024 12:49 PM EST [facility] Physical Therapy Treatment Note 05/03/2024 Patient: Amalia Ann : 1975 Age: 48 y.o. Gender: female Primary Language: Argentine Diagnosis: No Principal Problem: There is no [...] agreeable to participating in therapy session. Video internet marketer [id number] usedfor therapy session. Pt trialed x20ft of [...] 1:14 PM. Learner: Patient Readiness: Acceptance Method: Catering Operations Manager Response: Verbalizes Understanding, Demonstrated Understanding Comment: DME, balance, gait, d/c planning Safe Use of DME, taught by Elzbieta Garcia PT at 05/03/2024 1:14 PM. Learner: Patient Readiness: Acceptance Method: Catering Operations Manager Response: Verbalizes Understanding, Demonstrated Understanding Comment: DME, [...] Problems (Active) Template: Physical Therapy Problem: PT Auditor Appraiser Goals Dates: Start: 04/20/24 Goal: mod I [...] Physical Therapy PT Individual: 90 * Neida Bailey DO - 05/03/2024 12:08 PM EST Images from the original note were not included. [facility] Daily Progress Note Patient name: Amalia [...] Daily, Leah Philippe NP, 5 mg at 850 aspirin EC tablet [...] care -secondary to CVA -continue PT, OT, PERSONNEL MONITOR, and nursing care #Acute anterior right pontine stroke #Left hemiparesis #Dysarthria -Aspirin 81mg daily -Plavix 75mg daily -Atorvastatin 80mg nightly #Dysphagia -IDDSI 6 diet with IDDSI 2 mildly thick liquids -continue PERSONNEL MONITOR #Hypertension -Amlodipine 5mg daily started 04/28 -Lisinopril [...] prophylaxis: Lovenox 40mg daily * Sherri Rendon, PERSONNEL MONITOR - 05/03/2024 11:59 AM EST Speech Language Pathology Speech Language Pathology Treatment Subjective PERSONNEL MONITOR Start Time: 09 PERSONNEL MONITOR Stop Time: 1000 PERSONNEL MONITOR Time Calculation (min): 60 min Subjective: Pt was alert and sitting upright in bed for the session. Pt was pleasant and cooperative throughout the session. bull chain operator Leoncio, #[id number], and Dennise, #[id number], was used for thesession. Objective General Visit [...] min A for recall of strategies. Assessment/Plan PERSONNEL MONITOR Assessment PERSONNEL MONITOR Assessment Results: Cognitive impairments Evaluation/Treatment Tolerance: Patient tolerated treatment well Plan Treatment/Interventions: Cognitive linguistic functioning PERSONNEL MONITOR Plan: Skilled PERSONNEL MONITOR PERSONNEL MONITOR Frequency: 5-7 days per week PERSONNEL MONITOR Duration of Sessions: 30-60 min per session PERSONNEL MONITOR Treatments per day: 1 time per day PERSONNEL MONITOR Discharge Recommendations: Outpatient PERSONNEL MONITOR Goals Encounter Problems Encounter Problems (Active) Template: [...] Min assist Outcomes Date/Time User Outcome 05/03/24 115MARIE Nunes Not Progressing Goal: Patient will complete simple calculations for time/money management at 90% accuracy given Mauro Dates: Start: 04/20/24 Expected End: 05/04/24 Description: Goal Type: STG, Performance Level: Min assist Outcomes Date/Time User Outcome 05/03/24 115MARIE Nunes Progressing Goal: Pt will improve intelligibility [...] EST I attest that I, Amber Duque M.S.,[facility]-PERSONNEL MONITOR, was physically involved in the ongoing assessment, decision making, and interventions provided during today's patient care session. I have reviewed all documentation for today's 05/03/24, entered by Speech Therapy Fellow, Sherri Rendon, and further attest that it is an accurate clinical record of today's encounter, including accurate and appropriate charges. * Albina Gray OT - 05/03/2024 10:00 AM EST [facility] Occupational Therapy Treatment Note 05/03/24 Patient: Amalia Ann : 1975 Age: 48 y.o. Gender: female Diagnosis: No Principal Problem: There is no principal problem currently on the Problem List. Please update the Problem List and refresh. Primary Rehab (Etiologic) Diagnosis: Patient Active Problem List Diagnosis HTN (hypertension) DM (diabetes mellitus) ([facility]) CVA (cerebral vascular accident) ([facility]) PMH: Past Medical History: Diagnosis Date CVA (cerebral vascular accident) ([facility]/HCC) DM (diabetes mellitus) ([facility]) HTN (hypertension) PSH: History reviewed. No pertinent [...] vitals assessed. Agreeable to participate in session. Catering Operations Manager utilized throughout session. Donned socks bed level. [...] Level 1 theraputty and corresponding exercises in ukrainian. Pt remained w/c level with chair alarm [...] Problems (Active) Template: Occupational Therapy Problem: OT Auditor Appraiser Goals Dates: Start: 04/20/24 Goal: Pt will [...] Outcomes Date/Time User Outcome 05/03/24 1407 Albina M Marina, OT Completed Goal: Pt will perform bathing [...] 2:08 PM. Learner: Patient Readiness: Acceptance Method: Catering Operations Manager, Explanation, Demonstration Response: Verbalizes Understanding, Needs Reinforcement Body Mechanics, taught by Albina Gray OT at 05/03/2024 2:08 PM. Learner: Patient Readiness: Acceptance Method: Catering Operations Manager, Explanation, Demonstration Response: Verbalizes Understanding, Needs Reinforcement Personal Risk Factors for Stroke, taught by Albina Gray OT at 05/03/2024 2:08 PM. Learner: Patient Readiness: Acceptance Method: Catering Operations Manager, Explanation, Demonstration Response: Verbalizes Understanding, Needs Reinforcement Diabetes Overview, taught by Albina Gray OT at 05/03/2024 2:08 PM. Learner: Patient Readiness: Acceptance Method: Catering Operations Manager, Explanation, Demonstration Response: Verbalizes Understanding, Needs Reinforcement [...] a 48 y.o. female : 1975 MR#: [id number] SUBJECTIVE Subjective Patient seen. 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 She knows not to consume glipizide if [...] prophylaxis Lovenox DAILY CARE CHECKLIST * Joshua Tellez OT - 05/02/2024 12:30 PM EST [facility] Occupational Therapy Treatment Note 05/02/24 Patient: Amalia Ann : 1975 Age: 48 y.o. Gender: female Diagnosis: No Principal Problem: There is no principal problem currently on the Problem List. Please update the Problem List and refresh. Primary Rehab (Etiologic) Diagnosis: Patient Active Problem List Diagnosis HTN (hypertension) DM (diabetes mellitus) ([facility]/HCC) CVA (cerebral vascular accident) (CMS/HCC) PMH: Past [...] to shower. Functional amb from bedside>bathroom at [facility] with step-through gait pattern with partial A for more than steadying, with cues for pacing. toilet txfer with use of grab bar steadying A. pt toileted with overall steadying Afor balance. Pt performed hand hygiene in stand at sink with Steadying A. Pt propelled self from room><gym with use of B LEs with noted imporvement in foot clearance. Functional amb at [facility] >< bathroom with partial A for [...] Problems (Active) Template: Occupational Therapy Problem: OT Correction Goals Dates: Start: 04/20/24 Goal: Pt will [...] Garcia, PT - 05/02/2024 10:19 AM EST [facility] Physical Therapy Treatment Note 05/02/2024 Patient: Amalia Ann : 1975 Age: 48 y.o. Gender: female Primary Language: Argentine Diagnosis: No Principal Problem: There is no [...] participating in therapy session. Therapist using video internet marketer [facility] session, Jessi [id number]. Pt completed bed mobilty SUP. Pt ambulating [...] 10:34 AM. Learner: Patient Readiness: Acceptance Method: Catering Operations Manager, Demonstration, Explanation Response: Verbalizes Understanding, Demonstrated Understanding [...] Problems (Active) Template: Physical Therapy Problem: PT Auditor Appraiser Goals Dates: Start: 04/20/24 Goal: mod I [...] Therapy PT Individual: 90 * Sherri Rendon, PERSONNEL MONITOR - 05/02/2024 9:43 AM EST Speech Language Pathology Speech Language Pathology Treatment Subjective PERSONNEL MONITOR Start Time: 0800 PERSONNEL MONITOR Stop Time: 0850 PERSONNEL MONITOR Time Calculation (min): 50 min Subjective: Pt [...] how potatoes have carbs in them. Assessment/Plan PERSONNEL MONITOR Assessment PERSONNEL MONITOR Assessment Results: Cognitive impairments Evaluation/Treatment Tolerance: Patient tolerated treatment well Plan Treatment/Interventions: Cognitive linguistic functioning PERSONNEL MONITOR Plan: Skilled PERSONNEL MONITOR PERSONNEL MONITOR Frequency: 5-7 days per week PERSONNEL MONITOR Duration of Sessions: 45-60 min per session PERSONNEL MONITOR Treatments per day: 1 time per day PERSONNEL MONITOR Discharge Recommendations: Outpatient PERSONNEL MONITOR PERSONNEL MONITOR - Next Appointment: 05/03/24 Goals Encounter Problems [...] Learner: Patient Readiness: Acceptance Method: Explanation, Handout, Catering Operations Manager Response: Verbalizes Understanding, Needs Reinforcement Comment: Pt was provided education about diabetic diets and use of external memory aids. Education Comments No comments found. Associated attestation - Jen Duque SLP - 05/02/2024 11:30 AM EST I attest that I, Amber Duque M.S.,[facility]-PERSONNEL MONITOR, was physically involved in the ongoing assessment, [...] the original note were not included. [facility] Daily Progress Note Patient name: Amalia [...] Daily, Leah Philippe, JASON, 5 mg at 818 aspirin EC tablet 81 mg, 81 mg, [...] care -secondary to CVA -continue PT, OT, PERSONNEL MONITOR, and nursing care #Acute anterior right pontine stroke #Left hemiparesis #Dysarthria -Aspirin 81mg daily -Plavix 75mg daily -Atorvastatin 80mg nightly #Dysphagia -IDDSI 6 diet with IDDSI 2 mildly thick liquids -continue PERSONNEL MONITOR #Hypertension -Amlodipine 5mg daily started 04/28 -Lisinopril [...] Garcia PT - 05/01/2024 1:26 PM EST [facility] Physical Therapy Treatment Note 05/01/2024 Patient: Amalia Ann : 1975 Age: 48 y.o. Gender: female Primary Language: Argentine [id number] video internet marketer used for therapy session. Diagnosis: No Principal Problem: There is no principal problem currently on the Problem List. Please update the Problem List and refresh. Past Medical History: Diagnosis Date CVA (cerebral vascular accident) ([facility]) DM (diabetes mellitus) ([facility]) HTN (hypertension) History reviewed. No pertinent surgical [...] to , pt with posterior LOB into WC. Video internet marketer used for therapy session [id number]. Pt completed x12 stairs with bilat. Rails, [...] Training, taught by Elzbieta Garcia PT at 05/01/2024 3:11 PM. Learner: Patient Readiness: Acceptance Method: Explanation, Catering Operations Manager, Demonstration Response: Verbalizes Understanding, Demonstrated Understanding Comment: [...] Problems (Active) Template: Physical Therapy Problem: PT Auditor Appraiser Goals Dates: Start: 04/20/24 Goal: mod I [...] a 48 y.o. female : 1975 MR#: [id number] SUBJECTIVE Subjective Reports that she is having [...] Suspect secondary to intrinsic atherosclerotic disease likely direct marketing analyst now occluded CTA shows right V4 high-grade [...] CARE CHECKLIST * Neida Bailey DO - 05/01/2024 11:06 AM EST Images from the original note were not included. [facility] Daily Progress Note Patient name: Amalia [...] Daily, Leah Philippe NP, 5 mg at 818 aspirin EC tablet 81 mg, 81 mg, oral, Daily, BRAD iHcks, 81 mg at 05/01/24 0818 atorvastatin (LIPITOR) tablet 80 mg, 80 mg, [...] subcutaneous, Daily, BRAD Hicks, 40 mg at 05/01/2418 Glucagon HCl (rDNA) injection 1 mg, 1 [...] oral, Daily, BRAD Viramontes, 20 mg at 05/01/24 0818 magnesium hydroxide (MILK OF MAGNESIA) 400 mg/5 mL suspension 30 mL, 30 mL, oral, Daily PRN, BRAD Rojas, 30 mL at 04/23/24 0529 metFORMIN (GLUCOPHAGE) tablet 500 mg, 500 mg, oral, BID with meals, Leah Philippe NP, 500 mg at 05/01/24 0818 LABS: Lab Results Component Value Date WBC [...] care -secondary to CVA -continue PT, OT, PERSONNEL MONITOR, and nursing care #Acute anterior right pontine stroke #Left hemiparesis #Dysarthria -Aspirin 81mg daily -Plavix 75mg daily -Atorvastatin 80mg nightly #Dysphagia -IDDSI 6 diet with IDDSI 2 mildly thick liquids -continue PERSONNEL MONITOR #Hypertension -Amlodipine 5mg daily started 04/28 -Lisinopril [...] Gray OT - 05/01/2024 9:30 AM EST [facility] Occupational Therapy Treatment Note 05/01/24 Patient: Amalia Ann : 1975 Age: 48 y.o. Gender: female Diagnosis: No Principal Problem: There is no principal problem currently on the Problem List. Please update the Problem List and refresh. Primary Rehab (Etiologic) Diagnosis: Patient Active Problem List Diagnosis HTN (hypertension) DM (diabetes mellitus) ([facility]/HCC) CVA (cerebral vascular accident) ([facility]) PMH: Past Medical History: Diagnosis Date CVA (cerebral vascular accident) (CMS/HCC) DM (diabetes mellitus) ([facility]) HTN (hypertension) PSH: History reviewed. No pertinent [...] close S. For all standing trials, this designer/writer close to L knee due to hold [...] Problems (Active) Template: Occupational Therapy Problem: OT Auditor Appraiser Goals Dates: Start: 04/20/24 Goal: Pt will [...] 1:09 PM. Learner: Patient Readiness: Acceptance Method: Catering Operations Manager, Explanation, Demonstration Response: Verbalizes Understanding, Demonstrated Understanding, Needs Reinforcement Body Mechanics, taught by Albina Gray OT at 05/01/2024 1:09 PM. Learner: Patient Readiness: Acceptance Method: Catering Operations Manager, Explanation, Demonstration Response: Verbalizes Understanding, Demonstrated Understanding, Needs Reinforcement Activation of EMS (Call 911), taught by Albina Gray OT at 05/01/2024 1:09 PM. Learner: Patient Readiness: Acceptance Method: Catering Operations Manager, Explanation, Demonstration Response: Verbalizes Understanding, Demonstrated Understanding, Needs Reinforcement Warning Signs and Symptoms of Stroke, taught by Albina Gray OT at 05/01/2024 1:09 PM. Learner: Patient Readiness: Acceptance Method: Catering Operations Manager, Explanation, Demonstration Response: Verbalizes Understanding, Demonstrated Understanding, Needs Reinforcement Fall Precautions, taught by Albina Gray OT at 05/01/2024 1:09 PM. Learner: Patient Readiness: Acceptance Method: Catering Operations Manager, Explanation, Demonstration Response: Verbalizes Understanding, Demonstrated Understanding, Needs Reinforcement Education Comments No comments found. Start/Stop Time OT Time Calculation OT Start Time: 929 OT Stop Time: 1100 OT Time Calculation (min): 90 min Therapy Minutes: Occupational Therapy OT Individual: 90 * Shayy Sanchez, PERSONNEL MONITOR - 05/01/2024 8:30 AM EST Speech Language Pathology Speech Language Pathology Treatment Subjective PERSONNEL MONITOR Start Time: 829 PERSONNEL MONITOR Stop Time: 914 PERSONNEL MONITOR Time Calculation (min): 45 min Subjective: Pt cooperative and pleasant. bull chain operator Donnie #[id number] utilized. Objective General Visit Info General Family/Caregiver Present: No Treatment Cognitive Skills Therapeutic Interventions Cognitive Skills Direct Contact Time Entry: 45 Memory: Provided Pt with blood sugar checklist for home use. Discussed purpose as external memory strategy. Confirmed accuracy of Argentine translation with internet marketer. Problem Solving: Mod level deduction puzzle: mod [...] lower level for Pt to reach. Assessment/Plan PERSONNEL MONITOR Assessment Evaluation/Treatment Tolerance: Patient tolerated treatment well Plan Treatment/Interventions: Cognitive linguistic functioning PERSONNEL MONITOR Plan: Skilled PERSONNEL MONITOR PERSONNEL MONITOR Frequency: 5-7 days per week PERSONNEL MONITOR Duration of Sessions: 45-60 min per session PERSONNEL MONITOR Treatments per day: 1 time per day PERSONNEL MONITOR - Next Appointment: 05/02/24 Goals Encounter Problems Encounter Problems (Active) Template: Speech Therapy Problem: Cognitive/Linguistics Dates: Start: 04/20/24 Goal: Patient will participate in further assessment of cognitive-linguistic skills (Resolved) Dates: Start: 04/20/24 Expected End: 05/04/24 Resolved: 05/01/24 Description: Outcomes Date/Time User Outcome 05/01/24919 MARIE Shrestha Completed Goal: Patient will identify [...] Learner: Patient Readiness: Acceptance Method: Explanation, Demonstration, Catering Operations Manager Response: Verbalizes Understanding, Needs Reinforcement Education Comments No comments found. Associated attestation - Jen Duque SLP - 05/01/2024 4:05 PM EST I attest that I, Amber Duque M.S.,[facility]-PERSONNEL MONITOR, was physically involved in the ongoing assessment, decision making, and interventions provided during today's patient care session. I have reviewed all documentation for today's 05/01/24, entered by Speech Therapy Fellow, Shayy Meyer, and further attest that it is an accurate clinical record of today's encounter, including accurate and appropriate charges. * Elzbieta Garcia, PT - 04/30/2024 1:16 PM EST [facility] Physical Therapy Treatment Note 04/30/2024 Patient: Amalia Ann : 1975 Age: 48 y.o. Gender: female Primary Language: Argentine Diagnosis: No Principal Problem: There is no [...] Re-Education Neuromuscular Re-Education Time Entry: 55 Video internet marketer [id number] used for therapy session. Pt supine in [...] coordination impairments for SHANNAN, and heel to rceio. Pt dep brought back to room in WC, pt completed stand pivot transfer with no AD, partial A, SUP bed mobility. Pt left supine in bed, call noriega in reach, bed alarm on, all needs met. Education: Education Documentation Mobility Training, taught by Elzbieta Garcia, PT at 04/30/2024 12:05 PM. Learner: Patient Readiness: Acceptance Method: Catering Operations Manager, Demonstration, Explanation Response: Verbalizes Understanding, Demonstrated Understanding [...] Problems (Active) Template: Physical Therapy Problem: PT Correction Goals Dates: Start: 04/20/24 Goal: mod I [...] Raulito Garcia PT Progressing Goal: Pt will ambulate [...] from the original note were not included. [facility] PROGRESS NOTE Date: 04/30/2024 Author: BRAD Viramontes Patient ID: Amalia Ann is a 48 y.o. female : 1975 MR#: [id number] SUBJECTIVE Subjective No complaints today voiding without [...] Sitting Pulse: [phone] Resp: Temp: 36.7 ??C (98 ??F) 36.7 ??C [...] Suspect secondary to intrinsic atherosclerotic disease likely direct marketing analyst now occluded CTA shows right V4 high-grade [...] prophylaxis Lovenox DAILY CARE CHECKLIST * Elzbieta Garcia PT - 04/30/2024 9:50 AM EST [facility] Physical Therapy Treatment Note 04/30/2024 Patient: Amalia Ann : 1975 Age: 48 y.o. Gender: female Primary Language: Argentine Diagnosis: No Principal Problem: There is no principal problem currently on the Problem List. Please update the Problem List and refresh. Past Medical History: Diagnosis Date CVA (cerebral vascular accident) ([facility]/HCC) DM (diabetes mellitus) ([facility]) HTN (hypertension) History reviewed. No pertinent surgical [...] Pain:0/10 pain OBJECTIVE General Observation: Seated in WC agreeable to participating in therapy session. General/Functional Assessments: Procedure/Treatment: Neuromuscular Reeducation: Balance/Neuromuscular Re-Education Neuromuscular Re-Education Time Entry: 35 Patient in Wheelchair agreeable to participating in therapy session, video internet marketer [id number] used for therapy session. Pt completed WC [...] gait. Pt brought back to room in WC, with chair alarm on and PERSONNEL MONITOR Shayy present. Education: Education Documentation Mobility Training, taught by Elzbieta Garcia PT at 04/30/2024 12:05 PM. Learner: Patient Readiness: Acceptance Method: Catering Operations Manager, Demonstration, Explanation Response: Verbalizes Understanding, Demonstrated Understanding [...] Problems (Active) Template: Physical Therapy Problem: PT Auditor Appraiser Goals Dates: Start: 04/20/24 Goal: mod I [...] no resolved problems. Session Start/Stop Time: 839 914 Therapy Minutes Physical Therapy PT Individual: 35 * Shayy Sanchez, MARIE - 04/30/2024 9:15 AM EST Speech Language Pathology Speech Language Pathology Treatment Subjective PERSONNEL MONITOR Start Time: 914 PERSONNEL MONITOR Stop Time: 999 PERSONNEL MONITOR Time Calculation (min): 45 min Subjective: 'I am tired but feel good'. bull chain operator Jen #[id number] utilized. Objective General Visit Info General Family/Caregiver [...] increased awareness/insight of deficits during sessions. Assessment/Plan PERSONNEL MONITOR Assessment Evaluation/Treatment Tolerance: Patient tolerated treatment well Plan Treatment/Interventions: Cognitive linguistic functioning PERSONNEL MONITOR Plan: Skilled PERSONNEL MONITOR PERSONNEL MONITOR Frequency: 5-7 days per week PERSONNEL MONITOR Duration of Sessions: 45-60 min per session PERSONNEL MONITOR Treatments per day: 1 time per day PERSONNEL MONITOR - Next Appointment: 05/01/24 Goals Encounter Problems [...] 05/04/24 Description: Outcomes Date/Time User Outcome 04/23/24 MARIE Schmidt Progressing Goal: Patient will complete simple calculations [...] AM. Learner: Patient Readiness: Acceptance Method: Explanation, Catering Operations Manager Response: Verbalizes Understanding Comment: Reviewd PT recommendations, problem solving/solutions for safety at home, external memory strategies (ie chart for blood sugar checks). Education Comments No comments found. Associated attestation - Jen Duque SLP - 04/30/2024 2:51 PM EST I attest that I, Amber Duque M.S.,[facility]-PERSONNEL MONITOR, was physically involved in the ongoing assessment, decision making, and interventions provided during today's patient care session. I have reviewed all documentation for today's 04/30/24, entered by Speech Therapy Fellow, Shayy Meyer, and further attest that it is an accurate clinical record of today's encounter, including accurate and appropriate charges. * BRAD Jensen - 04/30/2024 8:37 AM EST Images from the original note were not included. [facility] Daily Progress Note Patient name: Amalia Ann : 1975 SUBJECTIVE: Patient seen and examined at bedside today. No acute events overnight. Denies headaches, dizziness,shortness of breath, chest pain, nausea, constipation, and pain. No new concerns today. She reportsthat therapy was doing well. Patient was seen transferring from WC to bed with 1 assist. OBJECTIVE: Vitals: [...] Nightly, BRAD Hicks, 80 mg at 04/29/24 210 clopidogreL (PLAVIX) tablet 75 mg, 75 [...] meals, Leah Philippe NP, 500 mg at 04/30/24 0828 senna (SENOKOT) [...] care -secondary to CVA -continue PT, OT, PERSONNEL MONITOR, and nursing care #Acute anterior right pontine stroke #Left hemiparesis #Dysarthria -Aspirin 81mg daily -Plavix 75mg daily -Atorvastatin 80mg nightly #Dysphagia -IDDSI 6 diet with IDDSI 2 mildly thick liquids -continue PERSONNEL MONITOR #Hypertension -Amlodipine 5mg daily started 04/28 -Lisinopril [...] as documented by PA today. * Roxanne Gilmore, OT - 04/30/2024 8:30 AM EST [facility] Occupational Therapy Treatment Note 04/30/24 Patient: [...] (cerebral vascular accident) (CMS/HCC) DM (diabetes mellitus) ([facility]) HTN (hypertension) PSH: History reviewed. No pertinent [...] Problems (Active) Template: Occupational Therapy Problem: OT Correction Goals Dates: Start: 04/20/24 Goal: Pt will [...] OT Start Time: 0700 OT Stop Time: 30 OT Time Calculation (min): 90 min Therapy Minutes: Occupational Therapy OT Individual: 90 * Neida Bailey, DO - 04/29/2024 7:08 PM EST Images from the original note were not included. [facility] Daily Progress Note Patient name: Amalia Ann : 1975 SUBJECTIVE: Patient seen and examined at bedside today. No acute events overnight. Denies headaches, dizziness,shortness of breath, chest pain, nausea, constipation, and pain. No new concerns today. Participating in therapies: pt ambulating x40ft around tasha-bar with partial A x1 OBJECTIVE: Vitals: 04/28/24 2039 04/28/24 2043 04/29/24 0421 04/29/24 0838 BP: [...] Daily, Leah Philippe, JASON, 5 mg at 043 aspirin EC tablet 81 mg, 81 mg, oral, Daily, BRAD Hicks, 81 mg at 04/29/24 08 atorvastatin (LIPITOR) tablet 80 mg, 80 mg, oral, Nightly, BRAD Hicks, 80 mg at 04/28/242041 clopidogreL (PLAVIX) tablet 75 mg, 75 mg, oral, Daily, BRAD Hicks, 75 mg at 04/29/24818 dextrose (D50W) 50% injection 12.5 g, 12.5 [...] oral, BID, BRAD Hicks, 100 mg at 04/29/24 08 enoxaparin (LOVENOX) injection 40 mg, 40 mg, [...] oral, Daily, BRAD Viramontes, 20 mg at 04/29/24 0819 magnesium hydroxide (MILK OF MAGNESIA) 400 mg/5 [...] care -secondary to CVA -continue PT, OT, PERSONNEL MONITOR, and nursing care #Acute anterior right pontine stroke #Left hemiparesis #Dysarthria -Aspirin 81mg daily -Plavix 75mg daily -Atorvastatin 80mg nightly #Dysphagia -IDDSI 6 diet with IDDSI 2 mildly thick liquids -continue PERSONNEL MONITOR #Hypertension -Amlodipine 5mg daily started 04/28 -Lisinopril [...] Language Pathology Speech Language Pathology Treatment Subjective PERSONNEL MONITOR Start Time: 1445 PERSONNEL MONITOR Stop Time: 1530 PERSONNEL MONITOR Time Calculation (min): 45 min Subjective: 'I feel tired from earlier'. bull chain operator Sierra #[id number] utilized. Objective General Visit Info General Family/Caregiver [...] and modifications for d/c at home. Assessment/Plan PERSONNEL MONITOR Assessment Evaluation/Treatment Tolerance: Patient tolerated treatment well Plan Treatment/Interventions: Cognitive linguistic functioning PERSONNEL MONITOR Plan: Skilled PERSONNEL MONITOR PERSONNEL MONITOR Frequency: 5-7 days per week PERSONNEL MONITOR Duration of Sessions: 45-60 min per session PERSONNEL MONITOR Treatments per day: 1 time per day PERSONNEL MONITOR - Next Appointment: 04/30/24 Goals Encounter Problems [...] 05/04/24 Description: Outcomes Date/Time User Outcome 04/23/24 125MARIE Miller Progressing Goal: Patient will complete simple calculations [...] PM. Learner: Patient Readiness: Acceptance Method: Explanation, Catering Operations Manager Response: Verbalizes Understanding Education Comments No comments found. Associated attestation - Jen Duque SLP - 04/29/2024 10:05 PM EST I attest that I, Amber Duque M.SJessica,[facility]-PERSONNEL MONITOR, was physically involved in the ongoing assessment, decision making, and interventions provided during today's patient care session. I have reviewed all documentation for today's 04/29/24, entered by Speech Therapy Fellow, Shayy Meyer, and further attest that it is an accurate clinical record of today's encounter, including accurate and appropriate charges. * Elzbieta Garcia, PT - 04/29/2024 12:46 PM EST [facility] Physical Therapy Treatment Note 04/29/2024 Patient: Amalia Ann : 1975 Age: 48 y.o. Gender: female Primary Language: Argentine Diagnosis: No Principal Problem: There is no principal problem currently on the Problem List. Please update the Problem List and refresh. Past Medical History: Diagnosis Date CVA (cerebral vascular accident) ([facility]) DM (diabetes mellitus) ([facility]) HTN (hypertension) History reviewed. No pertinent surgical [...] bed agreeable to participating in therapy session. [id number], [id number] video internet marketer used. Procedure/Treatment: Neuromuscular Reeducation: Balance/Neuromuscular Re-Education Neuromuscular [...] Learner: Patient Readiness: Acceptance Method: Explanation, Demonstration, Catering Operations Manager Response: Verbalizes Understanding, Demonstrated Understanding, Needs Reinforcement [...] Problems (Active) Template: Physical Therapy Problem: PT Correction Goals Dates: Start: 04/20/24 Goal: mod I [...] from the original note were not included. [facility] PROGRESS NOTE Date: 04/29/2024 Author: Leah Philippe NP Patient ID: Amalia Ann is a 48 y.o. female : 1975 MR#: [id number] SUBJECTIVE Subjective No complaints today voiding without [...] glucagon injection, hydrALAZINE, magnesium hydroxide OBJECTIVE Vitals: 04/28/24 2039 04/28/24 2043 04/29/24 0421 04/29/24 0838 BP: [...] Suspect secondary to intrinsic atherosclerotic disease likely direct marketing analyst now occluded CTA shows right V4 high-grade [...] 9:50 AM EST Social Work Note Integrated Service Mechanic: DX: Adjustment DO: Met with patient this [...] Tellez OT - 04/29/2024 8:30 AM EST [facility] Occupational Therapy Treatment Note 04/29/24 Patient: [...] to shower. Vitals assessed, see above. Video Palauan><bull chain operator used throughout. Elevated supine>sit EOB S. Pt able to verbize need to pace txfer. SPT from bed>w/c in [facility] with steadying A with UE support on [...] WB, pt tasked with playing game of [place] [employer], tossing stanley bags with L UE. Stanley [...] Problems (Active) Template: Occupational Therapy Problem: OT Correction Goals Dates: Start: 04/20/24 Goal: Pt will [...] questions regarding point of care numbers. This designer/writer printed: 1- Diabetic Meal planning (in ukrainian) 2- Learning about Type 2 diabetes (in ukrainian). Reviewed print outs and reinforced healthy food options for a type 2 diabetic. Patient verbalized an understanding- but will need reinforcement * Leah Philippe NP - 04/28/2024 12:29 PM EST Images from the original note were not included. [facility] PROGRESS NOTE Date: 04/28/2024 Author: Leah Philippe NP Patient ID: Amalia Ann is a 48 y.o. female : 1975 MR#: [id number] SUBJECTIVE Subjective No complaints today patient is [...] Suspect secondary to intrinsic atherosclerotic disease likely direct marketing analyst now occluded CTA shows right V4 high-grade [...] worsening End of Shift Summary: Problem: Cognitive: Catrachita Kaiser Fall Risk Goal: Toileting Needs Outcome: Progressing Call light within reach when patient needs for toileting * Leah Philippe NP - 04/27/2024 11:31 AM EST Images from the original note were not included. VEE PROGRESS NOTE Date: 04/27/2024 Author: Leah Philippe NP Patient ID: Amalia Ann is a 48 y.o. female : 1975 MR#: [id number] SUBJECTIVE Subjective No complaints today patient is [...] Suspect secondary to intrinsic atherosclerotic disease likely direct marketing analyst now occluded CTA shows right V4 high-grade [...] Language Pathology Speech Language Pathology Treatment Subjective PERSONNEL MONITOR Start Time: 1000 PERSONNEL MONITOR Stop Time: 1100 PERSONNEL MONITOR Time Calculation (min): 60 min Subjective: Pt was alert and sitting urpight in wheelchair for the session. Pt reported that she had a good session w/ PT and feelings like she is getting stronger. Pt was cooperative throughout the session. bull chain operator Soo, #[id number], was used for the session. Objective General [...] Contact Time Entry: 30 Memory: With this designer/writer, pt completed a log for therapy notes. [...] and was in agreement w/ recommendations. Assessment/Plan PERSONNEL MONITOR Assessment PERSONNEL MONITOR Assessment Results: Cognitive impairments Evaluation/Treatment Tolerance: Patient tolerated treatment well Plan Treatment/Interventions: Cognitive linguistic functioning PERSONNEL MONITOR Plan: Skilled PERSONNEL MONITOR PERSONNEL MONITOR Frequency: 5-7 days per week PERSONNEL MONITOR Duration of Sessions: 45-60 min per session PERSONNEL MONITOR Treatments per day: 1 time per day [...] Education Comments No comments found. * Penelope Lisbeth, RD - 04/26/2024 12:31 PM EST 04/26/2024 @ 12:31 PM EST Nutrition Follow Up Note Argentine speaking- Video internet marketer utilizedChary #[id number] Reason for RD Intervention: Assessment Type: Follow-up [...] medicationsat home as they were . Appetite WOVEN BLIND LOOM TENDER: Good Intake WOVEN BLIND LOOM TENDER: Stable Weight History: Wt Readings from Last [...] Tellez, OT - 04/26/2024 12:30 PM EST [facility] Occupational Therapy Treatment Note 04/26/24 Patient: Amalia Ann : 1975 Age: 48 y.o. Gender: female Diagnosis: No Principal Problem: There is no principal problem currently on the Problem List. Please update the Problem List and refresh. Primary Rehab (Etiologic) Diagnosis: Patient Active Problem List Diagnosis HTN (hypertension) DM (diabetes mellitus) (CMS/HCC) CVA (cerebral vascular accident) ([facility]/HCC) PMH: Past Medical History: Diagnosis Date CVA (cerebral vascular accident) ([facility]/HCC) DM (diabetes mellitus) ([facility]) HTN (hypertension) PSH: History reviewed. No pertinent [...] to shower. Pt elevated supine to don resident care director socks. Pt elevated supine > EOB S. [...] seated on chair to doff pants and resident care director socks. Pt doffing UB clothing while seated with S. Pt completing UB bathing with S and min cues for use of L UE throughout. Pt completing LB bathing with Steadying A for bathing buttocks. Pt donning resident care director socks and hospital lopez while seated in [...] completing grooming with S. Pt requesting new resident care director socks, pt doffing/donning new resident care director socks S. Pt engaged in standing activity [...] Problems (Active) Template: Occupational Therapy Problem: OT Auditor Appraiser Goals Dates: Start: 04/20/24 Goal: Pt will [...] Safe Use of DME, taught by Joshua Tellez, OT at 04/26/2024 2:46 PM. Learner: Patient [...] the original note were not included. [facility] Daily Progress Note Patient name: Amalia [...] Lying Pulse: 64 64 63 60 Resp: 16 18 18 Temp: 36.7 ??C (98.1 ??F) 37.1 ??C [...] care -secondary to CVA -continue PT, OT, PERSONNEL MONITOR, and nursing care #Acute anterior right pontine stroke #Left hemiparesis #Dysarthria -Aspirin 81mg daily -Plavix 75mg daily -Atorvastatin 80mg nightly #Dysphagia -IDDSI 6 diet with IDDSI 2 mildly thick liquids -continue PERSONNEL MONITOR #Hypertension -Lisinopril 10mg daily increased to 20mg [...] from the original note were not included. [facility]AMPA PROGRESS NOTE Date: 04/26/2024 Author: Leah Philippe NP Patient ID: Amalia Ann is a 48 y.o. female : 1975 MR#: [id number] SUBJECTIVE Subjective No complaints today patient is [...] Lying Pulse: 64 64 63 60 Resp: 16 18 18 Temp: 36.7 ??C (98.1 ??F) 37.1 ??C [...] Suspect secondary to intrinsic atherosclerotic disease likely direct marketing analyst now occluded CTA shows right V4 high-grade [...] DVT prophylaxis Lovenox DAILY CARE CHECKLIST * MARIE Arroyo - 04/26/2024 11:53 AM EST Speech Language Pathology Speech Language Pathology Treatment Subjective PERSONNEL MONITOR Start Time: 1000 PERSONNEL MONITOR Stop Time: 1100 PERSONNEL MONITOR Time Calculation (min): 60 min Subjective: Pt [...] Contact Time Entry: 30 Memory: With this designer/writer, pt completed a log for therapy notes. [...] and was in agreement w/ recommendations. Assessment/Plan PERSONNEL MONITOR Assessment PERSONNEL MONITOR Assessment Results: Cognitive impairments Evaluation/Treatment Tolerance: Patient tolerated treatment well Plan Treatment/Interventions: Cognitive linguistic functioning PERSONNEL MONITOR Plan: Skilled PERSONNEL MONITOR PERSONNEL MONITOR Frequency: 5-7 days per week PERSONNEL MONITOR Duration of Sessions: 45-60 min per session PERSONNEL MONITOR Treatments per day: 1 time per day Goals Encounter Problems Encounter Problems (Active) Template: Speech Therapy Problem: Cognitive/Linguistics Dates: Start: 04/20/24 Goal: Patient will participate in further assessment of cognitive-linguistic skills Dates: Start: 04/20/24 Expected End: 05/04/24 Description: Goal Type: STG, Performance Level: Independent Outcomes Date/Time User Outcome 04/25/24 1116 Sherri Rendon PERSONNEL MONITOR Progressing Goal: Patient will identify and utilize [...] EST I attest that I, Amber Duque M.S.,[facility]-PERSONNEL MONITOR, was physically involved in the ongoing assessment, decision making, and interventions provided during today's patient care session. I have reviewed all documentation for today's 04/26/24, entered by Speech Therapy Fellow, Sherri Rendon, and further attest that it is an accurate clinical record of today's encounter, including accurate and appropriate charges. * Elzbieta Garcia, PT - 04/26/2024 8:54 AM EST [facility] Physical Therapy Treatment Note 04/26/2024 Patient: Amalia Ann : 1975 Age: 48 y.o. Gender: female Primary Language: Palauan Diagnosis: No Principal Problem: There is no [...] agreeable to participating in therapy session, video internet marketer used [id number] used for therapy session. Therapist and pt [...] foot catching during terminal swing, pt needing [id number]-ail-[id number] x1. Pt with x1 LOBanteriorly. Pt acknowledging increased fatigue at end of therapy session. Pt dep. Brought back to room in WC. Pt left seated in WC, call noriega in reach, chair alarm on, all needs met. Education: Education Documentation Mobility Training, taught by Elzbieta Garcia PT at 04/26/2024 12:10 PM. Learner: Patient Readiness: Acceptance Method: Catering Operations Manager, Demonstration, Explanation Response: Verbalizes Understanding, Demonstrated Understanding, [...] Problems (Active) Template: Physical Therapy Problem: PT Correction Goals Dates: Start: 04/20/24 Goal: mod I bed mobility Dates: Start: 04/20/24 Expected End: 05/11/24 Outcomes Date/Time User Outcome 04/26/24 1212 Elzbieta Garcia PT Progressing Goal: mod I transfers with LAD Dates: Start: 04/20/24 Expected End: 05/11/24 Outcomes Date/Time User Outcome 04/26/24 121Sita Garcia, PT Progressing Goal: mod I wc [...] 2:10 PM EST Social Work Note Integrated Service Mechanic: DX: Adjustment DO: Met with patient this [...] get home. Will continue to monitor. Sheron Dye MS Clinician * Elzbieta Garcia, PT - 04/25/2024 1:22 PM EST [facility] Physical Therapy Treatment Note 04/25/2024 Patient: Amalia Ann : 1975 Age: 48 y.o. Gender: female Primary Language: Argentine Diagnosis: No Principal Problem: There is no principal problem currently on the Problem List. Please update the Problem List and refresh. Past Medical History: Diagnosis Date CVA (cerebral vascular accident) ([facility]) DM (diabetes mellitus) ([facility]) HTN (hypertension) History reviewed. No pertinent surgical [...] agreeable to participating in therapy session. Video internet marketer [id number] Alejandro and [id number] Anthony used for therapy session. Pt completed [...] Training, taught by Elzbieta Garcia PT at 04/25/2024 2:00 PM. Learner: Patient [...] Problems (Active) Template: Physical Therapy Problem: PT Auditor Appraiser Goals Dates: Start: 04/20/24 Goal: mod I [...] 1:07 PM EST Spoke to Noelle at [facility] new patient line. Pt is assigned to [...] the original note were not included. [facility] Daily Progress Note Patient name: Amalia [...] g, 25 g, intravenous, q15 min PRN, BARD Hicks dextrose 15 gram/60 mL oral solution [...] care -secondary to CVA -continue PT, OT, PERSONNEL MONITOR, and nursing care #Acute anterior right pontine stroke #Left hemiparesis #Dysarthria -Aspirin 81mg daily -Plavix 75mg daily -Atorvastatin 80mg nightly #Dysphagia -IDDSI 6 diet with IDDSI 2 mildly thick liquids -continue PERSONNEL MONITOR #Hypertension -Lisinopril 10mg daily increased to 20mg daily on 04/25 #Diabetes mellitus type 2 -noncompliant with treatment prior to admission -needs education -needs glucometer and supplies on dicharge -ISS -Lantus 22 units QHS #Bowel management -Colace 100mg BID -last BM 04/23 after MOM -Senna 2 tabs QHS started 04/24 #DVT prophylaxis: Lovenox 40mg daily Associated attestation - Neida Bailey DO - 04/25/2024 4:51 PM EST Agree with progress note, assessment, and plan as documented by PA today. * Sherri Rendon, MARIE - 04/25/2024 11:18 AM EST Speech Language Pathology Speech Language Pathology Treatment Subjective PERSONNEL MONITOR Start Time: 0850 PERSONNEL MONITOR Stop Time: 1000 PERSONNEL MONITOR Time Calculation (min): 70 min Subjective: Pt was alert and sitting upright in her bed for the session. Pt was pleasant and cooperative throughout the session. bull chain operator Fabrizio, #[id number], was used for the session. Objective General [...] to function independently on this task Assessment/Plan PERSONNEL MONITOR Assessment PERSONNEL MONITOR Assessment Results: Cognitive impairments Evaluation/Treatment Tolerance: Patient tolerated treatment well Plan Treatment/Interventions: Cognitive linguistic functioning PERSONNEL MONITOR Plan: Skilled PERSONNEL MONITOR PERSONNEL MONITOR Frequency: 5-7 days per week PERSONNEL MONITOR Duration of Sessions: 45-60 min per session PERSONNEL MONITOR Treatments per day: 1 time per day PERSONNEL MONITOR - Next Appointment: 04/26/24 Goals Encounter Problems [...] Min assist Outcomes Date/Time User Outcome 04/25/24 MARIE Hogan Progressing Goal: Pt will improve intelligibility at [...] 04/29/24 Description: Outcomes Date/Time User Outcome 04/24/24 141MARIE Abdullahi Progressing Goal: Pt will complete basic to mod level auditory/visual attention tasks - 90% accuracy given mod A. Dates: Start: 04/23/24 Expected End: 04/30/24 Description: Outcomes Date/Time User Outcome 04/24/24 141MARIE Abdullahi Progressing Goal: Pt will participate in sequencing/direction [...] EST I attest that I, Amber Duque M.S.,[facility]-PERSONNEL MONITOR, was physically involved in the ongoing assessment, [...] from the original note were not included. [facility]AMPA PROGRESS NOTE Date: 04/25/2024 Author: Leah Philippe NP Patient ID: Amalia Ann is a 48 y.o. female : 1975 MR#: [id number] SUBJECTIVE Subjective No complaints today patient is [...] Suspect secondary to intrinsic atherosclerotic disease likely direct marketing analyst now occluded CTA shows right V4 high-grade [...] prophylaxis Lovenox DAILY CARE CHECKLIST * Joshua Tellez OT - 04/25/2024 10:00 AM EST [facility] Occupational Therapy Treatment Note 04/25/24 Patient: Amalia Ann : 1975 Age: 48 y.o. Gender: female Diagnosis: No Principal Problem: There is no principal problem currently on the Problem List. Please update the Problem List and refresh. Primary Rehab (Etiologic) Diagnosis: Patient Active Problem List Diagnosis HTN (hypertension) DM (diabetes mellitus) ([facility]) CVA (cerebral vascular accident) ([facility]/HCC) PMH: Past Medical History: Diagnosis Date CVA (cerebral vascular accident) (CMS/HCC) DM (diabetes mellitus) ([facility]) HTN (hypertension) PSH: History reviewed. No pertinent [...] toilet upon arrival. Pt agreeable to session. Argentine <> Palauan video crime prevention police officer used throughout session. Pt completing toilet hygiene [...] Problems (Active) Template: Occupational Therapy Problem: OT Correction Goals Dates: Start: 04/20/24 Goal: Pt will [...] Therapy OT Individual: 90 I certify that Scottie, Joshua Tellez OT , was present and participatory during the delivery of careand directed all aspects of care and decision making during this session. Note generated by arnol edited for content accuracy. I have reviewed [...] called no appts aren't available. * Elzbieta Garcia PT - 04/24/2024 3:09 PM EST [facility] Physical Therapy Treatment Note 04/24/2024 Patient: Amalia Ann : 1975 Age: 48 y.o. Gender: female Primary Language: Argentine Diagnosis: No Principal Problem: There is no principal problem currently on the Problem List. Please update the Problem List and refresh. Past Medical History: Diagnosis Date CVA (cerebral vascular accident) ([facility]/HCC) DM (diabetes mellitus) ([facility]) HTN (hypertension) History reviewed. No pertinent surgical [...] completed bed mobility steadying assistance, therapist donning sneakers EOB. pt cued for slow pace for transfer no AD, partial A x1. Pt completed mass rep stand pivot transfers, [id number] blocking LLE, cues for decreased speed with transfers, pt with x3 LOB posteriorly and Left max-A for LOB recovery. Pt completed x4 STS with RLE on 3 inch step, pt needing partial A for standing and [id number] x1 in standing, pt cued for hip extension and knee extension, pt with posterior LOB. Pt completed x2 STS with no step, pt biased on RLE >LLE for WB. Pt completed x2 stand pivot transfers from mat to WC, WC mobility steadying ass istance-partial A back to room. Partial A for stand pivot transfer to EOB, posterior LOB onto bed. Therapist doffing sneakers EOB, steadying assistance for sit to supine. Pt left supine in bed, call noriega in reach, bed alarm on, all needs met. Education: Education Documentation Mobility Training, taught by Elzbieta Garcia PT at 04/24/2024 3:16 PM. Learner: Patient [...] Problems (Active) Template: Physical Therapy Problem: PT Auditor Appraiser Goals Dates: Start: 04/20/24 Goal: mod I [...] Physical Therapy PT Individual: 60 * Carlotta Meyer, WOVEN BLIND LOOM TENDER - 04/24/2024 2:54 PM EST [facility] Physical Therapy Treatment Note 04/24/2024 Patient: Amalia Ann : 1975 Age: 48 y.o. Gender: female Primary Language: ukrainian Diagnosis: No Principal Problem: There is no [...] Problems (Active) Template: Physical Therapy Problem: PT Correction Goals Dates: Start: 04/20/24 Goal: mod I [...] bedside to review post team recommendations. Utilized Preschool Lead Teacher #Meena [id number]. Discussed 4 week goals with a tentative discharge set for 05/17/24. Pt became tearful and happy she would be home for her [birth year] on [birth year]. Discussed needing to be independent with ADLS on dischargedue to limited support. Services TBD. Pt will need new patient appointment with PCP. Several calls placed. [facility] practices are not currently accepting plan. Message left for new patient line at [facility]. 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 Pt had no questions or concerns at this time. Pt in agreement with tentative discharge plan. * MARIE Shrestha - 04/24/2024 1:20 PM EST Speech Language Pathology Speech Language Pathology Treatment Subjective PERSONNEL MONITOR Start Time: 1320 PERSONNEL MONITOR Stop Time: 1405 PERSONNEL MONITOR Time Calculation (min): 45 min Subjective: bull chain operator Meena #[id number] utilized. Objective General Visit Info Pt teary [...] and order of steps. Memory: With this designer/writer, Pt completed med log. Able to indp [...] as indp as possible with PT/OT/ST. Assessment/Plan PERSONNEL MONITOR Assessment Evaluation/Treatment Tolerance: Patient tolerated treatment well Plan Treatment/Interventions: Cognitive linguistic functioning PERSONNEL MONITOR Plan: Skilled PERSONNEL MONITOR PERSONNEL MONITOR Frequency: 5-7 days per week PERSONNEL MONITOR Duration of Sessions: 45-60 min per session PERSONNEL MONITOR Treatments per day: 1 time per day PERSONNEL MONITOR - Next Appointment: 04/25/24 Goals Encounter Problems [...] PM. Learner: Patient Readiness: Acceptance Method: Explanation, Catering Operations Manager, Handout Response: Verbalizes Understanding, Needs Reinforcement Comment: Memory strategies, speech strategies, following directions Cognition, taught by MARIE Shrestha at 04/24/2024 1:20 PM. Learner: Patient Readiness: Acceptance Method: Explanation, Catering Operations Manager, Handout Response: Verbalizes Understanding, Needs Reinforcement Comment: Memory strategies, speech strategies, following directions Education Comments No comments found. Associated attestation - Jen Duque SLP - 04/25/2024 6:37 AM EST I attest that I, Amber Duque M.S.,[facility]-PERSONNEL MONITOR, was physically involved in the ongoing assessment, [...] from the original note were not included. [facility] PROGRESS NOTE Date: 04/24/2024 Author: BRAD Viramontes Patient ID: Amalia Ann is a 48 y.o. female : 1975 MR#: [id number] SUBJECTIVE Subjective Patient seen. She has no [...] Suspect secondary to intrinsic atherosclerotic disease likely direct marketing analyst now occluded CTA shows right V4 high-grade [...] CARE CHECKLIST * Neida Bailey, DO - 04/24/2024 11:07 AM EST Images from the original note were not included. [facility] Daily Progress Note Patient [...] care -secondary to CVA -continue PT, OT, PERSONNEL MONITOR, and nursing care #Acute anterior right pontine stroke #Left hemiparesis #Dysarthria -Aspirin 81mg daily -Plavix 75mg daily -Atorvastatin 80mg nightly #Dysphagia -IDDSI 6 diet with IDDSI 2 mildly thick liquids -continue PERSONNEL MONITOR #Hypertension -Lisinopril 10mg daily increased to 20mg daily on 04/25 #Diabetes mellitus type 2 -noncompliant with treatment prior to admission -needs education -needs glucometer and supplies on dicharge -ISS -Lantus 22 units QHS #Bowel management -Colace 100mg BID -last BM 04/23 after MOM -Senna 2 tabs QHS started 04/24 #DVT prophylaxis: Lovenox 40mg daily * Joshua Tellez OT - 04/24/2024 8:30 AM EST [facility] Occupational Therapy Treatment Note 04/24/24 Patient: Amalia Ann : 1975 Age: 48 y.o. Gender: female Diagnosis: No Principal Problem: There is no principal problem currently on the Problem List. Please update the Problem List and refresh. Primary Rehab (Etiologic) Diagnosis: There is no problem list on file for this patient. PMH: Past Medical History: Diagnosis Date CVA (cerebral vascular accident) ([facility]) DM (diabetes mellitus) ([facility]) HTN (hypertension) PSH: History reviewed. No pertinent [...] upon arrival. Agreeable to session. Vitals assessed. Argentine <> Palauan video crime prevention police officer used throughout session. Elevated supine > EOB [...] increased difficulty with shoulder flexion. Pt provided [employer] [place] to wipe board. Pt requiring min-max assist [...] Problems (Active) Template: Occupational Therapy Problem: OT Auditor Appraiser Goals Dates: Start: 04/20/24 Goal: Pt will [...] 8:30 AM EST Social Work Note Integrated Service Mechanic: DX: Adjustment DO: Met with patient this [...] EST Type of Visit: Initial Visit and Financial Management Consultant Rounding Reason for Visit: Spiritual/Emotional Support and Spiritual Assessment Time Spent: 10 Minutes Location: [address] [place] [address] Sacramental Encounters: Spiritual Distress Assessment: Spiritual Distress [...] in bed at the time of visit. Argentine speaking, raised no concern. Voiced family support [...] usually? Transcendence Do you have a particular restoration, azalea, or spirituality? Is your restoration/spirituality/azalea challenged by what is happening to you [...] of severe unmet spiritual needs * Joshua Tellez, OT - 04/23/2024 12:30 PM EST [facility] Occupational Therapy Treatment Note 04/23/24 Patient: [...] (cerebral vascular accident) (CMS/HCC) DM (diabetes mellitus) ([facility]) HTN (hypertension) PSH: History reviewed. No pertinent [...] upon arrival. Agreeable to session. Vitals assessed. Argentine <> Palauan video crime prevention police officer used throughout session. Pt self-propelling w/c from [...] with verbal cues for thoroughness, Pt donning resident care director socks with S using figure four. Pt donning [facility]. Pt stand pivot with mod A from [...] to thread L LE first. Pt donning resident care director socks with S and cues for use [...] Problems (Active) Template: Occupational Therapy Problem: OT Auditor Appraiser Goals Dates: Start: 04/20/24 Goal: Pt will [...] given 3 printed handouts regarding diabetes (in ukrainian) 1- blood sugar emergencies 2- Home blood sugar testing 3- diabetes Type 2 Patient read the material and verbalized an understanding of instructions * Elzbieta Garcia, PT - 04/23/2024 12:12 PM EST [facility] Physical Therapy Treatment Note 04/23/2024 Patient: Amalia Ann : 1975 Age: 48 y.o. Gender: female Primary Language: Argentine Diagnosis: No Principal Problem: There is no [...] rep stand pivot transfers with no AD, [id number]-[id number] x1 poor eccentric control. Pt completed 2x15ft, [...] provided on thickened liquids and aspiration precautions, PERSONNEL MONITOR Shayy made aware. Pt left seated in WC, call noriega in reach, chair alarm on all needs met. Education: Education Documentation Mobility Training, taught by Elzbieta Garcia PT at 04/23/2024 2:52 PM. Learner: Patient Readiness: Acceptance Method: Explanation, Demonstration, Catering Operations Manager Response: Verbalizes Understanding, Demonstrated Understanding Comment: Education [...] Problems (Active) Template: Physical Therapy Problem: PT Correction Goals Dates: Start: 04/20/24 Goal: mod I [...] Minutes Physical Therapy PT Individual: 80 * Shayy Sanchez, PERSONNEL MONITOR - 04/23/2024 11:30 AM EST Speech Language Pathology Speech Language Pathology Treatment Subjective PERSONNEL MONITOR Start Time: 1130 PERSONNEL MONITOR Stop Time: 1215 PERSONNEL MONITOR Time Calculation (min): 45 min Subjective: 'I feel good'. bull chain operator Elsy #[id number] utilized. See flowsheet, diet upgraded. Objective General Visit Info General Family/Caregiver Present: No Treatment Swallow Function Swallow/Oral Function Treatment Time Entry: 15 Swallow Activity 1: Pt trialed regular solids and thin liquids: tolerated w/ functional oral prep, min oral residue that cleared with liquid wash, w/o overt s/sx of aspiration/penetration. Diet Recommendations: Regular solids/thin liquids Swallow Comments: Pt reporting completion of MBSS at [facility] prior to admission to rehab. [facility]btainedreport [facility] Children and reviewed report. MBSS report recommending regular/thin, [...] and min A for calculator use. Assessment/Plan PERSONNEL MONITOR Assessment Dysphagia Diagnosis: Within Functional Limits Evaluation/Treatment Tolerance: Patient tolerated treatment well Medical Staff Made Aware: Yes Comments: RN aware of diet upgrade. Plan Treatment/Interventions: Cognitive linguistic functioning PERSONNEL MONITOR Plan: Skilled PERSONNEL MONITOR PERSONNEL MONITOR Frequency: 5-7 days per week PERSONNEL MONITOR Duration of Sessions: 45-60 min per session PERSONNEL MONITOR Treatments per day: 1 time per day Diet Recommendations: Regular solids/thin liquids PERSONNEL MONITOR - Next Appointment: 04/24/24 Goals Encounter Problems [...] Learner: Patient Readiness: Acceptance Method: Explanation, Handout, Catering Operations Manager Response: Verbalizes Understanding Comment: Speech/intelligibility strategies, signs of stroke with RAPIDO acronym Education Comments No comments found. Associated attestation - Jen Duque SLP - 04/23/2024 6:48 PM EST I attest that I, Amber Duqeu M.S.,[facility]-PERSONNEL MONITOR, was physically involved in the ongoing assessment, [...] the original note were not included. [facility] Daily Progress Note Patient name: Amalia [...] care -secondary to CVA -continue PT, OT, PERSONNEL MONITOR, and nursing care #Acute anterior right pontine stroke #Left hemiparesis #Dysarthria -Aspirin 81mg daily -Plavix 75mg daily -Atorvastatin 80mg nightly #Dysphagia -IDDSI 6 diet with IDDSI 2 mildly thick liquids -continue PERSONNEL MONITOR #Hypertension -Lisinopril 10mg daily #Diabetes mellitus type 2 -ISS -Lantus 22 units QHS #Bowel management -Colace 100mg BID #DVT prophylaxis: Lovenox 40mg daily Associated attestation - Neida Bailey DO - 04/23/2024 4:06 PM EST Agree with progress note, assessment, and plan as documented by BRAD today. * Sheron Dye - 04/23/2024 7:30 AM EST Social Work Note Integrated Service Mechanic: DX: Adjustment DO: Met with patient this [...] daily for 5 days. 60 minutes of PERSONNEL MONITOR daily for 5 days. Anticipated Functional Outcomes/Rehab [...] the original note were not included. [facility] Daily Progress Note Patient name: Amalia [...] 64 63 70 60 Resp: 16 18 18 Temp: 37 ??C (98.6 ??F) 36.3 [...] Nightly, BRAD Hicks, 80 mg at 04/21/24 204 clopidogreL (PLAVIX) tablet 75 mg, 75 mg, [...] oral, Daily, BRAD Hicks, 10 mg at 04/22/24 0915 magnesium hydroxide (MILK OF MAGNESIA) 400 mg/5 [...] care -secondary to CVA -continue PT, OT, PERSONNEL MONITOR, and nursing care #Acute anterior right pontine stroke #Left hemiparesis #Dysarthria -Aspirin 81mg daily -Plavix 75mg daily -Atorvastatin 80mg nightly #Dysphagia -IDDSI 6 diet with IDDSI 2 mildly thick liquids -continue PERSONNEL MONITOR #Hypertension -Lisinopril 10mg daily #Diabetes mellitus type 2 -ISS -Lantus 22 units QHS #Bowel management -Colace 100mg BID #DVT prophylaxis: Lovenox 40mg daily * Shayy Sanchez, MARIE - 04/22/2024 12:15 PM EST Speech Language Pathology Speech Language Pathology Treatment Subjective PERSONNEL MONITOR Start Time: 1215 PERSONNEL MONITOR Stop Time: 1305 PERSONNEL MONITOR Time Calculation (min): 50 min Subjective: Pt agreeable to ST. bull chain operator [place] #[id number] utilized. See updated goals. Plan for further [...] provided Pt with handout of strategies in Argentine. Reviewed each strategy and provided examples of [...] Test Results: Comments: Impaired clock drawing. Assessment/Plan PERSONNEL MONITOR Assessment Evaluation/Treatment Tolerance: Patient tolerated treatment well Comments: Pt tearful towards end of session, expressed frustration with current situation. RemindedPt of progress and rationale for rehab stay. Plan Treatment/Interventions: Cognitive linguistic functioning, Swallow function PERSONNEL MONITOR Plan: Skilled PERSONNEL MONITOR PERSONNEL MONITOR Frequency: 5-7 days per week PERSONNEL MONITOR Duration of Sessions: 45-60 min per session PERSONNEL MONITOR Treatments per day: 1 time per day PERSONNEL MONITOR - Next Appointment: 04/23/24 Goals Encounter Problems [...] Patient Readiness: Eager Method: Explanation, Handout, Demonstration, Catering Operations Manager Response: Verbalizes Understanding, Needs Reinforcement Comment: Speech/intelligibility strategies, memory strategies Cognition, taught by MARIE Shrestha at 04/22/2024 12:15 PM. Learner: Patient Readiness: Eager Method: Explanation, Handout, Demonstration, Catering Operations Manager Response: Verbalizes Understanding, Needs Reinforcement Comment: Speech/intelligibility strategies, memory strategies Education Comments No comments found. Associated attestation - eJn Duque SLP - 04/22/2024 4:45 PM EST I attest that I, Amber Duque M.S.,[facility]-PERSONNEL MONITOR, was physically involved in the ongoing assessment, decision making, and interventions provided during today's patient care session. I have reviewed all documentation for today's 04/22/24, entered by Speech Therapy Fellow, Shayy Meyer, and further attest that it is an accurate clinical record of today's encounter, including accurate and appropriatecharges. * Iza Mendoza, PT - 04/22/2024 10:00 AM EST [facility] Physical Therapy Treatment Note 04/22/2024 Patient: Amalia Ann : 1975 Age: 48 y.o. Gender: female Primary Language: Argentine Diagnosis: No Principal Problem: There is no principal problem currently on the Problem List. Please update the Problem List and refresh. Past Medical History: Diagnosis Date CVA (cerebral vascular accident) (CMS/HCC) DM (diabetes mellitus) (CMS/[facility]) HTN (hypertension) History reviewed. No pertinent surgical [...] Pt received in wheelchair, agreeable to PT. Argentine video internet marketer utilized, Abhinav ID#[id number].Supervision wheelchair mobility to the gym, RUE/RLE propulsion, [...] Learner: Patient Readiness: Acceptance Method: Explanation, Demonstration, Catering Operations Manager Response: Verbalizes Understanding, Needs Reinforcement Comment: gait [...] Problems (Active) Template: Physical Therapy Problem: PT Correction Goals Dates: Start: 04/20/24 Goal: mod I [...] Physical Therapy PT Individual: 60 * Joshua Tellez, OT - 04/22/2024 8:30 AM EST [facility] Occupational Therapy Treatment Note 04/22/24 Patient: [...] supine upon arrival. Pt agreeable to session. Argentine <> Palauan video internet marketer used throughout session. Pt donning socks while [...] Problems (Active) Template: Occupational Therapy Problem: OT Correction Goals Dates: Start: 04/20/24 Goal: Pt will [...] pt at bedside for initial assessment. Utilized Preschool Lead Teacher Vipin #[id number]. Introduced self and CM role. Discussed IRF level of care, team meeting and average LOS. Demographics confirmed. Pt lives in her mothers apartment with her boyfriend Page. Apartment in on the 4th floor, no elevator access. Pt was independent with ADLS and IADLS. Drives. No AD. Pt is unemployed, no income. Pt receives food stamps. 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 Pts mother also has 3 STATISTICAL PROGRAMMER to assist at home. Pt does not have a PCP, has never had a PCP. Pt states she was diagnosed with diabetes 6 years ago during a hospital stay in [place] but never treated her diabetes. Pt has no family local, brother is in [place]. No children. Pts boyfriend is primary support who currently works nights 10pm-7am. Pt states she was recently hospitalized in March at [facility] after having a stroke and was only [...] العراقي, PT - 04/21/2024 3:24 PM EST [facility] Physical Therapy Treatment Note 04/21/2024 Patient: Amalia Ann : 1975 Age: 48 y.o. Gender: female Primary Language: ukrainian Diagnosis: CVA Past Medical History: Diagnosis Date [...] Problems (Active) Template: Physical Therapy Problem: PT Auditor Appraiser Goals Dates: Start: 04/20/24 Goal: mod I [...] Barlow OT - 04/21/2024 1:58 PM EST [facility] Occupational Therapy Treatment Note 04/21/24 Patient: [...] Matching Cards Therapeutic Activity 2: Pincer Grasp Turkey Picker Pt supine in bed upon arrival, agreeable to participate in therapy. bull chain operator #[id number] used throughout session for communication. Vitals assessed, see chart above. Pt requesting to perform light wash-up and get dressed prior to going to the gym. Min A to perform supine to sit EOB, pt demoing impulsivity by attempting to transfer without therapist's help, requiring cues and overall mod A to perform SPT. Dep transport to edge of sink. Pt using RUE to perform all oral [...] using pincer grasp of L hand to quill picking machine operator tiny pegs and place them in thecup. Pt intermittently demonstrating a raking grasp to quill picking machine operator pegs, but overall demonstrated 50% accuracy with [...] Problems (Active) Template: Occupational Therapy Problem: OT Correction Goals Dates: Start: 04/20/24 Goal: Pt will [...] OT Start Time: 0830 OT Stop Time: 0930 OT Time Calculation (min): 60 min Therapy [...] End of Shift Summary: Pt alert primarily Argentine speaking but understands enough Palauan to make needs known. No c/o pain .Appetite good. Working toward goals. * MARIE Shrestha - 04/21/2024 11:30 AM EST Speech Language Pathology Speech Language Pathology Treatment Subjective PERSONNEL MONITOR Start Time: 1130 PERSONNEL MONITOR Stop Time: 1220 PERSONNEL MONITOR Time Calculation (min): 50 min Subjective: Pt asleep upon arrival. Agreeable to tx. bull chain operator Moni #[id number] utilized. Prior to treatment, discussed changes since [...] diagnosis, prognosis and research. Spontaneous speech content: 10 Spontaneous speech fluency: 01/22 Yes/No questions: 01/22 Sequential commands: DNT/10 - see 2-3 step commands below. Object namin/10 Reading: DNT/10 Writing: DNT/10 Apraxia: DNT/10 Administered selected subtests of [place] Battery with the following results: Immediate/Working Memory: [...] reduced/imprecise articulation. Noted mild slowed/slurred speech. Assessment/Plan PERSONNEL MONITOR Assessment PERSONNEL MONITOR Assessment Results: Cognitive impairments, Swallowing impairments, Speech impairments Dysphagia Diagnosis: Mild oral stage dysphagia, Mild pharyngeal stage dysphagia Prognosis: Good Evaluation/Treatment Tolerance: Patient tolerated treatment well Plan Treatment/Interventions: Cognitive linguistic functioning, Swallow function PERSONNEL MONITOR Plan: Skilled PERSONNEL MONITOR PERSONNEL MONITOR Frequency: 5 days per week PERSONNEL MONITOR Duration of Sessions: 45-60 min per session PERSONNEL MONITOR Treatments per day: 1 time per day Diet Recommendations: IDDSI 6/2 soft and bite size solids and nectar thick liquids. PERSONNEL MONITOR - Next Appointment: 04/22/24 Goals Encounter Problems Encounter Problems (Active) Template: Speech Therapy Problem: Cognitive/Linguistics Dates: Start: 04/20/24 Goal: Patient will participate in further assessment of cognitive-linguistic skills Dates: Start: 04/20/24 Expected End: 05/04/24 Description: Outcomes Date/Time User Outcome 04/21/24 1240 Shayy Sanchez, PERSONNEL MONITOR Progressing Goal: Patient will identify and utilize [...] AM. Learner: Patient Readiness: Acceptance Method: Explanation, Catering Operations Manager Response: Verbalizes Understanding, Needs Reinforcement Comment: Swallowing/language/speech/cognitive changes after stroke, rationale for modified diet, updated goals Cognition, taught by MARIE Shrestha at 04/21/2024 11:30 AM. Learner: Patient Readiness: Acceptance Method: Explanation, Catering Operations Manager Response: Verbalizes Understanding, Needs Reinforcement Comment: Swallowing/language/speech/cognitive changes after stroke, rationale for modified diet, updated goals Modified Diet Training, taught by MARIE Shrestha at 04/21/2024 11:30 AM. Learner: Patient Readiness: Acceptance Method: Explanation, Catering Operations Manager Response: Verbalizes Understanding, Needs Reinforcement Comment: Swallowing/language/speech/cognitive changes after stroke, rationale for modified diet, updated goals Education Comments No comments found. Associated attestation - Jen Duque SLP - 04/21/2024 8:33 PM EST I attest that I, Amber Duque M.S.,[facility]-PERSONNEL MONITOR, was physically involved in the ongoing assessment, [...] a 48 y.o. female : 1975 MR#: [id number] SUBJECTIVE Subjective Patient seen. 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 Gender: female Primary Language: ukrainian Diagnosis: No Principal Problem: There is no principal problem currently on the Problem List. Please update the Problem List and refresh. Past Medical History: Diagnosis Date CVA (cerebral vascular accident) ([facility]/HCC) DM (diabetes mellitus) ([facility]) HTN (hypertension) History reviewed. No pertinent surgical history. Allergies: has No Known Allergies. Precautions: Medical Precautions: Fall Risk Safety Interventions: ID band on, Bed alarm, Personal alarm on RUE Weight Bearing Status: Full LUE Weight Bearing Status: Full, As Tolerated RLE Weight Bearing Status: Full LLE Weight Bearing Status: Full NURSING RECOMMENDATIONS Bed Mobility: Transfers: Ambulation: SUBJECTIVE Prior Level of Function: Level of Gilliam: Independent with mobility and functional transfers Ambulation [...] Physical Assistance Level: 26%-50% Comment: at tasha bar CARE Score - Sit to Stand: 3 Chair/Qfy-zr-Viwpu Transfer Assistance Needed: Physical assistance Physical Assistance Level: 51%-75% Comment: L knee buckling CARE Score - Chair/Jtm-xb-Jhhiu Transfer: 2 Toilet Transfer Assistance Needed: Physical [...] concerns CARE Score - 12 Steps: 88 Turkey Picker Object Picking Up Object Assistance Needed: Physical [...] Problems (Active) Template: Physical Therapy Problem: PT Correction Goals Dates: Start: 04/20/24 Goal: mod I [...] Comments No comments found. Session Start/Stop Time: 1290 Therapy Minutes Physical Therapy PT Individual: 60 * Ehsan Plasencia, DO - 04/20/2024 12:15 PM EST [facility] Daily Progress Note Patient name: Amalia Ann : 1975 SUBJECTIVE: Patient seen and examined in bed today. No acute events overnight. Ms Ann is a 48 yr old female who presented with left-sided weakness. MRI showed acute/subacute right pontine infarct without hemorrhage. Stabilized medically and transferred for acute inpatient rehab. Patient tearful initially today. Not fluent in Palauan, but was able to communicate with her and her clinical trial specialist. 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 Gender: female Primary Language: Argentine Diagnosis: No Principal Problem: There is no principal problem currently on the Problem List. Please update the Problem List and refresh. Primary Rehab (Etiologic) Diagnosis: There is no problem list on file for this patient. PMH: Past Medical History: Diagnosis Date CVA (cerebral vascular accident) (CMS/HCC) DM (diabetes mellitus) ([facility]) HTN (hypertension) PSH: History reviewed. No pertinent [...] arrival, with SO present, agreeable to participation. Argentine><Palauan internet marketer utilized for entirety of session. In elevated supine pt able to assume ring sittingposition. Pt bathed feet and donned resident care director socks with visual demo of one handed [...] None Prior Level of Function: Level of Gilliam: Independent with mobility and functional transfers Ambulation [...] General Observation: pt pleasant and cooperative throughout, Argentine><Palauan internet marketer utilized throughout. Cognition/Communication: Cognition Overall Cognitive Status: [...] thinking: Behavior not present (04/20/24 1200 : Joshua Tellez OT) Altered level of [...] for 3 weeks, in order to maximize Gilliam and safety prior to returning home. Goals: Encounter Problems Encounter Problems (Active) Template: Occupational Therapy Problem: OT Correction Goals Dates: Start: 04/20/24 Goal: Pt will [...] Minutes: Occupational Therapy OT Individual: 90 * Eli Cassidy, PERSONNEL MONITOR - 04/20/2024 10:30 AM EST PERSONNEL MONITOR Evaluation Subjective PERSONNEL MONITOR Start Time: 1030 PERSONNEL MONITOR Stop Time: 1145 PERSONNEL MONITOR Time Calculation (min): 75 min Subjective: Pt seen upright in bed, pt cooperative and pleasant Used bull chain operator. There is no problem list on file for this patient. Past Medical History: Diagnosis Date CVA (cerebral vascular accident) ([facility]) DM (diabetes mellitus) ([facility]) HTN (hypertension) History reviewed. No pertinent surgical history. Vitals/Pain Oxygen Therapy Oxygen Therapy: None (Room air) Objective General Visit Information: Pt stated they believe their speech is slower since the stroke ( kind of slow per internet marketer). Ptstated she takes care of her mother, [...] Labial Sensation: Within Functional Limits Lingual Appearance: [place] Lingual ROM: Within Functional Limits Lingual Symmetry: [...] vocal quality, and cough with additional swallow.) Eagle/Mildly Thick Presentation: Cup, Self fed, Straw Oral: [...] categorization: concrete (75%) and abstract (60%)) Assessment/Plan PERSONNEL MONITOR Assessment PERSONNEL MONITOR Assessment Results: Cognitive impairments, Swallowing impairments Dysphagia Diagnosis: Mild oral stage dysphagia, Mild pharyngeal stage dysphagia Prognosis: Good Evaluation/Treatment Tolerance: Patient tolerated treatment well Medical Staff Made Aware: Yes Comments: (Provided RN with information regarding diet modification.) Plan Treatment/Interventions: Cognitive linguistic functioning, Swallow function PERSONNEL MONITOR Plan: Skilled PERSONNEL MONITOR PERSONNEL MONITOR Frequency: 5 days per week PERSONNEL MONITOR Duration of Sessions: 45-60 min per session PERSONNEL MONITOR Treatments per day: 1 time per day PERSONNEL MONITOR - Evaluation Status: Complete PERSONNEL MONITOR Discharge Recommendations: Other (Comment) (To be determined [...] hypertension, diabetes. She was recently admitted to [facility] on 04/19/2024 with worsening left h emiparesis, [...] of left-sided weakness she was transferred to [facility] on 04/19/2024. She has partial command of Palauan but is primarily Argentine-speaking. Her clinical trial specialist has a good command of Palauan. PAST MEDICAL HISTORY: Past Medical History: Diagnosis Date CVA (cerebral vascular accident) ([facility]) DM (diabetes mellitus) ([facility]) HTN (hypertension) No Known Allergies History reviewed. [...] rapid finger movements. Not able to do [id number] on the left but accurate on the [...] Nightly, BRAD Hicks, 80 mg at 04/19/24 210 clopidogreL (PLAVIX) tablet 75 mg, 75 [...] in this encounter Consult Notes * Penelope Bob, JENNIFER - 04/22/2024 1:07 PM ESTAssociated Order(s): IP CONSULT TO NUTRITION SERVICES 04/22/2024 @ 12:57 PM EST Nutrition Follow Up Note Pt ukrainian speaking- unable to conduct interview as pt [...] a PCP. Lives with significant other. Receives [employer] benefits. Weight History: Wt Readings from Last 10 Encounters: 04/21/24 70 kg (154 lb 6.4 oz) Subjective Assessment: Consulted to see patient for MST score (weight loss 14-23 lb). Pt admitted for anterior right pontine stroke on 03/26. Pt with history of poorly controlled diabetes and hypertension. Followed by PERSONNEL MONITOR-recommending IDDSI 6 soft and bite sized/ IDDSI 2 mildly thick liquids. PO intake since admission has been good per therapist asst- consuming 75-100% of most meals. Last BM [...] hydroxide Energy Needs: Total Energy Estimated Needs: 7502-4865 kcal (20-25 kcal/kg actual weight), 70 g protein (1 g/kg actual weight), 7721-6056 mL (25-30 mL/kg actual weight) Height: 158 cm (62.21 ) Temp: 36.3 ??C (97.3 ??F) Food/Nutrition-Current Status: Intake Type: P.O. Appetite: Good Intake Amount (%): 75-100% Intake Assessment: Adequate Nutrition Focused Physical Findings: Overall Appearance: Unable to assess as pt in room with therapist with door closed Skin: No skin breakdown noted per seed analyst Fluid Accumulation/Edema: Generalized (per therapist asst) Nutrition Diagnosis: Code Type: None Identified Status: [...] NOTE Please contact author [BRAD Viramontes] via [email or web address]. Patient: Amalia Ann Admission Date/Time: 04/19/2024 5:41 [...] suspect secondary to intrinsic atherosclerotic disease likely direct marketing analyst now occluded priorstroke workup with normal ESR [...] History: Diagnosis Date CVA (cerebral vascular accident) ([facility]) DM (diabetes mellitus) ([facility]) HTN (hypertension) Past Surgical History History reviewed. [...] Suspect secondary to intrinsic atherosclerotic disease likely direct marketing analyst now occluded CTA shows right V4 high-grade [...] AM EST Appointment [facility] at [address] [id number] documented as of this encounter Procedures Procedure [...] AM EST POCT GLUCOSE BLOOD Routine 05/13/2024 7 :14 AM EST COMPLETE BLOOD COUNT Routine 05/13/2024 [...] - 100 mg/dL 05/31/2024 11:[address] [facility] Blood Capillary blood specimen / Unknown 05/31/2024 11:01 AM EST 05/31/2024 11:04 AM EST Neida Bailey DO LAB POINT OF CARE TEST DOCKED DEVICE UNSOLICITED RESULTS Performing Organization Address [facility]/ZIP Co de Phone Number [facility] [address] [place] [address], * (ABNORMAL) POCT Glucose, blood (05/31/2024 7:16 AM EST) Glucose POCT 163(H) 70 - 100 mg/dL 05/31/2024 7:[address] [facility] Blood Capillary blood specimen / Unknown 05/31/2024 7:16 AM EST 05/31/2024 7:18 AM EST Neida Bailey DO LAB POINT OF CARE TEST DOCKED DEVICE UNSOLICITED RESULTS [facility] [address] [place] [address], [place] [phone] * (ABNORMAL) POCT Glucose, blood (05/30/2024 8:02 PM EST) Glucose POCT 238(H) 70 - 100 mg/dL 05/30/2024 8:[address] [facility] Blood Capillary blood specimen / Unknown 05/30/2024 8:02 PM EST 05/30/2024 8:03 PM EST [facility]ARE TEST DOCKED DEVICE UNSOLICITED RESULTS [facility] [address] [place] [address], [place] [phone] * (ABNORMAL) POCT Glucose, blood (05/30/2024 4:18 PM EST) Glucose POCT 121(H) 70 - 100 mg/dL 05/30/2024 4:[address] [facility] Blood Capillary blood specimen / Unknown 05/30/2024 4:18 PM EST 05/30/2024 4:20 PM EST [facility] POINT OF CARE TEST DOCKED DEVICE UNSOLICITED RESULTS [facility] [address] [place] [address], [place] [phone] * Culture urine (05/30/2024 4:08 PM EST) Culture, Urine No growth 05/31/2024 10:[address] [facility] Urine Urine specimen obtained by clean catch procedure / Unknown Non-blood Collection / Unknown 05/30/2024 4:08 PM EST 05/30/2024 4:42 PM EST Madeline SALINAS LAB MICROBIOLOGY - G ENERAL ORDERABLES [facility] [address] [place] [address], [place] [phone] * Guy urine culture tube (05/30/2024 4:08 PM EST) Pathologist [facility] Extra Tube Hold for add-ons. 05/30/2024 6:02 PM [facility] Comment:Auto resulted. Urine Urine specimen obtained by clean catch procedure / Unknown Non-blood Collection / Unknown 05/30/2024 4:08 PM EST 05/30/2024 4:21 PM EST Madeline SALINAS LAB URINE ORDERABLES Performing Organization Address [facility]/ZIP Co de Phone Number [facility] [address] [place] [address], [place] [phone] * (ABNORMAL) Urinalysis with reflex microscopic and culture (05/30/2024 4:08 PM EST) [facility] [address] Urine 1.016 1.003 - 1.030 LAB URINALYSIS - AUTOMATED METHOD 05/30/2024 4:42 PM [facility] pH, Urine 8.0 5.0 - 8.0 pH LAB URINALYSIS - AUTOMATED METHOD 05/30/2024 4:42 PM [facility] Leukocytes, Urine Small(A) Negative LAB URINALYSIS - AUTOMATED METHOD 05/30/2024 4:42 PM [facility] Nitrite, Urine Negative Negative LAB URINALYSIS - AUTOMATED METHOD 05/30/2024 4:42 PM [facility] Protein, Urine 30(A) <=Trace mg/dL LAB URINALYSIS - AUTOMATED METHOD 05/30/2024 4:42 PM [facility] Glucose, Urine Negative Negative mg/dL LAB URINALYSIS - AUTOMATED METHOD 05/30/2024 4:42 PM [facility] Ketones, Urine Negative Negative mg/dL LAB URINALYSIS - AUTOMATED METHOD 05/30/2024 4:42 PM [facility] Urobilinogen , Urine 0.2 0.2 - 1.0 mg/dL LAB URINALYSIS - AUTOMATED METHOD 05/30/2024 4:42 PM [facility] Bilirubin, Urine Negative Negative LAB URINALYSIS - AUTOMATED METHOD 05/30/2024 4:42 PM [facility] Blood, Urine Large(A) Negative LAB URINALYSIS - AUTOMATED METHOD 05/30/2024 4:42 PM [facility] RBC, Urine 1,555.8(H) 0 - 4 /HPF LAB URINALYSIS - AUTOMATED METHOD 05/30/2024 4:42 PM [facility] WBC, Urine 2.1 0 - 4 /HPF LAB URINALYSIS - AUTOMATED METHOD 05/30/2024 4:42 PM [facility] Squamous Epithelial, Urine 32 0 - 60 /LPF LAB URINALYSIS - AUTOMATED METHOD 05/30/2024 4:42 PM [facility] Bacteria, Urine Negative Negative /HPF LAB URINALYSIS - AUTOMATED METHOD 05/30/2024 4:42 PM [facility] Hyaline Casts, Urine 0.8 0 - 3 /LPF LAB URINALYSIS - AUTOMATED METHOD 05/30/2024 4:42 PM [facility] Urine Urine specimen obtained by clean catch procedure / Unknown Non-blood Collection / Unknown 05/30/2024 4:08 PM EST 05/30/2024 4:21 PM EST Madeline SALINAS LAB URINE ORDERABLES [facility] [address] [place] [address], * Magnesium (05/30/2024 1:08 PM EST) Pathologist [facility] [place] Magnesium 2.0 1.9 - 2.6 mg/dL LAB CHEMISTRY METHOD 05/30/2024 3:[address] [facility] Blood Venous blood specimen / Unknown Venipuncture / Unknown 05/30/2024 1:08 PM EST 05/30/2024 1:14 PM EST Madeline SALINAS LAB BLOOD ORDERABLES [facility] [address] [place] [address], * (ABNORMAL) Complete blood count (05/30/2024 1:08 PM EST) [facility] WBC 6.1 4.8 - 10.8 K/mcL LAB HEMETOLOGY METHOD 05/30/2024 1:56 PM [facility] RBC 4.00 3.80 - 4.80 M/mcL LAB HEMETOLOGY METHOD 05/30/2024 1:56 PM [facility] Hemoglobin 11.7 11.5 - 16.0 g/dL LAB HEMETOLOGY METHOD 05/30/2024 1:56 PM [facility] Hematocrit 35.4 35.0 - 47.0 % LAB HEMETOLOGY METHOD 05/30/2024 1:56 PM [facility] MCV 87.6 79.0 - 98.0 FL LAB HEMETOLOGY METHOD 05/30/2024 1:56 PM [facility] MCH 29.0 27.0 - 32.0 pcg LAB HEMETOLOGY METHOD 05/30/2024 1:56 PM [facility] MCHC 33.1 32.0 - 37.0 g/dL LAB HEMETOLOGY METHOD 05/30/2024 1:56 PM [facility] RDW 13.0 11.0 - 15.0 % LAB HEMETOLOGY METHOD 05/30/2024 1:[address] [facility] Platelets 300 130 - 400 K/mcL LAB HEMETOLOGY METHOD 05/30/2024 1:[address] [facility] MPV 11.6(H) 7.0 - 11.0 FL LAB HEMETOLOGY METHOD 05/30/2024 1:[address] [facility] NRBC 0.0 <1.0 % LAB HEMETOLOGY METHOD 05/30/2024 1:[address] [facility] NRBC Absolute 0.00 <0.10 K/mcL LAB HEMETOLOGY METHOD 05/30/2024 1:56 PM [facility] Blood Venous blood specimen / Unknown Venipuncture / Unknown 05/30/2024 1:08 PM EST 05/30/2024 1:14 PM EST Madeline SALINAS LAB BLOOD ORDERABLES [facility] [address] [place] [address], * (ABNORMAL) Comprehensive metabolic panel (05/30/2024 1:08 PM EST) Sodium 138 133 - 145 mmol/L LAB CHEMISTRY METHOD 05/30/2024 3:34 PM [facility] Potassium 4.2 3.5 - 5.5 mmol/L LAB CHEMISTRY METHOD 05/30/2024 3:34 PM [facility] Chloride 104 96 - 110 mmol/L LAB CHEMISTRY METHOD 05/30/2024 3:34 PM [facility] CO2 29 21 - 32 mmol/L LAB CHEMISTRY METHOD 05/30/2024 3:34 PM [facility] Anion Gap 5 3 - 11 LAB CHEMISTRY METHOD 05/30/2024 3:34 PM [facility] Glucose 144(H) 70 - 100 mg/dL LAB CHEMISTRY METHOD 05/30/2024 3:34 PM [facility] BUN 14 5 - 25 mg/dL LAB CHEMISTRY METHOD 05/30/2024 3:34 PM [facility] Creatinine 0.79 0.50 - 1.10 mg/dL LAB CHEMISTRY METHOD 05/30/2024 3:34 PM [facility] eGFR 93 >=60 mL/min/1. 73m2 LAB CHEMISTRY METHOD 05/30/2024 3:34 PM [facility] Comment:Calculation based on the??Chronic Kidney Disease Epidemiology Collaboration (CKD-EPI) equation refit??without adjustment for race. BUN/Creatinine Ratio 17.7 LAB CHEMISTRY METHOD 05/30/2024 3:34 PM [facility] Calcium 9.1 8.5 - 10.5 mg/dL LAB CHEMISTRY METHOD 05/30/2024 3:34 PM [facility] AST (SGOT) 24 10 - 42 unit/L LAB CHEMISTRY METHOD 05/30/2024 3:34 PM [facility] ALT (SGPT) 30 10 - 60 unit/L LAB CHEMISTRY METHOD 05/30/2024 3:34 PM [facility] Alkaline Phosphatase 71 42 - 121 unit/L LAB CHEMISTRY METHOD 05/30/2024 3:34 PM [facility] Total Protein 6.3 6.0 - 8.0 g/dL LAB CHEMISTRY METHOD 05/30/2024 3:34 PM [facility] Albumin 3.2 3.2 - 5.0 g/dL LAB CHEMISTRY METHOD 05/30/2024 3:34 PM [facility] Total Bilirubin 0.3 0.0 - 1.4 mg/dL LAB CHEMISTRY METHOD 05/30/2024 3:34 PM [facility] Blood Venous blood specimen / Unknown Venipuncture / Unknown 05/30/2024 1:08 PM EST 05/30/2024 1:14 PM EST Madeline SALINAS LAB BLOOD ORDERABLES [facility] [address] [place] [address], * POCT Glucose, blood (05/30/2024 11:03 AM EST) [facility] Glucose POCT 100 70 - 100 mg/dL 05/30/2024 11:[address] [facility] Blood Capillary blood specimen / Unknown 05/30/2024 11:03 AM EST 05/30/2024 11:05 AM EST Neida Bailey DO LAB POINT OF CARE TEST DOCKED DEVICE UNSOLICITED RESULTS Performing Organization Address [facility]/ZIP Co de Phone Number [facility] [address] [place] [address], [place] [phone] * Respiratory virus panel molecular study (05/30/2024 10:56 AM EST) [facility] Adenovirus Detection by PCR Not Detected Not Detected LAB MICROBIOLOGY METHOD 05/30/2024 12:07 PM [facility] Influenza A PCR Not Detected Not Detected LAB MICROBIOLOGY METHOD 05/30/2024 12:07 PM [facility] Influenza B PCR Not Detected Not Detected LAB MICROBIOLOGY METHOD 05/30/2024 12:07 PM [facility] Coronavirus 229E Not Detected Not Detected LAB MICROBIOLOGY METHOD 05/30/2024 12:07 PM [facility] Coronavirus HKU1 Not Detected Not Detected LAB MICROBIOLOGY METHOD 05/30/2024 12:07 PM [facility] Coronavirus OC43 Not Detected Not Detected LAB MICROBIOLOGY METHOD 05/30/2024 12:07 PM [facility] Coronavirus NL63 Not Detected Not Detected LAB MICROBIOLOGY METHOD 05/30/2024 12:07 PM [facility] Parainfluenza Virus 1 Not Detected Not Detected LAB MICROBIOLOGY METHOD 05/30/2024 12:07 PM [facility] Parainfluenza Virus 2 Not Detected Not Detected LAB MICROBIOLOGY METHOD 05/30/2024 12:07 PM [facility] Parainfluenza Virus 3 Not Detected Not Detected LAB MICROBIOLOGY METHOD 05/30/2024 12:07 PM [facility] Parainfluenza Virus 4 Not Detected Not Detected LAB MICROBIOLOGY METHOD 05/30/2024 12:07 PM [facility] RSV PCR Not Detected Not Detected LAB MICROBIOLOGY METHOD 05/30/2024 12:07 PM [facility] Human Metapneumovirus A and B Not Detected Not Detected LAB MICROBIOLOGY METHOD 05/30/2024 12:07 PM [facility] Rhinovirus/Entero virus Not Detected Not Detected LAB MICROBIOLOGY METHOD 05/30/2024 12:07 PM [facility] Bordetella pertussis Not Detected Not Detected LAB MICROBIOLOGY METHOD 05/30/2024 12:07 PM [facility] Bordetella parapertussis Not Detected Not Detected LAB MICROBIOLOGY METHOD 05/30/2024 12:07 PM [facility] Mycoplasma pneumo by PCR Not Detected Not Detected LAB MICROBIOLOGY METHOD 05/30/2024 12:07 PM [facility] Chlamydia pneumoniae Not Detected Not Detected LAB MICROBIOLOGY METHOD 05/30/2024 12:07 PM [facility] SARS COV-2 Not Detected Not Detected LAB MICROBIOLOGY METHOD 05/30/2024 12:07 PM [facility] Swab Both anterior nares / Unknown Non-blood Collection / Unknown 05/30/2024 10:56 AM EST 05/30/2024 11:03 AM EST [facility] - 05/30/2024 12:07 PM EST Testing was performed using the [employer] Respiratory Pathogen PCR Assay. All results must [...] ENERAL ORDERABLES Performing Organization Address [facility]/ZIP Co de Phone Number [facility] [address] [place] [address], [place] [phone] * (ABNORMAL) POCT Glucose, blood (05/30/2024 9:55 AM EST) Glucose POCT 208(H) 70 - 100 mg/dL 05/30/2024 9:[address] [facility] Blood Capillary blood specimen / Unknown 05/30/2024 9:55 AM EST 05/30/2024 9:57 AM EST Neida Riveroese LAB POINT OF CARE TEST DOCKED DEVICE UNSOLICITED RESULTS Performing Organization Address [facility] de Phone Number [facility] [address] [place] [address], [place] [phone] * (ABNORMAL) POCT Glucose, blood (05/30/2024 7:22 AM EST) Glucose POCT 155(H) 70 - 100 mg/dL 05/30/2024 7:[address] [facility] Blood Capillary blood specimen / Unknown 05/30/2024 7:22 AM EST 05/30/2024 7:23 AM EST Neida Castellanos Lynn DO LAB POINT OF CARE TEST DOCKED DEVICE UNSOLICITED RESULTS Performing Organization Address [facility] Co de Phone Number [facility] [address] [place] [address], [place] [phone] * (ABNORMAL) POCT Glucose, blood (05/29/2024 8:34 PM EST) Glucose POCT 116(H) 70 - 100 mg/dL 05/29/2024 8:[address] [facility] Blood Capillary blood specimen / Unknown 05/29/2024 8:34 PM EST 05/29/2024 8:38 PM EST [employer] LAB POINT OF CARE TEST DOCKED DEVICE UNSOLICITED RESULTS [facility] [address] [place] [address], * (ABNORMAL) POCT Glucose, blood (05/29/2024 4:55 PM EST) Glucose POCT 161(H) 70 - 100 mg/dL 05/29/2024 4:[address] [facility] Blood Capillary blood specimen / Unknown 05/29/2024 4:55 PM EST 05/29/2024 4:58 PM EST Neida Castellanos [employer] LAB POINT OF CARE TEST DOCKED DEVICE UNSOLICITED RESULTS [facility] [address] [place] [address], * (ABNORMAL) POCT Glucose, blood (05/29/2024 3:31 PM EST) Glucose POCT 183(H) 70 - 100 mg/dL 05/29/2024 3:[address] [facility] Blood Capillary blood specimen / Unknown 05/29/2024 3:31 PM EST 05/29/2024 3:32 PM EST [employer] LAB POINT OF CARE TEST DOCKED DEVICE UNSOLICITED RESULTS Performing Organization Address [facility] Co de Phone Number [facility] [address] [place] [address], * (ABNORMAL) POCT Glucose, blood (05/29/2024 2:39 PM EST) Glucose POCT 152(H) 70 - 100 mg/dL 05/29/2024 2:[address] [facility] Blood Capillary blood specimen / Unknown 05/29/2024 2:39 PM EST 05/29/2024 2:40 PM EST [employer] LAB POINT OF CARE TEST DOCKED DEVICE UNSOLICITED RESULTS Performing Organization Address [facility] Co de Phone Number [facility] [address] [place] [address], * (ABNORMAL) POCT Glucose, blood (05/29/2024 7:20 AM EST) Glucose POCT 189(H) 70 - 100 mg/dL 05/29/2024 7:[address] [facility] Blood Capillary blood specimen / Unknown 05/29/2024 7:20 AM EST 05/29/2024 7:22 AM EST Neida A Lynn LAB POINT OF CARE TEST DOCKED DEVICE UNSOLICITED RESULTS Performing Organization Address [facility] Co de Phone Number [facility] [address] [place] [address], [place] [phone] * (ABNORMAL) POCT Glucose, blood (05/28/2024 8:56 PM EST) Glucose POCT 134(H) 70 - 100 mg/dL 05/28/2024 8:[address] [facility] Blood Capillary blood specimen / Unknown 05/28/2024 8:56 PM EST 05/28/2024 8:58 PM EST Neida Bailey DO LAB POINT OF CARE TEST DOCKED DEVICE UNSOLICITED RESULTS Performing Organization Address [facility]/ZIP Co de Phone Number [facility] [address] [place] [address], [place] [phone] * POCT Glucose, blood (05/28/2024 3:39 PM EST) Glucose POCT 90 70 - 100 mg/dL 05/28/2024 3:[address] [facility] Blood Capillary blood specimen / Unknown 05/28/2024 3:39 PM EST 05/28/2024 3:42 PM EST Neida Bailey DO LAB POINT OF CARE TEST DOCKED DEVICE UNSOLICITED RESULTS Performing Organization Address [facility] de Phone Number [facility] [address] [place] [address], [place] [phone] * POCT Glucose, blood (05/28/2024 11:28 AM EST) Glucose POCT 96 70 - 100 mg/dL 05/28/2024 11:[address] [facility] Blood Capillary blood specimen / Unknown 05/28/2024 11:28 AM EST 05/28/2024 11:29 AM EST Neida Bailey DO LAB POINT OF CARE TEST DOCKED DEVICE UNSOLICITED RESULTS Performing Organization Address [facility] Co de Phone Number [facility] [address] [place] [address], [place] [phone] * (ABNORMAL) POCT Glucose, blood (05/28/2024 7:07 AM EST) Glucose POCT 147(H) 70 - 100 mg/dL 05/28/2024 7:[address] [facility] Blood Capillary blood specimen / Unknown 05/28/2024 7:07 AM EST 05/28/2024 7:10 AM EST Neida Bailey [employer] LAB POINT OF CARE TEST DOCKED DEVICE UNSOLICITED RESULTS Performing Organization Address City/[facility]/ZIP Co de Phone Number [facility] [address] [place] [address], [place] [phone] * (ABNORMAL) POCT Glucose, blood (05/27/2024 8:06 PM EST) Glucose POCT 174(H) 70 - 100 mg/dL 05/27/2024 8:[address] [facility] Blood Capillary blood specimen / Unknown 05/27/2024 8:06 PM EST 05/27/2024 8:07 PM EST Neida [employer] LAB POINT OF CARE TEST DOCKED DEVICE UNSOLICITED RESULTS Performing Organization Address City/[facility]/ZIP Co de Phone Number [facility] [address] [place] [address], [place] [phone] * POCT Glucose, blood (05/27/2024 3:37 PM EST) Glucose POCT 95 70 - 100 mg/dL 05/27/2024 3:[address] [facility] Blood Capillary blood specimen / Unknown 05/27/2024 3:37 PM EST 05/27/2024 3:38 PM EST Neida [employer] LAB POINT OF CARE TEST DOCKED DEVICE UNSOLICITED RESULTS [facility] [address] [place] [address], [place] [phone] * (ABNORMAL) POCT Glucose, blood (05/27/2024 11:17 AM EST) Glucose POCT 114(H) 70 - 100 mg/dL 05/27/2024 11:[address] [facility] Blood Capillary blood specimen / Unknown 05/27/2024 11:17 AM EST 05/27/2024 11:18 AM EST Neida Riveroese DO LAB POINT OF CARE TEST DOCKED DEVICE UNSOLICITED RESULTS Performing Organization Address City/[facility]/ZIP Co de Phone Number [facility] [address] [place] [address], [place] [phone] * (ABNORMAL) POCT Glucose, blood (05/27/2024 7:15 AM EST) Glucose POCT 197(H) 70 - 100 mg/dL 05/27/2024 7:[address] [facility] Blood Capillary blood specimen / Unknown 05/27/2024 7:15 AM EST 05/27/2024 7:17 AM EST Neida Bailey LAB POINT OF CARE TEST DOCKED DEVICE UNSOLICITED RESULTS Performing Organization Address [facility] Co de Phone Number [facility] [address] [place] [address], [place] [phone] * Lavender tube (05/27/2024 5:43 AM EST) Pathologist [facility] [place] Extra Tube Hold for add-ons. 05/27/2024 8:[address] [facility] Comment:Auto resulted. Blood Venous blood specimen / Unknown Venipuncture / Unknown 05/27/2024 5:43 AM EST 05/27/2024 6:13 AM EST Neida Bailey DO LAB BLOOD ORDERAB LES Performing Organization Address City/[facility]/ZIP Co de Phone Number [facility] [address] [place] [address], * (ABNORMAL) Vitamin D 25 hydroxy (05/27/2024 5:43 AM EST) [facility] Vit D, 25-Hydroxy 25.8(L) 30.0 - 80.0 ng/mL LAB CHEMISTRY METHOD 05/27/2024 9:[address] [facility] Blood Venous blood specimen / Unknown Venipuncture / Unknown 05/27/2024 5:43 AM EST 05/27/2024 6:11 AM EST Leah Philippe NP LAB BLOOD OR DERABLES [facility] [address] [place] [address], * (ABNORMAL) Magnesium (05/27/2024 5:43 AM EST) [facility] Magnesium 1.8(L) 1.9 - 2.6 mg/dL LAB CHEMISTRY METHOD 05/27/2024 6:[address] [facility] Blood Venous blood specimen / Unknown Venipuncture / Unknown 05/27/2024 5:43 AM EST 05/27/2024 6:11 AM EST Leah Philippe NP LAB BLOOD OR DERABLES [facility] [address] [place] [address], [place] [phone] * (ABNORMAL) Comprehensive metabolic panel (05/27/2024 5:43 AM EST) [facility] Sodium 137 133 - 145 mmol/L LAB CHEMISTRY METHOD 05/27/2024 6:[address] [facility] Potassium 4.3 3.5 - 5.5 mmol/L LAB CHEMISTRY METHOD 05/27/2024 6:[address] [facility] Chloride 107 96 - 110 mmol/L LAB CHEMISTRY METHOD 05/27/2024 6:48 AM [facility] CO2 24 21 - 32 mmol/L LAB CHEMISTRY METHOD 05/27/2024 6:48 AM [facility] Anion Gap 6 3 - 11 LAB CHEMISTRY METHOD 05/27/2024 6:48 AM [facility] Glucose 180(H) 70 - 100 mg/dL LAB CHEMISTRY METHOD 05/27/2024 6:48 AM [facility] BUN 15 5 - 25 mg/dL LAB CHEMISTRY METHOD 05/27/2024 6:48 AM [facility] Creatinine 0.69 0.50 - 1.10 mg/dL LAB CHEMISTRY METHOD 05/27/2024 6:48 AM [facility] eGFR 108 >=60 mL/min/1. 73m2 LAB CHEMISTRY METHOD 05/27/2024 6:48 AM [facility] Comment:Calculation based on the??Chronic Kidney Disease Epidemiology Collaboration (CKD-EPI) equation refit??without adjustment for race. BUN/Creatinine Ratio 21.7 LAB CHEMISTRY METHOD 05/27/2024 6:48 AM [facility] Calcium 8.5 8.5 - 10.5 mg/dL LAB CHEMISTRY METHOD 05/27/2024 6:48 AM [facility] AST (SGOT) 11 10 - 42 unit/L LAB CHEMISTRY METHOD 05/27/2024 6:48 AM [facility] ALT (SGPT) 20 10 - 60 unit/L LAB CHEMISTRY METHOD 05/27/2024 6:48 AM [facility] Alkaline Phosphatase 76 42 - 121 unit/L LAB CHEMISTRY METHOD 05/27/2024 6:48 AM [facility] Total Protein 6.3 6.0 - 8.0 g/dL LAB CHEMISTRY METHOD 05/27/2024 6:48 AM [facility] Albumin 3.0(L) 3.2 - 5.0 g/dL LAB CHEMISTRY METHOD 05/27/2024 6:[address] [facility] Total Bilirubin 0.3 0.0 - 1.4 mg/dL LAB CHEMISTRY METHOD 05/27/2024 6:[address] [facility] Blood Venous blood specimen / Unknown Venipuncture / Unknown 05/27/2024 5:43 AM EST 05/27/2024 6:11 AM EST Leah Philippe NP LAB BLOOD OR DERABLES [facility] [address] [place] [address], * (ABNORMAL) POCT Glucose, blood (2024 8:15 PM EST) Glucose POCT 197(H) 70 - 100 mg/dL 2024 8:[address] [facility] Blood Capillary blood specimen / Unknown 2024 8:15 PM EST 2024 8:16 PM EST Neida Bailey DO LAB POINT OF CARE TEST DOCKED DEVICE UNSOLICITED RESULTS [facility] [address] [place] [address], [place] [phone] * (ABNORMAL) POCT Glucose, blood (2024 3:58 PM EST) Glucose POCT 128(H) 70 - 100 mg/dL 2024 3:[address] [facility] Blood Capillary blood specimen / Unknown 2024 3:58 PM EST 2024 4:00 PM EST Neida Bailey DO LAB POINT OF CARE TEST DOCKED DEVICE UNSOLICITED RESULTS Performing Organization Address [facility] Co de Phone Number [facility] [address] [place] [address], * (ABNORMAL) POCT Glucose, blood (2024 11:12 AM EST) Glucose POCT 186(H) 70 - 100 mg/dL 2024 11:[address] [facility] Blood Capillary blood specimen / Unknown 2024 11:12 AM EST 2024 11:13 AM EST Neida A [employer] LAB POINT OF CARE TEST DOCKED DEVICE UNSOLICITED RESULTS Performing Organization Address [facility] Co de Phone Number [facility] [address] [place] [address], * (ABNORMAL) POCT Glucose, blood (2024 7:15 AM EST) Glucose POCT 181(H) 70 - 100 mg/dL 2024 7:[address] [facility] Blood Capillary blood specimen / Unknown 2024 7:15 AM EST 2024 7:17 AM EST Neida Riveroese LAB POINT OF CARE TEST DOCKED DEVICE UNSOLICITED RESULTS Performing Organization Address City/[facility]/ZIP Co de Phone Number [facility] [address] [place] [address], [place] [phone] * (ABNORMAL) POCT Glucose, blood (05/25/2024 7:59 PM EST) Glucose POCT 172(H) 70 - 100 mg/dL 05/25/2024 7:[address] [facility] Blood Capillary blood specimen / Unknown 05/25/2024 7:59 PM EST 05/25/2024 8:00 PM EST Neida Bailey DO LAB POINT OF CARE TEST DOCKED DEVICE UNSOLICITED RESULTS Performing Organization Address [facility]/ZIP Co de Phone Number [facility] [address] [place] [address], [place] [phone] * POCT Glucose, blood (05/25/2024 3:25 PM EST) Glucose POCT 93 70 - 100 mg/dL 05/25/2024 3:[address] [facility] Blood Capillary blood specimen / Unknown 05/25/2024 3:25 PM EST 05/25/2024 3:28 PM EST Neida Bailey LAB POINT OF CARE TEST DOCKED DEVICE UNSOLICITED RESULTS Performing Organization Address [facility] Co de Phone Number [facility] [address] [place] [address], [place] [phone] * (ABNORMAL) POCT Glucose, blood (05/25/2024 10:57 AM EST) Glucose POCT 154(H) 70 - 100 mg/dL 05/25/2024 10:[address] [facility] Blood Capillary blood specimen / Unknown 05/25/2024 10:57 AM EST 05/25/2024 10:58 AM EST Neida Bailey [employer] LAB POINT OF CARE TEST DOCKED DEVICE UNSOLICITED RESULTS Performing Organization Address [facility]/ZIP Co de Phone Number [facility] [address] [place] [address], [place] [phone] * (ABNORMAL) POCT Glucose, blood (05/25/2024 7:31 AM EST) Glucose POCT 179(H) 70 - 100 mg/dL 05/25/2024 7:[address] [facility] Blood Capillary blood specimen / Unknown 05/25/2024 7:31 AM EST 05/25/2024 7:32 AM EST Neida Bailey DO LAB POINT OF CARE TEST DOCKED DEVICE UNSOLICITED RESULTS [facility] [address] [place] [address], [place] [phone] * (ABNORMAL) POCT Glucose, blood (05/24/2024 8:10 PM EST) Glucose POCT 131(H) 70 - 100 mg/dL 05/24/2024 8:[address] [facility] Blood Capillary blood specimen / Unknown 05/24/2024 8:10 PM EST 05/24/2024 8:12 PM EST Neida Bailey [employer] LAB POINT OF CARE TEST DOCKED DEVICE UNSOLICITED RESULTS Performing Organization Address City/[facility]/ZIP Co de Phone Number [facility] [address] [place] [address], [place] [phone] * (ABNORMAL) POCT Glucose, blood (05/24/2024 3:52 PM EST) Glucose POCT 115(H) 70 - 100 mg/dL 05/24/2024 3:[address] [facility] Blood Capillary blood specimen / Unknown 05/24/2024 3:52 PM EST 05/24/2024 3:53 PM EST Neida Bailey DO LAB POINT OF CARE TEST DOCKED DEVICE UNSOLICITED RESULTS [facility] [address] [place] [address], [place] [phone] * POCT Glucose, blood (05/24/2024 11:30 AM EST) Glucose POCT 95 70 - 100 mg/dL 05/24/2024 11:[address] [facility] Blood Capillary blood specimen / Unknown 05/24/2024 11:30 AM EST 05/24/2024 11:32 AM EST Neida Emanuel Lynn DO LAB POINT OF CARE TEST DOCKED DEVICE UNSOLICITED RESULTS [facility] [address] [place] [address], [place] [phone] * (ABNORMAL) POCT Glucose, blood (05/24/2024 7:31 AM EST) Glucose POCT 136(H) 70 - 100 mg/dL 05/24/2024 7:[address] [facility] Blood Capillary blood specimen / Unknown 05/24/2024 7:31 AM EST 05/24/2024 7:33 AM EST Neida Castellanos Lynn [employer] LAB POINT OF CARE TEST DOCKED DEVICE UNSOLICITED RESULTS Performing Organization Address [facility]/ZIP Co de Phone Number [facility] [address] [place] [address], [place] [phone] * (ABNORMAL) POCT Glucose, blood (05/23/2024 8:15 PM EST) Glucose POCT 154(H) 70 - 100 mg/dL 05/23/2024 8:[address] [facility] Blood Capillary blood specimen / Unknown 05/23/2024 8:15 PM EST 05/23/2024 8:17 PM EST Neida A Lynn DO LAB POINT OF CARE TEST DOCKED DEVICE UNSOLICITED RESULTS [facility] [address] [place] [address], [place] [phone] * (ABNORMAL) POCT Glucose, blood (05/23/2024 3:49 PM EST) Glucose POCT 117(H) 70 - 100 mg/dL 05/23/2024 3:[address] [facility] Blood Capillary blood specimen / Unknown 05/23/2024 3:49 PM EST 05/23/2024 3:56 PM EST Neida Bailey DO LAB POINT OF CARE TEST DOCKED DEVICE UNSOLICITED RESULTS [facility] [address] [place] [address], [place] [phone] * POCT Glucose, blood (05/23/2024 11:25 AM EST) Glucose POCT 72 70 - 100 mg/dL 05/23/2024 11:[address] [facility] Blood Capillary blood specimen / Unknown 05/23/2024 11:25 AM EST 05/23/2024 11:27 AM EST Neida Bailey DO LAB POINT OF CARE TEST DOCKED DEVICE UNSOLICITED RESULTS [facility] [address] [place] [address], [place] [phone] * (ABNORMAL) POCT Glucose, blood (05/23/2024 7:27 AM EST) Glucose POCT 172(H) 70 - 100 mg/dL 05/23/2024 7:[address] [facility] Blood Capillary blood specimen / Unknown 05/23/2024 7:27 AM EST 05/23/2024 7:29 AM EST Neida Bailey DO LAB POINT OF CARE TEST DOCKED DEVICE UNSOLICITED RESULTS Performing Organization Address [facility]/ZIP Co de Phone Number [facility] [address] [place] [address], * (ABNORMAL) POCT Glucose, blood (05/22/2024 8:01 PM EST) Glucose POCT 197(H) 70 - 100 mg/dL 05/22/2024 8:[address] [facility] Blood Capillary blood specimen / Unknown 05/22/2024 8:01 PM EST 05/22/2024 8:02 PM EST Neida Bailey LAB POINT OF CARE TEST DOCKED DEVICE UNSOLICITED RESULTS Performing Organization Address [facility] Co de Phone Number [facility] [address] [place] [address], * POCT Glucose, blood (05/22/2024 4:05 PM EST) Glucose POCT 99 70 - 100 mg/dL 05/22/2024 4:[address] [facility] Blood Capillary blood specimen / Unknown 05/22/2024 4:05 PM EST 05/22/2024 4:07 PM EST Neida Bailey [employer] LAB POINT OF CARE TEST DOCKED DEVICE UNSOLICITED RESULTS Performing Organization Address City/[facility]/ZIP Co de Phone Number [facility] [address] [place] [address], [place] [phone] * POCT Glucose, blood (05/22/2024 11:06 AM EST) Glucose POCT 90 70 - 100 mg/dL 05/22/2024 11:[address] [facility] Blood Capillary blood specimen / Unknown 05/22/2024 11:06 AM EST 05/22/2024 11:07 AM EST Neida Bailey DO LAB POINT OF CARE TEST DOCKED DEVICE UNSOLICITED RESULTS Performing Organization Address [facility] de Phone Number [facility] [address] [place] [address], [place] [phone] * (ABNORMAL) POCT Glucose, blood (05/22/2024 7:25 AM EST) [facility] Glucose POCT 138(H) 70 - 100 mg/dL 05/22/2024 7:[address] [facility] Blood Capillary blood specimen / Unknown 05/22/2024 7:25 AM EST 05/22/2024 7:26 AM EST Neida Bailey DO LAB POINT OF CARE TEST DOCKED DEVICE UNSOLICITED RESULTS Performing Organization Address [facility] de Phone Number [facility] [address] [place] [address], [place] [phone] * (ABNORMAL) Magnesium (05/22/2024 5:52 AM EST) [facility] Magnesium 1.7(L) 1.9 - 2.6 mg/dL LAB CHEMISTRY METHOD 05/22/2024 7:[address] [facility] Blood Venous blood specimen / Unknown Venipuncture / Unknown 05/22/2024 5:52 AM EST 05/22/2024 6:46 AM EST Madeline SALINAS LAB BLOOD ORDERABLES Performing Organization Address [facility] Co de Phone Number [facility] [address] [place] [address], [place] [phone] * (ABNORMAL) Complete blood count (05/22/2024 5:52 AM EST) [facility] WBC 7.5 4.8 - 10.8 K/mcL LAB HEMETOLOGY METHOD 05/22/2024 7:06 AM [facility] RBC 4.10 3.80 - 4.80 M/mcL LAB HEMETOLOGY METHOD 05/22/2024 7:06 AM [facility] Hemoglobin 11.9 11.5 - 16.0 g/dL LAB HEMETOLOGY METHOD 05/22/2024 7:06 AM [facility] Hematocrit 36.3 35.0 - 47.0 % LAB HEMETOLOGY METHOD 05/22/2024 7:06 AM [facility] MCV 89.6 79.0 - 98.0 FL LAB HEMETOLOGY METHOD 05/22/2024 7:06 AM [facility] MCH 29.4 27.0 - 32.0 pcg LAB HEMETOLOGY METHOD 05/22/2024 7:06 AM [facility] MCHC 32.8 32.0 - 37.0 g/dL LAB HEMETOLOGY METHOD 05/22/2024 7:06 AM [facility] RDW 13.1 11.0 - 15.0 % LAB HEMETOLOGY METHOD 05/22/2024 7:06 AM [facility] Platelets 297 130 - 400 K/mcL LAB HEMETOLOGY METHOD 05/22/2024 7:06 AM [facility] MPV 11.9(H) 7.0 - 11.0 FL LAB HEMETOLOGY METHOD 05/22/2024 7:06 AM [facility] NRBC 0.0 <1.0 % LAB HEMETOLOGY METHOD 05/22/2024 7:06 AM [facility] NRBC Absolute 0.00 <0.10 K/mcL LAB HEMETOLOGY METHOD 05/22/2024 7:06 AM [facility] Blood Venous blood specimen / Unknown Venipuncture / Unknown 05/22/2024 5:52 AM EST 05/22/2024 6:46 AM EST Madeline SALINAS LAB BLOOD ORDERABLES [facility] [address] [place] [address], [place] [phone] * (ABNORMAL) Comprehensive metabolic panel (05/22/2024 5:52 AM EST) Sodium 136 133 - 145 mmol/L LAB CHEMISTRY METHOD 05/22/2024 7:[address] [facility] Potassium 4.1 3.5 - 5.5 mmol/L LAB CHEMISTRY METHOD 05/22/2024 7:45 AM [facility] Chloride 104 96 - 110 mmol/L LAB CHEMISTRY METHOD 05/22/2024 7:45 AM [facility] CO2 25 21 - 32 mmol/L LAB CHEMISTRY METHOD 05/22/2024 7:45 AM [facility] Anion Gap 7 3 - 11 LAB CHEMISTRY METHOD 05/22/2024 7:45 AM [facility] Glucose 121(H) 70 - 100 mg/dL LAB CHEMISTRY METHOD 05/22/2024 7:45 AM [facility] BUN 19 5 - 25 mg/dL LAB CHEMISTRY METHOD 05/22/2024 7:45 AM [facility] Creatinine 0.77 0.50 - 1.10 mg/dL LAB CHEMISTRY METHOD 05/22/2024 7:45 AM [facility] eGFR 96 >=60 mL/min/1. 73m2 LAB CHEMISTRY METHOD 05/22/2024 7:45 AM [facility] Comment:Calculation based on the??Chronic Kidney Disease Epidemiology Collaboration (CKD-EPI) equation refit??without adjustment for race. BUN/Creatinine Ratio 24.7 LAB CHEMISTRY METHOD 05/22/2024 7:45 AM [facility] Calcium 9.2 8.5 - 10.5 mg/dL LAB CHEMISTRY METHOD 05/22/2024 7:45 AM [facility] AST (SGOT) 8(L) 10 - 42 unit/L LAB CHEMISTRY METHOD 05/22/2024 7:45 AM [facility] ALT (SGPT) 24 10 - 60 unit/L LAB CHEMISTRY METHOD 05/22/2024 7:45 AM [facility] Alkaline Phosphatase 76 42 - 121 unit/L LAB CHEMISTRY METHOD 05/22/2024 7:45 AM [facility] Total Protein 6.5 6.0 - 8.0 g/dL LAB CHEMISTRY METHOD 05/22/2024 7:45 AM [facility] Albumin 3.2 3.2 - 5.0 g/dL LAB CHEMISTRY METHOD 05/22/2024 7:45 AM [facility] Total Bilirubin 0.2 0.0 - 1.4 mg/dL LAB CHEMISTRY METHOD 05/22/2024 7:45 AM [facility] Blood Venous blood specimen / Unknown Venipuncture / Unknown 05/22/2024 5:52 AM EST 05/22/2024 6:46 AM EST Madeline SALINAS LAB BLOOD ORDERABLES [facility] [address] [place] [address], * (ABNORMAL) POCT Glucose, blood (05/21/2024 8:21 PM EST) Glucose POCT 137(H) 70 - 100 mg/dL 05/21/2024 8:21 PM [facility] Blood Capillary blood specimen / Unknown 05/21/2024 8:21 PM EST 05/21/2024 8:23 PM EST Nieda A Lynn DO LAB POINT OF CARE TEST DOCKED DEVICE UNSOLICITED RESULTS Performing Organization Address [facility] Co de Phone Number [facility] [address] [place] [address], * POCT Glucose, blood (05/21/2024 3:34 PM EST) Glucose POCT 85 70 - 100 mg/dL 05/21/2024 3:[address] [facility] Blood Capillary blood specimen / Unknown 05/21/2024 3:34 PM EST 05/21/2024 3:36 PM EST Neida Bailey LAB POINT OF CARE TEST DOCKED DEVICE UNSOLICITED RESULTS Performing Organization Address [facility] de Phone Number [facility] [address] [place] [address], * POCT Glucose, blood (05/21/2024 11:11 AM EST) Glucose POCT 72 70 - 100 mg/dL 05/21/2024 11:[address] [facility] Blood Capillary blood specimen / Unknown 05/21/2024 11:11 AM EST 05/21/2024 11:14 AM EST Neidamikal Bailey DO LAB POINT OF CARE TEST DOCKED DEVICE UNSOLICITED RESULTS Performing Organization Address [facility] Co de Phone Number [facility] [address] [place] [address], [place] [phone] * (ABNORMAL) POCT Glucose, blood (05/21/2024 7:19 AM EST) Glucose POCT 155(H) 70 - 100 mg/dL 05/21/2024 7:[address] [facility] Blood Capillary blood specimen / Unknown 05/21/2024 7:19 AM EST 05/21/2024 7:21 AM EST Neida Bailey DO LAB POINT OF CARE TEST DOCKED DEVICE UNSOLICITED RESULTS Performing Organization Address City/[facility]/ZIP Co de Phone Number [facility] [address] [place] [address], [place] [phone] * (ABNORMAL) POCT Glucose, blood (05/20/2024 8:08 PM EST) Glucose POCT 193(H) 70 - 100 mg/dL 05/20/2024 8:[address] [facility] Blood Capillary blood specimen / Unknown 05/20/2024 8:08 PM EST 05/20/2024 8:09 PM EST Neida Riveroese [employer] LAB POINT OF CARE TEST DOCKED DEVICE UNSOLICITED RESULTS Performing Organization Address [facility] Co de Phone Number [facility] [address] [place] [address], [place] [phone] * POCT Glucose, blood (05/20/2024 4:31 PM EST) Glucose POCT 81 70 - 100 mg/dL 05/20/2024 4:[address] [facility] Blood Capillary blood specimen / Unknown 05/20/2024 4:31 PM EST 05/20/2024 4:32 PM EST Neida Riveroese DO LAB POINT OF CARE TEST DOCKED DEVICE UNSOLICITED RESULTS Performing Organization Address [facility]/ZIP Co de Phone Number [facility] [address] [place] [address], [place] [phone] * (ABNORMAL) POCT Glucose, blood (05/20/2024 11:12 AM EST) Glucose POCT 103(H) 70 - 100 mg/dL 05/20/2024 11:[address] [facility] Blood Capillary blood specimen / Unknown 05/20/2024 11:12 AM EST 05/20/2024 11:13 AM EST Neida [employer] LAB POINT OF CARE TEST DOCKED DEVICE UNSOLICITED RESULTS Performing Organization Address [facility]/ZIP Co de Phone Number [facility] [address] [place] [address], [place] [phone] * (ABNORMAL) POCT Glucose, blood (05/20/2024 7:26 AM EST) Glucose POCT 115(H) 70 - 100 mg/dL 05/20/2024 7:[address] [facility] Blood Capillary blood specimen / Unknown 05/20/2024 7:26 AM EST 05/20/2024 7:28 AM EST Neida [employer] LAB POINT OF CARE TEST DOCKED DEVICE UNSOLICITED RESULTS Performing Organization Address [facility]/ZIP Co de Phone Number [facility] [address] [place] [address], [place] [phone] * (ABNORMAL) POCT Glucose, blood (05/19/2024 8:01 PM EST) Glucose POCT 169(H) 70 - 100 mg/dL 05/19/2024 8:[address] [facility] Blood Capillary blood specimen / Unknown 05/19/2024 8:01 PM EST 05/19/2024 8:04 PM EST Neida [employer] LAB POINT OF CARE TEST DOCKED DEVICE UNSOLICITED RESULTS Performing Organization Address City/[facility]/ZIP Co de Phone Number [facility] [address] [place] [address], [place] [phone] * (ABNORMAL) POCT Glucose, blood (05/19/2024 3:24 PM EST) Glucose POCT 134(H) 70 - 100 mg/dL 05/19/2024 3:[address] [facility] Blood Capillary blood specimen / Unknown 05/19/2024 3:24 PM EST 05/19/2024 3:26 PM EST Neida Emanuel Bailey DO LAB POINT OF CARE TEST DOCKED DEVICE UNSOLICITED RESULTS Performing Organization Address City/[facility]/ZIP Co de Phone Number [facility] [address] [place] [address], [place] [phone] * POCT Glucose, blood (05/19/2024 11:20 AM EST) Glucose POCT 91 70 - 100 mg/dL 05/19/2024 11:[address] [facility] Blood Capillary blood specimen / Unknown 05/19/2024 11:20 AM EST 05/19/2024 11:22 AM EST Neida Emanuel Bailey DO LAB POINT OF CARE TEST DOCKED DEVICE UNSOLICITED RESULTS Performing Organization Address [facility] Co de Phone Number [facility] [address] [place] [address], [place] [phone] * (ABNORMAL) POCT Glucose, blood (05/19/2024 7:34 AM EST) Glucose POCT 134(H) 70 - 100 mg/dL 05/19/2024 7:[address] [facility] Blood Capillary blood specimen / Unknown 05/19/2024 7:34 AM EST 05/19/2024 7:36 AM EST Neidamikal Bailey DO LAB POINT OF CARE TEST DOCKED DEVICE UNSOLICITED RESULTS Performing Organization Address City/[facility]/ZIP Co de Phone Number [facility] [address] [place] [address], [place] [phone] * (ABNORMAL) POCT Glucose, blood (05/18/2024 7:57 PM EST) Glucose POCT 190(H) 70 - 100 mg/dL 05/18/2024 7:[address] [facility] Blood Capillary blood specimen / Unknown 05/18/2024 7:57 PM EST 05/18/2024 7:59 PM EST Neida Bailey DO LAB POINT OF CARE TEST DOCKED DEVICE UNSOLICITED RESULTS [facility] [address] [place] [address], [place] [phone] * (ABNORMAL) POCT Glucose, blood (05/18/2024 3:24 PM EST) Glucose POCT 151(H) 70 - 100 mg/dL 05/18/2024 3:[address] [facility] Blood Capillary blood specimen / Unknown 05/18/2024 3:24 PM EST 05/18/2024 3:33 PM EST Neida Bailey DO [facility] POINT OF CARE TEST DOCKED DEVICE UNSOLICITED RESULTS [facility] [address] [place] [address], [place] [phone] * (ABNORMAL) POCT Glucose, blood (05/18/2024 11:08 AM EST) Glucose POCT 121(H) 70 - 100 mg/dL 05/18/2024 11:[address] [facility] Blood Capillary blood specimen / Unknown 05/18/2024 11:08 AM EST 05/18/2024 11:09 AM EST Neida Bailey DO LAB POINT OF CARE TEST DOCKED DEVICE UNSOLICITED RESULTS Performing Organization Address City/[facility]/ZIP Co de Phone Number [facility] [address] [place] [address], [place] [phone] * (ABNORMAL) Vitamin D 25 hydroxy (05/18/2024 11:05 AM EST) Pathologist [facility] [place] Vit D, 25-Hydroxy 25.0(L) 30.0 - 80.0 ng/mL LAB CHEMISTRY METHOD 05/18/2024 11:[address] [facility] Blood Venous blood specimen / Unknown Venipuncture / Unknown 05/18/2024 11:05 AM EST 05/18/2024 11:15 AM EST Leah Philippe NP LAB BLOOD OR DERABLES Performing Organization Address [facility]/ZIP Co de Phone Number [facility] [address] [place] [address], [place] [phone] * (ABNORMAL) Vitamin B12 and folate (05/18/2024 11:05 AM EST) [facility] Vitamin B-12 233(L) 250 - 900 pcg/mL LAB CHEMISTRY METHOD 05/18/2024 12:[address] [facility] Folate 8.2 2.8 - 17.0 ng/ml LAB CHEMISTRY METHOD 05/18/2024 12:[address] [facility] Blood Venous blood specimen / Unknown Venipuncture / Unknown 05/18/2024 11:05 AM EST 05/18/2024 11:15 AM EST Leah Philippe NP LAB BLOOD OR DERABLES Performing Organization Address City/[facility]/ZIP Co de Phone Number [facility] [address] [place] [address], [place] [phone] * (ABNORMAL) POCT Glucose, blood (05/18/2024 7:21 AM EST) Pathologist [facility] [place] Glucose POCT 175(H) 70 - 100 mg/dL 05/18/2024 7:[address] [facility] Blood Capillary blood specimen / Unknown 05/18/2024 7:21 AM EST 05/18/2024 7:22 AM EST Neida Bailey DO LAB POINT OF CARE TEST DOCKED DEVICE UNSOLICITED RESULTS Performing Organization Address City/[facility]/ZIP Co de Phone Number [facility] [address] [place] [address], [place] [phone] * Lavender tube (05/18/2024 6:12 AM EST) [facility] Extra Tube Hold for add-ons. 05/18/2024 8:[address] [facility] Comment:Auto resulted. Blood Venous blood specimen / Unknown Venipuncture / Unknown 05/18/2024 6:12 AM EST 05/18/2024 6:29 AM EST Neida Bailey DO LAB BLOOD ORDERAB LES Performing Organization Address [facility] Co de Phone Number [facility] [address] [place] [address], [place] [phone] * (ABNORMAL) Magnesium (05/18/2024 6:11 AM EST) [facility] Magnesium 1.8(L) 1.9 - 2.6 mg/dL LAB CHEMISTRY METHOD 05/18/2024 7:[address] [facility] Blood Venous blood specimen / Unknown Venipuncture / Unknown 05/18/2024 6:11 AM EST 05/18/2024 6:28 AM EST Madeline SALINAS LAB BLOOD ORDERABLES Performing Organization Address City/[facility]/ZIP Co de Phone Number [facility] [address] [place] [address], [place] [phone] * (ABNORMAL) Comprehensive metabolic panel (05/18/2024 6:11 AM EST) Sodium 137 133 - 145 mmol/L LAB CHEMISTRY METHOD 05/18/2024 7:48 AM [facility] Potassium 4.3 3.5 - 5.5 mmol/L LAB CHEMISTRY METHOD 05/18/2024 7:48 AM [facility] Chloride 105 96 - 110 mmol/L LAB CHEMISTRY METHOD 05/18/2024 7:48 AM [facility] CO2 29 21 - 32 mmol/L LAB CHEMISTRY METHOD 05/18/2024 7:48 AM [facility] Anion Gap 3 3 - 11 LAB CHEMISTRY METHOD 05/18/2024 7:48 AM [facility] Glucose 205(H) 70 - 100 mg/dL LAB CHEMISTRY METHOD 05/18/2024 7:48 AM [facility] BUN 16 5 - 25 mg/dL LAB CHEMISTRY METHOD 05/18/2024 7:48 AM [facility] Creatinine 0.92 0.50 - 1.10 mg/dL LAB CHEMISTRY METHOD 05/18/2024 7:48 AM [facility] eGFR 78 >=60 mL/min/1. 73m2 LAB CHEMISTRY METHOD 05/18/2024 7:48 AM [facility] Comment:Calculation based on the??Chronic Kidney Disease Epidemiology Collaboration (CKD-EPI) equation refit??without adjustment for race. BUN/Creatinine Ratio 17.4 LAB CHEMISTRY METHOD 05/18/2024 7:48 AM [facility] Calcium 8.3(L) 8.5 - 10.5 mg/dL LAB CHEMISTRY METHOD 05/18/2024 7:48 AM [facility] AST (SGOT) 20 10 - 42 unit/L LAB CHEMISTRY METHOD 05/18/2024 7:48 AM [facility] ALT (SGPT) 32 10 - 60 unit/L LAB CHEMISTRY METHOD 05/18/2024 7:48 AM [facility] Alkaline Phosphatase 88 42 - 121 unit/L LAB CHEMISTRY METHOD 05/18/2024 7:48 AM [facility] Total Protein 6.1 6.0 - 8.0 g/dL LAB CHEMISTRY METHOD 05/18/2024 7:48 AM [facility] Albumin 2.9(L) 3.2 - 5.0 g/dL LAB CHEMISTRY METHOD 05/18/2024 7:48 AM [facility] Total Bilirubin 0.2 0.0 - 1.4 mg/dL LAB CHEMISTRY METHOD 05/18/2024 7:48 AM [facility] Blood Venous blood specimen / Unknown Venipuncture / Unknown 05/18/2024 6:11 AM EST 05/18/2024 6:28 AM EST Madeline Morales PA LAB BLOOD ORDERABLES [facility] [address] [place] [address], [place] [phone] * (ABNORMAL) POCT Glucose, blood (05/17/2024 8:40 PM EST) Glucose POCT 215(H) 70 - 100 mg/dL 05/17/2024 8:40 PM [facility] Blood Capillary blood specimen / Unknown 05/17/2024 8:40 PM EST 05/17/2024 8:42 PM EST Neida Bailey DO LAB POINT OF CARE TEST DOCKED DEVICE UNSOLICITED RESULTS Performing Organization Address City/[facility]/ZIP Co de Phone Number [facility] [address] [place] [address], [place] [phone] * POCT Glucose, blood (05/17/2024 3:51 PM EST) Glucose POCT 73 70 - 100 mg/dL 05/17/2024 3:[address] [facility] Blood Capillary blood specimen / Unknown 05/17/2024 3:51 PM EST 05/17/2024 3:53 PM EST Neida A Lynn DO LAB POINT OF CARE TEST DOCKED DEVICE UNSOLICITED RESULTS [facility] [address] [place] [address], [place] [phone] * (ABNORMAL) POCT Glucose, blood (05/17/2024 11:05 AM EST) Glucose POCT 196(H) 70 - 100 mg/dL 05/17/2024 11:[address] [facility] Blood Capillary blood specimen / Unknown 05/17/2024 11:05 AM EST 05/17/2024 11:07 AM EST Neida Riveroese [employer] LAB POINT OF CARE TEST DOCKED DEVICE UNSOLICITED RESULTS Performing Organization Address [facility]/ZIP Co de Phone Number [facility] [address] [place] [address], [place] [phone] * (ABNORMAL) POCT Glucose, blood (05/17/2024 7:22 AM EST) Glucose POCT 149(H) 70 - 100 mg/dL 05/17/2024 7:[address] [facility] Blood Capillary blood specimen / Unknown 05/17/2024 7:22 AM EST 05/17/2024 7:25 AM EST Neida A Lynn DO LAB POINT OF CARE TEST DOCKED DEVICE UNSOLICITED RESULTS [facility] [address] [place] [address], [place] [phone] * (ABNORMAL) Magnesium (05/17/2024 6:09 AM EST) [facility] Magnesium 1.4(L) 1.9 - 2.6 mg/dL LAB CHEMISTRY METHOD 05/17/2024 7:55 AM [facility] Blood Venous blood specimen / Unknown Venipuncture / Unknown 05/17/2024 6:09 AM EST 05/17/2024 6:54 AM EST Madeline SALINAS LAB BLOOD ORDERABLES [facility] [address] [place] [address], [place] [phone] * (ABNORMAL) Complete blood count (05/17/2024 6:09 AM EST) [facility] WBC 7.5 4.8 - 10.8 K/mcL LAB HEMETOLOGY METHOD 05/17/2024 7:19 AM [facility] RBC 3.90 3.80 - 4.80 M/mcL LAB HEMETOLOGY METHOD 05/17/2024 7:19 AM [facility] Hemoglobin 11.9 11.5 - 16.0 g/dL LAB HEMETOLOGY METHOD 05/17/2024 7:19 AM [facility] Hematocrit 34.5(L) 35.0 - 47.0 % LAB HEMETOLOGY METHOD 05/17/2024 7:19 AM [facility] MCV 88.0 79.0 - 98.0 FL LAB HEMETOLOGY METHOD 05/17/2024 7:19 AM [facility] MCH 30.4 27.0 - 32.0 pcg LAB HEMETOLOGY METHOD 05/17/2024 7:19 AM [facility] LAB MCHC 34.5 32.0 - 37.0 g/dL LAB HEMETOLOGY METHOD 05/17/2024 7:[address] [facility] RDW 12.9 11.0 - 15.0 % LAB HEMETOLOGY METHOD 05/17/2024 7:19 AM [facility] Platelets 317 130 - 400 K/mcL LAB HEMETOLOGY METHOD 05/17/2024 7:19 AM [facility] MPV 11.8(H) 7.0 - 11.0 FL LAB HEMETOLOGY METHOD 05/17/2024 7:19 AM [facility] NRBC 0.0 <1.0 % LAB HEMETOLOGY METHOD 05/17/2024 7:19 AM [facility] NRBC Absolute 0.00 <0.10 K/mcL LAB HEMETOLOGY METHOD 05/17/2024 7:19 AM [facility] Blood Venous blood specimen / Unknown Venipuncture / Unknown 05/17/2024 6:09 AM EST 05/17/2024 6:54 AM EST Madeline SALINAS LAB BLOOD ORDERABLES [facility] [address] [place] [address], * (ABNORMAL) Comprehensive metabolic panel (05/17/2024 6:09 AM EST) Sodium 138 133 - 145 mmol/L LAB CHEMISTRY METHOD 05/17/2024 8:00 AM [facility] Potassium 3.8 3.5 - 5.5 mmol/L LAB CHEMISTRY METHOD 05/17/2024 8:00 AM [facility] Chloride 105 96 - 110 mmol/L LAB CHEMISTRY METHOD 05/17/2024 8:00 AM [facility] CO2 27 21 - 32 mmol/L LAB CHEMISTRY METHOD 05/17/2024 8:00 AM [facility] Anion Gap 6 3 - 11 LAB CHEMISTRY METHOD 05/17/2024 8:00 AM [facility] Glucose 132(H) 70 - 100 mg/dL LAB CHEMISTRY METHOD 05/17/2024 8:00 AM [facility] BUN 13 5 - 25 mg/dL LAB CHEMISTRY METHOD 05/17/2024 8:00 AM [facility] Creatinine 0.63 0.50 - 1.10 mg/dL LAB CHEMISTRY METHOD 05/17/2024 8:00 AM [facility] eGFR 111 >=60 mL/min/1. 73m2 LAB CHEMISTRY METHOD 05/17/2024 8:00 AM [facility] Comment:Calculation based on the??Chronic Kidney Disease Epidemiology Collaboration (CKD-EPI) equation refit??without adjustment for race. BUN/Creatinine Ratio 20.6 LAB CHEMISTRY METHOD 05/17/2024 8:00 AM [facility] Calcium 8.8 8.5 - 10.5 mg/dL LAB CHEMISTRY METHOD 05/17/2024 8:00 AM [facility] AST (SGOT) 15 10 - 42 unit/L LAB CHEMISTRY METHOD 05/17/2024 8:00 AM [facility] ALT (SGPT) 25 10 - 60 unit/L LAB CHEMISTRY METHOD 05/17/2024 8:00 AM [facility] Alkaline Phosphatase 66 42 - 121 unit/L LAB CHEMISTRY METHOD 05/17/2024 8:00 AM [facility] Total Protein 6.1 6.0 - 8.0 g/dL LAB CHEMISTRY METHOD 05/17/2024 8:00 AM [facility] Albumin 3.0(L) 3.2 - 5.0 g/dL LAB CHEMISTRY METHOD 05/17/2024 8:00 AM [facility] Total Bilirubin 0.3 0.0 - 1.4 mg/dL LAB CHEMISTRY METHOD 05/17/2024 8:[address] [facility] Blood Venous blood specimen / Unknown Venipuncture / Unknown 05/17/2024 6:09 AM EST 05/17/2024 6:54 AM EST Madeline Morales PA LAB BLOOD ORDERABLES [facility] [address] [place] [address], [place] [phone] * (ABNORMAL) POCT Glucose, blood (05/16/2024 8:04 PM EST) Glucose POCT 127(H) 70 - 100 mg/dL 05/16/2024 8:[address] [facility] Blood Capillary blood specimen / Unknown 05/16/2024 8:04 PM EST 05/16/2024 8:06 PM EST Neida Riveroese DO LAB POINT OF CARE TEST DOCKED DEVICE UNSOLICITED RESULTS Performing Organization Address City/[facility]/ZIP Co de Phone Number [facility] [address] [place] [address], [place] [phone] * POCT Glucose, blood (05/16/2024 4:36 PM EST) Glucose POCT 94 70 - 100 mg/dL 05/16/2024 4:[address] [facility] Blood Capillary blood specimen / Unknown 05/16/2024 4:36 PM EST 05/16/2024 4:38 PM EST Neida Riveroese DO LAB POINT OF CARE TEST DOCKED DEVICE UNSOLICITED RESULTS [facility] [address] [place] [address], [place] [phone] * Guy urine culture tube (05/16/2024 4:16 PM EST) [facility] Extra Tube Hold for add-ons. 05/16/2024 6:02 PM [facility] Comment:Auto resulted. Urine Urine specimen obtained by clean catch procedure / Unknown Non-blood Collection / Unknown 05/16/2024 4:16 PM EST 05/16/2024 4:52 PM EST Madeline SALINAS LAB URINE ORDERABLES [facility] [address] [place] [address], [place] [phone] * Urinalysis with reflex microscopic and culture (05/16/2024 4:16 PM EST) [facility] [address] Urine 1.019 1.003 - 1.030 LAB URINALYSIS - AUTOMATED METHOD 05/16/2024 5:28 PM [facility] pH, Urine 6.5 5.0 - 8.0 pH LAB URINALYSIS - AUTOMATED METHOD 05/16/2024 5:28 PM [facility] Leukocytes, Urine Negative Negative LAB URINALYSIS - AUTOMATED METHOD 05/16/2024 5:28 PM [facility] Nitrite, Urine Negative Negative LAB URINALYSIS - AUTOMATED METHOD 05/16/2024 5:28 PM [facility] Protein, Urine Negative <=Trace mg/dL LAB URINALYSIS - AUTOMATED METHOD 05/16/2024 5:28 PM [facility] Glucose, Urine Negative Negative mg/dL LAB URINALYSIS - AUTOMATED METHOD 05/16/2024 5:28 PM [facility] Ketones, Urine Negative Negative mg/dL LAB URINALYSIS - AUTOMATED METHOD 05/16/2024 5:28 PM [facility] Urobilinogen, Urine 1.0 0.2 - 1.0 mg/dL LAB URINALYSIS - AUTOMATED METHOD 05/16/2024 5:[address] [facility] Bilirubin, Urine Negative Negative LAB URINALYSIS - AUTOMATED METHOD 05/16/2024 5:[address] [facility] Blood, Urine Negative Negative LAB URINALYSIS - AUTOMATED METHOD 05/16/2024 5:28 PM [facility] Urine Urine specimen obtained by clean catch procedure / Unknown Non-blood Collection / Unknown 05/16/2024 4:16 PM EST 05/16/2024 4:52 PM EST Madeline SALINAS LAB URINE ORDERABLES [facility] [address] [place] [address], [place] [phone] * POCT Glucose, blood (05/16/2024 11:05 AM EST) Glucose POCT 94 70 - 100 mg/dL 05/16/2024 11:07 AM [facility] Blood Capillary blood specimen / Unknown 05/16/2024 11:05 AM EST 05/16/2024 11:08 AM EST Neida Bailey DO LAB POINT OF CARE TEST DOCKED DEVICE UNSOLICITED RESULTS Performing Organization Address [facility]/ZIP Co de Phone Number [facility] [address] [place] [address], [place] [phone] * (ABNORMAL) POCT Glucose, blood (05/16/2024 7:19 AM EST) Glucose POCT 157(H) 70 - 100 mg/dL 05/16/2024 7:[address] [facility] Blood Capillary blood specimen / Unknown 05/16/2024 7:19 AM EST 05/16/2024 7:22 AM EST Neida Bailey DO LAB POINT OF CARE TEST DOCKED DEVICE UNSOLICITED RESULTS Performing Organization Address [facility] de Phone Number [facility] [address] [place] [address], * (ABNORMAL) POCT Glucose, blood (05/15/2024 8:17 PM EST) Glucose POCT 151(H) 70 - 100 mg/dL 05/15/2024 8:[address] [facility] Blood Capillary blood specimen / Unknown 05/15/2024 8:17 PM EST 05/15/2024 8:18 PM EST Neida Emanuel Lynn DO LAB POINT OF CARE TEST DOCKED DEVICE UNSOLICITED RESULTS Performing Organization Address [facility] de Phone Number [facility] [address] [place] [address], [place] [phone] * POCT Glucose, blood (05/15/2024 3:47 PM EST) Glucose POCT 84 70 - 100 mg/dL 05/15/2024 3:[address] [facility] Blood Capillary blood specimen / Unknown 05/15/2024 3:47 PM EST 05/15/2024 3:49 PM EST Neida Riveroese [employer] LAB POINT OF CARE TEST DOCKED DEVICE UNSOLICITED RESULTS Performing Organization Address [facility] Co de Phone Number [facility] [address] [place] [address], [place] [phone] * (ABNORMAL) POCT Glucose, blood (05/15/2024 11:30 AM EST) Glucose POCT 169(H) 70 - 100 mg/dL 05/15/2024 11:[address] [facility] Blood Capillary blood specimen / Unknown 05/15/2024 11:30 AM EST 05/15/2024 11:32 AM EST Neida Riveroese DO LAB POINT OF CARE TEST DOCKED DEVICE UNSOLICITED RESULTS Performing Organization Address [facility] Co de Phone Number [facility] [address] [place] [address], [place] [phone] * (ABNORMAL) POCT Glucose, blood (05/15/2024 7:15 AM EST) Glucose POCT 184(H) 70 - 100 mg/dL 05/15/2024 7:[address] [facility] Blood Capillary blood specimen / Unknown 05/15/2024 7:15 AM EST 05/15/2024 7:18 AM EST [facility]INT [facility] CARE TEST DOCKED DEVICE UNSOLICITED RESULTS Performing Organization Address [facility] de Phone Number [facility] [address] [place] [address], [place] [phone] * (ABNORMAL) POCT Glucose, blood (05/14/2024 8:20 PM EST) Glucose POCT 189(H) 70 - 100 mg/dL 05/14/2024 8:[address] [facility] Blood Capillary blood specimen / Unknown 05/14/2024 8:20 PM EST 05/14/2024 8:21 PM EST [facility] POINT OF CARE TEST DOCKED DEVICE UNSOLICITED RESULTS Performing Organization Address [facility] Co de Phone Number [facility] [address] [place] [address], [place] [phone] * POCT Glucose, blood (05/14/2024 4:00 PM EST) Glucose POCT 77 70 - 100 mg/dL 05/14/2024 4:[address] [facility] Blood Capillary blood specimen / Unknown 05/14/2024 4:00 PM EST 05/14/2024 4:02 PM EST Neida Bailey [employer] LAB POINT OF CARE TEST DOCKED DEVICE UNSOLICITED RESULTS Performing Organization Address [facility]/ZIP Co de Phone Number [facility] [address] [place] [address], [place] [phone] * (ABNORMAL) POCT Glucose, blood (05/14/2024 11:16 AM EST) Glucose POCT 110(H) 70 - 100 mg/dL 05/14/2024 11:[address] [facility] Blood Capillary blood specimen / Unknown 05/14/2024 11:16 AM EST 05/14/2024 11:18 AM EST Neida [employer] LAB POINT OF CARE TEST DOCKED DEVICE UNSOLICITED RESULTS Performing Organization Address [facility]/ZIP Co de Phone Number [facility] [address] [place] [address], [place] [phone] * (ABNORMAL) POCT Glucose, blood (05/14/2024 7:18 AM EST) Glucose POCT 136(H) 70 - 100 mg/dL 05/14/2024 7:[address] [facility] Blood Capillary blood specimen / Unknown 05/14/2024 7:18 AM EST 05/14/2024 7:21 AM EST Neida [employer] LAB POINT OF CARE TEST DOCKED DEVICE UNSOLICITED RESULTS Performing Organization Address City/[facility]/ZIP Co de Phone Number [facility] [address] [place] [address], [place] [phone] * (ABNORMAL) POCT Glucose, blood (05/13/2024 7:59 PM EST) Glucose POCT 171(H) 70 - 100 mg/dL 05/13/2024 8:[address] [facility] Blood Capillary blood specimen / Unknown 05/13/2024 7:59 PM EST 05/13/2024 8:01 PM EST Neida Castellanos Lynn DO LAB POINT OF CARE TEST DOCKED DEVICE UNSOLICITED RESULTS [facility] [address] [place] [address], [place] [phone] * (ABNORMAL) POCT Glucose, blood (05/13/2024 3:53 PM EST) Glucose POCT 103(H) 70 - 100 mg/dL 05/13/2024 3:[address] [facility] Blood Capillary blood specimen / Unknown 05/13/2024 3:53 PM EST 05/13/2024 3:55 PM EST Neida Riveroese [employer] LAB POINT OF CARE TEST DOCKED DEVICE UNSOLICITED RESULTS Performing Organization Address [facility]/ZIP Co de Phone Number [facility] [address] [place] [address], [place] [phone] * (ABNORMAL) POCT Glucose, blood (05/13/2024 11:03 AM EST) Glucose POCT 137(H) 70 - 100 mg/dL 05/13/2024 11:[address] [facility] Blood Capillary blood specimen / Unknown 05/13/2024 11:03 AM EST 05/13/2024 11:09 AM EST Neida A Lynn [employer] LAB POINT OF CARE TEST DOCKED DEVICE UNSOLICITED RESULTS [facility] [address] [place] [address], [place] [phone] * (ABNORMAL) POCT Glucose, blood (05/13/2024 7:14 AM EST) [facility] Glucose POCT 127(H) 70 - 100 mg/dL 05/13/2024 7:[address] [facility] Blood Capillary blood specimen / Unknown 05/13/2024 7:14 AM EST 05/13/2024 7:19 AM EST Neida Bailey DO LAB POINT OF CARE TEST DOCKED DEVICE UNSOLICITED RESULTS Performing Organization Address City/[facility]/ZIP Co de Phone Number [facility] [address] [place] [address], [place] [phone] * (ABNORMAL) Creatine kinase and CKMB (05/13/2024 5:52 AM EST) [facility] Total CK 31 22 - 269 unit/L LAB CHEMISTRY METHOD 05/13/2024 6:[address] [facility] CK-MB <1.0(L) 1.0 - 3.6 ng/mL LAB CHEMISTRY METHOD 05/13/2024 6:[address] [facility] CK-MB Index <0.0(L) 0.0 - 5.0 LAB CHEMISTRY METHOD 05/13/2024 6:[address] [facility] Blood Venous blood specimen / Unknown Venipuncture / Unknown 05/13/2024 5:52 AM EST 05/13/2024 6:07 AM EST Leah Philippe NP LAB BLOOD OR DERABLES Performing Organization Address [facility]/State/ZIP Co de Phone Number [facility] [address] [place] [address], [place] [phone] * (ABNORMAL) Comprehensive metabolic panel (05/13/2024 5:52 AM EST) Sodium 137 133 - 145 mmol/L LAB CHEMISTRY METHOD 05/13/2024 6:45 AM [facility] Potassium 3.9 3.5 - 5.5 mmol/L LAB CHEMISTRY METHOD 05/13/2024 6:45 AM [facility] Chloride 104 96 - 110 mmol/L LAB CHEMISTRY METHOD 05/13/2024 6:45 AM [facility] CO2 29 21 - 32 mmol/L LAB CHEMISTRY METHOD 05/13/2024 6:45 AM [facility] Anion Gap 4 3 - 11 LAB CHEMISTRY METHOD 05/13/2024 6:45 AM [facility] Glucose 111(H) 70 - 100 mg/dL LAB CHEMISTRY METHOD 05/13/2024 6:45 AM [facility] BUN 13 5 - 25 mg/dL LAB CHEMISTRY METHOD 05/13/2024 6:45 AM [facility] Creatinine 0.69 0.50 - 1.10 mg/dL LAB CHEMISTRY METHOD 05/13/2024 6:45 AM [facility] eGFR 109 >=60 mL/min/1. 73m2 LAB CHEMISTRY METHOD 05/13/2024 6:45 AM [facility] Comment:Calculation based on the??Chronic Kidney Disease Epidemiology Collaboration (CKD-EPI) equation refit??without adjustment for race. BUN/Creatinine Ratio 18.8 LAB CHEMISTRY METHOD 05/13/2024 6:45 AM [facility] Calcium 9.2 8.5 - 10.5 mg/dL LAB CHEMISTRY METHOD 05/13/2024 6:45 AM [facility] AST (SGOT) 14 10 - 42 unit/L LAB CHEMISTRY METHOD 05/13/2024 6:45 AM [facility] ALT (SGPT) 26 10 - 60 unit/L LAB CHEMISTRY METHOD 05/13/2024 6:45 AM [facility] Alkaline Phosphatase 70 42 - 121 unit/L LAB CHEMISTRY METHOD 05/13/2024 6:[address] [facility] Total Protein 6.3 6.0 - 8.0 g/dL LAB CHEMISTRY METHOD 05/13/2024 6:45 AM [facility] Albumin 3.0(L) 3.2 - 5.0 g/dL LAB CHEMISTRY METHOD 05/13/2024 6:45 AM [facility] Total Bilirubin 0.5 0.0 - 1.4 mg/dL LAB CHEMISTRY METHOD 05/13/2024 6:45 AM [facility] Blood Venous blood specimen / Unknown Venipuncture / Unknown 05/13/2024 5:52 AM EST 05/13/2024 6:07 AM EST Leah Philippe NP LAB BLOOD OR DERABLES [facility] [address] [place] [address], * (ABNORMAL) Complete blood count (05/13/2024 5:52 AM EST) WBC 8.6 4.8 - 10.8 K/mcL LAB HEMETOLOGY METHOD 05/13/2024 7:11 AM [facility] RBC 4.20 3.80 - 4.80 M/mcL LAB HEMETOLOGY METHOD 05/13/2024 7:11 AM [facility] Hemoglobin 12.2 11.5 - 16.0 g/dL LAB HEMETOLOGY METHOD 05/13/2024 7:11 AM [facility] Hematocrit 37.0 35.0 - 47.0 % LAB HEMETOLOGY METHOD 05/13/2024 7:11 AM [facility] MCV 87.3 79.0 - 98.0 FL LAB HEMETOLOGY METHOD 05/13/2024 7:11 AM [facility] MCH 28.8 27.0 - 32.0 pcg LAB HEMETOLOGY METHOD 05/13/2024 7:[address] [facility] MCHC 33.0 32.0 - 37.0 g/dL LAB HEMETOLOGY METHOD 05/13/2024 7:[address] [facility] RDW 12.7 11.0 - 15.0 % LAB HEMETOLOGY METHOD 05/13/2024 7:[address] [facility] Platelets 378 130 - 400 K/mcL LAB HEMETOLOGY METHOD 05/13/2024 7:11 AM [facility] MPV 11.7(H) 7.0 - 11.0 FL LAB HEMETOLOGY METHOD 05/13/2024 7:[address] [facility] NRBC 0.0 <1.0 % LAB HEMETOLOGY METHOD 05/13/2024 7:11 AM [facility] NRBC Absolute 0.00 <0.10 K/mcL LAB HEMETOLOGY METHOD 05/13/2024 7:11 AM [facility] Blood Venous blood specimen / Unknown Venipuncture / Unknown 05/13/2024 5:52 AM EST 05/13/2024 6:07 AM EST Leah Philippe NP LAB BLOOD OR DERABLES [facility] [address] [place] [address], * (ABNORMAL) POCT Glucose, blood (05/12/2024 8:18 PM EST) [facility] Glucose POCT 117(H) 70 - 100 mg/dL 05/12/2024 8:[address] [facility] Blood Capillary blood specimen / Unknown 05/12/2024 8:18 PM EST 05/12/2024 8:20 PM EST Neida Bailey DO LAB POINT OF CARE TEST DOCKED DEVICE UNSOLICITED RESULTS Performing Organization Address [facility] Co de Phone Number [facility] [address] [place] [address], [place] [phone] * (ABNORMAL) POCT Glucose, blood (05/12/2024 3:46 PM EST) Glucose POCT 101(H) 70 - 100 mg/dL 05/12/2024 3:[address] [facility] Blood Capillary blood specimen / Unknown 05/12/2024 3:46 PM EST 05/12/2024 3:48 PM EST Neida Bailey LAB POINT OF CARE TEST DOCKED DEVICE UNSOLICITED RESULTS Performing Organization Address [facility] Co de Phone Number [facility] [address] [place] [address], [place] [phone] * (ABNORMAL) POCT Glucose, blood (05/12/2024 11:12 AM EST) Glucose POCT 147(H) 70 - 100 mg/dL 05/12/2024 11:[address] [facility] Blood Capillary blood specimen / Unknown 05/12/2024 11:12 AM EST 05/12/2024 11:14 AM EST Neida Riveroese LAB POINT OF CARE TEST DOCKED DEVICE UNSOLICITED RESULTS Performing Organization Address City/[facility] Co de Phone Number [facility] [address] [place] [address], [place] [phone] * (ABNORMAL) POCT Glucose, blood (05/12/2024 7:36 AM EST) Glucose POCT 130(H) 70 - 100 mg/dL 05/12/2024 7:[address] [facility] Blood Capillary blood specimen / Unknown 05/12/2024 7:36 AM EST 05/12/2024 7:38 AM EST Neiad Bailey DO LAB POINT OF CARE TEST DOCKED DEVICE UNSOLICITED RESULTS [facility] [address] [place] [address], [place] [phone] * (ABNORMAL) POCT Glucose, blood (05/11/2024 8:51 PM EST) Glucose POCT 125(H) 70 - 100 mg/dL 05/11/2024 8:[address] [facility] Blood Capillary blood specimen / Unknown 05/11/2024 8:51 PM EST 05/11/2024 8:53 PM EST Neida Emanuel Bailey [employer] LAB POINT OF CARE TEST DOCKED DEVICE UNSOLICITED RESULTS Performing Organization Address City/[facility]/ZIP Co de Phone Number [facility] [address] [place] [address], [place] [phone] * POCT Glucose, blood (05/11/2024 3:57 PM EST) Glucose POCT 91 70 - 100 mg/dL 05/11/2024 3:[address] [facility] Blood Capillary blood specimen / Unknown 05/11/2024 3:57 PM EST 05/11/2024 3:58 PM EST Neida Bailey DO LAB POINT OF CARE TEST DOCKED DEVICE UNSOLICITED RESULTS [facility] [address] [place] [address], [place] [phone] * POCT Glucose, blood (05/11/2024 11:16 AM EST) Glucose POCT 99 70 - 100 mg/dL 05/11/2024 11:[address] [facility] Blood Capillary blood specimen / Unknown 05/11/2024 11:16 AM EST 05/11/2024 11:18 AM EST Neida A Lynn DO LAB POINT OF CARE TEST DOCKED DEVICE UNSOLICITED RESULTS [facility] [address] [place] [address], [place] [phone] * (ABNORMAL) POCT Glucose, blood (05/11/2024 7:15 AM EST) Glucose POCT 168(H) 70 - 100 mg/dL 05/11/2024 7:[address] [facility] Blood Capillary blood specimen / Unknown 05/11/2024 7:15 AM EST 05/11/2024 7:18 AM EST Neida Riveroese [employer] LAB POINT OF CARE TEST DOCKED DEVICE UNSOLICITED RESULTS Performing Organization Address [facility]/ZIP Co de Phone Number [facility] [address] [place] [address], [place] [phone] * (ABNORMAL) POCT Glucose, blood (05/10/2024 8:10 PM EST) Glucose POCT 204(H) 70 - 100 mg/dL 05/10/2024 8:[address] [facility] Blood Capillary blood specimen / Unknown 05/10/2024 8:10 PM EST 05/10/2024 8:11 PM EST Neida A Lynn DO LAB POINT OF CARE TEST DOCKED DEVICE UNSOLICITED RESULTS Performing Organization Address City/[facility]/ZIP Co de Phone Number [facility] [address] [place] [address], [place] [phone] * (ABNORMAL) POCT Glucose, blood (05/10/2024 4:44 PM EST) Glucose POCT 150(H) 70 - 100 mg/dL 05/10/2024 4:[address] [facility] Blood Capillary blood specimen / Unknown 05/10/2024 4:44 PM EST 05/10/2024 4:47 PM EST Neida Bailey DO LAB POINT OF CARE TEST DOCKED DEVICE UNSOLICITED RESULTS [facility] [address] [place] [address], [place] [phone] * (ABNORMAL) POCT Glucose, blood (05/10/2024 11:10 AM EST) Glucose POCT 122(H) 70 - 100 mg/dL 05/10/2024 11:[address] [facility] Blood Capillary blood specimen / Unknown 05/10/2024 11:10 AM EST 05/10/2024 11:12 AM EST Neida Bailey DO LAB POINT OF CARE TEST DOCKED DEVICE UNSOLICITED RESULTS [facility] [address] [place] [address], * (ABNORMAL) POCT Glucose, blood (05/10/2024 7:18 AM EST) Glucose POCT 138(H) 70 - 100 mg/dL 05/10/2024 7:[address] [facility] Blood Capillary blood specimen / Unknown 05/10/2024 7:18 AM EST 05/10/2024 7:20 AM EST Neida Bailey [employer] LAB POINT OF CARE TEST DOCKED DEVICE UNSOLICITED RESULTS Performing Organization Address [facility]/ZIP Co de Phone Number [facility] [address] [place] [address], [place] [phone] * (ABNORMAL) POCT Glucose, blood (05/09/2024 7:49 PM EST) Glucose POCT 124(H) 70 - 100 mg/dL 05/09/2024 7:[address] [facility] Blood Capillary blood specimen / Unknown 05/09/2024 7:49 PM EST 05/09/2024 7:52 PM EST Neida Bailey DO LAB POINT OF CARE TEST DOCKED DEVICE UNSOLICITED RESULTS Performing Organization Address [facility] Co de Phone Number [facility] [address] [place] [address], [place] [phone] * MR Brain wo Contrast (05/09/2024 5:31 [...] dimensions are difficult to quantify but a sales representative advertising measurement on image 21 of series 3 is 1.2 x 0.5 cm. On images 22-23 of series 3 is an area of restricted diffusion in the midline and right paracentral region of the srinivas, also compatible with an acute infarct. This is also difficult to accurately measure but a sales representative advertising measurement on image 22 is approximately 9 [...] dimensions are difficult to quantify but a sales representative advertising measurement on image 21 of series 3 is 1.2x 0.5 cm. On images 22-23 of series 3 is an area of restricted diffusionin the midline and right paracentral region of the srinivas, also compatiblewith an acute infarct. This is also difficult to accurately measure but a sales representative advertising measurement on image 22 is approximately 9 [...] infarct in the right aspect of the srniivas. There are 2 areas of restricted diffusion [...] on 05/10/2024 01:06:25 Melvi SALINAS IMG MRI MS OCEDURES * POCT Glucose, blood (05/09/2024 3:30 PM EST) Glucose POCT 84 70 - 100 mg/dL 05/09/2024 3:30 PM EST [facility] Blood Capillary blood specimen / Unknown 05/09/2024 3:30 PM EST 05/09/2024 3:31 PM EST Neida Riveroese DO LAB POINT OF CARE TEST DOCKED DEVICE UNSOLICITED RESULTS Performing Organization Address [facility] Co de Phone Number [facility] [address] [place] [address], [place] [phone] * (ABNORMAL) POCT Glucose, blood (05/09/2024 11:05 AM EST) Glucose POCT 134(H) 70 - 100 mg/dL 05/09/2024 11:[address] [facility] Blood Capillary blood specimen / Unknown 05/09/2024 11:05 AM EST 05/09/2024 11:07 AM EST [facility] DOCKED DEVICE UNSOLICITED RESULTS Performing Organization Address [facility] Co de Phone Number [facility] [address] [place] [address], [place] [phone] * (ABNORMAL) POCT Glucose, blood (05/09/2024 7:21 AM EST) Glucose POCT 214(H) 70 - 100 mg/dL 05/09/2024 7:21 AM EST [facility] Blood Capillary blood specimen / Unknown 05/09/2024 7:21 AM EST 05/09/2024 7:22 AM EST Neida Riveroese LAB POINT OF CARE TEST DOCKED DEVICE UNSOLICITED RESULTS Performing Organization Address [facility] Co de Phone Number [facility] [address] [place] [address], [place] [phone] * (ABNORMAL) POCT Glucose, blood (05/08/2024 8:19 PM EST) Glucose POCT 166(H) 70 - 100 mg/dL 05/08/2024 8:[address] [facility] Blood Capillary blood specimen / Unknown 05/08/2024 8:19 PM EST 05/08/2024 8:22 PM EST Neida Bailey DO LAB POINT OF CARE TEST DOCKED DEVICE UNSOLICITED RESULTS Performing Organization Address City/[facility]/ZIP Co de Phone Number [facility] [address] [place] [address], [place] [phone] * POCT Glucose, blood (05/08/2024 4:01 PM EST) Glucose POCT 96 70 - 100 mg/dL 05/08/2024 4:[address] [facility] Blood Capillary blood specimen / Unknown 05/08/2024 4:01 PM EST 05/08/2024 4:03 PM EST Neidamikal Bailey LAB POINT OF CARE TEST DOCKED DEVICE UNSOLICITED RESULTS Performing Organization Address [facility]/ZIP Co de Phone Number [facility] [address] [place] [address], [place] [phone] * (ABNORMAL) POCT Glucose, blood (05/08/2024 11:06 AM EST) Glucose POCT 143(H) 70 - 100 mg/dL 05/08/2024 11:[address] [facility] Blood Capillary blood specimen / Unknown 05/08/2024 11:06 AM EST 05/08/2024 11:08 AM EST Neida Bailey [employer] LAB POINT OF CARE TEST DOCKED DEVICE UNSOLICITED RESULTS Performing Organization Address City/[facility]/ZIP Co de Phone Number [facility] [address] [place] [address], [place] [phone] * (ABNORMAL) POCT Glucose, blood (05/08/2024 7:19 AM EST) Glucose POCT 156(H) 70 - 100 mg/dL 05/08/2024 7:[address] [facility] Blood Capillary blood specimen / Unknown 05/08/2024 7:19 AM EST 05/08/2024 7:22 AM EST Neida Riveroese DO LAB POINT OF CARE TEST DOCKED DEVICE UNSOLICITED RESULTS [facility] [address] [place] [address], [place] [phone] * (ABNORMAL) POCT Glucose, blood (05/07/2024 8:11 PM EST) Glucose POCT 177(H) 70 - 100 mg/dL 05/08/2024 7:[address] [facility] Blood Capillary blood specimen / Unknown 05/07/2024 8:11 PM EST 05/08/2024 7:18 AM EST Neida Rievroese DO LAB POINT OF CARE TEST DOCKED DEVICE UNSOLICITED RESULTS Performing Organization Address [facility]/ZIP Co de Phone Number [facility] [address] [place] [address], [place] [phone] * POCT Glucose, blood (05/07/2024 4:16 PM EST) Glucose POCT 99 70 - 100 mg/dL 05/07/2024 4:[address] [facility] Blood Capillary blood specimen / Unknown 05/07/2024 4:16 PM EST 05/07/2024 4:18 PM EST Neida Riveroese DO LAB POINT OF CARE TEST DOCKED DEVICE UNSOLICITED RESULTS Performing Organization Address City/[facility]/ZIP Co de Phone Number [facility] [address] [place] [address], * CT Head wo Contrast (05/07/2024 12:38 [...] Signed Date: 05/07/2024 12:50 ET Workstation ID: [id number] Transcribed By: Self Edit Transcribed Date: 05/07/2024 [...] Signed Date: 05/07/2024 12:50 ET Workstation ID: [id number] Transcribed By: Self Edit Transcribed Date: 05/07/2024 12:47 ET Neida Bailey DO IMG CT PROCEDURES * POCT Glucose, blood (05/07/2024 11:22 AM EST) Glucose POCT 72 70 - 100 mg/dL 05/07/2024 11:[address] [facility] Blood Capillary blood specimen / Unknown 05/07/2024 11:22 AM EST 05/07/2024 11:24 AM EST Neida Bailey DO LAB POINT OF CARE TEST DOCKED DEVICE UNSOLICITED RESULTS [facility] [address] [place] [address], * (ABNORMAL) POCT Glucose, blood (05/07/2024 7:21 AM EST) [facility] Glucose POCT 105(H) 70 - 100 mg/dL 05/07/2024 7:[address] [facility] Blood Capillary blood specimen / Unknown 05/07/2024 7:21 AM EST 05/07/2024 7:23 AM EST Neida Bailey DO LAB POINT OF CARE TEST DOCKED DEVICE UNSOLICITED RESULTS Performing Organization Address [facility]/ZIP Co de Phone Number [facility] [address] [place] [address], * (ABNORMAL) Complete blood count (05/07/2024 5:42 AM EST) [facility] WBC 6.7 4.8 - 10.8 K/mcL LAB HEMETOLOGY METHOD 05/07/2024 6:43 AM [facility] RBC 3.90 3.80 - 4.80 M/mcL LAB HEMETOLOGY METHOD 05/07/2024 6:43 AM [facility] Hemoglobin 11.2(L) 11.5 - 16.0 g/dL LAB HEMETOLOGY METHOD 05/07/2024 6:43 AM [facility] Hematocrit 34.5(L) 35.0 - 47.0 % LAB HEMETOLOGY METHOD 05/07/2024 6:43 AM [facility] MCV 89.4 79.0 - 98.0 FL LAB HEMETOLOGY METHOD 05/07/2024 6:43 AM [facility] MCH 29.0 27.0 - 32.0 pcg LAB HEMETOLOGY METHOD 05/07/2024 6:43 AM [facility] MCHC 32.5 32.0 - 37.0 g/dL LAB HEMETOLOGY METHOD 05/07/2024 6:[address] [facility] RDW 12.7 11.0 - 15.0 % LAB HEMETOLOGY METHOD 05/07/2024 6:43 AM [facility] Platelets 300 130 - 400 K/mcL LAB HEMETOLOGY METHOD 05/07/2024 6:[address] [facility] MPV 12.1(H) 7.0 - 11.0 FL LAB HEMETOLOGY METHOD 05/07/2024 6:[address] [facility] NRBC 0.0 <1.0 % LAB HEMETOLOGY METHOD 05/07/2024 6:43 AM [facility] NRBC Absolute 0.00 <0.10 K/mcL LAB HEMETOLOGY METHOD 05/07/2024 6:43 AM [facility] Blood Venous blood specimen / Unknown Venipuncture / Unknown 05/07/2024 5:42 AM EST 05/07/2024 6:32 AM EST Neida Bailey DO LAB BLOOD ORDERAB LES [facility] [address] [place] [address], * Basic metabolic panel (05/07/2024 5:42 AM EST) Sodium 139 133 - 145 mmol/L LAB CHEMISTRY METHOD 05/07/2024 7:[address] [facility] Potassium 4.0 3.5 - 5.5 mmol/L LAB CHEMISTRY METHOD 05/07/2024 7:04 AM [facility] Chloride 105 96 - 110 mmol/L LAB CHEMISTRY METHOD 05/07/2024 7:[address] [facility] CO2 28 21 - 32 mmol/L LAB CHEMISTRY METHOD 05/07/2024 7:04 AM [facility] Anion Gap 6 3 - 11 LAB CHEMISTRY METHOD 05/07/2024 7:04 AM [facility] Glucose 87 70 - 100 mg/dL LAB CHEMISTRY METHOD 05/07/2024 7:04 AM [facility] BUN 13 5 - 25 mg/dL LAB CHEMISTRY METHOD 05/07/2024 7:04 AM [facility] Creatinine 0.63 0.50 - 1.10 mg/dL LAB CHEMISTRY METHOD 05/07/2024 7:04 AM [facility] eGFR 111 >=60 mL/min/1. 73m2 LAB CHEMISTRY METHOD 05/07/2024 7:04 AM [facility] Comment:Calculation based on the??Chronic Kidney Disease Epidemiology Collaboration (CKD-EPI) equation refit??without adjustment for race. BUN/Creatinine Ratio 20.6 LAB CHEMISTRY METHOD 05/07/2024 7:04 AM [facility] Calcium 9.3 8.5 - 10.5 mg/dL LAB CHEMISTRY METHOD 05/07/2024 7:04 AM [facility] Blood Venous blood specimen / Unknown Venipuncture / Unknown 05/07/2024 5:42 AM EST 05/07/2024 6:31 AM EST Radhika Barber NP LAB BLOOD ORDERABLES [facility] [address] [place] [address], * (ABNORMAL) POCT Glucose, blood (05/06/2024 8:10 PM EST) Glucose POCT 129(H) 70 - 100 mg/dL 05/06/2024 8:[address] [facility] Blood Capillary blood specimen / Unknown 05/06/2024 8:10 PM EST 05/06/2024 8:12 PM EST Neida A Lynn DO LAB POINT OF CARE TEST DOCKED DEVICE UNSOLICITED RESULTS Performing Organization Address [facility]/ZIP Co de Phone Number [facility] [address] [place] [address], [place] [phone] * POCT Glucose, blood (05/06/2024 4:12 PM EST) Glucose POCT 81 70 - 100 mg/dL 05/06/2024 4:[address] [facility] Blood Capillary blood specimen / Unknown 05/06/2024 4:12 PM EST 05/06/2024 4:14 PM [facility]ARE TEST DOCKED DEVICE UNSOLICITED RESULTS Performing Organization Address [facility] Co de Phone Number [facility] [address] [place] [address], [place] [phone] * (ABNORMAL) POCT Glucose, blood (05/06/2024 11:21 AM EST) Glucose POCT 206(H) 70 - 100 mg/dL 05/06/2024 11:[address] [facility] Blood Capillary blood specimen / Unknown 05/06/2024 11:21 AM EST 05/06/2024 11:23 AM [facility]INT OF CARE TEST DOCKED DEVICE UNSOLICITED RESULTS Performing Organization Address [facility] Co de Phone Number [facility] [address] [place] [address], [place] [phone] * SST tube (05/06/2024 10:26 AM EST) Extra Tube Hold for add-ons. 05/06/2024 12:[address] [facility] Comment:Auto resulted. Blood Venous blood specimen / Unknown 05/06/2024 10:26 AM EST 05/06/2024 10:37 AM EST Neida Bailey DO LAB BLOOD ORDERAB LES [facility] [address] [place] [address], * (ABNORMAL) CBC auto differential (05/06/2024 10:26 AM EST) WBC 8.8 4.8 - 10.8 K/mcL LAB HEMETOLOGY METHOD 05/06/2024 10:49 AM [facility] RBC 4.10 3.80 - 4.80 M/mcL LAB HEMETOLOGY METHOD 05/06/2024 10:49 AM [facility] Hemoglobin 11.9 11.5 - 16.0 g/dL LAB HEMETOLOGY METHOD 05/06/2024 10:49 AM [facility] Hematocrit 35.6 35.0 - 47.0 % LAB HEMETOLOGY METHOD 05/06/2024 10:49 AM [facility] MCV 87.0 79.0 - 98.0 FL LAB HEMETOLOGY METHOD 05/06/2024 10:49 AM [facility] MCH 29.1 27.0 - 32.0 pcg LAB HEMETOLOGY METHOD 05/06/2024 10:49 AM [facility] MCHC 33.4 32.0 - 37.0 g/dL LAB HEMETOLOGY METHOD 05/06/2024 10:49 AM [facility] RDW 12.6 11.0 - 15.0 % LAB HEMETOLOGY METHOD 05/06/2024 10:49 AM [facility] Platelets 300 130 - 400 K/mcL LAB HEMETOLOGY METHOD 05/06/2024 10:49 AM [facility] MPV 11.8(H) 7.0 - 11.0 FL LAB HEMETOLOGY METHOD 05/06/2024 10:49 AM [facility] NRBC 0.0 <1.0 % LAB HEMETOLOGY METHOD 05/06/2024 10:49 AM [facility] NRBC Absolute 0.00 <0.10 K/mcL LAB HEMETOLOGY METHOD 05/06/2024 10:49 AM [facility] Neutrophils Relative 85.2 % LAB HEMETOLOGY METHOD 05/06/2024 10:49 AM [facility] Lymphocytes Relative 10.4 % LAB HEMETOLOGY METHOD 05/06/2024 10:49 AM [facility] Monocytes Relative 3.7 % LAB HEMETOLOGY METHOD 05/06/2024 10:49 AM [facility] Eosinophils Relative 0.2 % LAB HEMETOLOGY METHOD 05/06/2024 10:49 AM [facility] Basophils Relative 0.2 % LAB HEMETOLOGY METHOD 05/06/2024 10:49 AM [facility] Immature Granulocytes Relative 0.3 % LAB HEMETOLOGY METHOD 05/06/2024 10:49 AM [facility] Neutrophils Absolute 7.49(H) 1.50 - 7.00 K/mcL LAB HEMETOLOGY METHOD 05/06/2024 10:49 AM [facility] Lymphocytes Absolute 0.92(L) 1.00 - 5.00 K/mcL LAB HEMETOLOGY METHOD 05/06/2024 10:49 AM [facility] Monocytes Absolute 0.33 0.20 - 1.00 K/mcL LAB HEMETOLOGY METHOD 05/06/2024 10:49 AM [facility] Eosinophils Absolute 0.02 0.00 - 0.50 K/mcL LAB HEMETOLOGY METHOD 05/06/2024 10:[address] [facility] Basophils Absolute 0.02 0.00 - 0.20 K/[facility] LAB HEMETOLOGY METHOD 05/06/2024 10:[address] [facility] Immature Granulocytes Absolute 0.03 0.00 - 0.03 K/[facility] LAB HEMETOLOGY METHOD 05/06/2024 10:[address] [facility] Blood Venous blood specimen / Unknown Venipuncture / Unknown 05/06/2024 10:26 AM EST 05/06/2024 10:36 AM EST Radhika Barber [employer] LAB BLOOD ORDERABLES Performing Organization Address City/[facility]/ZIP Co de Phone Number [facility] [address] [place] [address], [place] [phone] * Guy urine culture tube (05/06/2024 8:55 AM EST) Extra Tube Hold for add-ons. 05/06/2024 11:[address] [facility] Comment:Auto resulted. Urine Urine specimen obtained by clean catch procedure / Unknown Non-blood Collection / Unknown 05/06/2024 8:55 AM EST 05/06/2024 9:08 AM EST Neida Bailey DO LAB URINE ORDERAB LES [facility] [address] [place] [address], [place] [phone] * (ABNORMAL) Urinalysis with reflex microscopic and culture (05/06/2024 8:55 AM EST) Specific [address] Urine 1.021 1.003 - 1.030 LAB URINALYSIS - AUTOMATED METHOD 05/06/2024 9:21 AM [facility] pH, Urine 6.0 5.0 - 8.0 pH LAB URINALYSIS - AUTOMATED METHOD 05/06/2024 9:21 AM [facility] Leukocytes, Urine Negative Negative LAB URINALYSIS - AUTOMATED METHOD 05/06/2024 9:21 AM [facility] Nitrite, Urine Negative Negative LAB URINALYSIS - AUTOMATED METHOD 05/06/2024 9:21 AM [facility] Protein, Urine Trace <=Trace mg/dL LAB URINALYSIS - AUTOMATED METHOD 05/06/2024 9:21 AM [facility] Glucose, Urine >=1000(A) Negative mg/dL LAB URINALYSIS - AUTOMATED METHOD 05/06/2024 9:21 AM [facility] Ketones, Urine 15(A) Negative mg/dL LAB URINALYSIS - AUTOMATED METHOD 05/06/2024 9:21 AM [facility] Urobilinogen , Urine 0.2 0.2 - 1.0 mg/dL LAB URINALYSIS - AUTOMATED METHOD 05/06/2024 9:21 AM [facility] Bilirubin, Urine Negative Negative LAB URINALYSIS - AUTOMATED METHOD 05/06/2024 9:21 AM [facility] Blood, Urine Large(A) Negative LAB URINALYSIS - AUTOMATED METHOD 05/06/2024 9:21 AM [facility] RBC, Urine 146.8(H) 0 - 4 /HPF LAB URINALYSIS - AUTOMATED METHOD 05/06/2024 9:21 AM [facility] WBC, Urine 2.4 0 - 4 /HPF LAB URINALYSIS - AUTOMATED METHOD 05/06/2024 9:21 AM [facility] Squamous Epithelial, Urine 24 0 - 60 /LPF LAB URINALYSIS - AUTOMATED METHOD 05/06/2024 9:21 AM [facility] Bacteria, Urine Negative Negative /HPF LAB URINALYSIS - AUTOMATED METHOD 05/06/2024 9:21 AM [facility] Hyaline Casts, Urine 2.5 0 - 3 /LPF LAB URINALYSIS - AUTOMATED METHOD 05/06/2024 9:[address] [facility] Urine Urine specimen obtained by clean catch procedure / Unknown Non-blood Collection / Unknown 05/06/2024 8:55 AM EST 05/06/2024 9:08 AM EST Neida Bailey DO LAB URINE ORDERAB LES Performing Organization Address City/[facility]/ZIP Co de Phone Number [facility] [address] [place] [address], [place] [phone] * (ABNORMAL) POCT Glucose, blood (05/05/2024 11:03 AM EST) Glucose POCT 184(H) 70 - 100 mg/dL 05/05/2024 11:[address] [facility] Blood Capillary blood specimen / Unknown 05/05/2024 11:03 AM EST 05/05/2024 11:06 AM EST Neida Bailey DO LAB POINT OF CARE TEST DOCKED DEVICE UNSOLICITED RESULTS Performing Organization Address [facility] de Phone Number [facility] [address] [place] [address], [place] [phone] * (ABNORMAL) POCT Glucose, blood (05/05/2024 7:18 AM EST) Glucose POCT 135(H) 70 - 100 mg/dL 05/05/2024 7:[address] [facility] Blood Capillary blood specimen / Unknown 05/05/2024 7:18 AM EST 05/05/2024 7:21 AM EST Neida Riveroese DO LAB POINT OF CARE TEST DOCKED DEVICE UNSOLICITED RESULTS Performing Organization Address [facility]/ZIP Co de Phone Number [facility] [address] [place] [address], [place] [phone] * (ABNORMAL) POCT Glucose, blood (05/04/2024 8:06 PM EST) Glucose POCT 128(H) 70 - 100 mg/dL 05/04/2024 8:[address] [facility] Blood Capillary blood specimen / Unknown 05/04/2024 8:06 PM EST 05/04/2024 8:08 PM EST Neida Castellanos Lynn DO LAB POINT OF CARE TEST DOCKED DEVICE UNSOLICITED RESULTS Performing Organization Address City/[facility]/ZIP Co de Phone Number [facility] [address] [place] [address], * POCT Glucose, blood (05/04/2024 4:05 PM EST) Glucose POCT 78 70 - 100 mg/dL 05/04/2024 4:[address] [facility] Blood Capillary blood specimen / Unknown 05/04/2024 4:05 PM EST 05/04/2024 4:07 PM EST Neida Castellanos Lynn [employer] LAB POINT OF CARE TEST DOCKED DEVICE UNSOLICITED RESULTS Performing Organization Address City/[facility]/ZIP Co de Phone Number [facility] [address] [place] [address], [place] [phone] * POCT Glucose, blood (05/04/2024 11:08 AM EST) Glucose POCT 71 70 - 100 mg/dL 05/04/2024 11:[address] [facility] Blood Capillary blood specimen / Unknown 05/04/2024 11:08 AM EST 05/04/2024 11:11 AM EST Neida A Lynn DO LAB POINT OF CARE TEST DOCKED DEVICE UNSOLICITED RESULTS [facility] [address] [place] [address], * (ABNORMAL) POCT Glucose, blood (05/04/2024 7:15 AM EST) Glucose POCT 109(H) 70 - 100 mg/dL 05/04/2024 7:[address] [facility] Blood Capillary blood specimen / Unknown 05/04/2024 7:15 AM EST 05/04/2024 7:20 AM EST Neida Riveroese DO LAB POINT OF CARE TEST DOCKED DEVICE UNSOLICITED RESULTS Performing Organization Address [facility]/ZIP Co de Phone Number [facility] [address] [place] [address], * (ABNORMAL) POCT Glucose, blood (05/03/2024 8:21 PM EST) Glucose POCT 139(H) 70 - 100 mg/dL 05/03/2024 8:[address] [facility] Blood Capillary blood specimen / Unknown 05/03/2024 8:21 PM EST 05/03/2024 8:23 PM EST Neida Bailey DO LAB POINT OF CARE TEST DOCKED DEVICE UNSOLICITED RESULTS [facility] [address] [place] [address], [place] [phone] * POCT Glucose, blood (05/03/2024 4:12 PM EST) Glucose POCT 75 70 - 100 mg/dL 05/03/2024 4:[address] [facility] Blood Capillary blood specimen / Unknown 05/03/2024 4:12 PM EST 05/03/2024 4:14 PM EST Neida Bailey DO LAB POINT OF CARE TEST DOCKED DEVICE UNSOLICITED RESULTS Performing Organization Address [facility]/ZIP Co de Phone Number [facility] [address] [place] [address], [place] [phone] * POCT Glucose, blood (05/03/2024 11:26 AM EST) Glucose POCT 90 70 - 100 mg/dL 05/03/2024 11:[address] [facility] Blood Capillary blood specimen / Unknown 05/03/2024 11:26 AM EST 05/03/2024 11:28 AM EST Neida Bailey [employer] LAB POINT OF CARE TEST DOCKED DEVICE UNSOLICITED RESULTS Performing Organization Address [facility] de Phone Number [facility] [address] [place] [address], [place] [phone] * (ABNORMAL) POCT Glucose, blood (05/03/2024 7:14 AM EST) Glucose POCT 133(H) 70 - 100 mg/dL 05/03/2024 7:[address] [facility] Blood Capillary blood specimen / Unknown 05/03/2024 7:14 AM EST 05/03/2024 7:16 AM EST Neida Bailey DO LAB POINT OF CARE TEST DOCKED DEVICE UNSOLICITED RESULTS Performing Organization Address [facility] Co de Phone Number [facility] [address] [place] [address], [place] [phone] * (ABNORMAL) POCT Glucose, blood (05/02/2024 8:39 PM EST) Glucose POCT 143(H) 70 - 100 mg/dL 05/02/2024 8:[address] [facility] Blood Capillary blood specimen / Unknown 05/02/2024 8:39 PM EST 05/02/2024 8:41 PM EST Neida Bailey DO LAB POINT OF CARE TEST DOCKED DEVICE UNSOLICITED RESULTS Performing Organization Address [facility]/ZIP Co de Phone Number [facility] [address] [place] [address], [place] [phone] * (ABNORMAL) POCT Glucose, blood (05/02/2024 3:33 PM EST) Glucose POCT 259(H) 70 - 100 mg/dL 05/02/2024 3:[address] [facility] Blood Capillary blood specimen / Unknown 05/02/2024 3:33 PM EST 05/02/2024 3:35 PM EST Neida Bailey LAB POINT OF CARE TEST DOCKED DEVICE UNSOLICITED RESULTS Performing Organization Address [facility]/ZIP Co de Phone Number [facility] [address] [place] [address], [place] [phone] * (ABNORMAL) POCT Glucose, blood (05/02/2024 11:36 AM EST) Glucose POCT 185(H) 70 - 100 mg/dL 05/02/2024 11:[address] [facility] Blood Capillary blood specimen / Unknown 05/02/2024 11:36 AM EST 05/02/2024 11:37 AM EST Neidamikal Bailey DO LAB POINT OF CARE TEST DOCKED DEVICE UNSOLICITED RESULTS Performing Organization Address City/[facility]/ZIP Co de Phone Number [facility] [address] [place] [address], [place] [phone] * (ABNORMAL) POCT Glucose, blood (05/02/2024 7:32 AM EST) Glucose POCT 123(H) 70 - 100 mg/dL 05/02/2024 7:[address] [facility] Blood Capillary blood specimen / Unknown 05/02/2024 7:32 AM EST 05/02/2024 7:34 AM EST Neida A Lynn DO LAB POINT OF CARE TEST DOCKED DEVICE UNSOLICITED RESULTS [facility] [address] [place] [address], [place] [phone] * (ABNORMAL) POCT Glucose, blood (05/01/2024 8:15 PM EST) Glucose POCT 152(H) 70 - 100 mg/dL 05/01/2024 8:[address] [facility] Blood Capillary blood specimen / Unknown 05/01/2024 8:15 PM EST 05/01/2024 8:17 PM EST Neida Riveroese DO LAB POINT OF CARE TEST DOCKED DEVICE UNSOLICITED RESULTS Performing Organization Address [facility]/ZIP Co de Phone Number [facility] [address] [place] [address], [place] [phone] * (ABNORMAL) POCT Glucose, blood (05/01/2024 3:47 PM EST) Glucose POCT 177(H) 70 - 100 mg/dL 05/01/2024 3:[address] [facility] Blood Capillary blood specimen / Unknown 05/01/2024 3:47 PM EST 05/01/2024 3:50 PM EST Neida A Lynn DO LAB POINT OF CARE TEST DOCKED DEVICE UNSOLICITED RESULTS Performing Organization Address City/[facility]/ZIP Co de Phone Number [facility] [address] [place] [address], [place] [phone] * (ABNORMAL) POCT Glucose, blood (05/01/2024 11:05 AM EST) Glucose POCT 200(H) 70 - 100 mg/dL 05/01/2024 11:[address] [facility] Blood Capillary blood specimen / Unknown 05/01/2024 11:05 AM EST 05/01/2024 11:10 AM EST Neida [employer] LAB POINT OF CARE TEST DOCKED DEVICE UNSOLICITED RESULTS [facility] [address] [place] [address], * (ABNORMAL) POCT Glucose, blood (05/01/2024 7:27 AM EST) Glucose POCT 132(H) 70 - 100 mg/dL 05/01/2024 7:[address] [facility] Blood Capillary blood specimen / Unknown 05/01/2024 7:27 AM EST 05/01/2024 7:29 AM EST Neida Bailey [employer] LAB POINT OF CARE TEST DOCKED DEVICE UNSOLICITED RESULTS [facility] [address] [place] [address], [place] [phone] * (ABNORMAL) POCT Glucose, blood (04/30/2024 7:55 PM EST) Glucose POCT 184(H) 70 - 100 mg/dL 04/30/2024 7:[address] [facility] Blood Capillary blood specimen / Unknown 04/30/2024 7:55 PM EST 04/30/2024 7:57 PM EST Neida Riveroese DO LAB POINT OF CARE TEST DOCKED DEVICE UNSOLICITED RESULTS Performing Organization Address [facility] Co de Phone Number [facility] [address] [place] [address], * (ABNORMAL) POCT Glucose, blood (04/30/2024 3:52 PM EST) Glucose POCT 170(H) 70 - 100 mg/dL 04/30/2024 3:[address] [facility] Blood Capillary blood specimen / Unknown 04/30/2024 3:52 PM EST 04/30/2024 3:54 PM EST Neida Emanuel Bailey DO LAB POINT OF CARE TEST DOCKED DEVICE UNSOLICITED RESULTS Performing Organization Address [facility] Co de Phone Number [facility] [address] [place] [address], * (ABNORMAL) POCT Glucose, blood (04/30/2024 11:02 AM EST) Glucose POCT 174(H) 70 - 100 mg/dL 04/30/2024 11:[address] [facility] Blood Capillary blood specimen / Unknown 04/30/2024 11:02 AM EST 04/30/2024 11:05 AM EST Neidamikal Bailey LAB POINT OF CARE TEST DOCKED DEVICE UNSOLICITED RESULTS Performing Organization Address [facility] Co de Phone Number [facility] [address] [place] [address], [place] [phone] * (ABNORMAL) POCT Glucose, blood (04/30/2024 7:15 AM EST) Glucose POCT 110(H) 70 - 100 mg/dL 04/30/2024 7:[address] [facility] Blood Capillary blood specimen / Unknown 04/30/2024 7:15 AM EST 04/30/2024 7:19 AM EST Neida Bailey DO LAB POINT OF CARE TEST DOCKED DEVICE UNSOLICITED RESULTS Performing Organization Address [facility]/ZIP Co de Phone Number [facility] [address] [place] [address], [place] [phone] * (ABNORMAL) POCT Glucose, blood (04/29/2024 8:10 PM EST) Glucose POCT 155(H) 70 - 100 mg/dL 04/29/2024 8:[address] [facility] Blood Capillary blood specimen / Unknown 04/29/2024 8:10 PM EST 04/29/2024 8:12 PM EST Neida Bailey LAB POINT OF CARE TEST DOCKED DEVICE UNSOLICITED RESULTS Performing Organization Address [facility] Co de Phone Number [facility] [address] [place] [address], [place] [phone] * (ABNORMAL) POCT Glucose, blood (04/29/2024 3:42 PM EST) Glucose POCT 143(H) 70 - 100 mg/dL 04/29/2024 3:[address] [facility] Blood Capillary blood specimen / Unknown 04/29/2024 3:42 PM EST 04/29/2024 3:43 PM EST Neida Bailey [employer] LAB POINT OF CARE TEST DOCKED DEVICE UNSOLICITED RESULTS Performing Organization Address [facility]/ZIP Co de Phone Number [facility] [address] [place] [address], [place] [phone] * (ABNORMAL) POCT Glucose, blood (04/29/2024 11:02 AM EST) Glucose POCT 145(H) 70 - 100 mg/dL 04/29/2024 11:[address] [facility] Blood Capillary blood specimen / Unknown 04/29/2024 11:02 AM EST 04/29/2024 11:05 AM EST Neida Riveroese DO LAB POINT OF CARE TEST DOCKED DEVICE UNSOLICITED RESULTS Performing Organization Address City/[facility]/ZIP Co de Phone Number [facility] [address] [place] [address], [place] [phone] * (ABNORMAL) POCT Glucose, blood (04/29/2024 7:19 AM EST) Glucose POCT 114(H) 70 - 100 mg/dL 04/29/2024 7:20 AM [facility] Blood Capillary blood specimen / Unknown 04/29/2024 7:19 AM EST 04/29/2024 7:21 AM EST Neida Bailey [facility] POINT OF CARE TEST DOCKED DEVICE UNSOLICITED RESULTS Performing Organization Address [facility]/ZIP Co de Phone Number [facility] [address] [place] [address], [place] [phone] * (ABNORMAL) Complete blood count (04/29/2024 6:07 AM EST) WBC 7.8 4.8 - 10.8 K/mcL LAB HEMETOLOGY METHOD 04/29/2024 7:[address] [facility] RBC 4.30 3.80 - 4.80 M/mcL LAB HEMETOLOGY METHOD 04/29/2024 7:[address] [facility] Hemoglobin 12.4 11.5 - 16.0 g/dL LAB HEMETOLOGY METHOD 04/29/2024 7:[address] [facility] Hematocrit 38.2 35.0 - 47.0 % LAB HEMETOLOGY METHOD 04/29/2024 7:[address] [facility] MCV 89.7 79.0 - 98.0 FL LAB HEMETOLOGY METHOD 04/29/2024 7:00 AM [facility] MCH 29.1 27.0 - 32.0 pcg LAB HEMETOLOGY METHOD 04/29/2024 7:[address] [facility] MCHC 32.5 32.0 - 37.0 g/dL LAB HEMETOLOGY METHOD 04/29/2024 7:[address] [facility] RDW 12.6 11.0 - 15.0 % LAB HEMETOLOGY METHOD 04/29/2024 7:00 AM [facility] Platelets 291 130 - 400 K/mcL LAB HEMETOLOGY METHOD 04/29/2024 7:00 AM [facility] MPV 12.0(H) 7.0 - 11.0 FL LAB HEMETOLOGY METHOD 04/29/2024 7:[address] [facility] NRBC 0.0 <1.0 % LAB HEMETOLOGY METHOD 04/29/2024 7:00 AM [facility] NRBC Absolute 0.00 <0.10 K/mcL LAB HEMETOLOGY METHOD 04/29/2024 7:00 AM [facility] Blood Venous blood specimen / Unknown Venipuncture / Unknown 04/29/2024 6:07 AM EST 04/29/2024 6:43 AM EST Leah Philippe NP LAB BLOOD OR DERABLES [facility] [address] [place] [address], * (ABNORMAL) Basic metabolic panel (04/29/2024 6:07 AM EST) Sodium 141 133 - 145 mmol/L LAB CHEMISTRY METHOD 04/29/2024 7:29 AM [facility] Potassium 4.2 3.5 - 5.5 mmol/L LAB CHEMISTRY METHOD 04/29/2024 7:29 AM [facility] Chloride 106 96 - 110 mmol/L LAB CHEMISTRY METHOD 04/29/2024 7:29 AM [facility] CO2 28 21 - 32 mmol/L LAB CHEMISTRY METHOD 04/29/2024 7:29 AM [facility] Anion Gap 7 3 - 11 LAB CHEMISTRY METHOD 04/29/2024 7:29 AM [facility] Glucose 110(H) 70 - 100 mg/dL LAB CHEMISTRY METHOD 04/29/2024 7:29 AM [facility] BUN 11 5 - 25 mg/dL LAB CHEMISTRY METHOD 04/29/2024 7:29 AM [facility] Creatinine 0.68 0.50 - 1.10 mg/dL LAB CHEMISTRY METHOD 04/29/2024 7:29 AM [facility] eGFR 109 >=60 mL/min/1. 73m2 LAB CHEMISTRY METHOD 04/29/2024 7:29 AM [facility] Comment:Calculation based on the??Chronic Kidney Disease Epidemiology Collaboration (CKD-EPI) equation refit??without adjustment for race. BUN/Creatinine Ratio 16.2 LAB CHEMISTRY METHOD 04/29/2024 7:29 AM [facility] Calcium 9.7 8.5 - 10.5 mg/dL LAB CHEMISTRY METHOD 04/29/2024 7:29 AM [facility] Blood Venous blood specimen / Unknown Venipuncture / Unknown 04/29/2024 6:07 AM EST 04/29/2024 6:43 AM EST Leah Philippe NP LAB BLOOD OR DERABLES [facility] [address] [place] [address], [place] [phone] * (ABNORMAL) POCT Glucose, blood (04/28/2024 8:05 PM EST) Glucose POCT 153(H) 70 - 100 mg/dL 04/28/2024 8:[address] [facility] Blood Capillary blood specimen / Unknown 04/28/2024 8:05 PM EST 04/28/2024 8:07 PM EST Neida Bailey DO LAB POINT OF CARE TEST DOCKED DEVICE UNSOLICITED RESULTS [facility] [address] [place] [address], [place] [phone] * (ABNORMAL) POCT Glucose, blood (04/28/2024 4:03 PM EST) Glucose POCT 254(H) 70 - 100 mg/dL 04/28/2024 4:[address] [facility] Blood Capillary blood specimen / Unknown 04/28/2024 4:03 PM EST 04/28/2024 4:04 PM EST Neida Bailey DO LAB POINT OF CARE TEST DOCKED DEVICE UNSOLICITED RESULTS [facility] [address] [place] [address], * (ABNORMAL) POCT Glucose, blood (04/28/2024 11:17 AM EST) Glucose POCT 163(H) 70 - 100 mg/dL 04/28/2024 11:[address] [facility] Blood Capillary blood specimen / Unknown 04/28/2024 11:17 AM EST 04/28/2024 11:19 AM EST Neida Bailey DO LAB POINT OF CARE TEST DOCKED DEVICE UNSOLICITED RESULTS Performing Organization Address [facility] Co de Phone Number [facility] [address] [place] [address], [place] [phone] * (ABNORMAL) POCT Glucose, blood (04/28/2024 7:17 AM EST) Glucose POCT 143(H) 70 - 100 mg/dL 04/28/2024 7:[address] [facility] Blood Capillary blood specimen / Unknown 04/28/2024 7:17 AM EST 04/28/2024 7:20 AM EST [facility] POINT OF CARE TEST DOCKED DEVICE UNSOLICITED RESULTS Performing Organization Address [facility] Co de Phone Number [facility] [address] [place] [address], [place] [phone] * (ABNORMAL) POCT Glucose, blood (04/27/2024 8:17 PM EST) Glucose POCT 256(H) 70 - 100 mg/dL 04/27/2024 8:[address] [facility] Blood Capillary blood specimen / Unknown 04/27/2024 8:17 PM EST 04/27/2024 8:18 PM [facility] CARE TEST DOCKED DEVICE UNSOLICITED RESULTS Performing Organization Address [facility] Co de Phone Number [facility] [address] [place] [address], [place] [phone] * (ABNORMAL) POCT Glucose, blood (04/27/2024 4:45 PM EST) Glucose POCT 274(H) 70 - 100 mg/dL 04/27/2024 4:[address] [facility] Blood Capillary blood specimen / Unknown 04/27/2024 4:45 PM EST 04/27/2024 4:47 PM EST Neida Bailey DO LAB POINT OF CARE TEST DOCKED DEVICE UNSOLICITED RESULTS Performing Organization Address [facility]/ZIP Co de Phone Number [facility] [address] [place] [address], [place] [phone] * (ABNORMAL) POCT Glucose, blood (04/27/2024 11:11 AM EST) Glucose POCT 191(H) 70 - 100 mg/dL 04/27/2024 11:[address] [facility] Blood Capillary blood specimen / Unknown 04/27/2024 11:11 AM EST 04/27/2024 11:13 AM EST Neida Bailey [employer] LAB POINT OF CARE TEST DOCKED DEVICE UNSOLICITED RESULTS Performing Organization Address [facility] Co de Phone Number [facility] [address] [place] [address], [place] [phone] * (ABNORMAL) POCT Glucose, blood (04/27/2024 7:27 AM EST) Glucose POCT 195(H) 70 - 100 mg/dL 04/27/2024 7:[address] [facility] Blood Capillary blood specimen / Unknown 04/27/2024 7:27 AM EST 04/27/2024 7:31 AM EST eNida Bailey DO LAB POINT OF CARE TEST DOCKED DEVICE UNSOLICITED RESULTS Performing Organization Address [facility]/ZIP Co de Phone Number [facility] [address] [place] [address], [place] [phone] * (ABNORMAL) POCT Glucose, blood (04/26/2024 8:14 PM EST) Glucose POCT 267(H) 70 - 100 mg/dL 04/26/2024 8:[address] [facility] Blood Capillary blood specimen / Unknown 04/26/2024 8:14 PM EST 04/26/2024 8:16 PM EST Neida Emanuel RiveroLynn DO LAB POINT OF CARE TEST DOCKED DEVICE UNSOLICITED RESULTS [facility] [address] [place] [address], [place] [phone] * (ABNORMAL) POCT Glucose, blood (04/26/2024 4:18 PM EST) Glucose POCT 263(H) 70 - 100 mg/dL 04/26/2024 4:[address] [facility] Blood Capillary blood specimen / Unknown 04/26/2024 4:18 PM EST 04/26/2024 4:19 PM EST Neida Riveroese DO LAB POINT OF CARE TEST DOCKED DEVICE UNSOLICITED RESULTS Performing Organization Address [facility]/ZIP Co de Phone Number [facility] [address] [place] [address], [place] [phone] * (ABNORMAL) POCT Glucose, blood (04/26/2024 11:05 AM EST) Glucose POCT 228(H) 70 - 100 mg/dL 04/26/2024 11:[address] [facility] Blood Capillary blood specimen / Unknown 04/26/2024 11:05 AM EST 04/26/2024 11:12 AM EST Neida A Lynn DO LAB POINT OF CARE TEST DOCKED DEVICE UNSOLICITED RESULTS Performing Organization Address City/[facility]/ZIP Co de Phone Number [facility] [address] [place] [address], * (ABNORMAL) POCT Glucose, blood (04/26/2024 7:24 AM EST) Glucose POCT 143(H) 70 - 100 mg/dL 04/26/2024 7:[address] [facility] Blood Capillary blood specimen / Unknown 04/26/2024 7:24 AM EST 04/26/2024 7:30 AM EST Neida Emanuel [employer] LAB POINT OF CARE TEST DOCKED DEVICE UNSOLICITED RESULTS [facility] [address] [place] [address], * (ABNORMAL) POCT Glucose, blood (04/25/2024 8:00 PM EST) Glucose POCT 262(H) 70 - 100 mg/dL 04/25/2024 8:[address] [facility] Blood Capillary blood specimen / Unknown 04/25/2024 8:00 PM EST 04/25/2024 8:03 PM EST Neida Castellanos Lynn DO LAB POINT OF CARE TEST DOCKED DEVICE UNSOLICITED RESULTS [facility] [address] [place] [address], * (ABNORMAL) POCT Glucose, blood (04/25/2024 3:51 PM EST) Glucose POCT 293(H) 70 - 100 mg/dL 04/25/2024 3:[address] [facility] Blood Capillary blood specimen / Unknown 04/25/2024 3:51 PM EST 04/25/2024 3:53 PM EST Neida A Lynn DO LAB POINT OF CARE TEST DOCKED DEVICE UNSOLICITED RESULTS Performing Organization Address [facility] Co de Phone Number [facility] [address] [place] [address], * (ABNORMAL) POCT Glucose, blood (04/25/2024 11:10 AM EST) Glucose POCT 188(H) 70 - 100 mg/dL 04/25/2024 11:[address] [facility] Blood Capillary blood specimen / Unknown 04/25/2024 11:10 AM EST 04/25/2024 11:27 AM EST Neida Bailey DO LAB POINT OF CARE TEST DOCKED DEVICE UNSOLICITED RESULTS Performing Organization Address [facility] Co de Phone Number [facility] [address] [place] [address], * (ABNORMAL) POCT Glucose, blood (04/25/2024 7:36 AM EST) Glucose POCT 279(H) 70 - 100 mg/dL 04/25/2024 7:[address] [facility] Blood Capillary blood specimen / Unknown 04/25/2024 7:36 AM EST 04/25/2024 7:39 AM EST Neida Bailey DO LAB POINT OF CARE TEST DOCKED DEVICE UNSOLICITED RESULTS Performing Organization Address [facility]/ZIP Co de Phone Number [facility] [address] [place] [address], [place] [phone] * (ABNORMAL) POCT Glucose, blood (04/24/2024 8:08 PM EST) Glucose POCT 331(H) 70 - 100 mg/dL 04/24/2024 8:[address] [facility] Blood Capillary blood specimen / Unknown 04/24/2024 8:08 PM EST 04/24/2024 8:09 PM EST Neida Castellanos Lynn [facility] POINT OF CARE TEST DOCKED DEVICE UNSOLICITED RESULTS Performing Organization Address [facility]/ZIP Co de Phone Number [facility] [address] [place] [address], [place] [phone] * (ABNORMAL) POCT Glucose, blood (04/24/2024 4:07 PM EST) Glucose POCT 242(H) 70 - 100 mg/dL 04/24/2024 4:[address] [facility] Blood Capillary blood specimen / Unknown 04/24/2024 4:07 PM EST 04/24/2024 4:09 PM EST Neida Riveroese LAB POINT OF CARE TEST DOCKED DEVICE UNSOLICITED RESULTS Performing Organization Address [facility] Co de Phone Number [facility] [address] [place] [address], [place] [phone] * (ABNORMAL) POCT Glucose, blood (04/24/2024 11:12 AM EST) Glucose POCT 171(H) 70 - 100 mg/dL 04/24/2024 11:[address] [facility] Blood Capillary blood specimen / Unknown 04/24/2024 11:12 AM EST 04/24/2024 11:14 AM EST Neida Emanuel [employer] LAB POINT OF CARE TEST DOCKED DEVICE UNSOLICITED RESULTS Performing Organization Address [facility]/ZIP Co de Phone Number [facility] [address] [place] [address], [place] [phone] * (ABNORMAL) POCT Glucose, blood (04/24/2024 7:34 AM EST) Glucose POCT 129(H) 70 - 100 mg/dL 04/24/2024 7:[address] [facility] Blood Capillary blood specimen / Unknown 04/24/2024 7:34 AM EST 04/24/2024 7:38 AM EST Neidamikal Bailey DO LAB POINT OF CARE TEST DOCKED DEVICE UNSOLICITED RESULTS Performing Organization Address City/[facility]/ZIP Co de Phone Number [facility] [address] [place] [address], [place] [phone] * (ABNORMAL) POCT Glucose, blood (04/23/2024 8:21 PM EST) Glucose POCT 242(H) 70 - 100 mg/dL 04/23/2024 8:[address] [facility] Blood Capillary blood specimen / Unknown 04/23/2024 8:21 PM EST 04/23/2024 8:23 PM EST Neida Rivero[employer] LAB POINT OF CARE TEST DOCKED DEVICE UNSOLICITED RESULTS Performing Organization Address [facility] Co de Phone Number [facility] [address] [place] [address], [place] [phone] * (ABNORMAL) POCT Glucose, blood (04/23/2024 4:09 PM EST) Glucose POCT 253(H) 70 - 100 mg/dL 04/23/2024 4:[address] [facility] Blood Capillary blood specimen / Unknown 04/23/2024 4:09 PM EST 04/23/2024 4:11 PM EST Neida A Lynn DO LAB POINT OF CARE TEST DOCKED DEVICE UNSOLICITED RESULTS Performing Organization Address City/[facility]/ZIP Co de Phone Number [facility] [address] [place] [address], [place] [phone] * (ABNORMAL) POCT Glucose, blood (04/23/2024 11:31 AM EST) Glucose POCT 206(H) 70 - 100 mg/dL 04/23/2024 11:[address] [facility] Blood Capillary blood specimen / Unknown 04/23/2024 11:31 AM EST 04/23/2024 11:33 AM EST Neida Riveroese DO LAB POINT OF CARE TEST DOCKED DEVICE UNSOLICITED RESULTS Performing Organization Address City/[facility]/ZIP Co de Phone Number [facility] [address] [place] [address], [place] [phone] * POCT Glucose, blood (04/23/2024 7:14 AM EST) Glucose POCT 99 70 - 100 mg/dL 04/23/2024 7:[address] [facility] Blood Capillary blood specimen / Unknown 04/23/2024 7:14 AM EST 04/23/2024 7:15 AM EST Neida Riveroese [employer] LAB POINT OF CARE TEST DOCKED DEVICE UNSOLICITED RESULTS Performing Organization Address [facility]/ZIP Co de Phone Number [facility] [address] [place] [address], [place] [phone] * (ABNORMAL) POCT Glucose, blood (04/22/2024 8:22 PM EST) Glucose POCT 178(H) 70 - 100 mg/dL 04/22/2024 8:[address] [facility] Blood Capillary blood specimen / Unknown 04/22/2024 8:22 PM EST 04/22/2024 8:25 PM EST Neida Riveroese DO LAB POINT OF CARE TEST DOCKED DEVICE UNSOLICITED RESULTS [facility] [address] [place] [address], [place] [phone] * (ABNORMAL) POCT Glucose, blood (04/22/2024 3:59 PM EST) Glucose POCT 295(H) 70 - 100 mg/dL 04/22/2024 4:[address] [facility] Blood Capillary blood specimen / Unknown 04/22/2024 3:59 PM EST 04/22/2024 4:01 PM EST Neida [employer] LAB POINT OF CARE TEST DOCKED DEVICE UNSOLICITED RESULTS Performing Organization Address [facility] Co de Phone Number [facility] [address] [place] [address], [place] [phone] * (ABNORMAL) POCT Glucose, blood (04/22/2024 11:08 AM EST) Glucose POCT 183(H) 70 - 100 mg/dL 04/22/2024 11:[address] [facility] Blood Capillary blood specimen / Unknown 04/22/2024 11:08 AM EST 04/22/2024 11:11 AM EST Neida Bailey DO LAB POINT OF CARE TEST DOCKED DEVICE UNSOLICITED RESULTS [facility] [address] [place] [address], [place] [phone] * (ABNORMAL) POCT Glucose, blood (04/22/2024 7:27 AM EST) Glucose POCT 141(H) 70 - 100 mg/dL 04/22/2024 7:[address] [facility] Blood Capillary blood specimen / Unknown 04/22/2024 7:27 AM EST 04/22/2024 7:29 AM EST Neida Riveroese DO LAB POINT OF CARE TEST DOCKED DEVICE UNSOLICITED RESULTS Performing Organization Address City/[facility] Co de Phone Number [facility] [address] [place] [address], [place] [phone] * (ABNORMAL) POCT Glucose, blood (04/21/2024 8:16 PM EST) Glucose POCT 280(H) 70 - 100 mg/dL 04/21/2024 8:[address] [facility] Blood Capillary blood specimen / Unknown 04/21/2024 8:16 PM EST 04/21/2024 8:19 PM EST [facility] POINT OF CARE TEST DOCKED DEVICE UNSOLICITED RESULTS Performing Organization Address [facility] Co de Phone Number [facility] [address] [place] [address], [place] [phone] * (ABNORMAL) POCT Glucose, blood (04/21/2024 3:46 PM EST) Glucose POCT 198(H) 70 - 100 mg/dL 04/21/2024 3:[address] [facility] Blood Capillary blood specimen / Unknown 04/21/2024 3:46 PM EST 04/21/2024 3:59 PM EST [facility] POINT OF CARE TEST DOCKED DEVICE UNSOLICITED RESULTS Performing Organization Address City/[facility]/ZIP Co de Phone Number [facility] [address] [place] [address], [place] [phone] * (ABNORMAL) POCT Glucose, blood (04/21/2024 11:01 AM EST) Glucose POCT 162(H) 70 - 100 mg/dL 04/21/2024 11:[address] [facility] Blood Capillary blood specimen / Unknown 04/21/2024 11:01 AM EST 04/21/2024 11:05 AM EST Neida Bailey DO LAB POINT OF CARE TEST DOCKED DEVICE UNSOLICITED RESULTS Performing Organization Address [facility]/ZIP Co de Phone Number [facility] [address] [place] [address], [place] [phone] * POCT Glucose, blood (04/21/2024 7:19 AM EST) Glucose POCT 92 70 - 100 mg/dL 04/21/2024 7:[address] [facility] Blood Capillary blood specimen / Unknown 04/21/2024 7:19 AM EST 04/21/2024 7:22 AM EST Neidamikal Bailey DO LAB POINT OF CARE TEST DOCKED DEVICE UNSOLICITED RESULTS Performing Organization Address [facility] Co de Phone Number [facility] [address] [place] [address], [place] [phone] * (ABNORMAL) POCT Glucose, blood (04/20/2024 7:59 PM EST) Glucose POCT 282(H) 70 - 100 mg/dL 04/20/2024 8:[address] [facility] Blood Capillary blood specimen / Unknown 04/20/2024 7:59 PM EST 04/20/2024 8:17 PM EST Neida Bailey [employer] LAB POINT OF CARE TEST DOCKED DEVICE UNSOLICITED RESULTS Performing Organization Address City/[facility]/ZIP Co de Phone Number [facility] [address] [place] [address], [place] [phone] * (ABNORMAL) POCT Glucose, blood (04/20/2024 3:39 PM EST) Glucose POCT 180(H) 70 - 100 mg/dL 04/20/2024 3:[address] [facility] Blood Capillary blood specimen / Unknown 04/20/2024 3:39 PM EST 04/20/2024 3:41 PM EST Neida Riveroese DO LAB POINT OF CARE TEST DOCKED DEVICE UNSOLICITED RESULTS [facility] [address] [place] [address], [place] [phone] * (ABNORMAL) POCT Glucose, blood (04/20/2024 11:01 AM EST) Glucose POCT 183(H) 70 - 100 mg/dL 04/20/2024 11:[address] [facility] Blood Capillary blood specimen / Unknown 04/20/2024 11:01 AM EST 04/20/2024 11:13 AM EST Neida Riveroese LAB POINT OF CARE TEST DOCKED DEVICE UNSOLICITED RESULTS Performing Organization Address [facility]/ZIP Co de Phone Number [facility] [address] [place] [address], [place] [phone] * POCT Glucose, blood (04/20/2024 7:31 AM EST) Glucose POCT 85 70 - 100 mg/dL 04/20/2024 7:[address] [facility] Blood Capillary blood specimen / Unknown 04/20/2024 7:31 AM EST 04/20/2024 7:36 AM EST Neida Riveroese DO LAB POINT OF CARE TEST DOCKED DEVICE UNSOLICITED RESULTS Performing Organization Address City/[facility]/ZIP Co de Phone Number [facility] [address] [place] [address], * (ABNORMAL) CBC auto differential (04/20/2024 5:44 AM EST) [facility] WBC 9.0 4.8 - 10.8 K/mcL LAB HEMETOLOGY METHOD 04/20/2024 6:46 AM [facility] RBC 4.60 3.80 - 4.80 M/mcL LAB HEMETOLOGY METHOD 04/20/2024 6:46 AM [facility] Hemoglobin 13.5 11.5 - 16.0 g/dL LAB HEMETOLOGY METHOD 04/20/2024 6:46 AM [facility] Hematocrit 41.1 35.0 - 47.0 % LAB HEMETOLOGY METHOD 04/20/2024 6:46 AM [facility] MCV 89.0 79.0 - 98.0 FL LAB HEMETOLOGY METHOD 04/20/2024 6:46 AM [facility] MCH 29.2 27.0 - 32.0 pcg LAB HEMETOLOGY METHOD 04/20/2024 6:46 AM [facility] MCHC 32.8 32.0 - 37.0 g/dL LAB HEMETOLOGY METHOD 04/20/2024 6:46 AM [facility] RDW 12.7 11.0 - 15.0 % LAB HEMETOLOGY METHOD 04/20/2024 6:46 AM [facility] Platelets 310 130 - 400 K/mcL LAB HEMETOLOGY METHOD 04/20/2024 6:46 AM [facility] MPV 11.8(H) 7.0 - 11.0 FL LAB HEMETOLOGY METHOD 04/20/2024 6:46 AM [facility] NRBC 0.0 <1.0 % LAB HEMETOLOGY METHOD 04/20/2024 6:46 AM [facility] NRBC Absolute 0.00 <0.10 K/mcL LAB HEMETOLOGY METHOD 04/20/2024 6:46 AM [facility] Neutrophils Relative 78.2 % LAB HEMETOLOGY METHOD 04/20/2024 6:46 AM [facility] Lymphocytes Relative 12.8 % LAB HEMETOLOGY METHOD 04/20/2024 6:46 AM [facility] Monocytes Relative 7.6 % LAB HEMETOLOGY METHOD 04/20/2024 6:46 AM [facility] Eosinophils Relative 0.9 % LAB HEMETOLOGY METHOD 04/20/2024 6:46 AM [facility] Basophils Relative 0.2 % LAB HEMETOLOGY METHOD 04/20/2024 6:46 AM [facility] Immature Granulocytes Relative 0.3 % LAB HEMETOLOGY METHOD 04/20/2024 6:46 AM [facility] Neutrophils Absolute 7.05(H) 1.50 - 7.00 K/mcL LAB HEMETOLOGY METHOD 04/20/2024 6:46 AM [facility] Lymphocytes Absolute 1.16 1.00 - 5.00 K/mcL LAB HEMETOLOGY METHOD 04/20/2024 6:46 AM [facility] Monocytes Absolute 0.69 0.20 - 1.00 K/mcL LAB HEMETOLOGY METHOD 04/20/2024 6:46 AM [facility] Eosinophils Absolute 0.08 0.00 - 0.50 K/mcL LAB HEMETOLOGY METHOD 04/20/2024 6:46 AM [facility] Basophils Absolute 0.02 0.00 - 0.20 K/mcL LAB HEMETOLOGY METHOD 04/20/2024 6:46 AM [facility] Immature Granulocytes Absolute 0.03 0.00 - 0.03 K/mcL LAB HEMETOLOGY METHOD 04/20/2024 6:46 AM [facility] Blood Venous blood specimen / Unknown Venipuncture / Unknown 04/20/2024 5:44 AM EST 04/20/2024 6:35 AM EST Kelby SALINAS LAB BLOOD ORDERABLES [facility] [address] [place] [address], * Comprehensive metabolic panel (04/20/2024 5:44 AM EST) Sodium 140 133 - 145 mmol/L LAB CHEMISTRY METHOD 04/20/2024 7:03 AM [facility] Potassium 3.8 3.5 - 5.5 mmol/L LAB CHEMISTRY METHOD 04/20/2024 7:03 AM [facility] Chloride 106 96 - 110 mmol/L LAB CHEMISTRY METHOD 04/20/2024 7:03 AM [facility] CO2 28 21 - 32 mmol/L LAB CHEMISTRY METHOD 04/20/2024 7:03 AM [facility] Anion Gap 6 3 - 11 LAB CHEMISTRY METHOD 04/20/2024 7:03 AM [facility] Glucose 91 70 - 100 mg/dL LAB CHEMISTRY METHOD 04/20/2024 7:03 AM [facility] BUN 16 5 - 25 mg/dL LAB CHEMISTRY METHOD 04/20/2024 7:03 AM [facility] Creatinine 0.70 0.50 - 1.10 mg/dL LAB CHEMISTRY METHOD 04/20/2024 7:03 AM [facility] eGFR 108 >=60 mL/min/1. 73m2 LAB CHEMISTRY METHOD 04/20/2024 7:03 AM [facility] Comment:Calculation based on the??Chronic Kidney Disease Epidemiology Collaboration (CKD-EPI) equation refit??without adjustment for race. BUN/Creatinine Ratio 22.9 LAB CHEMISTRY METHOD 04/20/2024 7:03 AM [facility] Calcium 9.6 8.5 - 10.5 mg/dL LAB CHEMISTRY METHOD 04/20/2024 7:03 AM [facility] AST (SGOT) 27 10 - 42 unit/L LAB CHEMISTRY METHOD 04/20/2024 7:03 AM [facility] ALT (SGPT) 32 10 - 60 unit/L LAB CHEMISTRY METHOD 04/20/2024 7:03 AM [facility] Alkaline Phosphatase 89 42 - 121 unit/L LAB CHEMISTRY METHOD 04/20/2024 7:03 AM [facility] Total Protein 6.3 6.0 - 8.0 g/dL LAB CHEMISTRY METHOD 04/20/2024 7:03 AM [facility] Albumin 3.2 3.2 - 5.0 g/dL LAB CHEMISTRY METHOD 04/20/2024 7:03 AM [facility] Total Bilirubin 0.6 0.0 - 1.4 mg/dL LAB CHEMISTRY METHOD 04/20/2024 7:03 AM [facility] Blood Venous blood specimen / Unknown Venipuncture / Unknown 04/20/2024 5:44 AM EST 04/20/2024 6:35 AM EST Kelby SALINAS LAB BLOOD ORDERABLES [facility] [address] [place] [address], * (ABNORMAL) POCT Glucose, blood (04/19/2024 8:29 PM EST) Glucose POCT 318(H) 70 - 100 mg/dL 04/19/2024 8:[address] [facility] Blood Capillary blood specimen / Unknown 04/19/2024 8:29 PM EST 04/19/2024 8:32 PM EST Neida Riveroese DO LAB POINT OF CARE TEST DOCKED DEVICE UNSOLICITED RESULTS Performing Organization Address City/[facility]/ZIP Co de Phone Number [facility] [address] [place] [address], [place] [phone] * (ABNORMAL) POCT Glucose, blood (04/19/2024 5:48 PM EST) Glucose POCT 259(H) 70 - 100 mg/dL 04/19/2024 5:[address] [facility] Blood Capillary blood specimen / Unknown 04/19/2024 5:48 PM EST 04/19/2024 5:49 PM EST Neida Riveroese LAB POINT OF CARE TEST DOCKED DEVICE UNSOLICITED RESULTS Performing Organization Address [facility] Co de Phone Number [facility] [address] [place] [address], [place] [phone] documented in this encounter Visit Diagnoses Diagnosis Stroke ([facility]) [I63.9]- Primary Unspecified cerebral artery occlusion with cerebral infarction HTN (hypertension) Unspecified essential hypertension DM (diabetes mellitus) ([facility]) Type II or unspecified type diabetes mellitus without mention of complication, not stated as uncontrolled CVA (cerebral vascular accident) ([facility]) Unspecified cerebral artery occlusion with cerebral infarction [...] 2,000 Units, oral, Daily, First dose on 05/19/24 at 1045, 1000 units = 25 mcg of cholecalciferol (VITAMIN D3) Given 05/31/2024 8:06 AM EST 2,000 Units Given 05/30/2024 8:15 AM EST 2,000 Units Given 05/29/2024 8:09 AM EST 2,000 Units clopidogreL (PLAVIX) tablet 75 mg 75 mg, oral, Daily, First dose on Mon04/20/24 at 0900, Indications: cerebral thromboembolism prevention Given 05/31/2024 8:06 AM EST 75 mg Given 05/30/2024 8:15 AM EST 75 mg Given 05/29/2024 8:09 AM EST 75 mg cyanocobalamin (VITAMIN B-12) injection 1,000 mcg 1,000 mcg, intramuscular, Daily, First dose on Mon05/19/24 at 1300, For 5 days Given 05/23/2024 [...] 40 mg, subcutaneous, Daily, First dose on 04/20/24 at 1400, Indication: VTE/PE Prophylaxis Given 05/07/2024 9:23 AM EST 40 mg Right Lower Abdomen Given 05/06/2024 8:51 AM EST 40 mg Le ft Upper Abdomen Given 05/05/2024 8:02 AM EST 40 mg Le ft Lower Abdomen enoxaparin (LOVENOX) injection 40 mg 40 mg, subcutaneous, Every 24 hours scheduled, First dose on 05/12/24 at 1230, Indication: VTE/PE Prophylaxis Given 05/31/2024 [...] Nightly, First dose (after last modification) on Mel 05/02/24 at 2100, Notify provider: -If patient is [...] times daily before meals, First dose on 04/21/24 at 1130, Indication: Total Daily Dose (TDD) [...] times daily before meals, First dose on 05/06/24 at 1130, Indication: Total Daily Dose (TDD) [...] 6 hours PRN, severe pain, Starting on 05/06/24 at 0845 Given 05/06/2024 8:32 PM EST [...] 2050 (Given - Provider: Neto Luna RN) 210 (Given - Provider: Catherine Medley RN) cholecalciferol [...] 0806 (Given - Provider: Josephine Maldonado RN) cyanocobalamin (VITAMIN B-12) tablet 1,000 mcg 1,000 [...] Maldonado RN)1117 (Not Given - Provider: Josephine Madlonado RN - Reason: Order parameters not met [...] Provider: Josephine Maldonado RN - Comment: low back)210 (Patch Removed - Provider: Catherine Medley RN) 08 (Patch Applied - Provider: Josephine Maldonado RN [...] RN) 0815 (Given - Provider: Josephine Maldonado RN)210 (Given - Provider: Catherine Medley RN) 0806 (Given - Provider: Josephine Maldonado RN) metFORMIN (GLUCOPHAGE) tablet 500 mg 500 mg, oral, 2 times daily with meals, First dose on Mon04/28/24 at 1700, Indications: type 2 diabetes mellitus 0810 (Given - Provider: Josephine Maldonado RN)1700 (Given - Provider: Neto Luna RN) 0815 (Given - Provider: Josephine Maldonado RN)1703 (Given - Provider: Catherine Medley RN) 08 (Given - Provider: Josephine Maldonado RN) PRN [...] documented as of this encounter Care Teams Senior Data Scientist Relationship Specialty Start Date End Date Sherin Garcia MD [address] [place] [id number] PCP - General Family Medicine 05/09/24 documented as of this encounter
--- OUTSIDE RECORDS SUMMARY | 2024-06-12 17:51 | XMS_ITS | Encounter Summary ---
Author Organization [employer] Address [address] [place] [address] Care Team Providers Care [employer] Biology Teacher Name Role Phone Unavailable Primary Care Provider Unavailabl e Reason for Visit * Reason Comments [facility] Of Care (Tcm) [facility] Encounter Details Date Type Department Care Team ([facility] st Contact Info) Description 05/14/2024 Telephone [facility] CH[facility] MED & PEDS [address] [place] [address] Sherin Garcia MD [address] [place] [address] Transition Of Care (Tcm) (REGARDING: CALL TO [facility]) Social History Tobacco Use Types [...] 8:55 AM EST HAL Paredes Received a [facility] Re[facility] summary but not a discharge summary. [facility] [phone] answered call, narrative writer asked Jorden if patient was discharge or still admitted due to receiving some paperwork from [facility]. Per Jorden noticed a Doctor had faxed [...] 9:00 AM EST Office Visit [facility] ADULT DENTAL [address] [place] [address] Leona Acosta, DDS [address] [place] [address] 07/15/2024 11:15 AM EST Office Visit [facility] CHC MED & PEDS [address] [place] [place], [place] [phone] Erlinda Hernandez, PLASTICS TOOLING ENGINEER [address], [place] [phone] documented as of this encounter Visit Diagnoses Not on filedocumented in this encounter
--- OUTSIDE RECORDS SUMMARY | 2024-06-12 17:51 | XMS_ITS | Encounter Summary ---
Author Organization [facility] Address [address] [place] [address] Care Team Providers Care Ciso Name Role Phone Sherin Garcia MD Primary Care Provider [phone] Encounter Details Date Type Department Care Team ([facility] st Contact Info) Description 05/27/2024 Plan of Care Documentation [facility]patient Rehab [address] [place] [id number] Social History Tobacco Use Types Packs/Day Years [...] *No Product type* / Admitting Diagnosis: Stroke ([facility]) [I63.9] Admit Date/Time: 04/19/2024 5:41 PM Primary Rehab (Etiologic) Diagnosis: Patient Active Problem List Diagnosis HTN (hypertension) DM (diabetes mellitus) ([facility]) CVA (cerebral vascular accident) ([facility]) Team Discussion UPDATES: Physician: Stroke, [...] Can walk with therapy/family. W/C level alone. ANGLESMITH HELPER: Tyrell Castellanos for cog CM: New PCP appt scheduled, [...] physical therapy, occupational therapy, speech therapy, social group worker, and nursing daily Equipment Needed: SBQC, AFO, [...] CARE Score - Sit to Stand: 4 Chair/Ucs-nt-Kyhvq Transfer Assistance Needed: Supervision, Incidental touching Physical Assistance Level: 25% or less Comment: L knee buckling CARE Score - Chair/Hbb-tn-Nshnh Transfer: 4 Car Transfer Reason if not [...] place, and person Communication/Sensory: Visual (Glasses)/hearing deficit, Non-Frisian patient/unable to speak/slurred speech Behavior: Appropriate behavior [...] Comments: Pt reporting completion of MBSS at [facility] prior to admission to rehab. Obtainedreport from [facility] and reviewed report. 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 Pt engaged in a conversation about herspeech and reported that she feels like her speech is getting better but it is not back at baseline. Will continue to target in future sessions. ANGLESMITH HELPER Assessment Results: Cognitive impairments Prognosis: Good Barriers to Discharge: (cognitive impairments, language barrier) Evaluation/Treatment Tolerance: Patient tolerated treatment well Plan Treatment/Interventions: Cognitive linguistic functioning ANGLESMITH HELPER Plan: Skilled ANGLESMITH HELPER Discharge Recommendations: Outpatient ANGLESMITH HELPER Diet Recommendations: Regular solids/thin liquids Barriers to Discharge: (cognitive impairments, language barrier) Bottoming Room Supervisor's Assessment Adult diet [facility]; Cardiac, Diabetic; 60 gm carb/Meal; Cardiac Assessment [...] medicationsat home as they were . Appetite SUBCONTRACTS MANAGER: Good Intake SUBCONTRACTS MANAGER: Stable Nutrition Diagnosis Status: Improvement Diagnosis: Altered Nutrition-Related Lab Values Etiology: Endocrine dysfunction Symptoms: POCs 92-280, A1C 12 Nutrition Interventions: Diet Order, Nutrition Education Nutrition Education: Low Sodium, Consistent Carb Monitoring/Evaluation: Fluid/Beverage Intake, Food Intake, Weight, Diet Order Physician Attestation: Neida Rubin, , have led the team conference and agree with the results, findings, and decisions made by the interdisciplinary team. documented in this encounter Plan of Treatment Upcoming Encounters Date Type Department Care Team (Late st Contact Info) Description 06/26/2024 9:30 AM EST Appointment [facility] at [address] [phone] documented as of this encounter Visit Diagnoses Not on filedocumented in this encounter Additional Health Concerns Assessment Noted Time PHQ-9 Depression Total Score: 1 04/22/20 8:26 AM EST documented as of this encounter Care Teams Ciso Relationship Specialty Start Date End Date Sherin Garcia MD [address] [place] [phone] PCP - General Family Medicine 05/09/24 documented as of this encounter
[2024-06-12 18:13] LABS: Creatinine Urine 112.49 mg/dL; Microalbum/Creatinine Ratio Ur 25.7 ug/mg cr (<30)
[2024-06-13 18:48] LABS: CT PCR NOT DETECTED (Not Detect.); NG PCR NOT DETECTED (Not Detect.)
== END 2024-06-12 16:16 | disposition home or self-care (01) ==
LOC: HO.CHCLNP 16:15
PROVIDERS: Visit Provider Registered Nurse
DX: Z00.00 Encounter for general adult medical examination without abnormal findings (principal)
CPT/HCPCS: 82043; 82570; 87491; 87591